=== PATIENT | male | born 1950 | race Caucasian/White ===

== ENCOUNTER 2023-03-17 04:07 | Outpatient (CLI) | payer OTHER, SELFPAY ==
--- OUTSIDE RECORDS SUMMARY | 2023-03-24 08:27 | XMS_ITS | Referral Summary ---
Author Name Unknown Organization [facility] Address [address] [place] [id number] Care Team Providers Care Forest Technician Name Role Phone [facility] Primary Care Provider Allergies Active Allergy Reactions Criticality Noted Date Comments Nuts 04/22/2017 Medications Medication Sig Dispensed Refills Start Date End Date Status LISINOPRIL PO Take 2.5 mg by mouth daily 0 Active tamsulosin (FLOMAX) 0.4 MG capsule Take 0.4 mg by mouth daily 0 Active Active Problems Problem Noted Date Diagnosed Date Renal failure 04/11/2017 Social History Tobacco Use Types Packs/Day Years Used Date Smoking Tobacco: Never Smokeless Tobacco: Never Alcohol Use Standard Drinks/Week Comments No 0 (1 standard drink = 0.6 oz pur e alcohol) Sex and Gender Information Value Date Recorded Sex Assigned at Not on file Gender Identity Not on file Sexual Orientation Not on file Last Filed Vital Signs Vital Sign Reading Time Taken Comments Blood Pressure 153/101 04/22/2017 7:43 AM SIDE HEMMER Pulse 73 04/21/2017 10:40 AM SIDE HEMMER Temperature 36.6 ??C (97.8 ??F) 04/22/2017 2:59 AM CS T Respiratory Rate 18 04/22/2017 2:59 AM SIDE HEMMER Oxygen Saturation 97% 04/22/2017 2:59 AM SIDE HEMMER Inhaled Oxygen Concentration - - Weight 117.9 kg (260 lb) 04/22/2017 2:59 AM SIDE HEMMER Height 182.9 cm (6') 04/22/2017 2:59 AM SIDE HEMMER Body Mass Index 35.26 04/22/2017 2:59 AM SIDE HEMMER Plan of Treatment Not on file Advance Directives For more information, please contact: [phone] Documents on File Type Date Recorded Patient Training Administrator Expl anation Advance Directives and Living Will 04/11/2017 4:52 PM HEALTHCARE DIRECTIVE 09-09-11 Latest Code Status on File Code Status Date Activated Date Inactivated Comments Full Code 04/13/2017 9:59 AM Code Status History Code Status Date Activated Date Inactivated Comments DNR/DNI 04/11/2017 1:47 PM 04/13/2017 9:59 AM Care Teams Forest Technician Relationship Specialty Start Date End Date Clinic, [place], [place] PCP - General 04/11/17
--- OUTSIDE RECORDS SUMMARY | 2023-03-24 08:27 | XMS_ITS | Referral Summary ---
Author Name Unknown Organization [facility] Address [address] [place] [address] Care Team Providers Care Qc Analyst Name Role Phone Elsewhere, Pcp Primary Care Provider Unavailabl e Source Comments Patient records contain information from all sites at [facility]. For routine questions regarding patient records, call [phone] during business hours, M-F 8:00 AM - 5:00 PM Central Time. Record requests for emergency care only can be directed to [phone] at any time.[facility] Allergies No known active allergies Medications Medication Sig Dispensed Refills Start Date End Date Status tamsulosin (FLOMAX) 0.4 mg 24 hr capsule Take 0.4 mg by mouth daily. 0 Active ascorbic acid, vitamin C, (VITAMIN C) 500 mg tablet Take 1 tablet (500 mg total) by mouth daily. 90 tablet 3 01/28/2022 Active benzonatate (TESSALON PERLES) 100 mg capsule Take 1 capsule (100 mg total) by mouth 3 (three) times a day. 20 capsule 0 01/28/2022 Active zinc sulfate (ZINCATE) 220 (50 mg zinc) capsule Take 1 capsule (220 mg total) by mouth daily with breakfast. 30 capsule 0 01/28/2022 Active Active Problems Problem Noted Date Diagnosed Date Hernia Inguinal Left 01/27/2022 Diarrhea 01/25/2022 Last Assessment & Plan: C-d iff pending 01/26 C-diff negative. Pancreatitis Acute 01/25/2022 Last Assessment & Plan: CT of abdomen and Chest. 01/26 pending Influenza 01/24/2022 Last Assessment & Plan: Hard to breath 01/25/2201/26 on high flow oxygen. Wants to go home, slept poor. 01/[address] 01/28 discharge home. Pneumonia 01/24/2022 Last Assessment & Plan: IV antibiotics. Switch to PO meds on 01/27 Hyponatremia 01/24/2022 Last Assessment & Plan: Change diet 01/26 to sodium unrestricted. Obesity Body Mass Index 30-39.9 Adult 01/24/2022 Hypoxia 01/24/2022 Last Assessment & Plan: 01/25 high flow oxygen Hypertension Essential Primary 01/24/2022 Last Assessment & Plan: 01/25 low 01/26 BP normal now 01/27 hold BP pill Social History Tobacco Use Types Packs/Day Years Used Date Smoking Tobacco: Never Tobacco Cessation:Counseling Given: Not Answered Nutrition Answer Date Recorded Nutrition: EVOO Fat Source Unknown 01/24 Nutrition: Servings of Fruits/Vegetables per Day Not on file 01/24/2022 Dental Answer Date Recorded Dental: Regular Dentist Unknown 01/25/20 Sex and Gender Information Value Date Recorded Sex Assigned at Not on file Gender Identity Not on file Sexual Orientation Not on file Last Filed Vital Signs Vital Sign Reading Time Taken Comments Blood Pressure 137/83 01/28/2022 8:12 AM DIRECTOR SOFTWARE QUALITY ASSURANCE Pulse 54 01/28/2022 8:12 AM DIRECTOR SOFTWARE QUALITY ASSURANCE Temperature 36.9 ??C (98.4 ??F) 01/28/2022 8:12 AM CS T Respiratory Rate 29 01/28/2022 8:12 AM DIRECTOR SOFTWARE QUALITY ASSURANCE Oxygen Saturation 94% 01/28/2022 8:12 AM DIRECTOR SOFTWARE QUALITY ASSURANCE Inhaled Oxygen Concentration - - Weight 111 kg (244 lb 11.4 oz) 01/24/2022 5:19 P M DIRECTOR SOFTWARE QUALITY ASSURANCE Height 182.9 cm (6') 01/24/2022 5:19 PM DIRECTOR SOFTWARE QUALITY ASSURANCE Body Mass Index 33.19 01/24/2022 5:19 PM DIRECTOR SOFTWARE QUALITY ASSURANCE Plan of Treatment Not on file Advance Directives For more information, please contact: [phone] Latest Code Status on File Code Status Date Activated Date Inactivated Comments Full Code 01/24/2022 6:47 PM 01/28/2022 2:07 PM Question Answer Comments Full Code: Discussed Code Status History Code Status Date Activated Date Inactivated Comments Full Code 01/24/2022 6:45 PM 01/24/2022 6:47 PM Question Answer Comments Full Code: Discussed Care Teams Qc Analyst Relationship Specialty Start Date End Date Elsewhere, Pcp PCP - General 02/08/18
--- OUTSIDE RECORDS SUMMARY | 2023-03-24 08:27 | XMS_ITS | Encounter Summary ---
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 Affairs Organization Department of [facility] Address [address] [place] [address] Support Name Relationship Address Phone DOREEN WAGNER Next of Kin [address] [place] [phone] DOREEN Emergency Contact [address] [place] [phone] Insurance Providers: All historical and current Section Date Range: From patient's date of to the date document was created. This section includes the names of all active insurance providers for the patient. Insurance Provider Type of Coverage Plan Name Start of Policy Coverage End of Policy Coverage Group Number Member ID Insurance Provider's Telephone Number Policy [place]'s Name Patient's Relationship to Policy [place] [facility] MEDICARE ADVANTAGE MCR ([facility]) June 26, 2016 [id number] CARSONJOAN ROWELL PATIENT [facility] MEDICARE ADVANTAGE MCR ([facility]) June 26, 2016 [id number] JOAN WAGNER KARSTEN PATIENT [facility] ([facility]) MEDICARE ADVANTAGE MCR ([facility]) June 26, 2016 [id number] JOAN WAGNER PATIENT Selected Encounter This section includes the information on record at ID for the Encounter. Date/Time Encounter Type Encounter Description Reason Provider Source July 23, 2022 12:10 PM OFF/OP EST MAY X REQ PHY/QHP ANESTHESIA PRE/POST-OP CONSULT ICD-10-CM R52 Pain, unspecified SAMMY SHAFFER Encounter Template Text not used by ID Assessments - Encounter Diagnoses This section includes the primary and secondary diagnoses documented for the Encounter. Date/Time Primary/Secondary Diagnosis Diagnosis Name Provider Source July 23, 2022 12:14 PM PRIMARY Pain, unspecified SAMMY SHAFFER [facility] Plan of Treatment: Future Appointments (+ 6 months) and Future Tests (+/- 45 days) The Plan of Treatment section includes future care activities for the patient [facility] This section includes future appointments and future orders which are active, pending or scheduled. Future Appointments This section includes appointments that were scheduled to occur 6 months from the date of the Encounter, up to a maximum of 20 appointments. The data comes from all [facility]. Appointment Date/Time Appointment Type Appointme nt Facility Name Jul 28, 2022 10:45 AM AMBULATORY - MEDICINE [facility] Aug 13, 2022 06:13 PM AMBULATORY - MEDICINE [facility] Aug 23, 2022 09:30 AM AMBULATORY - SURGERY [facility] Aug 23, 2022 09:45 AM AMBULATORY - NONE [facility] Aug 23, 2022 10:30 AM AMBULATORY - MEDICINE [facility] Aug 23, 2022 10:31 AM AMBULATORY - MEDICINE [facility] Sep 06, 2022 10:15 AM AMBULATORY - SURGERY [facility] Oct 25, 2022 07:00 AM AMBULATORY - NONE [facility] Oct 25, 2022 07:30 AM AMBULATORY - SURGERY [facility] Oct 25, 2022 09:00 AM AMBULATORY SURGERY [facility] Active, Pending, and Scheduled Orders This section includes a listing of several types of active, pending, and scheduled orders, including clinic medications orders, diagnostic test orders, procedure orders and consult orders; where the start date of the order is 45 days before the date of the Encounter or 45 days after the date of theEncounter. The data comes from all [facility]. Test Date/Time Test Type Test Details Facility Name Jun 12, 2022 12:00 AM Laboratory - Chemistry Order COMPREHENSIVE METABOLIC PANEL+MG PLASMA ONCO SP ONCE [facility] Jun 12, 2022 12:00 AM Laboratory - Chemistry Order CBC & DIFF BLOOD ONCO SP ONCE [facility] Jun 12, 2022 12:00 AM Laboratory - Chemistry Order TSH W/REFLEX TO FREE T4 PLASMA ONCO SP ONCE [facility] July 14, 2022 12:00 AM Laboratory - Blood Bank Order ABO/RH - LAB BLOOD [facility] July 14, 2022 02:05 PM Laboratory - Blood Bank Order TYPE & SCREEN - LAB BLOOD [facility] Aug 07, 2022 11:23 AM Laboratory - Chemistry Order DRUG SCREEN PANEL,URINE URINE ONCE [facility] Aug 23, 2022 10:47 AM Laboratory - Chemistry Order URINALYSIS URINE ER STAT [facility] Lab Results: +/- 30 days of the encounter This section includes the Chemistry and Hematology Lab Results on record with ID for the patient. Radiology Reports and Pathology Reports are provided separately, in subsequent sections. Lab Results This section contains the Chemistry/Hematology Results that were resulted 30 days before or 30 daysafter the date of the Encounter. Date/Time Source Result Type Result - Unit Interpretation Reference Range Comment July 19, 2022 04:40 PM [facility] FINGERSTICK GLUCOSE Specimen Type: BLOOD Comment: Save Result Nurse Notified Ordering Provider: MACKENZIE COTTER Report Released Date/Time: July 19, 2022 05:00 PM Reporting Lab: [facility] [phone] Performing Lab: [facility] [address] FINGERSTICK GLUCOSE 132 70-100 July 19, 2022 07:13 AM [facility] COMPREHENSIVE METABOLIC PANEL+MG Specimen Type: PLASMA No comment entered. Ordering Provider: MACKENZIE COTTER Report Released Date/Time: July 18, 2022 05:40 PM Reporting Lab: [facility] [address] Performing Lab: [facility] [address] CREATININE 0.9 0.7-1.2 UREA NITROGEN 24 8-26 GLUCOSE 129 H 70-100 SODIUM 136 136-145 POTASSIUM 4.1 3.5-5.1 CHLORIDE 104 98-107 CO2 28 22-29 CALCIUM 8.0 L 8.4-10.2 PROTEIN,TOTAL 5.0 L 6.0-8.3 ALBUMIN 2.9 L 3.5-5.2 BILIRUBIN, TOTAL 1.0 0.2-1.2 MAGNESIUM 1.8 1.6-2.6 ANION GAP 4 L 5-15 ALKALINE PHOSPHATASE 49 40-150 ALT/SGPT 11 See_Commen t AST/SGOT 20 See_Commen t .CREAT EGFR(CKD-EPI) 90 See_Commen t July 19, 2022 07:13 AM [facility] IRON GROUP Specimen Type: SERUM No comment entered. Ordering Provider: MACKENZIE COTTER Report Released Date/Time: July 18, 2022 05:40 PM Reporting Lab: [facility] [phone] Performing Lab: [facility] [address] IRON 28 L 65-175 TIBC,CALCULATE D 223 L 250-425 FERRITIN 73.7 21.8-274.7 IRON SATURATION 13 L 20-50 TRANSFERRIN 178 163-382 July 19, 2022 07:13 AM [facility] CBC Specimen Type: BLOOD No comment entered. Ordering Provider: MACKENZIE COTTER Report Released Date/Time: July 18, 2022 05:40 PM Reporting Lab: [facility] [address] Performing Lab: [facility] [address] WBC 7.73 4.0-11.0 RBC 2.42 L 4.6-6.2 HGB 8.2 L 13.5-17.9 HCT 23.8 L 41-54 MCV 98.3 80-100 MCH 33.9 H 27-33 MCHC 34.5 32.0-37.5 PLT 155 150-400 MPV 9.6 7.4-10.4 RDW 13.5 11.5-14.5 July 19, 2022 05:44 AM [facility] FINGERSTICK GLUCOSE Specimen Type: BLOOD Comment: Save Result Nurse Notified Ordering Provider: MACKENZIE COTTER Report Released Date/Time: July 19, 2022 11:54 AM Reporting Lab: [facility] [phone] Performing Lab: [facility] [address] FINGERSTICK GLUCOSE 137 70-100 July 18, 2022 10:51 PM [facility] FINGERSTICK GLUCOSE Specimen Type: BLOOD Comment: Save Result Nurse Notified Ordering Provider: MACKENZIE COTTER Report Released Date/Time: July 18, 2022 11:06 PM Reporting Lab: [facility] [address] Performing Lab: [facility] [address] FINGERSTICK GLUCOSE 163 70-100 July 17, 2022 06:51 AM [facility] BASIC METABOLIC PANEL+MG Specimen Type: PLASMA No comment entered. Ordering Provider: DANG VALLE R Report Released Date/Time: July 16, 2022 09:37 AM Reporting Lab: [facility] [address] Performing Lab: [facility] [address] CREATININE 0.8 0.7-1.2 UREA NITROGEN 23 8-26 GLUCOSE 107 H 70-100 SODIUM 139 136-145 POTASSIUM 3.9 3.5-5.1 CHLORIDE 106 98-107 CO2 28 22-29 CALCIUM 9.1 8.4-10.2 MAGNESIUM 1.9 1.6-2.6 ANION GAP 5 5-15 .CREAT EGFR(CKD-EPI) >90 See_Commen t July 17, 2022 06:51 AM [facility] PROTHROMBIN TIME/INR Specimen Type: PLASMA No comment entered. Ordering Provider: DANG VALLE R Report Released Date/Time: July 16, 2022 09:37 AM Reporting Lab: [facility] [address] Performing Lab: [facility] [address] .INR 1.0 0.8-1.1 .PT 11.5 9.4-12.5 July 17, 2022 06:51 AM [facility] CBC Specimen Type: BLOOD No comment entered. Ordering Provider: DANG VALLE R Report Released Date/Time: July 16, 2022 09:37 AM Reporting Lab: [facility] [address] Performing Lab: [facility] [address] WBC 6.05 4.0-11.0 RBC 3.77 L 4.6-6.2 HGB 12.7 L 13.5-17.9 HCT 36.0 L 41-54 MCV 95.5 80-100 MCH 33.7 H 27-33 MCHC 35.3 32.0-37.5 PLT 179 150-400 MPV 9.4 7.4-10.4 RDW 13.2 11.5-14.5 July 13, 2022 11:22 AM [facility] COVID-19 AND FLU/RSV DIAG PANEL(CEPHEID) Specimen Typ e: NASOPHARYNGEAL Comment: Cepheid GeneXpert (618) Ordering Provider: WHITNEY ANDERSON Report Released Date/Time: July 13, 2022 11:04 AM Reporting Lab: [facility] [address] Performing Lab: [facility] [address] COVID-19 (CEPHEID) Not Detected Not Detected INFLUENZA A (PCR) Not Detected Not Detected INFLUENZA B (PCR) Not Detected Not Detected RSV (PCR) Not Detected Not Detected July 13, 2022 11:00 AM [facility] C-REACTIVE PROTEIN Specimen Type: SERUM Comment: Automated Differential Performed Ordering Provider: WHITNEY ANDERSON Report Released Date/Time: July 13, 2022 11:04 AM Reporting Lab: [facility] [address] Performing Lab: [facility] [address] C-REACTIVE PROTEIN 1.17 <5.00 July 13, 2022 11:00 AM [facility] PROTHROMBIN TIME/INR Specimen Type: PLASMA No comment entered. Ordering Provider: WHITNEY ANDERSON Report Released Date/Time: July 13, 2022 11:04 AM Reporting Lab: [facility] [address] Performing Lab: [facility] [address] .INR 0.9 0.8-1.1 .PT 11.1 9.4-12.5 July 13, 2022 11:00 AM [facility] SED RATE Specimen Type: BLOOD No comment entered. Ordering Provider: WHITNEY ANDERSON Report Released Date/Time: July 13, 2022 11:04 AM Reporting Lab: [facility] [address] Performing Lab: [facility] [address] SED RATE 10 5-15 July 13, 2022 11:00 AM [facility] CBC & DIFF Specimen Type: BLOOD Comment: Automated Differential Performed Ordering Provider: WHITNEY ANDERSON Report Released Date/Time: July 13, 2022 11:04 AM Reporting Lab: [facility] [address] Performing Lab: [facility] [address] WBC 8.82 4.0-11.0 RBC 3.89 L 4.6-6.2 HGB 13.1 L 13.5-17.9 HCT 37.5 L 41-54 MCV 96.4 80-100 MCH 33.7 H 27-33 MCHC 34.9 32.0-37.5 PLT 182 150-400 MPV 9.6 7.4-10.4 NEUT 84.0 LYMPHS 7.5 MONO 7.7 EOSINO 0.2 BASO 0.3 RDW 13.2 11.5-14.5 ABS LYMPH 0.66 L 1.0-4.0 ABS MONO 0.68 0.1-1.0 ABS NEUT 7.40 2.0-7.7 ABS EOS 0.02 0-0.5 ABS BASO 0.03 0-0.2 IG(META,MYELO, PRO) 0.3 ABS IMMATURE GRAN 0.03 0-0.1 July 13, 2022 11:00 AM [facility] COMPREHENSIVE METABOLIC PANEL+MG Specimen Type: PLASMA Comment: Automated Differential Performed Ordering Provider: WHITNEY ANDERSON Report Released Date/Time: July 13, 2022 11:04 AM Reporting Lab: [facility] [address] Performing Lab: [facility] [address] CREATININE 1.0 0.7-1.2 UREA NITROGEN 16 8-26 GLUCOSE 129 H 70-100 SODIUM 139 136-145 POTASSIUM 4.3 3.5-5.1 CHLORIDE 106 98-107 CO2 26 22-29 CALCIUM 9.2 8.4-10.2 PROTEIN,TOTAL 6.8 6.0-8.3 ALBUMIN 3.9 3.5-5.2 BILIRUBIN, TOTAL 1.2 0.2-1.2 MAGNESIUM 2.2 1.6-2.6 ANION GAP 7 5-15 ALKALINE PHOSPHATASE 73 40-150 ALT/SGPT 17 <55 AST/SGOT 18 <34 .CREAT EGFR(CKD-EPI) 79 >60 Social History: Smoking Status (Most current) and Tobacco Use (All prior to encounter date) This section includes the most current, and the historical, smoking and tobacco- related health factors from the ID facility where the Encounter took place. Current Smoking Status This section includes the most current smoking, or tobacco-related health factor, from the ID facility where the Encounter took place. Date/Time Current Smoking Status Comment Facil juan josé May 10, 2022 09:15 AM VA-TOBACCO FORMER USER [facility] Tobacco Use History This section includes a history of the smoking, or tobacco-related health factors, that were collected on or before the date of the Encounter. The data comes from the ID facility where the Encounter took place. Date/Time Smoking Status/Tobacco Use Comment F acility May 10, 2022 09:15 AM ID-TOBACCO QUIT 15 YRS OR MORE [facility] May 11, 2021 09:15 AM VA-TOBACCO FORMER USER [facility] May 11, 2021 09:15 AM ID-TOBACCO QUIT 15 YRS OR MORE [facility] Nov 22, 2018 01:36 PM VA-TOBACCO NEVER USED [facility] Nov 12, 2017 07:35 AM FORMER TOBACCO USER 7Y OR GREATE R [facility] Nov 06, 2016 09:05 AM FORMER TOBACCO USER 7Y OR GREATE R [facility] Sep 27, 2015 09:42 AM FORMER TOBACCO USER 7Y OR GREATE R [facility] Sep 25, 2014 07:55 AM FORMER TOBACCO USER 7Y OR GREATE R [facility] Sep 08, 2013 07:48 AM FORMER TOBACCO USER 7Y OR GREATE R [facility] July 09, 2012 09:20 AM FORMER TOBACCO USE >1Y <7Y [facility] Jun 06, 2011 07:53 AM FORMER TOBACCO USE >1Y <7Y [facility] Sep 09, 2009 03:03 PM FORMER TOBACCO USE >1Y <7Y [facility] Aug 11, 2008 01:06 PM FORMER TOBACCO USE <1Y [facility] Sep 19, 2007 02:52 PM CURRENT TOBACCO USER [facility] Sep 03, 2006 03:32 PM CURRENT TOBACCO USER [facility] Advance Directives: All historical and current Section Date Range: From patient's date of to the date document was created. This section includes ALL of a patient's completed or amended ID Advance and Rescinded Directives. The entries below indicate that a directive exists for the patient, but an actual copy is not included with this document. The data comes from all [facility]. Date Advance Directives Provider Source Mar 18, 2003 ADVANCE DIRECTIVE [facility] Radiology Reports: +/- 30 days of the encounter Radiology Reports For cases when an order for radiology services may have been completed prior to the date of the Encounter, the report list includes the Radiology Reports that were completed up to 30 days before dateof the Encounter. For cases when an order for radiology services may have been completed after the date of the Encounter, the report list also includes the Radiology Reports that were completed up to30 days after date of the Encounter. The data comes from all ID treatment facilities. Date/Time Radiology Report Provider Source July 20, 2022 07:50 AM CHEST 1 VIEW: MARYJO WAGNER [id number] -1950 M Exm Date: JULY 20, 2022@07:50 Req Phys: MACKENZIE COTTER Pat Loc: 07-20-2022@08:26 Img Loc: MAIN X-RAY Service: PRIMARY CARE - MED OFFICE (Case [id number] COMPLETE) CHEST 1 VIEW (RAD Detailed) CPT:82068 Proc Modifiers : PORTABLE EXAM Reason for Study: see below. thanks. Clinical History: [place] IS NOT under investigation for COVID-19 or is COVID-19 negative Please further evaluate for acute airspace disease given o2 requirement. Thanks. Responsible provider name and phone number to notify for critical findings if other than user placing the order and pager listed below: User placing orders pager: [phone] same LAST CREATININE 0.9 (07/19/22) Report Status: Verified Date Reported: JULY 20, 2022 Date Verified: JULY 20, 2022 AlephD E-Sig:/ES/JAMIE MIGUEL MD Report: EXAM: CHEST 1 VIEW HISTORY: see below. thanks. Reason for Study: see below. thanks. [place] IS NOT under investigation for COVID-19 or is COVID-19 negative Please further evaluate for acute airspace disease given o2 requirement. Thanks. Responsible provider name and phone number to notify for critical findings if other than user placing the order and pager listed below: User placing orders pager: [phone] same LAST CREATININE 0. COMPARISON: Chest CT on April 13, 2022 Impression: Large body habitus and lordotic view does decrease the diagnostic quality of imaging. No evidence of focal infiltrate or large pleural effusion. Calcified granuloma in the left lung is stable and clinically insignificant. Cardiac silhouette is grossly within normal limits. No evidence of large pneumothorax. Primary Interpreting Staff: JAMIE MIGUEL MD, RADIOLOGIST (Insurance Administrative Assistant) /JAMIE FRANCES [facility] July 18, 2022 12:59 PM ELBOW LEFT 2 VIEWS: MARYJO WAGNER [id number] -1950 M Exm Date: JULY 18, 2022@12:59 Req Phys: LEIF BALBUENA Loc: OR-PACU/07-18-2022@13:59 Img Loc: MAIN X-RAY Service: ZZSURGICAL SERVICE (Case [id number] COMPLETE) ELBOW LEFT 2 VIEWS (RAD Detailed) CPT:88081 Proc Modifiers : PORTABLE EXAM, OPERATING ROOM EXAM Reason for Study: post-op Clinical History: post-op Report Status: Verified Date Reported: JULY 18, 2022 Date Verified: JULY 18, 2022 Insurance Administrative Assistant E-Sig:/ES/JAKUB LEE MD Report: EXAM: ELBOW LEFT 2 VIEWS 07/18/2022 REASON FOR STUDY: post-op COMPARISON: 07/13/2022 Impression: There has been interval medial and lateral plate and screw fixation of the distal humeral shaft fracture with cement filling the area of previous intramedullary bubbly lucency. Long screw with washer has been placed through the olecranon. Osseous alignment is near-anatomic. Embolization coils in the soft tissues of the medial distal arm. Postsurgical gas in the posterior soft tissues of the arm. Skin jennifer along the posterior arm and elbow. Primary Interpreting Staff: JAKUB LEE MD, RADIOLOGIST (Insurance Administrative Assistant) /[facility] JAKUB LEE [facility] July 18, 2022 07:30 AM FLUORO UP TO 1 HR PHYSICIAN TIME: MARYJO WAGNER DIRK [id number] [facility]-1950 M Exm Date: JULY 18, 2022@07:30 Req Phys: LEIF BALBUENA [facility]13:14 Img Loc: MAIN X-RAY Service: PRIMARY CARE - MED OFFICE (Case [id number] COMPLETE) FLUORO UP TO 1 HR PHYSICIAN TIME (RAD Detailed) CPT:10459 Proc Modifiers : PORTABLE EXAM, OPERATING ROOM EXAM, LEFT Reason for Study: Left distal humerous ORIF Clinical History: OR 7 Pathologic distal humeral shaft fracture Responsible provider name and phone number to notify for critical findings if other than user placing the order and pager listed below: User placing orders pager: Henry BALBUENA [phone] LAST CREATININE 0.8 (07/17/22) Report Status: Electronically Filed Date Reported: JULY 18, 2022 Report: Impression: Please see the full report for this procedure in CPRS patient progress notes. Fluoro guidance was provided during this procedure, but the study was not reviewed or verified by a [facility] radiologist. The radiation exposure dose has been recorded in the patient's chart. If you are unable to view this data, please contact the Imaging Department. VERIFIED BY: / *ELECTRONICALLY FILED* [facility] July 17, 2022 03:28 PM ABDOMINAL AORTOGRAM (P): MARYJO WAGNER [id number] -1950 M Exm Date: JULY 17, 2022@15:28 Req Phys: MALCOM LANGLEY [facility] Loc: 07-17-2022@15:54 Img Loc: INTERVENTIONAL RADIOLOGY Service: PRIMARY CARE - MED OFFICE (Case [id number] COMPLETE) ANGIOGRAPHY EXTREMITY UNILAT S&I (ANI Detailed) CPT:49236 Reason for Study: codes (Case 528 COMPLETE) IR AORTOGRAPHY ABDOMINAL W/O RUNO(ANI Detailed) CPT:00349 (Case 529 COMPLETE) IR FOREIGN BODY REMOVAL INTRAVASC(ANI Detailed) CPT:57034 (Case 532 COMPLETE) IR NEEDLE/INTRACATH PLACEMENT EXT(ANI Detailed) CPT:38681 (Case 533 COMPLETE) IR PLACEMENT OCCLUSIVE DEVICE SAM(ANI Detailed) CPT:G0269 Clinical History: codes Report Status: Verified Date Reported: JULY 17, 2022 Date Verified: JULY 17, 2022 Insurance Administrative Assistant E-Sig:/ES/MALCOM LANGLEY MD Report: RADIOLOGIST: Malcom Langley M.D. PROCEDURES: 1. Ultrasound guided right common femoral artery access. 2. Catheterization of left subclavian and brachial arteries. 3. Left brachial artery angiogram. 4. Left upper extremity hand runoff. 5. Selective catheterization of first order branches of left brachial artery. 6. Angiogram, particle and coil embolization of first order branch of left brachial artery. 7. Coil embolization of medial collateral branch. 8. Snare retrieval of left brachial embolization coil. 9. Catheterization, angiogram and attempted embolization of profunda brachii artery. 10. Attempted catheterization of first order branch of the brachial artery. 11. Completion left upper extremity angiogram and runoff. 12. Closure of right GRAVEL SCREENER with Angio-Seal device. HISTORY: Metastatic renal cell carcinoma, possible fracture of distal left humerus. Preoperative embolization for orthopedic surgery. CONSENT AND LABS: The procedure was carefully discussed with the patient and all questions answered. Appropriate informed consent was obtained. FLUOROSCOPY TIME: 65 minutes. RADIATION DOSE: 1338 mGy. SEDATION: General anesthesia PROCEDURE: After informed consent, the patient was placed supine on the fluoroscopy table. Right groin prepped and draped in a usual sterile fashion. 1% Lidocaine was used for local anesthesia. Under ultrasound guidance, right common femoral artery access was obtained with a micropuncture needle. Under fluoroscopic guidance the micropuncture needle was exchanged for the micropuncture sheath over a guidewire. Sheath removed over guidewire and a 5 cuban vascular sheath advanced over guidewire into the artery. An H1 catheter was advanced along with the guidewire into the thoracic arch and the left subclavian artery was selected. Catheter and the guidewire were advanced into the left brachial artery. The 5 Hong Konger sheath was exchanged for a 6 Hong Konger sheath that was advanced into the left axillary artery. Left brachial angiogram was then performed. The lytic metastatic lesion in the distal left humeral diaphysis demonstrated unremarkable hyperemia and arterial perfusion via multiple branches. Most notably two prominent first order branches from the distal brachial artery perfuses the majority of the tumor mass. Additionally there is perfusion from the profunda brachii artery and the radial recurrent artery. Runoff to the left hand was performed demonstrating incomplete palmar arch perfused via the radial artery. A microcatheter and microguidewire were then advanced through the base catheter and the dominant first order branch from the distal brachial artery was selectively catheterized and angiogram was performed. This first order branch further gives rise to numerous tortuous second order branches that perfuses approximately 60-70 percent of the tumor mass. Position of the catheter was confirmed under fluoroscopy and embolization was performed using 300-500 um embospheres followed by 500-700 um embospheres. During the critical embolization, a medial collateral branch likely communicating with the recurrent ulnar artery was identified. This branch was then selectively catheterized using the microcatheter and embolized using a 3 mm Tornado coil. Additional embolization of the tumor was then performed until stasis was achieved. The main trunk of this first order branch was then embolized using 3-4 mm Tornado and Vivi coils. The microcatheter was slowly pulled back and a 5 mm Vivi coil was pushed, however this resulted in inadvertent dislodgment of the catheter from the branch into the brachial artery resulting in partial coiling of the brachial artery. The coil was then successfully retrieved using a snare catheter. Patient was heparinized to prevent thrombus formation. Follow-up angiogram demonstrates no flow in the embolized first order branch and significantly decreased tumor blush in the distal humeral diaphysis. The second first order branch arising from the distal brachial artery was then identified and catheterization was attempted numerous times, however the branch arises at an acute angle and additionally has and immediately tortuous course which prevented getting adequate access with the guidewire. The profunda brachii artery was then identified and catheterized. Angiogram was performed and tumor blush was identified in the upper part of the lytic lesion from numerous distal branches. A microguidewire and catheter were then advanced towards the distal profunda brachii artery. This however resulted in severe spasm of the artery. This also caused the microcatheter to adhere to the arterial wall preventing from retracting the catheter. Attempts to extract the catheter resulted in fracture of the microcatheter. The catheter and the wire were then coaxially retracted. Catheterization of the profunda brachii artery was again attempted but was unsuccessful. Follow-up angiogram of the brachial artery showed no opacification of the profunda brachii artery likely due to severe spasm. At this point no further attempts to catheterize or embolize the tumor was made. Catheterization or embolization of the recurrent radial artery was again attempted due to high risk for distal embolization. Completion angiogram of the left hand was performed demonstrating patent opacification of the palmar arch and digital arteries. Sheath and catheters were removed and GRAVEL SCREENER arteriotomy was closed using Angioseal. There is patent hemostasis. No bleeding or hematoma noted. Sterile dressing applied. 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 Primary Interpreting Staff: MALCOM LANGLEY MD, INTERVENTIONAL RADIOLOGIST (Insurance Administrative Assistant) /MALCOM HE [facility] July 17, 2022 07:30 AM RENAL ARTERY EMBOLIZATION (P): BERNARDMARYJO GLOVERTARA [id number] -1950 M Exm Date: JULY 17, 2022@07:30 Req Phys: WESTON VASQUEZ Pat Loc: 07-17-2022@15:46 Img Loc: INTERVENTIONAL RADIOLOGY Service: PRIMARY CARE - MED OFFICE (Case 130 COMPLETE) IR TRANSCATH EMBOLIZATION W/ANGIO(ANI Detailed) CPT:34049 Reason for Study: embolization of RCC mets to left humerus (Case 131 COMPLETE) IR ARTERIAL EMBOLIZATION OTHER TH(ANI Detailed) CPT:32908 (Case 132 COMPLETE) IR US GUIDANCE VASCULAR ACCESS (ANI Detailed) CPT:10836 Clinical History: [facility] IS NOT under investigation for COVID-19 or is COVID-19 negative 72M w PMH RCC with mets to L humerus with pathologic fx of Left distal humerus. Plan to go to OR for fixation and excision of mass pending an embolization Responsible provider name and phone number to notify for critical findings if other than user placing the order and pager listed below: User placing orders pager: [phone] LAST CREATININE 1.0 (07/13/22) Report Status: Verified Date Reported: JULY 17, 2022 Date Verified: JULY 17, 2022 Insurance Administrative Assistant E-Sig:/ES/MALCOM LANGLEY MD Report: RADIOLOGIST: Malcom Langley M.D. PROCEDURES: 1. Ultrasound guided right common femoral artery access. 2. Catheterization of left subclavian and brachial arteries. 3. Left brachial artery angiogram. 4. Left upper extremity hand runoff. 5. Selective catheterization of first order branches of left brachial artery. 6. Angiogram, particle and coil embolization of first order branch of left brachial artery. 7. Coil embolization of medial collateral branch. 8. Snare retrieval of left brachial embolization coil. 9. Catheterization, angiogram and attempted embolization of profunda brachii artery. 10. Attempted catheterization of first order branch of the brachial artery. 11. Completion left upper extremity angiogram and runoff. 12. Closure of right GRAVEL SCREENER with Angio-Seal device. HISTORY: Metastatic renal cell carcinoma, possible fracture of distal left humerus. Preoperative embolization for orthopedic surgery. CONSENT AND LABS: The procedure was carefully discussed with the patient and all questions answered. Appropriate informed consent was obtained. FLUOROSCOPY TIME: 65 minutes. RADIATION DOSE: 1338 mGy. SEDATION: General anesthesia PROCEDURE: After informed consent, the patient was placed supine on the fluoroscopy table. Right groin prepped and draped in a usual sterile fashion. 1% Lidocaine was used for local anesthesia. Under ultrasound guidance, right common femoral artery access was obtained with a micropuncture needle. Under fluoroscopic guidance the micropuncture needle was exchanged for the micropuncture sheath over a guidewire. Sheath removed over guidewire and a 5 cuban vascular sheath advanced over guidewire into the artery. An H1 catheter was advanced along with the guidewire into the thoracic arch and the left subclavian artery was selected. Catheter and the guidewire were advanced into the left brachial artery. The 5 Hong Konger sheath was exchanged for a 6 [place] Konger sheath that was advanced into the left axillary artery. Left brachial angiogram was then performed. The lytic metastatic lesion in the distal left humeral diaphysis demonstrated unremarkable hyperemia and arterial perfusion via multiple branches. Most notably two prominent first order branches from the distal brachial artery perfuses the majority of the tumor mass. Additionally there is perfusion from the profunda brachii artery and the radial recurrent artery. Runoff to the left hand was performed demonstrating incomplete palmar arch perfused via the radial artery. A microcatheter and microguidewire were then advanced through the base catheter and the dominant first order branch from the distal brachial artery was selectively catheterized and angiogram was performed. This first order branch further gives rise to numerous tortuous second order branches that perfuses approximately 60-70 percent of the tumor mass. Position of the catheter was confirmed under fluoroscopy and embolization was performed using 300-500 um embospheres followed by 500-700 um embospheres. During the critical embolization, a medial collateral branch likely communicating with the recurrent ulnar artery was identified. This branch was then selectively catheterized using the microcatheter and embolized using a 3 mm Tornado coil. Additional embolization of the tumor was then performed until stasis was achieved. The main trunk of this first order branch was then embolized using 3-4 mm Tornado and Vivi coils. The microcatheter was slowly pulled back and a 5 mm Vivi coil was pushed, however this resulted in inadvertent dislodgment of the catheter from the branch into the brachial artery resulting in partial coiling of the brachial artery. The coil was then successfully retrieved using a snare catheter. Patient was heparinized to prevent thrombus formation. Follow-up angiogram demonstrates no flow in the embolized first order branch and significantly decreased tumor blush in the distal humeral diaphysis. The second first order branch arising from the distal brachial artery was then identified and catheterization was attempted numerous times, however the branch arises at an acute angle and additionally has and immediately tortuous course which prevented getting adequate access with the guidewire. The profunda brachii artery was then identified and catheterized. Angiogram was performed and tumor blush was identified in the upper part of the lytic lesion from numerous distal branches. A microguidewire and catheter were then advanced towards the distal profunda brachii artery. This however resulted in severe spasm of the artery. This also caused the microcatheter to adhere to the arterial wall preventing from retracting the catheter. Attempts to extract the catheter resulted in fracture of the microcatheter. The catheter and the wire were then coaxially retracted. Catheterization of the profunda brachii artery was again attempted but was unsuccessful. Follow-up angiogram of the brachial artery showed no opacification of the profunda brachii artery likely due to severe spasm. At this point no further attempts to catheterize or embolize the tumor was made. Catheterization or embolization of the recurrent radial artery was again attempted due to high risk for distal embolization. Completion angiogram of the left hand was performed demonstrating patent opacification of the palmar arch and digital arteries. Sheath and catheters were removed and GRAVEL SCREENER arteriotomy was closed using Angioseal. There is patent hemostasis. No bleeding or hematoma noted. Sterile dressing applied. 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 Primary Interpreting Staff: MALCOM LANGLEY MD, INTERVENTIONAL RADIOLOGIST (Insurance Administrative Assistant) /MALCOM HE [facility] July 14, 2022 06:44 AM HUMERUS LEFT MINIMUM 2 VIEWS: MARYJO WAGNER [id number] -1950 M Ex Date: JULY 14, 2022@06:44 Req Phys: PEDROHERBERTJAIRO [facility] Loc: 07-14-2022@07:13 Img Loc: MAIN X-RAY Service: PRIMARY CARE - MED OFFICE (Case [id number] COMPLETE) HUMERUS LEFT MINIMUM 2 VIEWS (RAD Detailed) CPT:42396 Reason for Study: post reduction Clinical History: Report Status: Verified Date Reported: JULY 14, 2022 Date Verified: JULY 14, 2022 Insurance Administrative Assistant E-Sig: Report: HUMERUS LEFT MINIMUM 2 VIEWS HISTORY: post reduction COMPARISON: 07/13/2022 TECHNIQUE: 2 view(s) of the humerus, submitted to the [facility] National Teleradiology Program (NTP) for interpretation. FINDINGS: Overlying cast material somewhat obscures fine bone detail. Interval reduction of the distal humeral metadiaphyseal pathological fracture with slight interval improvement in alignment. There is persistent soft tissue swelling. No new fracture is identified. The bones are diffusely osteopenic. 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 Impression: Slight interval improvement in alignment of the pathological fracture of the distal humeral metadiaphysis status post closed reduction and casting. The distal humeral metadiaphyseal lesion is osteolytic and aggressive appearing with primary differential considerations including metastases versus multiple myeloma. A primary bone tumor is possible but considered less likely. READING PHYSICIAN: Xavier Merrill MD -[phone] 07/14/2022 5:11 PDT [facility] National Teleradiology Program [phone] (For Medical Practitioner Use Only) Attention Patients / Veterans: If you have questions or concerns about these test results, please contact your ordering provider or primary care team. Primary Interpreting Staff: RADIOLOGY,OUTSIDE SERVICE, Staff Physician / RADIOLOGY,OUTSIDE SERVICE [facility] July 13, 2022 10:07 AM HUMERUS LEFT MINIMUM 2 VIEWS: MARYJO WAGNER [id number] -1950 M Ex Date: JULY 13, 2022@10:07 Req Phys: WHITNEY ANDERSON Pat Loc: [facility] EMERGENCY DEPT WALK-IN (Re Img Loc: MAIN X-RAY Service: Unknown (Case 2152 COMPLETE) HUMERUS LEFT MINIMUM 2 VIEWS (RAD Detailed) CPT:05589 Proc Modifiers : LEFT Reason for Study: L arm pain Clinical History: IS NOT under investigation for COVID-19 or is COVID-19 negative Atraumatic left upper extremity pain that is located midshaft humerus distally to the mid forearm. Clinical concern for dislocation versus fracture versus bone mets Responsible provider name and phone number to notify for critical findings if other than user placing the order and pager listed below: User placing orders pager: [phone] LAST CREATININE 0.8 (05/10/22) Report Status: Verified Date Reported: JULY 13, 2022 Date Verified: JULY 13, 2022 Insurance Administrative Assistant E-Sig:/ES/ALBINA COWAN MD, FACR, CCD Report: EXAMINATION: HUMERUS LEFT MINIMUM 2 VIEWS 07/13/2022 10:07 AM INDICATION: L arm pain COMPARISON: None. FINDINGS: A large lytic lesion appears to be associated with the diametaphyseal region of the distal left humerus. This is suspicious for a potential metastasis. An associated fracture is seen involving the distal diaphysis of the left humerus. Approximately 5 mm of displacement seen at the fracture site. Minimal angulation. Impression: Pathologic fracture distal humerus. Primary Interpreting Staff: ALBINA COWAN MD, FACR, STAFF RADIOLOGIST (Insurance Administrative Assistant) /KYMF ALBINA COWAN [facility] July 13, 2022 10:07 AM ELBOW LEFT 3 OR MORE VIEWS: MARYJO WAGNER [id number] -1950 M Exm Date: JULY 13, 2022@10:07 Req Phys: MONICAWHITNEYCHRISTOPHER MARIN Pat Loc: [facility] EMERGENCY DEPT WALK-IN (Re Img Loc: MAIN X-RAY Service: Unknown (Case [id number] COMPLETE) ELBOW LEFT 3 OR MORE VIEWS (RAD Detailed) CPT:05806 Proc Modifiers : LEFT Reason for Study: L arm pain Clinical History: [facility] IS NOT under investigation for COVID-19 or is COVID-19 negative Atraumatic left upper extremity pain that is located midshaft humerus distally to the mid forearm. Clinical concern for dislocation versus fracture versus bone mets Responsible provider name and phone number to notify for critical findings if other than user placing the order and pager listed below: User placing orders pager: [phone] LAST CREATININE 0.8 (05/10/22) Report Status: Verified Date Reported: JULY 13, 2022 Date Verified: JULY 13, 2022 Insurance Administrative Assistant E-Sig:/ES/ALBINA COWAN MD, FACR, CCD Report: EXAMINATION: ELBOW LEFT 3 OR MORE VIEWS 07/13/2022 10:07 AM INDICATION: L arm pain COMPARISON: Left humerus radiographs July 13, 2022. FINDINGS: A large lytic lesion is again seen associated with the diametaphyseal region of the distal left humerus. This is suspicious for a metastasis. An associated pathologic fracture again noted with approximately 5 mm of displacement at the fracture site. Impression: Pathologic fracture distal left humerus. . Primary Interpreting Staff: ALBINA COWAN MD, FACR, STAFF RADIOLOGIST (Insurance Administrative Assistant) /BSF CHAPO,ALBINA S [facility] July 13, 2022 10:07 AM FOREARM LEFT 2 VIEWS: MARYJO WAGNER [id number] -1950 M Exm Date: JULY 13, 2022@10:07 Req Phys: WHITNEY ANDERSON Pat Loc: [facility] EMERGENCY DEPT WALK-IN (Re Img Loc: MAIN X-RAY Service: Unknown (Case [id number] COMPLETE) FOREARM LEFT 2 VIEWS (RAD Detailed) CPT:20361 Proc Modifiers : LEFT Reason for Study: L arm pain Clinical History: IS NOT under investigation for COVID-19 or is COVID-19 negative Atraumatic left upper extremity pain that is located midshaft humerus distally to the mid forearm. Clinical concern for dislocation versus fracture versus bone mets Responsible provider name and phone number to notify for critical findings if other than user placing the order and pager listed below: User placing orders pager: [phone] LAST CREATININE 0.8 (05/10/22) Report Status: Verified Date Reported: JULY 13, 2022 Date Verified: JULY 13, 2022 Insurance Administrative Assistant E-Sig:/ES/ALBINA COWAN MD, FACR, CCD Report: EXAMINATION: FOREARM LEFT 2 VIEWS 07/13/2022 10:07 AM INDICATION: L arm pain COMPARISON: Left elbow radiographs July 13, 2022. FINDINGS: A partially visualized lytic lesion again seen associated with the distal left humerus suspicious for metastasis. The radius and ulna appear to be intact. Impression: The radius and ulna appear to be intact. Partially visualized lytic lesion distal left humerus again noted suspicious for metastasis. Primary Interpreting Staff: ALBINA COWAN MD, FACR, STAFF RADIOLOGIST (Insurance Administrative Assistant) /ALBINA NATHAN [facility] Pathology Reports: +/- 30 days of the encounter Pathology Reports For cases when an order for pathology services may have been completed prior to the date of the Encounter, the report list includes the Pathology Reports that were completed up to 30 days before dateof the Encounter. For cases when an order for pathology services may have been completed after the date of the Encounter, the report list also includes the Pathology Reports that were completed up to30 days after date of the Encounter. The data comes from all ID treatment facilities. Date/Time Pathology Report Provider Source July 13, 2022 04:06 PM LR SURGICAL PATHOL OGY REPORT: LOCAL TITLE: LR SURGICAL PATHOLOGY REPORT STANDARD TITLE: PATHOLOGY REPORT DATE OF NOTE: JULY 21, 2022@14:37:27 ENTRY DATE: JULY 21, 2022@14:37:27 AUTHOR: JIAN SANDOVAL EXP COSIGNER: URGENCY: STATUS: COMPLETED $APHDR Reporting Lab: [facility] [CLIA# [id number]] [place] [address] - - - - - - - - - - - - - - - - - - - - - - - - - - - - - - - - - - - - - - - - MEDICAL RECORD SURGICAL PATHOLOGY - - - - - - - - - - - - - - - - - - - - - - - - - - - - - - - - - - - - - - - - PATHOLOGY REPORT Accession No. [id number] [id number] - - - - - - - - - - - - - - - - - - - - - - - - - - - - - - - - - - - - - - - - $TEXT Submitted by: LEIF BALBUENA Date obtained: July 18, 2022 - - - - - - - - - - - - - - - - - - - - - - - - - - - - - - - - - - - - - - - - Specimen (Received July 19, 2022 08:20): 1. LEFT TRICEPS TENDON-F/S 2. LEFT DISTAL HUMERUS-F/S 3. LEFT HUMERUS METS - - - - - - - - - - - - - - - - - - - - - - - - - - - - - - - - - - - - - - - - BRIEF CLINICAL HISTORY: OPERATIVE PROCEDURE(S): Left distal humerus ORIF, excision of tumor, Olecranon osteotomy - - - - - - - - - - - - - - - - - - - - - - - - - - - - - - - - - - - - - - - - PREOPERATIVE DIAGNOSIS: pathologic distal humeral shaft fracture - - - - - - - - - - - - - - - - - - - - - - - - - - - - - - - - - - - - - - - - OPERATIVE FINDINGS: - - - - - - - - - - - - - - - - - - - - - - - - - - - - - - - - - - - - - - - - POSTOPERATIVE DIAGNOSIS: pathologic distal humeral shaft fracture Surgeon/physician: LEIF BALBUENA MD Attending Surgeon: Leif Balbuena MD =-=-=-=-=-=-=-=-=-=-=-=-=- =-=-=-=-=-=-=-=-=-=-=-=-=- =-=-=-=-=-=-=-=-=-=-=-=-=- = - - - - - - - - - - - - - - - - - - - - - - - - - - - - - - - - - - - - - - - - PATHOLOGY REPORT Accession No. [id number] - - - - - - - - - - - - - - - - - - - - - - - - - - - - - - - - - - - - - - - - GROSS DESCRIPTION: The requisition form and specimen(s) identification is confirmed. SPEC. 1 is labeled left triceps tendon. Submitted is a soft clay tissue fragment measuring 2.0 x 1.5 x 0.6 cm. The fragment was entirely submitted for frozen section. CE. SPEC. 2 is labeled left distal humerus. Submitted is a soft clay tissue fragment measuring 1.5 x 0.8 x 0.7 cm. The fragment was entirely submitted for frozen section. CE. SPEC. 3 is labeled left humerus mets. Submitted are multiple pendleton-clay to pink-clay soft tissue fragments measuring 3.5 x 3.5 x 2.0 cm in aggregate. The tissue is entirely submitted in A-D. CE. (D). [facility] DIAGNOSES: SPEC. 1 - left triceps tendon--no tumor seen (by Dr. KERR). SPEC. 2 - left distal humerus--no tumor seen (by Dr. KERR). Patient identity was confirmed and the diagnoses were discussed with Dr. Balbuena by Dr. KERR. MICROSCOPIC DESCRIPTION: SPECS. 1, 2, 3. Microscopic examination performed. RS. DIAGNOSES: SPEC. 1 Left triceps tendon, excision-- - No evidence of malignancy SPEC. 2 Left distal humerus, excision-- - No evidence of malignancy SPEC. 3 Left humerus, excision-- - Fragments of soft tissue, skeletal muscle, and bone with metastatic clear cell renal cell carcinoma /sangita/ JIAN SANDOVAL STAFF PATHOLOGIST, PATHOLOGY & LABORATORY [facility] [place] Signed July 21, 2022@14:37 Performing Laboratory: Surgical Pathology Report Performed By: [facility] [CLIA# [id number]] [place] [address] $FTR - - - - - - - - - - - - - - - - - - - - - - - - - - - - - - - - - - - - - - - - (End of report) JIAN SANDOVAL MD rks Date July 21, 2022 - - - - - - - - - - - - - - - - - - - - - - - - - - - - - - - - - - - - - - - - MAYRJO WAGNER STANDARD FORM 515 ID:[id number] SEX:M :1950 AGE: 72 LOC:[facility] PATHOLOGY PRO FEE ADM:June DX:PATHOLOGIC FX LF HUMERUS PCP: Leif Balbuena MD /sangita/ JIAN SANDOVAL STAFF PATHOLOGIST, PATHOLOGY & LABORATORY [facility] [place] Signed: 07/21/2022 14:37 JIAN SANDOVAL [facility] Encounter Notes: All associated encounter notes This section contains the clinical notes associated to the Encounter. Date/Time Encounter Note(s) Provider Source July 23, 2022 12:10 PM ANESTHESIOLOGY NOT E: LOCAL TITLE: ANESTHESIA PROGRESS NOTE STANDARD TITLE: ANESTHESIOLOGY NOTE DATE OF NOTE: JULY 23, 2022@12:10 ENTRY DATE: JULY 23, 2022@12:10:07 AUTHOR: SAMMY SHAFFER EXP COSIGNER: URGENCY: STATUS: COMPLETED Followed up with patient who was discharged 07/21/2022. Patient had a left infraclavicular nerve catheter in place and was bolused with ropivacaine and removed on 07/21/2022 by the anesthesia pain service. I called the patient today and left voicemail. Patient's returned phone call and stated her nusband's numbness had resolved, that his pain was under control and they were satisfied with his care. /sangita/ SAMMY SHAFFER CRNA CERTIFIED REGISTERED NURSE BUSINESS PROJECT ANALYST Signed: 07/23/2022 12:14 Receipt Acknowledged By: * AWAITING SIGNATURE * CHARLES ABARCA,SAMMY Payton [facility]
--- OUTSIDE RECORDS SUMMARY | 2023-03-24 08:27 | XMS_ITS | Clinical Summary ---
Author Name Unknown Organization [facility] Address [address] [place] [address] Care Team Providers Care Superintendent Commissary Name Role Phone [facility] Primary Care Provider Allergies Active Allergy Reactions [...] Comments Blood Pressure 153/101 04/22/2017 7:43 AM THUMB SEWER Pulse 73 04/21/2017 10:40 AM THUMB SEWER Temperature 36.6 ??C (97.8 ??F) 04/22/2017 2:59 AM CS T Respiratory Rate 18 04/22/2017 2:59 AM THUMB SEWER Oxygen Saturation 97% 04/22/2017 2:59 AM THUMB SEWER Inhaled Oxygen Concentration - - Weight 117.9 kg (260 lb) 04/22/2017 2:59 AM THUMB SEWER Height 182.9 cm (6') 04/22/2017 2:59 AM THUMB SEWER Body Mass Index 35.26 04/22/2017 2:59 AM THUMB SEWER Plan of Treatment Not on file Advance Directives For more information, please contact: [phone] Documents on File Type Date Recorded Patient Mat Man Expl anation Advance Directives and Living Will 04/11/2017 4:52 PM HEALTHCARE DIRECTIVE 09-09-11 Latest Code Status on File Code Status Date Activated Date Inactivated Comments Full Code 04/13/2017 9:59 AM Code Status History Code Status Date Activated Date Inactivated Comments DNR/DNI 04/11/2017 1:47 PM 04/13/2017 9:59 AM Care Teams Superintendent Commissary Relationship Specialty Start Date End Date Clinic, [place], [place] PCP - General 04/11/17
--- OUTSIDE RECORDS SUMMARY | 2023-03-24 08:27 | XMS_ITS ---
Author Name Unknown Organization [facility] Address [address] [place] [address] Care Team Providers Care Aviation Medicine Specialist Name Role Phone Unavailable Unavailable Unavailable Surgery Details Not on file Complications Check Surgery Details section. Procedure Estimated Blood Loss Check Surgery Details section. Procedure Findings Check Surgery Details section. Procedure Specimens Taken Check Surgery Details section.
--- OUTSIDE RECORDS SUMMARY | 2023-03-24 08:27 | XMS_ITS | Continuity of Care Document ---
Author Name [facility] Organization [facility] Care Team Providers Care Brass Instrument Repair Technician Name Role Phone [facility] Unavailable Unavailable Problems Combined list of problems from Department of Defense and Veterans Affairs facilities. It does not include entries that were removed or entered in error. Problem Status Onset Date Problem Type Date of Resolution Comments Source Adjustment Disorder with Mixed Anxiety and Depressed Mood (ICD-9-CM 309.28) Active Condition [facility] Benign hypertension Active Condition [facility] Dysmetabolic Syndrome X (ICD-9-CM 277.7) [address] [facility] Elevated Prostate Specific Antigen (PSA) (ICD-9-CM 790.93) Active Condition [facility] LIVER CHEM, ABNORMAL Active Condition [facility] Malignant tumor of kidney parenchyma Active Condition [facility] Malignant tumor of prostate (SNOMED CT 896851844) Active Condition [facility] Multinodular goiter Active Condition [facility] OBESITY, UNSP Active Condition [facility] Other and unspecified Sleep Apnea (ICD-9-CM 780.57) Active Condition [facility] Polyp of colon (SNOMED CT 44374606) Active Condition July 09, 2012 Entered By: DAMON OLIVEIRA RA Comment: 2011, repeat in 7-10 years, see report [facility] Retention of urine Active Condition [facility] Secondary malignant neoplasm of pancreas Active Condition [facility] Diagnosis: ICD-10-CM C64.2 Malignant neoplasm of left kidney, except renal pelvis Active Diagnosis [facility] Diagnosis: ICD-10-CM K08.409 Partial loss of teeth, unspecified cause, unspecified class Active Diagnosis [facility] Admit Reason: AMS, BRAIN METS Active Diagnosis [facility] Diagnosis: ICD-10-CM C79.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 Active Diagnosis [facility] Diagnosis: ICD-10-CM Z48.89 Encounter for other specified surgical aftercare Active Diagnosis [facility] Diagnosis: ICD-10-CM R33.9 Retention of urine, unspecified Active Diagnosis [facility] Diagnosis: ICD-10-CM M79.602 Pain in left arm [facility] Diagnosis: ICD-10-CM R52 Pain, unspecified [facility] Diagnosis: ICD-10-CM R26.89 Other abnormalities of gait and mobility Active [facility] Diagnosis: ICD-10-CM Z71.9 Counseling, unspecified Active Diagnosis [facility] Diagnosis: ICD-10-CM Z73.6 Limitation of activities due to disability Active Diagnosis [facility] Diagnosis: ICD-10-CM S42.402A Unsp fracture of lower end of left humerus, init for clos fx Active Diagnosis [facility] Diagnosis: ICD-10-CM Z01.818 Encounter for other preprocedural examination Active Diagnosis [facility] Diagnosis: ICD-10-CM 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, l humerus, init Active Diagnosis [facility] Diagnosis: ICD-10-CM Z86.008 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 Active Diagnosis [facility] Diagnosis: ICD-10-CM Z86.010 Personal history of colonic polyps Active Diagnosis [facility] Admit Reason: PATHOLOGIC FX LF HUMERUS Active Diagnosis [facility] Diagnosis: ICD-10-CM K02.62 Dental caries on smooth surface penetrating into dentin Active Diagnosis [facility] Diagnosis: ICD-10-CM C61 Malignant neoplasm of prostate Active Diagnosis [facility] Medications Combined list of outpatient medications from Department of Defense and Veterans Affairs facilities.Medications provided include 1) outpatient medications from the last 15 months, and 2) patient-reported medications. Medication Details Route Status Patient Instructions Prescription Expires Prescription Number Last Dispense Date Ordering Provider Order Date Source ACETAMINOPH EN 325MG TAB TAKE TWO TABLETS BY MOUTH EVERY 6 HOURS NEEDED FOR PAIN ORALLY 08/20/2022 [id number] Henry LEYVA 2022 [facility] ASPIRIN 81MG TAB,EC TAKE TWO TABLETS BY MOUTH EVERY DAY TO PREVENT BLOOD CLOTS TAKE UNTIL TOLD OKAY TO DISCONTI NUE BY ORTHOPED ICS ORALLY 09/19/2022 [id number] 3 Henry LEYVA 2022 [facility] CALCITRIOL 0.25MCG CAP TAKE TWO CAPSULES BY MOUTH TWICE A DAY FOR PREVENTI ON OF OSTEOPOR OSIS ORALLY ACTIVE 11/12/2023 [id number] 3 KINGSLEYCT NA 2022 [place] [facility] CALCITRIOL 0.25MCG CAP TAKE TWO CAPSULES BY MOUTH TWICE A DAY ORALLY DISCONT INUED 11/22/2022 [id number] SARAH KIMTOU A 2022 [place] [facility] DEXAMETHASO NE 4MG TAB TAKE ONE TABLET BY MOUTH TWICE A DAY FOR INFLAMMA TION , AT 6:00AM AND 12:00PM ORALLY DISCONT INUED 11/22/2022 [id number] 3 SARAH KIMTOU A 2022 [place] [facility] DEXAMETHASO NE 4MG TAB TAKE ONE TABLET BY MOUTH TWICE A DAY FOR INFLAMMA TION , AT 6:00AM AND 12:00PM ORALLY 02/09/2023 [id number] 3 [place] GENEVIEVE 2022 [place] [facility] LEVETIRACET AM 500MG TAB TAKE ONE TABLET BY MOUTH TWICE A DAY FOR SEIZURE PREVENTI ON ORALLY ACTIVE 11/12/2023 [id number] 3 [place] GENEVIEVE 2022 [place] [facility] LEVETIRACET AM 500MG TAB TAKE ONE TABLET BY MOUTH TWICE A DAY FOR SEIZURE PREVENTI ON ORALLY DISCONT INUED 11/22/2022 [id number] 3 SARAH KIMTOFlavio A 2022 [place] [facility] LISINOPRIL 20MG TAB TAKE ONE TABLET BY MOUTH EVERY DAY FOR BLOOD PRESSURE ORALLY 02/09/2023 [id number] 3 JAROCHO GONZALEZ E 2021 [place] [facility] LISINOPRIL 40MG TAB TAKE ONE-HALF TABLET BY MOUTH EVERY DAY FOR BLOOD PRESSURE ORALLY DISCONT INUED (EDIT) 02/07/2023 [id number] 3 KSENIA MANN L 2022 [place] [facility] LISINOPRIL 40MG TAB TAKE ONE-HALF TABLET BY MOUTH EVERY DAY FOR BLOOD PRESSURE ORALLY DISCONT INUED 06/02/2022 [id number] [place]AC[place],KSENIA HARD L 2021 [facility] MULTIVITAMI NS CAP/TAB TAKE ONE TABLET BY MOUTH EVERY DAY ORALLY ACTIVE DIONNA ABREU 2006 [facility] NALOXONE HCL 4MG/SPRAY SOLN,SPRAY, NASAL SPRAY 1 DOSE IN ONE NOSTRIL NEEDED FOR UNRESPON SIVENESS THEN CALL 911 NOSTRI L 10/30/2022 [id number] 3 WYNN,HI NA 2022 [facility] OXYCODONE HCL 5MG TAB TAKE ONE TABLET BY MOUTH Q6 NEEDED FOR PAIN ORALLY DISCONT INUED 08/20/2022 [id number] 3 Henry LEYVA 2022 [facility] OXYCODONE HCL 5MG TAB TAKE ONE TABLET BY MOUTH THREE TIMES A DAY NEEDED FOR PAIN ORALLY 08/31/2022 [id number] 3 WYNN,HI NA 2022 [facility] PANTOPRAZOL E NA 40MG TAB,EC TAKE ONE TABLET BY MOUTH EVERY DAY FOR STOMACH ACID ORALLY ACTIVE 11/12/2023 [id number] 3 WYNN,HI NA 2022 [facility] PANTOPRAZOL E NA 40MG TAB,EC TAKE ONE TABLET BY MOUTH EVERY DAY FOR STOMACH ACID ORALLY DISCONT INUED 11/22/2022 [id number] 3 SARAH KIM 2022 [facility] POLYETHYLEN E GLYCOL 3350 PWDR,ORAL TAKE 17 GRAMS BY MOUTH EVERY DAY NEEDED FOR CONSTIPA TION ORALLY 08/20/2022 [id number] 3 Henry LEYVA 2022 [facility] PREGABALIN 25MG CAP,ORAL TAKE ONE CAPSULE BY MOUTH THREE TIMES A DAY FOR PAIN TAPER PAIN IMPROVES ORALLY 08/20/2022 [id number] 3 Henry LEYVA 2022 [facility] SODIUM FLUORIDE 1.1% TOOTHPASTE BRUSH SMALL AMOUNT MOUTH EVERY MORNING AND AT BEDTIME ON TOOTHBRU SH, BRUSH FOR 2 MINUTES. ORALLY ACTIVE 10/26/2023 [id number] 3 MAGO SCHWARZ 2022 [facility] SULFAMETHOX AZOLE 800MG/TRIME THOPRIM 160MG TAB TAKE 1 TABLET BY MOUTH SUNDAY, AND SUNDAY FOR INFECTIO N PREVENTI ON ORALLY ACTIVE 11/12/2023 [id number] 3 AMANDA WYNN NA 2022 [facility] SULFAMETHOX AZOLE 800MG/TRIME THOPRIM 160MG TAB TAKE 1 TABLET BY MOUTH SUNDAY, Y AND SUNDAY FOR INFECTIO N PREVENTI ON ORALLY DISCONT INUED 11/22/2022 [id number] 3 SARAH KIM AKTEENA A 2022 [facility] TAMSULOSIN HCL 0.4MG CAP TAKE ONE CAPSULE BY MOUTH EVERY DAY ORALLY ACTIVE 11/07/2023 [id number] 3 AMANDA WYNN NA 2022 [facility] TAMSULOSIN HCL 0.4MG CAP TAKE ONE CAPSULE BY MOUTH EVERY DAY ORALLY DISCONT INUED 11/03/2023 [id number] 3 [place] NA 2022 [facility] Allergies, Adverse Reactions, Alerts Combined list of allergies from Department of Defense and Veterans Affairs facilities. It does not include entries that were removed or entered in error. Substance Category Reaction Severity Reaction type Status Date Reported Comments Source [place] Propensity to adverse reactions to food (finding) active 3 [facility] Immunizations Combined list of available immunizations from the Department of Defense and Veterans Affairs facilities. Immunization Series Date Given Administered By Site Reaction Lot Number CVX Code Drug Media Services Specialist Status Comments Source TD (ADULT) 2015 138 complet ed sanofi pasteur;u [id number]; [facility] TDAP 2004 115 complet ed [facility] TD(ADULT) UNSPECIFIED FORMULATION 2000 139 complet ed JASMIN JONES [facility] Results Combined list of recent chemistry, hematology and other laboratory results from Department of Defense and Veterans Affairs, ranging from 15 months to all on record, depending upon the facility. Order Name Results Value Reference Range Date Interpretation Specimen Comments Source PSA PROSTATE SPECIFIC AG [MASS/VOLU ME] IN SERUM OR PLASMA 7.53 <4.00 - 4.00 10/25 H Specimen Type: SERUM No comment entered. Ordering Provider: JOSY MURRY Report Released Date/Time: Apr 26, 2022 10:29 AM Reporting Lab: [facility] [address] Performing Lab: [facility] [address] [facility] URINALYS IS COLOR OF URINE YELLOW 08/24 Specimen Type: URINE No comment entered. Ordering Provider: DAMIR KIM Report Released Date/Time: Aug 24, 2022 09:34 AM Reporting Lab: [facility] [address] Performing Lab: [facility] [address] [facility] URINALYS IS SPECIFIC GRAVITY OF URINE 1.030 1.003 - 1.035 08/24 Specimen Type: URINE No comment entered. Ordering Provider: DAMIR KIM Report Released Date/Time: Aug 24, 2022 09:34 AM Reporting Lab: [facility] [address] Performing Lab: [facility] [address] [facility] URINALYS IS BILIRUBIN. TOTAL [PRESENCE] IN URINE BY TEST STRIP NEGATIVE 08/24 Specimen Type: URINE No comment entered. Ordering Provider: DAMIR KIM Report Released Date/Time: Aug 24, 2022 09:34 AM Reporting Lab: [facility] [address] Performing Lab: [facility] [address] [facility] URINALYS IS KETONES [MASS/VOLU ME] IN URINE BY TEST STRIP 1+ 08/24 Specimen Type: URINE No comment entered. Ordering Provider: JULIO,TAWAK ALITOU A Report Released Date/Time: Aug 24, 2022 09:34 AM Reporting Lab: [facility] [address] Performing Lab: [facility] [address] [place] [facility] URINALYS IS GLUCOSE [MASS/VOLU ME] IN URINE BY TEST STRIP NEGATIVE 08/24 Specimen Type: URINE No comment entered. Ordering Provider: DAMIR KIM Report Released Date/Time: Aug 24, 2022 09:34 AM Reporting Lab: [facility] [address] Performing Lab: [facility] [address] [place] [facility] URINALYS IS PROTEIN [MASS/VOLU ME] IN URINE BY TEST STRIP 200 08/24 Specimen Type: URINE No comment entered. Ordering Provider: DAMIR KIM Report Released Date/Time: Aug 24, 2022 09:34 AM Reporting Lab: [facility] [address] Performing Lab: [facility] [address] [place] [facility] URINALYS IS PH OF URINE BY TEST STRIP 6.5 5.0 - 8.0 08/24 Specimen Type: URINE No comment entered. Ordering Provider: DAMIR KIM Report Released Date/Time: Aug 24, 2022 09:34 AM Reporting Lab: [facility] [address] Performing Lab: [facility] [address] [place] [facility] URINALYS IS LEUKOCYTES [#/AREA] IN URINE SEDIMENT BY MICROSCOPY HIGH POWER FIELD >180 0 - 7 08/24 H Specimen Type: URINE No comment entered. Ordering Provider: DAMIR KIM Report Released Date/Time: Aug 24, 2022 09:34 AM Reporting Lab: [facility] [address] Performing Lab: [place] [address] [place] [facility] URINALYS IS BACTERIA [PRESENCE] IN URINE SEDIMENT BY LIGHT MICROSCOPY MODERATE 08/24 Specimen Type: URINE No comment entered. Ordering Provider: JULIO,TAWAK ALITOU A Report Released Date/Time: Aug 24, 2022 09:34 AM Reporting Lab: [facility] [address] Performing Lab: [facility] [address] [place] [facility] URINALYS IS ERYTHROCYT ES [#/AREA] IN URINE SEDIMENT BY MICROSCOPY HIGH POWER FIELD 59 0 - 3 08/24 H Specimen Type: URINE No comment entered. Ordering Provider: DAMIR KIM Report Released Date/Time: Aug 24, 2022 09:34 AM Reporting Lab: [facility] [address] Performing Lab: [facility] [address] [place] [facility] URINALYS IS APPEARANCE OF URINE EX.TURBI D 08/24 Specimen Type: URINE No comment entered. Ordering Provider: DAMIR KIM Report Released Date/Time: Aug 24, 2022 09:34 AM Reporting Lab: [facility] [address] Performing Lab: [facility] [address] [place] [facility] URINALYS IS EPITHELIAL CELLS.SQUA MOUS [#/AREA] IN URINE SEDIMENT BY MICROSCOPY HIGH POWER FIELD NONE SEEN 08/24 Specimen Type: URINE No comment entered. Ordering Provider: DAMIR KIM Report Released Date/Time: Aug 24, 2022 09:34 AM Reporting Lab: [facility] [address] Performing Lab: [facility] [address] [place] [facility] URINALYS IS HEMOGLOBIN [PRESENCE] IN URINE BY TEST STRIP 1+ 08/24 Specimen Type: URINE No comment entered. Ordering Provider: DAMIR KIM Report Released Date/Time: Aug 24, 2022 09:34 AM Reporting Lab: [facility] [address] Performing Lab: [facility] [address] [place] [facility] URINALYS IS NITRITE [PRESENCE] IN URINE BY TEST STRIP POSITIVE 08/24 Specimen Type: URINE No comment entered. Ordering Provider: DAMIR KIM Report Released Date/Time: Aug 24, 2022 09:34 AM Reporting Lab: [facility] [address] Performing Lab: [facility] [address] [place] [facility] URINALYS IS LEUKOCYTE CLUMPS [#/VOLUME] IN URINE BY AUTOMATED COUNT PRESENT 08/24 Specimen Type: URINE No comment entered. Ordering Provider: DAMIR KIM Report Released Date/Time: Aug 24, 2022 09:34 AM Reporting Lab: [facility] [address] Performing Lab: [facility] [address] [place] [facility] URINALYS IS LEUKOCYTE ESTERASE [PRESENCE] IN URINE BY TEST STRIP 500 08/24 Specimen Type: URINE No comment entered. Ordering Provider: DAMIR KIM Report Released Date/Time: Aug 24, 2022 09:34 AM Reporting Lab: [facility] [address] Performing Lab: [facility] [address] [place] [facility] ACT PART THROMBO TIME APTT IN PLATELET POOR PLASMA BY COAGULATIO N ASSAY 30.2 25.1 - 36.5 08/23 Specimen Type: PLASMA No comment entered. Ordering Provider: Serena SANCHEZ Report Released Date/Time: Aug 23, 2022 10:47 AM Reporting Lab: [facility] [address] Performing Lab: [facility] [address] [place] [facility] C-REACTI VE PROTEIN C REACTIVE PROTEIN [MASS/VOLU ME] IN SERUM OR PLASMA BY HIGH SENSITIVIT Y METHOD 3.14 08/23 Specimen Type: SERUM No comment entered. Ordering Provider: Serena SANCHEZ Report Released Date/Time: Aug 23, 2022 10:47 AM Reporting Lab: [facility] [address] Performing Lab: [facility] [address] [place] [facility] CARDIAC TROPONIN I TROPONIN I.CARDIAC [MASS/VOLU ME] IN SERUM OR PLASMA <0.028 08/23 Specimen Type: PLASMA No comment entered. Ordering Provider: Serena SANCHEZ Report Released Date/Time: Aug 23, 2022 10:47 AM Reporting Lab: [facility] [address] Performing Lab: [facility] [address] [place] [facility] LIPID PANEL,NO N-FASTIN G CHOLESTERO L [MASS/VOLU ME] IN SERUM OR PLASMA 129 08/23 Specimen Type: PLASMA No comment entered. Ordering Provider: Serena SANCHEZ Report Released Date/Time: Aug 23, 2022 10:47 AM Reporting Lab: [facility] [address] Performing Lab: [facility] [address] [place] [facility] LIPID PANEL,NO N-FASTIN G CHOLESTERO L IN HDL [MASS/VOLU ME] IN SERUM OR PLASMA 36 08/23 L Specimen Type: PLASMA No comment entered. Ordering Provider: Serena SANCHEZ Report Released Date/Time: Aug 23, 2022 10:47 AM Reporting Lab: [facility] [address] Performing Lab: [facility] [address] [place] [facility] LIPID PANEL,NO N-FASTIN G CHOLESTERO L IN LDL [MASS/VOLU ME] IN SERUM OR PLASMA BY RAUDEL Pederson 68 08/23 Specimen Type: PLASMA No comment entered. Ordering Provider: Serena SANCHEZ Report Released Date/Time: Aug 23, 2022 10:47 AM Reporting Lab: [facility] [address] Performing Lab: [facility] [address] [place] [facility] LIPID PANEL,NO N-FASTIN G CHOLESTERO L IN VLDL [MASS/VOLU ME] IN SERUM OR PLASMA BY CALCMELE Pederson 25 08/23 Specimen Type: PLASMA No comment entered. Ordering Provider: Serena SANCHEZ Report Released Date/Time: Aug 23, 2022 10:47 AM Reporting Lab: [facility] [address] Performing Lab: [facility] [address] [place] [facility] LIPID PANEL,NO N-FASTIN G CHOLESTERO L NON HDL [MASS/VOLU ME] IN SERUM OR PLASMA 93 08/23 Specimen Type: PLASMA No comment entered. Ordering Provider: Serena SANCHEZ Report Released Date/Time: Aug 23, 2022 10:47 AM Reporting Lab: [facility] [address] Performing Lab: [facility] [address] [place] [facility] LIPID PANEL,NO N-FASTIN G TRIGLYCERI DE [MASS/VOLU ME] IN SERUM OR PLASMA 123 08/23 Specimen Type: PLASMA No comment entered. Ordering Provider: Serena SANCHEZ Report Released Date/Time: Aug 23, 2022 10:47 AM Reporting Lab: [facility] [address] Performing Lab: [facility] [address] [place] [facility] PHOSPHOR US PHOSPHATE [MASS/VOLU ME] IN SERUM OR PLASMA 3.9 2.3 - 4.7 08/23 Specimen Type: PLASMA No comment entered. Ordering Provider: Serena SANCHEZ Report Released Date/Time: Aug 23, 2022 10:47 AM Reporting Lab: [facility] [address] Performing Lab: [facility] [address] [place] [facility] SED RATE ERYTHROCYT E SEDIMENTAT ION RATE 31 5 - 15 08/23 H Specimen Type: BLOOD No comment entered. Ordering Provider: Serena SANCHEZ Report Released Date/Time: Aug 23, 2022 10:47 AM Reporting Lab: [facility] [address] Performing Lab: [facility] [address] [place] [facility] TSH W/REFLEX TO FREE T4 THYROTROPI N [UNITS/VOL UME] IN SERUM OR PLASMA 1.54 0.35 - 4.94 08/23 Specimen Type: PLASMA No comment entered. Ordering Provider: Serena SANCHEZ Report Released Date/Time: Aug 23, 2022 10:47 AM Reporting Lab: [facility] [address] Performing Lab: [facility] [address] [place] [facility] Vital Signs Combined list of inpatient and outpatient Vital Signs from Department of Defense and Veterans Affairs, ranging from 12 months to all on record, depending upon the facility. Vital Sign Value Date Comments Source SYSTOLIC BLOOD PRESSURE 126 10/25/2022 07:40:06 [facility] DIASTOLIC BLOOD PRESSURE 71 10/25/2022 07:40:06 [facility] TEMPERATURE 97.8 10/25/2022 07:40:06 [facility] PULSE 73 10/25/2022 07:40:06 [facility] SYSTOLIC BLOOD PRESSURE 128 08/23/2022 10:34:00 [facility] DIASTOLIC BLOOD PRESSURE 72 08/23/2022 10:34:00 [facility] PULSE OXIMETRY 94% 08/23/2022 10:34:00 [facility] TEMPERATURE 98.2 08/23/2022 10:34:00 [facility] PULSE 63 08/23/2022 10:34:00 [facility] SYSTOLIC BLOOD PRESSURE 142 08/13/2022 18:16:00 [facility] DIASTOLIC BLOOD PRESSURE 84 08/13/2022 18:16:00 [facility] PULSE OXIMETRY 94% 08/13/2022 18:16:00 [facility] PAIN 9 08/13/2022 18:16:00 [facility] TEMPERATURE 97.5 08/13/2022 18:16:00 [facility] PULSE 82 08/13/2022 18:16:00 [facility] RESPIRATION 16 08/13/2022 18:16:00 [facility] SYSTOLIC BLOOD PRESSURE 106 07/28/2022 10:23:26 [facility] DIASTOLIC BLOOD PRESSURE 58 07/28/2022 10:23:26 [facility] PULSE OXIMETRY 97% 07/28/2022 10:23:26 [facility] WEIGHT 245 07/28/2022 10:23:26 [facility] BMI 33kg/m2 07/28/2022 10:23:26 [facility] PAIN 5 07/28/2022 10:23:26 [facility] HEIGHT 72 07/28/2022 10:23:26 [facility] TEMPERATURE 97.5 07/28/2022 10:23:26 [facility] PULSE 73 07/28/2022 10:23:26 SAK[facility] MALONELIS [facility] RESPIRATION 16 07/28/2022 10:23:26 [facility] SYSTOLIC BLOOD PRESSURE 115 07/21/2022 02:58:00 [facility] DIASTOLIC BLOOD PRESSURE 70 07/21/2022 02:58:00 [facility] PULSE OXIMETRY 93% 07/21/2022 02:58:00 [place] [facility] PAIN 3 07/21/2022 02:58:00 [facility] TEMPERATURE 98.2 07/21/2022 02[facility]58[facility] 07/21/2022 02:58:00 [facility] RESPIRATION 18 07/21/2022 02:58:00 [facility] Encounters Combined list of: 1) Encounters from Department of Veterans Affairs facilities going back up to thelast 18 months. 2) Encounters from the Department of Defense facilities going back up to 280 months. Location Location Details Encounter Type Encounter Number Reason For Visit Attending Provider ADM Date DC Date Status Disposition Source [facility] Outpatient Encounter [id number] 10/04 [facility] RESINBASED CMPST [id number] Diagnos is: ICD-10- CM K02.62 Dental caries on smooth surface penetra ting into dentin< br/> MULVAUGHN,A LEXANDER F 10/04 [facility] OFFICE O/P EST SF 10-19 MIN [id number] Diagnos is: ICD-10- CM C61 Maligna nt neoplas m of prostat e
RISK,NANETTE MIRAMONTES C 10/12 [facility] Outpatient Encounter [id number] 11/02 [facility] FIXED PROSTHODON TIC PROC [id number] Diagnos is: ICD-10- CM K02.62 Dental caries on smooth surface penetra ting into dentin< br/> MULLIKIN,A LEXANDER F 11/02 [facility] [place] [facility] ANTIGEN TESTING [id number] Diagnos is: ICD-10- CM K02.62 Dental caries on smooth surface penetra ting into dentin< br/> JACQUELINE DOBSON AM 12/12 [place] [facility] [place] [facility] Outpatient Encounter [id number] 02/01 [place] [facility] [place] [facility] Outpatient Encounter [id number] 02/07 [place] [facility] [place] [facility] ANTIGEN TESTING [id number] Diagnos is: ICD-10- CM K02.62 Dental caries on smooth surface penetra ting into dentin< br/> Monika SCHWARZANDER F 02/14 [facility] [place] [facility] Outpatient Encounter [id number] 04/13 [place] [facility] [place] [facility] OFFICE O/P EST LOW 20-29 MIN [id number] Diagnos is: ICD-10- CM 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, except renal pelvis< br/> NEGINJUDYJUDY 04/26 [place] [facility] [place] [facility] Outpatient Encounter [id number] 05/10 [place] [facility] [place] [facility] OFFICE O/P EST MOD 30-39 MIN [id number] Diagnos is: ICD-10- CM 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, except renal pelvis< br/> NORBERT WYNN A 05/10 [place] [facility] [place] [facility] Outpatient Encounter [id number] 05/10 [facility] [place] [facility] OFF/OP CONSLTJ NEW/[place] 55 [id number] Diagnos is: ICD-10- CM 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, except renal pelvis< br/> MUKHNARCISO,KORI MADDOX 05/17 [facility] Outpatient Encounter [id number] 05/17 [facility] HC PRO PHONE CALL 5-10 MIN [id number] Diagnos is: ICD-10- CM 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, except renal pelvis< br/> MCDONELL,W MIKAYLA 05/18 [facility] Outpatient Encounter [id number] 05/22 [facility] Outpatient Encounter [id number] SYSTEM,CIS -ARK 07/13 [facility] EMERGENCY DEPT VISIT [facility] [id number] Diagnos is: ICD-10- CM 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
ALEXIS ANDERSON 07/13 [facility] Outpatient Encounter [id number] 07/13 [facility] Outpatient Encounter [id number] 07/13 [facility] Inpatient Encounter [id number] Admit Reason: PATHOLO GIC FX LF HUMERUS
FOSSLAND,N ICHOLAS R 07/13 [facility] Inpatient Encounter [id number] Admit Reason: PATHOLO GIC FX LF HUMERUS
FOSSLAND,N ICHOLAS R 07/13 [facility] TREAT ELBOW FRACTURE [id number] Admit Reason: PATHOLO GIC FX LF HUMERUS
FOSSLAND,N ICHOLAS R 07/13 Discharge from inpatient treatment to the Service Connected (OPT-[place]) rolls[place] [facility] [place] [facility] En[facility] [id number] 07/[address] [place] [facility] [place] [facility] Encounter [id number] Bg VALLE 07/[address] [place] [facility] [place] [facility] Encounter [id number] 07/[address] [place] [place] [facility] Encounter [id number] 07/[address] [place] [facility] [place] [facility] In[place] Encounter [id number] SYSTEM,CIS -ARK 07/[address] [place] [facility] [place] [facility] Encounter [id number] 07/[address] [place] [facility] [place] [facility] Encounter [id number] 07/[address] [place] [facility] [place] [facility] Encounter [id number] SYSTEM,CIS -ARK 07/[address] [place] [facility] [place] [facility] Encounter [id number] 07/[address] [place] [facility] [place] [facility] Encounter [id number] SYSTEM,CIS -ARK 07/[address] [place] [facility] [place] [facility] Encounter [id number] 07/[address] [place] [facility] [place] [facility] En[facility] [id number] 07/16 [place] [facility] [place] [facility] Inpatient Encounter [id number] 07/16 [place] [facility] [place] [facility] Inpatient Encounter [id number] 07/17 [place] [facility] [place] [facility] Inpatient Encounter [id number] SYSTEM,CIS -ARK 07/17 [facility] OFFICE O/P EST HI 40-54 MIN [id number] Diagnos is: ICD-10- CM Z86.010 Persona l history of colonic polyps< br/> CARLOS DUNBAR F 07/17 [facility] Inpatient Encounter [id number] 07/17 [place] [facility] Inpatient Encounter [id number] SYSTEM,CIS -ARK 07/17 [facility] VASC EMBOLIZE/O CCLUDE ARTERY [id number] Diagnos is: ICD-10- CM 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
Marlee EAST II 07/17 [facility] OFFICE O/P EST HI 40-54 MIN [id number] Diagnos is: ICD-10- CM Z01.818 Encount er for other preproc edural examina tion
OLGA ABARCA 07/17 [facility] Inpatient Encounter [id number] 07/17 [place] [facility] Inpatient Encounter [id number] SYSTEM,CIS -ARK 07/18 [facility] [place] [facility] Inpatient Encounter [id number] 07/18 [facility] [place] [facility] Inpatient Encounter [id number] 07/18 [facility] OFFICE O/P EST MOD 30-39 MIN [id number] Diagnos is: ICD-10- CM Z01.818 Encount er for other preproc edural examina tion
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
FARZAD,JEFFR EY T 07/18 [facility] Inpatient Encounter [id number] SYSTEM,CIS -ARK 07/18 [facility] OFFICE O/P EST HI 40-54 MIN [id number] Diagnos is: ICD-10- CM Z01.818 Encount er for other preproc edural examina tion
ABARCA,OLGA E E 07/18 [facility] Inpatient Encounter [id number] SYSTEM,CIS -ARK 07/18 [facility] Inpatient Encounter [id number] 07/18 [facility] Inpatient Encounter [id number] 07/19 [facility] Inpatient Encounter [id number] SYSTEM,CIS -ARK 07/19 [facility] THERAPEUTI C ACTIVITIES [id number] Diagnos is: ICD-10- CM R26.89 Other abnorma lities of gait and mobilit y
CARMELLA MILLER CHAD 07/19 [facility] POSTOP FOLLOW-UP VISIT [id number] Diagnos is: ICD-10- CM S42.402 A Unsp fractur e of lower end of left humerus , init for clos fx
NEGIN CAAL 07/19 [facility] Inpatient Encounter [id number] 07/19 [facility] OT EVAL LOW COMPLEX 30 MIN [id number] [id number] Diagnos is: ICD-10- CM Z73.6 Limitat ion of activit ies due to disabil ity<br/ > Godfrey VÁSQUEZ 07/19 [facility] Inpatient Encounter [id number] [id number] Diagnos is: ICD-10- CM Z71.9 Immigration Officer ing, unspeci fied
JUSTIN TORRES 07/19 [facility] Inpatient Encounter [id number] 07/19 [facility] Inpatient Encounter [id number] SYSTEM,CIS -ARK 07/20 [facility] THERAPEUTI C EXERCISES [id number] Diagnos is: ICD-10- CM R26.89 Other abnorma lities of gait and mobilit y
WINTHROP,R ACHEL T 07/20 [place] [facility] [place] [facility] Inpatient Encounter [id number] 07/20 [place] [facility] [place] [facility] POSTOP FOLLOW-UP VISIT [id number] Diagnos is: ICD-10- CM M79.602 Pain in left arm<br/ > STEPHCO NSTANCE L 07/20 [place] [facility] [place] [facility] Inpatient Encounter [id number] 07/20 [place] [facility] [place] [facility] Inpatient Encounter [id number] SYSTEM,CIS -ARK 07/21 [facility] GAIT TRAINING THERAPY [id number] [id number] Diagnos is: ICD-10- CM R26.89 Other abnorma lities of gait and mobilit y
WINTHROP,R ACHEL T 07/21 [facility] [place] [facility] Inpatient Encounter [id number] 07/21 [place] [facility] [place] [facility] Inpatient Encounter [id number] 07/21 [place] [facility] [place] [facility] Inpatient Encounter [id number] 07/21 [place] [facility] [place] [facility] POSTOP FOLLOW-UP VISIT [id number] [id number] Diagnos is: ICD-10- CM M79.602 Pain in left arm<br/ > OLGA ABARCA 07/21 [facility] OFF/OP EST MAY X REQ PHY/QHP [id number] [id number] Diagnos is: ICD-10- CM Z48.89 Encount er for other specifi ed surgica l afterca re
Hortencia WILKES 07/22 [facility] OFF/OP EST MAY X REQ PHY/QHP [id number] Diagnos is: ICD-10- CM R52 Pain, unspeci fied
EILEEN SHAFFER T 07/23 [facility] OFFICE O/P EST HI 40-54 MIN [id number] [id number] Diagnos is: ICD-10- CM M79.602 Pain in left arm<br/ > NORBERT WYNN A 07/28 [facility] Outpatient Encounter [id number] 08/01 [facility] Outpatient Encounter [id number] 08/03 [facility] Outpatient Encounter [id number] 08/04 [facility] EMERGENCY DEPT VISIT LOW MDM [id number] [id number] Diagnos is: ICD-10- CM R33.9 Retenti on of urine, unspeci fied
Monika RANDOLPH NN T 08/13 [facility] Outpatient Encounter [id number] 08/15 [facility] Outpatient Encounter [id number] SYSTEM,CIS -ARK 08/22 [facility] Outpatient Encounter [id number] CHACE BOX 08/22 [facility] Outpatient Encounter [id number] SYSTEM,CIS -ARK 08/23 [facility] POSTOP FOLLOW-UP VISIT [id number] Diagnos is: ICD-10- CM Z48.89 Encount er for other specifi ed surgica l afterca re
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
TEAM,MED FOUR 08/23 Discharge from inpatient treatment to the Service Connected (OPT-LA) rolls. 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, except renal pelvis< br/> TARAS BARRAZA 08/24 [place] [facility] [place] [facility] Inpatient Encounter [id number] NABILA WELSH 08/24 [place] [facility] [place] [facility] Inpatient Encounter [id number] 08/24 [place] [facility] PRO PHONE CALL 5-10 MIN [id number] [id number] Diagnos is: ICD-10- CM 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, except renal pelvis< br/> GLOEGARY WhalenA S 08/24 [place] [facility] OFF/OP EST MAY X REQ PHY/QHP [id number] [id number] Diagnos is: ICD-10- CM 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, except renal pelvis< br/> GLOEGEARYA S 08/24 [place] [facility] [place] [facility] Inpatient Encounter [id number] 08/24 [place] [facility] SBSQ HOSP IP/OBS MODERATE 35 [id number] [id number] Diagnos is: ICD-10- CM 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, except renal pelvis< br/> THEA ROBLERO R 08/24 [facility] INTRAORAL PERIAPICAL FIRST [id number] [id number] Diagnos is: ICD-10- CM K08.409 Partial loss of teeth, unspeci fied cause, unspeci fied class<b r/> MULLIKIN,A LEXANDER F 09/06 [facility] Outpatient Encounter [id number] 09/07 [facility] TOPICAL FLUORIDE VARNISH [id number] [id number] Diagnos is: ICD-10- CM K08.409 Partial loss of teeth, unspeci fied cause, unspeci fied class<b r/> MULLIKIN,A LEXANDER F 10/25 [facility] OFFICE O/P EST MOD 30-39 MIN [id number] [id number] Diagnos is: ICD-10- CM 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 Procedure Procedure Type Code Date Perfomer Comments Marcelle e Left distal humerus ORIF, excision of tumor, Olecranon osteotomy TREAT ELBOW FRACTURE 44581 3 LEIF PANDA Other Procedure CPT Code(s): GR-SERVICE BY [facility] RESIDENT, LT-LEFT SIDE [facility] Social History Combined list of available smoking, tobacco, and other social history from Department of Defense and Veterans Affairs facilities. Social History Type Response Date Comment Marcelle e Tobacco smoking status [facility] CT-TOBACCO FORMER USER 05/10/2022 [facility] History of tobacco use CT-TOBACCO QUIT 1 5 YRS OR MORE 05/10/2022 [facility] History of tobacco use VA-TOBACCO FORMER USER 05/11/2021 [facility] History of tobacco use VA-TOBACCO NEVER USED 11/22/2018 [facility] History of tobacco use FORMER TOBACCO US ER 7Y OR GREATER 11/12/2017 [facility] History of tobacco use FORMER TOBACCO US ER 7Y OR GREATER 11/06/2016 [facility] History of tobacco use FORMER TOBACCO US ER 7Y OR GREATER 09/27/2015 [facility] History of tobacco use FORMER TOBACCO US ER 7Y OR GREATER 09/25/2014 [facility] History of tobacco use FORMER TOBACCO US ER 7Y OR GREATER 09/08/2013 [facility] History of tobacco use FORMER TOBACCO US E >1Y <7Y 07/09/2012 [facility] History of tobacco use FORMER TOBACCO US E >1Y <7Y 06/06/2011 [facility] History of tobacco use FORMER TOBACCO US E >1Y <7Y 09/09/2009 [facility] History of tobacco use FORMER TOBACCO USE <1Y 08/11/2008 [facility] History of tobacco use CURRENT TOBACCO USER 09/19/2007 [facility] History of tobacco use CURRENT TOBACCO USER 09/03/2006 [facility] Plan of Care List of future care activities from Department [facility] facilities. Additional future care activities may be listed in the Assessment and Plan section. Date/Time Care Activity Care Activity Detail Facili ty 03/23/2023 Consult Order [facility] Cons Job Press Feeder's Choice [facility] Advance Directives List of completed, amended, or rescinded Advance Directives on record at Department of [facility] Affairs facilities. An actual copy of the Directive is not included. Date Advance Directive Provider Source 03/18/2003 ADVANCE DIRECTIVE FARHAT EMLGAR [facility]
--- OUTSIDE RECORDS SUMMARY | 2023-03-24 08:27 | XMS_ITS | Encounter Summary ---
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 Vetera [facility] Organization Department of Vetera ns [facility] Address [address] [place] [address] Support Name Relationship Address Phone DOREEN WAGNER Next of Kin [address] [place] [phone] DOREEN Emergency Contact [address] [place] [phone] Insurance Providers: All historical and current [...] [place]'s Name Patient's Relationship to Policy [place] [facility] ([facility]) MEDICARE [facility] ([facility]) June 26, 2016 [id number] CARSONJOAN ROWELL PATIENT [employer] [facility] (WN) MEDICARE ADVANTAGE [facility] ([facility]) June 26, 2016 [id number] [phone] JOAN WAGNER KARSTEN PATIENT [employer] [facility] (WNR) MEDICARE ADVANTAGE [facility] ([facility]) June 26, 2016 [id number] JOAN WAGNER KARSTEN PATIENT Selected Encounter This section includes the information on record at [place] for the Encounter. Date/Time Encounter Type Encounter Description Reason Provider Source Jul 28, 2022 10:45 AM OFFICE O/P EST HI 40-54 MIN PRIMARY CARE/MEDICINE ICD-10-CM M79.602 Pain in left arm JUANY CARRILLO Encounter Template Text not used by [place] Assessments - Encounter Diagnoses This section includes the primary and secondary diagnoses documented for the Encounter. Date/Time Primary/Secondary Diagnosis Diagnosis Name Provider Source Jul 28, 2022 10:55 AM PRIMARY Pain in left arm [facility] Jul 28, 2022 10:55 AM SECONDARY Malignant neoplasm of left kidney, except renal pelvis [facility] Jul 28, 2022 10:55 AM SECONDARY Malignant neoplasm of prostate [facility] Jul 28, 2022 10:55 AM SECONDARY Other retention of urine [facility] Plan of Treatment: Future Appointments (+ 6 months) and Future Tests (+/- 45 days) The Plan of Treatment section includes future care activities for the patient [facility] This section includes future appointments and future orders which are active, pending or scheduled. Future Appointments This section includes appointments that were scheduled to occur 6 months from the date of the Encounter, up to a maximum of 20 appointments. The data comes from all [facility]. Appointment Date/Time Appointment Type Appointme nt Facility Name Aug 13, 2022 06:13 PM AMBULATORY - MEDICINE [facility] Aug 23, 2022 09:30 AM AMBULATORY - SURGERY [facility] Aug 23, 2022 09:45 AM AMBULATORY - NONE [facility] Aug 23, 2022 10:30 AM AMBULATORY - MEDICINE [facility] Aug 23, 2022 10:31 AM AMBULATORY - MEDICINE [facility] Sep 06, 2022 10:15 AM AMBULATORY - SURGERY [facility] Oct 25, 2022 07:00 AM AMBULATORY - NONE [facility] Oct 25, 2022 07:30 AM AMBULATORY - SURGERY [facility] Oct 25, 2022 09:00 AM AMBULATORY - SURGERY [facility] Active, Pending, and Scheduled Orders This section includes a listing of several types of active, pending, and scheduled orders, including clinic medications orders, diagnostic test orders, procedure orders and consult orders; where the start date of the order is 45 days before the date of the Encounter or 45 days after the date of theEncounter. The data comes from all [facility]. Test Date/Time Test Type Test Details Facility Name July 14, 2022 12:00 AM Laboratory - Blood Bank Order ABO/RH - LAB BLOOD [facility] July 14, 2022 02:05 PM Laboratory - Blood Bank Order TYPE & SCREEN - LAB BLOOD [facility] Aug 07, 2022 11:23 AM Laboratory - Chemi stry Order DRUG SCREEN PANEL,URINE URINE WC ONCE [facility] Aug 23, 2022 10:47 AM Laboratory - Chemi stry Order URINALYSIS URINE ER STAT [facility] Lab Results: +/- 30 days of the encounter This section includes the Chemistry and Hematology Lab Results on record with [place] for the patient. Radiology Reports and Pathology Reports are provided separately, in subsequent sections. Lab Results This section contains the Chemistry/Hematology Results that were resulted 30 days before or 30 daysafter the date of the Encounter. Date/Time Source Result Type Result - Unit Interpretation Reference Range Comment Aug 24, 2022 12:15 PM [facility] URINALYSIS Specimen Type: URINE No comment entered. Ordering Provider: DAWIT KIM Report Released Date/Time: Aug 24, 2022 09:34 AM Reporting Lab: [facility] [address] Performing Lab: [facility] [address] URINE COLOR YELLOW SPECIFIC GRAVITY 1.030 1.003-1.03 5 URINE BILIRUBIN NEGATIVE See_Commen t URINE KETONES 1+ See_Co mmen t URINE GLUCOSE NEGATIVE See_Co mmen t URINE PROTEIN 200 See_Co mmen t URINE PH 6.5 5.0-8.0 URINE WBC/HPF >180 H 0-7 URINE BACTERIA MODERATE URINE RBC/HPF 59 H 0-3 APPEARANCE EX.TURBID SQUAMOUS EPITHELIAL NONE SEEN URINE BLOOD 1+ See_Comm en t URINE NITRITE POSITIVE See_Co mmen t WBC CLUMPS PRESENT LEUKOCYTE ESTERASE 500 See_Commen t Aug 23, 2022 11:16 AM [facility] PROTHROMBIN TIME/INR Specimen Type: PLASMA No comment entered. Ordering Provider: Serena ESQUIVEL Report Released Date/Time: Aug 23, 2022 10:47 AM Aug 23, 2022 11:16 AM [facility] ACT PART THROMBO TIME Specimen Type: PLASMA No comment entered. Ordering Provider: Serena ESQUIVEL Report Released Date/Time: Aug 23, 2022 10:47 AM Reporting Lab: [facility] [address] Performing Lab: [facility] [address] APTT 30.2 25.1-36.5 Aug 23, 2022 11:16 AM [facility] TSH W/REFLEX TO FREE T4 Specimen Type: PLASMA No comment entered. Ordering Provider: Serena ESQUIVEL Report Released Date/Time: Aug 23, 2022 10:47 AM Reporting Lab: [facility] [address] Performing Lab: [facility] [address] TSH 1.54 0.35-4.94 Aug 23, 2022 11:16 AM [facility] LIPID PANEL,NON-FASTING Specimen Type: PLASMA No comment entered. Ordering Provider: Serena ESQUIVEL Report Released Date/Time: Aug 23, 2022 10:47 AM Reporting Lab: [facility] [address] Performing Lab: [facility] [address] CHOLESTEROL 129 See_Comm en t .HDL 36 L See_Commen t LDL CALCULATION 68 See_Commen t VLDL CALCULATION 25 See_Commen t NON HDL CHOLESTEROL 93 See_Commen t TRIG(NON FASTING) 123 See_Commen t Aug 23, 2022 11:16 AM [facility] CARDIAC TROPONIN I Specimen Type: PLASMA No comment entered. Ordering Provider: Serena ESQUIVEL Report Released Date/Time: Aug 23, 2022 10:47 AM Reporting Lab: [facility] [address] Performing Lab: [facility] [address] CARDIAC TROPONIN I <0.028 See_Commen t Aug 23, 2022 11:16 AM [facility] SED RATE Specimen Type: BLOOD No comment entered. Ordering Provider: Serena ESQUIVEL Report Released Date/Time: Aug 23, 2022 10:47 AM Reporting Lab: [facility] [address] Performing Lab: [facility] [address] SED RATE 31 H 5-15 Aug 23, 2022 11:16 AM [facility] PHOSPHORUS Specimen Type: PLASMA No comment entered. Ordering Provider: Serena ESQUIVEL Report Released Date/Time: Aug 23, 2022 10:47 AM Reporting Lab: [facility] [address] Performing Lab: [facility] [address] PHOSPHORUS 3.9 2.3-4.7 Aug 23, 2022 11:16 AM [facility] C-REACTIVE PROTEIN Specimen Type: SERUM No comment entered. Ordering Provider: Serena ESQUIVEL Report Released Date/Time: Aug 23, 2022 10:47 AM Reporting Lab: [facility] [address] Performing Lab: [place] [id number] C-REACTIVE PROTEIN 3.14 See_Commen t Aug 23, 2022 11:16 AM [facility] HEMOGLOBIN A1C Specimen Type: BLOOD Comment: Values obtained from A1C measurements can vary. For typical A1C assays, a reported value of 7.0 could actually be between 6.7 and 7.3 if measured by a reference method. A reported value of 9.0 could actually be between 8.7 and 9.3. Ref: http://www.ngsp .org/CAPdata.as p Ordering Provider: Serena ESQUIVEL Report Released Date/Time: Aug 23, 2022 10:47 AM Reporting Lab: [facility] [address] Performing Lab: [facility] [address] HEMOGLOBIN A1C 4.2 4.0-6.0 Aug 23, 2022 11:16 AM [facility] CBC & DIFF Specimen Type: BLOOD Comment: Automated Differential Performed Ordering Provider: Serena ESQUIVEL Report Released Date/Time: Aug 23, 2022 10:47 AM Reporting Lab: [facility] [address] Performing Lab: [facility] [address] WBC 5.11 4.0-11.0 RBC 3.87 L 4.6-6.2 HGB 11.9 L 13.5-17.9 HCT 35.7 L 41-54 MCV 92.2 80-100 MCH 30.7 27-33 MCHC 33.3 32.0-37.5 PLT 190 150-400 MPV 9.3 7.4-10.4 NEUT 73.3 LYMPHS 12.7 MONO 10.8 EOSINO 2.2 BASO 0.6 RDW 14.1 11.5-14.5 ABS LYMPH 0.65 L 1.0-4.0 ABS MONO 0.55 0.1-1.0 ABS NEUT 3.75 2.0-7.7 ABS EOS 0.11 0-0.5 ABS BASO 0.03 0-0.2 IG(META,MYELO, PRO) 0.4 ABS IMMATURE GRAN 0.02 0-0.1 Aug 23, 2022 11:16 AM [facility] COMPREHENSIVE METABOLIC PANEL+MG Specimen Type: PLASMA No comment entered. Ordering Provider: Serena ESQUIVEL Report Released Date/Time: Aug 23, 2022 10:47 AM Reporting Lab: [facility] [address] Performing Lab: [facility] [address] CREATININE 0.8 0.7-1.2 UREA NITROGEN 15 8-26 GLUCOSE 101 H 70-100 SODIUM 140 136-145 POTASSIUM 4.3 3.5-5.1 CHLORIDE 107 98-107 CO2 26 22-29 CALCIUM 9.2 8.4-10.2 PROTEIN,TOTAL 6.8 6.0-8.3 ALBUMIN 3.8 3.5-5.2 BILIRUBIN, TOTAL 0.7 0.2-1.2 MAGNESIUM 2.3 1.6-2.6 ANION GAP 7 5-15 ALKALINE PHOSPHATASE 98 40-150 ALT/SGPT 12 See_Commen t AST/SGOT 15 See_Commen t .CREAT EGFR(CKD-EPI) >90 See_Commen t Aug 23, 2022 11:14 AM [facility] POC CREATININE Specimen Type: BLOOD No comment entered. Ordering Provider: ALVONNE PANCHAL Report Released Date/Time: Aug 23, 2022 11:16 AM Reporting Lab: [facility] [address] Performing Lab: [facility] [address] POC CREATININE 0.8 0.6-1.3 July 19, 2022 04:40 PM [facility] FINGERSTICK GLUCOSE Specimen Type: BLOOD Comment: Save Result Nurse Notified Ordering Provider: MACKENZIE COTTER Report Released Date/Time: July 19, 2022 05:00 PM Reporting Lab: [facility] [address] Performing Lab: [facility] [address] FINGERSTICK GLUCOSE 132 70-100 July 19, 2022 07:13 AM [facility] COMPREHENSIVE METABOLIC PANEL+MG Specimen Type: PLASMA No comment entered. Ordering Provider: MACKENZIE COTTER Report Released Date/Time: July 18, 2022 05:40 PM Reporting Lab: [facility] [address] Performing Lab: [facility] [address] CREATININE 0.9 0.7-1.2 UREA NITROGEN 24 8-26 [...] See_Commen t July 19, 2022 07:13 AM [facility] IRON GROUP Specimen Type: SERUM No comment entered. Ordering Provider: MACKENZIE COTTER Report Released Date/Time: July 18, 2022 05:40 PM Reporting Lab: [facility] [address] Performing Lab: [facility] [address] IRON 28 L 65-175 TIBC,CALCULATE D 223 L 250-425 FERRITIN 73.7 21.8-274.7 IRON SATURATION 13 L 20-50 TRANSFERRIN 178 163-382 July 19, 2022 07:13 AM [facility] CBC Specimen Type: BLOOD No comment entered. Ordering Provider: MACKENZIE COTTER Report Released Date/Time: July 18, 2022 05:40 PM Reporting Lab: [facility] [address] Performing Lab: [facility] [address] WBC 7.73 4.0-11.0 RBC 2.42 L 4.6-6.2 HGB 8.2 L 13.5-17.9 HCT 23.8 L 41-54 MCV 98.3 80-100 MCH 33.9 H 27-33 MCHC 34.5 32.0-37.5 PLT 155 150-400 MPV 9.6 7.4-10.4 RDW 13.5 11.5-14.5 July 19, 2022 05:44 AM [facility] FINGERSTICK GLUCOSE Specimen Type: BLOOD Comment: Save Result Nurse Notified Ordering Provider: MACKENZIE COTTER Report Released Date/Time: July 19, 2022 11:54 AM Reporting Lab: [facility] [address] Performing Lab: [facility] [address] FINGERSTICK GLUCOSE 137 70-100 July 18, 2022 10:51 PM [facility] FINGERSTICK GLUCOSE Specimen Type: BLOOD Comment: Save Result Nurse Notified Ordering Provider: MACKENZIE COTTER Report Released Date/Time: July 18, 2022 11:06 PM Reporting Lab: [facility] [address] Performing Lab: [facility] [address] FINGERSTICK GLUCOSE 163 70-100 July 17, 2022 06:51 AM [facility] BASIC METABOLIC PANEL+MG Specimen Type: PLASMA No comment entered. Ordering Provider: DANG VALLE R Report Released Date/Time: July 16, 2022 09:37 AM Reporting Lab: [facility] [address] Performing Lab: [facility] [address] CREATININE 0.8 0.7-1.2 UREA NITROGEN 23 8-26 GLUCOSE 107 H 70-100 SODIUM 139 136-145 POTASSIUM 3.9 3.5-5.1 CHLORIDE 106 98-107 CO2 28 22-29 CALCIUM 9.1 8.4-10.2 MAGNESIUM 1.9 1.6-2.6 ANION GAP 5 5-15 .CREAT EGFR(CKD-EPI) >90 See_Commen t July 17, 2022 06:51 AM [facility] PROTHROMBIN TIME/INR Specimen Type: PLASMA No comment entered. Ordering Provider: DANG VALLE R Report Released Date/Time: July 16, 2022 09:37 AM Reporting Lab: [facility] [address] Performing Lab: [facility] [address] .INR 1.0 0.8-1.1 .PT 11.5 9.4-12.5 July 17, 2022 06:51 AM [facility] CBC Specimen Type: BLOOD No comment entered. Ordering Provider: DANG VALLE Report Released Date/Time: July 16, 2022 09:37 AM Reporting Lab: [facility] [address] Performing Lab: [facility] [address] WBC 6.05 4.0-11.0 RBC 3.77 L 4.6-6.2 HGB 12.7 L 13.5-17.9 HCT 36.0 L 41-54 MCV 95.5 80-100 MCH 33.7 H 27-33 MCHC 35.3 32.0-37.5 PLT 179 150-400 MPV 9.4 7.4-10.4 RDW 13.2 11.5-14.5 July 13, 2022 11:22 AM [facility] COVID-19 AND FLU/RSV DIAG PANEL(CEPHEID) Specimen Typ e: NASOPHARYNGEAL Comment: Cepheid GeneXpert (618) Ordering Provider: WHITNEY ANDERSON Report Released Date/Time: July 13, 2022 11:04 AM Reporting Lab: [facility] [address] Performing Lab: [facility] [address] COVID-19 (CEPHEID) Not Detected See_Commen t INFLUENZA A (PCR) Not Detected See_Commen t INFLUENZA B (PCR) Not Detected See_Commen t RSV (PCR) Not Detected See_Com men t July 13, 2022 11:00 AM [facility] C-REACTIVE PROTEIN Specimen Type: SERUM Comment: Automated Differential Performed Ordering Provider: WHITNEY ANDERSON Report Released Date/Time: July 13, 2022 11:04 AM Reporting Lab: [facility] [address] Performing Lab: [facility] [address] C-REACTIVE PROTEIN 1.17 <5.00 July 13, 2022 11:00 AM [facility] PROTHROMBIN TIME/INR Specimen Type: PLASMA No comment entered. Ordering Provider: WHITNEY ANDERSON Report Released Date/Time: July 13, 2022 11:04 AM Reporting Lab: [facility] [address] Performing Lab: [facility] [address] .INR 0.9 0.8-1.1 .PT 11.1 9.4-12.5 July 13, 2022 11:00 AM [facility] SED RATE Specimen Type: BLOOD No comment entered. Ordering Provider: WHITNEY ANDERSON Report Released Date/Time: July 13, 2022 11:04 AM Reporting Lab: [facility] [address] Performing Lab: [facility] [address] SED RATE 10 5-15 July 13, 2022 11:00 AM [facility] CBC & DIFF Specimen Type: BLOOD Comment: Automated Differential Performed Ordering Provider: WHITNEY ANDERSON Report Released Date/Time: July 13, 2022 11:04 AM Reporting Lab: [facility] [address] Performing Lab: [facility] [address] WBC 8.82 4.0-11.0 RBC 3.89 L 4.6-6.2 [...] 0.03 0-0.1 July 13, 2022 11:00 AM [facility] COMPREHENSIVE METABOLIC PANEL+MG Specimen Type: PLASMA Comment: Automated Differential Performed Ordering Provider: WHITNEY ANDERSON Report Released Date/Time: July 13, 2022 11:04 AM Reporting Lab: [facility] [address] Performing Lab: [facility] [address] CREATININE 1.0 0.7-1.2 UREA NITROGEN 16 8-26 GLUCOSE 129 H 70-100 SODIUM 139 136-145 POTASSIUM 4.3 3.5-5.1 CHLORIDE 106 98-107 CO2 26 22-29 CALCIUM 9.2 8.4-10.2 PROTEIN,TOTAL 6.8 6.0-8.3 ALBUMIN 3.9 3.5-5.2 BILIRUBIN, TOTAL 1.2 0.2-1.2 MAGNESIUM 2.2 1.6-2.6 ANION GAP 7 5-15 ALKALINE PHOSPHATASE 73 40-150 ALT/SGPT 17 <55 AST/SGOT 18 <34 .CREAT EGFR(CKD-EPI) 79 >60 Vital Signs: All taken on the encounter date This section contains inpatient and outpatient Vital Signs collected on the date of the Encounter. Date/Time Temperature Pulse Blood Pressure Respiratory Rate SP02 Pain Height Weight Body Mass Index Source Jul 28, 2022 10:23 AM 97.5 F 73 /min 106/58 mm[Hg] 16 /min 97 % 5 72 in 245 [facility] Social History: Smoking Status (Most current) and Tobacco Use (All prior to encounter date) This section includes the most current, and the historical, smoking and tobacco- related health factors from the [place] facility where the Encounter took place. Current Smoking Status This section includes the most current smoking, or tobacco-related health factor, from the [place] facility where the Encounter took place. Date/Time Current Smoking Status Comment Facil ity May 10, 2022 09:15 AM VA-TOBACCO FORMER USER [facility] Tobacco Use History This section includes a history of the smoking, or tobacco-related health factors, that were collected on or before the date of the Encounter. The data comes from the [place] facility where the Encounter took place. Date/Time Smoking Status/Tobacco Use Comment F acility May 10, 2022 09:15 AM VA-TOBACCO QUIT 15 YRS OR MORE [facility] May 11, 2021 09:15 AM VA-TOBACCO FORMER USER [facility] May 11, 2021 09:15 AM VA-TOBACCO QUIT 15 YRS OR MORE [facility] Nov 22, 2018 01:36 PM VA-TOBACCO NEVER USED [facility] Nov 12, 2017 07:35 AM FORMER TOBACCO USER 7Y OR GREATE R [facility] Nov 06, 2016 09:05 AM FORMER TOBACCO USER 7Y OR GREATE R [facility] Sep 27, 2015 09:42 AM FORMER TOBACCO USER 7Y OR GREATE R [facility] Sep 25, 2014 07:55 AM FORMER TOBACCO USER 7Y OR GREATE R [facility] Sep 08, 2013 07:48 AM FORMER TOBACCO USER 7Y OR GREATE R [facility] July 09, 2012 09:20 AM FORMER TOBACCO USE >1Y <7Y [facility] Jun 06, 2011 07:53 AM FORMER TOBACCO USE >1Y <7Y [facility] Sep 09, 2009 03:03 PM FORMER TOBACCO USE >1Y <7Y [facility] Aug 11, 2008 01:06 PM FORMER TOBACCO USE <1Y [facility] Sep 19, 2007 02:52 PM CURRENT TOBACCO USER [facility] Sep 03, 2006 03:32 PM CURRENT TOBACCO USER [facility] Advance Directives: All historical and current Section Date Range: From patient's date of to the date document was created. This section includes ALL of a patient's completed or amended [place] Advance and Rescinded Directives. The entries below indicate that a directive exists for the patient, but an actual copy is not included with this document. The data comes from all [facility]. Date Advance Directives Provider Source Mar 18, 2003 ADVANCE DIRECTIVE FARHAT MELGAR [facility] Radiology Reports: +/- 30 days of the [...] the Encounter. The data comes from all [place] treatment facilities. Date/Time Radiology Report Provider Source Aug 23, 2022 01:11 PM MRI-BRAIN (P): MARYJO WAGNER [id number] -[id number] M Ex Date: AUG 23, 2022@13:11 Req Phys: Serena ESQUIVEL Pat Loc: [facility] EMERGENCY DEPT WALK-IN (Re Img Loc: MRI IMAGING Service: Unknown (Case [id number] COMPLETE) MRI BRAINBRAINSTEM W & W/O CONTRA(MRI Detailed) CPT:18859 Contrast Media : Gadolinium Reason for Study: APHASIA X3 DAYS Clinical History: MRI BRAIN WITH/WITHOUT CONTRAST [place] IS NOT under investigation for COVID-19 or is COVID-19 negative Did the ordering provider speak with a benefits sales consultant regarding this imaging exam? Yes, Name of benefits sales consultant (resident or staff):Neurology Aphasia x 3 days Responsible provider name and phone number to notify for critical findings if other than user placing the order and pager listed below: User placing orders pager: [phone] LAST CREATININE 0.8 (08/23/22) Allergies: HAZELNUTS (Nov 21, 2002) Report Status: Verified Date Reported: AUG 23, 2022 Date Verified: AUG 23, 2022 Case Making Machine Operator E-Sig:/ES/TERESA SANTAMARIA MD Report: MRI BRAINBRAINSTEM W & W/O CONTRAST 08/23/2022 1:11 PM HISTORY: Aphasia for three these; history of metastatic renal cell carcinoma. TECHNIQUE: MRI of the brain was performed before and after the administration of intravenous contrast. CONTRAST: Gadavist 10 mL. COMPARISON: No prior MR studies are available for comparison. Correlation is made to CTA of the head and neck performed earlier on 08/23/2022. FINDINGS: This study is overall at least moderately degraded by motion artifact. An intensely enhancing mass is centered at the posterior body of the left lateral ventricle, with involvement of the choroid plexus. This mass measures 3.4 cm craniocaudal x 3.3 cm anteroposterior x 3.0 cm transverse. An intraventricular origin of this mass is suspected. The majority of this mass is relatively T1 isointense and T2 isointense to pendleton matter, with a few interspersed focal components of T1 hypointensity and marked T2 hyperintensity. A metastasis is more likely than a primary neoplasm in the clinical context of this patient with metastatic renal cell carcinoma. No intracranial mass or suspicious intracranial enhancement is identified elsewhere. Subtle curvilinear juxtacortical enhancement along the inferior aspect of the right superior frontal gyrus, without corresponding signal abnormality on the remaining sequences, is suspected to reflect minimal benign vascular enhancement such as a tiny incidental developmental venous anomaly. Moderate to severe vasogenic edema is present throughout the majority of the left cerebral white matter, with partial sparing of the left frontal lobe anteriorly. There is swelling of the involved left cerebral parenchyma, with effacement of the overlying sulci. Intracranial mass effect in the left supratentorial compartment results in [id number] midline shift again measuring up to 1.4 cm. There is asymmetric medialization of the left uncus. The posterior body of the left lateral ventricle is effaced by the patient's mass, with resulting entrapment and mild to moderate dilatation of the atrium, occipital horn, and temporal horn of the left lateral ventricle. Resulting transependymal flow of cerebrospinal fluid could contribute to edema in the left cerebral white matter. Similar findings were present on the head CTA performed earlier on the same day. There is no evidence of an acute infarct. The remaining brain parenchyma demonstrates grossly normal signal intensity. No intracranial hematoma is identified. Mild age-appropriate generalized cerebral volume loss is again noted. The major intracranial vascular flow voids are visualized. With the exception of a tiny incidental mucous retention cyst in the inferior right maxillary sinus, the bilateral paranasal sinuses and mastoid air cells are well aerated. A mass in the anterosuperior right orbit involves the superior muscle complex, measuring approximately 1.0 cm craniocaudal x 1.8 cm anteroposterior x 1.3 cm transverse. This mass is T1 isointense and T2 isointense, with homogeneous enhancement. This corresponds to a hypervascular lesion described on the recent head CTA. The presence of T2 isointensity and mild corresponding restricted diffusion are not suggestive of an orbital hemangioma or varix. A metastasis is therefore the most likely possibility. An enhancing lesion is again noted in the posterior superficial lobe of the left parotid gland, measuring roughly 1.3 cm craniocaudal x 1.3 cm anteroposterior x 0.9 cm transverse. This lesion demonstrates T1 isointensity to mild hypointensity, and relative T2 isointensity. A 0.9 cm hyperenhancing focus in the left semispinalis capitis muscle demonstrates relative T1 isointensity and T2 isointensity. Corresponding hyperenhancing lesions were present on the recent CTA study. Although these lesions are not well evaluated on these motion degraded brain MRI sequences, these signal characteristics favor metastases over hemangiomas. Impression: 1. Enhancing mass centered at the posterior body of the left lateral ventricle is likely intraventricular in origin, with involvement of the choroid plexus, as described. A metastasis is the most likely consideration in the clinical context of this patient with metastatic renal cell carcinoma. The possibility of a primary neoplasm (such as a noncalcified intraventricular meningioma, choroid plexus papilloma, or ependymoma) is less likely. 2. No evidence of intracranial metastatic disease elsewhere. 3. No evidence of acute intracranial pathology. 4. Left supratentorial intracranial mass effect, with rightward subfalcine herniation (yljf-[id number]-[id number] midline shift measures up to 1.4 cm) and asymmetric medialization of the left uncus. Entrapment and mild to moderate dilatation involve the atrium, occipital horn, and temporal horn of the left lateral ventricle. Similar findings were present on the head CTA performed earlier on 08/23/2022. 5. Moderate to severe vasogenic edema involves the majority of the left cerebral white matter, with partial sparing in the frontal region. 6. Enhancing mass in the anterosuperior right orbit has signal characteristics that would be unusual for a hemangioma or a varix, and is therefore favored to represent a metastasis. Enhancing lesions in the left posterior parotid gland and left semispinalis capitis muscle more likely represent metastases than hemangiomas given lack of kermit T2 hyperintensity. Corresponding hyperenhancing lesions were described in these locations on the CTA study performed earlier on 08/23/2022. 7. This study is overall at least moderately suboptimal due to motion artifact. Primary Interpreting Staff: TERESA SANTAMARIA MD, RADIOLOGIST (Case Making Machine Operator) /[facility] TERESA SANTAMARIA [facility] Aug 23, 2022 12:03 PM CTA CAROTID/COW (P): MARYJO WAGNER [id number] -1950 M Ex Date: AUG 23, 2022@12:03 Req Phys: Serena ESQUIVEL Pat Loc: [facility] EMERGENCY DEPT WALK-IN (Re [facility] – [place], [place] Loc: CT IMAGING Service: Unknown (Case [id number] COMPLETE) CTA HEAD W/POSTPROCESSING (CT Detailed) CPT:99765 Contrast Media : unspecified contrast media Reason for Study: APHASIAx3 days (Case 1532 COMPLETE) CTA NECK (CT Detailed) CPT:02015 Contrast Media : unspecified contrast media Non-ionic Iodinated Clinical History: HEAD/NECK CTA IS NOT under investigation for COVID-19 or is COVID-19 negative Defer to radiologist for final CT protocol. Please enter pertinent clinical history on the next page. Responsible provider name and phone number to notify for critical findings if other than user placing the order and pager listed below: User placing orders pager: [phone] LAST 3: Collection DT Specimen Test Name Result Units Ref Range 07/19/2022 05:30 PLASMA CREATININE 0.9 mg/dL 0.7 - 1.2 07/17/2022 05:30 PLASMA CREATININE 0.8 mg/dL 0.7 - 1.2 07/13/2022 11:00 PLASMA CREATININE 1.0 mg/dL 0.7 - 1.2 07/19/2022 05:30 PLASMA .CREAT EGFR(CKD-E 90 Ref: >=60 07/17/2022 05:30 PLASMA .CREAT EGFR(CKD-E >90 Ref: >=60 07/13/2022 11:00 PLASMA .CREAT EGFR(CKD-E 79 Ref: >=60 03/17/2020 09:04 PLASMA ESTIMATED GFR(eGF >60 Ref: >=60 09/24/2019 09:16 PLASMA ESTIMATED GFR(eGF >60 Ref: >=60 02/28/2019 06:42 PLASMA ESTIMATED GFR(eGF >60 Ref: >=60 Allergies: ([facility] only) HAZELNUTS (Nov 21, 2002) To see allergies from all [facility] locations click Reports tab>Remote Data>All Available Sites>Clinical Reports>Allergies. Report Status: Verified Date Reported: AUG 23, 2022 Date Verified: AUG 23, 2022 Case Making Machine Operator E-Sig:/ES/TERESA SANTAMARIA MD Report: CTA HEAD W/POSTPROCESSING, CTA NECK 08/23/2022 12:03 PM HISTORY: Aphasia for three days; history of metastatic renal cell carcinoma. TECHNIQUE: CTA of the neck was performed following the administration of intravenous contrast, including three-dimensional image postprocessing. CTA of the head was performed before and after the administration of intravenous contrast, including three-dimensional postprocessing. The reported degrees of stenosis were calculated using the NASCET criteria. CONTRAST: 70 mL Omnipaque 350. DOSE: DLP: 1435.46, mGy.cm/CTDIvol Mean: 48.91, mGy. COMPARISON: No prior dedicated imaging studies of the neck or head are available for comparison. FINDINGS: NECK CTA: ARTERIAL IMAGING FINDINGS: Brachiocephalic artery: Widely patent. Right common carotid artery: Widely patent. Right internal carotid artery: Mild focal stenosis at its origin. Otherwise, widely patent throughout the neck. Mid through distal cervical segment is tortuous. Right external carotid artery: Mild focal stenosis at its origin. Otherwise, widely patent. Left common carotid artery: Mild focal stenosis at its origin, which is partially obscured by motion artifact. Otherwise, widely patent. Left internal carotid artery: Widely patent throughout the neck. Left external carotid artery: Mild focal stenosis at its origin. Otherwise, widely patent. Right subclavian artery: Mild focal stenosis at its origin. Otherwise, widely patent. Left subclavian artery: Mild focal stenosis at its origin. Otherwise, widely patent. Right vertebral artery: Mild to moderate focal stenosis at its origin. Otherwise, widely patent throughout the neck. Left vertebral artery: Mild focal stenosis at its origin. Otherwise, widely patent throughout the neck. Dominant. NONARTERIAL IMAGING FINDINGS: A homogeneous hyperenhancing lesion in the posterior superficial lobe of the left parotid gland measures 0.9 x 1.0 cm. This lesion enhances to a similar degree as adjacent arteries and veins. This lesion appears contiguous with a branch of the left external carotid artery, with an associated draining vein extending to the left retromandibular vein. An additional hyperenhancing focus is present in the posteromedial periphery of the left submandibular gland, measuring 0.7 x 0.7 cm. A third 0.5 cm ovoid hyperenhancing focus is present in the left semispinalis capitis muscle. The differential diagnosis for these hyperenhancing lesions includes vascular malformations such as hemangiomas versus hypervascular metastases. Generalized bilateral enlargement and heterogeneity of the thyroid gland could represent a multinodular goiter, although this has increased compared to the chest CT dated 03/21/2021. Specifically, the right thyroid lobe now measures 3.8 cm anteroposterior x 3.2 cm transverse compared to 3.4 x 2.1 cm previously, and the left thyroid lobe now measures 3.9 x 3.4 cm compared to 3.5 x 3.1 cm previously. The remaining neck soft tissues are grossly unremarkable. A mildly enlarged right paratracheal lymph node has slightly increased in size, now measuring 1.0 cm in short axis, previously 0.[address] dated 04/13/2022 and 0.8 cm on 03/21/2021. This lymph node is nonspecific. Mild centrilobular emphysema and mild dependent atelectatic changes involve the partially imaged bilateral upper lungs. Partially imaged densely calcified precarinal and subaortic lymph nodes are suggestive of old granulomatous disease. No suspicious lytic or sclerotic osseous lesions are identified. HEAD CTA: ARTERIAL IMAGING FINDINGS: The major intracranial arteries are patent, without evidence of hemodynamically significant stenosis or proximal embolic occlusion. There is a right -type posterior cerebral artery, representing a normal anatomic variant. The left A1 segment is dominant. No definite intracranial aneurysm is identified. There is no gross deep or dural venous sinus thrombosis. NONARTERIAL IMAGING FINDINGS: A heterogeneously enhancing mass is centered at the posterior body of the left lateral ventricle, measuring 3.2 cm anteroposterior x 2.6 cm transverse. There is suspected involvement of the choroid plexus. The precise anatomic location of this mass with respect to the left lateral ventricle is difficult to determine, although an intraventricular origin is favored over an intra-axial origin. Invasion of the adjacent periventricular white matter is possible, however, noting the presence of moderate to severe hypodense edema throughout the majority of the left cerebral white matter, with partial sparing of the left frontal lobe. No calcification is identified in this mass. A hypervascular metastasis is more likely than a primary neoplasm in the clinical context of this patient with a history of metastatic renal cell carcinoma. There is resulting entrapment and mild to moderate dilatation of the atrium, occipital horn, and temporal horn of the left lateral ventricle. Resulting transependymal flow of cerebrospinal fluid in these regions could contribute to left cerebral white matter edema. Rghi-vf-gigdk midline shift measures up to 1.4 cm. There is medialization of the left uncus. The remaining brain parenchyma demonstrates normal attenuation. There is no evidence of an acute infarct. There is mild age-appropriate generalized cerebral volume loss. No intracranial hemorrhage is identified. A homogeneous hyperenhancing lesion in the right orbit involves the anterior portion of the right superior muscle complex, measuring 1.0 cm craniocaudal x 1.7 cm anteroposterior x 1.4 cm transverse. There is no associated calcification. No inflammatory stranding is present in the adjacent right orbital fat. This lesion enhances to a similar degree as venous structures, but slightly less than the degree of arterial enhancement. The differential diagnosis includes a hemangioma, hypervascular metastasis, or much less likely a schwannoma. No suspicious lytic or sclerotic osseous lesions are identified. The bilateral mastoid air cells and paranasal sinuses are well aerated. Impression: 1. Heterogeneous hypervascular mass in the region of the posterior body of the left lateral ventricle, as described, with an intraventricular origin favored over an intra-axial origin. 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 Further evaluation with brain MRI without and with contrast should be considered. 2. Moderate to severe vasogenic edema throughout the majority of the left cerebral white matter, with partial sparing of the left frontal lobe. Resulting intracranial mass effect centered in the left supratentorial compartment, with entrapment and mild to moderate dilatation of the inferior and posterior portions of the left lateral ventricle. Rightward subfalcine herniation, with sdtp-bf-hbmjz midline shift measuring up to 1.4 cm. Medialization of the left uncus. Neurosurgery consultation is recommended. 3. No evidence of intracranial pathology elsewhere. 4. Hypervascular mass in the right orbit involves the anterior portion of the superior muscle complex. The differential diagnosis includes an orbital hemangioma, hypervascular metastasis, or much less likely schwannoma. 5. Three hyperenhancing lesions involving the left parotid gland, left submandibular gland, and left semispinalis capitis. The differential diagnosis includes vascular malformation such as hemangiomas versus hypervascular metastases. 6. Generalized heterogeneity and enlargement of the bilateral thyroid gland could represent a multinodular goiter, although this has increased compared to chest CT dated 03/21/2021. 7. Mildly enlarged right paratracheal lymph node, with slight interval increase compared to chest CT dated 04/13/2022, is nonspecific. 8. Major intracranial arteries are patent, without evidence of hemodynamically significant stenosis or proximal embolic occlusion. 9. Mild to moderate focal stenosis at the right vertebral artery origin. No evidence of neurovascular occlusion or additional sites of hemodynamically significant stenosis in the neck. ADDITIONAL NOTE: For the purposes of this report, stenosis categories are as follows: widely patent, less than 50% stenosis; mild, less than 50% stenosis; mild to moderate, 40-60% stenosis; moderate, 50-69% stenosis; moderate to severe, 60-80% stenosis; severe, 70-99% stenosis. Items #1, 2, 3, and 4 of the impression section were reported to Dr. Dougie Esquivel on 08/23/2022 at 1:27 PM. Primary Interpreting Staff: TERESA SANTAMARIA MD, RADIOLOGIST (Case Making Machine Operator) /[facility] TERESA SANTAMARIA [facility] Aug 23, 2022 09:29 AM ELBOW LEFT 3 OR MORE VIEWS: CARSONLELIAMARYJO [id number] -1950 M Ex Date: AUG 23, 2022@09:29 Req Phys: LEIF BALBUENA Loc: [facility] ORTHO OT KENA 2F (Req'g Img Loc: MAIN X-RAY Service: Unknown (Case [id number] COMPLETE) ELBOW LEFT 3 OR MORE VIEWS (RAD Detailed) CPT:37086 Reason for Study: postop Clinical History: [place] IS NOT under investigation for COVID-19 or is COVID-19 negative postop Responsible provider name and phone number to notify for critical findings if other than user placing the order and pager listed below: User placing orders pager: [phone] LAST CREATININE 0.9 (07/19/22) Report Status: Verified Date Reported: AUG 23, 2022 Date Verified: AUG 23, 2022 Case Making Machine Operator E-Sig:/ES/ALBINA LEE MD Report: Exam: Left elbow 3 views, 08/23/2022 HISTORY: Postop. COMPARISON: Left elbow 3 views, 07/18/2022. Impression: Stable postoperative changes from plate and screw fixation of a distal humeral shaft fracture. Bone cement filling a previous area of lucency in the distal left humerus. Long screw through the olecranon. All hardware is intact without evidence for loosening or fracture. Vascular coils located anterior to the distal left humerus. Skin jennifer in place. Persistent but decreased soft tissue swelling about the left elbow. Primary Interpreting Staff: ALBINA LEE MD, RADIOLOGIST (Case Making Machine Operator) /[facility] July 20, 2022 07:50 AM CHEST 1 VIEW: MARYJO WAGNER [id number] -1950 M Exm Date: JULY 20, 2022@07:50 Req Phys: MACKENZIE COTTER Pat Loc: 07-20-2022@08:26 Img Loc: MAIN X-RAY Service: PRIMARY CARE - MED OFFICE (Case 2081 COMPLETE) CHEST 1 VIEW (RAD Detailed) CPT:75685 Proc Modifiers : PORTABLE EXAM Reason for Study: see below. thanks. Clinical History: IS NOT under investigation for COVID-19 or is COVID-19 negative Please further evaluate for acute airspace disease given o2 requirement. Thanks. Responsible provider name and phone number to notify for critical findings if other than user placing the order and pager listed below: User placing orders pager: [phone] same LAST CREATININE 0.9 (07/19/22) Report Status: Verified Date Reported: JULY 20, 2022 Date Verified: JULY 20, 2022 [employer] E-Sig:/ES/JAMIE MIGUEL MD Report: EXAM: CHEST 1 VIEW HISTORY: see below. thanks. Reason for Study: see below. thanks. IS NOT under investigation for COVID-19 or is COVID-19 negative Please further evaluate for acute airspace disease given o2 requirement. Thanks. Responsible provider name and phone number to notify for critical findings if other than user placing the order and pager listed below: User placing orders pager: [phone] same LAST CREATININE 0. COMPARISON: Chest CT [...] Primary Interpreting Staff: JAMIE MIGUEL MD, RADIOLOGIST (Case Making Machine Operator) /[facility] July 18, 2022 12:59 PM ELBOW LEFT 2 VIEWS: MARYJO WAGNER [id number] -1950 M Exm Date: JULY 18, 2022@12:59 Req Phys: LEIF BALBUENA Loc: OR-PACU/07-18-2022@13:59 Img Loc: MAIN X-RAY Service: ZZSURGICAL SERVICE (Case 1121 COMPLETE) ELBOW LEFT 2 VIEWS (RAD Detailed) CPT:80663 Proc Modifiers : PORTABLE EXAM, OPERATING ROOM EXAM Reason for Study: post-op Clinical History: post-op Report Status: Verified Date Reported: JULY 18, 2022 Date Verified: JULY 18, 2022 Case Making Machine Operator E-Sig:/ES/JAKUB LEE MD Report: EXAM: ELBOW LEFT [...] Primary Interpreting Staff: JAKUB LEE MD, RADIOLOGIST (Case Making Machine Operator) /[facility] [place] JAKUB LEE [facility] July 18, 2022 07:30 AM FLUORO UP TO 1 HR PHYSICIAN TIME: MARYJO WAGNER [id number] -1950 M Exm Date: JULY 18, 2022@07:30 Req Phys: LEIF BALBUENA Loc: OR-PACU/07-18-2022@13:14 Img Loc: MAIN X-RAY Service: PRIMARY CARE - MED OFFICE (Case [id number] COMPLETE) FLUORO UP TO 1 HR PHYSICIAN TIME (RAD Detailed) CPT:31772 Proc Modifiers : PORTABLE EXAM, OPERATING ROOM EXAM, LEFT Reason for Study: Left distal humerous ORIF Clinical History: OR 7 Pathologic distal humeral shaft fracture Responsible provider name and phone number to notify for critical findings if other than user placing the order and pager listed below: User placing orders pager: Henry BALBUENA [phone] LAST CREATININE 0.8 (07/17/22) Report Status: Electronically Filed Date Reported: JULY 18, 2022 Report: Impression: Please see the full report for this procedure in [facility] patient progress notes. Fluoro guidance was provided during this procedure, but the study was not reviewed or verified by a [facility] radiologist. The radiation exposure dose has been recorded in the patient's chart. If you are unable to view this data, please contact the Imaging Department. VERIFIED BY: / *ELECTRONICALLY FILED* [facility] July 17, 2022 03:28 PM ABDOMINAL AORTOGRAM (P): MARYJO WAGNER [id number] -1950 M Exm Date: JULY 17, 2022@15:28 Req Phys: MALCOM LANGLEY Loc: /07-17-2022@15:54 Img Loc: INTERVENTIONAL RADIOLOGY Service: PRIMARY CARE - MED OFFICE (Case 527 COMPLETE) ANGIOGRAPHY EXTREMITY UNILAT S&I (ANI Detailed) CPT:65626 Reason for Study: codes (Case 528 COMPLETE) IR AORTOGRAPHY ABDOMINAL W/O RUNO(ANI Detailed) CPT:82871 (Case 529 COMPLETE) IR FOREIGN BODY REMOVAL INTRAVASC(ANI Detailed) CPT:18916 (Case 532 COMPLETE) IR NEEDLE/INTRACATH PLACEMENT EXT(ANI Detailed) CPT:22682 (Case 533 COMPLETE) IR PLACEMENT OCCLUSIVE DEVICE SAM(ANI Detailed) CPT:G0269 Clinical History: codes Report Status: Verified Date Reported: JULY 17, 2022 Date Verified: JULY 17, 2022 Case Making Machine Operator E-Sig:/ES/MALCOM LANGLEY MD Report: RADIOLOGIST: Malcom Langley [...] angiogram and runoff. 12. Closure of right SUBSTANCE ABUSE RN with Angio-Seal device. HISTORY: Metastatic renal cell [...] Sheath removed over guidewire and a 5 south african vascular sheath advanced over guidewire into the artery. An H1 catheter was advanced along with the guidewire into the thoracic arch and the left subclavian artery was selected. Catheter and the guidewire were advanced into the left brachial artery. The 5 Ugandan sheath was exchanged for a 6 Ugandan sheath that was advanced into the left [...] arteries. Sheath and catheters were removed and SUBSTANCE ABUSE RN arteriotomy was closed using Angioseal. There is patent hemostasis. No bleeding or hematoma noted. Sterile dressing applied. 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 Primary Interpreting Staff: MALCOM LANGLEY MD, INTERVENTIONAL RADIOLOGIST (Case Making Machine Operator) /[facility] July 17, 2022 07:30 AM RENAL ARTERY EMBOLIZATION (P): MARYJO WAGNER DIRK [id number] -1950 M Exm Date: JULY 17, 2022@07:30 Req Phys: WESTON VASQUEZ [facility] Loc: 07-17-2022@15:46 Img Loc: INTERVENTIONAL RADIOLOGY Service: PRIMARY CARE - MED OFFICE (Case 130 COMPLETE) IR TRANSCATH EMBOLIZATION W/ANGIO(ANI Detailed) CPT:86920 Reason for Study: embolization of RCC mets to left humerus (Case 131 COMPLETE) IR ARTERIAL EMBOLIZATION OTHER TH(ANI Detailed) CPT:20800 (Case 132 COMPLETE) IR US GUIDANCE VASCULAR ACCESS (ANI Detailed) CPT:99109 Clinical History: IS NOT under investigation for [...] pager listed below: User placing orders pager: [phone] LAST CREATININE 1.0 (07/13/22) Report Status: Verified Date Reported: JULY 17, 2022 Date Verified: JULY 17, 2022 Case Making Machine Operator E-Sig:/ES/MALCOM LANGLEY MD Report: RADIOLOGIST: Malcom Langley [...] angiogram and runoff. 12. Closure of right SUBSTANCE ABUSE RN with Angio-Seal device. HISTORY: Metastatic renal cell [...] Sheath removed over guidewire and a 5 south african vascular sheath advanced over guidewire into the artery. An H1 catheter was advanced along with the guidewire into the thoracic arch and the left subclavian artery was selected. Catheter and the guidewire were advanced into the left brachial artery. The 5 Ugandan sheath was exchanged for a 6 Ugandan sheath that was advanced into the left [...] arteries. Sheath and catheters were removed and SUBSTANCE ABUSE RN arteriotomy was closed using Angioseal. There is patent hemostasis. No bleeding or hematoma noted. Sterile dressing applied. 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 Primary Interpreting Staff: MALCOM LANGLEY MD, INTERVENTIONAL RADIOLOGIST (Case Making Machine Operator) /[facility] July 14, 2022 06:44 AM HUMERUS LEFT MINIMUM 2 VIEWS: MARYJO WAGNER [id number] -1950 M Exm Date: JULY 14, 2022@06:44 Req Phys: JEAN PAULLISSTEHHERBERTJAIRO Pat Loc: 07-14-2022@07:13 Img Loc: MAIN X-RAY Service: PRIMARY CARE - MED OFFICE (Case 2497 COMPLETE) HUMERUS LEFT MINIMUM 2 VIEWS (RAD Detailed) CPT:52536 Reason for Study: post reduction Clinical History: Report Status: Verified Date Reported: JULY 14, 2022 Date Verified: JULY 14, 2022 Case Making Machine Operator E-Sig: Report: HUMERUS LEFT MINIMUM 2 VIEWS HISTORY: post reduction COMPARISON: 07/13/2022 TECHNIQUE: 2 view(s) of the humerus, submitted to the [place] National Teleradiology Program (NTP) for interpretation. FINDINGS: [...] less likely. READING PHYSICIAN: Xavier Merrill MD -[phone] 07/14/2022 5:11 PDT [facility] National Teleradiology Program [phone] (For Medical Practitioner Use Only) Attention Patients / Veterans: If you have questions or concerns about these test results, please contact your ordering provider or primary care team. Primary Interpreting Staff: RADIOLOGY,OUTSIDE SERVICE, Staff Physician / RADIOLOGY,OUTSIDE SERVICE [facility] July 13, 2022 10:07 AM HUMERUS LEFT MINIMUM 2 VIEWS: MARYJO WAGNER [id number] -1950 M Exm Date: JULY 13, 2022@10:07 Req Phys: WHITNEY ANDERSON Loc: [facility] EMERGENCY DEPT WALK-IN (Re Img Loc: MAIN X-RAY Service: Unknown (Case 2151 COMPLETE) HUMERUS LEFT MINIMUM 2 VIEWS (RAD Detailed) CPT:37385 Proc Modifiers : LEFT Reason for Study: [...] pager listed below: User placing orders pager: [phone] LAST CREATININE 0.8 (05/10/22) Report Status: Verified Date Reported: JULY 13, 2022 Date Verified: JULY 13, 2022 Case Making Machine Operator E-Sig:/ES/ALBINA COWAN MD, FACR, CCD Report: EXAMINATION: [...] Staff: ALBINA COWAN MD, FACR, STAFF RADIOLOGIST (Case Making Machine Operator) /[facility] ALBINA COWAN [facility] July 13, 2022 10:07 AM ELBOW LEFT 3 OR MORE VIEWS: MARYJO WAGNER [id number] -1950 M Exm Date: JULY 13, 2022@10:07 Req Phys: WHITNEY ANDERSON Loc: [facility] EMERGENCY DEPT WALK-IN (Re Img Loc: MAIN X-RAY Service: Unknown (Case 2149 COMPLETE) ELBOW LEFT 3 OR MORE VIEWS (RAD Detailed) CPT:69358 Proc Modifiers : LEFT Reason for Study: L arm pain Clinical History: [place] IS NOT under investigation for COVID-19 or is COVID-19 negative Atraumatic left upper extremity pain that is located midshaft humerus distally to the mid forearm. Clinical concern for dislocation versus fracture versus bone mets Responsible provider name and phone number to notify for critical findings if other than user placing the order and pager listed below: User placing orders pager: [phone] LAST CREATININE 0.8 (05/10/22) Report Status: Verified Date Reported: JULY 13, 2022 Date Verified: JULY 13, 2022 Case Making Machine Operator E-Sig:/ES/ALBINA CWOAN MD, FACR, CCD Report: EXAMINATION: ELBOW LEFT [...] Staff: ALBINA COWAN MD, FACR, STAFF RADIOLOGIST (Case Making Machine Operator) /BSF ALBINA COWAN [facility] July 13, 2022 10:07 AM FOREARM LEFT 2 VIEWS: MARYJO WAGNER [id number] -1950 M Exm Date: JULY 13, 2022@10:07 Req Phys: WHITNEY ANDERSON Pat Loc: [facility] EMERGENCY DEPT WALK-IN (Re Im Loc: MAIN X-RAY Service: Unknown (Case [id number] COMPLETE) FOREARM LEFT 2 VIEWS (RAD Detailed) CPT:98338 Proc Modifiers : LEFT Reason for Study: [...] pager listed below: User placing orders pager: [phone] LAST CREATININE 0.8 (05/10/22) Report Status: Verified Date Reported: JULY 13, 2022 Date Verified: JULY 13, 2022 Case Making Machine Operator E-Sig:/ES/ALBINA COWAN MD, FACR, CCD Report: EXAMINATION: [...] Staff: ALBINA COWAN MD, FACR, STAFF RADIOLOGIST (Case Making Machine Operator) /BSF ALBINA COWAN [facility] Pathology Reports: +/- 30 days of the [...] the Encounter. The data comes from all [place] treatment facilities. Date/Time Pathology Report Provider Source July 13, 2022 04:06 PM LR SURGICAL PATHOL OGY REPORT: LOCAL TITLE: LR SURGICAL PATHOLOGY REPORT STANDARD TITLE: PATHOLOGY REPORT DATE OF NOTE: JULY 21, 2022@14:37:27 ENTRY DATE: JULY 21, 2022@14:37:27 AUTHOR: JIAN SANDOVAL EXP COSIGNER: URGENCY: STATUS: COMPLETED $APHDR Reporting Lab: [facility] [CLIA# [id number]] [place] [address] - - - - - - - [...] - - - PATHOLOGY REPORT Accession No. [id number] - - - - - [...] is entirely submitted in A-D. CE. (D). SMcCoy/ms FROZEN SECTION DIAGNOSES: SPEC. 1 - left [...] with metastatic clear cell renal cell carcinoma /es/ JIAN SANDOVAL STAFF PATHOLOGIST, PATHOLOGY & LABORATORY MED [facility] [place] Signed July 21, 2022@14:37 Performing Laboratory: Surgical Pathology Report Performed By: [facility] [CLIA# [id number]] [place] [address] $FTR - - - - - - [...] - - - - - - - MARYJO WAGNER STANDARD FORM 515 ID:[id number] SEX:M :1950 AGE: 72 LOC:MSP PATHOLOGY PRO FEE ADM:June DX:PATHOLOGIC FX LF HUMERUS PCP: Leif Balbuena MD /sangita/ JIAN SANDOVAL STAFF PATHOLOGIST, PATHOLOGY & LABORATORY MED [facility] Signed: 07/21/2022 14:37 JIAN SANDOVAL [facility] Encounter Notes: All associated encounter notes This section contains the clinical notes associated to the Encounter. Date/Time Encounter Note(s) Provider Source Aug 16, 2022 02:58 PM ACCOUNTING OF DISC LOSURES NOTE: LOCAL TITLE: STATE PRESCRIPTION DRUG MONITORING PROGRAM STANDARD TITLE: ACCOUNTING OF DISCLOSURES NOTE DATE OF NOTE: AUG 16, 2022@14:58:03 ENTRY DATE: AUG 16, 2022@14:58:03 AUTHOR: JUANY CARRILLO EXP COSIGNER: URGENCY: STATUS: COMPLETED This PDMP query was submitted by Juany Carrillo. The clinical justification for this PDMP query is to review controlled substances prescribed outside of the [place], and any additional information that may become available, as an important component of standard clinical care, and in accordance with [facility] policy. Patient information was shared with the PDMP [employer] [place]. No prescription(s) for controlled substances outside the [place] were found in the last 90 days. /sangita/ Juany Carrillo MD Physician Signed: 08/16/2022 14:58 JUANY CARRILLO [facility] Jul 28, 2022 10:24 AM INTERNAL MEDICINE OUTPATIENT NOTE: LOCAL TITLE: MEDICINE CLINIC NURSING NOTE STANDARD TITLE: INTERNAL MEDICINE OUTPATIENT NOTE DATE OF NOTE: JUL 28, 2022@10:24 ENTRY DATE: JUL 28, 2022@10:24:31 AUTHOR: DARVIN MEDRANO EXP COSIGNER: URGENCY: STATUS: COMPLETED TYPE OF VISIT: Appointment Check In Type of appointment: In-person appointment REASON FOR VISIT: f/up ALLERGIES: HAZELNUTS (Nov 21, 2002) VITAL SIGNS: Blood Pressure: 106/58 (07/28/2022 10:23) Pulse: 73 (07/28/2022 10:23) Respiration: 16 (07/28/2022 10:23) Temperature: 97.5 F [36.4 C] (07/28/2022 10:23) Weight: 245 lb [111.13 kg] (07/28/2022 10:23) Height: 72 in [182.9 cm] (07/28/2022 10:23) BMI: 33.3 O2 Sat: 97% (07/28/2022 10:23) Pain: 5 (07/28/2022 10:23) PAIN SCREEN: Patient is having significant pain that they would like to talk to their provider about today. Old (Chronic) (began more than 6 months ago) Patient states their average pain this past week is 5 Patient states the average number on how the chronic pain affects their enjoyment of life the past week is 2 Patient states during the past week the average number on how the pain has interfered with their general activity is 2 MEDICATION Over the Counter/Herbal Medications: The patient denies taking any outside medications or herbals. /sangita/ DARVIN MEDRANO LPN Signed: 07/28/2022 10:25 DARVIN MEDRANO [facility] Jul 28, 2022 07:53 AM INTERNAL MEDICINE NOTE: LOCAL TITLE: MEDICINE CLINIC NOTE STANDARD TITLE: INTERNAL MEDICINE NOTE DATE OF NOTE: JUL 28, 2022@07:53 ENTRY DATE: JUL 28, 2022@07:53:49 AUTHOR: JUANY CARRILLO EXP COSIGNER: URGENCY: STATUS: COMPLETED Nurse's notes reviewed from today. MARYJO WAGNER is a 72 year old MALE with the following Chief complaint: post hosp f/u Assessment and Plan: # Lt humerus pathological fracture due to mets from RCC: s/p ORIF. doing well. f/u with ortho. vet offered Rad Onc referral which he declined. OT refrral done today. # HTN- stable. 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 -follows urology clinic closely # Elevated PSA/prostate cancer-pt opted for survellance. f/u urology. # urine retention- has wang in for now, once arm heals he will start straight cath again. # HM: - CRC screening -2011- Polyp - Adenoma, repeat in 2021. but overall prognosis is poor. - tobacco: quit 50 yrs ago. HPI/ROS: - recent Lt arm fracture s/p surgery. doing well and doing hand excercises Active problems - Computerized Problem List is the source for the followin. OBESITY, UNSP 2. LIVER CHEM, ABNORMAL 3. Adjustment Disorder with Mixed Anxiety and Depressed Mood 4. Other and unspecified Sleep Apnea 5. Elevated Prostate Specific Antigen (PSA) 6. Dysmetabolic Syndrome X 7. Polyp of colon (SNOMED CT 54326002) - 2011, repeat in 7-10 years, see report 8. Malignant tumor of prostate (SNOMED CT 466793742) 9. Benign hypertension 10. Retention of urine 11. Malignant tumor of kidney parenchyma 12. Multinodular goiter 13. Secondary malignant neoplasm of pancreas Allergies: HAZELNUTS (Nov 21, 2002) EXAM: Last Vital Signs: BP: 106/58 (07/28/2022 10:23) Heart Rate: 73 (07/28/2022 10:23) Respirations: 16 (07/28/2022 10:23)/min Temperature: 97.5 F [36.4 C] (07/28/2022 10:23) Pain: 5 (07/28/2022 10:23) BMI: 33.3 O2 Sat: 97% (07/28/2022 10:23) General Appearance: NAD Mental Status:alert Neck:supple Chest/T Spine: Cardiac:s1s2 rrr JVP: Lungs:clear b/l Abdomen:soft NT Extremities: Lt arm has cast. color of fingers is good. capillary refill is good. Edema ()None ()1+ ()2+ ()3+ ()4+ Pulses ()MICROSCOPIST ()1+ ()2+ ()3+ ()4+ Gait: Nl Data/Labs: LAB RESULTS LAST 48 HRS - NONE FOUND ( * )Patient was informed of available lab, imaging, and other study results associated with today's visit. Medication Reconciliation: Education Evaluations *Was medication education provided for NEW medications or CHANGES to medications? (including medication name, dose, route, reason for use, and potential side effects). No new medications or medication changes during this encounter. TERATOGENIC MED & CONTRACEPTION REVIEW (Optional)... MEDICATION RECONCILIATION Active and Recently Outpatient Medications (including Supplies): Issue Date Status Last Fill Active Outpatient Medications Refills Expiration 1) ACETAMINOPHEN 325MG TAB Qty: 100 for 13 ACTIVE Issu:07-21-22 days Sig: TAKE TWO TABLETS BY MOUTH Refills: 0 Last:07-21-22 EVERY 6 HOURS NEEDED FOR PAIN Expr:08-20-22 2) ASPIRIN 81MG EC TAB Qty: 120 for 60 ACTIVE Issu:07-21-22 days Sig: TAKE TWO TABLETS BY MOUTH Refills: 0 Last:07-21-22 EVERY DAY TO PREVENT BLOOD CLOTS TAKE Expr:09-19-22 UNTIL TOLD OKAY TO DISCONTINUE BY ORTHOPEDICS 3) CATHETER,SELF-CATH COUDE 14FR COLO#[id number] ACTIVE Issu:09-22-21 Qty: 120 for 30 days Sig: USE Refills: 10 Last:01-17-22 CATHETER TOPICALLY DIRECTED Expr:09-23-22 4) LISINOPRIL 20MG TAB Qty: 90 for 90 days ACTIVE Issu:02-08-22 Sig: TAKE ONE TABLET BY MOUTH EVERY Refills: 3 Last:02-08-22 DAY FOR BLOOD PRESSURE Expr:02-09-23 5) LUBRICATING TOP JELLY BACTERIOSTATIC ACTIVE Issu:09-22-21 Qty: 120 for 30 days Sig: APPLY JELLY Refills: 3 Last:09-25-21 TOPICALLY DIRECTED Expr:09-23-22 6) OXYCODONE 5MG TAB Qty: 35 for 7 days ACTIVE Issu:07-21-22 Sig: TAKE ONE TABLET BY MOUTH Q6 Refills: 0 Last:07-21-22 NEEDED FOR PAIN Expr:08-20-22 7) POLYETHYLENE GLYCOL 3350 ORAL PWDR Qty: ACTIVE Issu:07-21-22 238 for 15 days Sig: TAKE 17 GRAMS BY Refills: 0 Last:07-21-22 MOUTH EVERY DAY NEEDED FOR Expr:08-20-22 CONSTIPATION 8) PREGABALIN 25MG ORAL CAP Qty: 90 for 30 ACTIVE Issu:07-21-22 days Sig: TAKE ONE CAPSULE BY MOUTH Refills: 0 Last:07-21-22 THREE TIMES A DAY FOR PAIN TAPER Expr:08-20-22 PAIN IMPROVES Issue Date Status Last Fill Inactive Outpatient Medications Refills Expiration 1) LISINOPRIL 10MG TAB Qty: 45 for 90 days DISCONTINUED Issu:05-11-21 Sig: TAKE ONE-HALF TABLET BY MOUTH (EDIT) Last:05-12-21 EVERY DAY FOR BLOOD PRESSURE Refills: 3 Expr:05-12-22 2) LISINOPRIL 40MG TAB Qty: 45 for 90 days DISCONTINUED Issu:02-06-22 Sig: TAKE ONE-HALF TABLET BY MOUTH (EDIT) Last:05-17-22 EVERY DAY FOR BLOOD PRESSURE Refills: 3 Expr:02-07-23 3) LISINOPRIL 40MG TAB Qty: 45 for 90 days DISCONTINUED Issu:06-01-21 Sig: TAKE ONE-HALF TABLET BY MOUTH Refills: 0 Last:02-16-22 EVERY DAY FOR BLOOD PRESSURE Expr:06-02-22 4) SODIUM FLUORIDE 1.1% TOOTHPASTE Qty: Issu:05-12-22 100 for 60 days Sig: USE SMALL AMOUNT Refills: 5 Last:07-09-21 MOUTH EVERY MORNING AND AT BEDTIME ON Expr:07-08-22 TOOTHBRUSH, BRUSH FOR 2 MINUTES 5) TAMSULOSIN HCL 0.4MG CAP Qty: 90 for 90 Issu:05-11-21 days Sig: TAKE ONE CAPSULE BY MOUTH Refills: 1 Last:11-12-21 EVERY DAY Expr:05-12-22 Start Date Active Non-VA Medications Refills Expiration 1) Non-VA ASPIRIN TAB SiMG MOUTH ACTIVE EVERY DAY 2) Non-VA CHONDROITIN CAP/TAB Si ACTIVE TABLET TWICE A DAY 3) Non-VA GLUCOSAMINE CAP/TAB Si ACTIVE TABLET TWICE A DAY 4) Non-VA MULTIVITAMIN CAP/TAB Si ACTIVE TABLET MOUTH EVERY DAY 17 Total Medications AAA Screening: A prior imaging procedure has been done that adequately screened for AAA. Date of Imaging: April 13, 2022 Comment: no AAA No abdominal aortic aneurysm. PDMP Due: Patient's only controlled substance prescription is for a 5 day supply or less and without refills. - cosign ortho - plz make f/u appt. thanks! /sangita/ Juany Carrillo MD Physician Signed: 07/28/2022 10:55 Receipt Acknowledged By: * AWAITING SIGNATURE * [facility] BALBUENA [facility]
--- OUTSIDE RECORDS SUMMARY | 2023-03-24 08:27 | XMS_ITS | Clinical Summary ---
Author Name Unknown Organization [facility] Address [address] [place] [address] Care Team Providers Care Superintendent Maintenance [employer] Name Role Phone Elsewhere, Pcp Primary Care Provider Unavailabl e Source Comments Patient records contain information from all sites at [facility]. For routine questions regarding patient records, call [phone] during business hours, M-F 8:00 AM - 5:00 PM Central Time. Record requests for emergency care only can be directed to [phone] at any time.[facility] Allergies No known active allergies Medications Medication [...] Comments Blood Pressure 137/83 01/28/2022 8:12 AM INTERLIBRARY LOAN SPECIALIST Pulse 54 01/28/2022 8:12 AM INTERLIBRARY LOAN SPECIALIST Temperature 36.9 ??C (98.4 ??F) 01/28/2022 8:12 AM CS T Respiratory Rate 29 01/28/2022 8:12 AM INTERLIBRARY LOAN SPECIALIST Oxygen Saturation 94% 01/28/2022 8:12 AM INTERLIBRARY LOAN SPECIALIST Inhaled Oxygen Concentration - - Weight 111 kg (244 lb 11.4 oz) 01/24/2022 5:19 P M INTERLIBRARY LOAN SPECIALIST Height 182.9 cm (6') 01/24/2022 5:19 PM INTERLIBRARY LOAN SPECIALIST Body Mass Index 33.19 01/24/2022 5:19 PM INTERLIBRARY LOAN SPECIALIST Plan of Treatment Health Maintenance Due Date Last Done Comments CT Colonography 1950 Cologuard 1950 Colonoscopy 1950 Colorectal Cancer Screening 1950 FIT 1950 Hepatitis C Screening 1950 Office Visit for Blood Press ure Check / Re-check 1950 COVID-19 Vaccine (#1) 1948 Zoster Vaccines (1 of 2) 1998 Pneumococcal vaccine (65+ ye ars) (1 of 1 - PCV) 2013 Influenza Vaccine (#1) 2022 Depression Screening (Annual PHQ-2) 02/26/2023 Fall Risk Screen (Annual) 02/26/2023 Fasting Glucose for Diabetes Screening 01/27/2025 01/27/2022, 01/26/2022, 01/25/2022, Additional history exists DTaP,Tdap,and Td Vaccines (3 - Td or Tdap) 09/26/2025 09/27/2015, 12/27/2004, 02/27/2000 Advance Directives For more information, please contact: [phone] Latest Code Status on File Code Status Date Activated Date Inactivated Comments Full Code 01/24/2022 6:47 PM 01/28/2022 2:07 PM Question Answer Comments Full Code: Discussed Code Status History Code Status Date Activated Date Inactivated Comments Full Code 01/24/2022 6:45 PM 01/24/2022 6:47 PM Question Answer Comments Full Code: Discussed Care Teams Superintendent Maintenance [employer] Relationship Specialty Start Date End Date Elsewhere, Pcp PCP - General 02/08/18
--- OUTSIDE RECORDS SUMMARY | 2023-03-24 08:28 | XMS_ITS | Encounter Summary ---
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 of Vetera [facility] Address [address] [place] [address] Support Name Relationship Address Phone DOREEN WAGNER Next of Kin [phone] [place] [id number] DOREEN Emergency Contact [address] [place] [phone] Insurance Providers: All historical and current [...] [place]'s Name Patient's Relationship to Policy [place] [employer] MCR (WNR) MEDICARE ADVANTAGE [facility] (WNR) June 26, 2016 [id number] JOAN WAGNER KARSTEN PATIENT [employer] M[employer] (WNR) MEDICARE ADVANTAGE [facility] (WNR) June 26, 2016 [id number] JOAN WAGNER KARSTEN PATIENT [employer] MCR (WNR) MEDICARE ADVANTAGE [facility] (WNR) June 26, 2016 [id number] JOAN WAGNER PATIENT Selected Encounter This section includes the information on record at [facility] for the Encounter. Date/Time Encounter Type Encounter Description Reason Pro vider Source Aug 01, 2022 08:47 AM Outpatient Encounter TELEPHONE TRIAGE IHE Encounter Template Text not used by HI Plan of Treatment: Future Appointments (+ 6 months) and Future Tests (+/- 45 days) The Plan of Treatment section includes future care activities for the patient from all [facility] treatment[facility]. This section includes future appointments and future orders which are active, pending or scheduled. Future Appointments This section includes appointments that were scheduled to occur 6 months from the date of the Encounter, up to a maximum of 20 appointments. The data comes from all [facility]. Appointment Date/Time Appointment Type Appointme nt Facility Name Aug 13, 2022 06:13 PM AMBULATORY - MEDICINE [facility] Aug 23, 2022 09:30 AM AMBULATORY - SURGERY [facility] Aug 23, 2022 09:45 AM AMBULATORY - NONE [facility] Aug 23, 2022 10:30 AM AMBULATORY - MEDICINE [facility] Aug 23, 2022 10:31 AM AMBULATORY - MEDICINE [facility] Sep 06, 2022 10:15 AM AMBULATORY - SURGERY [facility] Oct 25, 2022 07:00 AM AMBULATORY - NONE [facility] Oct 25, 2022 07:30 AM AMBULATORY - SURGERY [facility] Oct 25, 2022 09:00 AM AMBULATORY - SURGERY [facility] Active, Pending, and Scheduled Orders This section includes a listing of several types of active, pending, and scheduled orders, including clinic medications orders, diagnostic test orders, procedure orders and consult orders; where the start date of the order is 45 days before the date of the Encounter or 45 days after the date of theEncounter. The data comes from all [facility]. Test Date/Time Test Type Test Details Facility Name July 14, 2022 12:00 AM Laboratory - Blood Bank Order ABO/RH - LAB BLOOD [facility] July 14, 2022 02:05 PM Laboratory - Blood Bank Order TYPE & SCREEN - LAB BLOOD [facility] Aug 07, 2022 11:23 AM Laboratory - Chemi stry Order DRUG SCREEN PANEL,URINE URINE ONCE [facility] Aug 23, 2022 10:47 AM Laboratory - Chemi stry Order URINALYSIS URINE ER STAT [facility] Lab Results: +/- 30 days of the encounter This section includes the Chemistry and Hematology Lab Results on record with HI for the patient. Radiology Reports and Pathology Reports are provided separately, in subsequent sections. Lab Results This section contains the Chemistry/Hematology Results that were resulted 30 days before or 30 daysafter the date of the Encounter. Date/Time Source Result Type Result - Unit Interpretation Reference Range Comment Aug 24, 2022 12:15 PM [facility] URINALYSIS Specimen Type: URINE No comment entered. Ordering Provider: DAWIT KIM Report Released Date/Time: Aug 24, 2022 09:34 AM Reporting Lab: [facility] [address] Performing Lab: [facility] [address] URINE COLOR YELLOW SPECIFIC GRAVITY 1.030 1.003-1.03 [...] See_Commen t Aug 23, 2022 11:16 AM [facility] PROTHROMBIN TIME/INR Specimen Type: PLASMA No comment entered. Ordering Provider: Serena ESQUIVEL Report Released Date/Time: Aug 23, 2022 10:47 AM Aug 23, 2022 11:16 AM [facility] ACT PART THROMBO TIME Specimen Type: PLASMA No comment entered. Ordering Provider: Serena ESQUIVEL Report Released Date/Time: Aug 23, 2022 10:47 AM Reporting Lab: [facility] [address] Performing Lab: [facility] [address] APTT 30.2 25.1-36.5 Aug 23, 2022 11:16 AM [facility] TSH W/REFLEX TO FREE T4 Specimen Type: PLASMA No comment entered. Ordering Provider: Serena ESQUIVEL Report Released Date/Time: Aug 23, 2022 10:47 AM Reporting Lab: [facility] [address] Performing Lab: [facility] [address] TSH 1.54 0.35-4.94 Aug 23, 2022 11:16 AM [facility] LIPID PANEL,NON-FASTING Specimen Type: PLASMA No comment entered. Ordering Provider: Serena ESQUIVEL Report Released Date/Time: Aug 23, 2022 10:47 AM Reporting Lab: [facility] [address] Performing Lab: [facility] [address] CHOLESTEROL 129 See_Comm en t .HDL 36 L See_Commen t LDL CALCULATION 68 See_Commen t VLDL CALCULATION 25 See_Commen t NON HDL CHOLESTEROL 93 See_Commen t TRIG(NON FASTING) 123 See_Commen t Aug 23, 2022 11:16 AM [facility] CARDIAC TROPONIN I Specimen Type: PLASMA No comment entered. Ordering Provider: Serena ESQUIVEL Report Released Date/Time: Aug 23, 2022 10:47 AM Reporting Lab: [facility] [address] Performing Lab: [facility] [address] CARDIAC TROPONIN I <0.028 See_Commen t Aug 23, 2022 11:16 AM [facility] SED RATE Specimen Type: BLOOD No comment entered. Ordering Provider: Serena ESQUIVEL Report Released Date/Time: Aug 23, 2022 10:47 AM Reporting Lab: [facility] [address] Performing Lab: [facility] [address] SED RATE 31 H 5-15 Aug 23, 2022 11:16 AM [facility] PHOSPHORUS Specimen Type: PLASMA No comment entered. Ordering Provider: Serena ESQUIVEL Report Released Date/Time: Aug 23, 2022 10:47 AM Reporting Lab: [facility] [address] Performing Lab: [facility] [address] PHOSPHORUS 3.9 2.3-4.7 Aug 23, 2022 11:16 AM [facility] HEMOGLOBIN A1C Specimen Type: BLOOD Comment: Values [...] Aug 23, 2022 10:47 AM Reporting Lab: [facility] [address] Performing Lab: [facility] [address] HEMOGLOBIN A1C 4.2 4.0-6.0 Aug 23, 2022 11:16 AM [facility] C-REACTIVE PROTEIN Specimen Type: SERUM No comment entered. Ordering Provider: Serena ESQUIVEL Report Released Date/Time: Aug 23, 2022 10:47 AM Reporting Lab: [facility] [address] Performing Lab: [facility] [address] C-REACTIVE PROTEIN 3.14 See_Commen t Aug 23, 2022 11:16 AM [facility] COMPREHENSIVE METABOLIC PANEL+MG Specimen Type: PLASMA No comment entered. Ordering Provider: Serena ESQUIVEL Report Released Date/Time: Aug 23, 2022 10:47 AM Reporting Lab: [facility] [address] Performing Lab: [facility] [address] CREATININE 0.8 0.7-1.2 UREA NITROGEN 15 8-26 GLUCOSE 101 H 70-100 SODIUM 140 136-145 POTASSIUM 4.3 3.5-5.1 CHLORIDE 107 98-107 CO2 26 22-29 CALCIUM 9.2 8.4-10.2 PROTEIN,TOTAL 6.8 6.0-8.3 ALBUMIN 3.8 3.5-5.2 BILIRUBIN, TOTAL 0.7 0.2-1.2 MAGNESIUM 2.3 1.6-2.6 ANION GAP 7 5-15 ALKALINE PHOSPHATASE 98 40-150 ALT/SGPT 12 See_Commen t AST/SGOT 15 See_Commen t .CREAT EGFR(CKD-EPI) >90 See_Commen t Aug 23, 2022 11:16 AM [facility] CBC & DIFF Specimen Type: BLOOD Comment: Automated Differential Performed Ordering Provider: Serena ESQUIVEL Report Released Date/Time: Aug 23, 2022 10:47 AM Reporting Lab: [facility] [address] Performing Lab: [facility] [address] WBC 5.11 4.0-11.0 RBC 3.87 L 4.6-6.2 [...] IMMATURE GRAN 0.02 0-0.1 Aug 23, 2022 11:14 AM [facility] POC CREATININE Specimen Type: BLOOD No comment entered. Ordering Provider: LAVONNE PANCHAL Report Released Date/Time: Aug 23, 2022 11:16 AM Reporting Lab: [facility] [address] Performing Lab: [facility] [address] POC CREATININE 0.8 0.6-1.3 July 19, 2022 04:40 PM [facility] FINGERSTICK GLUCOSE Specimen Type: BLOOD Comment: Save Result Nurse Notified Ordering Provider: MACKENZIE COTTER Report Released Date/Time: July 19, 2022 05:00 PM Reporting Lab: [facility] [address] Performing Lab: [facility] [address] FINGERSTICK GLUCOSE 132 70-100 July 19, 2022 07:13 AM [facility] COMPREHENSIVE METABOLIC PANEL+MG Specimen Type: PLASMA No comment entered. Ordering Provider: MACKENZIE COTTER Report Released Date/Time: July 18, 2022 05:40 PM Reporting Lab: [facility] [address] Performing Lab: [facility] [address] CREATININE 0.9 0.7-1.2 UREA NITROGEN 24 8-26 [...] See_Commen t July 19, 2022 07:13 AM [facility] IRON GROUP Specimen Type: SERUM No comment entered. Ordering Provider: MACKENZIE COTTER Report Released Date/Time: July 18, 2022 05:40 PM Reporting Lab: [facility] [address] Performing Lab: [facility] [address] IRON 28 L 65-175 TIBC,CALCULATE D 223 L 250-425 FERRITIN 73.7 21.8-274.7 IRON SATURATION 13 L 20-50 TRANSFERRIN 178 163-382 July 19, 2022 07:13 AM [facility] CBC Specimen Type: BLOOD No comment entered. Ordering Provider: MACKENZIE COTTER Report Released Date/Time: July 18, 2022 05:40 PM Reporting Lab: [facility] [address] Performing Lab: [facility] [address] WBC 7.73 4.0-11.0 RBC 2.42 L 4.6-6.2 HGB 8.2 L 13.5-17.9 HCT 23.8 L 41-54 MCV 98.3 80-100 MCH 33.9 H 27-33 MCHC 34.5 32.0-37.5 PLT 155 150-400 MPV 9.6 7.4-10.4 RDW 13.5 11.5-14.5 July 19, 2022 05:44 AM [facility] FINGERSTICK GLUCOSE Specimen Type: BLOOD Comment: Save Result Nurse Notified Ordering Provider: MACKENZIE COTTER Report Released Date/Time: July 19, 2022 11:54 AM Reporting Lab: [facility] [address] Performing Lab: [facility] [address] FINGERSTICK GLUCOSE 137 70-100 July 18, 2022 10:51 PM [facility] FINGERSTICK GLUCOSE Specimen Type: BLOOD Comment: Save Result Nurse Notified Ordering Provider: MACKENZIE COTTER Report Released Date/Time: July 18, 2022 11:06 PM Reporting Lab: [facility] [address] Performing Lab: [facility] [address] FINGERSTICK GLUCOSE 163 70-100 July 17, 2022 06:51 AM [facility] BASIC METABOLIC PANEL+MG Specimen Type: PLASMA No comment entered. Ordering Provider: DANG VALLE R Report Released Date/Time: July 16, 2022 09:37 AM Reporting Lab: [facility] [address] Performing Lab: [facility] [address] CREATININE 0.8 0.7-1.2 UREA NITROGEN 23 8-26 GLUCOSE 107 H 70-100 SODIUM 139 136-145 POTASSIUM 3.9 3.5-5.1 CHLORIDE 106 98-107 CO2 28 22-29 CALCIUM 9.1 8.4-10.2 MAGNESIUM 1.9 1.6-2.6 ANION GAP 5 5-15 .CREAT EGFR(CKD-EPI) >90 See_Commen t July 17, 2022 06:51 AM [facility] PROTHROMBIN TIME/INR Specimen Type: PLASMA No comment entered. Ordering Provider: DANG VALLE R Report Released Date/Time: July 16, 2022 09:37 AM Reporting Lab: [facility] [address] Performing Lab: [facility] [address] .INR 1.0 0.8-1.1 .PT 11.5 9.4-12.5 July 17, 2022 06:51 AM [facility] CBC Specimen Type: BLOOD No comment entered. Ordering Provider: DANG VALLE R Report Released Date/Time: July 16, 2022 09:37 AM Reporting Lab: [facility] [address] Performing Lab: [facility] [address] WBC 6.05 4.0-11.0 RBC 3.77 L 4.6-6.2 HGB 12.7 L 13.5-17.9 HCT 36.0 L 41-54 MCV 95.5 80-100 MCH 33.7 H 27-33 MCHC 35.3 32.0-37.5 PLT 179 150-400 MPV 9.4 7.4-10.4 RDW 13.2 11.5-14.5 July 13, 2022 11:22 AM [facility] COVID-19 AND FLU/RSV DIAG PANEL(CEPHEID) Specimen Typ e: NASOPHARYNGEAL Comment: Cepheid GeneXpert (618) Ordering Provider: WHITNEY ANDERSON Report Released Date/Time: July 13, 2022 11:04 AM Reporting Lab: [facility] [address] Performing Lab: [facility] [address] COVID-19 (CEPHEID) Not Detected See_Commen t INFLUENZA A (PCR) Not Detected See_Commen t INFLUENZA B (PCR) Not Detected See_Commen t RSV (PCR) Not Detected See_Com men t July 13, 2022 11:00 AM [facility] C-REACTIVE PROTEIN Specimen Type: SERUM Comment: Automated Differential Performed Ordering Provider: WHITNEY ANDERSON Report Released Date/Time: July 13, 2022 11:04 AM Reporting Lab: [facility] [address] Performing Lab: [facility] [address] C-REACTIVE PROTEIN 1.17 <5.00 July 13, 2022 11:00 AM [facility] PROTHROMBIN TIME/INR Specimen Type: PLASMA No comment entered. Ordering Provider: WHITNEY ANDERSON Report Released Date/Time: July 13, 2022 11:04 AM Reporting Lab: [facility] [address] Performing Lab: [facility] [address] .INR 0.9 0.8-1.1 .PT 11.1 9.4-12.5 July 13, 2022 11:00 AM [facility] SED RATE Specimen Type: BLOOD No comment entered. Ordering Provider: WHITNEY ANDERSON Report Released Date/Time: July 13, 2022 11:04 AM Reporting Lab: [facility] [address] Performing Lab: [facility] [address] SED RATE 10 5-15 July 13, 2022 11:00 AM [facility] CBC & DIFF Specimen Type: BLOOD Comment: Automated Differential Performed Ordering Provider: WHITNEY ANDERSON Report Released Date/Time: July 13, 2022 11:04 AM Reporting Lab: [facility] [address] Performing Lab: [facility] [address] WBC 8.82 4.0-11.0 RBC 3.89 L 4.6-6.2 [...] 0.03 0-0.1 July 13, 2022 11:00 AM [facility] COMPREHENSIVE METABOLIC PANEL+MG Specimen Type: PLASMA Comment: Automated Differential Performed Ordering Provider: WHITNEY ANDERSON Report Released Date/Time: July 13, 2022 11:04 AM Reporting Lab: [facility] [address] Performing Lab: [facility] [address] CREATININE 1.0 0.7-1.2 UREA NITROGEN 16 8-26 [...] and tobacco- related health factors from the [facility] facility where the Encounter took place. Current Smoking Status This section includes the most current smoking, or tobacco-related health factor, from the [facility] facility where the Encounter took place. Date/Time Current Smoking Status Comment Facil ity May 10, 2022 09:15 AM VA-TOBACCO FORMER USER [facility] Tobacco Use History This section includes a history of the smoking, or tobacco-related health factors, that were collected on or before the date of the Encounter. The data comes from the [facility] facility where the Encounter took place. Date/Time Smoking Status/Tobacco Use Comment F acility May 10, 2022 09:15 AM VA-TOBACCO QUIT 15 YRS OR MORE [facility] May 11, 2021 09:15 AM VA-TOBACCO FORMER USER [facility] May 11, 2021 09:15 AM VA-TOBACCO QUIT 15 YRS OR MORE [facility] Nov 22, 2018 01:36 PM VA-TOBACCO NEVER USED [facility] Nov 12, 2017 07:35 AM FORMER TOBACCO USER 7Y OR GREATE R [facility] Nov 06, 2016 09:05 AM FORMER TOBACCO USER 7Y OR GREATE R [facility] Sep 27, 2015 09:42 AM FORMER TOBACCO USER 7Y OR GREATE R [facility] Sep 25, 2014 07:55 AM FORMER TOBACCO USER 7Y OR GREATE R [facility] Sep 08, 2013 07:48 AM FORMER TOBACCO USER 7Y OR GREATE R [facility] July 09, 2012 09:20 AM FORMER TOBACCO USE >1Y <7Y [facility] Jun 06, 2011 07:53 AM FORMER TOBACCO USE >1Y <7Y [facility] Sep 09, 2009 03:03 PM FORMER TOBACCO USE >1Y <7Y [facility] Aug 11, 2008 01:06 PM FORMER TOBACCO USE <1Y [facility] Sep 19, 2007 02:52 PM CURRENT TOBACCO USER [facility] Sep 03, 2006 03:32 PM CURRENT TOBACCO USER [facility] Advance Directives: All historical and current Section Date Range: From patient's date of to the date document was created. This section includes ALL of a patient's completed or amended [place] Advance and Rescinded Directives. The entries below indicate that a directive exists for the patient, but an actual copy is not included with this document. The data comes from all [facility]. Date Advance Directives Provider Source Mar 18, 2003 ADVANCE DIRECTIVE FARHAT MELGAR [facility] Radiology Reports: +/- 30 days of [...] the Encounter. The data comes from all [place] treatment facilities. Date/Time Radiology Report Provider Source Aug 23, 2022 01:11 PM MRI-BRAIN (P): MARYJO WAGNER [id number] -1950 M Exm Date: AUG 23, 2022@13:11 Req Phys: Serena ESQUIVEL Loc: [facility] EMERGENCY DEPT WALK-IN (Re Img Loc: MRI IMAGING Service: Unknown (Case [id number] COMPLETE) MRI BRAINBRAINSTEM W & W/O CONTRA(MRI Detailed) CPT:67864 Contrast Media : Gadolinium Reason for Study: APHASIA X3 DAYS Clinical History: MRI BRAIN WITH/WITHOUT CONTRAST [place] IS NOT under investigation for COVID-19 or is COVID-19 negative Did the ordering provider speak with a ux consultant regarding this imaging exam? Yes, Name of ux consultant (resident or staff):Neurology Aphasia x 3 days Responsible provider name and phone number to notify for critical findings if other than user placing the order and pager listed below: User placing orders pager: [phone] LAST CREATININE 0.8 (08/23/22) Allergies: HAZELNUTS (Nov 21, 2002) Report Status: Verified Date Reported: AUG 23, 2022 Date Verified: AUG 23, 2022 Plodder Operator E-Sig:/ES/TERESA SANTAMARIA MD Report: MRI BRAINBRAINSTEM [...] in the left supratentorial compartment results in ajvn-dn-eekea midline shift again measuring up to 1.4 [...] intracranial mass effect, with rightward subfalcine herniation (htul-ic-hptvg midline shift measures up to 1.4 cm) [...] Primary Interpreting Staff: TERESA SANTAMARIA MD, RADIOLOGIST (Plodder Operator) /[facility] TERESA SANTAMARIA [facility] Aug 23, 2022 12:03 PM CTA CAROTID/COW (P): MARYJO WAGNER [id number] -1950 M Exm Date: AUG 23, 2022@12:03 Req Phys: Serena ESQUIVEL Loc: [facility] EMERGENCY DEPT WALK-IN ([facility] Loc: CT IMAGING Service: Unknown (Case [id number] COMPLETE) CTA HEAD W/POSTPROCESSING (CT Detailed) CPT:73418 Contrast Media : unspecified contrast media Reason for Study: APHASIAx3 days (Case [id number] COMPLETE) CTA NECK (CT Detailed) CPT:29623 Contrast Media : unspecified contrast media Non-ionic [...] pager listed below: User placing orders pager: [phone] LAST 3: Collection DT Specimen Test Name [...] PLASMA ESTIMATED GFR(eGF >60 Ref: >=60 Allergies: ([place] only) HAZELNUTS (Nov 21, 2002) To see allergies from all [place] locations click Reports tab>Remote Data>All Available Sites>Clinical Reports>Allergies. Report Status: Verified Date Reported: AUG 23, 2022 Date Verified: AUG 23, 2022 Plodder Operator E-Sig:/ES/TERESA SANTAMARIA MD Report: CTA HEAD [...] contribute to left cerebral white matter edema. Gbwk-ta-btftt midline shift measures up to 1.4 cm. [...] left lateral ventricle. Rightward subfalcine herniation, with ccia-gf-jejzr midline shift measuring up to 1.4 cm. [...] Primary Interpreting Staff: TERESA SANTAMARIA MD, RADIOLOGIST (Plodder Operator) /[facility] TERESA SANTAMARIA [facility] Aug 23, 2022 09:29 AM ELBOW LEFT 3 OR MORE VIEWS: MARYJO WAGNER DIRK [id number] -1950 Ex Date: AUG 23, 2022@09:29 Req Phys: LEIF BALBUENA Pat Loc: [facility] 2F (Req'g Img Loc: MAIN X-RAY Service: Unknown (Case [id number] COMPLETE) ELBOW LEFT 3 OR MORE VIEWS (RAD Detailed) CPT:38853 Reason for Study: postop Clinical History: IS NOT under investigation for COVID-19 or is COVID-19 negative postop Responsible provider name and phone number to notify for critical findings if other than user placing the order and pager listed below: User placing orders pager: [phone] LAST CREATININE 0.9 (07/19/22) Report Status: Verified Date Reported: AUG 23, 2022 Date Verified: AUG 23, 2022 Plodder Operator E-Sig:/ES/ALBINA LEE MD Report: Exam: Left [...] Primary Interpreting Staff: ALBINA LEE MD, RADIOLOGIST (Plodder Operator) /ALBINA SALEH [facility] July 20, 2022 07:50 AM CHEST 1 VIEW: MARYJO WAGNER [id number] -1950 M Exm Date: JULY 20, 2022@07:50 Req Phys: VAHEMACKENZIE aDrwin Pat Loc: 07-20-2022@08:26 Img Loc: MAIN X-RAY Service: PRIMARY CARE - MED OFFICE (Case [id number] COMPLETE) CHEST 1 VIEW (RAD Detailed) CPT:68416 Proc Modifiers : PORTABLE EXAM Reason for Study: see below. thanks. Clinical History: IS NOT under investigation for COVID-19 or is COVID-19 negative Please further evaluate for acute airspace disease given o2 requirement. Thanks. Responsible provider name and phone number to notify for critical findings if other than user placing the order and pager listed below: User placing orders pager: [phone] same LAST CREATININE 0.9 (07/19/22) Report Status: Verified Date Reported: JULY 20, 2022 Date Verified: JULY 20, 2022 Plodder Operator E-Sig:/ES/JAMIE MIGUEL MD Report: EXAM: CHEST 1 VIEW HISTORY: see below. thanks. Reason for Study: see below. thanks. [place] IS NOT under investigation for COVID-19 or is COVID-19 negative Please further evaluate for acute airspace disease given o2 requirement. Thanks. Responsible provider name and phone number to notify for critical findings if other than user placing the order and pager listed below: User placing orders pager: [phone] same LAST CREATININE 0. COMPARISON: Chest CT [...] Primary Interpreting Staff: JAMIE MIGUEL MD, RADIOLOGIST (Plodder Operator) /JAMIE FRANCES [facility] July 18, 2022 12:59 PM ELBOW LEFT 2 VIEWS: MARYJO WAGNER [id number] -1950 M Exm Date: JULY 18, 2022@12:59 Req Phys: LEIF BALBUENA [facility]07[facility]18-[facility]@13:59 Img Loc: MAIN X-RAY Service: [facility]ZSURGICAL SERVICE (Case [id number] COMPLETE) ELBOW LEFT 2 VIEWS (RAD Detailed) CPT:79749 Proc Modifiers : PORTABLE EXAM, OPERATING ROOM EXAM Reason for Study: post-op Clinical History: post-op Report Status: Verified Date Reported: JULY 18, 2022 Date Verified: JULY 18, 2022 Plodder Operator E-Sig:/ES/JAKUB LEE MD Report: EXAM: ELBOW [...] Primary Interpreting Staff: JAKUB LEE MD, RADIOLOGIST (Plodder Operator) /[facility] JAKUB LEE [facility] July 18, 2022 07:30 AM FLUORO UP TO 1 HR PHYSICIAN TIME: MARYJO WAGNER [id number] -1950 M Exm Date: JULY 18, 2022@07:30 Req Phys: LEIF BALBUENA [facility]/07-18-20[facility]@13:14 Img Loc: MAIN X-RAY Service: PRIMARY CARE - MED OFFICE (Case [id number] COMPLETE) FLUORO UP TO 1 HR PHYSICIAN TIME (RAD Detailed) CPT:64138 Proc Modifiers : PORTABLE EXAM, OPERATING ROOM EXAM, LEFT Reason for Study: Left distal humerous ORIF Clinical History: OR 7 Pathologic distal humeral shaft fracture Responsible provider name and phone number to notify for critical findings if other than user placing the order and pager listed below: User placing orders pager: Henry BALBUENA [phone] LAST CREATININE 0.8 (07/17/22) Report Status: Electronically Filed Date Reported: JULY 18, 2022 Report: Impression: Please [facility] the [facility]. Fluoro guidance was provided during this procedure, but the study was not reviewed or verified by a [facility] radiologist. The radiation exposure dose has been recorded in the patient's chart. If you are unable to view this data, please contact the Imaging Department. VERIFIED BY: / *ELECTRONICALLY FILED* [facility] July 17, 2022 03:28 PM ABDOMINAL AORTOGRAM (P): MARYJO WAGNER [id number] -1950 M Exm Date: JULY 17, 2022@15:28 Req Phys: MALCOM LANGLEY [facility] Loc: 07-17-2022@15:54 Img Loc: INTERVENTIONAL RADIOLOGY Service: PRIMARY CARE - MED OFFICE (Case [id number] COMPLETE) ANGIOGRAPHY EXTREMITY UNILAT S&I (ANI Detailed) CPT:40511 Reason for Study: codes (Case 528 COMPLETE) IR AORTOGRAPHY ABDOMINAL W/O RUNO(ANI Detailed) CPT:29855 (Case 529 COMPLETE) IR FOREIGN BODY REMOVAL INTRAVASC(ANI Detailed) CPT:21313 (Case 532 COMPLETE) IR NEEDLE/INTRACATH PLACEMENT EXT(ANI Detailed) CPT:82878 (Case 533 COMPLETE) IR PLACEMENT OCCLUSIVE DEVICE SAM(ANI Detailed) CPT:G0269 Clinical History: codes Report Status: Verified Date Reported: JULY 17, 2022 Date Verified: JULY 17, 2022 Plodder Operator E-Sig:/ES/MALCOM LANGLEY MD Report: RADIOLOGIST: Malcom [...] angiogram and runoff. 12. Closure of right DIRECTOR OPERATIONS BROADCAST with Angio-Seal device. HISTORY: Metastatic renal cell [...] Sheath removed over guidewire and a 5 venezuelan vascular sheath advanced over guidewire into the artery. An H1 catheter was advanced along with the guidewire into the thoracic arch and the left subclavian artery was selected. Catheter and the guidewire were advanced into the left brachial artery. The 5 Portuguese sheath was exchanged for a 6 Portuguese sheath that was advanced into the left [...] arteries. Sheath and catheters were removed and DIRECTOR OPERATIONS BROADCAST arteriotomy was closed using Angioseal. There is patent hemostasis. No bleeding or hematoma noted. Sterile dressing applied. 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 Primary Interpreting Staff: MALCOM LANGLEY MD, INTERVENTIONAL RADIOLOGIST (Plodder Operator) /MALCOM HE [facility] July 17, 2022 07:30 AM RENAL ARTERY EMBOLIZATION (P): MARYJO WAGNER [id number] -1950 M Exm Date: JULY 17, 2022@07:30 Req Phys: WESTON VASQUEZ [facility]ly [facility] Loc: 07-17-2022@15:46 Im Loc: INTERVENTIONAL RADIOLOGY Service: PRIMARY CARE - MED OFFICE (Case 130 COMPLETE) IR TRANSCATH EMBOLIZATION W/ANGIO(ANI Detailed) CPT:74927 Reason for Study: embolization of RCC mets to left humerus (Case 131 COMPLETE) IR ARTERIAL EMBOLIZATION OTHER TH(ANI Detailed) CPT:49686 (Case 132 COMPLETE) IR US GUIDANCE VASCULAR ACCESS (ANI Detailed) CPT:45905 Clinical History: [place] IS NOT under investigation for COVID-19 or [...] pager listed below: User placing orders pager: [phone] LAST CREATININE 1.0 (07/13/22) Report Status: Verified Date Reported: JULY 17, 2022 Date Verified: JULY 17, 2022 Plodder Operator E-Sig:/ES/MALCOM LANGLEY MD Report: RADIOLOGIST: Malcom [...] angiogram and runoff. 12. Closure of right DIRECTOR OPERATIONS BROADCAST with Angio-Seal device. HISTORY: Metastatic renal cell [...] Sheath removed over guidewire and a 5 venezuelan vascular sheath advanced over guidewire into the artery. An H1 catheter was advanced along with the guidewire into the thoracic arch and the left subclavian artery was selected. Catheter and the guidewire were advanced into the left brachial artery. The 5 Portuguese sheath was exchanged for a 6 Portuguese sheath that was advanced into the left [...] arteries. Sheath and catheters were removed and DIRECTOR OPERATIONS BROADCAST arteriotomy was closed using Angioseal. There is patent hemostasis. No bleeding or hematoma noted. Sterile dressing applied. 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 Primary Interpreting Staff: MALCOM LANGLEY MD, INTERVENTIONAL RADIOLOGIST (Plodder Operator) /MALCOM HE [facility] July 14, 2022 06:44 AM HUMERUS LEFT MINIMUM 2 VIEWS: CARSONLELIAMARYJO CAVAZOS [id number] -1950 M Exm Date: JULY 14, 2022@06:44 Req Phys: WESTON VASQUEZ Pat Loc: 07-14-2022@07:13 Img Loc: MAIN X-RAY Service: PRIMARY CARE - MED OFFICE (Case [id number] COMPLETE) HUMERUS LEFT MINIMUM 2 VIEWS (RAD Detailed) CPT:06658 Reason for Study: post reduction Clinical History: Report Status: Verified Date Reported: JULY 14, 2022 Date Verified: JULY 14, 2022 Plodder Operator E-Sig: Report: HUMERUS LEFT MINIMUM 2 VIEWS HISTORY: post reduction COMPARISON: 07/13/2022 TECHNIQUE: 2 view(s) of the humerus, submitted to the [place] National Teleradiology Program (NTP) for interpretation. FINDINGS: [...] less likely. READING PHYSICIAN: Xavier Merrill MD -[phone] 07/14/2022 5:[address] [facility] National Teleradiology Program [phone] (For Medical Practitioner Use Only) Attention Patients / Veterans: If you have questions or concerns about these test results, please contact your ordering provider or primary care team. Primary Interpreting Staff: RADIOLOGY,OUTSIDE SERVICE, Staff Physician / RADIOLOGY,OUTSIDE SERVICE [facility] July 13, 2022 10:07 AM ELBOW LEFT 3 OR MORE VIEWS: CARSONLELIAMARYJO CAVAZOS [id number] -1950 M Ex Date: JULY 13, 2022@10:07 Req Phys: WHITNEY ANDERSON Pat Loc: [facility] EMERGENCY DEPT WALK-IN (Re Img Loc: MAIN X-RAY Service: Unknown (Case [id number] COMPLETE) ELBOW LEFT 3 OR MORE VIEWS (RAD Detailed) CPT:72358 Proc Modifiers : LEFT Reason for Study: [...] pager listed below: User placing orders pager: [phone] LAST CREATININE 0.8 (05/10/22) Report Status: Verified Date Reported: JULY 13, 2022 Date Verified: JULY 13, 2022 Plodder Operator E-Sig:/ES/ALBINA COWAN MD, FACR, CCD Report: [...] Staff: ALBINA COWAN MD, FACR, STAFF RADIOLOGIST (Plodder Operator) /BSF ALBINA COWAN [facility] July 13, 2022 10:07 AM HUMERUS LEFT MINIMUM 2 VIEWS: MARYJO WAGNER [id number] -1950 M Exm Date: JULY 13, 2022@10:07 Req Phys: WHITNEY ANDERSON Pat Loc: [facility] EMERGENCY DEPT WALK-IN ( Img Loc: MAIN X-RAY Service: Unknown (Case [id number] COMPLETE) HUMERUS LEFT MINIMUM 2 VIEWS (RAD Detailed) CPT:20266 Proc Modifiers : LEFT Reason for Study: L arm pain Clinical History: [place] IS NOT under investigation for COVID-19 or is COVID-19 negative Atraumatic left upper extremity pain that is located midshaft humerus distally to the mid forearm. Clinical concern for dislocation versus fracture versus bone mets Responsible provider name and phone number to notify for critical findings if other than user placing the order and pager listed below: User placing orders pager: [phone] LAST CREATININE 0.8 (05/10/22) Report Status: Verified Date Reported: JULY 13, 2022 Date Verified: JULY 13, 2022 Plodder Operator E-Sig:/ES/ALBINA COWAN MD, FACR, CCD Report: [...] Staff: ALBINA COWAN MD, FACR, STAFF RADIOLOGIST (Plodder Operator) /ALBINA NATHAN [facility] July 13, 2022 10:07 AM FOREARM LEFT 2 VIEWS: MARYJO WAGNER [id number] -1950 M Exm Date: JULY 13, 2022@10:07 Req Phys: WHITNEY ANDERSON Pat Loc: [facility] EMERGENCY DEPT WALK-IN (Re Img Loc: MAIN X-RAY Service: Unknown (Case [id number] COMPLETE) FOREARM LEFT 2 VIEWS (RAD Detailed) CPT:29200 Proc Modifiers : LEFT Reason for Study: [...] pager listed below: User placing orders pager: [phone] LAST CREATININE 0.8 (05/10/22) Report Status: Verified Date Reported: JULY 13, 2022 Date Verified: JULY 13, 2022 Plodder Operator E-Sig:/ES/ALBINA COWAN MD, FACR, CCD Report: [...] Staff: ALBINA COWAN MD, FACR, STAFF RADIOLOGIST (Plodder Operator) /ALBINA NATHAN [facility] Pathology Reports: +/- 30 days of the [...] the Encounter. The data comes from all [place] treatment facilities. Date/Time Pathology Report Provider Source July 13, 2022 04:06 PM LR SURGICAL PATHOL OGY REPORT: LOCAL TITLE: LR SURGICAL PATHOLOGY REPORT STANDARD TITLE: PATHOLOGY REPORT DATE OF NOTE: JULY 21, 2022@14:37:27 ENTRY DATE: JULY 21, 2022@14:37:27 AUTHOR: JIAN SANDOVAL EXP COSIGNER: URGENCY: STATUS: COMPLETED $APHDR Reporting Lab: [facility] [CLIA# [id number]] [place] [address] - - - - - - - [...] - - - PATHOLOGY REPORT Accession No. -SD [id number] - - - - - - - - - - - - - - - - - - - - - - - - - - - - - - - - - - - - - - - - $TEXT Submitted by: LEIF BALBUNEA Date obtained: July 18, 2022 - - [...] SANDOVAL STAFF PATHOLOGIST, PATHOLOGY & LABORATORY [facility] Signed July 21, 2022@14:37 Performing Laboratory: Surgical Pathology Report Performed By: [facility] [CLIA# [id number]] [place] [address] $FTR - - - - - - - - - - - - - - - - - - - - - - - - - - - - - - - - - - - - - - - - (End of report) JIAN SANDOVAL MD s Date July 21, 2022 - - - - - - - - - - - - - - - - - - - - - - - - - - - - - - - - - - - - - - - - MARYJO WAGNER STANDARD FORM 515 ID:[id number] SEX:M :1950 AGE: 72 LOC:[facility] PATHOLOGY PRO FEE ADM:June DX:PATHOLOGIC FX LF HUMERUS PCP: Leif Balbuena MD /sangita/ JIAN SANDOVAL STAFF PATHOLOGIST, PATHOLOGY & LABORATORY [facility] Signed: 07/21/2022 14:37 JIAN SANDOVAL [facility] Encounter Notes: All associated encounter notes This section contains the clinical notes associated to the Encounter. Date/Time Encounter Note(s) Provider Source Aug 01, 2022 08:47 AM PHARMACY NOTE: LOCAL TITLE: PHARMACY CALL CENTER MEDICATION RENEWAL REQUEST STANDARD TITLE: PHARMACY NOTE DATE OF NOTE: AUG 01, 2022@08:47 ENTRY DATE: AUG 01, 2022@08:47:45 AUTHOR: JOSÉ SALAZAR EXP COSIGNER: URGENCY: STATUS: COMPLETED Medication renewal(s) requested by patient for: Controlled substance(s): Medication renewal(s) requested by: vet Controlled substance(s): OXYCODONE 5MG Medications to be: MAILED OUT A Naloxone prescription with a status of Active, , Hold or Suspended was not found. ========= CONSENT FOR INTERMEDIATE OPIOID THERAPY (opioids only) ========= No consent found ========= PRESCRIPTION DRUG MONITORING PROGRAM (PDMP) (frequency of PDMP checks should be done in compliance with most restrictive guidance considering provider licensure, state and local/[facility] policy) ========= No PDMP data available ========= ========= LAST URINE DRUG SCREEN (opioids only) (Every 3 months or per local requirement or when clinically indicated) ========= No UDS data found ========= MEDICATIONS ========= Active and Recently Outpatient Medications (excluding Supplies): Active Outpatient Medications Status 1) ACETAMINOPHEN 325MG TAB TAKE TWO TABLETS BY MOUTH ACTIVE EVERY 6 HOURS NEEDED FOR PAIN 2) ASPIRIN 81MG EC TAB TAKE TWO TABLETS BY MOUTH EVERY ACTIVE DAY TO PREVENT BLOOD CLOTS TAKE UNTIL TOLD OKAY TO DISCONTINUE BY ORTHOPEDICS 3) LISINOPRIL 20MG TAB TAKE ONE TABLET BY MOUTH EVERY ACTIVE DAY FOR BLOOD PRESSURE 4) LUBRICATING TOP JELLY BACTERIOSTATIC APPLY JELLY ACTIVE TOPICALLY DIRECTED 5) OXYCODONE 5MG TAB TAKE ONE TABLET BY MOUTH Q6 ACTIVE NEEDED FOR PAIN 6) POLYETHYLENE GLYCOL 3350 ORAL PWDR TAKE 17 GRAMS BY ACTIVE MOUTH EVERY DAY NEEDED FOR CONSTIPATION 7) PREGABALIN 25MG ORAL CAP TAKE ONE CAPSULE BY MOUTH ACTIVE THREE TIMES A DAY FOR PAIN TAPER PAIN IMPROVES Inactive Outpatient Medications Status 1) SODIUM FLUORIDE 1.1% TOOTHPASTE USE SMALL AMOUNT MOUTH EVERY MORNING AND AT BEDTIME ON TOOTHBRUSH, BRUSH FOR 2 MINUTES Active Non-VA Medications Status 1) Non-VA ASPIRIN TAB 81MG MOUTH EVERY DAY ACTIVE 2) Non-VA CHONDROITIN CAP/TAB 1 TABLET TWICE A DAY ACTIVE 3) Non-VA GLUCOSAMINE CAP/TAB 1 TABLET TWICE A DAY ACTIVE 4) Non-VA MULTIVITAMIN CAP/TAB 1 TABLET MOUTH EVERY DAY ACTIVE 12 Total Medications ALLERGIES: HAZELNUTS (Nov 21, 2002) /sangita/ JOSÉ SALAZAR CPHT V23 [facility] CONSTRUCTION ANALYST Signed: 08/01/2022 08:48 Receipt Acknowledged By: * AWAITING SIGNATURE * CORRY MCGRAW * AWAITING SIGNATURE * JUANY WYNN MEGAN T [facility]
--- OUTSIDE RECORDS SUMMARY | 2023-03-24 08:28 | XMS_ITS | Encounter Summary ---
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 of Vetera [facility] Address [address] [place] [address] Support Name Relationship Address Phone DOREEN WAGNER Next of Kin [address] [place] [phone] DOREEN Emergency Contact [address] [place] [phone] Insurance Providers: All historical and current [...] Policy [place] [employer] (WNR) MEDICARE ADVANTAGE [facility] (WNR) June 26, 2016 [id number] JOAN WAGNER KARSTEN PATIENT [employer] (WNR) MEDICARE ADVANTAGE [facility] (WNR) June 26, 2016 [id number] [phone] JOAN WAGNER KARSTEN PATIENT [employer] M[employer] (WNR) MEDICARE ADVANTAGE [facility] (WNR) June 26, 2016 [id number] JOAN WAGNER PATIENT Selected Encounter This section includes the information on record at [place] for the Encounter. Date/Time Encounter Type Encounter Description Reason Pro vider Source Apr 13, 2022 12:00 AM Outpatient Encounter EVENT (HISTORICAL) IHE Encounter Template Text not used by [place] Plan of Treatment: Future Appointments (+ 6 [...] 20 appointments. The data comes from all [facility]. Appointment Date/Time Appointment Type Appointme nt Facility Name Apr 26, 2022 10:00 AM AM[place]UL[place] [facility] May 10, 2022 08:15 AM [facility] May 10, 2022 09:15 AM [facility] May 17, 2022 08:00 AM [facility] July 13, 2022 08:57 [facility] Jul 28, 2022 10:45 AM [facility] Aug 13, 2022 06:13 PM [facility] Aug 23, 2022 09:30 AM AM[place] [facility] Aug 23, 2022 09:45 AM AMBULATORY - NONE [facility] Aug 23, 2022 10:30 AM [facility] Aug 23, 2022 10:31 AM [facility] Sep 06, 2022 10:15 AM AMBULATORY - SURGERY [facility] Active, Pending, and Scheduled Orders This section includes a listing of several types of active, pending, and scheduled orders, including clinic medications orders, diagnostic test orders, procedure orders and consult orders; where the start date of the order is 45 days before the date of the Encounter or 45 days after the date of theEncounter. The data comes from all [facility]. Test Date/Time Test Type Test Details Facility Name May 22, 2022 12:00 AM Laboratory - Chemistry Order CBC & DIFF BLOOD ONCO SP ONCE [facility] May 22, 2022 12:00 AM Laboratory - Chemistry Order TSH W/REFLEX TO FREE T4 PLASMA ONCO [facility] May 22, 2022 12:00 AM Laboratory - Chemistry Order COMPREHENSIVE METABOLIC PANEL+MG PLASMA ONCO [facility] Lab Results: +/- 30 days of the encounter This section includes the Chemistry and Hematology Lab Results on record with [facility] for the patient. Radiology Reports and Pathology Reports are provided separately, in subsequent sections. Lab Results This section contains the Chemistry/Hematology Results that were resulted 30 days before or 30 daysafter the date of the Encounter. Date/Time Source Result Type Result - Unit Interpretation Reference Range Comment May 10, 2022 08:[address] [facility] PSA Specimen Type: SERUM No comment entered. Ordering Provider: JUANY WYNN Report Released Date/Time: May 11, 2021 09:37 AM Reporting Lab: [facility] [id number] Performing Lab: [facility] [id number] PSA 8.25 H <4.00 May 10, 2022 08:[address] [facility] BASIC METABOLIC PANEL+MG Specimen Type: PLASMA No comment entered. Ordering Provider: JUANY WYNN Report Released Date/Time: May 11, 2021 09:37 AM Reporting Lab: [facility] [id number] Performing Lab: [facility] [id number] CREATININE 0.8 0.7-1.2 UREA NITROGEN 12 8-26 GLUCOSE 97 70-100 SODIUM 137 136-145 POTASSIUM 4.1 3.5-5.1 CHLORIDE 104 98-107 CO2 27 22-29 CALCIUM 9.1 8.4-10.2 MAGNESIUM 2.1 1.6-2.6 ANION GAP 6 5-15 CREAT EGFR(CKD-EPI ) >90 >60 Apr 13, 2022 01:[address] [facility] POC CREATININE Specimen Type: BLOOD No comment entered. Ordering Provider: JUANY WYNN Report Released Date/Time: Apr 13, 2022 01:48 PM Reporting Lab: [facility] [id number] Performing Lab: [facility] [id number] POC CREATININE 1.0 0.6-1.3 Apr 13, 2022 11:[address] [facility] PSA Specimen Type: SERUM No comment entered. Ordering Provider: MAX BOOGIE Report Released Date/Time: Oct 12, 2021 10:23 AM Reporting Lab: [facility] [id number] Performing Lab: [facility] [id number] PSA 8.75 H <4.00 Social History: Smoking Status (Most current) and Tobacco Use (All prior to encounter date) This section includes the most current, and the historical, smoking and tobacco- related health factors from the [place] facility where the Encounter took place. Current Smoking Status This section includes the most current smoking, or tobacco-related health factor, from the [place] facility where the Encounter took place. Date/Time Current Smoking Status Comment Facil ity May 11, 2021 09:15 AM VA-TOBACCO FORMER USER [facility] Tobacco Use History This section includes a history of the smoking, or tobacco-related health factors, that were collected on or before the date of the Encounter. The data comes from the [place] facility where the Encounter took place. Date/Time Smoking Status/Tobacco Use Comment F acility May 11, 2021 09:15 AM VA-TOBACCO QUIT [address] [facility] Nov 22, 2018 01:36 PM VA-TOBACCO NEVER USED [facility] Nov 12, 2017 07:35 AM FORMER TOBACCO USER 7Y OR GREATE R [facility] Nov 06, 2016 09:05 AM FORMER TOBACCO USER 7Y OR GREATE R [facility] Sep 27, 2015 09:42 AM FORMER TOBACCO USER 7Y OR GREATE R [facility] Sep 25, 2014 07:55 AM FORMER TOBACCO USER 7Y OR GREATE R [facility] Sep 08, 2013 07:48 AM FORMER TOBACCO USER 7Y OR GREATE R [facility] July 09, 2012 09:20 AM FORMER TOBACCO USE >1Y <7Y [facility] Jun 06, 2011 07:53 AM FORMER TOBACCO USE >1Y <7Y [facility] Sep 09, 2009 03:03 PM FORMER TOBACCO USE >1Y <7Y [facility] Aug 11, 2008 01:06 PM FORMER TOBACCO USE <1Y [facility] Sep 19, 2007 02:52 [address] TOBACCO USER [facility] Sep 03, 2006 03:32 [address] TOBACCO USER [facility] Advance Directives: All historical and current Section Date Range: From patient's date of to the date document was created. This section includes ALL of a patient's completed or amended [place] Advance and Rescinded Directives. The entries below indicate that a directive exists for the patient, but an actual copy is not included with this document. The data comes from all [facility]. Date Advance Directives Provider Source Mar 18, 2003 ADVANCE DIRECTIVE FARHAT MELGAR [facility] Radiology Reports: +/- 30 days of the [...] the Encounter. The data comes from all [place] treatment facilities. Date/Time Radiology Report Provider Source Apr 13, 2022 01:[address] (CAP) CHEST/ABD/PELVIS (P): MARYJO WAGNER [id number] -[id number] M Exm Date: APR 13, 2022@13:48 Req Phys: KELLY BOOGIE Pat Loc: [facility]OL CHIEF RES.2V (Req'g L Img Loc: CT IMAGING Service: Unknown (Case [id number] COMPLETE) CT (CAP) CHEST W CONTRAST (CT Detailed) CPT:08245 Contrast Media : Non-ionic Iodinated Reason for Study: metastatic RCC surveillance (Case [id number] COMPLETE) CT (CAP) ABDOMEN/PELVIS W CONTRAS(CT Detailed) CPT:57111 Contrast Media : Non-ionic Iodinated Clinical History: metastatic RCC surveillance [place] IS NOT under investigation for COVID-19 or is COVID-19 negative Defer to radiologist for final CT protocol. Responsible provider name and phone number to notify for critical findings if other than user placing the order and pager listed below: User placing orders pager: [phone] LAST 3: Collection DT Specimen Test Name Result Units Ref Range 05/11/2021 07:57 PLASMA CREATININE 0.7 mg/dL 0.7 - 1.2 03/17/2020 09:04 PLASMA CREATININE 0.7 mg/dL 0.7 - 1.2 09/24/2019 09:16 PLASMA CREATININE 0.8 mg/dL 0.7 - 1.2 05/11/2021 07:57 PLASMA CREAT EGFR(CKD-EP >90 Ref: >=60 03/17/2020 09:04 PLASMA ESTIMATED GFR(eGF >60 Ref: >=60 09/24/2019 09:16 PLASMA ESTIMATED GFR(eGF >60 Ref: >=60 02/28/2019 06:42 PLASMA ESTIMATED GFR(eGF >60 Ref: >=60 Allergies: ([facility]) DANETTEKULWINDERABDULAZIZ (Nov 21, 2002) Report Status: Verified Date Reported: APR 13, 2022 Date Verified: APR 13, 2022 Contamination Consultant E-Sig:/ES/CORBIN MORROW MD Report: EXAM: CT chest, abdomen, and pelvis without/ and with intravenous contrast. 04/13/2022 HISTORY: 71 year old male with metastatic renal cell carcinoma. CT March 21, 2021 showed possible slight decrease in size of left renal mass, 8.5 x 8.5 x 8.2 cm, previously 8.8 x 8.7 x 8.8 cm on 09/09/2020. 1 cm persistently enhancing lesion medial left kidney unchanged since August 2020, but increased since 2019, concerning for a second renal cell carcinoma versus intrarenal metastatic disease. 5 mm partially exophytic solid mass arising from the mid right kidney new since 03/10/2020, better seen than August 2020, concerning for right-sided renal cell carcinoma versus metastatic disease. Pancreatic metastasis remained stable since 2020, slightly increased from 2018 to 2019. Bilateral thyroid nodules, which had slightly increased in size, right nodule appearing cystic. Left thyroid nodule biopsied in July 2017 showed atypical cells of indeterminate significance. New ill-defined patchy and slightly rounded groundglass opacities in the lung parenchyma bilaterally, favored as infectious or inflammatory. Follow-up. TECHNIQUE: Helical CT image data was obtained of the chest, abdomen, and pelvis with intravenous contrast. 101 mL of Omnipaque 350 Multiplanar reformats of the chest were performed with axial MIP reconstructions. Total dose DLP 912 mGy*cm. COMPARISON: Multiple priors, CT chest abdomen and pelvis 10/07/2021, 03/21/2021, 09/09/2020, 09/24/2019, additional chest abdomen pelvis CTs dating back to 11/27/2017. Abdomen pelvis CTs 03/10/2020, 08/27/2017, 05/13/2017 FINDINGS: LOWER NECK:Partially imaged thyroid, with redemonstration of bilateral inferior thyroid nodules. Left nodule previously biopsied, indeterminant cellularity, currently 3.0x 3.9 x 2.0 cm (previously 3.6 x 2.7 x 3.3 cm). Incompletely visualized complex appearing right thyroid lobe mass, 2.7 x 1.7 cm (previously 1.9 x 1.3 cm). LUNGS AND PLEURA: At least mild elevation of right hemidiaphragm, 3.5 cm above the left. Subtle increased groundglass opacities in the posterior costophrenic sulci, right more so than left, favored as atelectatic. No areas of focal opacification or consolidation. Minimal centrilobular emphysema bilaterally. Tracheobronchial tree patent. Coarse calcified granulomas inferior central lingula, left perihilar, and pericarinal regions. No new infiltrates or pulmonary nodules. No pleural effusion, or pneumothorax. Stable mild irregular pleural thickening posterior left lower lobe. A few very tiny pulmonary nodules, unchanged, example 2.5 mm posterior central right lower lobe, image 194 series 3. As the patient has prior neoplasm, these are technically indeterminant. MEDIASTINUM: The heart size is normal. Mild calcifications of the coronary arteries. At least moderate calcification of aortic valve leaflets and annulus, which can have an association with aortic valve stenosis. Mild scattered atherosclerotic calcifications of the aortic arch. Ectatic ascending aorta measuring 4.4 cm (previously 4.3 cm). Large pulmonary artery measuring 3.8 mm. Mediastinal lymph nodes measuring up to 9 mm, borderline enlarged. A few small paraesophageal nodes in the periaortic distribution. HEPATOBILIARY: Liver 16.5 cm in midclavicular line, mildly enlarged. Multiple small calcified hepatic granulomas. Intrahepatic portal veins patent. No new suspect focal liver mass. Gallbladder moderately filled, without wall thickening or features of cholecystitis or biliary obstruction. Possible tiny dependent gallstone the antrum, image 303 series 2, image 82 series 4. No choledocholithiasis. SPLEEN: 14.8 cm, enlarged, without focal splenic mass. Numerous calcified splenic granulomas. Small splenule is present. PANCREAS: Redemonstration of enhancing mass within anterior pancreatic body/neck, 2.3 x 2.4 x 2.6 cm (previously 2,2 x 2.0 x 1.4 cm), with an asymmetrically enhancing 1 cm nodular component at its posterior margin, near the splenic portal vein confluence (image 295 series 2), all presumably enlarging renal cell metastasis. Second smaller enhancing solid mass within pancreatic head, 1.1 x 1.2 x 1.2 cm, image 351 series 2, seen on 10/07/2021, not present on 03/21/2021, also presumed renal cell metastasis. Additional very small potential metastases may be present. ADRENAL GLANDS: Left adrenals are unremarkable. The right adrenal contains a 1.1 x 1.3 x 1.5 cm solid appearing nodule, increasing conspicuity since 10/07/2021. Early new metastasis possible. KIDNEYS/URETERS: Right kidney: - Larger 1.4 x 1.3 x 0.9 cm exophytic enhancing mass medial mid posterior right renal cortex (previously 1.0 x 0.8 x 1.0 cm), axial image series 2 image #365, coronal series 4 image #100), de mahamed renal cell carcinoma versus renal cell metastasis. - Second 2.3 x 2.2 x 1.9 cm well-circumscribed low attenuating (18 Hounsfield unit) partially exophytic mass anterior medial mid right kidney (series 4 image 88 coronal, series 2 image 337 axial), technically indeterminant, potentially mildly complex renal cyst. Ultrasound 07/06/2017 shows the focus avascular, and a simple cyst. No further workup recommended. - 11 mm fluid attenuation exophytic focus posterior superior left kidney, image 322 series 2, consistent with simple cyst. No further workup recommended. Left kidney: - 5.0 x 8.8 x 8.9 cm exophytic peripherally enhancing (heavily vascularized) centrally low attenuation mass extending from inferior lateral left kidney (axial image series 2 image #394, coronal image series 4 image #101), similar appearance to CT 10/07/2021, volume and character grossly unchanged. -Larger 2.3 x 1.8 x 1.7 cm solid enhancing exophytic mass inferior medial left renal cortex (axial image series 2 image #407, coronal image series 4 image #83)., Previously 1.9 x 1.6 x 1.4 cm. - 1 cm exophytic fluid attenuation focus at the anterior inferior right kidney, example image 388 series 2, consistent with simple cyst. No further workup recommended. No renal collecting system stone or evidence of obstruction. BLADDER/PELVIC ORGANS: Prostate markedly enlarged, 9.8 x 6.3 x 6.9 cm, containing corpora amylacea calcifications. Prominent impression of the median lobe prostate into the urinary bladder base. The urinary bladder is moderately filled, with asymmetric moderate wall thickening primarily posteriorly, favored to represent increased trabeculation, and some redundancy due to prostate impression. Small superior left anterior urinary bladder diverticulum, image 504 series 2. Likely additional intramural diverticuli, example superior lateral left bladder wall, image 519 series 2. GI TRACT: Few distal colonic diverticuli. No features of diverticulitis. Normal appendix. PERITONEUM/RETROPERITONEUM: Left inguinal canal fat hernia, which contains multiple contrast-enhanced varicosities from the gonadal vein, with probable varicoceles. LYMPH NODES: No enlarged retroperitoneal or pelvic lymph nodes by short axis criteria. MAJOR VESSELS: No abdominal aortic aneurysm or dissection. The major abdominal vasculature appears patent. Internal iliac arteries measure up to 12 mm left, and 10 mm right. The portal vein is patent. BONE AND SOFT TISSUE: Moderate to advanced primarily mid to lower thoracic and lower lumbar degenerative disc disease, with mild chronic compression deformity of several mid to lower thoracic vertebral bodies with resulting kyphosis. Advanced left and moderate to advanced right shoulder degenerative change. Impression: 1. 8.9 x 8.8 x 5.0 cm exophytic renal cell carcinoma extending from the inferior lateral aspect of the left kidney, slightly larger. Additional solid renal masses include: - larger 2.3 x 1.8 x 1.7 cm exophytic inferior medial anterior left kidney - larger 1.4 x 1.3 x 0.9 cm medial mid posterior right kidney additional possible renal cell renal cell carcinomas or renal cell carcinoma metastases. 2. Enhancing masses within the pancreatic body/neck, and anterior pancreatic head, slightly larger, which could represent primary pancreatic masses, or metastatic renal cell carcinoma. 3. Possible early metastasis to the right adrenal gland. 4. Markedly enlarged prostate, with prominent impression into the urinary bladder base. Recommend correlation with PSA. 5. Hepatosplenomegaly in the setting of granulomatous disease. 6. Significantly enlarged pulmonary artery, consistent with elevated pulmonary arterial pressures. 7. 4.4 cm borderline ascending aortic aneurysm. At least moderate calcification of aortic valve leaflets, which can have an association with aortic valve stenosis. 8. Bilateral thyroid nodules redemonstrated, incompletely imaged, previously biopsied on the left, with indeterminate cytology. 9. Left inguinal canal fat hernia, with prominent gonadal vessels, possible left varicocele. If further assessment is desired, scrotal ultrasound could be considered. 10. Very tiny stable pulmonary nodules, technically indeterminant. Recommend attention on subsequent surveillance. ICORBIN, have reviewed the images and report. Primary Interpreting Staff: CORBIN MORROW MD, RADIOLOGIST (Contamination Consultant) Primary Interpreting Resident: JON BANUELOS, , AUTOMOTIVE INSTRUCTOR /CJL CORBIN MORROW [facility]
--- OUTSIDE RECORDS SUMMARY | 2023-03-24 08:29 | XMS_ITS | Encounter Summary ---
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 of Vetera [facility] Address [address] [place] [address] Support Name Relationship Address Phone DOREEN WAGNER Next of Kin [phone] [place] [phone] DOREEN Emergency Contact [address] [place] [phone] Insurance Providers: All historical and current [...] Policy [place] [employer] (WNR) MEDICARE ADVANTAGE [facility] (WNR) June 26, 2016 [id number] JOAN WAGNER KARSTEN PATIENT [employer] (WNR) MEDICARE ADVANTAGE [facility] (WNR) June 26, 2016 [id number] JOAN WAGNER KARSTEN PATIENT [employer]MA[employer] MCR (WNR) MEDICARE ADVANTAGE [facility] (WNR) June 26, 2016 [id number] [phone] JOAN WAGNER PATIENT Selected Encounter This section includes the information on record at [place] for the Encounter. Date/Time Encounter Type Encounter Description Reason Pro vider Source Aug 04, 2022 01:21 PM Outpatient Encounter TELEPHONE TRIAGE IHE Encounter Template Text not used by PR Plan of Treatment: Future Appointments (+ 6 [...] 20 appointments. The data comes from all [facility]. Appointment Date/Time Appointment Type Appointme nt Facility Name Aug 13, 2022 06:13 PM AMBULATORY - MEDICINE [facility] Aug 23, 2022 09:30 AM AMBULATORY - SURGERY [facility] Aug 23, 2022 09:45 AM AMBULATORY - NONE [facility] Aug 23, 2022 10:30 AM AMBULATORY - MEDICINE [facility] Aug 23, 2022 10:31 AM AMBULATORY - MEDICINE [facility] Sep 06, 2022 10:15 AM AMBULATORY - SURGERY [facility] Oct 25, 2022 07:00 AM AMBULATORY - NONE [facility] Oct 25, 2022 07:30 AM AMBULATORY - SURGERY [facility] Oct 25, 2022 09:00 AM AMBULATORY - SURGERY [facility] Active, Pending, and Scheduled Orders This section includes a listing of several types of active, pending, and scheduled orders, including clinic medications orders, diagnostic test orders, procedure orders and consult orders; where the start date of the order is 45 days before the date of the Encounter or 45 days after the date of theEncounter. The data comes from all [facility]. Test Date/Time Test Type Test Details Facility Name July 14, 2022 12:00 AM Laboratory - Blood Bank Order ABO/RH - LAB BLOOD [facility] July 14, 2022 02:05 PM Laboratory - Blood Bank Order TYPE & SCREEN - LAB BLOOD [facility] Aug 07, 2022 11:23 AM Laboratory - Chemi stry Order DRUG SCREEN PANEL,URINE URINE ONCE [facility] Aug 23, 2022 10:47 AM Laboratory - Chemi stry Order URINALYSIS URINE ER STAT [facility] Lab Results: +/- 30 days of the encounter This section includes the Chemistry and Hematology Lab Results on record with PR for the patient. Radiology Reports and Pathology Reports are provided separately, in subsequent sections. Lab Results This section contains the Chemistry/Hematology Results that were resulted 30 days before or 30 daysafter the date of the Encounter. Date/Time Source Result Type Result - Unit Interpretation Reference Range Comment Aug 24, 2022 12:15 PM [facility] URINALYSIS Specimen Type: URINE No comment entered. Ordering Provider: DAWIT KIM Report Released Date/Time: Aug 24, 2022 09:34 AM Reporting Lab: [facility] [address] Performing Lab: [facility] [address] URINE COLOR YELLOW SPECIFIC GRAVITY 1.030 1.003-1.03 [...] See_Commen t Aug 23, 2022 11:16 AM [facility] PROTHROMBIN TIME/INR Specimen Type: PLASMA No comment entered. Ordering Provider: Serena ESQUIVEL Report Released Date/Time: Aug 23, 2022 10:47 AM Aug 23, 2022 11:16 AM [facility] ACT PART THROMBO TIME Specimen Type: PLASMA No comment entered. Ordering Provider: Serena ESQUIVEL Report Released Date/Time: Aug 23, 2022 10:47 AM Reporting Lab: [facility] [address] Performing Lab: [facility] [address] APTT 30.2 25.1-36.5 Aug 23, 2022 11:16 AM [facility] LIPID PANEL,NON-FASTING Specimen Type: PLASMA No comment entered. Ordering Provider: Serena ESQUIVEL Report Released Date/Time: Aug 23, 2022 10:47 AM Reporting Lab: [facility] [address] Performing Lab: [facility] [address] CHOLESTEROL 129 See_Comm en t .HDL 36 L See_Commen t LDL CALCULATION 68 See_Commen t VLDL CALCULATION 25 See_Commen t NON HDL CHOLESTEROL 93 See_Commen t TRIG(NON FASTING) 123 See_Commen t Aug 23, 2022 11:16 AM [facility] TSH W/REFLEX TO FREE T4 Specimen Type: PLASMA No comment entered. Ordering Provider: Serena ESQUIVEL Report Released Date/Time: Aug 23, 2022 10:47 AM Reporting Lab: [facility] [address] Performing Lab: [facility] [address] TSH 1.54 0.35-4.94 Aug 23, 2022 11:16 AM [facility] CARDIAC TROPONIN I Specimen Type: PLASMA No comment entered. Ordering Provider: Serena ESQUIVEL Report Released Date/Time: Aug 23, 2022 10:47 AM Reporting Lab: [facility] [address] Performing Lab: [facility] [address] CARDIAC TROPONIN I <0.028 See_Commen t Aug 23, 2022 11:16 AM [facility] SED RATE Specimen Type: BLOOD No comment entered. Ordering Provider: Serena ESQUIVEL Report Released Date/Time: Aug 23, 2022 10:47 AM Reporting Lab: [facility] [address] Performing Lab: [facility] [address] SED RATE 31 H 5-15 Aug 23, 2022 11:16 AM [facility] C-REACTIVE PROTEIN Specimen Type: SERUM No comment entered. Ordering Provider: Serena ESQUIVEL Report Released Date/Time: Aug 23, 2022 10:47 AM Reporting Lab: [facility] [address] Performing Lab: [facility] [address] C-REACTIVE PROTEIN 3.14 See_Commjd t Aug 23, 2022 11:16 AM [facility] PHOSPHORUS Specimen Type: PLASMA No comment entered. Ordering Provider: Serena ESQIUVEL Report Released Date/Time: Aug 23, 2022 10:47 AM Reporting Lab: [facility] [address] Performing Lab: [facility] [address] PHOSPHORUS 3.9 2.3-4.7 Aug 23, 2022 11:16 AM [facility] HEMOGLOBIN A1C Specimen Type: BLOOD Comment: [...] Aug 23, 2022 10:47 AM Reporting Lab: [facility] [address] Performing Lab: [facility] [address] HEMOGLOBIN A1C 4.2 4.0-6.0 Aug 23, 2022 11:16 AM [facility] COMPREHENSIVE METABOLIC PANEL+MG Specimen Type: PLASMA No comment entered. Ordering Provider: Serena ESQUIVEL Report Released Date/Time: Aug 23, 2022 10:47 AM Reporting Lab: [facility] [address] Performing Lab: [facility] [address] CREATININE 0.8 0.7-1.2 UREA NITROGEN 15 8-26 [...] See_Commen t Aug 23, 2022 11:16 AM [facility] CBC & DIFF Specimen Type: BLOOD Comment: Automated Differential Performed Ordering Provider: Serena ESQUIVEL Report Released Date/Time: Aug 23, 2022 10:47 AM Reporting Lab: [facility] [address] Performing Lab: [facility] [address] WBC 5.11 4.0-11.0 RBC 3.87 L 4.6-6.2 [...] 0.02 0-0.1 Aug 23, 2022 11:14 AM [facility] POC CREATININE Specimen Type: BLOOD No comment entered. Ordering Provider: LAVONNE PANCHAL Report Released Date/Time: Aug 23, 2022 11:16 AM Reporting Lab: [facility] [address] Performing Lab: [facility] [address] POC CREATININE 0.8 0.6-1.3 July 19, 2022 04:40 PM [facility] FINGERSTICK GLUCOSE Specimen Type: BLOOD Comment: Save Result Nurse Notified Ordering Provider: MACKENZIE COTTER Report Released Date/Time: July 19, 2022 05:00 PM Reporting Lab: [facility] [address] Performing Lab: [facility] [address] FINGERSTICK GLUCOSE 132 70-100 July 19, 2022 07:13 AM [facility] COMPREHENSIVE METABOLIC PANEL+MG Specimen Type: PLASMA No comment entered. Ordering Provider: MACKENZIE COTTER Report Released Date/Time: July 18, 2022 05:40 PM Reporting Lab: [facility] [address] Performing Lab: [facility] [address] CREATININE 0.9 0.7-1.2 UREA NITROGEN 24 8-26 [...] See_Commen t July 19, 2022 07:13 AM [facility] IRON GROUP Specimen Type: SERUM No comment entered. Ordering Provider: MACKENZIE COTTER Report Released Date/Time: July 18, 2022 05:40 PM Reporting Lab: [facility] [address] Performing Lab: [facility] [address] IRON 28 L 65-175 TIBC,CALCULATE D 223 L 250-425 FERRITIN 73.7 21.8-274.7 IRON SATURATION 13 L 20-50 TRANSFERRIN 178 163-382 July 19, 2022 07:13 AM [facility] CBC Specimen Type: BLOOD No comment entered. Ordering Provider: MACKENZIE COTTER Report Released Date/Time: July 18, 2022 05:40 PM Reporting Lab: [facility] [address] Performing Lab: [facility] [address] WBC 7.73 4.0-11.0 RBC 2.42 L 4.6-6.2 HGB 8.2 L 13.5-17.9 HCT 23.8 L 41-54 MCV 98.3 80-100 MCH 33.9 H 27-33 MCHC 34.5 32.0-37.5 PLT 155 150-400 MPV 9.6 7.4-10.4 RDW 13.5 11.5-14.5 July 19, 2022 05:44 AM [facility] FINGERSTICK GLUCOSE Specimen Type: BLOOD Comment: Save Result Nurse Notified Ordering Provider: MACKENZIE COTTER Report Released Date/Time: July 19, 2022 11:54 AM Reporting Lab: [facility] [address] Performing Lab: [facility] [address] FINGERSTICK GLUCOSE 137 70-100 July 18, 2022 10:51 PM [facility] FINGERSTICK GLUCOSE Specimen Type: BLOOD Comment: Save Result Nurse Notified Ordering Provider: MACKENZIE COTTER Report Released Date/Time: July 18, 2022 11:06 PM Reporting Lab: [facility] [address] Performing Lab: [facility] [address] FINGERSTICK GLUCOSE 163 70-100 July 17, 2022 06:51 AM [facility] BASIC METABOLIC PANEL+MG Specimen Type: PLASMA No comment entered. Ordering Provider: DANG VALLE R Report Released Date/Time: July 16, 2022 09:37 AM Reporting Lab: [facility] [address] Performing Lab: [facility] [address] CREATININE 0.8 0.7-1.2 UREA NITROGEN 23 8-26 GLUCOSE 107 H 70-100 SODIUM 139 136-145 POTASSIUM 3.9 3.5-5.1 CHLORIDE 106 98-107 CO2 28 22-29 CALCIUM 9.1 8.4-10.2 MAGNESIUM 1.9 1.6-2.6 ANION GAP 5 5-15 .CREAT EGFR(CKD-EPI) >90 See_Commen t July 17, 2022 06:51 AM [facility] PROTHROMBIN TIME/INR Specimen Type: PLASMA No comment entered. Ordering Provider: DANG VALLE R Report Released Date/Time: July 16, 2022 09:37 AM Reporting Lab: [facility] [address] Performing Lab: [facility] [address] .INR 1.0 0.8-1.1 .PT 11.5 9.4-12.5 July 17, 2022 06:51 AM [facility] CBC Specimen Type: BLOOD No comment entered. Ordering Provider: DANG VALLE R Report Released Date/Time: July 16, 2022 09:37 AM Reporting Lab: [facility] [address] Performing Lab: [facility] [address] WBC 6.05 4.0-11.0 RBC 3.77 L 4.6-6.2 HGB 12.7 L 13.5-17.9 HCT 36.0 L 41-54 MCV 95.5 80-100 MCH 33.7 H 27-33 MCHC 35.3 32.0-37.5 PLT 179 150-400 MPV 9.4 7.4-10.4 RDW 13.2 11.5-14.5 July 13, 2022 11:22 AM [facility] COVID-19 AND FLU/RSV DIAG PANEL(CEPHEID) Specimen Typ e: NASOPHARYNGEAL Comment: Cepheid GeneXpert (618) Ordering Provider: WHITNEY ANDERSON Report Released Date/Time: July 13, 2022 11:04 AM Reporting Lab: [facility] [address] Performing Lab: [facility] [address] COVID-19 (CEPHEID) Not Detected Not Detected INFLUENZA A (PCR) Not Detected Not Detected INFLUENZA B (PCR) Not Detected Not Detected RSV (PCR) Not Detected Not Detected July 13, 2022 11:00 AM [facility] C-REACTIVE PROTEIN Specimen Type: SERUM Comment: Automated Differential Performed Ordering Provider: WHITNEY ANDERSON Report Released Date/Time: July 13, 2022 11:04 AM Reporting Lab: [facility] [address] Performing Lab: [facility] [address] C-REACTIVE PROTEIN 1.17 <5.00 July 13, 2022 11:00 AM [facility] PROTHROMBIN TIME/INR Specimen Type: PLASMA No comment entered. Ordering Provider: WHITNEY ANDERSON Report Released Date/Time: July 13, 2022 11:04 AM Reporting Lab: [facility] [address] Performing Lab: [facility] [address] .INR 0.9 0.8-1.1 .PT 11.1 9.4-12.5 July 13, 2022 11:00 AM [facility] SED RATE Specimen Type: BLOOD No comment entered. Ordering Provider: WHITNEY ANDERSON Report Released Date/Time: July 13, 2022 11:04 AM Reporting Lab: [facility] [address] Performing Lab: [facility] [address] SED RATE 10 5-15 July 13, 2022 11:00 AM [facility] CBC & DIFF Specimen Type: BLOOD Comment: Automated Differential Performed Ordering Provider: WHITNEY ANDERSON Report Released Date/Time: July 13, 2022 11:04 AM Reporting Lab: [facility] [address] Performing Lab: [facility] [address] WBC 8.82 4.0-11.0 RBC 3.89 L 4.6-6.2 [...] 0.03 0-0.1 July 13, 2022 11:00 AM [facility] COMPREHENSIVE METABOLIC PANEL+MG Specimen Type: PLASMA Comment: Automated Differential Performed Ordering Provider: WHITNEY ANDERSON Report Released Date/Time: July 13, 2022 11:04 AM Reporting Lab: [facility] [address] Performing Lab: [facility] [address] CREATININE 1.0 0.7-1.2 UREA NITROGEN 16 8-26 [...] and tobacco- related health factors from the [place] facility where the Encounter took place. Current Smoking Status This section includes the most current smoking, or tobacco-related health factor, from the PR facility where the Encounter took place. Date/Time Current Smoking Status Comment Facil ity May 10, 2022 09:15 AM VA-TOBACCO FORMER USER [facility] Tobacco Use History This section includes a history of the smoking, or tobacco-related health factors, that were collected on or before the date of the Encounter. The data comes from the [place] facility where the Encounter took place. Date/Time Smoking Status/Tobacco Use Comment F acility May 10, 2022 09:15 AM VA-TOBACCO QUIT 15 YRS OR MORE [facility] May 11, 2021 09:15 AM VA-TOBACCO FORMER USER [facility] May 11, 2021 09:15 AM PR-TOBACCO QUIT 15 YRS OR MORE [facility] Nov 22, 2018 01:36 PM VA-TOBACCO NEVER USED [facility] Nov 12, 2017 07:35 AM FORMER TOBACCO USER 7Y OR GREATE R [facility] Nov 06, 2016 09:05 AM FORMER TOBACCO USER 7Y OR GREATE R [facility] Sep 27, 2015 09:42 AM FORMER TOBACCO USER 7Y OR GREATE R [facility] Sep 25, 2014 07:55 AM FORMER TOBACCO USER 7Y OR GREATE R [facility] Sep 08, 2013 07:48 AM FORMER TOBACCO USER 7Y OR GREATE R [facility] July 09, 2012 09:20 AM FORMER TOBACCO USE >1Y <7Y [facility] Jun 06, 2011 07:53 AM FORMER TOBACCO USE >1Y <7Y [facility] Sep 09, 2009 03:03 PM FORMER TOBACCO USE >1Y <7Y [facility] Aug 11, 2008 01:06 PM FORMER TOBACCO USE <1Y [facility] Sep 19, 2007 02:52 PM CURRENT TOBACCO USER [facility] Sep 03, 2006 03:32 PM CURRENT TOBACCO USER [facility] Advance Directives: All historical and current Section Date Range: From patient's date of to the date document was created. This section includes ALL of a patient's completed or amended [place] Advance and Rescinded Directives. The entries below indicate that a directive exists for the patient, but an actual copy is not included with this document. The data comes from all [facility]. Date Advance Directives Provider Source Mar [...] the Encounter. The data comes from all [place] treatment facilities. Date/Time Radiology Report Provider Source Aug 23, 2022 01:11 PM MRI-BRAIN (P): MARYJO WAGNER [id number] -1950 M Exm Date: AUG 23, 2022@13:11 Req Phys: Serena ESQUIVEL Loc: [facility] EMERGENCY DEPT WALK-IN (Re Img Loc: MRI IMAGING Service: Unknown (Case [id number] COMPLETE) MRI BRAINBRAINSTEM W & W/O CONTRA(MRI Detailed) CPT:52769 Contrast Media : Gadolinium Reason for Study: APHASIA X3 DAYS Clinical History: MRI BRAIN WITH/WITHOUT CONTRAST IS NOT under investigation for COVID-19 or is COVID-19 negative Did the ordering provider speak with a erp consultant regarding this imaging exam? Yes, Name of erp consultant (resident or staff):Neurology Aphasia x 3 days Responsible provider name and phone number to notify for critical findings if other than user placing the order and pager listed below: User placing orders pager: [phone] [id number] LAST CREATININE 0.8 (08/23/22) Allergies: HAZELNUTS (Nov 21, 2002) Report Status: Verified Date Reported: AUG 23, 2022 Date Verified: AUG 23, 2022 Manager Surgical E-Sig:/ES/TERESA SANTAMARIA MD Report: MRI BRAINBRAINSTEM W [...] in the left supratentorial compartment results in fnvs-gq-rbsdm midline shift again measuring up to 1.4 [...] intracranial mass effect, with rightward subfalcine herniation (nrvy-vw-rtrgc midline shift measures up to 1.4 cm) [...] Primary Interpreting Staff: TERESA SANTAMARIA MD, RADIOLOGIST (Manager Surgical) /[facility] TERESA SANTAMARIA [facility] Aug 23, 2022 12:03 PM CTA CAROTID/COW (P): MARYJO WAGNER [id number] -1950 M Ex Date: AUG 23, 2022@12:03 Req Phys: Serena ESQUIVEL Pat Loc: [facility] EMERGENCY DEPT WALK[place]IN [place] [facility] [place]: [place] IMAGING Service: Unknown (Case [id number] COMPLETE) CTA HEAD W/POSTPROCESSING (CT Detailed) CPT:65840 Contrast Media : unspecified contrast media Reason for Study: APHASIAx3 days (Case [id number] COMPLETE) CTA NECK (CT Detailed) CPT:24501 Contrast Media : unspecified contrast media Non-ionic [...] pager listed below: User placing orders pager: [phone] LAST 3: Collection DT Specimen Test Name [...] PLASMA ESTIMATED GFR(eGF >60 Ref: >=60 Allergies: ([place] only) HAZELNUTS (Nov 21, 2002) To see allergies from all [place] locations click Reports tab>Remote Data>All Available Sites>Clinical Reports>Allergies. Report Status: Verified Date Reported: AUG 23, 2022 Date Verified: AUG 23, 2022 Manager Surgical E-Sig:/ES/TERESA SANTAMARIA MD Report: CTA HEAD W/POSTPROCESSING, [...] contribute to left cerebral white matter edema. Swmr-gl-pgwjg midline shift measures up to 1.4 cm. [...] left lateral ventricle. Rightward subfalcine herniation, with sauv-mu-axehp midline shift measuring up to 1.4 cm. [...] Primary Interpreting Staff: TERESA SANTAMARIA MD, RADIOLOGIST (Manager Surgical) /[facility] TERESA SANTAMARIA [facility] Aug 23, 2022 09:29 AM ELBOW LEFT 3 OR MORE VIEWS: MARYJO WAGNER [id number] -1950 Ex Date: AUG 23, 2022@09:29 Req Phys: LEIF BALBUENA Pat Loc: [facility] 2F (Req'g Img Loc: MAIN X-RAY Service: Unknown (Case [id number] COMPLETE) ELBOW LEFT 3 OR MORE VIEWS (RAD Detailed) CPT:92368 Reason for Study: postop Clinical History: IS NOT under investigation for COVID-19 or is COVID-19 negative postop Responsible provider name and phone number to notify for critical findings if other than user placing the order and pager listed below: User placing orders pager: [phone] LAST CREATININE 0.9 (07/19/22) Report Status: Verified Date Reported: AUG 23, 2022 Date Verified: AUG 23, 2022 Manager Surgical E-Sig:/ES/ALBINA LEE MD Report: Exam: Left elbow [...] Primary Interpreting Staff: ALBINA LEE MD, RADIOLOGIST (Manager Surgical) /ALBINA SALEH [facility] July 20, 2022 07:50 AM CHEST 1 VIEW: MARYJO WAGNER [id number] -1950 M Exm Date: JULY 20, 2022@07:50 Req Phys: VAHEMACKENZIE D Pat Loc: 07-20-2022@08:26 Img Loc: MAIN X-RAY Service: PRIMARY CARE - MED OFFICE (Case [id number] COMPLETE) CHEST 1 VIEW (RAD Detailed) CPT:29787 Proc Modifiers : PORTABLE EXAM Reason for Study: see below. thanks. Clinical History: [place] IS NOT under investigation for COVID-19 or is COVID-19 negative Please further evaluate for acute airspace disease given o2 requirement. Thanks. Responsible provider name and phone number to notify for critical findings if other than user placing the order and pager listed below: User placing orders pager: [phone] same LAST CREATININE 0.9 (07/19/22) Report Status: Verified Date Reported: JULY 20, 2022 Date Verified: JULY 20, 2022 [employer] E-Sig:/ES/JAMIE MIGUEL MD Report: EXAM: CHEST 1 VIEW HISTORY: see below. thanks. Reason for Study: see below. thanks. [place] IS NOT under investigation for COVID-19 or is COVID-19 negative Please further evaluate for acute airspace disease given o2 requirement. Thanks. Responsible provider name and phone number to notify for critical findings if other than user placing the order and pager listed below: User placing orders pager: [phone] same LAST CREATININE 0. COMPARISON: Chest CT [...] Primary Interpreting Staff: JAMIE MIGUEL MD, RADIOLOGIST (Manager Surgical) /JAMIE FRANCES [facility] July 18, 2022 12:59 PM ELBOW LEFT 2 VIEWS: MARYJO WAGNER [id number] -1950 M Exm Date: JULY 18, 2022@12:59 Req Phys: LEIF BALBUENA Loc: OR-PACU/07-18-2022@13:59 Img Loc: MAIN X-RAY Service: [facility] SERVICE (Case [id number] COMPLETE) ELBOW LEFT 2 VIEWS (RAD Detailed) CPT:88129 Proc Modifiers : PORTABLE EXAM, OPERATING ROOM EXAM Reason for Study: post-op Clinical History: post-op Report Status: Verified Date Reported: JULY 18, 2022 Date Verified: JULY 18, 2022 Manager Surgical E-Sig:/ES/JAKUB LEE MD Report: EXAM: ELBOW LEFT [...] Primary Interpreting Staff: JAKUB LEE MD, RADIOLOGIST (Manager Surgical) [place] [place]AKUB LEE [facility] July 18, 2022 07:30 AM FLUORO UP TO 1 HR PHYSICIAN TIME: MARYJO WAGNER [id number] -1950 M Exm Date: JULY 18, 2022@07:30 Req Phys: LEIF BALBUENA Loc: OR-PACU/07-18-2022@13:14 Img Loc: MAIN X-RAY Service: PRIMARY CARE - MED OFFICE (Case [id number] COMPLETE) FLUORO UP TO 1 HR PHYSICIAN TIME (RAD Detailed) CPT:09222 Proc Modifiers : PORTABLE EXAM, OPERATING ROOM EXAM, LEFT Reason for Study: Left distal humerous ORIF Clinical History: OR 7 Pathologic distal humeral shaft fracture Responsible provider name and phone number to notify for critical findings if other than user placing the order and pager listed below: User placing orders pager: Henry BALBUENA [phone] LAST CREATININE 0.8 (07/17/22) Report Status: Electronically Filed Date Reported: JULY 18, 2022 Report: Impression: Please see the full report for this procedure in CPRS patient progress notes. Fluoro guidance was provided during this procedure, but the study was not reviewed or verified by a [facility] radiologist. The radiation exposure dose has been recorded in the patient's chart. If you are unable to view this data, please contact the Imaging Department. VERIFIED BY: / *ELECTRONICALLY FILED* [facility] July 17, 2022 03:28 PM ABDOMINAL AORTOGRAM (P): MARYJO WAGNER [id number] -1950 M Exm Date: JULY 17, 2022@15:28 Req Phys: MALCOM LANGLEY [facility] Loc: 07-17-2022@15:54 Img Loc: INTERVENTIONAL RADIOLOGY Service: PRIMARY CARE - MED OFFICE (Case [id number] COMPLETE) ANGIOGRAPHY EXTREMITY UNILAT S&I (ANI Detailed) CPT:58034 Reason for Study: codes (Case 528 COMPLETE) IR AORTOGRAPHY ABDOMINAL W/O RUNO(ANI Detailed) CPT:75012 (Case 529 COMPLETE) IR FOREIGN BODY REMOVAL INTRAVASC(ANI Detailed) CPT:85090 (Case 532 COMPLETE) IR NEEDLE/INTRACATH PLACEMENT EXT(ANI Detailed) CPT:23517 (Case 533 COMPLETE) IR PLACEMENT OCCLUSIVE DEVICE SAM(ANI Detailed) CPT:G0269 Clinical History: codes Report Status: Verified Date Reported: JULY 17, 2022 Date Verified: JULY 17, 2022 Manager Surgical E-Sig:/ES/MALCOM LANGLEY MD Report: RADIOLOGIST: Malcom Langley [...] angiogram and runoff. 12. Closure of right FLOORING PROFESSIONAL with Angio-Seal device. HISTORY: Metastatic renal cell [...] Sheath removed over guidewire and a 5 yemeni vascular sheath advanced over guidewire into the artery. An H1 catheter was advanced along with the guidewire into the thoracic arch and the left subclavian artery was selected. Catheter and the guidewire were advanced into the left brachial artery. The 5 Japanese sheath was exchanged for a 6 Japanese sheath that was advanced into the left [...] arteries. Sheath and catheters were removed and FLOORING PROFESSIONAL arteriotomy was closed using Angioseal. There is patent hemostasis. No bleeding or hematoma noted. Sterile dressing applied. 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 Primary Interpreting Staff: MALCOM LANGLEY MD, INTERVENTIONAL RADIOLOGIST (Manager Surgical) /MALCOM HE [facility] July 17, 2022 07:30 AM RENAL ARTERY EMBOLIZATION (P): MARYJO WAGNER [id number] -1950 M Exm Date: JULY 17, 2022@07:30 Req Phys: WESTON VASQUEZ Pat Loc: 07-17-2022@15:46 Img Loc: INTERVENTIONAL RADIOLOGY Service: PRIMARY CARE - MED OFFICE (Case 130 COMPLETE) IR TRANSCATH EMBOLIZATION W/ANGIO(ANI Detailed) CPT:87154 Reason for Study: embolization of RCC mets to left humerus (Case 131 COMPLETE) IR ARTERIAL EMBOLIZATION OTHER TH(ANI Detailed) CPT:97893 (Case 132 COMPLETE) IR US GUIDANCE VASCULAR ACCESS (ANI Detailed) CPT:94703 Clinical History: [place] IS NOT under investigation for COVID-19 or [...] pager listed below: User placing orders pager: [phone] LAST CREATININE 1.0 (07/13/22) Report Status: Verified Date Reported: JULY 17, 2022 Date Verified: JULY 17, 2022 Manager Surgical E-Sig:/ES/MALCOM LANGLEY MD Report: RADIOLOGIST: Maclom Langley M.D. PROCEDURES: 1. Ultrasound guided right [...] angiogram and runoff. 12. Closure of right FLOORING PROFESSIONAL with Angio-Seal device. HISTORY: Metastatic renal cell [...] Sheath removed over guidewire and a 5 yemeni vascular sheath advanced over guidewire into the artery. An H1 catheter was advanced along with the guidewire into the thoracic arch and the left subclavian artery was selected. Catheter and the guidewire were advanced into the left brachial artery. The 5 Japanese sheath was exchanged for a 6 Japanese sheath that was advanced into the left [...] arteries. Sheath and catheters were removed and FLOORING PROFESSIONAL arteriotomy was closed using Angioseal. There is patent hemostasis. No bleeding or hematoma noted. Sterile dressing applied. 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 Primary Interpreting Staff: MALCOM LANGLEY MD, INTERVENTIONAL RADIOLOGIST (Manager Surgical) /MALCOM HE [facility] July 14, 2022 06:44 AM HUMERUS LEFT MINIMUM 2 VIEWS: MARYJO WAGNER [id number] -1950 M Exm Date: JULY 14, 2022@06:44 Req Phys: WESTON VASQUEZ Pat Loc: 07-14-2022@07:13 Img Loc: MAIN X-RAY Service: PRIMARY CARE - MED OFFICE (Case [id number] COMPLETE) HUMERUS LEFT MINIMUM 2 VIEWS (RAD Detailed) CPT:42582 Reason for Study: post reduction Clinical History: Report Status: Verified Date Reported: JULY 14, 2022 Date Verified: JULY 14, 2022 Manager Surgical E-Sig: Report: HUMERUS LEFT MINIMUM 2 VIEWS HISTORY: post reduction COMPARISON: 07/13/2022 TECHNIQUE: 2 view(s) of the humerus, submitted to the [place] National Teleradiology Program (NTP) for interpretation. FINDINGS: [...] less likely. READING PHYSICIAN: Xavier Merrill MD -[phone] 07/14/2022 5:11 PDT [facility] National Teleradiology Program [phone] (For Medical Practitioner Use Only) Attention Patients / Veterans: If you have questions or concerns about these test results, please contact your ordering provider or primary care team. Primary Interpreting Staff: RADIOLOGY,OUTSIDE SERVICE, Staff Physician / RADIOLOGY,OUTSIDE SERVICE [facility] July 13, 2022 10:07 AM HUMERUS LEFT MINIMUM 2 VIEWS: BERNARDMARYJO BELENTARA [id number] -1950 M Ex Date: JULY 13, 2022@10:07 Req Phys: WHITNEY ANDERSON Pat Loc: [facility] EMERGENCY DEPT WALK-IN (Re Img Loc: MAIN X-RAY Service: Unknown (Case [id number] COMPLETE) HUMERUS LEFT MINIMUM 2 VIEWS (RAD Detailed) CPT:12660 Proc Modifiers : LEFT Reason for Study: [...] pager listed below: User placing orders pager: [phone] LAST CREATININE 0.8 (05/10/22) Report Status: Verified Date Reported: JULY 13, 2022 Date Verified: JULY 13, 2022 Manager Surgical E-Sig:/ES/ALBINA COWAN MD, FACR, CCD Report: EXAMINATION: [...] Staff: ALBINA COWAN MD, FACR, STAFF RADIOLOGIST (Manager Surgical) /[facility]F ALBINA COWAN [facility] July 13, 2022 10:07 AM ELBOW LEFT 3 OR MORE VIEWS: MARYJO WAGNER [id number] -1950 M Exm Date: JULY 13, 2022@10:07 Req Phys: WHITNEY ANDERSON Pat Loc: [facility] EMERGENCY DEPT WALK-IN (Re Img Loc: MAIN X-RAY Service: Unknown (Case [id number] COMPLETE) ELBOW LEFT 3 OR MORE VIEWS (RAD Detailed) CPT:78775 Proc Modifiers : LEFT Reason for Study: [...] pager listed below: User placing orders pager: [phone] LAST CREATININE 0.8 (05/10/22) Report Status: Verified Date Reported: JULY 13, 2022 Date Verified: JULY 13, 2022 Manager Surgical E-Sig:/SANGITA/ALBINA COWAN MD, FACR, CCD Report: EXAMINATION: ELBOW [...] Staff: ALBINA COWAN MD, FACR, STAFF RADIOLOGIST (Manager Surgical) /ALBINA NATHAN [facility] July 13, 2022 10:07 AM FOREARM LEFT 2 VIEWS: MARYJO WAGNER [id number] -1950 M Exm Date: JULY 13, 2022@10:07 Req Phys: WHITNEY ANDERSON Pat Loc: [facility] EMERGENCY DEPT WALK-IN (Re Img Loc: MAIN X-RAY Service: Unknown (Case [id number] COMPLETE) FOREARM LEFT 2 VIEWS (RAD Detailed) CPT:07822 Proc Modifiers : LEFT Reason for Study: [...] pager listed below: User placing orders pager: [phone] LAST CREATININE 0.8 (05/10/22) Report Status: Verified Date Reported: JULY 13, 2022 Date Verified: JULY 13, 2022 Manager Surgical E-Sig:/ES/ALBINA COWAN MD, FACR, CCD Report: EXAMINATION: [...] Staff: ALBINA COWAN MD, FACR, STAFF RADIOLOGIST (Manager Surgical) /ALBINA NATHAN [facility] Pathology Reports: +/- 30 days of [...] the Encounter. The data comes from all [place] treatment facilities. Date/Time Pathology Report Provider Source July 13, 2022 04:06 PM LR SURGICAL PATHOL OGY REPORT: LOCAL TITLE: LR SURGICAL PATHOLOGY REPORT STANDARD TITLE: PATHOLOGY REPORT DATE OF NOTE: JULY 21, 2022@14:37:27 ENTRY DATE: JULY 21, 2022@14:37:27 AUTHOR: JIAN SANDOVAL EXP COSIGNER: URGENCY: STATUS: COMPLETED $APHDR Reporting Lab: [facility] [CLIA# [id number]] [place] [address] - - - - - - - [...] Surgeon/physician: LEIF BALBUENA MD Attending Surgeon: Leif aBlbuena MD =-=-=-=-=-=-=-=-=-=-=-=-=- =-=-=-=-=-=-=-=-=-=-=-=-=- =-=-=-=-=-=-=-=-=-=-=-=-=- = - - [...] is entirely submitted in A-D. CE. (D). [facility] FROZEN SECTION DIAGNOSES: SPEC. 1 - left [...] SANDOVAL STAFF PATHOLOGIST, PATHOLOGY & LABORATORY [facility] Signed July 21, 2022@14:37 Performing Laboratory: Surgical Pathology Report Performed By: [facility] [CLIA# [id number]] [place] [address] $FTR - - - - - - [...] - - MARYJO WAGNER STANDARD FORM 515 ID:[id number] SEX:M :1950 AGE: 72 LOC:[facility] PATHOLOGY PRO FEE ADM:June DX:PATHOLOGIC FX LF HUMERUS PCP: Leif Balbuena MD /sangita/ JIAN SANDOVAL STAFF PATHOLOGIST, PATHOLOGY & LABORATORY [facility] [place] Signed: 07/21/2022 14:37 JIAN SANDOVAL [facility] Encounter Notes: All associated encounter notes This section contains the clinical notes associated to the Encounter. Date/Time Encounter Note(s) Provider Source Aug 04, 2022 01:21 PM PHARMACY NOTE: LOCAL TITLE: PHARMACY CALL CENTER MEDICATION RENEWAL REQUEST STANDARD TITLE: PHARMACY NOTE DATE OF NOTE: AUG 04, 2022@13:21 ENTRY DATE: AUG 04, 2022@13:21:12 AUTHOR: REYNA STEPHENSON EXP COSIGNER: URGENCY: STATUS: COMPLETED Medication renewal(s) requested by patient for: Controlled substance(s): Medication renewal(s) requested by: vet Controlled substance(s): OXYCODONE 5MG TAB Medications to be: MAILED OUT A Naloxone prescription with a status of Active, , Hold or Suspended was not found. CONSENT FOR [facility] OPIOID THERAPY (opioids only) Patient has a consent PRESCRIPTION DRUG MONITORING PROGRAM (PDMP) (frequency of PDMP checks should be done in compliance with most restrictive guidance considering provider licensure, state and local/[facility] policy) No PDMP data available LAST URINE DRUG SCREEN (opioids only) (Every 3 months or per local requirement or when clinically indicated) No UDS data found MEDICATIONS Active and Recently Outpatient Medications (excluding Supplies): [...] BACTERIOSTATIC APPLY JELLY ACTIVE TOPICALLY DIRECTED 5) NALOXONE HCL 4MG/SPRAY SOLN NASAL SPRAY SPRAY 1 DOSE ACTIVE IN ONE NOSTRIL NEEDED FOR UNRESPONSIVENESS THEN CALL 911 6) OXYCODONE 5MG TAB TAKE ONE TABLET BY MOUTH THREE ACTIVE TIMES A DAY NEEDED FOR PAIN 7) POLYETHYLENE GLYCOL 3350 ORAL PWDR TAKE 17 GRAMS BY ACTIVE MOUTH EVERY DAY NEEDED FOR CONSTIPATION 8) PREGABALIN 25MG ORAL CAP TAKE ONE CAPSULE [...] CAP/TAB 1 TABLET MOUTH EVERY DAY ACTIVE 13 Total Medications ALLERGIES: HAZELNUTS (Nov 21, 2002) /es/ REYNA STEPHENSON V23 [facility] DIRECTOR STRATEGIC ACCOUNT MANAGEMENT Signed: 08/04/2022 13:24 Receipt Acknowledged By: * AWAITING SIGNATURE * CORRY MCGRAW * AWAITING SIGNATURE * JUANY WYNN OM NATH [facility]
--- OUTSIDE RECORDS SUMMARY | 2023-03-24 08:29 | XMS_ITS | Encounter Summary ---
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 Address [address] [place] [address] Support Name Relationship Address Phone DORENE WAGNER Next of Kin [address] [place] [phone] DOREEN Emergency Contact [address] [place] [phone] Insurance Providers: All historical and current [...] Name Patient's Relationship to Policy [place] [facility] (R) [facility]) June 26, 2016 [id number] JOAN WAGNER KARSTEN PATIENT [employer] [facility] (WNR) [facility]) June 26, 2016 [id number] JOAN WAGNER PATIENT [employer] [facility] (WNR) [facility] (R) June 26, 2016 [id number] [phone] JOAN WAGNER PATIENT Selected Encounter This section includes the information on record at [place] for the Encounter. Date/Time Encounter Type Encounter Description Reason Provider Source Aug 13, 2022 06:13 PM EMERGENCY DEPT VISIT LOW [facility] EMERGENCY DEPT ICD-10-CM R33.9 Retention of urine, unspecified SARBJIT RANDOLPH Encounter Template Text not used by [facility] Assessments - Encounter Diagnoses This section includes the primary and secondary diagnoses documented for the Encounter. Date/Time Primary/Secondary Diagnosis Diagnosis Name Provider Source Aug 13, 2022 06:54 PM PRIMARY Retention of urine, unspecified SARBJIT RANDOLPH [facility] Plan of Treatment: Future Appointments (+ 6 months) and Future Tests (+/- 45 days) The Plan of Treatment section includes future care activities for the patient [facility] [place] [facility] This section includes future appointments and future orders which are active, pending or scheduled. Future Appointments This section includes appointments that were scheduled to occur 6 months from the date of the Encounter, up to a maximum of 20 appointments. The data comes from all [facility]. Appointment Date/Time Appointment Type Appointme nt Facility Name Aug 23, 2022 09:30 AM AMBULATORY - SURGERY [facility] Aug 23, 2022 09:45 AM AMBULATORY - NONE [facility] Aug 23, 2022 10:30 AM AMBULATORY - MEDICINE [facility] Aug 23, 2022 10:31 AM AMBULATORY - MEDICINE [facility] Sep 06, 2022 10:15 AM AMBULATORY - SURGERY [facility] Oct 25, 2022 07:00 AM AMBULATORY - NONE [facility] Oct 25, 2022 07:30 AM AMBULATORY - SURGERY [facility] Oct 25, 2022 09:00 AM AMBULATORY - SURGERY [facility] Active, Pending, and Scheduled Orders This section includes a listing of several types of active, pending, and scheduled orders, including clinic medications orders, diagnostic test orders, procedure orders and consult orders; where the start date of the order is 45 days before the date of the Encounter or 45 days after the date of theEncounter. The data comes from all [facility]. Test Date/Time Test Type Test Details Facility Name July 14, 2022 12:00 AM Laboratory - Blood Bank Order ABO/RH - LAB BLOOD [facility] July 14, 2022 02:05 PM Laboratory - Blood Bank Order TYPE & SCREEN - LAB BLOOD [facility] Aug 07, 2022 11:23 AM Laboratory - Chemi stry Order DRUG SCREEN PANEL,URINE URINE [facility] Aug 23, 2022 10:47 AM Laboratory - Chemi stry Order URINALYSIS URINE ER STAT [facility] Lab Results: +/- 30 days of the encounter This section includes the Chemistry and Hematology Lab Results on record with [place] for the patient. Radiology Reports and Pathology Reports are provided separately, in subsequent sections. Lab Results This section contains the Chemistry/Hematology Results that were resulted 30 days before or 30 daysafter the date of the Encounter. Date/Time Source Result Type Result - Unit Interpretation Reference Range Comment Aug 24, 2022 12:15 PM [facility] URINALYSIS Specimen Type: URINE No comment entered. Ordering Provider: LUCIO KIM Report Released Date/Time: Aug 24, 2022 09:34 AM Reporting Lab: [facility] [address] Performing Lab: [facility] [address] URINE COLOR YELLOW SPECIFIC GRAVITY 1.030 1.003-1.03 5 URINE BILIRUBIN NEGATIVE See_ Commen t URINE KETONES 1+ See_Co mmen t [...] See_Commen t Aug 23, 2022 11:16 AM [facility] PROTHROMBIN TIME/INR Specimen Type: PLASMA No comment entered. Ordering Provider: Serena ESQUIVEL Report Released Date/Time: Aug 23, 2022 10:47 AM Aug 23, 2022 11:16 AM [facility] ACT PART THROMBO TIME Specimen Type: PLASMA No comment entered. Ordering Provider: Serena ESQUIVEL Report Released Date/Time: Aug 23, 2022 10:47 AM Reporting Lab: [facility] [address] Performing Lab: [facility] [address] APTT 30.2 25.1-36.5 Aug 23, 2022 11:16 AM [facility] LIPID PANEL,NON-FASTING Specimen Type: PLASMA No comment entered. Ordering Provider: Serena ESQUIVEL Report Released Date/Time: Aug 23, 2022 10:47 AM Reporting Lab: [facility] [address] Performing Lab: [facility] [address] CHOLESTEROL 129 See_Comm en t .HDL 36 L See_Commen t LDL CALCULATION 68 See_ Commen t VLDL CALCULATION 25 See_Commen t NON HDL CHOLESTEROL 93 See_Commen t TRIG(NON FASTING) 123 See_Commen t Aug 23, 2022 11:16 AM [facility] TSH W/REFLEX TO FREE T4 Specimen Type: PLASMA No comment entered. Ordering Provider: Serena ESQUIVEL Report Released Date/Time: Aug 23, 2022 10:47 AM Reporting Lab: [facility] [address] Performing Lab: [facility] [address] TSH 1.54 0.35-4.94 Aug 23, 2022 11:16 AM [facility] CARDIAC TROPONIN I Specimen Type: PLASMA No comment entered. Ordering Provider: Serena ESQUIVEL Report Released Date/Time: Aug 23, 2022 10:47 AM Reporting Lab: [facility] [address] Performing Lab: [facility] [address] CARDIAC TROPONIN I <0.028 See_Commen t Aug 23, 2022 11:16 AM [facility] SED RATE Specimen Type: BLOOD No comment entered. Ordering Provider: Serena ESQUIVEL Report Released Date/Time: Aug 23, 2022 10:47 AM Reporting Lab: [facility] [address] Performing Lab: [facility] [address] SED RATE 31 H 5-15 Aug 23, 2022 11:16 AM [facility] C-REACTIVE PROTEIN Specimen Type: SERUM No comment entered. Ordering Provider: Serena ESQUIVEL Report Released Date/Time: Aug 23, 2022 10:47 AM Reporting Lab: [facility] [address] Performing Lab: [facility] [address] C-REACTIVE PROTEIN 3.14 See_Commen t Aug 23, 2022 11:16 AM [facility] PHOSPHORUS Specimen Type: PLASMA No comment entered. Ordering Provider: Serena ESQUIVEL Report Released Date/Time: Aug 23, 2022 10:47 AM Reporting Lab: [facility] [address] Performing Lab: [facility] [address] PHOSPHORUS 3.9 2.3-4.7 Aug 23, 2022 11:16 AM [facility] HEMOGLOBIN A1C Specimen Type: BLOOD Comment: Values obtained from A1C measurements can vary. For typical A1C assays, a reported value of 7.0 could actually be between 6.7 and 7.3 if measured by a reference method. A reported value of 9.0 could actually be between 8.7 and 9.3. Ref: http://www.ng sp.org/CAPdat a.asp Ordering Provider: Serena ESQUIVEL Report Released Date/Time: Aug 23, 2022 10:47 AM Reporting Lab: [facility] [address] Performing Lab: [facility] [address] HEMOGLOBIN A1C 4.2 4.0-6.0 Aug 23, 2022 11:16 AM [facility] COMPREHENSIVE METABOLIC PANEL+MG Specimen Type: PLASMA No comment entered. Ordering Provider: Serena ESQUIVEL Report Released Date/Time: Aug 23, 2022 10:47 AM Reporting Lab: [facility] [address] Performing Lab: [facility] [address] CREATININE 0.8 0.7-1.2 UREA NITROGEN 15 8-26 [...] See_Commen t Aug 23, 2022 11:16 AM [facility] CBC & DIFF Specimen Type: BLOOD Comment: Automated Differential Performed Ordering Provider: Serena ESQUIVEL Report Released Date/Time: Aug 23, 2022 10:47 AM Reporting Lab: [facility] [address] Performing Lab: [facility] [address] WBC 5.11 4.0-11.0 RBC 3.87 L 4.6-6.2 [...] EOS 0.11 0-0.5 ABS BASO 0.03 0-0.2 IG(META,MYELO,P RO) 0.4 ABS IMMATURE GRAN 0.02 0-0.1 Aug 23, 2022 11:14 AM [facility] POC CREATININE Specimen Type: BLOOD No comment entered. Ordering Provider: LAVONNE PANCHAL Report Released Date/Time: Aug 23, 2022 11:16 AM Reporting Lab: [facility] [address] Performing Lab: [facility] [address] POC CREATININE 0.8 0.6-1.3 July 19, 2022 04:40 PM [facility] FINGERSTICK GLUCOSE Specimen Type: BLOOD Comment: Save Result Nurse Notified Ordering Provider: RENETTA COTTER Report Released Date/Time: July 19, 2022 05:00 PM Reporting Lab: [facility] [address] Performing Lab: [facility] [address] FINGERSTICK GLUCOSE 132 70-100 July 19, 2022 07:13 AM [facility] COMPREHENSIVE METABOLIC PANEL+MG Specimen Type: PLASMA No comment entered. Ordering Provider: RENETTA COTTER Report Released Date/Time: July 18, 2022 05:40 PM Reporting Lab: [facility] [address] Performing Lab: [facility] [address] CREATININE 0.9 0.7-1.2 UREA NITROGEN 24 8-26 [...] See_Commen t July 19, 2022 07:13 AM [facility] IRON GROUP Specimen Type: SERUM No comment entered. Ordering Provider: RENETTA COTTER Report Released Date/Time: July 18, 2022 05:40 PM Reporting Lab: [facility] [address] Performing Lab: [facility] [address] IRON 28 L 65-175 TIBC,CALCULATED 223 L 250-425 FERRITIN 73.7 21.8-274.7 IRON SATURATION 13 L 20-50 TRANSFERRIN 178 163-382 July 19, 2022 07:13 AM [facility] CBC Specimen Type: BLOOD No comment entered. Ordering Provider: RENETTA COTTER Report Released Date/Time: July 18, 2022 05:40 PM Reporting Lab: [facility] [address] Performing Lab: [facility] [address] WBC 7.73 4.0-11.0 RBC 2.42 L 4.6-6.2 HGB 8.2 L 13.5-17.9 HCT 23.8 L 41-54 MCV 98.3 80-100 MCH 33.9 H 27-33 MCHC 34.5 32.0-37.5 PLT 155 150-400 MPV 9.6 7.4-10.4 RDW 13.5 11.5-14.5 July 19, 2022 05:44 AM [facility] FINGERSTICK GLUCOSE Specimen Type: BLOOD Comment: Save Result Nurse Notified Ordering Provider: RENETTA COTTER Report Released Date/Time: July 19, 2022 11:54 AM Reporting Lab: [facility] [address] Performing Lab: [facility] [address] FINGERSTICK GLUCOSE 137 70-100 July 18, 2022 10:51 PM [facility] FINGERSTICK GLUCOSE Specimen Type: BLOOD Comment: Save Result Nurse Notified Ordering Provider: RENETTA COTTER Report Released Date/Time: July 18, 2022 11:06 PM Reporting Lab: [facility] [address] Performing Lab: [facility] [address] FINGERSTICK GLUCOSE 163 70-100 July 17, 2022 06:51 AM [facility] BASIC METABOLIC PANEL+MG Specimen Type: PLASMA No comment entered. Ordering Provider: TEO VALLE Report Released Date/Time: July 16, 2022 09:37 AM Reporting Lab: [facility] [address] Performing Lab: [facility] [address] CREATININE 0.8 0.7-1.2 UREA NITROGEN 23 8-26 GLUCOSE 107 H 70-100 SODIUM 139 136-145 POTASSIUM 3.9 3.5-5.1 CHLORIDE 106 98-107 CO2 28 22-29 CALCIUM 9.1 8.4-10.2 MAGNESIUM 1.9 1.6-2.6 ANION GAP 5 5-15 .CREAT EGFR(CKD-EPI) >90 See_Commen t July 17, 2022 06:51 AM [facility] PROTHROMBIN TIME/INR Specimen Type: PLASMA No comment entered. Ordering Provider: TEO VALLE Report Released Date/Time: July 16, 2022 09:37 AM Reporting Lab: [facility] [address] Performing Lab: [facility] [address] .INR 1.0 0.8-1.1 .PT 11.5 9.4-12.5 July 17, 2022 06:51 AM [facility] CBC Specimen Type: BLOOD No comment entered. Ordering Provider: TEO VALLE Report Released Date/Time: July 16, 2022 09:37 AM Reporting Lab: [facility] [address] Performing Lab: [facility] [address] WBC 6.05 4.0-11.0 RBC 3.77 L 4.6-6.2 HGB 12.7 L 13.5-17.9 HCT 36.0 L 41-54 MCV 95.5 80-100 MCH 33.7 H 27-33 MCHC 35.3 32.0-37.5 PLT 179 150-400 MPV 9.4 7.4-10.4 RDW 13.2 11.5-14.5 Vital Signs: All taken on the encounter date This section contains inpatient and outpatient Vital Signs collected on the date of the Encounter. Date/Time Temperature Pulse Blood Pressure Respiratory Rate SP02 Pain Height Weight Body Mass Index Source Aug 13, 2022 06:16 PM 97.5 F 82 /min 142/84 mm[Hg] 16 /min 94 % 9 [place] [facility] Social History: Smoking Status (Most current) and Tobacco Use (All prior to encounter date) This section includes the most current, and the historical, smoking and tobacco- related health factors from the [place] facility where the Encounter took place. Current Smoking Status This section includes the most current smoking, or tobacco-related health factor, from the [place] facility where the Encounter took place. Date/Time Current Smoking Status Comment Facil ity May 10, 2022 09:15 AM VA-TOBACCO FORMER USER [facility] Tobacco Use History This section includes a history of the smoking, or tobacco-related health factors, that were collected on or before the date of the Encounter. The data comes from the [place] facility where the Encounter took place. Date/Time Smoking Status/Tobacco Use Comment F acility May 10, 2022 09:15 AM VA-TOBACCO QUIT 15 YRS OR MORE [facility] May 11, 2021 09:15 AM VA-TOBACCO FORMER USER [facility] May 11, 2021 09:15 AM VA-TOBACCO QUIT 15 YRS OR MORE [facility] Nov 22, 2018 01:36 PM VA-TOBACCO NEVER USED [facility] Nov 12, 2017 07:35 AM FORMER TOBACCO USER 7Y OR GREATE R [facility] Nov 06, 2016 09:05 AM FORMER TOBACCO USER 7Y OR GREATE R [facility] Sep 27, 2015 09:42 AM FORMER TOBACCO USER 7Y OR GREATE R [facility] Sep 25, 2014 07:55 AM FORMER TOBACCO USER 7Y OR GREATE R [facility] Sep 08, 2013 07:48 AM FORMER TOBACCO USER 7Y OR GREATE R [facility] July 09, 2012 09:20 AM FORMER TOBACCO USE >1Y <7Y [facility] Jun 06, 2011 07:53 AM FORMER TOBACCO USE >1Y <7Y [facility] Sep 09, 2009 03:03 PM FORMER TOBACCO USE >1Y <7Y [facility] Aug 11, 2008 01:06 PM FORMER TOBACCO USE <1Y [facility] Sep 19, 2007 02:52 PM CURRENT TOBACCO USER [facility] Sep 03, 2006 03:32 PM CURRENT TOBACCO USER [facility] Advance Directives: All historical and current Section Date Range: From patient's date of to the date document was created. This section includes ALL of a patient's completed or amended [place] Advance and Rescinded Directives. The entries below indicate that a directive exists for the patient, but an actual copy is not included with this document. The data comes from all [facility]. Date Advance Directives Provider Source Mar 18, 2003 ADVANCE DIRECTIVE [facility] Radiology Reports: +/- 30 days of [...] the Encounter. The data comes from all [place] treatment facilities. Date/Time Radiology Report Provider Source Aug 23, 2022 01:11 PM MRI-BRAIN (P): MARYJO WAGNER [id number] -1950 M Ex Date: AUG 23, 2022@13:11 Req Phys: Serena ESQUIVEL Pat Loc: [facility] (Re Img Loc: MRI IMAGING Service: Unknown (Case [id number] COMPLETE) MRI BRAINBRAINSTEM W & W/O CONTRA(MRI Detailed) CPT:06990 Contrast Media : Gadolinium Reason for Study: APHASIA X3 DAYS Clinical History: MRI BRAIN WITH/WITHOUT CONTRAST [place] IS NOT under investigation for COVID-19 or is COVID-19 negative Did the ordering provider speak with a legal consultant regarding this imaging exam? Yes, Name of legal consultant (resident or staff):Neurology Aphasia x 3 days Responsible provider name and phone number to notify for critical findings if other than user placing the order and pager listed below: User placing orders pager: [phone] [id number] LAST CREATININE 0.8 (08/23/22) Allergies: HAZELNUTS (Nov 21, 2002) Report Status: Verified Date Reported: AUG 23, 2022 Date Verified: AUG 23, 2022 Offset Proof Press Operator E-Sig:/ES/TERESA SANTAMARIA MD Report: MRI BRAINBRAINSTEM [...] in the left supratentorial compartment results in njai-xh-tqxqr midline shift again measuring up to 1.4 [...] intracranial mass effect, with rightward subfalcine herniation (czmg-dz-arbkl midline shift measures up to 1.4 cm) [...] Primary Interpreting Staff: TERESA SANTAMARIA MD, RADIOLOGIST (Offset Proof Press Operator) /[facility] TERESA SANTAMARIA [facility] Aug 23, 2022 12:03 PM CTA CAROTID/COW (P): MARYJO WAGNER [id number] -1950 M Ex Date: AUG 23, 2022@12:03 Req Phys: Serena ESQUIVEL Pat Loc: [facility] (Re [facility] Loc: CT IMAGING Service: Unknown (Case [id number] COMPLETE) CTA HEAD W/POSTPROCESSING (CT Detailed) CPT:09955 Contrast Media : unspecified contrast media Reason for Study: APHASIAx3 days (Case 1532 COMPLETE) CTA NECK (CT Detailed) CPT:11335 Contrast Media : unspecified contrast media Non-ionic [...] pager listed below: User placing orders pager: [phone] [id number] LAST 3: Collection DT Specimen Test Name [...] PLASMA ESTIMATED GFR(eGF >60 Ref: >=60 Allergies: ([place] only) HAZELNUTS (Nov 21, 2002) To see allergies from all [facility] locations click Reports tab>Remote Data>All Available Sites>Clinical Reports>Allergies. Report Status: Verified Date Reported: AUG 23, 2022 Date Verified: AUG 23, 2022 Offset Proof Press Operator E-Sig:/ES/TERESA SANTAMARIA MD Report: CTA HEAD [...] contribute to left cerebral white matter edema. Lllc-cr-bwhxo midline shift measures up to 1.4 cm. [...] left lateral ventricle. Rightward subfalcine herniation, with yttl-nr-mjapc midline shift measuring up to 1.4 cm. [...] Primary Interpreting Staff: TERESA SANTAMARIA MD, RADIOLOGIST (Offset Proof Press Operator) /[facility] TERESA SANTAMARIA [facility] Aug 23, 2022 09:29 AM ELBOW LEFT 3 OR MORE VIEWS: MARYJO WAGNER DIRK [id number] -1950 M Ex Date: AUG 23, 2022@09:29 Req Phys: LEIF BALBUENA Loc: [facility] 2F (Req'g Img Loc: MAIN X-RAY Service: Unknown (Case [id number] COMPLETE) ELBOW LEFT 3 OR MORE VIEWS (RAD Detailed) CPT:47063 Reason for Study: postop Clinical History: [place] IS NOT under investigation for COVID-19 or is COVID-19 negative postop Responsible provider name and phone number to notify for critical findings if other than user placing the order and pager listed below: User placing orders pager: [phone] LAST CREATININE 0.9 (07/19/22) Report Status: Verified Date Reported: AUG 23, 2022 Date Verified: AUG 23, 2022 Offset Proof Press Operator E-Sig:/ES/ALBINA LEE MD Report: Exam: Left [...] Primary Interpreting Staff: ALBINA LEE MD, RADIOLOGIST (Offset Proof Press Operator) /ALBINA SALEH [facility] July 20, 2022 07:50 AM CHEST 1 VIEW: MARYJO WAGNER [id number] -1950 M Exm Date: JULY 20, 2022@07:50 Req Phys: MACKENZIE COTTER Pat Loc: 07-20-2022@08:26 Img Loc: MAIN X-RAY Service: PRIMARY CARE - MED OFFICE (Case [id number] COMPLETE) CHEST 1 VIEW (RAD Detailed) CPT:99909 Proc Modifiers : PORTABLE EXAM Reason for Study: see below. thanks. Clinical History: IS NOT under investigation for COVID-19 or is COVID-19 negative Please further evaluate for acute airspace disease given o2 requirement. Thanks. Responsible provider name and phone number to notify for critical findings if other than user placing the order and pager listed below: User placing orders pager: [phone] same LAST CREATININE 0.9 (07/19/22) Report Status: Verified Date Reported: JULY 20, 2022 Date Verified: JULY 20, 2022 Offset Proof Press Operator E-Sig:/ES/JAMIE MIGUEL MD Report: EXAM: CHEST [...] pager listed below: User placing orders pager: [phone] same LAST CREATININE 0. COMPARISON: Chest CT [...] Primary Interpreting Staff: JAMIE MIGUEL MD, RADIOLOGIST (Offset Proof Press Operator) /JAMIE FRANCES [facility] July 18, 2022 12:59 PM ELBOW LEFT 2 VIEWS: MARYJO WAGNER [id number] -1950 M Exm Date: JULY 18, 2022@12:59 Req Phys: LEIF BALBUENA Loc: OR-PACU/07-18-2022@13:59 Img Loc: MAIN X-RAY Service: [facility]ZSURGICAL SERVICE (Case [id number] COMPLETE) ELBOW LEFT 2 VIEWS (RAD Detailed) CPT:51809 Proc Modifiers : PORTABLE EXAM, OPERATING ROOM EXAM Reason for Study: post-op Clinical History: post-op Report Status: Verified Date Reported: JULY 18, 2022 Date Verified: JULY 18, 2022 Offset Proof Press Operator E-Sig:/ES/JAKUB LEE MD Report: EXAM: ELBOW [...] Primary Interpreting Staff: JAKUB LEE MD, RADIOLOGIST (Offset Proof Press Operator) /JAKUB LUCERO [facility] July 18, 2022 07:30 AM FLUORO UP TO 1 HR PHYSICIAN TIME: MARYJO WAGNER [id number] -1950 M Exm Date: JULY 18, 2022@07:30 Req Phys: LEIF BALBUENA Loc: OR-PACU/07-18-2022@13:14 Img Loc: MAIN X-RAY Service: PRIMARY CARE - MED OFFICE (Case [id number] COMPLETE) FLUORO UP TO 1 HR PHYSICIAN TIME (RAD Detailed) CPT:95264 Proc Modifiers : PORTABLE EXAM, OPERATING ROOM EXAM, LEFT Reason for Study: Left distal humerous ORIF Clinical History: OR 7 Pathologic distal humeral shaft fracture Responsible provider name and phone number to notify for critical findings if other than user placing the order and pager listed below: User placing orders pager: Henry BALBUENA [phone] LAST CREATININE 0.8 (07/17/22) Report Status: Electronically Filed Date Reported: JULY 18, 2022 Report: Impression: Please see the full report for this procedure in [facility] patient progress notes. Fluoro guidance was provided during this procedure, but the study was not reviewed or verified by a [facility] radiologist. The radiation exposure dose has been recorded in the patient's chart. If you are unable to view this data, please contact the Imaging Department. VERIFIED BY: / *ELECTRONICALLY FILED* [facility] July 17, 2022 03:28 PM ABDOMINAL AORTOGRAM (P): MARYJO WAGNER [id number] -1950 M Exm Date: JULY 17, 2022@15:28 Req Phys: MALCOM LANGLEY Loc: 07-17-2022@15:54 Img Loc: INTERVENTIONAL RADIOLOGY Service: PRIMARY CARE - MED OFFICE (Case [id number] COMPLETE) ANGIOGRAPHY EXTREMITY UNILAT S&I (ANI Detailed) CPT:96696 Reason for Study: codes (Case 528 COMPLETE) IR AORTOGRAPHY ABDOMINAL W/O RUNO(ANI Detailed) CPT:35352 (Case 529 COMPLETE) IR FOREIGN BODY REMOVAL INTRAVASC(ANI Detailed) CPT:12468 (Case 532 COMPLETE) IR NEEDLE/INTRACATH PLACEMENT EXT(ANI Detailed) CPT:02941 (Case 533 COMPLETE) IR PLACEMENT OCCLUSIVE DEVICE SAM(ANI Detailed) CPT:G0269 Clinical History: codes Report Status: Verified Date Reported: JULY 17, 2022 Date Verified: JULY 17, 2022 Offset Proof Press Operator E-Sig:/ES/MALCOM LANGLEY MD Report: RADIOLOGIST: Malcom [...] angiogram and runoff. 12. Closure of right INTERNET SALES DIRECTOR with Angio-Seal device. HISTORY: Metastatic renal cell [...] Sheath removed over guidewire and a 5 indonesian vascular sheath advanced over guidewire into the artery. An H1 catheter was advanced along with the guidewire into the thoracic arch and the left subclavian artery was selected. Catheter and the guidewire were advanced into the left brachial artery. The 5 [place] sheath was exchanged for a 6 [place] sheath that was advanced into the left [...] arteries. Sheath and catheters were removed and INTERNET SALES DIRECTOR arteriotomy was closed using Angioseal. There is patent hemostasis. No bleeding or hematoma noted. Sterile dressing applied. 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 Primary Interpreting Staff: MALCOM LANGLEY MD, INTERVENTIONAL RADIOLOGIST (Offset Proof Press Operator) /MALCOM HE [facility] July 17, 2022 07:30 AM RENAL ARTERY EMBOLIZATION (P): MARYJO WAGNER [id number] -1950 M Exm Date: JULY 17, 2022@07:30 Req Phys: WESTON VASQUEZ [facility] Loc: 07-17-2022@15:46 Img Loc: INTERVENTIONAL RADIOLOGY Service: PRIMARY CARE - MED OFFICE (Case 130 COMPLETE) IR TRANSCATH EMBOLIZATION W/ANGIO(ANI Detailed) CPT:09224 Reason for Study: embolization of RCC mets to left humerus (Case 131 COMPLETE) IR ARTERIAL EMBOLIZATION OTHER TH(ANI Detailed) CPT:27986 (Case 132 COMPLETE) IR US GUIDANCE VASCULAR ACCESS (ANI Detailed) CPT:81482 Clinical History: IS NOT under investigation for [...] pager listed below: User placing orders pager: [phone] LAST CREATININE 1.0 (07/13/22) Report Status: Verified Date Reported: JULY 17, 2022 Date Verified: JULY 17, 2022 Offset Proof Press Operator E-Sig:/ES/MALCOM LANGLEY MD Report: RADIOLOGIST: Malcom [...] angiogram and runoff. 12. Closure of right INTERNET SALES DIRECTOR with Angio-Seal device. HISTORY: Metastatic renal cell [...] Sheath removed over guidewire and a 5 indonesian vascular sheath advanced over guidewire into the artery. An H1 catheter was advanced along with the guidewire into the thoracic arch and the left subclavian artery was selected. Catheter and the guidewire were advanced into the left brachial artery. The 5 [place]er sheath was exchanged for a 6 [place] sheath that was advanced into the left [...] arteries. Sheath and catheters were removed and INTERNET SALES DIRECTOR arteriotomy was closed using Angioseal. There is patent hemostasis. No bleeding or hematoma noted. Sterile dressing applied. 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 FINDINGS: [...] less likely. READING PHYSICIAN: Xavier Merrill MD -[id number] 07/14/2022 5:11 PDT [facility] National Teleradiology Program [phone] (For Medical Practitioner Use Only) Attention Patients / Veterans: If you have questions or concerns about these test results, please contact your ordering provider or primary care team. Primary Interpreting Staff: RADIOLOGY,OUTSIDE SERVICE, Staff Physician / RADIOLOGY,OUTSIDE SERVICE [facility] Pathology Reports: +/- 30 days of [...] the Encounter. The data comes from all [place] treatment facilities. Date/Time Pathology Report Provider Source July 13, 2022 04:06 PM LR SURGICAL PATHOL OGY REPORT: LOCAL TITLE: LR SURGICAL PATHOLOGY REPORT STANDARD TITLE: PATHOLOGY REPORT DATE OF NOTE: JULY 21, 2022@14:37:27 ENTRY DATE: JULY 21, 2022@14:37:27 AUTHOR: JIAN SANDOVAL EXP COSIGNER: URGENCY: STATUS: COMPLETED $APHDR Reporting Lab: [facility] [CLIA# [id number]] [place] [address] - - - - - - - [...] SANDOVAL STAFF PATHOLOGIST, PATHOLOGY & LABORATORY [facility] Signed July 21, 2022@14:37 Performing Laboratory: Surgical Pathology Report Performed By: [facility] [CLIA# [id number]] [place] [address] $FTR - - - - - - - - - - - - - - - - - - - - - - - - - - - - - - - - - - - - - - - - (End of report) JIAN SANDOVAL MD [facility] Date July 21, 2022 - - - - - - - - - - - - - - - - - - - - - - - - - - - - - - - - - - - - - - - - MARYJO WAGNER STANDARD FORM 515 ID:[id number] SEX:M :1950 AGE: 72 LOC:[facility] PATHOLOGY PRO FEE ADM:June DX:PATHOLOGIC FX LF HUMERUS PCP: Leif Balbuena MD /sangita/ JIAN SANDOVAL STAFF PATHOLOGIST, PATHOLOGY & LABORATORY MED [facility] Signed: 07/21/2022 14:37 JIAN SANDOVAL [facility] Encounter Notes: All associated encounter notes This section contains the clinical notes associated to the Encounter. Date/Time Encounter Note(s) Provider Source Aug 13, 2022 06:54 PM NURSING EMERGENCY DEPT NOTE: LOCAL TITLE: EMERGENCY DEPT NURSING NOTE STANDARD TITLE: NURSING EMERGENCY DEPT NOTE DATE OF NOTE: AUG 13, 2022@18:54 ENTRY DATE: AUG 13, 2022@18:54:19 AUTHOR: OSEI BALL COSIGNER: URGENCY: STATUS: COMPLETED Emergency Department Discharge Education Personal Protective Equipment (PPE): Patient was in mask on arrival, Patient was in mask on arrival, patient remained masked for entire visit, RN used PPE during every encounter with the patient, MD/PA/INSTRUCTIONAL DESIGN SPECIALIST used PPE during every encounter with the patient The patient was given education on the following: clogged catheter EDUCATION/TEACH BACK: [facility] discharge instructions have been reviewed with Patient AND had an opportunity to ask questions, has verbalized understanding, have received a copy of the [facility] instructions, Performs skills effectively EDUCATIONAL LEVEL OF UNDERSTANDING: Patient was ready and receptive to education. BARRIERS TO LEARNING: No barriers identified Accompanied by: Self Mode of Transportation: Relative/friend Discharged to: Home // OSEI KHAN, RN, [place] Signed: 08/13/2022 18:55 OSEI BALL [facility] Aug 13, 2022 06:51 PM PHYSICIAN EMERGENCY DEPT NOTE: LOCAL TITLE: EMERGENCY DEPT NOTE STANDARD TITLE: PHYSICIAN EMERGENCY DEPT NOTE DATE OF NOTE: AUG 13, 2022@18:51 ENTRY DATE: AUG 13, 2022@18:51:39 AUTHOR: SARBJIT RANDOLPH COSIGNER: URGENCY: STATUS: COMPLETED Personal Protective Equipment (PPE): Patient was in mask on arrival, patient remained masked for entire visit, MD/PA/INSTRUCTIONAL DESIGN SPECIALIST used PPE during every encounter with the patient Nurse's note reviewed. Chief Complaint: The patient is a 72 y/o MALE complaining of: Abdominal pain, catheter not emptying TDAP/TD Immunizations No data available for: TETANUS TOXOID, ADSORBED TETANUS TOXOID, NOT ADSORBED TETANUS TOXOID, UNSPECIFIED FORMULATION TDAP Covid-19 Immunizations No prior COVID-19 immunization History of present illness: 72-year-old male with history of renal cell carcinoma, recent surgery on his left upper extremity, indwelling bladder catheter for about the last 3 weeks reports that it has not been draining since 9 or 10:00 this morning. He had noted some blood in the urine. He had progressively more discomfort till he presented to the emergency department. Denies any fevers, chills or other problems. Allergies: HAZELNUTS (Nov 21, 2002) Past Medical History: Active problems - Computerized Problem List is the source for the followin. OBESITY, UNSP 2. LIVER CHEM, ABNORMAL 3. Adjustment Disorder with Mixed Anxiety and Depressed Mood 4. Other and unspecified Sleep Apnea 5. Elevated Prostate Specific Antigen (PSA) 6. Dysmetabolic Syndrome X 7. Polyp of colon (SNOMED CT 35190939) - 2012, repeat in 7-10 years, see report 8. Malignant tumor of prostate (SNOMED CT 181225754) 9. Benign hypertension 10. Retention of urine 11. Malignant tumor of kidney parenchyma 12. Multinodular goiter 13. Secondary malignant neoplasm of pancreas Medications: Active Outpatient Medications (excluding Supplies): Outpatient Medications Status 1) ACETAMINOPHEN 325MG TAB [...] A DAY FOR PAIN TAPER PAIN IMPROVES Non-VA Medications Status 1) Non-VA ASPIRIN TAB 81MG MOUTH EVERY DAY ACTIVE 2) Non-VA CHONDROITIN CAP/TAB 1 TABLET TWICE A DAY ACTIVE 3) Non-VA GLUCOSAMINE CAP/TAB 1 TABLET TWICE A DAY ACTIVE 4) Non-VA MULTIVITAMIN CAP/TAB 1 TABLET MOUTH EVERY DAY ACTIVE 12 Total Medications Physical Exam: BP: 142/84 (08/13/2022 18:16) P: 82 (08/13/2022 18:16) R: 16 (08/13/2022 18:16) T: 97.5 F [36.4 C] (08/13/2022 18:16) O2 Sats: 94% (08/13/2022 18:16) General: Somewhat chronically ill-appearing male initially walking any waiting room, but uncomfortable but nontoxic. Skin: Normothermic. He has some ecchymosis of the right groin (associated with vascular puncture site.) Respiratory: Lungs - Easy nonlabored Abdominal: Soft and nontender after catheter placement. Neuro: alert and oriented Extremities: Left upper extremity in a Chauncey wrap splint. ED Course/Medical Decision Making/Assessment: CPRS Notes/Labs Reviewed for Patient Encounter: Emergency department triage, emergency department nursing note, Previous Wang catheter removed, new Wang placed by RN. There was approximately 900 cc out with placement of the new catheter. RN reports the presence of several clots apparently blocking the catheter. Patient feels MUCH better and is profusely appreciative and thankful. Diagnosis and Plan: Clotted indwelling Wang catheter. Suspect some irritation, discussed with the patient indications for return and follow- up. He denies any signs or symptoms of infection at this time though was encouraged to be seen should any fever, discomfort or other problems occur. He is instructed to return for any problems with the catheter flowing. Disposition: See also written discharge instructions for details. Home, follow-up with urology as planned, sooner as needed. /sangita/ SARBJIT RANDOLPH MD ED PHYSICIAN Signed: 08/13/2022 19:02 SARBJIT RANDOLPH [facility] Aug 13, 2022 06:50 PM EMERGENCY DEPT EDUCATION NOTE: LOCAL TITLE: EMERGENCY DEPT DISCHARGE INSTRUCTIONS STANDARD TITLE: EMERGENCY DEPT EDUCATION NOTE DATE OF NOTE: AUG 13, 2022@18:50:35 ENTRY DATE: AUG 13, 2022@18:50:35 AUTHOR: SARBJIT RANDOLPH EXP COSIGNER: URGENCY: STATUS: COMPLETED DISCHARGE INSTRUCTIONS IMPORTANT: We examined and treated you today on an emergency basis only. This was not a substitute for, or an effort to provide, comprehensive medical care. In most cases, you must let your healthcare provider check you again. Tell your healthcare provider about any new or lasting problems. We cannot recognize and treat all injuries or illnesses in one Emergency Department visit. After you leave, you should follow the instructions below. You were treated today by Sarbjit Randolph MD. Special Information This Information Is About Your Follow Up Care Your recovery requires a follow up appointment with your doctor. It is important that you keep your scheduled clinic appointment. You can reach the Urology Clinic at . If you have any problems or concerns before the appointment, call the clinic. Future Appointments 08/23/2022 at 9:00am [facility] ORTHO OT KENA 2F 08/23/2022 at 10:30am [facility] PACT HAKEEM/GIANLUCA GALLARDO 4F 10/25/2022 at 7:00am [facility] LAB BLOOD DRAWING ROOM 10/25/2022 at 9:00am [facility] UROL CHIEF RES.2V This Information Is About Your Illness and Diagnosis Happy Father's Day, Enjoy the rest of today and every day and THANK YOU for your service. We are always here to serve you. Return for ANY PROBLEMS. Best with everything. URINARY CATHETER REPLACEMENT Your urinary catheter has been replaced today. It is important to check the catheter often to make sure it is draining well. How to care for your catheter: -Wash around your catheter twice a day. Use mild soap and water. Rinse all of the soap off! Left-over soap can make you sore. -Keep the catheter taped to your leg -- just as it was in the hospital. Do not let it pull tight or kink. -Empty your urine bag when it gets half full. Empty the urine into the toilet. -Keep your urine bag below the level of your bladder. -Never pull on the catheter. -Do not remove the catheter yourself unless told to do so. Please follow these instructions: -Try to drink more liquids - any kind you like (water, tea, soft drinks, etc.). -Make sure the catheter keeps draining. You should notice more urine collecting in the bag every few hours. -Wash around the catheter 2 times each day as instructed. Contact your health care provider as soon as possible if you have any of the following: -a fever or back pain. -trouble with the catheter draining urine. -urine draining around the catheter. -any sign of infection around the catheter (redness, pain, swelling, drainage, or odor). -any new or severe symptoms. ACUTE URINARY RETENTION Acute urinary retention occurs when you are not able to pass urine when you want or need to do so. A bladder ultrasound may have been done to find the cause of your urinary retention. Acute urinary retention is often treated by inserting a catheter into the bladder to release the urine. What are some causes of acute urinary retention? -outflow obstructions (related to a narrowing or blockage in the urethra - the canal that urine travels from the bladder to the outside of your body): -a narrowing of the urethra most often related to an enlarged prostate in men -increased muscle tone within and around the urethra -problems with the nerves that supply the bladder or urinary sphincter; this is often associated with spinal cord injuries, stroke, and other neurologic disorders -problems with the muscles of the bladder that are responsible for holding and releasing urine -side effects of certain medicines, such as opioids and nasal decongestants -side effect of anesthesia after surgery -trauma or radiation to the urethra, pelvis, or penis. Acute urinary retention also may occur after giving . -defects in the structure or growths on the urethra, vagina, or bladder -urinary tract infection What are the signs and symptoms of acute urinary retention? -feeling the need to urinate, but not able to pass the urine -pain or discomfort in the lower belly area -a distended lower belly Please follow these instructions: -Follow any specific treatment as prescribed by your health care provider. Treatment depends on the cause of your urinary retention. -Take any medicines exactly as prescribed. Contact your health care provider as soon as possible if: -your symptoms recur or do not go away. -you have any new or severe symptoms. IMPORTANT MEDICATION INFORMATION -Your medication list includes any medications that were recently prescribed but not filled by the Pharmacy (PENDING Medicines). -Included are any known ACTIVE Medicines. Please review this list to make sure it is accurate, if this list does not match the current medications you are taking please follow-up with your Primary Care Team to have your Medication List reviewed. Pending Medications [none] Active Medications ACETAMINOPHEN 325MG TAB TAKE TWO TABLETS BY MOUTH EVERY 6 HOURS NEEDED FOR PAIN ASPIRIN 81MG EC TAB TAKE TWO TABLETS BY MOUTH EVERY DAY TO PREVENT BLOOD CLOTS TAKE UNTIL TOLD OKAY TO DISCONTINUE BY ORTHOPEDICS ASPIRIN TAB 81MG MOUTH EVERY DAY (Non-VA Medication) CATHETER,SELF-CATH COUDE 14FR COLO#32293 USE CATHETER TOPICALLY DIRECTED CHONDROITIN CAP/TAB 1 TABLET TWICE A DAY (Non-VA Medication) GLUCOSAMINE CAP/TAB 1 TABLET TWICE A DAY (Non-VA Medication) LISINOPRIL 20MG TAB TAKE ONE TABLET BY MOUTH EVERY DAY FOR BLOOD PRESSURE LUBRICATING TOP JELLY BACTERIOSTATIC APPLY JELLY TOPICALLY DIRECTED MULTIVITAMINS TAB 1 TABLET MOUTH EVERY DAY (Non-VA Medication) NALOXONE HCL 4MG/SPRAY SOLN NASAL SPRAY SPRAY 1 DOSE IN ONE NOSTRIL NEEDED FOR UNRESPONSIVENESS THEN CALL 911 OXYCODONE 5MG TAB TAKE ONE TABLET BY MOUTH THREE TIMES A DAY NEEDED FOR PAIN POLYETHYLENE GLYCOL 3350 ORAL PWDR TAKE 17 GRAMS BY MOUTH EVERY DAY NEEDED FOR CONSTIPATION PREGABALIN 25MG ORAL CAP TAKE ONE CAPSULE BY MOUTH THREE TIMES A DAY FOR PAIN TAPER PAIN IMPROVES Medications Medications in the last 90 days SODIUM FLUORIDE 1.1% TOOTHPASTE USE SMALL AMOUNT MOUTH EVERY MORNING AND AT BEDTIME ON TOOTHBRUSH, BRUSH FOR 2 MINUTES Discontinued Medications Medications discontinued in the last 90 days OXYCODONE 5MG TAB TAKE ONE TABLET BY MOUTH Q6 NEEDED FOR PAIN YOU ARE THE MOST IMPORTANT FACTOR IN YOUR RECOVERY. Follow the above instructions carefully. Take your medicines as prescribed. If you do not understand any of your medicines, please ask questions. If you have any outstanding tests from the emergency department, please contact your provider to review them in the next 3-5 days. If you have new symptoms, feel worse, or are not getting better as discussed, call to discuss your health questions and arrange for follow-up care, or return to the Emergency Room IF YOU ARE EXPERIENCING A MEDICAL EMERGENCY CALL 911 OR GO TO THE NEAREST EMERGENCY ROOM // SARBJIT RANDOLPH MD ED PHYSICIAN Signed: 08/13/2022 18:50 SARBJIT RANDOLPH [facility] Aug 13, 2022 06:29 PM NURSING EMERGENCY DEPT NOTE: LOCAL TITLE: EMERGENCY DEPT NURSING NOTE STANDARD TITLE: NURSING EMERGENCY DEPT NOTE DATE OF NOTE: AUG 13, 2022@18:29 ENTRY DATE: AUG 13, 2022@18:29:41 AUTHOR: OSEI BALL EXP COSIGNER: URGENCY: STATUS: COMPLETED EMERGENCY DEPT NURSING NOTE Has ADDENDA Nursing Focused Assessment: CHIEF COMPLAINT: Wang cath with clots noted this lizzette, no longer draining. Wang placed 07/18 interm while limited mobility post-op for humeral fx. Normally straight caths. Allergies/ADR: HAZELNUTS (Nov 21, 2002) Additional allergies not listed: None Vital Signs * Blood Pressure: 142/84 (08/13/2022 18:16) Heart Rate: 82 (08/13/2022 18:16) Respirations: 16 (08/13/2022 18:16) Temperature: 97.5 F [36.4 C] (08/13/2022 18:16) Pain: 9 (08/13/2022 18:16) Weight: 245 lb [111.13 kg] (07/28/2022 10:23) O2 Sats: 94% (08/13/2022 18:16) Tobacco use: No Alcohol use: No Any drugs besides what is prescribed or over the counter: No ABUSE/NEGLECT: No evidence of abuse/neglect REVIEW OF SYSTEM-FOCUSED ASSESSMENT Neurological: Alert Julia Coma Scale: Date and Time Preformed: Jul@18:30 Best Motor Response: Obeys simple commands - 6 Best Verbal Response: Oriented - 5 Eye Opening: Spontaneous - 4 Total: 15 Respiratory: Quality of breath: Equal and unlabored chest rise and fall Genitourinary: Hematuria Any drainage tubes in place on arrival to ED: Wang catheter: Date of placement: June Size: 16 indonesian Draining: Not at this time color: clots, dark INTERVENTIONS: Oriented to room and bed controls Call light within reach of patient or family/friend Bed in low position and locked Family/friend at bedside /sangita/ OSEI KHAN, RN, [place] Signed: 08/13/2022 18:43 08/13/2022 ADDENDUM STATUS: COMPLETED Attempted to irrigate without success. New 16F wang catheter placed; 900cc watermelon color urine drained. /miguelina KHAN, RN, LAWRENCE Signed: 08/13/2022 18:44 OSEI BALL [facility] Aug 13, 2022 06:17 PM NURSING EMERGENCY DEPT TRIAGE NOTE: LOCAL TITLE: EMERGENCY DEPARTMENT NURSING TRIAGE NOTE STANDARD TITLE: NURSING EMERGENCY DEPT TRIAGE NOTE DATE OF NOTE: AUG 13, 2022@18:17 ENTRY DATE: AUG 13, 2022@18:18:01 AUTHOR: GITA RIVAS COSIGNER: URGENCY: STATUS: COMPLETED Emergency Department/Urgent Care Center Triage Patient age:72 Sex: MALE On arrival patient was: AMBULATORY Patient phone number: [phone] Allergies: HAZELNUTS (Nov 21, 2002) Subjective/Chief Complaint: Has a wang catheter, it stopped draining about 5 hrs ago. Objective: Having a lot of bladder pain and blood in his leg bag. Walking about the ER waiting room. The patient is not a fall risk. Vital Signs * Blood Pressure: 142/84 (08/13/2022 18:16) Heart Rate: 82 (08/13/2022 18:16) Respirations: 16 (08/13/2022 18:16) Temperature: 97.5 F [36.4 C] (08/13/2022 18:16) Pain: 9 (08/13/2022 18:16) Weight: 245 lb [111.13 kg] (07/28/2022 10:23) O2 Sats: 94% (08/13/2022 18:16) Emergency Severity Index (DANE) level Level 3 Current Medications: Active Outpatient Medications (including Supplies): Active Outpatient Medications Status 1) ACETAMINOPHEN 325MG TAB TAKE TWO TABLETS BY MOUTH ACTIVE EVERY 6 HOURS NEEDED FOR PAIN 2) ASPIRIN 81MG EC TAB TAKE TWO TABLETS BY MOUTH EVERY ACTIVE DAY TO PREVENT BLOOD CLOTS TAKE UNTIL TOLD OKAY TO DISCONTINUE BY ORTHOPEDICS 3) CATHETER,SELF-CATH COUDE 14FR COLO#99383 USE CATHETER ACTIVE TOPICALLY DIRECTED 4) LISINOPRIL 20MG TAB TAKE ONE TABLET BY MOUTH EVERY ACTIVE DAY FOR BLOOD PRESSURE 5) LUBRICATING TOP JELLY BACTERIOSTATIC APPLY JELLY ACTIVE TOPICALLY DIRECTED 6) NALOXONE HCL 4MG/SPRAY SOLN NASAL SPRAY SPRAY 1 DOSE ACTIVE IN ONE NOSTRIL NEEDED FOR UNRESPONSIVENESS THEN CALL 911 7) OXYCODONE 5MG TAB TAKE ONE TABLET BY MOUTH THREE ACTIVE TIMES A DAY NEEDED FOR PAIN 8) POLYETHYLENE GLYCOL 3350 ORAL PWDR TAKE 17 GRAMS BY ACTIVE MOUTH EVERY DAY NEEDED FOR CONSTIPATION 9) PREGABALIN 25MG ORAL CAP TAKE ONE CAPSULE BY MOUTH ACTIVE THREE TIMES A DAY FOR PAIN TAPER PAIN IMPROVES Active Non-VA Medications Status 1) Non-VA ASPIRIN TAB 81MG MOUTH EVERY DAY ACTIVE 2) Non-VA CHONDROITIN CAP/TAB 1 TABLET TWICE A DAY ACTIVE 3) Non-VA GLUCOSAMINE CAP/TAB 1 TABLET TWICE A DAY ACTIVE 4) Non-VA MULTIVITAMIN CAP/TAB 1 TABLET MOUTH EVERY DAY ACTIVE 13 Total Medications Current Problems: OBESITY, UNSP (ICD-9-CM 278.00) LIVER CHEM, ABNORMAL (ICD-9-CM 790.5) Adjustment Disorder with Mixed Anxiety aOther and unspecified Sleep Apnea (ICD-9-CM 780.57) Elevated Prostate Specific Antigen (PSA)Dysmetabolic Syndrome X (ICD-9-CM 277.7) Polyp of colon (SCT 40111184) Malignant tumor of prostate (SCT 448705218) Benign hypertension (SCT 93276570) Retention of urine (SCT 121871144) Malignant tumor of kidney parenchyma (SCMultinodular goiter (SCT 873262795) Secondary malignant neoplasm of pancreas Identification of Seniors at Risk (ISAR):* Defer screen <75 Coronavirus Disease 2019 (COVID-19) Screen The patient was asked if in the last 14 days they have had new onset of any COVID-19 symptoms. They report the following: No symptoms Within the past 14 days, the patient reports no exposure to someone with a febrile/respiratory illness or someone with a known or suspected case of COVID-19 (within 6 feet for > 15 minutes). Result: Screen is negative. Result: Screen is negative. Suicide Screen: [place] Suicide Severity Rating Scale (C-SSRS) screener 1. Over the past month, have you wished you were or wished you could go to sleep and not wake up? No 2. Over the past month, have you had any actual thoughts of killing yourself? No 3. Over the past month, have you been thinking about how you might do this? Response not required due to responses to other questions. 4. Over the past month, have you had these thoughts and had some intention of acting on them? Response not required due to responses to other questions. 5. Over the past month, have you started to work out or worked out the details of how to kill yourself? Response not required due to responses to other questions. 6. If yes, at any time in the past month did you intend to carry out this plan? Response not required due to responses to other questions. 7. In your lifetime, have you ever done anything, started to do anything, or prepared to do anything to end your life (for example, collected pills, obtained a gun, gave away valuables, went to the roof but didn't jump)? No 8. If YES, was this within the past 3 months? Response not required due to responses to other questions. /sangita/ GITA RIVAS RN OPERATIONS ENGINEER Signed: 08/13/2022 18:19 GITA RIVAS [facility]
--- OUTSIDE RECORDS SUMMARY | 2023-03-24 08:29 | XMS_ITS | Encounter Summary ---
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 of Vetera [facility] Address [address] [place] [address] Support Name Relationship Address Phone DOREEN WAGNER Next of Kin [address] [place] [phone] DOREEN Emergency Contact [address] [place] [phone] Insurance Providers: All historical and current [...] Policy [place] [employer] (WNR) MEDICARE ADVANTAGE [facility] (WNR) June 26, 2016 [id number] JOAN WAGNER KARSTEN PATIENT [employer] MCR (WNR) MEDICARE ADVANTAGE [facility] (WNR) June 26, 2016 [id number] [phone] JOAN WAGNER KARSTEN PATIENT [employer] MCR (WNR) MEDICARE ADVANTAGE [facility] (WNR) June 26, 2016 [id number] [phone] JOAN WAGNER PATIENT Selected Encounter This section includes the information on record at [facility] for the Encounter. Date/Time Encounter Type Encounter Description Reason Pro vider Source Aug 03, 2022 01:22 PM Outpatient Encounter EVENT (HISTORICAL) IHE Encounter Template Text not used by [facility] Plan of Treatment: Future Appointments (+ 6 [...] 20 appointments. The data comes from all [facility]. Appointment Date/Time Appointment Type Appointme nt Facility Name Aug 13, 2022 06:13 PM AMBULATORY - MEDICINE [facility] Aug 23, 2022 09:30 AM AMBULATORY - SURGERY [facility] Aug 23, 2022 09:45 AM AMBULATORY - NONE [facility] Aug 23, 2022 10:30 AM AMBULATORY - MEDICINE [facility] Aug 23, 2022 10:31 AM AMBULATORY - MEDICINE [facility] Sep 06, 2022 10:15 AM AMBULATORY - SURGERY [facility] Oct 25, 2022 07:00 AM AMBULATORY - NONE [facility] Oct 25, 2022 07:30 AM AMBULATORY - SURGERY [facility] Oct 25, 2022 09:00 AM AMBULATORY - SURGERY [facility] Active, Pending, and Scheduled Orders This section includes a listing of several types of active, pending, and scheduled orders, including clinic medications orders, diagnostic test orders, procedure orders and consult orders; where the start date of the order is 45 days before the date of the Encounter or 45 days after the date of theEncounter. The data comes from all [facility]. Test Date/Time Test Type Test Details Facility Name July 14, 2022 12:00 AM Laboratory - Blood Bank Order ABO/RH - LAB BLOOD [facility] July 14, 2022 02:05 PM Laboratory - Blood Bank Order TYPE & SCREEN - LAB BLOOD [facility] Aug 07, 2022 11:23 AM Laboratory - [employer] Order DRUG SCREEN PANEL,URINE URINE ONCE [facility] Aug 23, 2022 10:47 AM Laboratory - Chemi stry Order URINALYSIS URINE ER STAT [facility] Lab Results: +/- 30 days of the encounter This section includes the Chemistry and Hematology Lab Results on record with [facility] for the patient. Radiology Reports and Pathology Reports are provided separately, in subsequent sections. Lab Results This section contains the Chemistry/Hematology Results that were resulted 30 days before or 30 daysafter the date of the Encounter. Date/Time Source Result Type Result - Unit Interpretation Reference Range Comment Aug 24, 2022 12:15 PM [facility] URINALYSIS Specimen Type: URINE No comment entered. Ordering Provider: DAWIT KIM Report Released Date/Time: Aug 24, 2022 09:34 AM Reporting Lab: [facility] [id number] Performing Lab: [facility] [address] URINE COLOR YELLOW SPECIFIC GRAVITY 1.030 1.003-1.03 [...] See_Commen t Aug 23, 2022 11:16 AM [facility] PROTHROMBIN TIME/INR Specimen Type: PLASMA No comment entered. Ordering Provider: Serena ESQUIVEL Report Released Date/Time: Aug 23, 2022 10:47 AM Aug 23, 2022 11:16 AM [facility] ACT PART THROMBO TIME Specimen Type: PLASMA No comment entered. Ordering Provider: Serena ESQUIVEL Report Released Date/Time: Aug 23, 2022 10:47 AM Reporting Lab: [facility] [address] Performing Lab: [facility] [address] APTT 30.2 25.1-36.5 Aug 23, 2022 11:16 AM [facility] LIPID PANEL,NON-FASTING Specimen Type: PLASMA No comment entered. Ordering Provider: Serena ESQUIVEL Report Released Date/Time: Aug 23, 2022 10:47 AM Reporting Lab: [facility] [address] Performing Lab: [facility] [address] CHOLESTEROL 129 See_Comm en t .HDL 36 L See_Commen t LDL CALCULATION 68 See_Commen t VLDL CALCULATION 25 See_Commen t NON HDL CHOLESTEROL 93 See_Commen t TRIG(NON FASTING) 123 See_Commen t Aug 23, 2022 11:16 AM [facility] TSH W/REFLEX TO FREE T4 Specimen Type: PLASMA No comment entered. Ordering Provider: Serena ESQUIVEL Report Released Date/Time: Aug 23, 2022 10:47 AM Reporting Lab: [facility] [address] Performing Lab: [facility] [address] TSH 1.54 0.35-4.94 Aug 23, 2022 11:16 AM [facility] SED RATE Specimen Type: BLOOD No comment entered. Ordering Provider: Serena ESQUIVEL Report Released Date/Time: Aug 23, 2022 10:47 AM Reporting Lab: [facility] [address] Performing Lab: [facility] [address] SED RATE 31 H 5-15 Aug 23, 2022 11:16 AM [facility] CARDIAC TROPONIN I Specimen Type: PLASMA No comment entered. Ordering Provider: Serena ESQUIVEL Report Released Date/Time: Aug 23, 2022 10:47 AM Reporting Lab: [facility] [address] Performing Lab: [facility] [address] CARDIAC TROPONIN I <0.028 See_Commjd t Aug 23, 2022 11:16 AM [facility] C-REACTIVE PROTEIN Specimen Type: SERUM No comment entered. Ordering Provider: Serena ESQUIVEL Report Released Date/Time: Aug 23, 2022 10:47 AM Reporting Lab: [facility] [address] Performing Lab: [facility] [address] C-REACTIVE PROTEIN 3.14 See_Commjd t Aug 23, 2022 11:16 AM [facility] PHOSPHORUS Specimen Type: PLASMA No comment entered. Ordering Provider: Serena ESQUIVEL Report Released Date/Time: Aug 23, 2022 10:47 AM Reporting Lab: [facility] [address] Performing Lab: [facility] [address] PHOSPHORUS 3.9 2.3-4.7 Aug 23, 2022 11:16 AM [facility] COMPREHENSIVE METABOLIC PANEL+MG Specimen Type: PLASMA No comment entered. Ordering Provider: Serena ESQUIVEL Report Released Date/Time: Aug 23, 2022 10:47 AM Reporting Lab: [facility] [address] Performing Lab: [facility] [address] CREATININE 0.8 0.7-1.2 UREA NITROGEN 15 8-26 [...] See_Commen t Aug 23, 2022 11:16 AM [facility] HEMOGLOBIN A1C Specimen Type: BLOOD Comment: [...] Aug 23, 2022 10:47 AM Reporting Lab: [facility] [address] Performing Lab: [facility] [address] HEMOGLOBIN A1C 4.2 4.0-6.0 Aug 23, 2022 11:16 AM [facility] CBC & DIFF Specimen Type: BLOOD Comment: Automated Differential Performed Ordering Provider: Serena ESQUIVEL Report Released Date/Time: Aug 23, 2022 10:47 AM Reporting Lab: [facility] [address] Performing Lab: [facility] [address] WBC 5.11 4.0-11.0 RBC 3.87 L 4.6-6.2 [...] 0.02 0-0.1 Aug 23, 2022 11:14 AM [facility] POC CREATININE Specimen Type: BLOOD No comment entered. Ordering Provider: LAVONNE PANCHAL Report Released Date/Time: Aug 23, 2022 11:16 AM Reporting Lab: [facility] [address] Performing Lab: [facility] [address] POC CREATININE 0.8 0.6-1.3 July 19, 2022 04:40 PM [facility] FINGERSTICK GLUCOSE Specimen Type: BLOOD Comment: Save Result Nurse Notified Ordering Provider: MACKENZIE COTTER Report Released Date/Time: July 19, 2022 05:00 PM Reporting Lab: [facility] [address] Performing Lab: [facility] [address] FINGERSTICK GLUCOSE 132 70-100 July 19, 2022 07:13 AM [facility] COMPREHENSIVE METABOLIC PANEL+MG Specimen Type: PLASMA No comment entered. Ordering Provider: MACKENZIE COTTER Report Released Date/Time: July 18, 2022 05:40 PM Reporting Lab: [facility] [address] Performing Lab: [facility] [address] CREATININE 0.9 0.7-1.2 UREA NITROGEN 24 8-26 [...] See_Commen t July 19, 2022 07:13 AM [facility] IRON GROUP Specimen Type: SERUM No comment entered. Ordering Provider: MACKENZIE COTTER Report Released Date/Time: July 18, 2022 05:40 PM Reporting Lab: [facility] [address] Performing Lab: [facility] [address] IRON 28 L 65-175 TIBC,CALCULATE D 223 L 250-425 FERRITIN 73.7 21.8-274.7 IRON SATURATION 13 L 20-50 TRANSFERRIN 178 163-382 July 19, 2022 07:13 AM [facility] CBC Specimen Type: BLOOD No comment entered. Ordering Provider: MACKENZIE COTTER Report Released Date/Time: July 18, 2022 05:40 PM Reporting Lab: [facility] [address] Performing Lab: [facility] [address] WBC 7.73 4.0-11.0 RBC 2.42 L 4.6-6.2 HGB 8.2 L 13.5-17.9 HCT 23.8 L 41-54 MCV 98.3 80-100 MCH 33.9 H 27-33 MCHC 34.5 32.0-37.5 PLT 155 150-400 MPV 9.6 7.4-10.4 RDW 13.5 11.5-14.5 July 19, 2022 05:44 AM [facility] FINGERSTICK GLUCOSE Specimen Type: BLOOD Comment: Save Result Nurse Notified Ordering Provider: MACKENZIE COTTER Report Released Date/Time: July 19, 2022 11:54 AM Reporting Lab: [facility] [address] Performing Lab: [facility] [address] FINGERSTICK GLUCOSE 137 70-100 July 18, 2022 10:51 PM [facility] FINGERSTICK GLUCOSE Specimen Type: BLOOD Comment: Save Result Nurse Notified Ordering Provider: MACKENZIE COTTER Report Released Date/Time: July 18, 2022 11:06 PM Reporting Lab: [facility] [address] Performing Lab: [facility] [address] FINGERSTICK GLUCOSE 163 70-100 July 17, 2022 06:51 AM [facility] BASIC METABOLIC PANEL+MG Specimen Type: PLASMA No comment entered. Ordering Provider: DANG VALLE R Report Released Date/Time: July 16, 2022 09:37 AM Reporting Lab: [facility] [address] Performing Lab: [facility] [address] CREATININE 0.8 0.7-1.2 UREA NITROGEN 23 8-26 GLUCOSE 107 H 70-100 SODIUM 139 136-145 POTASSIUM 3.9 3.5-5.1 CHLORIDE 106 98-107 CO2 28 22-29 CALCIUM 9.1 8.4-10.2 MAGNESIUM 1.9 1.6-2.6 ANION GAP 5 5-15 .CREAT EGFR(CKD-EPI) >90 See_Commen t July 17, 2022 06:51 AM [facility] PROTHROMBIN TIME/INR Specimen Type: PLASMA No comment entered. Ordering Provider: DANG VALLE R Report Released Date/Time: July 16, 2022 09:37 AM Reporting Lab: [facility] [address] Performing Lab: [facility] [address] .INR 1.0 0.8-1.1 .PT 11.5 9.4-12.5 July 17, 2022 06:51 AM [facility] CBC Specimen Type: BLOOD No comment entered. Ordering Provider: DANG VALLE R Report Released Date/Time: July 16, 2022 09:37 AM Reporting Lab: [facility] [address] Performing Lab: [facility] [address] WBC 6.05 4.0-11.0 RBC 3.77 L 4.6-6.2 HGB 12.7 L 13.5-17.9 HCT 36.0 L 41-54 MCV 95.5 80-100 MCH 33.7 H 27-33 MCHC 35.3 32.0-37.5 PLT 179 150-400 MPV 9.4 7.4-10.4 RDW 13.2 11.5-14.5 July 13, 2022 11:22 AM [facility] COVID-19 AND FLU/RSV DIAG PANEL(CEPHEID) Specimen Typ e: NASOPHARYNGEAL Comment: [employer] GeneXpert (618) Ordering Provider: WHITNEY ANDERSON Report Released Date/Time: July 13, 2022 11:04 AM Reporting Lab: [facility] [address] Performing Lab: [facility] [address] COVID-19 (CEPHEID) Not Detected Not Detected INFLUENZA A (PCR) Not Detected Not Detected INFLUENZA B (PCR) Not Detected Not Detected RSV (PCR) Not Detected Not Detected July 13, 2022 11:00 AM [facility] C-REACTIVE PROTEIN Specimen Type: SERUM Comment: Automated Differential Performed Ordering Provider: WHITNEY ANDERSON Report Released Date/Time: July 13, 2022 11:04 AM Reporting Lab: [facility] [address] Performing Lab: [facility] [address] C-REACTIVE PROTEIN 1.17 <5.00 July 13, 2022 11:00 AM [facility] SED RATE Specimen Type: BLOOD No comment entered. Ordering Provider: WHITNEY ANDERSON Report Released Date/Time: July 13, 2022 11:04 AM Reporting Lab: [facility] [address] Performing Lab: [facility] [address] SED RATE 10 5-15 July 13, 2022 11:00 AM [facility] PROTHROMBIN TIME/INR Specimen Type: PLASMA No comment entered. Ordering Provider: WHITNEY ANDERSON Report Released Date/Time: July 13, 2022 11:04 AM Reporting Lab: [facility] [address] Performing Lab: [facility] [address] .INR 0.9 0.8-1.1 .PT 11.1 9.4-12.5 July 13, 2022 11:00 AM [facility] CBC & DIFF Specimen Type: BLOOD Comment: Automated Differential Performed Ordering Provider: WHITNEY ANDERSON Report Released Date/Time: July 13, 2022 11:04 AM Reporting Lab: [facility] [address] Performing Lab: [facility] [address] WBC 8.82 4.0-11.0 RBC 3.89 L 4.6-6.2 [...] 0.03 0-0.1 July 13, 2022 11:00 AM [facility] COMPREHENSIVE METABOLIC PANEL+MG Specimen Type: PLASMA Comment: Automated Differential Performed Ordering Provider: WHITNEY ANDERSON Report Released Date/Time: July 13, 2022 11:04 AM Reporting Lab: [facility] [address] Performing Lab: [facility] [address] CREATININE 1.0 0.7-1.2 UREA NITROGEN 16 8-26 [...] and tobacco- related health factors from the [facility] facility where the Encounter took place. Current Smoking Status This section includes the most current smoking, or tobacco-related health factor, from the [facility] facility where the Encounter took place. Date/Time Current Smoking Status Comment Facil ity May 10, 2022 09:15 AM VA-TOBACCO FORMER USER [facility] Tobacco Use History This section includes a history of the smoking, or tobacco-related health factors, that were collected on or before the date of the Encounter. The data comes from the [facility] facility where the Encounter took place. Date/Time Smoking Status/Tobacco Use Comment F acility May 10, 2022 09:15 AM VA-TOBACCO QUIT 15 YRS OR MORE [facility] May 11, 2021 09:15 AM VA-TOBACCO FORMER USER [facility] May 11, 2021 09:15 AM VA-TOBACCO QUIT 15 YRS OR MORE [facility] Nov 22, 2018 01:36 PM VA-TOBACCO NEVER USED [facility] Nov 12, 2017 07:35 AM FORMER TOBACCO USER 7Y OR GREATE R [facility] Nov 06, 2016 09:05 AM FORMER TOBACCO USER 7Y OR GREATE R [facility] Sep 27, 2015 09:42 AM FORMER TOBACCO USER 7Y OR GREATE R [facility] Sep 25, 2014 07:55 AM FORMER TOBACCO USER 7Y OR GREATE R [facility] Sep 08, 2013 07:48 AM FORMER TOBACCO USER 7Y OR GREATE R [facility] July 09, 2012 09:20 AM FORMER TOBACCO USE >1Y <7Y [facility] Jun 06, 2011 07:53 AM FORMER TOBACCO USE >1Y <7Y [facility] Sep 09, 2009 03:03 PM FORMER TOBACCO USE >1Y <7Y [facility] Aug 11, 2008 01:06 PM FORMER TOBACCO USE <1Y [facility] Sep 19, 2007 02:52 PM CURRENT TOBACCO USER [facility] Sep 03, 2006 03:32 PM CURRENT TOBACCO USER [facility] Advance Directives: All historical and current Section Date Range: From patient's date of to the date document was created. This section includes ALL of a patient's completed or amended [facility] Advance and Rescinded Directives. The entries below indicate that a directive exists for the patient, but an actual copy is not included with this document. The data comes from all [facility]. Date Advance Directives Provider Source Mar 18, 2003 ADVANCE DIRECTIVE FARHAT MELGAR [facility] Radiology Reports: +/- 30 days of [...] the Encounter. The data comes from all [facility] treatment facilities. Date/Time Radiology Report Provider Source Aug 23, 2022 01:11 PM MRI-BRAIN (P): MARYJO WAGNER [id number] -1950 M Exm Date: AUG 23, 2022@13:11 Req Phys: Serena ESQUIVEL Loc: [facility] EMERGENCY DEPT WALK-IN (Re Img Loc: MRI IMAGING Service: Unknown (Case [id number] COMPLETE) MRI BRAINBRAINSTEM W & W/O CONTRA(MRI Detailed) CPT:63348 Contrast Media : Gadolinium Reason for Study: APHASIA X3 DAYS Clinical History: MRI BRAIN WITH/WITHOUT CONTRAST IS NOT under investigation for COVID-19 or is COVID-19 negative Did the ordering provider speak with a sap business objects consultant regarding this imaging exam? Yes, Name of sap business objects consultant (resident or staff):Neurology Aphasia x 3 days Responsible provider name and phone number to notify for critical findings if other than user placing the order and pager listed below: User placing orders pager: [phone] [id number] LAST CREATININE 0.8 (08/23/22) Allergies: HAZELNUTS (Nov 21, 2002) Report Status: Verified Date Reported: AUG 23, 2022 Date Verified: AUG 23, 2022 Customer Engineer E-Sig:/ES/TERESA SANTAMARIA MD Report: MRI BRAINBRAINSTEM W [...] in the left supratentorial compartment results in ymvd-xn-ltukk midline shift again measuring up to 1.4 [...] intracranial mass effect, with rightward subfalcine herniation (tgvo-tz-piaij midline shift measures up to 1.4 cm) [...] Primary Interpreting Staff: TERESA SANTAMARIA MD, RADIOLOGIST (Customer Engineer) /[facility] TERESA SANTAMARIA [facility] Aug 23, 2022 12:03 PM CTA CAROTID/COW (P): MARYJO WAGNER [id number] -1950 M Exm Date: AUG 23, 2022@12:03 Req Phys: Serena ESQUIVEL Pat Loc: [facility] EMERGENCY DEPT WALK-IN (Re [facility] Loc: CT IMAGING Service: Unknown (Case [id number] COMPLETE) CTA HEAD W/POSTPROCESSING (CT Detailed) CPT:04262 Contrast Media : unspecified contrast media Reason for Study: APHASIAx3 days (Case [id number] COMPLETE) CTA NECK (CT Detailed) CPT:05720 Contrast Media : unspecified contrast media Non-ionic [...] pager listed below: User placing orders pager: [phone] LAST 3: Collection DT Specimen Test Name [...] PLASMA ESTIMATED GFR(eGF >60 Ref: >=60 Allergies: ([place] only) HAZELNUTS (Nov 21, 2002) To see allergies from all [facility] locations click Reports tab>Remote Data>All Available Sites>Clinical Reports>Allergies. Report Status: Verified Date Reported: AUG 23, 2022 Date Verified: AUG 23, 2022 Customer Engineer E-Sig:/ES/TERESA SANTAMARIA MD Report: CTA HEAD W/POSTPROCESSING, [...] contribute to left cerebral white matter edema. Swxz-mi-aigyn midline shift measures up to 1.4 cm. [...] left lateral ventricle. Rightward subfalcine herniation, with jint-kr-rzwjt midline shift measuring up to 1.4 cm. [...] Primary Interpreting Staff: TERESA SANTAMARIA MD, RADIOLOGIST (Customer Engineer) /[facility] TERESA SANTAMARIA [facility] Aug 23, 2022 09:29 AM ELBOW LEFT 3 OR MORE VIEWS: BERNARDMARYJO CAVAZOS [id number] -1950 Ex Date: AUG 23, 2022@09:29 Req Phys: LEIF BALBUENA Pat Loc: [facility]O OT KENA 2F (Req'g Img Loc: MAIN X-RAY Service: Unknown (Case [id number] COMPLETE) ELBOW LEFT 3 OR MORE VIEWS (RAD Detailed) CPT:90593 Reason for Study: postop Clinical History: [place] IS NOT under investigation for COVID-19 or is COVID-19 negative postop Responsible provider name and phone number to notify for critical findings if other than user placing the order and pager listed below: User placing orders pager: [phone] LAST CREATININE 0.9 (07/19/22) Report Status: Verified Date Reported: AUG 23, 2022 Date Verified: AUG 23, 2022 Customer Engineer E-Sig:/ES/ALBINA LEE MD Report: Exam: Left elbow [...] Primary Interpreting Staff: ALBINA LEE MD, RADIOLOGIST (Customer Engineer) /ALBINA SALEH [facility] July 20, 2022 07:50 AM CHEST 1 VIEW: MARYJO WAGNER [id number] -1950 M Exm Date: JULY 20, 2022@07:50 Req Phys: VAHEMACKENZIE D Pat Loc: 07-20-2022@08:26 Img Loc: MAIN X-RAY Service: PRIMARY CARE - MED OFFICE (Case [id number] COMPLETE) CHEST 1 VIEW (RAD Detailed) CPT:77320 Proc Modifiers : PORTABLE EXAM Reason for Study: see below. thanks. Clinical History: IS NOT under investigation for COVID-19 or is COVID-19 negative Please further evaluate for acute airspace disease given o2 requirement. Thanks. Responsible provider name and phone number to notify for critical findings if other than user placing the order and pager listed below: User placing orders pager: [phone] same LAST CREATININE 0.9 (07/19/22) Report Status: Verified Date Reported: JULY 20, 2022 Date Verified: JULY 20, 2022 [employer] E-Sig:/ES/JAMIE MIGUEL MD Report: EXAM: CHEST 1 [...] pager listed below: User placing orders pager: [phone] same LAST CREATININE 0. COMPARISON: Chest CT [...] Primary Interpreting Staff: JAMIE MIGUEL MD, RADIOLOGIST (Customer Engineer) /JAMIE FRANCES [facility] July 18, 2022 12:59 PM ELBOW LEFT 2 VIEWS: MARYJO WAGNER [id number] -1950 M Exm Date: JULY 18, 2022@12:59 Req Phys: LEIF BALBUENA Loc: OR-PACU/07-18-2022@13:59 Img Loc: MAIN X-RAY Service: ZZSURGICAL SERVICE (Case [id number] COMPLETE) ELBOW LEFT 2 VIEWS (RAD Detailed) CPT:42091 Proc Modifiers : PORTABLE EXAM, OPERATING ROOM EXAM Reason for Study: post-op Clinical History: post-op Report Status: Verified Date Reported: JULY 18, 2022 Date Verified: JULY 18, 2022 Customer Engineer E-Sig:/ES/JAKUB LEE MD Report: EXAM: ELBOW LEFT [...] Primary Interpreting Staff: JAKUB LEE MD, RADIOLOGIST (Customer Engineer) /JAKUB LUCERO [facility] July 18, 2022 07:30 AM FLUORO UP TO 1 HR PHYSICIAN TIME: MARYJO WAGNER [id number] -1950 M Exm Date: JULY 18, 2022@07:30 Req Phys: LEIF BALBUENA Loc: OR-PACU/07-18-2022@13:14 Img Loc: MAIN X-RAY Service: PRIMARY CARE - MED OFFICE (Case [id number] COMPLETE) FLUORO UP TO 1 HR PHYSICIAN TIME (RAD Detailed) CPT:06367 Proc Modifiers : PORTABLE EXAM, OPERATING ROOM EXAM, LEFT Reason for Study: Left distal humerous ORIF Clinical History: OR 7 Pathologic distal humeral shaft fracture Responsible provider name and phone number to notify for critical findings if other than user placing the order and pager listed below: User placing orders pager: Henry BALBUENA [phone] LAST CREATININE 0.8 (07/17/22) Report Status: Electronically Filed Date Reported: JULY 18, 2022 Report: Impression: Please see the full report for this procedure in CPRS patient progress notes. Fluoro guidance was provided during this procedure, but the study was not reviewed or verified by a [facility] radiologist. The radiation exposure dose has been recorded in the patient's chart. If you are unable to view this data, please contact the Imaging Department. VERIFIED BY: / *ELECTRONICALLY FILED* [facility] July 17, 2022 03:28 PM ABDOMINAL AORTOGRAM (P): MARYJO WAGNER [id number] -1950 M Exm Date: JULY 17, 2022@15:28 Req Phys: MALCOM LANGLEY [facility] Loc: 07-17-2022@15:54 Img Loc: INTERVENTIONAL RADIOLOGY Service: PRIMARY CARE - MED OFFICE (Case [id number] COMPLETE) ANGIOGRAPHY EXTREMITY UNILAT S&I (ANI Detailed) CPT:99400 Reason for Study: codes (Case 528 COMPLETE) IR AORTOGRAPHY ABDOMINAL W/O RUNO(ANI Detailed) CPT:38667 (Case 529 COMPLETE) IR FOREIGN BODY REMOVAL INTRAVASC(ANI Detailed) CPT:15675 (Case 532 COMPLETE) IR NEEDLE/INTRACATH PLACEMENT EXT(ANI Detailed) CPT:12217 (Case 533 COMPLETE) IR PLACEMENT OCCLUSIVE DEVICE SAM(ANI Detailed) CPT:G0269 Clinical History: codes Report Status: Verified Date Reported: JULY 17, 2022 Date Verified: JULY 17, 2022 Customer Engineer E-Sig:/ES/MALCOM LANGLEY MD Report: RADIOLOGIST: Malcom Langley [...] angiogram and runoff. 12. Closure of right HOT FRAME TENDER with Angio-Seal device. HISTORY: Metastatic renal cell [...] Sheath removed over guidewire and a 5 ethiopian vascular sheath advanced over guidewire into the artery. An H1 catheter was advanced along with the guidewire into the thoracic arch and the left subclavian artery was selected. Catheter and the guidewire were advanced into the left brachial artery. The 5 Taiwanese sheath was exchanged for a 6 Taiwanese sheath that was advanced into the left [...] arteries. Sheath and catheters were removed and HOT FRAME TENDER arteriotomy was closed using Angioseal. There is patent hemostasis. No bleeding or hematoma noted. Sterile dressing applied. 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 Primary Interpreting Staff: MALCOM LANGLEY MD, INTERVENTIONAL RADIOLOGIST (Customer Engineer) /MALCOM HE [facility] July 17, 2022 07:30 AM RENAL ARTERY EMBOLIZATION (P): MARYJO WAGNER [id number] -1950 M Exm Date: JULY 17, 2022@07:30 Req Phys: WESTON VASQUEZ [facility] Loc: 07-17-2022@15:46 Img Loc: INTERVENTIONAL RADIOLOGY Service: PRIMARY CARE - MED OFFICE (Case 130 COMPLETE) IR TRANSCATH EMBOLIZATION W/ANGIO(ANI Detailed) CPT:80640 Reason for Study: embolization of RCC mets to left humerus (Case 131 COMPLETE) IR ARTERIAL EMBOLIZATION OTHER TH(ANI Detailed) CPT:23200 (Case 132 COMPLETE) IR US GUIDANCE VASCULAR ACCESS (ANI Detailed) CPT:77250 Clinical History: IS NOT under investigation for [...] pager listed below: User placing orders pager: [phone] LAST CREATININE 1.0 (07/13/22) Report Status: Verified Date Reported: JULY 17, 2022 Date Verified: JULY 17, 2022 Customer Engineer E-Sig:/ES/MALCOM LANGLEY MD Report: RADIOLOGIST: Malcom Langley [...] angiogram and runoff. 12. Closure of right HOT FRAME TENDER with Angio-Seal device. HISTORY: Metastatic renal cell [...] Sheath removed over guidewire and a 5 ethiopian vascular sheath advanced over guidewire into the artery. An H1 catheter was advanced along with the guidewire into the thoracic arch and the left subclavian artery was selected. Catheter and the guidewire were advanced into the left brachial artery. The 5 Taiwanese sheath was exchanged for a 6 Taiwanese sheath that was advanced into the left [...] arteries. Sheath and catheters were removed and HOT FRAME TENDER arteriotomy was closed using Angioseal. There is patent hemostasis. No bleeding or hematoma noted. Sterile dressing applied. 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 Primary Interpreting Staff: MALCOM LANGLEY MD, INTERVENTIONAL RADIOLOGIST (Customer Engineer) /MALCOM HE [facility] July 14, 2022 06:44 AM HUMERUS LEFT MINIMUM 2 VIEWS: MARYJO WAGNER DIRK [id number] -1950 M Exm Date: JULY 14, 2022@06:44 Req Phys: WESTON VASQUEZ Loc: 07-14-2022@07:13 Img Loc: MAIN X-RAY Service: PRIMARY CARE - MED OFFICE (Case [id number] COMPLETE) HUMERUS LEFT MINIMUM 2 VIEWS (RAD Detailed) CPT:00177 Reason for Study: post reduction Clinical History: Report Status: Verified Date Reported: JULY 14, 2022 Date Verified: JULY 14, 2022 Customer Engineer E-Sig: Report: HUMERUS LEFT MINIMUM 2 VIEWS HISTORY: post reduction COMPARISON: 07/13/2022 TECHNIQUE: 2 view(s) of the humerus, submitted to the [place] [facility] (NTP) for interpretation. FINDINGS: [...] less likely. READING PHYSICIAN: Xavier Merrill MD -[phone] 07/14/2022 5:11 PDT [facility] National Teleradiology Program [phone] (For Medical Practitioner Use Only) Attention Patients / Veterans: If you have questions or concerns about these test results, please contact your ordering provider or primary care team. Primary Interpreting Staff: RADIOLOGY,OUTSIDE SERVICE, Staff Physician / RADIOLOGY,OUTSIDE SERVICE [facility] July 13, 2022 10:07 AM HUMERUS LEFT MINIMUM 2 VIEWS: CARSONLELIAMARYJO CAVAZOS [id number] -1950 M Exm Date: JULY 13, 2022@10:07 Req Phys: WHITNEY ANDERSON Pat Loc: [facility] EMERGENCY DEPT WALK-IN (Re Img Loc: MAIN X-RAY Service: Unknown (Case [id number] COMPLETE) HUMERUS LEFT MINIMUM 2 VIEWS (RAD Detailed) CPT:03091 Proc Modifiers : LEFT Reason for Study: [...] pager listed below: User placing orders pager: [phone] LAST CREATININE 0.8 (05/10/22) Report Status: Verified Date Reported: JULY 13, 2022 Date Verified: JULY 13, 2022 Customer Engineer E-Sig:/ES/ALBINA COWAN MD, FACR, CCD Report: EXAMINATION: [...] Staff: ALBINA COWAN MD, FACR, STAFF RADIOLOGIST (Customer Engineer) /BSF ALBINA COWAN [facility] July 13, 2022 10:07 AM ELBOW LEFT 3 OR MORE VIEWS: MARYJO WAGNER [id number] -1950 M Exm Date: JULY 13, 2022@10:07 Req Phys: WHITNEY ANDERSON Pat Loc: [facility] EMERGENCY DEPT WALK-IN (Re Img Loc: MAIN X-RAY Service: Unknown (Case [id number] COMPLETE) ELBOW LEFT 3 OR MORE VIEWS (RAD Detailed) CPT:00900 Proc Modifiers : LEFT Reason for Study: [...] pager listed below: User placing orders pager: [phone] LAST CREATININE 0.8 (05/10/22) Report Status: Verified Date Reported: JULY 13, 2022 Date Verified: JULY 13, 2022 Customer Engineer E-Sig:/ES/ALBINA COWAN MD, FACR, CCD Report: EXAMINATION: [...] Staff: ALBINA COWAN MD, FACR, STAFF RADIOLOGIST (Customer Engineer) /ALBINA NATHAN [facility] July 13, 2022 10:07 AM FOREARM LEFT 2 VIEWS: MARYJO WAGNER [id number] -1950 M Exm Date: JULY 13, 2022@10:07 Req Phys: WHITNEY ANDERSON Pat Loc: [facility] EMERGENCY DEPT WALK-IN (Re Img Loc: MAIN X-RAY Service: Unknown (Case [id number] COMPLETE) FOREARM LEFT 2 VIEWS (RAD Detailed) CPT:99460 Proc Modifiers : LEFT Reason for Study: L arm pain Clinical History: [place] IS NOT under investigation for COVID-19 or is COVID-19 negative Atraumatic left upper extremity pain that is located midshaft humerus distally to the mid forearm. Clinical concern for dislocation versus fracture versus bone mets Responsible provider name and phone number to notify for critical findings if other than user placing the order and pager listed below: User placing orders pager: [phone] LAST CREATININE 0.8 (05/10/22) Report Status: Verified Date Reported: JULY 13, 2022 Date Verified: JULY 13, 2022 Customer Engineer E-Sig:/ES/ALBINA COWAN MD, FACR, CCD Report: EXAMINATION: [...] Staff: ALBINA COWAN MD, FACR, STAFF RADIOLOGIST (Customer Engineer) /ALBINA NATHAN [facility] Pathology Reports: +/- 30 days of [...] the Encounter. The data comes from all [place] treatment facilities. Date/Time Pathology Report Provider Source July 13, 2022 04:06 PM LR SURGICAL PATHOL OGY REPORT: LOCAL TITLE: LR SURGICAL PATHOLOGY REPORT STANDARD TITLE: PATHOLOGY REPORT DATE OF NOTE: JULY 21, 2022@14:37:27 ENTRY DATE: JULY 21, 2022@14:37:27 AUTHOR: JIAN SANDOVAL EXP COSIGNER: URGENCY: STATUS: COMPLETED $APHDR Reporting Lab: [facility] [CLIA# [id number]] [place] [address] - - - - - - - [...] - - - PATHOLOGY REPORT Accession No. [id number] - - - - - [...] labeled left humerus mets. Submitted are multiple pendleton-caly to pink-clay soft tissue fragments measuring 3.5 x 3.5 x 2.0 cm in aggregate. The tissue is entirely submitted in A-D. CE. (D). [facility] SE[facility] DIAGNOSES: SPEC. 1 - [...] SANDOVAL STAFF PATHOLOGIST, PATHOLOGY & LABORATORY [facility] Signed July 21, 2022@14:37 Performing Laboratory: Surgical Pathology Report Performed By: [facility] [CLIA# [id number]] [place] [address] $FTR - - - - - - [...] - - MARYJO WAGNER STANDARD FORM 515 ID:[id number] SEX:M :1950 AGE: 72 LOC:[facility] PATHOLOGY PRO FEE ADM:June DX:PATHOLOGIC FX LF HUMERUS PCP: Leif Balbuena MD /sangita/ JIAN SANDOVAL STAFF PATHOLOGIST, PATHOLOGY & LABORATORY [facility] Signed: 07/21/2022 14:37 JIAN SANDOVAL [facility]
--- OUTSIDE RECORDS SUMMARY | 2023-03-24 08:30 | XMS_ITS | Encounter Summary ---
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 of Vetera [facility] Address [address] [place] [id number] Support Name Relationship Address Phone DOREEN WAGNER Next of Kin [address] [place] [id number] DOREEN Emergency Contact [address] [place] [id number] Insurance Providers: All historical and current [...] Policy [place] HUMANA MCR (WNR) MEDICARE ADVANTAGE [facility] (R) June 26, 2016 [id number] CARSONJOAN ROWELL PATIENT HUMANA MCR (WNR) MEDICARE ADVANTAGE [facility] (WNR) June 26, 2016 [id number] [phone] JOAN WAGNER KARSTEN PATIENT HUMANA MCR (WNR) MEDICARE ADVANTAGE [facility] (WNR) June 26, 2016 [id number] [phone] JOAN WAGNER PATIENT Selected Encounter This section includes the information on record at [place] for the Encounter. Date/Time Encounter Type Encounter Description Reason Pro vider Source Aug 15, 2022 12:00 PM Outpatient Encounter DENTAL IHE Encounter Template Text not used by [place] Plan of Treatment: Future Appointments (+ 6 months) and Future Tests (+/- 45 days) The Plan of Treatment section includes future care activities for the patient from all [place] treatmentfacilities. This section includes future appointments and future orders which are active, pending or scheduled. Future Appointments This section includes appointments that were scheduled to occur 6 months from the date of the Encounter, up to a maximum of 20 appointments. The data comes from all [facility]. Appointment Date/Time Appointment Type Appointme nt Facility Name Aug 23, 2022 09:30 AM AMBULATORY - SURGERY [facility] Aug 23, 2022 09:45 AM AMBULATORY - NONE [facility] Aug 23, 2022 10:30 AM AMBULATORY - MEDICINE [facility] Aug 23, 2022 10:31 AM AMBULATORY - MEDICINE [facility] Sep 06, 2022 10:15 AM AMBULATORY - SURGERY [facility] Oct 25, 2022 07:00 AM AMBULATORY - NONE [facility] Oct 25, 2022 07:30 AM AMBULATORY - SURGERY [facility] Oct 25, 2022 09:00 AM AMBULATORY SURGERY [facility] Active, Pending, and Scheduled Orders This section includes a listing of several types of active, pending, and scheduled orders, including clinic medications orders, diagnostic test orders, procedure orders and consult orders; where the start date of the order is 45 days before the date of the Encounter or 45 days after the date of theEncounter. The data comes from all [facility]. Test Date/Time Test Type Test Details Facility Name July 14, 2022 12:00 AM Laboratory - Blood Bank Order ABO/RH - LAB BLOOD [facility] July 14, 2022 02:05 PM Laboratory - Blood Bank Order TYPE & SCREEN - LAB BLOOD [facility] Aug 07, 2022 11:23 AM Laboratory - Chemi stry Order DRUG SCREEN PANEL,URINE URINE [facility] Aug 23, 2022 10:47 AM Laboratory - Chemi stry Order URINALYSIS URINE ER STAT [facility] Lab Results: +/- 30 days of the encounter This section includes the Chemistry and Hematology Lab Results on record with [place] for the patient. Radiology Reports and Pathology Reports are provided separately, in subsequent sections. Lab Results This section contains the Chemistry/Hematology Results that were resulted 30 days before or 30 daysafter the date of the Encounter. Date/Time Source Result Type Result - Unit Interpretation Reference Range Comment Aug 24, 2022 12:15 PM [facility] URINALYSIS Specimen Type: URINE No comment entered. Ordering Provider: LUCIO KIM Report Released Date/Time: Aug 24, 2022 09:34 AM Reporting Lab: [facility] [address] Performing Lab: [facility] [address] URINE COLOR YELLOW SPECIFIC GRAVITY 1.030 1.003-1.03 [...] See_Commen t Aug 23, 2022 11:16 AM [facility] PROTHROMBIN TIME/INR Specimen Type: PLASMA No comment entered. Ordering Provider: Serena ESQUIVEL Report Released Date/Time: Aug 23, 2022 10:47 AM Aug 23, 2022 11:16 AM [facility] ACT PART THROMBO TIME Specimen Type: PLASMA No comment entered. Ordering Provider: Serena ESQUIVEL Report Released Date/Time: Aug 23, 2022 10:47 AM Reporting Lab: [facility] [address] Performing Lab: [facility] [address] APTT 30.2 25.1-36.5 Aug 23, 2022 11:16 AM [facility] LIPID PANEL,NON-FASTING Specimen Type: PLASMA No comment entered. Ordering Provider: Serena ESQUIVEL Report Released Date/Time: Aug 23, 2022 10:47 AM Reporting Lab: [facility] [address] Performing Lab: [facility] [address] CHOLESTEROL 129 See_Comm en t .HDL 36 L See_Commen t LDL CALCULATION 68 See_ Commen t VLDL CALCULATION 25 See_Commen t NON HDL CHOLESTEROL 93 See_Commen t TRIG(NON FASTING) 123 See_Commen t Aug 23, 2022 11:16 AM [facility] TSH W/REFLEX TO FREE T4 Specimen Type: PLASMA No comment entered. Ordering Provider: Serena ESQUIVEL Report Released Date/Time: Aug 23, 2022 10:47 AM Reporting Lab: [facility] [address] Performing Lab: [facility] [address] TSH 1.54 0.35-4.94 Aug 23, 2022 11:16 AM [facility] CARDIAC TROPONIN I Specimen Type: PLASMA No comment entered. Ordering Provider: Serena ESQUIVEL Report Released Date/Time: Aug 23, 2022 10:47 AM Reporting Lab: [facility] [address] Performing Lab: [facility] [address] CARDIAC TROPONIN I <0.028 See_Commen t Aug 23, 2022 11:16 AM [facility] SED RATE Specimen Type: BLOOD No comment entered. Ordering Provider: Serena ESQUIVEL Report Released Date/Time: Aug 23, 2022 10:47 AM Reporting Lab: [facility] [address] Performing Lab: [facility] [address] SED RATE 31 H 5-15 Aug 23, 2022 11:16 AM [facility] C-REACTIVE PROTEIN Specimen Type: SERUM No comment entered. Ordering Provider: Serena ESQUIVEL Report Released Date/Time: Aug 23, 2022 10:47 AM Reporting Lab: [facility] [address] Performing Lab: [facility] [address] C-REACTIVE PROTEIN 3.14 See_Commen t Aug 23, 2022 11:16 AM [facility] PHOSPHORUS Specimen Type: PLASMA No comment entered. Ordering Provider: Serena ESQUIVEL Report Released Date/Time: Aug 23, 2022 10:47 AM Reporting Lab: [facility] [address] Performing Lab: [facility] [address] PHOSPHORUS 3.9 2.3-4.7 Aug 23, 2022 11:16 AM [facility] HEMOGLOBIN A1C Specimen Type: BLOOD Comment: Values [...] Aug 23, 2022 10:47 AM Reporting Lab: [facility] [address] Performing Lab: [facility] [address] HEMOGLOBIN A1C 4.2 4.0-6.0 Aug 23, 2022 11:16 AM [facility] COMPREHENSIVE METABOLIC PANEL+MG Specimen Type: PLASMA No comment entered. Ordering Provider: Serena ESQUIVEL Report Released Date/Time: Aug 23, 2022 10:47 AM Reporting Lab: [facility] [address] Performing Lab: [facility] [address] CREATININE 0.8 0.7-1.2 UREA NITROGEN 15 8-26 [...] See_Commen t Aug 23, 2022 11:16 AM [facility] CBC & DIFF Specimen Type: BLOOD Comment: Automated Differential Performed Ordering Provider: Serena ESQUIVEL Report Released Date/Time: Aug 23, 2022 10:47 AM Reporting Lab: [facility] [address] Performing Lab: [facility] [address] WBC 5.11 4.0-11.0 RBC 3.87 L 4.6-6.2 [...] 0.02 0-0.1 Aug 23, 2022 11:14 AM [facility] POC CREATININE Specimen Type: BLOOD No comment entered. Ordering Provider: LAVONNE PANCHAL Report Released Date/Time: Aug 23, 2022 11:16 AM Reporting Lab: [facility] [address] Performing Lab: [facility] [address] POC CREATININE 0.8 0.6-1.3 July 19, 2022 04:40 PM [facility] FINGERSTICK GLUCOSE Specimen Type: BLOOD Comment: Save Result Nurse Notified Ordering Provider: RENETTA COTTER Report Released Date/Time: July 19, 2022 05:00 PM Reporting Lab: [facility] [address] Performing Lab: [facility] [address] FINGERSTICK GLUCOSE 132 70-100 July 19, 2022 07:13 AM [facility] COMPREHENSIVE METABOLIC PANEL+MG Specimen Type: PLASMA No comment entered. Ordering Provider: RENETTA COTTER Report Released Date/Time: July 18, 2022 05:40 PM Reporting Lab: [facility] [address] Performing Lab: [facility] [address] CREATININE 0.9 0.7-1.2 UREA NITROGEN 24 8-26 [...] See_Commen t July 19, 2022 07:13 AM [facility] IRON GROUP Specimen Type: SERUM No comment entered. Ordering Provider: RENETTA COTTER Report Released Date/Time: July 18, 2022 05:40 PM Reporting Lab: [facility] [address] Performing Lab: [facility] [address] IRON 28 L 65-175 TIBC,CALCULATED 223 L 250-425 FERRITIN 73.7 21.8-274.7 IRON SATURATION 13 L 20-50 TRANSFERRIN 178 163-382 July 19, 2022 07:13 AM [facility] CBC Specimen Type: BLOOD No comment entered. Ordering Provider: RENETTA COTTER Report Released Date/Time: July 18, 2022 05:40 PM Reporting Lab: [facility] [address] Performing Lab: [facility] [address] WBC 7.73 4.0-11.0 RBC 2.42 L 4.6-6.2 HGB 8.2 L 13.5-17.9 HCT 23.8 L 41-54 MCV 98.3 80-100 MCH 33.9 H 27-33 MCHC 34.5 32.0-37.5 PLT 155 150-400 MPV 9.6 7.4-10.4 RDW 13.5 11.5-14.5 July 19, 2022 05:44 AM [facility] FINGERSTICK GLUCOSE Specimen Type: BLOOD Comment: Save Result Nurse Notified Ordering Provider: RENETTA COTTER Report Released Date/Time: July 19, 2022 11:54 AM Reporting Lab: [facility] [address] Performing Lab: [facility] [address] FINGERSTICK GLUCOSE 137 70-100 July 18, 2022 10:51 PM [facility] FINGERSTICK GLUCOSE Specimen Type: BLOOD Comment: Save Result Nurse Notified Ordering Provider: RENETTA COTTER Report Released Date/Time: July 18, 2022 11:06 PM Reporting Lab: [facility] [address] Performing Lab: [facility] [address] FINGERSTICK GLUCOSE 163 70-100 July 17, 2022 06:51 AM [facility] BASIC METABOLIC PANEL+MG Specimen Type: PLASMA No comment entered. Ordering Provider: TEO VALLE Report Released Date/Time: July 16, 2022 09:37 AM Reporting Lab: [facility] [address] Performing Lab: [facility] [address] CREATININE 0.8 0.7-1.2 UREA NITROGEN 23 8-26 GLUCOSE 107 H 70-100 SODIUM 139 136-145 POTASSIUM 3.9 3.5-5.1 CHLORIDE 106 98-107 CO2 28 22-29 CALCIUM 9.1 8.4-10.2 MAGNESIUM 1.9 1.6-2.6 ANION GAP 5 5-15 .CREAT EGFR(CKD-EPI) >90 See_Commen t July 17, 2022 06:51 AM [facility] PROTHROMBIN TIME/INR Specimen Type: PLASMA No comment entered. Ordering Provider: TEO VALLE Report Released Date/Time: July 16, 2022 09:37 AM Reporting Lab: [facility] [address] Performing Lab: [facility] [address] .INR 1.0 0.8-1.1 .PT 11.5 9.4-12.5 July 17, 2022 06:51 AM [facility] CBC Specimen Type: BLOOD No comment entered. Ordering Provider: TEO VALLE Report Released Date/Time: July 16, 2022 09:37 AM Reporting Lab: [facility] [address] Performing Lab: [facility] [address] WBC 6.05 4.0-11.0 RBC 3.77 L 4.6-6.2 HGB 12.7 L 13.5-17.9 HCT 36.0 L 41-54 MCV 95.5 80-100 MCH 33.7 H 27-33 MCHC 35.3 32.0-37.5 PLT 179 150-400 MPV 9.4 7.4-10.4 RDW 13.2 11.5-14.5 Social History: Smoking Status (Most current) and Tobacco Use (All prior to encounter date) This section includes the most current, and the historical, smoking and tobacco- related health factors from the [place] facility where the Encounter took place. Current Smoking Status This section includes the most current smoking, or tobacco-related health factor, from the [place] facility where the Encounter took place. Date/Time Current Smoking Status Comment Facil ity May 10, 2022 09:15 AM VA-TOBACCO FORMER USER [facility] Tobacco Use History This section includes a history of the smoking, or tobacco-related health factors, that were collected on or before the date of the Encounter. The data comes from the [place] facility where the Encounter took place. Date/Time Smoking Status/Tobacco Use Comment F acility May 10, 2022 09:15 AM VA-TOBACCO QUIT 15 YRS OR MORE [facility] May 11, 2021 09:15 AM VA-TOBACCO FORMER USER [facility] May 11, 2021 09:15 AM VA-TOBACCO QUIT 15 YRS OR MORE [facility] Nov 22, 2018 01:36 PM VA-TOBACCO NEVER USED [facility] Nov 12, 2017 07:35 AM FORMER TOBACCO USER 7Y OR GREATE R [facility] Nov 06, 2016 09:05 AM FORMER TOBACCO USER 7Y OR GREATE R [facility] Sep 27, 2015 09:42 AM FORMER TOBACCO USER 7Y OR GREATE R [facility] Sep 25, 2014 07:55 AM FORMER TOBACCO USER 7Y OR GREATE R [facility] Sep 08, 2013 07:48 AM FORMER TOBACCO USER 7Y OR GREATE R [facility] July 09, 2012 09:20 AM FORMER TOBACCO USE >1Y <7Y [facility] Jun 06, 2011 07:53 AM FORMER TOBACCO USE >1Y <7Y [facility] Sep 09, 2009 03:03 PM FORMER TOBACCO USE >1Y <7Y [facility] Aug 11, 2008 01:06 PM FORMER TOBACCO USE <1Y [facility] Sep 19, 2007 02:52 PM CURRENT TOBACCO USER [facility] Sep 03, 2006 03:32 PM CURRENT TOBACCO USER [facility] Advance Directives: All historical and current Section Date Range: From patient's date of to the date document was created. This section includes ALL of a patient's completed or amended [place] Advance and Rescinded Directives. The entries below indicate that a directive exists for the patient, but an actual copy is not included with this document. The data comes from all [facility]. Date Advance Directives Provider Source Mar 18, 2003 ADVANCE DIRECTIVE MELGARFARHAT [facility]O [facility] Radiology Reports: +/- 30 days of [...] the Encounter. The data comes from all [place] treatment facilities. Date/Time Radiology Report Provider Source Aug 23, 2022 01:11 PM MRI-BRAIN (P): MARYOJ WAGNER [id number] -1950 M Ex Date: AUG 23, 2022@13:11 Req Phys: Serena ESQUIVEL Loc: [facility] EMERGENCY DEPT WALK-IN (Re Img Loc: MRI IMAGING Service: Unknown (Case [id number] COMPLETE) MRI BRAINBRAINSTEM W & W/O CONTRA(MRI Detailed) CPT:45053 Contrast Media : Gadolinium Reason for Study: APHASIA X3 DAYS Clinical History: MRI BRAIN WITH/WITHOUT CONTRAST IS NOT under investigation for COVID-19 or is COVID-19 negative Did the ordering provider speak with a career consultant regarding this imaging exam? Yes, Name of career consultant (resident or staff):Neurology Aphasia x 3 days Responsible provider name and phone number to notify for critical findings if other than user placing the order and pager listed below: User placing orders pager: [phone] [id number] LAST CREATININE 0.8 (08/23/22) Allergies: HAZELNUTS (Nov 21, 2002) Report Status: Verified Date Reported: AUG 23, 2022 Date Verified: AUG 23, 2022 Butter Liquefier E-Sig:/ES/TERESA SANTAMARIA MD Report: MRI BRAINBRAINSTEM W [...] in the left supratentorial compartment results in cxnt-jj-rsuyx midline shift again measuring up to 1.4 [...] intracranial mass effect, with rightward subfalcine herniation (ncbt-gw-kueau midline shift measures up to 1.4 cm) [...] Primary Interpreting Staff: TERESA SANTAMARIA MD, RADIOLOGIST (Butter Liquefier) /[facility] TERESA SANTAMARIA [facility] Aug 23, 2022 12:03 PM CTA CAROTID/COW (P ): MARYJO WAGNER [id number] -1950 M Exm Date: AUG 23, 2022@12:03 Req Phys: Serena ESQUIVEL Loc: [facility] EMERGENCY DEPT WALK-IN (Re Im Loc: CT IMAGING Service: Unknown (Case [id number] COMPLETE) CTA HEAD W/POSTPROCESSING (CT Detailed) CPT:51736 Contrast Media : unspecified contrast media Reason for Study: APHASIAx3 days (Case 1532 COMPLETE) CTA NECK (CT Detailed) CPT:42856 Contrast Media : unspecified contrast media Non-ionic [...] pager listed below: User placing orders pager: [phone] [id number] LAST 3: Collection DT Specimen Test Name [...] PLASMA ESTIMATED GFR(eGF >60 Ref: >=60 Allergies: (Harts only) HAZELNUTS (Nov 21, 2002) To see allergies from all [place] locations click Reports tab>Remote Data>All Available Sites>Clinical Reports>Allergies. Report Status: Verified Date Reported: AUG 23, 2022 Date Verified: AUG 23, 2022 Butter Liquefier E-Sig:/ES/TERESA SANTAMARIA MD Report: CTA HEAD W/POSTPROCESSING, [...] contribute to left cerebral white matter edema. Dnth-ba-otuzu midline shift measures up to 1.4 cm. [...] left lateral ventricle. Rightward subfalcine herniation, with gmcj-es-kqiyl midline shift measuring up to 1.4 cm. [...] Primary Interpreting Staff: TERESA SANTAMARIA MD, RADIOLOGIST (Butter Liquefier) /[facility] TERESA SANTAMARIA [facility] Aug 23, 2022 09:29 AM ELBOW LEFT 3 OR MO RE VIEWS: MARYJO WAGNER [id number] -1950 M Exm Date: AUG 23, 2022@09:29 Req Phys: LEIF BALBUENA Loc: [facility] 2F (Req'g Img Loc: MAIN X-RAY Service: Unknown (Case [id number] COMPLETE) ELBOW LEFT 3 OR MORE VIEWS (RAD Detailed) CPT:23521 Reason for Study: postop Clinical History: [place] IS NOT under investigation for COVID-19 or is COVID-19 negative postop Responsible provider name and phone number to notify for critical findings if other than user placing the order and pager listed below: User placing orders pager: [phone] LAST CREATININE 0.9 (07/19/22) Report Status: Verified Date Reported: AUG 23, 2022 Date Verified: AUG 23, 2022 Butter Liquefier E-Sig:/ES/ALBINA LEE MD Report: Exam: Left elbow [...] Primary Interpreting Staff: ALBINA LEE MD, RADIOLOGIST (Butter Liquefier) /ALBINA SALEH [facility] July 20, 2022 07:50 AM CHEST 1 VIEW: MARYJO WAGNER [id number] -1950 M Exm Date: JULY 20, 2022@07:50 Req Phys: MACKENZIE COTTER D Pat Loc: 07-20-2022@08:26 Img Loc: MAIN X-RAY Service: PRIMARY CARE - MED OFFICE (Case [id number] COMPLETE) CHEST 1 VIEW (RAD Detailed) CPT:74749 Proc Modifiers : PORTABLE EXAM Reason for Study: see below. thanks. Clinical History: [place] IS NOT under investigation for COVID-19 or is COVID-19 negative Please further evaluate for acute airspace disease given o2 requirement. Thanks. Responsible provider name and phone number to notify for critical findings if other than user placing the order and pager listed below: User placing orders pager: [phone] same LAST CREATININE 0.9 (07/19/22) Report Status: Verified Date Reported: JULY 20, 2022 Date Verified: JULY 20, 2022 Butter Liquefier E-Sig:/ES/JAMIE MIGUEL MD Report: EXAM: CHEST 1 [...] pager listed below: User placing orders pager: [phone] same LAST CREATININE 0. COMPARISON: Chest CT [...] Primary Interpreting Staff: JAMIE MIGUEL MD, RADIOLOGIST (Butter Liquefier) /JAMIE FRANCES [facility] July 18, 2022 12:59 PM ELBOW LEFT 2 VIEWS : MARYJO WAGNER [id number] -1950 M Exm Date: JULY 18, 2022@12:59 Req Phys: LEIF BALBUENA Pat Loc: OR-PACU/07-18-2022@13:59 Img Loc: MAIN X-RAY Service: [facility]ZSURGICAL SERVICE (Case [id number] COMPLETE) ELBOW LEFT 2 VIEWS (RAD Detailed) CPT:20806 Proc Modifiers : PORTABLE EXAM, OPERATING ROOM EXAM Reason for Study: post-op Clinical History: post-op Report Status: Verified Date Reported: JULY 18, 2022 Date Verified: JULY 18, 2022 Butter Liquefier E-Sig:/ES/JAKUB LEE MD Report: EXAM: ELBOW LEFT [...] Primary Interpreting Staff: JAKUB LEE MD, RADIOLOGIST (Butter Liquefier) /[facility] JAKUB LEE [facility] July 18, 2022 07:30 AM FLUORO UP TO 1 HR PHYSICIAN TIME: MARYJO WAGNER [id number] -1950 M Exm Date: JULY 18, 2022@07:30 Req Phys: LEIF BALBUENA Loc: OR-PACU/07-18-2022@13:14 Img Loc: MAIN X-RAY Service: PRIMARY CARE - MED OFFICE (Case [id number] COMPLETE) FLUORO UP TO 1 HR PHYSICIAN TIME (RAD Detailed) CPT:44845 Proc Modifiers : PORTABLE EXAM, OPERATING ROOM EXAM, LEFT Reason for Study: Left distal humerous ORIF Clinical History: OR 7 Pathologic distal humeral shaft fracture Responsible provider name and phone number to notify for critical findings if other than user placing the order and pager listed below: User placing orders pager: Henry BALBUENA [phone] LAST CREATININE 0.8 (07/17/22) Report Status: Electronically Filed Date Reported: JULY 18, 2022 Report: Impression: Please see the full report for this procedure in CPRS patient progress notes. Fluoro guidance was provided during this procedure, but the study was not reviewed or verified by a [facility] radiologist. The radiation exposure dose has been recorded in the patient's chart. If you are unable to view this data, please contact the Imaging Department. VERIFIED BY: / *ELECTRONICALLY FILED* [facility] July 17, 2022 03:28 PM ABDOMINAL AORTOGRA M (P): BERNARDMARYJO [id number] -1950 M Exm Date: JULY 17, 2022@15:28 Req Phys: MALCOM LANGLEY Loc: 07-17-2022@15:54 Img Loc: INTERVENTIONAL RADIOLOGY Service: PRIMARY CARE - MED OFFICE (Case 527 COMPLETE) ANGIOGRAPHY EXTREMITY UNILAT S&I (ANI Detailed) CPT:76995 Reason for Study: codes (Case 528 COMPLETE) IR AORTOGRAPHY ABDOMINAL W/O RUNO(ANI Detailed) CPT:89525 (Case 529 COMPLETE) IR FOREIGN BODY REMOVAL INTRAVASC(ANI Detailed) CPT:03199 (Case 532 COMPLETE) IR NEEDLE/INTRACATH PLACEMENT EXT(ANI Detailed) CPT:51917 (Case 533 COMPLETE) IR PLACEMENT OCCLUSIVE DEVICE SAM(ANI Detailed) CPT:G0269 Clinical History: codes Report Status: Verified Date Reported: JULY 17, 2022 Date Verified: JULY 17, 2022 Butter Liquefier E-Sig:/ES/MALCOM LANGLEY MD Report: RADIOLOGIST: Malcom Langley [...] angiogram and runoff. 12. Closure of right OUTPATIENT PHYSICAL THERAPIST ASSISTANT with Angio-Seal device. HISTORY: Metastatic renal cell [...] Sheath removed over guidewire and a 5 wolof vascular sheath advanced over guidewire into the [...] arteries. Sheath and catheters were removed and OUTPATIENT PHYSICAL THERAPIST ASSISTANT arteriotomy was closed using Angioseal. There is patent hemostasis. No bleeding or hematoma noted. Sterile dressing applied. 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 Primary Interpreting Staff: MALCOM LANGLEY MD, INTERVENTIONAL RADIOLOGIST (Butter Liquefier) /MALCOM HE [facility] July 17, 2022 07:30 AM RENAL ARTERY EMBOL IZATION (P): MARYJO WAGNER [id number] -1950 M Exm Date: JULY 17, 2022@07:30 Req Phys: WESTON VASQUEZ Pat Loc: 07-17-2022@15:46 Img Loc: INTERVENTIONAL RADIOLOGY Service: PRIMARY CARE - MED OFFICE (Case 130 COMPLETE) IR TRANSCATH EMBOLIZATION W/ANGIO(ANI Detailed) CPT:12846 Reason for Study: embolization of RCC mets to left humerus (Case 131 COMPLETE) IR ARTERIAL EMBOLIZATION OTHER TH(ANI Detailed) CPT:73857 (Case 132 COMPLETE) IR US GUIDANCE VASCULAR ACCESS (ANI Detailed) CPT:91375 Clinical History: IS NOT under investigation for [...] pager listed below: User placing orders pager: [phone] LAST CREATININE 1.0 (07/13/22) Report Status: Verified Date Reported: JULY 17, 2022 Date Verified: JULY 17, 2022 Butter Liquefier E-Sig:/ES/MALCOM LANGLEY MD Report: RADIOLOGIST: Malcom Langley [...] angiogram and runoff. 12. Closure of right OUTPATIENT PHYSICAL THERAPIST ASSISTANT with Angio-Seal device. HISTORY: Metastatic renal cell [...] Sheath removed over guidewire and a 5 wolof vascular sheath advanced over guidewire into the [...] arteries. Sheath and catheters were removed and OUTPATIENT PHYSICAL THERAPIST ASSISTANT arteriotomy was closed using Angioseal. There is patent hemostasis. No bleeding or hematoma noted. Sterile dressing applied. 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 Primary Interpreting Staff: MALCOM LANGLEY MD, INTERVENTIONAL RADIOLOGIST (Butter Liquefier) /MALCOM HE [facility] Pathology Reports: +/- 30 days of the [...] the Encounter. The data comes from all [place] treatment facilities. Date/Time Pathology Report Provider Source July 13, 2022 04:06 PM LR SURGICAL PATHOL OGY REPORT: LOCAL TITLE: LR SURGICAL PATHOLOGY REPORT STANDARD TITLE: PATHOLOGY REPORT DATE OF NOTE: JULY 21, 2022@14:37:27 ENTRY DATE: JULY 21, 2022@14:37:27 AUTHOR: JIAN SANDOVAL EXP COSIGNER: URGENCY: STATUS: COMPLETED $APHDR Reporting Lab: [facility] [CLIA# [id number]] [place] [address] - - - - - - - [...] - - - PATHOLOGY REPORT Accession No. [id number] - - - - - [...] is entirely submitted in A-D. CE. (D). [facility] FROZEN SECTION DIAGNOSES: SPEC. 1 - [...] STAFF PATHOLOGIST, PATHOLOGY & LABORATORY [facility] Signed July 21, 2022@14:37 Performing Laboratory: Surgical Pathology Report Performed By: [facility] [CLIA# [id number]] [place] [address] $FTR - - - - - - [...] - - MARYJO WAGNER STANDARD FORM 515 ID:[id number] SEX:M :1950 AGE: 72 LOC:[facility] PATHOLOGY PRO FEE ADM:June DX:PATHOLOGIC FX LF HUMERUS PCP: Leif Balbuena MD /sangita/ JIAN SANDOVAL STAFF PATHOLOGIST, PATHOLOGY & LABORATORY [facility] Signed: 07/21/2022 14:37 JIAN SANDOVAL [facility] Encounter Notes: All associated encounter notes This section contains the clinical notes associated to the Encounter. Date/Time Encounter Note(s) Provider Source Aug 15, 2022 12:00 PM REPORT OF CONTACT: LOCAL TITLE: PATIENT CONTACT NOTE STANDARD TITLE: REPORT OF CONTACT DATE OF NOTE: AUG 15, 2022@12:00 ENTRY DATE: AUG 15, 2022@12:00:33 AUTHOR: SOHAN JOHNSON EXP COSIGNER: URGENCY: STATUS: COMPLETED PATIENT CONTACT NOTE Has ADDENDA Patient contact Name of [place]: MARYJO WAGNER Name/Relationship of Contact if other than [place]: Date & Time of Contact: Jul@12:00 Type of Contact: Telephone Reason for Contact: [place] called [facility] CC requesting to schedule a dental appointment via Message [facility]. Fan Balancer returned call. states my other implant is done and I need a cap. Provider please advise and/or place scheduling order and thank you. Last Name: BERNARD First Name: MARYJO CONDE Last Four: 1030 Date of : Reason: Appointment Comment: Hello- called to schedule his dental appointment. Thank you Return Call: Yes Best Time: Any /sangita/ SOHAN JOHNSON ADVANCED MSA Signed: 08/15/2022 12:01 Receipt Acknowledged By: 08/16/2022 15:42 /sangita/ MAGO SCHWARZ DDS STAFF DENTIST 08/16/2022 ADDENDUM STATUS: COMPLETED Orders placed for pt to return. I am ordering the parts. Please do not schedule prior to 3 weeks. 60 min apt. /sangita/ MAGO SCHWARZ DDS STAFF DENTIST Signed: 08/16/2022 15:48 Receipt Acknowledged By: * AWAITING SIGNATURE * SOHAN JOHNSON KAREN M [facility]
--- OUTSIDE RECORDS SUMMARY | 2023-03-24 08:30 | XMS_ITS | Encounter Summary ---
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 [employer] Address [address] [place] [address] Support Name Relationship Address Phone DOREEN WAGNER Next of Kin [address] [place] [phone] DOREEN Emergency Contact [address] [place] [phone] Insurance Providers: All historical and current [...] [facility] June 26, 2016 [id number] JOAN WAGNER KARSTEN PATIENT [employer] (WNR) MEDICARE ADVANTAGE [facility] (WNR) June 26, 2016 [id number] JOAN WAGNER KARSTEN PATIENT [employer] (WNR) MEDICARE ADVANTAGE [facility] (WNR) June 26, 2016 [id number] JOAN WAGNER PATIENT Selected Encounter This section includes the information on record at [place] for the Encounter. Date/Time Encounter Type Encounter Description Reason Pro vider Source Aug 23, 2022 10:30 AM Outpatient Encounter PRIMARY CARE/MEDICINE E Encounter Template Text not used by [place] Plan of Treatment: Future Appointments (+ 6 months) and Future Tests (+/- 45 days) The Plan of Treatment section includes future care activities for the patient from all [place] treatmentfacilities. This section includes future appointments and future orders which are active, pending or scheduled. Future Appointments This section includes appointments that were scheduled to occur 6 months from the date of the Encounter, up to a maximum of 20 appointments. The data comes from all [facility]. Appointment Date/Time Appointment Type Appointme nt Facility Name Sep 06, 2022 10:15 AM AMBULATORY - SURGERY [facility] Oct 25, 2022 07:00 AM AMBULATORY - NONE [facility] Oct 25, 2022 07:30 AM AMBULATORY - SURGERY [facility] Oct 25, 2022 09:00 AM AMBULATORY - SURGERY [facility] Active, Pending, and Scheduled Orders This section includes a listing of several types of active, pending, and scheduled orders, including clinic medications orders, diagnostic test orders, procedure orders and consult orders; where the start date of the order is 45 days before the date of the Encounter or 45 days after the date of theEncounter. The data comes from all [facility]. Test Date/Time Test Type Test Details Facility Name July 14, 2022 12:00 AM Laboratory - Blood Bank Order ABO/RH - LAB BLOOD [facility] July 14, 2022 02:05 PM Laboratory - Blood Bank Order TYPE & SCREEN - LAB BLOOD [facility] Aug 07, 2022 11:23 AM Laboratory - Chemi stry Order DRUG SCREEN PANEL,URINE URINE [facility] Aug 23, 2022 10:47 AM Laboratory - Chemi stry Order URINALYSIS URINE ER STAT [facility] Lab Results: +/- 30 days of the encounter This section includes the Chemistry and Hematology Lab Results on record with [place] for the patient. Radiology Reports and Pathology Reports are provided separately, in subsequent sections. Lab Results This section contains the Chemistry/Hematology Results that were resulted 30 days before or 30 daysafter the date of the Encounter. Date/Time Source Result Type Result - Unit Interpretation Reference Range Comment Aug 24, 2022 12:15 PM [facility] URINALYSIS Specimen Type: URINE No comment entered. Ordering Provider: LUCIO KIM Report Released Date/Time: Aug 24, 2022 09:34 AM Reporting Lab: [facility] [id number] Performing Lab: [facility] [phone] URINE COLOR YELLOW SPECIFIC GRAVITY 1.030 1.003-1.03 [...] Aug 23, 2022 11:16 AM [facility] PROTHROMBIN TIME/INR Specimen Type: PLASMA No comment entered. Ordering Provider: Serena ESQUIVEL Report Released Date/Time: Aug 23, 2022 10:47 AM Aug 23, 2022 11:16 AM [facility] ACT PART THROMBO TIME Specimen Type: PLASMA No comment entered. Ordering Provider: Serena ESQUIVEL Report Released Date/Time: Aug 23, 2022 10:47 AM Reporting Lab: [facility] [phone] Performing Lab: [facility] [address] APTT 30.2 25.1-36.5 Aug 23, 2022 11:16 AM [facility] LIPID PANEL,NON-FASTING Specimen Type: PLASMA No comment entered. Ordering Provider: Serena ESQUIVEL Report Released Date/Time: Aug 23, 2022 10:47 AM Reporting Lab: [facility] [address] Performing Lab: [facility] [address] CHOLESTEROL 129 See_Comm en t .HDL 36 L See_Commen t LDL CALCULATION 68 See_ Commen t VLDL CALCULATION 25 See_Commen t NON HDL CHOLESTEROL 93 See_Commen t TRIG(NON FASTING) 123 See_Commen t Aug 23, 2022 11:16 AM [facility] TSH W/REFLEX TO FREE T4 Specimen Type: PLASMA No comment entered. Ordering Provider: Serena ESQUIVEL Report Released Date/Time: Aug 23, 2022 10:47 AM Reporting Lab: [facility] [address] Performing Lab: [facility] [address] TSH 1.54 0.35-4.94 Aug 23, 2022 11:16 AM [facility] SED RATE Specimen Type: BLOOD No comment entered. Ordering Provider: Serena ESQUIVEL Report Released Date/Time: Aug 23, 2022 10:47 AM Reporting Lab: [facility] [address] Performing Lab: [facility] [address] SED RATE 31 H 5-15 Aug 23, 2022 11:16 AM [facility] CARDIAC TROPONIN I Specimen Type: PLASMA No comment entered. Ordering Provider: Serena ESQUIVEL Report Released Date/Time: Aug 23, 2022 10:47 AM Reporting Lab: [facility] [address] Performing Lab: [facility] [address] CARDIAC TROPONIN I <0.028 See_Commen t Aug 23, 2022 11:16 AM [facility] C-REACTIVE PROTEIN Specimen Type: SERUM No comment entered. Ordering Provider: Serena ESQUIVEL Report Released Date/Time: Aug 23, 2022 10:47 AM Reporting Lab: [facility] [address] Performing Lab: [facility] [address] C-REACTIVE PROTEIN 3.14 See_Commen t Aug 23, 2022 11:16 AM [facility] PHOSPHORUS Specimen Type: PLASMA No comment entered. Ordering Provider: Serena ESQUIVEL Report Released Date/Time: Aug 23, 2022 10:47 AM Reporting Lab: [facility] [address] Performing Lab: [facility] [address] PHOSPHORUS 3.9 2.3-4.7 Aug 23, 2022 11:16 AM [facility] COMPREHENSIVE METABOLIC PANEL+MG Specimen Type: PLASMA No comment entered. Ordering Provider: Serena ESQUIVEL Report Released Date/Time: Aug 23, 2022 10:47 AM Reporting Lab: [facility] [address] Performing Lab: [facility] [address] CREATININE 0.8 0.7-1.2 UREA NITROGEN 15 8-26 [...] Aug 23, 2022 11:16 AM [facility] HEMOGLOBIN A1C Specimen Type: BLOOD Comment: Values [...] 23, 2022 10:47 AM Reporting Lab: [facility] [address] Performing Lab: [facility] [address] HEMOGLOBIN A1C 4.2 4.0-6.0 Aug 23, 2022 11:16 AM [facility] CBC & DIFF Specimen Type: BLOOD Comment: Automated Differential Performed Ordering Provider: Serena ESQUIVEL Report Released Date/Time: Aug 23, 2022 10:47 AM Reporting Lab: [facility] [address] Performing Lab: [facility] [address] WBC 5.11 4.0-11.0 RBC 3.87 L 4.6-6.2 [...] Aug 23, 2022 11:14 AM [facility] POC CREATININE Specimen Type: BLOOD No comment entered. Ordering Provider: LAVONNE PANCHAL Report Released Date/Time: Aug 23, 2022 11:16 AM Reporting Lab: [facility] [address] Performing Lab: [facility] [address] POC CREATININE 0.8 0.6-1.3 Vital Signs: All taken on the encounter date This section contains inpatient and outpatient Vital Signs collected on the date of the Encounter. Date/Time Temperature Pulse Blood Pressure Respiratory Rate SP02 Pain Height Weight Body Mass Index Source Aug 23, 2022 10:34 AM 98.2 F 63 /min 128/72 mm[Hg] 94 % [facility] Social History: Smoking Status (Most current) and Tobacco Use (All prior to encounter date) This section includes the most current, and the historical, smoking and tobacco- related health factors from the [place] facility where the Encounter took place. Current Smoking Status This section includes the most current smoking, or tobacco-related health factor, from the [place] facility where the Encounter took place. Date/Time Current Smoking Status Comment Facil ity May 10, 2022 09:15 AM VA-TOBACCO FORMER USER [facility] Tobacco Use History This section includes a history of the smoking, or tobacco-related health factors, that were collected on or before the date of the Encounter. The data comes from the [place] facility where the Encounter took place. Date/Time Smoking Status/Tobacco Use Comment F acility May 10, 2022 09:15 AM VA-TOBACCO QUIT 15 YRS OR MORE [facility] May 11, 2021 09:15 AM VA-TOBACCO FORMER USER [facility] May 11, 2021 09:15 AM VA-TOBACCO QUIT 15 YRS OR MORE [facility] Nov 22, 2018 01:36 PM VA-TOBACCO NEVER USED [facility] Nov 12, 2017 07:35 AM FORMER TOBACCO USER 7Y OR GREATE R [facility] Nov 06, 2016 09:05 AM FORMER TOBACCO USER 7Y OR GREATE R [facility] Sep 27, 2015 09:42 AM FORMER TOBACCO USER 7Y OR GREATE R [facility] Sep 25, 2014 07:55 AM FORMER TOBACCO USER 7Y OR GREATE R [facility] Sep 08, 2013 07:48 AM FORMER TOBACCO USER 7Y OR GREATE R [facility] July 09, 2012 09:20 AM FORMER TOBACCO USE >1Y <7Y [facility] Jun 06, 2011 07:53 AM FORMER TOBACCO USE >1Y <7Y [facility] Sep 09, 2009 03:03 PM FORMER TOBACCO USE >1Y <7Y [facility] Aug 11, 2008 01:06 PM FORMER TOBACCO USE <1Y [facility] Sep 19, 2007 02:52 PM CURRENT TOBACCO USER [facility] Sep 03, 2006 03:32 PM CURRENT TOBACCO USER [facility] Advance Directives: All historical and current Section Date Range: From patient's date of to the date document was created. This section includes ALL of a patient's completed or amended [place] Advance and Rescinded Directives. The entries below indicate that a directive exists for the patient, but an actual copy is not included with this document. The data comes from all [facility]. Date Advance Directives Provider Source Mar 18, 2003 ADVANCE DIRECTIVE FARHAT MELGAR [facility] Radiology Reports: +/- 30 days of the [...] the Encounter. The data comes from all [place] treatment facilities. Date/Time Radiology Report Provider Source Aug 23, 2022 01:11 PM MRI-BRAIN (P): MARYJO WAGNER [id number] -1950 M Ex Date: AUG 23, 2022@13:11 Req Phys: Serena ESQUIVEL Pat Loc: [facility] EMERGENCY DEPT WALK-IN (Re Img Loc: MRI IMAGING Service: Unknown (Case [id number] COMPLETE) MRI BRAINBRAINSTEM W & W/O CONTRA(MRI Detailed) CPT:95287 Contrast Media : Gadolinium Reason for Study: APHASIA X3 DAYS Clinical History: MRI BRAIN WITH/WITHOUT CONTRAST [place] IS NOT under investigation for COVID-19 or is COVID-19 negative Did the ordering provider speak with a wealth management consultant regarding this imaging exam? Yes, Name of wealth management consultant (resident or staff):Neurology Aphasia x 3 days Responsible provider name and phone number to notify for critical findings if other than user placing the order and pager listed below: User placing orders pager: [phone] [id number] LAST CREATININE 0.8 (08/23/22) Allergies: HAZELNUTS (Nov 21, 2002) Report Status: Verified Date Reported: AUG 23, 2022 Date Verified: AUG 23, 2022 Steel Die Printer E-Sig:/ES/TERESA SANTAMARIA MD Report: MRI BRAINBRAINSTEM W [...] in the left supratentorial compartment results in wrvl-xs-yclqe midline shift again measuring up to 1.4 [...] intracranial mass effect, with rightward subfalcine herniation (mpvl-ju-kzdyy midline shift measures up to 1.4 cm) [...] Primary Interpreting Staff: TERESA SANTAMARIA MD, RADIOLOGIST (Steel Die Printer) /[facility] TERESA SANTAMARIA [facility] Aug 23, 2022 12:03 PM CTA CAROTID/COW (P ): BERNARDMARYJO CAVAZOS [id number] -1950 M Ex Date: AUG 23, 2022@12:03 Req Phys: Serena ESQUIVEL Pat Loc: [facility] EMERGENCY DEPT WALK-IN ([facility] Loc: CT IMAGING Service: Unknown (Case [id number] COMPLETE) CTA HEAD W/POSTPROCESSING (CT Detailed) CPT:79948 Contrast Media : unspecified contrast media Reason for Study: APHASIAx3 days (Case [id number] COMPLETE) CTA NECK (CT Detailed) CPT:78188 Contrast Media : unspecified contrast media Non-ionic Iodinated Clinical History: HEAD/NECK CTA [place] IS NOT under investigation for COVID-19 or is COVID-19 negative Defer to radiologist for final CT protocol. Please enter pertinent clinical history on the next page. Responsible provider name and phone number to notify for critical findings if other than user placing the order and pager listed below: User placing orders pager: [phone] [id number] LAST 3: Collection DT Specimen Test Name [...] PLASMA ESTIMATED GFR(eGF >60 Ref: >=60 Allergies: ([place] only) HAZELNUTS (Nov 21, 2002) To see allergies from all VA locations click Reports tab>Remote Data>All Available Sites>Clinical Reports>Allergies. Report Status: Verified Date Reported: AUG 23, 2022 Date Verified: AUG 23, 2022 Steel Die Printer E-Sig:/ES/TERESA SANTAMARIA MD Report: CTA HEAD W/POSTPROCESSING, [...] contribute to left cerebral white matter edema. Qfgl-cg-vetei midline shift measures up to 1.4 cm. [...] left lateral ventricle. Rightward subfalcine herniation, with vprg-nq-edxzc midline shift measuring up to 1.4 cm. [...] Primary Interpreting Staff: TERESA SANTAMARIA MD, RADIOLOGIST (Steel Die Printer) /[facility] TERESA SANTAMARIA [facility] Aug 23, 2022 09:29 AM ELBOW LEFT 3 OR MO RE VIEWS: MARYJO WAGNER [id number] -1950 Ex Date: AUG 23, 2022@09:29 Req Phys: LEIF PANDA Pat Loc: [facility] 2F (Req'g Img Loc: MAIN X-RAY Service: Unknown (Case [id number] COMPLETE) ELBOW LEFT 3 OR MORE VIEWS (RAD Detailed) CPT:98159 Reason for Study: postop Clinical History: [place] IS NOT under investigation for COVID-19 or is COVID-19 negative postop Responsible provider name and phone number to notify for critical findings if other than user placing the order and pager listed below: User placing orders pager: [phone] LAST CREATININE 0.9 (07/19/22) Report Status: Verified Date Reported: AUG 23, 2022 Date Verified: AUG 23, 2022 Steel Die Printer E-Sig:/ES/ALBINA LEE MD Report: Exam: Left elbow [...] Primary Interpreting Staff: ALBINA LEE MD, RADIOLOGIST (Steel Die Printer) /ALBINA SALEH [facility] Encounter Notes: All associated encounter notes This section contains the clinical notes associated to the Encounter. Date/Time Encounter Note(s) Provider Source Aug 22, 2022 02:25 PM ADMINISTRATIVE NOT E: LOCAL TITLE: PRE VISIT SUMMARY NOTE STANDARD TITLE: ADMINISTRATIVE NOTE DICT DATE: AUG 22, 2022@14:25:47 ENTRY DATE: AUG 22, 2022@14:25:47 DICTATED BY: BERNADETTE PASCUAL EXP COSIGNER: URGENCY: STATUS: COMPLETED INCLUDED IN THIS LIST: Alphabetical list of active outpatient prescriptions dispensed from this [place] (local) and dispensed from another VA or DoD facility (remote) as well as inpatient orders (local pending and active), local clinic medications, locally documented non-VA medications, and local prescriptions that have or been discontinued in the past 90 days. NOTE The display of VA prescriptions dispensed from another VA or DoD facility (remote) is limited to active outpatient prescription entries matched to National Drug File at the originating site and may not include some items such as investigational drugs, compounds, etc. MEDICATIONS Acetaminophen 325mg Tab TAKE TWO TABLETS BY MOUTH EVERY 6 HOURS NEEDED FOR PAIN Indication: FOR PAIN Rx #: [id number] Pharmacy: [facility] Ordering Provider: BRISSA LEYVA Status: Quantity: 100 for 13 days Refills Remainin Expires: Aug 20, 2022 Last Filled: July 21, 2022 Aspirin 81mg Ec Tab TAKE TWO TABLETS BY MOUTH EVERY DAY TO PREVENT BLOOD CLOTS TAKE UNTIL TOLD OKAY TO DISCONTINUE BY ORTHOPEDICS Indication: TO PREVENT BLOOD CLOTS Rx #: [id number] Pharmacy: [facility] Ordering Provider: BRISSA LEYVA Status: ACTIVE Quantity: 120 for 60 days Refills Remainin Expires: Sep 19, 2022 Last Filled: July 21, 2022 Hydromorphone Inj,Soln Give: 0.5MG/0.5ML IV ONCE \For Pain Indication: FOR PAIN Status: Quantity: 0 for 0 days Refills Remainin Last Filled: Requested on but not yet released. Hydromorphone Inj,Soln Give: 0.5MG IV ONCE \For Pain Indication: FOR PAIN Status: Quantity: 0 for 0 days Refills Remainin Last Filled: Requested on but not yet released. Hydromorphone Inj,Soln Give: 1MG/1ML SQ ONCE \For Pain Indication: FOR PAIN Status: Quantity: 0 for 0 days Refills Remainin Last Filled: Requested on but not yet released. Lisinopril 20mg Tab TAKE ONE TABLET BY MOUTH EVERY DAY FOR BLOOD PRESSURE Rx #: [id number] Pharmacy: [facility] Ordering Provider: RACHAEL GONZALEZ Status: ACTIVE Quantity: 90 for 90 days Refills Remainin Expires: Feb 09, 2023 Last Filled: Feb 08, 2022 Lubricating Top Jelly Bacteriostatic APPLY JELLY TOPICALLY DIRECTED Rx #: [id number] Pharmacy: [facility] Ordering Provider: POLLY RIGGS Status: ACTIVE Quantity: 120 for 30 days Refills Remainin Expires: Sep 23, 2022 Last Filled: Sep 25, 2021 Naloxone Hcl 4mg/[place] Soln Nasal [place] SPRAY 1 DOSE IN ONE NOSTRIL NEEDED FOR UNRESPONSIVENESS THEN CALL 911 Indication: FOR UNRESPONSIVENESS THEN CALL 911 Rx #: [id number] Pharmacy: [facility] Ordering Provider: JUANY WYNN Status: ACTIVE Quantity: 2 for 90 days Refills Remainin Expires: Oct 30, 2022 Last Filled: Aug 03, 2022 Oxycodone 5mg Tab TAKE ONE TABLET BY MOUTH THREE TIMES A DAY NEEDED FOR PAIN Indication: FOR PAIN Rx #: [id number] Pharmacy: [facility] Ordering Provider: JUANY WYNN Status: ACTIVE Quantity: 56 for 19 days Refills Remainin Expires: Aug 31, 2022 Last Filled: Aug 01, 2022 Oxycodone 5mg Tab TAKE ONE TABLET BY MOUTH Q6 NEEDED FOR PAIN Indication: FOR PAIN Rx #: [id number] Pharmacy: [facility] Ordering Provider: BRISSA LEYVA Status: DISCONTINUED Quantity: 35 for 7 days Refills Remainin Expires: Aug 20, 2022 Discontinued: Aug 01, 2022 Last Filled: July 21, 2022 Polyethylene Glycol 3350 Oral Pwdr TAKE 17 GRAMS BY MOUTH EVERY DAY NEEDED FOR CONSTIPATION Indication: FOR CONSTIPATION Rx #: [id number] Pharmacy: [facility] Ordering Provider: BRISSA LEVYA Status: Quantity: 238 for 15 days Refills Remainin Expires: Aug 20, 2022 Last Filled: July 21, 2022 Pregabalin 25mg Oral Cap TAKE ONE CAPSULE BY MOUTH THREE TIMES A DAY FOR PAIN TAPER PAIN IMPROVES Indication: FOR PAIN Rx #: [id number] Pharmacy: [facility] Ordering Provider: BRISSA LEYVA Status: Quantity: 90 for 30 days Refills Remainin Expires: Aug 20, 2022 Last Filled: July 21, 2022 Sodium Fluoride 1.1% Toothpaste USE SMALL AMOUNT MOUTH EVERY MORNING AND AT BEDTIME ON TOOTHBRUSH, BRUSH FOR 2 MINUTES Rx #: [id number] Pharmacy: [facility] Ordering Provider: MAGO SCHWARZ Status: Quantity: 100 for 60 days Refills Remainin Expires: July 08, 2022 Last Filled: July 09, 2021 Aspirin Tab Sig: TAKE 81MG BY MOUTH EVERY DAY Comment: Non-VA medication that patient takes on their own. Documenting Facility & Provider: [facility]; [place] Chondroitin Cap/Tab Sig: TAKE 1 TABLET TWICE A DAY Comment: Non-VA medication not recommended by VA provider. Documenting Facility & Provider: [facility]; IOANA LORENZO Glucosamine Cap/Tab Sig: TAKE 1 TABLET TWICE A DAY Comment: Non-VA medication not recommended by VA provider. Documenting Facility & Provider: [facility]; [facility] LORENZO Multivitamins Tab Sig: TAKE 1 TABLET BY MOUTH EVERY DAY Comment: Non-VA medication not recommended by VA provider. Documenting Facility & Provider: [facility]; [facility] L[facility]EN[facility] Non-VA Meds Last Documented On: Mar 21, 2010 FOR NURSING USE ONLY: [] BRAND ADVISOR review of medications completed completed: printed list is correct: PUT THIS SHEET IN RED DOG. [] BRAND ADVISOR review of medications completed: corrections made below: PUT THIS SHEET IN RED DOG [] BRAND ADVISOR review of medications not completed: GIVE THIS SHEET TO PATIENT TO REVIEW END OF NURSING USE SECTION SCANNED DOCUMENT SIGNATURE NOT REQUIRED Electronically Filed: 08/22/2022 by: BERNADETTE BROWNE [facility]
--- OUTSIDE RECORDS SUMMARY | 2023-03-24 08:31 | XMS_ITS | Encounter Summary ---
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 Address [address] [place] [address] Support Name Relationship Address Phone DOREEN WAGNER Next of Kin [address] [place] [phone] DOREEN Emergency Contact [address] [place] [phone] Insurance Providers: All historical and current [...] Policy [place] [employer] M[employer] (WNR) MEDICARE ADVANTAGE [facility] (WNR) June 26, 2016 [id number] BERNARDJOAN SHELLEY PATIENT [employer] M[employer] (WNR) MEDICARE ADVANTAGE [facility] (WNR) June 26, 2016 [id number] [phone] JOAN WAGNER KARSTEN PATIENT [employer] M[employer] (WNR) MEDICARE ADVANTAGE [facility] (WNR) June 26, 2016 [id number] JOAN WAGNER KARSTEN PATIENT Selected Encounter This section includes the information on record at [place] for the Encounter. Date/Time Encounter Type Encounter Description Reason Pro vider Source Aug 23, 2022 10:10 AM Outpatient Encounter EMERGENCY DEPT IHE Encounter Template Text not used by [place] Plan of Treatment: Future Appointments (+ 6 [...] 06, 2022 10:15 AM AMBULATORY - SURGERY [facility] Oct 25, 2022 07:00 AM [facility] Oct 25, 2022 07:30 AM AMBULATORY - SURGERY [facility] Oct 25, 2022 09:00 AM AMBULATORY - SURGERY [facility] Active, Pending, and Scheduled Orders [...] Blood Bank Order ABO/RH - LAB BLOOD [facility] July 14, 2022 02:05 PM Laboratory - Blood Bank Order TYPE & SCREEN - LAB BLOOD [facility] Aug 07, 2022 11:23 AM Laboratory - Chemi stry Order DRUG SCREEN PANEL,URINE URINE ONCE [facility] Aug 23, 2022 10:47 AM Laboratory - Chemi stry Order URINALYSIS URINE ER STAT [facility] Lab Results: +/- 30 days of the encounter This section includes the Chemistry and Hematology Lab Results on record with [place] for the patient. Radiology Reports and Pathology Reports are provided separately, in subsequent sections. Lab Results This section contains the Chemistry/Hematology Results that were resulted 30 days before or 30 daysafter the date of the Encounter. Date/Time Source Result Type Result - Unit Interpretation Reference Range Comment Aug 24, 2022 12:[address] [facility] URINALYSIS Specimen Type: URINE No comment entered. Ordering Provider: LUCIO KIM Report Released Date/Time: Aug 24, 2022 09:34 AM Reporting Lab: [facility] [id number] Performing Lab: [facility] [id number] URINE COLOR YELLOW SPECIFIC GRAVITY 1.030 1.003-1.03 [...] See_Commen t Aug 23, 2022 11:[address] [facility] PROTHROMBIN TIME/INR Specimen Type: PLASMA No comment entered. Ordering Provider: Serena ESQUIVEL Report Released Date/Time: Aug 23, 2022 10:47 AM Aug 23, 2022 11:[address] [facility] ACT PART THROMBO TIME Specimen Type: PLASMA No comment entered. Ordering Provider: Serena ESQUIVEL Report Released Date/Time: Aug 23, 2022 10:47 AM Reporting Lab: [facility] [phone] Performing Lab: [facility] [phone] APTT 30.2 25.1-36.5 Aug 23, 2022 11:[address] [facility] LIPID PANEL,NON-FASTING Specimen Type: PLASMA No comment entered. Ordering Provider: Serena ESQUIVEL Report Released Date/Time: Aug 23, 2022 10:47 AM Reporting Lab: [facility] [phone] Performing Lab: [facility] [address] CHOLESTEROL 129 See_Comm en t .HDL 36 L See_Commen t LDL CALCULATION 68 See_ Commen t VLDL CALCULATION 25 See_Commen t NON HDL CHOLESTEROL 93 See_Commen t TRIG(NON FASTING) 123 See_Commen t Aug 23, 2022 11:[address] [facility] TSH W/REFLEX TO FREE T4 Specimen Type: PLASMA No comment entered. Ordering Provider: Serean ESQUIVEL Report Released Date/Time: Aug 23, 2022 10:47 AM Reporting Lab: [facility] [phone] Performing Lab: [facility] [address] TSH 1.54 0.35-4.94 Aug 23, 2022 11:[address] [facility] SED RATE Specimen Type: BLOOD No comment entered. Ordering Provider: Serena ESQUIVEL Report Released Date/Time: Aug 23, 2022 10:47 AM Reporting Lab: [facility] [phone] Performing Lab: [facility] [phone] SED RATE 31 H 5-15 Aug 23, 2022 11:[address] [facility] CARDIAC TROPONIN I Specimen Type: PLASMA No comment entered. Ordering Provider: Serena ESQUIVEL Report Released Date/Time: Aug 23, 2022 10:47 AM Reporting Lab: [facility] [phone] Performing Lab: [facility] [address] CARDIAC TROPONIN I <0.028 See_Commen t Aug 23, 2022 11:[address] [facility] C-REACTIVE PROTEIN Specimen Type: SERUM No comment entered. Ordering Provider: Serena ESQUIVEL Report Released Date/Time: Aug 23, 2022 10:47 AM Reporting Lab: [facility] [phone] Performing Lab: [facility] [phone] C-REACTIVE PROTEIN 3.14 See_Commen t Aug 23, 2022 11:[address] [facility] PHOSPHORUS Specimen Type: PLASMA No comment entered. Ordering Provider: Serena ESQUIVEL Report Released Date/Time: Aug 23, 2022 10:47 AM Reporting Lab: [facility] [phone] Performing Lab: [facility] [address] PHOSPHORUS 3.9 2.3-4.7 Aug 23, 2022 11:[address] [facility] COMPREHENSIVE METABOLIC PANEL+MG Specimen Type: PLASMA No comment entered. Ordering Provider: Serena ESQUIVEL Report Released Date/Time: Aug 23, 2022 10:47 AM Reporting Lab: [facility] [phone] Performing Lab: [facility] [address] CREATININE 0.8 0.7-1.2 UREA NITROGEN 15 8-26 [...] See_Commen t Aug 23, 2022 11:[address] [facility] HEMOGLOBIN A1C Specimen Type: BLOOD Comment: [...] Aug 23, 2022 10:47 AM Reporting Lab: [facility] [phone] Performing Lab: [facility] [phone] HEMOGLOBIN A1C 4.2 4.0-6.0 Aug 23, 2022 11:[address] [facility] CBC & DIFF Specimen Type: BLOOD Comment: Automated Differential Performed Ordering Provider: Serena ESQUIVEL Report Released Date/Time: Aug 23, 2022 10:47 AM Reporting Lab: [facility] [phone] Performing Lab: [facility] [phone] WBC 5.11 4.0-11.0 RBC 3.87 L 4.6-6.2 [...] 0.02 0-0.1 Aug 23, 2022 11:[address] [facility] POC CREATININE Specimen Type: BLOOD No comment entered. Ordering Provider: LAVONNE PANCHAL Report Released Date/Time: Aug 23, 2022 11:16 AM Reporting Lab: [facility] [phone] Performing Lab: [facility] [phone] POC CREATININE 0.8 0.6-1.3 Vital Signs: All taken on the encounter date This section contains inpatient and outpatient Vital Signs collected on the date of the Encounter. Date/Time Temperature Pulse Blood Pressure Respiratory Rate SP02 Pain Height Weight Body Mass Index Source Aug 23, 2022 10:34 AM 98.2 F 63 /min 128/72 mm[Hg] 94 % [place] [facility] Social History: Smoking Status (Most current) and Tobacco Use (All prior to encounter date) This section includes the most current, and the historical, smoking and tobacco- related health factors from the [place] facility where the Encounter took place. Current Smoking Status This section includes the most current smoking, or tobacco-related health factor, from the [place] facility where the Encounter took place. Date/Time Current Smoking Status Comment Facil ity May 10, 2022 09:15 AM VA-TOBACCO FORMER USER [facility] Tobacco Use History This section includes a history of the smoking, or tobacco-related health factors, that were collected on or before the date of the Encounter. The data comes from the [place] facility where the Encounter took place. Date/Time Smoking Status/Tobacco Use Comment F acility May 10, 2022 09:15 AM VA-TOBACCO QUIT [address] [facility] May 11, 2021 09:15 AM VA-TOBACCO FORMER USER [facility] May 11, 2021 09:15 AM VA-TOBACCO QUIT [address] [facility] Nov 22, 2018 01:36 PM VA-TOBACCO NEVER USED [facility] Nov 12, 2017 07:35 AM FORMER TOBACCO USER 7Y OR GREATE R [facility] Nov 06, 2016 09:05 AM FORMER TOBACCO USER 7Y OR GREATE R [facility] Sep 27, 2015 09:42 AM FORMER TOBACCO USER 7Y OR GREATE R [facility] Sep 25, 2014 07:55 AM FORMER TOBACCO USER 7Y OR GREATE R [facility] Sep 08, 2013 07:48 AM FORMER TOBACCO USER 7Y OR GREATE R [facility] July 09, 2012 09:20 AM FORMER TOBACCO USE >1Y <7Y [facility] Jun 06, 2011 07:53 AM FORMER TOBACCO USE >1Y <7Y [facility] Sep 09, 2009 03:03 PM FORMER TOBACCO USE >1Y <7Y [facility] Aug 11, 2008 01:06 PM FORMER TOBACCO USE <1Y [facility] Sep 19, 2007 02:[address]ACCO USER [facility] Sep 03, 2006 03:32 [address]BACCO USER [facility] Advance Directives: All historical and current Section Date Range: From patient's date of to the date document was created. This section includes ALL of a patient's completed or amended [place] Advance and Rescinded Directives. The entries below indicate that a directive exists for the patient, but an actual copy is not included with this document. The data comes from all [facility]. Date Advance Directives Provider Source Mar 18, 2003 ADVANCE DIRECTIVE FARHAT MELGAR [facility] Radiology Reports: +/- 30 days of [...] the Encounter. The data comes from all [place] treatment facilities. Date/Time Radiology Report Provider Source Aug 23, 2022 01:11 PM MRI-BRAIN (P): MARYJO WAGNER [id number] -[id number] M Ex Date: AUG 23, 2022@13:11 Req Phys: Serena ESQUIVEL Pat Loc: [facility] EMERGENCY DEPT WALK-IN (Re Img Loc: MRI IMAGING Service: Unknown (Case [id number] COMPLETE) MRI BRAINBRAINSTEM W & W/O CONTRA(MRI Detailed) CPT:99754 Contrast Media : Gadolinium Reason for Study: APHASIA X3 DAYS Clinical History: MRI BRAIN WITH/WITHOUT CONTRAST IS NOT under investigation for COVID-19 or is COVID-19 negative Did the ordering provider speak with a implementation consultant regarding this imaging exam? Yes, Name of implementation consultant (resident or staff):Neurology Aphasia x 3 days Responsible provider name and phone number to notify for critical findings if other than user placing the order and pager listed below: User placing orders pager: [phone] LAST CREATININE 0.8 (08/23/22) Allergies: HAZELNUTS (Nov 21, 2002) Report Status: Verified Date Reported: AUG 23, 2022 Date Verified: AUG 23, 2022 Facilities Management Executive E-Sig:/ES/TERESA SANTAMARIA MD Report: MRI BRAINBRAINSTEM W [...] in the left supratentorial compartment results in wayj-ar-vcvij midline shift again measuring up to 1.4 [...] intracranial mass effect, with rightward subfalcine herniation (xrys-ei-ayzqk midline shift measures up to 1.4 cm) [...] Primary Interpreting Staff: TERESA SANTAMARIA MD, RADIOLOGIST (Facilities Management Executive) /[facility] TERESA SANTAMARIA [facility] Aug 23, 2022 12:03 PM CTA CAROTID/COW (P ): MARYJO WAGNER [id number] -[id number] M Ex Date: AUG 23, 2022@12:03 Req Phys: Serena ESQUIVEL Pat Loc: [facility] EMERGENCY DEPT WALK-IN (Re Im Loc: CT IMAGING Service: Unknown (Case [id number] COMPLETE) CTA HEAD W/POSTPROCESSING (CT Detailed) CPT:40467 Contrast Media : unspecified contrast media Reason for Study: APHASIAx3 days (Case [id number] COMPLETE) CTA NECK (CT Detailed) CPT:83102 Contrast Media : unspecified contrast media Non-ionic Iodinated Clinical History: HEAD/NECK CTA [place] IS NOT under investigation for COVID-19 or is COVID-19 negative Defer to radiologist for final CT protocol. Please enter pertinent clinical history on the next page. Responsible provider name and phone number to notify for critical findings if other than user placing the order and pager listed below: User placing orders pager: [phone] LAST 3: Collection DT Specimen Test Name [...] PLASMA ESTIMATED GFR(eGF >60 Ref: >=60 Allergies: ([place] only) HAZELNUTS (Nov 21, 2002) To see allergies from all [facility] locations click Reports tab>Remote Data>All Available Sites>Clinical Reports>Allergies. Report Status: Verified Date Reported: AUG 23, 2022 Date Verified: AUG 23, 2022 Facilities Management Executive E-Sig:/ES/TERESA SANTAMARIA MD Report: CTA HEAD W/POSTPROCESSING, [...] contribute to left cerebral white matter edema. Wmno-ah-hpwll midline shift measures up to 1.4 cm. [...] left lateral ventricle. Rightward subfalcine herniation, with wbyx-in-ptkgs midline shift measuring up to 1.4 cm. [...] Primary Interpreting Staff: TERESA SANTAMARIA MD, RADIOLOGIST (Facilities Management Executive) /[facility] TERESA SANTAMARIA [facility] Aug 23, 2022 09:29 AM ELBOW LEFT 3 OR MO RE VIEWS: BERNARDMARYJO [id number] -[id number] M Ex Date: AUG 23, 2022@09:29 Req Phys: LEIF BALBUENA Pat Loc: [facility] 2F (Req'g Img Loc: MAIN X-RAY Service: Unknown (Case [id number] COMPLETE) ELBOW LEFT 3 OR MORE VIEWS (RAD Detailed) CPT:76693 Reason for Study: postop Clinical History: [place] IS NOT under investigation for COVID-19 or is COVID-19 negative postop Responsible provider name and phone number to notify for critical findings if other than user placing the order and pager listed below: User placing orders pager: [phone] LAST CREATININE 0.9 (07/19/22) Report Status: Verified Date Reported: AUG 23, 2022 Date Verified: AUG 23, 2022 Facilities Management Executive E-Sig:/SANGITA/ALBINA LEE MD Report: Exam: Left elbow 3 [...] Primary Interpreting Staff: ALBINA LEE MD, RADIOLOGIST (Facilities Management Executive) /[facility] Encounter Notes: All associated encounter notes This section contains the clinical notes associated to the Encounter. Date/Time Encounter Note(s) Provider Source Aug 23, 2022 10:11 AM PHYSICIAN EMERGENC Y DEPT NOTE: LOCAL TITLE: EMERGENCY DEPT NOTE STANDARD TITLE: PHYSICIAN EMERGENCY DEPT NOTE DATE OF NOTE: AUG 23, 2022@10:11 ENTRY DATE: AUG 23, 2022@10:11:06 AUTHOR: NAZIA JOHANSEN EXP COSIGNER: URGENCY: STATUS: COMPLETED Ortho staff Dr. Balbuena contacted ER attending with report of this patient with speech changes over 3 to 4 days. Patient has history of renal cell carcinoma with metastases. He is status post right elbow open reduction internal fixation. Transferred to ER with an RN is recommended. /sangita/ NAZIA JOHANSEN MD STAFF PHYSICIAN Signed: 08/23/2022 10:11 Receipt Acknowledged By: * AWAITING SIGNATURE * LEIF BALBUENA * AWAITING SIGNATURE * JUANY WYNN [facility]
--- OUTSIDE RECORDS SUMMARY | 2023-03-24 08:31 | XMS_ITS | Encounter Summary ---
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 Organization [facility] Address [address] [place] [address] Support Name Relationship Address Phone DOREEN WAGNER Next of Kin [phone] [place] [phone] DOREEN Emergency Contact [phone] [place] [phone] Insurance Providers: All historical and current [...] Name Patient's Relationship to Policy [place] [employer] [facility] (WNR) MEDICARE ADVANTAGE [facility] ([employer] [facility]) June 26, 2016 [id number] BERNARDJOAN PATIENT [employer] [facility] (WNR) MEDICARE ADVANTAGE [facility] (WNR) June 26, 2016 [id number] JOAN WAGNER KARSTEN PATIENT [employer] [facility] (WNR) MEDICARE ADVANTAGE [facility] (WNR) June 26, 2016 [id number] JONA WAGNER KARSTEN PATIENT Selected Encounter This section includes the information on record at [place] for the Encounter. Date/Time Encounter Type Encounter Description Reason Provider Source Aug 22, 2022 03:09 PM Outpatient Encounter ADMIN PAT ACTIVTIES (MASNONCT) DIAN BOX Encounter Template Text not used by [place] [...] 20 appointments. The data comes from all [facility]. Appointment Date/Time Appointment Type Appointme nt Facility Name Aug 23, 2022 09:30 AM AMBULATORY - SURGERY [facility] Aug 23, 2022 09:45 AM AMBULATORY - NONE [facility] Aug 23, 2022 10:30 AM AMBULATORY - MEDICINE [facility] Aug 23, 2022 10:31 AM AMBULATORY - MEDICINE [facility] Sep 06, 2022 10:15 AM AMBULATORY - SURGERY [facility] Oct 25, 2022 07:00 AM AMBULATORY - NONE [facility] Oct 25, 2022 07:30 AM AMBULATORY - SURGERY [facility] Oct 25, 2022 09:[address] [facility] Active, Pending, and Scheduled Orders This section includes a listing of several types of active, pending, and scheduled orders, including clinic medications orders, diagnostic test orders, procedure orders and consult orders; where the start date of the order is 45 days before the date of the Encounter or 45 days after the date of theEncounter. The data comes from all [facility]. Test Date/Time Test Type Test Details Facility Name July 14, 2022 12:00 AM Laboratory - Blood Bank Order ABO/RH - LAB BLOOD [facility] July 14, 2022 02:05 PM Laboratory - Blood Bank Order TYPE & SCREEN - LAB BLOOD [facility] Aug 07, 2022 11:23 AM Laboratory - Chemi stry Order DRUG SCREEN PANEL,URINE URINE ONCE [facility] Aug 23, 2022 10:47 AM Laboratory - Chemi stry Order URINALYSIS URINE ER STAT [facility] Lab Results: +/- 30 days of [...] Range Comment Aug 24, 2022 12:15 PM [facility] URINALYSIS Specimen Type: URINE No comment entered. Ordering Provider: LUCIO KIM Report Released Date/Time: Aug 24, 2022 09:34 AM Reporting Lab: [facility] [id number] Performing Lab: [facility] [phone] URINE COLOR YELLOW SPECIFIC GRAVITY 1.030 1.003-1.03 [...] See_Commen t Aug 23, 2022 11:16 AM [facility] PROTHROMBIN TIME/INR Specimen Type: PLASMA No comment entered. Ordering Provider: Serena ESQUIVEL Report Released Date/Time: Aug 23, 2022 10:47 AM Aug 23, 2022 11:16 AM [facility] ACT PART THROMBO TIME Specimen Type: PLASMA No comment entered. Ordering Provider: Serena ESQUIVEL Report Released Date/Time: Aug 23, 2022 10:47 AM Reporting Lab: [facility] [phone] Performing Lab: [facility] [phone] APTT 30.2 25.1-36.5 Aug 23, 2022 11:16 AM [facility] LIPID PANEL,NON-FASTING Specimen Type: PLASMA No comment entered. Ordering Provider: Serena ESQUIVEL Report Released Date/Time: Aug 23, 2022 10:47 AM Reporting Lab: [facility] [phone] Performing Lab: [facility] [address] CHOLESTEROL 129 See_Comm en t .HDL 36 L See_Commen t LDL CALCULATION 68 See_ Commen t VLDL CALCULATION 25 See_Commen t NON HDL CHOLESTEROL 93 See_Commen t TRIG(NON FASTING) 123 See_Commen t Aug 23, 2022 11:16 AM [facility] TSH W/REFLEX TO FREE T4 Specimen Type: PLASMA No comment entered. Ordering Provider: Serena ESQUIVEL Report Released Date/Time: Aug 23, 2022 10:47 AM Reporting Lab: [facility] [phone] Performing Lab: [facility] [address] TSH 1.54 0.35-4.94 Aug 23, 2022 11:16 AM [facility] CARDIAC TROPONIN I Specimen Type: PLASMA No comment entered. Ordering Provider: Serena ESQUIVEL Report Released Date/Time: Aug 23, 2022 10:47 AM Reporting Lab: [facility] [address] Performing Lab: [facility] [address] CARDIAC TROPONIN I <0.028 See_Commen t Aug 23, 2022 11:16 AM [facility] SED RATE Specimen Type: BLOOD No comment entered. Ordering Provider: Serena ESQUIVEL Report Released Date/Time: Aug 23, 2022 10:47 AM Reporting Lab: [facility] [phone] Performing Lab: [facility] [phone] SED RATE 31 H 5-15 Aug 23, 2022 11:16 AM [facility] C-REACTIVE PROTEIN Specimen Type: SERUM No comment entered. Ordering Provider: Serena ESQUIVEL Report Released Date/Time: Aug 23, 2022 10:47 AM Reporting Lab: [facility] [address] Performing Lab: [facility] [address] C-REACTIVE PROTEIN 3.14 See_Commjd t Aug 23, 2022 11:16 AM [facility] PHOSPHORUS Specimen Type: PLASMA No comment entered. Ordering Provider: Serena ESQUIVEL Report Released Date/Time: Aug 23, 2022 10:47 AM Reporting Lab: [facility] [phone] Performing Lab: [facility] [address] PHOSPHORUS 3.9 2.3-4.7 Aug 23, 2022 11:16 AM [facility] HEMOGLOBIN A1C Specimen Type: BLOOD Comment: [...] Aug 23, 2022 10:47 AM Reporting Lab: [facility] [phone] Performing Lab: [facility] [address] HEMOGLOBIN A1C 4.2 4.0-6.0 Aug 23, 2022 11:16 AM [facility] COMPREHENSIVE METABOLIC PANEL+MG Specimen Type: PLASMA No comment entered. Ordering Provider: Serena ESQUIVEL Report Released Date/Time: Aug 23, 2022 10:47 AM Reporting Lab: [facility] [address] Performing Lab: [facility] [address] CREATININE 0.8 0.7-1.2 UREA NITROGEN 15 8-26 [...] See_Commen t Aug 23, 2022 11:16 AM [facility] CBC & DIFF Specimen Type: BLOOD Comment: Automated Differential Performed Ordering Provider: Serena ESQUIVEL Report Released Date/Time: Aug 23, 2022 10:47 AM Reporting Lab: [facility] [address] Performing Lab: [facility] [address] WBC 5.11 4.0-11.0 RBC 3.87 L 4.6-6.2 [...] 0.02 0-0.1 Aug 23, 2022 11:14 AM [facility] POC CREATININE Specimen Type: BLOOD No comment entered. Ordering Provider: LAVONNE PANCHAL Report Released Date/Time: Aug 23, 2022 11:16 AM Reporting Lab: [facility] [phone] Performing Lab: [facility] [address] POC CREATININE 0.8 0.6-1.3 Social History: Smoking Status (Most current) and Tobacco Use (All prior to encounter date) This section includes the most current, and the historical, smoking and tobacco- related health factors from the [facility] where the Encounter took place. Current Smoking Status This section includes the most current smoking, or tobacco-related health factor, from the [place] facility where the Encounter took place. Date/Time Current Smoking Status Comment Facil ity May 10, 2022 09:15 AM VA-TOBACCO FORMER USER [facility] Tobacco Use History This section includes a history of the smoking, or tobacco-related health factors, that were collected on or before the date of the Encounter. The data comes from the [place] facility where the Encounter took place. Date/Time Smoking Status/Tobacco Use Comment F acility May 10, 2022 09:15 AM VA-TOBACCO QUIT 15 YRS OR MORE [facility] May 11, 2021 09:15 AM VA-TOBACCO FORMER USER [facility] May 11, 2021 09:15 AM VA-TOBACCO QUIT 15 YRS OR MORE [facility] Nov 22, 2018 01:36 PM VA-TOBACCO NEVER USED [facility] Nov 12, 2017 07:35 AM FORMER TOBACCO USER 7Y OR GREATE R [facility] Nov 06, 2016 09:05 AM FORMER TOBACCO USER 7Y OR GREATE R [facility] Sep 27, 2015 09:42 AM FORMER TOBACCO USER 7Y OR GREATE R [facility] Sep 25, 2014 07:55 AM FORMER TOBACCO USER 7Y OR GREATE R [facility] Sep 08, 2013 07:48 AM FORMER TOBACCO USER 7Y OR GREATE R [facility] July 09, 2012 09:20 AM FORMER TOBACCO USE >1Y <7Y [facility] Jun 06, 2011 07:53 AM FORMER TOBACCO USE >1Y <7Y [facility] Sep 09, 2009 03:03 PM FORMER TOBACCO USE >1Y <7Y [facility] Aug 11, 2008 01:06 PM FORMER TOBACCO USE <1Y [facility] Sep 19, 2007 02:52 PM CURRENT TOBACCO USER [facility] Sep 03, 2006 03:32 PM CURRENT TOBACCO USER [facility] Advance Directives: All historical and current Section Date Range: From patient's date of to the date document was created. This section includes ALL of a patient's completed or amended [place] Advance and Rescinded Directives. The entries below indicate that a directive exists for the patient, but an actual copy is not included with this document. The data comes from all [place] facilities. Date Advance Directives Provider Source Mar 18, 2003 ADVANCE DIRECTIVE FARHAT MELGAR [facility] Radiology Reports: +/- 30 days [...] Aug 23, 2022 01:11 PM MRI-BRAIN (P): CARSONMARYJO ROWELL [id number] -1950 M Exm Date: AUG 23, 2022@13:11 Req Phys: Serena ESQUIVEL Pat Loc: [facility] EMERGENCY DEPT WALK-IN (Re Img Loc: MRI IMAGING Service: Unknown (Case [id number] COMPLETE) MRI BRAINBRAINSTEM W & W/O CONTRA(MRI Detailed) CPT:86951 Contrast Media : Gadolinium Reason for Study: APHASIA X3 DAYS Clinical History: MRI BRAIN WITH/WITHOUT CONTRAST [place] IS NOT under investigation for COVID-19 or is COVID-19 negative Did the ordering provider speak with a sap treasury consultant regarding this imaging exam? Yes, Name of sap treasury consultant (resident or staff):Neurology Aphasia x 3 days Responsible provider name and phone number to notify for critical findings if other than user placing the order and pager listed below: User placing orders pager: [phone] [id number] LAST CREATININE 0.8 (08/23/22) Allergies: HAZELNUTS (Nov 21, 2002) Report Status: Verified Date Reported: AUG 23, 2022 Date Verified: AUG 23, 2022 Relationship Mgr E-Sig:/ES/TERESA SANTAMARIA MD Report: MRI BRAINBRAINSTEM W [...] in the left supratentorial compartment results in oxpo-kg-ufejv midline shift again measuring up to 1.4 [...] intracranial mass effect, with rightward subfalcine herniation (lltm-pj-dhsbk midline shift measures up to 1.4 cm) [...] Primary Interpreting Staff: TERESA SANTAMARIA MD, RADIOLOGIST (Relationship Mgr) /[facility] TERESA SANTAMARIA [facility] Aug 23, 2022 12:03 PM CTA CAROTID/COW (P ): MARYJO WAGNER [id number] -1950 M Ex Date: AUG 23, 2022@12:03 Req Phys: Serena ESQUIVEL Pat Loc: [facility] EMERGENCY DEPT WALK-IN (Re Img Loc: CT IMAGING Service: Unknown (Case [id number] COMPLETE) CTA HEAD W/POSTPROCESSING (CT Detailed) CPT:41774 Contrast Media : unspecified contrast media Reason for Study: APHASIAx3 days (Case [id number] COMPLETE) CTA NECK (CT Detailed) CPT:87956 Contrast Media : unspecified contrast media Non-ionic Iodinated Clinical History: HEAD/NECK CTA [place] IS NOT under investigation for COVID-19 or is COVID-19 negative Defer to radiologist for final CT protocol. Please enter pertinent clinical history on the next page. Responsible provider name and phone number to notify for critical findings if other than user placing the order and pager listed below: User placing orders pager: [phone] [email or web address] LAST 3: Collection DT Specimen Test Name [...] PLASMA ESTIMATED GFR(eGF >60 Ref: >=60 Allergies: ([facility] only) HAZELNUTS (Nov 21, 2002) To see allergies from all [facility] locations click Reports tab>Remote Data>All Available Sites>Clinical Reports>Allergies. Report Status: Verified Date Reported: AUG 23, 2022 Date Verified: AUG 23, 2022 Relationship Mgr E-Sig:/ES/TERESA SANTAMARIA MD Report: CTA HEAD W/POSTPROCESSING, [...] contribute to left cerebral white matter edema. Dgvy-me-khhiy midline shift measures up to 1.4 cm. [...] left lateral ventricle. Rightward subfalcine herniation, with qgff-zs-ovqdo midline shift measuring up to 1.4 cm. [...] Primary Interpreting Staff: TERESA SANTAMARIA MD, RADIOLOGIST (Relationship Mgr) /[facility] TERESA SANTAMARIA [facility] Aug 23, 2022 09:29 AM ELBOW LEFT 3 OR MO RE VIEWS: MARJYO WAGNER [id number] -1950 M Exm Date: AUG 23, 2022@09:29 Req Phys: LEIF PANDA T Pat Loc: [facility]THO OT [facility] 2F (Req'g Img Loc: MAIN X-RAY Service: Unknown (Case [id number] COMPLETE) ELBOW LEFT 3 OR MORE VIEWS (RAD Detailed) CPT:46603 Reason for Study: postop Clinical History: IS NOT under investigation for COVID-19 or is COVID-19 negative postop Responsible provider name and phone number to notify for critical findings if other than user placing the order and pager listed below: User placing orders pager: [phone] LAST CREATININE 0.9 (07/19/22) Report Status: Verified Date Reported: AUG 23, 2022 Date Verified: AUG 23, 2022 Relationship Mgr E-Sig:/SANGITA/ALBINA LEE MD Report: Exam: Left elbow [...] Primary Interpreting Staff: ALBINA LEE MD, RADIOLOGIST (Relationship Mgr) /ALBINA SALEH [facility] Encounter Notes: All associated encounter notes This section contains the clinical notes associated to the Encounter. Date/Time Encounter Note(s) Provider Source Aug 22, 2022 03:10 PM PULMONARY NOTE: LOCAL TITLE: PULMONARY LUNG NODULE NOTE STANDARD TITLE: PULMONARY NOTE DATE OF NOTE: AUG 22, 2022@15:10 ENTRY DATE: AUG 22, 2022@15:10:31 AUTHOR: DIAN BOX EXP COSIGNER: URGENCY: STATUS: COMPLETED Patient will not be tracked. Date of most recent follow-up image: April 13, 2022 Reason patient will not be tracked: Other: Pt is declining any treatment or follow up for RCC. /sangita/ DIAN BOX MA, RN LCS [employer] Signed: 08/22/2022 15:12 DIAN BOX [facility]
--- OUTSIDE RECORDS SUMMARY | 2023-03-24 08:31 | XMS_ITS | Encounter Summary ---
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 Address [address] [place] [address] Support Name Relationship Address Phone DOREEN WAGNER Next of Kin [id number] [place] [phone] DOREEN Emergency Contact [phone] [place] [phone] Insurance Providers: All historical and current [...] Name Patient's Relationship to Policy [place] [employer] [facility] (WNR) MEDICARE ADVANTAGE [facility] ([facility]) June 26, 2016 [id number] JOAN WAGNER KARSTEN PATIENT [employer] MCR (WNR) MEDICARE ADVANTAGE MCR ([facility]) June 26, 2016 [id number] JOAN WAGNER PATIENT [employer] [facility] (WNR) MEDICARE ADVANTAGE [facility] (WNR) June 26, 2016 [id number] [phone] JOAN WAGNER PATIENT Selected Encounter This section includes the information on record at [place] for the Encounter. Date/Time Encounter Type Encounter Description Reason Provider Source Aug 23, 2022 09:30 AM POSTOP FOLLOW-UP VISIT ORTHO/JOINT SURG ICD-10-CM Z48.89 Encounter for other specified surgical aftercare LEIF PANDA Encounter Template Text not used by [place] Assessments - Encounter Diagnoses This section includes the primary and secondary diagnoses documented for the Encounter. Date/Time Primary/Secondary Diagnosis Diagnosis Name Provider Source Aug 23, 2022 10:35 AM PRIMARY Encounter for other specified surgical aftercare LEIF PANDA [facility] Plan of Treatment: Future Appointments (+ 6 months) and Future Tests (+/- 45 days) The Plan of Treatment section includes future care activities for the patient from all [place] [facility]. This section includes future appointments and future orders which are active, pending or scheduled. Future Appointments This section includes appointments that were scheduled to occur 6 months from the date of the Encounter, up to a maximum of 20 appointments. The data comes from all [facility]. Appointment Date/Time Appointment Type Appointme nt Facility Name Sep 06, 2022 10:15 AM AMBULATORY - SURGERY [facility] Oct 25, 2022 07:00 AM AMBULATORY - NONE [facility] Oct 25, 2022 07:30 AM AMBULATORY - SURGERY [facility] Oct 25, 2022 09:00 AM AMBULATORY - SURGERY [facility] Active, Pending, and Scheduled Orders This section includes a listing of several types of active, pending, and scheduled orders, including clinic medications orders, diagnostic test orders, procedure orders and consult orders; where the start date of the order is 45 days before the date of the Encounter or 45 days after the date of theEncounter. The data comes from all [facility]. Test Date/Time Test Type Test Details Facility Name July 14, 2022 12:00 AM Laboratory - Blood Bank Order ABO/RH - LAB BLOOD [facility] July 14, 2022 02:05 PM Laboratory - Blood Bank Order TYPE & SCREEN - LAB BLOOD [facility] Aug 07, 2022 11:23 AM Laboratory - Chemi [employer] Order DRUG SCREEN PANEL,URINE URINE ONCE [facility] Aug 23, 2022 10:47 AM Laboratory - Chemi stry Order URINALYSIS URINE ER STAT [facility] Lab Results: +/- 30 days of [...] Range Comment Aug 24, 2022 12:15 PM [facility] URINALYSIS Specimen Type: URINE No comment entered. Ordering Provider: LUCIO KIM Report Released Date/Time: Aug 24, 2022 09:34 AM Reporting Lab: [facility] [phone] Performing Lab: [facility] [phone] URINE COLOR YELLOW SPECIFIC GRAVITY 1.030 1.003-1.03 [...] See_Commen t Aug 23, 2022 11:16 AM [facility] PROTHROMBIN TIME/INR Specimen Type: PLASMA No comment entered. Ordering Provider: Serena ESQUIVEL Report Released Date/Time: Aug 23, 2022 10:47 AM Aug 23, 2022 11:16 AM [facility] ACT PART THROMBO TIME Specimen Type: PLASMA No comment entered. Ordering Provider: Serena ESQUIVEL Report Released Date/Time: Aug 23, 2022 10:47 AM Reporting Lab: [facility] [phone] Performing Lab: [facility] [phone] APTT 30.2 25.1-36.5 Aug 23, 2022 11:16 AM [facility] LIPID PANEL,NON-FASTING Specimen Type: PLASMA No comment entered. Ordering Provider: Serena ESQUIVEL Report Released Date/Time: Aug 23, 2022 10:47 AM Reporting Lab: [facility] [address] Performing Lab: [facility] [address] CHOLESTEROL 129 See_Comm en t .HDL 36 L See_Commen t LDL CALCULATION 68 See_ Commen t VLDL CALCULATION 25 See_Commen t NON HDL CHOLESTEROL 93 See_Commen t TRIG(NON FASTING) 123 See_Commen t Aug 23, 2022 11:16 AM [facility] CARDIAC TROPONIN I Specimen Type: PLASMA No comment entered. Ordering Provider: Serena ESQUIVEL Report Released Date/Time: Aug 23, 2022 10:47 AM Reporting Lab: [facility] [address] Performing Lab: [facility] [address] CARDIAC TROPONIN I <0.028 See_Commen t Aug 23, 2022 11:16 AM [facility] TSH W/REFLEX TO FREE T4 Specimen Type: PLASMA No comment entered. Ordering Provider: Serena ESQUIVEL Report Released Date/Time: Aug 23, 2022 10:47 AM Reporting Lab: [facility] [address] Performing Lab: [facility] [address] TSH 1.54 0.35-4.94 Aug 23, 2022 11:16 AM [facility] SED RATE Specimen Type: BLOOD No comment entered. Ordering Provider: Serena ESQUIVEL Report Released Date/Time: Aug 23, 2022 10:47 AM Reporting Lab: [facility] [address] Performing Lab: [facility] [address] SED RATE 31 H 5-15 Aug 23, 2022 11:16 AM [facility] C-REACTIVE PROTEIN Specimen Type: SERUM No comment entered. Ordering Provider: Serena ESQUIVEL Report Released Date/Time: Aug 23, 2022 10:47 AM Reporting Lab: [facility] [address] Performing Lab: [facility] [address] C-REACTIVE PROTEIN 3.14 See_Commen t Aug 23, 2022 11:16 AM [facility] PHOSPHORUS Specimen Type: PLASMA No comment entered. Ordering Provider: Serena ESQUIVEL Report Released Date/Time: Aug 23, 2022 10:47 AM Reporting Lab: [facility] [address] Performing Lab: [facility] [address] PHOSPHORUS 3.9 2.3-4.7 Aug 23, 2022 11:16 AM [facility] HEMOGLOBIN A1C Specimen Type: BLOOD Comment: Values [...] Aug 23, 2022 10:47 AM Reporting Lab: [facility] [address] Performing Lab: [facility] [address] HEMOGLOBIN A1C 4.2 4.0-6.0 Aug 23, 2022 11:16 AM [facility] COMPREHENSIVE METABOLIC PANEL+MG Specimen Type: PLASMA No comment entered. Ordering Provider: Serena ESQUIVEL Report Released Date/Time: Aug 23, 2022 10:47 AM Reporting Lab: [facility] [address] Performing Lab: [facility] [address] CREATININE 0.8 0.7-1.2 UREA NITROGEN 15 8-26 [...] See_Commen t Aug 23, 2022 11:16 AM [facility] CBC & DIFF Specimen Type: BLOOD Comment: Automated Differential Performed Ordering Provider: Serena ESQUIVEL Report Released Date/Time: Aug 23, 2022 10:47 AM Reporting Lab: [facility] [address] Performing Lab: [facility] [address] WBC 5.11 4.0-11.0 RBC 3.87 L 4.6-6.2 [...] 0.02 0-0.1 Aug 23, 2022 11:14 AM [facility] POC CREATININE Specimen Type: BLOOD No comment entered. Ordering Provider: LAVONNE PANHCAL Report Released Date/Time: Aug 23, 2022 11:16 AM Reporting Lab: [facility] [phone] Performing Lab: [facility] [address] POC CREATININE 0.8 0.6-1.3 Vital Signs: All taken on the encounter date This section contains inpatient and outpatient Vital Signs collected on the date of the Encounter. Date/Time Temperature Pulse Blood Pressure Respiratory Rate SP02 Pain Height Weight Body Mass Index Source Aug 23, 2022 10:34 AM 98.2 F 63 /min 128/72 mm[Hg] 94 % [facility] Social History: Smoking Status (Most [...] took place. Date/Time Current Smoking Status Comment Adore ity May 10, 2022 09:15 AM VA-TOBACCO FORMER USER [facility] Tobacco Use History This section includes a history of the smoking, or tobacco-related health factors, that were collected on or before the date of the Encounter. The data comes from the [place] facility where the Encounter took place. Date/Time Smoking Status/Tobacco Use Comment F acility May 10, 2022 09:15 AM VA-TOBACCO QUIT 15 YRS OR MORE [facility] May 11, 2021 09:15 AM VA-TOBACCO FORMER USER [facility] May 11, 2021 09:15 AM VA-TOBACCO QUIT 15 YRS OR MORE [facility] Nov 22, 2018 01:36 PM VA-TOBACCO NEVER USED [facility] Nov 12, 2017 07:35 AM FORMER TOBACCO USER 7Y OR GREATE R [facility] Nov 06, 2016 09:05 AM FORMER TOBACCO USER 7Y OR GREATE R [facility] Sep 27, 2015 09:42 AM FORMER TOBACCO USER 7Y OR GREATE R [facility] Sep 25, 2014 07:55 AM FORMER TOBACCO USER 7Y OR GREATE R [facility] Sep 08, 2013 07:48 AM FORMER TOBACCO USER 7Y OR GREATE R [facility] July 09, 2012 09:20 AM FORMER TOBACCO USE >1Y <7Y [facility] Jun 06, 2011 07:53 AM FORMER TOBACCO USE >1Y <7Y [facility] Sep 09, 2009 03:03 PM FORMER TOBACCO USE >1Y <7Y [facility] Aug 11, 2008 01:06 PM FORMER TOBACCO USE <1Y [facility] Sep 19, 2007 02:52 PM CURRENT TOBACCO USER [facility] Sep 03, 2006 03:32 PM CURRENT TOBACCO USER [facility] Advance Directives: All historical and current Section Date Range: From patient's date of to the date document was created. This section includes ALL of a patient's completed or amended [place] Advance and Rescinded Directives. The entries below indicate that a directive exists for the patient, but an actual copy is not included with this document. The data comes from all [facility]. Date Advance Directives Provider Source Mar 18, 2003 ADVANCE DIRECTIVE FARHAT MELGAR [facility] Radiology Reports: +/- 30 [...] 2022 01:11 PM MRI-BRAIN (P): MARYJO WAGNER [id number] -[id number] M Exm Date: AUG 23, 2022@13:11 Req Phys: Serena ESQUIVEL Pat Loc: [facility] EMERGENCY DEPT WALK-IN (Re Img Loc: MRI IMAGING Service: Unknown (Case [id number] COMPLETE) MRI BRAINBRAINSTEM W & W/O CONTRA(MRI Detailed) CPT:11011 Contrast Media : Gadolinium Reason for Study: APHASIA X3 DAYS Clinical History: MRI BRAIN WITH/WITHOUT CONTRAST [place] IS NOT under investigation for COVID-19 or is COVID-19 negative Did the ordering provider speak with a business system consultant regarding this imaging exam? Yes, Name of business system consultant (resident or staff):Neurology Aphasia x 3 days Responsible provider name and phone number to notify for critical findings if other than user placing the order and pager listed below: User placing orders pager: [phone] LAST CREATININE 0.8 (08/23/22) Allergies: HAZELNUTS (Nov 21, 2002) Report Status: Verified Date Reported: AUG 23, 2022 Date Verified: AUG 23, 2022 Reproduction Technician E-Sig:/ES/TERESA SANTAMARIA MD Report: MRI BRAINBRAINSTEM W [...] in the left supratentorial compartment results in bmkt-ue-kbyhy midline shift again measuring up to 1.4 [...] intracranial mass effect, with rightward subfalcine herniation (cnbo-ht-nbcng midline shift measures up to 1.4 cm) [...] Primary Interpreting Staff: TERESA SANTAMARIA MD, RADIOLOGIST (Reproduction Technician) /[facility] TERESA SANTAMARIA [facility] Aug 23, 2022 12:03 PM CTA CAROTID/COW (P ): MARYJO WAGNER [id number] -1950 Ex Date: AUG 23, 2022@12:03 Req Phys: Serena ESQUIVEL Pat Loc: [facility] EMERGENCY DEPT WALK-IN (Re Img Loc: CT IMAGING Service: Unknown (Case [id number] COMPLETE) CTA HEAD W/POSTPROCESSING (CT Detailed) CPT:30838 Contrast Media : unspecified contrast media Reason for Study: APHASIAx3 days (Case 1532 COMPLETE) CTA NECK (CT Detailed) CPT:52656 Contrast Media : unspecified contrast media Non-ionic Iodinated Clinical History: HEAD/NECK CTA [place] IS NOT under investigation for COVID-19 or is COVID-19 negative Defer to radiologist for final CT protocol. Please enter pertinent clinical history on the next page. Responsible provider name and phone number to notify for critical findings if other than user placing the order and pager listed below: User placing orders pager: [phone] LAST 3: Collection DT Specimen Test Name [...] PLASMA ESTIMATED GFR(eGF >60 Ref: >=60 Allergies: ([place] only) HAZELNUTS (Nov 21, 2002) To see allergies from all [facility] locations click Reports tab>Remote Data>All Available Sites>Clinical Reports>Allergies. Report Status: Verified Date Reported: AUG 23, 2022 Date Verified: AUG 23, 2022 Reproduction Technician E-Sig:/ES/TERESA SANTAMARIA MD Report: CTA HEAD W/POSTPROCESSING, [...] contribute to left cerebral white matter edema. Jcfx-fn-rglyz midline shift measures up to 1.4 cm. [...] left lateral ventricle. Rightward subfalcine herniation, with ndgl-th-oqonu midline shift measuring up to 1.4 cm. [...] Primary Interpreting Staff: TERESA SANTAMARIA MD, RADIOLOGIST (Reproduction Technician) /[facility] TERESA SANTAMARIA [facility] Aug 23, 2022 09:29 AM ELBOW LEFT 3 OR MO RE VIEWS: MARYJO WAGNER [id number] -[id number] M Exm Date: AUG 23, 2022@09:29 Req Phys: LEIF PANDA Pat Loc: [facility] ORTHO OT [facility] 2F (Req'g Img Loc: MAIN X-RAY Service: Unknown (Case [id number] COMPLETE) ELBOW LEFT 3 OR MORE VIEWS (RAD Detailed) CPT:62178 Reason for Study: postop Clinical History: [place] IS NOT under investigation for COVID-19 or is COVID-19 negative postop Responsible provider name and phone number to notify for critical findings if other than user placing the order and pager listed below: User placing orders pager: [phone] LAST CREATININE 0.9 (07/19/22) Report Status: Verified Date Reported: AUG 23, 2022 Date Verified: AUG 23, 2022 Reproduction Technician E-Sig:/ES/ALBINA LEE MD Report: Exam: Left elbow [...] anterior to the distal left humerus. Skin lisa in place. Persistent but decreased soft tissue swelling about the left elbow. Primary Interpreting Staff: ALBINA LEE MD, RADIOLOGIST (Reproduction Technician) /ALBINA SALEH [facility] Encounter Notes: All associated encounter notes This section contains the clinical notes associated to the Encounter. Date/Time Encounter Note(s) Provider Source Aug 23, 2022 10:27 AM ORTHOPEDIC SURGERY ATTENDING NOTE: LOCAL TITLE: ORTHOPEDIC CLINIC NOTE STANDARD TITLE: ORTHOPEDIC SURGERY ATTENDING NOTE DATE OF NOTE: AUG 23, 2022@10:27 ENTRY DATE: AUG 23, 2022@10:27:46 AUTHOR: LEIF PANAD EXP COSIGNER: URGENCY: STATUS: COMPLETED Diagnosis: Metastatic renal cell carcinoma Operation done: Preoperative embolization followed by curettage, open reduction internal fixation with bone cement augmentation of left distal humerus pathologic fracture. Date of surgery: July 18, 2022 Reason for visit: 6 weeks postop check. Follow-up visit: Patient is a very pleasant 72-year-old male who states that overall his left elbow has been doing well. There is minimal pain and has been generally doing very well until about 3 or 4 days ago when he started to noted slurring of speech and weakness on his right side with the left lower extremity being more affected. His weakness has been gradually worsening. Patient awake, alert, coherent, brought into clinic room on a wheelchair. He is not in any distress. He has slow speech but speaks with clear words. Left elbow with mild swelling. He can actively flex and extend from 10 to 70 degrees without pain. Incision well-healed. Lisa still in place. No tenderness on palpation. He can actively move his right lower extremity but overall weak with grossly 3 5/strength. Imaging studies: Distal humerus medial and lateral plates in place without complications. Bone cement augment without complications as well. The leg run- on osteotomy cannulated screw fixation without any pullout however there is slight displacement of the osteotomy site compared to his immediate postoperative films. Overall reduction acceptable. Assessment: Metastatic renal cell carcinoma with pathologic fracture of the left humerus overall doing well status post curettage, bone cement augmentation and fixation. Patient has acute onset of slurring of speech with right-sided weakness. Plan: The clinical and radiographic findings of been discussed with the patient. At this point we will hold off on his occupational therapy and have the patient go to the emergency room for further evaluation and treatment of his slurring of speech and right-sided weakness. I was able to speak with the emergency room MD, Dr. Laguna, who gladly accepted the patient. Patient escorted to emergency room with Ortho nurse. Patient advised to follow-up with PCP. Return to clinic in orthopedics in 6 weeks for 3 months postop check with repeat x-rays. /sangita/ LEIF PANDA MD STAFF ORTHOPAEDIC SURGEON Signed: 08/23/2022 10:36 LEIF PANDA [facility]
--- OUTSIDE RECORDS SUMMARY | 2023-03-24 08:31 | XMS_ITS | Encounter Summary ---
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 [employer] Address [address] [place] [address] Support Name Relationship Address Phone DOREEN VARGAS Next of Kin [phone] [place] [phone] DOREEN Emergency Contact [phone] [place] [phone] Insurance Providers: All historical and current [...] Patient's Relationship to Policy [place] [facility] [facility] (WNR) MEDICARE ADVANTAGE [facility] ([facility]) June 26, 2016 [id number] JOAN VARGAS KARSTEN PATIENT [employer] [facility] (WNR) MEDICARE ADVANTAGE [facility] ([facility]) June 26, 2016 [id number] JOAN VARGAS KARSTEN PATIENT [employer] [facility] (WNR) MEDICARE ADVANTAGE [facility] (R) June 26, 2016 [id number] [phone] JOAN VARGAS PATIENT Selected Encounter This section includes the information on record at [place] for the Encounter. Date/Time Encounter Type Encounter Description Reason Provider Source Aug 23, 2022 10:31 AM EMERGENCY DEPT VISIT MOD [facility] EMERGENCY DEPT ICD-10-CM C79.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 LAVONNE PANCHAL Encounter Template Text not used by [facility] Assessments - Encounter Diagnoses This section includes the primary and secondary diagnoses documented for the Encounter. Date/Time Primary/Secondary Diagnosis Diagnosis Name Provider Source Aug 23, 2022 07:17 PM PRIMARY Secondary malignant neoplasm of brain Serena ESQUIVEL [facility] Plan of Treatment: Future Appointments (+ 6 months) and Future Tests (+/- 45 days) The Plan of Treatment section includes future care activities for the patient [facility] [place] [facility] This section includes future appointments and future orders which are active, pending or scheduled. Future Appointments This section includes appointments that were scheduled to occur 6 months from the date of the Encounter, up to a maximum of 20 appointments. The data comes from all [facility]. Appointment Date/Time Appointment Type Appointme nt Facility Name Sep 06, 2022 10:15 AM AMBULATORY - SURGERY [facility] Oct 25, 2022 07:00 AM AMBULATORY - NONE [facility] Oct 25, 2022 07:30 AM AMBULATORY - SURGERY [facility] Oct 25, 2022 09:00 AM AMBULATORY - SURGERY [facility] Active, Pending, and Scheduled Orders This section includes a listing of several types of active, pending, and scheduled orders, including clinic medications orders, diagnostic test orders, procedure orders and consult orders; where the start date of the order is 45 days before the date of the Encounter or 45 days after the date of theEncounter. The data comes from all [facility]. Test Date/Time Test Type Test Details Facility Name July 14, 2022 12:00 AM Laboratory - Blood Bank Order ABO/RH - LAB BLOOD [facility] July 14, 2022 02:05 PM Laboratory - Blood Bank Order TYPE & SCREEN - LAB BLOOD [facility] Aug 07, 2022 11:23 AM Laboratory - Chemi strSuniva Order DRUG SCREEN PANEL,URINE URINE ONCE [facility] Aug 23, 2022 10:47 AM Laboratory - Chemi stry Order URINALYSIS URINE ER STAT [facility] Lab Results: +/- 30 days of the encounter This section includes the Chemistry and Hematology Lab Results on record with [place] for the patient. Radiology Reports and Pathology Reports are provided separately, in subsequent sections. Lab Results This section contains the Chemistry/Hematology Results that were resulted 30 days before or 30 daysafter the date of the Encounter. Date/Time Source Result Type Result - Unit Interpretation Reference Range Comment Aug 24, 2022 12:15 PM [facility] URINALYSIS Specimen Type: URINE No comment entered. Ordering Provider: LUCIO KIM A Report Released Date/Time: Aug 24, 2022 09:34 AM Reporting Lab: [facility] [id number] Performing Lab: [facility] [phone] URINE COLOR YELLOW SPECIFIC GRAVITY 1.030 1.003-1.03 [...] See_Commen t Aug 23, 2022 11:16 AM [facility] PROTHROMBIN TIME/INR Specimen Type: PLASMA No comment entered. Ordering Provider: Serena ESQUIVEL Report Released Date/Time: Aug 23, 2022 10:47 AM Aug 23, 2022 11:16 AM [facility] ACT PART THROMBO TIME Specimen Type: PLASMA No comment entered. Ordering Provider: Serena ESQUIVEL Report Released Date/Time: Aug 23, 2022 10:47 AM Reporting Lab: [facility] [phone] Performing Lab: [facility] [address] APTT 30.2 25.1-36.5 Aug 23, 2022 11:16 AM [facility] LIPID PANEL,NON-FASTING Specimen Type: PLASMA No comment entered. Ordering Provider: Serena ESQUIVEL Report Released Date/Time: Aug 23, 2022 10:47 AM Reporting Lab: [facility] [address] Performing Lab: [facility] [address] CHOLESTEROL 129 See_Comm en t .HDL 36 L See_Commen t LDL CALCULATION 68 See_ Commen t VLDL CALCULATION 25 See_Commen t NON HDL CHOLESTEROL 93 See_Commen t TRIG(NON FASTING) 123 See_Commen t Aug 23, 2022 11:16 AM [facility] TSH W/REFLEX TO FREE T4 Specimen Type: PLASMA No comment entered. Ordering Provider: Serena ESQUIVEL Report Released Date/Time: Aug 23, 2022 10:47 AM Reporting Lab: [facility] [address] Performing Lab: [facility] [address] TSH 1.54 0.35-4.94 Aug 23, 2022 11:16 AM [facility] CARDIAC TROPONIN I Specimen Type: PLASMA No comment entered. Ordering Provider: Serena ESQUIVEL Report Released Date/Time: Aug 23, 2022 10:47 AM Reporting Lab: [facility] [address] Performing Lab: [facility] [address] CARDIAC TROPONIN I <0.028 See_Commen t Aug 23, 2022 11:16 AM [facility] SED RATE Specimen Type: BLOOD No comment entered. Ordering Provider: Serena ESQUIVEL Report Released Date/Time: Aug 23, 2022 10:47 AM Reporting Lab: [facility] [address] Performing Lab: [facility] [address] SED RATE 31 H 5-15 Aug 23, 2022 11:16 AM [facility] C-REACTIVE PROTEIN Specimen Type: SERUM No comment entered. Ordering Provider: Serena ESQUIVEL Report Released Date/Time: Aug 23, 2022 10:47 AM Reporting Lab: [facility] [address] Performing Lab: [facility] [address] C-REACTIVE PROTEIN 3.14 See_Commen t Aug 23, 2022 11:16 AM [facility] PHOSPHORUS Specimen Type: PLASMA No comment entered. Ordering Provider: Serena ESQUIVEL Report Released Date/Time: Aug 23, 2022 10:47 AM Reporting Lab: [facility] [address] Performing Lab: [facility] [address] PHOSPHORUS 3.9 2.3-4.7 Aug 23, 2022 11:16 AM [facility] HEMOGLOBIN A1C Specimen Type: BLOOD [...] Aug 23, 2022 10:47 AM Reporting Lab: [facility] [address] Performing Lab: [facility] [address] HEMOGLOBIN A1C 4.2 4.0-6.0 Aug 23, 2022 11:16 AM [facility] COMPREHENSIVE METABOLIC PANEL+MG Specimen Type: PLASMA No comment entered. Ordering Provider: Serena ESQUIVEL Report Released Date/Time: Aug 23, 2022 10:47 AM Reporting Lab: [facility] [address] Performing Lab: [facility] [address] CREATININE 0.8 0.7-1.2 UREA NITROGEN 15 8-26 [...] See_Commen t Aug 23, 2022 11:16 AM [facility] CBC & DIFF Specimen Type: BLOOD Comment: Automated Differential Performed Ordering Provider: Serena ESQUIVEL Report Released Date/Time: Aug 23, 2022 10:47 AM Reporting Lab: [facility] [address] Performing Lab: [facility] [address] WBC 5.11 4.0-11.0 RBC 3.87 L 4.6-6.2 [...] 0.02 0-0.1 Aug 23, 2022 11:14 AM [facility] POC CREATININE Specimen Type: BLOOD No comment entered. Ordering Provider: LAVONNE PANCHAL Report Released Date/Time: Aug 23, 2022 11:16 AM Reporting Lab: [facility] [address] Performing Lab: [facility] [address] POC CREATININE 0.8 0.6-1.3 Vital Signs: All taken on the encounter date This section contains inpatient and outpatient Vital Signs collected on the date of the Encounter. Date/Time Temperature Pulse Blood Pressure Respiratory Rate SP02 Pain Height Weight Body Mass Index Source Aug 23, 2022 10:34 AM 98.2 F 63 /min 128/72 mm[Hg] 94 % [place] [facility] Social History: Smoking Status (Most current) and Tobacco Use (All prior to encounter date) This section includes the most current, and the historical, smoking and tobacco- related health factors from the [place] facility where the Encounter took place. Current Smoking Status This section includes the most current smoking, or tobacco-related health factor, from the [place] facility where the Encounter took place. Date/Time Current Smoking Status Comment Adore ity May 10, 2022 09:15 AM VA-TOBACCO FORMER USER [facility] Tobacco Use History This section includes a history of the smoking, or tobacco-related health factors, that were collected on or before the date of the Encounter. The data comes from the [place] facility where the Encounter took place. Date/Time Smoking Status/Tobacco Use Comment F acility May 10, 2022 09:15 AM VA-TOBACCO QUIT 15 YRS OR MORE [facility] May 11, 2021 09:15 AM VA-TOBACCO FORMER USER [facility] May 11, 2021 09:15 AM VA-TOBACCO QUIT 15 YRS OR MORE [facility] Nov 22, 2018 01:36 PM VA-TOBACCO NEVER USED [facility] Nov 12, 2017 07:35 AM FORMER TOBACCO USER 7Y OR GREATE R [facility] Nov 06, 2016 09:05 AM FORMER TOBACCO USER 7Y OR GREATE R [facility] Sep 27, 2015 09:42 AM FORMER TOBACCO USER 7Y OR GREATE R [facility] Sep 25, 2014 07:55 AM FORMER TOBACCO USER 7Y OR GREATE R [facility] Sep 08, 2013 07:48 AM FORMER TOBACCO USER 7Y OR GREATE R [facility] July 09, 2012 09:20 AM FORMER TOBACCO USE >1Y <7Y [facility] Jun 06, 2011 07:53 AM FORMER TOBACCO USE >1Y <7Y [facility] Sep 09, 2009 03:03 PM FORMER TOBACCO USE >1Y <7Y [facility] Aug 11, 2008 01:06 PM FORMER TOBACCO USE <1Y [facility] Sep 19, 2007 02:52 PM CURRENT TOBACCO USER [facility] Sep 03, 2006 03:32 PM CURRENT TOBACCO USER [facility] Advance Directives: All historical and current Section Date Range: From patient's date of to the date document was created. This section includes ALL of a patient's completed or amended [place] Advance and Rescinded Directives. The entries below indicate that a directive exists for the patient, but an actual copy is not included with this document. The data comes from all [facility]. Date Advance Directives Provider Source Mar [...] the Encounter. The data comes from all [place] treatment facilities. Date/Time Radiology Report Provider Source Aug 23, 2022 01:11 PM MRI-BRAIN (P): BERNARDMARYJO [id number] -[id number] M Exm Date: AUG 23, 2022@13:11 Req Phys: Serena ESQUIVEL Pat Loc: [facility] EMERGENCY DEPT WALK-IN (Re Img Loc: MRI IMAGING Service: Unknown (Case [id number] COMPLETE) MRI BRAINBRAINSTEM W & W/O CONTRA(MRI Detailed) CPT:13931 Contrast Media : Gadolinium Reason for Study: APHASIA X3 DAYS Clinical History: MRI BRAIN WITH/WITHOUT CONTRAST [place] IS NOT under investigation for COVID-19 or is COVID-19 negative Did the ordering provider speak with a oracle webcenter consultant regarding this imaging exam? Yes, Name of [employer] webcenter consultant (resident or staff):Neurology Aphasia x 3 days Responsible provider name and phone number to notify for critical findings if other than user placing the order and pager listed below: User placing orders pager: [phone] LAST CREATININE 0.8 (08/23/22) Allergies: HAZELNUTS (Nov 21, 2002) Report Status: Verified Date Reported: AUG 23, 2022 Date Verified: AUG 23, 2022 Pipe Insulator Helper E-Sig:/ES/TERESA SANTAMARIA MD Report: MRI BRAINBRAINSTEM W [...] in the left supratentorial compartment results in bedx-dw-takts midline shift again measuring up to 1.4 [...] intracranial mass effect, with rightward subfalcine herniation (ipkd-cc-wkejz midline shift measures up to 1.4 cm) [...] Primary Interpreting Staff: TERESA SANTAMARIA MD, RADIOLOGIST (Pipe Insulator Helper) /[facility] TERESA SANTAMARIA [facility] Aug 23, 2022 12:03 PM CTA CAROTID/COW (P ): MARYJO VARGAS [id number] -1950 [facility] Date: AUG 23, 2022@12:03 Req Phys: Serena ESQUIVEL Pat Loc: [facility] EMERGENCY DEPT WALK-IN (Re [facility] Loc: CT IMAGING Service: Unknown (Case [id number] COMPLETE) CTA HEAD W/POSTPROCESSING (CT Detailed) CPT:18845 Contrast Media : unspecified contrast media Reason for Study: APHASIAx3 days (Case 1532 COMPLETE) CTA NECK (CT Detailed) CPT:60969 Contrast Media : unspecified contrast media Non-ionic [...] pager listed below: User placing orders pager: [phone] [id number] LAST 3: Collection DT Specimen Test Name [...] PLASMA ESTIMATED GFR(eGF >60 Ref: >=60 Allergies: ([place] only) HAZELNUTS (Nov 21, 2002) To see allergies from all [facility] locations click Reports tab>Remote Data>All Available Sites>Clinical Reports>Allergies. Report Status: Verified Date Reported: AUG 23, 2022 Date Verified: AUG 23, 2022 Pipe Insulator Helper E-Sig:/ES/TERESA SANTAMARIA MD Report: CTA HEAD W/POSTPROCESSING, [...] contribute to left cerebral white matter edema. Adxx-ac-qekop midline shift measures up to 1.4 cm. [...] left lateral ventricle. Rightward subfalcine herniation, with nfhg-jn-yxthb midline shift measuring up to 1.4 cm. [...] 08/23/2022 at 1:27 PM. Primary Interpreting Staff: TREESA SANTAMARIA MD, RADIOLOGIST (Pipe Insulator Helper) /[facility] TERESA SANTAMARIA [facility] Aug 23, 2022 09:29 AM ELBOW LEFT 3 OR MO RE VIEWS: MARYJO VARGAS [id number] -1950 M Exm Date: AUG 23, 2022@09:29 Req Phys: FARZAD,LEIF T Pat Loc: [facility] ORTHO OT [facility] 2F (Req'g Img Loc: MAIN X-RAY Service: Unknown (Case [id number] COMPLETE) ELBOW LEFT 3 OR MORE VIEWS (RAD Detailed) CPT:81070 Reason for Study: postop Clinical History: IS NOT under investigation for COVID-19 or is COVID-19 negative postop Responsible provider name and phone number to notify for critical findings if other than user placing the order and pager listed below: User placing orders pager: [phone] LAST CREATININE 0.9 (07/19/22) Report Status: Verified Date Reported: AUG 23, 2022 Date Verified: AUG 23, 2022 Pipe Insulator Helper E-Sig:/ES/ALBINA LEE MD Report: Exam: Left elbow [...] Primary Interpreting Staff: ALBINA LEE MD, RADIOLOGIST (Pipe Insulator Helper) /ALBINA SALEH [facility] Encounter Notes: All associated encounter notes This section contains the clinical notes associated to the Encounter. Date/Time Encounter Note(s) Provider Source Aug 23, 2022 04:27 PM NEUROSURGERY ATTEN DING NOTE: LOCAL TITLE: NEUROSURGERY INPT PROGRESS NOTE STANDARD TITLE: NEUROSURGERY ATTENDING NOTE DATE OF NOTE: AUG 23, 2022@16:27 ENTRY DATE: AUG 23, 2022@16:27:32 AUTHOR: KEMAR ROUSE EXP COSIGNER: URGENCY: STATUS: COMPLETED Mr. Maryjo Vargas is a 72 yr old gentleman who Neurosurgery has been asked to see for new finding of left sided brain tumor. We have met with the patient and spouse. Patient has history of metastatic renal cancer diagnosed 5 years ago. He had opted for homeopathic treatment. Discussed brain tumor and reviewed images. Explored pt options for treatment and they are uncertain at the moment. They do agree to medication such as steriod to decrease swelling and antiseizure medication. Discussed with attending requesting they establish goals of care with pt and spouse. We will return this evening to explore further their wishes. Discussed with Dr. Jersey Woodard, who will do full consult . Exp and rec aphasia MIREILLE, EOMS intact Left mouth droop Left arm weak (recent surgery0 Full strength bilat lower extremities Toes downgoing, negative hoffmans Recommendation: Hold asa NPO for now Agree with Decadron Will order one time dose keppra Dr. Woodard will staff with Dr. Spring /sangita/ KEMAR ROUSE NP Signed: 08/23/2022 16:34 KEMAR ROUSE [facility] Aug 23, 2022 12:18 PM RADIOLOGY NOTE: LOCAL TITLE: RADIOLOGY CONTRAST NOTE STANDARD TITLE: RADIOLOGY NOTE DATE OF NOTE: AUG 23, 2022@12:18 ENTRY DATE: AUG 23, 2022@12:18:52 AUTHOR: ERROL GIBSON EXP COSIGNER: URGENCY: STATUS: COMPLETED Medical History: Previous reaction to IV contrast or Iodine(excluding topical): No Labs: Collection DT Specimen Test Name Result Units Ref Range 08/23/2022 11:16 PLASMA CREATININE 0.8 mg/dL 0.7 - 1.2 08/23/2022 11:16 PLASMA .CREAT EGFR(CKD-E >90 Ref: >=60 Exam Preparation: Consent obtained: Verbal informed consent Yes Contrast Administration: Adminstered IV contrast per CT protocol/MRI protocol IV non-ionic iodinated contrast media with saline flush Omnipaque 350 70 ml /sangita/ ERROL GIBSON RT(R)(CT) MERIT SYSTEM DIRECTOR (DRT) Signed: 08/23/2022 12:19 ERROL GIBSON [facility] Aug 23, 2022 11:44 AM PHYSICIAN EMERGENC Y DEPT NOTE: LOCAL TITLE: EMERGENCY DEPT NOTE STANDARD TITLE: PHYSICIAN EMERGENCY DEPT NOTE DATE OF NOTE: AUG 23, 2022@11:44 ENTRY DATE: AUG 23, 2022@11:44:23 AUTHOR: Serena ESQUIVEL EXP COSIGNER: URGENCY: STATUS: COMPLETED Personal Protective Equipment (PPE): Patient was in mask in exam room. MD/PA/TITLE I DIRECTOR used PPE during every encounter with the patient. Nurse's note reviewed as available. IM - Immunizations Immunization Series Date Facility Reaction Info TD (ADULT) 09/27/2015 [place] <C> TD(ADULT) UNSPECIFIED FORMULATION [place] [facility]* [facility] [place] [facility]* <C> See the Detailed Immunizations Health Summary Component DIM for Comments Chief Complaint: The patient is a 72 yo MALE complaining of: Aphasia History of present illness: The patient is a 72 yo MALE here with above. 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 He has an indwelling Morton catheter for urinary retention with outlet obstruction. History of malignant tumor on of kidney with mets to pancreas and bones; he is hemodynamically stable and in no acute distress. Allergies: HAZELNUTS (Nov 21, 2002) Review of Systems: A complete 10 point review of systems is negative unless otherwise noted in HPI or below. Past Medical History: Active problems - Computerized Problem List is the source for the followin. OBESITY, UNSP 2. LIVER CHEM, ABNORMAL 3. Adjustment Disorder with Mixed Anxiety and Depressed Mood 4. Other and unspecified Sleep Apnea 5. Elevated Prostate Specific Antigen (PSA) 6. Dysmetabolic Syndrome X 7. Polyp of colon (SNOMED CT [id number]) - 2011, repeat in 7-10 years, see report 8. Malignant tumor of prostate (SNOMED CT [id number]) 9. Benign hypertension 10. Retention of urine 11. Malignant tumor of kidney parenchyma 12. Multinodular goiter 13. Secondary malignant neoplasm of pancreas Habits: Medications: Active Outpatient Medications (excluding Supplies): Outpatient Medications Status 1) ASPIRIN 81MG EC TAB TAKE TWO TABLETS BY MOUTH EVERY ACTIVE DAY TO PREVENT BLOOD CLOTS TAKE UNTIL TOLD OKAY TO DISCONTINUE BY ORTHOPEDICS 2) LISINOPRIL 20MG TAB TAKE ONE TABLET BY MOUTH EVERY ACTIVE DAY FOR BLOOD PRESSURE 3) LUBRICATING TOP JELLY BACTERIOSTATIC APPLY JELLY ACTIVE TOPICALLY DIRECTED 4) NALOXONE HCL 4MG/SPRAY SOLN NASAL SPRAY SPRAY 1 DOSE ACTIVE IN ONE NOSTRIL NEEDED FOR UNRESPONSIVENESS THEN CALL 911 5) OXYCODONE 5MG TAB TAKE ONE TABLET BY MOUTH THREE ACTIVE TIMES A DAY NEEDED FOR PAIN Non-VA Medications Status 1) Non-VA ASPIRIN TAB 81MG MOUTH EVERY DAY ACTIVE 2) Non-VA CHONDROITIN CAP/TAB 1 TABLET TWICE A DAY ACTIVE 3) Non-VA GLUCOSAMINE CAP/TAB 1 TABLET TWICE A DAY ACTIVE 4) Non-VA MULTIVITAMIN CAP/TAB 1 TABLET MOUTH EVERY DAY ACTIVE 9 Total Medications Physical Exam Temp: 98.2 F 36.8 C (08/23/2022 10:34) Blood Pressure: 128/72 (08/23/2022 10:34) Heart Rate: 63 (08/23/2022 10:34) Resps: 16 (08/13/2022 18:16) O2: 94% (08/23/2022 10:34) General: NAD, alert and conversant Head: NC/AT Eyes:PERRL/EOMI/no facial asymmetry ENT: Oropharynx clear Neck: supple/no JVD Cardiovascular: RRR s1s2 no m/r/g Respiratory: Lungs - CTAB without crackles or wheezes Abdominal: s/nt/nd +BS Neuro: alert, grossly nonfocal except for aphasia , confusion and RLE weakness Extremities: no BLE edema Skin: warm and dry Ekg Interpretation: Pending Last 48 Hrs Lab Results from: AUG 23, 2022 11:44 Reporting Lab: [facility] [CLIA# [id number]] [place] [address] Report Released Date/Time: Aug 23, 2022@12:37 Provider: Serena ESQUIVEL Specimen: BLOOD. [id number] Specimen Collection Date: Aug 23, 2022@11:16 Test name Result units Ref. range Site Code HEMOGLOBIN A1C 4.2 % 4.0 - 6.0 [618] Eval: Patients with abnormally high levels of HbF or other rare Hb variants Eval: could have inaccurate A1c results due to method specific analytical Eval: interference. Comment: Values obtained from A1C measurements can vary. For typical A1C assays, a reported value of 7.0 could actually be between 6.7 and 7.3 if measured by a reference method. A reported value of 9.0 could actually be between 8.7 and 9.3. Ref: http://www.ngsp.org/CAPdata .asp Reporting Lab: [facility] [CLIA# [id number]] [place] [address] Report Released Date/Time: Aug 23, 2022@11:44 Provider: Serena ESQUIVEL Specimen: SERUM. [id number] Specimen Collection Date: Aug 23, 2022@11:16 Test name Result units Ref. range Site Code C-REACTIVE PROTEIN 3.14 mg/L Ref: <=5.00 [618] Reporting Lab: [facility] [CLIA# [id number]] [place] [address] Report Released Date/Time: Aug 23, 2022@12:17 Provider: Serena ESQUIVEL Specimen: BLOOD. [id number] Specimen Collection Date: Aug 23, 2022@11:16 Test name Result units Ref. range Site Code SED RATE 31 H mm/hr 5 - 15 [618] Reporting Lab: [facility] [CLIA# [id number]] [place] [address] Report Released Date/Time: Aug 23, 2022@11:27 Provider: Serena ESQUIVEL Specimen: BLOOD. [id number] Specimen Collection Date: Aug 23, 2022@11:16 Test name Result units Ref. range Site Code WBC 5.11 K/cmm 4.0 - 11.0 [618] RBC 3.87 L M/cmm 4.6 - 6.2 [618] HGB 11.9 L g/dL 13.5 - 17.9 [618] HCT 35.7 L % 41 - 54 [618] MCV 92.2 fL 80 - 100 [618] MCH 30.7 pg 27 - 33 [618] MCHC 33.3 g/dL 32.0 - 37.5 [618] RDW 14.1 % 11.5 - 14.5 [618] PLT 190 K/cmm 150 - 400 [618] MPV 9.3 fL 7.4 - 10.4 [618] NEUT 73.3 % [618] LYMPHS 12.7 % [618] MONO 10.8 % [618] EOSINO 2.2 % [618] BASO 0.6 % [618] IG(META,MYELO,PRO) 0.4 % [618] ABS NEUT 3.75 K/cmm 2.0 - 7.7 [618] ABS LYMPH 0.65 L K/cmm 1.0 - 4.0 [618] ABS MONO 0.55 K/cmm 0.1 - 1.0 [618] ABS EOS 0.11 K/cmm 0 - 0.5 [618] ABS BASO 0.03 K/cmm 0 - 0.2 [618] ABS IMMATURE GRAN 0.02 K/UL 0 - 0.1 [618] Comment: Automated Differential Performed Reporting Lab: [facility] [CLIA# [id number]] [place] [address] Report Released Date/Time: Aug 23, 2022@11:32 Provider: Serena ESQUIVEL Specimen: PLASMA. NM [id number] Specimen Collection Date: Aug 23, 2022@11:16 Test name Result units Ref. range Site Code .PT 11.4 sec 9.4 - 12.5 [618] .INR 1.0 0.8 - 1.1 [618] Eval: Suggested INR therapeutic range for most conditions is 2-3 except for Eval: patients with various prosthetic devices or unless otherwise noted in Eval: health record. APTT 30.2 sec 25.1 - 36.5 [618] Eval: Studies have suggested that patients with COVID-19 may have Eval: elevated PTT levels. Heparin monitoring with PTT in these Eval: patients may be inaccurate. If your patient has COVID-19 Eval: and needs heparin per protocol for therapeutic anticoagulation, Eval: please discuss using Xa levels for monitoring via protocol. Reporting Lab: [facility] [CLIA# [id number]] [place] [address] Report Released Date/Time: Aug 23, 2022@11:41 Provider: Serena ESQUIVEL Specimen: PLASMA. [id number] Specimen Collection Date: Aug 23, 2022@11:16 Test name Result units Ref. range Site Code CARDIAC TROPONIN I <0.028 ng/mL Ref: <=0.028 [618] Eval: The 99th percentile for Troponin I in a healthy population is 0.028 ng/ml. Reporting Lab: [facility] [CLIA# [id number]] [place] [address] Report Released Date/Time: Aug 23, 2022@12:09 Provider: Serena ESQUIVEL Specimen: PLASMA. [id number] Specimen Collection Date: Aug 23, 2022@11:16 Test name Result units Ref. range Site Code .CREAT EGFR(CKD-EPI) >90 Ref: >=60 [618] Eval: The eGFR generally decreases with age and in the general population, an Eval: eGFR >60mL/min/1.73 m2 in the absence of increased urine albumin excretion Eval: or structural abnormalities does not represent CKD. Eval: Eval: CKD is diagnosed based on abnormalities of kidney structure or function, Eval: present for >3 months, with implications for health and disease. CKD is Eval: classified and staged based on cause, eGFR, and albuminuria (quantified as Eval: urine albumin to creatinine ratio). Eval: Eval: Below are the eGFR cut off values for CKD stages: Eval: ____ Eval: eGFR (mL/min/1.73 1.73 m2) CKD stage Interpretation Eval: >=90 G1 Normal Eval: 60-89 G2 Mild decrease Eval: 45-59 G3A Mild to moderate decrease Eval: 30-44 G3B Moderate to severe decrease Eval: 15-29 G4 Severe decrease Eval: <15 G5 Kidney failure TSH 1.54 uIU/mL 0.35 - 4.94 [618] SODIUM 140 mmol/L 136 - 145 [618] POTASSIUM 4.3 mmol/L 3.5 - 5.1 [618] Eval: Serum potassium results are generally 5% higher than plasma. CHLORIDE 107 mmol/L 98 - 107 [618] CO2 26 mmol/L 22 - 29 [618] Eval: To calculate Anion Gap use (Na)-[(Cl)+CO2] ANION GAP 7 mmol/L 5 - 15 [618] GLUCOSE 101 H mg/dL 70 - 100 [618] Eval: Reference Range is based on fasting specimen. Eval: Patients taking Sulfasalazine may see a negative bias on Glucose Eval: levels. UREA NITROGEN 15 mg/dL 8 - 26 [618] CREATININE 0.8 mg/dL 0.7 - 1.2 [618] PROTEIN,TOTAL 6.8 g/dL 6.0 - 8.3 [618] Eval: Plasma values are generally 0.3 to 0.5 g/dL higher than serum values. ALBUMIN 3.8 g/dL 3.5 - 5.2 [618] CALCIUM 9.2 mg/dL 8.4 - 10.2 [618] MAGNESIUM 2.3 mg/dL 1.6 - 2.6 [618] PHOSPHORUS 3.9 mg/dL 2.3 - 4.7 [618] BILIRUBIN, TOTAL 0.7 mg/dL 0.2 - 1.2 [618] ALKALINE PHOSPHATASE 98 U/L 40 - 150 [618] AST/SGOT 15 U/L Ref: <=34 [618] Eval: Patients taking Sulfasalazine may see a negative bias on AST levels ALT/SGPT 12 U/L Ref: <=55 [618] Eval: Patients taking Sulfasalazine may see a negative bias on ALT levels CHOLESTEROL 129 mg/dL Ref: <=199 [618] Eval: Guidelines established by National Cholesterol Education Program Eval: Desirable <200 mg/dL Eval: Borderline High 200-239 mg/dL Eval: High >=240 mg/dL TRIG(NON FASTING) 123 mg/dL Ref: <=149 [618] Eval: Guidelines established by National Cholesterol Education Program Eval: Normal <150 mg/dL Eval: Borderline High 150-199 mg/dL Eval: High 200-499 mg/dL Eval: Very High >/=500 mg/dL Eval: REFERENCE RANGE BASED ON FASTING SPECIMEN .HDL 36 L mg/dL Ref: >=40 [618] Eval: Guidelines established by National Cholesterol Education Program: Eval: HDL >= 60 mg/dL is considered a negative risk factor for heart disease. LDL CALCULATION 68 mg/dL Ref: <=99 [618] Eval: Based on the National Cholesterol Education Guidelines, Eval: optimal level for LDL is <100 mg/dl. VLDL CALCULATION 25 mg/dL Ref: <=29 [618] Eval: Reference range is dependent on multiple factors. NON HDL CHOLESTEROL 93 mg/dL Ref: <=129 [618] Eval: Desirable level for Non HDL Cholesterol is < 130 mg/dL Eval: Non HDL Cholesterol = total cholesterol minus HDL. Eval: It includes all apo B containing lipoproteins, Eval: including remnants. It is not affected by fasting. Eval: ([facility] [id number],1994) Reporting Lab: [facility] [CLIA# [id number]] [place] [address] Report Released Date/Time: Aug 23, 2022@11:16 Provider: LAVONNE PANCHAL Specimen: BLOOD. IST [id number] Specimen Collection Date: Aug 23, 2022@11:14 Test name Result units Ref. range Site Code POC CREATININE 0.8 mg/dL 0.6 - 1.3 [618] Imaging: Report: MRI BRAINBRAINSTEM W & W/O CONTRAST [...] in the left supratentorial compartment results in dogw-we-ngnth midline shift again measuring up to 1.4 [...] intracranial mass effect, with rightward subfalcine herniation ([id number]-zd-[id number] midline shift measures up to 1.4 cm) [...] least moderately suboptimal due to motion artifact. Report: CTA HEAD W/POSTPROCESSING, CTA NECK 08/23/2022 [...] contribute to left cerebral white matter edema. Sccy-ec-lenkg midline shift measures up to 1.4 cm. [...] left lateral ventricle. Rightward subfalcine herniation, with omgf-um-pblca midline shift measuring up to 1.4 cm. [...] to severe, 60-80% stenosis; severe, 70-99% stenosis. 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 He has an indwelling Morton catheter for urinary retention with outlet obstruction. History of malignant tumor on of kidney with mets to pancreas and bones; he is hemodynamically stable and in no acute distress. Exam is revealing for aphasia, confusion, left lower extremity weakness; labs are unremarkable but CTA of head and neck as well as MRI of brain with and without contrast are concerning for metastatic disease This case was discussed with both the on-call team for neurology and neurosurgery... Please refer to their consult note with recommendation to admit patient to medicine service and patient was signed out to [place] [id number] for admission to acute medicine service. Patient is currently followed by oncology or palliative care should be involved as patient is saying now that he does not want anything to be done from this point on. ED Course/Medical Decision Making/Assessment: CPRS Notes/Labs Reviewed for Patient Encounter: Emergency department triage, emergency department nursing note. Diagnosis and Plan: #Secondary Malignant Neoplasm of the Brain -admit to Medicine Service as per Neurology/Neurosurgery ==> Dexamethasone 4mg IV now Disposition:Medicine service and signed out to [place] [id number] for admission /es/ S DREW ESQUIVEL MD STAFF PHYSICIAN Signed: 08/23/2022 19:21 Receipt Acknowledged By: * AWAITING SIGNATURE * JUANY WYNN S FOLLEY [facility] Aug 23, 2022 10:36 AM NURSING EMERGENCY DEPT TRIAGE NOTE: LOCAL TITLE: EMERGENCY DEPARTMENT NURSING TRIAGE NOTE STANDARD TITLE: NURSING EMERGENCY DEPT TRIAGE NOTE DATE OF NOTE: AUG 23, 2022@10:36 ENTRY DATE: AUG 23, 2022@10:36:23 AUTHOR: DAVONTE OLIVO EXP COSIGNER: URGENCY: STATUS: COMPLETED Emergency Department/Urgent Care Center Triage Patient age:72 Sex: MALE On arrival patient was: WHEELCHAIR Patient phone number: [phone] Allergies: HAZELNUTS (Nov 21, 2002) Subjective/Chief Complaint: pt presents from ortho clinic with for word finding difficulty x 3 days Objective: word salad, yes no answers conversation. VSS. pt reports slight headache, denies blurry vision. per his R leg appears a little weaker x 3 days as well too. The patient is not a fall risk. Vital Signs * Blood Pressure: 128/72 (08/23/2022 10:34) Heart Rate: 63 (08/23/2022 10:34) Respirations: 16 (08/13/2022 18:16) Temperature: 98.2 F [36.8 C] (08/23/2022 10:34) Pain: 9 (08/13/2022 18:16) Weight: 245 lb [111.13 kg] (07/28/2022 10:23) O2 Sats: 94% (08/23/2022 10:34) Emergency Severity Index (DANE) level Level 3 Current Medications: Active Outpatient Medications (including Supplies): Active Outpatient Medications Status 1) ASPIRIN 81MG EC TAB TAKE TWO TABLETS BY MOUTH EVERY ACTIVE DAY TO PREVENT BLOOD CLOTS TAKE UNTIL TOLD OKAY TO DISCONTINUE BY ORTHOPEDICS 2) CATHETER,SELF-CATH COUDE 14FR COLO#[id number] USE CATHETER ACTIVE TOPICALLY DIRECTED 3) LISINOPRIL 20MG TAB TAKE ONE TABLET BY MOUTH EVERY ACTIVE DAY FOR BLOOD PRESSURE 4) LUBRICATING TOP JELLY BACTERIOSTATIC APPLY JELLY ACTIVE TOPICALLY DIRECTED 5) NALOXONE HCL 4MG/SPRAY SOLN NASAL SPRAY SPRAY 1 DOSE ACTIVE IN ONE NOSTRIL NEEDED FOR UNRESPONSIVENESS THEN CALL 911 6) OXYCODONE 5MG TAB TAKE ONE TABLET BY MOUTH THREE ACTIVE TIMES A DAY NEEDED FOR PAIN Active Non-VA Medications Status 1) Non-VA ASPIRIN TAB 81MG MOUTH EVERY DAY ACTIVE 2) Non-VA CHONDROITIN CAP/TAB 1 TABLET TWICE A DAY ACTIVE 3) Non-VA GLUCOSAMINE CAP/TAB 1 TABLET TWICE A DAY ACTIVE 4) Non-VA MULTIVITAMIN CAP/TAB 1 TABLET MOUTH EVERY DAY ACTIVE 10 Total Medications Current Problems: OBESITY, UNSP (ICD-9-CM 278.00) LIVER CHEM, ABNORMAL (ICD-9-CM 790.5) Adjustment Disorder with Mixed Anxiety aOther and unspecified Sleep Apnea (ICD-9-CM 780.57) Elevated Prostate Specific Antigen (PSA)Dysmetabolic Syndrome X (ICD-9-CM 277.7) Polyp of colon (SCT 57601414) Malignant tumor of prostate (SCT 496715949) Benign hypertension (SCT 50243561) Retention of urine (SCT 570769410) Malignant tumor of kidney parenchyma (SCMultinodular goiter ([facility] [id number]) Secondary malignant neoplasm of pancreas Identification of Seniors at Risk (ISAR):* Defer screen 72 yrs Coronavirus Disease 2019 (COVID-19) Screen The patient [...] negative. Result: Screen is negative. Suicide Screen: [place] Suicide Severity Rating Scale (C-SSRS) screener 1. [...] due to responses to other questions. /sangita/ DAVONTE OLIVO REGISTERED NURSE Signed: 08/23/2022 10:38 DAVONTE OLIVO [facility]
--- OUTSIDE RECORDS SUMMARY | 2023-03-24 08:32 | XMS_ITS ---
HOSPITALIZATION [facility] Encounter Summary Created on: March 24, 2023 MARYJO VARGAS : 1950 Sex: Male 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 Address [address] [place] [id number] Support Name Relationship Address Phone DOREEN VARGAS Next of Kin [address] [place] [phone] DOREEN Emergency Contact [address] [place] [phone] Insurance Providers: All historical and current [...] Name Patient's Relationship to Policy [place] [employer] [facility] (WNR) MEDICARE ADVANTAGE [facility] (R) June 26, 2016 [id number] BERNARDJOAN SHELLEY PATIENT [employer] [facility] (WNR) MEDICARE ADVANTAGE [facility] ([facility]) June 26, 2016 [id number] JOAN VARGAS KARSTEN PATIENT [employer] [facility] (WNR) MEDICARE ADVANTAGE [facility] (R) June 26, 2016 [id number] [phone] JOAN VAGRAS PATIENT Selected Encounter This section includes the information on record at [place] for the Encounter. Date/Time Encounter Type Encounter Description Reason Pro vider Source Aug 23, 2022 04:51 PM Inpatient Visit HOSPITALIZATION ICD-10-CM M84.522D Path fx in neopltc dis, l humerus, subs for fx w routn heal TEAM,MED FOUR IHE Encounter Template Text not used by [place] Assessments - Encounter Diagnoses This section includes the primary and secondary diagnoses documented for the Encounter. Date/Time Primary/Secondary Diagnosis Diagnosis Name Provider Source Aug 24, 2022 12:50 PM Diagnosis for Length of Stay Secondary malignant neoplasm of brain [facility] Aug 24, 2022 12:50 PM SECONDARY Aphasia [facility] Aug 24, 2022 12:50 PM SECONDARY Mariscal's palsy [facility] Aug 24, 2022 12:50 PM SECONDARY Do not resuscitate [facility] Aug 24, 2022 12:50 PM SECONDARY Encounter for palliative care [facility] Aug 24, 2022 12:50 PM SECONDARY Essential (primary) hypertension [facility] Aug 24, 2022 12:50 PM SECONDARY Hyperlipidemia, unspecified [facility] Aug 24, 2022 12:50 PM SECONDARY Malignant neoplasm of left kidney, except renal pelvis [facility] Aug 24, 2022 12:50 PM SECONDARY Malignant neoplasm of prostate [facility] Aug 24, 2022 12:50 PM SECONDARY Other retention of urine [facility] Aug 24, 2022 12:50 PM SECONDARY Path fx in neopltc dis, l humerus, subs for fx w routn heal [facility] Aug 24, 2022 12:50 PM SECONDARY Secondary malignant neoplasm of bone [facility] Aug 24, 2022 12:50 PM SECONDARY Secondary malignant neoplasm of other digestive organs [facility] Plan of Treatment: Future Appointments (+ 6 months) and Future Tests (+/- 45 days) The Plan of Treatment section includes future care activities for the patient from all [facility]. This section includes future appointments and future orders which are active, pending or scheduled. Future Appointments This section includes appointments that were scheduled to occur 6 months from the date of the Encounter, up to a maximum of 20 appointments. The data comes from all [facility]. Appointment Date/Time Appointment Type Appointme nt Facility Name Sep 06, 2022 10:15 AM AMBULATORY - SURGERY [facility] Oct 25, 2022 07:00 AM AMBULATORY - NONE [facility] Oct 25, 2022 07:30 AM AMBULATORY - SURGERY [facility] Oct 25, 2022 09:00 AM AMBULATORY - SURGERY [facility] Active, Pending, and Scheduled Orders This section includes a listing of several types of active, pending, and scheduled orders, including clinic medications orders, diagnostic test orders, procedure orders and consult orders; where the start date of the order is 45 days before the date of the Encounter or 45 days after the date of theEncounter. The data comes from all [facility]. Test Date/Time Test Type Test Details Facility Name July 14, 2022 12:00 AM Laboratory - Blood Bank Order ABO/RH - LAB BLOOD [facility] July 14, 2022 02:05 PM Laboratory - Blood Bank Order TYPE & SCREEN - LAB BLOOD [facility] Aug 07, 2022 11:23 AM Laboratory - Chemi stry Order DRUG SCREEN PANEL,URINE URINE ONCE [facility] Aug 23, 2022 10:47 AM Laboratory - Chemi stry Order URINALYSIS URINE ER STAT [facility] Lab Results: +/- 30 days of the encounter This section includes the Chemistry and Hematology Lab Results on record with [place] for the patient. Radiology Reports and Pathology Reports are provided separately, in subsequent sections. Lab Results This section contains the Chemistry/Hematology Results that were resulted 30 days before or 30 daysafter the date of the Encounter. Date/Time Source Result Type Result - Unit Interpretation Reference Range Comment Aug 24, 2022 12:15 PM [facility] URINALYSIS Specimen Type: URINE No comment entered. Ordering Provider: LUCIO KIM Report Released Date/Time: Aug 24, 2022 09:34 AM Reporting Lab: [facility] [id number] Performing Lab: [facility] [id number] URINE COLOR YELLOW SPECIFIC GRAVITY 1.030 1.003-1.03 [...] See_Commen t Aug 23, 2022 11:16 AM [facility] PROTHROMBIN TIME/INR Specimen Type: PLASMA No comment entered. Ordering Provider: Serena ESQUIVEL Report Released Date/Time: Aug 23, 2022 10:47 AM Aug 23, 2022 11:16 AM [facility] ACT PART THROMBO TIME Specimen Type: PLASMA No comment entered. Ordering Provider: Serena ESQUIVEL Report Released Date/Time: Aug 23, 2022 10:47 AM Reporting Lab: [facility] [id number] Performing Lab: [facility] [id number] APTT 30.2 25.1-36.5 Aug 23, 2022 11:16 AM [facility] TSH W/REFLEX TO FREE T4 Specimen Type: PLASMA No comment entered. Ordering Provider: Serena ESQUIVEL Report Released Date/Time: Aug 23, 2022 10:47 AM Reporting Lab: [facility] [id number] Performing Lab: [facility] [address] TSH 1.54 0.35-4.94 Aug 23, 2022 11:16 AM [facility] LIPID PANEL,NON-FASTING Specimen Type: PLASMA No comment entered. Ordering Provider: Serena ESQUIVEL Report Released Date/Time: Aug 23, 2022 10:47 AM Reporting Lab: [facility] [address] Performing Lab: [facility] [phone] CHOLESTEROL 129 See_Comm en t .HDL 36 L See_Commen t LDL CALCULATION 68 See_ Commen t VLDL CALCULATION 25 See_Commen t NON HDL CHOLESTEROL 93 See_Commen t TRIG(NON FASTING) 123 See_Commen t Aug 23, 2022 11:16 AM [facility] CARDIAC TROPONIN I Specimen Type: PLASMA No comment entered. Ordering Provider: Serena ESQUIVEL Report Released Date/Time: Aug 23, 2022 10:47 AM Reporting Lab: [facility] [phone] Performing Lab: [facility] [address] CARDIAC TROPONIN I <0.028 See_Commen t Aug 23, 2022 11:16 AM [facility] SED RATE Specimen Type: BLOOD No comment entered. Ordering Provider: Serena ESQUIVEL Report Released Date/Time: Aug 23, 2022 10:47 AM Reporting Lab: [facility] [id number] Performing Lab: [facility] [phone] SED RATE 31 H 5-15 Aug 23, 2022 11:16 AM [facility] PHOSPHORUS Specimen Type: PLASMA No comment entered. Ordering Provider: Serena ESQUIVEL Report Released Date/Time: Aug 23, 2022 10:47 AM Reporting Lab: [facility] [phone] Performing Lab: [facility] [id number] PHOSPHORUS 3.9 2.3-4.7 Aug 23, 2022 11:16 AM [facility] C-REACTIVE PROTEIN Specimen Type: SERUM No comment entered. Ordering Provider: Serena ESQUIVEL Report Released Date/Time: Aug 23, 2022 10:47 AM Reporting Lab: [facility] [address] Performing Lab: [facility] [phone] C-REACTIVE PROTEIN 3.14 See_Commen t Aug 23, 2022 11:16 AM [facility] COMPREHENSIVE METABOLIC PANEL+MG Specimen Type: PLASMA No comment entered. Ordering Provider: Serena ESQUIVEL Report Released Date/Time: Aug 23, 2022 10:47 AM Reporting Lab: [facility] [phone] Performing Lab: [facility] [address] CREATININE 0.8 0.7-1.2 UREA NITROGEN 15 8-26 [...] See_Commen t Aug 23, 2022 11:16 AM [facility] HEMOGLOBIN A1C Specimen Type: BLOOD [...] Aug 23, 2022 10:47 AM Reporting Lab: [facility] [phone] Performing Lab: [facility] [address] HEMOGLOBIN A1C 4.2 4.0-6.0 Aug 23, 2022 11:16 AM [facility] CBC & DIFF Specimen Type: BLOOD Comment: Automated Differential Performed Ordering Provider: Serena ESQUIVEL Report Released Date/Time: Aug 23, 2022 10:47 AM Reporting Lab: [facility] [phone] Performing Lab: [facility] [phone] WBC 5.11 4.0-11.0 RBC 3.87 L 4.6-6.2 [...] 0.02 0-0.1 Aug 23, 2022 11:14 AM [facility] POC CREATININE Specimen Type: BLOOD No comment entered. Ordering Provider: LAVONNE PANCHAL Report Released Date/Time: Aug 23, 2022 11:16 AM Reporting Lab: [facility] [phone] Performing Lab: [facility] [address] POC CREATININE 0.8 0.6-1.3 Vital Signs: All taken on the encounter date This section contains inpatient and outpatient Vital Signs collected on the date of the Encounter. Date/Time Temperature Pulse Blood Pressure Respiratory Rate SP02 Pain Height Weight Body Mass Index Source Aug 23, 2022 10:34 AM 98.2 F 63 /min 128/72 mm[Hg] 94 % [facility] Social History: Smoking Status (Most current) and Tobacco Use (All prior to encounter date) This section includes the most current, and the historical, smoking and tobacco- related health factors from the [place] facility where the Encounter took place. Current Smoking Status This section includes the most current smoking, or tobacco-related health factor, from the [place] facility where the Encounter took place. Date/Time Current Smoking Status Comment Facil ity May 10, 2022 09:15 AM VA-TOBACCO QUIT 15 YRS OR MORE [facility] Tobacco Use History This section includes a history of the smoking, or tobacco-related health factors, that were collected on or before the date of the Encounter. The data comes from the [place] facility where the Encounter took place. Date/Time Smoking Status/Tobacco Use Comment F acility May 10, 2022 09:15 AM VA-TOBACCO QUIT 15 YRS OR MORE [facility] May 11, 2021 09:15 AM VA-TOBACCO FORMER USER [facility] May 11, 2021 09:15 AM VA-TOBACCO QUIT 15 YRS OR MORE [facility] Nov 22, 2018 01:36 PM VA-TOBACCO NEVER USED [facility] Nov 12, 2017 07:35 AM FORMER TOBACCO USER 7Y OR GREATE R [facility] Nov 06, 2016 09:05 AM FORMER TOBACCO USER 7Y OR GREATE R [facility] Sep 27, 2015 09:42 AM FORMER TOBACCO USER 7Y OR GREATE R [facility] Sep 25, 2014 07:55 AM FORMER TOBACCO USER 7Y OR GREATE R [facility] Sep 08, 2013 07:48 AM FORMER TOBACCO USER 7Y OR GREATE R [facility] July 09, 2012 09:20 AM FORMER TOBACCO USE >1Y <7Y [facility] Jun 06, 2011 07:53 AM FORMER TOBACCO USE >1Y <7Y [facility] Sep 09, 2009 03:03 PM FORMER TOBACCO USE >1Y <7Y [facility] Aug 11, 2008 01:06 PM FORMER TOBACCO USE <1Y [facility] Sep 19, 2007 02:52 PM CURRENT TOBACCO USER [facility] Sep 03, 2006 03:32 PM CURRENT TOBACCO USER [facility] Advance Directives: All historical and current Section Date Range: From patient's date of to the date document was created. This section includes ALL of a patient's completed or amended [place] Advance and Rescinded Directives. The entries below indicate that a directive exists for the patient, but an actual copy is not included with this document. The data comes from all [place] facilities. Date Advance Directives Provider Source Mar 18, 2003 ADVANCE DIRECTIVE FARHAT MELGAR [facility] Radiology Reports: +/- 30 days of [...] the Encounter. The data comes from all [place] treatment facilities. Date/Time Radiology Report Provider Source Aug 23, 2022 01:11 PM MRI-BRAIN (P): MARYJO VARGAS [id number] -1950 M Exm Date: AUG 23, 2022@13:11 Req Phys: Serena ESQUIVEL Loc: [facility] EMERGENCY DEPT WALK-IN (Re [facility] [place] Loc: MRI IMAGING Service: Unknown (Case [id number] COMPLETE) MRI BRAINBRAINSTEM W & W/O CONTRA(MRI Detailed) CPT:05151 Contrast Media : Gadolinium Reason for Study: APHASIA X3 DAYS Clinical History: MRI BRAIN WITH/WITHOUT CONTRAST IS NOT under investigation for COVID-19 or is COVID-19 negative Did the ordering provider speak with a banking consultant regarding this imaging exam? Yes, Name of banking consultant (resident or staff):Neurology Aphasia x 3 days Responsible provider name and phone number to notify for critical findings if other than user placing the order and pager listed below: User placing orders pager: [phone] [id number] LAST CREATININE 0.8 (08/23/22) Allergies: HAZELNUTS (Nov 21, 2002) Report Status: Verified Date Reported: AUG 23, 2022 Date Verified: AUG 23, 2022 Building Guard Deputy Sheriff E-Sig:/ES/TERESA SANTAMARIA MD Report: MRI BRAINBRAINSTEM W [...] in the left supratentorial compartment results in qzlw-pf-pnogn midline shift again measuring up to 1.4 [...] intracranial mass effect, with rightward subfalcine herniation (qeie-wl-njovt midline shift measures up to 1.4 cm) [...] Primary Interpreting Staff: TERESA SANTAMARIA MD, RADIOLOGIST (Building Guard Deputy Sheriff) /[facility] TERESA SANTAMARIA [facility] Aug 23, 2022 12:03 PM CTA CAROTID/COW (P ): MARYJO VARGAS [id number] -1950 M Exm Date: AUG 23, 2022@12:03 Req Phys: Serena ESQUIVEL Pat Loc: [facility] EMERGENCY DEPT WALK-IN (Re Im Loc: CT IMAGING Service: Unknown (Case [id number] COMPLETE) CTA HEAD W/POSTPROCESSING (CT Detailed) CPT:99910 Contrast Media : unspecified contrast media Reason for Study: APHASIAx3 days (Case [id number] COMPLETE) CTA NECK (CT Detailed) CPT:24361 Contrast Media : unspecified contrast media Non-ionic [...] pager listed below: User placing orders pager: [phone] [id number] LAST 3: Collection DT Specimen Test Name [...] PLASMA ESTIMATED GFR(eGF >60 Ref: >=60 Allergies: ([place] only) HAZELNUTS (Nov 21, 2002) To see allergies from all [place] locations click Reports tab>Remote Data>All Available Sites>Clinical Reports>Allergies. Report Status: Verified Date Reported: AUG 23, 2022 Date Verified: AUG 23, 2022 Building Guard Deputy Sheriff E-Sig:/ES/TERESA SANTAMARIA MD Report: CTA HEAD W/POSTPROCESSING, [...] contribute to left cerebral white matter edema. Hmoh-lk-cevmr midline shift measures up to 1.4 cm. [...] left lateral ventricle. Rightward subfalcine herniation, with keme-rl-kbqzz midline shift measuring up to 1.4 cm. [...] Primary Interpreting Staff: TERESA SANTAMARIA MD, RADIOLOGIST (Building Guard Deputy Sheriff) /[facility] TERESA SANTAMARIA [facility] Aug 23, 2022 09:29 AM ELBOW LEFT 3 OR MO RE VIEWS: MARYJO VARGAS [id number] -1950 M Ex Date: AUG 23, 2022@09:29 Req Phys: LEIF PANDA Loc: [facility] 2F (Req'g Img Loc: MAIN X-RAY Service: Unknown (Case [id number] COMPLETE) ELBOW LEFT 3 OR MORE VIEWS (RAD Detailed) CPT:17365 Reason for Study: postop Clinical History: IS NOT under investigation for COVID-19 or is COVID-19 negative postop Responsible provider name and phone number to notify for critical findings if other than user placing the order and pager listed below: User placing orders pager: [phone] LAST CREATININE 0.9 (07/19/22) Report Status: Verified Date Reported: AUG 23, 2022 Date Verified: AUG 23, 2022 Building Guard Deputy Sheriff E-Sig:/ES/ALBINA MARISCAL MD Report: Exam: Left elbow 3 views, [...] the left elbow. Primary Interpreting Staff: ALBINA MARISCAL MD, RADIOLOGIST (Building Guard Deputy Sheriff) /ALBINA SALEH [facility] Encounter Notes: All associated encounter notes This section contains the clinical notes associated to the Encounter. 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 But over the past 3 days difficulty finding words. He had also noted weakness of the right extremities. Patient has not been able to walk over the past 3 days. Family member attributed the word finding difficulties to oxycodone and discontinued it 2 days ago but without improvement of the word finding difficulty and weakness. He had headache yesterday but no swallowing difficulty, blurring of vision or abnormal body movement. He has not noticed numbness. Patient declined cancer directed ( chemo or surgery) treatment for both renal cell carcinoma and prostatic carcinoma and opted for homeopathic medicine and recently admitted with pathology fracture of the left humerus. 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 Declined cancer directed treatment (chemo or surgery) before. Presented with aphasia, right lower extremity weakness and inflammatory facial palsy and found not to have difficult brain metastasis. Palliative treatment with treatment of increased ICP prevention of seizure was started per goals of carefor now. Other cancer directed treatment is still not within 's goals of care. Based on 's preference hospice was consulted and patient was enrolled in hospice. Patient discharged home with home hospice -dexamethasone 4 mg at 6am and 12pm to decrease ICP -Keppra 500 mg p.o. twice daily prevent seizure -PJP prophylaxis with Bactrim 3 times per week -Calcitriol 0.25mg BID for bone -Pantoprazole 40 mg daily for stress ulcer -rest of care per home hospice #Recent hx of pathologic fracture of humerus s/p ORIF -Pain control with Tylenol and oxycodone #Hypertension Continue [employer] Lisinopril #Prostatic CA with urine retention on chronic wang continue wang EXAM AT THE TIME OF DISCHARGE: Temp: 98.2 F [36.8 C] (08/23/2022 10:34) Pulse: 63 (08/23/2022 10:34) BP: 128/72 (08/23/2022 10:34) Resp: 16 (08/13/2022 18:16) O2 sat: 94% (08/23/2022 10:34) General: Word finding difficulties Skin: No rash or bruise Head: AT/NC Eyes: PERRLA, EOMI Oral/Throat: Moist and clear. Neck/Thyroid: no JVD, no bruit Cardiac: RRR, No murmurs, gallops, rubs, S1 and S2 normal. Chest/Lungs: Bilaterally clear. Abdominal: Bowel sounds present, No distention, No tenderness. Extremities: No pedal edema. DP and PT + 2. Neurological: Patient oriented to self but not time and place. Orientation answers could be difficult due to patient's word finding difficulties. Appears to understand questions. Pupils are reactive. PERLL, EOMI. Mild infragenicular right sided facial palsy. Poer 5/5 in RUE and LLE, 4/5 in RLE, some weakness in the left upper extremity but difficult to assess in the setting of recent fracture. Sensory test was unreliable DISCHARGE INFORMATION: Disposition on discharge, diet, physical activity, and follow-up care orders are included in the discharge orders. Dispo: Home on home hospice Diet: Regular Physical activity: As tolerated Follow-up care: Per home hospice MEDICATION CHANGES: See the Pharmacy Medicine Reconciliation note for a complete medication list. START: -Dexamethasone 4 mg at 6 AM and 12 pM to decrease ICP -Keppra 500 mg p.o. twice daily to prevent seizure -Bactrim 1 DS 3 times weekly, for PJP prophylaxis -Calcitriol 0.25 mg for bone -Oxycodone 5 mg as needed for pain -Naloxone for oxycodone toxicity CHANGE: STOP: PERTINENT SOCIAL FACTORS: FOLLOW UP: With home hospice More than 30 minutes was spent on discharge management services and coordination of care for this . /sangita/ ANANT DOUGLAS RESIDENT PHYSICIAN Signed: 08/28/2022 16:59 /sangita/ CARLY DELEON MD Staff Physician Cosigned: 08/30/2022 08:46 ANANT DOUGLAS [facility] Aug 24, 2022 12:18 PM NURSING DISCHARGE NOTE: LOCAL TITLE: [facility] NURSING DISCHARGE SUMMARY STANDARD TITLE: NURSING DISCHARGE NOTE DATE OF NOTE: AUG 24, 2022@12:18 ENTRY DATE: AUG 24, 2022@12:18:28 AUTHOR: JOSE WELSH EXP COSIGNER: URGENCY: STATUS: COMPLETED Nursing Discharge Summary Home Discharge date and time: Jul @1245 Accompanied by: Self, Family Wheelchair Transportation: Other (specify): Verify that the Contact Name and Phone Number are correct: MARYJO VARGAS [phone] Condition: Alert to self Skin Condition: Intact Incision: No Education/Teach Back Patient and/or Caregiver was given sunshine information in discharge instruction and able to teach back verbally or by return demonstration. No, did not demonstrate understanding and needs reinforcement of content. Please comment: instructions given to . pt w encephalopathy and confusion Does patient have vascular access? Yes Peripheral IV Removed Does patient require assistance with outpatient visits due to cognitive limitations, mobility limitations, or has need for nursing assistance throughout the clinic day? Patient DOES NOT have an active BELINDA flag assigned. Yes Patient has support network to assist with outpatient visits: family, friends, Vets Home patients, [place] [facility] patients. *Patient does not qualify for BELINDA* /sangita/ JOSE WELSH RN REGISTERED NURSE Signed: 08/24/2022 12:54 JOSE WELSH [facility] Aug 24, 2022 11:30 AM EDUCATION DISCHARGE NOTE: LOCAL TITLE: EDUCATION NURSING DISCHARGE INSTRUCTIONS STANDARD TITLE: EDUCATION DISCHARGE NOTE DATE OF NOTE: AUG 24, 2022@11:30 ENTRY DATE: AUG 24, 2022@11:30:49 AUTHOR: JOSE WELSH EXP COSIGNER: URGENCY: STATUS: COMPLETED IMPORTANT PHONE NUMBERS: IF YOU HAVE A LIFE THREATENING EMERGENCY CALL 911 If you have questions about anything related to your inpatient care at the [facility] or your future care in the [facility], call the Call Center or After Hour numbers listed below. If you receive care at another [place] facility or with a community provider, you will need to call them for questions about your future care. -Call Center Sunday-Sunday, 7:30-4:30 at [phone] or Toll Free -After Hours- toll-free -Outpatient Pharmacy - -Verification of Appointments for the following month - *'S CRISIS LINE NUMBER IS (TALK)* Discharge from ICU, Acute Care, Acute Rehab, or CLC Patient and/or other caregiver has had an opportunity to participate in the development of the discharge plan. The patient had an opportunity to ask questions. Discharge Diagnosis: Metastatic Renal Cell Carcinoma with new brain metastases Discharge Condition: Poor Discharge Instructions: Hospice consult has been place; they will contact you for next steps. production support developer medications from pharmacy and take as directed. Primary Care Team: TINA PALACIO Primary Care Provider: JUANY WYNN Provider Completing Summary: Chloe Attending Physician: Riky You are being discharged to: Home Phone number you can be contacted at for the next 2 weeks: Your diet is regular Activity: You were identified as at risk for falling during your hospital stay. A copy of the Fall Prevention At Home pamphlet was given to and reviewed with the patient. When you go home you will need: Supplies: Catheter supplies: Wang Cathter exchanged 08/24 Leg bag Medication Patient instructed to berry picker medication in outpatient pharmacy Continuing care needs: If you receive care at [place] you will need to call the Primary Care Call Center number at [phone]. If you receive care at another [place] facility or community provider, you will need to call them to arrange your follow up care. Future appointments: 09/06/2022 10:[address] [facility] DENTAL TWINS 10/04/2022 13:[address] [facility] XRAY GENERAL AM 10/04/2022 14:[address] [facility] ORTHO FARZAD 10/25/2022 07:[address] [facility] LAB BLOOD DRAWING LAM 10/25/2022 09:[address] [facility] UROL CHIEF RES.2V A copy of these instructions has been given to: Patient & jacob IM - Immunizations Immunization Series Date Facility Reaction Info TD (ADULT) 09/27/2015 [facility]EI* <C> TD(ADULT) UNSPECIFIED FORMULATION Amanda cl* TDAP Oleksandr H* <C> See the Detailed Immunizations Health Summary Component[DIM] for Comments /es/ JOSE WELSH RN REGISTERED NURSE Signed: 08/24/2022 12:54 JSOE WELSH [facility] Aug 23, 2022 11:46 PM EMERGENCY DEPT NOTE: LOCAL TITLE: EMERGENCY DEPT BOARDER SHIFT NOTE STANDARD TITLE: EMERGENCY DEPT NOTE DATE OF NOTE: AUG 23, 2022@23:46 ENTRY DATE: AUG 23, 2022@23:46:33 AUTHOR: GHNASHYAM GARCIA EXP COSIGNER: URGENCY: STATUS: COMPLETED Nursing Shift Note Nursing care provided from [phone] Highlights from shift: Patient alert to self, [facility] but believes [facility] and that his family is on their way to pick him up. Patient tries to get OOB to meet his family. Patient cooperative with cares and can follow commands. Right arm and leg weak, some neglect noted on right side. SIERRA 3 mm, round, brisk. Patient has expressive aphasia, words are clear. Patient has chronic wang draining very dark, foul smelling urine. Patient not reliable to call for help as he is unsteady on his feet and is a moderate assist of 1-2 for transfers. Patient was quick and impulsive with movements. Bed alarm activated. He attempted to get OOB unassisted and was placed in a wheelchair x2 and came out to sit with staff at nurses station as he was so confused at to time and situation. Patient back in bed at the end of the tour with bed alarm activated. Took pantoprazole whole with sip of water. No cough or wet speech noted. No new needs identified. Continue to monitor. Admitting Diagnosis: AMS, BRAIN METS Blood Pressure: 128/72 (08/23/2022 10:34) Pulse: 63 (08/23/2022 10:34) Temperature: 98.2 F [36.8 C] (08/23/2022 10:34) Respiratory Rate: 16 (08/13/2022 18:16) Oxygen Saturation: 94% (08/23/2022 10:34) Delivery of Oxygen: Room Air Lung Sounds: Bilaterally clear Cough: None Secretions: Other: none Labs: TROPONIN - NONE FOUND POTASSIUM 4.3 (08/23/22) WBC 5.11 (08/23/22) HGB 11.9 L (08/23/22) Rhythm: Other: none See ICCA for detailed assessment, Education provided on medication/cares this shift as needed SKIN REINSPECTION/REASSESSMENT SKIN INSPECTION: Skin Color: Usual for ethnicity Skin Temperature: Warm Skin Moisture: Dry Skin Turgor: Non-Elastic INTERVENTIONS: No change in previous interventions as listed below No data available Localized abnormality: Scratches: Location(s): various scrapes,scratches, abraisons Skin Interventions performed this shift: Patient turned [id number] or as appropriate while in bed. Patient's heels elevated with pressure relief boots or pillows under calves. Device(s) removed and skin underneath was inspected. /sangita/ GHANSHYAM KHAN, RN REGISTERED NURSE Signed: 08/24/2022 08:00 GHANSHYAM GARCIA [facility] Aug 23, 2022 07:19 PM EMERGENCY DEPT NOTE: LOCAL TITLE: EMERGENCY DEPT BOARDER SHIFT NOTE STANDARD TITLE: EMERGENCY DEPT NOTE DATE OF NOTE: AUG 23, 2022@19:19 ENTRY DATE: AUG 23, 2022@19:19:25 AUTHOR: MARIYA MONTOYA EXP COSIGNER: URGENCY: STATUS: COMPLETED Temperature: 98.2 F [36.8 C] (08/23/2022 10:34) Blood Pressure: 128/72 (08/23/2022 10:34) Pulse: 63 (08/23/2022 10:34) Respiration: 16 (08/13/2022 18:16) Pain: 9 (08/13/2022 18:16) Situation: Recent BLE weakness R>L, RUE weakness and word finding difficulties. Discovered to have large brain mass during current admission Background: known renal cell carcinoma with mets, prostate ca Assessment: Pleasant and cooperative gentleman with word finding difficulties as reported. Government Instructor 4/5 and dorsi/plantarflex 4/5. Observed to have right side neglect until prompted to look or track towards the right. Did not attempt to stand or ambulate during tour, but able to make significant movements to reposition in litter. Able to make needs known when prompted and given time to form statements. Indicates that he has insight into prognosis, states he would like to be home. Thanks staff for his care. Recommendation: Palliative and hospice care to follow. Other: intact wang to leg bag, which was replaced /sangita/ MARIYA MONTOYA RETAIL ACCOUNT MANAGER NURSE Signed: 08/26/2022 08:06 MARIYA MONTOYA [facility] Aug 23, 2022 06:30 PM NEUROSURGERY CONSULT: LOCAL TITLE: NEUROSURGERY CONSULT STANDARD TITLE: NEUROSURGERY CONSULT DATE OF NOTE: AUG 23, 2022@18:30 ENTRY DATE: AUG 23, 2022@18:30:53 AUTHOR: TAMMY GOLDSTEIN EXP COSIGNER: URGENCY: STATUS: COMPLETED Neurosurgery consult note A 72 year old MALE history of RCC presented with about 3 days of aphasia and right side weakness found to have a large left brain mass. He was first diagnosed with RCC in 2018 and at that time he was told with chemo radiation and surgery his life expectance would be 18 months, and they elected survailence. Since then, he was found to have mets in the pancreas, spleen, and left humerus for which he had orthopedic procedure for pathological fx. Awake and alert dysarthria, word fidning difficult, object naming 1 out of 3, unable to repeat, able to pick right choice when given Extraocular muscles intact Symmetric brow lift, R tongue deviation, mild right droop 5/5 in L upper extremities (excpet shoulder and bicep given recent surgery) 5/5 in L lower extremities 4-/5 diffusely in the R upper and lower patellar hyperreflexia Unable to assess drift due to recent left arm surgery MRI brain showed a large left lateral ventricular CE mass with edema and MLS A/P: A 72 year old MALE history of RCC presented with about 3 days of aphasia and right side weakness found to have a left ventricular CE mass with edema likley mets. Had a discussion with and patient. Explained the possible role of surgical intervention ie removal the tumor to decrease the mass effect and hopefully improve the neurolglical symptoms. But ultimately, in the setting of no systemic chemo radiation, patient likely will pass from systemic illness. There is also the risk of worsening edema and mls may lead to obstructive hydrocephlaus causing rapid neurological decline. Neurosurigcal intervenions carry the risk of hemiplegia, paresthesia, worsening speech, and general surgical risk of bleeding, infection, etc. Patient and understand the risks and understand that in the setting of brain mass likely metastasis, and the risks of no surigcal intervention. They elected not to proceeed with any surgical intervenion. They are open to meet with [facility] emergency department care for goals of care discussion and open to receive medicaitons to manage the symptoms, and they understand that medications such as decadron carries its own side effects and may lose its effects in the future. Patient discussed with Dr. Mccarty /sangita/ TAMMY GOLDSTEIN MD Resident Signed: 08/23/2022 18:43 TAMMY GOLDSTEIN [facility] Aug 23, 2022 06:02 PM H & P NOTE: LOCAL TITLE: H&P HISTORY & PHYSICAL - MEDICINE STANDARD TITLE: H & P NOTE DATE OF NOTE: AUG 23, 2022@18:02 ENTRY DATE: AUG 23, 2022@18:03:21 AUTHOR: ANANT DOUGLAS EXP COSIGNER: URGENCY: STATUS: COMPLETED MEDICINE HISTORY & PHYSICAL Chief Complaint: Word finding difficulty and right sided weakness History of Present Illness (HPI) - Maryjo Vargas is a 72 year old male with a history of metastatic renal cell carcinoma, prostate cancer, and mets to bones and pancrease, HLD, HTN and presented from orthopedic clinic due to word finding difficulty and weakness of the RLE an his stated that he has been having memory issues over the past several weeks. But over the past 3 days difficulty finding words. He had also noted weakness of the right extremities. Patient has not been able to walk over the past 3 days. Family member attributed the word finding difficulties to oxycodone and discontinued it 2 days ago but without improvement of the word finding difficulty and weakness. He had headache yesterday but no swallowing difficulty, blurring of vision or abnormal body movement. He has not noticed numbness. Patient declined cancer directed ( chemo or surgery) treatment for both renal cell carcinoma and prostatic carcinoma and opted for homeopathic medicine and recently admitted with pathology fracture of the left humerus. Patient still would not like to have cancer directed treatment but would like to have involvment of palliative care and symptom control Emergency Department (ED) Course: In the ED vital signs were stable, CT/CTA was done and showed multifocal metastasis, brain MRI was also done and showed multifocal brain metastases dexamethasone 4 mg was provided. Past Medical History: Active problems - Computerized Problem List is the source for the followin. OBESITY, UNSP 2. LIVER CHEM, ABNORMAL 3. Adjustment Disorder with Mixed Anxiety and Depressed Mood 4. Other and unspecified Sleep Apnea 5. Elevated Prostate Specific Antigen (PSA) 6. Dysmetabolic Syndrome X 7. Polyp of colon (SNOMED CT 86697982) - 2011, repeat in 7-10 years, see report 8. Malignant tumor of prostate (SNOMED CT 215942009) 9. Benign hypertension 10. Retention of urine 11. Malignant tumor of kidney parenchyma 12. Multinodular goiter 13. Secondary malignant neoplasm of pancreas Past Surgical History: Active and Recently Inpatient Medications (including Supplies): Active Inpatient Medications Status 1) ACETAMINOPHEN (INPT) TAB 650MG PO Q4H PRN FOR PAIN ACTIVE (1st line): MAX DOSE of acetaminophen is 4000mg in 24 hours 2) DEXAMETHASONE INJ,SOLN DEXAMETHASONE 4 MG in 0.9% ACTIVE NACL 50 ML OVER 20 MINUTES GIVE AT 2100 ON 08/23/22 IVPB ONCE 3) DEXAMETHASONE INJ,SOLN DEXAMETHASONE 4 MG in 0.9% ACTIVE NACL 50 ML OVER 20 MINUTES IVPB QAM/NOON 4) ENOXAPARIN INJ 40MG/0.4ML SQ QNOON Prophylactic ACTIVE protocol *give only in abdomen 5) LEVETIRACETAM TAB 500MG PO BID ACTIVE 6) LISINOPRIL TAB 20MG PO QDAY ACTIVE 7) ONDANSETRON INJ,SOLN 4MG/2ML IV Q6H PRN FOR NAUSEA ACTIVE 8) OXYCODONE TAB 5MG PO TID PRN for pain (2nd line) ACTIVE 9) PANTOPRAZOLE TAB,EC 40MG PO ACTIVE 10) POLYETHYLENE GLYCOL 3350 POWDER,ORAL 17 GM PKT PO ACTIVE QDAY PRN FOR CONSTIPATION. MIX IN JUICE OR WATER. 11) SULFAMETHOXAZOLE/TRIMETHOPR IM TAB 800/160 MG PO ACTIVE -@0900 Pending Inpatient Medications Status 1) CALCITRIOL CAP,ORAL 0.5MCG PO BID PENDING 12 Total Medications No Active Remote Medications for this patient Active Outpatient Medications (excluding Supplies): Outpatient Medications [...] MOUTH EVERY DAY ACTIVE 9 Total Medications Family History: Social History: 1. Tobacco -denies use 2. Alcohol -quit 20 years ago 3. Illicit Drug Use -denies use 4. Living Situation -lives with his Allergies: HAZELNUTS (Nov 21, 2002) Review of System: Physical Exam: Physical Exam: Temp: 98.2 F [36.8 C] (08/23/2022 10:34) Pulse:63 (08/23/2022 10:34) BP: 128/72 (08/23/2022 10:34) Resp: 16 (08/13/2022 18:16) Weight: 245 lb [111.13 kg] (07/28/2022 10:23) Pain: 9 (08/13/2022 18:16) O2 Sat: 94% (08/23/2022 10:34) BMI: 33.3 General: Word finding difficulties Skin: No rash or bruise Head: AT/NC Eyes: PERRLA, EOMI Oral/Throat: Moist and clear. Neck/Thyroid: no JVD, no bruit Cardiac: RRR, No murmurs, gallops, rubs, S1 and S2 normal. Chest/Lungs: Bilaterally clear. Abdominal: Bowel sounds present, No distention, No tenderness. Extremities: No pedal edema. DP and PT + 2. Neurological: Patient oriented to self but not time and place. Orientation answers could be difficult due to patient's word finding difficulties. Appears to understand questions. Pupils are reactive. PERLL, EOMI. Mild infragenicular right sided facial palsy. Poer 5/5 in RUE and LLE, 4/5 in RLE, some weakness in the left upper extremity but difficult to assess in the setting of recent fracture. Sensory test was unreliable Labs: - INR: INR 1.0 PLASMA (08/23/22 11:16) - Complete Blood Count White count: WBC 5.11 (08/23/22) Hemoglobin: HGB 11.9 L (08/23/22) Hematocrit: HCT 35.7 L (08/23/22) Platelets: PLT 190 (08/23/22) - Complete Metabolic Panel SODIUM 140 (08/23/22) POTASSIUM 4.3 (08/23/22) CHLORIDE 107 (08/23/22) CO2 26 (08/23/22) UREA NITROGEN 15 (08/23/22) CREATININE 0.8 (08/23/22) GLUCOSE 101 H (08/23/22) CALCIUM 9.2 (08/23/22) MAGNESIUM 2.3 (08/23/22) EGFR (09/29) 03/17/20 @ 0904 111 CREATININE EGFR (CKD-EPI) 08/23/22 @ 1116 >90 AST/SGOT 15 (08/23/22) ALT/SGPT 12 (08/23/22) ALK PHOSPHATASE 98 (08/23/22) ALBUMIN 3.8 (08/23/22) BILIRUBIN, TOTAL 0.7 (08/23/22) Urinalysis: URINE COLOR____ APPEARANCE____ SPECIFIC GRAVITY____ URINE PH____ URINE BILIRUBIN____ URINE KETONES____ URINE GLUCOSE____ URINE PROTEIN____ URINE HEME____ LEUKOCYTE ESTERASE____ URINE NITRITE____ URINE BACTERIA____ URINE WBC/HPF____ URINE RBC/HPF____ Active and Recently Inpatient Medications (including Supplies): Active Inpatient Medications Status 1) ACETAMINOPHEN (INPT) TAB 650MG PO Q4H PRN FOR PAIN ACTIVE (1st line): MAX DOSE of acetaminophen is 4000mg in 24 hours 2) DEXAMETHASONE INJ,SOLN DEXAMETHASONE 4 MG in 0.9% ACTIVE NACL 50 ML OVER 20 MINUTES GIVE AT 2100 ON 08/23/22 IVPB ONCE 3) DEXAMETHASONE INJ,SOLN DEXAMETHASONE 4 MG in 0.9% ACTIVE NACL 50 ML OVER 20 MINUTES IVPB QAM/NOON 4) ENOXAPARIN INJ 40MG/0.4ML SQ QNOON Prophylactic ACTIVE protocol *give only in abdomen 5) LEVETIRACETAM TAB 500MG PO BID ACTIVE 6) LISINOPRIL TAB 20MG PO QDAY ACTIVE 7) ONDANSETRON INJ,SOLN 4MG/2ML IV Q6H PRN FOR NAUSEA ACTIVE 8) OXYCODONE TAB 5MG PO TID PRN for pain (2nd line) ACTIVE 9) PANTOPRAZOLE TAB,EC 40MG PO DQ ACTIVE 10) POLYETHYLENE GLYCOL 3350 POWDER,ORAL 17 GM PKT PO ACTIVE QDAY PRN FOR CONSTIPATION. MIX IN JUICE OR WATER. 11) SULFAMETHOXAZOLE/TRIMETHOPR IM TAB 800/160 MG PO ACTIVE MO-WE-FR@0900 Pending Inpatient Medications Status 1) CALCITRIOL CAP,ORAL 0.5MCG PO BID PENDING 12 Total Medications No Active Remote Medications for this patient Active Outpatient Medications (excluding Supplies): Outpatient Medications [...] MOUTH EVERY DAY ACTIVE 9 Total Medications Imaging Chest X Ray: Impression for CHEST 1 VIEW, 07/20/22, case [id number] Large body habitus and lordotic view does decrease the diagnostic quality of imaging. No evidence of focal infiltrate or large pleural effusion. Calcified granuloma in the left lung is stable and clinically insignificant. Cardiac silhouette is grossly within normal limits. No evidence of large pneumothorax. 1. Enhancing mass centered at the posterior [...] intracranial mass effect, with rightward subfalcine herniation ([id number] midline shift measures up to 1.4 cm) [...] least moderately suboptimal due to motion artifact. 1. Heterogeneous hypervascular mass in the region [...] left lateral ventricle. Rightward subfalcine herniation, with [id number] midline shift measuring up to 1.4 cm. [...] of hemodynamically significant stenosis in the neck. Assessment/Plan: Maryjo Vargas is a 72 year old male with a history of metastatic renal cell carcinoma, prostate cancer, with mets to bones and pancrease with recent left humerus pathologic fractre HLD, HTN and presented from orthopedic clinic due to word finding difficulty and weakness of the RLE and found out to have multiple brain metastases #Renal cell carcinoma #Prostatic carcinoma #Aphasia, RLE weakness and right infranuclear facial palsy 2/2 multifocal brain metastases #Pancreatic metastasis #History of pathologic fracture of humerus ( bone metastsis Patient with advanced renal cell carcinoma and prostatic carcinoma. Declined cancer directed treatment (chemo or surgery) before. Presented with aphasia, right lower extremity weakness and inflammatory facial palsy and found not to have difficult brain metastasis. Palliative treatment with treatment of increased ICP prevention of seizure and is present with her also goals of carefor now. Other cancer directed treatment is still not within 's goals of care. would like to discuss options of enrollment at hospice with palliative care team -Neuro consulted, appreciate recommendations -IV dexamethasone 4 mg at 6am and 12pm (based on neuro recs) -Keppra 500 mg p.o. twice daily -Elevat bed at 30 degrees -PJP prophylaxis with Bactrim 3 times per week -Calcitriol 05mg BID -Pantoprazole 40 mg daily -Palliative care consult, for goals of care, symtom managment and hospice enrollment #Recent hx of pathologic fracture of humerus s/p ORIF -ortho following as outpatient -Pain control with Tylenol and oxycodone #Hypertension Continue [employer] Lisinopril #Prostatic CA with urine retention on chronic wang -continue wang Fluids/Electrolytes/Nutriti on (FEN):Regular diet Deep Vein Thrombosis (DVT) Prophylaxis:Lovenox Code Status:DNI/DNR Disposition:Acute med, dispo pending clinical course and enrollment in hospice I have seen and discussed the patient with my attending, , who agrees with the above assessment and plan. Anant Douglas MD PGY2, IM /es/ ANANT DOUGLAS RESIDENT PHYSICIAN Signed: 08/23/2022 18:58 ANANT DOUGLAS [facility] Aug 23, 2022 05:22 PM ATTENDING ADMISSION EVALUATION NOTE: LOCAL TITLE: MEDICINE ADMISSION STAFF NOTE STANDARD TITLE: ATTENDING ADMISSION EVALUATION NOTE DATE OF NOTE: AUG 23, 2022@17:22 ENTRY DATE: AUG 23, 2022@17:22:53 AUTHOR: CARLY DELEON EXP COSIGNER: URGENCY: STATUS: COMPLETED INPATIENT MEDICINE STAFF ATTENDING NOTE Patient seen and examined by me. Work up and Treatment Plan: The H&P was presented to me by the resident/medical student. I have verified pertinent findings and discussed the assessment, goals, diagnostic evaluation and treatment plan with the resident/medical student. Summary noted below. Plan of care was discussed with the patient and/or family (risks/benefits/alternative s) REASON FOR ADMISSION: aphasia- new brain metastases noted with known metastatic renal cell carcinoma. PERTINENT HISTORY: A 72 year old MALE presenting to orthopedics clinic with his s/o interal fixation of L humerus pathological fracture. (metastatic renal carcinoma). Reported concerns of aphasia and then went to emergency room to be evaluated. Found to have below MRI findings.-in short- showing enhancing mass concerning for metastatic disease as well as edema, and mass effect. NSG called as well as Neuro and all evaluated patient in ER. Spoke with patient and his Lexi Ivy) ( 49 year) They have known about Mr. Vargas's renal cell carcinoma and have never wanted traditional treatment for it. They were told at diagnosis the recommedation for him was significant surgical intervention with chemotherapy and that his prognosis was 15 months. They did not pursue that but rather tried plant based diet and with that he has lived nearly 6 years without incident. They continue to not want to pursue active treatment of the renal cell carcinoma and are not surprised that what has been found today is a metastasis of the renal cell carcinoma. Mr. Vargas wants to go home, and have his symptoms controlled as best as they can be so that he can get things in order. He is hopeful that he has a few months left. Both him and his were very much in agreement of this plan and were interested in pursuing symptomatic treatment at present and meeting with hospice to discuss services as their main goal is to get back home. Exam is most notable for patient's aphasia; he frequently either cannot think of the correct word to state or fills in the incorrect word when asked a question. full neuro exam in resident note patient with wang catheter in place. MRI: Impression: 1. Enhancing mass centered at the [...] intracranial mass effect, with rightward subfalcine herniation ([id number] midline shift measures up to 1.4 cm) [...] least moderately suboptimal due to motion artifact. Plan: at this time will place on steroids for edema and keppra for seizure prevention. will consult palliative/hospice tomorrow per patient and his 's wishes. He never wanted to undergo chemotherapy or surgery for his renal cell carcinoma and they are happy that he was able to live for almost 6 years post diagnosis. He very much wants to get home as soon as he is stable to do so. He is DNR/DNI. /sangita/ CARLY DELEON MD Staff Physician Signed: 08/23/2022 17:40 CARLY DELEON [facility]
--- OUTSIDE RECORDS SUMMARY | 2023-03-24 08:32 | XMS_ITS | Encounter Summary ---
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 [facility] Organization Department of [facility] Address [address] [place] [id number] Support Name Relationship Address Phone DOREEN WAGNER Next of Kin [address] [place] [phone] DOREEN Emergency Contact [phone] [place] [phone] Insurance Providers: All historical and current [...] Name Patient's Relationship to Policy [place] [employer] [facility] (WNR) MEDICARE ADVANTAGE [facility] (WNR) June 26, 2016 [id number] JOAN WAGNER PATIENT [employer] [facility] (WNR) MEDICARE ADVANTAGE [facility] (WNR) June 26, 2016 [id number] [phone] CARSONJOAN ROWELL PATIENT [employer] (WNR) MEDICARE ADVANTAGE [facility] (WNR) June 26, 2016 [id number] JOAN WAGNER KARSTEN PATIENT Selected Encounter This section includes the information on record at [place] for the Encounter. Date/Time Encounter Type Encounter Description Reason Pro vider Source IHE Encounter Template Text not used by [facility] Advance Directives: All historical and current Section Date Range: From patient's date of to the date document was created. This section includes ALL of a patient's completed or amended [facility] Advance and Rescinded Directives. The entries below indicate that a directive exists for the patient, but an actual copy is not included with this document. The data comes from all [place] facilities. Date Advance Directives Provider Source Mar 18, 2003 ADVANCE DIRECTIVE FARHAT MELGAR [facility]
--- OUTSIDE RECORDS SUMMARY | 2023-03-24 08:32 | XMS_ITS | Encounter Summary ---
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 Address [address] [place] [address] Support Name Relationship Address Phone DOREEN WAGNER Next of Kin [address] [place] [phone] DOREEN Emergency Contact [phone] [place] [phone] Insurance Providers: All historical and current [...] Policy [place] [employer] (WNR) MEDICARE ADVANTAGE [facility] (WNR) June 26, 2016 [id number] JOAN WGANER KARSTEN PATIENT [employer] (WNR) MEDICARE ADVANTAGE [facility] (WNR) June 26, 2016 [id number] JOAN WAGNER KARSTEN PATIENT [employer] M[employer] (WNR) MEDICARE ADVANTAGE [facility] (WNR) June 26, 2016 [id number] JOAN WAGNER PATIENT Selected Encounter This section includes the information on record at [place] for the Encounter. Date/Time Encounter Type Encounter Description Reason Provider Source Aug 23, 2022 10:31 AM Outpatient Encounter EMERGENCY DEPT Serena ESQUIVEL Encounter Template Text not used by [place] Plan of Treatment: Future Appointments (+ 6 [...] 20 appointments. The data comes from all [facility]. Appointment Date/Time Appointment Type Appointme nt Facility Name Sep 06, 2022 10:15 AM AMBULATORY - SURGERY [facility] Oct 25, 2022 07:00 AM AMBULATORY - NONE [facility] Oct 25, 2022 07:30 AM AMBULATORY - SURGERY [facility] Oct 25, 2022 09:00 AM AMBULATORY - SURGERY [facility] Active, Pending, and Scheduled Orders This section includes a listing of several types of active, pending, and scheduled orders, including clinic medications orders, diagnostic test orders, procedure orders and consult orders; where the start date of the order is 45 days before the date of the Encounter or 45 days after the date of theEncounter. The data comes from all [facility]. Test Date/Time Test Type Test Details Facility Name July 14, 2022 12:00 AM Laboratory - Blood Bank Order ABO/RH - LAB BLOOD [facility] July 14, 2022 02:05 PM Laboratory - Blood Bank Order TYPE & SCREEN - LAB BLOOD [facility] Aug 07, 2022 11:23 AM Laboratory - Chemi stry Order DRUG SCREEN PANEL,URINE URINE [facility] Aug 23, 2022 10:47 AM Laboratory - Chemi stry Order URINALYSIS URINE ER STAT [facility] Lab Results: +/- 30 days of the encounter This section includes the Chemistry and Hematology Lab Results on record with [place] for the patient. Radiology Reports and Pathology [...] Aug 24, 2022 09:34 AM Reporting Lab: [facility] [id number] Performing Lab: [facility] [id number] URINE COLOR YELLOW SPECIFIC GRAVITY 1.030 1.003-1.03 [...] Aug 23, 2022 10:47 AM Reporting Lab: [facility] [id number] Performing Lab: [facility] [id number] APTT 30.2 25.1-36.5 Aug 23, 2022 11:16 AM [facility] LIPID PANEL,NON-FASTING Specimen Type: PLASMA No comment entered. Ordering Provider: Serena ESQUIVEL Report Released Date/Time: Aug 23, 2022 10:47 AM Reporting Lab: [facility] [id number] Performing Lab: [facility] [address] CHOLESTEROL 129 See_Comm en t .HDL 36 [...] Aug 23, 2022 10:47 AM Reporting Lab: [facility] [id number] Performing Lab: [facility] [address] TSH 1.54 0.35-4.94 Aug 23, 2022 11:16 AM [facility] CARDIAC TROPONIN I Specimen Type: PLASMA No comment entered. Ordering Provider: Serena ESQUIVEL Report Released Date/Time: Aug 23, 2022 10:47 AM Reporting Lab: [facility] [id number] Performing Lab: [place] [address] CARDIAC TROPONIN I <0.028 See_Commjd t Aug 23, 2022 11:16 AM [facility] SED RATE Specimen Type: BLOOD No comment entered. Ordering Provider: Serena ESQUIVEL Report Released Date/Time: Aug 23, 2022 10:47 AM Reporting Lab: [facility] [id number] Performing Lab: [facility] [address] SED RATE 31 H 5-15 Aug 23, 2022 11:16 AM [facility] PHOSPHORUS Specimen Type: PLASMA No comment entered. Ordering Provider: Serena ESQUIVEL Report Released Date/Time: Aug 23, 2022 10:47 AM Reporting Lab: [facility] [id number] Performing Lab: [place] [address] PHOSPHORUS 3.9 2.3-4.7 Aug 23, 2022 11:16 AM [facility] C-REACTIVE PROTEIN Specimen Type: SERUM No comment entered. Ordering Provider: Serena ESQUIVEL Report Released Date/Time: Aug 23, 2022 10:47 AM Reporting Lab: [facility] [address] Performing Lab: [facility] [address] C-REACTIVE PROTEIN 3.14 See_Jana t Aug 23, 2022 11:16 AM [facility] [...] Aug 23, 2022 10:47 AM Reporting Lab: [facility] [phone] Performing Lab: [facility] [address] HEMOGLOBIN A1C 4.2 4.0-6.0 Aug 23, 2022 11:16 AM [facility] COMPREHENSIVE METABOLIC PANEL+MG Specimen Type: PLASMA No comment entered. Ordering Provider: Serena ESQUIVEL Report Released Date/Time: Aug 23, 2022 10:47 AM Reporting Lab: [facility] [phone] Performing Lab: [facility] [address] CREATININE 0.8 0.7-1.2 UREA NITROGEN 15 8-26 [...] Aug 23, 2022 10:47 AM Reporting Lab: [facility] [address] Performing Lab: [facility] [address] WBC 5.11 4.0-11.0 RBC 3.87 L 4.6-6.2 [...] Aug 23, 2022 11:16 AM Reporting Lab: [facility] [address] Performing Lab: [facility] [address] POC CREATININE 0.8 0.6-1.3 Vital Signs: All taken on the encounter date This section contains inpatient and outpatient Vital Signs collected on the date of the Encounter. Date/Time Temperature Pulse Blood Pressure Respiratory Rate SP02 Pain Height Weight Body Mass Index Source Aug 23, 2022 10:34 AM 98.2 F 63 /min 128/72 mm[Hg] 94 % [facility] Social History: Smoking Status (Most current) and Tobacco Use (All prior to encounter date) This section includes the most current, and the historical, smoking and tobacco- related health factors from the [facility] facility where the Encounter took place. Current Smoking Status This section includes the most current smoking, or tobacco-related health factor, from the [facility] facility where the Encounter took place. Date/Time Current Smoking Status Comment Facil ity May 10, 2022 09:15 AM [place]-TOBACCO QUIT 15 YRS OR MORE [facility] Tobacco Use History This section includes a history of the smoking, or tobacco-related health factors, that were collected on or before the date of the Encounter. The data comes from the [facility] facility where the Encounter took place. Date/Time [...] ALL of a patient's completed or amended [place] Advance and Rescinded Directives. The entries below indicate that a directive exists for the patient, but an actual copy is not included with this document. The data comes from all [place] facilities. Date Advance Directives Provider Source Mar 18, 2003 ADVANCE DIRECTIVE FARHAT MELGAR [facility] Radiology Reports: +/- 30 days of the [...] the Encounter. The data comes from all [place] treatment facilities. Date/Time Radiology Report Provider Source Aug 23, 2022 01:11 PM MRI-BRAIN (P): BERNARDMARYJO CAVAZOS [id number] -1950 M Exm Date: AUG 23, 2022@13:11 Req Phys: Serena ESQUIVEL Pat Loc: [facility] EMERGENCY DEPT WALK-IN (Re Img Loc: MRI IMAGING Service: Unknown (Case [id number] COMPLETE) MRI BRAINBRAINSTEM W & W/O CONTRA(MRI Detailed) CPT:70027 Contrast Media : Gadolinium Reason for Study: APHASIA X3 DAYS Clinical History: MRI BRAIN WITH/WITHOUT CONTRAST [place] IS NOT under investigation for COVID-19 or is COVID-19 negative Did the ordering provider speak with a analytics consultant regarding this imaging exam? Yes, Name of analytics consultant (resident or staff):Neurology Aphasia x 3 days Responsible provider name and phone number to notify for critical findings if other than user placing the order and pager listed below: User placing orders pager: [phone] LAST CREATININE 0.8 (08/23/22) Allergies: HAZELNUTS (Nov 21, 2002) Report Status: Verified Date Reported: AUG 23, 2022 Date Verified: AUG 23, 2022 Change Management Expert E-Sig:/ES/TERESA SANTAMARIA MD Report: MRI BRAINBRAINSTEM W [...] in the left supratentorial compartment results in qxze-px-huaje midline shift again measuring up to 1.4 [...] intracranial mass effect, with rightward subfalcine herniation (ahzi-hy-notyo midline shift measures up to 1.4 cm) [...] Primary Interpreting Staff: TERESA SANTAMARIA MD, RADIOLOGIST (Change Management Expert) /[facility] TERESA SANTAMARIA [facility] Aug 23, 2022 12:03 PM CTA CAROTID/COW (P ): MARYJO WAGNER [id number] -[id number] M Ex Date: AUG 23, 2022@12:03 Req Phys: Serena ESQUIVEL Pat Loc: [facility] EMERGENCY [facility] WALK-IN ([facility] Loc: CT IMAGING Service: Unknown (Case [id number] COMPLETE) CTA HEAD W/POSTPROCESSING (CT Detailed) CPT:62348 Contrast Media : unspecified contrast media Reason for Study: APHASIAx3 days (Case [id number] COMPLETE) CTA NECK (CT Detailed) CPT:97538 Contrast Media : unspecified contrast media Non-ionic Iodinated Clinical History: HEAD/NECK CTA [place] IS NOT under investigation for COVID-19 or is COVID-19 negative Defer to radiologist for final CT protocol. Please enter pertinent clinical history on the next page. Responsible provider name and phone number to notify for critical findings if other than user placing the order and pager listed below: User placing orders pager: [phone] LAST 3: Collection DT Specimen Test Name [...] PLASMA ESTIMATED GFR(eGF >60 Ref: >=60 Allergies: ([place] only) HAZELNUTS (Nov 21, 2002) To see allergies from all [facility] locations click Reports tab>Remote Data>All Available Sites>Clinical Reports>Allergies. Report Status: Verified Date Reported: AUG 23, 2022 Date Verified: AUG 23, 2022 Change Management Expert E-Sig:/ES/TERESA SANTAMARIA MD Report: CTA HEAD W/POSTPROCESSING, [...] contribute to left cerebral white matter edema. Abjd-uq-wanxm midline shift measures up to 1.4 cm. [...] left lateral ventricle. Rightward subfalcine herniation, with qreb-hy-dstap midline shift measuring up to 1.4 cm. [...] Primary Interpreting Staff: TERESA SANTAMARIA MD, RADIOLOGIST (Change Management Expert) /[facility] TERESA SANTAMARIA [facility] Aug 23, 2022 09:29 AM ELBOW LEFT 3 OR MO RE VIEWS: MARYJO WAGNER [id number] -[id number] M Exm Date: AUG 23, 2022@09:29 Req Phys: LEIF PANDA T Pat Loc: [facility] 2F (Req'g Img Loc: MAIN X-RAY Service: Unknown (Case [id number] COMPLETE) ELBOW LEFT 3 OR MORE VIEWS (RAD Detailed) CPT:42544 Reason for Study: postop Clinical History: IS NOT under investigation for COVID-19 or is COVID-19 negative postop Responsible provider name and phone number to notify for critical findings if other than user placing the order and pager listed below: User placing orders pager: [phone] LAST CREATININE 0.9 (07/19/22) Report Status: Verified Date Reported: AUG 23, 2022 Date Verified: AUG 23, 2022 Change Management Expert E-Sig:/ES/ALBINA LEE MD Report: Exam: Left elbow [...] Primary Interpreting Staff: ALBINA LEE MD, RADIOLOGIST (Change Management Expert) /ALBINA SALEH [facility]
--- OUTSIDE RECORDS SUMMARY | 2023-03-24 08:33 | XMS_ITS | Encounter Summary ---
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 of Vetera [facility] Address [address] [place] [id number] Support Name Relationship Address Phone DOREEN WAGNER Next of Kin [address] [place] [phone] DOREEN Emergency Contact [address] [place] [phone] Insurance Providers: All historical and current [...] Policy [place] [employer] M[employer] (WNR) MEDICARE ADVANTAGE [facility] (WNR) June 26, 2016 [id number] CARSONLELIAJOAN SHELLEY PATIENT [employer] MCR (WNR) MEDICARE ADVANTAGE [facility] (WNR) June 26, 2016 [id number] [phone] JOAN WAGNER KARSTEN PATIENT [employer] MCR (WNR) MEDICARE ADVANTAGE [facility] (WNR) June 26, 2016 [id number] JOAN WAGNER PATIENT Selected Encounter This section includes the information on record at [place] for the Encounter. Date/Time Encounter Type Encounter Description Reason Pro vider Source Aug 23, 2022 05:17 PM Inpatient Visit CLINICAL PHARMACY E Encounter Template Text not used by [place] Plan of Treatment: Future Appointments (+ 6 months) and Future Tests (+/- 45 days) The Plan of Treatment section includes future care activities for the patient from all [place] treatmentfacilities. This section includes future appointments and future orders which are active, pending or scheduled. Future Appointments This section includes appointments that were scheduled to occur 6 months from the date of the Encounter, up to a maximum of 20 appointments. The data comes from all [facility]. Appointment Date/Time Appointment Type Appointme nt Facility Name Sep 06, 2022 10:15 AM AMBULATORY - SURGERY [facility] Oct 25, 2022 07:00 AM [facility] Oct 25, 2022 07:30 AM AMBULATORY - SURGERY [facility] Oct 25, 2022 09:00 AM AMBULATORY - SURGERY [facility] Active, Pending, and Scheduled Orders This section includes a listing of several types of active, pending, and scheduled orders, including clinic medications orders, diagnostic test orders, procedure orders and consult orders; where the start date of the order is 45 days before the date of the Encounter or 45 days after the date of theEncounter. The data comes from all [facility]. Test Date/Time Test Type Test Details Facility Name July 14, 2022 12:00 AM Laboratory - Blood Bank Order ABO/RH - LAB BLOOD [facility] July 14, 2022 02:05 PM Laboratory - Blood Bank Order TYPE & SCREEN - LAB BLOOD [facility] Aug 07, 2022 11:23 AM Laboratory - Chemi stry Order DRUG SCREEN PANEL,URINE URINE ONCE [facility] Aug 23, 2022 10:47 AM Laboratory - Chemi stry Order URINALYSIS URINE ER STAT [facility] Lab Results: +/- 30 days of the encounter This section includes the Chemistry and Hematology Lab Results on record with [place] for the patient. Radiology Reports and Pathology Reports are provided separately, in subsequent sections. Lab Results This section contains the Chemistry/Hematology Results that were resulted 30 days before or 30 daysafter the date of the Encounter. Date/Time Source Result Type Result - Unit Interpretation Reference Range Comment Aug 24, 2022 12:15 PM [facility] URINALYSIS Specimen Type: URINE No comment entered. Ordering Provider: LUCIO KIM Report Released Date/Time: Aug 24, 2022 09:34 AM Reporting Lab: [facility] [id number] Performing Lab: [facility] [id number] URINE COLOR YELLOW SPECIFIC GRAVITY 1.030 1.003-1.03 [...] See_Commen t Aug 23, 2022 11:16 AM [facility] PROTHROMBIN TIME/INR Specimen Type: PLASMA No comment entered. Ordering Provider: Serena ESQUIVEL Report Released Date/Time: Aug 23, 2022 10:47 AM Aug 23, 2022 11:16 AM [facility] ACT PART THROMBO TIME Specimen Type: PLASMA No comment entered. Ordering Provider: Serena ESQUIVEL Report Released Date/Time: Aug 23, 2022 10:47 AM Reporting Lab: [facility] [id number] Performing Lab: [facility] [id number] APTT 30.2 25.1-36.5 Aug 23, 2022 11:16 AM [facility] LIPID PANEL,NON-FASTING Specimen Type: PLASMA No comment entered. Ordering Provider: Serena ESQUIVEL Report Released Date/Time: Aug 23, 2022 10:47 AM Reporting Lab: [facility] [id number] Performing Lab: [facility] [id number] CHOLESTEROL 129 See_Comm en t .HDL 36 L See_Commen t LDL CALCULATION 68 See_ Commen t VLDL CALCULATION 25 See_Commen t NON HDL CHOLESTEROL 93 See_Commen t TRIG(NON FASTING) 123 See_Commen t Aug 23, 2022 11:16 AM [facility] TSH W/REFLEX TO FREE T4 Specimen Type: PLASMA No comment entered. Ordering Provider: Serena ESQUIVEL Report Released Date/Time: Aug 23, 2022 10:47 AM Reporting Lab: [facility] [id number] Performing Lab: [facility] [phone] TSH 1.54 0.35-4.94 Aug 23, 2022 11:16 AM [facility] SED RATE Specimen Type: BLOOD No comment entered. Ordering Provider: Serena ESQUIVEL Report Released Date/Time: Aug 23, 2022 10:47 AM Reporting Lab: [facility] [id number] Performing Lab: [facility] [id number] SED RATE 31 H 5-15 Aug 23, 2022 11:16 AM [facility] C-REACTIVE PROTEIN Specimen Type: SERUM No comment entered. Ordering Provider: Serena ESQUIVEL Report Released Date/Time: Aug 23, 2022 10:47 AM Reporting Lab: [facility] [address] Performing Lab: [facility] [phone] C-REACTIVE PROTEIN 3.14 See_Commen t Aug 23, 2022 11:16 AM [facility] CARDIAC TROPONIN I Specimen Type: PLASMA No comment entered. Ordering Provider: Serena ESQUIVEL Report Released Date/Time: Aug 23, 2022 10:47 AM Reporting Lab: [facility] [address] Performing Lab: [place] [id number] CARDIAC TROPONIN I <0.028 See_Commen t Aug 23, 2022 11:16 AM [facility] PHOSPHORUS Specimen Type: PLASMA No comment entered. Ordering Provider: Serena ESQUIVEL Report Released Date/Time: Aug 23, 2022 10:47 AM Reporting Lab: [facility] [address] Performing Lab: [facility] [id number] PHOSPHORUS 3.9 2.3-4.7 Aug 23, 2022 11:16 AM [facility] HEMOGLOBIN A1C Specimen Type: BLOOD [...] Aug 23, 2022 10:47 AM Reporting Lab: [facility] [address] Performing Lab: [facility] [address] HEMOGLOBIN A1C 4.2 4.0-6.0 Aug 23, 2022 11:16 AM [facility] COMPREHENSIVE METABOLIC PANEL+MG Specimen Type: PLASMA No comment entered. Ordering Provider: Serena ESQUIVEL Report Released Date/Time: Aug 23, 2022 10:47 AM Reporting Lab: [facility] [address] Performing Lab: [facility] [address] CREATININE 0.8 0.7-1.2 UREA NITROGEN 15 8-26 [...] See_Commen t Aug 23, 2022 11:16 AM [facility] CBC & DIFF Specimen Type: BLOOD Comment: Automated Differential Performed Ordering Provider: Serena ESQUIVEL Report Released Date/Time: Aug 23, 2022 10:47 AM Reporting Lab: [facility] [phone] Performing Lab: [facility] [address] WBC 5.11 4.0-11.0 RBC 3.87 L 4.6-6.2 [...] 0.02 0-0.1 Aug 23, 2022 11:14 AM [facility] POC CREATININE Specimen Type: BLOOD No comment entered. Ordering Provider: LAVONNE PANCHAL Report Released Date/Time: Aug 23, 2022 11:16 AM Reporting Lab: [facility] [address] Performing Lab: [facility] [address] POC CREATININE 0.8 0.6-1.3 Vital Signs: All taken on the encounter date This section contains inpatient and outpatient Vital Signs collected on the date of the Encounter. Date/Time Temperature Pulse Blood Pressure Respiratory Rate SP02 Pain Height Weight Body Mass Index Source Aug 23, 2022 10:34 AM 98.2 F 63 /min 128/72 mm[Hg] 94 % [facility] Social History: Smoking Status (Most current) and Tobacco Use (All prior to encounter date) This section includes the most current, and the historical, smoking and tobacco- related health factors from the [place] facility where the Encounter took place. Current Smoking Status This section includes the most current smoking, or tobacco-related health factor, from the [place] facility where the Encounter took place. Date/Time Current Smoking Status Comment Facil ity May 10, 2022 09:15 AM [place]-TOBACCO QUIT 15 YRS OR MORE [facility] Tobacco Use History This section includes a history of the smoking, or tobacco-related health factors, that were collected on or before the date of the Encounter. The data comes from the [place] facility where the Encounter took place. Date/Time Smoking Status/Tobacco Use Comment F acility May 10, 2022 09:15 AM VA-TOBACCO QUIT 15 YRS OR MORE [facility] May 11, 2021 09:15 AM VA-TOBACCO FORMER USER [facility] May 11, 2021 09:15 AM VA-TOBACCO QUIT 15 YRS OR MORE [facility] Nov 22, 2018 01:36 PM VA-TOBACCO NEVER USED [facility] Nov 12, 2017 07:35 AM FORMER TOBACCO USER 7Y OR GREATE R [facility] Nov 06, 2016 09:05 AM FORMER TOBACCO USER 7Y OR GREATE R [facility] Sep 27, 2015 09:42 AM FORMER TOBACCO USER 7Y OR GREATE R [facility] Sep 25, 2014 07:55 AM FORMER TOBACCO USER 7Y OR GREATE R [facility] Sep 08, 2013 07:48 AM FORMER TOBACCO USER 7Y OR GREATE R [facility] July 09, 2012 09:20 AM FORMER TOBACCO USE >1Y <7Y [facility] Jun 06, 2011 07:53 AM FORMER TOBACCO USE >1Y <7Y [facility] Sep 09, 2009 03:03 PM FORMER TOBACCO USE >1Y <7Y [facility] Aug 11, 2008 01:06 PM FORMER TOBACCO USE <1Y [facility] Sep 19, 2007 02:52 PM CURRENT TOBACCO USER [facility] Sep 03, 2006 03:32 PM CURRENT TOBACCO USER [facility] Advance Directives: All historical and current Section Date Range: From patient's date of to the date document was created. This section includes ALL of a patient's completed or amended [place] Advance and Rescinded Directives. The entries below indicate that a directive exists for the patient, but an actual copy is not included with this document. The data comes from all [place] facilities. Date Advance Directives Provider Source Mar 18, 2003 [facility] Radiology Reports: +/- 30 days [...] the Encounter. The data comes from all [place] treatment facilities. Date/Time Radiology Report Provider Source Aug 23, 2022 01:11 PM MRI-BRAIN (P): MARYJO WAGNER [id number] -[id number] M Ex Date: AUG 23, 2022@13:11 Req Phys: Serena ESQUIVEL Pat Loc: [facility] EMERGENCY DEPT WALK-IN (Re Img Loc: MRI IMAGING Service: Unknown (Case [id number] COMPLETE) MRI BRAINBRAINSTEM W & W/O CONTRA(MRI Detailed) CPT:28023 Contrast Media : Gadolinium Reason for Study: APHASIA X3 DAYS Clinical History: MRI BRAIN WITH/WITHOUT CONTRAST IS NOT under investigation for COVID-19 or is COVID-19 negative Did the ordering provider speak with a principal consultant regarding this imaging exam? Yes, Name of principal consultant (resident or staff):Neurology Aphasia x 3 days Responsible provider name and phone number to notify for critical findings if other than user placing the order and pager listed below: User placing orders pager: [phone] LAST CREATININE 0.8 (08/23/22) Allergies: HAZELNUTS (Nov 21, 2002) Report Status: Verified Date Reported: AUG 23, 2022 Date Verified: AUG 23, 2022 Gun Barrel Finisher E-Sig:/ES/TERESA SANTAMARIA MD Report: MRI BRAINBRAINSTEM W [...] in the left supratentorial compartment results in aygb-ig-etxun midline shift again measuring up to 1.4 [...] intracranial mass effect, with rightward subfalcine herniation (htwc-sw-vypos midline shift measures up to 1.4 cm) [...] Primary Interpreting Staff: TERESA SANTAMARIA MD, RADIOLOGIST (Gun Barrel Finisher) /[facility] TERESA SANTAMARIA [facility] Aug 23, 2022 12:03 PM CTA CAROTID/COW (P ): MARYJO WAGNER [id number] -[id number] M Ex Date: AUG 23, 2022@12:03 Req Phys: Serena ESQUIVEL Pat Loc: [facility] EMERGENCY DEPT WALK-IN ([facility] Loc: CT IMAGING Service: Unknown (Case [id number] COMPLETE) CTA HEAD W/POSTPROCESSING (CT Detailed) CPT:91135 Contrast Media : unspecified contrast media Reason for Study: APHASIAx3 days (Case [id number] COMPLETE) CTA NECK (CT Detailed) CPT:31454 Contrast Media : unspecified contrast media Non-ionic Iodinated Clinical History: HEAD/NECK CTA [place] IS NOT under investigation for COVID-19 or is COVID-19 negative Defer to radiologist for final CT protocol. Please enter pertinent clinical history on the next page. Responsible provider name and phone number to notify for critical findings if other than user placing the order and pager listed below: User placing orders pager: [phone] [id number] LAST 3: Collection DT Specimen Test Name [...] PLASMA ESTIMATED GFR(eGF >60 Ref: >=60 Allergies: ([place] only) HAZELNUTS (Nov 21, 2002) To see allergies from all VA locations click Reports tab>Remote Data>All Available Sites>Clinical Reports>Allergies. Report Status: Verified Date Reported: AUG 23, 2022 Date Verified: AUG 23, 2022 Gun Barrel Finisher E-Sig:/ES/TERESA SANTAMARIA MD Report: CTA HEAD W/POSTPROCESSING, [...] contribute to left cerebral white matter edema. Grof-wn-cqflx midline shift measures up to 1.4 cm. [...] left lateral ventricle. Rightward subfalcine herniation, with ndzb-tu-vqvlg midline shift measuring up to 1.4 cm. [...] Primary Interpreting Staff: TERESA SANTAMARIA MD, RADIOLOGIST (Gun Barrel Finisher) /[facility] TERESA SANTAMARIA [facility] Aug 23, 2022 09:29 AM ELBOW LEFT 3 OR [place] RE VIEWS: MARYJO WAGNER [place] [id number] -[id number] M Ex Date: AUG 23, 2022@09:29 Req Phys: LEIF PANDA Pat Loc: [facility] 2F (Req'g Img Loc: MAIN X-RAY Service: Unknown (Case [id number] COMPLETE) ELBOW LEFT 3 OR MORE VIEWS (RAD Detailed) CPT:37839 Reason for Study: postop Clinical History: [place] IS NOT under investigation for COVID-19 or is COVID-19 negative postop Responsible provider name and phone number to notify for critical findings if other than user placing the order and pager listed below: User placing orders pager: [phone] LAST CREATININE 0.9 (07/19/22) Report Status: Verified Date Reported: AUG 23, 2022 Date Verified: AUG 23, 2022 Gun Barrel Finisher E-Sig:/ES/ALBINA LEE MD Report: Exam: Left elbow [...] Primary Interpreting Staff: ALBINA LEE MD, RADIOLOGIST (Gun Barrel Finisher) /[facility] SALEH [facility] Encounter Notes: All associated encounter notes This section contains the clinical notes associated to the Encounter. Date/Time Encounter Note(s) Provider Source Aug 23, 2022 05:17 PM PHARMACY MEDICATION MGT NOTE: LOCAL TITLE: DRUG RECONCILIATION ON ADMIT STANDARD TITLE: PHARMACY MEDICATION MGT NOTE DATE OF NOTE: AUG 23, 2022@17:17 ENTRY DATE: AUG 23, 2022@17:17:15 AUTHOR: DORIS STOKES COSIGNER: JOSE CASTREJON URGENCY: STATUS: COMPLETED PHARMACY MEDICATION HISTORY NOTE ===== Medication & allergy history was compiled by pharmacy to assist providers ordering inpatient medications. Essential med list includes active local & remote VA rxs, non-VA meds, recently rxs within last 180 days, recently discontinued rxs within last 90 days, clinic med orders, pending med orders, & inpatient med orders. Current active & pending inpatient med orders will be reviewed to complete medication reconciliation. With the exception of allergies, if a category is not listed below, there were no relevant meds for the patient. See [facility] Emergency Department documentation for medications given during emergency department visit. INTERVIEW Patient and/or caregiver has been INTERVIEWED by pharmacy. PT AND , NANCIE, WERE GOOD HISTORIANS FOR THIS INTERVIEW. NO REMOTE, PENDING, CLINIC, OR RECENTLY DISCONTINUED MEDICATIONS. LAST DOSES (ASPIRIN) WERE TAKEN THIS AM 08/23/2022 UNLESS OTHERWISE STATED. Allergies: FACILITY ALLERGY/ADR -------- [facility] HAZELNUTS PT AND NANCIE REPORT THIS IS NOT AN ALLERGY, PT HAS NKDA Tobacco use within the last 30 days: No +++++++++++++++++++++++++++ +++++++++++++++++++++++++++ +++++++++++++++++++++++ MARYJO WAGNER [id number] Source of Info: [facility] Drug Last Refills Qty Filled Remaining ---- --- ------ --------- ASPIRIN 81MG EC TAB 120 07/21/2022 (0) TWO QDAY TO PREVENT BLOOD CLOTS TAKE UNTIL TOLD OKAY TO DISCONTINUE BY ORTHOPEDICS Indication: TO PREVENT BLOOD CLOTS LISINOPRIL 20MG TAB 90 02/08/2022 (3) ONE QDAY FOR BLOOD PRESSURE PT AND NANCIE REPORT USUALLY TAKES BUT RAN OUT ABOUT A WEEK AGO LUBRICATING TOP JELLY BACTERIOSTATIC 120 09/25/2021 (3) APPLY JELLY TOPICALLY DIRECTED PT REPORTS NO LONGER USING NALOXONE HCL 4MG/SPRAY SOLN NASAL SPRA 2 08/03/2022 (0) SPRAY 1 DOSE IN ONE NOSTRIL PRN FOR UNRESPONSIVENESS THEN CALL 911 Indication: FOR UNRESPONSIVENESS THEN CALL 911 OXYCODONE 5MG TAB 56 08/01/2022 (0) ONE TID PRN FOR PAIN Indication: FOR PAIN PT AND NANCIE REPORT NO LONGER TAKING, STOPPED 3 DAYS AGO, DOESN'T NEED The following prescriptions have ACETAMINOPHEN 325MG TAB 100 07/21/2022 (0) TWO Q6H PRN FOR PAIN Indication: FOR PAIN : 08/20/2022 PT AND NANCIE REPORTS TAKING 3-4 TIMES A WEEK POLYETHYLENE GLYCOL 3350 ORAL PWDR 238 07/21/2022 (0) 17 GRAMS QDAY PRN FOR CONSTIPATION Indication: FOR CONSTIPATION : 08/20/2022 NANCIE REPORTS SHE HAS NEVER GIVEN THIS TO PT, FELT IT WAS ANTIFREEZE PREGABALIN 25MG ORAL CAP 90 07/21/2022 (0) ONE TID FOR PAIN TAPER PAIN IMPROVES Indication: FOR PAIN : 08/20/2022 PT AND NANCIE REPORT NO LONGER TAKING, STOPPED ABOUT A WEEK AGO SODIUM FLUORIDE 1.1% TOOTHPASTE 100 07/09/2021 (5) USE SMALL AMOUNT MOUTH QAM AND QHS ON TOOTHBRUSH, BRUSH FOR 2 MINUTES : 07/08/2022 PT AND NANCIE REPORT NO LONGER USING TAMSULOSIN HCL 0.4MG CAP 90 11/12/2021 (1) ONE EVERY DAY : 05/12/2022 PT AND NANCIE REPORT NO LONGER TAKING The following are Non-VA medications GLUCOSAMINE CAP/TAB 1 TWICE A DAY NANCIE REPORTS PT IS NO LONGER TAKING CHONDROITIN CAP/TAB 1 TWICE A DAY NANCIE REPORTS PT IS NO LONGER TAKING MULTIVITAMIN CAP/TAB 1 EVERY DAY PT AND NANCIE REPORT STILL TAKING 1 QDAY TURMERIC (UNKNOWN STRENGTH) 1 CAPSULE QDAY NANCIE REPORTS PT IS TAKING GREEN TEA CAPSULE (UNKNOWN STRENGTH) 1 CAPSULE QDAY NANCIE REPORTS PT IS TAKING ESSIAC TEA TABLET (UNKNOWN STRENGTH) 1 TABLET QDAY NANCIE REPORTS PT IS TAKING NATURAL ANTI-CANCER SUPPLEMENT X[id number] X[id number] [id number] Consider the following inpatient medications when reviewing list above to complete medication reconciliation: Active Inpatient Medications (including Supplies): Active Inpatient Medications Status 1) ACETAMINOPHEN (INPT) TAB 650MG PO Q4H PRN FOR PAIN ACTIVE (1st line): MAX DOSE of acetaminophen is 4000mg in 24 hours 2) LISINOPRIL TAB 20MG PO QDAY ACTIVE 3) ONDANSETRON INJ,SOLN 4MG/2ML IV Q6H PRN FOR NAUSEA ACTIVE 4) OXYCODONE TAB 5MG PO TID PRN for pain (2nd line) ACTIVE 5) POLYETHYLENE GLYCOL 3350 POWDER,ORAL 17 GM PKT PO ACTIVE QDAY PRN FOR CONSTIPATION. MIX IN JUICE OR WATER. Pending Inpatient Medications Status 1) ASPIRIN TAB,EC 162MG PO DQDAY PENDING 2) ENOXAPARIN INJ 40MG/0.4ML SQ QNOON PENDING 7 Total Medications /sangita/ DORIS STOKES Sort Manager Signed: 08/23/2022 19:54 /es/ JOSE CASTREJON, PERLAD,BCPS Pharmacist Cosigned: 08/23/2022 19:55 Receipt Acknowledged By: * AWAITING SIGNATURE * MELANIE DOUGLAS 08/23/2022 19:59 /es/ Ziggy Rossi, PerlaD, BCPS PHARMACIST DORIS STOKES [facility]
--- OUTSIDE RECORDS SUMMARY | 2023-03-24 08:33 | XMS_ITS | Encounter Summary ---
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 Organization [facility] Address [address] [place] [address] Support Name Relationship Address Phone DOREEN VARGSA Next of Kin [address] [place] [phone] DOREEN Emergency Contact [address] [place] [phone] Insurance Providers: All historical and current [...] [place]'s Name Patient's Relationship to Policy [place] [facility] MEDICARE [facility] ([facility]) June 26, 2016 [id number] CARSONJOAN ROWELL [facility]IC[facility] ([facility]) June 26, 2016 [id number] [phone] JOAN VARGAS KARSTEN PATIENT [employer] M[facility] (WNR) MEDICARE ADVANTAGE [facility] ([facility]) June 26, 2016 [id number] JOAN VARGAS PATIENT Selected Encounter This section includes the information on record at [place] for the Encounter. Date/Time Encounter Type Encounter Description Reason Provider Source Aug 23, 2022 04:48 PM OFF/OP CONSLTJ NEW/EST HI 55 NEUROLOGY ICD-10-CM C64.2 Malignant neoplasm of left kidney, except renal pelvis ANNIKA,BENNY R IHE Encounter Template Text not used by [place] Assessments - Encounter Diagnoses This section includes the primary and secondary diagnoses documented for the Encounter. Date/Time Primary/Secondary Diagnosis Diagnosis Name Provider Source Aug 23, 2022 05:12 PM PRIMARY Malignant neoplasm of left kidney, except renal pelvis CONCEPCIÓN STANF[facility] Aug 23, 2022 05:12 PM SECONDARY Malignant neoplasm of cerebral ventricle CONCEPCIÓN STANF[facility] Plan of Treatment: Future Appointments (+ 6 months) and Future Tests (+/- 45 days) The Plan of Treatment section includes future care activities for the patient [facility] [place] [facility]. This section includes future appointments [...] 06, 2022 10:15 AM AMBULATORY - SURGERY [facility] Oct 25, 2022 07:00 AM AMBULATORY - NONE [facility] Oct 25, 2022 07:30 AM AMBULATORY - SURGERY [facility] Oct 25, 2022 09:00 AM AMBULATORY - SURGERY [facility] Active, Pending, and Scheduled Orders This [...] ABO/RH - LAB BLOOD [facility] July 14, 2022 02:05 PM Laboratory - Blood Bank Order TYPE & SCREEN - LAB BLOOD [facility] Aug 07, 2022 11:23 AM Laboratory - Chemi strFotofeedback Order DRUG SCREEN PANEL,URINE URINE ONCE [facility] Aug 23, 2022 10:47 AM Laboratory - Chemi stry Order URINALYSIS URINE ER STAT [facility] Lab Results: +/- 30 days of the encounter This section includes the Chemistry and Hematology Lab Results on record with [place] for the patient. Radiology Reports and Pathology [...] Aug 24, 2022 09:34 AM Reporting Lab: [facility] [address] Performing Lab: [facility] [address] URINE COLOR YELLOW SPECIFIC GRAVITY 1.030 1.003-1.03 [...] Aug 23, 2022 10:47 AM Reporting Lab: [facility] [address] Performing Lab: [facility] [address] APTT 30.2 25.1-36.5 Aug 23, 2022 11:16 AM [facility] LIPID PANEL,NON-FASTING Specimen Type: PLASMA No comment entered. Ordering Provider: Serena ESQUIVEL Report Released Date/Time: Aug 23, 2022 10:47 AM Reporting Lab: [facility] [address] Performing Lab: [facility] [address] CHOLESTEROL 129 See_Comm en t .HDL 36 [...] Aug 23, 2022 10:47 AM Reporting Lab: [facility] [address] Performing Lab: [facility] [address] TSH 1.54 0.35-4.94 Aug 23, 2022 11:16 AM [facility] CARDIAC TROPONIN I Specimen Type: PLASMA No comment entered. Ordering Provider: Serena ESQUIVEL Report Released Date/Time: Aug 23, 2022 10:47 AM Reporting Lab: [facility] [address] Performing Lab: [address] CARDIAC TROPONIN I <0.028 See_Jana t Aug 23, 2022 11:16 AM [facility] SED RATE Specimen Type: BLOOD No comment entered. Ordering Provider: Serena ESQUIVEL Report Released Date/Time: Aug 23, 2022 10:47 AM Reporting Lab: [facility] [address] Performing Lab: [facility] [address] SED RATE 31 H 5-15 Aug 23, 2022 11:16 AM [facility] C-REACTIVE PROTEIN Specimen Type: SERUM No comment entered. Ordering Provider: Serena ESQUIVEL Report Released Date/Time: Aug 23, 2022 10:47 AM Reporting Lab: [facility] [address] Performing Lab: [facility] [address] C-REACTIVE PROTEIN 3.14 See_Jana t Aug 23, 2022 11:16 AM [facility] PHOSPHORUS Specimen Type: PLASMA No comment entered. Ordering Provider: Serena ESQUIVEL Report Released Date/Time: Aug 23, 2022 10:47 AM Reporting Lab: [facility] [address] Performing Lab: [facility] [address] PHOSPHORUS 3.9 2.3-4.7 Aug 23, 2022 11:16 [...] Aug 23, 2022 10:47 AM Reporting Lab: [facility] [address] Performing Lab: [facility] [address] HEMOGLOBIN A1C 4.2 4.0-6.0 Aug 23, 2022 11:16 AM [facility] COMPREHENSIVE METABOLIC PANEL+MG Specimen Type: PLASMA No comment entered. Ordering Provider: Serena ESQUIVEL Report Released Date/Time: Aug 23, 2022 10:47 AM Reporting Lab: [facility] [address] Performing Lab: [facility] [address] CREATININE 0.8 0.7-1.2 UREA NITROGEN 15 8-26 [...] Aug 23, 2022 10:47 AM Reporting Lab: [facility] [address] Performing Lab: [facility] [address] WBC 5.11 4.0-11.0 RBC 3.87 L 4.6-6.2 [...] 0.02 0-0.1 Aug 23, 2022 11:14 AM [facility] POC CREATININE Specimen Type: BLOOD No comment entered. Ordering Provider: LAVONNE PANCHAL Report Released Date/Time: Aug 23, 2022 11:16 AM Reporting Lab: [facility] [address] Performing Lab: [facility] [address] POC CREATININE 0.8 0.6-1.3 Vital Signs: All taken on the encounter date This section contains inpatient and outpatient Vital Signs collected on the date of the Encounter. Date/Time Temperature Pulse Blood Pressure Respiratory Rate SP02 Pain Height Weight Body Mass Index Source Aug 23, 2022 10:34 AM 98.2 F 63 /min 128/72 mm[Hg] 94 % [facility] Social History: Smoking Status (Most current) and Tobacco Use (All prior to encounter date) This section includes the most current, and the historical, smoking and tobacco- related health factors from the [place] facility where the Encounter took place. Current Smoking Status This section includes the most current smoking, or tobacco-related health factor, from the [place] facility where the Encounter took place. Date/Time Current Smoking Status Comment Facil ity May 10, 2022 09:15 AM [place]-TOBACCO QUIT 15 YRS OR MORE [facility] Tobacco Use History This section includes a history of the smoking, or tobacco-related health factors, that were collected on or before the date of the Encounter. The data comes from the [place] facility where the Encounter took place. Date/Time Smoking Status/Tobacco Use Comment F acility May 10, 2022 09:15 AM [place]-TOBACCO [facility]IT [facility]RS [facility] MORE [facility] [...] ALL of a patient's completed or amended [place] Advance and Rescinded Directives. The entries below indicate that a directive exists for the patient, but an actual copy is not included with this document. The data comes from all [facility]. Date Advance Directives Provider Source Mar 18, 2003 ADVANCE DIRECTIVE FARHAT MELGAR [facility] Radiology Reports: +/- 30 days of [...] the Encounter. The data comes from all [place] treatment facilities. Date/Time Radiology Report Provider Source Aug 23, 2022 01:11 PM MRI-BRAIN (P): MARYJO VARGAS [id number] -1950 M Exm Date: AUG 23, 2022@13:11 Req Phys: DANIELSerena RUSSELL Renée Loc: [facility] EMERGENCY DEPT WALK-IN ([facility] Loc: MRI IMAGING Service: Unknown (Case [id number] COMPLETE) MRI BRAINBRAINSTEM W & W/O CONTRA(MRI Detailed) CPT:78505 Contrast Media : Gadolinium Reason for Study: APHASIA X3 DAYS Clinical History: MRI BRAIN WITH/WITHOUT CONTRAST IS NOT under investigation for COVID-19 or is COVID-19 negative Did the ordering provider speak with a research consultant regarding this imaging exam? Yes, Name of research consultant (resident or staff):Neurology Aphasia x 3 days Responsible provider name and phone number to notify for critical findings if other than user placing the order and pager listed below: User placing orders pager: [phone] LAST CREATININE 0.8 (08/23/22) Allergies: HAZELNUTS (Nov 21, 2002) Report Status: Verified Date Reported: AUG 23, 2022 Date Verified: AUG 23, 2022 Shank Turner E-Sig:/ES/TERESA SANTAMARIA MD Report: MRI BRAINBRAINSTEM W [...] in the left supratentorial compartment results in xhks-ph-gcpyk midline shift again measuring up to 1.4 [...] intracranial mass effect, with rightward subfalcine herniation (wwco-ig-urrdu midline shift measures up to 1.4 cm) [...] Primary Interpreting Staff: TERESA SANTAMARIA MD, RADIOLOGIST (Shank Turner) /[facility] [place] SANTAMAR[facility] Aug 23, 2022 12:03 PM CTA CAROTID/COW (P ): MARYJO VARGAS DIRK [id number] -1950 M Ex Date: AUG 23, 2022@12:03 Req Phys: Serena ESQUIVEL Pat Loc: [facility] EMERGENCY DEPT WALK-IN ([facility] Loc: CT IMAGING Service: Unknown (Case [id number] COMPLETE) CTA HEAD W/POSTPROCESSING (CT Detailed) CPT:45603 Contrast Media : unspecified contrast media Reason for Study: APHASIAx3 days (Case [id number] COMPLETE) CTA NECK (CT Detailed) CPT:76085 Contrast Media : unspecified contrast media Non-ionic [...] pager listed below: User placing orders pager: [phone] LAST 3: Collection DT Specimen Test Name [...] PLASMA ESTIMATED GFR(eGF >60 Ref: >=60 Allergies: ([place] only) HAZELNUTS (Nov 21, 2002) To see allergies from all [place] locations click Reports tab>Remote Data>All Available Sites>Clinical Reports>Allergies. Report Status: Verified Date Reported: AUG 23, 2022 Date Verified: AUG 23, 2022 Shank Turner E-Sig:/ES/TERESA SANTAMARIA MD Report: CTA HEAD W/POSTPROCESSING, [...] contribute to left cerebral white matter edema. Ayqi-xs-slrim midline shift measures up to 1.4 cm. [...] left lateral ventricle. Rightward subfalcine herniation, with bnux-xu-zsszu midline shift measuring up to 1.4 cm. [...] Primary Interpreting Staff: TERESA SANTAMARIA MD, RADIOLOGIST (Shank Turner) /[facility] [place] [facility] SANTAM[facility] Aug 23, 2022 09:29 AM ELBOW LEFT 3 OR MO RE VIEWS: MARYJO VARGAS [id number] -1950 M Exm Date: AUG 23, 2022@09:29 Req Phys: LEIF PANDA T Pat Loc: [facility] 2F (Req'g Img Loc: MAIN X-RAY Service: Unknown (Case [id number] COMPLETE) ELBOW LEFT 3 OR MORE VIEWS (RAD Detailed) CPT:84175 Reason for Study: postop Clinical History: IS NOT under investigation for COVID-19 or is COVID-19 negative postop Responsible provider name and phone number to notify for critical findings if other than user placing the order and pager listed below: User placing orders pager: [phone] LAST CREATININE 0.9 (07/19/22) Report Status: Verified Date Reported: AUG 23, 2022 Date Verified: AUG 23, 2022 Shank Turner E-Sig:/ES/ALBINA LEE MD Report: Exam: Left elbow [...] Primary Interpreting Staff: ALBINA LEE MD, RADIOLOGIST (Shank Turner) /[facility] Encounter Notes: All associated encounter notes This section contains the clinical notes associated to the Encounter. Date/Time Encounter Note(s) Provider Source Aug 23, 2022 04:48 PM NEUROLOGY CONSULT: LOCAL TITLE: NEUROLOGY CONSULT STANDARD TITLE: NEUROLOGY CONSULT DATE OF NOTE: AUG 23, 2022@16:48 ENTRY DATE: AUG 23, 2022@16:49:03 AUTHOR: CONCEPCIÓN STANFORD EXP COSIGNER: URGENCY: STATUS: COMPLETED NEUROLOGY CONSULT Has ADDENDA NEUROLOGY CONSULT Reason for Consultation: word finding difficulties Requesting Provider: Dr. 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 Pt and Lexi describe the aphasia as difficulty getting what he wants to say out and naming objects. They state that his comprehension is mostly intact. They also noticed some dragging of his right leg when pt walks, which has been worsening slightly since it began 3 days ago. Pt denies any numbness, tingling, and vision changes. He mentioned having a headache yesterday. PAST MEDICAL/SURGICAL HISTORY: Active problems - Computerized Problem List is the source for the followin. OBESITY, UNSP 2. LIVER CHEM, ABNORMAL 3. Adjustment Disorder with Mixed Anxiety and Depressed Mood 4. Other and unspecified Sleep Apnea 5. Elevated Prostate Specific Antigen (PSA) 6. Dysmetabolic Syndrome X 7. Polyp of colon (SNOMED CT [id number]) - 2011, repeat in 7-10 years, see report 8. Malignant tumor of prostate (SNOMED CT [id number]) 9. Benign hypertension 10. Retention of urine 11. Malignant tumor of kidney parenchyma 12. Multinodular goiter 13. Secondary malignant neoplasm of pancreas SOCIAL HISTORY: Denies tobacco use FAMILY HISTORY: No known family history of neurologic disease NEUROLOGIC EXAM: -Mental Status: Awake and alert. Pt could state his name and identify his , but could not name the month or his current location. Pt had difficulty producing speech and at times his speech became a word salad. Was able to identify/name a pen, but could not name glasses or a watch. He could name fingers on others and himself. Unable to repeat a short phrase or spell world. Left-right disorientation present. -Cranial Nerves: Visual bender full on confrontationatl testing. PERRL. EOMI with smooth pursuit. Facial sensation intact/symmetric. Normal facial movement of the forehead. Mild weakness of the right lower face. Hearing intact to conversation. No dysarthria or hypophonia. Shoulder shrug strong bilaterally. Tongue protrusion midline with full lateral motion. -Motor: No asterixis, tremors or other abnormal movements observed. Normal tone throughout. Strength mostly intact throughout bilateral upper and lower extremities. Some slight weakness in LUE, likely due to recent surgery due to L distal humerus pathologic fracture. Bulk - WNL Strength: R L Neck flexion 5 Neck ext 5 Should Abd 5 4+ Bicep Flex 5 4+ Tricep Ext 5 4+ Wrist Ext 5 4 Hip Flex 5 5 Knee Flex 5 5 Knee Ext 5 5 Dorsiflex 5 5 Plantarflex 5 5 -Sensory: Light touch intact/symmetric throughout upper and lower extremities. -Coordination: n/a -Station/Gait: n/a SUMMARY OF PERTINENT INVESTIGATIONS: MRI Brain w/ and w/o contrast 08/23/22 - per radiology Impression: 1. Enhancing mass centered at the [...] intracranial mass effect, with rightward subfalcine herniation (notk-qe-rmgwr midline shift measures up to 1.4 cm) [...] represent metastases than hemangiomas given lack of kerimt T2 hyperintensity. Corresponding hyperenhancing lesions were described in these locations on the CTA study performed earlier on 08/23/2022. 7. This study is overall at least moderately suboptimal due to motion artifact. IMPRESSION: Maryjo Vargas is a 72 year old male with a history of metastatic renal cell carcinoma, prostate cancer, who presents with mixed aphasia and mild encephalopathy. MRI revealed an enhancing mass centered at the posterior body of the left lateral ventricle that is likely intraventricular in origin, which is causing midline shift of ventricles and vasogenic edema. Edema likely causing patient's aphasia. Agree with radiology impression that this is most likely metastatic rather than a new primary tumor. RECOMMENDATIONS #Intraventricular mass, likely metastatic renal cell carcinoma - agree with neurosurgery consult - dexamethasone 4 mg x1 now - continue dexamethasone 4 mg twice daily at 0600 and 1200 - start PPI for ulcer prophylaxis - start Bactrim 160-800 every Sunday, Sunday, Sunday for PCP prophylaxis - start Vit D/Calcium supplement - sodium goal: normonatremia - HOB elevated at 30 degrees, neck midline - avoid hypotonic fluids Neurology will continue to follow. Patient seen and discussed with neurology attending, Dr. Caldwell, who agrees with my assessment and plan. Concepción Stanford MD Neurology Resident PGY-2 /sangita/ CONCEPCIÓN STANFORD MD RESIDENT Signed: 08/23/2022 17:12 Receipt Acknowledged By: 08/24/2022 15:41 /sangita/ BENNY CALDWELL Physician 08/24/2022 ADDENDUM STATUS: COMPLETED NEUROLOGY ADDENDUM BY STAFF ATTENDING: I have independently examined and discussed the case with the resident and team. Agree with the above note and assessment and plan. /sangita/ BENNY CALDWELL Physician Signed: 08/24/2022 15:35 CONCEPCIÓN STANF[facility]
--- OUTSIDE RECORDS SUMMARY | 2023-03-24 08:33 | XMS_ITS | Encounter Summary ---
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 [facility] Organization Department of [facility] Address [address] [place] [address] Support Name Relationship Address Phone DOREEN WAGNER Next of Kin [address] [place] [phone] DOREEN Emergency Contact [address] [place] [phone] Insurance Providers: All historical and current Section Date Range: From patient's date of to the date document was created. This section includes the names of all active insurance providers for the patient. Insurance Provider Type of Coverage Plan Name Start of Policy Coverage End of Policy Coverage Group Number Member ID Insurance Provider's Telephone Number Policy Casey's Name Patient's Relationship to Policy Casey [employer] [facility] (WNR) MEDICARE ADVANTAGE [facility] ([facility]) June 26, 2016 [id number] CARSONJOAN ROWELL PATIENT [employer] [facility] (WNR) MEDICARE ADVANTAGE [facility] (WNR) June 26, 2016 [id number] JOAN WAGNER KARSTEN PATIENT [employer] (WNR) MEDICARE ADVANTAGE [facility] (WNR) June 26, 2016 [id number] [phone] JOAN WAGNER KARSTEN PATIENT Selected Encounter This section includes the information on record at ID for the Encounter. Date/Time Encounter Type Encounter Description Reason Provider Source Aug 23, 2022 01:00 AM Outpatient Encounter ADMIN [employer] SYSTEM,[employer] Encounter Template Text not used by ID Plan of Treatment: Future Appointments (+ 6 [...] 20 appointments. The data comes from all [facility]. Appointment Date/Time Appointment Type Appointme nt Facility Name Sep 06, 2022 10:15 AM AMBULATORY - SURGERY [facility] Oct 25, 2022 07:00 AM AMBULATORY - NONE [facility] Oct 25, 2022 07:30 AM [...] of theEncounter. The data comes from all [facility]. Test Date/Time Test Type Test Details Facility Name July 14, 2022 12:00 AM Laboratory - Blood Bank Order ABO/RH - LAB BLOOD [facility] July 14, 2022 02:05 PM Laboratory - Blood Bank Order TYPE & SCREEN - LAB BLOOD [facility] Aug 07, 2022 11:23 AM Laboratory - Chemi stry Order DRUG SCREEN PANEL,URINE URINE [facility] Aug 23, 2022 10:47 AM Laboratory - Chemi stry Order URINALYSIS URINE ER STAT [facility] Lab Results: +/- 30 days of [...] Range Comment Aug 24, 2022 12:15 PM [facility] URINALYSIS Specimen Type: URINE No comment entered. Ordering Provider: LUCIO KIM Report Released Date/Time: Aug 24, 2022 09:34 AM Reporting Lab: [facility] [id number] Performing Lab: [facility] [address] URINE COLOR YELLOW SPECIFIC GRAVITY 1.030 1.003-1.03 [...] See_Commen t Aug 23, 2022 11:16 AM [facility] PROTHROMBIN TIME/INR Specimen Type: PLASMA No comment entered. Ordering Provider: Serena ESQUIVEL Report Released Date/Time: Aug 23, 2022 10:47 AM Aug 23, 2022 11:16 AM [facility] ACT PART THROMBO TIME Specimen Type: PLASMA No comment entered. Ordering Provider: Serena ESQUIVEL Report Released Date/Time: Aug 23, 2022 10:47 AM Reporting Lab: [facility] [id number] Performing Lab: [facility] [address] APTT 30.2 25.1-36.5 Aug 23, 2022 11:16 AM [facility] LIPID PANEL,NON-FASTING Specimen Type: PLASMA No comment entered. Ordering Provider: Serena ESQUIVEL Report Released Date/Time: Aug 23, 2022 10:47 AM Reporting Lab: [facility] [id number] Performing Lab: [facility] [address] CHOLESTEROL 129 See_Comm en t .HDL 36 L See_Commen t LDL CALCULATION 68 See_ Commen t VLDL CALCULATION 25 See_Commen t NON HDL CHOLESTEROL 93 See_Commen t TRIG(NON FASTING) 123 See_Commen t Aug 23, 2022 11:16 AM [facility] TSH W/REFLEX TO FREE T4 Specimen Type: PLASMA No comment entered. Ordering Provider: Serena ESQUIVEL Report Released Date/Time: Aug 23, 2022 10:47 AM Reporting Lab: [facility] [id number] Performing Lab: [facility] [address] TSH 1.54 0.35-4.94 Aug 23, 2022 11:16 AM [facility] CARDIAC TROPONIN I Specimen Type: PLASMA No comment entered. Ordering Provider: Serena ESQUIVEL Report Released Date/Time: Aug 23, 2022 10:47 AM Reporting Lab: [facility] [address] Performing Lab: [place] [phone] CARDIAC TROPONIN I <0.028 See_Commen t Aug 23, 2022 11:16 AM [facility] SED RATE Specimen Type: BLOOD No comment entered. Ordering Provider: Serena ESQUIVEL Report Released Date/Time: Aug 23, 2022 10:47 AM Reporting Lab: [facility] [id number] Performing Lab: [facility] [address] SED RATE 31 H 5-15 Aug 23, 2022 11:16 AM [facility] C-REACTIVE PROTEIN Specimen Type: SERUM No comment entered. Ordering Provider: Serena ESQUIVEL Report Released Date/Time: Aug 23, 2022 10:47 AM Reporting Lab: [facility] [phone] Performing Lab: [facility] [address] C-REACTIVE PROTEIN 3.14 See_Commen t Aug 23, 2022 11:16 AM [facility] PHOSPHORUS Specimen Type: PLASMA No comment entered. Ordering Provider: Serena ESQUIVEL Report Released Date/Time: Aug 23, 2022 10:47 AM Reporting Lab: [facility] [id number] Performing Lab: [facility] [address] PHOSPHORUS 3.9 2.3-4.7 Aug 23, 2022 11:16 AM [facility] HEMOGLOBIN A1C Specimen Type: [...] Aug 23, 2022 10:47 AM Reporting Lab: [facility] [address] Performing Lab: [facility] [phone] HEMOGLOBIN A1C 4.2 4.0-6.0 Aug 23, 2022 11:16 AM [facility] COMPREHENSIVE METABOLIC PANEL+MG Specimen Type: PLASMA No comment entered. Ordering Provider: Serena ESQUIVEL Report Released Date/Time: Aug 23, 2022 10:47 AM Reporting Lab: [facility] [address] Performing Lab: [facility] [address] CREATININE 0.8 0.7-1.2 UREA NITROGEN 15 8-26 [...] See_Commen t Aug 23, 2022 11:16 AM [facility] CBC & DIFF Specimen Type: BLOOD Comment: Automated Differential Performed Ordering Provider: Serena ESQUIVEL Report Released Date/Time: Aug 23, 2022 10:47 AM Reporting Lab: [facility] [address] Performing Lab: [facility] [address] WBC 5.11 4.0-11.0 RBC 3.87 L 4.6-6.2 [...] 0.02 0-0.1 Aug 23, 2022 11:14 AM [facility] POC CREATININE Specimen Type: BLOOD No comment entered. Ordering Provider: LAVONNE PANCHAL Report Released Date/Time: Aug 23, 2022 11:16 AM Reporting Lab: [facility] [address] Performing Lab: [facility] [address] POC CREATININE 0.8 0.6-1.3 Vital Signs: All taken on the encounter date This section contains inpatient and outpatient Vital Signs collected on the date of the Encounter. Date/Time Temperature Pulse Blood Pressure Respiratory Rate SP02 Pain Height Weight Body Mass Index Source Aug 23, 2022 10:34 AM 98.2 F 63 /min 128/72 mm[Hg] 94 % [facility] Social History: Smoking Status (Most [...] 10, 2022 09:15 AM VA-TOBACCO FORMER USER [facility] Tobacco Use History This section includes a history of the smoking, or tobacco-related health factors, that were collected on or before the date of the Encounter. The data comes from the ID facility where the Encounter took place. Date/Time Smoking Status/Tobacco Use Comment F acility May 10, 2022 09:15 AM VA-TOBACCO QUIT 15 YRS OR MORE [facility] May 11, 2021 09:15 AM VA-TOBACCO FORMER USER [facility] May 11, 2021 09:15 AM VA-TOBACCO QUIT 15 YRS OR MORE [facility] Nov 22, 2018 01:36 PM VA-TOBACCO NEVER USED [facility] Nov 12, 2017 07:35 AM FORMER TOBACCO USER 7Y OR GREATE R [facility] Nov 06, 2016 09:05 AM FORMER TOBACCO USER 7Y OR GREATE R [facility] Sep 27, 2015 09:42 AM FORMER TOBACCO USER 7Y OR GREATE R [facility] Sep 25, 2014 07:55 AM FORMER TOBACCO USER 7Y OR GREATE R [facility] Sep 08, 2013 07:48 AM FORMER TOBACCO USER 7Y OR GREATE R [facility] July 09, 2012 09:20 AM FORMER TOBACCO USE >1Y <7Y [facility] Jun 06, 2011 07:53 AM FORMER TOBACCO USE >1Y <7Y [facility] Sep 09, 2009 03:03 PM FORMER TOBACCO USE >1Y <7Y [facility] Aug 11, 2008 01:06 PM FORMER TOBACCO USE <1Y [facility] Sep 19, 2007 02:52 PM CURRENT TOBACCO USER [facility] Sep 03, 2006 03:32 PM CURRENT TOBACCO USER [facility] Advance Directives: All historical and current Section Date Range: From patient's date of to the date document was created. This section includes ALL of a patient's completed or amended ID Advance and Rescinded Directives. The entries below indicate that a directive exists for the patient, but an actual copy is not included with this document. The data comes from all ID facilities. Date Advance Directives Provider Source Mar 18, 2003 ADVANCE DIRECTIVE [facility] Radiology Reports: +/- 30 days of [...] 2022 01:11 PM MRI-BRAIN (P): MARYJO WAGNER [id number] -[id number] M Exm Date: AUG 23, 2022@13:11 Req Phys: Serena ESQUIVEL Pat Loc: [facility] EMERGENCY DEPT WALK-IN (Re Img Loc: MRI IMAGING Service: Unknown (Case [id number] COMPLETE) MRI BRAINBRAINSTEM W & W/O CONTRA(MRI Detailed) CPT:07539 Contrast Media : Gadolinium Reason for Study: APHASIA X3 DAYS Clinical History: MRI BRAIN WITH/WITHOUT CONTRAST IS NOT under investigation for COVID-19 or is COVID-19 negative Did the ordering provider speak with a technical consultant regarding this imaging exam? Yes, Name of technical consultant (resident or staff):Neurology Aphasia x 3 days Responsible provider name and phone number to notify for critical findings if other than user placing the order and pager listed below: User placing orders pager: [phone] [id number] LAST CREATININE 0.8 (08/23/22) Allergies: HAZELNUTS (Nov 21, 2002) Report Status: Verified Date Reported: AUG 23, 2022 Date Verified: AUG 23, 2022 Masseur/M[employer]use E-Sig:/ES/TERESA SANTAMARIA MD Report: MRI BRAINBRAINSTEM W [...] in the left supratentorial compartment results in tdrz-jz-wnwzo midline shift again measuring up to 1.4 [...] intracranial mass effect, with rightward subfalcine herniation (yzby-yl-dpifa midline shift measures up to 1.4 cm) [...] Primary Interpreting Staff: TERESA SANTAMARIA MD, RADIOLOGIST ([place]asseur/Masseuse) /[facility] TERESA SANTAMARIA [facility] Aug 23, 2022 12:03 PM CTA CAROTID/COW (P ): MARYJO WAGNER [id number] -[id number] M Ex Date: AUG 23, 2022@12:03 Req Phys: Sreena ESQUIVEL Pat Loc: [facility] EMERGENCY DEPT WALK-IN (Re Im Loc: CT IMAGING Service: Unknown (Case [id number] COMPLETE) CTA HEAD W/POSTPROCESSING (CT Detailed) CPT:11099 Contrast Media : unspecified contrast media Reason for Study: APHASIAx3 days (Case [id number] COMPLETE) CTA NECK (CT Detailed) CPT:86710 Contrast Media : unspecified contrast media Non-ionic Iodinated Clinical History: HEAD/NECK CTA [place] IS NOT under investigation for COVID-19 or is COVID-19 negative Defer to radiologist for final CT protocol. Please enter pertinent clinical history on the next page. Responsible provider name and phone number to notify for critical findings if other than user placing the order and pager listed below: User placing orders pager: [phone] [id number] LAST 3: Collection DT Specimen Test Name [...] PLASMA ESTIMATED GFR(eGF >60 Ref: >=60 Allergies: ([place] only) HAZELNUTS (Nov 21, 2002) To see allergies from all [facility] locations click Reports tab>Remote Data>All Available Sites>Clinical Reports>Allergies. Report Status: Verified Date Reported: AUG 23, 2022 Date Verified: AUG 23, 2022 Masseur/Masseuse E-Sig:/ES/TERESA SANTAMARIA MD Report: CTA HEAD W/POSTPROCESSING, [...] contribute to left cerebral white matter edema. Zbld-sh-jczxu midline shift measures up to 1.4 cm. [...] left lateral ventricle. Rightward subfalcine herniation, with qoph-md-ypsfc midline shift measuring up to 1.4 cm. [...] Primary Interpreting Staff: TERESA SANTAMARIA MD, RADIOLOGIST ([place]asse[place]/Masseuse) /[facility] TERESA SANTAMARIA [facility] Aug 23, 2022 09:29 AM ELBOW LEFT 3 OR MO RE VIEWS: MARYJO WAGNER [id number] -1950 M Exm Date: AUG 23, 2022@09:29 Req Phys: LEIF PANDA Pat Loc: [facility] ORTHO OT KENA 2F (Req'g Img Loc: MAIN X-RAY Service: Unknown (Case [id number] COMPLETE) ELBOW LEFT 3 OR MORE VIEWS (RAD Detailed) CPT:98939 Reason for Study: postop Clinical History: [place] IS NOT under investigation for COVID-19 or is COVID-19 negative postop Responsible provider name and phone number to notify for critical findings if other than user placing the order and pager listed below: User placing orders pager: [phone] LAST CREATININE 0.9 (07/19/22) Report Status: Verified Date Reported: AUG 23, 2022 Date Verified: AUG 23, 2022 Masseur/Masseuse E-Sig:/ES/ALBINA LEE MD Report: Exam: Left elbow [...] Primary Interpreting Staff: ALBINA LEE MD, RADIOLOGIST (Masseur/Masseuse) /ALBINA SALEH [facility] Encounter Notes: All associated encounter notes This section contains the clinical notes associated to the Encounter. Date/Time Encounter Note(s) Provider Source Aug 23, 2022 01:00 AM CRITICAL CARE UNIT NOTE: LOCAL TITLE: [facility] EMERGENCY DEPT FLOWSHEET STANDARD TITLE: CRITICAL CARE UNIT NOTE DATE OF NOTE: AUG 23, 2022@01:00 ENTRY DATE: AUG 24, 2022@01:31:53 AUTHOR: JAZNOTIKGodfrey EXP COSIGNER: URGENCY: STATUS: COMPLETED This is a place casey only. Please see [facility] to view document. /es/ [employer] SYSTEM ICU DOCUMENT IMPORT Signed: 08/24/2022 01:31 SYSTEM,[employer]ARK [facility] Aug 23, 2022 01:00 AM CRITICAL CARE UNIT NOTE: LOCAL TITLE: [facility] RESPIRATORY THERAPY FLOWSHEET STANDARD TITLE: CRITICAL CARE UNIT NOTE DATE OF NOTE: AUG 23, 2022@01:00 ENTRY DATE: AUG 24, 2022@17:53:33 AUTHOR: SHARRI SEBASTIAN EXP COSIGNER: URGENCY: STATUS: COMPLETED This is a place casey only. Please see [employer] to view document. /es/ JOHN-YI SYSTEM ICU DOCUMENT IMPORT Signed: 08/24/2022 17:53 SHARRI SEBASTIAN [facility]
--- OUTSIDE RECORDS SUMMARY | 2023-03-24 08:34 | XMS_ITS | Encounter Summary ---
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 Address [address] [place] [address] Support Name Relationship Address Phone ANNA WAGNER Next of Kin [address] [place] [phone] ANNA Emergency Contact [address] [place] [phone] Insurance Providers: All historical and current [...] [place]'s Name Patient's Relationship to Policy [place] [facility] ([facility]) MEDICARE [facility] ([facility]) June 26, 2016 [id number] JOAN WAGNER PATIENT [employer] M[employer] (WNR) MEDICARE ADVANTAGE [facility] ([facility]) June 26, 2016 [id number] JOAN WAGNER PATIENT [employer] MCR (WNR) MEDICARE ADVANTAGE [facility] ([facility]) June 26, 2016 [id number] [phone] JOAN WAGNER PATIENT Selected Encounter This section includes the information on record at [place] for the Encounter. Date/Time Encounter Type Encounter Description Reason Provider Source Aug 24, 2022 09:18 AM IP/OBS CONSLTJ NEW/EST HI 80 PALLIATIVE CARE ICD-10-CM C64.2 Malignant neoplasm of left kidney, except renal pelvis ELIJAH BARRAZA Encounter Template Text not used by [place] Assessments - Encounter Diagnoses This section includes the primary and secondary diagnoses documented for the Encounter. Date/Time Primary/Secondary Diagnosis Diagnosis Name Provider Source Aug 24, 2022 10:52 AM PRIMARY Malignant neoplasm of left kidney, except renal pelvis ELIJAH BARRAZA [facility] Aug 24, 2022 10:52 AM SECONDARY Aphasia ELIJAH BARRAZA [facility] Aug 24, 2022 10:52 AM SECONDARY Encounter for palliative care ELIJAH BARRAZA [facility] Plan of Treatment: Future Appointments (+ 6 months) and Future Tests (+/- 45 days) The Plan of Treatment section includes future care activities for the patient from all [place] [facility] This section includes future appointments and future orders which are active, pending or scheduled. Future Appointments This section includes appointments that were scheduled to occur 6 months from the date of the Encounter, up to a maximum of 20 appointments. The data comes from all [facility]. Appointment Date/Time Appointment Type Appointme nt Facility Name Sep 06, 2022 10:15 AM AMBULATORY - SURGERY [facility] Oct 25, 2022 07:00 AM AMBULATORY - NONE [facility] Oct 25, 2022 07:30 AM AMBULATORY - SURGERY [facility] Oct 25, 2022 09:00 AM AMBULATORY - SURGERY [facility] Active, Pending, and Scheduled Orders This section includes a listing of several types of active, pending, and scheduled orders, including clinic medications orders, diagnostic test orders, procedure orders and consult orders; where the start date of the order is 45 days before the date of the Encounter or 45 days after the date of theEncounter. The data comes from all [facility]. Test Date/Time Test Type Test Details Facility Name July 14, 2022 12:00 AM Laboratory - Blood Bank Order ABO/RH - LAB BLOOD [facility] July 14, 2022 02:05 PM Laboratory - Blood Bank Order TYPE & SCREEN - LAB BLOOD [facility] Aug 07, 2022 11:23 AM Laboratory - Chemi stry Order DRUG SCREEN PANEL,URINE URINE ONCE [facility] Aug 23, 2022 10:47 AM Laboratory - Chemi stry Order URINALYSIS URINE ER STAT [facility] Lab Results: +/- 30 days of the [...] Range Comment Aug 24, 2022 12:15 PM [facility] URINALYSIS Specimen Type: URINE No comment entered. Ordering Provider: LUCIO KIM Report Released Date/Time: Aug 24, 2022 09:34 AM Reporting Lab: [facility] [id number] Performing Lab: [facility] [address] URINE COLOR YELLOW SPECIFIC GRAVITY 1.030 1.003-1.03 [...] See_Commen t Aug 23, 2022 11:16 AM [facility] PROTHROMBIN TIME/INR Specimen Type: PLASMA No comment entered. Ordering Provider: Serena ESQUIVEL Report Released Date/Time: Aug 23, 2022 10:47 AM Aug 23, 2022 11:16 AM [facility] ACT PART THROMBO TIME Specimen Type: PLASMA No comment entered. Ordering Provider: Serena ESQUIVEL Report Released Date/Time: Aug 23, 2022 10:47 AM Reporting Lab: [facility] [id number] Performing Lab: [facility] [address] APTT 30.2 25.1-36.5 Aug 23, 2022 11:16 AM [facility] LIPID PANEL,NON-FASTING Specimen Type: PLASMA No comment entered. Ordering Provider: Serena ESQUIVEL Report Released Date/Time: Aug 23, 2022 10:47 AM Reporting Lab: [facility] [id number] Performing Lab: [facility] [address] CHOLESTEROL 129 See_Comm en t .HDL 36 L See_Commen t LDL CALCULATION 68 See_ Commen t VLDL CALCULATION 25 See_Commen t NON HDL CHOLESTEROL 93 See_Commen t TRIG(NON FASTING) 123 See_Commjd t Aug 23, 2022 11:16 AM [facility] TSH W/REFLEX TO FREE T4 Specimen Type: PLASMA No comment entered. Ordering Provider: Serena ESQUIVEL Report Released Date/Time: Aug 23, 2022 10:47 AM Reporting Lab: [facility] [id number] Performing Lab: [facility] [address] TSH 1.54 0.35-4.94 Aug 23, 2022 11:16 AM [facility] CARDIAC TROPONIN I Specimen Type: PLASMA No comment entered. Ordering Provider: Serena ESQUIVEL Report Released Date/Time: Aug 23, 2022 10:47 AM Reporting Lab: [facility] [address] Performing Lab: [facility] [address] CARDIAC TROPONIN I <0.028 See_Jana t Aug 23, 2022 11:16 AM [facility] SED RATE Specimen Type: BLOOD No comment entered. Ordering Provider: Serena ESQUIVEL Report Released Date/Time: Aug 23, 2022 10:47 AM Reporting Lab: [facility] [address] Performing Lab: [facility] [address] SED RATE 31 H 5-15 Aug 23, 2022 11:16 AM [facility] C-REACTIVE PROTEIN Specimen Type: SERUM No comment entered. Ordering Provider: Serena ESQUIVEL Report Released Date/Time: Aug 23, 2022 10:47 AM Reporting Lab: [facility] [address] Performing Lab: [facility] [address] C-REACTIVE PROTEIN 3.14 See_Jana t Aug 23, 2022 11:16 AM [facility] PHOSPHORUS Specimen Type: PLASMA No comment entered. Ordering Provider: Serena ESQUIVEL Report Released Date/Time: Aug 23, 2022 10:47 AM Reporting Lab: [facility] [address] Performing Lab: [facility] [address] PHOSPHORUS 3.9 2.3-4.7 Aug 23, 2022 11:16 AM [facility] HEMOGLOBIN A1C Specimen Type: BLOOD [...] Aug 23, 2022 10:47 AM Reporting Lab: [facility] [address] Performing Lab: [facility] [address] HEMOGLOBIN A1C 4.2 4.0-6.0 Aug 23, 2022 11:16 AM [facility] COMPREHENSIVE METABOLIC PANEL+MG Specimen Type: PLASMA No comment entered. Ordering Provider: Serena ESQUIVEL Report Released Date/Time: Aug 23, 2022 10:47 AM Reporting Lab: [facility] [address] Performing Lab: [facility] [address] CREATININE 0.8 0.7-1.2 UREA NITROGEN 15 8-26 [...] See_Commen t Aug 23, 2022 11:16 AM [facility] CBC & DIFF Specimen Type: BLOOD Comment: Automated Differential Performed Ordering Provider: Serena ESQUIVEL Report Released Date/Time: Aug 23, 2022 10:47 AM Reporting Lab: [facility] [address] Performing Lab: [facility] [address] WBC 5.11 4.0-11.0 RBC 3.87 L 4.6-6.2 [...] 0.02 0-0.1 Aug 23, 2022 11:14 AM [facility] POC CREATININE Specimen Type: BLOOD No comment entered. Ordering Provider: LAVONNE PANCHAL Report Released Date/Time: Aug 23, 2022 11:16 AM Reporting Lab: [facility] [address] Performing Lab: [facility] [address] POC CREATININE 0.8 0.6-1.3 Social History: Smoking [...] 10, 2022 09:15 AM VA-TOBACCO FORMER USER [facility] Tobacco Use History This section includes a history of the smoking, or tobacco-related health factors, that were collected on or before the date of the Encounter. The data comes from the [place] facility where the Encounter took place. Date/Time Smoking Status/Tobacco Use Comment F acility May 10, 2022 09:15 AM VA-TOBACCO QUIT 15 YRS OR MORE [facility] May 11, 2021 09:15 AM VA-TOBACCO FORMER USER [facility] May 11, 2021 09:15 AM VA-TOBACCO QUIT 15 YRS OR MORE [facility] Nov 22, 2018 01:36 PM VA-TOBACCO NEVER USED [facility] Nov 12, 2017 07:35 AM FORMER TOBACCO USER 7Y OR GREATE R [facility] Nov 06, 2016 09:05 AM FORMER TOBACCO USER 7Y OR GREATE R [facility] Sep 27, 2015 09:42 AM FORMER TOBACCO USER 7Y OR GREATE R [facility] Sep 25, 2014 07:55 AM FORMER TOBACCO USER 7Y OR GREATE R [facility] Sep 08, 2013 07:48 AM FORMER TOBACCO USER 7Y OR GREATE R [facility] July 09, 2012 09:20 AM FORMER TOBACCO USE >1Y <7Y [facility] Jun 06, 2011 07:53 AM FORMER TOBACCO USE >1Y <7Y [facility] Sep 09, 2009 03:03 PM FORMER TOBACCO USE >1Y <7Y [facility] Aug 11, 2008 01:06 PM FORMER TOBACCO USE <1Y [facility] Sep 19, 2007 02:52 PM CURRENT TOBACCO USER [facility] Sep 03, 2006 03:32 PM CURRENT TOBACCO USER [facility] Advance Directives: All historical and current Section Date Range: From patient's date of to the date document was created. This section includes ALL of a patient's completed or amended [place] Advance and Rescinded Directives. The entries below indicate that a directive exists for the patient, but an actual copy is not included with this document. The data comes [facility]. Date Advance Directives Provider Source Mar 18, [...] 2022 01:11 PM MRI-BRAIN (P): MARYJO WAGNER [id number] -[id number] M Exm Date: AUG 23, 2022@13:11 Req Phys: Serena ESQUIVEL Pat Loc: [facility] EMERGENCY DEPT WALK-IN (Re Img Loc: MRI IMAGING Service: Unknown (Case [id number] COMPLETE) MRI BRAINBRAINSTEM W & W/O CONTRA(MRI Detailed) CPT:09571 Contrast Media : Gadolinium Reason for Study: APHASIA X3 DAYS Clinical History: MRI BRAIN WITH/WITHOUT CONTRAST IS NOT under investigation for COVID-19 or is COVID-19 negative Did the ordering provider speak with a sales consultant regarding this imaging exam? Yes, Name of sales consultant (resident or staff):Neurology Aphasia x 3 days Responsible provider name and phone number to notify for critical findings if other than user placing the order and pager listed below: User placing orders pager: [phone] LAST CREATININE 0.8 (08/23/22) Allergies: HAZELNUTS (Nov 21, 2002) Report Status: Verified Date Reported: AUG 23, 2022 Date Verified: AUG 23, 2022 Project Management E-Sig:/ES/TERESA SANTAMARIA MD Report: MRI BRAINBRAINSTEM W [...] in the left supratentorial compartment results in yxzl-kk-rlwsh midline shift again measuring up to 1.4 [...] intracranial mass effect, with rightward subfalcine herniation (nmmm-xy-nsnih midline shift measures up to 1.4 cm) [...] Primary Interpreting Staff: TERESA SANTAMARIA MD, RADIOLOGIST (Project Management) /[facility] TERESA SANTAMARIA [facility] Aug 23, 2022 12:03 PM CTA CAROTID/COW (P ): MARYJO WAGNER [id number] -[id number] Ex Date: AUG 23, 2022@12:03 Req Phys: Serena ESQUIVEL Pat Loc: [facility] EMERGENCY DEPT WALK-IN ([facility] Loc: CT IMAGING Service: Unknown (Case [id number] COMPLETE) CTA HEAD W/POSTPROCESSING (CT Detailed) CPT:64926 Contrast Media : unspecified contrast media Reason for Study: APHASIAx3 days (Case [id number] COMPLETE) CTA NECK (CT Detailed) CPT:70554 Contrast Media : unspecified contrast media Non-ionic [...] pager listed below: User placing orders pager: [phone] LAST 3: Collection DT Specimen Test Name [...] PLASMA ESTIMATED GFR(eGF >60 Ref: >=60 Allergies: ([place] only) HAZELNUTS (Nov 21, 2002) To see allergies from all [facility] locations click Reports tab>Remote Data>All Available Sites>Clinical Reports>Allergies. Report Status: Verified Date Reported: AUG 23, 2022 Date Verified: AUG 23, 2022 Project Management E-Sig:/ES/TERESA SANTAMARIA MD Report: CTA HEAD W/POSTPROCESSING, [...] contribute to left cerebral white matter edema. Nzsg-wo-irllu midline shift measures up to 1.4 cm. [...] left lateral ventricle. Rightward subfalcine herniation, with ajxp-fy-vybdy midline shift measuring up to 1.4 cm. [...] Primary Interpreting Staff: TERESA SANTAMARIA MD, RADIOLOGIST (Project Management) /[facility] TERESA SANTAMARIA [facility] Aug 23, 2022 09:29 AM ELBOW LEFT 3 OR [place] RE VIEWS: MARYJO WAGNER [id number] -[id number] M Exm Date: AUG 23, 2022@09:29 Req Phys: LEIF PANDA Pat Loc: [facility] ORTHO OT KENA 2F (Req'g Img Loc: MAIN X-RAY Service: Unknown (Case [id number] COMPLETE) ELBOW LEFT 3 OR MORE VIEWS (RAD Detailed) CPT:39672 Reason for Study: postop Clinical History: IS NOT under investigation for COVID-19 or is COVID-19 negative postop Responsible provider name and phone number to notify for critical findings if other than user placing the order and pager listed below: User placing orders pager: [phone] LAST CREATININE 0.9 (07/19/22) Report Status: Verified Date Reported: AUG 23, 2022 Date Verified: AUG 23, 2022 Project Management E-Sig:/ES/ALBINA LEE MD Report: Exam: Left elbow [...] Primary Interpreting Staff: ALBINA LEE MD, RADIOLOGIST (Project Management) /ALBINA SALEH [facility] Encounter Notes: All associated encounter notes This section contains the clinical notes associated to the Encounter. Date/Time Encounter Note(s) Provider Source Aug 24, 2022 09:18 AM PALLIATIVE CARE CO NSULT: LOCAL TITLE: PALLIATIVE CARE CONSULT STANDARD TITLE: PALLIATIVE CARE CONSULT DATE OF NOTE: AUG 24, 2022@09:18 ENTRY DATE: AUG 24, 2022@09:18:34 AUTHOR: ELIJAH BARRAZA EXP COSIGNER: URGENCY: STATUS: COMPLETED Palliative Care Consult Note Reason for Consult:intro Source:Patient, Family , [facility] History of Present Illness: 72m with metastatic RCC, prostate CA, admit 06/2022 with pathologic fracture s/p surgery left humerus admitted 07/23 with speech changes and weakness found to have brain mets. MRI with mass left lateral ventricle with mass effect and herniatino, vasogenic edema. Regarding his cancer, seen by oncology 04/2022 who note metastatic RCC since 2018(kidney, pancreas, adrenal and possible pulmonary mets) who has declined treatment in the past and was followed by urology with regular imaging. They offered combined chemo regimen, patient refused but, initially, agreed to dual immunotherapy and then declined. Neurosurgery involved this admit, patient declined surgery. Started on steroids. Noted to be confused by bedside RN and confused overnight. Needs moderate assist 1-2 for ambulation and now in wheelchair. Patient and agreed to palliative care and discussing hospice. Patient with aphasia and likely confusion which limits discussion. Denies pain, SOB, n/v, or confusion. Medications: Active Inpatient Medications (including Supplies): Active Inpatient Medications Status ========= 1) ACETAMINOPHEN (INPT) TAB 650MG PO Q4H PRN FOR PAIN ACTIVE (1st line): MAX DOSE of acetaminophen is 4000mg in 24 hours 2) CALCITRIOL CAP,ORAL 0.5MCG PO BID ACTIVE 3) DEXAMETHASONE INJ,SOLN DEXAMETHASONE 4 MG in [...] CONSTIPATION. MIX IN JUICE OR WATER. 11) SULFAMETHOXAZOLE/TRIMETHOPRIM TAB 800/160 MG PO ACTIVE MO-WE-FR@0900 Allergies: HAZELNUTS (Nov 21, 2002) Past Medical History: Active problems - Computerized Problem List is the source for the followin. OBESITY, UNSP 2. LIVER CHEM, ABNORMAL 3. Adjustment Disorder with Mixed Anxiety and Depressed Mood 4. Other and unspecified Sleep Apnea 5. Elevated Prostate Specific Antigen (PSA) 6. Dysmetabolic Syndrome X 7. Polyp of colon (SNOMED CT 28493455) - 2012, repeat in 7-10 years, see report 8. Malignant tumor of prostate (SNOMED CT 254407744) 9. Benign hypertension 10. Retention of urine 11. Malignant tumor of kidney parenchyma 12. Multinodular goiter 13. Secondary malignant neoplasm of pancreas Social Domain: Lives with his of 51 years, Anna. They have 4 kids who are involved in their lives. 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 Health Care Proxy: is default surrogate, no AD on file History:[employer] Psychological Domain: none listed Patient Primary Care Provider:JUANY WYNN Palliative Symptom Assessment: Pain: none Dyspnea: none Nausea: none Vomiting: none Constipation: none Diarrhea: none Anorexia: none Agitation: none Confusion: none Fatigue: none Depression: none Anxiety: none Insomnia: none PHYSICAL EXAM Patient Weight:Measurement DT WEIGHT LB(KG)[BMI] 07/28/2022 10:23 245(111.13)[33*] 07/13/2022 16:25 240.0(108.86)[33*] 05/17/2022 07:44 249.9(113.35)[34*] Most Recent Vital Signs: Temperature:98.2 F [36.8 C] (08/23/2022 10:34) Pulse:63 (08/23/2022 10:34) Respiratory Rate: 16 (08/13/2022 18:16) Blood Pressure: 128/72 (08/23/2022 10:34) Pulse Oxymetry: 94% (08/23/2022 10:34) Pain: 9 (08/13/2022 18:16) General: No acute distress, awake and alert, seated in wheelchair Pulmonary: No increased work of breathing, normal RR Neurologic: Moves all four extremities, awake and alert, able to get words out but content does not seem appropriate. For example, when talking about his cancer I was supposed to in 50 of them. Psych: calm, pleasant, does not appear frustrated Labs: [facility] - Lab Cum Selected No selection items chosen for this component. CREATININE 0.8 (08/23/22) CALCIUM 9.2 (08/23/22) ALBUMIN 3.8 (08/23/22) HGB 11.9 L (08/23/22) PLT 190 (08/23/22) INR 1.0 PLASMA (08/23/22 11:16) Palliative Performance Scale: 50% Summary of likely prognosis and relevance to management: Metastatic RCC, now brain mets with weakness, aphasia and AMS. Wt stable. Prognosis likely weeks to months range and would qualify for hospice. 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 Seems to lack insight into his deficiencies. Likely some confusion although this is difficult to evaluate. able to understand his meaning during our conversation. Declined surgery and accepts conservative management with medication. -agree with steroids, hope they can help with thinking and expression Goals of Care: Discussed with patient and his Anna. They are aware of the cancer findings. Patient worried that time is short given the speed at which his condition changed(was at a wedding about two weeks ago and interacting well). Anna thinks his thinking is normal although he isn't saying the correct words. She is able to articulate what he means to say during our discussion. I offer respect for their strong connection. He hopes to be home. Has affairs to get in order. explains that he is turning over a few rental houses to his son. He also needs to show his how to manage some of their finances he did it all. agrees with getting him home. Thinks she will be able to care for him. They have 4 kids who will also help if his condition worsens(such as being bed bound). They hope he can be home through the end of life. Patient is hopeful he has a few months left to live. I offer respect for his wish and also for how well he has cared for himself the past few years dealing with cancer. With jazmyn, we discuss hospice care: philosophy including a focus on symptom management and quality of life rather than returning to the hospital for admission. We discuss the care team and support offered. Given his goal of being home, I recommend a consult with hsopice. They agree. They dont' want to many visits for now. We talk about hospice being flexible and can come out as little as once per week for about 1 hour. This can increase when his needs go up. -I will place a hsopice consult -discussed with primary team that they are hoping for dispo today Time spent in review of medical records, care coordination, assessment, counseling, and documentation: mingo /sangita/ Elijah Barraza M.D. Hospice and Palliative Care Signed: 08/24/2022 10:52 ELIJAH BARRAZA [facility]
--- OUTSIDE RECORDS SUMMARY | 2023-03-24 08:34 | XMS_ITS ---
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 of Vetera [facility] Address [address] [place] [address] Support Name Relationship Address Phone DOREEN WAGNER Next of Kin [phone] [place] [id number] DOREEN Emergency Contact [address] [place] [id number] Insurance Providers: All historical and current [...] Policy [place] [employer] MCR (WNR) MEDICARE ADVANTAGE [facility] (R) June 26, 2016 [id number] JOAN WAGNER KARSTEN PATIENT [employer] MCR (WNR) MEDICARE ADVANTAGE [facility] (WNR) June 26, 2016 [id number] [phone] [id number] JOAN WAGNER KARSTEN PATIENT [employer] MCR (WNR) MEDICARE ADVANTAGE [facility] (WNR) June 26, 2016 [id number] JOAN WAGNER PATIENT Selected Encounter This section includes the information on record at NE for the Encounter. Date/Time Encounter Type Encounter Description Reason Pro vider Source Aug 23, 2022 11:46 PM Inpatient Visit DAILY HOSPITALIZATION DATA GHANSHYAM GARCIA Encounter Template Text not used by NE Plan of Treatment: Future Appointments (+ 6 months) and Future Tests (+/- 45 days) The Plan of Treatment section includes future care activities for the patient from all NE treatmentfacilities. This section includes future appointments and [...] 06, 2022 10:15 AM AMBULATORY - SURGERY [facility] Oct 25, 2022 07:00 AM AMBULATORY - NONE [facility] Oct 25, 2022 07:30 AM AMBULATORY - SURGERY [facility] Oct 25, 2022 09:00 AM AMBULATORY - SURGERY [facility] Active, Pending, and Scheduled Orders This [...] Blood Bank Order ABO/RH - LAB BLOOD [facility] July 14, 2022 02:05 PM Laboratory - Blood Bank Order TYPE & SCREEN - LAB BLOOD [facility] Aug 07, 2022 11:23 AM Laboratory - Chemi stry Order DRUG SCREEN PANEL,URINE URINE [facility] Aug 23, 2022 10:47 AM Laboratory - Chemi stry Order URINALYSIS URINE ER STAT [facility] Lab Results: +/- 30 days of the encounter This section includes the Chemistry and Hematology Lab Results on record with NE for the patient. Radiology Reports and Pathology Reports are provided separately, in subsequent sections. Lab Results This section contains the Chemistry/Hematology Results that were resulted 30 days before or 30 daysafter the date of the Encounter. Date/Time Source Result Type Result - Unit Interpretation Reference Range Comment Aug 24, 2022 12:15 PM [facility] URINALYSIS Specimen Type: URINE No comment entered. Ordering Provider: LUCIO KIM Report Released Date/Time: Aug 24, 2022 09:34 AM Reporting Lab: [facility] [phone] Performing Lab: [facility] [id number] URINE COLOR YELLOW SPECIFIC GRAVITY 1.030 1.003-1.03 [...] See_Commen t Aug 23, 2022 11:16 AM [facility] PROTHROMBIN TIME/INR Specimen Type: PLASMA No comment entered. Ordering Provider: Serena ESQUIVEL Report Released Date/Time: Aug 23, 2022 10:47 AM Aug 23, 2022 11:16 AM [facility] ACT PART THROMBO TIME Specimen Type: PLASMA No comment entered. Ordering Provider: Serena ESQUIVEL Report Released Date/Time: Aug 23, 2022 10:47 AM Reporting Lab: [facility] [address] Performing Lab: [facility] [address] APTT 30.2 25.1-36.5 Aug 23, 2022 11:16 AM [facility] TSH W/REFLEX TO FREE T4 Specimen Type: PLASMA No comment entered. Ordering Provider: Serena ESQUIVEL Report Released Date/Time: Aug 23, 2022 10:47 AM Reporting Lab: [facility] [address] Performing Lab: [facility] [address] TSH 1.54 0.35-4.94 Aug 23, 2022 11:16 AM [facility] SED RATE Specimen Type: BLOOD No comment entered. Ordering Provider: Serena ESQUIVEL Report Released Date/Time: Aug 23, 2022 10:47 AM Reporting Lab: [facility] [address] Performing Lab: [facility] [address] SED RATE 31 H 5-15 Aug 23, 2022 11:16 AM [facility] CARDIAC TROPONIN I Specimen Type: PLASMA No comment entered. Ordering Provider: Serena ESQUIVEL Report Released Date/Time: Aug 23, 2022 10:47 AM Reporting Lab: [facility] [address] Performing Lab: [facility] [address] CARDIAC TROPONIN I <0.028 See_Commen t Aug 23, 2022 11:16 AM [facility] LIPID PANEL,NON-FASTING Specimen Type: PLASMA No comment entered. Ordering Provider: Serena ESQUIVEL Report Released Date/Time: Aug 23, 2022 10:47 AM Reporting Lab: [facility] [address] Performing Lab: [facility] [address] CHOLESTEROL 129 See_Comm en t .HDL 36 L See_Commen t LDL CALCULATION 68 See_ Commen t VLDL CALCULATION 25 See_Commen t NON HDL CHOLESTEROL 93 See_Commen t TRIG(NON FASTING) 123 See_Commen t Aug 23, 2022 11:16 AM [facility] C-REACTIVE PROTEIN Specimen Type: SERUM No comment entered. Ordering Provider: Serena ESQUIVEL Report Released Date/Time: Aug 23, 2022 10:47 AM Reporting Lab: [facility] [address] Performing Lab: [facility] [address] C-REACTIVE PROTEIN 3.14 See_Commen t Aug 23, 2022 11:16 AM [facility] COMPREHENSIVE METABOLIC PANEL+MG Specimen Type: PLASMA No comment entered. Ordering Provider: Serena ESQUIVEL Report Released Date/Time: Aug 23, 2022 10:47 AM Reporting Lab: [facility] [address] Performing Lab: [facility] [address] CREATININE 0.8 0.7-1.2 UREA NITROGEN 15 8-26 [...] See_Commen t Aug 23, 2022 11:16 AM [facility] PHOSPHORUS Specimen Type: PLASMA No comment entered. Ordering Provider: Serena ESQUIVEL Report Released Date/Time: Aug 23, 2022 10:47 AM Reporting Lab: [facility] [address] Performing Lab: [facility] [address] PHOSPHORUS 3.9 2.3-4.7 Aug 23, 2022 11:16 AM [facility] HEMOGLOBIN A1C Specimen Type: BLOOD [...] 23, 2022 10:47 AM Reporting Lab: [facility] [address] Performing Lab: [facility] [address] HEMOGLOBIN A1C 4.2 4.0-6.0 Aug 23, 2022 11:16 AM [facility] CBC & DIFF Specimen Type: BLOOD Comment: Automated Differential Performed Ordering Provider: Serena ESQUIVEL Report Released Date/Time: Aug 23, 2022 10:47 AM Reporting Lab: [facility] [address] Performing Lab: [facility] [address] WBC 5.11 4.0-11.0 RBC 3.87 L 4.6-6.2 [...] 0.02 0-0.1 Aug 23, 2022 11:14 AM [facility] POC CREATININE Specimen Type: BLOOD No comment entered. Ordering Provider: LAVONNE PANCHAL Report Released Date/Time: Aug 23, 2022 11:16 AM Reporting Lab: [facility] [address] Performing Lab: [facility] [address] POC CREATININE 0.8 0.6-1.3 Vital Signs: All taken on the encounter date This section contains inpatient and outpatient Vital Signs collected on the date of the Encounter. Date/Time Temperature Pulse Blood Pressure Respiratory Rate SP02 Pain Height Weight Body Mass Index Source Aug 23, 2022 10:34 AM 98.2 F 63 /min 128/72 mm[Hg] 94 % [facility] Social History: Smoking Status (Most current) and Tobacco Use (All prior to encounter date) This section includes the most current, and the historical, smoking and tobacco- related health factors from the NE facility where the Encounter took place. Current Smoking Status This section includes the most current smoking, or tobacco-related health factor, from the NE facility where the Encounter took place. Date/Time Current Smoking Status Comment Facil ity May 10, 2022 09:15 AM VA-TOBACCO FORMER USER [facility] Tobacco Use History This section includes a history of the smoking, or tobacco-related health factors, that were collected on or before the date of the Encounter. The data comes from the NE facility where the Encounter took place. Date/Time Smoking Status/Tobacco Use Comment F acility May 10, 2022 09:15 AM VA-TOBACCO QUIT 15 YRS OR MORE [facility] May 11, 2021 09:15 AM VA-TOBACCO FORMER USER [facility] May 11, 2021 09:15 AM VA-TOBACCO QUIT 15 YRS OR MORE [facility] Nov 22, 2018 01:36 PM VA-TOBACCO NEVER USED [facility] Nov 12, 2017 07:35 AM FORMER TOBACCO USER 7Y OR GREATE R [facility] Nov 06, 2016 09:05 AM FORMER TOBACCO USER 7Y OR GREATE R [facility] Sep 27, 2015 09:42 AM FORMER TOBACCO USER 7Y OR GREATE R [facility] Sep 25, 2014 07:55 AM FORMER TOBACCO USER 7Y OR GREATE R [facility] Sep 08, 2013 07:48 AM FORMER TOBACCO USER 7Y OR GREATE R [facility] July 09, 2012 09:20 AM FORMER TOBACCO USE >1Y <7Y [facility] Jun 06, 2011 07:53 AM FORMER TOBACCO USE >1Y <7Y [facility] Sep 09, 2009 03:03 PM FORMER TOBACCO USE >1Y <7Y [facility] Aug 11, 2008 01:06 PM FORMER TOBACCO USE <1Y [facility] Sep 19, 2007 02:52 PM CURRENT TOBACCO USER [facility] Sep 03, 2006 03:32 PM CURRENT TOBACCO USER [facility] Advance Directives: All historical and current Section Date Range: From patient's date of to the date document was created. This section includes ALL of a patient's completed or amended NE Advance and Rescinded Directives. The entries below indicate that a directive exists for the patient, but an actual copy is not included with this document. The data comes from all [facility]. Date Advance Directives Provider Source Mar 18, 2003 ADVANCE DIRECTIVE FARHAT MELGAR [facility] Radiology Reports: +/- 30 days of the [...] the Encounter. The data comes from all [place] treatment facilities. Date/Time Radiology Report Provider Source Aug 23, 2022 01:11 PM MRI-BRAIN (P): BERNARDMARYJO CAVAZOS [id number] -1950 M Exm Date: AUG 23, 2022@13:11 Req Phys: Serena ESQUIVEL Pat Loc: [facility] EMERGENCY DEPT WALK-IN (Re Img Loc: MRI IMAGING Service: Unknown (Case [id number] COMPLETE) MRI BRAINBRAINSTEM W & W/O CONTRA(MRI Detailed) CPT:82702 Contrast Media : Gadolinium Reason for Study: APHASIA X3 DAYS Clinical History: MRI BRAIN WITH/WITHOUT CONTRAST IS NOT under investigation for COVID-19 or is COVID-19 negative Did the ordering provider speak with a human resource consultant regarding this imaging exam? Yes, Name of human resource consultant (resident or staff):Neurology Aphasia x 3 days Responsible provider name and phone number to notify for critical findings if other than user placing the order and pager listed below: User placing orders pager: [phone] LAST CREATININE 0.8 (08/23/22) Allergies: HAZELNUTS (Nov 21, 2002) Report Status: Verified Date Reported: AUG 23, 2022 Date Verified: AUG 23, 2022 Bottle Filler E-Sig:/ES/TERESA SANTAMARIA MD Report: MRI BRAINBRAINSTEM W [...] in the left supratentorial compartment results in rgdd-wj-ogzlx midline shift again measuring up to 1.4 [...] intracranial mass effect, with rightward subfalcine herniation (mmnx-rw-xsmth midline shift measures up to 1.4 cm) [...] Primary Interpreting Staff: TERESA SANTAMARIA MD, RADIOLOGIST (Bottle Filler) /[facility] TERESA SANTAMARIA [facility] Aug 23, 2022 12:03 PM CTA CAROTID/COW (P ): MARYJO WAGNER [id number] -1950 M Ex Date: AUG 23, 2022@12:03 Req Phys: Serena ESQUIVEL Pat Loc: [facility] EMERGENCY DEPT WALK-IN (Re Img Loc: CT IMAGING Service: Unknown (Case [id number] COMPLETE) CTA HEAD W/POSTPROCESSING (CT Detailed) CPT:05765 Contrast Media : unspecified contrast media Reason for Study: APHASIAx3 days (Case [id number] COMPLETE) CTA NECK (CT Detailed) CPT:96107 Contrast Media : unspecified contrast media Non-ionic Iodinated Clinical History: HEAD/NECK CTA [place] IS NOT under investigation for COVID-19 or is COVID-19 negative Defer to radiologist for final CT protocol. Please enter pertinent clinical history on the next page. Responsible provider name and phone number to notify for critical findings if other than user placing the order and pager listed below: User placing orders pager: [phone] LAST 3: Collection DT Specimen Test Name [...] PLASMA ESTIMATED GFR(eGF >60 Ref: >=60 Allergies: ([place] only) HAZELNUTS (Nov 21, 2002) To see allergies from all [facility] locations click Reports tab>Remote Data>All Available Sites>Clinical Reports>Allergies. Report Status: Verified Date Reported: AUG 23, 2022 Date Verified: AUG 23, 2022 Bottle Filler E-Sig:/ES/TERESA SANTAMARIA MD Report: CTA HEAD W/POSTPROCESSING, [...] contribute to left cerebral white matter edema. Oobq-du-jtfma midline shift measures up to 1.4 cm. [...] left lateral ventricle. Rightward subfalcine herniation, with rpxp-xf-bymih midline shift measuring up to 1.4 cm. [...] Primary Interpreting Staff: TERESA SANTAMARIA MD, RADIOLOGIST (Bottle Filler) /[facility] TERESA SANTAMARIA [facility] Aug 23, 2022 09:29 AM ELBOW LEFT 3 OR MO RE VIEWS: MARYJO WAGNER [id number] -1950 M Ex Date: AUG 23, 2022@09:29 Req Phys: LEIF PANDA Pat Loc: [facility]THO OT [facility] 2F (Req'g Img Loc: MAIN X-RAY Service: Unknown (Case [id number] COMPLETE) ELBOW LEFT 3 OR MORE VIEWS (RAD Detailed) CPT:29020 Reason for Study: postop Clinical History: IS NOT under investigation for COVID-19 or is COVID-19 negative postop Responsible provider name and phone number to notify for critical findings if other than user placing the order and pager listed below: User placing orders pager: [phone] LAST CREATININE 0.9 (07/19/22) Report Status: Verified Date Reported: AUG 23, 2022 Date Verified: AUG 23, 2022 Bottle Filler E-Sig:/ES/ALBINA LEE MD Report: Exam: Left elbow [...] Primary Interpreting Staff: ALBINA LEE MD, RADIOLOGIST (Bottle Filler) /[facility] SALEH [facility]
--- OUTSIDE RECORDS SUMMARY | 2023-03-24 08:34 | XMS_ITS | Encounter Summary ---
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 Organization [facility] Address [address] [place] [address] Support Name Relationship Address Phone DOREEN WAGNER Next of Kin [phone] [place] [phone] DOREEN Emergency Contact [phone] [place] [phone] Insurance Providers: All historical and current [...] Name Patient's Relationship to Policy Casey HUMANA [facility] (WNR) MEDICARE ADVANTAGE [facility] ([facility]) June 26, 2016 [id number] CARSONJOAN ROWELL PATIENT [employer] [facility] (WNR) MEDICARE ADVANTAGE [facility] (WNR) June 26, 2016 [id number] JOAN WAGNER KARSTEN PATIENT [employer] [facility] (WNR) MEDICARE ADVANTAGE [facility] (WNR) June 26, 2016 [id number] JOAN WAGNER KARSTEN PATIENT Selected Encounter This section includes the information on record at [place] for the Encounter. Date/Time Encounter Type Encounter Description Reason Provider Source Aug 22, 2022 11:28 AM Outpatient Encounter ADMIN [employer] ([employer]) SYSTEM,[employer] Encounter Template Text not used by [...] 20 appointments. The data comes from all [facility]. Appointment Date/Time Appointment Type Appointme nt Facility Name Aug 23, 2022 09:30 AM AMBULATORY - SURGERY [facility] Aug 23, 2022 09:45 AM AMBULATORY - NONE [facility] Aug 23, 2022 10:30 AM AMBULATORY - MEDICINE [facility] Aug 23, 2022 10:31 AM AMBULATORY - MEDICINE [facility] Sep 06, 2022 10:15 AM AMBULATORY - SURGERY [facility] Oct 25, 2022 07:00 AM AMBULATORY - NONE [facility] Oct 25, 2022 07:30 AM AMBULATORY - SURGERY [facility] Oct 25, 2022 09:00 AM AMBULATORY - SURGERY [facility] Active, Pending, and Scheduled Orders This section includes a listing of several types of active, pending, and scheduled orders, including clinic medications orders, diagnostic test orders, procedure orders and consult orders; where the start date of the order is 45 days before the date of the Encounter or 45 days after the date of theEncounter. The data comes from all [facility]. Test Date/Time Test Type Test Details Facility Name July 14, 2022 12:00 AM Laboratory - Blood Bank Order ABO/RH - LAB BLOOD [facility] July 14, 2022 02:05 PM Laboratory - Blood Bank Order TYPE & SCREEN - LAB BLOOD [facility] Aug 07, 2022 11:23 AM Laboratory - Chemi [employer] Order DRUG SCREEN PANEL,URINE URINE ONCE [facility] Aug 23, 2022 10:47 AM Laboratory - Chemi stry Order URINALYSIS URINE ER STAT [facility] Lab Results: +/- 30 days [...] Range Comment Aug 24, 2022 12:15 PM [facility] URINALYSIS Specimen Type: URINE No comment entered. Ordering Provider: LUCIO KIM Report Released Date/Time: Aug 24, 2022 09:34 AM Reporting Lab: [facility] [phone] Performing Lab: [facility] [phone] URINE COLOR YELLOW SPECIFIC GRAVITY 1.030 1.003-1.03 [...] See_Commen t Aug 23, 2022 11:16 AM [facility] PROTHROMBIN TIME/INR Specimen Type: PLASMA No comment entered. Ordering Provider: Serena ESQUIVEL Report Released Date/Time: Aug 23, 2022 10:47 AM Aug 23, 2022 11:16 AM [facility] ACT PART THROMBO TIME Specimen Type: PLASMA No comment entered. Ordering Provider: Serena ESQUIVEL Report Released Date/Time: Aug 23, 2022 10:47 AM Reporting Lab: [facility] [phone] Performing Lab: [facility] [phone] APTT 30.2 25.1-36.5 Aug 23, 2022 11:16 AM [facility] TSH W/REFLEX TO FREE T4 Specimen Type: PLASMA No comment entered. Ordering Provider: Serena EQSUIVEL Report Released Date/Time: Aug 23, 2022 10:47 AM Reporting Lab: [facility] [phone] Performing Lab: [facility] [phone] TSH 1.54 0.35-4.94 Aug 23, 2022 11:16 AM [facility] LIPID PANEL,NON-FASTING Specimen Type: PLASMA No comment entered. Ordering Provider: Serena ESQUIVEL Report Released Date/Time: Aug 23, 2022 10:47 AM Reporting Lab: [facility] [phone] Performing Lab: [facility] [address] CHOLESTEROL 129 See_Comm en t .HDL 36 L See_Commen t LDL CALCULATION 68 See_ Commen t VLDL CALCULATION 25 See_Commen t NON HDL CHOLESTEROL 93 See_Commen t TRIG(NON FASTING) 123 See_Commen t Aug 23, 2022 11:16 AM [facility] CARDIAC TROPONIN I Specimen Type: PLASMA No comment entered. Ordering Provider: Serena ESQUIVEL Report Released Date/Time: Aug 23, 2022 10:47 AM Reporting Lab: [facility] [phone] Performing Lab: [facility] [address] CARDIAC TROPONIN I <0.028 See_Commen t Aug 23, 2022 11:16 AM [facility] SED RATE Specimen Type: BLOOD No comment entered. Ordering Provider: Serena ESQUIVEL Report Released Date/Time: Aug 23, 2022 10:47 AM Reporting Lab: [facility] [phone] Performing Lab: [facility] [phone] SED RATE 31 H 5-15 Aug 23, 2022 11:16 AM [facility] PHOSPHORUS Specimen Type: PLASMA No comment entered. Ordering Provider: Serena ESQUIVEL Report Released Date/Time: Aug 23, 2022 10:47 AM Reporting Lab: [facility] [phone] Performing Lab: [facility] [address] PHOSPHORUS 3.9 2.3-4.7 Aug 23, 2022 11:16 AM [facility] C-REACTIVE PROTEIN Specimen Type: SERUM No comment entered. Ordering Provider: Serena ESQUIVEL Report Released Date/Time: Aug 23, 2022 10:47 AM Reporting Lab: [facility] [phone] Performing Lab: [facility] [address] C-REACTIVE PROTEIN 3.14 See_Commen t Aug 23, 2022 11:16 AM [facility] HEMOGLOBIN A1C Specimen Type: BLOOD Comment: Values [...] Aug 23, 2022 10:47 AM Reporting Lab: [facility] [phone] Performing Lab: [facility] [address] HEMOGLOBIN A1C 4.2 4.0-6.0 Aug 23, 2022 11:16 AM [facility] COMPREHENSIVE METABOLIC PANEL+MG Specimen Type: PLASMA No comment entered. Ordering Provider: Serena ESQUIVEL Report Released Date/Time: Aug 23, 2022 10:47 AM Reporting Lab: [facility] [phone] Performing Lab: [facility] [address] CREATININE 0.8 0.7-1.2 UREA NITROGEN 15 8-26 [...] See_Commen t Aug 23, 2022 11:16 AM [facility] CBC & DIFF Specimen Type: BLOOD Comment: Automated Differential Performed Ordering Provider: Serena ESQUIVEL Report Released Date/Time: Aug 23, 2022 10:47 AM Reporting Lab: [facility] [phone] Performing Lab: [facility] [phone] WBC 5.11 4.0-11.0 RBC 3.87 L 4.6-6.2 [...] 0.02 0-0.1 Aug 23, 2022 11:14 AM [facility] POC CREATININE Specimen Type: BLOOD No comment entered. Ordering Provider: LAVONNE PANCHAL Report Released Date/Time: Aug 23, 2022 11:16 AM Reporting Lab: [facility] [phone] Performing Lab: [facility] [phone] POC CREATININE 0.8 0.6-1.3 Social History: Smoking Status (Most current) and Tobacco Use (All prior to encounter date) This section includes the most current, and the historical, smoking and tobacco- related health factors from the [facility] where the Encounter took place. Current Smoking Status This section includes the most current smoking, or tobacco-related health factor, from the [place] facility where the Encounter took place. Date/Time Current Smoking Status Comment Facil ity May 10, 2022 09:15 AM VA-TOBACCO FORMER USER [facility] Tobacco Use History This section includes a history of the smoking, or tobacco-related health factors, that were collected on or before the date of the Encounter. The data comes from the [place] facility where the Encounter took place. Date/Time Smoking Status/Tobacco Use Comment F acility May 10, 2022 09:15 AM VA-TOBACCO QUIT 15 YRS OR MORE [facility] May 11, 2021 09:15 AM VA-TOBACCO FORMER USER [facility] May 11, 2021 09:15 AM VA-TOBACCO QUIT 15 YRS OR MORE [facility] Nov 22, 2018 01:36 PM VA-TOBACCO NEVER USED [facility] Nov 12, 2017 07:35 AM FORMER TOBACCO USER 7Y OR GREATE R [facility] Nov 06, 2016 09:05 AM FORMER TOBACCO USER 7Y OR GREATE R [facility] Sep 27, 2015 09:42 AM FORMER TOBACCO USER 7Y OR GREATE R [facility] Sep 25, 2014 07:55 AM FORMER TOBACCO USER 7Y OR GREATE R [facility] Sep 08, 2013 07:48 AM FORMER TOBACCO USER 7Y OR GREATE R [facility] July 09, 2012 09:20 AM FORMER TOBACCO USE >1Y <7Y [facility] Jun 06, 2011 07:53 AM FORMER TOBACCO USE >1Y <7Y [facility] Sep 09, 2009 03:03 PM FORMER TOBACCO USE >1Y <7Y [facility] Aug 11, 2008 01:06 PM FORMER TOBACCO USE <1Y [facility] Sep 19, 2007 02:52 PM CURRENT TOBACCO USER [facility] Sep 03, 2006 03:32 PM CURRENT TOBACCO USER [facility] Advance Directives: All historical and current Section Date Range: From patient's date of to the date document was created. This section includes ALL of a patient's completed or amended [place] Advance and Rescinded Directives. The entries below indicate that a directive exists for the patient, but an actual copy is not included with this document. The data comes from all [place] facilities. Date Advance Directives Provider Source Mar 18, 2003 ADVANCE DIRECTIVE FARHAT MELGAR [facility] Radiology Reports: +/- 30 days [...] 2022 01:11 PM MRI-BRAIN (P): MARYJO WAGNER [id number] -[id number] M Exm Date: AUG 23, 2022@13:11 Req Phys: Serena ESQUIVEL Pat Loc: [facility] EMERGENCY DEPT WALK-IN (Re Img Loc: MRI IMAGING Service: Unknown (Case [id number] COMPLETE) MRI BRAINBRAINSTEM W & W/O CONTRA(MRI Detailed) CPT:80612 Contrast Media : Gadolinium Reason for Study: APHASIA X3 DAYS Clinical History: MRI BRAIN WITH/WITHOUT CONTRAST IS NOT under investigation for COVID-19 or is COVID-19 negative Did the ordering provider speak with a windows consultant regarding this imaging exam? Yes, Name of windows consultant (resident or staff):Neurology Aphasia x 3 days Responsible provider name and phone number to notify for critical findings if other than user placing the order and pager listed below: User placing orders pager: [phone] LAST CREATININE 0.8 (08/23/22) Allergies: HAZELNUTS (Nov 21, 2002) Report Status: Verified Date Reported: AUG 23, 2022 Date Verified: AUG 23, 2022 Revenue Integrity Analyst E-Sig:/ES/TERESA SANTAMARIA MD Report: MRI BRAINBRAINSTEM W [...] in the left supratentorial compartment results in hiti-vc-kjnil midline shift again measuring up to 1.4 [...] intracranial mass effect, with rightward subfalcine herniation (sqhk-zs-uwrhs midline shift measures up to 1.4 cm) [...] Primary Interpreting Staff: TERESA SANTAMARIA MD, RADIOLOGIST (Revenue Integrity Analyst) /[facility] TERESA SANTAMARIA [facility] Aug 23, 2022 12:03 PM CTA CAROTID/COW (P ): MARYJO WAGNER [id number] -[id number] M Ex Date: AUG 23, 2022@12:03 Req Phys: Serena ESQUIVEL Pat Loc: [facility] EMERGENCY DEPT WALK-IN (Re Im Loc: CT IMAGING Service: Unknown (Case [id number] COMPLETE) CTA HEAD W/POSTPROCESSING (CT Detailed) CPT:03637 Contrast Media : unspecified contrast media Reason for Study: APHASIAx3 days (Case [id number] COMPLETE) CTA NECK (CT Detailed) CPT:77978 Contrast Media : unspecified contrast media Non-ionic Iodinated Clinical History: HEAD/NECK CTA Ralph IS NOT under investigation for COVID-19 or is COVID-19 negative Defer to radiologist for final CT protocol. Please enter pertinent clinical history on the next page. Responsible provider name and phone number to notify for critical findings if other than user placing the order and pager listed below: User placing orders pager: [phone] LAST 3: Collection DT Specimen Test Name [...] PLASMA ESTIMATED GFR(eGF >60 Ref: >=60 Allergies: ([place] only) HAZELNUTS (Nov 21, 2002) To see allergies from all [facility] locations click Reports tab>Remote Data>All Available Sites>Clinical Reports>Allergies. Report Status: Verified Date Reported: AUG 23, 2022 Date Verified: AUG 23, 2022 Revenue Integrity Analyst E-Sig:/ES/TERESA SANTAMARIA MD Report: CTA HEAD W/POSTPROCESSING, [...] contribute to left cerebral white matter edema. Tqum-cn-kwjnv midline shift measures up to 1.4 cm. [...] left lateral ventricle. Rightward subfalcine herniation, with uawt-nd-hjakj midline shift measuring up to 1.4 cm. [...] Primary Interpreting Staff: TERESA SANTAMARIA MD, RADIOLOGIST (Revenue Integrity Analyst) /[facility] TERESA SANTAMARIA [facility] Aug 23, 2022 09:29 AM ELBOW LEFT 3 OR MO RE VIEWS: MARYJO WAGNER [id number] -[id number] M Exm Date: AUG 23, 2022@09:29 Req Phys: LEIF PANDA T Pat Loc: [facility]THO OT KENA 2F (Req'g Img Loc: MAIN X-RAY Service: Unknown (Case [id number] COMPLETE) ELBOW LEFT 3 OR MORE VIEWS (RAD Detailed) CPT:91466 Reason for Study: postop Clinical History: Ralph IS NOT under investigation for COVID-19 or is COVID-19 negative postop Responsible provider name and phone number to notify for critical findings if other than user placing the order and pager listed below: User placing orders pager: [phone] LAST CREATININE 0.9 (07/19/22) Report Status: Verified Date Reported: AUG 23, 2022 Date Verified: AUG 23, 2022 Revenue Integrity Analyst E-Sig:/ES/ALBINA LEE MD Report: Exam: Left elbow [...] Primary Interpreting Staff: ALBINA LEE MD, RADIOLOGIST (Revenue Integrity Analyst) /[facility] Encounter Notes: All associated encounter notes This section contains the clinical notes associated to the Encounter. Date/Time Encounter Note(s) Provider Source Aug 22, 2022 11:28 AM CRITICAL CARE UNIT NOTE: LOCAL TITLE: [facility] EMERGENCY DEPT FLOWSHEET STANDARD TITLE: CRITICAL CARE UNIT NOTE DATE OF NOTE: AUG 22, 2022@11:28 ENTRY DATE: AUG 24, 2022@08:30:41 AUTHOR: SYSTEM,iDoc24 EXP COSIGNER: URGENCY: STATUS: COMPLETED This is a place casey only. Please see [employer] to view document. /es/ [employer] ICU DOCUMENT IMPORT Signed: 08/24/2022 08:30 SYSTEM,[employer] [facility]
--- OUTSIDE RECORDS SUMMARY | 2023-03-24 08:35 | XMS_ITS | Encounter Summary ---
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 Address [address] [place] [address] Support Name Relationship Address Phone DOREEN WAGNER Next of Kin [address] [place] [phone] DOREEN Emergency Contact [address] [place] [phone] Insurance Providers: All historical and current [...] [facility] (WNR) MEDICARE ADVANTAGE [facility] ([facility]) June 26, 2016 [id number] JOAN WAGNER KARSTEN PATIENT [employer] (WNR) MEDICARE ADVANTAGE [facility] (WNR) June 26, 2016 [id number] JOAN WAGNER KARSTEN PATIENT [employer] (WNR) MEDICARE ADVANTAGE [facility] (WNR) June 26, 2016 [id number] [phone] JOAN WAGNER PATIENT Selected Encounter This section includes the information on record at [place] for the Encounter. Date/Time Encounter Type Encounter Description Reason Provider Source Aug 24, 2022 12:02 PM HC PRO PHONE CALL 5-10 MIN TELEPHONE/GERIATR ICS ICD-10-CM C64.2 Malignant neoplasm of left kidney, except renal pelvis MICHELLE CHU IHE Encounter Template Text not used by [place] Assessments - Encounter Diagnoses This section includes the primary and secondary diagnoses documented for the Encounter. Date/Time Primary/Secondary Diagnosis Diagnosis Name Provider Source Aug 24, 2022 12:02 PM PRIMARY Malignant neoplasm of left kidney, except renal pelvis MICHELLE CHU [facility] Plan of Treatment: Future Appointments (+ 6 months) and Future Tests (+/- 45 days) The Plan of Treatment section includes future care activities for the patient from all [facility] This section includes future appointments and future orders which are active, pending or scheduled. Future Appointments This section includes appointments that were scheduled to occur 6 months from the date of the Encounter, up to a maximum of 20 appointments. The data comes from all [facility]. Appointment Date/Time Appointment Type Appointme nt Facility Name Sep 06, 2022 10:15 AM AMBULATORY - SURGERY [facility] Oct 25, 2022 07:00 AM AMBULATORY - NONE [facility] Oct 25, 2022 07:30 AM AMBULATORY - SURGERY [facility] Oct 25, 2022 09:00 AM AMBULATORY - SURGERY [facility] Active, Pending, and Scheduled Orders This section includes a listing of several types of active, pending, and scheduled orders, including clinic medications orders, diagnostic test orders, procedure orders and consult orders; where the start date of the order is 45 days before the date of the Encounter or 45 days after the date of theEncounter. The data comes from all [facility]. Test Date/Time Test Type Test Details Facility Name July 14, 2022 12:00 AM Laboratory - Blood Bank Order ABO/RH - LAB BLOOD [facility] July 14, 2022 02:05 PM Laboratory - Blood Bank Order TYPE & SCREEN - LAB BLOOD [facility] Aug 07, 2022 11:23 AM Laboratory - Chemi stry Order DRUG SCREEN PANEL,URINE URINE [facility] Aug 23, 2022 10:47 AM Laboratory - Chemi stry Order URINALYSIS URINE ER STAT [facility] Lab Results: +/- 30 days of the encounter This section includes the Chemistry and Hematology Lab Results on record with [place] for the patient. Radiology Reports and Pathology [...] Aug 24, 2022 09:34 AM Reporting Lab: [facility] [address] Performing Lab: [facility] [address] URINE COLOR YELLOW SPECIFIC GRAVITY 1.030 1.003-1.03 [...] Aug 23, 2022 10:47 AM Reporting Lab: [facility] [address] Performing Lab: [facility] [address] APTT 30.2 25.1-36.5 Aug 23, 2022 11:16 AM [facility] LIPID PANEL,NON-FASTING Specimen Type: PLASMA No comment entered. Ordering Provider: Serena ESQUIVEL Report Released Date/Time: Aug 23, 2022 10:47 AM Reporting Lab: [facility] [address] Performing Lab: [facility] [address] CHOLESTEROL 129 See_Comm en t .HDL 36 [...] Aug 23, 2022 10:47 AM Reporting Lab: [facility] [address] Performing Lab: [facility] [address] TSH 1.54 0.35-4.94 Aug 23, 2022 11:16 AM [facility] CARDIAC TROPONIN I Specimen Type: PLASMA No comment entered. Ordering Provider: Serena ESQUIVEL Report Released Date/Time: Aug 23, 2022 10:47 AM Reporting Lab: [facility] [address] Performing Lab: [facility] [address] CARDIAC TROPONIN I <0.028 See_Commen t Aug 23, 2022 11:16 AM [facility] SED RATE Specimen Type: BLOOD No comment entered. Ordering Provider: Serena ESQUIVEL Report Released Date/Time: Aug 23, 2022 10:47 AM Reporting Lab: [facility] [address] Performing Lab: [facility] [address] SED RATE 31 H 5-15 Aug 23, 2022 11:16 AM [facility] C-REACTIVE PROTEIN Specimen Type: SERUM No comment entered. Ordering Provider: Serena ESQUIVEL Report Released Date/Time: Aug 23, 2022 10:47 AM Reporting Lab: [facility] [address] Performing Lab: [facility] [address] C-REACTIVE PROTEIN 3.14 See_Commen t Aug 23, 2022 11:16 AM [facility] PHOSPHORUS Specimen Type: PLASMA No comment entered. Ordering Provider: Serena ESQUIVEL Report Released Date/Time: Aug 23, 2022 10:47 AM Reporting Lab: [facility] [address] Performing Lab: [facility] [address] PHOSPHORUS 3.9 2.3-4.7 Aug 23, 2022 11:16 AM [facility] COMPREHENSIVE METABOLIC PANEL+MG Specimen Type: PLASMA No comment entered. Ordering Provider: Serena ESQUIVEL Report Released Date/Time: Aug 23, 2022 10:47 AM Reporting Lab: [facility] [address] Performing Lab: [facility] [address] CREATININE 0.8 0.7-1.2 UREA NITROGEN 15 8-26 [...] Aug 23, 2022 10:47 AM Reporting Lab: [facility] [address] Performing Lab: [facility] [address] HEMOGLOBIN A1C 4.2 4.0-6.0 Aug 23, 2022 11:16 AM [facility] CBC & DIFF Specimen Type: BLOOD Comment: Automated Differential Performed Ordering Provider: Serena ESQUIVEL Report Released Date/Time: Aug 23, 2022 10:47 AM Reporting Lab: [facility] [address] Performing Lab: [facility] [address] WBC 5.11 4.0-11.0 RBC 3.87 L 4.6-6.2 [...] Aug 23, 2022 11:16 AM Reporting Lab: [facility] [address] Performing Lab: [facility] [address] POC CREATININE 0.8 0.6-1.3 Social History: Smoking Status (Most current) and Tobacco Use (All prior to encounter date) This section includes the most current, and the historical, smoking and tobacco- related health factors from the [facility] where the Encounter took place. Current Smoking Status This section includes the most current smoking, or tobacco-related health factor, from the [place] facility where the Encounter took place. Date/Time Current Smoking Status Comment Facil ity May 10, 2022 09:15 AM VA-TOBACCO FORMER USER [facility] Tobacco Use History This section includes a history of the smoking, or tobacco-related health factors, that were collected on or before the date of the Encounter. The data comes from the [place] facility where the Encounter took place. Date/Time [...] ALL of a patient's completed or amended [place] Advance and Rescinded Directives. The entries below indicate that a directive exists for the patient, but an actual copy is not included with this document. The data comes from all [place] facilities. Date Advance Directives Provider Source Mar 18, 2003 ADVANCE DIRECTIVE [facility]ELG[facility] Radiology Reports: +/- [...] the Encounter. The data comes from all [place] treatment facilities. Date/Time Radiology Report Provider Source Aug 23, 2022 01:11 PM MRI-BRAIN (P): MARYJO WAGNER [id number] -1950 M Exm Date: AUG 23, 2022@13:11 Req Phys: Serena ESQUIVEL Pat Loc: [facility] EMERGENCY DEPT WALK-IN (Re Img Loc: MRI IMAGING Service: Unknown (Case [id number] COMPLETE) MRI BRAINBRAINSTEM W & W/O CONTRA(MRI Detailed) CPT:63248 Contrast Media : Gadolinium Reason for Study: APHASIA X3 DAYS Clinical History: MRI BRAIN WITH/WITHOUT CONTRAST [place] IS NOT under investigation for COVID-19 or is COVID-19 negative Did the ordering provider speak with a organizational research consultant regarding this imaging exam? Yes, Name of organizational research consultant (resident or staff):Neurology Aphasia x 3 days Responsible provider name and phone number to notify for critical findings if other than user placing the order and pager listed below: User placing orders pager: [phone] LAST CREATININE 0.8 (08/23/22) Allergies: HAZELNUTS (Nov 21, 2002) Report Status: Verified Date Reported: AUG 23, 2022 Date Verified: AUG 23, 2022 Engine Lathe Tender E-Sig:/ES/TERESA SANTAMARIA MD Report: MRI BRAINBRAINSTEM W [...] in the left supratentorial compartment results in mddo-jy-pwtpk midline shift again measuring up to 1.4 [...] intracranial mass effect, with rightward subfalcine herniation (djpo-cx-phpcb midline shift measures up to 1.4 cm) [...] Primary Interpreting Staff: TERESA SANTAMARIA MD, RADIOLOGIST (Engine Lathe Tender) /[facility] TERESA SANTAMARIA [facility] Aug 23, 2022 12:03 PM CTA CAROTID/COW (P ): MARYJO WAGNER [id number] -1950 M Ex Date: AUG 23, 2022@12:03 Req Phys: Serena ESQUIVEL Pat Loc: [facility] EMERGENCY DEPT WALK-IN (Re [facility] Loc: CT IMAGING Service: Unknown (Case [id number] COMPLETE) CTA HEAD W/POSTPROCESSING (CT Detailed) CPT:67867 Contrast Media : unspecified contrast media Reason for Study: APHASIAx3 days (Case [id number] COMPLETE) CTA NECK (CT Detailed) CPT:53291 Contrast Media : unspecified contrast media Non-ionic Iodinated Clinical History: HEAD/NECK CTA [place] IS NOT under investigation for COVID-19 or is COVID-19 negative Defer to radiologist for final CT protocol. Please enter pertinent clinical history on the next page. Responsible provider name and phone number to notify for critical findings if other than user placing the order and pager listed below: User placing orders pager: [phone] LAST 3: Collection DT Specimen Test Name [...] PLASMA ESTIMATED GFR(eGF >60 Ref: >=60 Allergies: ([place] only) HAZELNUTS (Nov 21, 2002) To see allergies from all [facility] locations click Reports tab>Remote Data>All Available Sites>Clinical Reports>Allergies. Report Status: Verified Date Reported: AUG 23, 2022 Date Verified: AUG 23, 2022 Engine Lathe Tender E-Sig:/ES/TERESA SANTAMARIA MD Report: CTA HEAD W/POSTPROCESSING, [...] contribute to left cerebral white matter edema. Ucib-ha-lahnz midline shift measures up to 1.4 cm. [...] left lateral ventricle. Rightward subfalcine herniation, with hzir-zi-fgygj midline shift measuring up to 1.4 cm. [...] Primary Interpreting Staff: TERESA SANTAMARIA MD, RADIOLOGIST (Engine Lathe Tender) /[facility] TERESA SANTAMARIA [facility] Aug 23, 2022 09:29 AM ELBOW LEFT 3 OR MO RE VIEWS: MARYJO AWGNER [id number] -1950 M Exm Date: AUG 23, 2022@09:29 Req Phys: LEIF PANDA T Pat Loc: [facility]TH[facility] 2F (Req'g Img Loc: MAIN X-RAY Service: Unknown (Case [id number] COMPLETE) ELBOW LEFT 3 OR MORE VIEWS (RAD Detailed) CPT:81800 Reason for Study: postop Clinical History: IS NOT under investigation for COVID-19 or is COVID-19 negative postop Responsible provider name and phone number to notify for critical findings if other than user placing the order and pager listed below: User placing orders pager: [phone] LAST CREATININE 0.9 (07/19/22) Report Status: Verified Date Reported: AUG 23, 2022 Date Verified: AUG 23, 2022 Engine Lathe Tender E-Sig:/SANGITA/ALBINA LEE MD Report: Exam: Left elbow [...] Primary Interpreting Staff: ALBINA LEE MD, RADIOLOGIST (Engine Lathe Tender) /[facility] SALEH [facility] Encounter Notes: All associated encounter notes This section contains the clinical notes associated to the Encounter. Date/Time Encounter Note(s) Provider Source Aug 24, 2022 12:21 PM [facility]ITY DETENTION CARE NOTE: LOCAL TITLE: [facility]IN [facility] STANDARD TITLE: COMMUNITY DETENTION CARE NOTE DATE OF NOTE: AUG 24, 2022@12:21 ENTRY DATE: AUG 24, 2022@12:21:05 AUTHOR: MICHELLE CHU EXP COSIGNER: URGENCY: STATUS: COMPLETED Spoke to Ms. Wagner to review home hospice services (agencies regulated by Medicare) and [place] hospice benefits. No agency preference. Referral sent to agency with history of accommodating short notice availability, see hospice consult for details. Provided my contact number for any further questions. /sangita/ Michelle Chu RN, BSN Hospice Community Health Coordinator Signed: 08/24/2022 12:24 MICHELLE CHU [facility]
--- OUTSIDE RECORDS SUMMARY | 2023-03-24 08:35 | XMS_ITS | Encounter Summary ---
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 of Vetera [facility] Address [address] [place] [address] Support Name Relationship Address Phone DOREEN WAGNER Next of Kin [address] [place] [phone] DOREEN Emergency Contact [address] [place] [phone] Insurance Providers: All historical and current [...] [facility] (WNR) June 26, 2016 [id number] JOAN WAGNER KARSTEN PATIENT [employer] (WNR) MEDICARE ADVANTAGE [facility] (WNR) June 26, 2016 [id number] JOAN WAGNER KARSTEN PATIENT [employer] (WNR) MEDICARE ADVANTAGE [facility] (WNR) June 26, 2016 [id number] JOAN WAGNER KARSTEN PATIENT Selected Encounter This section includes the information on record at [place] for the Encounter. Date/Time Encounter Type Encounter Description Reason Pro vider Source Aug 24, 2022 12:18 PM Inpatient Visit EVENT (HISTORICAL) IHE Encounter Template Text not used by [place] Plan of Treatment: Future Appointments (+ 6 [...] 20 appointments. The data comes from all [facility]. Appointment Date/Time Appointment Type Appointme nt Facility Name Sep 06, 2022 10:15 AM AMBULATORY - SURGERY [facility] Oct 25, 2022 07:00 AM AMBULATORY - NONE [facility] Oct 25, 2022 07:30 AM AMBULATORY - SURGERY [facility] Oct 25, 2022 09:00 AM AMBULATORY - SURGERY [facility] Active, Pending, and Scheduled Orders This section includes a listing of several types of active, pending, and scheduled orders, including clinic medications orders, diagnostic test orders, procedure orders and consult orders; where the start date of the order is 45 days before the date of the Encounter or 45 days after the date of theEncounter. The data comes from all [facility]. Test Date/Time Test Type Test Details Facility Name July 14, 2022 12:00 AM Laboratory - Blood Bank Order ABO/RH - LAB BLOOD [facility] July 14, 2022 02:05 PM Laboratory - Blood Bank Order TYPE & SCREEN - LAB BLOOD [facility] Aug 07, 2022 11:23 AM Laboratory - Chemi stry Order DRUG SCREEN PANEL,URINE URINE [facility] Aug 23, 2022 10:47 AM Laboratory - Chemi stry Order URINALYSIS URINE ER STAT [facility] Lab Results: +/- 30 days of the encounter This section includes the Chemistry and Hematology Lab Results on record with [place] for the patient. Radiology Reports and Pathology [...] Aug 24, 2022 09:34 AM Reporting Lab: [facility] [address] Performing Lab: [facility] [address] URINE COLOR YELLOW SPECIFIC GRAVITY 1.030 1.003-1.03 [...] Aug 23, 2022 10:47 AM Reporting Lab: [facility] [address] Performing Lab: [facility] [address] APTT 30.2 25.1-36.5 Aug 23, 2022 11:16 AM [facility] LIPID PANEL,NON-FASTING Specimen Type: PLASMA No comment entered. Ordering Provider: Serena ESQUIVEL Report Released Date/Time: Aug 23, 2022 10:47 AM Reporting Lab: [facility] [address] Performing Lab: [facility] [address] CHOLESTEROL 129 See_Comm en t .HDL 36 [...] Aug 23, 2022 10:47 AM Reporting Lab: [facility] [address] Performing Lab: [facility] [address] TSH 1.54 0.35-4.94 Aug 23, 2022 11:16 AM [facility] SED RATE Specimen Type: BLOOD No comment entered. Ordering Provider: Serena ESQUIVEL Report Released Date/Time: Aug 23, 2022 10:47 AM Reporting Lab: [facility] [address] Performing Lab: [facility] [address] SED RATE 31 H 5-15 Aug 23, 2022 11:16 AM [facility] CARDIAC TROPONIN I Specimen Type: PLASMA No comment entered. Ordering Provider: Serena ESQUIVEL Report Released Date/Time: Aug 23, 2022 10:47 AM Reporting Lab: [facility] [address] Performing Lab: [facility] [address] CARDIAC TROPONIN I <0.028 See_Commen t Aug 23, 2022 11:16 AM [facility] C-REACTIVE PROTEIN Specimen Type: SERUM No comment entered. Ordering Provider: Serena ESQUIVEL Report Released Date/Time: Aug 23, 2022 10:47 AM Reporting Lab: [facility] [address] Performing Lab: [facility] [address] C-REACTIVE PROTEIN 3.14 See_Commen t Aug 23, 2022 11:16 AM [facility] PHOSPHORUS Specimen Type: PLASMA No comment entered. Ordering Provider: Serena ESQUIVEL Report Released Date/Time: Aug 23, 2022 10:47 AM Reporting Lab: [facility] [address] Performing Lab: [facility] [address] PHOSPHORUS 3.9 2.3-4.7 Aug 23, 2022 11:16 AM [facility] COMPREHENSIVE METABOLIC PANEL+MG Specimen Type: PLASMA No comment entered. Ordering Provider: Serena ESQUIVEL Report Released Date/Time: Aug 23, 2022 10:47 AM Reporting Lab: [facility] [address] Performing Lab: [facility] [address] CREATININE 0.8 0.7-1.2 UREA NITROGEN 15 8-26 [...] Aug 23, 2022 10:47 AM Reporting Lab: [facility] [address] Performing Lab: [facility] [address] HEMOGLOBIN A1C 4.2 4.0-6.0 Aug 23, 2022 11:16 AM [facility] CBC & DIFF Specimen Type: BLOOD Comment: Automated Differential Performed Ordering Provider: Serena ESQUIVEL Report Released Date/Time: Aug 23, 2022 10:47 AM Reporting Lab: [facility] [address] Performing Lab: [facility] [address] WBC 5.11 4.0-11.0 RBC 3.87 L 4.6-6.2 [...] 2022 11:16 AM Reporting Lab: [facility] [address] Performing Lab: [facility] [address] POC CREATININE 0.8 0.6-1.3 Social History: Smoking Status (Most current) and Tobacco Use (All prior to encounter date) This section includes the most current, and the historical, smoking and tobacco- related health factors from the [place] facility where the Encounter took place. Current Smoking Status This section includes the most current smoking, or tobacco-related health factor, from the [place] facility where the Encounter took place. Date/Time Current Smoking Status Comment Facil ity May 10, 2022 09:15 AM VA-TOBACCO FORMER USER [facility] Tobacco Use History This section includes a history of the smoking, or tobacco-related health factors, that were collected on or before the date of the Encounter. The data comes from the [place] facility where the Encounter took place. Date/Time [...] ALL of a patient's completed or amended [place] Advance and Rescinded Directives. The entries below indicate that a directive exists for the patient, but an actual copy is not included with this document. The data comes from all [facility]. Date Advance Directives Provider Source Mar 18, 2003 ADVANCE DIRECTIVE FARHAT MELGAR [facility] Radiology Reports: +/- 30 days of [...] the Encounter. The data comes from all [place] treatment facilities. Date/Time Radiology Report Provider Source Aug 23, 2022 01:11 PM MRI-BRAIN (P): BERNARDMARYJO DIRK [id number] -1950 M Ex Date: AUG 23, 2022@13:11 Req Phys: Serena ESQUIVEL Pat Loc: [facility] EMERGENCY DEPT WALK-IN ([facility] Loc: MRI IMAGING Service: Unknown (Case [id number] COMPLETE) MRI BRAINBRAINSTEM W & W/O CONTRA(MRI Detailed) CPT:38465 Contrast Media : Gadolinium Reason for Study: APHASIA X3 DAYS Clinical History: MRI BRAIN WITH/WITHOUT CONTRAST [place] IS NOT under investigation for COVID-19 or is COVID-19 negative Did the ordering provider speak with a practice consultant regarding this imaging exam? Yes, Name of practice consultant (resident or staff):Neurology Aphasia x 3 days Responsible provider name and phone number to notify for critical findings if other than user placing the order and pager listed below: User placing orders pager: [phone] [id number] LAST CREATININE 0.8 (08/23/22) Allergies: HAZELNUTS (Nov 21, 2002) Report Status: Verified Date Reported: AUG 23, 2022 Date Verified: AUG 23, 2022 [employer]airer E-Sig:/ES/TERESA SANTAMARIA MD Report: MRI BRAINBRAINSTEM W [...] in the left supratentorial compartment results in qojt-tr-vhawu midline shift again measuring up to 1.4 [...] intracranial mass effect, with rightward subfalcine herniation (dzbb-mi-hvfqw midline shift measures up to 1.4 cm) [...] Primary Interpreting Staff: TERESA SANTAMARIA MD, RADIOLOGIST ([employer] Instrument Repairer) /[facility] TERESA SANTAMARIA [facility] Aug 23, 2022 12:03 PM CTA CAROTID/COW (P ): MARYJO WAGNER [id number] -1950 M Exm Date: AUG 23, 2022@12:03 Req Phys: Serena ESQUIVEL Pat Loc: [facility] EMERGENCY DEPT WALK-IN ([facility] Loc: CT IMAGING Service: Unknown (Case [id number] COMPLETE) CTA HEAD W/POSTPROCESSING (CT Detailed) CPT:00415 Contrast Media : unspecified contrast media Reason for Study: APHASIAx3 days (Case [id number] COMPLETE) CTA NECK (CT Detailed) CPT:11057 Contrast Media : unspecified contrast media Non-ionic [...] pager listed below: User placing orders pager: [phone] [id number] LAST 3: Collection DT Specimen Test Name [...] PLASMA ESTIMATED GFR(eGF >60 Ref: >=60 Allergies: ([place] only) HAZELNUTS (Nov 21, 2002) To see allergies from all [facility] locations click Reports tab>Remote Data>All Available Sites>Clinical Reports>Allergies. Report Status: Verified Date Reported: AUG 23, 2022 Date Verified: AUG 23, 2022 [employer] Repairer E-Sig:/ES/TERESA SANTAMARIA MD Report: CTA HEAD W/POSTPROCESSING, [...] contribute to left cerebral white matter edema. Aznf-yw-sjbbt midline shift measures up to 1.4 cm. [...] left lateral ventricle. Rightward subfalcine herniation, with jchf-op-yjtzh midline shift measuring up to 1.4 cm. [...] Primary Interpreting Staff: TERESA SANTAMARIA MD, RADIOLOGIST ([employer] Instrument Repairer) /[facility] TERESA SANTAMARIA [facility] Aug 23, 2022 09:29 AM ELBOW LEFT 3 OR MO RE VIEWS: BERNARDMARYJO [id number] -1950 M Ex Date: AUG 23, 2022@09:29 Req Phys: LEIF PANDA Loc: [facility]NA 2F (Req'g Img Loc: MAIN X-RAY Service: Unknown (Case [id number] COMPLETE) ELBOW LEFT 3 OR MORE VIEWS (RAD Detailed) CPT:05649 Reason for Study: postop Clinical History: IS NOT under investigation for COVID-19 or is COVID-19 negative postop Responsible provider name and phone number to notify for critical findings if other than user placing the order and pager listed below: User placing orders pager: [phone] LAST CREATININE 0.9 (07/19/22) Report Status: Verified Date Reported: AUG 23, 2022 Date Verified: AUG 23, 2022 [employer] Repairer E-Sig:/ES/ALBINA LEE MD Report: Exam: Left elbow [...] Primary Interpreting Staff: ALBINA LEE MD, RADIOLOGIST (Br[employer] Instrument Repairer) /[facility] SALEH [facility]
--- OUTSIDE RECORDS SUMMARY | 2023-03-24 08:35 | XMS_ITS | Encounter Summary ---
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 of Vetera [facility] Address [address] [place] [id number] Support Name Relationship Address Phone DOREEN WAGNER Next of Kin [id number] [place] [phone] DOREEN Emergency Contact [phone] [place] [phone] Insurance Providers: All historical and current [...] Policy [place] [employer] (WNR) MEDICARE ADVANTAGE [facility] (WNR) June 26, 2016 [id number] JOAN WAGNER KARSTEN PATIENT [employer] (WNR) MEDICARE ADVANTAGE [facility] (WNR) June 26, 2016 [id number] [phone] [id number] JOAN WAGNER KARSTEN PATIENT [employer] M[employer] (WNR) MEDICARE ADVANTAGE [facility] (WNR) June 26, 2016 [id number] JOAN WAGNER PATIENT Selected Encounter This section includes the information on record at [place] for the Encounter. Date/Time Encounter Type Encounter Description Reason Pro vider Source Aug 24, 2022 11:53 AM Inpatient Visit CLINICAL PHARMACY E Encounter Template Text not used by AR Plan of Treatment: Future Appointments (+ 6 months) and Future Tests (+/- 45 days) The Plan of Treatment section includes future care activities for the patient from all [place] treatmentfacilities. This section includes future appointments and future orders which are active, pending or scheduled. Future Appointments This section includes appointments that were scheduled to occur 6 months from the date of the Encounter, up to a maximum of 20 appointments. The data comes from all [facility]. Appointment Date/Time Appointment Type Appointme nt Facility Name Sep 06, 2022 10:15 AM AMBULATORY - SURGERY [facility] Oct 25, 2022 07:00 AM AMBULATORY - NONE [facility] Oct 25, 2022 07:30 AM AMBULATORY - SURGERY [facility] Oct 25, 2022 09:00 AM AMBULATORY - SURGERY [facility] Active, Pending, and Scheduled Orders This section includes a listing of several types of active, pending, and scheduled orders, including clinic medications orders, diagnostic test orders, procedure orders and consult orders; where the start date of the order is 45 days before the date of the Encounter or 45 days after the date of theEncounter. The data comes from all [facility]. Test Date/Time Test Type Test Details Facility Name July 14, 2022 12:00 AM Laboratory - Blood Bank Order ABO/RH - LAB BLOOD [facility] July 14, 2022 02:05 PM Laboratory - Blood Bank Order TYPE & SCREEN - LAB BLOOD [facility] Aug 07, 2022 11:23 AM Laboratory - Chemi stry Order DRUG SCREEN PANEL,URINE URINE ONCE [facility] Aug 23, 2022 10:47 AM Laboratory - Chemi stry Order URINALYSIS URINE ER STAT [facility] Lab Results: +/- 30 days [...] Range Comment Aug 24, 2022 12:15 PM [facility] URINALYSIS Specimen Type: URINE No comment entered. Ordering Provider: LUCIO KIM Report Released Date/Time: Aug 24, 2022 09:34 AM Reporting Lab: [facility] [id number] Performing Lab: [facility] [address] URINE COLOR YELLOW SPECIFIC GRAVITY 1.030 1.003-1.03 [...] See_Commen t Aug 23, 2022 11:16 AM [facility] PROTHROMBIN TIME/INR Specimen Type: PLASMA No comment entered. Ordering Provider: Serena ESQUIVEL Report Released Date/Time: Aug 23, 2022 10:47 AM Aug 23, 2022 11:16 AM [facility] ACT PART THROMBO TIME Specimen Type: PLASMA No comment entered. Ordering Provider: Serena ESQUIVEL Report Released Date/Time: Aug 23, 2022 10:47 AM Reporting Lab: [facility] [id number] Performing Lab: [facility] [address] APTT 30.2 25.1-36.5 Aug 23, 2022 11:16 AM [facility] LIPID PANEL,NON-FASTING Specimen Type: PLASMA No comment entered. Ordering Provider: Serena ESQUIVEL Report Released Date/Time: Aug 23, 2022 10:47 AM Reporting Lab: [facility] [address] Performing Lab: [facility] [address] CHOLESTEROL 129 See_Comm en t .HDL 36 L See_Commen t LDL CALCULATION 68 See_ Commen t VLDL CALCULATION 25 See_Commen t NON HDL CHOLESTEROL 93 See_Commen t TRIG(NON FASTING) 123 See_Commen t Aug 23, 2022 11:16 AM [facility] TSH W/REFLEX TO FREE T4 Specimen Type: PLASMA No comment entered. Ordering Provider: Serena ESQUIVEL Report Released Date/Time: Aug 23, 2022 10:47 AM Reporting Lab: [facility] [address] Performing Lab: [facility] [address] TSH 1.54 0.35-4.94 Aug 23, 2022 11:16 AM [facility] CARDIAC TROPONIN I Specimen Type: PLASMA No comment entered. Ordering Provider: Serena ESQUIVEL Report Released Date/Time: Aug 23, 2022 10:47 AM Reporting Lab: [facility] [address] Performing Lab: [place] [id number] CARDIAC TROPONIN I <0.028 See_Commen t Aug 23, 2022 11:16 AM [facility] SED RATE Specimen Type: BLOOD No comment entered. Ordering Provider: Serena ESQUIVEL Report Released Date/Time: Aug 23, 2022 10:47 AM Reporting Lab: [facility] [address] Performing Lab: [facility] [address] SED RATE 31 H 5-15 Aug 23, 2022 11:16 AM [facility] C-REACTIVE PROTEIN Specimen Type: SERUM No comment entered. Ordering Provider: Serena ESQUIVEL Report Released Date/Time: Aug 23, 2022 10:47 AM Reporting Lab: [facility] [address] Performing Lab: [place] [phone] C-REACTIVE PROTEIN 3.14 See_Commen t Aug 23, 2022 11:16 AM [facility] PHOSPHORUS Specimen Type: PLASMA No comment entered. Ordering Provider: Serena ESQUIVEL Report Released Date/Time: Aug 23, 2022 10:47 AM Reporting Lab: [facility] [address] Performing Lab: [facility] [address] PHOSPHORUS 3.9 2.3-4.7 Aug 23, 2022 11:16 AM [facility] HEMOGLOBIN A1C Specimen Type: BLOOD [...] Aug 23, 2022 10:47 AM Reporting Lab: [facility] [address] Performing Lab: [facility] [address] HEMOGLOBIN A1C 4.2 4.0-6.0 Aug 23, 2022 11:16 AM [facility] COMPREHENSIVE METABOLIC PANEL+MG Specimen Type: PLASMA No comment entered. Ordering Provider: Serena ESQUIVEL Report Released Date/Time: Aug 23, 2022 10:47 AM Reporting Lab: [facility] [address] Performing Lab: [facility] [address] CREATININE 0.8 0.7-1.2 UREA NITROGEN 15 8-26 [...] See_Commen t Aug 23, 2022 11:16 AM [facility] CBC & DIFF Specimen Type: BLOOD Comment: Automated Differential Performed Ordering Provider: Serena ESQUIVEL Report Released Date/Time: Aug 23, 2022 10:47 AM Reporting Lab: [facility] [address] Performing Lab: [facility] [address] WBC 5.11 4.0-11.0 RBC 3.87 L 4.6-6.2 [...] 0.02 0-0.1 Aug 23, 2022 11:14 AM [facility] POC CREATININE Specimen Type: BLOOD No comment entered. Ordering Provider: LAVONNE PANCHAL Report Released Date/Time: Aug 23, 2022 11:16 AM Reporting Lab: [facility] [address] Performing Lab: [facility] [address] POC CREATININE 0.8 0.6-1.3 Social History: Smoking Status (Most current) and Tobacco Use (All prior to encounter date) This section includes the most current, and the historical, smoking and tobacco- related health factors from the [place] facility where the Encounter took place. Current Smoking Status This section includes the most current smoking, or tobacco-related health factor, from the [place] facility where the Encounter took place. Date/Time Current Smoking Status Comment Facil ity May 10, 2022 09:15 AM VA-TOBACCO FORMER USER [facility] Tobacco Use History This section includes a history of the smoking, or tobacco-related health factors, that were collected on or before the date of the Encounter. The data comes from the [place] facility where the Encounter took place. Date/Time Smoking Status/Tobacco Use Comment F acility May 10, 2022 09:15 AM VA-TOBACCO QUIT 15 YRS OR MORE [facility] May 11, 2021 09:15 AM VA-TOBACCO FORMER USER [facility] May 11, 2021 09:15 AM VA-TOBACCO QUIT 15 YRS OR MORE [facility] Nov 22, 2018 01:36 PM VA-TOBACCO NEVER USED [facility] Nov 12, 2017 07:35 AM FORMER TOBACCO USER 7Y OR GREATE R [facility] Nov 06, 2016 09:05 AM FORMER TOBACCO USER 7Y OR GREATE R [facility] Sep 27, 2015 09:42 AM FORMER TOBACCO USER 7Y OR GREATE R [facility] Sep 25, 2014 07:55 AM FORMER TOBACCO USER 7Y OR GREATE R [facility] Sep 08, 2013 07:48 AM FORMER TOBACCO USER 7Y OR GREATE R [facility] July 09, 2012 09:20 AM FORMER TOBACCO USE >1Y <7Y [facility] Jun 06, 2011 07:53 AM FORMER TOBACCO USE >1Y <7Y [facility] Sep 09, 2009 03:03 PM FORMER TOBACCO USE >1Y <7Y [facility] Aug 11, 2008 01:06 PM FORMER TOBACCO USE <1Y [facility] Sep 19, 2007 02:52 PM CURRENT TOBACCO USER [facility] Sep 03, 2006 03:32 PM CURRENT TOBACCO USER [facility] Advance Directives: All historical and current Section Date Range: From patient's date of to the date document was created. This section includes ALL of a patient's completed or amended [place] Advance and Rescinded Directives. The entries below indicate that a directive exists for the patient, but an actual copy is not included with this document. The data comes from all [facility]. Date Advance Directives Provider Source Mar 18, 2003 ADVANCE DIRECTIVE FARHAT MELGAR [facility] Radiology Reports: +/- 30 days of the [...] 2022 01:11 PM MRI-BRAIN (P): MARYJO WAGNER [id number] -[id number] M Ex Date: AUG 23, 2022@13:11 Req Phys: Serena ESQUIVEL Pat Loc: [facility]ALK-IN ([facility] Loc: MRI IMAGING Service: Unknown (Case [id number] COMPLETE) MRI BRAINBRAINSTEM W & W/O CONTRA(MRI Detailed) CPT:58987 Contrast Media : Gadolinium Reason for Study: APHASIA X3 DAYS Clinical History: MRI BRAIN WITH/WITHOUT CONTRAST [place] IS NOT under investigation for COVID-19 or is COVID-19 negative Did the ordering provider speak with a quality consultant regarding this imaging exam? Yes, Name of quality consultant (resident or staff):Neurology Aphasia x 3 days Responsible provider name and phone number to notify for critical findings if other than user placing the order and pager listed below: User placing orders pager: [phone] [id number] LAST CREATININE 0.8 (08/23/22) Allergies: HAZELNUTS (Nov 21, 2002) Report Status: Verified Date Reported: AUG 23, 2022 Date Verified: AUG 23, 2022 Water Resource Engineer E-Sig:/ES/TERESA SANTAMARIA MD Report: MRI BRAINBRAINSTEM [...] in the left supratentorial compartment results in zwvq-cg-gnpcw midline shift again measuring up to 1.4 [...] intracranial mass effect, with rightward subfalcine herniation (asbv-rm-lquua midline shift measures up to 1.4 cm) [...] Primary Interpreting Staff: TERESA SANTAMARIA MD, RADIOLOGIST (Water Resource Engineer) /[facility] TERESA SANTAMARIA [facility] Aug 23, 2022 12:03 PM CTA CAROTID/COW (P ): MARYJO WAGNER [id number] -[id number] M Ex Date: AUG 23, 2022@12:03 Req Phys: Serena ESQUIVEL Pat Loc: [facility] ([facility] Loc: CT IMAGING Service: Unknown (Case [id number] COMPLETE) CTA HEAD W/POSTPROCESSING (CT Detailed) CPT:20796 Contrast Media : unspecified contrast media Reason for Study: APHASIAx3 days (Case [id number] COMPLETE) CTA NECK (CT Detailed) CPT:86695 Contrast Media : unspecified contrast media Non-ionic [...] pager listed below: User placing orders pager: [phone] [id number] LAST 3: Collection DT Specimen Test Name [...] PLASMA ESTIMATED GFR(eGF >60 Ref: >=60 Allergies: ([place] only) HAZELNUTS (Nov 21, 2002) To see allergies from all [facility] locations click Reports tab>Remote Data>All Available Sites>Clinical Reports>Allergies. Report Status: Verified Date Reported: AUG 23, 2022 Date Verified: AUG 23, 2022 Water Resource Engineer E-Sig:/ES/TERESA SANTAMARIA MD Report: CTA HEAD [...] contribute to left cerebral white matter edema. Xadk-jp-mfylz midline shift measures up to 1.4 cm. [...] left lateral ventricle. Rightward subfalcine herniation, with zrop-iq-maodg midline shift measuring up to 1.4 cm. [...] Primary Interpreting Staff: TERESA SANTAMARIA MD, RADIOLOGIST (Water Resource Engineer) /[facility] TERESA SANTAMARIA [facility] Aug 23, 2022 09:29 AM ELBOW LEFT 3 OR MO RE VIEWS: MARYJO WAGNER [id number] -[id number] M Ex Date: AUG 23, 2022@09:29 Req Phys: LEIF PANDA Loc: [facility] 2F (Req'g Img Loc: MAIN X-RAY Service: Unknown (Case [id number] COMPLETE) ELBOW LEFT 3 OR MORE VIEWS (RAD Detailed) CPT:33071 Reason for Study: postop Clinical History: [place] IS NOT under investigation for COVID-19 or is COVID-19 negative postop Responsible provider name and phone number to notify for critical findings if other than user placing the order and pager listed below: User placing orders pager: [phone] LAST CREATININE 0.9 (07/19/22) Report Status: Verified Date Reported: AUG 23, 2022 Date Verified: AUG 23, 2022 Water Resource Engineer E-Sig:/ES/ALBINA LEE MD Report: Exam: Left [...] Primary Interpreting Staff: ALBINA LEE MD, RADIOLOGIST (Water Resource Engineer) /ALBINA SALEH [facility] Encounter Notes: All associated encounter notes This section contains the clinical notes associated to the Encounter. Date/Time Encounter Note(s) Provider Source Aug 24, 2022 11:53 AM PHARMACY EDUCATION NOTE: LOCAL TITLE: EDUCATION PHARMACY MED INSTRUCTION/RECONCILIATION STANDARD TITLE: PHARMACY EDUCATION NOTE DATE OF NOTE: AUG 24, 2022@11:53 ENTRY DATE: AUG 24, 2022@11:53:54 AUTHOR: ZHEN GARCIA COSIGNER: URGENCY: STATUS: COMPLETED MEDICATION DISCHARGE EDUCATION LEARNING NEEDS/OBJECTIVES Participant(s) indicates readiness to learn and has been instructed on indications, side effects, directions for use and given a list of medications. Participant(s) will receive medication information sheets for medications filled. Education included discussion of the following: New medications: levetiracetam, calcitriol, dexamethasone, pantoprazole, sulfamethoxazole/trimethopri m Tobacco Cessation Discharge Plan Not Applicable Active Outpatient Medications (including Supplies): Outpatient Medications Status 1) ASPIRIN 81MG EC TAB TAKE TWO TABLETS BY MOUTH EVERY ACTIVE DAY TO PREVENT BLOOD CLOTS TAKE UNTIL TOLD OKAY TO DISCONTINUE BY ORTHOPEDICS 2) CALCITRIOL 0.25MCG CAP TAKE TWO CAPSULES BY MOUTH ACTIVE TWICE A DAY 3) CATHETER,SELF-CATH COUDE 14FR COLO#[id number] USE CATHETER ACTIVE TOPICALLY DIRECTED 4) DEXAMETHASONE 4MG TAB TAKE ONE TABLET BY MOUTH TWICE ACTIVE A DAY FOR INFLAMMATION , AT 6:00AM AND 12:00PM 5) LEVETIRACETAM 500MG TAB TAKE ONE TABLET BY MOUTH ACTIVE TWICE A DAY FOR SEIZURE PREVENTION 6) LISINOPRIL 20MG TAB TAKE ONE TABLET BY MOUTH EVERY ACTIVE DAY FOR BLOOD PRESSURE 7) LUBRICATING TOP JELLY BACTERIOSTATIC APPLY JELLY ACTIVE TOPICALLY DIRECTED 8) NALOXONE HCL 4MG/SPRAY SOLN NASAL SPRAY SPRAY 1 DOSE ACTIVE IN ONE NOSTRIL NEEDED FOR UNRESPONSIVENESS THEN CALL 911 9) OXYCODONE 5MG TAB TAKE ONE TABLET BY MOUTH THREE ACTIVE TIMES A DAY NEEDED FOR PAIN 10) PANTOPRAZOLE NA 40MG EC TAB TAKE ONE TABLET BY MOUTH ACTIVE EVERY DAY FOR STOMACH ACID 11) SULFAMETHOXAZOLE 800/TRIMETH 160MG TAB TAKE 1 TABLET ACTIVE BY MOUTH SUNDAY, SUNDAY AND SUNDAY FOR INFECTION PREVENTION Non-VA Medications Status 1) Non-VA MULTIVITAMIN CAP/TAB 1 TABLET MOUTH EVERY DAY ACTIVE 12 Total Medications PARTICIPANTS: Patient, Family/significant other TEACHING STRATEGY: Face to Face, Medication information sheets and list of medications READINESS TO LEARN No barriers identified PATIENT/FAMILY RESPONSE (OUTCOME): Verbalizes critical information about the topic FOLLOW-UP RECOMMENDED: As directed by discharging provider /sangita/ Zhen Garcia PharmD, BCPS PHARMACIST Signed: 08/24/2022 11:55 Receipt Acknowledged By: * AWAITING SIGNATURE * MEENA KIM,ZHEN Echavarria [facility]
--- OUTSIDE RECORDS SUMMARY | 2023-03-24 08:35 | XMS_ITS ---
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 of Vetera [facility] Address [address] [place] [address] Support Name Relationship Address Phone DOREEN WAGNER Next of Kin [address] [place] [phone] DOREEN Emergency Contact [address] [place] [phone] Insurance Providers: All historical and current [...] Policy [place] [employer] M[employer] (WNR) MEDICARE ADVANTAGE [facility] (R) June 26, 2016 [id number] JOAN WAGNER KARSTEN PATIENT [employer] M[employer] (WNR) MEDICARE ADVANTAGE [facility] (WNR) June 26, 2016 [id number] [phone] JOAN WAGNER KARSTEN PATIENT [employer] M[employer] (WNR) MEDICARE ADVANTAGE [facility] (WNR) June 26, 2016 [id number] JOAN WAGNER PATIENT Selected Encounter This section includes the information on record at [place] for the Encounter. Date/Time Encounter Type Encounter Description Reason Pro vider Source Aug 24, 2022 11:30 AM Inpatient Visit DAILY HOSPITALIZATION DATA JOSE WELSH Encounter Template Text not used by [place] Plan of Treatment: Future Appointments (+ 6 months) and Future Tests (+/- 45 days) The Plan of Treatment section includes future care activities for the patient from all [place] treatmentfacilities. This section includes future appointments and future orders which are active, pending or scheduled. Future Appointments This section includes appointments that were scheduled to occur 6 months from the date of the Encounter, up to a maximum of 20 appointments. The data comes from all [facility]. Appointment Date/Time Appointment Type Appointme nt Facility Name Sep 06, 2022 10:15 AM AMBULATORY - SURGERY [facility] Oct 25, 2022 07:00 AM AMBULATORY - NONE [facility] Oct 25, 2022 07:30 AM AMBULATORY - SURGERY [facility] Oct 25, 2022 09:00 AM AMBULATORY - SURGERY [facility] Active, Pending, and Scheduled Orders This section includes a listing of several types of active, pending, and scheduled orders, including clinic medications orders, diagnostic test orders, procedure orders and consult orders; where the start date of the order is 45 days before the date of the Encounter or 45 days after the date of theEncounter. The data comes from all [facility]. Test Date/Time Test Type Test Details Facility Name July 14, 2022 12:00 AM Laboratory - Blood Bank Order ABO/RH - LAB BLOOD [facility] July 14, 2022 02:05 PM Laboratory - Blood Bank Order TYPE & SCREEN - LAB BLOOD [facility] Aug 07, 2022 11:23 AM Laboratory - Chemi stry Order DRUG SCREEN PANEL,URINE URINE [facility] Aug 23, 2022 10:47 AM Laboratory - Chemi stry Order URINALYSIS URINE ER STAT [facility] Lab Results: +/- 30 days of the encounter This section includes the Chemistry and Hematology Lab Results on record with [place] for the patient. Radiology Reports and Pathology Reports are provided separately, in subsequent sections. Lab Results This section contains the Chemistry/Hematology Results that were resulted 30 days before or 30 daysafter the date of the Encounter. Date/Time Source Result Type Result - Unit Interpretation Reference Range Comment Aug 24, 2022 12:15 PM [facility] URINALYSIS Specimen Type: URINE No comment entered. Ordering Provider: LUCIO KIM Report Released Date/Time: Aug 24, 2022 09:34 AM Reporting Lab: [facility] [id number] Performing Lab: [facility] [phone] URINE COLOR YELLOW SPECIFIC GRAVITY 1.030 1.003-1.03 [...] See_Commen t Aug 23, 2022 11:16 AM [facility] PROTHROMBIN TIME/INR Specimen Type: PLASMA No comment entered. Ordering Provider: Serena ESQUIVEL Report Released Date/Time: Aug 23, 2022 10:47 AM Aug 23, 2022 11:16 AM [facility] ACT PART THROMBO TIME Specimen Type: PLASMA No comment entered. Ordering Provider: Serena ESQUVIEL Report Released Date/Time: Aug 23, 2022 10:47 AM Reporting Lab: [facility] [phone] Performing Lab: [facility] [id number] APTT 30.2 25.1-36.5 Aug 23, 2022 11:16 AM [facility] LIPID PANEL,NON-FASTING Specimen Type: PLASMA No comment entered. Ordering Provider: Serena ESQUIVEL Report Released Date/Time: Aug 23, 2022 10:47 AM Reporting Lab: [facility] [phone] Performing Lab: [facility] [phone] CHOLESTEROL 129 See_Comm en t .HDL 36 L See_Commen t LDL CALCULATION 68 See_ Commen t VLDL CALCULATION 25 See_Commen t NON HDL CHOLESTEROL 93 See_Commen t TRIG(NON FASTING) 123 See_Commen t Aug 23, 2022 11:16 AM [facility] TSH W/REFLEX TO FREE T4 Specimen Type: PLASMA No comment entered. Ordering Provider: Serena ESQUIVEL Report Released Date/Time: Aug 23, 2022 10:47 AM Reporting Lab: [facility] [phone] Performing Lab: [facility] [phone] TSH 1.54 0.35-4.94 Aug 23, 2022 11:16 AM [facility] SED RATE Specimen Type: BLOOD No comment entered. Ordering Provider: Serena ESQUIVEL Report Released Date/Time: Aug 23, 2022 10:47 AM Reporting Lab: [facility] [phone] Performing Lab: [facility] [phone] SED RATE 31 H 5-15 Aug 23, 2022 11:16 AM [facility] CARDIAC TROPONIN I Specimen Type: PLASMA No comment entered. Ordering Provider: Serena ESQUVIEL Report Released Date/Time: Aug 23, 2022 10:47 AM Reporting Lab: [facility] [phone] Performing Lab: [facility] [address] CARDIAC TROPONIN I <0.028 See_Commen t Aug 23, 2022 11:16 AM [facility] C-REACTIVE PROTEIN Specimen Type: SERUM No comment entered. Ordering Provider: Serena ESQUIVEL Report Released Date/Time: Aug 23, 2022 10:47 AM Reporting Lab: [facility] [phone] Performing Lab: [facility] [phone] C-REACTIVE PROTEIN 3.14 See_Commen t Aug 23, 2022 11:16 AM [facility] PHOSPHORUS Specimen Type: PLASMA No comment entered. Ordering Provider: Serena ESQUIVEL Report Released Date/Time: Aug 23, 2022 10:47 AM Reporting Lab: [facility] [phone] Performing Lab: [facility] [address] PHOSPHORUS 3.9 2.3-4.7 Aug 23, 2022 11:16 AM [facility] COMPREHENSIVE METABOLIC PANEL+MG Specimen Type: PLASMA No comment entered. Ordering Provider: Serena ESQUIVEL Report Released Date/Time: Aug 23, 2022 10:47 AM Reporting Lab: [facility] [phone] Performing Lab: [facility] [phone] CREATININE 0.8 0.7-1.2 UREA NITROGEN 15 8-26 [...] See_Commen t Aug 23, 2022 11:16 AM [facility] HEMOGLOBIN A1C Specimen Type: BLOOD [...] Aug 23, 2022 10:47 AM Reporting Lab: [facility] [phone] Performing Lab: [facility] [address] HEMOGLOBIN A1C 4.2 4.0-6.0 Aug 23, 2022 11:16 AM [facility] CBC & DIFF Specimen Type: BLOOD Comment: Automated Differential Performed Ordering Provider: Serena ESQUIVEL Report Released Date/Time: Aug 23, 2022 10:47 AM Reporting Lab: [facility] [phone] Performing Lab: [facility] [phone] WBC 5.11 4.0-11.0 RBC 3.87 L 4.6-6.2 [...] 0.02 0-0.1 Aug 23, 2022 11:14 AM [facility] POC CREATININE Specimen Type: BLOOD No comment entered. Ordering Provider: LAVONNE PANCHAL Report Released Date/Time: Aug 23, 2022 11:16 AM Reporting Lab: [facility] [phone] Performing Lab: [facility] [phone] POC CREATININE 0.8 0.6-1.3 Social History: Smoking Status (Most current) and Tobacco Use (All prior to encounter date) This section includes the most current, and the historical, smoking and tobacco- related health factors from the [place] facility where the Encounter took place. Current Smoking Status This section includes the most current smoking, or tobacco-related health factor, from the [place] facility where the Encounter took place. Date/Time Current Smoking Status Comment Facil ity May 10, 2022 09:15 AM VA-TOBACCO FORMER USER [facility] Tobacco Use History This section includes a history of the smoking, or tobacco-related health factors, that were collected on or before the date of the Encounter. The data comes from the [place] facility where the Encounter took place. Date/Time Smoking Status/Tobacco Use Comment F acility May 10, 2022 09:15 AM VA-TOBACCO QUIT 15 YRS OR MORE [facility] May 11, 2021 09:15 AM VA-TOBACCO FORMER USER [facility] May 11, 2021 09:15 AM VA-TOBACCO QUIT 15 YRS OR MORE [facility] Nov 22, 2018 01:36 PM VA-TOBACCO NEVER USED [facility] Nov 12, 2017 07:35 AM FORMER TOBACCO USER 7Y OR GREATE R [facility] Nov 06, 2016 09:05 AM FORMER TOBACCO USER 7Y OR GREATE R [facility] Sep 27, 2015 09:42 AM FORMER TOBACCO USER 7Y OR GREATE R [facility] Sep 25, 2014 07:55 AM FORMER TOBACCO USER 7Y OR GREATE R [facility] Sep 08, 2013 07:48 AM FORMER TOBACCO USER 7Y OR GREATE R [facility] July 09, 2012 09:20 AM FORMER TOBACCO USE >1Y <7Y [facility] Jun 06, 2011 07:53 AM FORMER TOBACCO USE >1Y <7Y [facility] Sep 09, 2009 03:03 PM FORMER TOBACCO USE >1Y <7Y [facility] Aug 11, 2008 01:06 PM FORMER TOBACCO USE <1Y [facility] Sep 19, 2007 02:52 PM CURRENT TOBACCO USER [facility] Sep 03, 2006 03:32 PM CURRENT TOBACCO USER [facility] Advance Directives: All historical and current Section Date Range: From patient's date of to the date document was created. This section includes ALL of a patient's completed or amended [place] Advance and Rescinded Directives. The entries below indicate that a directive exists for the patient, but an actual copy is not included with this document. The data comes from all [facility]. Date Advance Directives Provider Source Mar 18, 2003 ADVANCE DIRECTIVE FARHAT MELGAR [facility] Radiology Reports: +/- 30 days of [...] the Encounter. The data comes from all [place] treatment facilities. Date/Time Radiology Report Provider Source Aug 23, 2022 01:11 PM MRI-BRAIN (P): BERNARDMARYJO DIRK [id number] -1950 M Ex Date: AUG 23, 2022@13:11 Req Phys: Serena ESQUIVEL Pat Loc: [facility] EMERGENCY DEPT WALK-IN ([facility] Loc: MRI IMAGING Service: Unknown (Case [id number] COMPLETE) MRI BRAINBRAINSTEM W & W/O CONTRA(MRI Detailed) CPT:13351 Contrast Media : Gadolinium Reason for Study: APHASIA X3 DAYS Clinical History: MRI BRAIN WITH/WITHOUT CONTRAST IS NOT under investigation for COVID-19 or is COVID-19 negative Did the ordering provider speak with a clinical science consultant regarding this imaging exam? Yes, Name of clinical science consultant (resident or staff):Neurology Aphasia x 3 days Responsible provider name and phone number to notify for critical findings if other than user placing the order and pager listed below: User placing orders pager: [phone] [id number] LAST CREATININE 0.8 (08/23/22) Allergies: HAZELNUTS (Nov 21, 2002) Report Status: Verified Date Reported: AUG 23, 2022 Date Verified: AUG 23, 2022 [employer] E-Sig:/ES/TERESA SANTAMARIA MD Report: MRI BRAINBRAINSTEM W [...] in the left supratentorial compartment results in zvdi-lj-xpaxd midline shift again measuring up to 1.4 [...] intracranial mass effect, with rightward subfalcine herniation (qhrj-lm-fkkis midline shift measures up to 1.4 cm) [...] Primary Interpreting Staff: TERESA SANTAMARIA MD, RADIOLOGIST ([employer]) /[facility] TERESA SANTAMARIA [facility] Aug 23, 2022 12:03 PM CTA CAROTID/COW (P ): MARYJO WAGNER [id number] -1950 M Ex Date: AUG 23, 2022@12:03 Req Phys: Serena ESQUIVEL Pat Loc: [facility] EMERGENCY DEPT WALK-IN (Re Im Loc: CT IMAGING Service: Unknown (Case [id number] COMPLETE) CTA HEAD W/POSTPROCESSING (CT Detailed) CPT:72199 Contrast Media : unspecified contrast media Reason for Study: APHASIAx3 days (Case [id number] COMPLETE) CTA NECK (CT Detailed) CPT:00360 Contrast Media : unspecified contrast media Non-ionic Iodinated Clinical History: HEAD/NECK CTA [place] IS NOT under investigation for COVID-19 or is COVID-19 negative Defer to radiologist for final CT protocol. Please enter pertinent clinical history on the next page. Responsible provider name and phone number to notify for critical findings if other than user placing the order and pager listed below: User placing orders pager: [phone] [id number] LAST 3: Collection DT Specimen Test Name [...] PLASMA ESTIMATED GFR(eGF >60 Ref: >=60 Allergies: ([place] only) HAZELNUTS (Nov 21, 2002) To see allergies from all [facility] locations click Reports tab>Remote Data>All Available Sites>Clinical Reports>Allergies. Report Status: Verified Date Reported: AUG 23, 2022 Date Verified: AUG 23, 2022 [employer] E-Sig:/ES/TERESA SANTAMARIA MD Report: CTA HEAD W/POSTPROCESSING, [...] contribute to left cerebral white matter edema. Qtvl-xq-tthrx midline shift measures up to 1.4 cm. [...] left lateral ventricle. Rightward subfalcine herniation, with eufq-nj-icoba midline shift measuring up to 1.4 cm. [...] Primary Interpreting Staff: TERESA SANTAMARIA MD, RADIOLOGIST ([employer]) /[facility] TERESA SANTAMARIA [facility] Aug 23, 2022 09:29 AM ELBOW LEFT 3 OR MO RE VIEWS: MARYJO WAGNER MATARA [id number] -1950 M Ex Date: AUG 23, 2022@09:29 Req Phys: LEIF PANDA Loc: [facility] ORTHO OT KENA 2F (Req'g Img Loc: MAIN X-RAY Service: Unknown (Case [id number] COMPLETE) ELBOW LEFT 3 OR MORE VIEWS (RAD Detailed) CPT:22424 Reason for Study: postop Clinical History: IS NOT under investigation for COVID-19 or is COVID-19 negative postop Responsible provider name and phone number to notify for critical findings if other than user placing the order and pager listed below: User placing orders pager: [phone] LAST CREATININE 0.9 (07/19/22) Report Status: Verified Date Reported: AUG 23, 2022 Date Verified: AUG 23, 2022 [employer] E-Sig:/ES/ALBINA LEE MD Report: Exam: Left elbow [...] Primary Interpreting Staff: ALBINA LEE MD, RADIOLOGIST ([employer]) /ALBINA SALEH [facility]
--- OUTSIDE RECORDS SUMMARY | 2023-03-24 08:35 | XMS_ITS | Encounter Summary ---
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 Address [address] [place] [address] Support Name Relationship Address Phone ANNA VARGAS Next of Kin [address] [place] [phone] ANNA Emergency Contact [address] [place] [address] Insurance Providers: All historical and current [...] [place]'s Name Patient's Relationship to Policy [place] [facility]LY [facility] ([facility]) MEDICARE ADVANTAGE MCR ([facility]) June 26, 2016 [id number] JOAN VARGAS KARSTEN PATIENT HUMANFORMERLY [facility] ([facility]) MEDICARE ADVANTAGE MCR ([facility]) June 26, 2016 [id number] JOAN VARGAS KARSTEN PATIENT [employer] MCR (WNR) MEDICARE ADVANTAGE MCR ([facility]) June 26, 2016 [id number] JOAN VARGAS PATIENT Selected Encounter This section includes the information on record at [place] for the Encounter. Date/Time Encounter Type Encounter Description Reason Provider Source Aug 24, 2022 12:02 PM OFF/OP EST JUNE X REQ PHY/QHP HOSPICE CARE ICD-10-CM C64.2 Malignant neoplasm of left kidney, except renal pelvis MICHELLE MOSS IHE Encounter Template Text not used by [place] Assessments - Encounter Diagnoses This section includes the primary and secondary diagnoses documented for the Encounter. Date/Time Primary/Secondary Diagnosis Diagnosis Name Provider Source Aug 24, 2022 12:11 PM PRIMARY Malignant neoplasm of left kidney, except renal pelvis MICHELLE MOSS [facility] Plan of Treatment: Future Appointments (+ 6 months) and Future Tests (+/- 45 days) The Plan of Treatment section includes future care activities for the patient [facility] [place] [facility] This section includes future appointments and future orders which are active, pending or scheduled. Future Appointments This section includes appointments that were scheduled to occur 6 months from the date of the Encounter, up to a maximum of 20 appointments. The data comes from all [facility]. Appointment Date/Time Appointment Type Appointme nt Facility Name Sep 06, 2022 10:15 AM AMBULATORY - SURGERY [facility] Oct 25, 2022 07:00 AM AMBULATORY - NONE [facility] Oct 25, 2022 07:30 AM AMBULATORY - SURGERY [facility] Oct 25, 2022 09:00 AM AMBULATORY - SURGERY [facility] Active, Pending, and Scheduled Orders This section includes a listing of several types of active, pending, and scheduled orders, including clinic medications orders, diagnostic test orders, procedure orders and consult orders; where the start date of the order is 45 days before the date of the Encounter or 45 days after the date of theEncounter. The data comes from all [facility]. Test Date/Time Test Type Test Details Facility Name July 14, 2022 12:00 AM Laboratory - Blood Bank Order ABO/RH - LAB BLOOD [facility] July 14, 2022 02:05 PM Laboratory - Blood Bank Order TYPE & SCREEN - LAB BLOOD [facility] Aug 07, 2022 11:23 AM Laboratory - Chemi stry Order DRUG SCREEN PANEL,URINE URINE ONCE [facility] Aug 23, 2022 10:47 AM Laboratory - Chemi stry Order URINALYSIS URINE ER STAT [facility] Lab Results: +/- 30 days of the encounter This section includes the Chemistry and Hematology Lab Results on record with [place] for the patient. Radiology Reports and Pathology [...] 09:34 AM Reporting Lab: [facility] [address] Performing Lab: [facility] [address] URINE COLOR YELLOW SPECIFIC GRAVITY 1.030 1.003-1.03 [...] 10:47 AM Reporting Lab: [facility] [address] Performing Lab: [facility] [address] APTT 30.2 25.1-36.5 Aug 23, 2022 11:16 AM [facility] LIPID PANEL,NON-FASTING Specimen Type: PLASMA No comment entered. Ordering Provider: Serena ESQUIVEL Report Released Date/Time: Aug 23, 2022 10:47 AM Reporting Lab: [facility] [address] Performing Lab: [facility] [address] CHOLESTEROL 129 See_Comm en t .HDL 36 [...] 10:47 AM Reporting Lab: [facility] [address] Performing Lab: [facility] [address] TSH 1.54 0.35-4.94 Aug 23, 2022 11:16 AM [facility] CARDIAC TROPONIN I Specimen Type: PLASMA No comment entered. Ordering Provider: Serena ESQUIVEL Report Released Date/Time: Aug 23, 2022 10:47 AM Reporting Lab: [facility] [address] Performing Lab: [place] [address] CARDIAC TROPONIN I <0.028 See_Commen t Aug 23, 2022 11:16 AM [facility] SED RATE Specimen Type: BLOOD No comment entered. Ordering Provider: Serena ESQUIVEL Report Released Date/Time: Aug 23, 2022 10:47 AM Reporting Lab: [facility] [address] Performing Lab: [facility] [address] SED RATE 31 H 5-15 Aug 23, 2022 11:16 AM [facility] C-REACTIVE PROTEIN Specimen Type: SERUM No comment entered. Ordering Provider: Serena ESQUIVEL Report Released Date/Time: Aug 23, 2022 10:47 AM Reporting Lab: [facility] [address] Performing Lab: [facility] [address] C-REACTIVE PROTEIN 3.14 See_Commen t Aug 23, 2022 11:16 AM [facility] PHOSPHORUS Specimen Type: PLASMA No comment entered. Ordering Provider: Serena ESQUIVEL Report Released Date/Time: Aug 23, 2022 10:47 AM Reporting Lab: [facility] [address] Performing Lab: [facility] [address] PHOSPHORUS 3.9 2.3-4.7 Aug 23, 2022 11:16 [...] 10:47 AM Reporting Lab: [facility] [address] Performing Lab: [facility] [address] HEMOGLOBIN A1C 4.2 4.0-6.0 Aug 23, 2022 11:16 AM [facility] COMPREHENSIVE METABOLIC PANEL+MG Specimen Type: PLASMA No comment entered. Ordering Provider: Serena ESQUIVEL Report Released Date/Time: Aug 23, 2022 10:47 AM Reporting Lab: [facility] [address] Performing Lab: [facility] [address] CREATININE 0.8 0.7-1.2 UREA NITROGEN 15 8-26 [...] Comment: Automated Differential Performed Ordering Provider: Serena ESQUIEVL Report Released Date/Time: Aug 23, 2022 10:47 AM Reporting Lab: [facility] [address] Performing Lab: [facility] [address] WBC 5.11 4.0-11.0 RBC 3.87 L 4.6-6.2 [...] 11:16 AM Reporting Lab: [facility] [address] Performing Lab: [facility] [address] POC CREATININE 0.8 0.6-1.3 Social History: Smoking Status (Most current) and Tobacco Use (All prior to encounter date) This section includes the most current, and the historical, smoking and tobacco- related health factors from the [facility] where the Encounter took place. Current Smoking Status This section includes the most current smoking, or tobacco-related health factor, from the [place] facility where the Encounter took place. Date/Time Current Smoking Status Comment Adore ity May 10, 2022 09:15 AM VA-TOBACCO FORMER USER [facility] Tobacco Use History This section includes a history of the smoking, or tobacco-related health factors, that were collected on or before the date of the Encounter. The data comes from the [place] facility where the Encounter took place. Date/Time [...] ALL of a patient's completed or amended [place] Advance and Rescinded Directives. The entries below [...] the Encounter. The data comes from all [place] treatment facilities. Date/Time Radiology Report Provider Source Aug 23, 2022 01:11 PM MRI-BRAIN (P): MARYJO VARGAS [id number] -1950 M Exm Date: AUG 23, 2022@13:11 Req Phys: Serena ESQUIVEL Pat Loc: [facility] EMERGENCY DEPT WALK-IN (Re Img Loc: MRI IMAGING Service: Unknown (Case [id number] COMPLETE) MRI BRAINBRAINSTEM W & W/O CONTRA(MRI Detailed) CPT:21520 Contrast Media : Gadolinium Reason for Study: APHASIA X3 DAYS Clinical History: MRI BRAIN WITH/WITHOUT CONTRAST IS NOT under investigation for COVID-19 or is COVID-19 negative Did the ordering provider speak with a lean process deployment consultant regarding this imaging exam? Yes, Name of lean process deployment consultant (resident or staff):Neurology Aphasia x 3 days Responsible provider name and phone number to notify for critical findings if other than user placing the order and pager listed below: User placing orders pager: [phone] [id number] LAST CREATININE 0.8 (08/23/22) Allergies: HAZELNUTS (Nov 21, 2002) Report Status: Verified Date Reported: AUG 23, 2022 Date Verified: AUG 23, 2022 Room Attendant E-Sig:/ES/TERESA SANTAMARIA MD Report: MRI BRAINBRAINSTEM W [...] in the left supratentorial compartment results in twdk-rr-fuorb midline shift again measuring up to 1.4 [...] intracranial mass effect, with rightward subfalcine herniation (mqhv-bx-vucbx midline shift measures up to 1.4 cm) [...] Primary Interpreting Staff: TERESA SANTAMARIA MD, RADIOLOGIST (Room Attendant) /[facility] TERESA SANTAMARIA [facility] Aug 23, 2022 12:03 PM CTA CAROTID/COW (P ): MARYJO VARGAS [id number] -[id number] M Ex Date: AUG 23, 2022@12:03 Req Phys: Serena ESQUIVEL Loc: [facility] EMERGENCY [facility]PT WALK-IN ([facility] Loc: CT IMAGING Service: Unknown (Case [id number] COMPLETE) CTA HEAD W/POSTPROCESSING (CT Detailed) CPT:90425 Contrast Media : unspecified contrast media Reason for Study: APHASIAx3 days (Case [id number] COMPLETE) CTA NECK (CT Detailed) CPT:03939 Contrast Media : unspecified contrast media Non-ionic [...] pager listed below: User placing orders pager: [phone] [id number] LAST 3: Collection DT Specimen Test Name [...] PLASMA ESTIMATED GFR(eGF >60 Ref: >=60 Allergies: ([place] only) HAZELNUTS (Nov 21, 2002) To see allergies from all [place] locations click Reports tab>Remote Data>All Available Sites>Clinical Reports>Allergies. Report Status: Verified Date Reported: AUG 23, 2022 Date Verified: AUG 23, 2022 Room Attendant E-Sig:/ES/TERESA SANTAMARIA MD Report: CTA HEAD W/POSTPROCESSING, [...] contribute to left cerebral white matter edema. Hlks-mp-gxddw midline shift measures up to 1.4 cm. [...] left lateral ventricle. Rightward subfalcine herniation, with vgnd-bu-hmtxx midline shift measuring up to 1.4 cm. [...] Primary Interpreting Staff: TERESA SANTAMARIA MD, RADIOLOGIST (Room Attendant) /[facility] TERESA SANTAMARIA [facility] Aug 23, 2022 09:29 AM ELBOW LEFT 3 OR MO RE VIEWS: MARYJO VARGAS [id number] -[id number] M Exm Date: AUG 23, 2022@09:29 Req Phys: LEIF PANDA T Pat Loc: [facility] 2F (Req'g Img Loc: MAIN X-RAY Service: Unknown (Case [id number] COMPLETE) ELBOW LEFT 3 OR MORE VIEWS (RAD Detailed) CPT:65324 Reason for Study: postop Clinical History: [place] IS NOT under investigation for COVID-19 or is COVID-19 negative postop Responsible provider name and phone number to notify for critical findings if other than user placing the order and pager listed below: User placing orders pager: [phone] LAST CREATININE 0.9 (07/19/22) Report Status: Verified Date Reported: AUG 23, 2022 Date Verified: AUG 23, 2022 Room Attendant E-Sig:/ES/ALBINA LEE MD Report: Exam: Left elbow [...] Primary Interpreting Staff: ALBINA LEE MD, RADIOLOGIST (Room Attendant) /ALBINA SALEH [facility] Encounter Notes: All associated encounter notes This section contains the clinical notes associated to the Encounter. Date/Time Encounter Note(s) Provider Source Aug 24, 2022 12:02 PM PALLIATIVE CARE CO NSULT: LOCAL TITLE: HOSPICE CARE CONSULT STANDARD TITLE: PALLIATIVE CARE CONSULT DATE OF NOTE: AUG 24, 2022@12:02 ENTRY DATE: AUG 24, 2022@12:02:50 AUTHOR: MICHELLE MOSS COSIGNER: URGENCY: STATUS: COMPLETED HOSPICE CARE CONSULT Has ADDENDA [facility] Nurse Coordinators ([address]) [address] [address] Primary Care Physician to follow into hospice: Christine Carrillo MD Office phone number: [phone] If problems arise with the care of this patient and the Primary provider is unavailable, the Hospice agency can contact the [place] 24 Hour Nurse line at [phone]. Eligibility: PRIMARY ELIGIBILTY CODE - SERVICE CONNECTED 50% to 100% IMPAIRED HEARING 0% SC TINNITUS 10% SC NEOPLASM, MALIGNANT, GENITOURINARY 100% SC SERVICE CONNECTED % - 100 ENROLLMENT PRIORITY: GROUP 1 Home Health Nurse (HHN) Referral Note Date referral phoned to agency: Jul Agency Name: 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 Patient Status Report: PROGNOSIS 6 MONTHS OR LESS Mental Status: Hospice to assess Medication: Active Inpatient Medications (including Supplies): ACETAMINOPHEN (INPT) TAB 650MG PO Q4H PRN FOR PAIN (1st ACTIVE line): MAX DOSE of acetaminophen is 4000mg in 24 hours CALCITRIOL CAP,ORAL 0.5MCG PO BID ACTIVE DEXAMETHASONE INJ,SOLN DEXAMETHASONE 4 MG in 0.9% NACL 50 ACTIVE ML OVER 20 MINUTES IVPB QAM/NOON ENOXAPARIN INJ 40MG/0.4ML SQ QNOON Prophylactic protocol ACTIVE *give only in abdomen LEVETIRACETAM TAB 500MG PO BID ACTIVE LISINOPRIL TAB 20MG PO QDAY ACTIVE ONDANSETRON INJ,SOLN 4MG/2ML IV Q6H PRN FOR NAUSEA ACTIVE OXYCODONE TAB 5MG PO TID PRN for pain (2nd line) ACTIVE PANTOPRAZOLE TAB,EC 40MG PO DQDAY ACTIVE POLYETHYLENE GLYCOL 3350 POWDER,ORAL 17 GM PKT PO QDAY ACTIVE PRN FOR CONSTIPATION. MIX IN JUICE OR WATER. SULFAMETHOXAZOLE/TRIMETHOPR IM TAB 800/160 MG PO ACTIVE MO-WE-FR@0900 Allergies: HAZELNUTS (Nov 21, 2002) [place]/family given choice of agencies and indicate no preference. has elected the following payer. Anticipated Payer: Medicare [employer] (LTC) eligibility notified: Yes Hospice agencies estimated enrollment date: agency to schedule [facility] hospice please coordinate enrollment with Mr. Vargas's spouse Anna [phone]. is at the [facility] ER and will discharge today 08/24/22, returning home. Please provide a wheelchair. Thank you! packet faxed 35 minutes e-consult /sangita/ Michelle Moss RN, BSN Hospice Community Health Coordinator Signed: 08/24/2022 12:12 Receipt Acknowledged By: 08/24/2022 15:15 /sangita/ Christine Carrillo MD Physician 08/25/2022 ADDENDUM STATUS: COMPLETED Left VM for Nadeen at [facility] to verify hospice enrollment. /sangita/ Michelle Moss RN, BSN Hospice Community Health Coordinator Signed: 08/25/2022 14:23 08/25/2022 ADDENDUM STATUS: COMPLETED Spoke to Nadeen at [facility], Mr. Vargas enrolled on 08/25/22 and Medicare is the payer /es/ Michelle Moss RN, BSN Hospice Community Health Coordinator Signed: 08/25/2022 14:26 MIHCELLE MOSS [facility]
--- OUTSIDE RECORDS SUMMARY | 2023-03-24 08:36 | XMS_ITS | Encounter Summary ---
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 ([facility]) MEDICARE ADVANTAGE MCR ([facility]) June 26, 2016 [id number] JOAN WAGNER KARSTEN PATIENT [employer] MCR (WN) MEDICARE ADVANTAGE MCR ([facility]) June 26, 2016 [id number] JOAN WAGNER KARSTEN PATIENT [employer] MCR (WNR) MEDICARE ADVANTAGE MCR ([facility]) June 26, 2016 [id number] JOAN WAGNER KARSTEN PATIENT Selected Encounter This section includes the information on record at [place] for the Encounter. Date/Time Encounter Type Encounter Description Reason Provider Source Aug 24, 2022 01:42 PM [facility] IP/OBS MODERATE 35 NEUROLOGY ICD-10-CM C64.2 Malignant neoplasm of left kidney, except renal pelvis CALDWELL,BENNY R IHE Encounter Template Text not used by [place] Assessments - Encounter Diagnoses This section includes the primary and secondary diagnoses documented for the Encounter. Date/Time Primary/Secondary Diagnosis Diagnosis Name Provider Source Aug 24, 2022 01:53 PM PRIMARY Malignant neoplasm of left kidney, except renal pelvis CONCEPCIÓN STANFORD [facility] Aug 24, 2022 01:53 PM SECONDARY Malignant neoplasm of cerebral ventricle CONCEPCIÓN STANFORD [facility] Plan of Treatment: Future Appointments (+ 6 months) and Future Tests (+/- 45 days) The Plan of Treatment section includes future care activities for the [facility] [place] [facility] This section includes future appointments and future orders which are active, pending or scheduled. Future Appointments This section includes appointments that were scheduled to occur 6 months from the date of the Encounter, up to a maximum of 20 appointments. The data comes from all [facility]. Appointment Date/Time Appointment Type Appointme nt Facility Name Sep 06, 2022 10:15 AM AMBULATORY - SURGERY [facility] Oct 25, 2022 07:00 AM AMBULATORY - NONE [facility] Oct 25, 2022 07:30 AM AMBULATORY - SURGERY [facility] Oct 25, 2022 09:00 AM AMBULATORY - SURGERY [facility] Active, Pending, and Scheduled Orders This section includes a listing of several types of active, pending, and scheduled orders, including clinic medications orders, diagnostic test orders, procedure orders and consult orders; where the start date of the order is 45 days before the date of the Encounter or 45 days after the date of theEncounter. The data comes from all [facility]. Test Date/Time Test Type Test Details Facility Name July 14, 2022 12:00 AM Laboratory - Blood Bank Order ABO/RH - LAB BLOOD [facility] July 14, 2022 02:05 PM Laboratory - Blood Bank Order TYPE & SCREEN - LAB BLOOD [facility] Aug 07, 2022 11:23 AM Laboratory - Chemi strKoinify Order DRUG SCREEN PANEL,URINE URINE ONCE [facility] Aug 23, 2022 10:47 AM Laboratory - Chemi stry Order URINALYSIS URINE ER STAT [facility] Lab Results: +/- 30 days of the encounter This section includes the Chemistry and Hematology Lab Results on record with [place] for the patient. Radiology Reports and Pathology Reports are provided separately, in subsequent sections. Lab Results This section contains the Chemistry/Hematology Results that were resulted 30 days before or 30 daysafter the date of the Encounter. Date/Time Source Result Type Result - Unit Interpretation Reference Range Comment Aug 24, 2022 12:15 PM [facility] URINALYSIS Specimen Type: URINE No comment entered. Ordering Provider: LUCIO KIM Report Released Date/Time: Aug 24, 2022 09:34 AM Reporting Lab: [facility] [id number] Performing Lab: [facility] [id number] URINE COLOR YELLOW SPECIFIC GRAVITY 1.030 1.003-1.03 [...] See_Commen t Aug 23, 2022 11:16 AM [facility] PROTHROMBIN TIME/INR Specimen Type: PLASMA No comment entered. Ordering Provider: Serena ESQUIVEL Report Released Date/Time: Aug 23, 2022 10:47 AM Aug 23, 2022 11:16 AM [facility] ACT PART THROMBO TIME Specimen Type: PLASMA No comment entered. Ordering Provider: Serena ESQUIVEL Report Released Date/Time: Aug 23, 2022 10:47 AM Reporting Lab: [facility] [id number] Performing Lab: [facility] [id number] APTT 30.2 25.1-36.5 Aug 23, 2022 11:16 AM [facility] TSH W/REFLEX TO FREE T4 Specimen Type: PLASMA No comment entered. Ordering Provider: Serena ESQUIVEL Report Released Date/Time: Aug 23, 2022 10:47 AM Reporting Lab: [facility] [id number] Performing Lab: [facility] [address] TSH 1.54 0.35-4.94 Aug 23, 2022 11:16 AM [facility] LIPID PANEL,NON-FASTING Specimen Type: PLASMA No comment entered. Ordering Provider: Serena ESQUIVEL Report Released Date/Time: Aug 23, 2022 10:47 AM Reporting Lab: [facility] [address] Performing Lab: [facility] [address] CHOLESTEROL 129 See_Comm en t .HDL 36 L See_Commen t LDL CALCULATION 68 See_ Commen t VLDL CALCULATION 25 See_Commen t NON HDL CHOLESTEROL 93 See_Commen t TRIG(NON FASTING) 123 See_Commen t Aug 23, 2022 11:16 AM [facility] SED RATE Specimen Type: BLOOD No comment entered. Ordering Provider: Serena ESQUIVEL Report Released Date/Time: Aug 23, 2022 10:47 AM Reporting Lab: [facility] [phone] Performing Lab: [facility] [id number] SED RATE 31 H 5-15 Aug 23, 2022 11:16 AM [facility] CARDIAC TROPONIN I Specimen Type: PLASMA No comment entered. Ordering Provider: Serena ESQUIVEL Report Released Date/Time: Aug 23, 2022 10:47 AM Reporting Lab: [facility] [address] Performing Lab: [facility] [address] CARDIAC TROPONIN I <0.028 See_Commen t Aug 23, 2022 11:16 AM [facility] C-REACTIVE PROTEIN Specimen Type: SERUM No comment entered. Ordering Provider: Serena ESQUIVEL Report Released Date/Time: Aug 23, 2022 10:47 AM Reporting Lab: [facility] [address] Performing Lab: [facility] [address] C-REACTIVE PROTEIN 3.14 See_Commen t Aug 23, 2022 11:16 AM [facility] PHOSPHORUS Specimen Type: PLASMA No comment entered. Ordering Provider: Serena ESQUIVEL Report Released Date/Time: Aug 23, 2022 10:47 AM Reporting Lab: [facility] [address] Performing Lab: [facility] [address] PHOSPHORUS 3.9 2.3-4.7 Aug 23, 2022 11:16 AM [facility] COMPREHENSIVE METABOLIC PANEL+MG Specimen Type: PLASMA No comment entered. Ordering Provider: Serena ESQUIVEL Report Released Date/Time: Aug 23, 2022 10:47 AM Reporting Lab: [facility] [address] Performing Lab: [facility] [address] CREATININE 0.8 0.7-1.2 UREA NITROGEN 15 8-26 [...] See_Commen t Aug 23, 2022 11:16 AM [facility] HEMOGLOBIN A1C Specimen Type: [...] 2022 10:47 AM Reporting Lab: [facility] [address] Performing Lab: [facility] [address] HEMOGLOBIN A1C 4.2 4.0-6.0 Aug 23, 2022 11:16 AM [facility] CBC & DIFF Specimen Type: BLOOD Comment: Automated Differential Performed Ordering Provider: Serena ESQUIVEL Report Released Date/Time: Aug 23, 2022 10:47 AM Reporting Lab: [facility] [address] Performing Lab: [facility] [address] WBC 5.11 4.0-11.0 RBC 3.87 L 4.6-6.2 [...] 0.02 0-0.1 Aug 23, 2022 11:14 AM [facility] POC CREATININE Specimen Type: BLOOD No comment entered. Ordering Provider: LAVONNE PANCHAL Report Released Date/Time: Aug 23, 2022 11:16 AM Reporting Lab: [facility] [address] Performing Lab: [facility] [address] POC CREATININE 0.8 0.6-1.3 Social History: Smoking Status (Most current) and Tobacco Use (All prior to encounter date) This section includes the most current, and the historical, smoking and tobacco- related health factors from the [place] facility where the Encounter took place. Current Smoking Status This section includes the most current smoking, or tobacco-related health factor, from the [place] facility where the Encounter took place. Date/Time Current Smoking Status Comment Facil ity May 10, 2022 09:15 AM VA-TOBACCO FORMER USER [facility] Tobacco Use History This section includes a history of the smoking, or tobacco-related health factors, that were collected on or before the date of the Encounter. The data comes from the [place] facility where the Encounter took place. Date/Time Smoking Status/Tobacco Use Comment F acility May 10, 2022 09:15 AM VA-TOBACCO QUIT 15 YRS OR MORE [facility] May 11, 2021 09:15 AM VA-TOBACCO FORMER USER [facility] May 11, 2021 09:15 AM VA-TOBACCO QUIT 15 YRS OR MORE [facility] Nov 22, 2018 01:36 PM VA-TOBACCO NEVER USED [facility] Nov 12, 2017 07:35 AM FORMER TOBACCO USER 7Y OR GREATE R [facility] Nov 06, 2016 09:05 AM FORMER TOBACCO USER 7Y OR GREATE R [facility] Sep 27, 2015 09:42 AM FORMER TOBACCO USER 7Y OR GREATE R [facility] Sep 25, 2014 07:55 AM FORMER TOBACCO USER 7Y OR GREATE R [facility] Sep 08, 2013 07:48 AM FORMER TOBACCO USER 7Y OR GREATE R [facility] July 09, 2012 09:20 AM FORMER TOBACCO USE >1Y <7Y [facility] Jun 06, 2011 07:53 AM FORMER TOBACCO USE >1Y <7Y [facility] Sep 09, 2009 03:03 PM FORMER TOBACCO USE >1Y <7Y [facility] Aug 11, 2008 01:06 PM FORMER TOBACCO USE <1Y [facility] Sep 19, 2007 02:52 PM CURRENT TOBACCO USER [facility] Sep 03, 2006 03:32 PM CURRENT TOBACCO USER [facility] Advance Directives: All historical and current Section Date Range: From patient's date of to the date document was created. This section includes ALL of a patient's completed or amended [place] Advance and Rescinded Directives. The entries below indicate that a directive exists for the patient, but an actual copy is not included with this document. The data comes from all [facility]. Date Advance Directives Provider Source Mar [...] the Encounter. The data comes from all [place] treatment facilities. Date/Time Radiology Report Provider Source Aug 23, 2022 01:11 PM MRI-BRAIN (P): MARYJO WAGNER [id number] -[id number] M Ex Date: AUG 23, 2022@13:11 Req Phys: Serena ESQUIVEL Loc: [facility] (Re Img Loc: MRI IMAGING Service: Unknown (Case [id number] COMPLETE) MRI BRAINBRAINSTEM W & W/O CONTRA(MRI Detailed) CPT:45353 Contrast Media : Gadolinium Reason for Study: APHASIA X3 DAYS Clinical History: MRI BRAIN WITH/WITHOUT CONTRAST IS NOT under investigation for COVID-19 or is COVID-19 negative Did the ordering provider speak with a entry level sales consultant regarding this imaging exam? Yes, Name of entry level sales consultant (resident or staff):Neurology Aphasia x 3 days Responsible provider name and phone number to notify for critical findings if other than user placing the order and pager listed below: User placing orders pager: [phone] [id number] LAST CREATININE 0.8 (08/23/22) Allergies: HAZELNUTS (Nov 21, 2002) Report Status: Verified Date Reported: AUG 23, 2022 Date Verified: AUG 23, 2022 Maintenance Supervisor E-Sig:/ES/TERESA SANTAMARIA MD Report: MRI BRAINBRAINSTEM W [...] in the left supratentorial compartment results in gbeg-wz-kjvco midline shift again measuring up to 1.4 [...] intracranial mass effect, with rightward subfalcine herniation (olvp-no-qnsbf midline shift measures up to 1.4 cm) [...] Primary Interpreting Staff: TERESA SANTAMARIA MD, RADIOLOGIST (Maintenance Supervisor) /[facility] TERESA SANTAMARIA [facility] Aug 23, 2022 12:03 PM CTA CAROTID/COW (P ): MARYJO WAGNER [id number] -1950 M [facility] Date: AUG 23, 2022@12:03 Req Phys: Serena ESQUIVEL Pat Loc: [facility] ( Img Loc: CT IMAGING Service: Unknown (Case [id number] COMPLETE) CTA HEAD W/POSTPROCESSING (CT Detailed) CPT:23779 Contrast Media : unspecified contrast media Reason for Study: APHASIAx3 days (Case [id number] COMPLETE) CTA NECK (CT Detailed) CPT:49404 Contrast Media : unspecified contrast media Non-ionic [...] pager listed below: User placing orders pager: [phone] [id number] LAST 3: Collection DT Specimen Test Name [...] PLASMA ESTIMATED GFR(eGF >60 Ref: >=60 Allergies: ([place] only) DANETTEELARMANDOS (Nov 21, 2002) To see allergies from all [place] locations click Reports tab>Remote Data>All Available Sites>Clinical Reports>Allergies. Report Status: Verified Date Reported: AUG 23, 2022 Date Verified: AUG 23, 2022 Maintenance Supervisor E-Sig:/ES/TERESA SANTAMARIA MD Report: CTA HEAD W/POSTPROCESSING, [...] contribute to left cerebral white matter edema. Rjoz-bi-yxhgs midline shift measures up to 1.4 cm. [...] left lateral ventricle. Rightward subfalcine herniation, with bhne-yk-lshch midline shift measuring up to 1.4 cm. [...] Primary Interpreting Staff: TERESA SANTAMARIA MD, RADIOLOGIST (Maintenance Supervisor) /[facility] TERESA SANTAMARIA [facility] Aug 23, 2022 09:29 AM ELBOW LEFT 3 OR MO RE VIEWS: MARYJO WAGNER [id number] -[id number] M Exm Date: AUG 23, 2022@09:29 Req Phys: LEIF PANDA Loc: [facility] 2F (Req'g Img Loc: MAIN X-RAY Service: Unknown (Case [id number] COMPLETE) ELBOW LEFT 3 OR MORE VIEWS (RAD Detailed) CPT:53398 Reason for Study: postop Clinical History: [place] IS NOT under investigation for COVID-19 or is COVID-19 negative postop Responsible provider name and phone number to notify for critical findings if other than user placing the order and pager listed below: User placing orders pager: [phone] LAST CREATININE 0.9 (07/19/22) Report Status: Verified Date Reported: AUG 23, 2022 Date Verified: AUG 23, 2022 Maintenance Supervisor E-Sig:/ES/ALBINA LEE MD Report: Exam: Left elbow [...] Primary Interpreting Staff: ALBINA LEE MD, RADIOLOGIST (Maintenance Supervisor) /ALBINA SALEH [facility] Encounter Notes: All associated encounter notes This section contains the clinical notes associated to the Encounter. Date/Time Encounter Note(s) Provider Source Aug 24, 2022 01:42 PM NEUROLOGY ATTENDIN G NOTE: LOCAL TITLE: NEUROLOGY INPT PROGRESS NOTE STANDARD TITLE: NEUROLOGY ATTENDING NOTE DATE OF NOTE: AUG 24, 2022@13:42 ENTRY DATE: AUG 24, 2022@13:42:12 AUTHOR: CONCEPCIÓN STANFORD EXP COSIGNER: URGENCY: STATUS: COMPLETED NEUROLOGY FOLLOW UP VISIT PATIENT SUMMARY: Maryjo Wagner is a 72 year old male with history of metastatic renal cell carcinoma (recent pathologic fracture of left humerus due to metastatic disease) and prostate cancer who presented with aphasia. He was found to have an intraventricular contrast enhancing mass on MRI, most likely metastatic renal cell carcinoma, with edema and midline shift. INTERVAL HISTORY: Neurosurgery evaluated patient and spoke with patient and his , who declined neurosurgical intervention. They had previously declined chemotherapy or immunotherapy (see heme/onc note 05/17/22), and affirmed this decision to the primary medicine team. He denies any overnight events. No changes to his speech production. He denies any new weakness, numbness, tingling, headaches, vision changes, or dysphagia. CURRENT MEDICATIONS: Active Outpatient Medications (including Supplies): Active Outpatient Medications Status 1) ASPIRIN 81MG EC TAB TAKE TWO TABLETS BY MOUTH EVERY ACTIVE DAY TO PREVENT BLOOD CLOTS TAKE UNTIL TOLD OKAY TO DISCONTINUE BY ORTHOPEDICS 2) CALCITRIOL 0.25MCG CAP TAKE TWO CAPSULES BY MOUTH ACTIVE TWICE A DAY 3) CATHETER,SELF-CATH COUDE 14FR COLO#[id number] USE CATHETER ACTIVE TOPICALLY DIRECTED 4) DEXAMETHASONE [...] SUNDAY, SUNDAY AND SUNDAY FOR INFECTION PREVENTION Active Non-VA Medications Status 1) Non-VA MULTIVITAMIN CAP/TAB 1 TABLET MOUTH EVERY DAY ACTIVE 12 Total Medications EXAM General: patient lying in bed, no acute distress HEENT: normocephalic, atraumatic, no epistaxis Cardiovascular: regular rate per vitals Respiratory: breathing comfortably on room air GI: non-distended Extremities: no edema Skin: warm, dry NEUROLOGIC EXAM: -Mental Status: Awake and alert. Assessment of orientation was affected by word finding difficulties- pt was unable to state his name, described current location as medical, and identified that we are in the sixth month. Pt spoke in word salads and often had difficulties finding words. Unable to repeat a short phrase or spell world. He was able to name a cup and paper pad but was unable to name a jacket. Unable to identify the number of quarters are in one dollar. -Cranial Nerves: Pupils reactive to light. Conjugate gaze. EOMI with smooth pursuit. Facial sensation intact/symmetric. [...] 5 Dorsiflex 5 5 Plantarflex 5 5 Sensory: Light touch intact and symmetric throughout SUMMARY OF PERTINENT INVESTIGATIONS: MRI Brain w/ [...] intracranial mass effect, with rightward subfalcine herniation (eajs-hm-lduel midline shift measures up to 1.4 cm) [...] suboptimal due to motion artifact. IMPRESSION: Maryjo Wagner is a 72 year old male with a history of metastatic renal cell carcinoma, prostate cancer, who presents with severe mixed aphasia and mild encephalopathy. MRI revealed an enhancing mass centered at the posterior body of the left lateral ventricle that is likely intraventricular in origin, which is causing midline shift of ventricles and vasogenic edema. Edema likely causing patient's aphasia. Agree with radiology impression that this is most likely metastatic rather than a new primary tumor. Pt has declined cancer directed treatment (surgery or chemotherapy) after speaking with neurosurgery and his primary team. He would like to involve palliative care and discuss hospice. Pt elected to pursue steroids for symptomatic treatment and was started on dexamethasone yesterday. We discussed the mechanism of steroids and counseled regarding side effects. RECOMMENDATIONS: - appreciate neurosurgery recommendations - agree with palliative consult - continue dexamethasone 4 mg twice daily at 0600 and 1200 - continue PPI for ulcer prophylaxis - start Bactrim 160-800 every Sunday, Sunday, Sunday for PCP prophylaxis - continue Vit D/Calcium supplement - sodium goal: normonatremia - HOB elevated at 30 degrees, neck midline - avoid hypotonic fluids No neurology clinic follow up required as goals of care are focused on comfort. Neurology will sign off at this time. Please do not hesitate to contact our service with further questions or concerns. Patient seen and discussed with neurology attending, Dr. Caldwell, who agrees with my assessment and plan. /sangita/ CONCEPCIÓN STANFORD MD RESIDENT Signed: 08/24/2022 13:53 Receipt Acknowledged By: * AWAITING SIGNATURE * BENNY CALDWELL [facility]
--- OUTSIDE RECORDS SUMMARY | 2023-03-24 08:37 | XMS_ITS | Encounter Summary ---
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 [facility] Organization Department of [facility] Address [address] [place] [address] Support Name Relationship Address Phone DOREEN WAGNER Next of Kin [address] [place] [phone] DOREEN Emergency Contact [address] [place] [phone] Insurance Providers: All historical and current [...] Name Patient's Relationship to Policy Casey [employer] [facility] (WNR) MEDICARE ADVANTAGE [facility] ([facility]) June 26, 2016 [id number] CARSONJOAN ROWELL PATIENT [employer] MCR (WNR) MEDICARE ADVANTAGE [facility] ([facility]) June 26, 2016 [id number] JOAN WAGNER KARSTEN PATIENT [employer] MCR (WNR) MEDICARE ADVANTAGE [facility] (WNR) June 26, 2016 [id number] JOAN WAGNER KARSTEN PATIENT Selected Encounter This section includes the information on record at CT for the Encounter. Date/Time Encounter Type Encounter Description Reason Pro vider Source Aug 24, 2022 01:00 AM Inpatient Visit ADMIN [employer] (Augur) SYSTEM,[facility] Encounter Template Text not used by CT Plan of Treatment: Future Appointments (+ 6 [...] 20 appointments. The data comes from all [facility]. Appointment Date/Time Appointment Type Appointme nt Facility Name Sep 06, 2022 10:15 AM AMBULATORY - SURGERY [facility] Oct 25, 2022 07:00 AM AMBULATORY - NONE [facility] Oct 25, 2022 07:30 AM AMBULATORY - SURGERY [facility] Oct 25, 2022 09:00 AM AMBULATORY - SURGERY [facility] Active, Pending, and Scheduled Orders This section includes a listing of several types of active, pending, and scheduled orders, including clinic medications orders, diagnostic test orders, procedure orders and consult orders; where the start date of the order is 45 days before the date of the Encounter or 45 days after the date of theEncounter. The data comes from all [facility]. Test Date/Time Test Type Test Details Facility Name July 14, 2022 12:00 AM Laboratory - Blood Bank Order ABO/RH - LAB BLOOD [facility] July 14, 2022 02:05 PM Laboratory - Blood Bank Order TYPE & SCREEN - LAB BLOOD [facility] Aug 07, 2022 11:23 AM Laboratory - Chemi stry Order DRUG SCREEN PANEL,URINE URINE [facility] Aug 23, 2022 10:47 AM Laboratory - Chemi stry Order URINALYSIS URINE ER STAT [facility] Lab Results: +/- 30 days of the encounter This section includes the Chemistry and Hematology Lab Results on record with CT for the patient. Radiology Reports and Pathology Reports are provided separately, in subsequent sections. Lab Results This section contains the Chemistry/Hematology Results that were resulted 30 days before or 30 daysafter the date of the Encounter. Date/Time Source Result Type Result - Unit Interpretation Reference Range Comment Aug 24, 2022 12:15 PM [facility] URINALYSIS Specimen Type: URINE No comment entered. Ordering Provider: LUCIO KIM Report Released Date/Time: Aug 24, 2022 09:34 AM Reporting Lab: [facility] [id number] Performing Lab: [facility] [id number] URINE COLOR YELLOW SPECIFIC GRAVITY 1.030 1.003-1.03 [...] See_Commen t Aug 23, 2022 11:16 AM [facility] PROTHROMBIN TIME/INR Specimen Type: PLASMA No comment entered. Ordering Provider: Serena ESQUIVEL Report Released Date/Time: Aug 23, 2022 10:47 AM Aug 23, 2022 11:16 AM [facility] ACT PART THROMBO TIME Specimen Type: PLASMA No comment entered. Ordering Provider: Serena ESQUIVEL Report Released Date/Time: Aug 23, 2022 10:47 AM Reporting Lab: [facility] [phone] Performing Lab: [facility] [address] APTT 30.2 25.1-36.5 Aug 23, 2022 11:16 AM [facility] LIPID PANEL,NON-FASTING Specimen Type: PLASMA No comment entered. Ordering Provider: Serena ESQUIVEL Report Released Date/Time: Aug 23, 2022 10:47 AM Reporting Lab: [facility] [id number] Performing Lab: [facility] [address] CHOLESTEROL 129 See_Comm en t .HDL 36 L See_Commen t LDL CALCULATION 68 See_ Commen t VLDL CALCULATION 25 See_Commen t NON HDL CHOLESTEROL 93 See_Commen t TRIG(NON FASTING) 123 See_Commen t Aug 23, 2022 11:16 AM [facility] TSH W/REFLEX TO FREE T4 Specimen Type: PLASMA No comment entered. Ordering Provider: Serena ESQUIVEL Report Released Date/Time: Aug 23, 2022 10:47 AM Reporting Lab: [facility] [phone] Performing Lab: [facility] [address] TSH 1.54 0.35-4.94 Aug 23, 2022 11:16 AM [facility] CARDIAC TROPONIN I Specimen Type: PLASMA No comment entered. Ordering Provider: Serena ESQUIVEL Report Released Date/Time: Aug 23, 2022 10:47 AM Reporting Lab: [facility] [phone] Performing Lab: [facility] [address] CARDIAC TROPONIN I <0.028 See_Commen t Aug 23, 2022 11:16 AM [facility] SED RATE Specimen Type: BLOOD No comment entered. Ordering Provider: Serena ESQUIVEL Report Released Date/Time: Aug 23, 2022 10:47 AM Reporting Lab: [facility] [phone] Performing Lab: [facility] [address] SED RATE 31 H 5-15 Aug 23, 2022 11:16 AM [facility] C-REACTIVE PROTEIN Specimen Type: SERUM No comment entered. Ordering Provider: Serena ESQUIVEL Report Released Date/Time: Aug 23, 2022 10:47 AM Reporting Lab: [facility] [phone] Performing Lab: [facility] [phone] C-REACTIVE PROTEIN 3.14 See_Commen t Aug 23, 2022 11:16 AM [facility] PHOSPHORUS Specimen Type: PLASMA No comment entered. Ordering Provider: Serena ESQUIVEL Report Released Date/Time: Aug 23, 2022 10:47 AM Reporting Lab: [facility] [address] Performing Lab: [facility] [address] PHOSPHORUS 3.9 2.3-4.7 Aug 23, 2022 11:16 AM [facility] HEMOGLOBIN A1C Specimen Type: BLOOD Comment: [...] Aug 23, 2022 10:47 AM Reporting Lab: [facility] [address] Performing Lab: [facility] [address] HEMOGLOBIN A1C 4.2 4.0-6.0 Aug 23, 2022 11:16 AM [facility] COMPREHENSIVE METABOLIC PANEL+MG Specimen Type: PLASMA No comment entered. Ordering Provider: Serena ESQUIVEL Report Released Date/Time: Aug 23, 2022 10:47 AM Reporting Lab: [facility] [address] Performing Lab: [facility] [address] CREATININE 0.8 0.7-1.2 UREA NITROGEN 15 8-26 [...] See_Commen t Aug 23, 2022 11:16 AM [facility] CBC & DIFF Specimen Type: BLOOD Comment: Automated Differential Performed Ordering Provider: Serena ESQUIVEL Report Released Date/Time: Aug 23, 2022 10:47 AM Reporting Lab: [facility] [address] Performing Lab: [facility] [address] WBC 5.11 4.0-11.0 RBC 3.87 L 4.6-6.2 [...] 0.02 0-0.1 Aug 23, 2022 11:14 AM [facility] POC CREATININE Specimen Type: BLOOD No comment entered. Ordering Provider: LAVONNE PANCHAL Report Released Date/Time: Aug 23, 2022 11:16 AM Reporting Lab: [facility] [address] Performing Lab: [facility] [address] POC CREATININE 0.8 0.6-1.3 Social History: Smoking Status (Most current) and Tobacco Use (All prior to encounter date) This section includes the most current, and the historical, smoking and tobacco- related health factors from the CT facility where the Encounter took place. Current Smoking Status This section includes the most current smoking, or tobacco-related health factor, from the CT facility where the Encounter took place. Date/Time Current Smoking Status Comment Facil ity May 10, 2022 09:15 AM VA-TOBACCO FORMER USER [facility] Tobacco Use History This section includes a history of the smoking, or tobacco-related health factors, that were collected on or before the date of the Encounter. The data comes from the CT facility where the Encounter took place. Date/Time Smoking Status/Tobacco Use Comment F acility May 10, 2022 09:15 AM VA-TOBACCO QUIT 15 YRS OR MORE [facility] May 11, 2021 09:15 AM VA-TOBACCO FORMER USER [facility] May 11, 2021 09:15 AM VA-TOBACCO QUIT 15 YRS OR MORE [facility] Nov 22, 2018 01:36 PM VA-TOBACCO NEVER USED [facility] Nov 12, 2017 07:35 AM FORMER TOBACCO USER 7Y OR GREATE R [facility] Nov 06, 2016 09:05 AM FORMER TOBACCO USER 7Y OR GREATE R [facility] Sep 27, 2015 09:42 AM FORMER TOBACCO USER 7Y OR GREATE R [facility] Sep 25, 2014 07:55 AM FORMER TOBACCO USER 7Y OR GREATE R [facility] Sep 08, 2013 07:48 AM FORMER TOBACCO USER 7Y OR GREATE R [facility] July 09, 2012 09:20 AM FORMER TOBACCO USE >1Y <7Y [facility] Jun 06, 2011 07:53 AM FORMER TOBACCO USE >1Y <7Y [facility] Sep 09, 2009 03:03 PM FORMER TOBACCO USE >1Y <7Y [facility] Aug 11, 2008 01:06 PM FORMER TOBACCO USE <1Y [facility] Sep 19, 2007 02:52 PM CURRENT TOBACCO USER [facility] Sep 03, 2006 03:32 PM CURRENT TOBACCO USER [facility] Advance Directives: All historical and current Section Date Range: From patient's date of to the date document was created. This section includes ALL of a patient's completed or amended CT Advance and Rescinded Directives. The entries below indicate that a directive exists for the patient, but an actual copy is not included with this document. The data comes from all [facility]. Date Advance Directives Provider Source Mar 18, [...] the Encounter. The data comes from all CT treatment facilities. Date/Time Radiology Report Provider Source Aug 23, 2022 01:11 PM MRI-BRAIN (P): MARYJO WAGNER [id number] -[id number] M Ex Date: AUG 23, 2022@13:11 Req Phys: Serena ESQUIVEL Pat Loc: [facility] EMERGENCY DEPT WALK-IN (Re Img Loc: MRI IMAGING Service: Unknown (Case [id number] COMPLETE) MRI BRAINBRAINSTEM W & W/O CONTRA(MRI Detailed) CPT:07006 Contrast Media : Gadolinium Reason for Study: APHASIA X3 DAYS Clinical History: MRI BRAIN WITH/WITHOUT CONTRAST IS NOT under investigation for COVID-19 or is COVID-19 negative Did the ordering provider speak with a network security consultant regarding this imaging exam? Yes, Name of network security consultant (resident or staff):Neurology Aphasia x 3 days Responsible provider name and phone number to notify for critical findings if other than user placing the order and pager listed below: User placing orders pager: [phone] LAST CREATININE 0.8 (08/23/22) Allergies: HAZELNUTS (Nov 21, 2002) Report Status: Verified Date Reported: AUG 23, 2022 Date Verified: AUG 23, 2022 Unloader Operator E-Sig:/ES/TERESA SANTAMARIA MD Report: MRI BRAINBRAINSTEM [...] in the left supratentorial compartment results in rfgb-rl-cslcn midline shift again measuring up to 1.4 [...] intracranial mass effect, with rightward subfalcine herniation (nwhz-xq-otiuo midline shift measures up to 1.4 cm) [...] Primary Interpreting Staff: TERESA SANTAMARIA MD, RADIOLOGIST (Unloader Operator) /[facility] TERESA SANTAMARIA [facility] Aug 23, 2022 12:03 PM CTA CAROTID/COW (P ): MARYJO WAGNER [id number] -[id number] M Ex Date: AUG 23, 2022@12:03 Req Phys: Serena ESQUIVEL Pat Loc: [facility] EMERGENCY DEPT WALK[place] [facility] [place]: [place] IMAGING Service: Unknown (Case [id number] COMPLETE) CTA HEAD W/POSTPROCESSING (CT Detailed) CPT:72745 Contrast Media : unspecified contrast media Reason for Study: APHASIAx3 days (Case [id number] COMPLETE) CTA NECK (CT Detailed) CPT:75571 Contrast Media : unspecified contrast media Non-ionic Iodinated Clinical History: HEAD/NECK CTA [place] IS NOT under investigation for COVID-19 or is COVID-19 negative Defer to radiologist for final CT protocol. Please enter pertinent clinical history on the next page. Responsible provider name and phone number to notify for critical findings if other than user placing the order and pager listed below: User placing orders pager: [phone] LAST 3: Collection DT Specimen Test Name [...] PLASMA ESTIMATED GFR(eGF >60 Ref: >=60 Allergies: ([place] only) HAZELNUTS (Nov 21, 2002) To see allergies from all [facility] locations click Reports tab>Remote Data>All Available Sites>Clinical Reports>Allergies. Report Status: Verified Date Reported: AUG 23, 2022 Date Verified: AUG 23, 2022 Unloader Operator E-Sig:/ES/TERESA SANTAMARIA MD Report: CTA HEAD [...] contribute to left cerebral white matter edema. Orzw-em-wmtih midline shift measures up to 1.4 cm. [...] left lateral ventricle. Rightward subfalcine herniation, with fjpt-gy-pyyah midline shift measuring up to 1.4 cm. [...] Primary Interpreting Staff: TERESA SANTAMARIA MD, RADIOLOGIST (Unloader Operator) /[facility] TERESA SANTAMARIA [facility] Aug 23, 2022 09:29 AM ELBOW LEFT 3 OR MO RE VIEWS: MARYJO WAGNER MATARA [id number] -[id number] M Ex Date: AUG 23, 2022@09:29 Req Phys: LEIF PANDA Loc: [facility] ORTHO OT KENA 2F (Req'g Img Loc: MAIN X-RAY Service: Unknown (Case [id number] COMPLETE) ELBOW LEFT 3 OR MORE VIEWS (RAD Detailed) CPT:42272 Reason for Study: postop Clinical History: IS NOT under investigation for COVID-19 or is COVID-19 negative postop Responsible provider name and phone number to notify for critical findings if other than user placing the order and pager listed below: User placing orders pager: [phone] LAST CREATININE 0.9 (07/19/22) Report Status: Verified Date Reported: AUG 23, 2022 Date Verified: AUG 23, 2022 Unloader Operator E-Sig:/ES/ALBINA LEE MD Report: Exam: Left [...] Primary Interpreting Staff: ALBINA LEE MD, RADIOLOGIST (Unloader Operator) /[facility] Encounter Notes: All associated encounter notes This section contains the clinical notes associated to the Encounter. Date/Time Encounter Note(s) Provider Source Aug 24, 2022 01:00 AM CRITICAL CARE UNIT NOTE: LOCAL TITLE: [facility] EMERGENCY DEPT FLOWSHEET STANDARD TITLE: CRITICAL CARE UNIT NOTE DATE OF NOTE: AUG 24, 2022@01:00 ENTRY DATE: AUG 25, 2022@01:32:26 AUTHOR: SYSTEM,[employer] EXP COSIGNER: URGENCY: STATUS: COMPLETED This is a place casey only. Please see [email or web address] to view document. /es/ [employer] SYSTEM ICU DOCUMENT IMPORT Signed: 08/25/2022 01:32 SYSTEMSnapLayout-Helpr [facility] Aug 24, 2022 01:00 AM CRITICAL CARE UNIT NOTE: LOCAL TITLE: [facility] RESPIRATORY THERAPY FLOWSHEET STANDARD TITLE: CRITICAL CARE UNIT NOTE DATE OF NOTE: AUG 24, 2022@01:00 ENTRY DATE: AUG 25, 2022@16:44:13 AUTHOR: SYSTEM,[employer] EXP COSIGNER: URGENCY: STATUS: COMPLETED This is a place casey only. Please see [employer] to view document. /es/ [facility] SYSTEM ICU DOCUMENT IMPORT Signed: 08/25/2022 16:44 SYSTEM,[facility]
--- OUTSIDE RECORDS SUMMARY | 2023-03-24 08:37 | XMS_ITS ---
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 of Vetera [facility] Address [address] [place] [address] Support Name Relationship Address Phone DOREEN WAGNER Next of Kin [address] [place] [phone] DOREEN Emergency Contact [address] [place] [phone] Insurance Providers: All historical and current [...] Name Patient's Relationship to Policy [place] [employer] [facility] (WNR) MEDICARE ADVANTAGE [facility] (R) June 26, 2016 [id number] [phone] JOAN WAGNER KARSTEN PATIENT [employer] MCR (WNR) MEDICARE ADVANTAGE [facility] (WNR) June 26, 2016 [id number] [phone] JOAN WAGNER KARSTEN PATIENT [employer] MCR (WNR) MEDICARE ADVANTAGE [facility] (WNR) June 26, 2016 [id number] JOAN WAGNER PATIENT Selected Encounter This section includes the information on record at [place] for the Encounter. Date/Time Encounter Type Encounter Description Reason Pro vider Source July 17, 2022 04:51 PM Inpatient Visit DAILY HOSPITALIZATION DATA [facility] Encounter Template Text not used by [place] Plan of Treatment: Future Appointments (+ 6 [...] 20 appointments. The data comes from all [facility]. Appointment Date/Time Appointment Type Appointme nt Facility Name Jul 28, 2022 10:45 AM [facility] Aug 13, 2022 06:13 PM AMBULATORY - MEDICINE [facility] Aug 23, 2022 09:30 AM AMBULATORY - SURGERY [facility] Aug 23, 2022 09:45 AM [facility] N[facility] Aug 23, 2022 10:30 AM AMBULATORY - MEDICINE [facility] Aug 23, 2022 10:31 AM AMBULATORY - MEDICINE [facility] Sep 06, 2022 10:15 AM AMBULATORY - SURGERY [facility] Oct 25, 2022 07:00 AM [facility] Oct 25, 2022 07:30 AM AMBULATORY - SURGERY [facility] Oct 25, 2022 09:00 AM AMBULATORY - SURGERY [facility] Active, Pending, and Scheduled Orders This section includes a listing of several types of active, pending, and scheduled orders, including clinic medications orders, diagnostic test orders, procedure orders and consult orders; where the start date of the order is 45 days before the date of the Encounter or 45 days after the date of theEncounter. The data comes from all [facility]. Test Date/Time Test Type Test Details Facility Name Jun 12, 2022 12:00 AM Laboratory - Chemistry Order CBC & DIFF BLOOD ONCO SP ONCE [facility] Jun 12, 2022 12:00 AM Laboratory - Chemistry Order COMPREHENSIVE METABOLIC PANEL+MG PLASMA ONCO SP [facility] Jun 12, 2022 12:00 AM Laboratory - Chemistry Order TSH W/REFLEX TO FREE T4 PLASMA ONCO SP ONCE [facility] July 14, 2022 12:00 AM Laboratory - Blood Bank Order ABO/RH - LAB BLOOD [facility] July 14, 2022 02:05 PM Laboratory - Blood Bank Order TYPE & SCREEN - LAB BLOOD [facility] Aug 07, 2022 11:23 AM Laboratory - Chemistry Order DRUG SCREEN PANEL,URINE URINE [facility] Aug 23, 2022 10:47 AM Laboratory - Chemistry Order URINALYSIS URINE ER STAT [facility] Lab Results: +/- 30 days [...] Range Comment July 19, 2022 04:40 PM [facility] FINGERSTICK GLUCOSE Specimen Type: BLOOD Comment: Save Result Nurse Notified Ordering Provider: MACKENZIE COTTER Report Released Date/Time: July 19, 2022 05:00 PM Reporting Lab: [facility] [address] Performing Lab: [facility] [address] FINGERSTICK GLUCOSE 132 70-100 July 19, 2022 07:13 AM [facility] COMPREHENSIVE METABOLIC PANEL+MG Specimen Type: PLASMA No comment entered. Ordering Provider: MACKENZIE COTTER Report Released Date/Time: July 18, 2022 05:40 PM Reporting Lab: [facility] [address] Performing Lab: [facility] [address] CREATININE 0.9 0.7-1.2 UREA NITROGEN 24 8-26 [...] See_Commen t July 19, 2022 07:13 AM [facility] IRON GROUP Specimen Type: SERUM No comment entered. Ordering Provider: MACKENZIE COTTER Report Released Date/Time: July 18, 2022 05:40 PM Reporting Lab: [facility] [address] Performing Lab: [facility] [address] IRON 28 L 65-175 TIBC,CALCULATE D 223 L 250-425 FERRITIN 73.7 21.8-274.7 IRON SATURATION 13 L 20-50 TRANSFERRIN 178 163-382 July 19, 2022 07:13 AM [facility] CBC Specimen Type: BLOOD No comment entered. Ordering Provider: MACKENZIE COTTER Report Released Date/Time: July 18, 2022 05:40 PM Reporting Lab: [facility] [address] Performing Lab: [facility] [address] WBC 7.73 4.0-11.0 RBC 2.42 L 4.6-6.2 HGB 8.2 L 13.5-17.9 HCT 23.8 L 41-54 MCV 98.3 80-100 MCH 33.9 H 27-33 MCHC 34.5 32.0-37.5 PLT 155 150-400 MPV 9.6 7.4-10.4 RDW 13.5 11.5-14.5 July 19, 2022 05:44 AM [facility] FINGERSTICK GLUCOSE Specimen Type: BLOOD Comment: Save Result Nurse Notified Ordering Provider: MACKENZIE COTTER Report Released Date/Time: July 19, 2022 11:54 AM Reporting Lab: [facility] [phone] Performing Lab: [facility] [address] FINGERSTICK GLUCOSE 137 70-100 July 18, 2022 10:51 PM [facility] FINGERSTICK GLUCOSE Specimen Type: BLOOD Comment: Save Result Nurse Notified Ordering Provider: MACKENZIE COTTER Report Released Date/Time: July 18, 2022 11:06 PM Reporting Lab: [facility] [address] Performing Lab: [facility] [address] FINGERSTICK GLUCOSE 163 70-100 July 17, 2022 06:51 AM [facility] BASIC METABOLIC PANEL+MG Specimen Type: PLASMA No comment entered. Ordering Provider: DANG VALLE Report Released Date/Time: July 16, 2022 09:37 AM Reporting Lab: [facility] [address] Performing Lab: [facility] [address] CREATININE 0.8 0.7-1.2 UREA NITROGEN 23 8-26 GLUCOSE 107 H 70-100 SODIUM 139 136-145 POTASSIUM 3.9 3.5-5.1 CHLORIDE 106 98-107 CO2 28 22-29 CALCIUM 9.1 8.4-10.2 MAGNESIUM 1.9 1.6-2.6 ANION GAP 5 5-15 .CREAT EGFR(CKD-EPI) >90 See_Commen t July 17, 2022 06:51 AM [facility] PROTHROMBIN TIME/INR Specimen Type: PLASMA No comment entered. Ordering Provider: DANG VALLE R Report Released Date/Time: July 16, 2022 09:37 AM Reporting Lab: [facility] [address] Performing Lab: [facility] [address] .INR 1.0 0.8-1.1 .PT 11.5 9.4-12.5 July 17, 2022 06:51 AM [facility] CBC Specimen Type: BLOOD No comment entered. Ordering Provider: DANG VALLE R Report Released Date/Time: July 16, 2022 09:37 AM Reporting Lab: [facility] [address] Performing Lab: [facility] [address] WBC 6.05 4.0-11.0 RBC 3.77 L 4.6-6.2 HGB 12.7 L 13.5-17.9 HCT 36.0 L 41-54 MCV 95.5 80-100 MCH 33.7 H 27-33 MCHC 35.3 32.0-37.5 PLT 179 150-400 MPV 9.4 7.4-10.4 RDW 13.2 11.5-14.5 July 13, 2022 11:22 AM [facility] COVID-19 AND FLU/RSV DIAG PANEL(CEPHEID) Specimen Typ e: NASOPHARYNGEAL Comment: Cepheid GeneXpert (618) Ordering Provider: WHITNEY ANDERSON Report Released Date/Time: July 13, 2022 11:04 AM Reporting Lab: [facility] [address] Performing Lab: [facility] [address] COVID-19 (CEPHEID) Not Detected Not Detected INFLUENZA A (PCR) Not Detected Not Detected INFLUENZA B (PCR) Not Detected Not Detected RSV (PCR) Not Detected Not Detected July 13, 2022 11:00 AM [facility] C-REACTIVE PROTEIN Specimen Type: SERUM Comment: Automated Differential Performed Ordering Provider: WHITNEY ANDERSON Report Released Date/Time: July 13, 2022 11:04 AM Reporting Lab: [facility] [address] Performing Lab: [facility] [address] C-REACTIVE PROTEIN 1.17 <5.00 July 13, 2022 11:00 AM [facility] PROTHROMBIN TIME/INR Specimen Type: PLASMA No comment entered. Ordering Provider: WHITNEY ANDERSON Report Released Date/Time: July 13, 2022 11:04 AM Reporting Lab: [facility] [address] Performing Lab: [facility] [address] .INR 0.9 0.8-1.1 .PT 11.1 9.4-12.5 July 13, 2022 11:00 AM [facility] SED RATE Specimen Type: BLOOD No comment entered. Ordering Provider: WHITNEY ANDERSON Report Released Date/Time: July 13, 2022 11:04 AM Reporting Lab: [facility] [address] Performing Lab: [facility] [address] SED RATE 10 5-15 July 13, 2022 11:00 AM [facility] CBC & DIFF Specimen Type: BLOOD Comment: Automated Differential Performed Ordering Provider: WHITNEY ANDERSON Report Released Date/Time: July 13, 2022 11:04 AM Reporting Lab: [facility] [address] Performing Lab: [facility] [address] WBC 8.82 4.0-11.0 RBC 3.89 L 4.6-6.2 [...] 0.03 0-0.1 July 13, 2022 11:00 AM [facility] COMPREHENSIVE METABOLIC PANEL+MG Specimen Type: PLASMA Comment: Automated Differential Performed Ordering Provider: WHITNEY ANDERSON Report Released Date/Time: July 13, 2022 11:04 AM Reporting Lab: [facility] [address] Performing Lab: [facility] [address] CREATININE 1.0 0.7-1.2 UREA NITROGEN 16 8-26 [...] Pain Height Weight Body Mass Index Source July 17, 2022 11:20 PM 7 [facility] July 17, 2022 11:18 PM 7 [facility] July 17, 2022 11:11 PM 97.9 F 72 /min 122/77 mm[Hg] 18 /min 95 % 0 [facility] July 17, 2022 10:38 PM 7 [facility] July 17, 2022 08:55 PM 7 [facility] Social History: Smoking Status (Most current) [...] 10, 2022 09:15 AM VA-TOBACCO FORMER USER [facility] Tobacco Use History This section includes a history of the smoking, or tobacco-related health factors, that were collected on or before the date of the Encounter. The data comes from the [place] facility where the Encounter took place. Date/Time Smoking Status/Tobacco Use Comment F acility May 10, 2022 09:15 AM VA-TOBACCO QUIT 15 YRS OR MORE [facility] May 11, 2021 09:15 AM VA-TOBACCO FORMER USER [facility] May 11, 2021 09:15 AM VA-TOBACCO QUIT 15 YRS OR MORE [facility] Nov 22, 2018 01:36 PM VA-TOBACCO NEVER USED [facility] Nov 12, 2017 07:35 AM FORMER TOBACCO USER 7Y OR GREATE R [facility] Nov 06, 2016 09:05 AM FORMER TOBACCO USER 7Y OR GREATE R [facility] Sep 27, 2015 09:42 AM FORMER TOBACCO USER 7Y OR GREATE R [facility] Sep 25, 2014 07:55 AM FORMER TOBACCO USER 7Y OR GREATE R [facility] Sep 08, 2013 07:48 AM FORMER TOBACCO USER 7Y OR GREATE R [facility] July 09, 2012 09:20 AM FORMER TOBACCO USE >1Y <7Y [facility] Jun 06, 2011 07:53 AM FORMER TOBACCO USE >1Y <7Y [facility] Sep 09, 2009 03:03 PM FORMER TOBACCO USE >1Y <7Y [facility] Aug 11, 2008 01:06 PM FORMER TOBACCO USE <1Y [facility] Sep 19, 2007 02:52 PM CURRENT TOBACCO USER [facility] Sep 03, 2006 03:32 PM CURRENT TOBACCO USER [facility] Advance Directives: All historical and current [...] 07:50 AM CHEST 1 VIEW: MARYJO WAGNER [id number] -1950 M Exm Date: JULY 20, 2022@07:50 Req Phys: MACKENZIE COTTER [facility] Pat Loc: 07-20-2022@08:26 Img Loc: MAIN X-RAY Service: PRIMARY CARE - MED OFFICE (Case [id number] COMPLETE) CHEST 1 VIEW (RAD Detailed) CPT:47550 Proc Modifiers : PORTABLE EXAM Reason for Study: see below. thanks. Clinical History: IS NOT under investigation for COVID-19 or is COVID-19 negative Please further evaluate for acute airspace disease given o2 requirement. Thanks. Responsible provider name and phone number to notify for critical findings if other than user placing the order and pager listed below: User placing orders pager: [phone] same LAST CREATININE 0.9 (07/19/22) Report Status: Verified Date Reported: JULY 20, 2022 Date Verified: JULY 20, 2022 [employer] E-Sig:/ES/JAMIE MIGUEL MD Report: EXAM: CHEST 1 [...] pager listed below: User placing orders pager: [phone] same LAST CREATININE 0. COMPARISON: Chest CT [...] Primary Interpreting Staff: JAMIE MIGUEL MD, RADIOLOGIST ([employer]) /JAMIE FRANCES [facility] July 18, 2022 12:59 PM ELBOW LEFT 2 VIEWS: MARYJO WAGNER [id number] -1950 M Exm Date: JULY 18, 2022@12:59 Req Phys: LEIF BALBUENA Pat Loc: OR-PACU/07-18-2022@13:59 Img Loc: MAIN X-RAY Service: ZZSURGICAL SERVICE (Case [id number] COMPLETE) ELBOW LEFT 2 VIEWS (RAD Detailed) CPT:18562 Proc Modifiers : PORTABLE EXAM, OPERATING ROOM EXAM Reason for Study: post-op Clinical History: post-op Report Status: Verified Date Reported: JULY 18, 2022 Date Verified: JULY 18, 2022 [employer] E-Sig:/ES/JAKUB LEE MD Report: EXAM: ELBOW LEFT [...] Primary Interpreting Staff: JAKUB LEE MD, RADIOLOGIST (Private Sector Executive) /[facility] JAKUB LEE [facility] July 18, 2022 07:30 AM FLUORO UP TO 1 HR PHYSICIAN TIME: MARYJO WAGNER [id number] -1950 M Exm Date: JULY 18, 2022@07:30 Req Phys: LEIF BALBUENA Loc: OR-PACU/07-18-2022@13:14 Img Loc: MAIN X-RAY Service: PRIMARY CARE - MED OFFICE (Case [id number] COMPLETE) FLUORO UP TO 1 HR PHYSICIAN TIME (RAD Detailed) CPT:62851 Proc Modifiers : PORTABLE EXAM, OPERATING ROOM EXAM, LEFT Reason for Study: Left distal humerous ORIF Clinical History: OR 7 Pathologic distal humeral shaft fracture Responsible provider name and phone number to notify for critical findings if other than user placing the order and pager listed below: User placing orders pager: Henry BALBUENA [phone] LAST CREATININE 0.8 (07/17/22) Report Status: Electronically Filed Date Reported: JULY 18, 2022 Report: Impression: Please see the full report for this procedure in CPRS patient progress notes. Fluoro guidance was provided during this procedure, but the study was not reviewed or verified by a [facility] radiologist. The radiation exposure dose has been recorded in the patient's chart. If you are unable to view this data, please contact the Imaging Department. VERIFIED BY: / *ELECTRONICALLY FILED* [facility] July 17, 2022 03:28 PM ABDOMINAL AORTOGRAM (P): BERNARDMARYJO DIRK [id number] -1950 M Exm Date: JULY 17, 2022@15:28 Req Phys: MALCOM LANGLEY Loc: 07-17-2022@15:54 Img Loc: INTERVENTIONAL RADIOLOGY Service: PRIMARY CARE - MED OFFICE (Case [id number] COMPLETE) ANGIOGRAPHY EXTREMITY UNILAT S&I (ANI Detailed) CPT:24407 Reason for Study: codes (Case 528 COMPLETE) IR AORTOGRAPHY ABDOMINAL W/O RUNO(ANI Detailed) CPT:22685 (Case 529 COMPLETE) IR FOREIGN BODY REMOVAL INTRAVASC(ANI Detailed) CPT:80325 (Case 532 COMPLETE) IR NEEDLE/INTRACATH PLACEMENT EXT(ANI Detailed) CPT:46119 (Case 533 COMPLETE) IR PLACEMENT OCCLUSIVE DEVICE SAM(ANI Detailed) CPT:G0269 Clinical History: codes Report Status: Verified Date Reported: JULY 17, 2022 Date Verified: JULY 17, 2022 [employer] E-Sig:/ES/MALCOM LANGLEY MD Report: RADIOLOGIST: Malcom Langley [...] angiogram and runoff. 12. Closure of right LAWN MOWER OPERATOR with Angio-Seal device. HISTORY: Metastatic renal cell [...] Sheath removed over guidewire and a 5 italian vascular sheath advanced over guidewire into the artery. An H1 catheter was advanced along with the guidewire into the thoracic arch and the left subclavian artery was selected. Catheter and the guidewire were advanced into the left brachial artery. The 5 Grenadian sheath was exchanged for a 6 Grenadian sheath that was advanced into the left [...] arteries. Sheath and catheters were removed and LAWN MOWER OPERATOR arteriotomy was closed using Angioseal. There is patent hemostasis. No bleeding or hematoma noted. Sterile dressing applied. 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 Primary Interpreting Staff: MALCOM LANGLEY MD, INTERVENTIONAL RADIOLOGIST (Private Sector Executive) /MALCOM HE [facility] July 17, 2022 07:30 AM RENAL ARTERY EMBOLIZATION (P): MARYJO WAGNER [id number] -1950 M Exm Date: JULY 17, 2022@07:30 Req Phys: WESTON VASQUEZ Pat Loc: 07-17-2022@15:46 Img Loc: INTERVENTIONAL RADIOLOGY Service: PRIMARY CARE - MED OFFICE (Case [id number] COMPLETE) IR TRANSCATH EMBOLIZATION W/ANGIO(ANI Detailed) CPT:34115 Reason for Study: embolization of RCC mets to left humerus (Case 131 COMPLETE) IR ARTERIAL EMBOLIZATION OTHER TH(ANI Detailed) CPT:94332 (Case 132 COMPLETE) IR US GUIDANCE VASCULAR ACCESS (ANI Detailed) CPT:31921 Clinical History: [place] IS NOT under investigation for COVID-19 or [...] pager listed below: User placing orders pager: [phone] LAST CREATININE 1.0 (07/13/22) Report Status: Verified Date Reported: JULY 17, 2022 Date Verified: JULY 17, 2022 [employer] E-Sig:/ES/MALCOM LANGLEY MD Report: RADIOLOGIST: Malcom Langley [...] angiogram and runoff. 12. Closure of right LAWN MOWER OPERATOR with Angio-Seal device. HISTORY: Metastatic renal cell [...] Sheath removed over guidewire and a 5 italian vascular sheath advanced over guidewire into the artery. An H1 catheter was advanced along with the guidewire into the thoracic arch and the left subclavian artery was selected. Catheter and the guidewire were advanced into the left brachial artery. The 5 Grenadian sheath was exchanged for a 6 Grenadian sheath that was advanced into the left [...] slowly pulled back and a 5 mm Ivvi coil was pushed, however this resulted in [...] arteries. Sheath and catheters were removed and LAWN MOWER OPERATOR arteriotomy was closed using Angioseal. There is patent hemostasis. No bleeding or hematoma noted. Sterile dressing applied. 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 Primary Interpreting Staff: MALCOM LANGLEY MD, INTERVENTIONAL RADIOLOGIST (Private Sector Executive) /MALCOM HE [facility] July 14, 2022 06:44 AM HUMERUS LEFT MINIMUM 2 VIEWS: MARYJO WAGNER [id number] -1950 M Ex Date: JULY 14, 2022@06:44 Req Phys: PEDROHERBERTJAIRO [facility] Loc: 07-14-2022@07:13 Img Loc: MAIN X-RAY Service: PRIMARY CARE - MED OFFICE (Case [id number] COMPLETE) HUMERUS LEFT MINIMUM 2 VIEWS (RAD Detailed) CPT:45427 Reason for Study: post reduction Clinical History: Report Status: Verified Date Reported: JULY 14, 2022 Date Verified: JULY 14, 2022 [employer] Executive E-Sig: Report: HUMERUS LEFT MINIMUM 2 VIEWS [...] less likely. READING PHYSICIAN: Xavier Merrill MD -[phone] 07/14/2022 5:11 PDT [facility] National Teleradiology Program [phone] (For Medical Practitioner Use Only) Attention Patients / Veterans: If you have questions or concerns about these test results, please contact your ordering provider or primary care team. Primary Interpreting Staff: RADIOLOGY,OUTSIDE SERVICE, Staff Physician / RADIOLOGY,OUTSIDE SERVICE [facility] July 13, 2022 10:07 AM HUMERUS LEFT MINIMUM 2 VIEWS: MARYJO WAGNER [id number] -1950 M Ex Date: JULY 13, 2022@10:07 Req Phys: WHITNEY ANDERSON Pat Loc: [facility] EMERGENCY DEPT WALK-IN (Re Img Loc: MAIN X-RAY Service: Unknown (Case [id number] COMPLETE) HUMERUS LEFT MINIMUM 2 VIEWS (RAD Detailed) CPT:31704 Proc Modifiers : LEFT Reason for Study: L arm pain Clinical History: [place] IS NOT under investigation for COVID-19 or is COVID-19 negative Atraumatic left upper extremity pain that is located midshaft humerus distally to the mid forearm. Clinical concern for dislocation versus fracture versus bone mets Responsible provider name and phone number to notify for critical findings if other than user placing the order and pager listed below: User placing orders pager: [phone] LAST CREATININE 0.8 (05/10/22) Report Status: Verified Date Reported: JULY 13, 2022 Date Verified: JULY 13, 2022 [employer] E-Sig:/ES/ALBINA COWAN MD, FACR, CCD Report: EXAMINATION: [...] Staff: ALBINA COWAN MD, FACR, STAFF RADIOLOGIST (Private Sector Executive) /[facility] ALBINA COWAN [facility] July 13, 2022 10:07 AM ELBOW LEFT 3 OR MORE VIEWS: MARYJO WAGNER [id number] -1950 M Exm Date: JULY 13, 2022@10:07 Req Phys: WHITNEY ANDERSON Pat Loc: [facility] EMERGENCY DEPT WALK-IN (Re Img Loc: MAIN X-RAY Service: Unknown (Case [id number] COMPLETE) ELBOW LEFT 3 OR MORE VIEWS (RAD Detailed) CPT:32551 Proc Modifiers : LEFT Reason for Study: L arm pain Clinical History: [place] IS NOT under investigation for COVID-19 or is COVID-19 negative Atraumatic left upper extremity pain that is located midshaft humerus distally to the mid forearm. Clinical concern for dislocation versus fracture versus bone mets Responsible provider name and phone number to notify for critical findings if other than user placing the order and pager listed below: User placing orders pager: [phone] LAST CREATININE 0.8 (05/10/22) Report Status: Verified Date Reported: JULY 13, 2022 Date Verified: JULY 13, 2022 [employer] Executive E-Sig:/ES/ALBINA COWAN MD, FACR, CCD Report: EXAMINATION: [...] Staff: ALBINA COWAN MD, FACR, STAFF RADIOLOGIST (Private Sector Executive) /ALBINA NATHAN [facility] July 13, 2022 10:07 AM FOREARM LEFT 2 VIEWS: MARYJO WAGNER [id number] -1950 M Exm Date: JULY 13, 2022@10:07 Req Phys: MONICAWHITNEY MARIN Pat Loc: [facility] EMERGENCY DEPT WALK-IN (Re Img Loc: MAIN X-RAY Service: Unknown (Case [id number] COMPLETE) FOREARM LEFT 2 VIEWS (RAD Detailed) CPT:74115 Proc Modifiers : LEFT Reason for Study: L arm pain Clinical History: [place] IS NOT under investigation for COVID-19 or is COVID-19 negative Atraumatic left upper extremity pain that is located midshaft humerus distally to the mid forearm. Clinical concern for dislocation versus fracture versus bone mets Responsible provider name and phone number to notify for critical findings if other than user placing the order and pager listed below: User placing orders pager: [phone] LAST CREATININE 0.8 (05/10/22) Report Status: Verified Date Reported: JULY 13, 2022 Date Verified: JULY 13, 2022 [employer] Sector Executive E-Sig:/ES/ALBINA COWAN MD, FACR, [facility] Report: EXAMINATION: FOREARM LEFT 2 VIEWS 07/13/2022 [...] Staff: ALBINA COWAN MD, FACR, STAFF RADIOLOGIST (Private [employer] Executive) /ALBINA NATHAN [facility] Pathology Reports: +/- 30 days of [...] COSIGNER: URGENCY: STATUS: COMPLETED $APHDR Reporting Lab: [facility] [CLIA# [id number]] [place] [address] - - - - - - - [...] is entirely submitted in A-D. CE. (D). [facility] FROZEN SECTION DIAGNOSES: SPEC. 1 - [...] SANDOVAL STAFF PATHOLOGIST, PATHOLOGY & LABORATORY MED [facility] Signed July 21, 2022@14:37 Performing Laboratory: Surgical Pathology Report Performed By: [facility] [CLIA# [id number]] [place] [address] $FTR - - - - - - [...] - - MARYJO WAGNER STANDARD FORM 515 ID:[id number] SEX:M :1950 AGE: 72 LOC:[facility] PATHOLOGY PRO FEE ADM:June DX:PATHOLOGIC FX LF HUMERUS PCP: Leif Balbuena MD /sangita/ JIAN SANDOVAL STAFF PATHOLOGIST, PATHOLOGY & LABORATORY MED C Signed: 07/21/2022 14:37 IJAN SANDOVAL [facility]
--- OUTSIDE RECORDS SUMMARY | 2023-03-24 08:38 | XMS_ITS ---
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 of Vetera [facility] Address [address] [place] [address] Support Name Relationship Address Phone DOREEN WAGNER Next of Kin [address] [place] [id number] DOREEN Emergency Contact [phone] [place] [phone] Insurance Providers: All historical and current [...] Name Patient's Relationship to Policy [place] [employer] [facility] (WNR) MEDICARE ADVANTAGE [facility] (R) June 26, 2016 [id number] [phone] JOAN WAGNER KARSTEN PATIENT [employer] [facility] (WNR) MEDICARE ADVANTAGE [facility] (WNR) June 26, 2016 [id number] JOAN WAGNER KARSTEN PATIENT [employer] [facility] (WNR) MEDICARE ADVANTAGE [facility] (WNR) June 26, 2016 [id number] [phone] JOAN WAGNER PATIENT Selected Encounter This section includes the information on record at [place] for the Encounter. Date/Time Encounter Type Encounter Description Reason Pro vider Source July 18, 2022 01:12 AM Inpatient Visit DAILY HOSPITALIZATION DATA [facility] Encounter Template Text not used by [place] [...] 20 appointments. The data comes from all [facility]. Appointment Date/Time Appointment Type Appointme nt Facility Name Jul 28, 2022 10:45 AM [facility] Aug 13, 2022 06:13 PM AMBULATORY [facility] MEDICINE [facility] Aug 23, 2022 09:30 AM AMBULATORY - SURGERY [facility] Aug 23, 2022 09:45 AM AM[facility]ULATORY - NONE [facility] Aug 23, 2022 10:30 AM AMBULATORY - MEDICINE [facility] Aug 23, 2022 10:31 AM AMBULATORY - MEDICINE [facility] Sep 06, 2022 10:15 AM AMBULATORY - SURGERY [facility] Oct 25, 2022 07:00 AM [facility] Oct 25, 2022 07:30 AM AMBULATORY - [...] of theEncounter. The data comes from all [facility]. Test Date/Time Test Type Test Details Facility Name Jun 12, 2022 12:00 AM Laboratory - Chemistry Order CBC & DIFF BLOOD ONCO SP ONCE [facility] Jun 12, 2022 12:00 AM Laboratory - Chemistry Order COMPREHENSIVE METABOLIC PANEL+MG PLASMA ONCO SP [facility] Jun 12, 2022 12:00 AM Laboratory - Chemistry Order TSH W/REFLEX TO FREE T4 PLASMA ONCO SP ONCE [facility] July 14, 2022 12:00 AM Laboratory - Blood Bank Order ABO/RH - LAB BLOOD [facility] July 14, 2022 02:05 PM Laboratory - Blood Bank Order TYPE & SCREEN - LAB BLOOD [facility] Aug 07, 2022 11:23 AM Laboratory - Chemistry Order DRUG SCREEN PANEL,URINE URINE [facility] Aug 23, 2022 10:47 AM Laboratory - Chemistry Order URINALYSIS URINE ER STAT [facility] Lab Results: +/- 30 days of [...] Range Comment July 19, 2022 04:40 PM [facility] FINGERSTICK GLUCOSE Specimen Type: BLOOD Comment: Save Result Nurse Notified Ordering Provider: MACKENZIE COTTER Report Released Date/Time: July 19, 2022 05:00 PM Reporting Lab: [facility] [address] Performing Lab: [facility] [address] FINGERSTICK GLUCOSE 132 70-100 July 19, 2022 07:13 AM [facility] COMPREHENSIVE METABOLIC PANEL+MG Specimen Type: PLASMA No comment entered. Ordering Provider: MACKENZIE COTTER Report Released Date/Time: July 18, 2022 05:40 PM Reporting Lab: [facility] [address] Performing Lab: [facility] [address] CREATININE 0.9 0.7-1.2 UREA NITROGEN 24 8-26 [...] See_Commen t July 19, 2022 07:13 AM [facility] IRON GROUP Specimen Type: SERUM No comment entered. Ordering Provider: MACKENZIE COTTER Report Released Date/Time: July 18, 2022 05:40 PM Reporting Lab: [facility] [address] Performing Lab: [facility] [address] IRON 28 L 65-175 TIBC,CALCULATE D 223 L 250-425 FERRITIN 73.7 21.8-274.7 IRON SATURATION 13 L 20-50 TRANSFERRIN 178 163-382 July 19, 2022 07:13 AM [facility] CBC Specimen Type: BLOOD No comment entered. Ordering Provider: MACKENZIE COTTER Report Released Date/Time: July 18, 2022 05:40 PM Reporting Lab: [facility] [address] Performing Lab: [facility] [address] WBC 7.73 4.0-11.0 RBC 2.42 L 4.6-6.2 HGB 8.2 L 13.5-17.9 HCT 23.8 L 41-54 MCV 98.3 80-100 MCH 33.9 H 27-33 MCHC 34.5 32.0-37.5 PLT 155 150-400 MPV 9.6 7.4-10.4 RDW 13.5 11.5-14.5 July 19, 2022 05:44 AM [facility] FINGERSTICK GLUCOSE Specimen Type: BLOOD Comment: Save Result Nurse Notified Ordering Provider: MACKENZIE COTTER Report Released Date/Time: July 19, 2022 11:54 AM Reporting Lab: [facility] [address] Performing Lab: [facility] [address] FINGERSTICK GLUCOSE 137 70-100 July 18, 2022 10:51 PM [facility] FINGERSTICK GLUCOSE Specimen Type: BLOOD Comment: Save Result Nurse Notified Ordering Provider: MACKENZIE COTTER Report Released Date/Time: July 18, 2022 11:06 PM Reporting Lab: [facility] [address] Performing Lab: [facility] [address] FINGERSTICK GLUCOSE 163 70-100 July 17, 2022 06:51 AM [facility] BASIC METABOLIC PANEL+MG Specimen Type: PLASMA No comment entered. Ordering Provider: DANG VALLE Report Released Date/Time: July 16, 2022 09:37 AM Reporting Lab: [facility] [address] Performing Lab: [facility] [address] CREATININE 0.8 0.7-1.2 UREA NITROGEN 23 8-26 GLUCOSE 107 H 70-100 SODIUM 139 136-145 POTASSIUM 3.9 3.5-5.1 CHLORIDE 106 98-107 CO2 28 22-29 CALCIUM 9.1 8.4-10.2 MAGNESIUM 1.9 1.6-2.6 ANION GAP 5 5-15 .CREAT EGFR(CKD-EPI) >90 See_Commen t July 17, 2022 06:51 AM [facility] PROTHROMBIN TIME/INR Specimen Type: PLASMA No comment entered. Ordering Provider: DANG VALLE R Report Released Date/Time: July 16, 2022 09:37 AM Reporting Lab: [facility] [address] Performing Lab: [facility] [address] .INR 1.0 0.8-1.1 .PT 11.5 9.4-12.5 July 17, 2022 06:51 AM [facility] CBC Specimen Type: BLOOD No comment entered. Ordering Provider: DANG VALLE R Report Released Date/Time: July 16, 2022 09:37 AM Reporting Lab: [facility] [address] Performing Lab: [facility] [address] WBC 6.05 4.0-11.0 RBC 3.77 L 4.6-6.2 HGB 12.7 L 13.5-17.9 HCT 36.0 L 41-54 MCV 95.5 80-100 MCH 33.7 H 27-33 MCHC 35.3 32.0-37.5 PLT 179 150-400 MPV 9.4 7.4-10.4 RDW 13.2 11.5-14.5 July 13, 2022 11:22 AM [facility] COVID-19 AND FLU/RSV DIAG PANEL(CEPHEID) Specimen Typ e: NASOPHARYNGEAL Comment: Cepheid GeneXpert (618) Ordering Provider: WHITNEY ANDERSON Report Released Date/Time: July 13, 2022 11:04 AM Reporting Lab: [facility] [address] Performing Lab: [facility] [address] COVID-19 (CEPHEID) Not Detected Not Detected INFLUENZA A (PCR) Not Detected Not Detected INFLUENZA B (PCR) Not Detected Not Detected RSV (PCR) Not Detected Not Detected July 13, 2022 11:00 AM [facility] PROTHROMBIN TIME/INR Specimen Type: PLASMA No comment entered. Ordering Provider: WHITNEY ANDERSON Report Released Date/Time: July 13, 2022 11:04 AM Reporting Lab: [facility] [address] Performing Lab: [facility] [address] .INR 0.9 0.8-1.1 .PT 11.1 9.4-12.5 July 13, 2022 11:00 AM [facility] C-REACTIVE PROTEIN Specimen Type: SERUM Comment: Automated Differential Performed Ordering Provider: WHITNEY ANDERSON Report Released Date/Time: July 13, 2022 11:04 AM Reporting Lab: [facility] [address] Performing Lab: [facility] [address] C-REACTIVE PROTEIN 1.17 <5.00 July 13, 2022 11:00 AM [facility] SED RATE Specimen Type: BLOOD No comment entered. Ordering Provider: WHITNEY ANDERSON Report Released Date/Time: July 13, 2022 11:04 AM Reporting Lab: [facility] [address] Performing Lab: [facility] [address] SED RATE 10 5-15 July 13, 2022 11:00 AM [facility] CBC & DIFF Specimen Type: BLOOD Comment: Automated Differential Performed Ordering Provider: WHITNEY ANDERSON Report Released Date/Time: July 13, 2022 11:04 AM Reporting Lab: [facility] [address] Performing Lab: [facility] [address] WBC 8.82 4.0-11.0 RBC 3.89 L 4.6-6.2 [...] 0.03 0-0.1 July 13, 2022 11:00 AM [facility] COMPREHENSIVE METABOLIC PANEL+MG Specimen Type: PLASMA Comment: Automated Differential Performed Ordering Provider: WHITNEY ANDERSON Report Released Date/Time: July 13, 2022 11:04 AM Reporting Lab: [facility] [address] Performing Lab: [facility] [address] CREATININE 1.0 0.7-1.2 UREA NITROGEN 16 8-26 [...] Height Weight Body Mass Index Source July 18, 2022 11:14 PM 9 [facility] July 18, 2022 11:14 PM 9 [facility] July 18, 2022 10:53 PM 98.6 F 68 /min 114/73 mm[Hg] 18 /min 95 % 8 [facility] July 18, 2022 09:30 PM 8 [facility] July 18, 2022 08:59 PM 9 [facility] Social History: Smoking Status (Most current) [...] 10, 2022 09:15 AM VA-TOBACCO FORMER USER [facility] Tobacco Use History This section includes a history of the smoking, or tobacco-related health factors, that were collected on or before the date of the Encounter. The data comes from the [place] facility where the Encounter took place. Date/Time Smoking Status/Tobacco Use Comment F acility May 10, 2022 09:15 AM VA-TOBACCO QUIT 15 YRS OR MORE [facility] May 11, 2021 09:15 AM VA-TOBACCO FORMER USER [facility] May 11, 2021 09:15 AM VA-TOBACCO QUIT 15 YRS OR MORE [facility] Nov 22, 2018 01:36 PM VA-TOBACCO NEVER USED [facility] Nov 12, 2017 07:35 AM FORMER TOBACCO USER 7Y OR GREATE R [facility] Nov 06, 2016 09:05 AM FORMER TOBACCO USER 7Y OR GREATE R [facility] Sep 27, 2015 09:42 AM FORMER TOBACCO USER 7Y OR GREATE R [facility] Sep 25, 2014 07:55 AM FORMER TOBACCO USER 7Y OR GREATE R [facility] Sep 08, 2013 07:48 AM FORMER TOBACCO USER 7Y OR GREATE R [facility] July 09, 2012 09:20 AM FORMER TOBACCO USE >1Y <7Y [facility] Jun 06, 2011 07:53 AM FORMER TOBACCO USE >1Y <7Y [facility] Sep 09, 2009 03:03 PM FORMER TOBACCO USE >1Y <7Y [facility] Aug 11, 2008 01:06 PM FORMER TOBACCO USE <1Y [facility] Sep 19, 2007 02:52 PM CURRENT TOBACCO USER [facility] Sep 03, 2006 03:32 PM CURRENT TOBACCO USER [facility] Advance Directives: All historical and current [...] 07:50 AM CHEST 1 VIEW: MARYJO WAGNER [id number] -1950 M Exm Date: JULY 20, 2022@07:50 Req Phys: MACKENZIE COTTER [facility] Loc: 07-20-2022@08:26 Img Loc: MAIN X-RAY Service: PRIMARY CARE - MED OFFICE (Case [id number] COMPLETE) CHEST 1 VIEW (RAD Detailed) CPT:04956 Proc Modifiers : PORTABLE EXAM Reason for Study: see below. thanks. Clinical History: IS NOT under investigation for COVID-19 or is COVID-19 negative Please further evaluate for acute airspace disease given o2 requirement. Thanks. Responsible provider name and phone number to notify for critical findings if other than user placing the order and pager listed below: User placing orders pager: [phone] same LAST CREATININE 0.9 (07/19/22) Report Status: Verified Date Reported: JULY 20, 2022 Date Verified: JULY 20, 2022 Accounting Manager E-Sig:/ES/JAMIE MIGUEL MD Report: EXAM: CHEST 1 [...] pager listed below: User placing orders pager: [phone] same LAST CREATININE 0. COMPARISON: Chest CT [...] Primary Interpreting Staff: JAMIE MIGUEL MD, RADIOLOGIST (Accounting Manager) /JAMIE FRANCES [facility] July 18, 2022 12:59 PM ELBOW LEFT 2 VIEWS: MARYJO WAGNER [id number] -1950 M Exm Date: JULY 18, 2022@12:59 Req Phys: LEIF BALBUENA Pat Loc: OR-PACU/07-18-2022@13:59 Img Loc: MAIN X-RAY Service: ZZSURGICAL SERVICE (Case [id number] COMPLETE) ELBOW LEFT 2 VIEWS (RAD Detailed) CPT:26025 Proc Modifiers : PORTABLE EXAM, OPERATING ROOM EXAM Reason for Study: post-op Clinical History: post-op Report Status: Verified Date Reported: JULY 18, 2022 Date Verified: JULY 18, 2022 Accounting Manager E-Sig:/ES/JAKUB LEE MD Report: EXAM: ELBOW LEFT [...] Primary Interpreting Staff: JAKUB LEE MD, RADIOLOGIST (Accounting Manager) /[facility] JAKUB LEE [facility] July 18, 2022 07:30 AM FLUORO UP TO 1 HR PHYSICIAN TIME: MARYJO WAGNER [id number] -1950 M Exm Date: JULY 18, 2022@07:30 Req Phys: LEIF BALBUENA Loc: OR-PACU/07-18-2022@13:14 Img Loc: MAIN X-RAY Service: PRIMARY CARE - MED OFFICE (Case [id number] COMPLETE) FLUORO UP TO 1 HR PHYSICIAN TIME (RAD Detailed) CPT:93262 Proc Modifiers : PORTABLE EXAM, OPERATING ROOM EXAM, LEFT Reason for Study: Left distal humerous ORIF Clinical History: OR 7 Pathologic distal humeral shaft fracture Responsible provider name and phone number to notify for critical findings if other than user placing the order and pager listed below: User placing orders pager: Henry BALBUENA [phone] LAST CREATININE 0.8 (07/17/22) Report Status: Electronically Filed Date Reported: JULY 18, 2022 Report: Impression: Please see the full report for this procedure in CPRS patient progress notes. Fluoro guidance was provided during this procedure, but the study was not reviewed or verified by a [facility] radiologist. The radiation exposure dose has been recorded in the patient's chart. If you are unable to view this data, please contact the Imaging Department. VERIFIED BY: / *ELECTRONICALLY FILED* [facility] July 17, 2022 03:28 PM ABDOMINAL AORTOGRAM (P): BERNARDMARYJO DIRK [id number] -1950 M Exm Date: JULY 17, 2022@15:28 Req Phys: MALCOM LANGLEY Loc: 07-17-2022@15:54 Img Loc: INTERVENTIONAL RADIOLOGY Service: PRIMARY CARE - MED OFFICE (Case [id number] COMPLETE) ANGIOGRAPHY EXTREMITY UNILAT S&I (ANI Detailed) CPT:67770 Reason for Study: codes (Case 528 COMPLETE) IR AORTOGRAPHY ABDOMINAL W/O RUNO(ANI Detailed) CPT:80592 (Case 529 COMPLETE) IR FOREIGN BODY REMOVAL INTRAVASC(ANI Detailed) CPT:14419 (Case 532 COMPLETE) IR NEEDLE/INTRACATH PLACEMENT EXT(ANI Detailed) CPT:42124 (Case 533 COMPLETE) IR PLACEMENT OCCLUSIVE DEVICE SAM(ANI Detailed) CPT:G0269 Clinical History: codes Report Status: Verified Date Reported: JULY 17, 2022 Date Verified: JULY 17, 2022 Accounting Manager E-Sig:/ES/MALCOM LANGLEY MD Report: RADIOLOGIST: Malcom Langley [...] angiogram and runoff. 12. 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 HISTORY: Metastatic renal cell [...] Sheath removed over guidewire and a 5 yakut vascular sheath advanced over guidewire into the artery. An H1 catheter was advanced along with the guidewire into the thoracic arch and the left subclavian artery was selected. Catheter and the guidewire were advanced into the left brachial artery. The 5 Guamanian sheath was exchanged for a 6 Guamanian sheath that was advanced into the left [...] arteries. Sheath and catheters were removed and COUNTY REC[employer]DS MANAGEMENT OFFICER arteriotomy was closed using Angioseal. There is patent hemostasis. No bleeding or hematoma noted. Sterile dressing applied. 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 Primary Interpreting Staff: MALCOM LANGLEY MD, INTERVENTIONAL RADIOLOGIST (Accounting Manager) /MALCOM HE [facility] July 17, 2022 07:30 AM RENAL ARTERY EMBOLIZATION (P): MARYJO WAGNER [id number] -1950 M Exm Date: JULY 17, 2022@07:30 Req Phys: WESTON VASQUEZ Pat Loc: 07-17-2022@15:46 Img Loc: INTERVENTIONAL RADIOLOGY Service: PRIMARY CARE - MED OFFICE (Case [id number] COMPLETE) IR TRANSCATH EMBOLIZATION W/ANGIO(ANI Detailed) CPT:49822 Reason for Study: embolization of RCC mets to left humerus (Case 131 COMPLETE) IR ARTERIAL EMBOLIZATION OTHER TH(ANI Detailed) CPT:32548 (Case 132 COMPLETE) IR US GUIDANCE VASCULAR ACCESS (ANI Detailed) CPT:06878 Clinical History: [place] IS NOT under investigation for COVID-19 or [...] pager listed below: User placing orders pager: [phone] LAST CREATININE 1.0 (07/13/22) Report Status: Verified Date Reported: JULY 17, 2022 Date Verified: JULY 17, 2022 Accounting Manager E-Sig:/ES/MALCOM LANGLEY MD Report: RADIOLOGIST: Malcom Langley [...] angiogram and runoff. 12. 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 HISTORY: Metastatic renal cell [...] Sheath removed over guidewire and a 5 yakut vascular sheath advanced over guidewire into the artery. An H1 catheter was advanced along with the guidewire into the thoracic arch and the left subclavian artery was selected. Catheter and the guidewire were advanced into the left brachial artery. The 5 Guamanian sheath was exchanged for a 6 Guamanian sheath that was advanced into the left [...] arteries. Sheath and catheters were removed and COUNTY [employer] MANAGEMENT OFFICER arteriotomy was closed using Angioseal. There is patent hemostasis. No bleeding or hematoma noted. Sterile dressing applied. 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 Primary Interpreting Staff: MALCOM LANGLEY MD, INTERVENTIONAL RADIOLOGIST (Accounting Manager) /MALCOM HE [facility] July 14, 2022 06:44 AM HUMERUS LEFT MINIMUM 2 VIEWS: MARYJO WAGNER [id number] -1950 M Ex Date: JULY 14, 2022@06:44 Req Phys: PEDROHERBERTJAIRO [facility] Loc: 07-14-2022@07:13 Img Loc: MAIN X-RAY Service: PRIMARY CARE - MED OFFICE (Case [id number] COMPLETE) HUMERUS LEFT MINIMUM 2 VIEWS (RAD Detailed) CPT:09375 Reason for Study: post reduction Clinical History: Report Status: Verified Date Reported: JULY 14, 2022 Date Verified: JULY 14, 2022 Accounting Manager E-Sig: Report: HUMERUS LEFT MINIMUM 2 VIEWS HISTORY: post reduction COMPARISON: 07/13/2022 TECHNIQUE: 2 view(s) of the humerus, submitted to the [place] National Teleradiology Program (NTP) for interpretation. FINDINGS: [...] less likely. READING PHYSICIAN: Xavier Merrill MD -[id number] 07/14/2022 5:11 PDT [facility] National Teleradiology Program [phone] (For Medical Practitioner Use Only) Attention Patients / Veterans: If you have questions or concerns about these test results, please contact your ordering provider or primary care team. Primary Interpreting Staff: RADIOLOGY,OUTSIDE SERVICE, Staff Physician / RADIOLOGY,OUTSIDE SERVICE [facility] July 13, 2022 10:07 AM HUMERUS LEFT MINIMUM 2 VIEWS: MARYJO WAGNER [id number] -1950 M Ex Date: JULY 13, 2022@10:07 Req Phys: WHITNEY ANDERSON Pat Loc: [facility] EMERGENCY DEPT WALK-IN (Re Img Loc: MAIN X-RAY Service: Unknown (Case [id number] COMPLETE) HUMERUS LEFT MINIMUM 2 VIEWS (RAD Detailed) CPT:14918 Proc Modifiers : LEFT Reason for Study: L arm pain Clinical History: [place] IS NOT under investigation for COVID-19 or is COVID-19 negative Atraumatic left upper extremity pain that is located midshaft humerus distally to the mid forearm. Clinical concern for dislocation versus fracture versus bone mets Responsible provider name and phone number to notify for critical findings if other than user placing the order and pager listed below: User placing orders pager: [phone] LAST CREATININE 0.8 (05/10/22) Report Status: Verified Date Reported: JULY 13, 2022 Date Verified: JULY 13, 2022 Accounting Manager E-Sig:/ES/ALBINA COWAN MD, FACR, CCD Report: EXAMINATION: [...] Staff: ALBINA COWAN MD, FACR, STAFF RADIOLOGIST (Accounting Manager) /[facility] ALBINA COWAN [facility] July 13, 2022 10:07 AM ELBOW LEFT 3 OR MORE VIEWS: MARYJO WAGNER [id number] -1950 M Exm Date: JULY 13, 2022@10:07 Req Phys: WHITNEY ANDERSON Pat Loc: [facility] EMERGENCY DEPT WALK-IN (Re Img Loc: MAIN X-RAY Service: Unknown (Case [id number] COMPLETE) ELBOW LEFT 3 OR MORE VIEWS (RAD Detailed) CPT:87950 Proc Modifiers : LEFT Reason for Study: L arm pain Clinical History: [place] IS NOT under investigation for COVID-19 or is COVID-19 negative Atraumatic left upper extremity pain that is located midshaft humerus distally to the mid forearm. Clinical concern for dislocation versus fracture versus bone mets Responsible provider name and phone number to notify for critical findings if other than user placing the order and pager listed below: User placing orders pager: [phone] LAST CREATININE 0.8 (05/10/22) Report Status: Verified Date Reported: JULY 13, 2022 Date Verified: JULY 13, 2022 Accounting Manager E-Sig:/ES/ALBINA COWAN MD, FACR, CCD Report: EXAMINATION: [...] Staff: ALBINA COWAN MD, FACR, STAFF RADIOLOGIST (Accounting Manager) /ALBINA NATHAN [facility] July 13, 2022 10:07 AM FOREARM LEFT 2 VIEWS: MARYJO WAGNER [id number] -1950 M Exm Date: JULY 13, 2022@10:07 Req Phys: MONICAWHITNEY MARIN Pat Loc: [facility] EMERGENCY DEPT WALK-IN (Re Img Loc: MAIN X-RAY Service: Unknown (Case [id number] COMPLETE) FOREARM LEFT 2 VIEWS (RAD Detailed) CPT:51326 Proc Modifiers : LEFT Reason for Study: L arm pain Clinical History: [place] IS NOT under investigation for COVID-19 or is COVID-19 negative Atraumatic left upper extremity pain that is located midshaft humerus distally to the mid forearm. Clinical concern for dislocation versus fracture versus bone mets Responsible provider name and phone number to notify for critical findings if other than user placing the order and pager listed below: User placing orders pager: [phone] LAST CREATININE 0.8 (05/10/22) Report Status: Verified Date Reported: JULY 13, 2022 Date Verified: JULY 13, 2022 Accounting Manager E-Sig:/ES/ALBINA COWAN MD, FACR, [facility] [...] Staff: ALBINA COWAN MD, FACR, STAFF RADIOLOGIST (Accounting Manager) /ALBINA NATHAN [facility] Pathology Reports: +/- 30 days of [...] comes from all [place] treatment facilities. Date/Time Pathology Report Provider Source July 13, 2022 04:06 PM LR SURGICAL PATHOL OGY REPORT: LOCAL TITLE: LR SURGICAL PATHOLOGY REPORT STANDARD TITLE: PATHOLOGY REPORT DATE OF NOTE: JULY 21, 2022@14:37:27 ENTRY DATE: JULY 21, 2022@14:37:27 AUTHOR: JIAN SANDOVAL EXP COSIGNER: URGENCY: STATUS: COMPLETED $APHDR Reporting Lab: [facility] [CLIA# [id number]] [place] [address] - - - - - - - [...] is entirely submitted in A-D. CE. (D). [facility] FROZEN SECTION DIAGNOSES: SPEC. 1 - [...] SANDOVAL STAFF PATHOLOGIST, PATHOLOGY & LABORATORY MED [facility] Signed July 21, 2022@14:37 Performing Laboratory: Surgical Pathology Report Performed By: [facility] [CLIA# [id number]] [place] [address] $FTR - - - - - - [...] - - MARYJO WAGNER STANDARD FORM 515 ID:[id number] SEX:M :1950 AGE: 72 LOC:[facility] PATHOLOGY PRO FEE ADM:June DX:PATHOLOGIC FX LF HUMERUS PCP: Leif Balbuena MD /sangita/ JIAN SANDOVAL STAFF PATHOLOGIST, PATHOLOGY & LABORATORY MED C Signed: 07/21/2022 14:37 JIAN SANDOVAL [facility]
--- OUTSIDE RECORDS SUMMARY | 2023-03-24 08:38 | XMS_ITS ---
DAILY HOSPITALIZATION DATA [facility] Encounter Summary Created on: March 24, 2023 MARYJO WAGNER : 1950 Sex: Male 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 Address [address] [place] [address] Support Name Relationship Address Phone DOREEN WAGNER Next of Kin [phone] [place] [phone] DOREEN Emergency Contact [address] [place] [phone] Insurance Providers: All historical and current [...] [facility] (WNR) June 26, 2016 [id number] JOAN WAGNER PATIENT [employer] (WNR) MEDICARE ADVANTAGE [facility] (WNR) June 26, 2016 [id number] [phone] CARSONJOAN ROWELL PATIENT [employer] (WNR) MEDICARE ADVANTAGE [facility] (WNR) June 26, 2016 [id number] JOAN WAGNER KARSTEN PATIENT Selected Encounter This section includes the information on record at [place] for the Encounter. Date/Time Encounter Type Encounter Description Reason Pro vider Source July 18, 2022 07:16 AM Inpatient Visit DAILY HOSPITALIZATION DATA [facility] Encounter Template Text not used by MA Plan of Treatment: Future Appointments (+ 6 [...] The data comes from all [facility] [address]. Appointment Date/Time Appointment Type Appointme nt Facility Name Jul 28, 2022 10:45 AM [facility] Aug 13, 2022 06:13 PM AMBULATORY - MED[facility] Aug 23, 2022 09:30 AM AMBULATORY - SURGERY [facility] Aug 23, 2022 09:45 AM [facility] Aug 23, 2022 10:30 AM AMBULATORY - MEDICINE [facility] Aug 23, 2022 10:31 AM AMBULATORY - MEDICINE [facility] Sep 06, 2022 10:15 AM AMBULATORY - SURGERY [facility] Oct 25, 2022 07:00 AM [facility] Oct 25, 2022 07:30 AM AMBULATORY - SURGERY [facility] Oct 25, 2022 09:00 AM AMBULATORY - SURGERY [facility] Active, Pending, and Scheduled Orders [...] The data comes from all [facility] [address]. Test Date/Time Test Type Test Details Facility Name Jun 12, 2022 12:00 AM Laboratory - Chemistry Order CBC & DIFF BLOOD ONCO SP ONCE [facility] Jun 12, 2022 12:00 AM Laboratory - Chemistry Order COMPREHENSIVE METABOLIC PANEL+MG PLASMA ONCO SP [facility] Jun 12, 2022 12:00 AM Laboratory - Chemistry Order TSH W/REFLEX TO FREE T4 PLASMA ONCO SP ONCE [facility] July 14, 2022 12:00 AM Laboratory - Blood Bank Order ABO/RH - LAB BLOOD [facility] July 14, 2022 02:05 PM Laboratory - Blood Bank Order TYPE & SCREEN - LAB BLOOD [facility] Aug 07, 2022 11:23 AM Laboratory - Chemistry Order DRUG SCREEN PANEL,URINE URINE [facility] Aug 23, 2022 10:47 AM Laboratory - Chemistry Order URINALYSIS URINE ER STAT [facility] Lab Results: +/- 30 days of the encounter This section includes the Chemistry and Hematology Lab Results on record with MA for the patient. Radiology Reports and Pathology Reports are provided separately, in subsequent sections. Lab Results This section contains the Chemistry/Hematology Results that were resulted 30 days before or 30 daysafter the date of the Encounter. Date/Time Source Result Type Result - Unit Interpretation Reference Range Comment July 19, 2022 04:[address] [facility] FINGERSTICK GLUCOSE Specimen Type: BLOOD Comment: Save Result Nurse Notified Ordering Provider: MACKENZIE COTTER Report Released Date/Time: July 19, 2022 05:00 PM Reporting Lab: [facility] [address] Performing Lab: [facility] [address] FINGERSTICK GLUCOSE 132 70-100 July 19, 2022 07:[address] [facility] COMPREHENSIVE METABOLIC PANEL+MG Specimen Type: PLASMA No comment entered. Ordering Provider: MACKENZIE COTTER Report Released Date/Time: July 18, 2022 05:40 PM Reporting Lab: [facility] [place] [address] Performing Lab: [facility] [address] CREATININE 0.9 0.7-1.2 UREA NITROGEN 24 8-26 [...] See_Commen t July 19, 2022 07:[address] [facility] IRON GROUP Specimen Type: SERUM No comment entered. Ordering Provider: MACKENZIE COTTER Report Released Date/Time: July 18, 2022 05:40 PM Reporting Lab: [facility] [place] [address] Performing Lab: [facility] [address] IRON 28 L 65-175 TIBC,CALCULATE D 223 L 250-425 FERRITIN 73.7 21.8-274.7 IRON SATURATION 13 L 20-50 TRANSFERRIN 178 163-382 July 19, 2022 07:[address] [facility] CBC Specimen Type: BLOOD No comment entered. Ordering Provider: MACKENZIE COTTER Report Released Date/Time: July 18, 2022 05:40 PM Reporting Lab: [facility] [place] [address] Performing Lab: [facility] [address] WBC 7.73 4.0-11.0 RBC 2.42 L 4.6-6.2 HGB 8.2 L 13.5-17.9 HCT 23.8 L 41-54 MCV 98.3 80-100 MCH 33.9 H 27-33 MCHC 34.5 32.0-37.5 PLT 155 150-400 MPV 9.6 7.4-10.4 RDW 13.5 11.5-14.5 July 19, 2022 05:[address] [facility] FINGERSTICK GLUCOSE Specimen Type: BLOOD Comment: Save Result Nurse Notified Ordering Provider: MACKENZIE COTTER Report Released Date/Time: July 19, 2022 11:54 AM Reporting Lab: [facility] [place] [address] Performing Lab: [facility] [address] FINGERSTICK GLUCOSE 137 70-100 July 18, 2022 10:[address] [facility] FINGERSTICK GLUCOSE Specimen Type: BLOOD Comment: Save Result Nurse Notified Ordering Provider: MACKENZIE COTTER Report Released Date/Time: July 18, 2022 11:06 PM Reporting Lab: [facility] [place] [address] Performing Lab: [facility] [place] [address] FINGERSTICK GLUCOSE 163 70-100 July 17, 2022 06:[address] [facility] BASIC METABOLIC PANEL+MG Specimen Type: PLASMA No comment entered. Ordering Provider: DANG VALLE Report Released Date/Time: July 16, 2022 09:37 AM Reporting Lab: [facility] [place] [address] Performing Lab: [facility] [place] [address] CREATININE 0.8 0.7-1.2 UREA NITROGEN 23 8-26 GLUCOSE 107 H 70-100 SODIUM 139 136-145 POTASSIUM 3.9 3.5-5.1 CHLORIDE 106 98-107 CO2 28 22-29 CALCIUM 9.1 8.4-10.2 MAGNESIUM 1.9 1.6-2.6 ANION GAP 5 5-15 .CREAT EGFR(CKD-EPI) >90 See_Commen t July 17, 2022 06:[address] [facility] PROTHROMBIN TIME/INR Specimen Type: PLASMA No comment entered. Ordering Provider: DANG VALLE R Report Released Date/Time: July 16, 2022 09:37 AM Reporting Lab: [facility] [place] [address] Performing Lab: [facility] [place] [address] .INR 1.0 0.8-1.1 .PT 11.5 9.4-12.5 July 17, 2022 06:[address] [facility] CBC Specimen Type: BLOOD No comment entered. Ordering Provider: DANG VALLE R Report Released Date/Time: July 16, 2022 09:37 AM Reporting Lab: [facility] [place] [address] Performing Lab: [facility] [place] [address] WBC 6.05 4.0-11.0 RBC 3.77 L 4.6-6.2 HGB 12.7 L 13.5-17.9 HCT 36.0 L 41-54 MCV 95.5 80-100 MCH 33.7 H 27-33 MCHC 35.3 32.0-37.5 PLT 179 150-400 MPV 9.4 7.4-10.4 RDW 13.2 11.5-14.5 July 13, 2022 11:[address] [facility] COVID-19 AND FLU/RSV DIAG PANEL(CEPHEID) Specimen Typ e: NASOPHARYNGEAL Comment: Cepheid GeneXpert (618) Ordering Provider: WHITNEY ANDERSON Report Released Date/Time: July 13, 2022 11:04 AM Reporting Lab: [facility] [place] [address] Performing Lab: [facility] [place] [address] COVID-19 (CEPHEID) Not Detected Not Detected INFLUENZA A (PCR) Not Detected Not Detected INFLUENZA B (PCR) Not Detected Not Detected RSV (PCR) Not Detected Not Detected July 13, 2022 11:[address] [facility] C-REACTIVE PROTEIN Specimen Type: SERUM Comment: Automated Differential Performed Ordering Provider: WHITNEY ANDERSON Report Released Date/Time: July 13, 2022 11:04 AM Reporting Lab: [facility] [place] [address] Performing Lab: [facility] [place] [address] C-REACTIVE PROTEIN 1.17 <5.00 July 13, 2022 11:[address] [facility] PROTHROMBIN TIME/INR Specimen Type: PLASMA No comment entered. Ordering Provider: WHITNEY ANDERSON Report Released Date/Time: July 13, 2022 11:04 AM Reporting Lab: [facility] [place] [address] Performing Lab: [facility] [place] [address] .INR 0.9 0.8-1.1 .PT 11.1 9.4-12.5 July 13, 2022 11:[address] [facility] SED RATE Specimen Type: BLOOD No comment entered. Ordering Provider: WHITNEY ANEDRSON Report Released Date/Time: July 13, 2022 11:04 AM Reporting Lab: [facility] [place] [address] Performing Lab: [facility] [place] [address] SED RATE 10 5-15 July 13, 2022 11:[address] [facility] CBC & DIFF Specimen Type: BLOOD Comment: Automated Differential Performed Ordering Provider: WHITNEY ANDERSON Report Released Date/Time: July 13, 2022 11:04 AM Reporting Lab: [facility] [place] [address] Performing Lab: [facility] [place] [address] WBC 8.82 4.0-11.0 RBC 3.89 L 4.6-6.2 [...] 0.03 0-0.1 July 13, 2022 11:[address] [facility] COMPREHENSIVE METABOLIC PANEL+MG Specimen Type: PLASMA Comment: Automated Differential Performed Ordering Provider: WHITNEY ANDERSON Report Released Date/Time: July 13, 2022 11:04 AM Reporting Lab: [facility] [place] [address] Performing Lab: [facility] [address] CREATININE 1.0 0.7-1.2 UREA NITROGEN 16 8-26 [...] Source July 18, 2022 11:14 PM 9 [facility] July 18, 2022 11:14 PM 9 [facility] July 18, 2022 10:53 PM 98.6 F 68 /min 114/73 mm[Hg] 18 /min 95 % 8 [facility] July 18, 2022 09:30 PM 8 [facility] July 18, 2022 08:59 PM 9 [facility] Social History: Smoking Status (Most current) and Tobacco Use (All prior to encounter date) This section includes the most current, and the historical, smoking and tobacco- related health factors from the [place] facility where the Encounter took place. Current Smoking Status This section includes the most current smoking, or tobacco-related health factor, from the [place] facility where the Encounter took place. Date/Time Current Smoking Status Comment Facil ity May 10, 2022 09:15 AM VA-TOBACCO FORMER USER [facility] Tobacco Use History This section includes a history of the smoking, or tobacco-related health factors, that were collected on or before the date of the Encounter. The data comes from the [place] facility where the Encounter took place. Date/Time Smoking Status/Tobacco Use Comment F acility May 10, 2022 09:15 AM VA-TOBACCO QUIT [address] [facility] May 11, 2021 09:15 AM VA-TOBACCO FORMER USER [facility] May 11, 2021 09:15 AM VA-TOBACCO QUIT [address] [facility] Nov 22, 2018 01:36 PM VA-TOBACCO NEVER USED [facility] Nov 12, 2017 07:35 AM FORMER TOBACCO USER 7Y OR GREATE R [facility] Nov 06, 2016 09:05 AM FORMER TOBACCO USER 7Y OR GREATE R [facility] Sep 27, 2015 09:42 AM FORMER TOBACCO USER 7Y OR GREATE R [facility] Sep 25, 2014 07:55 AM FORMER TOBACCO USER 7Y OR GREATE R [facility] Sep 08, 2013 07:48 AM FORMER TOBACCO USER 7Y OR GREATE R [facility] July 09, 2012 09:20 AM FORMER TOBACCO USE >1Y <7Y [facility] Jun 06, 2011 07:53 AM FORMER TOBACCO USE >1Y <7Y [facility] Sep 09, 2009 03:03 PM FORMER TOBACCO USE >1Y <7Y [facility] Aug 11, 2008 01:06 PM FORMER TOBACCO USE <1Y [facility] Sep 19, 2007 02:52 [address]BACCO USER [facility] Sep 03, 2006 03:32 PM [address] TOBACCO USER [facility] Advance Directives: All historical and current Section Date Range: From patient's date of to the date document was created. This section includes ALL of a patient's completed or amended [place] Advance and Rescinded Directives. The entries below indicate that a directive exists for the patient, but an actual copy is not included with this document. The data comes from all [facility]. Date Advance Directives Provider Source Mar 18, 2003 ADVANCE DIRECTIVE FARHAT MELGAR [facility] Radiology Reports: +/- 30 days of [...] the Encounter. The data comes from all [place] treatment facilities. Date/Time Radiology Report Provider Source July 20, 2022 07:50 AM CHEST 1 VIEW: MARYJO WAGNER [id number] -1950 M Exm Date: JULY 20, 2022@07:50 Req Phys: MACKENZIE COTTER Darwin Pat Loc: 07-20-2022@08:26 Img Loc: MAIN X-RAY Service: PRIMARY CARE - MED OFFICE (Case [id number] COMPLETE) CHEST 1 VIEW (RAD Detailed) CPT:31659 Proc Modifiers : PORTABLE EXAM Reason for Study: see below. thanks. Clinical History: IS NOT under investigation for COVID-19 or is COVID-19 negative Please further evaluate for acute airspace disease given o2 requirement. Thanks. Responsible provider name and phone number to notify for critical findings if other than user placing the order and pager listed below: User placing orders pager: [phone] same LAST CREATININE 0.9 (07/19/22) Report Status: Verified Date Reported: JULY 20, 2022 Date Verified: JULY 20, 2022 Environmental Economist E-Sig:/ES/JAMIE MIGUEL MD Report: EXAM: CHEST 1 [...] pager listed below: User placing orders pager: [phone] same LAST CREATININE 0. COMPARISON: Chest CT [...] Primary Interpreting Staff: JAMIE MIGUEL MD, RADIOLOGIST (Environmental Economist) /JAMIE [facility] July 18, 2022 12:59 PM ELBOW LEFT 2 VIEWS: MARYJO WAGNER [id number] -1950 M Exm Date: JULY 18, 2022@12:59 Req Phys: LEIF BALBUENA Pat Loc: OR-PACU/07-18-2022@13:59 Img Loc: MAIN X-RAY Service: ZZSURGICAL SERVICE (Case [id number] COMPLETE) ELBOW LEFT 2 VIEWS (RAD Detailed) CPT:10899 Proc Modifiers : PORTABLE EXAM, OPERATING ROOM EXAM Reason for Study: post-op Clinical History: post-op Report Status: Verified Date Reported: JULY 18, 2022 Date Verified: JULY 18, 2022 Environmental Economist E-Sig:/ES/JAKUB LEE MD Report: EXAM: ELBOW LEFT [...] Primary Interpreting Staff: JAKUB LEE MD, RADIOLOGIST (Environmental Economist) /[facility] JAKUB LEE [facility] July 18, 2022 07:30 AM FLUORO UP TO 1 HR PHYSICIAN TIME: MARYJO WAGNER [id number] -1950 M Exm Date: JULY 18, 2022@07:30 Req Phys: LEIF BALBUENA Loc: OR-PACU/07-18-2022@13:14 Img Loc: MAIN X-RAY Service: PRIMARY CARE - MED OFFICE (Case [id number] COMPLETE) FLUORO UP TO 1 HR PHYSICIAN TIME (RAD Detailed) CPT:06684 Proc Modifiers : PORTABLE EXAM, OPERATING ROOM EXAM, LEFT Reason for Study: Left distal humerous ORIF Clinical History: OR 7 Pathologic distal humeral shaft fracture Responsible provider name and phone number to notify for critical findings if other than user placing the order and pager listed below: User placing orders pager: Henry BALBUENA [phone] LAST CREATININE 0.8 (07/17/22) Report Status: Electronically Filed Date Reported: JULY 18, 2022 Report: Impression: Please see the full report for this procedure in CPRS patient progress notes. Fluoro guidance was provided during this procedure, but the study was not reviewed or verified by a [facility] radiologist. The radiation exposure dose has been recorded in the patient's chart. If you are unable to view this data, please contact the Imaging Department. VERIFIED BY: / *ELECTRONICALLY FILED* [facility] July 17, 2022 03:28 PM ABDOMINAL AORTOGRAM (P): BERNARDMARYJO DIRK [id number] -1950 M Exm Date: JULY 17, 2022@15:28 Req Phys: MALCOM LANGLEY Loc: 07-17-2022@15:54 Img Loc: INTERVENTIONAL RADIOLOGY Service: PRIMARY CARE - MED OFFICE (Case [id number] COMPLETE) ANGIOGRAPHY EXTREMITY UNILAT S&I (ANI Detailed) CPT:96617 Reason for Study: codes (Case 528 COMPLETE) IR AORTOGRAPHY ABDOMINAL W/O RUNO(ANI Detailed) CPT:58370 (Case 529 COMPLETE) IR FOREIGN BODY REMOVAL INTRAVASC(ANI Detailed) CPT:02089 (Case 532 COMPLETE) IR NEEDLE/INTRACATH PLACEMENT EXT(ANI Detailed) CPT:43670 (Case 533 COMPLETE) IR PLACEMENT OCCLUSIVE DEVICE SAM(ANI Detailed) CPT:G0269 Clinical History: codes Report Status: Verified Date Reported: JULY 17, 2022 Date Verified: JULY 17, 2022 Environmental Economist E-Sig:/ES/MALCOM LANGLEY MD Report: RADIOLOGIST: Malcom Langley [...] angiogram and runoff. 12. Closure of right LINER CHECKER with Angio-Seal device. HISTORY: Metastatic renal cell [...] Sheath removed over guidewire and a 5 macedonian vascular sheath advanced over guidewire into the artery. An H1 catheter was advanced along with the guidewire into the thoracic arch and the left subclavian artery was selected. Catheter and the guidewire were advanced into the left brachial artery. The 5 Nicaraguan sheath was exchanged for a 6 Nicaraguan sheath that was advanced into the left [...] arteries. Sheath and catheters were removed and LINER CHECKER arteriotomy was closed using Angioseal. There is patent hemostasis. No bleeding or hematoma noted. Sterile dressing applied. 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 Primary Interpreting Staff: MALCOM LANGLEY MD, INTERVENTIONAL RADIOLOGIST (Environmental Economist) /MALCOM [facility] July 17, 2022 07:30 AM RENAL ARTERY EMBOLIZATION (P): MARYJO WAGNER [id number] -1950 M Exm Date: JULY 17, 2022@07:30 Req Phys: WESTON VASQUEZ Pat Loc: 07-17-2022@15:46 Img Loc: INTERVENTIONAL RADIOLOGY Service: PRIMARY CARE - MED OFFICE (Case [id number] COMPLETE) IR TRANSCATH EMBOLIZATION W/ANGIO(ANI Detailed) CPT:11844 Reason for Study: embolization of RCC mets to left humerus (Case 131 COMPLETE) IR ARTERIAL EMBOLIZATION OTHER TH(ANI Detailed) CPT:33219 (Case 132 COMPLETE) IR US GUIDANCE VASCULAR ACCESS (ANI Detailed) CPT:12798 Clinical History: [place] IS NOT under investigation for COVID-19 or [...] pager listed below: User placing orders pager: [phone] LAST CREATININE 1.0 (07/13/22) Report Status: Verified Date Reported: JULY 17, 2022 Date Verified: JULY 17, 2022 Environmental Economist E-Sig:/ES/MALCOM LANGLEY MD Report: RADIOLOGIST: Malcom Langley [...] angiogram and runoff. 12. Closure of right LINER CHECKER with Angio-Seal device. HISTORY: Metastatic renal cell [...] Sheath removed over guidewire and a 5 macedonian vascular sheath advanced over guidewire into the artery. An H1 catheter was advanced along with the guidewire into the thoracic arch and the left subclavian artery was selected. Catheter and the guidewire were advanced into the left brachial artery. The 5 Nicaraguan sheath was exchanged for a 6 Nicaraguan sheath that was advanced into the left [...] arteries. Sheath and catheters were removed and LINER CHECKER arteriotomy was closed using Angioseal. There is patent hemostasis. No bleeding or hematoma noted. Sterile dressing applied. 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 Primary Interpreting Staff: MALCOM LANGLEY MD, INTERVENTIONAL RADIOLOGIST (Environmental Economist) /[facility]ALCOM [facility] July 14, 2022 06:44 AM HUMERUS LEFT MINIMUM 2 VIEWS: MARYJO WAGNER [id number] -1950 M Ex Date: JULY 14, 2022@06:44 Req Phys: PEDROHERBERTJAIRO [facility] Loc: 07-14-2022@07:13 Img Loc: MAIN X-RAY Service: PRIMARY CARE - MED OFFICE (Case [id number] COMPLETE) HUMERUS LEFT MINIMUM 2 VIEWS (RAD Detailed) CPT:29187 Reason for Study: post reduction Clinical History: Report Status: Verified Date Reported: JULY 14, 2022 Date Verified: JULY 14, 2022 Environmental Economist E-Sig: Report: HUMERUS LEFT MINIMUM 2 VIEWS HISTORY: post reduction COMPARISON: 07/13/2022 TECHNIQUE: 2 view(s) of the humerus, submitted to the [place] National Teleradiology Program (NTP) for interpretation. FINDINGS: [...] less likely. READING PHYSICIAN: Xavier Merrill MD -[id number] 07/14/2022 5:11 PDT [facility] National Teleradiology Program [phone] (For Medical Practitioner Use Only) Attention Patients / Veterans: If you have questions or concerns about these test results, please contact your ordering provider or primary care team. Primary Interpreting Staff: RADIOLOGY,OUTSIDE SERVICE, Staff Physician / RADIOLOGY,OUTSIDE SERVICE [facility] July 13, 2022 10:07 AM ELBOW LEFT 3 OR MORE VIEWS: MARYJO WAGNER [id number] -1950 M Ex Date: JULY 13, 2022@10:07 Req Phys: WHITNEY ANDERSON Pat Loc: [facility] EMERGENCY DEPT WALK-IN (Re Img Loc: MAIN X-RAY Service: Unknown (Case [id number] COMPLETE) ELBOW LEFT 3 OR MORE VIEWS (RAD Detailed) CPT:22073 Proc Modifiers : LEFT Reason for Study: [...] pager listed below: User placing orders pager: [phone] LAST CREATININE 0.8 (05/10/22) Report Status: Verified Date Reported: JULY 13, 2022 Date Verified: JULY 13, 2022 Environmental Economist E-Sig:/SANGITA/ALBINA COWAN MD, FACR, CCD Report: EXAMINATION: [...] Staff: ALBINA COWAN MD, FACR, STAFF RADIOLOGIST (Environmental Economist) /[facility] ALBINA COWAN [facility] July 13, 2022 10:07 AM HUMERUS LEFT MINIMUM 2 VIEWS: MARYJO WAGNER [id number] -1950 M Exm Date: JULY 13, 2022@10:07 Req Phys: WHITNEY ANDERSON Pat Loc: [facility] EMERGENCY DEPT WALK-IN (Re Img Loc: MAIN X-RAY Service: Unknown (Case [id number] COMPLETE) HUMERUS LEFT MINIMUM 2 VIEWS (RAD Detailed) CPT:84558 Proc Modifiers : LEFT Reason for Study: [...] pager listed below: User placing orders pager: [phone] LAST CREATININE 0.8 (05/10/22) Report Status: Verified Date Reported: JULY 13, 2022 Date Verified: JULY 13, 2022 Environmental Economist E-Sig:/SANGITA/ALBINA COWAN MD, FACR, CCD Report: EXAMINATION: HUMERUS [...] Staff: ALBINA COWAN MD, FACR, STAFF RADIOLOGIST (Environmental Economist) /ALBINA [facility]ATH[facility] July 13, 2022 10:07 AM FOREARM LEFT 2 VIEWS: MARYJO WAGNER [id number] -1950 M Exm Date: JULY 13, 2022@10:07 Req Phys: MONICAWHITNEY MARIN Pat Loc: [facility] EMERGENCY DEPT WALK-IN (Re Img Loc: MAIN X-RAY Service: Unknown (Case [id number] COMPLETE) FOREARM LEFT 2 VIEWS (RAD Detailed) CPT:86319 Proc Modifiers : LEFT Reason for Study: L arm pain Clinical History: [place] IS NOT under investigation for COVID-19 or is COVID-19 negative Atraumatic left upper extremity pain that is located midshaft humerus distally to the mid forearm. Clinical concern for dislocation versus fracture versus bone mets Responsible provider name and phone number to notify for critical findings if other than user placing the order and pager listed below: User placing orders pager: [phone] LAST CREATININE 0.8 (05/10/22) Report Status: Verified Date Reported: JULY 13, 2022 Date Verified: JULY 13, 2022 Environmental Economist E-Sig:/ES/ALBINA COWAN MD, FACR, [facility] Report: EXAMINATION: FOREARM LEFT 2 VIEWS 07/13/2022 [...] Staff: ALBINA COWAN MD, FACR, STAFF RADIOLOGIST (Environmental Economist) /ALBINA [facility]ATHAN [facility] Pathology Reports: +/- 30 days [...] the Encounter. The data comes from all [place] treatment facilities. Date/Time Pathology Report Provider Source July 13, 2022 04:06 PM LR SURGICAL PATHOL OGY REPORT: LOCAL TITLE: LR SURGICAL PATHOLOGY REPORT STANDARD TITLE: PATHOLOGY REPORT DATE OF NOTE: JULY 21, 2022@14:37:27 ENTRY DATE: JULY 21, 2022@14:37:27 AUTHOR: JIAN SANDOVAL EXP COSIGNER: URGENCY: STATUS: COMPLETED $APHDR Reporting Lab: [facility] [CLIA# [id number]] [place] [address] - - - - - - - [...] is entirely submitted in A-D. CE. (D). [facility] FROZEN SECTION DIAGNOSES: SPEC. 1 - [...] SANDOVAL STAFF PATHOLOGIST, PATHOLOGY & LABORATORY MED [facility] Signed July 21, 2022@14:37 Performing Laboratory: Surgical Pathology Report Performed By: [facility] [CLIA# [id number]] [place] [address] $FTR - - - - - - [...] - - MARYJO WAGNER STANDARD FORM 515 ID:[id number] SEX:M :1950 AGE: 72 LOC:[facility] PATHOLOGY PRO FEE ADM:June DX:PATHOLOGIC FX LF HUMERUS PCP: Leif Balbuena MD /sangita/ JIAN SANDOVAL STAFF PATHOLOGIST, PATHOLOGY & LABORATORY MED C Signed: 07/21/2022 14:[address] [facility]
--- OUTSIDE RECORDS SUMMARY | 2023-03-24 08:39 | XMS_ITS | Encounter Summary ---
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 [facility] Organization Department of [facility] Address [address] [place] [address] Support Name Relationship Address Phone DOREEN WAGNER Next of Kin [address] [place] [phone] DOREEN Emergency Contact [address] [place] [phone] Insurance Providers: All historical and current [...] [place]'s Name Patient's Relationship to Policy [place] [facility] MEDICARE ADVANTAGE MCR ([facility]) June 26, 2016 [id number] CARSONJOAN ROWELL [facility]IENT [facility] MEDICARE ADVANTAGE MCR ([facility]) June 26, 2016 [id number] [phone] BERNARDJOAN KARSTEN PATIENT [facility] [facility] ([facility]) MEDICARE ADVANTAGE MCR ([facility]) June 26, 2016 [id number] JOAN WAGNER KARSTEN PATIENT Selected Encounter This section includes the information on record at [place] for the Encounter. Date/Time Encounter Type Encounter Description Reason Provider Source July 18, 2022 07:28 AM OFFICE O/P EST MOD 30-39 MIN ANESTHESIA PRE/POST-OP CONSULT ICD-10-CM Z01.818 Encounter for other preprocedural examination ASTER HUTCHINSON Encounter Template Text not used by [place] Assessments - Encounter Diagnoses This section includes the primary and secondary diagnoses documented for the Encounter. Date/Time Primary/Secondary Diagnosis Diagnosis Name Provider Source July 18, 2022 07:30 AM PRIMARY Encounter for other preprocedural examination ASTER HUTCHINSON [facility] Plan of Treatment: Future Appointments (+ 6 months) and Future Tests (+/- 45 days) The Plan of Treatment section includes future care activities for the patient from [facility] [place] [facility] This section includes future appointments and future orders which are active, pending or scheduled. Future Appointments This section includes appointments that were scheduled to occur 6 months from the date of the Encounter, up to a maximum of 20 appointments. The data comes from all [facility]. Appointment Date/Time Appointment Type Appointme nt Facility Name Jul 28, 2022 10:45 AM AMBULATORY - MEDICINE [facility] Aug 13, 2022 06:13 PM AMBULATORY - MEDICINE [facility] Aug 23, 2022 09:30 AM AMBULATORY - SURGERY [facility] Aug 23, 2022 09:45 AM AMBULATORY - NONE [facility] Aug 23, 2022 10:30 AM AMBULATORY - MEDICINE [facility] Aug 23, 2022 10:31 AM AMBULATORY - MEDICINE [facility] Sep 06, 2022 10:15 AM AMBULATORY - SURGERY [facility] Oct 25, 2022 07:00 AM AMBULATORY - NONE [facility] Oct 25, 2022 07:30 AM AMBULATORY - SURGERY [facility] Oct 25, 2022 09:00 AM AMBULATORY SURGERY [facility] Active, Pending, and [...] theEncounter. The data comes from all [facility]. Test Date/Time Test Type Test Details Facility Name Jun 12, 2022 12:00 AM Laboratory - Chemistry Order CBC & DIFF BLOOD ONCO SP ONCE [facility] Jun 12, 2022 12:00 AM Laboratory - Chemistry Order COMPREHENSIVE METABOLIC PANEL+MG PLASMA ONCO SP ONCE [facility] Jun 12, 2022 12:00 AM Laboratory - Chemistry Order TSH W/REFLEX TO FREE T4 PLASMA ONCO SP ONCE [facility] July 14, 2022 12:00 AM Laboratory - Blood Bank Order ABO/RH - LAB BLOOD [facility] July 14, 2022 02:05 PM Laboratory - Blood Bank Order TYPE & SCREEN - LAB BLOOD [facility] Aug 07, 2022 11:23 AM Laboratory - Chemistry Order DRUG SCREEN PANEL,URINE URINE ONCE [facility] Aug 23, 2022 10:47 AM Laboratory - Chemistry Order URINALYSIS URINE ER STAT [facility] Lab Results: +/- 30 days of the encounter This section includes the Chemistry and Hematology Lab Results on record with [place] for the patient. Radiology Reports and Pathology Reports are provided separately, in subsequent sections. Lab Results This section contains the Chemistry/Hematology Results that were resulted 30 days before or 30 daysafter the date of the Encounter. Date/Time Source Result Type Result - Unit Interpretation Reference Range Comment July 19, 2022 04:40 PM [facility] FINGERSTICK GLUCOSE Specimen Type: BLOOD Comment: Save Result Nurse Notified Ordering Provider: MACKENZIE COTTER Report Released Date/Time: July 19, 2022 05:00 PM Reporting Lab: [facility] [phone] Performing Lab: [facility] [address] FINGERSTICK GLUCOSE 132 70-100 July 19, 2022 07:13 AM [facility] COMPREHENSIVE METABOLIC PANEL+MG Specimen Type: PLASMA No comment entered. Ordering Provider: MACKENZIE COTTER Report Released Date/Time: July 18, 2022 05:40 PM Reporting Lab: [facility] [address] Performing Lab: [facility] [address] CREATININE 0.9 0.7-1.2 UREA NITROGEN 24 8-26 [...] July 19, 2022 07:13 AM [facility] IRON GROUP Specimen Type: SERUM No comment entered. Ordering Provider: MACKENZIE CTOTER Report Released Date/Time: July 18, 2022 05:40 PM Reporting Lab: [facility] [address] Performing Lab: [facility] [address] IRON 28 L 65-175 TIBC,CALCULATE D 223 L 250-425 FERRITIN 73.7 21.8-274.7 IRON SATURATION 13 L 20-50 TRANSFERRIN 178 163-382 July 19, 2022 07:13 AM [facility] CBC Specimen Type: BLOOD No comment entered. Ordering Provider: MACKENZIE COTTER Report Released Date/Time: July 18, 2022 05:40 PM Reporting Lab: [facility] [address] Performing Lab: [facility] [address] WBC 7.73 4.0-11.0 RBC 2.42 L 4.6-6.2 HGB 8.2 L 13.5-17.9 HCT 23.8 L 41-54 MCV 98.3 80-100 MCH 33.9 H 27-33 MCHC 34.5 32.0-37.5 PLT 155 150-400 MPV 9.6 7.4-10.4 RDW 13.5 11.5-14.5 July 19, 2022 05:44 AM [facility] FINGERSTICK GLUCOSE Specimen Type: BLOOD Comment: Save Result Nurse Notified Ordering Provider: MACKENZIE COTTER Report Released Date/Time: July 19, 2022 11:54 AM Reporting Lab: [facility] [address] Performing Lab: [facility] [address] FINGERSTICK GLUCOSE 137 70-100 July 18, 2022 10:51 PM [facility] FINGERSTICK GLUCOSE Specimen Type: BLOOD Comment: Save Result Nurse Notified Ordering Provider: MACKENZIE COTTER Report Released Date/Time: July 18, 2022 11:06 PM Reporting Lab: [facility] [address] Performing Lab: [facility] [address] FINGERSTICK GLUCOSE 163 70-100 July 17, 2022 06:51 AM [facility] BASIC METABOLIC PANEL+MG Specimen Type: PLASMA No comment entered. Ordering Provider: DANG PAULA R Report Released Date/Time: July 16, 2022 09:37 AM Reporting Lab: [facility] [address] Performing Lab: [facility] [address] CREATININE 0.8 0.7-1.2 UREA NITROGEN 23 8-26 GLUCOSE 107 H 70-100 SODIUM 139 136-145 POTASSIUM 3.9 3.5-5.1 CHLORIDE 106 98-107 CO2 28 22-29 CALCIUM 9.1 8.4-10.2 MAGNESIUM 1.9 1.6-2.6 ANION GAP 5 5-15 .CREAT EGFR(CKD-EPI) >90 See_Commen t July 17, 2022 06:51 AM [facility] PROTHROMBIN TIME/INR Specimen Type: PLASMA No comment entered. Ordering Provider: DANG PAULA R Report Released Date/Time: July 16, 2022 09:37 AM Reporting Lab: [facility] [address] Performing Lab: [facility] [address] .INR 1.0 0.8-1.1 .PT 11.5 9.4-12.5 July 17, 2022 06:51 AM [facility] CBC Specimen Type: BLOOD No comment entered. Ordering Provider: DANG PAULA R Report Released Date/Time: July 16, 2022 09:37 AM Reporting Lab: [facility] [address] Performing Lab: [facility] [address] WBC 6.05 4.0-11.0 RBC 3.77 L 4.6-6.2 HGB 12.7 L 13.5-17.9 HCT 36.0 L 41-54 MCV 95.5 80-100 MCH 33.7 H 27-33 MCHC 35.3 32.0-37.5 PLT 179 150-400 MPV 9.4 7.4-10.4 RDW 13.2 11.5-14.5 July 13, 2022 11:22 AM [facility] COVID-19 AND FLU/RSV DIAG PANEL(CEPHEID) Specimen Typ e: NASOPHARYNGEAL Comment: Cepheid GeneXpert (618) Ordering Provider: WHITNEY ANDERSON Report Released Date/Time: July 13, 2022 11:04 AM Reporting Lab: [facility] [address] Performing Lab: [facility] [address] COVID-19 (CEPHEID) Not Detected See_Commen t INFLUENZA A (PCR) Not Detected See_Commen t INFLUENZA B (PCR) Not Detected See_Commen t RSV (PCR) Not Detected See_Com men t July 13, 2022 11:00 AM [facility] C-REACTIVE PROTEIN Specimen Type: SERUM Comment: Automated Differential Performed Ordering Provider: WHITNEY ANDERSON Report Released Date/Time: July 13, 2022 11:04 AM Reporting Lab: [facility] [address] Performing Lab: [facility] [address] C-REACTIVE PROTEIN 1.17 <5.00 July 13, 2022 11:00 AM [facility] PROTHROMBIN TIME/INR Specimen Type: PLASMA No comment entered. Ordering Provider: WHITNEY ANDERSON Report Released Date/Time: July 13, 2022 11:04 AM Reporting Lab: [facility] [address] Performing Lab: [facility] [address] .INR 0.9 0.8-1.1 .PT 11.1 9.4-12.5 July 13, 2022 11:00 AM [facility] SED RATE Specimen Type: BLOOD No comment entered. Ordering Provider: WHITNEY ANDERSON Report Released Date/Time: July 13, 2022 11:04 AM Reporting Lab: [facility] [address] Performing Lab: [facility] [address] SED RATE 10 5-15 July 13, 2022 11:00 AM [facility] CBC & DIFF Specimen Type: BLOOD Comment: Automated Differential Performed Ordering Provider: WHITNEY ANDERSON Report Released Date/Time: July 13, 2022 11:04 AM Reporting Lab: [facility] [address] Performing Lab: [facility] [address] WBC 8.82 4.0-11.0 RBC 3.89 L 4.6-6.2 [...] July 13, 2022 11:00 AM [facility] COMPREHENSIVE METABOLIC PANEL+MG Specimen Type: PLASMA Comment: Automated Differential Performed Ordering Provider: WHITNEY ANDERSON Report Released Date/Time: July 13, 2022 11:04 AM Reporting Lab: [facility] [address] Performing Lab: [facility] [address] CREATININE 1.0 0.7-1.2 UREA NITROGEN 16 8-26 [...] Source July 18, 2022 11:14 PM 9 [facility] July 18, 2022 11:14 PM 9 [facility] July 18, 2022 10:53 PM 98.6 F 68 /min 114/73 mm[Hg] 18 /min 95 % 8 [facility] July 18, 2022 09:30 PM 8 [facility] July 18, 2022 08:59 PM 9 [facility] Social History: Smoking Status (Most current) and Tobacco Use (All prior to encounter date) This section includes the most current, and the historical, smoking and tobacco- related health factors from the [place] facility where the Encounter took place. Current Smoking Status This section includes the most current smoking, or tobacco-related health factor, from the [place] facility where the Encounter took place. Date/Time Current Smoking Status Comment Facil ity May 10, 2022 09:15 AM VA-TOBACCO QUIT 15 YRS OR MORE [facility] Tobacco Use History This section includes a history of the smoking, or tobacco-related health factors, that were collected on or before the date of the Encounter. The data comes from the [place] facility where the Encounter took place. Date/Time Smoking Status/Tobacco Use Comment F acility May 10, 2022 09:15 AM VA-TOBACCO QUIT 15 YRS OR MORE [facility] May 11, 2021 09:15 AM VA-TOBACCO FORMER USER [facility] May 11, 2021 09:15 AM VA-TOBACCO QUIT 15 YRS OR MORE [facility] Nov 22, 2018 01:36 PM VA-TOBACCO NEVER USED [facility] Nov 12, 2017 07:35 AM FORMER TOBACCO USER 7Y OR GREATE R [facility] Nov 06, 2016 09:05 AM FORMER TOBACCO USER 7Y OR GREATE R [facility] Sep 27, 2015 09:42 AM FORMER TOBACCO USER 7Y OR GREATE R [facility] Sep 25, 2014 07:55 AM FORMER TOBACCO USER 7Y OR GREATE R [facility] Sep 08, 2013 07:48 AM FORMER TOBACCO USER 7Y OR GREATE R [facility] July 09, 2012 09:20 AM FORMER TOBACCO USE >1Y <7Y [facility] Jun 06, 2011 07:53 AM FORMER TOBACCO USE >1Y <7Y [facility] Sep 09, 2009 03:03 PM FORMER TOBACCO USE >1Y <7Y [facility] Aug 11, 2008 01:06 PM FORMER TOBACCO USE <1Y [facility] Sep 19, 2007 02:52 PM CURRENT TOBACCO USER [facility] Sep 03, 2006 03:32 PM CURRENT TOBACCO USER [facility] Advance Directives: All historical and current Section Date Range: From patient's date of to the date document was created. This section includes ALL of a patient's completed or amended [place] Advance and Rescinded Directives. The entries below indicate that a directive exists for the patient, but an actual copy is not included with this document. The data comes from all [place] facilities. Date Advance Directives Provider Source Mar 18, 2003 ADVANCE DIRECTIVE [facility] Radiology Reports: +/- 30 days of the [...] the Encounter. The data comes from all [place] treatment facilities. Date/Time Radiology Report Provider Source July 20, 2022 07:50 AM CHEST 1 VIEW: MARYJO WAGNER [id number] -1950 M Exm Date: JULY 20, 2022@07:50 Req Phys: MACKENZIE COTTER Pat Loc: 07-20-2022@08:26 Img Loc: MAIN X-RAY Service: PRIMARY CARE - MED OFFICE (Case [id number] COMPLETE) CHEST 1 VIEW (RAD Detailed) CPT:13614 Proc Modifiers : PORTABLE EXAM Reason for Study: see below. thanks. Clinical History: IS NOT under investigation for COVID-19 or is COVID-19 negative Please further evaluate for acute airspace disease given o2 requirement. Thanks. Responsible provider name and phone number to notify for critical findings if other than user placing the order and pager listed below: User placing orders pager: [phone] same LAST CREATININE 0.9 (07/19/22) Report Status: Verified Date Reported: JULY 20, 2022 Date Verified: JULY 20, 2022 Dance Professor E-Sig:/ES/JAMIE MIGUEL MD Report: EXAM: CHEST 1 [...] pager listed below: User placing orders pager: [phone] same LAST CREATININE 0. COMPARISON: Chest CT [...] Primary Interpreting Staff: JAMIE MIGUEL MD, RADIOLOGIST (Dance Professor) /JAMIE FRANCES [facility] July 18, 2022 12:59 PM ELBOW LEFT 2 VIEWS: MARYJO WAGNER [id number] -1950 M Exm Date: JULY 18, 2022@12:59 Req Phys: LEIF BALBUENA Loc: OR-PACU/07-18-2022@13:59 Img Loc: MAIN X-RAY Service: ZZSURGICAL SERVICE (Case [id number] COMPLETE) ELBOW LEFT 2 VIEWS (RAD Detailed) CPT:66438 Proc Modifiers : PORTABLE EXAM, OPERATING ROOM EXAM Reason for Study: post-op Clinical History: post-op Report Status: Verified Date Reported: JULY 18, 2022 Date Verified: JULY 18, 2022 Dance Professor E-Sig:/ES/JAKUB LEE MD Report: EXAM: ELBOW LEFT [...] Primary Interpreting Staff: JAKUB LEE MD, RADIOLOGIST (Dance Professor) /JAKUB LUCERO [facility] July 18, 2022 07:30 AM FLUORO UP TO 1 HR PHYSICIAN TIME: MARYJO WAGNER [id number] -1950 M Exm Date: JULY 18, 2022@07:30 Req Phys: LEIF BALBUENA Loc: OR-PACU/07-18-2022@13:14 Img Loc: MAIN X-RAY Service: PRIMARY CARE - MED OFFICE (Case [id number] COMPLETE) FLUORO UP TO 1 HR PHYSICIAN TIME (RAD Detailed) CPT:01399 Proc Modifiers : PORTABLE EXAM, OPERATING ROOM EXAM, LEFT Reason for Study: Left distal humerous ORIF Clinical History: OR 7 Pathologic distal humeral shaft fracture Responsible provider name and phone number to notify for critical findings if other than user placing the order and pager listed below: User placing orders pager: Henry BALBUENA [phone] LAST CREATININE 0.8 (07/17/22) Report Status: Electronically Filed Date Reported: JULY 18, 2022 Report: Impression: Please see the full report for this procedure in [facility] patient progress notes. Fluoro guidance was provided during this procedure, but the study was not reviewed or verified by a [facility] radiologist. The radiation exposure dose has been recorded in the patient's chart. If you are unable to view this data, please contact the Imaging Department. VERIFIED BY: / *ELECTRONICALLY FILED* [facility] July 17, 2022 03:28 PM ABDOMINAL AORTOGRAM (P): MARYJO WAGNER [id number] -1950 M Exm Date: JULY 17, 2022@15:28 Req Phys: MALCOM LANGLEY Loc: 07-17-2022@15:54 Img Loc: INTERVENTIONAL RADIOLOGY Service: PRIMARY CARE - MED OFFICE (Case [id number] COMPLETE) ANGIOGRAPHY EXTREMITY UNILAT S&I (ANI Detailed) CPT:46564 Reason for Study: codes (Case 528 COMPLETE) IR AORTOGRAPHY ABDOMINAL W/O RUNO(ANI Detailed) CPT:26659 (Case 529 COMPLETE) IR FOREIGN BODY REMOVAL INTRAVASC(ANI Detailed) CPT:65630 (Case 532 COMPLETE) IR NEEDLE/INTRACATH PLACEMENT EXT(ANI Detailed) CPT:75688 (Case 533 COMPLETE) IR PLACEMENT OCCLUSIVE DEVICE SAM(ANI Detailed) CPT:G0269 Clinical History: codes Report Status: Verified Date Reported: JULY 17, 2022 Date Verified: JULY 17, 2022 Dance Professor E-Sig:/ES/MALCOM LANGLEY MD Report: RADIOLOGIST: Malcom Langley [...] angiogram and runoff. 12. Closure of right WINE STEWARD with Angio-Seal device. HISTORY: Metastatic renal cell [...] Sheath removed over guidewire and a 5 cook islander vascular sheath advanced over guidewire into the artery. An H1 catheter was advanced along with the guidewire into the thoracic arch and the left subclavian artery was selected. Catheter and the guidewire were advanced into the left brachial artery. The 5 Martiniquais sheath was exchanged for a 6 Martiniquais sheath that was advanced into the left [...] arteries. Sheath and catheters were removed and WINE STEWARD arteriotomy was closed using Angioseal. There is patent hemostasis. No bleeding or hematoma noted. Sterile dressing applied. 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 Primary Interpreting Staff: MALCOM LANGLEY MD, INTERVENTIONAL RADIOLOGIST (Dance Professor) /MALCOM HE [facility] July 17, 2022 07:30 AM RENAL ARTERY EMBOLIZATION (P): MARYJO WAGNER [id number] -1950 M Exm Date: JULY 17, 2022@07:30 Req Phys: WESTON VASQUEZ [facility] Loc: 07-17-2022@15:46 Img Loc: INTERVENTIONAL RADIOLOGY Service: PRIMARY CARE - MED OFFICE (Case 130 COMPLETE) IR TRANSCATH EMBOLIZATION W/ANGIO(ANI Detailed) CPT:71350 Reason for Study: embolization of RCC mets to left humerus (Case 131 COMPLETE) IR ARTERIAL EMBOLIZATION OTHER TH(ANI Detailed) CPT:94395 (Case 132 COMPLETE) IR US GUIDANCE VASCULAR ACCESS (ANI Detailed) CPT:95670 Clinical History: IS NOT under investigation for [...] pager listed below: User placing orders pager: [phone] LAST CREATININE 1.0 (07/13/22) Report Status: Verified Date Reported: JULY 17, 2022 Date Verified: JULY 17, 2022 Dance Professor E-Sig:/ES/MALCOM LANGLEY MD Report: RADIOLOGIST: Malcom Langley [...] angiogram and runoff. 12. Closure of right WINE STEWARD with Angio-Seal device. HISTORY: Metastatic renal cell [...] Sheath removed over guidewire and a 5 cook islander vascular sheath advanced over guidewire into the artery. An H1 catheter was advanced along with the guidewire into the thoracic arch and the left subclavian artery was selected. Catheter and the guidewire were advanced into the left brachial artery. The 5 Martiniquais sheath was exchanged for a 6 Martiniquais sheath that was advanced into the left [...] arteries. Sheath and catheters were removed and WINE STEWARD arteriotomy was closed using Angioseal. There is patent hemostasis. No bleeding or hematoma noted. Sterile dressing applied. 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 Primary Interpreting Staff: MALCOM LANGLEY MD, INTERVENTIONAL RADIOLOGIST (Dance Professor) /MALCOM HE [facility] July 14, 2022 06:44 AM HUMERUS LEFT MINIMUM 2 VIEWS: MARYJO WAGNER [id number] -1950 M Exm Date: JULY 14, 2022@06:44 Req Phys: WESTON VASQUEZ Loc: 07-14-2022@07:13 Img Loc: MAIN X-RAY Service: PRIMARY CARE - MED OFFICE (Case [id number] COMPLETE) HUMERUS LEFT MINIMUM 2 VIEWS (RAD Detailed) CPT:09500 Reason for Study: post reduction Clinical History: Report Status: Verified Date Reported: JULY 14, 2022 Date Verified: JULY 14, 2022 Dance Professor E-Sig: Report: HUMERUS LEFT MINIMUM 2 VIEWS HISTORY: post reduction COMPARISON: 07/13/2022 TECHNIQUE: 2 view(s) of the humerus, submitted to the [place] National Teleradiology Program (NTP) for interpretation. FINDINGS: [...] less likely. READING PHYSICIAN: Xavier Merrill MD -[id number] 07/14/2022 5:11 PDT [facility] National Teleradiology Program [phone] (For Medical Practitioner Use Only) Attention Patients / Veterans: If you have questions or concerns about these test results, please contact your ordering provider or primary care team. Primary Interpreting Staff: RADIOLOGY,OUTSIDE SERVICE, Staff Physician / RADIOLOGY,OUTSIDE SERVICE [facility] July 13, 2022 10:07 AM ELBOW LEFT 3 OR MORE VIEWS: MARYJO WAGNER [id number] -1950 M Exm Date: JULY 13, 2022@10:07 Req Phys: WHITNEY ANDERSON Loc: [facility] EMERGENCY DEPT WALK-IN (Re Img Loc: MAIN X-RAY Service: Unknown (Case [id number] COMPLETE) ELBOW LEFT 3 OR MORE VIEWS (RAD Detailed) CPT:27696 Proc Modifiers : LEFT Reason for Study: L arm pain Clinical History: [place] IS NOT under investigation for COVID-19 or is COVID-19 negative Atraumatic left upper extremity pain that is located midshaft humerus distally to the mid forearm. Clinical concern for dislocation versus fracture versus bone mets Responsible provider name and phone number to notify for critical findings if other than user placing the order and pager listed below: User placing orders pager: [phone] LAST CREATININE 0.8 (05/10/22) Report Status: Verified Date Reported: JULY 13, 2022 Date Verified: JULY 13, 2022 Dance Professor E-Sig:/ES/ALBINA COWAN MD, FACR, CCD Report: EXAMINATION: [...] Staff: ALBINA COWAN MD, FACR, STAFF RADIOLOGIST (Dance Professor) /BSF ALBINA COWAN [facility] July 13, 2022 10:07 AM HUMERUS LEFT MINIMUM 2 VIEWS: MARYJO WAGNER [id number] -1950 M Ex Date: JULY 13, 2022@10:07 Req Phys: WHITNEY ANDERSNO Pat Loc: [facility] EMERGENCY DEPT WALK-IN (Re Img Loc: MAIN X-RAY Service: Unknown (Case [id number] COMPLETE) HUMERUS LEFT MINIMUM 2 VIEWS (RAD Detailed) CPT:25117 Proc Modifiers : LEFT Reason for Study: L arm pain Clinical History: [place] IS NOT under investigation for COVID-19 or is COVID-19 negative Atraumatic left upper extremity pain that is located midshaft humerus distally to the mid forearm. Clinical concern for dislocation versus fracture versus bone mets Responsible provider name and phone number to notify for critical findings if other than user placing the order and pager listed below: User placing orders pager: [phone] LAST CREATININE 0.8 (05/10/22) Report Status: Verified Date Reported: JULY 13, 2022 Date Verified: JULY 13, 2022 Dance Professor E-Sig:/ES/ALBINA COWAN MD, FACR, CCD Report: EXAMINATION: [...] Staff: ALBINA COWAN MD, FACR, STAFF RADIOLOGIST (Dance Professor) /BSF ALBINA COWAN [facility] July 13, 2022 10:07 AM FOREARM LEFT 2 VIEWS: MARYJO WAGNER [id number] -1950 M Exm Date: JULY 13, 2022@10:07 Req Phys: WHITNEY ANDERSON Pat Loc: [facility] EMERGENCY DEPT WALK-IN (Re Img Loc: MAIN X-RAY Service: Unknown (Case [id number] COMPLETE) FOREARM LEFT 2 VIEWS (RAD Detailed) CPT:84715 Proc Modifiers : LEFT Reason for Study: [...] pager listed below: User placing orders pager: [phone] LAST CREATININE 0.8 (05/10/22) Report Status: Verified Date Reported: JULY 13, 2022 Date Verified: JULY 13, 2022 Dance Professor E-Sig:/ES/ALBINA COWAN MD, FACR, CCD Report: EXAMINATION: [...] Staff: ALBINA COWAN MD, FACR, STAFF RADIOLOGIST (Dance Professor) /BSF ALBINA COWAN [facility] Pathology Reports: +/- 30 days of [...] the Encounter. The data comes from all [place] treatment facilities. Date/Time Pathology Report Provider Source July 13, 2022 04:06 PM LR SURGICAL PATHOL OGY REPORT: LOCAL TITLE: LR SURGICAL PATHOLOGY REPORT STANDARD TITLE: PATHOLOGY REPORT DATE OF NOTE: JULY 21, 2022@14:37:27 ENTRY DATE: JULY 21, 2022@14:37:27 AUTHOR: JIAN SANDOVAL EXP COSIGNER: URGENCY: STATUS: COMPLETED $APHDR Reporting Lab: [facility] [CLIA# [id number]] [place] [address] - - - - - - - [...] SANDOVAL STAFF PATHOLOGIST, PATHOLOGY & LABORATORY MED [facility] Signed July 21, 2022@14:37 Performing Laboratory: Surgical Pathology Report Performed By: [facility] [CLIA# [id number]] [place] [address] $FTR - - - - - - [...] - - MARYJO WAGNER STANDARD FORM 515 ID:[id number] SEX:M :1950 AGE: 72 LOC:[facility] PATHOLOGY PRO FEE ADM:June DX:PATHOLOGIC FX LF HUMERUS PCP: Leif Balbuena MD /sangita/ JIAN SANDOVAL STAFF PATHOLOGIST, PATHOLOGY & LABORATORY MED [facility] Signed: 07/21/2022 14:37 JIAN SANDOVAL [facility] Encounter Notes: All associated encounter notes This section contains the clinical notes associated to the Encounter. Date/Time Encounter Note(s) Provider Source July 18, 2022 03:08 PM ANESTHESIOLOGY NOT E: LOCAL TITLE: ANESTHESIA POST-ANESTHESIA EVALUATION STANDARD TITLE: ANESTHESIOLOGY NOTE DATE OF NOTE: JULY 18, 2022@15:08 ENTRY DATE: JULY 18, 2022@15:08:35 AUTHOR: ASTER HUTCHINSON EXP COSIGNER: URGENCY: STATUS: COMPLETED POST-ANESTHESIA EVALUATION PACU PATIENT MET DISCHARGE CRITERIA - Kenny score of > or = 8 ANESTHESIA TYPE General VITAL SIGNS Vital signs stable NORMAL PHYSIOLOGIC SYSTEMS ASSESSMENT Neuro/Mental Health: appropriate mentation or preoperative baseline Airway/Respiratory: normal respiratory status Cardiovascular: appropriate blood pressure, heart rate and rhythm Pain: comfortable, well controlled Postop nausea/vomiting: none STATUS AT SIGNOUT stable DISPOSITION [place] /sangita/ ASTER HUTCHINSON MDA ANESTHESIOLOGIST Signed: 07/18/2022 15:09 ASTER HUTCHINSON [facility] July 18, 2022 08:38 AM ANESTHESIOLOGY NOT E: LOCAL TITLE: ANESTHESIA POSTOPERATIVE ASSESSMENT STANDARD TITLE: ANESTHESIOLOGY NOTE DATE OF NOTE: JULY 18, 2022@08:38 ENTRY DATE: JULY 18, 2022@08:38:32 AUTHOR: EDI WALDEN EXP COSIGNER: URGENCY: STATUS: COMPLETED POSTOPERATIVE ANESTHESIA ASSESSMENT 72 year old MALE who is POST OP DAY 1. ~~~~~~~~~~~~~~~~~~~~~~~~~~ ~~~~~~~~~~~~~~~~~~~~~~~~~~ ~~~~~~PATIENT LOCATION~~~ [place] ~~~~~~~~~~~~~~~~~~~~~~~~~~ ~~~~~~~~~~~~~~~~~~~~~~~~~~ ~~~~~~~ANESTHESIA TYPE~~~ *General Anesthesia/Monitored Anesthesia Care ~~~~~~~~~~~~~~~~~~~~~~~~~~ ~~~~~~~~~~~~~~~~~~~~~~~~~~ ~~~STATUS AND RESPONSE~~~ Yes Vital signs stable Yes Awake/alert Yes Oriented to patient baseline N/A Complications reported (describe below if yes) ~~~~~~~~~~~~~~~~~~~~~~~~~~ ~~~~~~~~~~~~~~~~~~~~~~~~~~ ~~~~~~~~~~~~IMPRESSION~~~ Does the patient require follow up? NO /es/ EDI WALDEN CRNA CERTIFIED REGISTERED NURSE CONSTRUCTION REPRESENTATIVE Signed: 07/18/2022 08:39 EDI WALDEN [facility] July 18, 2022 07:30 AM ANESTHESIOLOGY NOT E: LOCAL TITLE: ANESTHESIA PRE-INDUCTION NOTE STANDARD TITLE: ANESTHESIOLOGY NOTE DATE OF NOTE: JULY 18, 2022@07:30 ENTRY DATE: JULY 18, 2022@07:30:49 AUTHOR: ASTER HUTCHINSON COSIGNER: URGENCY: STATUS: COMPLETED ANESTHESIA PREINDUCTION NOTE Patient identified by name and either date of or full social security. Scheduled procedure: Surgery Scheduled Date/Time: July 18, 2022 Procedure: Left distal humerus ORIF, excision of tumor, Olecranon osteotomy Pre-Op Diagnosis: pathologic distal humeral shaft fracture PREOPERATIVE ASSESSMENT ASA status: III Patient's preoperative assessment reviewed------- There are no significant changes, new conditions, or additions from the patient's anesthesia preoperative assessment 12 point review of systems negative unless otherwise noted. No personal or family history of anesthesia complications NPO status Met ASA guidelines (>2 hrs clear liquids, >6 hrs light meal, >8 hrs heavy meal) Gastroesophogeal Reflux Disease: No Functional Capacity in Measure of Exercise Tolerance before surgery (METS): 4-10 Obstructive sleep apnea: Yes CPAP ----SOCIAL HISTORY -------- Tobacco: No Remote ex-cigar smoker Alcohol: No Substance use: No Naltrexone: No Buprenorphine: No Medications taken today: See MAR Physical Exam HT: 72 in [182.9 cm] (05/17/2022 07:44) WT: 240.0 lb [108.86 kg] (07/13/2022 16:25) BMI: 32.6 Vital signs stable HR: 60 (07/18/2022 07:20) BP: 168/79 (07/18/2022 07:20) RR: 18 (07/18/2022 07:20) O2: 96% (07/18/2022 07:20) Temp: 98.3 F [36.8 C] (07/18/2022 07:20) Airway Exam: Mallampati Class: II MP II, 3FB MO, no loose teeth, 6cm TMD, nl atlanto-occipital joint extension Mouth opening: full Neck: full range of motion Thyromental distance: >6cm Cardiac System: Cardiovascular exam normal: regular rhythm and rate, no murmur Respiratory: Clear to auscultation, normal respiratory rate and effort Mental/Neuro exam: Alert, oriented, calm, cooperative Labs HGB 12.7 L (07/17/22) HGB-POC: No data available PLT 179 (07/17/22) POTASSIUM 3.9 (07/17/22) Potassium-POC: No data available SODIUM 139 (07/17/22) No data available for: POC SODIUM CREATININE 0.8 (07/17/22) Creatinine-POC: Collection DT Specimen Test Name Result Units Ref Range 04/13/2022 13:46 BLOOD POC CREATININE 1.0 mg/dL 0.6 - 1.3 GLUCOSE 107 H (07/17/22) Glucose-POC: No data available INR 1.0 (07/17/22) Collection DT Specimen Test Name Result Units Ref Range 07/17/2022 05:30 PLASMA .INR 1.0 0.8 - 1.1 07/13/2022 11:00 PLASMA .INR 0.9 0.8 - 1.1 12/04/2017 08:42 PLASMA .INR 0.95 05/29/2017 06:42 PLASMA .INR 0.97 [place] INR: TP INR - NONE FOUND PT 11.5 (07/17/22) Anesthetic technique General Anesthesia Airway Endotracheal tube: oral Induction: propofol Maintenance: balanced Monitors/Equipment: Standard montitors Preoperative therapies: Acetaminophen Pain management Regional nerve block: +/- brachial plexus block postop Multimodal analgesia: Postop nausea/vomiting prophylaxis Ondansetron, Dexamethasone Patient/group sales representative verbally consents to blood products Informed consent discussion of anesthesia plan The anesthetic plan has been discussed with the patient and/or responsible group sales representative. The patient/group sales representative has been encouraged to ask questions and any concerns have been addressed. The risks, benefits, side effects, and alternative options of the plan were discussed. The patient/group sales representative endorses understanding of the information disclosed. The patient/group sales representative voluntarily elects to move forward with the anesthetic plan. Planned destination Phase I PACU 07/13/2022 18:02 Local Title: LIFE-SUSTAINING TREATMENT Standard Title: LIFE-SUSTAINING TREATMENT PLAN LIFE-SUSTAINING TREATMENT (LST) DECISION-MAKING CAPACITY TO MAKE DECISIONS ABOUT LIFE_SUSTAINING TREATMENTS Patient has capacity to make decisions about LSTs. PATIENT'S (OR SURROGATE'S) UNDERSTANDING OF PATIENT'S HEALTH Patient notes that his life is limited by his metastatic RCC (my fuse is short) 'S VALUES AND GOALS OF CARE - Goals as reported by the patient (or surrogate): Quality of Life for as long as he lives it. LIFE-SUSTAINING TREATMENT PLAN * In the event of cardiopulmonary arrest: DNAR/DNR: Do not attempt CPR. He uses to continue this code status during procedure Other Life-Sustaining Treatments: No other life-sustaining treatments were discussed INFORMED CONSENT Patient gave oral informed consent for life-sustaining treatment plan. PRESENT FOR GOALS OF CARE CONVERSATION Name(s) and contact information: Patient, Dr. Paula NAME OF SUPERVISING PRACTITIONER No Attending/supervising practitioner required. Signed by: /es/ ROLLY PAULA MD PHYSICIAN 07/13/2022 18:08 Digital Pager: [phone] Life Sustaining Treatment Orders Cohort: Reminder Term: VA-LIFE SUSTAINING TREATMENT ORDERABLE ITEMS Orderable Item: LST DNR - DO NOT RESUSCITATE 07/13/2022@18:08 Status: active, Start date: 07/13/2022@18:08, Stop date: missing Duration: 5 D A: 72y/o male with pathologic L distal humeral fx secondary to tumor s/p IR embolization 07/17/22 for L humerus ORIF, excision tumor, possible osteotomy. PMHx also notable for >4 METs exercise tolerance, HTN, ? 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 Available PSHx, anesthetic hx, labs, diagnostic imaging/tests reviewed. Currently DNR/DNI, d/w pt options including temporarily rescind, modify, affirm and need for GA for surgery, pt desires to modify to acceptable to intubate for surgery, do not perform DCCV/defibrillation or CPR. P: GETA +/- brachial plexus block (hx/o technically difficult supraclavicular/infraclavi cular/axillary anatomy due to vascularity proximity), propofol indxn, sevoflurane maintenance, standard ASA monitors, PONV prophylaxis, acetaminophen /es/ ASTER HUTCHINSON MDA ANESTHESIOLOGIST Signed: 07/18/2022 07:33 ASTER HUTCHINSON [facility]
--- OUTSIDE RECORDS SUMMARY | 2023-03-24 08:39 | XMS_ITS | Encounter Summary ---
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 [facility] Organization Department of [facility] Address [address] [place] [address] Support Name Relationship Address Phone DOREEN WAGNER Next of Kin [address] [place] [phone] DOREEN Emergency Contact [address] [place] [phone] Insurance Providers: All historical and current [...] Name Patient's Relationship to Policy [place] [employer] [facility] (WNR) MEDICARE [facility] (R) June 26, 2016 [id number] BERNARDJOAN PATIENT [employer]MANA MCR (WNR) MEDICARE ADVANTAGE [facility] (WNR) June 26, 2016 [id number] JOAN WAGNER KARSTEN PATIENT [employer] MCR (WNR) MEDICARE ADVANTAGE [facility] (WNR) June 26, 2016 [id number] JOAN WAGNER KARSTEN PATIENT Selected Encounter This section includes the information on record at PA for the Encounter. Date/Time Encounter Type Encounter Description Reason Pro vider Source July 17, 2022 01:05 PM Inpatient Visit ADMIN MONO CHAPMAN (BHARGAVNONCT) IHE Encounter Template Text not used by PA Plan of Treatment: Future Appointments (+ 6 [...] appointments. The data comes from all [facility]. Appointment Date/Time Appointment Type Appointme nt Facility Name Jul 28, 2022 10:45 AM [facility] Aug 13, 2022 06:13 PM AMBULATORY - MEDICINE [facility] Aug 23, 2022 09:30 AM AMBULATORY - SURGERY [facility] Aug 23, 2022 09:45 AM AMBULATORY - NONE [facility] Aug 23, 2022 10:30 AM AMBULATORY - MEDICINE [facility] Aug 23, 2022 10:31 AM AMBULATORY - MEDICINE [facility] Sep 06, 2022 10:15 AM AMBULATORY - SURGERY [facility] Oct 25, 2022 07:00 AM AMBULATORY - NONE [facility] Oct 25, 2022 07:30 AM AMBULATORY - SURGERY [facility] Oct 25, 2022 09:00 AM AMBULATORY SURGERY [facility] Active, Pending, and [...] theEncounter. The data comes from all [facility]. Test Date/Time Test Type Test Details Facility Name Jun 12, 2022 12:00 AM Laboratory - Chemistry Order CBC & DIFF BLOOD ONCO SP ONCE [facility] Jun 12, 2022 12:00 AM Laboratory - Chemistry Order COMPREHENSIVE METABOLIC PANEL+MG PLASMA ONCO SP ONCE [facility] Jun 12, 2022 12:00 AM Laboratory - Chemistry Order TSH W/REFLEX TO FREE T4 PLASMA ONCO SP ONCE [facility] July 14, 2022 12:00 AM Laboratory - Blood Bank Order ABO/RH - LAB BLOOD [facility] July 14, 2022 02:05 PM Laboratory - Blood Bank Order TYPE & SCREEN - LAB BLOOD [facility] Aug 07, 2022 11:23 AM Laboratory - Chemistry Order DRUG SCREEN PANEL,URINE URINE ONCE [facility] Aug 23, 2022 10:47 AM Laboratory - Chemistry Order URINALYSIS URINE ER STAT WC [facility] Lab Results: +/- 30 days of the encounter This section includes the Chemistry and Hematology Lab Results on record with PA for the patient. Radiology Reports and Pathology Reports are provided separately, in subsequent sections. Lab Results This section contains the Chemistry/Hematology Results that were resulted 30 days before or 30 daysafter the date of the Encounter. Date/Time Source Result Type Result - Unit Interpretation Reference Range Comment July 19, 2022 04:40 PM [facility] FINGERSTICK GLUCOSE Specimen Type: BLOOD Comment: Save Result Nurse Notified Ordering Provider: MACKENZIE COTTER Report Released Date/Time: July 19, 2022 05:00 PM Reporting Lab: [facility] [address] Performing Lab: [facility] [address] FINGERSTICK GLUCOSE 132 70-100 July 19, 2022 07:13 AM [facility] COMPREHENSIVE METABOLIC PANEL+MG Specimen Type: PLASMA No comment entered. Ordering Provider: MACKENZIE COTTER Report Released Date/Time: July 18, 2022 05:40 PM Reporting Lab: [facility] [address] Performing Lab: [facility] [address] CREATININE 0.9 0.7-1.2 UREA NITROGEN 24 8-26 [...] See_Commen t July 19, 2022 07:13 AM [facility] IRON GROUP Specimen Type: SERUM No comment entered. Ordering Provider: MACKENZIE COTTER Report Released Date/Time: July 18, 2022 05:40 PM Reporting Lab: [facility] [address] Performing Lab: [facility] [address] IRON 28 L 65-175 TIBC,CALCULATE D 223 L 250-425 FERRITIN 73.7 21.8-274.7 IRON SATURATION 13 L 20-50 TRANSFERRIN 178 163-382 July 19, 2022 07:13 AM [facility] CBC Specimen Type: BLOOD No comment entered. Ordering Provider: MACKENZIE COTTER Report Released Date/Time: July 18, 2022 05:40 PM Reporting Lab: [facility] [address] Performing Lab: [facility] [address] WBC 7.73 4.0-11.0 RBC 2.42 L 4.6-6.2 HGB 8.2 L 13.5-17.9 HCT 23.8 L 41-54 MCV 98.3 80-100 MCH 33.9 H 27-33 MCHC 34.5 32.0-37.5 PLT 155 150-400 MPV 9.6 7.4-10.4 RDW 13.5 11.5-14.5 July 19, 2022 05:44 AM [facility] FINGERSTICK GLUCOSE Specimen Type: BLOOD Comment: Save Result Nurse Notified Ordering Provider: MACKENZIE COTTER Report Released Date/Time: July 19, 2022 11:54 AM Reporting Lab: [facility] [address] Performing Lab: [facility] [address] FINGERSTICK GLUCOSE 137 70-100 July 18, 2022 10:51 PM [facility] FINGERSTICK GLUCOSE Specimen Type: BLOOD Comment: Save Result Nurse Notified Ordering Provider: MACKENZIE COTTER Report Released Date/Time: July 18, 2022 11:06 PM Reporting Lab: [facility] [address] Performing Lab: [facility] [address] FINGERSTICK GLUCOSE 163 70-100 July 17, 2022 06:51 AM [facility] BASIC METABOLIC PANEL+MG Specimen Type: PLASMA No comment entered. Ordering Provider: DANG VALLE Report Released Date/Time: July 16, 2022 09:37 AM Reporting Lab: [facility] [address] Performing Lab: [facility] [address] CREATININE 0.8 0.7-1.2 UREA NITROGEN 23 8-26 GLUCOSE 107 H 70-100 SODIUM 139 136-145 POTASSIUM 3.9 3.5-5.1 CHLORIDE 106 98-107 CO2 28 22-29 CALCIUM 9.1 8.4-10.2 MAGNESIUM 1.9 1.6-2.6 ANION GAP 5 5-15 .CREAT EGFR(CKD-EPI) >90 See_Commen t July 17, 2022 06:51 AM [facility] PROTHROMBIN TIME/INR Specimen Type: PLASMA No comment entered. Ordering Provider: DANG VALLE R Report Released Date/Time: July 16, 2022 09:37 AM Reporting Lab: [facility] [address] Performing Lab: [facility] [address] .INR 1.0 0.8-1.1 .PT 11.5 9.4-12.5 July 17, 2022 06:51 AM [facility] CBC Specimen Type: BLOOD No comment entered. Ordering Provider: DANG VALLE R Report Released Date/Time: July 16, 2022 09:37 AM Reporting Lab: [facility] [address] Performing Lab: [facility] [address] WBC 6.05 4.0-11.0 RBC 3.77 L 4.6-6.2 HGB 12.7 L 13.5-17.9 HCT 36.0 L 41-54 MCV 95.5 80-100 MCH 33.7 H 27-33 MCHC 35.3 32.0-37.5 PLT 179 150-400 MPV 9.4 7.4-10.4 RDW 13.2 11.5-14.5 July 13, 2022 11:22 AM [facility] COVID-19 AND FLU/RSV DIAG PANEL(CEPHEID) Specimen Typ e: NASOPHARYNGEAL Comment: Cepheid GeneXpert (618) Ordering Provider: WHITNEY ANDERSON Report Released Date/Time: July 13, 2022 11:04 AM Reporting Lab: [facility] [address] Performing Lab: [facility] [address] COVID-19 (CEPHEID) Not Detected Not Detected INFLUENZA A (PCR) Not Detected Not Detected INFLUENZA B (PCR) Not Detected Not Detected RSV (PCR) Not Detected Not Detected July 13, 2022 11:00 AM [facility] C-REACTIVE PROTEIN Specimen Type: SERUM Comment: Automated Differential Performed Ordering Provider: WHITNEY ANDERSON Report Released Date/Time: July 13, 2022 11:04 AM Reporting Lab: [facility] [address] Performing Lab: [facility] [address] C-REACTIVE PROTEIN 1.17 <5.00 July 13, 2022 11:00 AM [facility] PROTHROMBIN TIME/INR Specimen Type: PLASMA No comment entered. Ordering Provider: WHITNEY ANDERSON Report Released Date/Time: July 13, 2022 11:04 AM Reporting Lab: [facility] [address] Performing Lab: [facility] [address] .INR 0.9 0.8-1.1 .PT 11.1 9.4-12.5 July 13, 2022 11:00 AM [facility] SED RATE Specimen Type: BLOOD No comment entered. Ordering Provider: WHITNEY ANDERSON Report Released Date/Time: July 13, 2022 11:04 AM Reporting Lab: [facility] [address] Performing Lab: [facility] [address] SED RATE 10 5-15 July 13, 2022 11:00 AM [facility] CBC & DIFF Specimen Type: BLOOD Comment: Automated Differential Performed Ordering Provider: WHITNEY ANDERSON Report Released Date/Time: July 13, 2022 11:04 AM Reporting Lab: [facility] [address] Performing Lab: [facility] [address] WBC 8.82 4.0-11.0 RBC 3.89 L 4.6-6.2 [...] 0.03 0-0.1 July 13, 2022 11:00 AM [facility] COMPREHENSIVE METABOLIC PANEL+MG Specimen Type: PLASMA Comment: Automated Differential Performed Ordering Provider: WHITNEY ANDERSON Report Released Date/Time: July 13, 2022 11:04 AM Reporting Lab: [facility] [address] Performing Lab: [facility] [address] CREATININE 1.0 0.7-1.2 UREA NITROGEN 16 8-26 [...] Source July 17, 2022 11:20 PM 7 [facility] July 17, 2022 11:18 PM 7 [facility] July 17, 2022 11:11 PM 97.9 F 72 /min 122/77 mm[Hg] 18 /min 95 % 0 [facility] July 17, 2022 10:38 PM 7 [facility] July 17, 2022 08:55 PM 7 [facility] Social History: Smoking Status (Most current) and Tobacco Use (All prior to encounter date) This section includes the most current, and the historical, smoking and tobacco- related health factors from the PA facility where the Encounter took place. Current Smoking Status This section includes the most current smoking, or tobacco-related health factor, from the PA facility where the Encounter took place. Date/Time Current Smoking Status Comment Facil ity May 10, 2022 09:15 AM VA-TOBACCO FORMER USER [facility] Tobacco Use History This section includes a history of the smoking, or tobacco-related health factors, that were collected on or before the date of the Encounter. The data comes from the PA facility where the Encounter took place. Date/Time Smoking Status/Tobacco Use Comment F acility May 10, 2022 09:15 AM VA-TOBACCO QUIT 15 YRS OR MORE [facility] May 11, 2021 09:15 AM VA-TOBACCO FORMER USER [facility] May 11, 2021 09:15 AM VA-TOBACCO QUIT 15 YRS OR MORE [facility] Nov 22, 2018 01:36 PM VA-TOBACCO NEVER USED [facility] Nov 12, 2017 07:35 AM FORMER TOBACCO USER 7Y OR GREATE R [facility] Nov 06, 2016 09:05 AM FORMER TOBACCO USER 7Y OR GREATE R [facility] Sep 27, 2015 09:42 AM FORMER TOBACCO USER 7Y OR GREATE R [facility] Sep 25, 2014 07:55 AM FORMER TOBACCO USER 7Y OR GREATE R [facility] Sep 08, 2013 07:48 AM FORMER TOBACCO USER 7Y OR GREATE R [facility] July 09, 2012 09:20 AM FORMER TOBACCO USE >1Y <7Y [facility] Jun 06, 2011 07:53 AM FORMER TOBACCO USE >1Y <7Y [facility] Sep 09, 2009 03:03 PM FORMER TOBACCO USE >1Y <7Y [facility] Aug 11, 2008 01:06 PM FORMER TOBACCO USE <1Y [facility] Sep 19, 2007 02:52 PM CURRENT TOBACCO USER [facility] Sep 03, 2006 03:32 PM CURRENT TOBACCO USER [facility] Advance Directives: All historical and current Section Date Range: From patient's date of to the date document was created. This section includes ALL of a patient's completed or amended PA Advance and Rescinded Directives. The entries below [...] the Encounter. The data comes from all PA treatment facilities. Date/Time Radiology Report Provider Source July 20, 2022 07:50 AM CHEST 1 VIEW: MARYJO WAGNER [id number] -1950 M Exm Date: JULY 20, 2022@07:50 Req Phys: MACKENZIE COTTER Pat Loc: 07-20-2022@08:26 Img Loc: MAIN X-RAY Service: PRIMARY CARE - MED OFFICE (Case [id number] COMPLETE) CHEST 1 VIEW (RAD Detailed) CPT:41973 Proc Modifiers : PORTABLE EXAM Reason for Study: see below. thanks. Clinical History: IS NOT under investigation for COVID-19 or is COVID-19 negative Please further evaluate for acute airspace disease given o2 requirement. Thanks. Responsible provider name and phone number to notify for critical findings if other than user placing the order and pager listed below: User placing orders pager: [phone] same LAST CREATININE 0.9 (07/19/22) Report Status: Verified Date Reported: JULY 20, 2022 Date Verified: JULY 20, 2022 Program Coordinator [employer] E-Sig:/ES/JAMIE MIGUEL MD Report: EXAM: CHEST 1 [...] pager listed below: User placing orders pager: [phone] same LAST CREATININE 0. COMPARISON: Chest CT [...] Primary Interpreting Staff: JAMIE MIGUEL MD, RADIOLOGIST (Program Coordinator [employer] Education) /JAMIE FRANCES [facility] July 18, 2022 12:59 PM ELBOW LEFT 2 VIEWS: MARYJO WAGNER [id number] -1950 M Exm Date: JULY 18, 2022@12:59 Req Phys: LEIF BALBUENA Pat Loc: OR-PACU/07-18-2022@13:59 Img Loc: MAIN X-RAY Service: ZZSURGICAL SERVICE (Case [id number] COMPLETE) ELBOW LEFT 2 VIEWS (RAD Detailed) CPT:57824 Proc Modifiers : PORTABLE EXAM, OPERATING ROOM EXAM Reason for Study: post-op Clinical History: post-op Report Status: Verified Date Reported: JULY 18, 2022 Date Verified: JULY 18, 2022 Program Coordinator [employer] E-Sig:/ES/JAKUB LEE MD Report: EXAM: ELBOW LEFT [...] Primary Interpreting Staff: JAKUB LEE MD, RADIOLOGIST (Program Coordinator [employer] Education) /CARE HOME JAKUB LEE [facility] July 18, 2022 07:30 AM FLUORO UP TO 1 HR PHYSICIAN TIME: MARYJO WAGNER [id number] -1950 M Exm Date: JULY 18, 2022@07:30 Req Phys: LEIF BALBUENA Pat Loc: OR-PACU/07-18-2022@13:14 Img Loc: MAIN X-RAY Service: PRIMARY CARE - MED OFFICE (Case [id number] COMPLETE) FLUORO UP TO 1 HR PHYSICIAN TIME (RAD Detailed) CPT:80244 Proc Modifiers : PORTABLE EXAM, OPERATING ROOM EXAM, LEFT Reason for Study: Left distal humerous ORIF Clinical History: OR 7 Pathologic distal humeral shaft fracture Responsible provider name and phone number to notify for critical findings if other than user placing the order and pager listed below: User placing orders pager: Henry BALBUENA [phone] LAST CREATININE 0.8 (07/17/22) Report Status: Electronically Filed Date Reported: JULY 18, 2022 Report: Impression: Please see the full report for this procedure in CPRS patient progress notes. Fluoro guidance was provided during this procedure, but the study was not reviewed or verified by a [facility] radiologist. The radiation exposure dose has been recorded in the patient's chart. If you are unable to view this data, please contact the Imaging Department. VERIFIED BY: / *ELECTRONICALLY FILED* [facility] July 17, 2022 03:28 PM ABDOMINAL AORTOGRAM (P): MARYJO WAGNER [id number] -1950 M Exm Date: JULY 17, 2022@15:28 Req Phys: MALCOM LANGLEY Pat Loc: 07-17-2022@15:54 Img Loc: INTERVENTIONAL RADIOLOGY Service: PRIMARY CARE - MED OFFICE (Case [id number] COMPLETE) ANGIOGRAPHY EXTREMITY UNILAT S&I (ANI Detailed) CPT:45179 Reason for Study: codes (Case 528 COMPLETE) IR AORTOGRAPHY ABDOMINAL W/O RUNO(ANI Detailed) CPT:95597 (Case 529 COMPLETE) IR FOREIGN BODY REMOVAL INTRAVASC(ANI Detailed) CPT:97946 (Case 532 COMPLETE) IR NEEDLE/INTRACATH PLACEMENT EXT(ANI Detailed) CPT:23068 (Case 533 COMPLETE) IR PLACEMENT OCCLUSIVE DEVICE SAM(ANI Detailed) CPT:G0269 Clinical History: codes Report Status: Verified Date Reported: JULY 17, 2022 Date Verified: JULY 17, 2022 Program Coordinator [employer] E-Sig:/ES/MALCOM LANGLEY MD Report: RADIOLOGIST: Malcom Langley [...] angiogram and runoff. 12. Closure of right POURING CRANE OPERATOR with Angio-Seal device. HISTORY: Metastatic renal [...] Sheath removed over guidewire and a 5 nicaraguan vascular sheath advanced over guidewire into the artery. An H1 catheter was advanced along with the guidewire into the thoracic arch and the left subclavian artery was selected. Catheter and the guidewire were advanced into the left brachial artery. The 5 Zimbabwean sheath was exchanged for a 6 Zimbabwean sheath that was advanced into the left [...] arteries. Sheath and catheters were removed and POURING CRANE OPERATOR arteriotomy was closed using Angioseal. There is patent hemostasis. No bleeding or hematoma noted. Sterile dressing applied. 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 Primary Interpreting Staff: MALCOM LANGLEY MD, INTERVENTIONAL RADIOLOGIST (Program Coordinator [employer] Education) /MALCOM HE [facility] July 17, 2022 07:30 AM RENAL ARTERY EMBOLIZATION (P): MARYJO WAGNER [id number] -1950 M Exm Date: JULY 17, 2022@07:30 Req Phys: WESTON VASQUEZ Pat Loc: 07-17-2022@15:46 Img Loc: INTERVENTIONAL RADIOLOGY Service: PRIMARY CARE - MED OFFICE (Case 130 COMPLETE) IR TRANSCATH EMBOLIZATION W/ANGIO(ANI Detailed) CPT:92203 Reason for Study: embolization of RCC mets to left humerus (Case 131 COMPLETE) IR ARTERIAL EMBOLIZATION OTHER TH(ANI Detailed) CPT:01567 (Case 132 COMPLETE) IR US GUIDANCE VASCULAR ACCESS (ANI Detailed) CPT:43825 Clinical History: IS NOT under investigation for [...] pager listed below: User placing orders pager: [phone] LAST CREATININE 1.0 (07/13/22) Report Status: Verified Date Reported: JULY 17, 2022 Date Verified: JULY 17, 2022 Program Coordinator [employer] E-Sig:/ES/MALCOM LANGLEY MD Report: RADIOLOGIST: Malcom Langley [...] angiogram and runoff. 12. Closure of right POURING CRANE OPERATOR with Angio-Seal device. HISTORY: Metastatic renal [...] Sheath removed over guidewire and a 5 nicaraguan vascular sheath advanced over guidewire into the artery. An H1 catheter was advanced along with the guidewire into the thoracic arch and the left subclavian artery was selected. Catheter and the guidewire were advanced into the left brachial artery. The 5 Zimbabwean sheath was exchanged for a 6 Zimbabwean sheath that was advanced into the left [...] arteries. Sheath and catheters were removed and POURING CRANE OPERATOR arteriotomy was closed using Angioseal. There is patent hemostasis. No bleeding or hematoma noted. Sterile dressing applied. 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 Primary Interpreting Staff: MALCOM LANGLEY MD, INTERVENTIONAL RADIOLOGIST (Program Coordinator Executive Education) /MALCOM HE [facility] July 14, 2022 06:44 AM HUMERUS LEFT MINIMUM 2 VIEWS: MARYJO WAGNER [id number] -1950 M Exm Date: JULY 14, 2022@06:44 Req Phys: PEDROHERBERTJAIRO [facility] Loc: 07-14-2022@07:13 Img Loc: MAIN X-RAY Service: PRIMARY CARE - MED OFFICE (Case [id number] COMPLETE) HUMERUS LEFT MINIMUM 2 VIEWS (RAD Detailed) CPT:34773 Reason for Study: post reduction Clinical History: Report Status: Verified Date Reported: JULY 14, 2022 Date Verified: JULY 14, 2022 Program Coordinator [employer] E-Sig: Report: HUMERUS LEFT MINIMUM 2 VIEWS HISTORY: post reduction COMPARISON: 07/13/2022 TECHNIQUE: 2 view(s) of the humerus, submitted to the [place] National Teleradiology Program (NTP) for interpretation. FINDINGS: [...] less likely. READING PHYSICIAN: Xavier Merrill MD -[id number] 07/14/2022 5:11 PDT [facility] National Teleradiology Program [phone] (For Medical Practitioner Use Only) Attention Patients / Veterans: If you have questions or concerns about these test results, please contact your ordering provider or primary care team. Primary Interpreting Staff: RADIOLOGY,OUTSIDE SERVICE, Staff Physician / RADIOLOGY,OUTSIDE SERVICE [facility] July 13, 2022 10:07 AM ELBOW LEFT 3 OR MORE VIEWS: BERNARDMARYJO CAVAZOS [id number] -1950 M Ex Date: JULY 13, 2022@10:07 Req Phys: WHITNEY ANDERSON Pat Loc: [facility] EMERGENCY DEPT WALK-IN (Re Img Loc: MAIN X-RAY Service: Unknown (Case [id number] COMPLETE) ELBOW LEFT 3 OR MORE VIEWS (RAD Detailed) CPT:99579 Proc Modifiers : LEFT Reason for Study: [...] pager listed below: User placing orders pager: [phone] LAST CREATININE 0.8 (05/10/22) Report Status: Verified Date Reported: JULY 13, 2022 Date Verified: JULY 13, 2022 Program Coordinator [employer] Education E-Sig:/ES/ALBINA COWAN MD, FACR, CCD Report: EXAMINATION: [...] Staff: ALBINA COWAN MD, FACR, STAFF RADIOLOGIST (Program Coordinator Executive Education) /BSF ALBINA COWAN [facility] July 13, 2022 10:07 AM HUMERUS LEFT MINIMUM 2 VIEWS: MARYJO WAGNER [id number] -1950 M Exm Date: JULY 13, 2022@10:07 Req Phys: WHITNEY ANDERSON Pat Loc: [facility] EMERGENCY DEPT WALK-IN (Re Img Loc: MAIN X-RAY Service: Unknown (Case [id number] COMPLETE) HUMERUS LEFT MINIMUM 2 VIEWS (RAD Detailed) CPT:02128 Proc Modifiers : LEFT Reason for Study: [...] pager listed below: User placing orders pager: [phone] LAST CREATININE 0.8 (05/10/22) Report Status: Verified Date Reported: JULY 13, 2022 Date Verified: JULY 13, 2022 Program Coordinator [employer] E-Sig:/ES/ALBINA COWAN MD, FACR, CCD Report: EXAMINATION: [...] Staff: ALBINA COWAN MD, FACR, STAFF RADIOLOGIST (Program Coordinator Executive Education) /ALBINA NATHAN [facility] July 13, 2022 10:07 AM FOREARM LEFT 2 VIEWS: MARYJO WAGNER [id number] -1950 M Exm Date: JULY 13, 2022@10:07 Req Phys: WHITNEY ANDERSON Pat Loc: [facility] EMERGENCY DEPT WALK-IN (Re Img Loc: MAIN X-RAY Service: Unknown (Case [id number] COMPLETE) FOREARM LEFT 2 VIEWS (RAD Detailed) CPT:26237 Proc Modifiers : LEFT Reason for Study: [...] pager listed below: User placing orders pager: [phone] LAST CREATININE 0.8 (05/10/22) Report Status: Verified Date Reported: JULY 13, 2022 Date Verified: JULY 13, 2022 Program Coordinator [employer] Education E-Sig:/ES/ALBINA COWAN MD, FACR, [facility] Report: EXAMINATION: FOREARM LEFT 2 VIEWS 07/13/2022 [...] Staff: ALBINA COWAN MD, FACR, STAFF RADIOLOGIST (Program Coordinator Executive Education) /ALBINA NATHAN [facility] Pathology Reports: +/- 30 days of the [...] the Encounter. The data comes from all PA treatment facilities. Date/Time Pathology Report Provider Source July 13, 2022 04:06 PM LR SURGICAL PATHOL OGY REPORT: LOCAL TITLE: LR SURGICAL PATHOLOGY REPORT STANDARD TITLE: PATHOLOGY REPORT DATE OF NOTE: JULY 21, 2022@14:37:27 ENTRY DATE: JULY 21, 2022@14:37:27 AUTHOR: JIAN SANDOVAL EXP COSIGNER: URGENCY: STATUS: COMPLETED $APHDR Reporting Lab: [facility] [CLIA# [id number]] [place] [address] - - - - - - - [...] is entirely submitted in A-D. CE. (D). [facility] FROZEN SECTION DIAGNOSES: SPEC. 1 - left [...] SANDOVAL STAFF PATHOLOGIST, PATHOLOGY & LABORATORY [place] [facility] [place] Signed July 21, 2022@14:37 Performing Laboratory: Surgical Pathology Report Performed By: [facility] [CLIA# [id number]] [place] [address] $FTR - - - - - - [...] - - MARYJO WAGNER STANDARD FORM 515 ID:[id number] SEX:M :1950 AGE: 72 LOC:[facility] PATHOLOGY PRO FEE ADM:June DX:PATHOLOGIC FX LF HUMERUS PCP: Leif Balbuena MD /sangita/ JIAN SANDOVAL STAFF PATHOLOGIST, PATHOLOGY & LABORATORY [place] [facility] [place] Signed: 07/21/2022 14:37 JIAN SANDOVAL [facility] Encounter Notes: All associated encounter notes This section contains the clinical notes associated to the Encounter. Date/Time Encounter Note(s) Provider Source July 17, 2022 01:05 PM PROCEDURE NOTE: LOCAL TITLE: MODERATE SEDATION POST-SEDATION NOTE STANDARD TITLE: PROCEDURE NOTE DATE OF NOTE: JULY 17, 2022@13:05 ENTRY DATE: JULY 18, 2022@12:57:09 AUTHOR: CONCEPCIÓN LOREDO EXP COSIGNER: URGENCY: STATUS: COMPLETED VistA Imaging - Scanned Document See [employer]. /sangita/ [facility]N [facility] Signed: 07/18/2022 12:57 CONCEPCIÓN LOREDO [facility]
--- OUTSIDE RECORDS SUMMARY | 2023-03-24 08:40 | XMS_ITS ---
[facility]OSPITALIZATION [facility] Encounter Summary Created on: March 24, 2023 MARYJO WAGNER : 1950 Sex: Male 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 Address [address] [place] [id number] Support Name Relationship Address Phone DOREEN WAGNER Next of Kin [address] [place] [phone] DOREEN Emergency Contact [address] [place] [phone] Insurance Providers: All historical and current [...] Name Patient's Relationship to Policy [place] [employer] [facility] (WNR) MEDICARE ADVANTAGE [facility] (WNR) June 26, 2016 [id number] JOAN WAGNER PATIENT [employer]NA MCR (WNR) MEDICARE ADVANTAGE [facility] (WNR) June 26, 2016 [id number] BERNARDJOAN PATIENT [employer]MANA MCR (WNR) MEDICARE ADVANTAGE [facility] (WNR) June 26, 2016 [id number] [phone] CARSONJOAN ROWELL PATIENT Selected Encounter This section includes the information on record at [facility] for the Encounter. Date/Time Encounter Type Encounter Description Reason Pro vider Source July 13, 2022 04:06 PM Inpatient Visit [facility]ATION [facility] Encounter Template Text not used by [facility] [...] The data comes from all [facility]. Appointment Date/Time Appointment Type Appointme nt Facility Name Jul 28, 2022 10:45 AM AMBULATORY - MEDICINE [facility] Aug 13, 2022 06:13 PM AMBULATORY - MEDICINE [facility] Aug 23, 2022 09:30 AM AMBULATORY - SURGERY [facility] Aug 23, 2022 09:45 AM [facility] Aug 23, 2022 10:30 AM AMBULATORY - MEDICINE [facility] Aug 23, 2022 10:31 AM AMBULATORY - MEDICINE [facility] Sep 06, 2022 10:15 AM AMBULATORY - SURGERY [facility] Oct 25, 2022 07:00 AM [facility] Oct 25, 2022 07:30 AM AMBULATORY - SURGERY [facility] Oct 25, 2022 09:00 AM AMBULATORY - SURGERY [facility] Active, Pending, and Scheduled Orders [...] The data comes from all [facility]. Test Date/Time Test Type Test Details Facility Name Jun 12, 2022 12:00 AM Laboratory - Chemistry Order CBC & DIFF BLOOD ONCO SP [facility]CE [facility] Jun 12, 2022 12:00 AM Laboratory - Chemistry Order COMPREHENSIVE METABOLIC PANEL+MG PLASMA ONCO SP [facility]CE [facility] Jun 12, 2022 12:00 AM Laboratory - Chemistry Order TSH W/REFLEX TO FREE T4 PLASMA ONCO SP ONCE [facility] July 14, 2022 12:00 AM Laboratory - Blood Bank Order ABO/RH - LAB BLOOD [facility] July 14, 2022 02:05 PM Laboratory - Blood Bank Order TYPE & SCREEN - LAB BLOOD [facility] Aug 07, 2022 11:23 AM Laboratory - Chemistry Order DRUG SCREEN PANEL,URINE URINE [facility] Aug 23, 2022 10:47 AM Laboratory - Chemistry Order URINALYSIS URINE ER STAT [facility] Lab Results: +/- 30 [...] Range Comment July 19, 2022 04:40 PM [facility] FINGERSTICK GLUCOSE Specimen Type: BLOOD Comment: Save Result Nurse Notified Ordering Provider: MACKENZIE COTTER Report Released Date/Time: July 19, 2022 05:00 PM Reporting Lab: [facility] [id number] Performing Lab: [facility] [address] FINGERSTICK GLUCOSE 132 70-100 July 19, 2022 07:13 AM [facility] COMPREHENSIVE METABOLIC PANEL+MG Specimen Type: PLASMA No comment entered. Ordering Provider: MACKENZIE COTTER Report Released Date/Time: July 18, 2022 05:40 PM Reporting Lab: [facility] [address] Performing Lab: [facility] [address] CREATININE 0.9 0.7-1.2 UREA NITROGEN 24 8-26 [...] See_Commen t July 19, 2022 07:13 AM [facility] IRON GROUP Specimen Type: SERUM No comment entered. Ordering Provider: MACKENZIE COTTER Report Released Date/Time: July 18, 2022 05:40 PM Reporting Lab: [facility] [address] Performing Lab: [facility] [address] IRON 28 L 65-175 TIBC,CALCULATE D 223 L 250-425 FERRITIN 73.7 21.8-274.7 IRON SATURATION 13 L 20-50 TRANSFERRIN 178 163-382 July 19, 2022 07:13 AM [facility] CBC Specimen Type: BLOOD No comment entered. Ordering Provider: MACKENZIE COTTER Report Released Date/Time: July 18, 2022 05:40 PM Reporting Lab: [facility] [address] Performing Lab: [facility] [address] WBC 7.73 4.0-11.0 RBC 2.42 L 4.6-6.2 HGB 8.2 L 13.5-17.9 HCT 23.8 L 41-54 MCV 98.3 80-100 MCH 33.9 H 27-33 MCHC 34.5 32.0-37.5 PLT 155 150-400 MPV 9.6 7.4-10.4 RDW 13.5 11.5-14.5 July 19, 2022 05:44 AM [facility] FINGERSTICK GLUCOSE Specimen Type: BLOOD Comment: Save Result Nurse Notified Ordering Provider: MACKENZIE COTTER Report Released Date/Time: July 19, 2022 11:54 AM Reporting Lab: [facility] [address] Performing Lab: [facility] [address] FINGERSTICK GLUCOSE 137 70-100 July 18, 2022 10:51 PM [facility] FINGERSTICK GLUCOSE Specimen Type: BLOOD Comment: Save Result Nurse Notified Ordering Provider: MACKENZIE COTTER Report Released Date/Time: July 18, 2022 11:06 PM Reporting Lab: [facility] [address] Performing Lab: [facility] [address] FINGERSTICK GLUCOSE 163 70-100 July 17, 2022 06:51 AM [facility] BASIC METABOLIC PANEL+MG Specimen Type: PLASMA No comment entered. Ordering Provider: DANG VALLE Report Released Date/Time: July 16, 2022 09:37 AM Reporting Lab: [facility] [address] Performing Lab: [facility] [address] CREATININE 0.8 0.7-1.2 UREA NITROGEN 23 8-26 GLUCOSE 107 H 70-100 SODIUM 139 136-145 POTASSIUM 3.9 3.5-5.1 CHLORIDE 106 98-107 CO2 28 22-29 CALCIUM 9.1 8.4-10.2 MAGNESIUM 1.9 1.6-2.6 ANION GAP 5 5-15 .CREAT EGFR(CKD-EPI) >90 See_Commen t July 17, 2022 06:51 AM [facility] PROTHROMBIN TIME/INR Specimen Type: PLASMA No comment entered. Ordering Provider: DANG VALLE R Report Released Date/Time: July 16, 2022 09:37 AM Reporting Lab: [facility] [address] Performing Lab: [facility] [address] .INR 1.0 0.8-1.1 .PT 11.5 9.4-12.5 July 17, 2022 06:51 AM [facility] CBC Specimen Type: BLOOD No comment entered. Ordering Provider: DANG VALLE R Report Released Date/Time: July 16, 2022 09:37 AM Reporting Lab: [facility] [address] Performing Lab: [facility] [address] WBC 6.05 4.0-11.0 RBC 3.77 L 4.6-6.2 HGB 12.7 L 13.5-17.9 HCT 36.0 L 41-54 MCV 95.5 80-100 MCH 33.7 H 27-33 MCHC 35.3 32.0-37.5 PLT 179 150-400 MPV 9.4 7.4-10.4 RDW 13.2 11.5-14.5 July 13, 2022 11:22 AM [facility] COVID-19 AND FLU/RSV DIAG PANEL(CEPHEID) Specimen Typ e: NASOPHARYNGEAL Comment: Cepheid GeneXpert (618) Ordering Provider: WHITNEY ANDERSON Report Released Date/Time: July 13, 2022 11:04 AM Reporting Lab: [facility] [address] Performing Lab: [facility] [address] COVID-19 (CEPHEID) Not Detected Not Detected INFLUENZA A (PCR) Not Detected Not Detected INFLUENZA B (PCR) Not Detected Not Detected RSV (PCR) Not Detected Not Detected July 13, 2022 11:00 AM [facility] C-REACTIVE PROTEIN Specimen Type: SERUM Comment: Automated Differential Performed Ordering Provider: WHITNEY ANDERSON Report Released Date/Time: July 13, 2022 11:04 AM Reporting Lab: [facility] [address] Performing Lab: [facility] [address] C-REACTIVE PROTEIN 1.17 <5.00 July 13, 2022 11:00 AM [facility] PROTHROMBIN TIME/INR Specimen Type: PLASMA No comment entered. Ordering Provider: WHITNEY ANDERSON Report Released Date/Time: July 13, 2022 11:04 AM Reporting Lab: [facility] [address] Performing Lab: [facility] [address] .INR 0.9 0.8-1.1 .PT 11.1 9.4-12.5 July 13, 2022 11:00 AM [facility] SED RATE Specimen Type: BLOOD No comment entered. Ordering Provider: WHITNEY ANDERSON Report Released Date/Time: July 13, 2022 11:04 AM Reporting Lab: [facility] [address] Performing Lab: [facility] [address] SED RATE 10 5-15 July 13, 2022 11:00 AM [facility] CBC & DIFF Specimen Type: BLOOD Comment: Automated Differential Performed Ordering Provider: WHITNEY ANDERSON Report Released Date/Time: July 13, 2022 11:04 AM Reporting Lab: [facility] [address] Performing Lab: [facility] [address] WBC 8.82 4.0-11.0 RBC 3.89 L 4.6-6.2 [...] 0.03 0-0.1 July 13, 2022 11:00 AM [facility] COMPREHENSIVE METABOLIC PANEL+MG Specimen Type: PLASMA Comment: Automated Differential Performed Ordering Provider: WHITNEY ANDERSON Report Released Date/Time: July 13, 2022 11:04 AM Reporting Lab: [facility] [address] Performing Lab: [facility] [address] CREATININE 1.0 0.7-1.2 UREA NITROGEN 16 8-26 [...] Height Weight Body Mass Index Source July 13, 2022 11:25 PM 8 [facility] July 13, 2022 11:18 PM 97.8 F 60 /min 169/90 mm[Hg] 20 /min 96 % 7 [facility] July 13, 2022 07:29 PM 97.9 F 64 /min 152/78 mm[Hg] 18 /min 93 % 0 [facility] July 13, 2022 06:00 PM 4 [facility] July 13, 2022 05:10 PM 8 [facility] Social History: Smoking Status (Most [...] 10, 2022 09:15 AM [place]-TOBACCO FORMER USER [facility] Tobacco Use History This section includes a history of the smoking, or tobacco-related health factors, that were collected on or before the date of the Encounter. The data comes from the [facility] facility where the Encounter took place. Date/Time Smoking Status/Tobacco Use Comment F acility May 10, 2022 09:15 AM [place]-TOBACCO QUIT 15 YRS OR MORE [facility] May 11, 2021 09:15 AM VA-TOBACCO FORMER USER [facility] May 11, 2021 09:15 AM [place]-TOBACCO QUIT 15 YRS OR MORE [facility] Nov 22, 2018 01:36 PM VA-TOBACCO NEVER USED [facility] Nov 12, 2017 07:35 AM FORMER TOBACCO USER 7Y OR GREATE R [facility] Nov 06, 2016 09:05 AM FORMER TOBACCO USER 7Y OR GREATE R [facility] Sep 27, 2015 09:42 AM FORMER TOBACCO USER 7Y OR GREATE R [facility] Sep 25, 2014 07:55 AM FORMER TOBACCO USER 7Y OR GREATE R [facility] Sep 08, 2013 07:48 AM FORMER TOBACCO USER 7Y OR GREATE R [facility] July 09, 2012 09:20 AM FORMER TOBACCO USE >1Y <7Y [facility] Jun 06, 2011 07:53 AM FORMER TOBACCO USE >1Y <7Y [facility] Sep 09, 2009 03:03 PM FORMER TOBACCO USE >1Y <7Y [facility] Aug 11, 2008 01:06 PM FORMER TOBACCO USE <1Y [facility] Sep 19, 2007 02:52 PM CURRENT TOBACCO USER [facility] Sep 03, 2006 03:32 PM CURRENT TOBACCO USER [facility] Advance Directives: All historical and current [...] Mar 18, 2003 ADVANCE DIRECTIVE FARHAT MELGAR [facility] Radiology Reports: +/- 30 days [...] 07:50 AM CHEST 1 VIEW: MARYJO WAGNER [id number] -1950 M Exm Date: JULY 20, 2022@07:50 Req Phys: MACKENZIE COTTER Pat Loc: 07-20-2022@08:26 Img Loc: MAIN X-RAY Service: PRIMARY CARE - MED OFFICE (Case [id number] COMPLETE) CHEST 1 VIEW (RAD Detailed) CPT:65704 Proc Modifiers : PORTABLE EXAM Reason for Study: see below. thanks. Clinical History: IS NOT under investigation for COVID-19 or is COVID-19 negative Please further evaluate for acute airspace disease given o2 requirement. Thanks. Responsible provider name and phone number to notify for critical findings if other than user placing the order and pager listed below: User placing orders pager: [phone] same LAST CREATININE 0.9 (07/19/22) Report Status: Verified Date Reported: JULY 20, 2022 Date Verified: JULY 20, 2022 Client Finance Analyst E-Sig:/ES/JAMIE MIGUEL MD Report: EXAM: CHEST 1 VIEW HISTORY: see below. thanks. Reason for Study: see below. thanks. [place] IS NOT under investigation for COVID-19 or is COVID-19 negative Please further evaluate for acute airspace disease given o2 requirement. Thanks. Responsible provider name and phone number to notify for critical findings if other than user placing the order and pager listed below: User placing orders pager: [phone] same LAST CREATININE 0. COMPARISON: Chest CT [...] Primary Interpreting Staff: JAMIE MIGUEL MD, RADIOLOGIST (Client Finance Analyst) /JAMIE [facility] July 18, 2022 12:59 PM ELBOW LEFT 2 VIEWS: MARYJO WAGNER [id number] -1950 M Exm Date: JULY 18, 2022@12:59 Req Phys: LEIF BALBUENA Loc: OR-PACU/07-18-2022@13:59 Img Loc: MAIN X-RAY Service: ZZSURGICAL SERVICE (Case [id number] COMPLETE) ELBOW LEFT 2 VIEWS (RAD Detailed) CPT:77551 Proc Modifiers : PORTABLE EXAM, OPERATING ROOM EXAM Reason for Study: post-op Clinical History: post-op Report Status: Verified Date Reported: JULY 18, 2022 Date Verified: JULY 18, 2022 Client Finance Analyst E-Sig:/ES/JAKUB LEE MD Report: EXAM: ELBOW LEFT [...] Primary Interpreting Staff: JAKUB LEE MD, RADIOLOGIST (Client Finance Analyst) /JAKUB LUCERO [facility] July 18, 2022 07:30 AM FLUORO UP TO 1 HR PHYSICIAN TIME: MARYJO WAGNER [id number] -1950 M Exm Date: JULY 18, 2022@07:30 Req Phys: LEIF BALBUENA Loc: OR-PACU/07-18-2022@13:14 Img Loc: MAIN X-RAY Service: PRIMARY CARE - MED OFFICE (Case [id number] COMPLETE) FLUORO UP TO 1 HR PHYSICIAN TIME (RAD Detailed) CPT:53585 Proc Modifiers : PORTABLE EXAM, OPERATING ROOM EXAM, LEFT Reason for Study: Left distal humerous ORIF Clinical History: OR 7 Pathologic distal humeral shaft fracture Responsible provider name and phone number to notify for critical findings if other than user placing the order and pager listed below: User placing orders pager: Henry BALBUENA [phone] LAST CREATININE 0.8 (07/17/22) Report Status: Electronically [...] Imaging Department. VERIFIED BY: / *ELECTRONICALLY FILED* [facility] July 17, 2022 03:28 PM ABDOMINAL AORTOGRAM (P): MARYJO WAGNER [id number] -1950 M Exm Date: JULY 17, 2022@15:28 Req Phys: MALCOM LANGLEY [facility] Loc: 07-17-2022@15:54 Img Loc: INTERVENTIONAL RADIOLOGY Service: PRIMARY CARE - MED OFFICE (Case [id number] COMPLETE) ANGIOGRAPHY EXTREMITY UNILAT S&I (ANI Detailed) CPT:44719 Reason for Study: codes (Case 528 COMPLETE) IR AORTOGRAPHY ABDOMINAL W/O RUNO(ANI Detailed) CPT:18391 (Case 529 COMPLETE) IR FOREIGN BODY REMOVAL INTRAVASC(ANI Detailed) CPT:72803 (Case 532 COMPLETE) IR NEEDLE/INTRACATH PLACEMENT EXT(ANI Detailed) CPT:28981 (Case 533 COMPLETE) IR PLACEMENT OCCLUSIVE DEVICE SAM(ANI Detailed) CPT:G0269 Clinical History: codes Report Status: Verified Date Reported: JULY 17, 2022 Date Verified: JULY 17, 2022 Client Finance Analyst E-Sig:/ES/MALCOM LANGLEY MD Report: RADIOLOGIST: Malcom Langley [...] angiogram and runoff. 12. Closure of right SUPERVISORY CLERK with Angio-Seal device. HISTORY: Metastatic renal cell [...] into the left brachial artery. The 5 Irish sheath was exchanged for a 6 Irish sheath that was advanced into the left [...] arteries. Sheath and catheters were removed and SUPERVISORY CLERK arteriotomy was closed using Angioseal. There is patent hemostasis. No bleeding or hematoma noted. Sterile dressing applied. 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 Primary Interpreting Staff: MALCOM LANGLEY MD, INTERVENTIONAL RADIOLOGIST (Client Finance Analyst) /MALCOM [facility] July 17, 2022 07:30 AM RENAL ARTERY EMBOLIZATION (P): MARYJO WAGNER [id number] -1950 M Exm Date: JULY 17, 2022@07:30 Req Phys: WESTON VASQUEZ Pat Loc: 07-17-2022@15:46 Img Loc: INTERVENTIONAL RADIOLOGY Service: PRIMARY CARE - MED OFFICE (Case [id number] COMPLETE) IR TRANSCATH EMBOLIZATION W/ANGIO(ANI Detailed) CPT:70011 Reason for Study: embolization of RCC mets to left humerus (Case 131 COMPLETE) IR ARTERIAL EMBOLIZATION OTHER TH(ANI Detailed) CPT:51824 (Case 132 COMPLETE) IR US GUIDANCE VASCULAR ACCESS (ANI Detailed) CPT:27588 Clinical History: [place] IS NOT under investigation for COVID-19 or [...] pager listed below: User placing orders pager: [phone] LAST CREATININE 1.0 (07/13/22) Report Status: Verified Date Reported: JULY 17, 2022 Date Verified: JULY 17, 2022 Client Finance Analyst E-Sig:/ES/MALCOM LANGLEY MD Report: RADIOLOGIST: Malcom Langley [...] angiogram and runoff. 12. Closure of right SUPERVISORY CLERK with Angio-Seal device. HISTORY: Metastatic renal cell [...] into the left brachial artery. The 5 Irish sheath was exchanged for a 6 Irish sheath that was advanced into the left [...] arteries. Sheath and catheters were removed and SUPERVISORY CLERK arteriotomy was closed using Angioseal. There is patent hemostasis. No bleeding or hematoma noted. Sterile dressing applied. 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 Primary Interpreting Staff: MALCOM LANGLEY MD, INTERVENTIONAL RADIOLOGIST (Client Finance Analyst) /MALCOM HE [facility] July 14, 2022 06:44 AM HUMERUS LEFT MINIMUM 2 VIEWS: MARYJO WAGNER [id number] -1950 M Exm Date: JULY 14, 2022@06:44 Req Phys: WESTON VASQUEZ [facility] Loc: 07-14-2022@07:13 Img Loc: MAIN X-RAY Service: PRIMARY CARE - MED OFFICE (Case [id number] COMPLETE) HUMERUS LEFT MINIMUM 2 VIEWS (RAD Detailed) CPT:75540 Reason for Study: post reduction Clinical History: Report Status: Verified Date Reported: JULY 14, 2022 Date Verified: JULY 14, 2022 Client Finance Analyst E-Sig: Report: HUMERUS LEFT MINIMUM 2 VIEWS [...] less likely. READING PHYSICIAN: Xavier Merrill MD -[phone] 07/14/2022 5:11 PDT [facility] National Teleradiology Program [phone] (For Medical Practitioner Use Only) Attention Patients / Veterans: If you have questions or concerns about these test results, please contact your ordering provider or primary care team. Primary Interpreting Staff: RADIOLOGY,OUTSIDE SERVICE, Staff Physician / RADIOLOGY,OUTSIDE SERVICE [facility] July 13, 2022 10:07 AM HUMERUS LEFT MINIMUM 2 VIEWS: MARYJO WAGNER [id number] -1950 M Ex Date: JULY 13, 2022@10:07 Req Phys: WHITNEY ANDERSON Pat Loc: [facility] EMERGENCY DEPT WALK-IN (Re Img Loc: MAIN X-RAY Service: Unknown (Case [id number] COMPLETE) HUMERUS LEFT MINIMUM 2 VIEWS (RAD Detailed) CPT:38123 Proc Modifiers : LEFT Reason for Study: L arm pain Clinical History: [place] IS NOT under investigation for COVID-19 or is COVID-19 negative Atraumatic left upper extremity pain that is located midshaft humerus distally to the mid forearm. Clinical concern for dislocation versus fracture versus bone mets Responsible provider name and phone number to notify for critical findings if other than user placing the order and pager listed below: User placing orders pager: [phone] LAST CREATININE 0.8 (05/10/22) Report Status: Verified Date Reported: JULY 13, 2022 Date Verified: JULY 13, 2022 Client Finance Analyst E-Sig:/SANGITA/ALBINA COWAN MD, FACR, CCD Report: EXAMINATION: [...] Staff: ALBINA COWAN MD, FACR, STAFF RADIOLOGIST (Client Finance Analyst) /BSF ALBINA COWAN [facility] July 13, 2022 10:07 AM ELBOW LEFT 3 OR MORE VIEWS: MARYJO WAGNER [id number] -1950 M Exm Date: JULY 13, 2022@10:07 Req Phys: WHITNEY ANDERSON Pat Loc: [facility] EMERGENCY DEPT WALK-IN (Re Img Loc: MAIN X-RAY Service: Unknown (Case [id number] COMPLETE) ELBOW LEFT 3 OR MORE VIEWS (RAD Detailed) CPT:35809 Proc Modifiers : LEFT Reason for Study: [...] pager listed below: User placing orders pager: [phone] LAST CREATININE 0.8 (05/10/22) Report Status: Verified Date Reported: JULY 13, 2022 Date Verified: JULY 13, 2022 Client Finance Analyst E-Sig:/SANGITA/ALBINA COWAN MD, FACR, CCD Report: EXAMINATION: [...] Staff: ALBINA COWAN MD, FACR, STAFF RADIOLOGIST (Client Finance Analyst) /ALBINA [facility] July 13, 2022 10:07 AM FOREARM LEFT 2 VIEWS: MARYJO WAGNER [id number] -1950 M Exm Date: JULY 13, 2022@10:07 Req Phys: WHITNEY ANDERSON Pat Loc: [facility] EMERGENCY DEPT WALK-IN (Re Img Loc: MAIN X-RAY Service: Unknown (Case [id number] COMPLETE) FOREARM LEFT 2 VIEWS (RAD Detailed) CPT:27822 Proc Modifiers : LEFT Reason for Study: L arm pain Clinical History: [place] IS NOT under investigation for COVID-19 or is COVID-19 negative Atraumatic left upper extremity pain that is located midshaft humerus distally to the mid forearm. Clinical concern for dislocation versus fracture versus bone mets Responsible provider name and phone number to notify for critical findings if other than user placing the order and pager listed below: User placing orders pager: [phone] LAST CREATININE 0.8 (05/10/22) Report Status: Verified Date Reported: JULY 13, 2022 Date Verified: JULY 13, 2022 Client Finance Analyst E-Sig:/ES/ALBINA COWAN MD, FACR, CCD Report: EXAMINATION: [...] Staff: ALBINA COWAN MD, FACR, STAFF RADIOLOGIST (Client Finance Analyst) /ALBINA [facility]AN [facility] Pathology Reports: +/- 30 days of [...] COSIGNER: URGENCY: STATUS: COMPLETED $APHDR Reporting Lab: [facility] [CLIA# [id number]] [place] [address] - - - - - - - [...] SANDOVAL STAFF PATHOLOGIST, PATHOLOGY & LABORATORY MED [facility] Signed July 21, 2022@14:37 Performing Laboratory: Surgical Pathology Report Performed By: [facility] [CLIA# [id number]] [place] [address] $FTR - - - - - - [...] - - MARYJO WAGNER STANDARD FORM 515 ID:[id number] SEX:M :1950 AGE: 72 LOC:[facility] PATHOLOGY PRO FEE ADM:June DX:PATHOLOGIC FX LF HUMERUS PCP: Leif Balbuena MD /sangita/ JIAN SANDOVAL STAFF PATHOLOGIST, PATHOLOGY & LABORATORY MED [facility] Signed: 07/21/2022 14:37 JIAN SANDOVAL [facility]
--- OUTSIDE RECORDS SUMMARY | 2023-03-24 08:41 | XMS_ITS | Encounter Summary ---
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 [facility] Organization Department of [facility] Address [address] [place] [address] Support Name Relationship Address Phone DOREEN WAGNER Next of Kin [address] [place] [id number] DOREEN Emergency Contact [address] [place] [phone] Insurance Providers: All historical and current [...] Name Patient's Relationship to Policy Casey HUMANA [facility] (WNR) MEDICARE [facility] ([facility]) June 26, 2016 [id number] CARSONJOAN ROWELL PATIENT [employer]MANA MCR (WNR) MEDICARE ADVANTAGE [facility] ([facility]) June 26, 2016 [id number] [phone] JOAN WAGNER KARSTEN PATIENT [employer]MANA MCR (WNR) MEDICARE ADVANTAGE [facility] (R) June 26, 2016 [id number] JOAN WAGNER KARSTEN PATIENT Selected Encounter This section includes the information on record at [place] for the Encounter. Date/Time Encounter Type Encounter Description Reason Pro vider Source July 17, 2022 01:00 AM Inpatient Visit ADMIN [employer],[facility] IHE Encounter Template Text not used [...] appointments. The data comes from all [facility]. Appointment Date/Time Appointment Type Appointme nt Facility Name Jul 28, 2022 10:45 AM [facility] Aug 13, 2022 06:13 PM [facility] Aug 23, 2022 09:30 AM AMBULATORY - SURGERY [facility] Aug 23, 2022 09:45 AM [facility] Aug 23, 2022 10:30 AM AMBULATORY - MEDICINE [facility] Aug 23, 2022 10:31 AM AMBULATORY - MEDICINE [facility] Sep 06, 2022 10:15 AM AMBULATORY - SURGERY [facility] Oct 25, 2022 07:00 AM [facility] Oct 25, 2022 07:30 AM AMBULATORY - SURGERY [facility] Oct 25, 2022 09:00 AM AMBULATORY - SURGERY [facility] Active, Pending, and Scheduled Orders This section includes a listing of several types of active, pending, and scheduled orders, including clinic medications orders, diagnostic test orders, procedure orders and consult orders; where the start date of the order is 45 days before the date of the Encounter or 45 days after the date of theEncounter. The data comes from all [facility]. Test Date/Time Test Type Test Details Facility Name Jun 12, 2022 12:00 AM Laboratory - Chemistry Order TSH W/REFLEX TO FREE T4 PLASMA ONCO SP ONCE [facility] Jun 12, 2022 12:00 AM Laboratory - Chemistry Order CBC & DIFF BLOOD ONCO SP ONCE [facility] Jun 12, 2022 12:00 AM Laboratory - Chemistry Order COMPREHENSIVE METABOLIC PANEL+MG PLASMA ONCO SP ONCE [facility] July 14, 2022 12:00 AM Laboratory - Blood Bank Order ABO/RH - LAB BLOOD [facility] July 14, 2022 02:05 PM Laboratory - Blood Bank Order TYPE & SCREEN - LAB BLOOD [facility] Aug 07, 2022 11:23 AM Laboratory - Chemistry Order DRUG SCREEN PANEL,URINE URINE ONCE [facility] Aug 23, 2022 10:47 AM Laboratory - Chemistry Order URINALYSIS URINE ER STAT WC [facility] Lab Results: [...] Range Comment July 19, 2022 04:40 PM [facility] FINGERSTICK GLUCOSE Specimen Type: BLOOD Comment: Save Result Nurse Notified Ordering Provider: MACKENZIE COTTER Report Released Date/Time: July 19, 2022 05:00 PM Reporting Lab: [facility] [id number] Performing Lab: [facility] [phone] FINGERSTICK GLUCOSE 132 70-100 July 19, 2022 07:13 AM [facility] COMPREHENSIVE METABOLIC PANEL+MG Specimen Type: PLASMA No comment entered. Ordering Provider: MACKENZIE COTTER Report Released Date/Time: July 18, 2022 05:40 PM Reporting Lab: [facility] [address] Performing Lab: [facility] [address] CREATININE 0.9 0.7-1.2 UREA NITROGEN 24 8-26 [...] See_Commen t July 19, 2022 07:13 AM [facility] IRON GROUP Specimen Type: SERUM No comment entered. Ordering Provider: MACKENZIE COTTER Report Released Date/Time: July 18, 2022 05:40 PM Reporting Lab: [facility] [phone] Performing Lab: [facility] [phone] IRON 28 L 65-175 TIBC,CALCULATE D 223 L 250-425 FERRITIN 73.7 21.8-274.7 IRON SATURATION 13 L 20-50 TRANSFERRIN 178 163-382 July 19, 2022 07:13 AM [facility] CBC Specimen Type: BLOOD No comment entered. Ordering Provider: MACKENZIE COTTER Report Released Date/Time: July 18, 2022 05:40 PM Reporting Lab: [facility] [address] Performing Lab: [facility] [address] WBC 7.73 4.0-11.0 RBC 2.42 L 4.6-6.2 HGB 8.2 L 13.5-17.9 HCT 23.8 L 41-54 MCV 98.3 80-100 MCH 33.9 H 27-33 MCHC 34.5 32.0-37.5 PLT 155 150-400 MPV 9.6 7.4-10.4 RDW 13.5 11.5-14.5 July 19, 2022 05:44 AM [facility] FINGERSTICK GLUCOSE Specimen Type: BLOOD Comment: Save Result Nurse Notified Ordering Provider: MACKENZIE COTTER Report Released Date/Time: July 19, 2022 11:54 AM Reporting Lab: [facility] [address] Performing Lab: [facility] [address] FINGERSTICK GLUCOSE 137 70-100 July 18, 2022 10:51 PM [facility] FINGERSTICK GLUCOSE Specimen Type: BLOOD Comment: Save Result Nurse Notified Ordering Provider: MACKENZIE COTTER Report Released Date/Time: July 18, 2022 11:06 PM Reporting Lab: [facility] [address] Performing Lab: [facility] [address] FINGERSTICK GLUCOSE 163 70-100 July 17, 2022 06:51 AM [facility] BASIC METABOLIC PANEL+MG Specimen Type: PLASMA No comment entered. Ordering Provider: DANG VALLE Report Released Date/Time: July 16, 2022 09:37 AM Reporting Lab: [facility] [address] Performing Lab: [facility] [address] CREATININE 0.8 0.7-1.2 UREA NITROGEN 23 8-26 GLUCOSE 107 H 70-100 SODIUM 139 136-145 POTASSIUM 3.9 3.5-5.1 CHLORIDE 106 98-107 CO2 28 22-29 CALCIUM 9.1 8.4-10.2 MAGNESIUM 1.9 1.6-2.6 ANION GAP 5 5-15 .CREAT EGFR(CKD-EPI) >90 See_Commen t July 17, 2022 06:51 AM [facility] PROTHROMBIN TIME/INR Specimen Type: PLASMA No comment entered. Ordering Provider: DANG VALLE R Report Released Date/Time: July 16, 2022 09:37 AM Reporting Lab: [facility] [address] Performing Lab: [facility] [address] .INR 1.0 0.8-1.1 .PT 11.5 9.4-12.5 July 17, 2022 06:51 AM [facility] CBC Specimen Type: BLOOD No comment entered. Ordering Provider: DANG VALLE R Report Released Date/Time: July 16, 2022 09:37 AM Reporting Lab: [facility] [address] Performing Lab: [facility] [address] WBC 6.05 4.0-11.0 RBC 3.77 L 4.6-6.2 HGB 12.7 L 13.5-17.9 HCT 36.0 L 41-54 MCV 95.5 80-100 MCH 33.7 H 27-33 MCHC 35.3 32.0-37.5 PLT 179 150-400 MPV 9.4 7.4-10.4 RDW 13.2 11.5-14.5 July 13, 2022 11:22 AM [facility] COVID-19 AND FLU/RSV DIAG PANEL(CEPHEID) Specimen Typ e: NASOPHARYNGEAL Comment: Cepheid GeneXpert (618) Ordering Provider: WHITNEY ANDERSON Report Released Date/Time: July 13, 2022 11:04 AM Reporting Lab: [facility] [address] Performing Lab: [facility] [address] COVID-19 (CEPHEID) Not Detected Not Detected INFLUENZA A (PCR) Not Detected Not Detected INFLUENZA B (PCR) Not Detected Not Detected RSV (PCR) Not Detected Not Detected July 13, 2022 11:00 AM [facility] C-REACTIVE PROTEIN Specimen Type: SERUM Comment: Automated Differential Performed Ordering Provider: WHITNEY ANDERSON Report Released Date/Time: July 13, 2022 11:04 AM Reporting Lab: [facility] [address] Performing Lab: [facility] [address] C-REACTIVE PROTEIN 1.17 <5.00 July 13, 2022 11:00 AM [facility] SED RATE Specimen Type: BLOOD No comment entered. Ordering Provider: WHITNEY ANDERSON Report Released Date/Time: July 13, 2022 11:04 AM Reporting Lab: [facility] [address] Performing Lab: [facility] [address] SED RATE 10 5-15 July 13, 2022 11:00 AM [facility] PROTHROMBIN TIME/INR Specimen Type: PLASMA No comment entered. Ordering Provider: WHITNEY ANDERSON Report Released Date/Time: July 13, 2022 11:04 AM Reporting Lab: [facility] [address] Performing Lab: [facility] [address] .INR 0.9 0.8-1.1 .PT 11.1 9.4-12.5 July 13, 2022 11:00 AM [facility] CBC & DIFF Specimen Type: BLOOD Comment: Automated Differential Performed Ordering Provider: WHITNEY ANDERSON Report Released Date/Time: July 13, 2022 11:04 AM Reporting Lab: [facility] [address] Performing Lab: [facility] [address] WBC 8.82 4.0-11.0 RBC 3.89 L 4.6-6.2 [...] 0.03 0-0.1 July 13, 2022 11:00 AM [facility] COMPREHENSIVE METABOLIC PANEL+MG Specimen Type: PLASMA Comment: Automated Differential Performed Ordering Provider: WHITNEY ANDERSON Report Released Date/Time: July 13, 2022 11:04 AM Reporting Lab: [facility] [address] Performing Lab: [facility] [address] CREATININE 1.0 0.7-1.2 UREA NITROGEN 16 8-26 [...] Source July 17, 2022 11:20 PM 7 [facility] July 17, 2022 11:18 PM 7 [facility] July 17, 2022 11:11 PM 97.9 F 72 /min 122/77 mm[Hg] 18 /min 95 % 0 [facility] July 17, 2022 10:38 PM 7 [facility] July 17, 2022 08:55 PM 7 [facility] Social History: Smoking Status (Most current) [...] Facil ity May 10, 2022 09:15 AM [place]-TOBACCO QUIT 15 YRS OR MORE [facility] Tobacco Use History This section includes a history of the smoking, or tobacco-related health factors, that were collected on or before the date of the Encounter. The data comes from the [place] facility where the Encounter took place. Date/Time Smoking Status/Tobacco Use Comment F acility May 10, 2022 09:15 AM [place]-TOBACCO QUIT 15 YRS OR MORE [facility] May 11, 2021 09:15 AM VA-TOBACCO FORMER USER [facility] May 11, 2021 09:15 AM [place]-TO[place]ACCO QUIT 15 YRS OR MORE [facility] Nov 22, 2018 01:36 PM VA-TOBACCO NEVER USED [facility] Nov 12, 2017 07:35 AM FORMER TOBACCO USER 7Y OR GREATE R [facility] Nov 06, 2016 09:05 AM FORMER TOBACCO USER 7Y OR GREATE R [facility] Sep 27, 2015 09:42 AM FORMER TOBACCO USER 7Y OR GREATE R [facility] Sep 25, 2014 07:55 AM FORMER TOBACCO USER 7Y OR GREATE R [facility] Sep 08, 2013 07:48 AM FORMER TOBACCO USER 7Y OR GREATE R [facility] July 09, 2012 09:20 AM FORMER TOBACCO USE >1Y <7Y [facility] Jun 06, 2011 07:53 AM FORMER TOBACCO USE >1Y <7Y [facility] Sep 09, 2009 03:03 PM FORMER TOBACCO USE >1Y <7Y [facility] Aug 11, 2008 01:06 PM FORMER TOBACCO USE <1Y [facility] Sep 19, 2007 02:52 PM CURRENT TOBACCO USER [facility] Sep 03, 2006 03:32 PM CURRENT TOBACCO USER [facility] Advance Directives: All historical and current Section Date Range: From patient's date of to the date document was created. This section includes ALL of a patient's completed or amended [place] Advance and Rescinded Directives. The entries below indicate that a directive exists for the patient, but an actual copy is not included with this document. The data comes from all [facility]. Date Advance Directives Provider Source Mar 18, 2003 ADVANCE DIRECTIVE FARH[facility]EL[facility] Radiology Reports: +/- 30 days of [...] 07:50 AM CHEST 1 VIEW: MARYJO WAGNER [id number] -1950 M Exm Date: JULY 20, 2022@07:50 Req Phys: MACKENZIE COTTER Pat Loc: 07-20-2022@08:26 Img Loc: MAIN X-RAY Service: PRIMARY CARE - MED OFFICE (Case [id number] COMPLETE) CHEST 1 VIEW (RAD Detailed) CPT:32465 Proc Modifiers : PORTABLE EXAM Reason for Study: see below. thanks. Clinical History: [place] IS NOT under investigation for COVID-19 or is COVID-19 negative Please further evaluate for acute airspace disease given o2 requirement. Thanks. Responsible provider name and phone number to notify for critical findings if other than user placing the order and pager listed below: User placing orders pager: [phone] same LAST CREATININE 0.9 (07/19/22) Report Status: Verified Date Reported: JULY 20, 2022 Date Verified: JULY 20, 2022 Auto Glass Worker E-Sig:/ES/JAMIE MIGUEL MD Report: EXAM: CHEST 1 [...] pager listed below: User placing orders pager: [phone] same LAST CREATININE 0. COMPARISON: Chest CT [...] Primary Interpreting Staff: JAMIE MIGUEL MD, RADIOLOGIST (Auto Glass Worker) /JAMIE FRANCES [facility] July 18, 2022 12:59 PM ELBOW LEFT 2 VIEWS: MARJYO WAGNER [id number] -1950 M Exm Date: JULY 18, 2022@12:59 Req Phys: LEIF BALBUENA Loc: OR-PACU/07-18-2022@13:59 Img Loc: MAIN X-RAY Service: ZZSURGICAL SERVICE (Case [id number] COMPLETE) ELBOW LEFT 2 VIEWS (RAD Detailed) CPT:34787 Proc Modifiers : PORTABLE EXAM, OPERATING ROOM EXAM Reason for Study: post-op Clinical History: post-op Report Status: Verified Date Reported: JULY 18, 2022 Date Verified: JULY 18, 2022 Auto Glass Worker E-Sig:/ES/JAKUB LEE MD Report: EXAM: ELBOW LEFT [...] Primary Interpreting Staff: JAKUB LEE MD, RADIOLOGIST (Auto Glass Worker) /[facility] JAKUB LEE [facility] July 18, 2022 07:30 AM FLUORO UP TO 1 HR PHYSICIAN TIME: MARYJO WAGNER [id number] -1950 M Exm Date: JULY 18, 2022@07:30 Req Phys: LEIF BALBUENA Loc: OR-PACU/07-18-2022@13:14 Img Loc: MAIN X-RAY Service: PRIMARY CARE - MED OFFICE (Case [id number] COMPLETE) FLUORO UP TO 1 HR PHYSICIAN TIME (RAD Detailed) CPT:88932 Proc Modifiers : PORTABLE EXAM, OPERATING ROOM EXAM, LEFT Reason for Study: Left distal humerous ORIF Clinical History: OR 7 Pathologic distal humeral shaft fracture Responsible provider name and phone number to notify for critical findings if other than user placing the order and pager listed below: User placing orders pager: Henry BALBUENA [phone] LAST CREATININE 0.8 (07/17/22) Report Status: Electronically Filed Date Reported: JULY 18, 2022 Report: Impression: Please see the full report for this procedure in CPRS patient progress notes. Fluoro guidance was provided during this procedure, but the study was not reviewed or verified by a [facility] radiologist. The radiation exposure dose has been recorded in the patient's chart. If you are unable to view this data, please contact the Imaging Department. VERIFIED BY: / *ELECTRONICALLY FILED* [facility] July 17, 2022 03:28 PM ABDOMINAL AORTOGRAM (P): MARYJO WAGNER [id number] -1950 M Exm Date: JULY 17, 2022@15:28 Req Phys: MALCOM LANGLEY [facility] Loc: 07-17-2022@15:54 Img Loc: INTERVENTIONAL RADIOLOGY Service: PRIMARY CARE - MED OFFICE (Case [id number] COMPLETE) ANGIOGRAPHY EXTREMITY UNILAT S&I (ANI Detailed) CPT:95328 Reason for Study: codes (Case 528 COMPLETE) IR AORTOGRAPHY ABDOMINAL W/O RUNO(ANI Detailed) CPT:69327 (Case 529 COMPLETE) IR FOREIGN BODY REMOVAL INTRAVASC(ANI Detailed) CPT:09427 (Case 532 COMPLETE) IR NEEDLE/INTRACATH PLACEMENT EXT(ANI Detailed) CPT:32404 (Case 533 COMPLETE) IR PLACEMENT OCCLUSIVE DEVICE SAM(ANI Detailed) CPT:G0269 Clinical History: codes Report Status: Verified Date Reported: JULY 17, 2022 Date Verified: JULY 17, 2022 Auto Glass Worker E-Sig:/ES/MALCOM LANGLEY MD Report: RADIOLOGIST: Malcom Langley [...] angiogram and runoff. 12. Closure of right PRICING STRATEGIST with Angio-Seal device. HISTORY: Metastatic renal cell [...] Sheath removed over guidewire and a 5 filipino vascular sheath advanced over guidewire into the artery. An H1 catheter was advanced along with the guidewire into the thoracic arch and the left subclavian artery was selected. Catheter and the guidewire were advanced into the left brachial artery. The 5 Moldovan sheath was exchanged for a 6 Moldovan sheath that was advanced into the left [...] arteries. Sheath and catheters were removed and PRICING STRATEGIST arteriotomy was closed using Angioseal. There is patent hemostasis. No bleeding or hematoma noted. Sterile dressing applied. 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 Primary Interpreting Staff: MALCOM LANGLEY MD, INTERVENTIONAL RADIOLOGIST (Auto Glass Worker) /MALCOM HE [facility] July 17, 2022 07:30 AM RENAL ARTERY EMBOLIZATION (P): MARYJO WAGNER [id number] -1950 M Exm Date: JULY 17, 2022@07:30 Req Phys: WESTON VASQUEZ Pat Loc: 07-17-2022@15:46 Img Loc: INTERVENTIONAL RADIOLOGY Service: PRIMARY CARE - MED OFFICE (Case 130 COMPLETE) IR TRANSCATH EMBOLIZATION W/ANGIO(ANI Detailed) CPT:13013 Reason for Study: embolization of RCC mets to left humerus (Case 131 COMPLETE) IR ARTERIAL EMBOLIZATION OTHER TH(ANI Detailed) CPT:47596 (Case 132 COMPLETE) IR US GUIDANCE VASCULAR ACCESS (ANI Detailed) CPT:84227 Clinical History: [place] IS NOT under investigation for COVID-19 or [...] pager listed below: User placing orders pager: [phone] LAST CREATININE 1.0 (07/13/22) Report Status: Verified Date Reported: JULY 17, 2022 Date Verified: JULY 17, 2022 Auto Glass Worker E-Sig:/ES/MALCOM LANGLEY MD Report: RADIOLOGIST: Malcom Langley [...] angiogram and runoff. 12. Closure of right PRICING STRATEGIST with Angio-Seal device. HISTORY: Metastatic renal cell [...] Sheath removed over guidewire and a 5 filipino vascular sheath advanced over guidewire into the artery. An H1 catheter was advanced along with the guidewire into the thoracic arch and the left subclavian artery was selected. Catheter and the guidewire were advanced into the left brachial artery. The 5 Moldovan sheath was exchanged for a 6 Moldovan sheath that was advanced into the left [...] arteries. Sheath and catheters were removed and PRICING STRATEGIST arteriotomy was closed using Angioseal. There is patent hemostasis. No bleeding or hematoma noted. Sterile dressing applied. 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 Primary Interpreting Staff: MALCOM LANGLEY MD, INTERVENTIONAL RADIOLOGIST (Auto Glass Worker) /MALCOM HE [facility] July 14, 2022 06:44 AM HUMERUS LEFT MINIMUM 2 VIEWS: MARYJO WAGNER [id number] -1950 M Exm Date: JULY 14, 2022@06:44 Req Phys: WESTON VASQUEZ [facility] Loc: 07-14-2022@07:13 Img Loc: MAIN X-RAY Service: PRIMARY CARE - MED OFFICE (Case [id number] COMPLETE) HUMERUS LEFT MINIMUM 2 VIEWS (RAD Detailed) CPT:77049 Reason for Study: post reduction Clinical History: Report Status: Verified Date Reported: JULY 14, 2022 Date Verified: JULY 14, 2022 Auto Glass Worker E-Sig: Report: HUMERUS LEFT MINIMUM 2 VIEWS HISTORY: post reduction COMPARISON: 07/13/2022 TECHNIQUE: 2 view(s) of the humerus, submitted to the [place] National Teleradiology Program (NTP) for interpretation. FINDINGS: [...] less likely. READING PHYSICIAN: Xavier Merrill MD -[phone] 07/14/2022 5:11 PDT [facility] National Teleradiology Program [phone] (For Medical Practitioner Use Only) Attention Patients / Veterans: If you have questions or concerns about these test results, please contact your ordering provider or primary care team. Primary Interpreting Staff: RADIOLOGY,OUTSIDE SERVICE, Staff Physician / RADIOLOGY,OUTSIDE SERVICE [facility] July 13, 2022 10:07 AM ELBOW LEFT 3 OR MORE VIEWS: MARYJO WAGNER [id number] -1950 M Ex Date: JULY 13, 2022@10:07 Req Phys: WHITNEY ANDERSON Pat Loc: [facility] EMERGENCY DEPT WALK-IN (Re Img Loc: MAIN X-RAY Service: Unknown (Case [id number] COMPLETE) ELBOW LEFT 3 OR MORE VIEWS (RAD Detailed) CPT:56998 Proc Modifiers : LEFT Reason for Study: L arm pain Clinical History: [place] IS NOT under investigation for COVID-19 or is COVID-19 negative Atraumatic left upper extremity pain that is located midshaft humerus distally to the mid forearm. Clinical concern for dislocation versus fracture versus bone mets Responsible provider name and phone number to notify for critical findings if other than user placing the order and pager listed below: User placing orders pager: [phone] LAST CREATININE 0.8 (05/10/22) Report Status: Verified Date Reported: JULY 13, 2022 Date Verified: JULY 13, 2022 Auto Glass Worker E-Sig:/SANGITA/ALBINA COWAN MD, FACR, CCD Report: EXAMINATION: [...] Staff: ALBINA COWAN MD, FACR, STAFF RADIOLOGIST (Auto Glass Worker) /[facility] ALBINA COWAN [facility] July 13, 2022 10:07 AM FOREARM LEFT 2 VIEWS: MARYJO WAGNER [id number] -1950 M Exm Date: JULY 13, 2022@10:07 Req Phys: WHITNEY ANDERSON Pat Loc: [facility] EMERGENCY DEPT WALK-IN (Re Img Loc: MAIN X-RAY Service: Unknown (Case [id number] COMPLETE) FOREARM LEFT 2 VIEWS (RAD Detailed) CPT:93857 Proc Modifiers : LEFT Reason for Study: L arm pain Clinical History: [place] IS NOT under investigation for COVID-19 or is COVID-19 negative Atraumatic left upper extremity pain that is located midshaft humerus distally to the mid forearm. Clinical concern for dislocation versus fracture versus bone mets Responsible provider name and phone number to notify for critical findings if other than user placing the order and pager listed below: User placing orders pager: [phone] LAST CREATININE 0.8 (05/10/22) Report Status: Verified Date Reported: JULY 13, 2022 Date Verified: JULY 13, 2022 Auto Glass Worker E-Sig:/SANGITA/ALBINA COWAN MD, FACR, CCD Report: EXAMINATION: FOREARM [...] Staff: ALBINA COWAN MD, FACR, STAFF RADIOLOGIST (Auto Glass Worker) /ALBINA NATHAN [facility] July 13, 2022 10:07 AM HUMERUS LEFT MINIMUM 2 VIEWS: MARYJO WAGNER [id number] -1950 M Exm Date: JULY 13, 2022@10:07 Req Phys: WHITNEY ANDERSON Pat Loc: [facility] EMERGENCY DEPT WALK-IN (Re Img Loc: MAIN X-RAY Service: Unknown (Case [id number] COMPLETE) HUMERUS LEFT MINIMUM 2 VIEWS (RAD Detailed) CPT:35750 Proc Modifiers : LEFT Reason for Study: [...] pager listed below: User placing orders pager: [phone] LAST CREATININE 0.8 (05/10/22) Report Status: Verified Date Reported: JULY 13, 2022 Date Verified: JULY 13, 2022 Auto Glass Worker E-Sig:/ES/ALBINA COWAN MD, FACR, CCD Report: EXAMINATION: [...] Staff: ALBINA COWAN MD, FACR, STAFF RADIOLOGIST (Auto Glass Worker) /ALBINA NATHAN [facility] Pathology Reports: +/- 30 days of the [...] COSIGNER: URGENCY: STATUS: COMPLETED $APHDR Reporting Lab: [facility] [CLIA# [id number]] [place] [address] - - - - - - - [...] PATHOLOGY & LABORATORY [facility] [place] July 21, 2022@14:37 Performing Laboratory: Surgical Pathology Report Performed By: [facility] [CLIA# [id number]] [place] [address] $FTR - - - - - - - - - - - - - - - - - - - - - - - - - - - - - - - - - - - - - - - - (End of report) JIAN SANDOVAL MD [facility] Date July 21, 2022 - - - - - - - - - - - - - - - - - - - - - - - - - - - - - - - - - - - - - - - - MARYJO WAGNER STANDARD FORM 515 ID:[id number] SEX:M :1950 AGE: 72 LOC:[facility] PATHOLOGY PRO FEE ADM:June DX:PATHOLOGIC FX LF HUMERUS PCP: Leif Balbuena MD /sangita/ JIAN SANDOVAL STAFF PATHOLOGIST, PATHOLOGY & LABORATORY [facility] Signed: 07/21/2022 14:37 JIAN SANDOVAL [facility] Encounter Notes: All associated encounter notes This section contains the clinical notes associated to the Encounter. Date/Time Encounter Note(s) Provider Source July 17, 2022 01:00 AM CRITICAL CARE UNIT NOTE: LOCAL TITLE: [facility] RESPIRATORY THERAPY FLOWSHEET STANDARD TITLE: CRITICAL CARE UNIT NOTE DATE OF NOTE: JULY 17, 2022@01:00 ENTRY DATE: JULY 18, 2022@15:13:43 AUTHOR: SYSTEM,SABINOParticleGodfrey EXP COSIGNER: URGENCY: STATUS: COMPLETED This is a place casey only. Please see Extenda-Dent to view document. [email or web address] SYSTEM ICU DOCUMENT IMPORT Signed: 07/18/2022 15:13 SYSTEM,CIS-YI [facility]
--- OUTSIDE RECORDS SUMMARY | 2023-03-24 08:41 | XMS_ITS | Encounter Summary ---
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 Organization [facility] Address [address] [place] [address] Support Name Relationship Address Phone DOREEN WAGNER Next of Kin [address] [place] [phone] DOREEN Emergency Contact [address] [place] [phone] Insurance Providers: All historical and current [...] Name Patient's Relationship to Policy Casey HUMANA [facility] (WNR) MEDICARE [facility] June 26, 2016 [id number] CARSONJOAN ROWELL PATIENT HUMANA MCR (WNR) MEDICARE ADVANTAGE [facility] June 26, 2016 [id number] JOAN WAGNER KARSTEN PATIENT HUMANA MCR (WNR) MEDICARE ADVANTAGE [facility] (R) June 26, 2016 [id number] [phone] JOAN WAGNER KARSTEN PATIENT Selected Encounter This section includes the information on record at NH for the Encounter. Date/Time Encounter Type Encounter Description Reason Pro vider Source July 18, 2022 09:54 AM Inpatient Visit ADMIN 51 Give (NICECT) SYSTEM,CIS-ARK IHE Encounter Template Text not used by NH Plan of Treatment: Future Appointments (+ 6 [...] 20 appointments. The data comes from all [facility]. Appointment Date/Time Appointment Type Appointme nt Facility Name Jul 28, 2022 10:45 AM [facility] Aug 13, 2022 06:13 PM [facility] Aug 23, 2022 09:30 AM AMBULATORY - SURGERY [facility] Aug 23, 2022 09:45 AM AMBULATORY - NONE [facility] Aug 23, 2022 10:30 AM AMBULATORY - MEDICINE [facility] Aug 23, 2022 10:31 AM AMBULATORY - MEDICINE [facility] Sep 06, 2022 10:15 AM AMBULATORY - SURGERY [facility] Oct 25, 2022 07:00 AM [facility] Oct 25, 2022 07:30 [...] of theEncounter. The data comes from all [facility]. Test Date/Time Test Type Test Details Facility Name Jun 12, 2022 12:00 AM Laboratory - Chemistry Order CBC & DIFF BLOOD ONCO SP ONCE [facility] Jun 12, 2022 12:00 AM Laboratory - Chemistry Order COMPREHENSIVE METABOLIC PANEL+MG PLASMA ONCO SP ONCE [facility] Jun 12, 2022 12:00 AM Laboratory - Chemistry Order TSH W/REFLEX TO FREE T4 PLASMA ONCO SP ONCE [facility] July 14, 2022 12:00 AM Laboratory - Blood Bank Order ABO/RH - LAB BLOOD [facility] July 14, 2022 02:05 PM Laboratory - Blood Bank Order TYPE & SCREEN - LAB BLOOD [facility] Aug 07, 2022 11:23 AM Laboratory - Chemistry Order DRUG SCREEN PANEL,URINE URINE ONCE [facility] Aug 23, 2022 10:47 AM Laboratory - Chemistry Order URINALYSIS URINE ER STAT WC [facility] Lab Results: +/- 30 days of the encounter This section includes the Chemistry and Hematology Lab Results on record with NH for the patient. Radiology Reports and Pathology Reports are provided separately, in subsequent sections. Lab Results This section contains the Chemistry/Hematology Results that were resulted 30 days before or 30 daysafter the date of the Encounter. Date/Time Source Result Type Result - Unit Interpretation Reference Range Comment July 19, 2022 04:40 PM [facility] FINGERSTICK GLUCOSE Specimen Type: BLOOD Comment: Save Result Nurse Notified Ordering Provider: MACKENZIE COTTER Report Released Date/Time: July 19, 2022 05:00 PM Reporting Lab: [facility] [id number] Performing Lab: [facility] [address] FINGERSTICK GLUCOSE 132 70-100 July 19, 2022 07:13 AM [facility] COMPREHENSIVE METABOLIC PANEL+MG Specimen Type: PLASMA No comment entered. Ordering Provider: MACKENZIE COTTER Report Released Date/Time: July 18, 2022 05:40 PM Reporting Lab: [facility] [address] Performing Lab: [facility] [address] CREATININE 0.9 0.7-1.2 UREA NITROGEN 24 8-26 [...] See_Commen t July 19, 2022 07:13 AM [facility] IRON GROUP Specimen Type: SERUM No comment entered. Ordering Provider: MACKENZIE COTTER Report Released Date/Time: July 18, 2022 05:40 PM Reporting Lab: [facility] [address] Performing Lab: [facility] [address] IRON 28 L 65-175 TIBC,CALCULATE D 223 L 250-425 FERRITIN 73.7 21.8-274.7 IRON SATURATION 13 L 20-50 TRANSFERRIN 178 163-382 July 19, 2022 07:13 AM [facility] CBC Specimen Type: BLOOD No comment entered. Ordering Provider: MACKENZIE COTTER Report Released Date/Time: July 18, 2022 05:40 PM Reporting Lab: [facility] [address] Performing Lab: [facility] [address] WBC 7.73 4.0-11.0 RBC 2.42 L 4.6-6.2 HGB 8.2 L 13.5-17.9 HCT 23.8 L 41-54 MCV 98.3 80-100 MCH 33.9 H 27-33 MCHC 34.5 32.0-37.5 PLT 155 150-400 MPV 9.6 7.4-10.4 RDW 13.5 11.5-14.5 July 19, 2022 05:44 AM [facility] FINGERSTICK GLUCOSE Specimen Type: BLOOD Comment: Save Result Nurse Notified Ordering Provider: MACKENZIE COTTER Report Released Date/Time: July 19, 2022 11:54 AM Reporting Lab: [facility] [address] Performing Lab: [facility] [address] FINGERSTICK GLUCOSE 137 70-100 July 18, 2022 10:51 PM [facility] FINGERSTICK GLUCOSE Specimen Type: BLOOD Comment: Save Result Nurse Notified Ordering Provider: MACKENZIE COTTER Report Released Date/Time: July 18, 2022 11:06 PM Reporting Lab: [facility] [address] Performing Lab: [facility] [address] FINGERSTICK GLUCOSE 163 70-100 July 17, 2022 06:51 AM [facility] BASIC METABOLIC PANEL+MG Specimen Type: PLASMA No comment entered. Ordering Provider: DANG VALLE Report Released Date/Time: July 16, 2022 09:37 AM Reporting Lab: [facility] [address] Performing Lab: [facility] [address] CREATININE 0.8 0.7-1.2 UREA NITROGEN 23 8-26 GLUCOSE 107 H 70-100 SODIUM 139 136-145 POTASSIUM 3.9 3.5-5.1 CHLORIDE 106 98-107 CO2 28 22-29 CALCIUM 9.1 8.4-10.2 MAGNESIUM 1.9 1.6-2.6 ANION GAP 5 5-15 .CREAT EGFR(CKD-EPI) >90 See_Commen t July 17, 2022 06:51 AM [facility] PROTHROMBIN TIME/INR Specimen Type: PLASMA No comment entered. Ordering Provider: DAGN VALLE R Report Released Date/Time: July 16, 2022 09:37 AM Reporting Lab: [facility] [address] Performing Lab: [facility] [address] .INR 1.0 0.8-1.1 .PT 11.5 9.4-12.5 July 17, 2022 06:51 AM [facility] CBC Specimen Type: BLOOD No comment entered. Ordering Provider: DANG VALLE R Report Released Date/Time: July 16, 2022 09:37 AM Reporting Lab: [facility] [address] Performing Lab: [facility] [address] WBC 6.05 4.0-11.0 RBC 3.77 L 4.6-6.2 HGB 12.7 L 13.5-17.9 HCT 36.0 L 41-54 MCV 95.5 80-100 MCH 33.7 H 27-33 MCHC 35.3 32.0-37.5 PLT 179 150-400 MPV 9.4 7.4-10.4 RDW 13.2 11.5-14.5 July 13, 2022 11:22 AM [facility] COVID-19 AND FLU/RSV DIAG PANEL(CEPHEID) Specimen Typ e: NASOPHARYNGEAL Comment: Cepheid GeneXpert (618) Ordering Provider: WHITNEY ANDERSON Report Released Date/Time: July 13, 2022 11:04 AM Reporting Lab: [facility] [address] Performing Lab: [facility] [address] COVID-19 (CEPHEID) Not Detected Not Detected INFLUENZA A (PCR) Not Detected Not Detected INFLUENZA B (PCR) Not Detected Not Detected RSV (PCR) Not Detected Not Detected July 13, 2022 11:00 AM [facility] C-REACTIVE PROTEIN Specimen Type: SERUM Comment: Automated Differential Performed Ordering Provider: WHITNEY ANDERSON Report Released Date/Time: July 13, 2022 11:04 AM Reporting Lab: [facility] [address] Performing Lab: [facility] [address] C-REACTIVE PROTEIN 1.17 <5.00 July 13, 2022 11:00 AM [facility] PROTHROMBIN TIME/INR Specimen Type: PLASMA No comment entered. Ordering Provider: WHITNEY ANDERSON Report Released Date/Time: July 13, 2022 11:04 AM Reporting Lab: [facility] [address] Performing Lab: [facility] [address] .INR 0.9 0.8-1.1 .PT 11.1 9.4-12.5 July 13, 2022 11:00 AM [facility] SED RATE Specimen Type: BLOOD No comment entered. Ordering Provider: WHITNEY ANDERSON Report Released Date/Time: July 13, 2022 11:04 AM Reporting Lab: [facility] [address] Performing Lab: [facility] [address] SED RATE 10 5-15 July 13, 2022 11:00 AM [facility] CBC & DIFF Specimen Type: BLOOD Comment: Automated Differential Performed Ordering Provider: WHITNEY ANDERSON Report Released Date/Time: July 13, 2022 11:04 AM Reporting Lab: [facility] [address] Performing Lab: [facility] [address] WBC 8.82 4.0-11.0 RBC 3.89 L 4.6-6.2 [...] 0.03 0-0.1 July 13, 2022 11:00 AM [facility] COMPREHENSIVE METABOLIC PANEL+MG Specimen Type: PLASMA Comment: Automated Differential Performed Ordering Provider: WHITNEY ANDERSON Report Released Date/Time: July 13, 2022 11:04 AM Reporting Lab: [facility] [address] Performing Lab: [facility] [address] CREATININE 1.0 0.7-1.2 UREA NITROGEN 16 8-26 [...] Source July 18, 2022 11:14 PM 9 [facility] July 18, 2022 11:14 PM 9 [facility] July 18, 2022 10:53 PM 98.6 F 68 /min 114/73 mm[Hg] 18 /min 95 % 8 [facility] July 18, 2022 09:30 PM 8 [facility] July 18, 2022 08:59 PM 9 [facility] Social History: Smoking Status (Most current) and Tobacco Use (All prior to encounter date) This section includes the most current, and the historical, smoking and tobacco- related health factors from the NH facility where the Encounter took place. Current Smoking Status This section includes the most current smoking, or tobacco-related health factor, from the NH facility where the Encounter took place. Date/Time Current Smoking Status Comment Facil ity May 10, 2022 09:15 AM VA-TOBACCO FORMER USER [facility] Tobacco Use History This section includes a history of the smoking, or tobacco-related health factors, that were collected on or before the date of the Encounter. The data comes from the NH facility where the Encounter took place. Date/Time Smoking Status/Tobacco Use Comment F acility May 10, 2022 09:15 AM VA-TOBACCO QUIT 15 YRS OR MORE [facility] May 11, 2021 09:15 AM VA-TOBACCO FORMER USER [facility] May 11, 2021 09:15 AM NH-TOBACCO QUIT 15 YRS OR MORE [facility] Nov 22, 2018 01:36 PM VA-TOBACCO NEVER USED [facility] Nov 12, 2017 07:35 AM FORMER TOBACCO USER 7Y OR GREATE R [facility] Nov 06, 2016 09:05 AM FORMER TOBACCO USER 7Y OR GREATE R [facility] Sep 27, 2015 09:42 AM FORMER TOBACCO USER 7Y OR GREATE R [facility] Sep 25, 2014 07:55 AM FORMER TOBACCO USER 7Y OR GREATE R [facility] Sep 08, 2013 07:48 AM FORMER TOBACCO USER 7Y OR GREATE R [facility] July 09, 2012 09:20 AM FORMER TOBACCO USE >1Y <7Y [facility] Jun 06, 2011 07:53 AM FORMER TOBACCO USE >1Y <7Y [facility] Sep 09, 2009 03:03 PM FORMER TOBACCO USE >1Y <7Y [facility] Aug 11, 2008 01:06 PM FORMER TOBACCO USE <1Y [facility] Sep 19, 2007 02:52 PM CURRENT TOBACCO USER [facility] Sep 03, 2006 03:32 PM CURRENT TOBACCO USER [facility] Advance Directives: All historical and current Section Date Range: From patient's date of to the date document was created. This section includes ALL of a patient's completed or amended NH Advance and Rescinded Directives. The entries below indicate that a directive exists for the patient, but an actual copy is not included with this document. The data comes from all [facility]. Date Advance Directives Provider Source Mar 18, 2003 ADVANCE DIRECTIVE [facility] Radiology Reports: +/- 30 days of [...] the Encounter. The data comes from all NH treatment facilities. Date/Time Radiology Report Provider Source July 20, 2022 07:50 AM CHEST 1 VIEW: MARYJO WAGNER [id number] -1950 M Exm Date: JULY 20, 2022@07:50 Req Phys: MACKENZIE COTTER Pat Loc: 07-20-2022@08:26 Img Loc: MAIN X-RAY Service: PRIMARY CARE - MED OFFICE (Case [id number] COMPLETE) CHEST 1 VIEW (RAD Detailed) CPT:30741 Proc Modifiers : PORTABLE EXAM Reason for Study: see below. thanks. Clinical History: [place] IS NOT under investigation for COVID-19 or is COVID-19 negative Please further evaluate for acute airspace disease given o2 requirement. Thanks. Responsible provider name and phone number to notify for critical findings if other than user placing the order and pager listed below: User placing orders pager: [phone] same LAST CREATININE 0.9 (07/19/22) Report Status: Verified Date Reported: JULY 20, 2022 Date Verified: JULY 20, 2022 Safety And Security Manager E-Sig:/ES/JAMIE MIGUEL MD Report: EXAM: CHEST [...] pager listed below: User placing orders pager: [phone] same LAST CREATININE 0. COMPARISON: Chest CT [...] Primary Interpreting Staff: JAMIE MIGUEL MD, RADIOLOGIST (Safety And Security Manager) /JAMIE FRANCES [facility] July 18, 2022 12:59 PM ELBOW LEFT 2 VIEWS: MARYJO WAGNER [id number] -1950 M Exm Date: JULY 18, 2022@12:59 Req Phys: LEIF BALBUENA Loc: OR-PACU/07-18-2022@13:59 Img Loc: MAIN X-RAY Service: ZZSURGICAL SERVICE (Case [id number] COMPLETE) ELBOW LEFT 2 VIEWS (RAD Detailed) CPT:24459 Proc Modifiers : PORTABLE EXAM, OPERATING ROOM EXAM Reason for Study: post-op Clinical History: post-op Report Status: Verified Date Reported: JULY 18, 2022 Date Verified: JULY 18, 2022 Safety And Security Manager E-Sig:/ES/JAKUB LEE MD Report: EXAM: ELBOW [...] Primary Interpreting Staff: JAKUB LEE MD, RADIOLOGIST (Safety And Security Manager) /[facility] JAKUB LEE [facility] July 18, 2022 07:30 AM FLUORO UP TO 1 HR PHYSICIAN TIME: MARYJO WAGNER [id number] -1950 M Exm Date: JULY 18, 2022@07:30 Req Phys: LEIF BALBUENA Loc: OR-PACU/07-18-2022@13:14 Img Loc: MAIN X-RAY Service: PRIMARY CARE - MED OFFICE (Case [id number] COMPLETE) FLUORO UP TO 1 HR PHYSICIAN TIME (RAD Detailed) CPT:60830 Proc Modifiers : PORTABLE EXAM, OPERATING ROOM EXAM, LEFT Reason for Study: Left distal humerous ORIF Clinical History: OR 7 Pathologic distal humeral shaft fracture Responsible provider name and phone number to notify for critical findings if other than user placing the order and pager listed below: User placing orders pager: Henry BALBUENA [phone] LAST CREATININE 0.8 (07/17/22) Report Status: Electronically Filed Date Reported: JULY 18, 2022 Report: Impression: Please see the full report for this procedure in CPRS patient progress notes. Fluoro guidance was provided during this procedure, but the study was not reviewed or verified by a [facility] radiologist. The radiation exposure dose has been recorded in the patient's chart. If you are unable to view this data, please contact the Imaging Department. VERIFIED BY: / *ELECTRONICALLY FILED* [facility] July 17, 2022 03:28 PM ABDOMINAL AORTOGRAM (P): MARYJO WAGNER [id number] -1950 M Exm Date: JULY 17, 2022@15:28 Req Phys: MALCOM LANGLEY [facility] Loc: 07-17-2022@15:54 Img Loc: INTERVENTIONAL RADIOLOGY Service: PRIMARY CARE - MED OFFICE (Case [id number] COMPLETE) ANGIOGRAPHY EXTREMITY UNILAT S&I (ANI Detailed) CPT:91533 Reason for Study: codes (Case 528 COMPLETE) IR AORTOGRAPHY ABDOMINAL W/O RUNO(ANI Detailed) CPT:01023 (Case 529 COMPLETE) IR FOREIGN BODY REMOVAL INTRAVASC(ANI Detailed) CPT:63939 (Case 532 COMPLETE) IR NEEDLE/INTRACATH PLACEMENT EXT(ANI Detailed) CPT:00118 (Case 533 COMPLETE) IR PLACEMENT OCCLUSIVE DEVICE SAM(ANI Detailed) CPT:G0269 Clinical History: codes Report Status: Verified Date Reported: JULY 17, 2022 Date Verified: JULY 17, 2022 Safety And Security Manager E-Sig:/ES/MALCOM LANGLEY MD Report: RADIOLOGIST: Malcom [...] angiogram and runoff. 12. Closure of right RETAIL BAKERY MANAGER with Angio-Seal device. HISTORY: Metastatic renal cell [...] Sheath removed over guidewire and a 5 greek vascular sheath advanced over guidewire into the artery. An H1 catheter was advanced along with the guidewire into the thoracic arch and the left subclavian artery was selected. Catheter and the guidewire were advanced into the left brachial artery. The 5 Belgian sheath was exchanged for a 6 Belgian sheath that was advanced into the left [...] arteries. Sheath and catheters were removed and RETAIL BAKERY MANAGER arteriotomy was closed using Angioseal. There is patent hemostasis. No bleeding or hematoma noted. Sterile dressing applied. 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 Primary Interpreting Staff: MALCOM LANGLEY MD, INTERVENTIONAL RADIOLOGIST (Safety And Security Manager) /MALCOM HE [facility] July 17, 2022 07:30 AM RENAL ARTERY EMBOLIZATION (P): MARYJO WAGNER [id number] -1950 M Exm Date: JULY 17, 2022@07:30 Req Phys: WESTON VASQUEZ Pat Loc: 07-17-2022@15:46 Img Loc: INTERVENTIONAL RADIOLOGY Service: PRIMARY CARE - MED OFFICE (Case 130 COMPLETE) IR TRANSCATH EMBOLIZATION W/ANGIO(ANI Detailed) CPT:98871 Reason for Study: embolization of RCC mets to left humerus (Case 131 COMPLETE) IR ARTERIAL EMBOLIZATION OTHER TH(ANI Detailed) CPT:54456 (Case 132 COMPLETE) IR US GUIDANCE VASCULAR ACCESS (ANI Detailed) CPT:30670 Clinical History: [place] IS NOT under investigation for COVID-19 or [...] pager listed below: User placing orders pager: [phone] LAST CREATININE 1.0 (07/13/22) Report Status: Verified Date Reported: JULY 17, 2022 Date Verified: JULY 17, 2022 Safety And Security Manager E-Sig:/ES/MALCOM LANGLEY MD Report: RADIOLOGIST: Malcom [...] angiogram and runoff. 12. Closure of right RETAIL BAKERY MANAGER with Angio-Seal device. HISTORY: Metastatic renal cell [...] Sheath removed over guidewire and a 5 greek vascular sheath advanced over guidewire into the artery. An H1 catheter was advanced along with the guidewire into the thoracic arch and the left subclavian artery was selected. Catheter and the guidewire were advanced into the left brachial artery. The 5 Belgian sheath was exchanged for a 6 Belgian sheath that was advanced into the left [...] arteries. Sheath and catheters were removed and RETAIL BAKERY MANAGER arteriotomy was closed using Angioseal. There is patent hemostasis. No bleeding or hematoma noted. Sterile dressing applied. 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 Primary Interpreting Staff: MALCOM LANGLEY MD, INTERVENTIONAL RADIOLOGIST (Safety And Security Manager) /MALCOM HE [facility] July 14, 2022 06:44 AM HUMERUS LEFT MINIMUM 2 VIEWS: MARYJO WAGNER [id number] -1950 M Exm Date: JULY 14, 2022@06:44 Req Phys: PEDROWESTON [facility] Loc: 07-14-2022@07:13 Img Loc: MAIN X-RAY Service: PRIMARY CARE - MED OFFICE (Case [id number] COMPLETE) HUMERUS LEFT MINIMUM 2 VIEWS (RAD Detailed) CPT:42871 Reason for Study: post reduction Clinical History: Report Status: Verified Date Reported: JULY 14, 2022 Date Verified: JULY 14, 2022 Safety And Security Manager E-Sig: Report: HUMERUS LEFT MINIMUM 2 VIEWS HISTORY: post reduction COMPARISON: 07/13/2022 TECHNIQUE: 2 view(s) of the humerus, submitted to the [place] National Teleradiology Program (NTP) for interpretation. FINDINGS: [...] less likely. READING PHYSICIAN: Xavier Merrill MD -[id number] 07/14/2022 5:11 PDT [facility] National Teleradiology Program [phone] (For Medical Practitioner Use Only) Attention Patients / Veterans: If you have questions or concerns about these test results, please contact your ordering provider or primary care team. Primary Interpreting Staff: RADIOLOGY,OUTSIDE SERVICE, Staff Physician / RADIOLOGY,OUTSIDE SERVICE [facility] July 13, 2022 10:07 AM HUMERUS LEFT MINIMUM 2 VIEWS: MARYJO WAGNER [id number] -1950 M [facility] Date: JULY 13, 2022@10:07 Req Phys: WHITNEY ANDERSON Pat Loc: [facility] EMERGENCY DEPT WALK-IN (Re Img Loc: MAIN X-RAY Service: Unknown (Case [id number] COMPLETE) HUMERUS LEFT MINIMUM 2 VIEWS (RAD Detailed) CPT:30395 Proc Modifiers : LEFT Reason for Study: [...] pager listed below: User placing orders pager: [phone] LAST CREATININE 0.8 (05/10/22) Report Status: Verified Date Reported: JULY 13, 2022 Date Verified: JULY 13, 2022 Safety And Security Manager E-Sig:/SANGITA/ALBINA COWAN MD, FACR, CCD Report: EXAMINATION: [...] Staff: ALBINA COWAN MD, FACR, STAFF RADIOLOGIST (Safety And Security Manager) /BSF ALBINA COWAN [facility] July 13, 2022 10:07 AM ELBOW LEFT 3 OR MORE VIEWS: BERNARDMARYJO CAVAZOS [id number] -1950 M Exm Date: JULY 13, 2022@10:07 Req Phys: WHITNEY ANDERSON Pat Loc: [facility] EMERGENCY DEPT WALK-IN (Re Img Loc: MAIN X-RAY Service: Unknown (Case [id number] COMPLETE) ELBOW LEFT 3 OR MORE VIEWS (RAD Detailed) CPT:88672 Proc Modifiers : LEFT Reason for Study: [...] pager listed below: User placing orders pager: [phone] LAST CREATININE 0.8 (05/10/22) Report Status: Verified Date Reported: JULY 13, 2022 Date Verified: JULY 13, 2022 Safety And Security Manager E-Sig:/SANGITA/ALBINA COWAN MD, FACR, CCD Report: EXAMINATION: [...] Staff: ALBINA COWAN MD, FACR, STAFF RADIOLOGIST (Safety And Security Manager) /ALBINA NATHAN [facility] July 13, 2022 10:07 AM FOREARM LEFT 2 VIEWS: MARYJO WAGNER [id number] -1950 M Exm Date: JULY 13, 2022@10:07 Req Phys: MONICAWHITNEY MARIN Pat Loc: [facility] EMERGENCY DEPT WALK-IN (Re Img Loc: MAIN X-RAY Service: Unknown (Case [id number] COMPLETE) FOREARM LEFT 2 VIEWS (RAD Detailed) CPT:01364 Proc Modifiers : LEFT Reason for Study: L arm pain Clinical History: [place] IS NOT under investigation for COVID-19 or is COVID-19 negative Atraumatic left upper extremity pain that is located midshaft humerus distally to the mid forearm. Clinical concern for dislocation versus fracture versus bone mets Responsible provider name and phone number to notify for critical findings if other than user placing the order and pager listed below: User placing orders pager: [phone] LAST CREATININE 0.8 (05/10/22) Report Status: Verified Date Reported: JULY 13, 2022 Date Verified: JULY 13, 2022 Safety And Security Manager E-Sig:/ES/ALBINA COWAN MD, FACR, [facility] Report: EXAMINATION: FOREARM LEFT 2 VIEWS [...] Staff: ALBINA COWAN MD, FACR, STAFF RADIOLOGIST (Safety And Security Manager) /ALBINA NATHAN [facility] Pathology Reports: +/- 30 days of [...] the Encounter. The data comes from all [place] treatment facilities. Date/Time Pathology Report Provider Source July 13, 2022 04:06 PM LR SURGICAL PATHOL OGY REPORT: LOCAL TITLE: LR SURGICAL PATHOLOGY REPORT STANDARD TITLE: PATHOLOGY REPORT DATE OF NOTE: JULY 21, 2022@14:37:27 ENTRY DATE: JULY 21, 2022@14:37:27 AUTHOR: JIAN SANDOVAL EXP COSIGNER: URGENCY: STATUS: COMPLETED $APHDR Reporting Lab: [facility] [CLIA# [id number]] [place] [address] - - - - - - - [...] PATHOLOGY & LABORATORY [place] [facility] [place] July 21, 2022@14:37 Performing Laboratory: Surgical Pathology Report Performed By: [facility] [CLIA# [id number]] [place] [address] $FTR - - - - - - [...] - - MARYJO WAGNER STANDARD FORM 515 ID:[id number] SEX:M :1950 AGE: 72 LOC:[facility] PATHOLOGY PRO FEE ADM:June DX:PATHOLOGIC FX LF HUMERUS PCP: Leif Balbuena MD /sangita/ JIAN SANDOVAL STAFF PATHOLOGIST, PATHOLOGY & LABORATORY [facility] [place] Signed: 07/21/2022 14:37 JIAN SANDOVAL [facility] Encounter Notes: All associated encounter notes This section contains the clinical notes associated to the Encounter. Date/Time Encounter Note(s) Provider Source July 18, 2022 09:54 AM CRITICAL CARE UNIT NOTE: [facility] STANDARD TITLE: CRITICAL CARE UNIT NOTE DATE OF NOTE: JULY 18, 2022@09:54 ENTRY DATE: JULY 18, 2022@16:40:41 AUTHOR: SYSTEM,CIS-ARK EXP COSIGNER: URGENCY: STATUS: COMPLETED This is a place casey only. Please see [employer] to view document. /es/ CIS-ARK SYSTEM ICU DOCUMENT IMPORT Signed: 07/18/2022 16:40 SYSTEM,CIS-JACQUELINEK [facility]
--- OUTSIDE RECORDS SUMMARY | 2023-03-24 08:41 | XMS_ITS | Encounter Summary ---
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 Vetera [facility] Organization Department of Vetera ns [facility] Address [address] [place] [address] Support Name Relationship Address Phone DOREEN WAGNER Next of Kin [address] [place] [phone] DOREEN Emergency Contact [address] [place] [phone] Insurance Providers: All historical and current [...] [place]'s Name Patient's Relationship to Policy [place] [facility] MEDICARE ADVANTAGE MCR ([facility]) June 26, 2016 [id number] JOAN WAGNER [facility] MEDICARE ADVANTAGE MCR ([facility]) June 26, 2016 [id number] [phone] JOAN WAGNER KARSTEN PATIENT [facility] ([facility]) MEDICARE ADVANTAGE MCR ([facility]) June 26, 2016 [id number] [phone] CARSONJOAN ROWELL PATIENT Selected Encounter This section includes the information on record at AL for the Encounter. Date/Time Encounter Type Encounter Description Reason Provider Source July 18, 2022 04:11 PM OFFICE O/P EST HI 40-54 MIN ANES SPECIAL PROCS IN OR SUITE ICD-10-CM Z01.818 Encounter for other preprocedural examination CHARLES ABARCA Encounter Template Text not used by AL Assessments - Encounter Diagnoses This section includes the primary and secondary diagnoses documented for the Encounter. Date/Time Primary/Secondary Diagnosis Diagnosis Name Provider Source July 18, 2022 04:12 PM PRIMARY Encounter for other preprocedural examination CHARLES ABARCA [facility] Plan of Treatment: Future Appointments (+ 6 months) and Future Tests (+/- 45 days) The Plan of Treatment section includes future care activities for the [facility] This section includes future appointments and future orders which are active, pending or scheduled. Future Appointments This section includes appointments that were scheduled to occur 6 months from the date of the Encounter, up to a maximum of 20 appointments. The [facility] Appointment Date/Time Appointment Type Appointme nt Facility Name Jul 28, 2022 10:45 AM AMBULATORY - MEDICINE [facility] Aug 13, 2022 06:13 PM AMBULATORY - MEDICINE [facility] Aug 23, 2022 09:30 AM AMBULATORY - SURGERY [facility] Aug 23, 2022 09:45 AM AMBULATORY - NONE [facility] Aug 23, 2022 10:30 AM AMBULATORY - MEDICINE [facility] Aug 23, 2022 10:31 AM AMBULATORY - MEDICINE [facility] Sep 06, 2022 10:15 AM AMBULATORY - SURGERY [facility] Oct 25, 2022 07:00 AM AMBULATORY - NONE [facility] Oct 25, 2022 07:30 AM AMBULATORY - SURGERY [facility] Oct 25, 2022 09:00 AM AMBULATORY SURGERY [facility] Active, Pending, and Scheduled Orders This section includes a listing of several types of active, pending, and scheduled orders, including clinic medications orders, diagnostic test orders, procedure orders and consult orders; where the start date of the order is 45 days before the date of the Encounter or 45 days after the date of theEncounter. The [facility] comes from [facility] Test Date/Time Test Type Test Details Facility Name Jun 12, 2022 12:00 AM Laboratory - Chemistry Order CBC & DIFF BLOOD ONCO SP ONCE [facility] Jun 12, 2022 12:00 AM Laboratory - Chemistry Order COMPREHENSIVE METABOLIC PANEL+MG PLASMA ONCO SP ONCE [facility] Jun 12, 2022 12:00 AM Laboratory - Chemistry Order TSH W/REFLEX TO FREE T4 PLASMA ONCO SP ONCE [facility] July 14, 2022 12:00 AM Laboratory - Blood Bank Order ABO/RH - LAB BLOOD [facility] July 14, 2022 02:05 PM Laboratory - Blood Bank Order TYPE & SCREEN - LAB BLOOD [facility] Aug 07, 2022 11:23 AM Laboratory - Chemistry Order DRUG SCREEN PANEL,URINE URINE [facility] Aug 23, 2022 10:47 AM Laboratory - Chemistry Order URINALYSIS URINE ER STAT [facility] Lab Results: +/- 30 days of the encounter This section includes the Chemistry and Hematology Lab Results on record with AL for the patient. Radiology Reports and Pathology Reports are provided separately, in subsequent sections. Lab Results This section contains the Chemistry/Hematology Results that were resulted 30 days before or 30 daysafter the date of the Encounter. Date/Time Source Result Type Result - Unit Interpretation Reference Range Comment July 19, 2022 04:40 PM [facility] FINGERSTICK GLUCOSE Specimen Type: BLOOD Comment: Save Result Nurse Notified Ordering Provider: MACKENZIE COTTER Report Released Date/Time: July 19, 2022 05:00 PM Reporting Lab: [facility] [address] Performing Lab: [facility] [address] FINGERSTICK GLUCOSE 132 70-100 July 19, 2022 07:13 AM [facility] COMPREHENSIVE METABOLIC PANEL+MG Specimen Type: PLASMA No comment entered. Ordering Provider: MACKENZIE COTTER Report Released Date/Time: July 18, 2022 05:40 PM Reporting Lab: [facility] [address] Performing Lab: [facility] [address] CREATININE 0.9 0.7-1.2 UREA NITROGEN 24 8-26 [...] July 18, 2022 05:40 PM Reporting Lab: [facility] [address] Performing Lab: [facility] [address] IRON 28 L 65-175 TIBC,CALCULATE D 223 L 250-425 FERRITIN 73.7 21.8-274.7 IRON SATURATION 13 L 20-50 TRANSFERRIN 178 163-382 July 19, 2022 07:13 AM [facility] CBC Specimen Type: BLOOD No comment entered. Ordering Provider: MACKENZIE COTTER Report Released Date/Time: July 18, 2022 05:40 PM Reporting Lab: [facility] [address] Performing Lab: [facility] [address] WBC 7.73 4.0-11.0 RBC 2.42 L 4.6-6.2 [...] July 19, 2022 11:54 AM Reporting Lab: [facility] [address] Performing Lab: [facility] [address] FINGERSTICK GLUCOSE 137 70-100 July 18, 2022 10:51 PM [facility] FINGERSTICK GLUCOSE Specimen Type: BLOOD Comment: Save Result Nurse Notified Ordering Provider: MACKENZIE COTTER Report Released Date/Time: July 18, 2022 11:06 PM Reporting Lab: [facility] [address] Performing Lab: [facility] [address] FINGERSTICK GLUCOSE 163 70-100 July 17, 2022 06:51 AM [facility] BASIC METABOLIC PANEL+MG Specimen Type: PLASMA No comment entered. Ordering Provider: DANG VALLE R Report Released Date/Time: July 16, 2022 09:37 AM Reporting Lab: [facility] [address] Performing Lab: [facility] [address] CREATININE 0.8 0.7-1.2 UREA NITROGEN 23 8-26 [...] July 16, 2022 09:37 AM Reporting Lab: [facility] [address] Performing Lab: [facility] [address] .INR 1.0 0.8-1.1 .PT 11.5 9.4-12.5 July 17, 2022 06:51 AM [facility] CBC Specimen Type: BLOOD No comment entered. Ordering Provider: DANG VALLE R Report Released Date/Time: July 16, 2022 09:37 AM Reporting Lab: [facility] [address] Performing Lab: [facility] [address] WBC 6.05 4.0-11.0 RBC 3.77 L 4.6-6.2 [...] July 13, 2022 11:04 AM Reporting Lab: [facility] [address] Performing Lab: [facility] [address] COVID-19 (CEPHEID) Not Detected Not Detected INFLUENZA A (PCR) Not Detected Not Detected INFLUENZA B (PCR) Not Detected Not Detected RSV (PCR) Not Detected Not Detected July 13, 2022 11:00 AM [facility] C-REACTIVE PROTEIN Specimen Type: SERUM Comment: Automated Differential Performed Ordering Provider: WHITNEY ANDERSON Report Released Date/Time: July 13, 2022 11:04 AM Reporting Lab: [facility] [address] Performing Lab: [facility] [address] C-REACTIVE PROTEIN 1.17 <5.00 July 13, 2022 11:00 AM [facility] PROTHROMBIN TIME/INR Specimen Type: PLASMA No comment entered. Ordering Provider: WHITNEY ANDERSON Report Released Date/Time: July 13, 2022 11:04 AM Reporting Lab: [facility] [address] Performing Lab: [facility] [address] .INR 0.9 0.8-1.1 .PT 11.1 9.4-12.5 July 13, 2022 11:00 AM [facility] SED RATE Specimen Type: BLOOD No comment entered. Ordering Provider: WHITNEY ANDERSON Report Released Date/Time: July 13, 2022 11:04 AM Reporting Lab: [facility] [address] Performing Lab: [facility] [address] SED RATE 10 5-15 July 13, 2022 11:00 AM [facility] CBC & DIFF Specimen Type: BLOOD Comment: Automated Differential Performed Ordering Provider: WHITNEY ANDERSON Report Released Date/Time: July 13, 2022 11:04 AM Reporting Lab: [facility] [address] Performing Lab: [facility] [address] WBC 8.82 4.0-11.0 RBC 3.89 L 4.6-6.2 [...] July 13, 2022 11:04 AM Reporting Lab: [facility] [address] Performing Lab: [facility] [address] CREATININE 1.0 0.7-1.2 UREA NITROGEN 16 8-26 [...] Source July 18, 2022 11:14 PM 9 [facility] July 18, 2022 11:14 PM 9 [facility] July 18, 2022 10:53 PM 98.6 F 68 /min 114/73 mm[Hg] 18 /min 95 % 8 [facility] July 18, 2022 09:30 PM 8 [facility] July 18, 2022 08:59 PM 9 [facility] Social History: Smoking Status (Most current) and Tobacco Use (All prior to encounter date) This section includes the most current, and the historical, smoking and tobacco- related health factors from the AL facility where the Encounter took place. Current Smoking Status This section includes the most current smoking, or tobacco-related health factor, from the AL facility where the Encounter took place. Date/Time Current Smoking Status Comment Facil ity May 10, 2022 09:15 AM VA-TOBACCO FORMER USER [facility] Tobacco Use History This section includes a history of the smoking, or tobacco-related health factors, that were collected on or before the date of the Encounter. The data comes from the AL facility where the Encounter took place. Date/Time [...] ALL of a patient's completed or amended AL Advance and Rescinded Directives. The entries below indicate that a directive exists for the patient, but an actual copy is not included with this document. The data comes from all AL facilities. Date Advance Directives Provider Source Mar 18, 2003 ADVANCE DIRECTIVE FARHAT MELGAR [facility] Radiology Reports: +/- 30 [...] the Encounter. The data comes from all AL treatment facilities. Date/Time Radiology Report Provider Source July 20, 2022 07:50 AM CHEST 1 VIEW: MARYJO WAGNER [id number] -1950 M Exm Date: JULY 20, 2022@07:50 Req Phys: MACKENZIE COTTER Pat Loc: 07-20-2022@08:26 Img Loc: MAIN X-RAY Service: PRIMARY CARE - MED OFFICE (Case [id number] COMPLETE) CHEST 1 VIEW (RAD Detailed) CPT:97498 Proc Modifiers : PORTABLE EXAM Reason for Study: see below. thanks. Clinical History: IS NOT under investigation for COVID-19 or is COVID-19 negative Please further evaluate for acute airspace disease given o2 requirement. Thanks. Responsible provider name and phone number to notify for critical findings if other than user placing the order and pager listed below: User placing orders pager: [phone] same LAST CREATININE 0.9 (07/19/22) Report Status: Verified Date Reported: JULY 20, 2022 Date Verified: JULY 20, 2022 Senior C Software Developer E-Sig:/ES/JAMIE MIGUEL MD Report: EXAM: CHEST 1 VIEW HISTORY: see below. thanks. Reason for Study: see below. thanks. [place] IS NOT under investigation for COVID-19 or is COVID-19 negative Please further evaluate for acute airspace disease given o2 requirement. Thanks. Responsible provider name and phone number to notify for critical findings if other than user placing the order and pager listed below: User placing orders pager: [phone] same LAST CREATININE 0. COMPARISON: Chest CT [...] Primary Interpreting Staff: JAMIE MIGUEL MD, RADIOLOGIST (Senior C Software Developer) /JAMIE FRANCES [facility] July 18, 2022 12:59 PM ELBOW LEFT 2 VIEWS: MARYJO WAGNER [id number] -1950 M Exm Date: JULY 18, 2022@12:59 Req Phys: LEIF BALBUENA Loc: OR-PACU/07-18-2022@13:59 Img Loc: MAIN X-RAY Service: ZZSURGICAL SERVICE (Case [id number] COMPLETE) ELBOW LEFT 2 VIEWS (RAD Detailed) CPT:88647 Proc Modifiers : PORTABLE EXAM, OPERATING ROOM EXAM Reason for Study: post-op Clinical History: post-op Report Status: Verified Date Reported: JULY 18, 2022 Date Verified: JULY 18, 2022 Senior C Software Developer E-Sig:/ES/JAKUB LEE MD Report: EXAM: ELBOW LEFT [...] Primary Interpreting Staff: JAKUB LEE MD, RADIOLOGIST (Senior C Software Developer) /JAKUB LUCERO [facility] July 18, 2022 07:30 AM FLUORO UP TO 1 HR PHYSICIAN TIME: BERNARDMARYJO GLOVERTARA [id number] -1950 M Exm Date: JULY 18, 2022@07:30 Req Phys: LEIF BALBUENA Loc: OR-PACU/07-18-2022@13:14 Img Loc: MAIN X-RAY Service: PRIMARY CARE - MED OFFICE (Case [id number] COMPLETE) FLUORO UP TO 1 HR PHYSICIAN TIME (RAD Detailed) CPT:63338 Proc Modifiers : PORTABLE EXAM, OPERATING ROOM EXAM, LEFT Reason for Study: Left distal humerous ORIF Clinical History: OR 7 Pathologic distal humeral shaft fracture Responsible provider name and phone number to notify for critical findings if other than user placing the order and pager listed below: User placing orders pager: Henry BALBUENA [phone] LAST CREATININE 0.8 (07/17/22) Report Status: Electronically Filed Date Reported: JULY 18, 2022 Report: Impression: Please see the full report for this procedure in [facility] patient progress notes. Fluoro guidance was provided [...] 03:28 PM ABDOMINAL AORTOGRAM (P): MARYJO WAGNER [id number] -1950 M Exm Date: JULY 17, 2022@15:28 Req Phys: MALCOM LANGLEY Loc: 07-17-2022@15:54 Img Loc: INTERVENTIONAL RADIOLOGY Service: PRIMARY CARE - MED OFFICE (Case 527 COMPLETE) ANGIOGRAPHY EXTREMITY UNILAT S&I (ANI Detailed) CPT:58116 Reason for Study: codes (Case 528 COMPLETE) IR AORTOGRAPHY ABDOMINAL W/O RUNO(ANI Detailed) CPT:61447 (Case 529 COMPLETE) IR FOREIGN BODY REMOVAL INTRAVASC(ANI Detailed) CPT:98064 (Case 532 COMPLETE) IR NEEDLE/INTRACATH PLACEMENT EXT(ANI Detailed) CPT:88856 (Case 533 COMPLETE) IR PLACEMENT OCCLUSIVE DEVICE SAM(ANI Detailed) CPT:G0269 Clinical History: codes Report Status: Verified Date Reported: JULY 17, 2022 Date Verified: JULY 17, 2022 Senior C Software Developer E-Sig:/ES/MALCOM LANGLEY MD Report: RADIOLOGIST: Malcom Langley [...] angiogram and runoff. 12. Closure of right RADIO ELECTRONICS TECHNICIAN with Angio-Seal device. HISTORY: Metastatic renal cell [...] into the left brachial artery. The 5 Maldivian sheath was exchanged for a 6 Maldivian sheath that was advanced into the left [...] arteries. Sheath and catheters were removed and RADIO ELECTRONICS TECHNICIAN arteriotomy was closed using Angioseal. There is patent hemostasis. No bleeding or hematoma noted. Sterile dressing applied. 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 Primary Interpreting Staff: MALCOM LANGLEY MD, INTERVENTIONAL RADIOLOGIST (Senior C Software Developer) /MALCOM HE [facility] July 17, 2022 07:30 AM RENAL ARTERY EMBOLIZATION (P): MARYJO WAGNER [id number] -1950 M Exm Date: JULY 17, 2022@07:30 Req Phys: PEDROWESTON [facility] Loc: 07-17-2022@15:46 Img Loc: INTERVENTIONAL RADIOLOGY Service: PRIMARY CARE - MED OFFICE (Case 130 COMPLETE) IR TRANSCATH EMBOLIZATION W/ANGIO(ANI Detailed) CPT:42500 Reason for Study: embolization of RCC mets to left humerus (Case 131 COMPLETE) IR ARTERIAL EMBOLIZATION OTHER TH(ANI Detailed) CPT:80961 (Case 132 COMPLETE) IR US GUIDANCE VASCULAR ACCESS (ANI Detailed) CPT:78751 Clinical History: [place] IS NOT under investigation for COVID-19 or [...] pager listed below: User placing orders pager: [phone] LAST CREATININE 1.0 (07/13/22) Report Status: Verified Date Reported: JULY 17, 2022 Date Verified: JULY 17, 2022 [employer] E-Sig:/ES/MALCOM LANGLEY MD Report: RADIOLOGIST: Malcom Langley [...] angiogram and runoff. 12. Closure of right RADIO ELECTRONICS TECHNICIAN with Angio-Seal device. HISTORY: Metastatic renal cell [...] into the left brachial artery. The 5 Maldivian sheath was exchanged for a 6 Maldivian sheath that was advanced into the left [...] arteries. Sheath and catheters were removed and RADIO ELECTRONICS TECHNICIAN arteriotomy was closed using Angioseal. There is patent hemostasis. No bleeding or hematoma noted. Sterile dressing applied. 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 Primary Interpreting Staff: MALCOM LANGLEY MD, INTERVENTIONAL RADIOLOGIST (Senior C Software Developer) /MALCOM HE [facility] July 14, 2022 06:44 AM HUMERUS LEFT MINIMUM 2 VIEWS: MARYJO WAGNER [id number] -1950 M Exm Date: JULY 14, 2022@06:44 Req Phys: WESTON VASQUEZ Pat Loc: 07-14-2022@07:13 Img Loc: MAIN X-RAY Service: PRIMARY CARE - MED OFFICE (Case [id number] COMPLETE) HUMERUS LEFT MINIMUM 2 VIEWS (RAD Detailed) CPT:55181 Reason for Study: post reduction Clinical History: Report Status: Verified Date Reported: JULY 14, 2022 Date Verified: JULY 14, 2022 Senior C Software Developer E-Sig: Report: HUMERUS LEFT MINIMUM 2 VIEWS HISTORY: post reduction COMPARISON: 07/13/2022 TECHNIQUE: 2 view(s) of the humerus, submitted to the [place] National Teleradiology Program (NTP) for interpretation. FINDINGS: [...] less likely. READING PHYSICIAN: Xavier Merrill MD -[id number] 07/14/2022 5:11 [facility] National Teleradiology Program [phone] (For Medical Practitioner Use Only) Attention Patients / Veterans: If you have questions or concerns about these test results, please contact your ordering provider or primary care team. Primary Interpreting Staff: RADIOLOGY,OUTSIDE SERVICE, Staff Physician / RADIOLOGY,OUTSIDE SERVICE [facility] July 13, 2022 10:07 AM ELBOW LEFT 3 OR MORE VIEWS: MARYJO WAGNER [id number] -1950 M Exm Date: JULY 13, 2022@10:07 Req Phys: WHITNEY ANDERSON Loc: [facility] EMERGENCY DEPT WALK-IN (Re Img Loc: MAIN X-RAY Service: Unknown (Case [id number] COMPLETE) ELBOW LEFT 3 OR MORE VIEWS (RAD Detailed) CPT:14817 Proc Modifiers : LEFT Reason for Study: L arm pain Clinical History: [place] IS NOT under investigation for COVID-19 or is COVID-19 negative Atraumatic left upper extremity pain that is located midshaft humerus distally to the mid forearm. Clinical concern for dislocation versus fracture versus bone mets Responsible provider name and phone number to notify for critical findings if other than user placing the order and pager listed below: User placing orders pager: [phone] LAST CREATININE 0.8 (05/10/22) Report Status: Verified Date Reported: JULY 13, 2022 Date Verified: JULY 13, 2022 Senior C Software Developer E-Sig:/ES/ALBINA COWAN MD, FACR, CCD Report: EXAMINATION: [...] Staff: ALBINA COWAN MD, FACR, STAFF RADIOLOGIST (Senior C Software Developer) /BSF ALBINA COWAN [facility] July 13, 2022 10:07 AM HUMERUS LEFT MINIMUM 2 VIEWS: MARYJO WAGNER [id number] -1950 M Exm Date: JULY 13, 2022@10:07 Req Phys: WHITNEY ANDERSON Pat Loc: [facility] EMERGENCY DEPT WALK-IN (Re Im Loc: MAIN X-RAY Service: Unknown (Case 2151 COMPLETE) HUMERUS LEFT MINIMUM 2 VIEWS (RAD Detailed) CPT:25841 Proc Modifiers : LEFT Reason for Study: [...] pager listed below: User placing orders pager: [phone] LAST CREATININE 0.8 (05/10/22) Report Status: Verified Date Reported: JULY 13, 2022 Date Verified: JULY 13, 2022 Senior C Software Developer E-Sig:/ES/ALBINA COWAN MD, FACR, CCD Report: EXAMINATION: [...] Staff: ALBINA COWAN MD, FACR, STAFF RADIOLOGIST (Senior C Software Developer) /BSF ALBINA COWAN [facility] July 13, 2022 10:07 AM FOREARM LEFT 2 VIEWS: MARYJO WAGNER [id number] -1950 M Exm Date: JULY 13, 2022@10:07 Req Phys: WHITNEY ANDERSON Pat Loc: [facility] EMERGENCY DEPT WALK-IN (Re Img Loc: MAIN X-RAY Service: Unknown (Case 2151 COMPLETE) FOREARM LEFT 2 VIEWS (RAD Detailed) CPT:20685 Proc Modifiers : LEFT Reason for Study: L arm pain Clinical History: [place] IS NOT under investigation for COVID-19 or is COVID-19 negative Atraumatic left upper extremity pain that is located midshaft humerus distally to the mid forearm. Clinical concern for dislocation versus fracture versus bone mets Responsible provider name and phone number to notify for critical findings if other than user placing the order and pager listed below: User placing orders pager: [phone] LAST CREATININE 0.8 (05/10/22) Report Status: Verified Date Reported: JULY 13, 2022 Date Verified: JULY 13, 2022 Senior C Software Developer E-Sig:/ES/ALBINA COWAN MD, FACR, CCD Report: EXAMINATION: [...] Staff: ALBINA COWAN MD, FACR, STAFF RADIOLOGIST (Senior C Software Developer) /BSF ALBINA COWAN [facility] Pathology Reports: +/- 30 [...] the Encounter. The data comes from all [place] treatment facilities. Date/Time Pathology Report Provider Source July 13, 2022 04:06 PM LR SURGICAL PATHOL OGY REPORT: LOCAL TITLE: LR SURGICAL PATHOLOGY REPORT STANDARD TITLE: PATHOLOGY REPORT DATE OF NOTE: JULY 21, 2022@14:37:27 ENTRY DATE: JULY 21, 2022@14:37:27 AUTHOR: JIAN SANDOVAL EXP COSIGNER: URGENCY: STATUS: COMPLETED $APHDR Reporting Lab: [facility] [CLIA# [id number]] [place] [address] - - - - - - - [...] SANDOVAL STAFF PATHOLOGIST, PATHOLOGY & LABORATORY [facility] [place] July 21, 2022@14:37 Performing Laboratory: Surgical Pathology Report Performed By: [facility] [CLIA# [id number]] [place] [address] $FTR - - - - - - - - - - - - - - - - - - - - - - - - - - - - - - - - - - - - - - - - (End of report) JINA SANDOVAL MD rks Date July 21, 2022 - - - - - - - - - - - - - - - - - - - - - - - - - - - - - - - - - - - - - - - - MARYJO WAGNER STANDARD FORM 515 ID:[id number] SEX:M :1950 AGE: 72 LOC:[facility] PATHOLOGY PRO FEE ADM:June DX:PATHOLOGIC FX LF HUMERUS PCP: Leif Balbuena MD /sangita/ JIAN SANDOVAL STAFF PATHOLOGIST, PATHOLOGY & LABORATORY [facility] [place]igned: 07/21/2022 14:37 JIAN SANDOVAL [facility] Encounter Notes: All associated encounter notes This section contains the clinical notes associated to the Encounter. Date/Time Encounter Note(s) Provider Source July 18, 2022 04:12 PM ANESTHESIOLOGY PRO CEDURE NOTE: LOCAL TITLE: ANESTHESIA PROCEDURE NOTE STANDARD TITLE: ANESTHESIOLOGY PROCEDURE NOTE DATE OF NOTE: JULY 18, 2022@16:12 ENTRY DATE: JULY 18, 2022@16:12:16 AUTHOR: CHARLES ABARCA COSIGNER: URGENCY: STATUS: COMPLETED ANESTHESIA REGIONAL/NEURAXIAL BLOCK PLACEMENT --------PRE-PROCEDURE TIMEOUT--------- Informed consent was obtained and placed in the patients electronic medical record. If another practitioner was substituted to participate or perform the procedure for any of those named in the informed consent, the patient was informed of the change and the patients verbal consent was obtained. ~~~~~~~~~~~~~~~~~~~~~~~~~~~~~~ ~~~~~~~~~~~~~~~~~~~~~~PRE-PROC EDURE ANESTHESIOLOGIST INITIATED TIMEOUT~~~~ Confirmation of patient identity with patient stating: Full name Date of Procedure(s) to be performed Laterality Confirmation by participants of correct patient (arm band), procedure and laterality. Visual confirmation by participants that the surgical site is marked. Visual confirmation by participants that the regional block site is marked. Validity of surgical informed consent checked by participants. Validity of regional block informed consent checked by participants. Verbal agreement by participants of patients correct position. Confirmation of emergency airway equipment and emergency medications including intralipid rescue. Allergies Time out participants: Anesthesiologist: Pawel (Bg)/ He (Serena) Certified Registered Nurse Non Categorical Preschool Teacher: N/A Non-Anesthesia provider for time out: SUKI Hines Time block placed: 1530 Standard monitors applied (BP, ECG, SPO2), and patent IV access verified. ~~~~~~~~~~~~~~~~~~~~~~~~~~~~~~ ~~~~~~~~~~~~~~~~~~~~~~~~~~~SIT E PREPARATION~~~~ Asepsis Chlorhexidine Sterile gloves Hand washing Hat Mask Block tray Sterile drape Technique Catheter 7 cm at skin Needle ecath 83 mm ~~~~~~~~~~~~~~~~~~~~~~~~~~~~~~ ~~~~~~~~~~~~~~~~~~~~~~~~PLACEM ENT TECHNIQUE~~~~ [place] Ultrasound guided Local anesthetic spread visualized around nerves or fascial plane Sterile probe cover used Relevant structures identified Nerve bundles identified US images saved?: No ~~~~~~~~~~~~~~~~~~~~~~~~~~~~~~ ~~~~~~~~~~~~~~~~~~~~~~~~~~~~BL OCK PERFORMED~~~~ Laterality Left Block(s) performed: Infraclavicular brachial plexus (parasagittal approach) ~~~~~~~~~~~~~~~~~~~~~~~~~~~~~~ ~~~~~~~~~~~~~~~~~~~ANESTHETIC AND ADDITIVES~~~~ Ropivacaine .2 % - 30 mls ~~~~~~~~~~~~~~~~~~~~~~~~~~~~~~ ~~~~~~~~~~~~~~~BLOCK EFFICACY AND PLACEMENT~~~~ Negative pain on injection Injection resistance minimal (<15 psi/by feel) Negative aspiration prior to injection Success Uneventful placement, vital signs monitored throughout placement Block successfully placed, full evaluation pending /sangita/ CHARLES ABARCA MD ANESTHESIOLOGIST Signed: 07/18/2022 16:17 CHARLES ABARCA [facility]
--- OUTSIDE RECORDS SUMMARY | 2023-03-24 08:42 | XMS_ITS ---
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 of Vetera [facility] Address [address] [place] [address] Support Name Relationship Address Phone DOREEN WAGNER Next of Kin [address] [place] [phone] DOREEN Emergency Contact [address] [place] [phone] Insurance Providers: All historical and current [...] Name Patient's Relationship to Policy [place] [employer] [facility] (WNR) MEDICARE ADVANTAGE [facility] (R) June 26, 2016 [id number] JOAN WAGNER KARSTEN PATIENT [employer] MCR (WNR) MEDICARE ADVANTAGE [facility] (WNR) June 26, 2016 [id number] [phone] JOAN WAGNER KARSTEN PATIENT [employer] MCR (WNR) MEDICARE ADVANTAGE [facility] (WNR) June 26, 2016 [id number] JOAN WAGNER PATIENT Selected Encounter This section includes the information on record at SD for the Encounter. Date/Time Encounter Type Encounter Description Reason Pro vider Source July 18, 2022 07:08 PM Inpatient Visit DAILY HOSPITALIZATION DATA [facility] Encounter Template Text not used by SD Plan of Treatment: Future Appointments (+ 6 months) and Future Tests (+/- 45 days) The Plan of Treatment section includes future care activities for the patient from all SD treatmentfacilities. This section includes future appointments and [...] 28, 2022 10:45 AM [facility] Aug 13, 2022 06:13 PM AMBULATORY - MEDICINE [facility] Aug 23, 2022 09:30 AM AMBULATORY [facility] SURGERY [facility] Aug 23, 2022 09:45 AM [facility] Aug 23, 2022 10:30 AM AMBULATORY - MEDICINE [facility] Aug 23, 2022 10:31 AM AMBULATORY - MEDICINE [facility] Sep 06, 2022 10:15 AM AMBULATORY - SURGERY [facility] Oct 25, 2022 07:00 AM [facility] Oct 25, 2022 07:30 AM AMBULATORY - SURGERY [facility] Oct 25, 2022 09:00 AM AMBULATORY - SURGERY [facility] Active, Pending, and Scheduled Orders [...] CBC & DIFF BLOOD ONCO SP ONCE [facility] Jun 12, 2022 12:00 AM Laboratory - Chemistry Order COMPREHENSIVE METABOLIC PANEL+MG PLASMA ONCO SP [facility] Jun 12, 2022 12:00 AM Laboratory - Chemistry Order TSH W/REFLEX TO FREE T4 PLASMA ONCO SP ONCE [facility] July 14, 2022 12:00 AM Laboratory - Blood Bank Order ABO/RH - LAB BLOOD [facility] July 14, 2022 02:05 PM Laboratory - Blood Bank Order TYPE & SCREEN - LAB BLOOD [facility] Aug 07, 2022 11:23 AM Laboratory - Chemistry Order DRUG SCREEN PANEL,URINE URINE [facility] Aug 23, 2022 10:47 AM Laboratory - Chemistry Order URINALYSIS URINE ER STAT [facility] Lab Results: +/- 30 days of the encounter This section includes the Chemistry and Hematology Lab Results on record with SD for the patient. Radiology Reports and Pathology Reports are provided separately, in subsequent sections. Lab Results This section contains the Chemistry/Hematology Results that were resulted 30 days before or 30 daysafter the date of the Encounter. Date/Time Source Result Type Result - Unit Interpretation Reference Range Comment July 19, 2022 04:40 PM [facility] FINGERSTICK GLUCOSE Specimen Type: BLOOD Comment: Save Result Nurse Notified Ordering Provider: MACKENZIE COTTER Report Released Date/Time: July 19, 2022 05:00 PM Reporting Lab: [facility] [phone] Performing Lab: [facility] [address] FINGERSTICK GLUCOSE 132 70-100 July 19, 2022 07:13 AM [facility] COMPREHENSIVE METABOLIC PANEL+MG Specimen Type: PLASMA No comment entered. Ordering Provider: MACKENZIE COTTER Report Released Date/Time: July 18, 2022 05:40 PM Reporting Lab: [facility] [address] Performing Lab: [facility] [address] CREATININE 0.9 0.7-1.2 UREA NITROGEN 24 8-26 [...] See_Commen t July 19, 2022 07:13 AM [facility] IRON GROUP Specimen Type: SERUM No comment entered. Ordering Provider: MACKENZIE COTTER Report Released Date/Time: July 18, 2022 05:40 PM Reporting Lab: [facility] [address] Performing Lab: [facility] [address] IRON 28 L 65-175 TIBC,CALCULATE D 223 L 250-425 FERRITIN 73.7 21.8-274.7 IRON SATURATION 13 L 20-50 TRANSFERRIN 178 163-382 July 19, 2022 07:13 AM [facility] CBC Specimen Type: BLOOD No comment entered. Ordering Provider: MACKENZIE COTTER Report Released Date/Time: July 18, 2022 05:40 PM Reporting Lab: [facility] [phone] Performing Lab: [facility] [address] WBC 7.73 4.0-11.0 RBC 2.42 L 4.6-6.2 HGB 8.2 L 13.5-17.9 HCT 23.8 L 41-54 MCV 98.3 80-100 MCH 33.9 H 27-33 MCHC 34.5 32.0-37.5 PLT 155 150-400 MPV 9.6 7.4-10.4 RDW 13.5 11.5-14.5 July 19, 2022 05:44 AM [facility] FINGERSTICK GLUCOSE Specimen Type: BLOOD Comment: Save Result Nurse Notified Ordering Provider: MACKENZIE COTTER Report Released Date/Time: July 19, 2022 11:54 AM Reporting Lab: [facility] [address] Performing Lab: [facility] [address] FINGERSTICK GLUCOSE 137 70-100 July 18, 2022 10:51 PM [facility] FINGERSTICK GLUCOSE Specimen Type: BLOOD Comment: Save Result Nurse Notified Ordering Provider: MACKENZIE COTTER Report Released Date/Time: July 18, 2022 11:06 PM Reporting Lab: [facility] [address] Performing Lab: [facility] [address] FINGERSTICK GLUCOSE 163 70-100 July 17, 2022 06:51 AM [facility] BASIC METABOLIC PANEL+MG Specimen Type: PLASMA No comment entered. Ordering Provider: DNAG VALLE Report Released Date/Time: July 16, 2022 09:37 AM Reporting Lab: [facility] [address] Performing Lab: [facility] [address] CREATININE 0.8 0.7-1.2 UREA NITROGEN 23 8-26 GLUCOSE 107 H 70-100 SODIUM 139 136-145 POTASSIUM 3.9 3.5-5.1 CHLORIDE 106 98-107 CO2 28 22-29 CALCIUM 9.1 8.4-10.2 MAGNESIUM 1.9 1.6-2.6 ANION GAP 5 5-15 .CREAT EGFR(CKD-EPI) >90 See_Commen t July 17, 2022 06:51 AM [facility] PROTHROMBIN TIME/INR Specimen Type: PLASMA No comment entered. Ordering Provider: DANG VALLE R Report Released Date/Time: July 16, 2022 09:37 AM Reporting Lab: [facility] [address] Performing Lab: [facility] [address] .INR 1.0 0.8-1.1 .PT 11.5 9.4-12.5 July 17, 2022 06:51 AM [facility] CBC Specimen Type: BLOOD No comment entered. Ordering Provider: DANG VALLE R Report Released Date/Time: July 16, 2022 09:37 AM Reporting Lab: [facility] [address] Performing Lab: [facility] [address] WBC 6.05 4.0-11.0 RBC 3.77 L 4.6-6.2 HGB 12.7 L 13.5-17.9 HCT 36.0 L 41-54 MCV 95.5 80-100 MCH 33.7 H 27-33 MCHC 35.3 32.0-37.5 PLT 179 150-400 MPV 9.4 7.4-10.4 RDW 13.2 11.5-14.5 July 13, 2022 11:22 AM [facility] COVID-19 AND FLU/RSV DIAG PANEL(CEPHEID) Specimen Typ e: NASOPHARYNGEAL Comment: Cepheid GeneXpert (618) Ordering Provider: WHITNEY ANDERSON Report Released Date/Time: July 13, 2022 11:04 AM Reporting Lab: [facility] [address] Performing Lab: [facility] [address] COVID-19 (CEPHEID) Not Detected Not Detected INFLUENZA A (PCR) Not Detected Not Detected INFLUENZA B (PCR) Not Detected Not Detected RSV (PCR) Not Detected Not Detected July 13, 2022 11:00 AM [facility] C-REACTIVE PROTEIN Specimen Type: SERUM Comment: Automated Differential Performed Ordering Provider: WHITNEY ANDERSON Report Released Date/Time: July 13, 2022 11:04 AM Reporting Lab: [facility] [address] Performing Lab: [facility] [address] C-REACTIVE PROTEIN 1.17 <5.00 July 13, 2022 11:00 AM [facility] PROTHROMBIN TIME/INR Specimen Type: PLASMA No comment entered. Ordering Provider: WHITNEY ANDERSON Report Released Date/Time: July 13, 2022 11:04 AM Reporting Lab: [facility] [address] Performing Lab: [facility] [address] .INR 0.9 0.8-1.1 .PT 11.1 9.4-12.5 July 13, 2022 11:00 AM [facility] SED RATE Specimen Type: BLOOD No comment entered. Ordering Provider: WHITNEY ANDERSON Report Released Date/Time: July 13, 2022 11:04 AM Reporting Lab: [facility] [address] Performing Lab: [facility] [address] SED RATE 10 5-15 July 13, 2022 11:00 AM [facility] CBC & DIFF Specimen Type: BLOOD Comment: Automated Differential Performed Ordering Provider: WHITNEY ANDERSON Report Released Date/Time: July 13, 2022 11:04 AM Reporting Lab: [facility] [address] Performing Lab: [facility] [address] WBC 8.82 4.0-11.0 RBC 3.89 L 4.6-6.2 [...] 0.03 0-0.1 July 13, 2022 11:00 AM [facility] COMPREHENSIVE METABOLIC PANEL+MG Specimen Type: PLASMA Comment: Automated Differential Performed Ordering Provider: WHITNEY ANDERSON Report Released Date/Time: July 13, 2022 11:04 AM Reporting Lab: [facility] [address] Performing Lab: [facility] [address] CREATININE 1.0 0.7-1.2 UREA NITROGEN 16 8-26 [...] Source July 18, 2022 11:[address] [facility] July 18, 2022 11:[address] [facility] July 18, 2022 10:53 PM 98.6 F 68 /min 114/73 mm[Hg] 18 /min 95 % 8 [facility] July 18, 2022 09:[address] [facility] July 18, 2022 08:[address] [facility] Social History: Smoking Status (Most current) and Tobacco Use (All prior to encounter date) This section includes the most current, and the historical, smoking and tobacco- related health factors from the [place] facility where the Encounter took place. Current Smoking Status This section includes the most current smoking, or tobacco-related health factor, from the [place] facility where the Encounter took place. Date/Time Current Smoking Status Comment Facil ity May 10, 2022 09:15 AM SD-TOBACCO QUIT 15 YRS OR MORE [facility] Tobacco Use History This section includes a history of the smoking, or tobacco-related health factors, that were collected on or before the date of the Encounter. The data comes from the [place] facility where the Encounter took place. Date/Time Smoking Status/Tobacco Use Comment F acility May 10, 2022 09:15 AM VA-TOBACCO QUIT 15 YRS OR MORE [facility] May 11, 2021 09:15 AM VA-TOBACCO FORMER USER [facility] May 11, 2021 09:15 AM SD-TOBACCO QUIT 15 YRS OR MORE [facility] Nov 22, 2018 01:36 PM VA-TOBACCO NEVER USED [facility] Nov 12, 2017 07:35 AM FORMER TOBACCO USER 7Y OR GREATE R [facility] Nov 06, 2016 09:05 AM FORMER TOBACCO USER 7Y OR GREATE R [facility] Sep 27, 2015 09:42 AM FORMER TOBACCO USER 7Y OR GREATE R [facility] Sep 25, 2014 07:55 AM FORMER TOBACCO USER 7Y OR GREATE R [facility] Sep 08, 2013 07:48 AM FORMER TOBACCO USER 7Y OR GREATE R [facility] July 09, 2012 09:20 AM FORMER TOBACCO USE >1Y <7Y [facility] Jun 06, 2011 07:53 AM FORMER TOBACCO USE >1Y <7Y [facility] Sep 09, 2009 03:03 PM FORMER TOBACCO USE >1Y <7Y [facility] Aug 11, 2008 01:06 PM FORMER TOBACCO USE <1Y [facility] Sep 19, 2007 02:52 PM CURRENT TOBACCO USER [facility] Sep 03, 2006 03:32 PM CURRENT TOBACCO USER [facility] Advance Directives: All historical and current Section Date Range: From patient's date of to the date document was created. This section includes ALL of a patient's completed or amended [place] Advance and Rescinded Directives. The entries below indicate that a directive exists for the patient, but an actual copy is not included with this document. The data comes from all [facility]. Date Advance Directives Provider Source Mar 18, 2003 ADVANCE DIRECTIVE FARHAT MELGAR [facility] Radiology Reports: +/- 30 days of [...] the Encounter. The data comes from all [place] treatment facilities. Date/Time Radiology Report Provider Source July 20, 2022 07:50 AM CHEST 1 VIEW: MARYJO WAGNER [id number] -1950 M Exm Date: JULY 20, 2022@07:50 Req Phys: VAHEMACKENZIE Darwin Pat Loc: 07-20-2022@08:26 Img Loc: MAIN X-RAY Service: PRIMARY CARE - MED OFFICE (Case [id number] COMPLETE) CHEST 1 VIEW (RAD Detailed) CPT:51660 Proc Modifiers : PORTABLE EXAM Reason for Study: see below. thanks. Clinical History: IS NOT under investigation for COVID-19 or is COVID-19 negative Please further evaluate for acute airspace disease given o2 requirement. Thanks. Responsible provider name and phone number to notify for critical findings if other than user placing the order and pager listed below: User placing orders pager: [phone] same LAST CREATININE 0.9 (07/19/22) Report Status: Verified Date Reported: JULY 20, 2022 Date Verified: JULY 20, 2022 Emissions Testing Technician E-Sig:/ES/JAMIE MIGUEL MD Report: EXAM: CHEST 1 [...] pager listed below: User placing orders pager: [phone] same LAST CREATININE 0. COMPARISON: Chest CT [...] Primary Interpreting Staff: JAMIE MIGUEL MD, RADIOLOGIST (Emissions Testing Technician) /JAMIE FRANCES [facility] July 18, 2022 12:59 PM ELBOW LEFT 2 VIEWS: MARYJO WAGNER [id number] -1950 M Exm Date: JULY 18, 2022@12:59 Req Phys: LEIF BALBUENA Pat Loc: OR-PACU/07-18-2022@13:59 Img Loc: MAIN X-RAY Service: ZZSURGICAL SERVICE (Case [id number] COMPLETE) ELBOW LEFT 2 VIEWS (RAD Detailed) CPT:59714 Proc Modifiers : PORTABLE EXAM, OPERATING ROOM EXAM Reason for Study: post-op Clinical History: post-op Report Status: Verified Date Reported: JULY 18, 2022 Date Verified: JULY 18, 2022 Emissions Testing Technician E-Sig:/ES/JAKUB LEE MD Report: EXAM: ELBOW LEFT [...] Primary Interpreting Staff: JAKUB LEE MD, RADIOLOGIST (Emissions Testing Technician) /[facility] JAKUB LEE [facility] July 18, 2022 07:30 AM FLUORO UP TO 1 HR PHYSICIAN TIME: MARYJO WAGNER [id number] -1950 M Exm Date: JULY 18, 2022@07:30 Req Phys: LEIF BALBUENA Loc: OR-PACU/07-18-2022@13:14 Img Loc: MAIN X-RAY Service: PRIMARY CARE - MED OFFICE (Case [id number] COMPLETE) FLUORO UP TO 1 HR PHYSICIAN TIME (RAD Detailed) CPT:95270 Proc Modifiers : PORTABLE EXAM, OPERATING ROOM EXAM, LEFT Reason for Study: Left distal humerous ORIF Clinical History: OR 7 Pathologic distal humeral shaft fracture Responsible provider name and phone number to notify for critical findings if other than user placing the order and pager listed below: User placing orders pager: Henry BALBUENA [phone] LAST CREATININE 0.8 (07/17/22) Report Status: Electronically Filed Date Reported: JULY 18, 2022 Report: Impression: Please see the full report for this procedure in [facility] patient progress notes. Fluoro guidance was provided during this procedure, but the study was not reviewed or verified by a [facility] radiologist. The radiation exposure dose has been recorded in the patient's chart. If you are unable to view this data, please contact the Imaging Department. VERIFIED BY: / *ELECTRONICALLY FILED* [facility] July 17, 2022 03:28 PM ABDOMINAL AORTOGRAM (P): MARYJO WAGNER [id number] -1950 M Exm Date: JULY 17, 2022@15:28 Req Phys: MALCOM LANGLEY Loc: 07-17-2022@15:54 Img Loc: INTERVENTIONAL RADIOLOGY Service: PRIMARY CARE - MED OFFICE (Case [id number] COMPLETE) ANGIOGRAPHY EXTREMITY UNILAT S&I (ANI Detailed) CPT:95430 Reason for Study: codes (Case 528 COMPLETE) IR AORTOGRAPHY ABDOMINAL W/O RUNO(ANI Detailed) CPT:96312 (Case 529 COMPLETE) IR FOREIGN BODY REMOVAL INTRAVASC(ANI Detailed) CPT:50831 (Case 532 COMPLETE) IR NEEDLE/INTRACATH PLACEMENT EXT(ANI Detailed) CPT:38504 (Case 533 COMPLETE) IR PLACEMENT OCCLUSIVE DEVICE SAM(ANI Detailed) CPT:G0269 Clinical History: codes Report Status: Verified Date Reported: JULY 17, 2022 Date Verified: JULY 17, 2022 Emissions Testing Technician E-Sig:/ES/MALCOM LANGLEY MD Report: RADIOLOGIST: Malcom Langley [...] angiogram and runoff. 12. Closure of right OBSTETRICAL NURSE with Angio-Seal device. HISTORY: Metastatic renal cell [...] Sheath removed over guidewire and a 5 tunisian vascular sheath advanced over guidewire into the artery. An H1 catheter was advanced along with the guidewire into the thoracic arch and the left subclavian artery was selected. Catheter and the guidewire were advanced into the left brachial artery. The 5 Bahraini sheath was exchanged for a 6 Bahraini sheath that was advanced into the left [...] arteries. Sheath and catheters were removed and OBSTETRICAL NURSE arteriotomy was closed using Angioseal. There is patent hemostasis. No bleeding or hematoma noted. Sterile dressing applied. 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 Primary Interpreting Staff: MALCOM LANGLEY MD, INTERVENTIONAL RADIOLOGIST (Emissions Testing Technician) /MALCOM HE [facility] July 17, 2022 07:30 AM RENAL ARTERY EMBOLIZATION (P): MARYJO WAGNER [id number] -1950 M Exm Date: JULY 17, 2022@07:30 Req Phys: WESTON VASQUEZ Pat Loc: 07-17-2022@15:46 Img Loc: INTERVENTIONAL RADIOLOGY Service: PRIMARY CARE - MED OFFICE (Case [id number] COMPLETE) IR TRANSCATH EMBOLIZATION W/ANGIO(ANI Detailed) CPT:30874 Reason for Study: embolization of RCC mets to left humerus (Case 131 COMPLETE) IR ARTERIAL EMBOLIZATION OTHER TH(ANI Detailed) CPT:41147 (Case 132 COMPLETE) IR US GUIDANCE VASCULAR ACCESS (ANI Detailed) CPT:94369 Clinical History: IS NOT under investigation for [...] pager listed below: User placing orders pager: [phone] LAST CREATININE 1.0 (07/13/22) Report Status: Verified Date Reported: JULY 17, 2022 Date Verified: JULY 17, 2022 Emissions Testing Technician E-Sig:/ES/MALCOM LANGLEY MD Report: RADIOLOGIST: Malcom Langley [...] angiogram and runoff. 12. Closure of right OBSTETRICAL NURSE with Angio-Seal device. HISTORY: Metastatic renal cell [...] Sheath removed over guidewire and a 5 tunisian vascular sheath advanced over guidewire into the artery. An H1 catheter was advanced along with the guidewire into the thoracic arch and the left subclavian artery was selected. Catheter and the guidewire were advanced into the left brachial artery. The 5 Bahraini sheath was exchanged for a 6 Bahraini sheath that was advanced into the left [...] arteries. Sheath and catheters were removed and OBSTETRICAL NURSE arteriotomy was closed using Angioseal. There is patent hemostasis. No bleeding or hematoma noted. Sterile dressing applied. 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 Primary Interpreting Staff: MALCOM LANGLEY MD, INTERVENTIONAL RADIOLOGIST (Emissions Testing Technician) /MALCOM HE [facility] July 14, 2022 06:44 AM HUMERUS LEFT MINIMUM 2 VIEWS: BERNARDMARYJO DIRK [id number] -1950 M Ex Date: JULY 14, 2022@06:44 Req Phys: PEDROHERBERTJAIRO Chinchilla Loc: 07-14-2022@07:13 Img Loc: MAIN X-RAY Service: PRIMARY CARE - MED OFFICE (Case [id number] COMPLETE) HUMERUS LEFT MINIMUM 2 VIEWS (RAD Detailed) CPT:40799 Reason for Study: post reduction Clinical History: Report Status: Verified Date Reported: JULY 14, 2022 Date Verified: JULY 14, 2022 Emissions Testing Technician E-Sig: Report: HUMERUS LEFT MINIMUM 2 VIEWS HISTORY: post reduction COMPARISON: 07/13/2022 TECHNIQUE: 2 view(s) of the humerus, submitted to the [place] National Teleradiology Program (NTP) for interpretation. FINDINGS: [...] less likely. READING PHYSICIAN: Xavier Merrill MD -[phone] 07/14/2022 5:11 PDT [facility] National Teleradiology Program [phone] (For Medical Practitioner Use Only) Attention Patients / Veterans: If you have questions or concerns about these test results, please contact your ordering provider or primary care team. Primary Interpreting Staff: RADIOLOGY,OUTSIDE SERVICE, Staff Physician / RADIOLOGY,OUTSIDE SERVICE [facility] July 13, 2022 10:07 AM HUMERUS LEFT MINIMUM 2 VIEWS: MARYJO WAGNER [id number] -1950 M Ex Date: JULY 13, 2022@10:07 Req Phys: WHITNEY ANDERSON Pat Loc: [facility] EMERGENCY DEPT WALK-IN (Re Img Loc: MAIN X-RAY Service: Unknown (Case [id number] COMPLETE) HUMERUS LEFT MINIMUM 2 VIEWS (RAD Detailed) CPT:74895 Proc Modifiers : LEFT Reason for Study: L arm pain Clinical History: [place] IS NOT under investigation for COVID-19 or is COVID-19 negative Atraumatic left upper extremity pain that is located midshaft humerus distally to the mid forearm. Clinical concern for dislocation versus fracture versus bone mets Responsible provider name and phone number to notify for critical findings if other than user placing the order and pager listed below: User placing orders pager: [phone] LAST CREATININE 0.8 (05/10/22) Report Status: Verified Date Reported: JULY 13, 2022 Date Verified: JULY 13, 2022 Emissions Testing Technician E-Sig:/ES/ALBINA COWAN MD, FACR, CCD Report: EXAMINATION: [...] Staff: ALBINA COWAN MD, FACR, STAFF RADIOLOGIST (Emissions Testing Technician) /[facility] ALBINA COWAN [facility] July 13, 2022 10:07 AM FOREARM LEFT 2 VIEWS: MARYJO WAGNER [id number] -1950 M Exm Date: JULY 13, 2022@10:07 Req Phys: WHITNEY ANDERSON Pat Loc: [facility] EMERGENCY DEPT WALK-IN (Re Img Loc: MAIN X-RAY Service: Unknown (Case [id number] COMPLETE) FOREARM LEFT 2 VIEWS (RAD Detailed) CPT:27442 Proc Modifiers : LEFT Reason for Study: [...] pager listed below: User placing orders pager: [phone] LAST CREATININE 0.8 (05/10/22) Report Status: Verified Date Reported: JULY 13, 2022 Date Verified: JULY 13, 2022 Emissions Testing Technician E-Sig:/ES/ALBINA COWAN MD, FACR, CCD Report: EXAMINATION: [...] Staff: ALBINA COWAN MD, FACR, STAFF RADIOLOGIST (Emissions Testing Technician) /ALBINA NATHAN [facility] July 13, 2022 10:07 AM ELBOW LEFT 3 OR MORE VIEWS: MARYJO WAGNER [id number] -1950 M Exm Date: JULY 13, 2022@10:07 Req Phys: WHITNEY ANDERSON Pat Loc: [facility] EMERGENCY DEPT WALK-IN (Re Img Loc: MAIN X-RAY Service: Unknown (Case [id number] COMPLETE) ELBOW LEFT 3 OR MORE VIEWS (RAD Detailed) CPT:42430 Proc Modifiers : LEFT Reason for Study: L arm pain Clinical History: [place] IS NOT under investigation for COVID-19 or is COVID-19 negative Atraumatic left upper extremity pain that is located midshaft humerus distally to the mid forearm. Clinical concern for dislocation versus fracture versus bone mets Responsible provider name and phone number to notify for critical findings if other than user placing the order and pager listed below: User placing orders pager: [phone] LAST CREATININE 0.8 (05/10/22) Report Status: Verified Date Reported: JULY 13, 2022 Date Verified: JULY 13, 2022 Emissions Testing Technician E-Sig:/ES/ALBINA COWAN MD, FACR, CCD Report: EXAMINATION: [...] Staff: ALBINA COWAN MD, FACR, STAFF RADIOLOGIST (Emissions Testing Technician) /ALBINA NATHAN [facility] Pathology Reports: +/- 30 days of [...] the Encounter. The data comes from all [place] treatment facilities. Date/Time Pathology Report Provider Source July 13, 2022 04:06 PM LR SURGICAL PATHOL OGY REPORT: LOCAL TITLE: LR SURGICAL PATHOLOGY REPORT STANDARD TITLE: PATHOLOGY REPORT DATE OF NOTE: JULY 21, 2022@14:37:27 ENTRY DATE: JULY 21, 2022@14:37:27 AUTHOR: JIAN SANDOVAL EXP COSIGNER: URGENCY: STATUS: COMPLETED $APHDR Reporting Lab: [facility] [CLIA# [id number]] [place] [address] - - - - - - - [...] is entirely submitted in A-D. CE. (D). [facility] FROZEN SECTION DIAGNOSES: SPEC. 1 - [...] SANDOVAL STAFF PATHOLOGIST, PATHOLOGY & LABORATORY MED [facility] Signed July 21, 2022@14:37 Performing Laboratory: Surgical Pathology Report Performed By: [facility] [CLIA# [id number]] [place] [address] $FTR - - - - - - [...] - - MARYJO WAGNER STANDARD FORM 515 ID:[id number] SEX:M :1950 AGE: 72 LOC:[facility] PATHOLOGY PRO FEE ADM:June DX:PATHOLOGIC FX LF HUMERUS PCP: Leif Balbuena MD /sangita/ JIAN SANDOVAL STAFF PATHOLOGIST, PATHOLOGY & LABORATORY MED C Signed: 07/21/2022 14:37 JIAN SANDOVAL [facility]
--- OUTSIDE RECORDS SUMMARY | 2023-03-24 08:42 | XMS_ITS ---
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 of Vetera Man [facility] Address [address] [place] [address] Support Name Relationship Address Phone DOREEN WAGNER Next of Kin [address] [place] [phone] DOREEN Emergency Contact [address] [place] [phone] Insurance Providers: All historical and current [...] Name Patient's Relationship to Policy [place] [employer] [facility] (WNR) MEDICARE ADVANTAGE [facility] (R) June 26, 2016 [id number] JOAN WAGNER KARSTEN PATIENT [employer] MCR (WNR) MEDICARE ADVANTAGE [facility] (WNR) June 26, 2016 [id number] [phone] JOAN WAGNER KARSTEN PATIENT [employer] MCR (WNR) MEDICARE ADVANTAGE [facility] (WNR) June 26, 2016 [id number] JOAN WAGNER PATIENT Selected Encounter This section includes the information on record at [place] for the Encounter. Date/Time Encounter Type Encounter Description Reason Pro vider Source July 19, 2022 12:22 AM Inpatient Visit DAILY HOSPITALIZATION DATA [facility] Encounter Template Text not used by [place] Plan of Treatment: Future Appointments (+ 6 [...] from all [facility]. Appointment Date/Time Appointment Type Appointme nt Facility Name Jul 28, 2022 10:45 AM [facility] Aug 13, 2022 06:13 PM AMBULATORY - MEDICINE [facility] Aug 23, 2022 09:30 AM AMBULATORY - SURGERY [facility] Aug 23, 2022 09:45 AM [facility] Aug 23, 2022 10:30 AM AMBULATORY - MEDICINE [facility] Aug 23, 2022 10:31 AM AMBULATORY - MEDICINE [facility] Sep 06, 2022 10:15 AM AMBULATORY - SURGERY [facility] Oct 25, 2022 07:00 AM [facility] Oct 25, 2022 07:30 AM AMBULATORY - SURGERY [facility] Oct 25, 2022 09:00 AM AMBULATORY - SURGERY [facility] Active, Pending, and Scheduled [...] from all [facility]. Test Date/Time Test Type Test Details Facility Name Jun 12, 2022 12:00 AM Laboratory - Chemistry Order CBC & DIFF BLOOD ONCO SP ONCE [facility] Jun 12, 2022 12:00 AM Laboratory - Chemistry Order COMPREHENSIVE METABOLIC PANEL+MG PLASMA ONCO SP [facility] Jun 12, 2022 12:00 AM Laboratory - Chemistry Order TSH W/REFLEX TO FREE T4 PLASMA ONCO SP ONCE [facility] July 14, 2022 12:00 AM Laboratory - Blood Bank Order ABO/RH - LAB BLOOD [facility] July 14, 2022 02:05 PM Laboratory - Blood Bank Order TYPE & SCREEN - LAB BLOOD [facility] Aug 07, 2022 11:23 AM Laboratory - Chemistry Order DRUG SCREEN PANEL,URINE URINE [facility] Aug 23, 2022 10:47 AM Laboratory - Chemistry Order URINALYSIS URINE ER STAT [facility] Lab Results: +/- 30 days of the encounter This section includes the Chemistry and Hematology Lab Results on record with [place] for the patient. Radiology Reports and Pathology Reports are provided separately, in subsequent sections. Lab Results This section contains the Chemistry/Hematology Results that were resulted 30 days before or 30 daysafter the date of the Encounter. Date/Time Source Result Type Result - Unit Interpretation Reference Range Comment July 19, 2022 04:40 PM [facility] FINGERSTICK GLUCOSE Specimen Type: BLOOD Comment: Save Result Nurse Notified Ordering Provider: MACKENZIE COTTER Report Released Date/Time: July 19, 2022 05:00 PM Reporting Lab: [facility] [phone] Performing Lab: [facility] [address] FINGERSTICK GLUCOSE 132 70-100 July 19, 2022 07:13 AM [facility] COMPREHENSIVE METABOLIC PANEL+MG Specimen Type: PLASMA No comment entered. Ordering Provider: MACKENZIE COTTER Report Released Date/Time: July 18, 2022 05:40 PM Reporting Lab: [facility] [address] Performing Lab: [facility] [address] CREATININE 0.9 0.7-1.2 UREA NITROGEN 24 8-26 [...] See_Commen t July 19, 2022 07:13 AM [facility] IRON GROUP Specimen Type: SERUM No comment entered. Ordering Provider: MACKENZIE COTTER Report Released Date/Time: July 18, 2022 05:40 PM Reporting Lab: [facility] [address] Performing Lab: [facility] [address] IRON 28 L 65-175 TIBC,CALCULATE D 223 L 250-425 FERRITIN 73.7 21.8-274.7 IRON SATURATION 13 L 20-50 TRANSFERRIN 178 163-382 July 19, 2022 07:13 AM [facility] CBC Specimen Type: BLOOD No comment entered. Ordering Provider: MACKENZIE COTTER Report Released Date/Time: July 18, 2022 05:40 PM Reporting Lab: [facility] [address] Performing Lab: [facility] [address] WBC 7.73 4.0-11.0 RBC 2.42 L 4.6-6.2 HGB 8.2 L 13.5-17.9 HCT 23.8 L 41-54 MCV 98.3 80-100 MCH 33.9 H 27-33 MCHC 34.5 32.0-37.5 PLT 155 150-400 MPV 9.6 7.4-10.4 RDW 13.5 11.5-14.5 July 19, 2022 05:44 AM [facility] FINGERSTICK GLUCOSE Specimen Type: BLOOD Comment: Save Result Nurse Notified Ordering Provider: MACKENZIE COTTER Report Released Date/Time: July 19, 2022 11:54 AM Reporting Lab: [facility] [address] Performing Lab: [facility] [address] FINGERSTICK GLUCOSE 137 70-100 July 18, 2022 10:51 PM [facility] FINGERSTICK GLUCOSE Specimen Type: BLOOD Comment: Save Result Nurse Notified Ordering Provider: MACKENZIE COTTER Report Released Date/Time: July 18, 2022 11:06 PM Reporting Lab: [facility] [address] Performing Lab: [facility] [address] FINGERSTICK GLUCOSE 163 70-100 July 17, 2022 06:51 AM [facility] BASIC METABOLIC PANEL+MG Specimen Type: PLASMA No comment entered. Ordering Provider: DANG VALLE Report Released Date/Time: July 16, 2022 09:37 AM Reporting Lab: [facility] [address] Performing Lab: [facility] [address] CREATININE 0.8 0.7-1.2 UREA NITROGEN 23 8-26 GLUCOSE 107 H 70-100 SODIUM 139 136-145 POTASSIUM 3.9 3.5-5.1 CHLORIDE 106 98-107 CO2 28 22-29 CALCIUM 9.1 8.4-10.2 MAGNESIUM 1.9 1.6-2.6 ANION GAP 5 5-15 .CREAT EGFR(CKD-EPI) >90 See_Commen t July 17, 2022 06:51 AM [facility] PROTHROMBIN TIME/INR Specimen Type: PLASMA No comment entered. Ordering Provider: DANG VALLE R Report Released Date/Time: July 16, 2022 09:37 AM Reporting Lab: [facility] [address] Performing Lab: [facility] [address] .INR 1.0 0.8-1.1 .PT 11.5 9.4-12.5 July 17, 2022 06:51 AM [facility] CBC Specimen Type: BLOOD No comment entered. Ordering Provider: DANG VALLE R Report Released Date/Time: July 16, 2022 09:37 AM Reporting Lab: [facility] [address] Performing Lab: [facility] [address] WBC 6.05 4.0-11.0 RBC 3.77 L 4.6-6.2 HGB 12.7 L 13.5-17.9 HCT 36.0 L 41-54 MCV 95.5 80-100 MCH 33.7 H 27-33 MCHC 35.3 32.0-37.5 PLT 179 150-400 MPV 9.4 7.4-10.4 RDW 13.2 11.5-14.5 July 13, 2022 11:22 AM [facility] COVID-19 AND FLU/RSV DIAG PANEL(CEPHEID) Specimen Typ e: NASOPHARYNGEAL Comment: Cepheid GeneXpert (618) Ordering Provider: WHITNEY ANDERSON Report Released Date/Time: July 13, 2022 11:04 AM Reporting Lab: [facility] [address] Performing Lab: [facility] [address] COVID-19 (CEPHEID) Not Detected Not Detected INFLUENZA A (PCR) Not Detected Not Detected INFLUENZA B (PCR) Not Detected Not Detected RSV (PCR) Not Detected Not Detected July 13, 2022 11:00 AM [facility] PROTHROMBIN TIME/INR Specimen Type: PLASMA No comment entered. Ordering Provider: WHITNEY ANDERSON Report Released Date/Time: July 13, 2022 11:04 AM Reporting Lab: [facility] [address] Performing Lab: [facility] [address] .INR 0.9 0.8-1.1 .PT 11.1 9.4-12.5 July 13, 2022 11:00 AM [facility] C-REACTIVE PROTEIN Specimen Type: SERUM Comment: Automated Differential Performed Ordering Provider: WHITNEY ANDERSON Report Released Date/Time: July 13, 2022 11:04 AM Reporting Lab: [facility] [address] Performing Lab: [facility] [address] C-REACTIVE PROTEIN 1.17 <5.00 July 13, 2022 11:00 AM [facility] SED RATE Specimen Type: BLOOD No comment entered. Ordering Provider: WHITNEY ANDERSON Report Released Date/Time: July 13, 2022 11:04 AM Reporting Lab: [facility] [address] Performing Lab: [facility] [address] SED RATE 10 5-15 July 13, 2022 11:00 AM [facility] CBC & DIFF Specimen Type: BLOOD Comment: Automated Differential Performed Ordering Provider: WHITNEY ANDERSON Report Released Date/Time: July 13, 2022 11:04 AM Reporting Lab: [facility] [address] Performing Lab: [facility] [address] WBC 8.82 4.0-11.0 RBC 3.89 L 4.6-6.2 [...] 0.03 0-0.1 July 13, 2022 11:00 AM [facility] COMPREHENSIVE METABOLIC PANEL+MG Specimen Type: PLASMA Comment: Automated Differential Performed Ordering Provider: WHITNEY ANDERSON Report Released Date/Time: July 13, 2022 11:04 AM Reporting Lab: [facility] [address] Performing Lab: [facility] [address] CREATININE 1.0 0.7-1.2 UREA NITROGEN 16 8-26 [...] Height Weight Body Mass Index Source July 19, 2022 11:39 PM 98.2 F 70 /min 137/75 mm[Hg] 18 /min 91 % 0 [facility] July 19, 2022 10:50 PM 7 [facility] July 19, 2022 09:57 PM 8 [facility] July 19, 2022 08:30 PM 7 [facility] July 19, 2022 08:29 PM 7 [facility] Social History: Smoking Status (Most current) and Tobacco Use (All prior to encounter date) This section includes the most current, and the historical, smoking and tobacco- related health factors from the [place] facility where the Encounter took place. Current Smoking Status This section includes the most current smoking, or tobacco-related health factor, from the [place] facility where the Encounter took place. Date/Time Current Smoking Status Comment Facil ity May 10, 2022 09:15 AM VA-TOBACCO FORMER USER [facility] Tobacco Use History This section includes a history of the smoking, or tobacco-related health factors, that were collected on or before the date of the Encounter. The data comes from the [place] facility where the Encounter took place. Date/Time [...] ALL of a patient's completed or amended [place] Advance and Rescinded Directives. The entries below [...] the Encounter. The data comes from all [place] treatment facilities. Date/Time Radiology Report Provider Source July 20, 2022 07:50 AM CHEST 1 VIEW: MARYJO WAGNER [id number] -1950 M Exm Date: JULY 20, 2022@07:50 Req Phys: MACKENZIE COTTER [place] Pat Loc: 07-20-2022@08:26 Img Loc: MAIN X-RAY Service: PRIMARY CARE - MED OFFICE (Case [id number] COMPLETE) CHEST 1 VIEW (RAD Detailed) CPT:91737 Proc Modifiers : PORTABLE EXAM Reason for Study: see below. thanks. Clinical History: IS NOT under investigation for COVID-19 or is COVID-19 negative Please further evaluate for acute airspace disease given o2 requirement. Thanks. Responsible provider name and phone number to notify for critical findings if other than user placing the order and pager listed below: User placing orders pager: [phone] same LAST CREATININE 0.9 (07/19/22) Report Status: Verified Date Reported: JULY 20, 2022 Date Verified: JULY 20, 2022 Development Executive E-Sig:/ES/JAMIE MIGUEL MD Report: EXAM: CHEST [...] pager listed below: User placing orders pager: [phone] same LAST CREATININE 0. COMPARISON: Chest CT [...] Primary Interpreting Staff: JAMIE MIGUEL MD, RADIOLOGIST (Development Executive) /JAMIE FRANCES [facility] July 18, 2022 12:59 PM ELBOW LEFT 2 VIEWS: MARYJO WAGNER [id number] -1950 M Exm Date: JULY 18, 2022@12:59 Req Phys: LEIF BALBUENA Pat Loc: OR-PACU/07-18-2022@13:59 Img Loc: MAIN X-RAY Service: ZZSURGICAL SERVICE (Case [id number] COMPLETE) ELBOW LEFT 2 VIEWS (RAD Detailed) CPT:76668 Proc Modifiers : PORTABLE EXAM, OPERATING ROOM EXAM Reason for Study: post-op Clinical History: post-op Report Status: Verified Date Reported: JULY 18, 2022 Date Verified: JULY 18, 2022 Development Executive E-Sig:/ES/JAKUB LEE MD Report: EXAM: ELBOW [...] Primary Interpreting Staff: JAKUB LEE MD, RADIOLOGIST (Development Executive) /[facility] AJKUB LEE [facility] July 18, 2022 07:30 AM FLUORO UP TO 1 HR PHYSICIAN TIME: MARYJO WAGNER [id number] -1950 M Exm Date: JULY 18, 2022@07:30 Req Phys: LEIF BALBUENA Loc: OR-PACU/07-18-2022@13:14 Img Loc: MAIN X-RAY Service: PRIMARY CARE - MED OFFICE (Case [id number] COMPLETE) FLUORO UP TO 1 HR PHYSICIAN TIME (RAD Detailed) CPT:67069 Proc Modifiers : PORTABLE EXAM, OPERATING ROOM EXAM, LEFT Reason for Study: Left distal humerous ORIF Clinical History: OR 7 Pathologic distal humeral shaft fracture Responsible provider name and phone number to notify for critical findings if other than user placing the order and pager listed below: User placing orders pager: Henry BALBUENA [phone] LAST CREATININE 0.8 (07/17/22) Report Status: Electronically [...] Imaging Department. VERIFIED BY: / *ELECTRONICALLY FILED* [facility] July 17, 2022 03:28 PM ABDOMINAL AORTOGRAM (P): BERNARDMARYJO DIRK [id number] -1950 M Exm Date: JULY 17, 2022@15:28 Req Phys: MALCOM LANGLEY Loc: 07-17-2022@15:54 Img Loc: INTERVENTIONAL RADIOLOGY Service: PRIMARY CARE - MED OFFICE (Case 527 COMPLETE) ANGIOGRAPHY EXTREMITY UNILAT S&I (ANI Detailed) CPT:46185 Reason for Study: codes (Case 528 COMPLETE) IR AORTOGRAPHY ABDOMINAL W/O RUNO(ANI Detailed) CPT:77772 (Case 529 COMPLETE) IR FOREIGN BODY REMOVAL INTRAVASC(ANI Detailed) CPT:55186 (Case 532 COMPLETE) IR NEEDLE/INTRACATH PLACEMENT EXT(ANI Detailed) CPT:60625 (Case 533 COMPLETE) IR PLACEMENT OCCLUSIVE DEVICE SAM(ANI Detailed) CPT:G0269 Clinical History: codes Report Status: Verified Date Reported: JULY 17, 2022 Date Verified: JULY 17, 2022 Development Executive E-Sig:/ES/MALCOM LANGLEY MD Report: RADIOLOGIST: Malcom [...] angiogram and runoff. 12. Closure of right ROAD FREIGHT FIRER with Angio-Seal device. HISTORY: Metastatic renal cell [...] Sheath removed over guidewire and a 5 portuguese vascular sheath advanced over guidewire into the artery. An H1 catheter was advanced along with the guidewire into the thoracic arch and the left subclavian artery was selected. Catheter and the guidewire were advanced into the left brachial artery. The 5 [place] sheath was exchanged for a 6 [place] sheath that was advanced into the left [...] arteries. Sheath and catheters were removed and ROAD FREIGHT FIRER arteriotomy was closed using Angioseal. There is patent hemostasis. No bleeding or hematoma noted. Sterile dressing applied. 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 Primary Interpreting Staff: MALCOM LANGLEY MD, INTERVENTIONAL RADIOLOGIST (Development Executive) /MALCOM HE [facility] July 17, 2022 07:30 AM RENAL ARTERY EMBOLIZATION (P): MARYJO WAGNER [id number] -1950 M Exm Date: JULY 17, 2022@07:30 Req Phys: WESTON VASQUEZ Pat Loc: 07-17-2022@15:46 Img Loc: INTERVENTIONAL RADIOLOGY Service: PRIMARY CARE - MED OFFICE (Case 130 COMPLETE) IR TRANSCATH EMBOLIZATION W/ANGIO(ANI Detailed) CPT:43530 Reason for Study: embolization of RCC mets to left humerus (Case 131 COMPLETE) IR ARTERIAL EMBOLIZATION OTHER TH(ANI Detailed) CPT:44066 (Case 132 COMPLETE) IR US GUIDANCE VASCULAR ACCESS (ANI Detailed) CPT:64663 Clinical History: Beyer IS NOT under investigation for COVID-19 or [...] pager listed below: User placing orders pager: [phone] LAST CREATININE 1.0 (07/13/22) Report Status: Verified Date Reported: JULY 17, 2022 Date Verified: JULY 17, 2022 Development Executive E-Sig:/ES/MALCOM LANGLEY MD Report: RADIOLOGIST: Malcom [...] angiogram and runoff. 12. Closure of right ROAD FREIGHT FIRER with Angio-Seal device. HISTORY: Metastatic renal cell [...] Sheath removed over guidewire and a 5 portuguese vascular sheath advanced over guidewire into the artery. An H1 catheter was advanced along with the guidewire into the thoracic arch and the left subclavian artery was selected. Catheter and the guidewire were advanced into the left brachial artery. The 5 [place] sheath was exchanged for a 6 [place] sheath that was advanced into the left [...] arteries. Sheath and catheters were removed and ROAD FREIGHT FIRER arteriotomy was closed using Angioseal. There is patent hemostasis. No bleeding or hematoma noted. Sterile dressing applied. 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 Primary Interpreting Staff: MALCOM LANGLEY MD, INTERVENTIONAL RADIOLOGIST (Development Executive) /MALCOM HE [facility] July 14, 2022 06:44 AM HUMERUS LEFT MINIMUM 2 VIEWS: MARYJO WAGNER [id number] -1950 M Ex Date: JULY 14, 2022@06:44 Req Phys: PEDROHERBERTJAIRO [facility] Loc: 07-14-2022@07:13 Img Loc: MAIN X-RAY Service: PRIMARY CARE - MED OFFICE (Case [id number] COMPLETE) HUMERUS LEFT MINIMUM 2 VIEWS (RAD Detailed) CPT:91600 Reason for Study: post reduction Clinical History: Report Status: Verified Date Reported: JULY 14, 2022 Date Verified: JULY 14, 2022 Development Executive E-Sig: Report: HUMERUS LEFT MINIMUM 2 VIEWS HISTORY: post reduction COMPARISON: 07/13/2022 TECHNIQUE: 2 view(s) of the humerus, submitted to the [place] National Teleradiology Program (NTP) for interpretation. FINDINGS: [...] less likely. READING PHYSICIAN: Xavier Merrill MD -[phone] 07/14/2022 5:11 PDT [facility] National Teleradiology Program [phone] (For Medical Practitioner Use Only) Attention Patients / Veterans: If you have questions or concerns about these test results, please contact your ordering provider or primary care team. Primary Interpreting Staff: RADIOLOGY,OUTSIDE SERVICE, Staff Physician / RADIOLOGY,OUTSIDE SERVICE [facility] July 13, 2022 10:07 AM HUMERUS LEFT MINIMUM 2 VIEWS: MARYJO WAGNER [id number] -1950 M Ex Date: JULY 13, 2022@10:07 Req Phys: WHITNEY ANDERSON Pat Loc: [facility] EMERGENCY DEPT WALK-IN (Re Img Loc: MAIN X-RAY Service: Unknown (Case [id number] COMPLETE) HUMERUS LEFT MINIMUM 2 VIEWS (RAD Detailed) CPT:21813 Proc Modifiers : LEFT Reason for Study: L arm pain Clinical History: Beyer IS NOT under investigation for COVID-19 or is COVID-19 negative Atraumatic left upper extremity pain that is located midshaft humerus distally to the mid forearm. Clinical concern for dislocation versus fracture versus bone mets Responsible provider name and phone number to notify for critical findings if other than user placing the order and pager listed below: User placing orders pager: [phone] LAST CREATININE 0.8 (05/10/22) Report Status: Verified Date Reported: JULY 13, 2022 Date Verified: JULY 13, 2022 Development Executive E-Sig:/ES/ALBINA COWAN MD, FACR, CCD Report: [...] Staff: ALBINA COWAN MD, FACR, STAFF RADIOLOGIST (Development Executive) /[facility] ALBINA COWAN [facility] July 13, 2022 10:07 AM ELBOW LEFT 3 OR MORE VIEWS: MARYJO WAGNER [id number] -1950 M Exm Date: JULY 13, 2022@10:07 Req Phys: WHITNEY ANDERSON Pat Loc: [facility] EMERGENCY DEPT WALK-IN (Re Img Loc: MAIN X-RAY Service: Unknown (Case [id number] COMPLETE) ELBOW LEFT 3 OR MORE VIEWS (RAD Detailed) CPT:79203 Proc Modifiers : LEFT Reason for Study: L arm pain Clinical History: Beyer IS NOT under investigation for COVID-19 or is COVID-19 negative Atraumatic left upper extremity pain that is located midshaft humerus distally to the mid forearm. Clinical concern for dislocation versus fracture versus bone mets Responsible provider name and phone number to notify for critical findings if other than user placing the order and pager listed below: User placing orders pager: [phone] LAST CREATININE 0.8 (05/10/22) Report Status: Verified Date Reported: JULY 13, 2022 Date Verified: JULY 13, 2022 Development Executive E-Sig:/ES/ALBINA COWAN MD, FACR, CCD Report: [...] Staff: ALBINA COWAN MD, FACR, STAFF RADIOLOGIST (Development Executive) /ALBINA NATHAN [facility] July 13, 2022 10:07 AM FOREARM LEFT 2 VIEWS: MARYJO WAGNER [id number] -1950 M Exm Date: JULY 13, 2022@10:07 Req Phys: MONICAWHITNEY MARIN Pat Loc: [facility] EMERGENCY DEPT WALK-IN (Re Img Loc: MAIN X-RAY Service: Unknown (Case [id number] COMPLETE) FOREARM LEFT 2 VIEWS (RAD Detailed) CPT:91241 Proc Modifiers : LEFT Reason for Study: L arm pain Clinical History: Beyer IS NOT under investigation for COVID-19 or is COVID-19 negative Atraumatic left upper extremity pain that is located midshaft humerus distally to the mid forearm. Clinical concern for dislocation versus fracture versus bone mets Responsible provider name and phone number to notify for critical findings if other than user placing the order and pager listed below: User placing orders pager: [phone] LAST CREATININE 0.8 (05/10/22) Report Status: Verified Date Reported: JULY 13, 2022 Date Verified: JULY 13, 2022 Development Executive E-Sig:/ES/ALBINA COWAN MD, FACR, [facility] Report: EXAMINATION: FOREARM LEFT 2 VIEWS [...] Staff: ALBINA COWAN MD, FACR, STAFF RADIOLOGIST (Development Executive) /ALBINA NATHAN [facility] Pathology Reports: +/- 30 days of the [...] the Encounter. The data comes from all [place] treatment facilities. Date/Time Pathology Report Provider Source July 13, 2022 04:06 PM LR SURGICAL PATHOL OGY REPORT: LOCAL TITLE: LR SURGICAL PATHOLOGY REPORT STANDARD TITLE: PATHOLOGY REPORT DATE OF NOTE: JULY 21, 2022@14:37:27 ENTRY DATE: JULY 21, 2022@14:37:27 AUTHOR: JIAN SANDOVAL EXP COSIGNER: URGENCY: STATUS: COMPLETED $APHDR Reporting Lab: [facility] [CLIA# [id number]] [place] [address] - - - - - - - [...] is entirely submitted in A-D. CE. (D). [facility] FROZEN SECTION DIAGNOSES: SPEC. 1 - left [...] SANDOVAL STAFF PATHOLOGIST, PATHOLOGY & LABORATORY MED [facility] Signed July 21, 2022@14:37 Performing Laboratory: Surgical Pathology Report Performed By: [facility] [CLIA# [id number]] [place] [address] $FTR - - - - - - [...] - - MARYJO WAGNER STANDARD FORM 515 ID:[id number] SEX:M :1950 AGE: 72 LOC:[facility] PATHOLOGY PRO FEE ADM:June DX:PATHOLOGIC FX LF HUMERUS PCP: Leif Balbuena MD /sangita/ JIAN SANDOVAL STAFF PATHOLOGIST, PATHOLOGY & LABORATORY MED C Signed: 07/21/2022 14:37 JIAN SANDOVAL [facility]
--- OUTSIDE RECORDS SUMMARY | 2023-03-24 08:43 | XMS_ITS | Encounter Summary ---
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 Address [address] [place] [address] Support Name Relationship Address Phone DOREEN WAGNER Next of Kin [phone] [place] [phone] DOREEN Emergency Contact [address] [place] [phone] Insurance Providers: All historical and current [...] Name Patient's Relationship to Policy [place] [employer]NA [facility] (R) MEDICARE ADVANTAGE [facility] ([facility]) June 26, 2016 [id number] JOAN WAGNER KARSTEN PATIENT [employer]NA MCR (WNR) MEDICARE ADVANTAGE [facility] ([facility]) June 26, 2016 [id number] [phone] JOAN WAGNER PATIENT [employer] MCR (WNR) MEDICARE ADVANTAGE [facility] (R) June 26, 2016 [id number] [phone] JOAN WAGNER PATIENT Selected Encounter This section includes the information on [place] at [place] for the Encounter. 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 Date/Time Primary/Secondary Diagnosis Diagnosis Name Provider Source July 19, 2022 08:21 AM PRIMARY Pathological fracture in neoplastic disease, l humerus, init CLARICE PEÑA A [facility] July 19, 2022 08:21 AM SECONDARY Malignant neoplasm of unsp kidney, except renal pelvis CLARICE PEÑA [facility] July 19, 2022 08:21 AM SECONDARY Neoplasm of unsp behavior of bone, soft tissue, and skin CLARICE PEÑA [facility] Plan of Treatment: Future Appointments (+ 6 months) and Future Tests (+/- 45 days) The Plan of Treatment section includes future care activities for the patient from all [place] [facility] This section includes future appointments and future orders which are active, pending or scheduled. Future Appointments This section includes appointments that were scheduled to occur 6 months from the date of the Encounter, up to a maximum of 20 appointments. The data comes from all [facility]. Appointment Date/Time Appointment Type Appointme nt Facility Name Jul 28, 2022 10:45 AM AMBULATORY - MEDICINE [facility] Aug 13, 2022 06:13 PM AMBULATORY - MEDICINE [facility] Aug 23, 2022 09:30 AM AMBULATORY - SURGERY [facility] Aug 23, 2022 09:45 AM AMBULATORY - NONE [facility] Aug 23, 2022 10:30 AM AMBULATORY - MEDICINE [facility] Aug 23, 2022 10:31 AM AMBULATORY - MEDICINE [facility] Sep 06, 2022 10:15 AM AMBULATORY - SURGERY [facility] Oct 25, 2022 07:00 AM AMBULATORY - NONE [facility] Oct 25, 2022 07:30 AM AMBULATORY - SURGERY [facility] Oct 25, 2022 09:00 AM AMBULATORY - SURGERY [facility] Active, Pending, and Scheduled Orders This section includes a listing of several types of active, pending, and scheduled orders, including clinic medications orders, diagnostic test orders, procedure orders and consult orders; where the start date of the order is 45 days before the date of the Encounter or 45 days after the date of theEncounter. The data comes from all [facility]. Test Date/Time Test Type Test Details [...] Blood Bank Order ABO/RH - LAB BLOOD [facility] July 14, 2022 02:05 PM Laboratory - Blood Bank Order TYPE & SCREEN - LAB BLOOD [facility] Aug 07, 2022 11:23 AM Laboratory - Chemistry Order DRUG SCREEN PANEL,URINE URINE [facility] Aug 23, 2022 10:47 AM Laboratory - Chemistry Order URINALYSIS URINE ER STAT [facility] Lab Results: +/- 30 days [...] July 19, 2022 05:00 PM Reporting Lab: [facility] [address] Performing Lab: [facility] [address] FINGERSTICK GLUCOSE 132 70-100 July 19, 2022 07:13 AM [facility] COMPREHENSIVE METABOLIC PANEL+MG Specimen Type: PLASMA No comment entered. Ordering Provider: MACKENZIE COTTER Report Released Date/Time: July 18, 2022 05:40 PM Reporting Lab: [facility] [address] Performing Lab: [facility] [address] CREATININE 0.9 0.7-1.2 UREA NITROGEN 24 8-26 [...] July 18, 2022 05:40 PM Reporting Lab: [facility] [address] Performing Lab: [facility] [address] IRON 28 L 65-175 TIBC,CALCULATE D 223 L 250-425 FERRITIN 73.7 21.8-274.7 IRON SATURATION 13 L 20-50 TRANSFERRIN 178 163-382 July 19, 2022 07:13 AM [facility] CBC Specimen Type: BLOOD No comment entered. Ordering Provider: MACKENZIE COTTER Report Released Date/Time: July 18, 2022 05:40 PM Reporting Lab: [facility] [address] Performing Lab: [facility] [address] WBC 7.73 4.0-11.0 RBC 2.42 L 4.6-6.2 [...] July 19, 2022 11:54 AM Reporting Lab: [facility] [address] Performing Lab: [facility] [address] FINGERSTICK GLUCOSE 137 70-100 July 18, 2022 10:51 PM [facility] FINGERSTICK GLUCOSE Specimen Type: BLOOD Comment: Save Result Nurse Notified Ordering Provider: MACKENZIE COTTER Report Released Date/Time: July 18, 2022 11:06 PM Reporting Lab: [facility] [address] Performing Lab: [facility] [address] FINGERSTICK GLUCOSE 163 70-100 July 17, 2022 06:51 AM [facility] BASIC METABOLIC PANEL+MG Specimen Type: PLASMA No comment entered. Ordering Provider: DANG VALLE R Report Released Date/Time: July 16, 2022 09:37 AM Reporting Lab: [facility] [address] Performing Lab: [facility] [address] CREATININE 0.8 0.7-1.2 UREA NITROGEN 23 8-26 [...] July 16, 2022 09:37 AM Reporting Lab: [facility] [address] Performing Lab: [facility] [address] .INR 1.0 0.8-1.1 .PT 11.5 9.4-12.5 July 17, 2022 06:51 AM [facility] CBC Specimen Type: BLOOD No comment entered. Ordering Provider: DANG VALLE R Report Released Date/Time: July 16, 2022 09:37 AM Reporting Lab: [facility] [address] Performing Lab: [facility] [address] WBC 6.05 4.0-11.0 RBC 3.77 L 4.6-6.2 HGB 12.7 L 13.5-17.9 HCT 36.0 L 41-54 MCV 95.5 80-100 MCH 33.7 H 27-33 MCHC 35.3 32.0-37.5 PLT 179 150-400 MPV 9.4 7.4-10.4 RDW 13.2 11.5-14.5 July 13, 2022 11:22 AM [facility] COVID-19 AND FLU/RSV DIAG PANEL(CEPHEID) Specimen Typ e: NASOPHARYNGEAL Comment: CepCocodrilo Dogid GeneXpert (618) Ordering Provider: WHITNEY ANDERSON Report Released Date/Time: July 13, 2022 11:04 AM Reporting Lab: [facility] [address] Performing Lab: [facility] [address] COVID-19 (CEPHEID) Not Detected Not Detected INFLUENZA A (PCR) Not Detected Not Detected INFLUENZA B (PCR) Not Detected Not Detected RSV (PCR) Not Detected Not Detected July 13, 2022 11:00 AM [facility] C-REACTIVE PROTEIN Specimen Type: SERUM Comment: Automated Differential Performed Ordering Provider: WHITNEY ANDERSON Report Released Date/Time: July 13, 2022 11:04 AM Reporting Lab: [facility] [address] Performing Lab: [facility] [address] C-REACTIVE PROTEIN 1.17 <5.00 July 13, 2022 11:00 AM [facility] SED RATE Specimen Type: BLOOD No comment entered. Ordering Provider: WHITNEY ANDERSON Report Released Date/Time: July 13, 2022 11:04 AM Reporting Lab: [facility] [address] Performing Lab: [facility] [address] SED RATE 10 5-15 July 13, 2022 11:00 AM [facility] PROTHROMBIN TIME/INR Specimen Type: PLASMA No comment entered. Ordering Provider: WHITNEY ANDERSON Report Released Date/Time: July 13, 2022 11:04 AM Reporting Lab: [facility] [address] Performing Lab: [facility] [address] .INR 0.9 0.8-1.1 .PT 11.1 9.4-12.5 July 13, 2022 11:00 AM [facility] CBC & DIFF Specimen Type: BLOOD Comment: Automated Differential Performed Ordering Provider: WHITNEY ANDERSON Report Released Date/Time: July 13, 2022 11:04 AM Reporting Lab: [facility] [address] Performing Lab: [facility] [address] WBC 8.82 4.0-11.0 RBC 3.89 L 4.6-6.2 [...] July 13, 2022 11:04 AM Reporting Lab: [facility] [address] Performing Lab: [facility] [address] CREATININE 1.0 0.7-1.2 UREA NITROGEN 16 8-26 [...] Source July 18, 2022 11:14 PM 9 [place] July 18, 2022 11:14 PM [facility] July 18, 2022 10:53 PM 98.6 F 68 /min 114/73 mm[Hg] 18 /min 95 % 8 [facility] July 18, 2022 09:30 PM [facility] July 18, 2022 08:59 PM 9 [facility] Social History: Smoking Status (Most [...] from all [facility]. Date Advance Directives Provider Source Mar 18, 2003 ADVANCE DIRECTIVE FARHAT MELGARVERITO [facility] Radiology Reports: +/- 30 days [...] 07:50 AM CHEST 1 VIEW: MARYJO WAGNER [id number] -1950 M Exm Date: JULY 20, 2022@07:50 Req Phys: MACKENZIE COTTER Pat Loc: 07-20-2022@08:26 Img Loc: MAIN X-RAY Service: PRIMARY CARE - MED OFFICE (Case [id number] COMPLETE) CHEST 1 VIEW (RAD Detailed) CPT:64594 Proc Modifiers : PORTABLE EXAM Reason for Study: see below. thanks. Clinical History: IS NOT under investigation for COVID-19 or is COVID-19 negative Please further evaluate for acute airspace disease given o2 requirement. Thanks. Responsible provider name and phone number to notify for critical findings if other than user placing the order and pager listed below: User placing orders pager: [phone] same LAST CREATININE 0.9 (07/19/22) Report Status: Verified Date Reported: JULY 20, 2022 Date Verified: JULY 20, 2022 Healthcare Architect E-Sig:/ES/JAMIE MIGUEL MD Report: EXAM: CHEST 1 [...] pager listed below: User placing orders pager: [phone] same LAST CREATININE 0. COMPARISON: Chest CT [...] Primary Interpreting Staff: JAMIE MIGUEL MD, RADIOLOGIST (Healthcare Architect) /JAMIE FRANCES [facility] July 18, 2022 12:59 PM ELBOW LEFT 2 VIEWS: MARYJO WAGNER [id number] -1950 M Exm Date: JULY 18, 2022@12:59 Req Phys: LEIF BALBUENA Loc: OR-PACU/07-18-2022@13:59 Img Loc: MAIN X-RAY Service: ZZSURGICAL SERVICE (Case [id number] COMPLETE) ELBOW LEFT 2 VIEWS (RAD Detailed) CPT:65605 Proc Modifiers : PORTABLE EXAM, OPERATING ROOM EXAM Reason for Study: post-op Clinical History: post-op Report Status: Verified Date Reported: JULY 18, 2022 Date Verified: JULY 18, 2022 Healthcare Architect E-Sig:/ES/JAKUB LEE MD Report: EXAM: ELBOW LEFT [...] Primary Interpreting Staff: JAKUB LEE MD, RADIOLOGIST (Healthcare Architect) /JAKUB LUCERO [facility] July 18, 2022 07:30 AM FLUORO UP TO 1 HR PHYSICIAN TIME: MARYJO WAGNER [id number] -1950 M Exm Date: JULY 18, 2022@07:30 Req Phys: LEIF BALBUENA Loc: OR-PACU/07-18-2022@13:14 Img Loc: MAIN X-RAY Service: PRIMARY CARE - MED OFFICE (Case [id number] COMPLETE) FLUORO UP TO 1 HR PHYSICIAN TIME (RAD Detailed) CPT:46402 Proc Modifiers : PORTABLE EXAM, OPERATING ROOM EXAM, LEFT Reason for Study: Left distal humerous ORIF Clinical History: OR 7 Pathologic distal humeral shaft fracture Responsible provider name and phone number to notify for critical findings if other than user placing the order and pager listed below: User placing orders pager: Henry BALBUENA [phone] LAST CREATININE 0.8 (07/17/22) Report Status: Electronically Filed Date Reported: JULY 18, 2022 Report: Impression: Please see the full report for this procedure in [facility] patient progress notes. Fluoro guidance was provided during this procedure, but the study was not reviewed or verified by a [facility] radiologist. The radiation exposure dose has been recorded in the patient's chart. If you are unable to view this data, please contact the Imaging Department. VERIFIED BY: / *ELECTRONICALLY FILED* [facility] July 17, 2022 03:28 PM ABDOMINAL AORTOGRAM (P): MARYJO WAGNER [id number] -1950 M Exm Date: JULY 17, 2022@15:28 Req Phys: MALCOM LANGLEY Loc: 07-17-2022@15:54 Img Loc: INTERVENTIONAL RADIOLOGY Service: PRIMARY CARE - MED OFFICE (Case [id number] COMPLETE) ANGIOGRAPHY EXTREMITY UNILAT S&I (ANI Detailed) CPT:83359 Reason for Study: codes (Case 528 COMPLETE) IR AORTOGRAPHY ABDOMINAL W/O RUNO(ANI Detailed) CPT:68766 (Case 529 COMPLETE) IR FOREIGN BODY REMOVAL INTRAVASC(ANI Detailed) CPT:46025 (Case 532 COMPLETE) IR NEEDLE/INTRACATH PLACEMENT EXT(ANI Detailed) CPT:31332 (Case 533 COMPLETE) IR PLACEMENT OCCLUSIVE DEVICE SAM(ANI Detailed) CPT:G0269 Clinical History: codes Report Status: Verified Date Reported: JULY 17, 2022 Date Verified: JULY 17, 2022 Healthcare Architect E-Sig:/ES/MALCOM LANGLEY MD Report: RADIOLOGIST: Malcom Langley [...] angiogram and runoff. 12. Closure of right LAN ADMINISTRATOR with Angio-Seal device. HISTORY: Metastatic renal cell [...] into the left brachial artery. The 5 Syrian sheath was exchanged for a 6 Syrian sheath that was advanced into the left [...] arteries. Sheath and catheters were removed and LAN ADMINISTRATOR arteriotomy was closed using Angioseal. There is patent hemostasis. No bleeding or hematoma noted. Sterile dressing applied. 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 Primary Interpreting Staff: MALCOM LANGLEY MD, INTERVENTIONAL RADIOLOGIST (Healthcare Architect) /MALCOM HE [facility] July 17, 2022 07:30 AM RENAL ARTERY EMBOLIZATION (P): MARYJO WAGNER [id number] -1950 M Exm Date: JULY 17, 2022@07:30 Req Phys: WESTON VASQUEZ [facility] Loc: 07-17-2022@15:46 Img Loc: INTERVENTIONAL RADIOLOGY Service: PRIMARY CARE - MED OFFICE (Case 130 COMPLETE) IR TRANSCATH EMBOLIZATION W/ANGIO(ANI Detailed) CPT:50332 Reason for Study: embolization of RCC mets to left humerus (Case 131 COMPLETE) IR ARTERIAL EMBOLIZATION OTHER TH(ANI Detailed) CPT:29642 (Case 132 COMPLETE) IR US GUIDANCE VASCULAR ACCESS (ANI Detailed) CPT:70977 Clinical History: IS NOT under investigation for [...] pager listed below: User placing orders pager: [phone] LAST CREATININE 1.0 (07/13/22) Report Status: Verified Date Reported: JULY 17, 2022 Date Verified: JULY 17, 2022 Healthcare Architect E-Sig:/ES/MALCOM LANGLEY MD Report: RADIOLOGIST: Malcom Langley [...] angiogram and runoff. 12. Closure of right LAN ADMINISTRATOR with Angio-Seal device. HISTORY: Metastatic renal cell [...] into the left brachial artery. The 5 Syrian sheath was exchanged for a 6 Syrian sheath that was advanced into the left [...] arteries. Sheath and catheters were removed and LAN ADMINISTRATOR arteriotomy was closed using Angioseal. There is patent hemostasis. No bleeding or hematoma noted. Sterile dressing applied. 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 Primary Interpreting Staff: MALCOM LANGLEY MD, INTERVENTIONAL RADIOLOGIST (Healthcare Architect) /MALCOM HE [facility] July 14, 2022 06:44 AM HUMERUS LEFT MINIMUM 2 VIEWS: MARYJO WAGNER [id number] -1950 M Exm Date: JULY 14, 2022@06:44 Req Phys: WESTON VASQUEZ Loc: 07-14-2022@07:13 Img Loc: MAIN X-RAY Service: PRIMARY CARE - MED OFFICE (Case [id number] COMPLETE) HUMERUS LEFT MINIMUM 2 VIEWS (RAD Detailed) CPT:12910 Reason for Study: post reduction Clinical History: Report Status: Verified Date Reported: JULY 14, 2022 Date Verified: JULY 14, 2022 Healthcare Architect E-Sig: Report: HUMERUS LEFT MINIMUM 2 VIEWS HISTORY: post reduction COMPARISON: 07/13/2022 TECHNIQUE: 2 view(s) of the humerus, submitted to the [place] National Teleradiology Program (NTP) for interpretation. FINDINGS: [...] less likely. READING PHYSICIAN: Xavier Merrill MD -[phone] 07/14/2022 5:11 PDT [facility] National Teleradiology Program [phone] (For Medical Practitioner Use Only) Attention Patients / Veterans: If you have questions or concerns about these test results, please contact your ordering provider or primary care team. Primary Interpreting Staff: RADIOLOGY,OUTSIDE SERVICE, Staff Physician / RADIOLOGY,OUTSIDE SERVICE [facility] July 13, 2022 10:07 AM HUMERUS LEFT MINIMUM 2 VIEWS: MARYJO WAGNER [id number] -1950 M Exm Date: JULY 13, 2022@10:07 Req Phys: WHITNEY ANDERSON Pat Loc: [facility] EMERGENCY DEPT WALK-IN (Re Img Loc: MAIN X-RAY Service: Unknown (Case [id number] COMPLETE) HUMERUS LEFT MINIMUM 2 VIEWS (RAD Detailed) CPT:83703 Proc Modifiers : LEFT Reason for Study: L arm pain Clinical History: [place] IS NOT under investigation for COVID-19 or is COVID-19 negative Atraumatic left upper extremity pain that is located midshaft humerus distally to the mid forearm. Clinical concern for dislocation versus fracture versus bone mets Responsible provider name and phone number to notify for critical findings if other than user placing the order and pager listed below: User placing orders pager: [phone] LAST CREATININE 0.8 (05/10/22) Report Status: Verified Date Reported: JULY 13, 2022 Date Verified: JULY 13, 2022 Healthcare Architect E-Sig:/ES/ALBINA COWAN MD, FACR, CCD Report: EXAMINATION: [...] Staff: ALBINA COWAN MD, FACR, STAFF RADIOLOGIST (Healthcare Architect) /BSF ALBINA COWAN [facility] July 13, 2022 10:07 AM ELBOW LEFT 3 OR MORE VIEWS: MARYJO WAGNER [id number] -1950 M Ex Date: JULY 13, 2022@10:07 Req Phys: WHITNEY ANDERSON Pat Loc: [facility] EMERGENCY DEPT WALK-IN (Re Img Loc: MAIN X-RAY Service: Unknown (Case [id number] COMPLETE) ELBOW LEFT 3 OR MORE VIEWS (RAD Detailed) CPT:67622 Proc Modifiers : LEFT Reason for Study: [...] pager listed below: User placing orders pager: [phone] LAST CREATININE 0.8 (05/10/22) Report Status: Verified Date Reported: JULY 13, 2022 Date Verified: JULY 13, 2022 Healthcare Architect E-Sig:/ES/ALBINA COWAN MD, FACR, CCD Report: EXAMINATION: [...] Staff: ALBINA COWAN MD, FACR, STAFF RADIOLOGIST (Healthcare Architect) /BSF ALBINA COWAN [facility] July 13, 2022 10:07 AM FOREARM LEFT 2 VIEWS: MARYJO WAGNER [id number] -1950 M Exm Date: JULY 13, 2022@10:07 Req Phys: WHITNEY ANDERSON Pat Loc: [facility] EMERGENCY DEPT WALK-IN ( Img Loc: MAIN X-RAY Service: Unknown (Case [id number] COMPLETE) FOREARM LEFT 2 VIEWS (RAD Detailed) CPT:83968 Proc Modifiers : LEFT Reason for Study: [...] pager listed below: User placing orders pager: [phone] LAST CREATININE 0.8 (05/10/22) Report Status: Verified Date Reported: JULY 13, 2022 Date Verified: JULY 13, 2022 Healthcare Architect E-Sig:/ES/ALBINA COWAN MD, FACR, CCD Report: EXAMINATION: [...] Staff: ALBINA COWAN MD, FACR, STAFF RADIOLOGIST (Healthcare Architect) /BSF ALBINA COWAN [facility] Pathology [...] comes from all [place] treatment facilities. Date/Time Pathology Report Provider Source July 13, 2022 04:06 PM LR SURGICAL PATHOL OGY REPORT: LOCAL TITLE: LR SURGICAL PATHOLOGY REPORT STANDARD TITLE: PATHOLOGY REPORT DATE OF NOTE: JULY 21, 2022@14:37:27 ENTRY DATE: JULY 21, 2022@14:37:27 AUTHOR: JIAN SANDOVAL EXP COSIGNER: URGENCY: STATUS: COMPLETED $APHDR Reporting Lab: [facility] [CLIA# [id number]] [place] [address] - - - - - - - [...] - - - PATHOLOGY REPORT Accession No. [id number] - - - - - [...] SANDOVAL STAFF PATHOLOGIST, PATHOLOGY & LABORATORY [facility] Signed July 21, 2022@14:37 Performing Laboratory: Surgical Pathology Report Performed By: [facility] [CLIA# [id number]] [place] [address] $FTR - - - - - - - - - - - - - - - - - - - - - - - - - - - - - - - - - - - - - - - - (End of report) JIAN SANDOVAL MD rk Date July 21, 2022 - - - - - - - - - - - - - - - - - - - - - - - - - - - - - - - - - - - - - - - - MARYJO WAGNER STANDARD FORM 515 ID:[id number] SEX:M :1950 AGE: 72 LOC:[facility] PATHOLOGY PRO FEE ADM:June DX:PATHOLOGIC FX LF HUMERUS PCP: Leif Balbuena MD /sangita/ JIAN SANDOVAL STAFF PATHOLOGIST, PATHOLOGY & LABORATORY [facility] Signed: 07/21/2022 14:37 JIAN SANDOVAL [facility]
--- OUTSIDE RECORDS SUMMARY | 2023-03-24 08:43 | XMS_ITS ---
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 of Vetera [facility] Address [address] [place] [address] Support Name Relationship Address Phone DOREEN WAGNER Next of Kin [phone] [place] [phone] DOREEN Emergency Contact [phone] [place] [phone] Insurance Providers: All historical and current [...] Name Patient's Relationship to Policy [place] [employer]NA [facility] (WNR) MEDICARE ADVANTAGE [facility] (R) June 26, 2016 [id number] JOAN WAGNER KARSTEN PATIENT [employer]MANA MCR (WNR) MEDICARE ADVANTAGE [facility] (WNR) June 26, 2016 [id number] JOAN WAGNER KARSTEN PATIENT [employer] MCR (WNR) MEDICARE ADVANTAGE [facility] (WNR) June 26, 2016 [id number] [phone] JOAN WAGNER PATIENT Selected Encounter This section includes the information on record at AL for the Encounter. Date/Time Encounter Type Encounter Description Reason Pro vider Source July 19, 2022 10:23 AM Inpatient Visit DAILY HOSPITALIZATION DATA [facility] Encounter Template Text not used by AL Plan of Treatment: Future Appointments (+ 6 [...] appointments. The data comes from all [facility]. Appointment Date/Time Appointment Type Appointme nt Facility Name Jul 28, 2022 10:45 AM [facility] Aug 13, 2022 06:13 PM AMBULATORY - MEDICINE [facility] Aug 23, 2022 09:30 AM AMBULATORY - SURGERY [facility] Aug 23, 2022 09:45 AM [facility] Aug 23, 2022 10:30 AM AMBULATORY - MEDICINE [facility] Aug 23, 2022 10:31 AM AMBULATORY - MEDICINE [facility] Sep 06, 2022 10:15 AM AMBULATORY - SURGERY [facility] Oct 25, 2022 07:00 AM [facility] Oct 25, 2022 07:30 AM AMBULATORY - SURGERY [facility] Oct 25, 2022 09:00 AM AMBULATORY - SURGERY [facility] Active, Pending, and Scheduled Orders This section includes a listing of several types of active, pending, and scheduled orders, including clinic medications orders, diagnostic test orders, procedure orders and consult orders; where the start date of the order is 45 days before the date of the Encounter or 45 days after the date of theEncounter. The data comes from all [facility]. Test Date/Time Test Type Test Details Facility Name Jun 12, 2022 12:00 AM Laboratory - Chemistry Order CBC & DIFF BLOOD ONCO SP ONCE [facility] Jun 12, 2022 12:00 AM Laboratory - Chemistry Order COMPREHENSIVE METABOLIC PANEL+MG PLASMA ONCO SP [facility] Jun 12, 2022 12:00 AM Laboratory - Chemistry Order TSH W/REFLEX TO FREE T4 PLASMA ONCO SP ONCE [facility] July 14, 2022 12:00 AM Laboratory - Blood Bank Order ABO/RH - LAB BLOOD [facility] July 14, 2022 02:05 PM Laboratory - Blood Bank Order TYPE & SCREEN - LAB BLOOD [facility] Aug 07, 2022 11:23 AM Laboratory - Chemistry Order DRUG SCREEN PANEL,URINE URINE [facility] Aug 23, 2022 10:47 AM Laboratory [...] Comment July 19, 2022 04:[address] [facility] FINGERSTICK GLUCOSE Specimen Type: BLOOD Comment: Save Result Nurse Notified Ordering Provider: MACKENZIE COTTER Report Released Date/Time: July 19, 2022 05:00 PM Reporting Lab: [facility] [address] Performing Lab: [facility] [address] FINGERSTICK GLUCOSE 132 70-100 July 19, 2022 07:[address] [facility] COMPREHENSIVE METABOLIC PANEL+MG Specimen Type: PLASMA No comment entered. Ordering Provider: MACKENZIE COTTER Report Released Date/Time: July 18, 2022 05:40 PM Reporting Lab: [facility] [address] Performing Lab: [facility] [address] CREATININE 0.9 0.7-1.2 UREA NITROGEN 24 8-26 [...] t July 19, 2022 07:[address] [facility] IRON GROUP Specimen Type: SERUM No comment entered. Ordering Provider: MACKENZIE COTTER Report Released Date/Time: July 18, 2022 05:40 PM Reporting Lab: [facility] [address] Performing Lab: [facility] [address] IRON 28 L 65-175 TIBC,CALCULATE D 223 L 250-425 FERRITIN 73.7 21.8-274.7 IRON SATURATION 13 L 20-50 TRANSFERRIN 178 163-382 July 19, 2022 07:[address] [facility] CBC Specimen Type: BLOOD No comment entered. Ordering Provider: MACKENZIE COTTER Report Released Date/Time: July 18, 2022 05:40 PM Reporting Lab: [facility] [address] Performing Lab: [facility] [address] WBC 7.73 4.0-11.0 RBC 2.42 L 4.6-6.2 HGB 8.2 L 13.5-17.9 HCT 23.8 L 41-54 MCV 98.3 80-100 MCH 33.9 H 27-33 MCHC 34.5 32.0-37.5 PLT 155 150-400 MPV 9.6 7.4-10.4 RDW 13.5 11.5-14.5 July 19, 2022 05:[address] [facility] FINGERSTICK GLUCOSE Specimen Type: BLOOD Comment: Save Result Nurse Notified Ordering Provider: MACKENZIE COTTER Report Released Date/Time: July 19, 2022 11:54 AM Reporting Lab: [facility] [address] Performing Lab: [facility] [address] FINGERSTICK GLUCOSE 137 70-100 July 18, 2022 10:[address] [facility] FINGERSTICK GLUCOSE Specimen Type: BLOOD Comment: Save Result Nurse Notified Ordering Provider: MACKENZIE COTTER Report Released Date/Time: July 18, 2022 11:06 PM Reporting Lab: [facility] [address] Performing Lab: [facility] [address] FINGERSTICK GLUCOSE 163 70-100 July 17, 2022 06:[address] [facility] BASIC METABOLIC PANEL+MG Specimen Type: PLASMA No comment entered. Ordering Provider: DANG VALLE Report Released Date/Time: July 16, 2022 09:37 AM Reporting Lab: [facility] [address] Performing Lab: [facility] [address] CREATININE 0.8 0.7-1.2 UREA NITROGEN 23 8-26 GLUCOSE 107 H 70-100 SODIUM 139 136-145 POTASSIUM 3.9 3.5-5.1 CHLORIDE 106 98-107 CO2 28 22-29 CALCIUM 9.1 8.4-10.2 MAGNESIUM 1.9 1.6-2.6 ANION GAP 5 5-15 .CREAT EGFR(CKD-EPI) >90 See_Commen t July 17, 2022 06:[address] [facility] PROTHROMBIN TIME/INR Specimen Type: PLASMA No comment entered. Ordering Provider: DANG VALLE R Report Released Date/Time: July 16, 2022 09:37 AM Reporting Lab: [facility] [address] Performing Lab: [facility] [address] .INR 1.0 0.8-1.1 .PT 11.5 9.4-12.5 July 17, 2022 06:[address] [facility] CBC Specimen Type: BLOOD No comment entered. Ordering Provider: DANG VALLE R Report Released Date/Time: July 16, 2022 09:37 AM Reporting Lab: [facility] [address] Performing Lab: [facility] [address] WBC 6.05 4.0-11.0 RBC 3.77 L 4.6-6.2 HGB 12.7 L 13.5-17.9 HCT 36.0 L 41-54 MCV 95.5 80-100 MCH 33.7 H 27-33 MCHC 35.3 32.0-37.5 PLT 179 150-400 MPV 9.4 7.4-10.4 RDW 13.2 11.5-14.5 July 13, 2022 11:[address] [facility] COVID-19 AND FLU/RSV DIAG PANEL(CEPHEID) Specimen Typ e: NASOPHARYNGEAL Comment: Cepheid GeneXpert (618) Ordering Provider: WHITNEY ANDERSON Report Released Date/Time: July 13, 2022 11:04 AM Reporting Lab: [facility] [address] Performing Lab: [facility] [address] COVID-19 (CEPHEID) Not Detected Not Detected INFLUENZA A (PCR) Not Detected Not Detected INFLUENZA B (PCR) Not Detected Not Detected RSV (PCR) Not Detected Not Detected July 13, 2022 11:[address] [facility] C-REACTIVE PROTEIN Specimen Type: SERUM Comment: Automated Differential Performed Ordering Provider: WHITNEY ANDERSON Report Released Date/Time: July 13, 2022 11:04 AM Reporting Lab: [facility] [address] Performing Lab: [facility] [address] C-REACTIVE PROTEIN 1.17 <5.00 July 13, 2022 11:[address] [facility] PROTHROMBIN TIME/INR Specimen Type: PLASMA No comment entered. Ordering Provider: WHITNEY ANDERSON Report Released Date/Time: July 13, 2022 11:04 AM Reporting Lab: [facility] [address] Performing Lab: [facility] [address] .INR 0.9 0.8-1.1 .PT 11.1 9.4-12.5 July 13, 2022 11:[address] [facility] SED RATE Specimen Type: BLOOD No comment entered. Ordering Provider: WHITNEY ANDERSON Report Released Date/Time: July 13, 2022 11:04 AM Reporting Lab: [facility] [address] Performing Lab: [facility] [address] SED RATE 10 5-15 July 13, 2022 11:[address] [facility] CBC & DIFF Specimen Type: BLOOD Comment: Automated Differential Performed Ordering Provider: WHITNEY ANDERSON Report Released Date/Time: July 13, 2022 11:04 AM Reporting Lab: [facility] [address] Performing Lab: [facility] [address] WBC 8.82 4.0-11.0 RBC 3.89 L 4.6-6.2 [...] 0-0.1 July 13, 2022 11:[address] [facility] COMPREHENSIVE METABOLIC PANEL+MG Specimen Type: PLASMA Comment: Automated Differential Performed Ordering Provider: WHITNEY ANDERSON Report Released Date/Time: July 13, 2022 11:04 AM Reporting Lab: [facility] [address] Performing Lab: [facility] [address] CREATININE 1.0 0.7-1.2 UREA NITROGEN 16 8-26 [...] 137/75 mm[Hg] 18 /min 91 % 0 [facility] July 19, 2022 10:50 PM 7 [facility] July 19, 2022 09:57 PM 8 [facility] July 19, 2022 08:30 PM 7 [facility] July 19, 2022 08:29 PM 7 [facility] Social History: Smoking Status [...] 2022 09:15 AM VA-TOBACCO FORMER USER [facility] Tobacco Use History This section includes a history of the smoking, or tobacco-related health factors, that were collected on or before the date of the Encounter. The data comes from the [place] facility where the Encounter took place. Date/Time Smoking Status/Tobacco Use Comment F acility May 10, 2022 09:15 AM VA-TOBACCO QUIT [address] [facility] May 11, 2021 09:15 AM VA-TOBACCO FORMER USER [facility] May 11, 2021 09:15 AM VA-TOBACCO QUIT [address] [facility] Nov 22, 2018 01:36 PM VA-TOBACCO NEVER USED [facility] Nov 12, 2017 07:35 AM FORMER TOBACCO USER 7Y OR GREATE R [facility] Nov 06, 2016 09:05 AM FORMER TOBACCO USER 7Y OR GREATE R [facility] Sep 27, 2015 09:42 AM FORMER TOBACCO USER 7Y OR GREATE R [facility] Sep 25, 2014 07:55 AM FORMER TOBACCO USER 7Y OR GREATE R [facility] Sep 08, 2013 07:48 AM FORMER TOBACCO USER 7Y OR GREATE R [facility] July 09, 2012 09:20 AM FORMER TOBACCO USE >1Y <7Y [facility] Jun 06, 2011 07:53 AM FORMER TOBACCO USE >1Y <7Y [facility] Sep 09, 2009 03:03 PM FORMER TOBACCO USE >1Y <7Y [facility] Aug 11, 2008 01:06 PM FORMER TOBACCO USE <1Y [facility] Sep 19, 2007 02:52 [address] TOBACCO USER [facility] Sep 03, 2006 03:32 PM CURRENT TOBACCO USER [facility] Advance Directives: All historical and [...] from all [facility]. Date Advance Directives Provider Source Mar 18, 2003 ADVANCE DIRECTIVE FARHAT MELGAR [facility] Radiology Reports: +/- 30 days of [...] 07:50 AM CHEST 1 VIEW: MARYJO WAGNER [id number] -1950 M Exm Date: JULY 20, 2022@07:50 Req Phys: MACKENZIE COTTER Darwin Pat Loc: 07-20-2022@08:26 Img Loc: MAIN X-RAY Service: PRIMARY CARE - MED OFFICE (Case [id number] COMPLETE) CHEST 1 VIEW (RAD Detailed) CPT:93159 Proc Modifiers : PORTABLE EXAM Reason for Study: see below. thanks. Clinical History: IS NOT under investigation for COVID-19 or is COVID-19 negative Please further evaluate for acute airspace disease given o2 requirement. Thanks. Responsible provider name and phone number to notify for critical findings if other than user placing the order and pager listed below: User placing orders pager: [phone] same LAST CREATININE 0.9 (07/19/22) Report Status: Verified Date Reported: JULY 20, 2022 Date Verified: JULY 20, 2022 [employer] E-Sig:/ES/JAMIE MIGUEL MD Report: EXAM: CHEST 1 [...] pager listed below: User placing orders pager: [phone] same LAST CREATININE 0. COMPARISON: Chest CT [...] Primary Interpreting Staff: JAMIE MIGUEL MD, RADIOLOGIST (Sports Broadcaster) /JAMIE [facility]ES [facility] July 18, 2022 12:59 PM ELBOW LEFT 2 VIEWS: MARYJO WAGNRE [id number] -1950 M Exm Date: JULY 18, 2022@12:59 Req Phys: LEIF BALBUENA Pat Loc: OR-PACU/07-18-2022@13:59 Img Loc: MAIN X-RAY Service: ZZSURGICAL SERVICE (Case [id number] COMPLETE) ELBOW LEFT 2 VIEWS (RAD Detailed) CPT:80851 Proc Modifiers : PORTABLE EXAM, OPERATING ROOM EXAM Reason for Study: post-op Clinical History: post-op Report Status: Verified Date Reported: JULY 18, 2022 Date Verified: JULY 18, 2022 Sports [employer] E-Sig:/ES/JAKUB LEE MD Report: EXAM: ELBOW LEFT [...] Primary Interpreting Staff: JAKUB LEE MD, RADIOLOGIST (Sports Broadcaster) /[facility] JAKUB LEE [facility] July 18, 2022 07:30 AM FLUORO UP TO 1 HR PHYSICIAN TIME: MARYJO WAGNER [id number] -1950 M Exm Date: JULY 18, 2022@07:30 Req Phys: LEIF BALBUENA Loc: OR-PACU/07-18-2022@13:14 Img Loc: MAIN X-RAY Service: PRIMARY CARE - MED OFFICE (Case [id number] COMPLETE) FLUORO UP TO 1 HR PHYSICIAN TIME (RAD Detailed) CPT:55323 Proc Modifiers : PORTABLE EXAM, OPERATING ROOM EXAM, LEFT Reason for Study: Left distal humerous ORIF Clinical History: OR 7 Pathologic distal humeral shaft fracture Responsible provider name and phone number to notify for critical findings if other than user placing the order and pager listed below: User placing orders pager: Henry BALBUENA [phone] LAST CREATININE 0.8 (07/17/22) Report Status: Electronically Filed Date Reported: JULY 18, 2022 Report: Impression: Please see the full report for this procedure in CPRS patient progress notes. Fluoro guidance was provided during this procedure, but the study was not reviewed or verified by a [facility] radiologist. The radiation exposure dose has been recorded in the patient's chart. If you are unable to view this data, please contact the Imaging Department. VERIFIED BY: / *ELECTRONICALLY FILED* [facility] July 17, 2022 03:28 PM ABDOMINAL AORTOGRAM (P): BERNARDMARYJO DIRK [id number] -1950 M Exm Date: JULY 17, 2022@15:28 Req Phys: MALCOM LANGLYE Loc: 07-17-2022@15:54 Img Loc: INTERVENTIONAL RADIOLOGY Service: PRIMARY CARE - MED OFFICE (Case [id number] COMPLETE) ANGIOGRAPHY EXTREMITY UNILAT S&I (ANI Detailed) CPT:97513 Reason for Study: codes (Case 528 COMPLETE) IR AORTOGRAPHY ABDOMINAL W/O RUNO(ANI Detailed) CPT:84385 (Case 529 COMPLETE) IR FOREIGN BODY REMOVAL INTRAVASC(ANI Detailed) CPT:61950 (Case 532 COMPLETE) IR NEEDLE/INTRACATH PLACEMENT EXT(ANI Detailed) CPT:07087 (Case 533 COMPLETE) IR PLACEMENT OCCLUSIVE DEVICE SAM(ANI Detailed) CPT:G0269 Clinical History: codes Report Status: Verified Date Reported: JULY 17, 2022 Date Verified: JULY 17, 2022 Sports [employer]caster E-Sig:/ES/MALCOM LANGLEY MD Report: RADIOLOGIST: Malcom Langley [...] angiogram and runoff. 12. Closure of right DETECTIVE BUREAU CHIEF with Angio-Seal device. HISTORY: Metastatic renal cell [...] Sheath removed over guidewire and a 5 maori vascular sheath advanced over guidewire into the artery. An H1 catheter was advanced along with the guidewire into the thoracic arch and the left subclavian artery was selected. Catheter and the guidewire were advanced into the left brachial artery. The 5 Citizen [place] sheath was exchanged for a 6 Citizen [place] sheath that was advanced into the left [...] arteries. Sheath and catheters were removed and DETECTIVE BUREAU CHIEF arteriotomy was closed using Angioseal. There is patent hemostasis. No bleeding or hematoma noted. Sterile dressing applied. 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 Primary Interpreting Staff: MALCOM LANGLEY MD, INTERVENTIONAL RADIOLOGIST (Sports Broadcaster) /MALCOM HE [facility] July 17, 2022 07:30 AM RENAL ARTERY EMBOLIZATION (P): MARYJO WAGNER [id number] -1950 M Exm Date: JULY 17, 2022@07:30 Req Phys: WESTON VASQUEZ Pat Loc: 07-17-2022@15:46 Img Loc: INTERVENTIONAL RADIOLOGY Service: PRIMARY CARE - MED OFFICE (Case [id number] COMPLETE) IR TRANSCATH EMBOLIZATION W/ANGIO(ANI Detailed) CPT:29147 Reason for Study: embolization of RCC mets to left humerus (Case 131 COMPLETE) IR ARTERIAL EMBOLIZATION OTHER TH(ANI Detailed) CPT:12633 (Case 132 COMPLETE) IR US GUIDANCE VASCULAR ACCESS (ANI Detailed) CPT:61423 Clinical History: [place] IS NOT under investigation for COVID-19 or [...] pager listed below: User placing orders pager: [phone] LAST CREATININE 1.0 (07/13/22) Report Status: Verified Date Reported: JULY 17, 2022 Date Verified: JULY 17, 2022 Sports [employer]caster E-Sig:/ES/MALCOM LANGLEY MD Report: RADIOLOGIST: Malcom Langley [...] angiogram and runoff. 12. Closure of right DETECTIVE BURE[employer] CHIEF with Angio-Seal device. HISTORY: Metastatic renal cell [...] Sheath removed over guidewire and a 5 maori vascular sheath advanced over guidewire into the artery. An H1 catheter was advanced along with the guidewire into the thoracic arch and the left subclavian artery was selected. Catheter and the guidewire were advanced into the left brachial artery. The 5 Citizen [place] sheath was exchanged for a 6 Citizen [place] sheath that was advanced into the left [...] arteries. Sheath and catheters were removed and DETECTIVE BURE[employer] CHIEF arteriotomy was closed using Angioseal. There is patent hemostasis. No bleeding or hematoma noted. Sterile dressing applied. 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 Primary Interpreting Staff: MALCOM LANGLEY MD, INTERVENTIONAL RADIOLOGIST (Sports Broadcaster) /MALCOM [facility] July 14, 2022 06:44 AM HUMERUS LEFT MINIMUM 2 VIEWS: MARYJO WAGNER [id number] -1950 M Ex Date: JULY 14, 2022@06:44 Req Phys: PEDROHERBERTJAIRO [facility] Loc: 07-14-2022@07:13 Img Loc: MAIN X-RAY Service: PRIMARY CARE - MED OFFICE (Case [id number] COMPLETE) HUMERUS LEFT MINIMUM 2 VIEWS (RAD Detailed) CPT:11436 Reason for Study: post reduction Clinical History: Report Status: Verified Date Reported: JULY 14, 2022 Date Verified: JULY 14, 2022 Sports Broadcaster E-Sig: Report: HUMERUS LEFT MINIMUM 2 VIEWS [...] less likely. READING PHYSICIAN: Xavier Merrill MD -[id number] 07/14/2022 5:11 PDT [facility] National Teleradiology Program [phone] (For Medical Practitioner Use Only) Attention Patients / Veterans: If you have questions or concerns about these test results, please contact your ordering provider or primary care team. Primary Interpreting Staff: RADIOLOGY,OUTSIDE SERVICE, Staff Physician / RADIOLOGY,OUTSIDE SERVICE [facility] July 13, 2022 10:07 AM HUMERUS LEFT MINIMUM 2 VIEWS: MARYJO WAGNER [id number] -1950 M Ex Date: JULY 13, 2022@10:07 Req Phys: WHITNEY ANDERSON Pat Loc: [facility] EMERGENCY DEPT WALK-IN (Re Img Loc: MAIN X-RAY Service: Unknown (Case [id number] COMPLETE) HUMERUS LEFT MINIMUM 2 VIEWS (RAD Detailed) CPT:30411 Proc Modifiers : LEFT Reason for Study: L arm pain Clinical History: [place] IS NOT under investigation for COVID-19 or is COVID-19 negative Atraumatic left upper extremity pain that is located midshaft humerus distally to the mid forearm. Clinical concern for dislocation versus fracture versus bone mets Responsible provider name and phone number to notify for critical findings if other than user placing the order and pager listed below: User placing orders pager: [phone] LAST CREATININE 0.8 (05/10/22) Report Status: Verified Date Reported: JULY 13, 2022 Date Verified: JULY 13, 2022 Sports Broadcaster E-Sig:/ES/ALBINA COWAN MD, FACR, CCD Report: EXAMINATION: [...] Staff: ALBINA COWAN MD, FACR, STAFF RADIOLOGIST (Sports Broadcaster) /[facility] ALBINA COWAN [facility] July 13, 2022 10:07 AM ELBOW LEFT 3 OR MORE VIEWS: MARYJO WAGNER [id number] -1950 M Exm Date: JULY 13, 2022@10:07 Req Phys: WHITNEY ANDERSON Pat Loc: [facility] EMERGENCY DEPT WALK-IN (Re Img Loc: MAIN X-RAY Service: Unknown (Case [id number] COMPLETE) ELBOW LEFT 3 OR MORE VIEWS (RAD Detailed) CPT:42045 Proc Modifiers : LEFT Reason for Study: L arm pain Clinical History: [place] IS NOT under investigation for COVID-19 or is COVID-19 negative Atraumatic left upper extremity pain that is located midshaft humerus distally to the mid forearm. Clinical concern for dislocation versus fracture versus bone mets Responsible provider name and phone number to notify for critical findings if other than user placing the order and pager listed below: User placing orders pager: [phone] LAST CREATININE 0.8 (05/10/22) Report Status: Verified Date Reported: JULY 13, 2022 Date Verified: JULY 13, 2022 Sports Broadcaster E-Sig:/ES/ALBINA COWAN MD, FACR, CCD Report: EXAMINATION: [...] Staff: ALBINA COWAN MD, FACR, STAFF RADIOLOGIST (Sports Broadcaster) /ALBINA NATHAN [facility] July 13, 2022 10:07 AM FOREARM LEFT 2 VIEWS: MARYJO WAGNER [id number] -1950 M Exm Date: JULY 13, 2022@10:07 Req Phys: MONICAWHITNEY MARIN Pat Loc: [facility] EMERGENCY DEPT WALK-IN (Re Img Loc: MAIN X-RAY Service: Unknown (Case [id number] COMPLETE) FOREARM LEFT 2 VIEWS (RAD Detailed) CPT:75120 Proc Modifiers : LEFT Reason for Study: L arm pain Clinical History: [place] IS NOT under investigation for COVID-19 or is COVID-19 negative Atraumatic left upper extremity pain that is located midshaft humerus distally to the mid forearm. Clinical concern for dislocation versus fracture versus bone mets Responsible provider name and phone number to notify for critical findings if other than user placing the order and pager listed below: User placing orders pager: [phone] LAST CREATININE 0.8 (05/10/22) Report Status: Verified Date Reported: JULY 13, 2022 Date Verified: JULY 13, 2022 Sports Broadcaster E-Sig:/ES/ALBINA COWAN MD, FACR, [facility] Report: EXAMINATION: FOREARM LEFT 2 VIEWS [...] Staff: ALBINA COWAN MD, FACR, STAFF RADIOLOGIST (Sports Broadcaster) /ALBINA NATHAN [facility] Pathology Reports: +/- 30 days [...] URGENCY: STATUS: COMPLETED $APHDR Reporting Lab: [facility] [CLIA# [id number]] [place] [address] - - - - - - - [...] is entirely submitted in A-D. CE. (D). [facility] FROZEN SECTION DIAGNOSES: SPEC. 1 - left [...] Laboratory: Surgical Pathology Report Performed By: [facility] [CLIA# [id number]] [place] [address] $FTR - - - - - - [...] - - MARYJO WAGNER STANDARD FORM 515 ID:[id number] SEX:M :1950 AGE: 72 LOC:[facility] PATHOLOGY PRO FEE ADM:June DX:PATHOLOGIC FX LF HUMERUS PCP: Leif Balbuena MD /sangita/ JIAN SANDOVAL STAFF PATHOLOGIST, PATHOLOGY & LABORATORY MED C Signed: 07/21/2022 14:[address] [facility]
--- OUTSIDE RECORDS SUMMARY | 2023-03-24 08:43 | XMS_ITS | Encounter Summary ---
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 of Vetera [facility] Address [address] [place] [id number] Support Name Relationship Address Phone DOREEN WAGNER Next of Kin [address] [place] [phone] DOREEN Emergency Contact [address] [place] [phone] Insurance Providers: All historical and current [...] Name Patient's Relationship to Policy [place] [employer] [facility] (WNR) MEDICARE ADVANTAGE [facility] June 26, 2016 [id number] CARSONLELIAJOAN SHELLEY PATIENT [employer] MCR (WNR) MEDICARE ADVANTAGE [facility] June 26, 2016 [id number] JOAN WAGNER KARSTEN PATIENT [employer] MCR (WNR) MEDICARE ADVANTAGE [facility] (R) June 26, 2016 [id number] [phone] JOAN WAGNER PATIENT Selected Encounter This section includes the information on record at ID for the Encounter. Date/Time Encounter Type Encounter Description Reason Provider Source July 19, 2022 08:54 AM THERAPEUTIC ACTIVITIES PHYSICAL THERAPY ICD-10-CM R26.89 Other abnormalities of gait and mobility MASON MILLER Encounter Template Text not used by ID Assessments - Encounter Diagnoses This section includes the primary and secondary diagnoses documented for the Encounter. Date/Time Primary/Secondary Diagnosis Diagnosis Name Provider Source July 19, 2022 12:47 PM PRIMARY Other abnormalities of gait and mobility MASON MILLER [facility] Plan of Treatment: Future Appointments (+ 6 months) and Future Tests (+/- 45 days) The Plan of Treatment section includes future care activities for the patient [facility] This section includes future appointments and future orders which are active, pending or scheduled. Future Appointments This section includes appointments that were scheduled to occur 6 months from the date of the Encounter, up to a maximum of 20 appointments. The data comes from all [facility]. Appointment Date/Time Appointment Type Appointme nt Facility Name Jul 28, 2022 10:45 AM AMBULATORY - MEDICINE [facility] Aug 13, 2022 06:13 PM AMBULATORY - MEDICINE [facility] Aug 23, 2022 09:30 AM AMBULATORY - SURGERY [facility] Aug 23, 2022 09:45 [facility] Aug 23, 2022 10:30 AM AMBULATORY - MEDICINE [facility] Aug 23, 2022 10:31 AM [facility] Sep 06, 2022 10:15 AM AMBULATORY - SURGERY [facility] Oct 25, 2022 07:00 AM [facility] Oct 25, 2022 07:30 AM AMBULATORY [...] of theEncounter. The data comes from all [facility]. Test Date/Time Test Type Test Details Facility Name Jun 12, 2022 12:00 AM Laboratory - Chemistry Order CBC & DIFF BLOOD ONCO SP ONCE [facility] Jun 12, 2022 12:00 AM Laboratory - Chemistry Order COMPREHENSIVE METABOLIC PANEL+MG PLASMA ONCO SP ONCE [facility] Jun 12, 2022 12:00 AM Laboratory - Chemistry Order TSH W/REFLEX TO FREE T4 PLASMA ONCO SP ONCE [facility] July 14, 2022 12:00 AM Laboratory - Blood Bank Order ABO/RH - LAB BLOOD WC [facility] July 14, 2022 02:05 PM Laboratory - Blood Bank Order TYPE & SCREEN - LAB BLOOD WC [facility] Aug 07, 2022 11:23 AM Laboratory - Chemistry Order DRUG SCREEN PANEL,URINE URINE WC ONCE [facility] Aug 23, 2022 10:47 AM Laboratory - Chemistry Order URINALYSIS URINE ER STAT [facility] Lab Results: +/- 30 days of [...] Range Comment July 19, 2022 04:40 PM [facility] FINGERSTICK GLUCOSE Specimen Type: BLOOD Comment: Save Result Nurse Notified Ordering Provider: MACKENZIE COTTER Report Released Date/Time: July 19, 2022 05:00 PM Reporting Lab: [facility] [id number] Performing Lab: [facility] [address] FINGERSTICK GLUCOSE 132 70-100 July 19, 2022 07:13 AM [facility] COMPREHENSIVE METABOLIC PANEL+MG Specimen Type: PLASMA No comment entered. Ordering Provider: MACKENZIE COTTER Report Released Date/Time: July 18, 2022 05:40 PM Reporting Lab: [facility] [address] Performing Lab: [facility] [address] CREATININE 0.9 0.7-1.2 UREA NITROGEN 24 8-26 [...] See_Commen t July 19, 2022 07:13 AM [facility] IRON GROUP Specimen Type: SERUM No comment entered. Ordering Provider: MACKENZIE COTTER Report Released Date/Time: July 18, 2022 05:40 PM Reporting Lab: [facility] [address] Performing Lab: [facility] [address] IRON 28 L 65-175 TIBC,CALCULATE D 223 L 250-425 FERRITIN 73.7 21.8-274.7 IRON SATURATION 13 L 20-50 TRANSFERRIN 178 163-382 July 19, 2022 07:13 AM [facility] CBC Specimen Type: BLOOD No comment entered. Ordering Provider: MACKENZIE COTTER Report Released Date/Time: July 18, 2022 05:40 PM Reporting Lab: [facility] [address] Performing Lab: [facility] [address] WBC 7.73 4.0-11.0 RBC 2.42 L 4.6-6.2 HGB 8.2 L 13.5-17.9 HCT 23.8 L 41-54 MCV 98.3 80-100 MCH 33.9 H 27-33 MCHC 34.5 32.0-37.5 PLT 155 150-400 MPV 9.6 7.4-10.4 RDW 13.5 11.5-14.5 July 19, 2022 05:44 AM [facility] FINGERSTICK GLUCOSE Specimen Type: BLOOD Comment: Save Result Nurse Notified Ordering Provider: MACKENZIE COTTER Report Released Date/Time: July 19, 2022 11:54 AM Reporting Lab: [facility] [address] Performing Lab: [facility] [address] FINGERSTICK GLUCOSE 137 70-100 July 18, 2022 10:51 PM [facility] FINGERSTICK GLUCOSE Specimen Type: BLOOD Comment: Save Result Nurse Notified Ordering Provider: MACKENZIE COTTER Report Released Date/Time: July 18, 2022 11:06 PM Reporting Lab: [facility] [address] Performing Lab: [facility] [address] FINGERSTICK GLUCOSE 163 70-100 July 17, 2022 06:51 AM [facility] BASIC METABOLIC PANEL+MG Specimen Type: PLASMA No comment entered. Ordering Provider: FOSSLAND,DANG R Report Released Date/Time: July 16, 2022 09:37 AM Reporting Lab: [facility] [address] Performing Lab: [facility] [address] CREATININE 0.8 0.7-1.2 UREA NITROGEN 23 8-26 GLUCOSE 107 H 70-100 SODIUM 139 136-145 POTASSIUM 3.9 3.5-5.1 CHLORIDE 106 98-107 CO2 28 22-29 CALCIUM 9.1 8.4-10.2 MAGNESIUM 1.9 1.6-2.6 ANION GAP 5 5-15 .CREAT EGFR(CKD-EPI) >90 See_Commen t July 17, 2022 06:51 AM [facility] PROTHROMBIN TIME/INR Specimen Type: PLASMA No comment entered. Ordering Provider: DANG VALLE R Report Released Date/Time: July 16, 2022 09:37 AM Reporting Lab: [facility] [address] Performing Lab: [facility] [address] .INR 1.0 0.8-1.1 .PT 11.5 9.4-12.5 July 17, 2022 06:51 AM [facility] CBC Specimen Type: BLOOD No comment entered. Ordering Provider: DANG VALLE R Report Released Date/Time: July 16, 2022 09:37 AM Reporting Lab: [facility] [address] Performing Lab: [facility] [address] WBC 6.05 4.0-11.0 RBC 3.77 L 4.6-6.2 HGB 12.7 L 13.5-17.9 HCT 36.0 L 41-54 MCV 95.5 80-100 MCH 33.7 H 27-33 MCHC 35.3 32.0-37.5 PLT 179 150-400 MPV 9.4 7.4-10.4 RDW 13.2 11.5-14.5 July 13, 2022 11:22 AM [facility] COVID-19 AND FLU/RSV DIAG PANEL(CEPHEID) Specimen Typ e: NASOPHARYNGEAL Comment: Cepheid GeneXpert (618) Ordering Provider: WHITNEY ANDERSON Report Released Date/Time: July 13, 2022 11:04 AM Reporting Lab: [facility] [address] Performing Lab: [facility] [address] COVID-19 (CEPHEID) Not Detected Not Detected INFLUENZA A (PCR) Not Detected Not Detected INFLUENZA B (PCR) Not Detected Not Detected RSV (PCR) Not Detected Not Detected July 13, 2022 11:00 AM [facility] C-REACTIVE PROTEIN Specimen Type: SERUM Comment: Automated Differential Performed Ordering Provider: WHITNEY ANDERSON Report Released Date/Time: July 13, 2022 11:04 AM Reporting Lab: [facility] [address] Performing Lab: [facility] [address] C-REACTIVE PROTEIN 1.17 <5.00 July 13, 2022 11:00 AM [facility] PROTHROMBIN TIME/INR Specimen Type: PLASMA No comment entered. Ordering Provider: WHITNEY ANDERSON Report Released Date/Time: July 13, 2022 11:04 AM Reporting Lab: [facility] [address] Performing Lab: [facility] [address] .INR 0.9 0.8-1.1 .PT 11.1 9.4-12.5 July 13, 2022 11:00 AM [facility] SED RATE Specimen Type: BLOOD No comment entered. Ordering Provider: WHITNEY ANDERSON Report Released Date/Time: July 13, 2022 11:04 AM Reporting Lab: [facility] [address] Performing Lab: [facility] [address] SED RATE 10 5-15 July 13, 2022 11:00 AM [facility] CBC & DIFF Specimen Type: BLOOD Comment: Automated Differential Performed Ordering Provider: WHITNEY ANDERSON Report Released Date/Time: July 13, 2022 11:04 AM Reporting Lab: [facility] [address] Performing Lab: [facility] [address] WBC 8.82 4.0-11.0 RBC 3.89 L 4.6-6.2 [...] 0.03 0-0.1 July 13, 2022 11:00 AM [facility] COMPREHENSIVE METABOLIC PANEL+MG Specimen Type: PLASMA Comment: Automated Differential Performed Ordering Provider: WHITNEY ANDERSON Report Released Date/Time: July 13, 2022 11:04 AM Reporting Lab: [facility] [address] Performing Lab: [facility] [address] CREATININE 1.0 0.7-1.2 UREA NITROGEN 16 8-26 [...] 137/75 mm[Hg] 18 /min 91 % 0 [facility] July 19, 2022 10:50 PM 7 [facility] July 19, 2022 09:57 PM 8 [facility] July 19, 2022 08:30 PM 7 [facility] July 19, 2022 08:29 PM 7 [facility] Social History: Smoking Status (Most current) and [...] 10, 2022 09:15 AM VA-TOBACCO FORMER USER [facility] Tobacco Use History This section includes a history of the smoking, or tobacco-related health factors, that were collected on or before the date of the Encounter. The data comes from the ID facility where the Encounter took place. Date/Time Smoking Status/Tobacco Use Comment F acility May 10, 2022 09:15 AM VA-TOBACCO QUIT 15 YRS OR MORE [facility] May 11, 2021 09:15 AM VA-TOBACCO FORMER USER [facility] May 11, 2021 09:15 AM VA-TOBACCO QUIT 15 YRS OR MORE [facility] Nov 22, 2018 01:36 PM VA-TOBACCO NEVER USED [facility] Nov 12, 2017 07:35 AM FORMER TOBACCO USER 7Y OR GREATE R [facility] Nov 06, 2016 09:05 AM FORMER TOBACCO USER 7Y OR GREATE R [facility] Sep 27, 2015 09:42 AM FORMER TOBACCO USER 7Y OR GREATE R [facility] Sep 25, 2014 07:55 AM FORMER TOBACCO USER 7Y OR GREATE R [facility] Sep 08, 2013 07:48 AM FORMER TOBACCO USER 7Y OR GREATE R [facility] July 09, 2012 09:20 AM FORMER TOBACCO USE >1Y <7Y [facility] Jun 06, 2011 07:53 AM FORMER TOBACCO USE >1Y <7Y [facility] Sep 09, 2009 03:03 PM FORMER TOBACCO USE >1Y <7Y [facility] Aug 11, 2008 01:06 PM FORMER TOBACCO USE <1Y [facility] Sep 19, 2007 02:52 PM CURRENT TOBACCO USER [facility] Sep 03, 2006 03:32 PM CURRENT TOBACCO USER [facility] Advance Directives: All historical and current [...] Mar 18, 2003 ADVANCE DIRECTIVE FARHAT MELGAR [facility] Radiology Reports: +/- 30 days [...] 07:50 AM CHEST 1 VIEW: MARYJO WAGNER [id number] -1950 M Exm Date: JULY 20, 2022@07:50 Req Phys: MACEKNZIE COTTER Pat Loc: 07-20-2022@08:26 Img Loc: MAIN X-RAY Service: PRIMARY CARE - MED OFFICE (Case [id number] COMPLETE) CHEST 1 VIEW (RAD Detailed) CPT:66090 Proc Modifiers : PORTABLE EXAM Reason for Study: see below. thanks. Clinical History: IS NOT under investigation for COVID-19 or is COVID-19 negative Please further evaluate for acute airspace disease given o2 requirement. Thanks. Responsible provider name and phone number to notify for critical findings if other than user placing the order and pager listed below: User placing orders pager: [phone] same LAST CREATININE 0.9 (07/19/22) Report Status: Verified Date Reported: JULY 20, 2022 Date Verified: JULY 20, 2022 News Librarian E-Sig:/ES/JAMIE MIGUEL MD Report: EXAM: CHEST 1 VIEW HISTORY: see below. thanks. Reason for Study: see below. thanks. [place] IS NOT under investigation for COVID-19 or is COVID-19 negative Please further evaluate for acute airspace disease given o2 requirement. Thanks. Responsible provider name and phone number to notify for critical findings if other than user placing the order and pager listed below: User placing orders pager: [phone] same LAST CREATININE 0. COMPARISON: Chest CT [...] Primary Interpreting Staff: JAMIE MIGUEL MD, RADIOLOGIST (News Librarian) /JAMIE FRANCES [facility] July 18, 2022 12:59 PM ELBOW LEFT 2 VIEWS: MARYJO WAGNER [id number] -1950 M Exm Date: JULY 18, 2022@12:59 Req Phys: LEIF BALBUENA Loc: OR-PACU/07-18-2022@13:59 Img Loc: MAIN X-RAY Service: ZZSURGICAL SERVICE (Case [id number] COMPLETE) ELBOW LEFT 2 VIEWS (RAD Detailed) CPT:29321 Proc Modifiers : PORTABLE EXAM, OPERATING ROOM EXAM Reason for Study: post-op Clinical History: post-op Report Status: Verified Date Reported: JULY 18, 2022 Date Verified: JULY 18, 2022 News Librarian E-Sig:/ES/JAKUB LEE MD Report: EXAM: ELBOW LEFT [...] Primary Interpreting Staff: JAKUB LEE MD, RADIOLOGIST (News Librarian) /JAKUB LUCERO [facility] July 18, 2022 07:30 AM FLUORO UP TO 1 HR PHYSICIAN TIME: MARYJO WAGNER [id number] -1950 M Exm Date: JULY 18, 2022@07:30 Req Phys: LEIF BALBUENA Loc: OR-PACU/07-18-2022@13:14 Img Loc: MAIN X-RAY Service: PRIMARY CARE - MED OFFICE (Case [id number] COMPLETE) FLUORO UP TO 1 HR PHYSICIAN TIME (RAD Detailed) CPT:64393 Proc Modifiers : PORTABLE EXAM, OPERATING ROOM EXAM, LEFT Reason for Study: Left distal humerous ORIF Clinical History: OR 7 Pathologic distal humeral shaft fracture Responsible provider name and phone number to notify for critical findings if other than user placing the order and pager listed below: User placing orders pager: Jericho BALBUENAChino [phone] LAST CREATININE 0.8 (07/17/22) Report Status: Electronically Filed Date Reported: JULY 18, 2022 Report: Impression: Please see the full report for this procedure in CPRS patient progress notes. Fluoro guidance was provided during this procedure, but the study was not reviewed or verified by a [facility] radiologist. The radiation exposure dose has been recorded in the patient's chart. If you are unable to view this data, please contact the Imaging Department. VERIFIED BY: / *ELECTRONICALLY FILED* [facility] July 17, 2022 03:28 PM ABDOMINAL AORTOGRAM (P): MARYJO WAGNER [id number] -1950 M Exm Date: JULY 17, 2022@15:28 Req Phys: ASHMARY ANNEMALCOM [facility] Loc: 07-17-2022@15:54 Im Loc: INTERVENTIONAL RADIOLOGY Service: PRIMARY CARE - MED OFFICE (Case [id number] COMPLETE) ANGIOGRAPHY EXTREMITY UNILAT S&I (ANI Detailed) CPT:76407 Reason for Study: codes (Case 528 COMPLETE) IR AORTOGRAPHY ABDOMINAL W/O RUNO(ANI Detailed) CPT:36084 (Case 529 COMPLETE) IR FOREIGN BODY REMOVAL INTRAVASC(ANI Detailed) CPT:72030 (Case 532 COMPLETE) IR NEEDLE/INTRACATH PLACEMENT EXT(ANI Detailed) CPT:59076 (Case 533 COMPLETE) IR PLACEMENT OCCLUSIVE DEVICE SAM(ANI Detailed) CPT:G0269 Clinical History: codes Report Status: Verified Date Reported: JULY 17, 2022 Date Verified: JULY 17, 2022 News Librarian E-Sig:/ES/MALCOM LANGLEY MD Report: RADIOLOGIST: Malcom Langley [...] angiogram and runoff. 12. Closure of right BRASS CUTTER with Angio-Seal device. HISTORY: Metastatic renal cell [...] Sheath removed over guidewire and a 5 khmer vascular sheath advanced over guidewire into the artery. An H1 catheter was advanced along with the guidewire into the thoracic arch and the left subclavian artery was selected. Catheter and the guidewire were advanced into the left brachial artery. The 5 Yi sheath was exchanged for a 6 Yi sheath that was advanced into the left [...] arteries. Sheath and catheters were removed and BRASS CUTTER arteriotomy was closed using Angioseal. There is patent hemostasis. No bleeding or hematoma noted. Sterile dressing applied. 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 Primary Interpreting Staff: MALCOM LANGLEY MD, INTERVENTIONAL RADIOLOGIST (Hugo) /MALCOM HE [facility] July 17, 2022 07:30 AM RENAL ARTERY EMBOLIZATION (P): MARYJO WAGNER [id number] -1950 M Exm Date: JULY 17, 2022@07:30 Req Phys: WESTON SEPULVEDA Pat Loc: 07-17-2022@15:46 Img Loc: INTERVENTIONAL RADIOLOGY Service: PRIMARY CARE - MED OFFICE (Case 130 COMPLETE) IR TRANSCATH EMBOLIZATION W/ANGIO(ANI Detailed) CPT:18362 Reason for Study: embolization of RCC mets to left humerus (Case 131 COMPLETE) IR ARTERIAL EMBOLIZATION OTHER TH(ANI Detailed) CPT:88352 (Case 132 COMPLETE) IR US GUIDANCE VASCULAR ACCESS (ANI Detailed) CPT:40389 Clinical History: [place] IS NOT under investigation for COVID-19 or [...] pager listed below: User placing orders pager: [phone] LAST CREATININE 1.0 (07/13/22) Report Status: Verified Date Reported: JULY 17, 2022 Date Verified: JULY 17, 2022 News Librarian E-Sig:/ES/MALCOM LANGLEY MD Report: RADIOLOGIST: Malcom Langley [...] angiogram and runoff. 12. Closure of right BRASS CUTTER with Angio-Seal device. HISTORY: Metastatic renal cell [...] Sheath removed over guidewire and a 5 khmer vascular sheath advanced over guidewire into the artery. An H1 catheter was advanced along with the guidewire into the thoracic arch and the left subclavian artery was selected. Catheter and the guidewire were advanced into the left brachial artery. The 5 Yi sheath was exchanged for a 6 Yi sheath that was advanced into the left [...] arteries. Sheath and catheters were removed and BRASS CUTTER arteriotomy was closed using Angioseal. There is patent hemostasis. No bleeding or hematoma noted. Sterile dressing applied. 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 Primary Interpreting Staff: MALCOM LANGLEY MD, INTERVENTIONAL RADIOLOGIST (News Librarian) /MALCOM HE [facility] July 14, 2022 06:44 AM HUMERUS LEFT MINIMUM 2 VIEWS: MARYJO WAGNER [place] [id number] -1950 M Exm Date: JULY 14, 2022@06:44 Req Phys: JEAN PAULLISSETHWESTON Pat Loc: 07-14-2022@07:13 Img Loc: MAIN X-RAY Service: PRIMARY CARE - MED OFFICE (Case [id number] COMPLETE) HUMERUS LEFT MINIMUM 2 VIEWS (RAD Detailed) CPT:10910 Reason for Study: post reduction Clinical History: Report Status: Verified Date Reported: JULY 14, 2022 Date Verified: JULY 14, 2022 News Librarian E-Sig: Report: HUMERUS LEFT MINIMUM 2 VIEWS [...] less likely. READING PHYSICIAN: Xavier Merrill MD -[id number] 07/14/2022 5:11 PDT [facility] National Teleradiology Program [phone] (For Medical Practitioner Use Only) Attention Patients / Veterans: If you have questions or concerns about these test results, please contact your ordering provider or primary care team. Primary Interpreting Staff: RADIOLOGY,OUTSIDE SERVICE, Staff Physician / RADIOLOGY,OUTSIDE SERVICE [facility] July 13, 2022 10:07 AM HUMERUS LEFT MINIMUM 2 VIEWS: MARYJO WAGNER [id number] -1950 M Exm Date: JULY 13, 2022@10:07 Req Phys: WHITNEY ANDERSON Pat Loc: [facility] EMERGENCY DEPT WALK-IN (Re Img Loc: MAIN X-RAY Service: Unknown (Case [id number] COMPLETE) HUMERUS LEFT MINIMUM 2 VIEWS (RAD Detailed) CPT:42202 Proc Modifiers : LEFT Reason for Study: L arm pain Clinical History: [place] IS NOT under investigation for COVID-19 or is COVID-19 negative Atraumatic left upper extremity pain that is located midshaft humerus distally to the mid forearm. Clinical concern for dislocation versus fracture versus bone mets Responsible provider name and phone number to notify for critical findings if other than user placing the order and pager listed below: User placing orders pager: [phone] LAST CREATININE 0.8 (05/10/22) Report Status: Verified Date Reported: JULY 13, 2022 Date Verified: JULY 13, 2022 News Librarian E-Sig:/ES/ALBINA COWAN MD, FACR, CCD Report: EXAMINATION: [...] Staff: ALBINA COWAN MD, FACR, STAFF RADIOLOGIST (News Librarian) /BSF ALBINA COWAN [facility] July 13, 2022 10:07 AM ELBOW LEFT 3 OR MORE VIEWS: MARYJO WAGNER [id number] -1950 M Exm Date: JULY 13, 2022@10:07 Req Phys: WHITNEY ANDERSON Pat Loc: [facility] EMERGENCY DEPT WALK-IN (Re Img Loc: MAIN X-RAY Service: Unknown (Case [id number] COMPLETE) ELBOW LEFT 3 OR MORE VIEWS (RAD Detailed) CPT:88580 Proc Modifiers : LEFT Reason for Study: [...] pager listed below: User placing orders pager: [phone] LAST CREATININE 0.8 (05/10/22) Report Status: Verified Date Reported: JULY 13, 2022 Date Verified: JULY 13, 2022 News Librarian E-Sig:/ES/ALBINA COWAN MD, FACR, CCD Report: EXAMINATION: [...] Staff: ALBINA COWAN MD, FACR, STAFF RADIOLOGIST (News Librarian) /BSF ALBINA COWAN [facility] July 13, 2022 10:07 AM FOREARM LEFT 2 VIEWS: MARYJO WAGNER [id number] -1950 M Exm Date: JULY 13, 2022@10:07 Req Phys: WHITNEY ANDERSON Pat Loc: [facility] EMERGENCY DEPT WALK-IN (Re Img Loc: MAIN X-RAY Service: Unknown (Case [id number] COMPLETE) FOREARM LEFT 2 VIEWS (RAD Detailed) CPT:36517 Proc Modifiers : LEFT Reason for Study: [...] pager listed below: User placing orders pager: [phone] LAST CREATININE 0.8 (05/10/22) Report Status: Verified Date Reported: JULY 13, 2022 Date Verified: JULY 13, 2022 News Librarian E-Sig:/ES/ALBINA COWAN MD, FACR, CCD Report: EXAMINATION: [...] Staff: ALBINA COWAN MD, FACR, STAFF RADIOLOGIST (News Librarian) /BSF ALBINA COWAN [facility] Pathology Reports: +/- 30 days of [...] COSIGNER: URGENCY: STATUS: COMPLETED $APHDR Reporting Lab: [facility] [CLIA# [id number]] [place] [address] - - - - - - - [...] SANDOVAL STAFF PATHOLOGIST, PATHOLOGY & LABORATORY [place] [facility] [place] July 21, 2022@14:37 Performing Laboratory: Surgical Pathology Report Performed By: [facility] [CLIA# [id number]] [place] [address] $FTR - - - - - - [...] - - MARYJO WAGNER STANDARD FORM 515 ID:[id number] SEX:M :1950 AGE: 72 LOC:[facility] PATHOLOGY PRO FEE ADM:June DX:PATHOLOGIC FX LF HUMERUS PCP: Leif Balbuena MD /sangita/ JIAN SANDOVAL STAFF PATHOLOGIST, PATHOLOGY & LABORATORY [place] [facility] [place] Signed: 07/21/2022 14:37 JIAN SANDOVAL [facility] Encounter Notes: All associated encounter notes This section contains the clinical notes associated to the Encounter. Date/Time Encounter Note(s) Provider Source July 19, 2022 08:55 AM PHYSICAL THERAPY C ONSULT: LOCAL TITLE: PHYSICAL THERAPY CONSULT STANDARD TITLE: PHYSICAL THERAPY CONSULT DATE OF NOTE: JULY 19, 2022@08:55 ENTRY DATE: JULY 19, 2022@08:55:06 AUTHOR: MASON MILLER EXP COSIGNER: URGENCY: STATUS: COMPLETED PHYSICAL THERAPY EVALUATION - INPATIENT Date of Service: June Treatment: PT Evaluation x17' & ther act x9' Resident Surgeon(s): Andrew Armstrong MD; Weston Sepulveda MD Staff Surgeon: Leif Balbuena MD Medical Diagnosis: Pathologic fx L distal humerus 2/2 metastatic RCC s/p ORIF c/ tumor excision, cement augmentation, & olecranon osteotomy 07/18 Treatment Diagnosis: Abnormality of gait and mobility Precautions: Falls Risk Restrictions: WB Status: NWB L UE in sling SUBJECTIVE: Patient is a 72 year old MALE referred to PT for post-op mobility impairments in pt c/ untreated RCC who is admitted after L UE pain x 1 month. He was found to have a pathologic distal humerus fx & is now POD #1 s/p surgical fixation. He is met at [facility] on [address]. He is agreeable to PT session, but mentions multiple times that he is fearful of falling. Feels better after moving. * Pt goes by [facility] * Home Environment: Style: Single-level Home c/ his , where all needs met on main level Stairs: 2 SONIDO to enter c/ no HR PLOF: Locomotion: Ambulatory for Community Distances (> 900 ft) Ind s/ AD - up to 2miles per pt report Transfers: Independent ADLs: Independent IADLs: Independent does cooking, cleaning, laundry. Falls: No: Has not fallen within the last 6 months. Pain: has OnQ pnc in place; catheter site benign Location: Intensity: At rest & with activity 07/05. OBJECTIVE: Orientation: A&O x3 c/ date read from white board. He responds appropriately to questions and conversation. Sensation: Light touch sensation is diminished in L UE. Edema/Skin Integrity: Intact to exposed skin. Edema: moderate in L hand & as seen proximal to L UE post-op splint Range of Motion: Both LE are within functional limits. L UE in post-op splint MMT Both Lower Extremities > 3+/5 via observation while seated EOB, but functionally weak & requires heavy R UE assist to complete STS transfer 5x sit<>stand: pt is unable to complete s/ UE assist >15 sec indicates increased risk for falls Ther act: BADL's: LB dressing: Moderate assist to thread legs thru undershorts & hospital pants. Max assist to pull up from knees 2/2 feeling mildly light headed & unsteady. Pt did not feel comfortable letting go to trial pulling them up UB dressing: Min A to remove hospital gown; max assist to cut & remove envelope sling. Max A to don gown & sling on L UE FUNCTIONAL MOBILITY: Transfers: Sit to Stand/Stand to Sit Min - CGA from slightly elevated bed; wide KATY c/ incr'd time & caution to move his COG forward over his KATY & then incr'd time to magazine hand upright trunk posture Bed to Chair/Chair to Bed Moderate Assist for balance Balance: Patient is able to sit EOB indep for min. Patient requires stable 1 UE support & wide KATY to stand. 4 Stage balance test -Romberg: nt -modified tandem: nt -tandem: nt -SLS: nt Additional information: pt declines 2/2 feeling foggy from surgery. Feels unsteady c/ moderate fear of falling or LOB. Ambulation: Patient ambulated >110ft c/ moderate hand hold assistance. Pt declines trial of 1 handed use of walker at this time, but willing to trial cane or walker c/ nsg staff or next therapy session. Description: incr'd KATY c/ path deviation & variable gait speed. Mild improvement with incr'd distance. Gait Speed: nt, but < .4 m/s (<.4 m/s) Indicates increased risk for falls, re-hospitalization and more likely to be dependent c/ ADLs/ IADLs Stairs: Not tested 2/2 functional weakness & instability. Falls Risk: Patient is High risk for falls. Injury Risk: Increased 2/2 Decreased bone health - pathologic fx Anti-coagulation medication Post-operative status TE: Initiated Seated Exercise program of: Ankle pumps & LAQ Activity recommendations: Patient to on barboza TID c/ 1 handed use of walker & gait belt assist. Patient Education: - Educ pt on role of PT in acute setting, including maintaining strength to allow for improved indep with functional mobility. Also included POC, Goals, & DC recs. - Encouraged pt to walk c/ walker & staff assist, 2-3times/day. An activity order in placed in CPRS to reflect this c/ gait belt assist of staff. - Educated on physiological effects of bedrest & importance of mobility. Pt verbalizes good motivation to move/walk. - Educated to not get up without assistance d/t falls risk. - Warm hand off to RN c/ pt resting comfortably following session, call light in reach, and all requested needs met. ASSESSMENT: Pt is a 72 yo MALE admitted c/ L UE pain x1 month. He was found to have a pathologic fx of his L distal humerus & is now POD #1 s/p surgical fixation. At baseline, pt is indep with ADLs/IADLs and walks community distances without any AD. Today, pt is well below his baseline & displays impairments in pain, edema, functional strength, balance, & activity tolerance. Pt has difficulty participating in ADLs, ambulation, & stairs, because of these impairments. Anticipate pt will be able to return home c/ his pending further progress in PT. Pt is appropriate for skilled inpt PT services in order to address impairments and progress toward goals written below. Diagnoses in PMH that should be considered for participation/progress in therapy include: metastatic RCC (untreated), prostate cancer, HTN, SANTHOSH and obesity. Personal factors that may impact PT POC include: PLOF, supportive home environment, & at home. Response to treatment: fully participatory c/ high fear of falling; no adverse events Patient presents to Physical Therapy as: Evolving Clinical Decision Making was: Low Anticipated Function: Intermittent Assist Prognosis: good for return of functional mobility c/ R UE support c/ AD Discharge Recommendations: Home once medically stable Patient stated goals: hopes to be able to go home by the weekend Physical Therapy Goals: To be met by June, - supine<>sit, HOB elevated(bed wedge) c/ bedrail assist, in order to get out of bed for daily activity. - sit<>stand, supervision, in order to stand from toilet or dining chair. - ambulate 100feet using appropriate AD, supervision, in order to walk around home. - navigate 2steps c/ min-CGA , in order to access his home and community buildings. PLAN: Will continue to see for skilled Physical Therapy intervention 1x/day, 4-5 days per week per Length Of Stay or goals have been met. Patient Education of Treatment Plan: Patient indicates readiness to learn, verbalizes understanding, agreement and satisfaction with the treatment plan. Denies further questions. /sangita/ MASON MILLER PHYSICAL THERAPIST Signed: 07/19/2022 12:47 MASON MILLER [facility]
--- OUTSIDE RECORDS SUMMARY | 2023-03-24 08:44 | XMS_ITS ---
ANESTHESIA PRE/POST-OP CONSULT [facility] Encounter Summary Created on: March 24, 2023 MARYJO WAGNER : 1950 Sex: Male 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 [facility] Organization Department of [facility] Address [address] [place] [address] Support Name Relationship Address Phone DOREEN WAGNER Next of Kin [address] [place] [phone] DOREEN Emergency Contact [phone] [place] [phone] Insurance Providers: All historical and current [...] [place]'s Name Patient's Relationship to Policy [place] [facility] ([facility]) MEDICARE ADVANTAGE MCR ([facility]) June 26, 2016 [id number] BERNARDJOAN SHELLEY PATIENT [facility] [facility] ([facility]) MEDICARE ADVANTAGE MCR ([facility]) June 26, 2016 [id number] JOAN WAGNER KARSTEN PATIENT [facility] [facility] (W[facility]) MEDICARE ADVANTAGE MCR ([facility]) June 26, 2016 [id number] JOAN WAGNER KARSTEN PATIENT Selected Encounter This section includes the information on record at [place] for the Encounter. Date/Time Encounter Type Encounter Description Reason Provider Source July 19, 2022 10:10 AM POSTOP FOLLOW-UP VISIT ANESTHESIA PRE/POST-OP CONSULT ICD-10-CM S42.402A Unsp fracture of lower end of left humerus, init for clos aaron TRILLOS,MARIANO SUKHWINDER IHE Encounter Template Text not used by [place] Assessments - Encounter Diagnoses This section includes the primary and secondary diagnoses documented for the Encounter. Date/Time Primary/Secondary Diagnosis Diagnosis Name Provider Source July 19, 2022 10:48 AM PRIMARY Unsp fracture of lower end of left humerus, init for clos fx [facility]O [facility] July 19, 2022 10:48 AM SECONDARY Essential (primary) hypertension [facility] July 19, 2022 10:48 AM SECONDARY Malignant neoplasm of left kidney, except renal pelvis [facility]O [facility] July 19, 2022 10:48 AM SECONDARY Secondary malignant neoplasm of other digestive organs [facility] Plan of Treatment: Future Appointments (+ 6 months) and Future Tests (+/- 45 days) The Plan of Treatment section includes future care activities for the [facility] This section includes future appointments and future orders which are active, pending or scheduled. Future Appointments This section includes appointments that were scheduled to occur 6 months from the date of the Encounter, up to a maximum of 20 appointments. The data comes from all [facility]. Appointment Date/Time Appointment Type Appointme nt Facility Name Jul 28, 2022 10:45 AM AMBULATORY - MEDICINE [facility] Aug 13, 2022 06:13 PM AMBULATORY - MEDICINE [facility] Aug 23, 2022 09:30 AM AMBULATORY - SURGERY [facility] Aug 23, 2022 09:45 AM AMBULATORY - NONE [facility] Aug 23, 2022 10:30 AM AMBULATORY - MEDICINE [facility] Aug 23, 2022 10:31 AM AMBULATORY - MEDICINE [facility] Sep 06, 2022 10:15 AM AMBULATORY - SURGERY [facility] Oct 25, 2022 07:00 AM AMBULATORY - NONE [facility] Oct 25, 2022 07:30 AM AMBULATORY - SURGERY [facility] Oct 25, 2022 09:00 AM AMBULATORY SURGERY [facility] Active, Pending, and Scheduled Orders This section includes a listing of several types of active, pending, and scheduled orders, including clinic medications orders, diagnostic test orders, procedure orders and consult orders; where the start date of the order is 45 days before the date of the Encounter or 45 days after the date of theEncounter. The data comes from all [facility]. Test Date/Time Test Type Test Details Facility Name Jun 12, 2022 12:00 AM Laboratory - Chemistry Order CBC & DIFF BLOOD ONCO SP ONCE [facility] Jun 12, 2022 12:00 AM Laboratory - Chemistry Order COMPREHENSIVE METABOLIC PANEL+MG PLASMA ONCO SP ONCE [facility] Jun 12, 2022 12:00 AM Laboratory - Chemistry Order TSH W/REFLEX TO FREE T4 PLASMA ONCO SP ONCE [facility] July 14, 2022 12:00 AM Laboratory - Blood Bank Order ABO/RH - LAB BLOOD [facility] July 14, 2022 02:05 PM Laboratory - Blood Bank Order TYPE & SCREEN - LAB BLOOD [facility] Aug 07, 2022 11:23 AM Laboratory - Chemistry Order DRUG SCREEN PANEL,URINE URINE [facility] Aug 23, 2022 10:47 AM Laboratory - Chemistry Order URINALYSIS URINE ER STAT [facility] Lab Results: +/- 30 days [...] Comment July 19, 2022 04:40 PM [facility] FINGERSTICK GLUCOSE Specimen Type: BLOOD Comment: Save Result Nurse Notified Ordering Provider: MACKENZIE COTTER Report Released Date/Time: July 19, 2022 05:00 PM Reporting Lab: [facility] [id number] Performing Lab: [facility] [address] FINGERSTICK GLUCOSE 132 70-100 July 19, 2022 07:13 AM [facility] COMPREHENSIVE METABOLIC PANEL+MG Specimen Type: PLASMA No comment entered. Ordering Provider: MACKENZIE COTTER Report Released Date/Time: July 18, 2022 05:40 PM Reporting Lab: [facility] [address] Performing Lab: [facility] [address] CREATININE 0.9 0.7-1.2 UREA NITROGEN 24 8-26 [...] t July 19, 2022 07:13 AM [facility] IRON GROUP Specimen Type: SERUM No comment entered. Ordering Provider: MACKENZIE COTTER Report Released Date/Time: July 18, 2022 05:40 PM Reporting Lab: [facility] [address] Performing Lab: [facility] [address] IRON 28 L 65-175 TIBC,CALCULATE D 223 L 250-425 FERRITIN 73.7 21.8-274.7 IRON SATURATION 13 L 20-50 TRANSFERRIN 178 163-382 July 19, 2022 07:13 AM [facility] CBC Specimen Type: BLOOD No comment entered. Ordering Provider: MACKENZIE COTTER Report Released Date/Time: July 18, 2022 05:40 PM Reporting Lab: [facility] [address] Performing Lab: [facility] [address] WBC 7.73 4.0-11.0 RBC 2.42 L 4.6-6.2 HGB 8.2 L 13.5-17.9 HCT 23.8 L 41-54 MCV 98.3 80-100 MCH 33.9 H 27-33 MCHC 34.5 32.0-37.5 PLT 155 150-400 MPV 9.6 7.4-10.4 RDW 13.5 11.5-14.5 July 19, 2022 05:44 AM [facility] FINGERSTICK GLUCOSE Specimen Type: BLOOD Comment: Save Result Nurse Notified Ordering Provider: MACKENZIE COTTER Report Released Date/Time: July 19, 2022 11:54 AM Reporting Lab: [facility] [address] Performing Lab: [facility] [address] FINGERSTICK GLUCOSE 137 70-100 July 18, 2022 10:51 PM [facility] FINGERSTICK GLUCOSE Specimen Type: BLOOD Comment: Save Result Nurse Notified Ordering Provider: MACKENZIE COTTER Report Released Date/Time: July 18, 2022 11:06 PM Reporting Lab: [facility] [address] Performing Lab: [facility] [address] FINGERSTICK GLUCOSE 163 70-100 July 17, 2022 06:51 AM [facility] BASIC METABOLIC PANEL+MG Specimen Type: PLASMA No comment entered. Ordering Provider: DANG VALLE R Report Released Date/Time: July 16, 2022 09:37 AM Reporting Lab: [facility] [address] Performing Lab: [facility] [address] CREATININE 0.8 0.7-1.2 UREA NITROGEN 23 8-26 GLUCOSE 107 H 70-100 SODIUM 139 136-145 POTASSIUM 3.9 3.5-5.1 CHLORIDE 106 98-107 CO2 28 22-29 CALCIUM 9.1 8.4-10.2 MAGNESIUM 1.9 1.6-2.6 ANION GAP 5 5-15 .CREAT EGFR(CKD-EPI) >90 See_Commen t July 17, 2022 06:51 AM [facility] PROTHROMBIN TIME/INR Specimen Type: PLASMA No comment entered. Ordering Provider: DANG VALLE R Report Released Date/Time: July 16, 2022 09:37 AM Reporting Lab: [facility] [address] Performing Lab: [facility] [address] .INR 1.0 0.8-1.1 .PT 11.5 9.4-12.5 July 17, 2022 06:51 AM [facility] CBC Specimen Type: BLOOD No comment entered. Ordering Provider: DANG VALLE R Report Released Date/Time: July 16, 2022 09:37 AM Reporting Lab: [facility] [address] Performing Lab: [facility] [address] WBC 6.05 4.0-11.0 RBC 3.77 L 4.6-6.2 HGB 12.7 L 13.5-17.9 HCT 36.0 L 41-54 MCV 95.5 80-100 MCH 33.7 H 27-33 MCHC 35.3 32.0-37.5 PLT 179 150-400 MPV 9.4 7.4-10.4 RDW 13.2 11.5-14.5 July 13, 2022 11:22 AM [facility] COVID-19 AND FLU/RSV DIAG PANEL(CEPHEID) Specimen Typ e: NASOPHARYNGEAL Comment: Cepheid GeneXpert (618) Ordering Provider: WHITNEY ANDERSON Report Released Date/Time: July 13, 2022 11:04 AM Reporting Lab: [facility] [address] Performing Lab: [facility] [address] COVID-19 (CEPHEID) Not Detected Not Detected INFLUENZA A (PCR) Not Detected Not Detected INFLUENZA B (PCR) Not Detected Not Detected RSV (PCR) Not Detected Not Detected July 13, 2022 11:00 AM [facility] PROTHROMBIN TIME/INR Specimen Type: PLASMA No comment entered. Ordering Provider: WHITNEY ANDERSON Report Released Date/Time: July 13, 2022 11:04 AM Reporting Lab: [facility] [address] Performing Lab: [facility] [address] .INR 0.9 0.8-1.1 .PT 11.1 9.4-12.5 July 13, 2022 11:00 AM [facility] C-REACTIVE PROTEIN Specimen Type: SERUM Comment: Automated Differential Performed Ordering Provider: WHITNEY ANDERSON Report Released Date/Time: July 13, 2022 11:04 AM Reporting Lab: [facility] [address] Performing Lab: [facility] [address] C-REACTIVE PROTEIN 1.17 <5.00 July 13, 2022 11:00 AM [facility] SED RATE Specimen Type: BLOOD No comment entered. Ordering Provider: WHITNEY ANDERSON Report Released Date/Time: July 13, 2022 11:04 AM Reporting Lab: [facility] [address] Performing Lab: [facility] [address] SED RATE 10 5-15 July 13, 2022 11:00 AM [facility] CBC & DIFF Specimen Type: BLOOD Comment: Automated Differential Performed Ordering Provider: WHITNEY ANDERSON Report Released Date/Time: July 13, 2022 11:04 AM Reporting Lab: [facility] [address] Performing Lab: [facility] [address] WBC 8.82 4.0-11.0 RBC 3.89 L 4.6-6.2 [...] 0-0.1 July 13, 2022 11:00 AM [facility] COMPREHENSIVE METABOLIC PANEL+MG Specimen Type: PLASMA Comment: Automated Differential Performed Ordering Provider: WHITNEY ANDERSON Report Released Date/Time: July 13, 2022 11:04 AM Reporting Lab: [facility] [address] Performing Lab: [facility] [address] CREATININE 1.0 0.7-1.2 UREA NITROGEN 16 8-26 [...] 137/75 mm[Hg] 18 /min 91 % 0 [facility] July 19, 2022 10:50 PM 7 [facility] July 19, 2022 09:57 PM 8 [facility] July 19, 2022 08:30 PM 7 [facility] July 19, 2022 08:29 PM 7 [facility] Social History: Smoking Status (Most current) [...] VA-TOBACCO QUIT 15 YRS OR MORE [facility] Tobacco Use History This section includes a history of the smoking, or tobacco-related health factors, that were collected on or before the date of the Encounter. The data comes from the [place] facility where the Encounter took place. Date/Time Smoking Status/Tobacco Use Comment F acility May 10, 2022 09:15 AM VA-TOBACCO QUIT 15 YRS OR MORE [facility] May 11, 2021 09:15 AM VA-TOBACCO FORMER USER [facility] May 11, 2021 09:15 AM VA-TOBACCO QUIT 15 YRS OR MORE [facility] Nov 22, 2018 01:36 PM VA-TOBACCO NEVER USED [facility] Nov 12, 2017 07:35 AM FORMER TOBACCO USER 7Y OR GREATE R [facility] Nov 06, 2016 09:05 AM FORMER TOBACCO USER 7Y OR GREATE R [facility] Sep 27, 2015 09:42 AM FORMER TOBACCO USER 7Y OR GREATE R [facility] Sep 25, 2014 07:55 AM FORMER TOBACCO USER 7Y OR GREATE R [facility] Sep 08, 2013 07:48 AM FORMER TOBACCO USER 7Y OR GREATE R [facility] July 09, 2012 09:20 AM FORMER TOBACCO USE >1Y <7Y [facility] Jun 06, 2011 07:53 AM FORMER TOBACCO USE >1Y <7Y [facility] Sep 09, 2009 03:03 PM FORMER TOBACCO USE >1Y <7Y [facility] Aug 11, 2008 01:06 PM FORMER TOBACCO USE <1Y [facility] Sep 19, 2007 02:52 PM CURRENT TOBACCO USER [facility] Sep 03, 2006 03:32 PM CURRENT TOBACCO USER [facility] Advance Directives: All historical [...] Mar 18, 2003 ADVANCE DIRECTIVE FARHAT MELGAR [facility] Radiology Reports: +/- 30 days of the [...] 20, 2022 07:50 AM CHEST 1 VIEW: BERNARDMARYJO CAVAZOS [id number] -1950 M Exm Date: JULY 20, 2022@07:50 Req Phys: MACKENZIE COTTER Pat Loc: 07-20-2022@08:26 Img Loc: MAIN X-RAY Service: PRIMARY CARE - MED OFFICE (Case [id number] COMPLETE) CHEST 1 VIEW (RAD Detailed) CPT:28445 Proc Modifiers : PORTABLE EXAM Reason for Study: see below. thanks. Clinical History: IS NOT under investigation for COVID-19 or is COVID-19 negative Please further evaluate for acute airspace disease given o2 requirement. Thanks. Responsible provider name and phone number to notify for critical findings if other than user placing the order and pager listed below: User placing orders pager: [phone] same LAST CREATININE 0.9 (07/19/22) Report Status: Verified Date Reported: JULY 20, 2022 Date Verified: JULY 20, 2022 [employer] E-Sig:/ES/JAMIE MIGUEL MD Report: EXAM: CHEST 1 VIEW HISTORY: see below. thanks. Reason for Study: see below. thanks. [place] IS NOT under investigation for COVID-19 or is COVID-19 negative Please further evaluate for acute airspace disease given o2 requirement. Thanks. Responsible provider name and phone number to notify for critical findings if other than user placing the order and pager listed below: User placing orders pager: [phone] same LAST CREATININE 0. COMPARISON: Chest CT [...] Primary Interpreting Staff: JAMIE MIGUEL MD, RADIOLOGIST (Bill Checker) /JAMIE FRANCES [facility] July 18, 2022 12:59 PM ELBOW LEFT 2 VIEWS: MARYJO WAGNER MATARA [id number] -1950 M Exm Date: JULY 18, 2022@12:59 Req Phys: LEIF BALBUENA Loc: OR-PACU/07-18-2022@13:59 Img Loc: MAIN X-RAY Service: ZZSURGICAL SERVICE (Case [id number] COMPLETE) ELBOW LEFT 2 VIEWS (RAD Detailed) CPT:66903 Proc Modifiers : PORTABLE EXAM, OPERATING ROOM EXAM Reason for Study: post-op Clinical History: post-op Report Status: Verified Date Reported: JULY 18, 2022 Date Verified: JULY 18, 2022 [employer] E-Sig:/ES/JAKUB LEE MD Report: EXAM: ELBOW LEFT [...] Primary Interpreting Staff: JAKUB LEE MD, RADIOLOGIST (Bill Checker) /[facility] JAKUB LEE [facility] July 18, 2022 07:30 AM FLUORO UP TO 1 HR PHYSICIAN TIME: MARYJO WAGNER [id number] -1950 M Exm Date: JULY 18, 2022@07:30 Req Phys: LEIF BALBUENA Loc: OR-PACU/07-18-2022@13:14 Img Loc: MAIN X-RAY Service: PRIMARY CARE - MED OFFICE (Case [id number] COMPLETE) FLUORO UP TO 1 HR PHYSICIAN TIME (RAD Detailed) CPT:22410 Proc Modifiers : PORTABLE EXAM, OPERATING ROOM EXAM, LEFT Reason for Study: Left distal humerous ORIF Clinical History: OR 7 Pathologic distal humeral shaft fracture Responsible provider name and phone number to notify for critical findings if other than user placing the order and pager listed below: User placing orders pager: Henry BALBUENA [phone] LAST CREATININE 0.8 (07/17/22) Report Status: Electronically Filed Date Reported: JULY 18, 2022 Report: Impression: Please see the full report for this procedure in CPRS patient progress notes. Fluoro guidance was provided during this procedure, but the study was not reviewed or verified by a [facility] radiologist. The radiation exposure dose has been recorded in the patient's chart. If you are unable to view this data, please contact the Imaging Department. VERIFIED BY: / *ELECTRONICALLY FILED* [facility] July 17, 2022 03:28 PM ABDOMINAL AORTOGRAM (P): MARYJO WAGNER [id number] -1950 M Exm Date: JULY 17, 2022@15:28 Req Phys: MALCOM LANGLEY Loc: /07-17-2022@15:54 Img Loc: INTERVENTIONAL RADIOLOGY Service: PRIMARY CARE - MED OFFICE (Case [id number] COMPLETE) ANGIOGRAPHY EXTREMITY UNILAT S&I (ANI Detailed) CPT:87516 Reason for Study: codes (Case 528 COMPLETE) IR AORTOGRAPHY ABDOMINAL W/O RUNO(ANI Detailed) CPT:11188 (Case 529 COMPLETE) IR FOREIGN BODY REMOVAL INTRAVASC(ANI Detailed) CPT:61865 (Case 532 COMPLETE) IR NEEDLE/INTRACATH PLACEMENT EXT(ANI Detailed) CPT:86115 (Case 533 COMPLETE) IR PLACEMENT OCCLUSIVE DEVICE SAM(ANI Detailed) CPT:G0269 Clinical History: codes Report Status: Verified Date Reported: JULY 17, 2022 Date Verified: JULY 17, 2022 Bill Checker E-Sig:/ES/MALCOM LANGLEY MD Report: RADIOLOGIST: Malcom Langley [...] angiogram and runoff. 12. Closure of right GLASS EMBOSSER with Angio-Seal device. HISTORY: Metastatic renal cell [...] Sheath removed over guidewire and a 5 japanese vascular sheath advanced over guidewire into the artery. An H1 catheter was advanced along with the guidewire into the thoracic arch and the left subclavian artery was selected. Catheter and the guidewire were advanced into the left brachial artery. The 5 Dominican sheath was exchanged for a 6 Dominican sheath that was advanced into the left [...] arteries. Sheath and catheters were removed and GLASS EMBOSSER arteriotomy was closed using Angioseal. There is patent hemostasis. No bleeding or hematoma noted. Sterile dressing applied. 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 Primary Interpreting Staff: MALCOM LANGLEY MD, INTERVENTIONAL RADIOLOGIST (Bill Checker) /MALCOM HE [facility] July 17, 2022 07:30 AM RENAL ARTERY EMBOLIZATION (P): MARYJO WAGNER [id number] -1950 M Exm Date: JULY 17, 2022@07:30 Req Phys: WESTON VASQUEZ [facility] Loc: 07-17-2022@15:46 Img Loc: INTERVENTIONAL RADIOLOGY Service: PRIMARY CARE - MED OFFICE (Case 130 COMPLETE) IR TRANSCATH EMBOLIZATION W/ANGIO(ANI Detailed) CPT:84508 Reason for Study: embolization of RCC mets to left humerus (Case 131 COMPLETE) IR ARTERIAL EMBOLIZATION OTHER TH(ANI Detailed) CPT:62582 (Case 132 COMPLETE) IR US GUIDANCE VASCULAR ACCESS (ANI Detailed) CPT:65353 Clinical History: [place] IS NOT under investigation for COVID-19 or [...] pager listed below: User placing orders pager: [phone] LAST CREATININE 1.0 (07/13/22) Report Status: Verified Date Reported: JULY 17, 2022 Date Verified: JULY 17, 2022 Bill Checker E-Sig:/ES/MALCOM LANGLEY MD Report: RADIOLOGIST: Malcom Langley [...] angiogram and runoff. 12. Closure of right GLASS EMBOSSER with Angio-Seal device. HISTORY: Metastatic renal cell [...] Sheath removed over guidewire and a 5 japanese vascular sheath advanced over guidewire into the artery. An H1 catheter was advanced along with the guidewire into the thoracic arch and the left subclavian artery was selected. Catheter and the guidewire were advanced into the left brachial artery. The 5 Dominican sheath was exchanged for a 6 Dominican sheath that was advanced into the left [...] arteries. Sheath and catheters were removed and GLASS EMBOSSER arteriotomy was closed using Angioseal. There is patent hemostasis. No bleeding or hematoma noted. Sterile dressing applied. 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 Primary Interpreting Staff: MALCOM LANGLEY MD, INTERVENTIONAL RADIOLOGIST (Bill Checker) /MALCOM HE [facility] July 14, 2022 06:44 AM HUMERUS LEFT MINIMUM 2 VIEWS: MARYJO WAGNER [id number] -1950 M Exm Date: JULY 14, 2022@06:44 Req Phys: WESTON VASQUEZ Pat Loc: 07-14-2022@07:13 Img Loc: MAIN X-RAY Service: PRIMARY CARE - MED OFFICE (Case [id number] COMPLETE) HUMERUS LEFT MINIMUM 2 VIEWS (RAD Detailed) CPT:40761 Reason for Study: post reduction Clinical History: Report Status: Verified Date Reported: JULY 14, 2022 Date Verified: JULY 14, 2022 Bill Checker E-Sig: Report: HUMERUS LEFT MINIMUM 2 VIEWS [...] less likely. READING PHYSICIAN: Xavier Merrill MD -[id number] 07/14/2022 5:11 PDT [facility] National Teleradiology Program [phone] (For Medical Practitioner Use Only) Attention Patients / Veterans: If you have questions or concerns about these test results, please contact your ordering provider or primary care team. Primary Interpreting Staff: RADIOLOGY,OUTSIDE SERVICE, Staff Physician / RADIOLOGY,OUTSIDE SERVICE [facility] July 13, 2022 10:07 AM ELBOW LEFT 3 OR MORE VIEWS: MARYJO WAGNER [id number] -1950 M Exm Date: JULY 13, 2022@10:07 Req Phys: WHITNEY ANDERSON Loc: [facility] EMERGENCY DEPT WALK-IN (Re Img Loc: MAIN X-RAY Service: Unknown (Case [id number] COMPLETE) ELBOW LEFT 3 OR MORE VIEWS (RAD Detailed) CPT:40585 Proc Modifiers : LEFT Reason for Study: [...] pager listed below: User placing orders pager: [phone] LAST CREATININE 0.8 (05/10/22) Report Status: Verified Date Reported: JULY 13, 2022 Date Verified: JULY 13, 2022 Bill Checker E-Sig:/ES/ALBINA COWAN MD, FACR, CCD Report: EXAMINATION: [...] Staff: ALBINA COWAN MD, FACR, STAFF RADIOLOGIST (Bill Checker) /[facility] ALBINA COWAN [facility] July 13, 2022 10:07 AM HUMERUS LEFT MINIMUM 2 VIEWS: MARYJO WAGNER [id number] -1950 M Exm Date: JULY 13, 2022@10:07 Req Phys: WHITNEY ANDERSON Loc: [facility] EMERGENCY DEPT WALK-IN (Re Img Loc: MAIN X-RAY Service: Unknown (Case [id number] COMPLETE) HUMERUS LEFT MINIMUM 2 VIEWS (RAD Detailed) CPT:24999 Proc Modifiers : LEFT Reason for Study: L arm pain Clinical History: [place] IS NOT under investigation for COVID-19 or is COVID-19 negative Atraumatic left upper extremity pain that is located midshaft humerus distally to the mid forearm. Clinical concern for dislocation versus fracture versus bone mets Responsible provider name and phone number to notify for critical findings if other than user placing the order and pager listed below: User placing orders pager: [phone] LAST CREATININE 0.8 (05/10/22) Report Status: Verified Date Reported: JULY 13, 2022 Date Verified: JULY 13, 2022 Bill Checker E-Sig:/ES/ALBINA COWAN MD, FACR, CCD Report: EXAMINATION: [...] Staff: ALBINA COWAN MD, FACR, STAFF RADIOLOGIST (Bill Checker) /[facility] ALBINA COWAN [facility] July 13, 2022 10:07 AM FOREARM LEFT 2 VIEWS: MARYJO WAGNER [id number] -1950 M Exm Date: JULY 13, 2022@10:07 Req Phys: WHITNEY ANDERSON Pat Loc: [facility] EMERGENCY DEPT WALK-IN (Re Img Loc: MAIN X-RAY Service: Unknown (Case [id number] COMPLETE) FOREARM LEFT 2 VIEWS (RAD Detailed) CPT:24873 Proc Modifiers : LEFT Reason for Study: [...] pager listed below: User placing orders pager: [phone] LAST CREATININE 0.8 (05/10/22) Report Status: Verified Date Reported: JULY 13, 2022 Date Verified: JULY 13, 2022 Bill Checker E-Sig:/ES/ALBINA COWAN MD, FACR, CCD Report: EXAMINATION: [...] Staff: ALBINA COWAN MD, FACR, STAFF RADIOLOGIST (Bill Checker) /[facility] ALBINA COWAN [facility] Pathology Reports: +/- 30 [...] URGENCY: STATUS: COMPLETED $APHDR Reporting Lab: [facility] [CLIA# [id number]] [place] [address] - - - - - - - [...] - - - - $TEXT Submitted by: FARZAD,LEIF Date obtained: July 18, 2022 - - [...] Laboratory: Surgical Pathology Report Performed By: [facility] [CLIA# [id number]] [place] [address] $FTR - - - - - - [...] - - MARYJO WAGNER STANDARD FORM 515 ID:[id number] SEX:M :1950 AGE: 72 LOC:[facility] PATHOLOGY PRO FEE ADM:June DX:PATHOLOGIC FX LF HUMERUS PCP: Leif Balbuena MD /sangita/ JIAN SANDOVAL STAFF PATHOLOGIST, PATHOLOGY & LABORATORY [facility] Signed: 07/21/2022 14:37 JIAN SANDOVAL [facility] Encounter Notes: All associated encounter notes This section contains the clinical notes associated to the Encounter. Date/Time Encounter Note(s) Provider Source July 19, 2022 10:10 AM ANESTHESIOLOGY NOT E: LOCAL TITLE: ANESTHESIA PROGRESS NOTE STANDARD TITLE: ANESTHESIOLOGY NOTE DATE OF NOTE: JULY 19, 2022@10:10 ENTRY DATE: JULY 19, 2022@10:33:55 AUTHOR: MARIANO CAAL EXP COSIGNER: URGENCY: STATUS: COMPLETED Acute Regional Anesthesia Pain Service Note JULY 19, 2022 Subjective/Events in the last 24 hours: Denies paresthesia, tinnitus, and dysgeusia. Pain controlled on po meds and ropivacaine infusion through left infraclavicular brachial plexus block. + ad candelario OOB to chair/ambulation. Current pain: 0/10 Average pain over the last 24 hours: 5/10 Worst pain over the last 24 hours: 9/10 Vitals: Temp: 98.6 F [37.0 C] (07/19/2022 07:54) BP: 113/70 (07/19/2022 07:54) Pulse: 67 (07/19/2022 07:54) SpO2: 91% (07/19/2022 07:54) RR: 20 (07/19/2022 07:54) Exam: Awake, alert, no acute distress Left infraclavicular brachial plexus catheter connections intact, unclamped, infusing at 10 ml/hr, dressing c/d/i, no signs of infection. OnQ with 48+ hours remaining Patient on enoxaparin 30 mg q 12 hrs, last dose today at 08:57 Labs: PLT 155 (07/19/22) INR 1.0 (07/17/22) A/P MARYJO WAGNER is POD 1 s/p left pathologic distal humerus fracture ORIF, with tumor excision and cement augmentation. Patient had left infraclavicular brachial plexus block and catheter placed post-op in PACU. Pain well controlled since last night. No signs of local anesthetic toxicity. No signs of bleeding or infection. Will continue with ropivacaine infusion at current settings. Will continue to follow up. Please call anesthesia service if any questions. /sangita/ MARIANO CAAL MDA ANESTHESIOLOGIST Signed: 07/19/2022 10:48 MARIANO CAAL [facility]
--- OUTSIDE RECORDS SUMMARY | 2023-03-24 08:44 | XMS_ITS | Encounter Summary ---
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 Organization [facility] of [facility] Address [address] [place] [address] Support Name Relationship Address Phone DOREEN WAGNER Next of Kin [address] [place] [phone] DOREEN Emergency Contact [address] [place] [phone] Insurance Providers: All historical and current [...] Name Patient's Relationship to Policy Casey HUMANA [facility] (WNR) MEDICARE [facility] ([facility]) June 26, 2016 [id number] CARSONJOAN ROWELL PATIENT HUMANA MCR (WNR) MEDICARE ADVANTAGE [facility] ([facility]) June 26, 2016 [id number] [phone] JOAN WAGNER KARSTEN PATIENT HUMANA MCR (WNR) MEDICARE ADVANTAGE [facility] (R) June 26, 2016 [id number] JOAN WAGNER KARSTEN PATIENT Selected Encounter This section includes the information on record at PA for the Encounter. Date/Time Encounter Type Encounter Description Reason Pro vider Source July 18, 2022 04:38 PM Inpatient Visit ADMIN [employer] (Proven[employer]) SYSTEM,CIS-ARK IHE Encounter Template Text not used [...] 20 appointments. The data comes from all [facility]. Appointment Date/Time Appointment Type Appointme nt Facility Name Jul 28, 2022 10:45 AM AM[facility]UL[facility] Aug 13, 2022 06:13 PM [facility] Aug 23, 2022 09:30 AM AMBULATORY - SURGERY [facility] Aug 23, 2022 09:45 AM AMBULATORY - NONE [facility] Aug 23, 2022 10:30 AM AMBULATORY - MEDICINE [facility] Aug 23, 2022 10:31 AM AMBULATORY - MEDICINE [facility] Sep 06, 2022 10:15 AM AMBULATORY - SURGERY [facility] Oct 25, 2022 07:00 AM [facility] Oct 25, 2022 07:30 AM AMBULATORY - SURGERY [facility] Oct 25, 2022 09:00 AM AMBULATORY - SURGERY [facility] Active, Pending, and Scheduled Orders This section includes a listing of several types of active, pending, and scheduled orders, including clinic medications orders, diagnostic test orders, procedure orders and consult orders; where the start date of the order is 45 days before the date of the Encounter or 45 days after the date of theEncounter. The data comes from all [facility]. Test Date/Time Test Type Test Details Facility Name Jun 12, 2022 12:00 AM Laboratory - Chemistry Order CBC & DIFF BLOOD ONCO SP ONCE [facility] Jun 12, 2022 12:00 AM Laboratory - Chemistry Order COMPREHENSIVE METABOLIC PANEL+MG PLASMA ONCO SP ONCE [facility] Jun 12, 2022 12:00 AM Laboratory - Chemistry Order TSH W/REFLEX TO FREE T4 PLASMA ONCO SP ONCE [facility] July 14, 2022 12:00 AM Laboratory - Blood Bank Order ABO/RH - LAB BLOOD [facility] July 14, 2022 02:05 PM Laboratory - Blood Bank Order TYPE & SCREEN - LAB BLOOD [facility] Aug 07, 2022 11:23 AM Laboratory - Chemistry Order DRUG SCREEN PANEL,URINE URINE ONCE [facility] Aug 23, 2022 10:47 AM Laboratory - Chemistry Order URINALYSIS URINE ER STAT WC [facility] Lab Results: +/- [...] Range Comment July 19, 2022 04:40 PM [facility] FINGERSTICK GLUCOSE Specimen Type: BLOOD Comment: Save Result Nurse Notified Ordering Provider: MACKENZIE COTTER Report Released Date/Time: July 19, 2022 05:00 PM Reporting Lab: [facility] [id number] Performing Lab: [facility] [address] FINGERSTICK GLUCOSE 132 70-100 July 19, 2022 07:13 AM [facility] COMPREHENSIVE METABOLIC PANEL+MG Specimen Type: PLASMA No comment entered. Ordering Provider: MACKENZIE COTTER Report Released Date/Time: July 18, 2022 05:40 PM Reporting Lab: [facility] [address] Performing Lab: [facility] [address] CREATININE 0.9 0.7-1.2 UREA NITROGEN 24 8-26 [...] See_Commen t July 19, 2022 07:13 AM [facility] IRON GROUP Specimen Type: SERUM No comment entered. Ordering Provider: MACKENZIE COTTER Report Released Date/Time: July 18, 2022 05:40 PM Reporting Lab: [facility] [address] Performing Lab: [facility] [address] IRON 28 L 65-175 TIBC,CALCULATE D 223 L 250-425 FERRITIN 73.7 21.8-274.7 IRON SATURATION 13 L 20-50 TRANSFERRIN 178 163-382 July 19, 2022 07:13 AM [facility] CBC Specimen Type: BLOOD No comment entered. Ordering Provider: MACKENZIE COTTER Report Released Date/Time: July 18, 2022 05:40 PM Reporting Lab: [facility] [address] Performing Lab: [facility] [address] WBC 7.73 4.0-11.0 RBC 2.42 L 4.6-6.2 HGB 8.2 L 13.5-17.9 HCT 23.8 L 41-54 MCV 98.3 80-100 MCH 33.9 H 27-33 MCHC 34.5 32.0-37.5 PLT 155 150-400 MPV 9.6 7.4-10.4 RDW 13.5 11.5-14.5 July 19, 2022 05:44 AM [facility] FINGERSTICK GLUCOSE Specimen Type: BLOOD Comment: Save Result Nurse Notified Ordering Provider: MACKENZIE COTTER Report Released Date/Time: July 19, 2022 11:54 AM Reporting Lab: [facility] [address] Performing Lab: [facility] [address] FINGERSTICK GLUCOSE 137 70-100 July 18, 2022 10:51 PM [facility] FINGERSTICK GLUCOSE Specimen Type: BLOOD Comment: Save Result Nurse Notified Ordering Provider: MACKENZIE COTTER Report Released Date/Time: July 18, 2022 11:06 PM Reporting Lab: [facility] [address] Performing Lab: [facility] [address] FINGERSTICK GLUCOSE 163 70-100 July 17, 2022 06:51 AM [facility] BASIC METABOLIC PANEL+MG Specimen Type: PLASMA No comment entered. Ordering Provider: DANG VALLE Report Released Date/Time: July 16, 2022 09:37 AM Reporting Lab: [facility] [address] Performing Lab: [facility] [address] CREATININE 0.8 0.7-1.2 UREA NITROGEN 23 8-26 GLUCOSE 107 H 70-100 SODIUM 139 136-145 POTASSIUM 3.9 3.5-5.1 CHLORIDE 106 98-107 CO2 28 22-29 CALCIUM 9.1 8.4-10.2 MAGNESIUM 1.9 1.6-2.6 ANION GAP 5 5-15 .CREAT EGFR(CKD-EPI) >90 See_Commen t July 17, 2022 06:51 AM [facility] PROTHROMBIN TIME/INR Specimen Type: PLASMA No comment entered. Ordering Provider: DANG VALLE R Report Released Date/Time: July 16, 2022 09:37 AM Reporting Lab: [facility] [address] Performing Lab: [facility] [address] .INR 1.0 0.8-1.1 .PT 11.5 9.4-12.5 July 17, 2022 06:51 AM [facility] CBC Specimen Type: BLOOD No comment entered. Ordering Provider: DANG VALLE R Report Released Date/Time: July 16, 2022 09:37 AM Reporting Lab: [facility] [address] Performing Lab: [facility] [address] WBC 6.05 4.0-11.0 RBC 3.77 L 4.6-6.2 HGB 12.7 L 13.5-17.9 HCT 36.0 L 41-54 MCV 95.5 80-100 MCH 33.7 H 27-33 MCHC 35.3 32.0-37.5 PLT 179 150-400 MPV 9.4 7.4-10.4 RDW 13.2 11.5-14.5 July 13, 2022 11:22 AM [facility] COVID-19 AND FLU/RSV DIAG PANEL(CEPHEID) Specimen Typ e: NASOPHARYNGEAL Comment: Cepheid GeneXpert (618) Ordering Provider: WHITNEY ANDERSON Report Released Date/Time: July 13, 2022 11:04 AM Reporting Lab: [facility] [address] Performing Lab: [facility] [address] COVID-19 (CEPHEID) Not Detected Not Detected INFLUENZA A (PCR) Not Detected Not Detected INFLUENZA B (PCR) Not Detected Not Detected RSV (PCR) Not Detected Not Detected July 13, 2022 11:00 AM [facility] C-REACTIVE PROTEIN Specimen Type: SERUM Comment: Automated Differential Performed Ordering Provider: WHITNEY ANDERSON Report Released Date/Time: July 13, 2022 11:04 AM Reporting Lab: [facility] [address] Performing Lab: [facility] [address] C-REACTIVE PROTEIN 1.17 <5.00 July 13, 2022 11:00 AM [facility] PROTHROMBIN TIME/INR Specimen Type: PLASMA No comment entered. Ordering Provider: WHITNEY ANDERSON Report Released Date/Time: July 13, 2022 11:04 AM Reporting Lab: [facility] [address] Performing Lab: [facility] [address] .INR 0.9 0.8-1.1 .PT 11.1 9.4-12.5 July 13, 2022 11:00 AM [facility] SED RATE Specimen Type: BLOOD No comment entered. Ordering Provider: WHITNEY ANDERSON Report Released Date/Time: July 13, 2022 11:04 AM Reporting Lab: [facility] [address] Performing Lab: [facility] [address] SED RATE 10 5-15 July 13, 2022 11:00 AM [facility] CBC & DIFF Specimen Type: BLOOD Comment: Automated Differential Performed Ordering Provider: WHITNEY ANDERSON Report Released Date/Time: July 13, 2022 11:04 AM Reporting Lab: [facility] [address] Performing Lab: [facility] [address] WBC 8.82 4.0-11.0 RBC 3.89 L 4.6-6.2 [...] 0.03 0-0.1 July 13, 2022 11:00 AM [facility] COMPREHENSIVE METABOLIC PANEL+MG Specimen Type: PLASMA Comment: Automated Differential Performed Ordering Provider: WHITNEY ANDERSON Report Released Date/Time: July 13, 2022 11:04 AM Reporting Lab: [facility] [address] Performing Lab: [facility] [address] CREATININE 1.0 0.7-1.2 UREA NITROGEN 16 8-26 [...] July 18, 2022 11:14 PM 9 [facility] July 18, 2022 11:14 PM 9 [facility] July 18, 2022 10:53 PM 98.6 F 68 /min 114/73 mm[Hg] 18 /min 95 % 8 [facility] July 18, 2022 09:30 PM 8 [facility] July 18, 2022 08:59 PM 9 [facility] Social History: Smoking [...] Facil ity May 10, 2022 09:15 AM PA-TOBACCO QUIT 15 YRS OR MORE [facility] Tobacco Use History [...] MEDICAL CENTER May 11, 2021 09:15 AM PA-TOBACCO QUIT [facility] YRS [facility] MORE [facility] [...] comes from all [facility]. Date Advance Directives Provider Source Mar [...] 07:50 AM CHEST 1 VIEW: MARYJO WAGNER [id number] -1950 M Exm Date: JULY 20, 2022@07:50 Req Phys: MACKENZIE COTTER Pat Loc: 07-20-2022@08:26 Img Loc: MAIN X-RAY Service: PRIMARY CARE - MED OFFICE (Case [id number] COMPLETE) CHEST 1 VIEW (RAD Detailed) CPT:19644 Proc Modifiers : PORTABLE EXAM Reason for Study: see below. thanks. Clinical History: [place] IS NOT under investigation for COVID-19 or is COVID-19 negative Please further evaluate for acute airspace disease given o2 requirement. Thanks. Responsible provider name and phone number to notify for critical findings if other than user placing the order and pager listed below: User placing orders pager: [phone] same LAST CREATININE 0.9 (07/19/22) Report Status: Verified Date Reported: JULY 20, 2022 Date Verified: JULY 20, 2022 Political Aide E-Sig:/ES/JAMIE MIGUEL MD Report: EXAM: CHEST 1 [...] pager listed below: User placing orders pager: [phone] same LAST CREATININE 0. COMPARISON: Chest CT [...] Primary Interpreting Staff: JAMIE MIGUEL MD, RADIOLOGIST (Political Aide) /JAMIE FRANCES [facility] July 18, 2022 12:59 PM ELBOW LEFT 2 VIEWS: MARYJO AWGNER [id number] -1950 M Exm Date: JULY 18, 2022@12:59 Req Phys: LEIF BALBUENA Loc: OR-PACU/07-18-2022@13:59 Img Loc: MAIN X-RAY Service: [facility]SURGICAL SERVICE (Case [id number] COMPLETE) ELBOW LEFT 2 VIEWS (RAD Detailed) CPT:21726 Proc Modifiers : PORTABLE EXAM, OPERATING ROOM EXAM Reason for Study: post-op Clinical History: post-op Report Status: Verified Date Reported: JULY 18, 2022 Date Verified: JULY 18, 2022 Political Aide E-Sig:/ES/JAKUB LEE MD Report: EXAM: ELBOW LEFT [...] Primary Interpreting Staff: JAKUB LEE MD, RADIOLOGIST (Political Aide) /[facility] JAKUB LEE [facility] July 18, 2022 07:30 AM FLUORO UP TO 1 HR PHYSICIAN TIME: MARYJO WAGNER [id number] -1950 M Exm Date: JULY 18, 2022@07:30 Req Phys: LEIF BALBUENA Loc: OR-PACU/07-18-2022@13:14 Img Loc: MAIN X-RAY Service: PRIMARY CARE - MED OFFICE (Case [id number] COMPLETE) FLUORO UP TO 1 HR PHYSICIAN TIME (RAD Detailed) CPT:14113 Proc Modifiers : PORTABLE EXAM, OPERATING ROOM EXAM, LEFT Reason for Study: Left distal humerous ORIF Clinical History: OR 7 Pathologic distal humeral shaft fracture Responsible provider name and phone number to notify for critical findings if other than user placing the order and pager listed below: User placing orders pager: Henry BALBUENA [phone] LAST CREATININE 0.8 (07/17/22) Report Status: Electronically Filed Date Reported: JULY 18, 2022 Report: Impression: Please see the full report for this procedure in CPRS patient progress notes. Fluoro guidance was provided during this procedure, but the study was not reviewed or verified by a [facility] radiologist. The radiation exposure dose has been recorded in the patient's chart. If you are unable to view this data, please contact the Imaging Department. VERIFIED BY: / *ELECTRONICALLY FILED* [facility] July 17, 2022 03:28 PM ABDOMINAL AORTOGRAM (P): MARYJO WAGNER [id number] -1950 M Exm Date: JULY 17, 2022@15:28 Req Phys: MALCOM LANGLEY [facility] Loc: 07-17-2022@15:54 Img Loc: INTERVENTIONAL RADIOLOGY Service: PRIMARY CARE - MED OFFICE (Case [id number] COMPLETE) ANGIOGRAPHY EXTREMITY UNILAT S&I (ANI Detailed) CPT:76540 Reason for Study: codes (Case 528 COMPLETE) IR AORTOGRAPHY ABDOMINAL W/O RUNO(ANI Detailed) CPT:32687 (Case 529 COMPLETE) IR FOREIGN BODY REMOVAL INTRAVASC(ANI Detailed) CPT:72077 (Case 532 COMPLETE) IR NEEDLE/INTRACATH PLACEMENT EXT(ANI Detailed) CPT:66761 (Case 533 COMPLETE) IR PLACEMENT OCCLUSIVE DEVICE SAM(ANI Detailed) CPT:G0269 Clinical History: codes Report Status: Verified Date Reported: JULY 17, 2022 Date Verified: JULY 17, 2022 Political Aide E-Sig:/ES/MALCOM LANGLEY MD Report: RADIOLOGIST: Malcom Langley [...] angiogram and runoff. 12. Closure of right EMPLOYMENT AND CLAIMS AIDE with Angio-Seal device. HISTORY: Metastatic renal cell [...] Sheath removed over guidewire and a 5 azerbaijani vascular sheath advanced over guidewire into the artery. An H1 catheter was advanced along with the guidewire into the thoracic arch and the left subclavian artery was selected. Catheter and the guidewire were advanced into the left brachial artery. The 5 Mauritian sheath was exchanged for a 6 Mauritian sheath that was advanced into the left [...] arteries. Sheath and catheters were removed and EMPLOYMENT AND CLAIMS AIDE arteriotomy was closed using Angioseal. There is patent hemostasis. No bleeding or hematoma noted. Sterile dressing applied. 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 Primary Interpreting Staff: MALCOM LANGLEY MD, INTERVENTIONAL RADIOLOGIST (Political Aide) /MALCOM HE [facility] July 17, 2022 07:30 AM RENAL ARTERY EMBOLIZATION (P): MARYJO WAGNER [id number] -1950 M Exm Date: JULY 17, 2022@07:30 Req Phys: WESTON VASQUEZ Pat Loc: 07-17-2022@15:46 Img Loc: INTERVENTIONAL RADIOLOGY Service: PRIMARY CARE - MED OFFICE (Case 130 COMPLETE) IR TRANSCATH EMBOLIZATION W/ANGIO(ANI Detailed) CPT:32351 Reason for Study: embolization of RCC mets to left humerus (Case 131 COMPLETE) IR ARTERIAL EMBOLIZATION OTHER TH(ANI Detailed) CPT:25712 (Case 132 COMPLETE) IR US GUIDANCE VASCULAR ACCESS (ANI Detailed) CPT:95283 Clinical History: [place] IS NOT under investigation for COVID-19 or [...] pager listed below: User placing orders pager: [phone] LAST CREATININE 1.0 (07/13/22) Report Status: Verified Date Reported: JULY 17, 2022 Date Verified: JULY 17, 2022 Political Aide E-Sig:/ES/MALCOM LANGLEY MD Report: RADIOLOGIST: Malcom Langley [...] angiogram and runoff. 12. Closure of right EMPLOYMENT AND CLAIMS AIDE with Angio-Seal device. HISTORY: Metastatic renal cell [...] Sheath removed over guidewire and a 5 azerbaijani vascular sheath advanced over guidewire into the artery. An H1 catheter was advanced along with the guidewire into the thoracic arch and the left subclavian artery was selected. Catheter and the guidewire were advanced into the left brachial artery. The 5 Mauritian sheath was exchanged for a 6 Mauritian sheath that was advanced into the left [...] arteries. Sheath and catheters were removed and EMPLOYMENT AND CLAIMS AIDE arteriotomy was closed using Angioseal. There is patent hemostasis. No bleeding or hematoma noted. Sterile dressing applied. 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 Primary Interpreting Staff: MALCOM LANGLEY MD, INTERVENTIONAL RADIOLOGIST (Political Aide) /MALCOM HE [facility] July 14, 2022 06:44 AM HUMERUS LEFT MINIMUM 2 VIEWS: MARYJO WAGNER [id number] -1950 M Exm Date: JULY 14, 2022@06:44 Req Phys: WESTON VASQUEZ [facility] Loc: 07-14-2022@07:13 Img Loc: MAIN X-RAY Service: PRIMARY CARE - MED OFFICE (Case [id number] COMPLETE) HUMERUS LEFT MINIMUM 2 VIEWS (RAD Detailed) CPT:65294 Reason for Study: post reduction Clinical History: Report Status: Verified Date Reported: JULY 14, 2022 Date Verified: JULY 14, 2022 Political Aide E-Sig: Report: HUMERUS LEFT MINIMUM 2 VIEWS [...] less likely. READING PHYSICIAN: Xavier Merrill MD -[phone] 07/14/2022 5:11 PDT [facility] National Teleradiology Program [phone] (For Medical Practitioner Use Only) Attention Patients / Veterans: If you have questions or concerns about these test results, please contact your ordering provider or primary care team. Primary Interpreting Staff: RADIOLOGY,OUTSIDE SERVICE, Staff Physician / RADIOLOGY,OUTSIDE SERVICE [facility] July 13, 2022 10:07 AM HUMERUS LEFT MINIMUM 2 VIEWS: MARYJO WAGNER [id number] -1950 M Ex Date: JULY 13, 2022@10:07 Req Phys: WHITNEY ANDERSON Pat Loc: [facility] EMERGENCY DEPT WALK-IN (Re Img Loc: MAIN X-RAY Service: Unknown (Case [id number] COMPLETE) HUMERUS LEFT MINIMUM 2 VIEWS (RAD Detailed) CPT:16612 Proc Modifiers : LEFT Reason for Study: L arm pain Clinical History: [place] IS NOT under investigation for COVID-19 or is COVID-19 negative Atraumatic left upper extremity pain that is located midshaft humerus distally to the mid forearm. Clinical concern for dislocation versus fracture versus bone mets Responsible provider name and phone number to notify for critical findings if other than user placing the order and pager listed below: User placing orders pager: [phone] LAST CREATININE 0.8 (05/10/22) Report Status: Verified Date Reported: JULY 13, 2022 Date Verified: JULY 13, 2022 Political Aide E-Sig:/SANGITA/ALBINA COWAN MD, FACR, CCD Report: EXAMINATION: [...] Staff: ALBINA COWAN MD, FACR, STAFF RADIOLOGIST (Political Aide) /[facility] ALBINA COWAN [facility] July 13, 2022 10:07 AM ELBOW LEFT 3 OR MORE VIEWS: CARSONMARYJO ROWELL [id number] -1950 M Exm Date: JULY 13, 2022@10:07 Req Phys: WHITNEY ANDERSON Pat Loc: [facility] EMERGENCY DEPT WALK-IN (Re Img Loc: MAIN X-RAY Service: Unknown (Case [id number] COMPLETE) ELBOW LEFT 3 OR MORE VIEWS (RAD Detailed) CPT:73900 Proc Modifiers : LEFT Reason for Study: [...] pager listed below: User placing orders pager: [phone] LAST CREATININE 0.8 (05/10/22) Report Status: Verified Date Reported: JULY 13, 2022 Date Verified: JULY 13, 2022 Political Aide E-Sig:/SANGITA/ALBINA COWAN MD, FACR, CCD Report: EXAMINATION: [...] Staff: ALBINA COWAN MD, FACR, STAFF RADIOLOGIST (Political Aide) /ALBINA NATHAN [facility] July 13, 2022 10:07 AM FOREARM LEFT 2 VIEWS: MARYJO WAGNER [id number] -1950 M Exm Date: JULY 13, 2022@10:07 Req Phys: WHITNEY ANDERSON Pat Loc: [facility] EMERGENCY DEPT WALK-IN (Re Img Loc: MAIN X-RAY Service: Unknown (Case [id number] COMPLETE) FOREARM LEFT 2 VIEWS (RAD Detailed) CPT:31871 Proc Modifiers : LEFT Reason for Study: L arm pain Clinical History: [place] IS NOT under investigation for COVID-19 or is COVID-19 negative Atraumatic left upper extremity pain that is located midshaft humerus distally to the mid forearm. Clinical concern for dislocation versus fracture versus bone mets Responsible provider name and phone number to notify for critical findings if other than user placing the order and pager listed below: User placing orders pager: [phone] LAST CREATININE 0.8 (05/10/22) Report Status: Verified Date Reported: JULY 13, 2022 Date Verified: JULY 13, 2022 Political Aide E-Sig:/ES/ALBINA COWAN MD, FACR, CCD Report: EXAMINATION: [...] Staff: ALBINA COWAN MD, FACR, STAFF RADIOLOGIST (Political Aide) /ALBINA NATHAN [facility] Pathology Reports: +/- 30 days [...] COSIGNER: URGENCY: STATUS: COMPLETED $APHDR Reporting Lab: [facility] [CLIA# [id number]] [place] [address] - - - - - - - [...] SANDOVAL STAFF PATHOLOGIST, PATHOLOGY & LABORATORY MED [facility] Signed July 21, 2022@14:37 Performing Laboratory: Surgical Pathology Report Performed By: [facility] [CLIA# [id number]] [place] [address] $FTR - - - - - - - - - - - - - - - - - - - - - - - - - - - - - - - - - - - - - - - - (End of report) JIAN SANDOVAL MD [facility] Date July 21, 2022 - - - - - - - - - - - - - - - - - - - - - - - - - - - - - - - - - - - - - - - - MARYJO WAGNER STANDARD FORM 515 ID:[id number] SEX:M :1950 AGE: 72 LOC:[facility] PATHOLOGY PRO FEE ADM:June DX:PATHOLOGIC FX LF HUMERUS PCP: Leif Balbuena MD /sangita/ JIAN SANDOVAL STAFF PATHOLOGIST, PATHOLOGY & LABORATORY MED [facility] Signed: 07/21/2022 14:37 JIAN SANDOVAL [facility] Encounter Notes: All associated encounter notes This section contains the clinical notes associated to the Encounter. Date/Time Encounter Note(s) Provider Source July 18, 2022 04:38 PM CRITICAL CARE UNIT NOTE: LOCAL TITLE: ICCA INPATIENT FLOWSHEET STANDARD TITLE: CRITICAL CARE UNIT NOTE DATE OF NOTE: JULY 18, 2022@16:38 ENTRY DATE: JULY 19, 2022@14:43:56 AUTHOR: JAZ,SHARRI EXP COSIGNER: URGENCY: STATUS: COMPLETED This is a place casey only. Please see The Daily Voice to view document. /es/ [email or web address] SYSTEM ICU DOCUMENT IMPORT Signed: 07/19/2022 14:43 SYSTEM,[employer] [facility] July 18, 2022 04:38 PM CRITICAL CARE UNIT NOTE: LOCAL TITLE: ICCA RESPIRATORY THERAPY FLOWSHEET STANDARD TITLE: CRITICAL CARE UNIT NOTE DATE OF NOTE: JULY 18, 2022@16:38 ENTRY DATE: JULY 19, 2022@15:14:22 AUTHOR: SYSTEM,[employer] EXP COSIGNER: URGENCY: STATUS: COMPLETED This is a place casey only. Please see The Daily Voice to view document. /es/ [email or web address] SYSTEM ICU DOCUMENT IMPORT Signed: 07/19/2022 15:14 SYSTEM,CIS-ARK [facility]
--- OUTSIDE RECORDS SUMMARY | 2023-03-24 08:44 | XMS_ITS | Encounter Summary ---
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 of Vetera Man [facility] Address [address] [place] [address] Support Name Relationship Address Phone DOREEN WAGNER Next of Kin [address] [place] [phone] DOREEN Emergency Contact [address] [place] [address] Insurance Providers: All historical and current [...] Name Patient's Relationship to Policy [place] [employer] [facility] (WNR) MEDICARE ADVANTAGE [facility] ([facility]) June 26, 2016 [id number] JOAN WAGNER KARSTEN PATIENT [employer] [facility] (WNR) MEDICARE ADVANTAGE [facility] ([facility]) June 26, 2016 [id number] JOAN WAGNER KARSTEN PATIENT [employer] [facility] (WNR) MEDICARE ADVANTAGE [facility] (R) June 26, 2016 [id number] JOAN WAGNER PATIENT Selected Encounter This section includes the information on record at [facility] for the Encounter. Date/Time Encounter Type Encounter Description Reason Provider Source July 19, 2022 11:16 AM OT EVAL LOW COMPLEX 30 MIN OCCUPATIONAL THERAPY ICD-10-CM Z73.6 Limitation of activities due to disability FAHAD,BRIDGET MILNER Encounter Template Text not used by [facility] Assessments - Encounter Diagnoses This section includes the primary and secondary diagnoses documented for the Encounter. Date/Time Primary/Secondary Diagnosis Diagnosis Name Provider Source July 19, 2022 03:19 PM PRIMARY Limitation of activities due to disability BRIDGET VÁSQUEZ [facility] Plan of Treatment: Future Appointments (+ 6 months) and Future Tests (+/- 45 days) The Plan of Treatment section includes future care activities for the patient [facility] This section includes future appointments and future orders which are active, pending or scheduled. Future Appointments This section includes appointments that were scheduled to occur 6 months from the date of the Encounter, up to a maximum of 20 appointments. The data comes from all [facility]. Appointment Date/Time Appointment Type Appointme nt Facility Name Jul 28, 2022 10:45 AM AMBULATORY - MEDICINE [facility] Aug 13, 2022 06:13 PM AMBULATORY - MEDICINE [facility] Aug 23, 2022 09:30 AM AMBULATORY - SURGERY [facility] Aug 23, 2022 09:45 AM AMBULATORY - NONE [facility] Aug 23, 2022 10:30 AM AMBULATORY - MEDICINE [facility] Aug 23, 2022 10:31 AM AMBULATORY - MEDICINE [facility] Sep 06, 2022 10:15 AM AMBULATORY - SURGERY [facility] Oct 25, 2022 07:00 AM AMBULATORY - NONE [facility] Oct 25, 2022 07:30 AM AMBULATORY - SURGERY [facility] Oct 25, 2022 09:[address] [facility] Active, Pending, and Scheduled [...] theEncounter. The data comes from all [facility]. Test Date/Time Test Type Test Details Facility Name Jun 12, 2022 12:00 AM Laboratory - Chemistry Order COMPREHENSIVE METABOLIC PANEL+MG PLASMA ONCO SP ONCE [facility] Jun 12, 2022 12:00 AM Laboratory - Chemistry Order CBC & DIFF BLOOD ONCO SP ONCE [facility] Jun 12, 2022 12:00 AM Laboratory - Chemistry Order TSH W/REFLEX TO FREE T4 PLASMA ONCO SP ONCE [facility] July 14, 2022 12:00 AM Laboratory - Blood Bank Order ABO/RH - LAB BLOOD WC [facility] July 14, 2022 02:05 PM Laboratory - Blood Bank Order TYPE & SCREEN - LAB BLOOD [facility] Aug 07, 2022 11:23 AM Laboratory - Chemistry Order DRUG SCREEN PANEL,URINE URINE WC ONCE [facility] Aug 23, 2022 10:47 AM Laboratory - Chemistry Order URINALYSIS URINE ER STAT [facility] Lab Results: +/- 30 days of [...] Range Comment July 19, 2022 04:40 PM [facility] FINGERSTICK GLUCOSE Specimen Type: BLOOD Comment: Save Result Nurse Notified Ordering Provider: MACKENZIE COTTER Report Released Date/Time: July 19, 2022 05:00 PM Reporting Lab: [facility] [phone] Performing Lab: [facility] [phone] FINGERSTICK GLUCOSE 132 70-100 July 19, 2022 07:13 AM [facility] COMPREHENSIVE METABOLIC PANEL+MG Specimen Type: PLASMA No comment entered. Ordering Provider: MACKENZIE COTTER Report Released Date/Time: July 18, 2022 05:40 PM Reporting Lab: [facility] [phone] Performing Lab: [facility] [address] CREATININE 0.9 0.7-1.2 UREA NITROGEN 24 8-26 [...] See_Commen t July 19, 2022 07:13 AM [facility] IRON GROUP Specimen Type: SERUM No comment entered. Ordering Provider: MACKENZIE COTTER Report Released Date/Time: July 18, 2022 05:40 PM Reporting Lab: [facility] [address] Performing Lab: [facility] [address] IRON 28 L 65-175 TIBC,CALCULATE D 223 L 250-425 FERRITIN 73.7 21.8-274.7 IRON SATURATION 13 L 20-50 TRANSFERRIN 178 163-382 July 19, 2022 07:13 AM [facility] CBC Specimen Type: BLOOD No comment entered. Ordering Provider: MACKENZIE COTTER Report Released Date/Time: July 18, 2022 05:40 PM Reporting Lab: [facility] [address] Performing Lab: [facility] [phone] WBC 7.73 4.0-11.0 RBC 2.42 L 4.6-6.2 HGB 8.2 L 13.5-17.9 HCT 23.8 L 41-54 MCV 98.3 80-100 MCH 33.9 H 27-33 MCHC 34.5 32.0-37.5 PLT 155 150-400 MPV 9.6 7.4-10.4 RDW 13.5 11.5-14.5 July 19, 2022 05:44 AM [facility] FINGERSTICK GLUCOSE Specimen Type: BLOOD Comment: Save Result Nurse Notified Ordering Provider: MACKENZIE COTTER Report Released Date/Time: July 19, 2022 11:54 AM Reporting Lab: [facility] [phone] Performing Lab: [facility] [address] FINGERSTICK GLUCOSE 137 70-100 July 18, 2022 10:51 PM [facility] FINGERSTICK GLUCOSE Specimen Type: BLOOD Comment: Save Result Nurse Notified Ordering Provider: MACKENZIE COTTER Report Released Date/Time: July 18, 2022 11:06 PM Reporting Lab: [facility] [address] Performing Lab: [facility] [address] FINGERSTICK GLUCOSE 163 70-100 July 17, 2022 06:51 AM [facility] BASIC METABOLIC PANEL+MG Specimen Type: PLASMA No comment entered. Ordering Provider: DANG VALLE R Report Released Date/Time: July 16, 2022 09:37 AM Reporting Lab: [facility] [address] Performing Lab: [facility] [address] CREATININE 0.8 0.7-1.2 UREA NITROGEN 23 8-26 GLUCOSE 107 H 70-100 SODIUM 139 136-145 POTASSIUM 3.9 3.5-5.1 CHLORIDE 106 98-107 CO2 28 22-29 CALCIUM 9.1 8.4-10.2 MAGNESIUM 1.9 1.6-2.6 ANION GAP 5 5-15 .CREAT EGFR(CKD-EPI) >90 See_Commen t July 17, 2022 06:51 AM [facility] PROTHROMBIN TIME/INR Specimen Type: PLASMA No comment entered. Ordering Provider: DANG VALLE R Report Released Date/Time: July 16, 2022 09:37 AM Reporting Lab: [facility] [address] Performing Lab: [facility] [address] .INR 1.0 0.8-1.1 .PT 11.5 9.4-12.5 July 17, 2022 06:51 AM [facility] CBC Specimen Type: BLOOD No comment entered. Ordering Provider: DANG VALLE R Report Released Date/Time: July 16, 2022 09:37 AM Reporting Lab: [facility] [address] Performing Lab: [facility] [address] WBC 6.05 4.0-11.0 RBC 3.77 L 4.6-6.2 HGB 12.7 L 13.5-17.9 HCT 36.0 L 41-54 MCV 95.5 80-100 MCH 33.7 H 27-33 MCHC 35.3 32.0-37.5 PLT 179 150-400 MPV 9.4 7.4-10.4 RDW 13.2 11.5-14.5 July 13, 2022 11:22 AM [facility] COVID-19 AND FLU/RSV DIAG PANEL(CEPHEID) Specimen Typ e: NASOPHARYNGEAL Comment: Cepheid GeneXpert (618) Ordering Provider: WHITNEY ANDERSON Report Released Date/Time: July 13, 2022 11:04 AM Reporting Lab: [facility] [phone] Performing Lab: [facility] [phone] COVID-19 (CEPHEID) Not Detected Not Detected INFLUENZA A (PCR) Not Detected Not Detected INFLUENZA B (PCR) Not Detected Not Detected RSV (PCR) Not Detected Not Detected July 13, 2022 11:00 AM [facility] C-REACTIVE PROTEIN Specimen Type: SERUM Comment: Automated Differential Performed Ordering Provider: WHITNEY ANDERSON Report Released Date/Time: July 13, 2022 11:04 AM Reporting Lab: [facility] [address] Performing Lab: [facility] [address] C-REACTIVE PROTEIN 1.17 <5.00 July 13, 2022 11:00 AM [facility] SED RATE Specimen Type: BLOOD No comment entered. Ordering Provider: WHITNEY ANDERSON Report Released Date/Time: July 13, 2022 11:04 AM Reporting Lab: [facility] [address] Performing Lab: [facility] [address] SED RATE 10 5-15 July 13, 2022 11:00 AM [facility] PROTHROMBIN TIME/INR Specimen Type: PLASMA No comment entered. Ordering Provider: WHITNEY ANDERSON Report Released Date/Time: July 13, 2022 11:04 AM Reporting Lab: [facility] [address] Performing Lab: [facility] [address] .INR 0.9 0.8-1.1 .PT 11.1 9.4-12.5 July 13, 2022 11:00 AM [facility] CBC & DIFF Specimen Type: BLOOD Comment: Automated Differential Performed Ordering Provider: WHITNEY ANDERSON Report Released Date/Time: July 13, 2022 11:04 AM Reporting Lab: [facility] [address] Performing Lab: [facility] [address] WBC 8.82 4.0-11.0 RBC 3.89 L 4.6-6.2 [...] 0.03 0-0.1 July 13, 2022 11:00 AM [facility] COMPREHENSIVE METABOLIC PANEL+MG Specimen Type: PLASMA Comment: Automated Differential Performed Ordering Provider: WHITNEY ANDERSON Report Released Date/Time: July 13, 2022 11:04 AM Reporting Lab: [facility] [address] Performing Lab: [facility] [address] CREATININE 1.0 0.7-1.2 UREA NITROGEN 16 8-26 [...] 137/75 mm[Hg] 18 /min 91 % 0 [facility] July 19, 2022 10:50 PM 7 [facility] July 19, 2022 09:57 PM 8 [facility] July 19, 2022 08:30 PM 7 [facility] July 19, 2022 08:29 PM 7 [facility] Social History: Smoking Status (Most current) and [...] 10, 2022 09:15 AM VA-TOBACCO FORMER USER [facility] Tobacco Use History This section includes a history of the smoking, or tobacco-related health factors, that were collected on or before the date of the Encounter. The data comes from the [facility] facility where the Encounter took place. Date/Time Smoking Status/Tobacco Use Comment F acility May 10, 2022 09:15 AM VA-TOBACCO QUIT 15 YRS OR MORE [facility] May 11, 2021 09:15 AM VA-TOBACCO FORMER USER [facility] May 11, 2021 09:15 AM VA-TOBACCO QUIT 15 YRS OR MORE [facility] Nov 22, 2018 01:36 PM VA-TOBACCO NEVER USED [facility] Nov 12, 2017 07:35 AM FORMER TOBACCO USER 7Y OR GREATE R [facility] Nov 06, 2016 09:05 AM FORMER TOBACCO USER 7Y OR GREATE R [facility] Sep 27, 2015 09:42 AM FORMER TOBACCO USER 7Y OR GREATE R [facility] Sep 25, 2014 07:55 AM FORMER TOBACCO USER 7Y OR GREATE R [facility] Sep 08, 2013 07:48 AM FORMER TOBACCO USER 7Y OR GREATE R [facility] July 09, 2012 09:20 AM FORMER TOBACCO USE >1Y <7Y [facility] Jun 06, 2011 07:53 AM FORMER TOBACCO USE >1Y <7Y [facility] Sep 09, 2009 03:03 PM FORMER TOBACCO USE >1Y <7Y [facility] Aug 11, 2008 01:06 PM FORMER TOBACCO USE <1Y [facility] Sep 19, 2007 02:52 PM CURRENT TOBACCO USER [facility] Sep 03, 2006 03:32 PM CURRENT TOBACCO USER [facility] Advance Directives: All historical and current Section Date Range: From patient's date of to the date document was created. This section includes ALL of a patient's completed or amended [facility] Advance and Rescinded Directives. The entries below indicate that a directive exists for the patient, but an actual copy is not included with this document. The data comes from all [facility] facilities. Date Advance Directives Provider Source Mar 18, 2003 ADVANCE DIRECTIVE FARHAT MELGAR [facility] Radiology Reports: +/- 30 [...] 07:50 AM CHEST 1 VIEW: MARYJO WAGNER [id number] -1950 M Exm Date: JULY 20, 2022@07:50 Req Phys: MACKENZIE COTTER Pat Loc: 07-20-2022@08:26 Img Loc: MAIN X-RAY Service: PRIMARY CARE - MED OFFICE (Case [id number] COMPLETE) CHEST 1 VIEW (RAD Detailed) CPT:88620 Proc Modifiers : PORTABLE EXAM Reason for Study: see below. thanks. Clinical History: IS NOT under investigation for COVID-19 or is COVID-19 negative Please further evaluate for acute airspace disease given o2 requirement. Thanks. Responsible provider name and phone number to notify for critical findings if other than user placing the order and pager listed below: User placing orders pager: [phone] same LAST CREATININE 0.9 (07/19/22) Report Status: Verified Date Reported: JULY 20, 2022 Date Verified: JULY 20, 2022 Modeling Teacher E-Sig:/ES/JAMIE MIGUEL MD Report: EXAM: CHEST 1 [...] pager listed below: User placing orders pager: [phone] same LAST CREATININE 0. COMPARISON: Chest CT [...] Primary Interpreting Staff: JAMIE MIGUEL MD, RADIOLOGIST (Modeling Teacher) /JAMIE FRANCES [facility] July 18, 2022 12:59 PM ELBOW LEFT 2 VIEWS: MARYJO WAGNER [id number] -1950 M Exm Date: JULY 18, 2022@12:59 Req Phys: LEIF BALBUENA Loc: OR-PACU/07-18-2022@13:59 Img Loc: MAIN X-RAY Service: ZZSURGICAL SERVICE (Case [id number] COMPLETE) ELBOW LEFT 2 VIEWS (RAD Detailed) CPT:11035 Proc Modifiers : PORTABLE EXAM, OPERATING ROOM EXAM Reason for Study: post-op Clinical History: post-op Report Status: Verified Date Reported: JULY 18, 2022 Date Verified: JULY 18, 2022 Modeling Teacher E-Sig:/ES/JAKUB LEE MD Report: EXAM: ELBOW LEFT [...] Primary Interpreting Staff: JAKUB LEE MD, RADIOLOGIST (Modeling Teacher) /JAKUB LUCERO [facility] July 18, 2022 07:30 AM FLUORO UP TO 1 HR PHYSICIAN TIME: MARYJO WAGNER [id number] -1950 M Exm Date: JULY 18, 2022@07:30 Req Phys: LEIF BALBUENA Loc: OR-PACU/07-18-2022@13:14 Img Loc: MAIN X-RAY Service: PRIMARY CARE - [facility] OFFICE (Case [id number] COMPLETE) FLUORO UP TO 1 HR PHYSICIAN TIME (RAD Detailed) CPT:86486 Proc Modifiers : PORTABLE EXAM, OPERATING ROOM EXAM, LEFT Reason for Study: Left distal humerous ORIF Clinical History: [place] 7 Pathologic distal humeral shaft fracture Responsible provider name and phone number to notify for critical findings if other than user placing the order and pager listed below: User placing orders pager: Jericho BALBUENAChino [phone] LAST CREATININE 0.8 (07/17/22) Report Status: Electronically Filed Date Reported: JULY 18, 2022 Report: Impression: Please see the full report for this procedure in CPRS patient progress notes. Fluoro guidance was provided during this procedure, but the study was not reviewed or verified by a [facility] radiologist. The radiation exposure dose has been recorded in the patient's chart. If you are unable to view this data, please contact the Imaging Department. VERIFIED BY: / *ELECTRONICALLY FILED* [facility] July 17, 2022 03:28 PM ABDOMINAL AORTOGRAM (P): MARYJO WAGNER [id number] -1950 M Exm Date: JULY 17, 2022@15:28 Req Phys: ASHMARY ANNEMALCOM Pat Loc: 07-17-2022@15:54 Im Loc: INTERVENTIONAL RADIOLOGY Service: PRIMARY CARE - MED OFFICE (Case [id number] COMPLETE) ANGIOGRAPHY EXTREMITY UNILAT S&I (ANI Detailed) CPT:62839 Reason for Study: codes (Case 528 COMPLETE) IR AORTOGRAPHY ABDOMINAL W/O RUNO(ANI Detailed) CPT:36050 (Case 529 COMPLETE) IR FOREIGN BODY REMOVAL INTRAVASC(ANI Detailed) CPT:72166 (Case 532 COMPLETE) IR NEEDLE/INTRACATH PLACEMENT EXT(ANI Detailed) CPT:74502 (Case 533 COMPLETE) IR PLACEMENT OCCLUSIVE DEVICE SAM(ANI Detailed) CPT:G0269 Clinical History: codes Report Status: Verified Date Reported: JULY 17, 2022 Date Verified: JULY 17, 2022 Modeling Teacher E-Sig:/ES/MALCOM LANGLEY MD Report: RADIOLOGIST: Malcom Langley [...] angiogram and runoff. 12. Closure of right BILINGUAL SALES REPRESENTATIVE with Angio-Seal device. HISTORY: Metastatic renal cell [...] into the left brachial artery. The 5 Togolese sheath was exchanged for a 6 Togolese sheath that was advanced into the left [...] arteries. Sheath and catheters were removed and BILINGUAL SALES REPRESENTATIVE arteriotomy was closed using Angioseal. There is patent hemostasis. No bleeding or hematoma noted. Sterile dressing applied. 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 Primary Interpreting Staff: MALCOM LANGLEY MD, INTERVENTIONAL RADIOLOGIST (Hugo) /MALCOM HE [facility] July 17, 2022 07:30 AM RENAL ARTERY EMBOLIZATION (P): MARYJO WAGNER [id number] -1950 M Exm Date: JULY 17, 2022@07:30 Req Phys: WESTON VASQUEZ Pat Loc: 07-17-2022@15:46 Img Loc: INTERVENTIONAL RADIOLOGY Service: PRIMARY CARE - MED OFFICE (Case 130 COMPLETE) IR TRANSCATH EMBOLIZATION W/ANGIO(ANI Detailed) CPT:74479 Reason for Study: embolization of RCC mets to left humerus (Case 131 COMPLETE) IR ARTERIAL EMBOLIZATION OTHER TH(ANI Detailed) CPT:68894 (Case 132 COMPLETE) IR US GUIDANCE VASCULAR ACCESS (ANI Detailed) CPT:76455 Clinical History: [place] IS NOT under investigation for COVID-19 or [...] pager listed below: User placing orders pager: [phone] LAST CREATININE 1.0 (07/13/22) Report Status: Verified Date Reported: JULY 17, 2022 Date Verified: JULY 17, 2022 Modeling Teacher E-Sig:/ES/MALCOM LANGLEY MD Report: RADIOLOGIST: Malcom Langley [...] angiogram and runoff. 12. Closure of right BILINGUAL SALES REPRESENTATIVE with Angio-Seal device. HISTORY: Metastatic renal cell [...] into the left brachial artery. The 5 Togolese sheath was exchanged for a 6 Togolese sheath that was advanced into the left [...] arteries. Sheath and catheters were removed and BILINGUAL SALES REPRESENTATIVE arteriotomy was closed using Angioseal. There is patent hemostasis. No bleeding or hematoma noted. Sterile dressing applied. 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 Primary Interpreting Staff: MALCOM LANGLEY MD, INTERVENTIONAL RADIOLOGIST (Modeling Teacher) /MALCOM HE [facility] July 14, 2022 06:44 AM HUMERUS LEFT MINIMUM 2 VIEWS: MARYJO WAGNER DIRK [id number] -1950 M Exm Date: JULY 14, 2022@06:44 Req Phys: WESTON VASQUEZ Pat Loc: 07-14-2022@07:13 Img Loc: MAIN X-RAY Service: PRIMARY CARE - MED OFFICE (Case [id number] COMPLETE) HUMERUS LEFT MINIMUM 2 VIEWS (RAD Detailed) CPT:39610 Reason for Study: post reduction Clinical History: Report Status: Verified Date Reported: JULY 14, 2022 Date Verified: JULY 14, 2022 Modeling Teacher E-Sig: Report: HUMERUS LEFT MINIMUM 2 VIEWS [...] less likely. READING PHYSICIAN: Xavier Merrill MD -[phone] 07/14/2022 5:11 PDT [facility] National Teleradiology Program [phone] (For Medical Practitioner Use Only) Attention Patients / Veterans: If you have questions or concerns about these test results, please contact your ordering provider or primary care team. Primary Interpreting Staff: RADIOLOGY,OUTSIDE SERVICE, Staff Physician / RADIOLOGY,OUTSIDE SERVICE [facility] July 13, 2022 10:07 AM HUMERUS LEFT MINIMUM 2 VIEWS: MARYJO WAGNER [id number] -1950 M Exm Date: JULY 13, 2022@10:07 Req Phys: WHITNEY ANDERSON Pat Loc: [facility] EMERGENCY DEPT WALK-IN (Re Img Loc: MAIN X-RAY Service: Unknown (Case [id number] COMPLETE) HUMERUS LEFT MINIMUM 2 VIEWS (RAD Detailed) CPT:56168 Proc Modifiers : LEFT Reason for Study: L arm pain Clinical History: [place] IS NOT under investigation for COVID-19 or is COVID-19 negative Atraumatic left upper extremity pain that is located midshaft humerus distally to the mid forearm. Clinical concern for dislocation versus fracture versus bone mets Responsible provider name and phone number to notify for critical findings if other than user placing the order and pager listed below: User placing orders pager: [phone] LAST CREATININE 0.8 (05/10/22) Report Status: Verified Date Reported: JULY 13, 2022 Date Verified: JULY 13, 2022 Modeling Teacher E-Sig:/ES/ALBINA COWAN MD, FACR, CCD Report: EXAMINATION: [...] Staff: ALBINA COWAN MD, FACR, STAFF RADIOLOGIST (Modeling Teacher) /BSF ALBINA COWAN [facility] July 13, 2022 10:07 AM ELBOW LEFT 3 OR MORE VIEWS: MARYJO WAGNER [id number] -1950 M Exm Date: JULY 13, 2022@10:07 Req Phys: WHITNEY ANDERSON Pat Loc: [facility] EMERGENCY DEPT WALK-IN (Re Img Loc: MAIN X-RAY Service: Unknown (Case [id number] COMPLETE) ELBOW LEFT 3 OR MORE VIEWS (RAD Detailed) CPT:32806 Proc Modifiers : LEFT Reason for Study: L arm pain Clinical History: [place] IS NOT under investigation for COVID-19 or is COVID-19 negative Atraumatic left upper extremity pain that is located midshaft humerus distally to the mid forearm. Clinical concern for dislocation versus fracture versus bone mets Responsible provider name and phone number to notify for critical findings if other than user placing the order and pager listed below: User placing orders pager: [phone] LAST CREATININE 0.8 (05/10/22) Report Status: Verified Date Reported: JULY 13, 2022 Date Verified: JULY 13, 2022 Modeling Teacher E-Sig:/ES/ALBINA COWAN MD, FACR, CCD Report: EXAMINATION: [...] Staff: ALBINA COWAN MD, FACR, STAFF RADIOLOGIST (Modeling Teacher) /BSF ALBINA COWAN [facility] July 13, 2022 10:07 AM FOREARM LEFT 2 VIEWS: MARYJO WAGNER [id number] -1950 M Exm Date: JULY 13, 2022@10:07 Req Phys: WHITNEY ANDERSON Pat Loc: [facility] EMERGENCY DEPT WALK-IN (Re Img Loc: MAIN X-RAY Service: Unknown (Case [id number] COMPLETE) FOREARM LEFT 2 VIEWS (RAD Detailed) CPT:94560 Proc Modifiers : LEFT Reason for Study: [...] pager listed below: User placing orders pager: [phone] LAST CREATININE 0.8 (05/10/22) Report Status: Verified Date Reported: JULY 13, 2022 Date Verified: JULY 13, 2022 Modeling Teacher E-Sig:/ES/ALBINA COWAN MD, FACR, CCD Report: EXAMINATION: [...] Staff: ALBINA COWAN MD, FACR, STAFF RADIOLOGIST (Modeling Teacher) /BSF ALBINA COWAN [facility] Pathology Reports: +/- 30 days of [...] COSIGNER: URGENCY: STATUS: COMPLETED $APHDR Reporting Lab: [facility] [CLIA# [id number]] [place] [address] - - - - - - - [...] Performing Laboratory: Surgical Pathology Report Performed By: [facility] [CLIA# [id number]] [place] [address] $FTR - - - - - - [...] - - MARYJO WAGNER STANDARD FORM 515 ID:[id number] SEX:M :1950 AGE: 72 LOC:[facility] PATHOLOGY PRO FEE ADM:June DX:PATHOLOGIC FX LF HUMERUS PCP: Leif Balbuena MD /sangita/ JIAN SANDOVAL STAFF PATHOLOGIST, PATHOLOGY & LABORATORY MED [facility] Signed: 07/21/2022 14:37 JIAN SANDOVAL [facility] Encounter Notes: All associated encounter notes This section contains the clinical notes associated to the Encounter. Date/Time Encounter Note(s) Provider Source July 19, 2022 03:06 PM OCCUPATIONAL THERA PY CONSULT: LOCAL TITLE: OCCUPATIONAL THERAPY CONSULT STANDARD TITLE: OCCUPATIONAL THERAPY CONSULT DATE OF NOTE: JULY 19, 2022@15:06 ENTRY DATE: JULY 19, 2022@15:06:16 AUTHOR: HARJINDER VÁSQUEZ COSIGNER: URGENCY: STATUS: COMPLETED OCCUPATIONAL THERAPY CONSULT Has ADDENDA OCCUPATIONAL THERAPY EVALUATION NOTE Referring provider: EVELYN KRUGER Diagnosis for which patient is referred to OT: Pathologic left distal humerus fx Consult request: Assess and treat Precautions: NWB LUE Dates of service: 07/19/22 (Eval) Patient seen for 12 minutes OT Evaluation 12 minutes Low Complexity ASSESSMENT: Vedi is a 72 year old male being seen at the [facility] due to a pathologic left distal humerus fracture s/p open reduction internal fixation with tumor excision, cement augmentation, and olecranon osteotomy on 07/18/22. Per chart, has a PMH of HTN, adjustment disorder, and prostate and kidney cancer which metastasized to the bone. OT consulted for evaluation and treatment. At baseline, reports living with his in a 2 story house with all needs met on the main level. He reports being independent with ADLs and sharing IADLs with his . Following evaluation, is functioning below baseline due to decreased activity tolerance, impaired balance, and inability to use LUE. He was able to perform bed mobility with SBA. Required CGA for functional transfers and mobility. Mildly unsteady on his feet with ambulation while pushing IV pole. Educated on performing PROM to L fingers with use of R hand; demonstrated understanding. At this time, has good potential to benefit from ongoing OT to address stated limitations negatively impacting performance and safety of I/ADLs. Pending progress in therapy, anticipate will be safe to discharge home once medically stable with assistance from family as needed for ADLs and IADLs. PLAN: Patient will be seen 3 times per week for 30 minute sessions until goals are met and/or discharged. SHORT TERM GOALS TO BE MET BY 07/26/22: 1. Vet will complete total body dressing with supervision, using AE as needed. 2. Vet will complete full toileting task, including transfers, hygiene, and clothing management with supervision. 3. Vet will complete >3m of standing grooming/hygiene activities including gathering of supplies with supervision. 4. Vet will participate in identification and trialing of appropriate AE/DME to promote functional independence and safety at home. SENIOR CARE GOALS TO BE MET BY Discharge: [place] will maximize independence and safety with ADL/IADLs in order to return to least restrictive living environment. DISCHARGE: Pending further progress in therapy, anticipate will be safe to discharge home once medically stable with assistance from family as needed for ADLs and IADLs. PATIENT EDUCATION ON TREATMENT PLAN: Patient indicates readiness to learn, verbalizes understanding, agreement and satisfaction with the treatment plan. Denies further questions. _ CURRENT MEDICAL HISTORY: OBESITY, UNSP (ICD-9-CM 278.00) LIVER CHEM, ABNORMAL (ICD-9-CM 790.5) Adjustment Disorder with Mixed Anxiety aOther and unspecified Sleep Apnea (ICD- 9-CM 780.57) Elevated Prostate Specific Antigen (PSA)Dysmetabolic Syndrome X (ICD-9-CM 277.7) Polyp of colon (SCT 56943159) Malignant tumor of prostate (SCT 809942992) Benign hypertension (SCT 62054305) Retention of urine (SCT 819794972) Malignant tumor of kidney parenchyma (SCMultinodular goiter ([facility] [id number]) Secondary malignant neoplasm of pancreas _ SUBJECTIVE: [place] identified concerns/problems: Mild pain in LUE; does not rate. identified goal(s): Return home CONTEXT SOCIAL HISTORY/HOME ENVIRONMENT: Lives: with Primary Support System: Lives in: multi-level house Home accessibility comments: - 2 SONID[address] without railing - All needs met on main level - Walk-in shower with shower chair available; unsure if there are grab bars - Standard height toilet without grab bars PRIOR LEVEL OF INDEPENDENCE: Activities of Daily Living (ADLs): Independent including with straight cathing 2x/day. Functional Mobility: Ambulates community distances without use of AD. Instrumental Activities of Daily Living (IADLs): primarily does the cooking, cleaning, and laundry. assists with medication management as needed. continues to drive. Falls: No falls in the last 6 months. _ OBJECTIVE: FUNCTION IN AREAS OF OCCUPATION: Activities of Daily Living (ADLs) -Hygiene and grooming: Not tested -Feeding: Not tested -Toileting: Transfer onto tall toilet commode with SBA. Provided with supplies to straight-cath per his request. -UE Dressing: Not tested -Lower Extremity Dressing: Not tested -Functional mobility (Transfers): Sit <> stand transfer with CGA while using IV pole for UE support. -Bed mobility: Supine to sit transfer with SBA with HOB >30 degrees and with use of bed rail for UE support. -Falls/Mobility: Ambulated from bed to bathroom with CGA while pushing IV pole. Noted to be mildly unsteady and impulsive on his feet while ambulating. [place] in bathroom, call light in reach at end of session. Emphasized importance of pulling call cord to alert RN for assistance when he was finished using the bathroom. IDENTIFIED ADAPTIVE EQUIPMENT NEEDS: pending COGNITION: - Orientation: Oriented x3. Reports the date originally as August 19 2023. Reoriented to time. - Attention span: Alert and attentive throughout session. - Commands: Able to follow 2 step commands. - Communication: Able to make needs known. - Safety Awareness: May be slightly diminished; will continue to assess. EMOTIONAL/BEHAVIORAL: Appropriate affect, Eye contact, Acknowledges others, Initiates/engages conversation, Calm/pleasant, Cooperative NEUROMUSCULAR FUNCTION RUE ROM and strength WFL based on performance during functional tasks. Unable to move LUE due to post-op restrictions. Cued to wiggle fingers on L hand; unable to complete. Educated to perform PROM to L hand/fingers with use of R hand intermittently (at least 2-3 times per day) while laying in bed; demonstrated understanding. Hand dominance: Right OCCUPATIONAL THERAPY EVALUATION COMPLEXITY Identifying and reporting the complexity level of an evaluation focuses on the first three of these factors--profile and history, assessment and determination of deficits, and clinical decision making. These three factors must be scored and defensible documentation written to support the choice of a level. (Information taken from: https://www.[facility].org) PROFILE AND HISTORY (including chart view) Brief history of medical and/or therapy records relating to the presenting problem (low complexity) ASSESSMENT & PERFORMANCE DEFICITS (select all that apply): Physical & Cognition 1-3 performance deficits (Low complexity) LEVEL OF CLINICAL DECISION MAKING Problem-focused assessment(s), consideration of a limited number of treatment options, presents with no comorbidities and modification of tasks or assistance is not necessary.(Low complexity) LOW COMPLEXITY Brief history of medical/or therapy records relating to the presenting problem. An assessment(s) that identifies 1-3 performance deficits that result in activity limitation and/or participating restrictions. Includes analysis of the occupational profile, analysis of date from problem- focused assessment(s), and consideration of a limited number of treatment options. Patient presents with no comorbidities that affect occupational performance. Modification of tasks or assistance with assessment(s) is not necessary to enable completion of evaluation component. * /miguelina VÁSQUEZ OTR/Kirstie OCCUPATIONAL THERAPIST Signed: 07/19/2022 15:19 07/23/2022 ADDENDUM STATUS: COMPLETED discharged home on 07/21/22 prior to initiation of OT follow-up services. seen for OT evaluation only while inpatient. At this time, is discharged from inpatient OT services. /miguelina VÁSQUEZ OTR/Kirstie OCCUPATIONAL THERAPIST Signed: 07/23/2022 14:39 HARJINDER VÁSQUEZ [facility]
--- OUTSIDE RECORDS SUMMARY | 2023-03-24 08:45 | XMS_ITS ---
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 [facility] Organization Department of [facility] Address [address] [place] [address] Support Name Relationship Address Phone DOREEN WAGNER Next of Kin [address] [place] [phone] DOREEN Emergency Contact [address] [place] [phone] Insurance Providers: All historical and current [...] Casey HUMANA [facility] (WNR) MEDICARE [facility] ([facility]) June 26, 2016 [id number] CARSONJOAN ROWELL PATIENT [employer]MANA MCR (WNR) MEDICARE ADVANTAGE [facility] ([facility]) June 26, 2016 [id number] [phone] JOAN WAGNER KARSTEN PATIENT [employer]NA MCR (WNR) MEDICARE ADVANTAGE [facility] (R) June 26, 2016 [id number] JOAN WAGNER KARSTEN PATIENT Selected Encounter This section includes the information on record at ME for the Encounter. Date/Time Encounter Type Encounter Description Reason Pro vider Source July 18, 2022 01:00 AM Inpatient Visit ADMIN [employer] SYSTEM,[facility] Encounter Template Text not used by ME Plan of Treatment: Future Appointments (+ 6 [...] appointments. The data comes from all [facility]. Appointment Date/Time Appointment Type Appointme nt Facility Name Jul 28, 2022 10:45 AM [facility] Aug 13, 2022 06:13 PM [facility] Aug 23, 2022 09:30 AM AMBULATORY - SURGERY [facility] Aug 23, 2022 09:45 AM [facility] Aug 23, 2022 10:30 AM AMBULATORY - MEDICINE [facility] Aug 23, 2022 10:31 AM AMBULATORY - MEDICINE [facility] Sep 06, 2022 10:15 AM AMBULATORY - SURGERY [facility] Oct 25, 2022 07:00 AM [facility] Oct 25, 2022 07:30 AM AMBULATORY - SURGERY [facility] Oct 25, 2022 09:00 AM AMBULATORY - SURGERY [facility] Active, Pending, and Scheduled [...] theEncounter. The data comes from all [facility]. Test Date/Time Test Type Test Details Facility Name Jun 12, 2022 12:00 AM Laboratory - Chemistry Order CBC & DIFF BLOOD ONCO SP ONCE [facility] Jun 12, 2022 12:00 AM Laboratory - Chemistry Order COMPREHENSIVE METABOLIC PANEL+MG PLASMA ONCO SP ONCE [facility] Jun 12, 2022 12:00 AM Laboratory - Chemistry Order TSH W/REFLEX TO FREE T4 PLASMA ONCO SP ONCE [facility] July 14, 2022 12:00 AM Laboratory - Blood Bank Order ABO/RH - LAB BLOOD [facility] July 14, 2022 02:05 PM Laboratory - Blood Bank Order TYPE & SCREEN - LAB BLOOD [facility] Aug 07, 2022 11:23 AM Laboratory - Chemistry Order DRUG SCREEN PANEL,URINE URINE ONCE [facility] Aug 23, 2022 10:47 AM Laboratory - Chemistry Order URINALYSIS URINE ER STAT WC [facility] Lab Results: +/- 30 days of the encounter This section includes the Chemistry and Hematology Lab Results on record with ME for the patient. Radiology Reports and Pathology Reports are provided separately, in subsequent sections. Lab Results This section contains the Chemistry/Hematology Results that were resulted 30 days before or 30 daysafter the date of the Encounter. Date/Time Source Result Type Result - Unit Interpretation Reference Range Comment July 19, 2022 04:40 PM [facility] FINGERSTICK GLUCOSE Specimen Type: BLOOD Comment: Save Result Nurse Notified Ordering Provider: MACKENZIE COTTER Report Released Date/Time: July 19, 2022 05:00 PM Reporting Lab: [facility] [address] Performing Lab: [facility] [address] FINGERSTICK GLUCOSE 132 70-100 July 19, 2022 07:13 AM [facility] COMPREHENSIVE METABOLIC PANEL+MG Specimen Type: PLASMA No comment entered. Ordering Provider: MACKENZIE COTTER Report Released Date/Time: July 18, 2022 05:40 PM Reporting Lab: [facility] [address] Performing Lab: [facility] [address] CREATININE 0.9 0.7-1.2 UREA NITROGEN 24 8-26 [...] See_Commen t July 19, 2022 07:13 AM [facility] IRON GROUP Specimen Type: SERUM No comment entered. Ordering Provider: MACKENZIE COTTER Report Released Date/Time: July 18, 2022 05:40 PM Reporting Lab: [facility] [address] Performing Lab: [facility] [address] IRON 28 L 65-175 TIBC,CALCULATE D 223 L 250-425 FERRITIN 73.7 21.8-274.7 IRON SATURATION 13 L 20-50 TRANSFERRIN 178 163-382 July 19, 2022 07:13 AM [facility] CBC Specimen Type: BLOOD No comment entered. Ordering Provider: MACKENZIE COTTER Report Released Date/Time: July 18, 2022 05:40 PM Reporting Lab: [facility] [address] Performing Lab: [facility] [address] WBC 7.73 4.0-11.0 RBC 2.42 L 4.6-6.2 HGB 8.2 L 13.5-17.9 HCT 23.8 L 41-54 MCV 98.3 80-100 MCH 33.9 H 27-33 MCHC 34.5 32.0-37.5 PLT 155 150-400 MPV 9.6 7.4-10.4 RDW 13.5 11.5-14.5 July 19, 2022 05:44 AM [facility] FINGERSTICK GLUCOSE Specimen Type: BLOOD Comment: Save Result Nurse Notified Ordering Provider: MACKENZIE COTTER Report Released Date/Time: July 19, 2022 11:54 AM Reporting Lab: [facility] [address] Performing Lab: [facility] [address] FINGERSTICK GLUCOSE 137 70-100 July 18, 2022 10:51 PM [facility] FINGERSTICK GLUCOSE Specimen Type: BLOOD Comment: Save Result Nurse Notified Ordering Provider: MACKENZIE COTTER Report Released Date/Time: July 18, 2022 11:06 PM Reporting Lab: [facility] [address] Performing Lab: [facility] [address] FINGERSTICK GLUCOSE 163 70-100 July 17, 2022 06:51 AM [facility] BASIC METABOLIC PANEL+MG Specimen Type: PLASMA No comment entered. Ordering Provider: DANG VALLE Report Released Date/Time: July 16, 2022 09:37 AM Reporting Lab: [facility] [address] Performing Lab: [facility] [address] CREATININE 0.8 0.7-1.2 UREA NITROGEN 23 8-26 GLUCOSE 107 H 70-100 SODIUM 139 136-145 POTASSIUM 3.9 3.5-5.1 CHLORIDE 106 98-107 CO2 28 22-29 CALCIUM 9.1 8.4-10.2 MAGNESIUM 1.9 1.6-2.6 ANION GAP 5 5-15 .CREAT EGFR(CKD-EPI) >90 See_Commen t July 17, 2022 06:51 AM [facility] PROTHROMBIN TIME/INR Specimen Type: PLASMA No comment entered. Ordering Provider: DANG VALLE R Report Released Date/Time: July 16, 2022 09:37 AM Reporting Lab: [facility] [address] Performing Lab: [facility] [address] .INR 1.0 0.8-1.1 .PT 11.5 9.4-12.5 July 17, 2022 06:51 AM [facility] CBC Specimen Type: BLOOD No comment entered. Ordering Provider: DANG VALLE R Report Released Date/Time: July 16, 2022 09:37 AM Reporting Lab: [facility] [address] Performing Lab: [facility] [address] WBC 6.05 4.0-11.0 RBC 3.77 L 4.6-6.2 HGB 12.7 L 13.5-17.9 HCT 36.0 L 41-54 MCV 95.5 80-100 MCH 33.7 H 27-33 MCHC 35.3 32.0-37.5 PLT 179 150-400 MPV 9.4 7.4-10.4 RDW 13.2 11.5-14.5 July 13, 2022 11:22 AM [facility] COVID-19 AND FLU/RSV DIAG PANEL(CEPHEID) Specimen Typ e: NASOPHARYNGEAL Comment: Cepheid GeneXpert (618) Ordering Provider: WHITNEY ANDERSON Report Released Date/Time: July 13, 2022 11:04 AM Reporting Lab: [facility] [address] Performing Lab: [facility] [address] COVID-19 (CEPHEID) Not Detected Not Detected INFLUENZA A (PCR) Not Detected Not Detected INFLUENZA B (PCR) Not Detected Not Detected RSV (PCR) Not Detected Not Detected July 13, 2022 11:00 AM [facility] C-REACTIVE PROTEIN Specimen Type: SERUM Comment: Automated Differential Performed Ordering Provider: WHITNEY ANDERSON Report Released Date/Time: July 13, 2022 11:04 AM Reporting Lab: [facility] [address] Performing Lab: [facility] [address] C-REACTIVE PROTEIN 1.17 <5.00 July 13, 2022 11:00 AM [facility] SED RATE Specimen Type: BLOOD No comment entered. Ordering Provider: WHITNEY ANDERSON Report Released Date/Time: July 13, 2022 11:04 AM Reporting Lab: [facility] [address] Performing Lab: [facility] [address] SED RATE 10 5-15 July 13, 2022 11:00 AM [facility] PROTHROMBIN TIME/INR Specimen Type: PLASMA No comment entered. Ordering Provider: WHITNEY ANDERSON Report Released Date/Time: July 13, 2022 11:04 AM Reporting Lab: [facility] [address] Performing Lab: [facility] [address] .INR 0.9 0.8-1.1 .PT 11.1 9.4-12.5 July 13, 2022 11:00 AM [facility] CBC & DIFF Specimen Type: BLOOD Comment: Automated Differential Performed Ordering Provider: WHITNEY ANDERSON Report Released Date/Time: July 13, 2022 11:04 AM Reporting Lab: [facility] [address] Performing Lab: [facility] [address] WBC 8.82 4.0-11.0 RBC 3.89 L 4.6-6.2 [...] 0.03 0-0.1 July 13, 2022 11:00 AM [facility] COMPREHENSIVE METABOLIC PANEL+MG Specimen Type: PLASMA Comment: Automated Differential Performed Ordering Provider: WHITNEY ANDERSON Report Released Date/Time: July 13, 2022 11:04 AM Reporting Lab: [facility] [address] Performing Lab: [facility] [address] CREATININE 1.0 0.7-1.2 UREA NITROGEN 16 8-26 [...] and tobacco- related health factors from the [place] facility where the Encounter took place. Current Smoking Status This section includes the most current smoking, or tobacco-related health factor, from the [place] facility where the Encounter took place. Date/Time Current Smoking Status Comment Facil ity May 10, 2022 09:15 AM VA-TOBACCO FORMER USER [facility] Tobacco Use History This section includes a history of the smoking, or tobacco-related health factors, that were collected on or before the date of the Encounter. The data comes from the ME facility where the Encounter took place. Date/Time Smoking Status/Tobacco Use Comment F acility May 10, 2022 09:15 AM VA-TOBACCO QUIT 15 YRS OR MORE [facility] May 11, 2021 09:15 AM VA-TOBACCO FORMER USER [facility] May 11, 2021 09:15 AM ME-TOBACCO QUIT 15 YRS OR MORE [facility] Nov 22, 2018 01:36 PM VA-TOBACCO NEVER USED [facility] Nov 12, 2017 07:35 AM FORMER TOBACCO USER 7Y OR GREATE R [facility] Nov 06, 2016 09:05 AM FORMER TOBACCO USER 7Y OR GREATE R [facility] Sep 27, 2015 09:42 AM FORMER TOBACCO USER 7Y OR GREATE R [facility] Sep 25, 2014 07:55 AM FORMER TOBACCO USER 7Y OR GREATE R [facility] Sep 08, 2013 07:48 AM FORMER TOBACCO USER 7Y OR GREATE R [facility] July 09, 2012 09:20 AM FORMER TOBACCO USE >1Y <7Y [facility] Jun 06, 2011 07:53 AM FORMER TOBACCO USE >1Y <7Y [facility] Sep 09, 2009 03:03 PM FORMER TOBACCO USE >1Y <7Y [facility] Aug 11, 2008 01:06 PM FORMER TOBACCO USE <1Y [facility] Sep 19, 2007 02:52 PM CURRENT TOBACCO USER [facility] Sep 03, 2006 03:32 PM CURRENT TOBACCO USER [facility] Advance Directives: All historical and current Section Date Range: From patient's date of to the date document was created. This section includes ALL of a patient's completed or amended [place] Advance and Rescinded Directives. The entries below [...] the Encounter. The data comes from all [place] treatment facilities. Date/Time Radiology Report Provider Source July 20, 2022 07:50 AM CHEST 1 VIEW: MARYJO WAGNER [id number] -1950 M Exm Date: JULY 20, 2022@07:50 Req Phys: MACKENZIE COTTER Pat Loc: 07-20-2022@08:26 Img Loc: MAIN X-RAY Service: PRIMARY CARE - MED OFFICE (Case [id number] COMPLETE) CHEST 1 VIEW (RAD Detailed) CPT:96299 Proc Modifiers : PORTABLE EXAM Reason for Study: see below. thanks. Clinical History: Bonner IS NOT under investigation for COVID-19 or is COVID-19 negative Please further evaluate for acute airspace disease given o2 requirement. Thanks. Responsible provider name and phone number to notify for critical findings if other than user placing the order and pager listed below: User placing orders pager: [phone] same LAST CREATININE 0.9 (07/19/22) Report Status: Verified Date Reported: JULY 20, 2022 Date Verified: JULY 20, 2022 Business Quality Assurance Analyst E-Sig:/ES/JAMIE MIGUEL MD Report: EXAM: CHEST [...] pager listed below: User placing orders pager: [phone] same LAST CREATININE 0. COMPARISON: Chest CT [...] Primary Interpreting Staff: JAMIE MIGUEL MD, RADIOLOGIST (Business Quality Assurance Analyst) /JAMIE FRANCES [facility] July 18, 2022 12:59 PM ELBOW LEFT 2 VIEWS: MARYJO WAGNER [id number] -1950 M Exm Date: JULY 18, 2022@12:59 Req Phys: LEIF BALBUENA Loc: OR-PACU/07-18-2022@13:59 Img Loc: MAIN X-RAY Service: ZZSURGICAL SERVICE (Case [id number] COMPLETE) ELBOW LEFT 2 VIEWS (RAD Detailed) CPT:14237 Proc Modifiers : PORTABLE EXAM, OPERATING ROOM EXAM Reason for Study: post-op Clinical History: post-op Report Status: Verified Date Reported: JULY 18, 2022 Date Verified: JULY 18, 2022 Business Quality Assurance Analyst E-Sig:/ES/JAKUB LEE MD Report: EXAM: ELBOW [...] Primary Interpreting Staff: JAKUB LEE MD, RADIOLOGIST (Business Quality Assurance Analyst) /[facility] JAKUB LEE [facility] July 18, 2022 07:30 AM FLUORO UP TO 1 HR PHYSICIAN TIME: MARYJO WAGNER [id number] -1950 M Exm Date: JULY 18, 2022@07:30 Req Phys: LEIF BALBUENA Loc: OR-PACU/07-18-2022@13:14 Img Loc: MAIN X-RAY Service: PRIMARY CARE - MED OFFICE (Case [id number] COMPLETE) FLUORO UP TO 1 HR PHYSICIAN TIME (RAD Detailed) CPT:26459 Proc Modifiers : PORTABLE EXAM, OPERATING ROOM EXAM, LEFT Reason for Study: Left distal humerous ORIF Clinical History: OR 7 Pathologic distal humeral shaft fracture Responsible provider name and phone number to notify for critical findings if other than user placing the order and pager listed below: User placing orders pager: Henry BALBUENA [phone] LAST CREATININE 0.8 (07/17/22) Report Status: Electronically Filed Date Reported: JULY 18, 2022 Report: Impression: Please see the full report for this procedure in CPRS patient progress notes. Fluoro guidance was provided during this procedure, but the study was not reviewed or verified by a [facility] radiologist. The radiation exposure dose has been recorded in the patient's chart. If you are unable to view this data, please contact the Imaging Department. VERIFIED BY: / *ELECTRONICALLY FILED* [facility] July 17, 2022 03:28 PM ABDOMINAL AORTOGRAM (P): MARYJO WAGNER [id number] -1950 M Exm Date: JULY 17, 2022@15:28 Req Phys: MALCOM LANGLEY [facility] Loc: 07-17-2022@15:54 Img Loc: INTERVENTIONAL RADIOLOGY Service: PRIMARY CARE - MED OFFICE (Case [id number] COMPLETE) ANGIOGRAPHY EXTREMITY UNILAT S&I (ANI Detailed) CPT:11418 Reason for Study: codes (Case 528 COMPLETE) IR AORTOGRAPHY ABDOMINAL W/O RUNO(ANI Detailed) CPT:61282 (Case 529 COMPLETE) IR FOREIGN BODY REMOVAL INTRAVASC(ANI Detailed) CPT:99506 (Case 532 COMPLETE) IR NEEDLE/INTRACATH PLACEMENT EXT(ANI Detailed) CPT:96770 (Case 533 COMPLETE) IR PLACEMENT OCCLUSIVE DEVICE SAM(ANI Detailed) CPT:G0269 Clinical History: codes Report Status: Verified Date Reported: JULY 17, 2022 Date Verified: JULY 17, 2022 Business Quality Assurance Analyst E-Sig:/ES/MALCOM LANGLEY MD Report: RADIOLOGIST: Malcom [...] angiogram and runoff. 12. Closure of right [employer]ER with Angio-Seal device. HISTORY: Metastatic renal cell [...] Sheath removed over guidewire and a 5 wallisian vascular sheath advanced over guidewire into the artery. An H1 catheter was advanced along with the guidewire into the thoracic arch and the left subclavian artery was selected. Catheter and the guidewire were advanced into the left brachial artery. The 5 Albanian sheath was exchanged for a 6 Albanian sheath that was advanced into the left [...] arteries. Sheath and catheters were removed and [employer] TE[employer]ER arteriotomy was closed using Angioseal. There is patent hemostasis. No bleeding or hematoma noted. Sterile dressing applied. 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 Primary Interpreting Staff: MALCOM LANGLEY MD, INTERVENTIONAL RADIOLOGIST (Business Quality Assurance Analyst) /MALCOM HE [facility] July 17, 2022 07:30 AM RENAL ARTERY EMBOLIZATION (P): MARYJO WAGNER [id number] -1950 M Exm Date: JULY 17, 2022@07:30 Req Phys: WESTON VASQUEZ Pat Loc: 07-17-2022@15:46 Img Loc: INTERVENTIONAL RADIOLOGY Service: PRIMARY CARE - MED OFFICE (Case 130 COMPLETE) IR TRANSCATH EMBOLIZATION W/ANGIO(ANI Detailed) CPT:77924 Reason for Study: embolization of RCC mets to left humerus (Case 131 COMPLETE) IR ARTERIAL EMBOLIZATION OTHER TH(ANI Detailed) CPT:59905 (Case 132 COMPLETE) IR US GUIDANCE VASCULAR ACCESS (ANI Detailed) CPT:58462 Clinical History: Bonner IS NOT under investigation for COVID-19 or [...] pager listed below: User placing orders pager: [phone] LAST CREATININE 1.0 (07/13/22) Report Status: Verified Date Reported: JULY 17, 2022 Date Verified: JULY 17, 2022 Business Quality Assurance Analyst E-Sig:/ES/MALCOM LANGLEY MD Report: RADIOLOGIST: Malcom [...] angiogram and runoff. 12. Closure of right [employer]ER with Angio-Seal device. HISTORY: Metastatic renal cell [...] Sheath removed over guidewire and a 5 wallisian vascular sheath advanced over guidewire into the artery. An H1 catheter was advanced along with the guidewire into the thoracic arch and the left subclavian artery was selected. Catheter and the guidewire were advanced into the left brachial artery. The 5 Albanian sheath was exchanged for a 6 Albanian sheath that was advanced into the left [...] arteries. Sheath and catheters were removed and H[employer]HE[employer] TE[employer]ER arteriotomy was closed using Angioseal. There is patent hemostasis. No bleeding or hematoma noted. Sterile dressing applied. 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 Primary Interpreting Staff: MALCOM LANGLEY MD, INTERVENTIONAL RADIOLOGIST (Business Quality Assurance Analyst) /MALCOM HE [facility] July 14, 2022 06:44 AM HUMERUS LEFT MINIMUM 2 VIEWS: MARYJO WAGNER [id number] -1950 M Exm Date: JULY 14, 2022@06:44 Req Phys: PEDROWESTON [facility] Loc: 07-14-2022@07:13 Img Loc: MAIN X-RAY Service: PRIMARY CARE - MED OFFICE (Case [id number] COMPLETE) HUMERUS LEFT MINIMUM 2 VIEWS (RAD Detailed) CPT:31114 Reason for Study: post reduction Clinical History: Report Status: Verified Date Reported: JULY 14, 2022 Date Verified: JULY 14, 2022 Business Quality Assurance Analyst E-Sig: Report: HUMERUS LEFT MINIMUM 2 VIEWS HISTORY: post reduction COMPARISON: 07/13/2022 TECHNIQUE: 2 view(s) of the humerus, submitted to the [place] National Teleradiology Program (NTP) for interpretation. FINDINGS: [...] less likely. READING PHYSICIAN: Xavier Merrill MD -[phone] 07/14/2022 5:11 PDT [facility] National Teleradiology Program [phone] (For Medical Practitioner Use Only) Attention Patients / Veterans: If you have questions or concerns about these test results, please contact your ordering provider or primary care team. Primary Interpreting Staff: RADIOLOGY,OUTSIDE SERVICE, Staff Physician / RADIOLOGY,OUTSIDE SERVICE [facility] July 13, 2022 10:07 AM FOREARM LEFT 2 VIEWS: MARYJO WAGNER [id number] -1950 M [facility] Date: JULY 13, 2022@10:07 Req Phys: WHITNEY ANDERSON Pat Loc: [facility] EMERGENCY DEPT WALK-IN (Re Img Loc: MAIN X-RAY Service: Unknown (Case [id number] COMPLETE) FOREARM LEFT 2 VIEWS (RAD Detailed) CPT:20372 Proc Modifiers : LEFT Reason for Study: [...] pager listed below: User placing orders pager: [phone] LAST CREATININE 0.8 (05/10/22) Report Status: Verified Date Reported: JULY 13, 2022 Date Verified: JULY 13, 2022 Business Quality Assurance Analyst E-Sig:/SNAGITA/ALBINA COWAN MD, FACR, CCD Report: EXAMINATION: FOREARM [...] Staff: ALBINA COWAN MD, FACR, STAFF RADIOLOGIST (Business Quality Assurance Analyst) /BSF ALBINA COWAN [facility] July 13, 2022 10:07 AM HUMERUS LEFT MINIMUM 2 VIEWS: MARYJO WAGNER [id number] -1950 M Exm Date: JULY 13, 2022@10:07 Req Phys: WHITNEY ANDERSON Pat Loc: [facility] EMERGENCY DEPT WALK-IN (Re Img Loc: MAIN X-RAY Service: Unknown (Case [id number] COMPLETE) HUMERUS LEFT MINIMUM 2 VIEWS (RAD Detailed) CPT:79270 Proc Modifiers : LEFT Reason for Study: [...] pager listed below: User placing orders pager: [phone] LAST CREATININE 0.8 (05/10/22) Report Status: Verified Date Reported: JULY 13, 2022 Date Verified: JULY 13, 2022 Business Quality Assurance Analyst E-Sig:/SANGITA/ALBINA COWAN MD, FACR, CCD Report: [...] Staff: ALBINA COWAN MD, FACR, STAFF RADIOLOGIST (Business Quality Assurance Analyst) /ALBINA NATHAN [facility] July 13, 2022 10:07 AM ELBOW LEFT 3 OR MORE VIEWS: MARYJO WAGNER [id number] -1950 M Ex Date: JULY 13, 2022@10:07 Req Phys: WHITNEY ANDERSON Pat Loc: [facility] EMERGENCY DEPT WALK-IN (Re Img Loc: MAIN X-RAY Service: Unknown (Case [id number] COMPLETE) ELBOW LEFT 3 OR MORE VIEWS (RAD Detailed) CPT:25929 Proc Modifiers : LEFT Reason for Study: [...] pager listed below: User placing orders pager: [phone] LAST CREATININE 0.8 (05/10/22) Report Status: Verified Date Reported: JULY 13, 2022 Date Verified: JULY 13, 2022 Business Quality Assurance Analyst E-Sig:/ES/ALBINA COWAN MD, FACR, CCD Report: [...] Staff: ALBINA COWAN MD, FACR, STAFF RADIOLOGIST (Business Quality Assurance Analyst) /ALBINA NATHAN [facility] Pathology Reports: +/- 30 days of [...] the Encounter. The data comes from all [place] treatment facilities. Date/Time Pathology Report Provider Source July 13, 2022 04:06 PM LR SURGICAL PATHOL OGY REPORT: LOCAL TITLE: LR SURGICAL PATHOLOGY REPORT STANDARD TITLE: PATHOLOGY REPORT DATE OF NOTE: JULY 21, 2022@14:37:27 ENTRY DATE: JULY 21, 2022@14:37:27 AUTHOR: JIAN SANDOVAL EXP COSIGNER: URGENCY: STATUS: COMPLETED $APHDR Reporting Lab: [facility] [CLIA# [id number]] [place] [address] - - - - - - - [...] Performing Laboratory: Surgical Pathology Report Performed By: [facility] [CLIA# [id number]] [place] [address] $FTR - - - - - - [...] - - MARYJO WAGNER STANDARD FORM 515 ID:[id number] SEX:M :1950 AGE: 72 LOC:[facility] PATHOLOGY PRO FEE ADM:June DX:PATHOLOGIC FX LF HUMERUS PCP: Leif Balbuena MD /sangita/ JIAN SANDOVAL STAFF PATHOLOGIST, PATHOLOGY & LABORATORY MED [facility] Signed: 07/21/2022 14:37 JIAN SANDOVAL [facility] Encounter Notes: All associated encounter notes This section contains the clinical notes associated to the Encounter. Date/Time Encounter Note(s) Provider Source July 18, 2022 01:00 AM CRITICAL CARE UNIT NOTE: LOCAL TITLE: [facility] RESPIRATORY THERAPY FLOWSHEET STANDARD TITLE: CRITICAL CARE UNIT NOTE DATE OF NOTE: JULY 18, 2022@01:00 ENTRY DATE: JULY 19, 2022@15:16:43 AUTHOR: JAZ,JOHN-IdealSeatGodfrey EXP COSIGNER: URGENCY: STATUS: COMPLETED This is a place casey only. Please see [email or web address] to view document. /es/ CIS-ART[employer]mi SYSTEM ICU DOCUMENT IMPORT Signed: 07/19/2022 15:16 SYSTEM,CIS-YI [facility]
--- OUTSIDE RECORDS SUMMARY | 2023-03-24 08:45 | XMS_ITS ---
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 of Vetera [facility] Address [address] [place] [address] Support Name Relationship Address Phone DOREEN WAGNER Next of Kin [address] [place] [id number] DOREEN Emergency Contact [address] [place] [phone] Insurance Providers: All historical and current [...] Name Patient's Relationship to Policy [place] [employer] [facility] (WNR) MEDICARE ADVANTAGE [facility] ([facility] June 26, 2016 [id number] JOAN WAGNER KARSTEN PATIENT [employer] MCR (WNR) MEDICARE ADVANTAGE [facility] ([facility] June 26, 2016 [id number] [phone] JOAN WAGNER KARSTEN PATIENT [employer] MCR (WNR) MEDICARE ADVANTAGE [facility] (R) June 26, 2016 [id number] JOAN WAGNER PATIENT Selected Encounter This section includes the information on record at MD for the Encounter. Date/Time Encounter Type Encounter Description Reason Provider Source July 19, 2022 06:09 PM Inpatient Visit DAILY HOSPITALIZATION DATA ICD-10-CM Z71.9 Counseling, unspecified FARHAT TORRES Encounter Template Text not used by MD Assessments - Encounter Diagnoses This section includes the primary and secondary diagnoses documented for the Encounter. Date/Time Primary/Secondary Diagnosis Diagnosis Name Provider Source July 19, 2022 06:09 PM PRIMARY Counseling, unspecified FARHAT TORRES [facility] Plan of Treatment: Future Appointments (+ 6 months) and Future Tests (+/- 45 days) The Plan of Treatment section includes future care activities for the patient [facility] This section includes future appointments and future orders which are active, pending or scheduled. Future Appointments This section includes appointments that were scheduled to occur 6 months from the date of the Encounter, up to a maximum of 20 appointments. The data comes from all [facility]. Appointment Date/Time Appointment Type Appointme nt Facility Name Jul 28, 2022 10:45 AM AMBULATORY - MEDICINE [facility] Aug 13, 2022 06:13 PM AMBULATORY - MEDICINE [facility] Aug 23, 2022 09:30 AM AMBULATORY - SURGERY [facility] Aug 23, 2022 09:45 AM AMBULATORY - NONE [facility] Aug 23, 2022 10:30 AM AMBULATORY - MEDICINE [facility] Aug 23, 2022 10:31 AM AMBULATORY - MEDICINE [facility] Sep 06, 2022 10:15 AM AMBULATORY - SURGERY [facility] Oct 25, 2022 07:00 AM [facility] Oct 25, 2022 07:30 AM AMBULATORY - SURGERY [facility] Oct 25, 2022 09:00 AM AMBULATORY SURGERY [facility] Active, Pending, and Scheduled Orders This section includes a listing of several types of active, pending, and scheduled orders, including clinic medications orders, diagnostic test orders, procedure orders and consult orders; where the start date of the order is 45 days before the date of the Encounter or 45 days after the date of theEncounter. The data comes from all [facility]. Test Date/Time Test Type Test Details Facility Name Jun 12, 2022 12:00 AM Laboratory - Chemistry Order CBC & DIFF BLOOD ONCO SP ONCE [facility] Jun 12, 2022 12:00 AM Laboratory - Chemistry Order COMPREHENSIVE METABOLIC PANEL+MG PLASMA ONCO SP ONCE [facility] Jun 12, 2022 12:00 AM Laboratory - Chemistry Order TSH W/REFLEX TO FREE T4 PLASMA ONCO SP ONCE [facility] July 14, 2022 12:00 AM Laboratory - Blood Bank Order ABO/RH - LAB BLOOD WC [facility] July 14, 2022 02:05 PM Laboratory - Blood Bank Order TYPE & SCREEN - LAB BLOOD [facility] Aug 07, 2022 11:23 AM Laboratory - Chemistry Order DRUG SCREEN PANEL,URINE URINE WC ONCE [facility] Aug 23, 2022 10:47 AM Laboratory - Chemistry Order URINALYSIS URINE ER STAT [facility] Lab Results: +/- 30 days of the encounter This section includes the Chemistry and Hematology Lab Results on record with MD for the patient. Radiology Reports and Pathology Reports are provided separately, in subsequent sections. Lab Results This section contains the Chemistry/Hematology Results that were resulted 30 days before or 30 daysafter the date of the Encounter. Date/Time Source Result Type Result - Unit Interpretation Reference Range Comment July 19, 2022 04:40 PM [facility] FINGERSTICK GLUCOSE Specimen Type: BLOOD Comment: Save Result Nurse Notified Ordering Provider: MACKENZIE COTTER Report Released Date/Time: July 19, 2022 05:00 PM Reporting Lab: [facility] [address] Performing Lab: [facility] [address] FINGERSTICK GLUCOSE 132 70-100 July 19, 2022 07:13 AM [facility] COMPREHENSIVE METABOLIC PANEL+MG Specimen Type: PLASMA No comment entered. Ordering Provider: MACKENZIE COTTER Report Released Date/Time: July 18, 2022 05:40 PM Reporting Lab: [facility] [address] Performing Lab: [facility] [address] CREATININE 0.9 0.7-1.2 UREA NITROGEN 24 8-26 [...] See_Commen t July 19, 2022 07:13 AM [facility] IRON GROUP Specimen Type: SERUM No comment entered. Ordering Provider: MACKENZIE COTTER Report Released Date/Time: July 18, 2022 05:40 PM Reporting Lab: [facility] [address] Performing Lab: [facility] [address] IRON 28 L 65-175 TIBC,CALCULATE D 223 L 250-425 FERRITIN 73.7 21.8-274.7 IRON SATURATION 13 L 20-50 TRANSFERRIN 178 163-382 July 19, 2022 07:13 AM [facility] CBC Specimen Type: BLOOD No comment entered. Ordering Provider: MACKENZIE COTTER Report Released Date/Time: July 18, 2022 05:40 PM Reporting Lab: [facility] [address] Performing Lab: [facility] [address] WBC 7.73 4.0-11.0 RBC 2.42 L 4.6-6.2 HGB 8.2 L 13.5-17.9 HCT 23.8 L 41-54 MCV 98.3 80-100 MCH 33.9 H 27-33 MCHC 34.5 32.0-37.5 PLT 155 150-400 MPV 9.6 7.4-10.4 RDW 13.5 11.5-14.5 July 19, 2022 05:44 AM [facility] FINGERSTICK GLUCOSE Specimen Type: BLOOD Comment: Save Result Nurse Notified Ordering Provider: MACKENZIE COTTER Report Released Date/Time: July 19, 2022 11:54 AM Reporting Lab: [facility] [address] Performing Lab: [facility] [address] FINGERSTICK GLUCOSE 137 70-100 July 18, 2022 10:51 PM [facility] FINGERSTICK GLUCOSE Specimen Type: BLOOD Comment: Save Result Nurse Notified Ordering Provider: MACKENZIE COTTER Report Released Date/Time: July 18, 2022 11:06 PM Reporting Lab: [facility] [address] Performing Lab: [facility] [address] FINGERSTICK GLUCOSE 163 70-100 July 17, 2022 06:51 AM [facility] BASIC METABOLIC PANEL+MG Specimen Type: PLASMA No comment entered. Ordering Provider: DANG VALLE Report Released Date/Time: July 16, 2022 09:37 AM Reporting Lab: [facility] [address] Performing Lab: [facility] [address] CREATININE 0.8 0.7-1.2 UREA NITROGEN 23 8-26 GLUCOSE 107 H 70-100 SODIUM 139 136-145 POTASSIUM 3.9 3.5-5.1 CHLORIDE 106 98-107 CO2 28 22-29 CALCIUM 9.1 8.4-10.2 MAGNESIUM 1.9 1.6-2.6 ANION GAP 5 5-15 .CREAT EGFR(CKD-EPI) >90 See_Commen t July 17, 2022 06:51 AM [facility] PROTHROMBIN TIME/INR Specimen Type: PLASMA No comment entered. Ordering Provider: DANG VALLE Report Released Date/Time: July 16, 2022 09:37 AM Reporting Lab: [facility] [address] Performing Lab: [facility] [address] .INR 1.0 0.8-1.1 .PT 11.5 9.4-12.5 July 17, 2022 06:51 AM [facility] CBC Specimen Type: BLOOD No comment entered. Ordering Provider: DANG VALLE R Report Released Date/Time: July 16, 2022 09:37 AM Reporting Lab: [facility] [address] Performing Lab: [facility] [address] WBC 6.05 4.0-11.0 RBC 3.77 L 4.6-6.2 HGB 12.7 L 13.5-17.9 HCT 36.0 L 41-54 MCV 95.5 80-100 MCH 33.7 H 27-33 MCHC 35.3 32.0-37.5 PLT 179 150-400 MPV 9.4 7.4-10.4 RDW 13.2 11.5-14.5 July 13, 2022 11:22 AM [facility] COVID-19 AND FLU/RSV DIAG PANEL(CEPHEID) Specimen Typ e: NASOPHARYNGEAL Comment: Cepheid GeneXpert (618) Ordering Provider: WHITNEY ANDERSON Report Released Date/Time: July 13, 2022 11:04 AM Reporting Lab: [facility] [address] Performing Lab: [facility] [address] COVID-19 (CEPHEID) Not Detected Not Detected INFLUENZA A (PCR) Not Detected Not Detected INFLUENZA B (PCR) Not Detected Not Detected RSV (PCR) Not Detected Not Detected July 13, 2022 11:00 AM [facility] C-REACTIVE PROTEIN Specimen Type: SERUM Comment: Automated Differential Performed Ordering Provider: WHITNEY ANDERSON Report Released Date/Time: July 13, 2022 11:04 AM Reporting Lab: [facility] [address] Performing Lab: [facility] [address] C-REACTIVE PROTEIN 1.17 <5.00 July 13, 2022 11:00 AM [facility] PROTHROMBIN TIME/INR Specimen Type: PLASMA No comment entered. Ordering Provider: WHITNEY ANDERSON Report Released Date/Time: July 13, 2022 11:04 AM Reporting Lab: [facility] [address] Performing Lab: [facility] [address] .INR 0.9 0.8-1.1 .PT 11.1 9.4-12.5 July 13, 2022 11:00 AM [facility] SED RATE Specimen Type: BLOOD No comment entered. Ordering Provider: WHITNEY ANDERSON Report Released Date/Time: July 13, 2022 11:04 AM Reporting Lab: [facility] [address] Performing Lab: [facility] [address] SED RATE 10 5-15 July 13, 2022 11:00 AM [facility] CBC & DIFF Specimen Type: BLOOD Comment: Automated Differential Performed Ordering Provider: WHITNEY ANDERSON Report Released Date/Time: July 13, 2022 11:04 AM Reporting Lab: [facility] [address] Performing Lab: [facility] [address] WBC 8.82 4.0-11.0 RBC 3.89 L 4.6-6.2 [...] 0.03 0-0.1 July 13, 2022 11:00 AM [facility] COMPREHENSIVE METABOLIC PANEL+MG Specimen Type: PLASMA Comment: Automated Differential Performed Ordering Provider: WHITNEY ANDERSON Report Released Date/Time: July 13, 2022 11:04 AM Reporting Lab: [facility] [address] Performing Lab: [facility] [address] CREATININE 1.0 0.7-1.2 UREA NITROGEN 16 8-26 [...] 137/75 mm[Hg] 18 /min 91 % 0 [facility] July 19, 2022 10:50 PM 7 [place] [facility] July 19, 2022 09:57 PM 8 [place] [facility] July 19, 2022 08:30 PM 7 [place] [facility] July 19, 2022 08:29 PM 7 [place] [facility] Social History: Smoking Status (Most current) and Tobacco Use (All prior to encounter date) This section includes the most current, and the historical, smoking and tobacco- related health factors from the MD facility where the Encounter took place. Current Smoking Status This section includes the most current smoking, or tobacco-related health factor, from the MD facility where the Encounter took place. Date/Time Current Smoking Status Comment Facil ity May 10, 2022 09:15 AM VA-TOBACCO QUIT 15 YRS OR MORE [facility] Tobacco Use History This section includes a history of the smoking, or tobacco-related health factors, that were collected on or before the date of the Encounter. The data comes from the MD facility where the Encounter took place. Date/Time Smoking Status/Tobacco Use Comment F acility May 10, 2022 09:15 AM MD-TOBACCO QUIT 15 YRS OR MORE [facility] May 11, 2021 09:15 AM VA-TOBACCO FORMER USER [facility] May 11, 2021 09:15 AM VA-TOBACCO QUIT 15 YRS OR MORE [facility] Nov 22, 2018 01:36 PM VA-TOBACCO NEVER USED [facility] Nov 12, 2017 07:35 AM FORMER TOBACCO USER 7Y OR GREATE R [facility] Nov 06, 2016 09:05 AM FORMER TOBACCO USER 7Y OR GREATE R [facility] Sep 27, 2015 09:42 AM FORMER TOBACCO USER 7Y OR GREATE R [facility] Sep 25, 2014 07:55 AM FORMER TOBACCO USER 7Y OR GREATE R [facility] Sep 08, 2013 07:48 AM FORMER TOBACCO USER 7Y OR GREATE R [facility] July 09, 2012 09:20 AM FORMER TOBACCO USE >1Y <7Y [facility] Jun 06, 2011 07:53 AM FORMER TOBACCO USE >1Y <7Y [facility] Sep 09, 2009 03:03 PM FORMER TOBACCO USE >1Y <7Y [facility] Aug 11, 2008 01:06 PM FORMER TOBACCO USE <1Y [facility] Sep 19, 2007 02:52 PM CURRENT TOBACCO USER [facility] Sep 03, 2006 03:32 PM CURRENT TOBACCO USER [facility] Advance Directives: All historical and current Section Date Range: From patient's date of to the date document was created. This section includes ALL of a patient's completed or amended MD Advance and Rescinded Directives. The entries below indicate that a directive exists for the patient, but an actual copy is not included with this document. The data comes from all MD facilities. Date Advance Directives Provider Source Mar 18, 2003 ADVANCE DIRECTIVE MELGARFARHAT [facility] Radiology Reports: +/- 30 days [...] the Encounter. The data comes from all MD treatment facilities. Date/Time Radiology Report Provider Source July 20, 2022 07:50 AM CHEST 1 VIEW: MARYJO WAGNER [id number] -1950 M Exm Date: JULY 20, 2022@07:50 Req Phys: MACKENZIE COTTER Pat Loc: 07-20-2022@08:26 Img Loc: MAIN X-RAY Service: PRIMARY CARE - MED OFFICE (Case [id number] COMPLETE) CHEST 1 VIEW (RAD Detailed) CPT:99906 Proc Modifiers : PORTABLE EXAM Reason for Study: see below. thanks. Clinical History: Phelps IS NOT under investigation for COVID-19 or is COVID-19 negative Please further evaluate for acute airspace disease given o2 requirement. Thanks. Responsible provider name and phone number to notify for critical findings if other than user placing the order and pager listed below: User placing orders pager: [phone] same LAST CREATININE 0.9 (07/19/22) Report Status: Verified Date Reported: JULY 20, 2022 Date Verified: JULY 20, 2022 Accounting Policy Consultant E-Sig:/ES/JAMIE MIGUEL MD Report: EXAM: CHEST 1 [...] pager listed below: User placing orders pager: [phone] same LAST CREATININE 0. COMPARISON: Chest CT [...] Interpreting Staff: JAMIE MIGUEL MD, RADIOLOGIST (Accounting Policy Consultant) /JAMIE FRANCES [facility] July 18, 2022 12:59 PM ELBOW LEFT 2 VIEWS: MARYJO WAGNER [id number] -1950 M Exm Date: JULY 18, 2022@12:59 Req Phys: LEIF BALBUENA Loc: OR-PACU/07-18-2022@13:59 Img Loc: MAIN X-RAY Service: ZZSURGICAL SERVICE (Case [id number] COMPLETE) ELBOW LEFT 2 VIEWS (RAD Detailed) CPT:34580 Proc Modifiers : PORTABLE EXAM, OPERATING ROOM EXAM Reason for Study: post-op Clinical History: post-op Report Status: Verified Date Reported: JULY 18, 2022 Date Verified: JULY 18, 2022 Accounting Policy Consultant E-Sig:/ES/JAKUB LEE MD Report: EXAM: ELBOW LEFT [...] Interpreting Staff: JAKUB LEE MD, RADIOLOGIST (Accounting Policy Consultant) /JAKUB LUCERO [facility] July 18, 2022 07:30 AM FLUORO UP TO 1 HR PHYSICIAN TIME: MARYJO WAGNER [id number] -1950 M Exm Date: JULY 18, 2022@07:30 Req Phys: LEIF BALBUENA Loc: OR-PACU/07-18-2022@13:14 Img Loc: MAIN X-RAY Service: PRIMARY CARE - [facility] OFFICE (Case [id number] COMPLETE) FLUORO UP TO 1 HR PHYSICIAN TIME (RAD Detailed) CPT:58803 Proc Modifiers : PORTABLE EXAM, OPERATING ROOM EXAM, LEFT Reason for Study: Left distal humerous ORIF Clinical History: OR 7 Pathologic distal humeral shaft fracture Responsible provider name and phone number to notify for critical findings if other than user placing the order and pager listed below: User placing orders pager: Henry BALBUENA [phone] LAST CREATININE 0.8 (07/17/22) Report Status: Electronically Filed Date Reported: JULY 18, 2022 Report: Impression: Please see the full report for this procedure in [facility] patient progress notes. Fluoro guidance was provided during this procedure, but the study was not reviewed or verified by a [facility] radiologist. The radiation exposure dose has been recorded in the patient's chart. If you are unable to view this data, please contact the Imaging Department. VERIFIED BY: / *ELECTRONICALLY FILED* [facility] July 17, 2022 03:28 PM ABDOMINAL AORTOGRAM (P): MARYJO WAGNER [id number] -1950 M Exm Date: JULY 17, 2022@15:28 Req Phys: MALCOM LANGLEY Loc: 07-17-2022@15:54 Img Loc: INTERVENTIONAL RADIOLOGY Service: PRIMARY CARE - MED OFFICE (Case [id number] COMPLETE) ANGIOGRAPHY EXTREMITY UNILAT S&I (ANI Detailed) CPT:89592 Reason for Study: codes (Case 528 COMPLETE) IR AORTOGRAPHY ABDOMINAL W/O RUNO(ANI Detailed) CPT:19061 (Case 529 COMPLETE) IR FOREIGN BODY REMOVAL INTRAVASC(ANI Detailed) CPT:99710 (Case 532 COMPLETE) IR NEEDLE/INTRACATH PLACEMENT EXT(ANI Detailed) CPT:96348 (Case 533 COMPLETE) IR PLACEMENT OCCLUSIVE DEVICE SAM(ANI Detailed) CPT:G0269 Clinical History: codes Report Status: Verified Date Reported: JULY 17, 2022 Date Verified: JULY 17, 2022 Accounting Policy Consultant E-Sig:/ES/MALCOM LANGLEY MD Report: RADIOLOGIST: Malcom Langley [...] angiogram and runoff. 12. Closure of right BRICK PICKER with Angio-Seal device. HISTORY: Metastatic renal cell [...] Sheath removed over guidewire and a 5 grenadian vascular sheath advanced over guidewire into the artery. An H1 catheter was advanced along with the guidewire into the thoracic arch and the left subclavian artery was selected. Catheter and the guidewire were advanced into the left brachial artery. The 5 Polish sheath was exchanged for a 6 Polish sheath that was advanced into the left [...] arteries. Sheath and catheters were removed and BRICK PICKER arteriotomy was closed using Angioseal. There is patent hemostasis. No bleeding or hematoma noted. Sterile dressing applied. 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 Primary Interpreting Staff: MALCOM LANGLEY MD, INTERVENTIONAL RADIOLOGIST (Hugo) /MALCOM HE [facility] July 17, 2022 07:30 AM RENAL ARTERY EMBOLIZATION (P): MARYJO WAGNER [id number] -1950 M Exm Date: JULY 17, 2022@07:30 Req Phys: WESTON VASQUEZ Pat Loc: 07-17-2022@15:46 Img Loc: INTERVENTIONAL RADIOLOGY Service: PRIMARY CARE - MED OFFICE (Case 130 COMPLETE) IR TRANSCATH EMBOLIZATION W/ANGIO(ANI Detailed) CPT:52019 Reason for Study: embolization of RCC mets to left humerus (Case 131 COMPLETE) IR ARTERIAL EMBOLIZATION OTHER TH(ANI Detailed) CPT:73732 (Case 132 COMPLETE) IR US GUIDANCE VASCULAR ACCESS (ANI Detailed) CPT:52596 Clinical History: IS NOT under investigation for [...] pager listed below: User placing orders pager: [phone] LAST CREATININE 1.0 (07/13/22) Report Status: Verified Date Reported: JULY 17, 2022 Date Verified: JULY 17, 2022 Accounting Policy Consultant E-Sig:/ES/MALCOM LANGLEY MD Report: RADIOLOGIST: Maclom Langley [...] angiogram and runoff. 12. Closure of right BRICK PICKER with Angio-Seal device. HISTORY: Metastatic renal cell [...] Sheath removed over guidewire and a 5 grenadian vascular sheath advanced over guidewire into the artery. An H1 catheter was advanced along with the guidewire into the thoracic arch and the left subclavian artery was selected. Catheter and the guidewire were advanced into the left brachial artery. The 5 Polish sheath was exchanged for a 6 Polish sheath that was advanced into the left [...] arteries. Sheath and catheters were removed and BRICK PICKER arteriotomy was closed using Angioseal. There is patent hemostasis. No bleeding or hematoma noted. Sterile dressing applied. 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 Primary Interpreting Staff: MALCOM LANGLEY MD, INTERVENTIONAL RADIOLOGIST (Accounting Policy Consultant) /MALCOM HE [facility] July 14, 2022 06:44 AM HUMERUS LEFT MINIMUM 2 VIEWS: MARYJO WAGNER [id number] -1950 M Ex Date: JULY 14, 2022@06:44 Req Phys: PEDROHERBERTJAIRO Chinchilla Loc: 07-14-2022@07:13 Img Loc: MAIN X-RAY Service: PRIMARY CARE - MED OFFICE (Case [id number] COMPLETE) HUMERUS LEFT MINIMUM 2 VIEWS (RAD Detailed) CPT:19171 Reason for Study: post reduction Clinical History: Report Status: Verified Date Reported: JULY 14, 2022 Date Verified: JULY 14, 2022 Accounting Policy Consultant E-Sig: Report: HUMERUS LEFT MINIMUM 2 VIEWS HISTORY: post reduction COMPARISON: 07/13/2022 TECHNIQUE: 2 view(s) of the humerus, submitted to the MD National Teleradiology Program (NTP) for interpretation. FINDINGS: [...] less likely. READING PHYSICIAN: Xavier Merrill MD -[id number] 07/14/2022 5:11 PDT [facility] National Teleradiology Program [phone] (For Medical Practitioner Use Only) Attention Patients / Veterans: If you have questions or concerns about these test results, please contact your ordering provider or primary care team. Primary Interpreting Staff: RADIOLOGY,OUTSIDE SERVICE, Staff Physician / RADIOLOGY,OUTSIDE SERVICE [facility] July 13, 2022 10:07 AM HUMERUS LEFT MINIMUM 2 VIEWS: MARYJO WAGNER [id number] -1950 M Exm Date: JULY 13, 2022@10:07 Req Phys: WHITNEY ANDERSON Pat Loc: [facility] EMERGENCY DEPT WALK-IN (Re Img Loc: MAIN X-RAY Service: Unknown (Case [id number] COMPLETE) HUMERUS LEFT MINIMUM 2 VIEWS (RAD Detailed) CPT:64054 Proc Modifiers : LEFT Reason for Study: [...] pager listed below: User placing orders pager: [phone] LAST CREATININE 0.8 (05/10/22) Report Status: Verified Date Reported: JULY 13, 2022 Date Verified: JULY 13, 2022 Accounting Policy Consultant E-Sig:/ES/ALBINA COWAN MD, FACR, CCD Report: EXAMINATION: [...] ALBINA COWAN MD, FACR, STAFF RADIOLOGIST (Accounting Policy Consultant) /BSF ALBINA COWAN [facility] July 13, 2022 10:07 AM ELBOW LEFT 3 OR MORE VIEWS: MARYJO WAGNER [id number] -1950 M Ex Date: JULY 13, 2022@10:07 Req Phys: WHITNEY ANDERSON Pat Loc: [facility] EMERGENCY DEPT WALK-IN (Re Img Loc: MAIN X-RAY Service: Unknown (Case [id number] COMPLETE) ELBOW LEFT 3 OR MORE VIEWS (RAD Detailed) CPT:02751 Proc Modifiers : LEFT Reason for Study: L arm pain Clinical History: [facility]helps IS NOT under investigation for COVID-19 or is COVID-19 negative Atraumatic left upper extremity pain that is located midshaft humerus distally to the mid forearm. Clinical concern for dislocation versus fracture versus bone mets Responsible provider name and phone number to notify for critical findings if other than user placing the order and pager listed below: User placing orders pager: [phone] LAST CREATININE 0.8 (05/10/22) Report Status: Verified Date Reported: JULY 13, 2022 Date Verified: JULY 13, 2022 Accounting Policy Consultant E-Sig:/ES/ALBINA COWAN MD, FACR, CCD Report: EXAMINATION: [...] ALBINA COWAN MD, FACR, STAFF RADIOLOGIST (Accounting Policy Consultant) /ALBINA NATHAN [facility] July 13, 2022 10:07 AM FOREARM LEFT 2 VIEWS: MARYJO WAGNER [id number] -1950 M Ex Date: JULY 13, 2022@10:07 Req Phys: MONICAWHITNEY TOMAS Chinchilla Loc: [facility] EMERGENCY DEPT WALK-IN (Re Img Loc: MAIN X-RAY Service: Unknown (Case [id number] COMPLETE) FOREARM LEFT 2 VIEWS (RAD Detailed) CPT:89495 Proc Modifiers : LEFT Reason for Study: [...] pager listed below: User placing orders pager: [phone] LAST CREATININE 0.8 (05/10/22) Report Status: Verified Date Reported: JULY 13, 2022 Date Verified: JULY 13, 2022 Accounting Policy Consultant E-Sig:/ES/ALBINA COWAN MD, FACR, CCD Report: EXAMINATION: [...] ALBINA COWAN MD, FACR, STAFF RADIOLOGIST (Accounting Policy Consultant) /ALBINA NATHAN [facility] Pathology Reports: +/- 30 days of the [...] the Encounter. The data comes from all [facility] treatment facilities. Date/Time Pathology Report Provider Source July 13, 2022 04:06 PM LR SURGICAL PATHOL OGY REPORT: LOCAL TITLE: LR SURGICAL PATHOLOGY REPORT STANDARD TITLE: PATHOLOGY REPORT DATE OF NOTE: JULY 21, 2022@14:37:27 ENTRY DATE: JULY 21, 2022@14:37:27 AUTHOR: JIAN SANDOVAL EXP COSIGNER: URGENCY: STATUS: COMPLETED $APHDR Reporting Lab: [facility] [CLIA# [id number]] [place] [address] - - - - - - - [...] SANDOVAL STAFF PATHOLOGIST, PATHOLOGY & LABORATORY MED [facility] Signed July 21, 2022@14:37 Performing Laboratory: Surgical Pathology Report Performed By: [facility] [CLIA# [id number]] [place] [address] $FTR - - - - - - [...] - - MARYJO WAGNER STANDARD FORM 515 ID:[id number] SEX:M :[id number] AGE: 72 LOC:[facility] PATHOLOGY PRO FEE ADM:June DX:PATHOLOGIC FX LF HUMERUS PCP: Leif Balbuena MD /sangita/ JIAN SNADOVAL STAFF PATHOLOGIST, PATHOLOGY & LABORATORY MED [facility] Signed: 07/21/2022 14:37 JIAN SANDOVAL [facility]
--- OUTSIDE RECORDS SUMMARY | 2023-03-24 08:46 | XMS_ITS ---
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 of Vetera [facility] Address [address] [place] [address] Support Name Relationship Address Phone DOREEN WAGNER Next of Kin [phone] [place] [phone] DOREEN Emergency Contact [address] [place] [phone] Insurance Providers: All historical and current [...] Name Patient's Relationship to Policy [place] [employer] [facility] (WNR) MEDICARE ADVANTAGE [facility] (R) June 26, 2016 [id number] JOAN WAGNER KARSTEN PATIENT [employer] MCR (WNR) MEDICARE ADVANTAGE [facility] (WNR) June 26, 2016 [id number] JOAN WAGNER KARSTEN PATIENT [employer] MCR (WNR) MEDICARE ADVANTAGE [facility] (WNR) June 26, 2016 [id number] JOAN WAGNER PATIENT Selected Encounter This section includes the information on record at [place] for the Encounter. Date/Time Encounter Type Encounter Description Reason Pro vider Source July 20, 2022 01:27 PM Inpatient Visit DAILY HOSPITALIZATION DATA [facility] Encounter Template Text not used by [place] Plan of Treatment: Future Appointments (+ 6 [...] 20 appointments. The data comes from all [facility]. Appointment Date/Time Appointment Type Appointme nt Facility Name Jul 28, 2022 10:45 AM [facility] Aug 13, 2022 06:13 PM AMBULATORY - MEDICINE [facility] Aug 23, 2022 09:30 AM AMBULATORY - SURGERY [facility] Aug 23[facility] 2022 09:45 AM [facility] Aug 23, 2022 10:30 AM AMBULATORY - MEDICINE [facility] Aug 23, 2022 10:31 AM AMBULATORY - MEDICINE [facility] Sep 06, 2022 10:15 AM AMBULATORY - SURGERY [facility] Oct 25, 2022 07:00 AM [facility] Oct 25, 2022 07:30 AM AMBULATORY - SURGERY [facility] Oct 25, 2022 09:00 AM AMBULATORY - SURGERY [facility] Active, Pending, and Scheduled Orders This section includes a listing of several types of active, pending, and scheduled orders, including clinic medications orders, diagnostic test orders, procedure orders and consult orders; where the start date of the order is 45 days before the date of the Encounter or 45 days after the date of theEncounter. The data comes from all [facility]. Test Date/Time Test Type Test Details Facility Name Jun 12, 2022 12:00 AM Laboratory - Chemistry Order COMPREHENSIVE METABOLIC PANEL+MG PLASMA ONCO SP ONCE [facility] Jun 12, 2022 12:00 AM Laboratory - Chemistry Order CBC & DIFF BLOOD ONCO SP [facility] Jun 12, 2022 12:00 AM Laboratory - Chemistry Order TSH W/REFLEX TO FREE T4 PLASMA ONCO SP ONCE [facility] July 14, 2022 12:00 AM Laboratory - Blood Bank Order ABO/RH - LAB BLOOD [facility] July 14, 2022 02:05 PM Laboratory - Blood Bank Order TYPE & SCREEN - LAB BLOOD [facility] Aug 07, 2022 11:23 AM Laboratory - Chemistry Order DRUG SCREEN PANEL,URINE URINE [facility] Aug 23, 2022 10:47 AM Laboratory - Chemistry Order URINALYSIS URINE ER STAT [facility] [...] Range Comment July 19, 2022 04:40 PM [facility] FINGERSTICK GLUCOSE Specimen Type: BLOOD Comment: Save Result Nurse Notified Ordering Provider: MACKENZIE COTTER Report Released Date/Time: July 19, 2022 05:00 PM Reporting Lab: [facility] [address] Performing Lab: [facility] [address] FINGERSTICK GLUCOSE 132 70-100 July 19, 2022 07:13 AM [facility] COMPREHENSIVE METABOLIC PANEL+MG Specimen Type: PLASMA No comment entered. Ordering Provider: MACKENZIE COTTER Report Released Date/Time: July 18, 2022 05:40 PM Reporting Lab: [facility] [address] Performing Lab: [facility] [address] CREATININE 0.9 0.7-1.2 UREA NITROGEN 24 8-26 [...] See_Commen t July 19, 2022 07:13 AM [facility] IRON GROUP Specimen Type: SERUM No comment entered. Ordering Provider: MACKENZIE COTTER Report Released Date/Time: July 18, 2022 05:40 PM Reporting Lab: [facility] [address] Performing Lab: [facility] [address] IRON 28 L 65-175 TIBC,CALCULATE D 223 L 250-425 FERRITIN 73.7 21.8-274.7 IRON SATURATION 13 L 20-50 TRANSFERRIN 178 163-382 July 19, 2022 07:13 AM [facility] CBC Specimen Type: BLOOD No comment entered. Ordering Provider: MACKENZIE COTTER Report Released Date/Time: July 18, 2022 05:40 PM Reporting Lab: [facility] [address] Performing Lab: [facility] [address] WBC 7.73 4.0-11.0 RBC 2.42 L 4.6-6.2 HGB 8.2 L 13.5-17.9 HCT 23.8 L 41-54 MCV 98.3 80-100 MCH 33.9 H 27-33 MCHC 34.5 32.0-37.5 PLT 155 150-400 MPV 9.6 7.4-10.4 RDW 13.5 11.5-14.5 July 19, 2022 05:44 AM [facility] FINGERSTICK GLUCOSE Specimen Type: BLOOD Comment: Save Result Nurse Notified Ordering Provider: MACKENZIE COTTER Report Released Date/Time: July 19, 2022 11:54 AM Reporting Lab: [facility] [address] Performing Lab: [facility] [address] FINGERSTICK GLUCOSE 137 70-100 July 18, 2022 10:51 PM [facility] FINGERSTICK GLUCOSE Specimen Type: BLOOD Comment: Save Result Nurse Notified Ordering Provider: MACKENZIE COTTER Report Released Date/Time: July 18, 2022 11:06 PM Reporting Lab: [facility] [address] Performing Lab: [facility] [address] FINGERSTICK GLUCOSE 163 70-100 July 17, 2022 06:51 AM [facility] BASIC METABOLIC PANEL+MG Specimen Type: PLASMA No comment entered. Ordering Provider: DANG VALLE Report Released Date/Time: July 16, 2022 09:37 AM Reporting Lab: [facility] [address] Performing Lab: [facility] [address] CREATININE 0.8 0.7-1.2 UREA NITROGEN 23 8-26 GLUCOSE 107 H 70-100 SODIUM 139 136-145 POTASSIUM 3.9 3.5-5.1 CHLORIDE 106 98-107 CO2 28 22-29 CALCIUM 9.1 8.4-10.2 MAGNESIUM 1.9 1.6-2.6 ANION GAP 5 5-15 .CREAT EGFR(CKD-EPI) >90 See_Commen t July 17, 2022 06:51 AM [facility] PROTHROMBIN TIME/INR Specimen Type: PLASMA No comment entered. Ordering Provider: DANG VALLE R Report Released Date/Time: July 16, 2022 09:37 AM Reporting Lab: [facility] [address] Performing Lab: [facility] [address] .INR 1.0 0.8-1.1 .PT 11.5 9.4-12.5 July 17, 2022 06:51 AM [facility] CBC Specimen Type: BLOOD No comment entered. Ordering Provider: DANG VALLE R Report Released Date/Time: July 16, 2022 09:37 AM Reporting Lab: [facility] [address] Performing Lab: [facility] [address] WBC 6.05 4.0-11.0 RBC 3.77 L 4.6-6.2 HGB 12.7 L 13.5-17.9 HCT 36.0 L 41-54 MCV 95.5 80-100 MCH 33.7 H 27-33 MCHC 35.3 32.0-37.5 PLT 179 150-400 MPV 9.4 7.4-10.4 RDW 13.2 11.5-14.5 July 13, 2022 11:22 AM [facility] COVID-19 AND FLU/RSV DIAG PANEL(CEPHEID) Specimen Typ e: NASOPHARYNGEAL Comment: Cepheid GeneXpert (618) Ordering Provider: WHITNEY ANDERSON Report Released Date/Time: July 13, 2022 11:04 AM Reporting Lab: [facility] [address] Performing Lab: [facility] [address] COVID-19 (CEPHEID) Not Detected Not Detected INFLUENZA A (PCR) Not Detected Not Detected INFLUENZA B (PCR) Not Detected Not Detected RSV (PCR) Not Detected Not Detected July 13, 2022 11:00 AM [facility] C-REACTIVE PROTEIN Specimen Type: SERUM Comment: Automated Differential Performed Ordering Provider: WHITNEY ANDERSON Report Released Date/Time: July 13, 2022 11:04 AM Reporting Lab: [facility] [address] Performing Lab: [facility] [address] C-REACTIVE PROTEIN 1.17 <5.00 July 13, 2022 11:00 AM [facility] PROTHROMBIN TIME/INR Specimen Type: PLASMA No comment entered. Ordering Provider: WHITNEY ANDERSON Report Released Date/Time: July 13, 2022 11:04 AM Reporting Lab: [facility] [address] Performing Lab: [facility] [address] .INR 0.9 0.8-1.1 .PT 11.1 9.4-12.5 July 13, 2022 11:00 AM [facility] SED RATE Specimen Type: BLOOD No comment entered. Ordering Provider: WHITNEY ANDERSON Report Released Date/Time: July 13, 2022 11:04 AM Reporting Lab: [facility] [address] Performing Lab: [facility] [address] SED RATE 10 5-15 July 13, 2022 11:00 AM [facility] CBC & DIFF Specimen Type: BLOOD Comment: Automated Differential Performed Ordering Provider: WHITNEY ANDERSON Report Released Date/Time: July 13, 2022 11:04 AM Reporting Lab: [facility] [address] Performing Lab: [facility] [address] WBC 8.82 4.0-11.0 RBC 3.89 L 4.6-6.2 [...] 0.03 0-0.1 July 13, 2022 11:00 AM [facility] COMPREHENSIVE METABOLIC PANEL+MG Specimen Type: PLASMA Comment: Automated Differential Performed Ordering Provider: WHITNEY ANDERSON Report Released Date/Time: July 13, 2022 11:04 AM Reporting Lab: [facility] [address] Performing Lab: [facility] [address] CREATININE 1.0 0.7-1.2 UREA NITROGEN 16 8-26 [...] Height Weight Body Mass Index Source July 20, 2022 11:22 PM 98.1 F 62 /min 125/74 mm[Hg] 18 /min 95 % 0 [facility] July 20, 2022 07:41 PM 97.8 F 70 /min 117/72 mm[Hg] 18 /min 96 % 1 [facility] July 20, 2022 04:02 PM 97.6 F 64 /min 112/69 mm[Hg] 18 /min 93 % 0 [facility] July 20, 2022 01:00 PM 5 [facility] July 20, 2022 12:02 PM 8 [facility] Social History: Smoking Status (Most current) and [...] AM VA-TOBACCO QUIT 15 YRS OR MORE [facility] Tobacco Use History This section includes a history of the smoking, or tobacco-related health factors, that were collected on or before the date of the Encounter. The data comes from the [place] facility where the Encounter took place. Date/Time Smoking Status/Tobacco Use Comment F acility May 10, 2022 09:15 AM VA-TOBACCO QUIT 15 YRS OR MORE [facility] May 11, 2021 09:15 AM VA-TOBACCO FORMER USER [facility] May 11, 2021 09:15 AM VA-TOBACCO QUIT 15 YRS OR MORE [facility] Nov 22, 2018 01:36 PM VA-TOBACCO NEVER USED [facility] Nov 12, 2017 07:35 AM FORMER TOBACCO USER 7Y OR GREATE R [facility] Nov 06, 2016 09:05 AM FORMER TOBACCO USER 7Y OR GREATE R [facility] Sep 27, 2015 09:42 AM FORMER TOBACCO USER 7Y OR GREATE R [facility] Sep 25, 2014 07:55 AM FORMER TOBACCO USER 7Y OR GREATE R [facility] Sep 08, 2013 07:48 AM FORMER TOBACCO USER 7Y OR GREATE R [facility] July 09, 2012 09:20 AM FORMER TOBACCO USE >1Y <7Y [facility] Jun 06, 2011 07:53 AM FORMER TOBACCO USE >1Y <7Y [facility] Sep 09, 2009 03:03 PM FORMER TOBACCO USE >1Y <7Y [facility] Aug 11, 2008 01:06 PM FORMER TOBACCO USE <1Y [facility] Sep 19, 2007 02:52 PM CURRENT TOBACCO USER [facility] Sep 03, 2006 03:32 PM CURRENT TOBACCO USER [facility] Advance Directives: All historical and current Section Date Range: From patient's date of to the date document was created. This section includes ALL of a patient's completed or amended [place] Advance and Rescinded Directives. The entries below indicate that a directive exists for the patient, but an actual copy is not included with this document. The data comes from all [facility] facilities. Date Advance Directives Provider Source Mar 18, 2003 ADVANCE DIRECTIVE FARHAT MELGAR [place] [facility] Radiology Reports: +/- 30 [...] 07:50 AM CHEST 1 VIEW: MARYJO WAGNER [id number] -1950 M Exm Date: JULY 20, 2022@07:50 Req Phys: MACKENZIE COTTER Pat Loc: 07-20-2022@08:26 Img Loc: MAIN X-RAY Service: PRIMARY CARE - MED OFFICE (Case [id number] COMPLETE) CHEST 1 VIEW (RAD Detailed) CPT:43269 Proc Modifiers : PORTABLE EXAM Reason for Study: see below. thanks. Clinical History: IS NOT under investigation for COVID-19 or is COVID-19 negative Please further evaluate for acute airspace disease given o2 requirement. Thanks. Responsible provider name and phone number to notify for critical findings if other than user placing the order and pager listed below: User placing orders pager: [phone] same LAST CREATININE 0.9 (07/19/22) Report Status: Verified Date Reported: JULY 20, 2022 Date Verified: JULY 20, 2022 Rubber Turner E-Sig:/ES/JAMIE MIGUEL MD Report: EXAM: CHEST 1 VIEW HISTORY: see below. thanks. Reason for Study: see below. thanks. Ermine IS NOT under investigation for COVID-19 or is COVID-19 negative Please further evaluate for acute airspace disease given o2 requirement. Thanks. Responsible provider name and phone number to notify for critical findings if other than user placing the order and pager listed below: User placing orders pager: [phone] same LAST CREATININE 0. COMPARISON: Chest CT [...] Primary Interpreting Staff: JAMIE MIGUEL MD, RADIOLOGIST (Rubber Turner) /JAMIE FRANCES [facility] July 18, 2022 12:59 PM ELBOW LEFT 2 VIEWS: MARYJO WAGNER [id number] -1950 M Exm Date: JULY 18, 2022@12:59 Req Phys: LEIF BALBUENA Loc: OR-PACU/07-18-2022@13:59 Img Loc: MAIN X-RAY Service: ZZSURGICAL SERVICE (Case [id number] COMPLETE) ELBOW LEFT 2 VIEWS (RAD Detailed) CPT:04372 Proc Modifiers : PORTABLE EXAM, OPERATING ROOM EXAM Reason for Study: post-op Clinical History: post-op Report Status: Verified Date Reported: JULY 18, 2022 Date Verified: JULY 18, 2022 Rubber Turner E-Sig:/ES/JAKUB LEE MD Report: EXAM: ELBOW LEFT [...] Primary Interpreting Staff: JAKUB LEE MD, RADIOLOGIST (Rubber Turner) /[facility] JAKUB LEE [facility] July 18, 2022 07:30 AM FLUORO UP TO 1 HR PHYSICIAN TIME: MARYJO WAGNER [id number] -1950 M Exm Date: JULY 18, 2022@07:30 Req Phys: LEIF BALBUENA Loc: OR-PACU/07-18-2022@13:14 Img Loc: MAIN X-RAY Service: PRIMARY CARE - MED OFFICE (Case [id number] COMPLETE) FLUORO UP TO 1 HR PHYSICIAN TIME (RAD Detailed) CPT:22455 Proc Modifiers : PORTABLE EXAM, OPERATING ROOM EXAM, LEFT Reason for Study: Left distal humerous ORIF Clinical History: OR 7 Pathologic distal humeral shaft fracture Responsible provider name and phone number to notify for critical findings if other than user placing the order and pager listed below: User placing orders pager: Henry BALBUENA [phone] LAST CREATININE 0.8 (07/17/22) Report Status: Electronically Filed Date Reported: JULY 18, 2022 Report: Impression: Please see the full report for this procedure in [facility] patient progress notes. Fluoro guidance was provided during this procedure, but the study was not reviewed or verified by a [facility] radiologist. The radiation exposure dose has been recorded in the patient's chart. If you are unable to view this data, please contact the Imaging Department. VERIFIED BY: / *ELECTRONICALLY FILED* [facility] July 17, 2022 03:28 PM ABDOMINAL AORTOGRAM (P): MARYJO WAGNER [id number] -1950 M Exm Date: JULY 17, 2022@15:28 Req Phys: MALCOM LANGLEY [facility] Loc: 07-17-2022@15:54 Img Loc: INTERVENTIONAL RADIOLOGY Service: PRIMARY CARE - MED OFFICE (Case [id number] COMPLETE) ANGIOGRAPHY EXTREMITY UNILAT S&I (ANI Detailed) CPT:69297 Reason for Study: codes (Case 528 COMPLETE) IR AORTOGRAPHY ABDOMINAL W/O RUNO(ANI Detailed) CPT:74758 (Case 529 COMPLETE) IR FOREIGN BODY REMOVAL INTRAVASC(ANI Detailed) CPT:63874 (Case 532 COMPLETE) IR NEEDLE/INTRACATH PLACEMENT EXT(ANI Detailed) CPT:83771 (Case 533 COMPLETE) IR PLACEMENT OCCLUSIVE DEVICE SAM(ANI Detailed) CPT:G0269 Clinical History: codes Report Status: Verified Date Reported: JULY 17, 2022 Date Verified: JULY 17, 2022 Rubber Turner E-Sig:/ES/MALCOM LANGLEY MD Report: RADIOLOGIST: Malcom Langley [...] angiogram and runoff. 12. Closure of right PEDIATRIC SOCIAL WORKER with Angio-Seal device. HISTORY: Metastatic renal cell [...] into the left brachial artery. The 5 Malian sheath was exchanged for a 6 Malian sheath that was advanced into the left [...] arteries. Sheath and catheters were removed and PEDIATRIC SOCIAL WORKER arteriotomy was closed using Angioseal. There is patent hemostasis. No bleeding or hematoma noted. Sterile dressing applied. 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 Primary Interpreting Staff: MALCOM LANGLEY MD, INTERVENTIONAL RADIOLOGIST (Hugo) /MALCOM HE [facility] July 17, 2022 07:30 AM RENAL ARTERY EMBOLIZATION (P): MARYJO WAGNER [id number] -1950 M Exm Date: JULY 17, 2022@07:30 Req Phys: WESTON VASQUEZ Pat Loc: 3F/07-17-2022@15:46 Img Loc: INTERVENTIONAL RADIOLOGY Service: PRIMARY CARE - MED OFFICE (Case [id number] COMPLETE) IR TRANSCATH EMBOLIZATION W/ANGIO(ANI Detailed) CPT:31844 Reason for Study: embolization of RCC mets to left humerus (Case 131 COMPLETE) IR ARTERIAL EMBOLIZATION OTHER TH(ANI Detailed) CPT:68175 (Case 132 COMPLETE) IR US GUIDANCE VASCULAR ACCESS (ANI Detailed) CPT:71701 Clinical History: Ermine IS NOT under investigation for COVID-19 or [...] pager listed below: User placing orders pager: [phone] LAST CREATININE 1.0 (07/13/22) Report Status: Verified Date Reported: JULY 17, 2022 Date Verified: JULY 17, 2022 Rubber Turner E-Sig:/ES/MALCOM LANGLEY MD Report: RADIOLOGIST: Malcom Langley [...] angiogram and runoff. 12. Closure of right PEDIATRIC SOCIAL WORKER with Angio-Seal device. HISTORY: Metastatic renal cell [...] into the left brachial artery. The 5 Malian sheath was exchanged for a 6 Malian sheath that was advanced into the left [...] arteries. Sheath and catheters were removed and PEDIATRIC SOCIAL WORKER arteriotomy was closed using Angioseal. There is patent hemostasis. No bleeding or hematoma noted. Sterile dressing applied. 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 Primary Interpreting Staff: MALCOM LANGLEY MD, INTERVENTIONAL RADIOLOGIST (Rubber Turner) /MALCOM HE [facility] July 14, 2022 06:44 AM HUMERUS LEFT MINIMUM 2 VIEWS: MARYJO WAGNER [id number] -1950 M Exm Date: JULY 14, 2022@06:44 Req Phys: WESTON VASQUEZ [facility] Loc: 07-14-2022@07:13 Img Loc: MAIN X-RAY Service: PRIMARY CARE - MED OFFICE (Case [id number] COMPLETE) HUMERUS LEFT MINIMUM 2 VIEWS (RAD Detailed) CPT:25140 Reason for Study: post reduction Clinical History: Report Status: Verified Date Reported: JULY 14, 2022 Date Verified: JULY 14, 2022 Rubber Turner E-Sig: Report: HUMERUS LEFT MINIMUM 2 VIEWS [...] less likely. READING PHYSICIAN: Xavier Merrill MD -[phone] 07/14/2022 5:11 PDT [facility] National [facility] Program [phone] (For Medical Practitioner Use Only) Attention Patients / Veterans: If you have questions or concerns about these test results, please contact your ordering provider or primary care team. Primary Interpreting Staff: RADIOLOGY,OUTSIDE SERVICE, Staff Physician / RADIOLOGY,OUTSIDE SERVICE [facility] July 13, 2022 10:07 AM HUMERUS LEFT MINIMUM 2 VIEWS: MARYJO WAGNER [id number] -1950 M Ex Date: JULY 13, 2022@10:07 Req Phys: WHITNEY ANDERSON Pat Loc: [facility] EMERGENCY DEPT WALK-IN (Re Img Loc: MAIN X-RAY Service: Unknown (Case [id number] COMPLETE) HUMERUS LEFT MINIMUM 2 VIEWS (RAD Detailed) CPT:47305 Proc Modifiers : LEFT Reason for Study: L arm pain Clinical History: Ermine IS NOT under investigation for COVID-19 or is COVID-19 negative Atraumatic left upper extremity pain that is located midshaft humerus distally to the mid forearm. Clinical concern for dislocation versus fracture versus bone mets Responsible provider name and phone number to notify for critical findings if other than user placing the order and pager listed below: User placing orders pager: [phone] LAST CREATININE 0.8 (05/10/22) Report Status: Verified Date Reported: JULY 13, 2022 Date Verified: JULY 13, 2022 Rubber Turner E-Sig:/ES/ALBINA COWAN MD, FACR, CCD Report: EXAMINATION: [...] Staff: ALBINA COWAN MD, FACR, STAFF RADIOLOGIST (Rubber Turner) /[facility] ALBINA COWAN [facility] July 13, 2022 10:07 AM ELBOW LEFT 3 OR MORE VIEWS: MARYJO WAGNER [id number] -1950 M Exm Date: JULY 13, 2022@10:07 Req Phys: WHITNEY ANDERSON Pat Loc: [facility] EMERGENCY DEPT WALK-IN (Re Img Loc: MAIN X-RAY Service: Unknown (Case [id number] COMPLETE) ELBOW LEFT 3 OR MORE VIEWS (RAD Detailed) CPT:19463 Proc Modifiers : LEFT Reason for Study: L arm pain Clinical History: Ermine IS NOT under investigation for COVID-19 or is COVID-19 negative Atraumatic left upper extremity pain that is located midshaft humerus distally to the mid forearm. Clinical concern for dislocation versus fracture versus bone mets Responsible provider name and phone number to notify for critical findings if other than user placing the order and pager listed below: User placing orders pager: [phone] LAST CREATININE 0.8 (05/10/22) Report Status: Verified Date Reported: JULY 13, 2022 Date Verified: JULY 13, 2022 Rubber Turner E-Sig:/ES/ALBINA COWAN MD, FACR, CCD Report: EXAMINATION: [...] Staff: ALBINA COWAN MD, FACR, STAFF RADIOLOGIST (Rubber Turner) /ALBINA NATHAN [facility] July 13, 2022 10:07 AM FOREARM LEFT 2 VIEWS: MARYJO WAGNER [id number] -1950 M Exm Date: JULY 13, 2022@10:07 Req Phys: WHITNEY ANDERSON Pat Loc: [facility] EMERGENCY DEPT WALK-IN (Re Img Loc: MAIN X-RAY Service: Unknown (Case [id number] COMPLETE) FOREARM LEFT 2 VIEWS (RAD Detailed) CPT:09341 Proc Modifiers : LEFT Reason for Study: [...] pager listed below: User placing orders pager: [phone] LAST CREATININE 0.8 (05/10/22) Report Status: Verified Date Reported: JULY 13, 2022 Date Verified: JULY 13, 2022 Rubber Turner E-Sig:/ES/ALBINA COWAN MD, FACR, CCD Report: EXAMINATION: [...] Staff: ALBINA COWAN MD, FACR, STAFF RADIOLOGIST (Rubber Turner) /ALBINA NATHAN [facility] Pathology Reports: +/- 30 days of the [...] COSIGNER: URGENCY: STATUS: COMPLETED $APHDR Reporting Lab: [facility] [CLIA# [id number]] [place] [address] - - - - - - - [...] SANDOVAL STAFF PATHOLOGIST, PATHOLOGY & LABORATORY MED [facility] [place] July 21, 2022@14:37 Performing Laboratory: Surgical Pathology Report Performed By: [facility] [CLIA# [id number]] [place] [address] $FTR - - - - - - [...] - - MARYJO WAGNER STANDARD FORM 515 ID:[id number] SEX:M :1950 AGE: 72 LOC:[facility] PATHOLOGY PRO FEE ADM:June DX:PATHOLOGIC FX LF HUMERUS PCP: Leif Balbuena MD /sangita/ JIAN SANDOVAL STAFF PATHOLOGIST, PATHOLOGY & LABORATORY MED C Signed: 07/21/2022 14:37 JIAN SANDOVAL [facility]
--- OUTSIDE RECORDS SUMMARY | 2023-03-24 08:46 | XMS_ITS ---
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 Address [address] [place] [address] Support Name Relationship Address Phone DOREEN WAGNER Next of Kin [address] [place] [phone] DOREEN Emergency Contact [address] [place] [phone] Insurance Providers: All historical and current [...] Name Patient's Relationship to Policy [place] [employer] [facility] (WNR) MEDICARE ADVANTAGE [facility] (R) June 26, 2016 [id number] JOAN WAGNER KARSTEN PATIENT [employer] MCR (WNR) MEDICARE ADVANTAGE MCR (WNR) June 26, 2016 [id number] JOAN WAGNER KARSTEN PATIENT [employer] [facility] (WNR) MEDICARE ADVANTAGE [facility] (WNR) June 26, 2016 [id number] 15 JOAN WAGNER PATIENT Selected Encounter This section includes the information on record at [place] for the Encounter. Date/Time Encounter Type Encounter Description Reason Pro vider Source July 19, 2022 10:20 PM Inpatient Visit DAILY HOSPITALIZATION DATA [facility] Encounter Template Text not used by [place] Plan of Treatment: Future Appointments (+ 6 [...] comes from all [facility]. Appointment Date/Time Appointment Type Appointme nt Facility Name Jul 28, 2022 10:45 AM [facility] Aug 13, 2022 06:13 PM AMBULATORY - MEDICINE [facility] Aug 23, 2022 09:30 AM AMBULATORY - SURGERY [facility] Aug 23, 2022 09:45 AM [facility] Aug 23, 2022 10:30 AM AMBULATORY - MEDICINE [facility] Aug 23, 2022 10:31 AM AMBULATORY - MEDICINE [facility] Sep 06, 2022 10:15 AM AMBULATORY - SURGERY [facility] Oct 25, 2022 07:00 AM [facility] Oct 25, 2022 07:30 AM AMBULATORY - [...] comes from all [facility]. Test Date/Time Test Type Test Details Facility Name Jun 12, 2022 12:00 AM Laboratory - Chemistry Order CBC & DIFF BLOOD ONCO SP ONCE [facility] Jun 12, 2022 12:00 AM Laboratory - Chemistry Order COMPREHENSIVE METABOLIC PANEL+MG PLASMA ONCO SP [facility] Jun 12, 2022 12:00 AM Laboratory - Chemistry Order TSH W/REFLEX TO FREE T4 PLASMA ONCO SP ONCE [facility] July 14, 2022 12:00 AM Laboratory - Blood Bank Order ABO/RH - LAB BLOOD [facility] July 14, 2022 02:05 PM Laboratory - Blood Bank Order TYPE & SCREEN - LAB BLOOD [facility] Aug 07, 2022 11:23 AM Laboratory - Chemistry Order DRUG SCREEN PANEL,URINE URINE [facility] Aug 23, 2022 10:47 AM Laboratory - Chemistry Order URINALYSIS URINE ER STAT [facility] Lab Results: +/- 30 days of the encounter This section includes the Chemistry and Hematology Lab Results on record with [place] for the patient. Radiology Reports and Pathology Reports are provided separately, in subsequent sections. Lab Results This section contains the Chemistry/Hematology Results that were resulted 30 days before or 30 daysafter the date of the Encounter. Date/Time Source Result Type Result - Unit Interpretation Reference Range Comment July 19, 2022 04:40 PM [facility] FINGERSTICK GLUCOSE Specimen Type: BLOOD Comment: Save Result Nurse Notified Ordering Provider: MACKENZIE COTTER Report Released Date/Time: July 19, 2022 05:00 PM Reporting Lab: [facility] [address] Performing Lab: [facility] [address] FINGERSTICK GLUCOSE 132 70-100 July 19, 2022 07:13 AM [facility] COMPREHENSIVE METABOLIC PANEL+MG Specimen Type: PLASMA No comment entered. Ordering Provider: MACKENZIE COTTER Report Released Date/Time: July 18, 2022 05:40 PM Reporting Lab: [facility] [address] Performing Lab: [facility] [address] CREATININE 0.9 0.7-1.2 UREA NITROGEN 24 8-26 [...] See_Commen t July 19, 2022 07:13 AM [facility] IRON GROUP Specimen Type: SERUM No comment entered. Ordering Provider: MACKENZIE COTTER Report Released Date/Time: July 18, 2022 05:40 PM Reporting Lab: [facility] [address] Performing Lab: [facility] [address] IRON 28 L 65-175 TIBC,CALCULATE D 223 L 250-425 FERRITIN 73.7 21.8-274.7 IRON SATURATION 13 L 20-50 TRANSFERRIN 178 163-382 July 19, 2022 07:13 AM [facility] CBC Specimen Type: BLOOD No comment entered. Ordering Provider: MACKENZIE COTTER Report Released Date/Time: July 18, 2022 05:40 PM Reporting Lab: [facility] [address] Performing Lab: [facility] [address] WBC 7.73 4.0-11.0 RBC 2.42 L 4.6-6.2 HGB 8.2 L 13.5-17.9 HCT 23.8 L 41-54 MCV 98.3 80-100 MCH 33.9 H 27-33 MCHC 34.5 32.0-37.5 PLT 155 150-400 MPV 9.6 7.4-10.4 RDW 13.5 11.5-14.5 July 19, 2022 05:44 AM [facility] FINGERSTICK GLUCOSE Specimen Type: BLOOD Comment: Save Result Nurse Notified Ordering Provider: MACKENZIE COTTER Report Released Date/Time: July 19, 2022 11:54 AM Reporting Lab: [facility] [address] Performing Lab: [facility] [address] FINGERSTICK GLUCOSE 137 70-100 July 18, 2022 10:51 PM [facility] FINGERSTICK GLUCOSE Specimen Type: BLOOD Comment: Save Result Nurse Notified Ordering Provider: MACKENZIE COTTER Report Released Date/Time: July 18, 2022 11:06 PM Reporting Lab: [facility] [address] Performing Lab: [facility] [address] FINGERSTICK GLUCOSE 163 70-100 July 17, 2022 06:51 AM [facility] BASIC METABOLIC PANEL+MG Specimen Type: PLASMA No comment entered. Ordering Provider: DANG VALLE Report Released Date/Time: July 16, 2022 09:37 AM Reporting Lab: [facility] [address] Performing Lab: [facility] [address] CREATININE 0.8 0.7-1.2 UREA NITROGEN 23 8-26 GLUCOSE 107 H 70-100 SODIUM 139 136-145 POTASSIUM 3.9 3.5-5.1 CHLORIDE 106 98-107 CO2 28 22-29 CALCIUM 9.1 8.4-10.2 MAGNESIUM 1.9 1.6-2.6 ANION GAP 5 5-15 .CREAT EGFR(CKD-EPI) >90 See_Commen t July 17, 2022 06:51 AM [facility] PROTHROMBIN TIME/INR Specimen Type: PLASMA No comment entered. Ordering Provider: DANG VALLE R Report Released Date/Time: July 16, 2022 09:37 AM Reporting Lab: [facility] [address] Performing Lab: [facility] [address] .INR 1.0 0.8-1.1 .PT 11.5 9.4-12.5 July 17, 2022 06:51 AM [facility] CBC Specimen Type: BLOOD No comment entered. Ordering Provider: DANG VALLE R Report Released Date/Time: July 16, 2022 09:37 AM Reporting Lab: [facility] [address] Performing Lab: [facility] [address] WBC 6.05 4.0-11.0 RBC 3.77 L 4.6-6.2 HGB 12.7 L 13.5-17.9 HCT 36.0 L 41-54 MCV 95.5 80-100 MCH 33.7 H 27-33 MCHC 35.3 32.0-37.5 PLT 179 150-400 MPV 9.4 7.4-10.4 RDW 13.2 11.5-14.5 July 13, 2022 11:22 AM [facility] COVID-19 AND FLU/RSV DIAG PANEL(CEPHEID) Specimen Typ e: NASOPHARYNGEAL Comment: Cepheid GeneXpert (618) Ordering Provider: WHITNEY ANDERSON Report Released Date/Time: July 13, 2022 11:04 AM Reporting Lab: [facility] [address] Performing Lab: [facility] [address] COVID-19 (CEPHEID) Not Detected Not Detected INFLUENZA A (PCR) Not Detected Not Detected INFLUENZA B (PCR) Not Detected Not Detected RSV (PCR) Not Detected Not Detected July 13, 2022 11:00 AM [facility] C-REACTIVE PROTEIN Specimen Type: SERUM Comment: Automated Differential Performed Ordering Provider: WHITNEY ANDERSON Report Released Date/Time: July 13, 2022 11:04 AM Reporting Lab: [facility] [address] Performing Lab: [facility] [address] C-REACTIVE PROTEIN 1.17 <5.00 July 13, 2022 11:00 AM [facility] PROTHROMBIN TIME/INR Specimen Type: PLASMA No comment entered. Ordering Provider: WHITNEY ANDERSON Report Released Date/Time: July 13, 2022 11:04 AM Reporting Lab: [facility] [address] Performing Lab: [facility] [address] .INR 0.9 0.8-1.1 .PT 11.1 9.4-12.5 July 13, 2022 11:00 AM [facility] SED RATE Specimen Type: BLOOD No comment entered. Ordering Provider: WHITNEY ANDERSON Report Released Date/Time: July 13, 2022 11:04 AM Reporting Lab: [facility] [address] Performing Lab: [facility] [address] SED RATE 10 5-15 July 13, 2022 11:00 AM [facility] CBC & DIFF Specimen Type: BLOOD Comment: Automated Differential Performed Ordering Provider: WHITNEY ANDERSON Report Released Date/Time: July 13, 2022 11:04 AM Reporting Lab: [facility] [address] Performing Lab: [facility] [address] WBC 8.82 4.0-11.0 RBC 3.89 L 4.6-6.2 [...] 0.03 0-0.1 July 13, 2022 11:00 AM [facility] COMPREHENSIVE METABOLIC PANEL+MG Specimen Type: PLASMA Comment: Automated Differential Performed Ordering Provider: WHITNEY ANDERSON Report Released Date/Time: July 13, 2022 11:04 AM Reporting Lab: [facility] [address] Performing Lab: [facility] [address] CREATININE 1.0 0.7-1.2 UREA NITROGEN 16 8-26 [...] 137/75 mm[Hg] 18 /min 91 % 0 [facility] July 19, 2022 10:50 PM 7 [facility] July 19, 2022 09:57 PM 8 [facility] July 19, 2022 08:30 PM 7 [facility] July 19, 2022 08:29 PM 7 [facility] Social History: Smoking Status (Most current) and Tobacco Use (All prior to encounter date) This section includes the most current, and the historical, smoking and tobacco- related health factors from the [place] facility where the Encounter took place. Current Smoking Status This section includes the most current smoking, or tobacco-related health factor, from the [place] facility where the Encounter took place. Date/Time Current Smoking Status Comment Facil ity May 10, 2022 09:15 AM VA-TOBACCO FORMER USER [facility] Tobacco Use History This section includes a history of the smoking, or tobacco-related health factors, that were collected on or before the date of the Encounter. The data comes from the [place] facility where the Encounter took place. Date/Time Smoking Status/Tobacco Use Comment F acility May 10, 2022 09:15 AM VA-TOBACCO QUIT 15 YRS OR MORE [facility] May 11, 2021 09:15 AM VA-TOBACCO FORMER USER [facility] May 11, 2021 09:15 AM VA-TOBACCO QUIT 15 YRS OR MORE [facility] Nov 22, 2018 01:36 PM VA-TOBACCO NEVER USED [facility] Nov 12, 2017 07:35 AM FORMER TOBACCO USER 7Y OR GREATE R [facility] Nov 06, 2016 09:05 AM FORMER TOBACCO USER 7Y OR GREATE R [facility] Sep 27, 2015 09:42 AM FORMER TOBACCO USER 7Y OR GREATE R [facility] Sep 25, 2014 07:55 AM FORMER TOBACCO USER 7Y OR GREATE R [facility] Sep 08, 2013 07:48 AM FORMER TOBACCO USER 7Y OR GREATE R [facility] July 09, 2012 09:20 AM FORMER TOBACCO USE >1Y <7Y [facility] Jun 06, 2011 07:53 AM FORMER TOBACCO USE >1Y <7Y [facility] Sep 09, 2009 03:03 PM FORMER TOBACCO USE >1Y <7Y [facility] Aug 11, 2008 01:06 PM FORMER TOBACCO USE <1Y [facility] Sep 19, 2007 02:52 PM CURRENT TOBACCO USER [facility] Sep 03, 2006 03:32 PM CURRENT TOBACCO USER [facility] Advance Directives: All historical and current Section Date Range: From patient's date of to the date document was created. This section includes ALL of a patient's completed or amended [place] Advance and Rescinded Directives. The entries below indicate that a directive exists for the patient, but an actual copy is not included with this document. The data comes from all [facility]. Date Advance Directives Provider Source Mar 18, 2003 ADVANCE DIRECTIVE FARHAT MELGAR [facility] Radiology Reports: +/- 30 days of the [...] the Encounter. The data comes from all [place] treatment facilities. Date/Time Radiology Report Provider Source July 20, 2022 07:50 AM CHEST 1 VIEW: MARYJO WAGNER [id number] -1950 M Exm Date: JULY 20, 2022@07:50 Req Phys: MACKENZIE COTTER Darwin Pat Loc: 07-20-2022@08:26 Img Loc: MAIN X-RAY Service: PRIMARY CARE - MED OFFICE (Case [id number] COMPLETE) CHEST 1 VIEW (RAD Detailed) CPT:01796 Proc Modifiers : PORTABLE EXAM Reason for Study: see below. thanks. Clinical History: IS NOT under investigation for COVID-19 or is COVID-19 negative Please further evaluate for acute airspace disease given o2 requirement. Thanks. Responsible provider name and phone number to notify for critical findings if other than user placing the order and pager listed below: User placing orders pager: [phone] same LAST CREATININE 0.9 (07/19/22) Report Status: Verified Date Reported: JULY 20, 2022 Date Verified: JULY 20, 2022 Channeler Runner E-Sig:/ES/JAMIE MIGUEL MD Report: EXAM: CHEST 1 [...] pager listed below: User placing orders pager: [phone] same LAST CREATININE 0. COMPARISON: Chest CT [...] Primary Interpreting Staff: JAMIE MIGUEL MD, RADIOLOGIST (Channeler Runner) /JAMIE FRANCES [facility] July 18, 2022 12:59 PM ELBOW LEFT 2 VIEWS: MARYJO WAGNER [id number] -1950 M Exm Date: JULY 18, 2022@12:59 Req Phys: LEIF BALBUENA Pat Loc: OR-PACU/07-18-2022@13:59 Img Loc: MAIN X-RAY Service: ZZSURGICAL SERVICE (Case [id number] COMPLETE) ELBOW LEFT 2 VIEWS (RAD Detailed) CPT:62641 Proc Modifiers : PORTABLE EXAM, OPERATING ROOM EXAM Reason for Study: post-op Clinical History: post-op Report Status: Verified Date Reported: JULY 18, 2022 Date Verified: JULY 18, 2022 Channeler Runner E-Sig:/ES/JAKUB LEE MD Report: EXAM: ELBOW LEFT [...] Primary Interpreting Staff: JAKUB LEE MD, RADIOLOGIST (Channeler Runner) /[facility] JAKUB LEE [facility] July 18, 2022 07:30 AM FLUORO UP TO 1 HR PHYSICIAN TIME: MARYJO WAGNER [id number] -1950 M Exm Date: JULY 18, 2022@07:30 Req Phys: LEIF BALBUENA Loc: OR-PACU/07-18-2022@13:14 Img Loc: MAIN X-RAY Service: PRIMARY CARE - MED OFFICE (Case [id number] COMPLETE) FLUORO UP TO 1 HR PHYSICIAN TIME (RAD Detailed) CPT:83327 Proc Modifiers : PORTABLE EXAM, OPERATING ROOM EXAM, LEFT Reason for Study: Left distal humerous ORIF Clinical History: OR 7 Pathologic distal humeral shaft fracture Responsible provider name and phone number to notify for critical findings if other than user placing the order and pager listed below: User placing orders pager: Henry BALBUENA [phone] LAST CREATININE 0.8 (07/17/22) Report Status: Electronically [...] Imaging Department. VERIFIED BY: / *ELECTRONICALLY FILED* [facility] July 17, 2022 03:28 PM ABDOMINAL AORTOGRAM (P): BERNARDMARYJO DIRK [id number] -1950 M Exm Date: JULY 17, 2022@15:28 Req Phys: MALCOM LANGLEY Loc: 07-17-2022@15:54 Img Loc: INTERVENTIONAL RADIOLOGY Service: PRIMARY CARE - MED OFFICE (Case [id number] COMPLETE) ANGIOGRAPHY EXTREMITY UNILAT S&I (ANI Detailed) CPT:99128 Reason for Study: codes (Case 528 COMPLETE) IR AORTOGRAPHY ABDOMINAL W/O RUNO(ANI Detailed) CPT:87642 (Case 529 COMPLETE) IR FOREIGN BODY REMOVAL INTRAVASC(ANI Detailed) CPT:54158 (Case 532 COMPLETE) IR NEEDLE/INTRACATH PLACEMENT EXT(ANI Detailed) CPT:46655 (Case 533 COMPLETE) IR PLACEMENT OCCLUSIVE DEVICE SAM(ANI Detailed) CPT:G0269 Clinical History: codes Report Status: Verified Date Reported: JULY 17, 2022 Date Verified: JULY 17, 2022 Channeler Runner E-Sig:/ES/MALCOM LANGLEY MD Report: RADIOLOGIST: Malcom Langley [...] angiogram and runoff. 12. Closure of right EXTRUSION PROCESS OPERATOR with Angio-Seal device. HISTORY: Metastatic renal [...] Sheath removed over guidewire and a 5 turkmen vascular sheath advanced over guidewire into the artery. An H1 catheter was advanced along with the guidewire into the thoracic arch and the left subclavian artery was selected. Catheter and the guidewire were advanced into the left brachial artery. The 5 Monegasque sheath was exchanged for a 6 Monegasque sheath that was advanced into the left [...] arteries. Sheath and catheters were removed and EXTRUSION PROCESS OPERATOR arteriotomy was closed using Angioseal. There is patent hemostasis. No bleeding or hematoma noted. Sterile dressing applied. 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 Primary Interpreting Staff: MALCOM LANGLEY MD, INTERVENTIONAL RADIOLOGIST (Channeler Runner) /MALCOM HE [facility] July 17, 2022 07:30 AM RENAL ARTERY EMBOLIZATION (P): MARYJO WAGNER [id number] -1950 M Exm Date: JULY 17, 2022@07:30 Req Phys: WESTON VASQUEZ Pat Loc: 07-17-2022@15:46 Img Loc: INTERVENTIONAL RADIOLOGY Service: PRIMARY CARE - MED OFFICE (Case 130 COMPLETE) IR TRANSCATH EMBOLIZATION W/ANGIO(ANI Detailed) CPT:52631 Reason for Study: embolization of RCC mets to left humerus (Case 131 COMPLETE) IR ARTERIAL EMBOLIZATION OTHER TH(ANI Detailed) CPT:89121 (Case 132 COMPLETE) IR US GUIDANCE VASCULAR ACCESS (ANI Detailed) CPT:90897 Clinical History: Singer IS NOT under investigation for COVID-19 or [...] pager listed below: User placing orders pager: [phone] LAST CREATININE 1.0 (07/13/22) Report Status: Verified Date Reported: JULY 17, 2022 Date Verified: JULY 17, 2022 Channeler Runner E-Sig:/ES/MALCOM LANGLEY MD Report: RADIOLOGIST: Malcom Langley [...] angiogram and runoff. 12. Closure of right EXTRUSION PROCESS OPERATOR with Angio-Seal device. HISTORY: Metastatic renal [...] Sheath removed over guidewire and a 5 turkmen vascular sheath advanced over guidewire into the artery. An H1 catheter was advanced along with the guidewire into the thoracic arch and the left subclavian artery was selected. Catheter and the guidewire were advanced into the left brachial artery. The 5 Monegasque sheath was exchanged for a 6 Monegasque sheath that was advanced into the left [...] arteries. Sheath and catheters were removed and EXTRUSION PROCESS OPERATOR arteriotomy was closed using Angioseal. There is patent hemostasis. No bleeding or hematoma noted. Sterile dressing applied. 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 Primary Interpreting Staff: MALCOM LANGLEY MD, INTERVENTIONAL RADIOLOGIST (Channeler Runner) /MALCOM HE [facility] July 14, 2022 06:44 AM HUMERUS LEFT MINIMUM 2 VIEWS: MARYJO WAGNER [id number] -1950 M Ex Date: JULY 14, 2022@06:44 Req Phys: PEDROHERBERTJAIRO [facility] Loc: 07-14-2022@07:13 Img Loc: MAIN X-RAY Service: PRIMARY CARE - MED OFFICE (Case [id number] COMPLETE) HUMERUS LEFT MINIMUM 2 VIEWS (RAD Detailed) CPT:78837 Reason for Study: post reduction Clinical History: Report Status: Verified Date Reported: JULY 14, 2022 Date Verified: JULY 14, 2022 Channeler Runner E-Sig: Report: HUMERUS LEFT MINIMUM 2 VIEWS HISTORY: post reduction COMPARISON: 07/13/2022 TECHNIQUE: 2 view(s) of the humerus, submitted to the [place] National Teleradiology Program (NTP) for interpretation. FINDINGS: [...] less likely. READING PHYSICIAN: Xavier Merrill MD -[phone] 07/14/2022 5:11 PDT [facility] National Teleradiology Program [phone] (For Medical Practitioner Use Only) Attention Patients / Veterans: If you have questions or concerns about these test results, please contact your ordering provider or primary care team. Primary Interpreting Staff: RADIOLOGY,OUTSIDE SERVICE, Staff Physician / RADIOLOGY,OUTSIDE SERVICE [facility] July 13, 2022 10:07 AM FOREARM LEFT 2 VIEWS: MARYJO WAGNER [id number] -1950 M Ex Date: JULY 13, 2022@10:07 Req Phys: WHITNEY ANDERSON Pat Loc: [facility] EMERGENCY DEPT WALK-IN (Re Img Loc: MAIN X-RAY Service: Unknown (Case [id number] COMPLETE) FOREARM LEFT 2 VIEWS (RAD Detailed) CPT:44450 Proc Modifiers : LEFT Reason for Study: L arm pain Clinical History: [facility] IS NOT under investigation for COVID-19 or is COVID-19 negative Atraumatic left upper extremity pain that is located midshaft humerus distally to the mid forearm. Clinical concern for dislocation versus fracture versus bone mets Responsible provider name and phone number to notify for critical findings if other than user placing the order and pager listed below: User placing orders pager: [phone] LAST CREATININE 0.8 (05/10/22) Report Status: Verified Date Reported: JULY 13, 2022 Date Verified: JULY 13, 2022 Channeler Runner E-Sig:/ES/ALBINA COWAN MD, FACR, CCD Report: EXAMINATION: [...] Staff: ALBINA COWAN MD, FACR, STAFF RADIOLOGIST (Channeler Runner) /[facility] ALBINA COWAN [facility] July 13, 2022 10:07 AM HUMERUS LEFT MINIMUM 2 VIEWS: MARYJO WAGNER [id number] -1950 M Exm Date: JULY 13, 2022@10:07 Req Phys: WHITNEY ANDERSON Pat Loc: [facility] EMERGENCY DEPT WALK-IN (Re Img Loc: MAIN X-RAY Service: Unknown (Case [id number] COMPLETE) HUMERUS LEFT MINIMUM 2 VIEWS (RAD Detailed) CPT:81071 Proc Modifiers : LEFT Reason for Study: [...] pager listed below: User placing orders pager: [phone] LAST CREATININE 0.8 (05/10/22) Report Status: Verified Date Reported: JULY 13, 2022 Date Verified: JULY 13, 2022 Channeler Runner E-Sig:/SANGITA/ALBINA COWAN MD, FACR, CCD Report: EXAMINATION: [...] Staff: ALBINA COWAN MD, FACR, STAFF RADIOLOGIST (Channeler Runner) /ALBINA NATHAN [facility] July 13, 2022 10:07 AM ELBOW LEFT 3 OR MORE VIEWS: MARYJO WAGNER [id number] -1950 M Exm Date: JULY 13, 2022@10:07 Req Phys: WHITNEY ANDERSON Pat Loc: [facility] EMERGENCY DEPT WALK-IN (Re Img Loc: MAIN X-RAY Service: Unknown (Case [id number] COMPLETE) ELBOW LEFT 3 OR MORE VIEWS (RAD Detailed) CPT:58720 Proc Modifiers : LEFT Reason for Study: [...] pager listed below: User placing orders pager: [phone] LAST CREATININE 0.8 (05/10/22) Report Status: Verified Date Reported: JULY 13, 2022 Date Verified: JULY 13, 2022 Channeler Runner E-Sig:/ES/ALBINA COWAN MD, FACR, CCD Report: EXAMINATION: [...] Staff: ALBINA COWAN MD, FACR, STAFF RADIOLOGIST (Channeler Runner) /ALBINA NATHAN [facility] Pathology Reports: +/- 30 days of [...] the Encounter. The data comes from all [place] treatment facilities. Date/Time Pathology Report Provider Source July 13, 2022 04:06 PM LR SURGICAL PATHOL OGY REPORT: LOCAL TITLE: LR SURGICAL PATHOLOGY REPORT STANDARD TITLE: PATHOLOGY REPORT DATE OF NOTE: JULY 21, 2022@14:37:27 ENTRY DATE: JULY 21, 2022@14:37:27 AUTHOR: JIAN SANDOVAL EXP COSIGNER: URGENCY: STATUS: COMPLETED $APHDR Reporting Lab: [facility] [CLIA# [id number]] [place] [address] - - - - - - - [...] is entirely submitted in A-D. CE. (D). [facility] FROZEN SECTION DIAGNOSES: SPEC. 1 [...] SANDOVAL STAFF PATHOLOGIST, PATHOLOGY & LABORATORY MED [facility] Signed July 21, 2022@14:37 Performing Laboratory: Surgical Pathology Report Performed By: [facility] [CLIA# [id number]] [place] [address] $FTR - - - - - - [...] - - MARYJO WAGNER STANDARD FORM 515 ID:[id number] SEX:M :1950 AGE: 72 LOC:[facility] PATHOLOGY PRO FEE ADM:June DX:PATHOLOGIC FX LF HUMERUS PCP: Leif Balbuena MD /sangita/ JIAN SANDOVAL STAFF PATHOLOGIST, PATHOLOGY & LABORATORY MED C Signed: 07/21/2022 14:37 JIAN SANDOVAL [facility]
--- OUTSIDE RECORDS SUMMARY | 2023-03-24 08:46 | XMS_ITS ---
NON-OR ANESTHESIA PROCEDURES [facility] Encounter Summary Created on: March 24, 2023 MARYJO WAGNER : 1950 Sex: Male 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 [facility] Organization Department of [facility] Address [address] [place] [address] Support Name Relationship Address Phone DOREEN WAGNER Next of Kin [address] [place] [phone] DOREEN Emergency Contact [address] [place] [phone] Insurance Providers: All historical and current [...] Name Patient's Relationship to Policy [place] [employer] [facility] (R) MEDICARE ADVANTAGE [facility] ([facility]) June 26, 2016 [id number] JOAN WAGNER KARSTEN PATIENT HUMANA MCR (WNR) MEDICARE ADVANTAGE MCR ([facility]) June 26, 2016 [id number] JOAN WAGNER KARSTEN PATIENT [employer] MCR (WNR) MEDICARE ADVANTAGE [facility] ([facility]) June 26, 2016 [id number] JOAN WAGNER PATIENT Selected Encounter This section includes the information on record at [facility] for the Encounter. Date/Time Encounter Type Encounter Description Reason Provider Source July 20, 2022 02:24 PM POSTOP FOLLOW-UP VISIT NON-OR ANESTHESIA PROCEDURES ICD-10-CM M79.602 Pain in left arm JARAD CHOI IHMarlee Encounter Template Text not used by [facility] Assessments - Encounter Diagnoses This section includes the primary and secondary diagnoses documented for the Encounter. Date/Time Primary/Secondary Diagnosis Diagnosis Name Provider Source July 20, 2022 02:26 PM PRIMARY Pain in left arm ZHEN CHOI [facility] Plan of Treatment: Future Appointments (+ 6 months) and Future Tests (+/- 45 days) The Plan of Treatment section includes future care activities for the patient from all [facility]. This section includes future appointments and future orders which are active, pending or scheduled. Future Appointments This section includes appointments that were scheduled to occur 6 months from the date of the Encounter, up to a maximum of 20 appointments. The data comes from all [facility]. Appointment Date/Time Appointment Type Appointme nt Facility Name Jul 28, 2022 10:45 AM AMBULATORY [facility] Aug 13, 2022 06:13 PM AMBULATORY - MEDICINE [facility] Aug 23, 2022 09:30 AM AMBULATORY - SURGERY [facility] Aug 23, 2022 09:45 AM AMBULATORY - NONE [facility] Aug 23, 2022 10:30 AM AMBULATORY - MEDICINE [facility] Aug 23, 2022 10:31 AM AMBULATORY - MEDICINE [facility] Sep 06, 2022 10:15 AM AMBULATORY - SURGERY [facility] Oct 25, 2022 07:00 AM AMBULATORY - NONE [facility] Oct 25, 2022 07:30 AM AMBULATORY - SURGERY [facility] Oct 25, 2022 09:00 AM AMBULATORY SURGERY [facility] Active, Pending, and Scheduled Orders This section includes a listing of several types of active, pending, and scheduled orders, including clinic medications orders, diagnostic test orders, procedure orders and consult orders; where the start date of the order is 45 days before the date of the Encounter or 45 days after the date of theEncounter. The data comes from all [facility]. Test Date/Time Test Type Test Details Facility Name Jun 12, 2022 12:00 AM Laboratory - Chemistry Order CBC & DIFF BLOOD ONCO SP ONCE [facility] Jun 12, 2022 12:00 AM Laboratory - Chemistry Order COMPREHENSIVE METABOLIC PANEL+MG PLASMA ONCO SP ONCE [facility] Jun 12, 2022 12:00 AM Laboratory - Chemistry Order TSH W/REFLEX TO FREE T4 PLASMA ONCO SP ONCE [facility] July 14, 2022 12:00 AM Laboratory - Blood Bank Order ABO/RH - LAB BLOOD WC [facility] July 14, 2022 02:05 PM Laboratory - Blood Bank Order TYPE & SCREEN - LAB BLOOD [facility] Aug 07, 2022 11:23 AM Laboratory - Chemistry Order DRUG SCREEN PANEL,URINE URINE ONCE [facility] Aug 23, 2022 10:47 AM Laboratory - Chemistry Order URINALYSIS URINE ER STAT [facility] Lab Results: +/- 30 days [...] July 19, 2022 05:00 PM Reporting Lab: [facility] [id number] Performing Lab: [facility] [address] FINGERSTICK GLUCOSE 132 70-100 July 19, 2022 07:[address] [facility] COMPREHENSIVE METABOLIC PANEL+MG Specimen Type: PLASMA No comment entered. Ordering Provider: MACKENZIE COTTER Report Released Date/Time: July 18, 2022 05:40 PM Reporting Lab: [facility] [address] Performing Lab: [facility] [address] CREATININE 0.9 0.7-1.2 UREA NITROGEN 24 8-26 [...] July 18, 2022 05:40 PM Reporting Lab: [facility] [address] Performing Lab: [facility] [address] IRON 28 L 65-175 TIBC,CALCULATE D 223 L 250-425 FERRITIN 73.7 21.8-274.7 IRON SATURATION 13 L 20-50 TRANSFERRIN 178 163-382 July 19, 2022 07:[address] [facility] CBC Specimen Type: BLOOD No comment entered. Ordering Provider: MACKENZIE COTTER Report Released Date/Time: July 18, 2022 05:40 PM Reporting Lab: [facility] [address] Performing Lab: [facility] [address] WBC 7.73 4.0-11.0 RBC 2.42 L 4.6-6.2 [...] July 19, 2022 11:54 AM Reporting Lab: [facility] [address] Performing Lab: [facility] [address] FINGERSTICK GLUCOSE 137 70-100 July 18, 2022 10:[address] [facility] FINGERSTICK GLUCOSE Specimen Type: BLOOD Comment: Save Result Nurse Notified Ordering Provider: MACKENZIE COTTER Report Released Date/Time: July 18, 2022 11:06 PM Reporting Lab: [facility] [address] Performing Lab: [facility] [address] FINGERSTICK GLUCOSE 163 70-100 July 17, 2022 06:[address] [facility] BASIC METABOLIC PANEL+MG Specimen Type: PLASMA No comment entered. Ordering Provider: DANG VALLE R Report Released Date/Time: July 16, 2022 09:37 AM Reporting Lab: [facility] [address] Performing Lab: [facility] [address] CREATININE 0.8 0.7-1.2 UREA NITROGEN 23 8-26 [...] July 16, 2022 09:37 AM Reporting Lab: [facility] [address] Performing Lab: [place] [phone] .INR 1.0 0.8-1.1 .PT 11.5 9.4-12.5 July 17, 2022 06:[address] [facility] CBC Specimen Type: BLOOD No comment entered. Ordering Provider: DANG VALLE R Report Released Date/Time: July 16, 2022 09:37 AM Reporting Lab: [facility] [address] Performing Lab: [facility] [address] WBC 6.05 4.0-11.0 RBC 3.77 L 4.6-6.2 [...] July 13, 2022 11:04 AM Reporting Lab: [facility] [address] Performing Lab: [facility] [address] COVID-19 (CEPHEID) Not Detected Not Detected INFLUENZA A (PCR) Not Detected Not Detected INFLUENZA B (PCR) Not Detected Not Detected RSV (PCR) Not Detected Not Detected July 13, 2022 11:[address] [facility] C-REACTIVE PROTEIN Specimen Type: SERUM Comment: Automated Differential Performed Ordering Provider: WHITNEY ANDERSON Report Released Date/Time: July 13, 2022 11:04 AM Reporting Lab: [facility] [address] Performing Lab: [facility] [address] C-REACTIVE PROTEIN 1.17 <5.00 July 13, 2022 11:[address] [facility] SED RATE Specimen Type: BLOOD No comment entered. Ordering Provider: WHITNEY ANDERSON Report Released Date/Time: July 13, 2022 11:04 AM Reporting Lab: [facility] [address] Performing Lab: [facility] [address] SED RATE 10 5-15 July 13, 2022 11:[address] [facility] PROTHROMBIN TIME/INR Specimen Type: PLASMA No comment entered. Ordering Provider: WHITNEY ANDERSON Report Released Date/Time: July 13, 2022 11:04 AM Reporting Lab: [facility] [address] Performing Lab: [facility] [address] .INR 0.9 0.8-1.1 .PT 11.1 9.4-12.5 July 13, 2022 11:[address] [facility] CBC & DIFF Specimen Type: BLOOD Comment: Automated Differential Performed Ordering Provider: WHITNEY ANDERSON Report Released Date/Time: July 13, 2022 11:04 AM Reporting Lab: [facility] [address] Performing Lab: [facility] [address] WBC 8.82 4.0-11.0 RBC 3.89 L 4.6-6.2 [...] July 13, 2022 11:04 AM Reporting Lab: [facility] [address] Performing Lab: [facility] [address] CREATININE 1.0 0.7-1.2 UREA NITROGEN 16 8-26 [...] 125/74 mm[Hg] 18 /min 95 % 0 [facility] July 20, 2022 07:41 PM 97.8 F 70 /min 117/72 mm[Hg] 18 /min 96 % 1 [facility] July 20, 2022 04:02 PM 97.6 F 64 /min 112/69 mm[Hg] 18 /min 93 % 0 JASMIN JONES [facility] July 20, 2022 01:00 PM 5 JASMIN JONES [facility] July 20, 2022 12:02 PM 8 [facility] Social History: Smoking Status (Most [...] Mar 18, 2003 ADVANCE DIRECTIVE FARHAT MELGAR [facility] Radiology Reports: +/- 30 days of [...] 07:50 AM CHEST 1 VIEW: MARYJO WAGNER [id number] -1950 M Exm Date: JULY 20, 2022@07:50 Req Phys: MACKENZIE COTTER Pat Loc: 07-20-2022@08:26 Img Loc: MAIN X-RAY Service: PRIMARY CARE - MED OFFICE (Case [id number] COMPLETE) CHEST 1 VIEW (RAD Detailed) CPT:49056 Proc Modifiers : PORTABLE EXAM Reason for Study: see below. thanks. Clinical History: IS NOT under investigation for COVID-19 or is COVID-19 negative Please further evaluate for acute airspace disease given o2 requirement. Thanks. Responsible provider name and phone number to notify for critical findings if other than user placing the order and pager listed below: User placing orders pager: [phone] same LAST CREATININE 0.9 (07/19/22) Report Status: Verified Date Reported: JULY 20, 2022 Date Verified: JULY 20, 2022 [employer] E-Sig:/ES/JAMIE MIGUEL MD Report: EXAM: CHEST 1 VIEW HISTORY: see below. thanks. Reason for Study: see below. thanks. [facility] IS NOT under investigation for COVID-19 or is COVID-19 negative Please further evaluate for acute airspace disease given o2 requirement. Thanks. Responsible provider name and phone number to notify for critical findings if other than user placing the order and pager listed below: User placing orders pager: [phone] same LAST CREATININE 0. COMPARISON: Chest CT [...] Primary Interpreting Staff: JAMIE MIGUEL MD, RADIOLOGIST ([employer]) /JAMIE FRANCES [facility] July 18, 2022 12:59 PM ELBOW LEFT 2 VIEWS: MAYRJO WAGNER [id number] -1950 M Exm Date: JULY 18, 2022@12:59 Req Phys: LEIF BALBUENA Loc: OR-PACU/07-18-2022@13:59 Img Loc: MAIN X-RAY Service: ZZSURGICAL SERVICE (Case [id number] COMPLETE) ELBOW LEFT 2 VIEWS (RAD Detailed) CPT:82949 Proc Modifiers : PORTABLE EXAM, OPERATING ROOM EXAM Reason for Study: post-op Clinical History: post-op Report Status: Verified Date Reported: JULY 18, 2022 Date Verified: JULY 18, 2022 [employer] E-Sig:/ES/JAKUB LEE MD Report: EXAM: ELBOW LEFT [...] Primary Interpreting Staff: JAKUB LEE MD, RADIOLOGIST ([employer]) /JAKUB LUCERO [facility] July 18, 2022 07:30 AM FLUORO UP TO 1 HR PHYSICIAN TIME: MARYJO WAGNER [id number] -1950 M Exm Date: JULY 18, 2022@07:30 Req Phys: LEIF BALBUENA Loc: OR-PACU07-18-2022@13:14 Img Loc: MAIN X-RAY Service: PRIMARY CARE - MED OFFICE (Case [id number] COMPLETE) FLUORO UP TO 1 HR PHYSICIAN TIME (RAD Detailed) CPT:87471 Proc Modifiers : PORTABLE EXAM, OPERATING ROOM EXAM, LEFT Reason for Study: Left distal humerous ORIF Clinical History: OR 7 Pathologic distal humeral shaft fracture Responsible provider name and phone number to notify for critical findings if other than user placing the order and pager listed below: User placing orders pager: FARZAD, JChino [phone] LAST CREATININE 0.8 (07/17/22) Report Status: Electronically Filed Date Reported: JULY 18, 2022 Report: Impression: Please see the full report for this procedure in [facility] patient progress notes. Fluoro guidance was provided during this procedure, but the study was not reviewed or verified by a [facility] radiologist. The radiation exposure dose has been recorded in the patient's chart. If you are unable to view this data, please contact the Imaging Department. VERIFIED BY: / *ELECTRONICALLY FILED* [facility] July 17, 2022 03:28 PM ABDOMINAL AORTOGRAM (P): MARYJO WAGNER [id number] -1950 Exm Date: JULY 17, 2022@15:28 Req Phys: MALCOM LANGLEY Loc: 07-17-2022@15:54 Img Loc: INTERVENTIONAL RADIOLOGY Service: PRIMARY CARE - MED OFFICE (Case [id number] COMPLETE) ANGIOGRAPHY EXTREMITY UNILAT S&I (ANI Detailed) CPT:77149 Reason for Study: codes (Case 528 COMPLETE) IR AORTOGRAPHY ABDOMINAL W/O RUNO(ANI Detailed) CPT:49870 (Case 529 COMPLETE) IR FOREIGN BODY REMOVAL INTRAVASC(ANI Detailed) CPT:26051 (Case 532 COMPLETE) IR NEEDLE/INTRACATH PLACEMENT EXT(ANI Detailed) CPT:55383 (Case 533 COMPLETE) IR PLACEMENT OCCLUSIVE DEVICE SAM(ANI Detailed) CPT:G0269 Clinical History: codes Report Status: Verified Date Reported: JULY 17, 2022 Date Verified: JULY 17, 2022 [employer] E-Sig:/ES/MALCOM LANGLEY MD Report: RADIOLOGIST: Malcom Langley [...] angiogram and runoff. 12. Closure of right PORT ENGINEER with Angio-Seal device. HISTORY: Metastatic renal cell [...] into the left brachial artery. The 5 [place] sheath was exchanged for a 6 [place] sheath that was advanced into the left [...] arteries. Sheath and catheters were removed and PORT ENGINEER arteriotomy was closed using Angioseal. There is patent hemostasis. No bleeding or hematoma noted. Sterile dressing applied. 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 Primary Interpreting Staff: MALCOM LANGLEY MD, INTERVENTIONAL RADIOLOGIST ([employer]) /MALCOM HE [facility] July 17, 2022 07:30 AM RENAL ARTERY EMBOLIZATION (P): MARYJO WAGNER [id number] -1950 M Exm Date: JULY 17, 2022@07:30 Req Phys: WESTON VASQUEZ [facility] Loc: 07-17-2022@15:46 Img Loc: INTERVENTIONAL RADIOLOGY Service: PRIMARY CARE - MED OFFICE (Case 130 COMPLETE) IR TRANSCATH EMBOLIZATION W/ANGIO(ANI Detailed) CPT:89047 Reason for Study: embolization of RCC mets to left humerus (Case 131 COMPLETE) IR ARTERIAL EMBOLIZATION OTHER TH(ANI Detailed) CPT:80252 (Case 132 COMPLETE) IR US GUIDANCE VASCULAR ACCESS (ANI Detailed) CPT:70451 Clinical History: [facility] IS NOT under investigation for COVID-19 or [...] pager listed below: User placing orders pager: [phone] LAST CREATININE 1.0 (07/13/22) Report Status: Verified Date Reported: JULY 17, 2022 Date Verified: JULY 17, 2022 [employer] E-Sig:/ES/MALCOM LANGLEY MD Report: RADIOLOGIST: Malcom Langley [...] angiogram and runoff. 12. Closure of right PORT ENGINEER with Angio-Seal device. HISTORY: Metastatic renal cell [...] into the left brachial artery. The 5 [place] sheath was exchanged for a 6 [place] sheath that was advanced into the left [...] arteries. Sheath and catheters were removed and PORT ENGINEER arteriotomy was closed using Angioseal. There is patent hemostasis. No bleeding or hematoma noted. Sterile dressing applied. 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 Primary Interpreting Staff: MALCOM LANGLEY MD, INTERVENTIONAL RADIOLOGIST ([employer]) /MALCOM HE [facility] July 14, 2022 06:44 AM HUMERUS LEFT MINIMUM 2 VIEWS: MARYJO WAGNER [id number] -1950 M Exm Date: JULY 14, 2022@06:44 Req Phys: WESTON VASQUEZ Pat Loc: 07-14-2022@07:13 Img Loc: MAIN X-RAY Service: PRIMARY CARE - MED OFFICE (Case [id number] COMPLETE) HUMERUS LEFT MINIMUM 2 VIEWS (RAD Detailed) CPT:08010 Reason for Study: post reduction Clinical History: Report Status: Verified Date Reported: JULY 14, 2022 Date Verified: JULY 14, 2022 [employer] E-Sig: Report: HUMERUS LEFT MINIMUM 2 VIEWS [...] less likely. READING PHYSICIAN: Xavier Merrill MD -[id number] 07/14/2022 5:11 [facility] National Teleradiology Program [phone] (For Medical Practitioner Use Only) Attention Patients / Veterans: If you have questions or concerns about these test results, please contact your ordering provider or primary care team. Primary Interpreting Staff: RADIOLOGY,OUTSIDE SERVICE, Staff Physician / RADIOLOGY,OUTSIDE SERVICE [facility] July 13, 2022 10:07 AM HUMERUS LEFT MINIMUM 2 VIEWS: MARYJO WAGNER [id number] -1950 M Exm Date: JULY 13, 2022@10:07 Req Phys: WHITNEY ANDERSON Loc: [facility] EMERGENCY DEPT WALK-IN (Re Img Loc: MAIN X-RAY Service: Unknown (Case 215 COMPLETE) HUMERUS LEFT MINIMUM 2 VIEWS (RAD Detailed) CPT:35958 Proc Modifiers : LEFT Reason for Study: L arm pain Clinical History: [facility] IS NOT under investigation for COVID-19 or is COVID-19 negative Atraumatic left upper extremity pain that is located midshaft humerus distally to the mid forearm. Clinical concern for dislocation versus fracture versus bone mets Responsible provider name and phone number to notify for critical findings if other than user placing the order and pager listed below: User placing orders pager: [phone] LAST CREATININE 0.8 (05/10/22) Report Status: Verified Date Reported: JULY 13, 2022 Date Verified: JULY 13, 2022 [employer] E-Sig:/ES/ALBINA COWAN MD, FACR, CCD Report: EXAMINATION: [...] Staff: ALBINA COWAN MD, FACR, STAFF RADIOLOGIST ([employer]) /BSF ALBINA COWAN [facility] July 13, 2022 10:07 AM ELBOW LEFT 3 OR MORE VIEWS: MARYJO WAGNER [id number] -1950 M Ex Date: JULY 13, 2022@10:07 Req Phys: WHITNEY ANDERSON Pat Loc: [facility] EMERGENCY DEPT WALK-IN (Re Img Loc: MAIN X-RAY Service: Unknown (Case [id number] COMPLETE) ELBOW LEFT 3 OR MORE VIEWS (RAD Detailed) CPT:53704 Proc Modifiers : LEFT Reason for Study: [...] pager listed below: User placing orders pager: [phone] LAST CREATININE 0.8 (05/10/22) Report Status: Verified Date Reported: JULY 13, 2022 Date Verified: JULY 13, 2022 [employer] E-Sig:/ES/ALBINA COWAN MD, FACR, CCD Report: EXAMINATION: [...] Staff: ALBINA COWAN MD, FACR, STAFF RADIOLOGIST ([employer]) /BSF ALBINA COWAN [facility] July 13, 2022 10:07 AM FOREARM LEFT 2 VIEWS: MARYJO WAGNER [id number] -1950 M Exm Date: JULY 13, 2022@10:07 Req Phys: WHITNEY ANDERSON Pat Loc: [facility] EMERGENCY DEPT WALK-IN (Re Img Loc: MAIN X-RAY Service: Unknown (Case [id number] COMPLETE) FOREARM LEFT 2 VIEWS (RAD Detailed) CPT:64825 Proc Modifiers : LEFT Reason for Study: [...] pager listed below: User placing orders pager: [phone] LAST CREATININE 0.8 (05/10/22) Report Status: Verified Date Reported: JULY 13, 2022 Date Verified: JULY 13, 2022 [employer] E-Sig:/SANGITA/ALBINA COWAN MD, FACR, CCD Report: EXAMINATION: [...] Staff: ALBINA COWAN MD, FACR, STAFF RADIOLOGIST ([employer]) /BSF ALBINA COWAN [facility] Pathology Reports: +/- [...] Reporting Lab: [facility] [CLIA# [id number]] [place] [address] - - - - - - - [...] SANDOVAL STAFF PATHOLOGIST, PATHOLOGY & LABORATORY MED [facility] Signed July 21, 2022@14:37 Performing Laboratory: Surgical Pathology Report Performed By: [facility] [CLIA# [id number]] [place] [address] $FTR - - - - - - [...] - - MARYJO WAGNER STANDARD FORM 515 ID:[id number] SEX:M :1950 AGE: 72 LOC:[facility]P PATHOLOGY PRO FEE ADM:June DX:PATHOLOGIC FX LF HUMERUS PCP: Leif Balbuena MD /sangita/ JIAN SANDOVAL STAFF PATHOLOGIST, PATHOLOGY & LABORATORY MED C Signed: 07/21/2022 14:[address] [facility] Encounter Notes: All associated encounter notes This section contains the clinical notes associated to the Encounter. Date/Time Encounter Note(s) Provider Source July 20, 2022 02:26 PM ANESTHESIOLOGY NOT E: LOCAL TITLE: ANESTHESIA PROGRESS NOTE STANDARD TITLE: ANESTHESIOLOGY NOTE DATE OF NOTE: JULY 20, 2022@14:26 ENTRY DATE: JULY 20, 2022@14:27:06 AUTHOR: PATRICIA CHOI EXP COSIGNER: URGENCY: STATUS: COMPLETED Acute Regional Pain Service Note JULY 20, 2022 MARYJO WAGNER is POD 2 s/p left pathologic distal humerus fracture ORIF, with tumor excision and cement augmentation Subjective/Events in the last 24 hours: Pt doing well and states pain is well controlled. He states he would like to take peripheral nerve catheter home upon discharge. Denies paresthesias, tinitus, and dysgusia. Additional adjuncts for pain? yes Working with PT. Current pain: 6/10 Average pain in the last 24 hours: 5/10 Worst pain in the last 24 hours: 6/10 Vitals: Temp: 97.4 F [36.3 C] (07/20/2022 11:40) BP: 129/74 (07/20/2022 11:40) Pulse: 67 (07/20/2022 11:40) SpO2: 93% (07/20/2022 11:40) On oxygen? RR: 18 (07/20/2022 11:40) Exam: Awake, alert, no acute distress Regular pulse Strength /5. Normal sensation to touch. Infraclavicular catheter infusing at 10 mL/hr of 0.2% ropivacaine Dressing clean, dry and Intact. No signs of infection. OnQ ball with 24 hours of infusion remaining. Labs: PLT 155 (07/19/22) INR 1.0 (07/17/22) A/P: Pain well controlled. No signs of local anesthetic toxicity. No signs of bleeding or infection. Continue infusion at current rate. Please contact APS with further questions or concerns. /sangita/ PATRICIA CHOI MDA ANESTHESIOLOGIST Signed: 07/20/2022 14:[address] [facility]
--- OUTSIDE RECORDS SUMMARY | 2023-03-24 08:46 | XMS_ITS | Encounter Summary ---
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 of Vetera [facility] Address [address] [place] [id number] Support Name Relationship Address Phone DOREEN WAGNER Next of Kin [phone] [place] [phone] DOREEN Emergency Contact [phone] [place] [phone] Insurance Providers: All historical and current [...] ADVANTAGE [facility] June 26, 2016 [id number] CARSONLELIAJOAN SHELLEY PATIENT HU[employer]NA MCR (WNR) MEDICARE ADVANTAGE [facility] June 26, 2016 [id number] [phone] JOAN WAGNER KARSTEN PATIENT [employer] MCR (WNR) MEDICARE ADVANTAGE [facility] ([facility]) June 26, 2016 [id number] [phone] JOAN WAGNER PATIENT Selected Encounter This section includes the information on record at [place] for the Encounter. Date/Time Encounter Type Encounter Description Reason Provider Source July 20, 2022 09:30 AM THERAPEUTIC EXERCISES PHYSICAL THERAPY ICD-10-CM R26.89 Other abnormalities of gait and mobility LADI KNIGHT Encounter Template Text not used by [place] Assessments - Encounter Diagnoses This section includes the primary and secondary diagnoses documented for the Encounter. Date/Time Primary/Secondary Diagnosis Diagnosis Name Provider Source July 20, 2022 04:22 PM PRIMARY Other abnormalities of gait and mobility EUGENEROBINJohn Payton [facility] Plan of Treatment: Future Appointments (+ 6 months) and Future Tests (+/- 45 days) The Plan of Treatment section includes future care activities for the patient from all [place] [facility] company. This section includes future appointments and future orders which are active, pending or scheduled. Future Appointments This section includes appointments that were scheduled to occur 6 months from the date of the Encounter, up to a maximum of 20 appointments. The data comes from all [facility]. Appointment Date/Time Appointment Type Appointme nt Facility Name Jul 28, 2022 10:45 AM AMBULATORY - MEDICINE [facility] Aug 13, 2022 06:13 PM AMBULATORY - MEDICINE [facility] Aug 23, 2022 09:30 AM AMBULATORY - SURGERY [facility] Aug 23, 2022 09:45 AM AMBULATORY - NONE [facility] Aug 23, 2022 10:30 AM AMBULATORY - MEDICINE [facility] Aug 23, 2022 10:31 AM AMBULATORY - MEDICINE [facility] Sep 06, 2022 10:15 AM AMBULATORY - SURGERY [facility] Oct 25, 2022 07:00 AM [facility] Oct 25, 2022 07:30 AM AMBULATORY - SURGERY [facility] Oct 25, 2022 09:00 AM AMBULATORY SURGERY [facility] Active, [...] of theEncounter. The data comes from all [facility]. Test Date/Time Test Type Test Details Facility Name Jun 12, 2022 12:00 AM Laboratory - Chemistry Order COMPREHENSIVE METABOLIC PANEL+MG PLASMA ONCO SP ONCE [facility] Jun 12, 2022 12:00 AM Laboratory - Chemistry Order CBC & DIFF BLOOD ONCO SP ONCE [facility] Jun 12, 2022 12:00 AM Laboratory - Chemistry Order TSH W/REFLEX TO FREE T4 PLASMA ONCO SP ONCE [facility] July 14, 2022 12:00 AM Laboratory - Blood Bank Order ABO/RH - LAB BLOOD WC [facility] July 14, 2022 02:05 PM Laboratory - Blood Bank Order TYPE & SCREEN - LAB BLOOD WC [facility] Aug 07, 2022 11:23 AM Laboratory - Chemistry Order DRUG SCREEN PANEL,URINE URINE WC ONCE [facility] Aug 23, 2022 10:47 AM Laboratory - Chemistry Order URINALYSIS URINE ER STAT [facility] Lab Results: +/- 30 days of the [...] Range Comment July 19, 2022 04:40 PM [facility] FINGERSTICK GLUCOSE Specimen Type: BLOOD Comment: Save Result Nurse Notified Ordering Provider: MACKENZIE COTTER Report Released Date/Time: July 19, 2022 05:00 PM Reporting Lab: [facility] [phone] Performing Lab: [facility] [address] FINGERSTICK GLUCOSE 132 70-100 July 19, 2022 07:13 AM [facility] COMPREHENSIVE METABOLIC PANEL+MG Specimen Type: PLASMA No comment entered. Ordering Provider: MACKENZIE COTTER Report Released Date/Time: July 18, 2022 05:40 PM Reporting Lab: [facility] [phone] Performing Lab: [facility] [phone] CREATININE 0.9 0.7-1.2 UREA NITROGEN 24 8-26 [...] See_Commen t July 19, 2022 07:13 AM [facility] IRON GROUP Specimen Type: SERUM No comment entered. Ordering Provider: MACKENZIE COTTER Report Released Date/Time: July 18, 2022 05:40 PM Reporting Lab: [facility] [address] Performing Lab: [facility] [address] IRON 28 L 65-175 TIBC,CALCULATE D 223 L 250-425 FERRITIN 73.7 21.8-274.7 IRON SATURATION 13 L 20-50 TRANSFERRIN 178 163-382 July 19, 2022 07:13 AM [facility] CBC Specimen Type: BLOOD No comment entered. Ordering Provider: MACKENZIE COTTER Report Released Date/Time: July 18, 2022 05:40 PM Reporting Lab: [facility] [address] Performing Lab: [facility] [address] WBC 7.73 4.0-11.0 RBC 2.42 L 4.6-6.2 HGB 8.2 L 13.5-17.9 HCT 23.8 L 41-54 MCV 98.3 80-100 MCH 33.9 H 27-33 MCHC 34.5 32.0-37.5 PLT 155 150-400 MPV 9.6 7.4-10.4 RDW 13.5 11.5-14.5 July 19, 2022 05:44 AM [facility] FINGERSTICK GLUCOSE Specimen Type: BLOOD Comment: Save Result Nurse Notified Ordering Provider: MACKENZIE COTTER Report Released Date/Time: July 19, 2022 11:54 AM Reporting Lab: [facility] [phone] Performing Lab: [facility] [address] FINGERSTICK GLUCOSE 137 70-100 July 18, 2022 10:51 PM [facility] FINGERSTICK GLUCOSE Specimen Type: BLOOD Comment: Save Result Nurse Notified Ordering Provider: MACKENZIE COTTER Report Released Date/Time: July 18, 2022 11:06 PM Reporting Lab: [facility] [phone] Performing Lab: [facility] [address] FINGERSTICK GLUCOSE 163 70-100 July 17, 2022 06:51 AM [facility] BASIC METABOLIC PANEL+MG Specimen Type: PLASMA No comment entered. Ordering Provider: FOSSLAND,DANG R Report Released Date/Time: July 16, 2022 09:37 AM Reporting Lab: [facility] [address] Performing Lab: [facility] [address] CREATININE 0.8 0.7-1.2 UREA NITROGEN 23 8-26 GLUCOSE 107 H 70-100 SODIUM 139 136-145 POTASSIUM 3.9 3.5-5.1 CHLORIDE 106 98-107 CO2 28 22-29 CALCIUM 9.1 8.4-10.2 MAGNESIUM 1.9 1.6-2.6 ANION GAP 5 5-15 .CREAT EGFR(CKD-EPI) >90 See_Commen t July 17, 2022 06:51 AM [facility] PROTHROMBIN TIME/INR Specimen Type: PLASMA No comment entered. Ordering Provider: DANG VALLE Report Released Date/Time: July 16, 2022 09:37 AM Reporting Lab: [facility] [phone] Performing Lab: [place] [phone] .INR 1.0 0.8-1.1 .PT 11.5 9.4-12.5 July 17, 2022 06:51 AM [facility] CBC Specimen Type: BLOOD No comment entered. Ordering Provider: DANG VALLE Report Released Date/Time: July 16, 2022 09:37 AM Reporting Lab: [facility] [phone] Performing Lab: [facility] [address] WBC 6.05 4.0-11.0 RBC 3.77 L 4.6-6.2 HGB 12.7 L 13.5-17.9 HCT 36.0 L 41-54 MCV 95.5 80-100 MCH 33.7 H 27-33 MCHC 35.3 32.0-37.5 PLT 179 150-400 MPV 9.4 7.4-10.4 RDW 13.2 11.5-14.5 July 13, 2022 11:22 AM [facility] COVID-19 AND FLU/RSV DIAG PANEL(CEPHEID) Specimen Typ e: NASOPHARYNGEAL Comment: Cepheid GeneXpert (618) Ordering Provider: WHITNEY ANDERSON Report Released Date/Time: July 13, 2022 11:04 AM Reporting Lab: [facility] [phone] Performing Lab: [facility] [address] COVID-19 (CEPHEID) Not Detected Not Detected INFLUENZA A (PCR) Not Detected Not Detected INFLUENZA B (PCR) Not Detected Not Detected RSV (PCR) Not Detected Not Detected July 13, 2022 11:00 AM [facility] C-REACTIVE PROTEIN Specimen Type: SERUM Comment: Automated Differential Performed Ordering Provider: WHITNYE ANDERSON Report Released Date/Time: July 13, 2022 11:04 AM Reporting Lab: [facility] [address] Performing Lab: [facility] [address] C-REACTIVE PROTEIN 1.17 <5.00 July 13, 2022 11:00 AM [facility] PROTHROMBIN TIME/INR Specimen Type: PLASMA No comment entered. Ordering Provider: WHITNEY ANDERSON Report Released Date/Time: July 13, 2022 11:04 AM Reporting Lab: [facility] [address] Performing Lab: [facility] [address] .INR 0.9 0.8-1.1 .PT 11.1 9.4-12.5 July 13, 2022 11:00 AM [facility] SED RATE Specimen Type: BLOOD No comment entered. Ordering Provider: WHITNEY ANDERSON Report Released Date/Time: July 13, 2022 11:04 AM Reporting Lab: [facility] [address] Performing Lab: [facility] [address] SED RATE 10 5-15 July 13, 2022 11:00 AM [facility] CBC & DIFF Specimen Type: BLOOD Comment: Automated Differential Performed Ordering Provider: WHITNEY ANDERSON Report Released Date/Time: July 13, 2022 11:04 AM Reporting Lab: [facility] [address] Performing Lab: [facility] [address] WBC 8.82 4.0-11.0 RBC 3.89 L 4.6-6.2 [...] 0.03 0-0.1 July 13, 2022 11:00 AM [facility] COMPREHENSIVE METABOLIC PANEL+MG Specimen Type: PLASMA Comment: Automated Differential Performed Ordering Provider: WHITNEY ANDERSON Report Released Date/Time: July 13, 2022 11:04 AM Reporting Lab: [facility] [phone] Performing Lab: [facility] [phone] CREATININE 1.0 0.7-1.2 UREA NITROGEN 16 8-26 [...] 125/74 mm[Hg] 18 /min 95 % 0 [facility] July 20, 2022 07:41 PM 97.8 F 70 /min 117/72 mm[Hg] 18 /min 96 % 1 [facility] July 20, 2022 04:02 PM 97.6 F 64 /min 112/69 mm[Hg] 18 /min 93 % 0 JASMIN JONES [facility] July 20, 2022 01:00 PM 5 JASMIN JONES [facility] July 20, 2022 12:02 PM 8 [facility] Social History: Smoking Status (Most current) and [...] 10, 2022 09:15 AM VA-TOBACCO FORMER USER [facility] Tobacco Use History This section includes a history of the smoking, or tobacco-related health factors, that were collected on or before the date of the Encounter. The data comes from the [place] facility where the Encounter took place. Date/Time Smoking Status/Tobacco Use Comment F acility May 10, 2022 09:15 AM VA-TOBACCO QUIT 15 YRS OR MORE [facility] May 11, 2021 09:15 AM VA-TOBACCO FORMER USER [facility] May 11, 2021 09:15 AM VA-TOBACCO QUIT 15 YRS OR MORE [facility] Nov 22, 2018 01:36 PM VA-TOBACCO NEVER USED [facility] Nov 12, 2017 07:35 AM FORMER TOBACCO USER 7Y OR GREATE R [facility] Nov 06, 2016 09:05 AM FORMER TOBACCO USER 7Y OR GREATE R [facility] Sep 27, 2015 09:42 AM FORMER TOBACCO USER 7Y OR GREATE R [facility] Sep 25, 2014 07:55 AM FORMER TOBACCO USER 7Y OR GREATE R [facility] Sep 08, 2013 07:48 AM FORMER TOBACCO USER 7Y OR GREATE R [facility] July 09, 2012 09:20 AM FORMER TOBACCO USE >1Y <7Y [facility] Jun 06, 2011 07:53 AM FORMER TOBACCO USE >1Y <7Y [facility] Sep 09, 2009 03:03 PM FORMER TOBACCO USE >1Y <7Y [facility] Aug 11, 2008 01:06 PM FORMER TOBACCO USE <1Y [facility] Sep 19, 2007 02:52 PM CURRENT TOBACCO USER [facility] Sep 03, 2006 03:32 PM CURRENT TOBACCO USER [facility] Advance Directives: All historical and current Section Date Range: From patient's date of to the date document was created. This section includes ALL of a patient's completed or amended [place] Advance and Rescinded Directives. The entries below indicate that a directive exists for the patient, but an actual copy is not included with this document. The data comes from all [place] facilities. Date Advance Directives Provider Source Mar 18, 2003 ADVANCE DIRECTIVE MELGARFARHAT [facility] Radiology Reports: +/- 30 [...] 07:50 AM CHEST 1 VIEW: MARYJO WAGNER [id number] -1950 M Exm Date: JULY 20, 2022@07:50 Req Phys: MACKENZIE COTTER Pat Loc: 07-20-2022@08:26 Img Loc: MAIN X-RAY Service: PRIMARY CARE - MED OFFICE (Case [id number] COMPLETE) CHEST 1 VIEW (RAD Detailed) CPT:42265 Proc Modifiers : PORTABLE EXAM Reason for Study: see below. thanks. Clinical History: [place] IS NOT under investigation for COVID-19 or is COVID-19 negative Please further evaluate for acute airspace disease given o2 requirement. Thanks. Responsible provider name and phone number to notify for critical findings if other than user placing the order and pager listed below: User placing orders pager: [phone] same LAST CREATININE 0.9 (07/19/22) Report Status: Verified Date Reported: JULY 20, 2022 Date Verified: JULY 20, 2022 Web Content Editor E-Sig:/ES/JAMIE MIGUEL MD Report: EXAM: CHEST 1 [...] pager listed below: User placing orders pager: [phone] same LAST CREATININE 0. COMPARISON: Chest CT [...] Primary Interpreting Staff: JAMIE MIGUEL MD, RADIOLOGIST (Web Content Editor) /JAMIE FRANCES [facility] July 18, 2022 12:59 PM ELBOW LEFT 2 VIEWS: MARYJO WAGNER [id number] -1950 M Exm Date: JULY 18, 2022@12:59 Req Phys: LEIF BALBUENA Loc: OR-PACU/07-18-2022@13:59 Img Loc: MAIN X-RAY Service: ZZSURGICAL SERVICE (Case [id number] COMPLETE) ELBOW LEFT 2 VIEWS (RAD Detailed) CPT:34736 Proc Modifiers : PORTABLE EXAM, OPERATING ROOM EXAM Reason for Study: post-op Clinical History: post-op Report Status: Verified Date Reported: JULY 18, 2022 Date Verified: JULY 18, 2022 Web Content Editor E-Sig:/ES/JAKUB LEE MD Report: EXAM: ELBOW LEFT [...] Primary Interpreting Staff: JAKUB LEE MD, RADIOLOGIST (Web Content Editor) /JAKUB LUCERO [facility] July 18, 2022 07:30 AM FLUORO UP TO 1 HR PHYSICIAN TIME: MARYJO WAGNER [id number] -1950 M Exm Date: JULY 18, 2022@07:30 Req Phys: LEIF BALBUENA Loc: OR-PACU/07-18-2022@13:14 Img Loc: MAIN X-RAY Service: PRIMARY CARE - MED OFFICE (Case [id number] COMPLETE) FLUORO UP TO 1 HR PHYSICIAN TIME (RAD Detailed) CPT:26665 Proc Modifiers : PORTABLE EXAM, OPERATING ROOM EXAM, LEFT Reason for Study: Left distal humerous ORIF Clinical History: OR 7 Pathologic distal humeral shaft fracture Responsible provider name and phone number to notify for critical findings if other than user placing the order and pager listed below: User placing orders pager: Henry BALBUENA [phone] LAST CREATININE 0.8 (07/17/22) Report Status: Electronically Filed Date Reported: JULY 18, 2022 Report: Impression: Please see the full report for this procedure in [facility] patient progress notes. Fluoro guidance was provided during this procedure, but the study was not reviewed or verified by a [facility] radiologist. The radiation exposure dose has been recorded in the patient's chart. If you are unable to view this data, please contact the Imaging Department. VERIFIED BY: / *ELECTRONICALLY FILED* [facility] July 17, 2022 03:28 PM ABDOMINAL AORTOGRAM (P): MARYJO WAGNER [id number] -1950 M Exm Date: JULY 17, 2022@15:28 Req Phys: MALCOM LANGLEY Loc: 07-17-2022@15:54 Img Loc: INTERVENTIONAL RADIOLOGY Service: PRIMARY CARE - MED OFFICE (Case [id number] COMPLETE) ANGIOGRAPHY EXTREMITY UNILAT S&I (ANI Detailed) CPT:38772 Reason for Study: codes (Case 528 COMPLETE) IR AORTOGRAPHY ABDOMINAL W/O RUNO(ANI Detailed) CPT:64978 (Case 529 COMPLETE) IR FOREIGN BODY REMOVAL INTRAVASC(ANI Detailed) CPT:42895 (Case 532 COMPLETE) IR NEEDLE/INTRACATH PLACEMENT EXT(ANI Detailed) CPT:09615 (Case 533 COMPLETE) IR PLACEMENT OCCLUSIVE DEVICE SAM(ANI Detailed) CPT:G0269 Clinical History: codes Report Status: Verified Date Reported: JULY 17, 2022 Date Verified: JULY 17, 2022 Web Content Editor E-Sig:/ES/MALCOM LANGLEY MD Report: RADIOLOGIST: Malcom Langley [...] angiogram and runoff. 12. Closure of right ENGINEERING AIDE with Angio-Seal device. HISTORY: Metastatic renal [...] Sheath removed over guidewire and a 5 brazilian vascular sheath advanced over guidewire into the artery. An H1 catheter was advanced along with the guidewire into the thoracic arch and the left subclavian artery was selected. Catheter and the guidewire were advanced into the left brachial artery. The 5 Bangladeshi sheath was exchanged for a 6 Bangladeshi sheath that was advanced into the left [...] arteries. Sheath and catheters were removed and ENGINEERING AIDE arteriotomy was closed using Angioseal. There is patent hemostasis. No bleeding or hematoma noted. Sterile dressing applied. 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 Primary Interpreting Staff: MALCOM LANGLEY MD, INTERVENTIONAL RADIOLOGIST (Web Content Editor) /MALCOM HE [facility] July 17, 2022 07:30 AM RENAL ARTERY EMBOLIZATION (P): MARYJO WAGNER [id number] -1950 M Exm Date: JULY 17, 2022@07:30 Req Phys: WESTON SEPULV[facility] Loc: 07-17-2022@15:46 Img Loc: INTERVENTIONAL RADIOLOGY Service: PRIMARY CARE - MED OFFICE (Case 130 COMPLETE) IR TRANSCATH EMBOLIZATION W/ANGIO(ANI Detailed) CPT:28507 Reason for Study: embolization of RCC mets to left humerus (Case 131 COMPLETE) IR ARTERIAL EMBOLIZATION OTHER TH(ANI Detailed) CPT:92211 (Case 132 COMPLETE) IR US GUIDANCE VASCULAR ACCESS (ANI Detailed) CPT:65283 Clinical History: [place] IS NOT under investigation for COVID-19 or [...] pager listed below: User placing orders pager: [phone] LAST CREATININE 1.0 (07/13/22) Report Status: Verified Date Reported: JULY 17, 2022 Date Verified: JULY 17, 2022 Web Content Editor E-Sig:/ES/MALCOM LANGLEY MD Report: RADIOLOGIST: Malcom Langley [...] angiogram and runoff. 12. Closure of right ENGINEERING AIDE with Angio-Seal device. HISTORY: Metastatic renal [...] Sheath removed over guidewire and a 5 brazilian vascular sheath advanced over guidewire into the artery. An H1 catheter was advanced along with the guidewire into the thoracic arch and the left subclavian artery was selected. Catheter and the guidewire were advanced into the left brachial artery. The 5 Bangladeshi sheath was exchanged for a 6 Bangladeshi sheath that was advanced into the left [...] arteries. Sheath and catheters were removed and ENGINEERING AIDE arteriotomy was closed using Angioseal. There is patent hemostasis. No bleeding or hematoma noted. Sterile dressing applied. 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 Primary Interpreting Staff: MALCOM LANGLEY MD, INTERVENTIONAL RADIOLOGIST (Web Content Editor) /MALCOM HE [facility] July 14, 2022 06:44 AM HUMERUS LEFT MINIMUM 2 VIEWS: MARYJO WAGNER [id number] -1950 M Exm Date: JULY 14, 2022@06:44 Req Phys: WESTON SEPULVEDA Loc: 07-14-2022@07:13 Img Loc: MAIN X-RAY Service: PRIMARY CARE - MED OFFICE (Case [id number] COMPLETE) HUMERUS LEFT MINIMUM 2 VIEWS (RAD Detailed) CPT:00398 Reason for Study: post reduction Clinical History: Report Status: Verified Date Reported: JULY 14, 2022 Date Verified: JULY 14, 2022 Web Content Editor E-Sig: Report: HUMERUS LEFT MINIMUM 2 VIEWS HISTORY: post reduction COMPARISON: 07/13/2022 TECHNIQUE: 2 view(s) of the humerus, submitted to the [place] National Teleradiology Program (NTP) for interpretation. FINDINGS: [...] less likely. READING PHYSICIAN: Xavier Merrill MD -[phone] 07/14/2022 5:11 PDT [facility] National Teleradiology Program [phone] (For Medical Practitioner Use Only) Attention Patients / Veterans: If you have questions or concerns about these test results, please contact your ordering provider or primary care team. Primary Interpreting Staff: RADIOLOGY,OUTSIDE SERVICE, Staff Physician / RADIOLOGY,OUTSIDE SERVICE [facility] July 13, 2022 10:07 AM FOREARM LEFT 2 VIEWS: MARYJO WAGNER [id number] -1950 M Exm Date: JULY 13, 2022@10:07 Req Phys: WHITNEY ANDERSON Loc: [facility] EMERGENCY DEPT WALK-IN (Re Img Loc: MAIN X-RAY Service: Unknown (Case [id number] COMPLETE) FOREARM LEFT 2 VIEWS (RAD Detailed) CPT:42411 Proc Modifiers : LEFT Reason for Study: L arm pain Clinical History: [place] IS NOT under investigation for COVID-19 or is COVID-19 negative Atraumatic left upper extremity pain that is located midshaft humerus distally to the mid forearm. Clinical concern for dislocation versus fracture versus bone mets Responsible provider name and phone number to notify for critical findings if other than user placing the order and pager listed below: User placing orders pager: [phone] LAST CREATININE 0.8 (05/10/22) Report Status: Verified Date Reported: JULY 13, 2022 Date Verified: JULY 13, 2022 Web Content Editor E-Sig:/ES/ALBINA COWAN MD, FACR, CCD Report: EXAMINATION: [...] Staff: ALBINA COWAN MD, FACR, STAFF RADIOLOGIST (Web Content Editor) /BSF ALBINA COWAN [facility] July 13, 2022 10:07 AM HUMERUS LEFT MINIMUM 2 VIEWS: MARYJO WAGNER [id number] -1950 M Exm Date: JULY 13, 2022@10:07 Req Phys: WHITNEY ANDERSON Pat Loc: [facility] EMERGENCY DEPT WALK-IN (Re Img Loc: MAIN X-RAY Service: Unknown (Case [id number] COMPLETE) HUMERUS LEFT MINIMUM 2 VIEWS (RAD Detailed) CPT:45456 Proc Modifiers : LEFT Reason for Study: L arm pain Clinical History: [place] IS NOT under investigation for COVID-19 or is COVID-19 negative Atraumatic left upper extremity pain that is located midshaft humerus distally to the mid forearm. Clinical concern for dislocation versus fracture versus bone mets Responsible provider name and phone number to notify for critical findings if other than user placing the order and pager listed below: User placing orders pager: [phone] LAST CREATININE 0.8 (05/10/22) Report Status: Verified Date Reported: JULY 13, 2022 Date Verified: JULY 13, 2022 Web Content Editor E-Sig:/ES/ALBINA COWAN MD, FACR, CCD Report: EXAMINATION: [...] Staff: ALBINA COWAN MD, FACR, STAFF RADIOLOGIST (Web Content Editor) /BSF ALBINA COWAN [facility] July 13, 2022 10:07 AM ELBOW LEFT 3 OR MORE VIEWS: MARYJO WAGNER [id number] -1950 M Exm Date: JULY 13, 2022@10:07 Req Phys: WHITNEY ANDERSON Pat Loc: [facility] EMERGENCY DEPT WALK-IN (Re Img Loc: MAIN X-RAY Service: Unknown (Case [id number] COMPLETE) ELBOW LEFT 3 OR MORE VIEWS (RAD Detailed) CPT:75503 Proc Modifiers : LEFT Reason for Study: [...] pager listed below: User placing orders pager: [phone] LAST CREATININE 0.8 (05/10/22) Report Status: Verified Date Reported: JULY 13, 2022 Date Verified: JULY 13, 2022 Web Content Editor E-Sig:/ES/ALBINA COWAN MD, FACR, CCD Report: EXAMINATION: [...] Staff: ALBINA COWAN MD, FACR, STAFF RADIOLOGIST (Web Content Editor) /BSF ALBINA COWAN [facility] Pathology Reports: +/- 30 days of [...] comes from all [place] treatment facilities. Date/Time Pathology Report Provider Source July 13, 2022 04:06 PM LR SURGICAL PATHOL OGY REPORT: LOCAL TITLE: LR SURGICAL PATHOLOGY REPORT STANDARD TITLE: PATHOLOGY REPORT DATE OF NOTE: JULY 21, 2022@14:37:27 ENTRY DATE: JULY 21, 2022@14:37:27 AUTHOR: JIAN SANDOVAL EXP COSIGNER: URGENCY: STATUS: COMPLETED $APHDR Reporting Lab: [facility] [CLIA# [id number]] [place] [address] - - - - - - - [...] SANDOVAL STAFF PATHOLOGIST, PATHOLOGY & LABORATORY MED [facility] Signed July 21, 2022@14:37 Performing Laboratory: Surgical Pathology Report Performed By: [facility] [CLIA# [id number]] [place] [address] $FTR - - - - - - [...] - - MARYJO WAGNER STANDARD FORM 515 ID:[id number] SEX:M :1950 AGE: 72 LOC:[facility] PATHOLOGY PRO FEE ADM:June DX:PATHOLOGIC FX LF HUMERUS PCP: Leif Balbuena MD /sangita/ JIAN SANDOVAL STAFF PATHOLOGIST, PATHOLOGY & LABORATORY MED [facility] Signed: 07/21/2022 14:37 JIAN SANDOVAL [facility] Encounter Notes: All associated encounter notes This section contains the clinical notes associated to the Encounter. Date/Time Encounter Note(s) Provider Source July 20, 2022 10:00 AM PHYSICAL THERAPY N OTE: LOCAL TITLE: PT-PROGRESS NOTE STANDARD TITLE: PHYSICAL THERAPY NOTE DATE OF NOTE: JULY 20, 2022@10:00 ENTRY DATE: JULY 20, 2022@11:21:53 AUTHOR: JOSY KNIGHT COSIGNER: URGENCY: STATUS: COMPLETED Date of Service: June Treatment: Gait 10', Ther ex 10' NATIONAL RECRUITER visit #: 03/03 Resident Surgeon(s): Andrew Armstrong MD; Weston Sepulveda [...] #1 s/p surgical fixation. He is met sitting up at EOB. He is agreeable to PT session. His biggest concern at this time is performing SIC. * Pt goes by [facility] * Home [...] pnc in place; catheter site benign Location: L medial wrist Intensity: At rest & with activity 08/05. - adjusted sling for comfort OBJECTIVE: THER ACT FUNCTIONAL MOBILITY: Transfers: Sit to Stand/Stand to Sit to NBQC CGA from slightly elevated bed; wide KATY c/ verbal cues to move his COG forward over his KATY Balance: Patient is able to sit EOB indep for >20 min. Patient requires stable 1 UE support & wide KATY to stand. Ambulation: Patient ambulated 150ft c/ NBQC and CGA. Description: intermittent shuffled gait, vc's to proper placement of NBQC. RPE 2-3/10. Provided CGA for safety d/t fear of falling and use of new AD. No evidence for LOB. Gait Speed: 0.5 m/s </= 0.4 m/s (Indicates household walker and longer rehab stay) < 0.6 m/s (Predicts future risk of falls and hospitalization) < 1.0 m/s (benefits from fall prevention) Stairs: Plan to assess next session. Falls Risk: Patient is High risk for falls. Injury Risk: Increased 2/2 Decreased bone health - pathologic fx Anti-coagulation medication Post-operative status TE: Instructed patient in seated LE strengthening exercises for improved ease and safety with functional mobility. - reviewed heel/toe raises x 10 reps - hip flexion x 10 reps - repetitive sit to stand s/ UE support x 5 reps (reminders to weight shift anteriorly and not rely on UE support) Activity recommendations: Patient to on barboza TID c/ 1 handed use of walker & gait belt assist. Patient Education: - Encouraged pt to walk c/ walker & staff assist, 2-3times/day. - Reviewed physiological effects of bedrest & importance of mobility. Pt verbalizes good motivation to move/walk. - Reviewed not getting up without assistance d/t falls risk. - Pt resting comfortably at EOB following session, call light in reach, and all requested needs met. ASSESSMENT: Pt is a 72 yo MALE admitted c/ L UE pain x1 month. He was found to have a pathologic fx of his L distal humerus & is now POD #1 s/p surgical fixation. At baseline, pt is indep with ADLs/IADLs and walks community distances without any AD. Today, pt demonstrated transfers and ambulation c/CGA. He was able to increase his ambulation distance and required decreased physical assistance with use of NBQC. He believes he already has this AD at home, but was informed to alert TH if he required any equipment. He displays impairments in pain, edema, functional strength, balance, & activity tolerance. Pt is appropriate for skilled inpt PT services in order to address impairments and progress toward goals written below. Diagnoses in PMH that should be considered for participation/progress in therapy include: metastatic RCC (untreated), prostate cancer, HTN, SANTHOSH and obesity. Personal factors that may impact PT POC include: PLOF, supportive home environment, & at home. Response to treatment: fully participatory c/ improved confidence while utilizing NBQC for UE support; no adverse events Patient presents to Physical [...] get out of bed for daily activity. NT, sitting at EOB at start of session - sit<>stand, supervision, in order to stand from toilet or dining chair. ONGOING - ambulate 100feet using appropriate AD, supervision, in order to walk around home. ONGOING - navigate 2steps c/ min-CGA , in order to access his home and community buildings. NT, ONGOING PLAN: Will continue to see for skilled Physical Therapy intervention 1x/day, 4-5 days per week per Length Of Stay or goals have been met. Patient Education of Treatment Plan: Patient indicates readiness to learn, verbalizes understanding, agreement and satisfaction with the treatment plan. Denies further questions. /sangita/ JOSY KNIGHT PTA CLOUD SOFTWARE ENGINEER Signed: 07/20/2022 16:22 JOSY KNIGHT [facility]
--- OUTSIDE RECORDS SUMMARY | 2023-03-24 08:47 | XMS_ITS | Encounter Summary ---
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 [facility] Organization Department of [facility] Address [address] [place] [address] Support Name Relationship Address Phone DOREEN WAGNER Next of Kin [address] [place] [phone] DOREEN Emergency Contact [address] [place] [phone] Insurance Providers: All historical and current [...] Name Patient's Relationship to Policy Casey HUMANA [facility] (WNR) MEDICARE [facility] ([facility]) June 26, 2016 [id number] [phone] BERNARDJOAN KARSTEN PATIENT HUMANA MCR (WNR) MEDICARE ADVANTAGE [facility] (R) June 26, 2016 [id number] JOAN WAGNER KARSTEN PATIENT HUMANA MCR (WNR) MEDICARE ADVANTAGE [facility] (R) June 26, 2016 [id number] JOAN WAGNER KARSTEN PATIENT Selected Encounter This section includes the information on record at [place] for the Encounter. Date/Time Encounter Type Encounter Description Reason Pro vider Source July 19, 2022 01:00 AM Inpatient Visit ADMIN Crescentrating (iogyn) SYSTEM,CIS-ARK IHE Encounter Template Text not used [...] from all [facility]. Appointment Date/Time Appointment Type Appointme nt Facility Name Jul 28, 2022 10:45 AM [facility] Aug 13, 2022 06:13 PM [facility] Aug 23, 2022 09:30 AM AMBULATORY - SURGERY [facility] Aug 23, 2022 09:45 AM [facility] Aug 23, 2022 10:30 AM AMBULATORY - MEDICINE [facility] Aug 23, 2022 10:31 AM AMBULATORY - MEDICINE [facility] Sep 06, 2022 10:15 AM AMBULATORY - SURGERY [facility] Oct 25, 2022 07:00 AM [facility] Oct 25, 2022 07:30 AM AMBULATORY - SURGERY [facility] Oct 25, 2022 09:00 AM AMBULATORY - SURGERY [facility] Active, Pending, and Scheduled Orders This [...] from all [facility]. Test Date/Time Test Type Test Details Facility Name Jun 12, 2022 12:00 AM Laboratory - Chemistry Order CBC & DIFF BLOOD ONCO SP ONCE [facility] Jun 12, 2022 12:00 AM Laboratory - Chemistry Order COMPREHENSIVE METABOLIC PANEL+MG PLASMA ONCO SP ONCE [facility] Jun 12, 2022 12:00 AM Laboratory - Chemistry Order TSH W/REFLEX TO FREE T4 PLASMA ONCO SP ONCE [facility] July 14, 2022 12:00 AM Laboratory - Blood Bank Order ABO/RH - LAB BLOOD [facility] July 14, 2022 02:05 PM Laboratory - Blood Bank Order TYPE & SCREEN - LAB BLOOD [facility] Aug 07, 2022 11:23 AM Laboratory - Chemistry Order DRUG SCREEN PANEL,URINE URINE ONCE [facility] Aug 23, 2022 10:47 AM Laboratory - Chemistry Order URINALYSIS URINE ER STAT WC [facility] Lab Results: +/- [...] Range Comment July 19, 2022 04:40 PM [facility] FINGERSTICK GLUCOSE Specimen Type: BLOOD Comment: Save Result Nurse Notified Ordering Provider: MACKENZIE COTTER Report Released Date/Time: July 19, 2022 05:00 PM Reporting Lab: [facility] [address] Performing Lab: [facility] [address] FINGERSTICK GLUCOSE 132 70-100 July 19, 2022 07:13 AM [facility] COMPREHENSIVE METABOLIC PANEL+MG Specimen Type: PLASMA No comment entered. Ordering Provider: MACKENZIE COTTER Report Released Date/Time: July 18, 2022 05:40 PM Reporting Lab: [facility] [address] Performing Lab: [facility] [address] CREATININE 0.9 0.7-1.2 UREA NITROGEN 24 8-26 [...] See_Commen t July 19, 2022 07:13 AM [facility] IRON GROUP Specimen Type: SERUM No comment entered. Ordering Provider: MACKENZIE COTTER Report Released Date/Time: July 18, 2022 05:40 PM Reporting Lab: [facility] [address] Performing Lab: [facility] [address] IRON 28 L 65-175 TIBC,CALCULATE D 223 L 250-425 FERRITIN 73.7 21.8-274.7 IRON SATURATION 13 L 20-50 TRANSFERRIN 178 163-382 July 19, 2022 07:13 AM [facility] CBC Specimen Type: BLOOD No comment entered. Ordering Provider: MACKENZIE COTTER Report Released Date/Time: July 18, 2022 05:40 PM Reporting Lab: [facility] [address] Performing Lab: [facility] [address] WBC 7.73 4.0-11.0 RBC 2.42 L 4.6-6.2 HGB 8.2 L 13.5-17.9 HCT 23.8 L 41-54 MCV 98.3 80-100 MCH 33.9 H 27-33 MCHC 34.5 32.0-37.5 PLT 155 150-400 MPV 9.6 7.4-10.4 RDW 13.5 11.5-14.5 July 19, 2022 05:44 AM [facility] FINGERSTICK GLUCOSE Specimen Type: BLOOD Comment: Save Result Nurse Notified Ordering Provider: MACKENZIE COTTER Report Released Date/Time: July 19, 2022 11:54 AM Reporting Lab: [facility] [address] Performing Lab: [facility] [address] FINGERSTICK GLUCOSE 137 70-100 July 18, 2022 10:51 PM [facility] FINGERSTICK GLUCOSE Specimen Type: BLOOD Comment: Save Result Nurse Notified Ordering Provider: MACKENZIE COTTER Report Released Date/Time: July 18, 2022 11:06 PM Reporting Lab: [facility] [address] Performing Lab: [facility] [address] FINGERSTICK GLUCOSE 163 70-100 July 17, 2022 06:51 AM [facility] BASIC METABOLIC PANEL+MG Specimen Type: PLASMA No comment entered. Ordering Provider: DANG VALLE Report Released Date/Time: July 16, 2022 09:37 AM Reporting Lab: [facility] [address] Performing Lab: [facility] [address] CREATININE 0.8 0.7-1.2 UREA NITROGEN 23 8-26 GLUCOSE 107 H 70-100 SODIUM 139 136-145 POTASSIUM 3.9 3.5-5.1 CHLORIDE 106 98-107 CO2 28 22-29 CALCIUM 9.1 8.4-10.2 MAGNESIUM 1.9 1.6-2.6 ANION GAP 5 5-15 .CREAT EGFR(CKD-EPI) >90 See_Commen t July 17, 2022 06:51 AM [facility] PROTHROMBIN TIME/INR Specimen Type: PLASMA No comment entered. Ordering Provider: DANG VALLE R Report Released Date/Time: July 16, 2022 09:37 AM Reporting Lab: [facility] [address] Performing Lab: [facility] [address] .INR 1.0 0.8-1.1 .PT 11.5 9.4-12.5 July 17, 2022 06:51 AM [facility] CBC Specimen Type: BLOOD No comment entered. Ordering Provider: DANG VALLE R Report Released Date/Time: July 16, 2022 09:37 AM Reporting Lab: [facility] [address] Performing Lab: [facility] [address] WBC 6.05 4.0-11.0 RBC 3.77 L 4.6-6.2 HGB 12.7 L 13.5-17.9 HCT 36.0 L 41-54 MCV 95.5 80-100 MCH 33.7 H 27-33 MCHC 35.3 32.0-37.5 PLT 179 150-400 MPV 9.4 7.4-10.4 RDW 13.2 11.5-14.5 July 13, 2022 11:22 AM [facility] COVID-19 AND FLU/RSV DIAG PANEL(CEPHEID) Specimen Typ e: NASOPHARYNGEAL Comment: Cepheid GeneXpert (618) Ordering Provider: WHITNEY ANDERSON Report Released Date/Time: July 13, 2022 11:04 AM Reporting Lab: [facility] [address] Performing Lab: [facility] [address] COVID-19 (CEPHEID) Not Detected Not Detected INFLUENZA A (PCR) Not Detected Not Detected INFLUENZA B (PCR) Not Detected Not Detected RSV (PCR) Not Detected Not Detected July 13, 2022 11:00 AM [facility] C-REACTIVE PROTEIN Specimen Type: SERUM Comment: Automated Differential Performed Ordering Provider: WHITNEY ANDERSON Report Released Date/Time: July 13, 2022 11:04 AM Reporting Lab: [facility] [address] Performing Lab: [facility] [address] C-REACTIVE PROTEIN 1.17 <5.00 July 13, 2022 11:00 AM [facility] PROTHROMBIN TIME/INR Specimen Type: PLASMA No comment entered. Ordering Provider: WHITNEY ANDERSON Report Released Date/Time: July 13, 2022 11:04 AM Reporting Lab: [facility] [address] Performing Lab: [facility] [address] .INR 0.9 0.8-1.1 .PT 11.1 9.4-12.5 July 13, 2022 11:00 AM [facility] SED RATE Specimen Type: BLOOD No comment entered. Ordering Provider: WHITNEY ANDERSON Report Released Date/Time: July 13, 2022 11:04 AM Reporting Lab: [facility] [address] Performing Lab: [facility] [address] SED RATE 10 5-15 July 13, 2022 11:00 AM [facility] CBC & DIFF Specimen Type: BLOOD Comment: Automated Differential Performed Ordering Provider: WHITNEY ADNERSON Report Released Date/Time: July 13, 2022 11:04 AM Reporting Lab: [facility] [address] Performing Lab: [facility] [address] WBC 8.82 4.0-11.0 RBC 3.89 L 4.6-6.2 [...] 0.03 0-0.1 July 13, 2022 11:00 AM [facility] COMPREHENSIVE METABOLIC PANEL+MG Specimen Type: PLASMA Comment: Automated Differential Performed Ordering Provider: WHITNEY ANDERSON Report Released Date/Time: July 13, 2022 11:04 AM Reporting Lab: [facility] [address] Performing Lab: [facility] [address] CREATININE 1.0 0.7-1.2 UREA NITROGEN 16 8-26 [...] 137/75 mm[Hg] 18 /min 91 % 0 [facility] July 19, 2022 10:50 PM 7 [facility] July 19, 2022 09:57 PM 8 [facility] July 19, 2022 08:30 PM 7 [facility] July 19, 2022 08:29 PM 7 [facility] Social History: Smoking Status [...] 10, 2022 09:15 AM VA-TOBACCO FORMER USER [facility] Tobacco Use History This section includes a history of the smoking, or tobacco-related health factors, that were collected on or before the date of the Encounter. The data comes from the [place] facility where the Encounter took place. Date/Time Smoking Status/Tobacco Use Comment F acility May 10, 2022 09:15 AM VA-TOBACCO QUIT 15 YRS OR MORE [facility] May 11, 2021 09:15 AM VA-TOBACCO FORMER USER [facility] May 11, 2021 09:15 AM [place]-TOBACCO QUIT 15 YRS OR MORE [facility] Nov 22, 2018 01:36 PM VA-TOBACCO NEVER USED [facility] Nov 12, 2017 07:35 AM FORMER TOBACCO USER 7Y OR GREATE R [facility] Nov 06, 2016 09:05 AM FORMER TOBACCO USER 7Y OR GREATE R [facility] Sep 27, 2015 09:42 AM FORMER TOBACCO USER 7Y OR GREATE R [facility] Sep 25, 2014 07:55 AM FORMER TOBACCO USER 7Y OR GREATE R [facility] Sep 08, 2013 07:48 AM FORMER TOBACCO USER 7Y OR GREATE R [facility] July 09, 2012 09:20 AM FORMER TOBACCO USE >1Y <7Y [facility] Jun 06, 2011 07:53 AM FORMER TOBACCO USE >1Y <7Y [facility] Sep 09, 2009 03:03 PM FORMER TOBACCO USE >1Y <7Y [facility] Aug 11, 2008 01:06 PM FORMER TOBACCO USE <1Y [facility] Sep 19, 2007 02:52 PM CURRENT TOBACCO USER [facility] Sep 03, 2006 03:32 PM CURRENT TOBACCO USER [facility] Advance Directives: All historical and [...] Mar 18, 2003 ADVANCE DIRECTIVE FARHAT MELGAR [facility] Radiology Reports: +/- 30 days [...] 07:50 AM CHEST 1 VIEW: MARYJO WAGNER [id number] -1950 M Exm Date: JULY 20, 2022@07:50 Req Phys: MACKENZIE COTTER Pat Loc: 07-20-2022@08:26 Img Loc: MAIN X-RAY Service: PRIMARY CARE - MED OFFICE (Case [id number] COMPLETE) CHEST 1 VIEW (RAD Detailed) CPT:29829 Proc Modifiers : PORTABLE EXAM Reason for Study: see below. thanks. Clinical History: [facility] IS NOT under investigation for COVID-19 or is COVID-19 negative Please further evaluate for acute airspace disease given o2 requirement. Thanks. Responsible provider name and phone number to notify for critical findings if other than user placing the order and pager listed below: User placing orders pager: [phone] same LAST CREATININE 0.9 (07/19/22) Report Status: Verified Date Reported: JULY 20, 2022 Date Verified: JULY 20, 2022 Foreclosure Specialist E-Sig:/ES/JAMIE MIGUEL MD Report: EXAM: CHEST 1 [...] pager listed below: User placing orders pager: [phone] same LAST CREATININE 0. COMPARISON: Chest CT [...] Primary Interpreting Staff: JAMIE MIGUEL MD, RADIOLOGIST (Foreclosure Specialist) /JAMIE FRANCES [facility] July 18, 2022 12:59 PM ELBOW LEFT 2 VIEWS: MARYJO WAGNER [id number] -1950 M Exm Date: JULY 18, 2022@12:59 Req Phys: LEIF BALBUENA Loc: OR-PACU/07-18-2022@13:59 Img Loc: MAIN X-RAY Service: ZZSURGICAL SERVICE (Case [id number] COMPLETE) ELBOW LEFT 2 VIEWS (RAD Detailed) CPT:52232 Proc Modifiers : PORTABLE EXAM, OPERATING ROOM EXAM Reason for Study: post-op Clinical History: post-op Report Status: Verified Date Reported: JULY 18, 2022 Date Verified: JULY 18, 2022 Foreclosure Specialist E-Sig:/ES/JAKUB LEE MD Report: EXAM: ELBOW LEFT [...] Primary Interpreting Staff: JAKUB LEE MD, RADIOLOGIST (Foreclosure Specialist) /[facility] JAKUB LEE [facility] July 18, 2022 07:30 AM FLUORO UP TO 1 HR PHYSICIAN TIME: MARYJO WAGNER [id number] -1950 M Exm Date: JULY 18, 2022@07:30 Req Phys: LEIF BALBUENA Loc: OR-PACU/07-18-2022@13:14 Img Loc: MAIN X-RAY Service: PRIMARY CARE - MED OFFICE (Case [id number] COMPLETE) FLUORO UP TO 1 HR PHYSICIAN TIME (RAD Detailed) CPT:32429 Proc Modifiers : PORTABLE EXAM, OPERATING ROOM EXAM, LEFT Reason for Study: Left distal humerous ORIF Clinical History: OR 7 Pathologic distal humeral shaft fracture Responsible provider name and phone number to notify for critical findings if other than user placing the order and pager listed below: User placing orders pager: Henry BALBUENA [phone] LAST CREATININE 0.8 (07/17/22) Report Status: Electronically [...] Imaging Department. VERIFIED BY: / *ELECTRONICALLY FILED* [facility] July 17, 2022 03:28 PM ABDOMINAL AORTOGRAM (P): MARYJO WAGNER [id number] -1950 M Exm Date: JULY 17, 2022@15:28 Req Phys: MALCOM LANGLEY [facility] Loc: 07-17-2022@15:54 Img Loc: INTERVENTIONAL RADIOLOGY Service: PRIMARY CARE - MED OFFICE (Case [id number] COMPLETE) ANGIOGRAPHY EXTREMITY UNILAT S&I (ANI Detailed) CPT:94043 Reason for Study: codes (Case 528 COMPLETE) IR AORTOGRAPHY ABDOMINAL W/O RUNO(ANI Detailed) CPT:77181 (Case 529 COMPLETE) IR FOREIGN BODY REMOVAL INTRAVASC(ANI Detailed) CPT:20165 (Case 532 COMPLETE) IR NEEDLE/INTRACATH PLACEMENT EXT(ANI Detailed) CPT:69387 (Case 533 COMPLETE) IR PLACEMENT OCCLUSIVE DEVICE SAM(ANI Detailed) CPT:G0269 Clinical History: codes Report Status: Verified Date Reported: JULY 17, 2022 Date Verified: JULY 17, 2022 Foreclosure Specialist E-Sig:/ES/MALCOM LANGLEY MD Report: RADIOLOGIST: Malcom Langley [...] angiogram and runoff. 12. Closure of right VETERINARY RECEPTIONIST with Angio-Seal device. HISTORY: Metastatic renal cell [...] Sheath removed over guidewire and a 5 costa rican vascular sheath advanced over guidewire into the artery. An H1 catheter was advanced along with the guidewire into the thoracic arch and the left subclavian artery was selected. Catheter and the guidewire were advanced into the left brachial artery. The 5 Norwegian sheath was exchanged for a 6 Norwegian sheath that was advanced into the left [...] arteries. Sheath and catheters were removed and VETERINARY RECEPTIONIST arteriotomy was closed using Angioseal. There is patent hemostasis. No bleeding or hematoma noted. Sterile dressing applied. 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 Primary Interpreting Staff: MALCOM LANGLEY MD, INTERVENTIONAL RADIOLOGIST (Foreclosure Specialist) /MALCOM HE [facility] July 17, 2022 07:30 AM RENAL ARTERY EMBOLIZATION (P): MARYJO WAGNER [id number] -1950 M Exm Date: JULY 17, 2022@07:30 Req Phys: WESTON VASQUEZ Pat Loc: 07-17-2022@15:46 Img Loc: INTERVENTIONAL RADIOLOGY Service: PRIMARY CARE - MED OFFICE (Case [id number] COMPLETE) IR TRANSCATH EMBOLIZATION W/ANGIO(ANI Detailed) CPT:86774 Reason for Study: embolization of RCC mets to left humerus (Case 131 COMPLETE) IR ARTERIAL EMBOLIZATION OTHER TH(ANI Detailed) CPT:19547 (Case 132 COMPLETE) IR US GUIDANCE VASCULAR ACCESS (ANI Detailed) CPT:95176 Clinical History: [facility] IS NOT under investigation for COVID-19 or [...] pager listed below: User placing orders pager: [phone] LAST CREATININE 1.0 (07/13/22) Report Status: Verified Date Reported: JULY 17, 2022 Date Verified: JULY 17, 2022 Foreclosure Specialist E-Sig:/ES/MALCOM LANGLEY MD Report: RADIOLOGIST: Malcom Langley [...] angiogram and runoff. 12. Closure of right VETERINARY RECEPTIONIST with Angio-Seal device. HISTORY: Metastatic renal cell [...] Sheath removed over guidewire and a 5 costa rican vascular sheath advanced over guidewire into the artery. An H1 catheter was advanced along with the guidewire into the thoracic arch and the left subclavian artery was selected. Catheter and the guidewire were advanced into the left brachial artery. The 5 Norwegian sheath was exchanged for a 6 Norwegian sheath that was advanced into the left [...] arteries. Sheath and catheters were removed and VETERINARY RECEPTIONIST arteriotomy was closed using Angioseal. There is patent hemostasis. No bleeding or hematoma noted. Sterile dressing applied. 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 Primary Interpreting Staff: MALCOM LANGLEY MD, INTERVENTIONAL RADIOLOGIST (Foreclosure Specialist) /MALCOM HE [facility] July 14, 2022 06:44 AM HUMERUS LEFT MINIMUM 2 VIEWS: MARYJO WAGNER [id number] -1950 M Exm Date: JULY 14, 2022@06:44 Req Phys: PEDROWESTON [facility] Loc: 07-14-2022@07:13 Img Loc: MAIN X-RAY Service: PRIMARY CARE - MED OFFICE (Case [id number] COMPLETE) HUMERUS LEFT MINIMUM 2 VIEWS (RAD Detailed) CPT:92376 Reason for Study: post reduction Clinical History: Report Status: Verified Date Reported: JULY 14, 2022 Date Verified: JULY 14, 2022 Foreclosure Specialist E-Sig: Report: HUMERUS LEFT MINIMUM 2 VIEWS [...] less likely. READING PHYSICIAN: Xavier Merrill MD -[phone] 07/14/2022 5:11 PDT [facility] National Teleradiology Program [phone] (For Medical Practitioner Use Only) Attention Patients / Veterans: If you have questions or concerns about these test results, please contact your ordering provider or primary care team. Primary Interpreting Staff: RADIOLOGY,OUTSIDE SERVICE, Staff Physician / RADIOLOGY,OUTSIDE SERVICE [facility] July 13, 2022 10:07 AM HUMERUS LEFT MINIMUM 2 VIEWS: MARYJO WAGNER [id number] -1950 M [facility] Date: JULY 13, 2022@10:07 Req Phys: WHITNEY ANDERSON Pat Loc: [facility] EMERGENCY DEPT WALK-IN (Re Img Loc: MAIN X-RAY Service: Unknown (Case [id number] COMPLETE) HUMERUS LEFT MINIMUM 2 VIEWS (RAD Detailed) CPT:30149 Proc Modifiers : LEFT Reason for Study: [...] pager listed below: User placing orders pager: [phone] LAST CREATININE 0.8 (05/10/22) Report Status: Verified Date Reported: JULY 13, 2022 Date Verified: JULY 13, 2022 Foreclosure Specialist E-Sig:/SANGITA/ALBINA COWAN MD, FACR, CCD Report: EXAMINATION: [...] Staff: ALBINA COWAN MD, FACR, STAFF RADIOLOGIST (Foreclosure Specialist) /[facility] ALBINA COWAN [facility] July 13, 2022 10:07 AM ELBOW LEFT 3 OR MORE VIEWS: BERNARDMARYJO CAVAZOS [id number] -1950 M Exm Date: JULY 13, 2022@10:07 Req Phys: WHITNEY ANDERSON Pat Loc: [facility] EMERGENCY DEPT WALK-IN (Re Img Loc: MAIN X-RAY Service: Unknown (Case [id number] COMPLETE) ELBOW LEFT 3 OR MORE VIEWS (RAD Detailed) CPT:73712 Proc Modifiers : LEFT Reason for Study: [...] pager listed below: User placing orders pager: [phone] LAST CREATININE 0.8 (05/10/22) Report Status: Verified Date Reported: JULY 13, 2022 Date Verified: JULY 13, 2022 Foreclosure Specialist E-Sig:/SANGITA/ALBINA COWAN MD, FACR, CCD Report: EXAMINATION: [...] Staff: ALBINA COWAN MD, FACR, STAFF RADIOLOGIST (Foreclosure Specialist) /ALBINA NATHAN [facility] July 13, 2022 10:07 AM FOREARM LEFT 2 VIEWS: MARYJO WAGNER [id number] -1950 M Exm Date: JULY 13, 2022@10:07 Req Phys: MONICAWHITNEY MARIN Pat Loc: [facility] EMERGENCY DEPT WALK-IN (Re Img Loc: MAIN X-RAY Service: Unknown (Case [id number] COMPLETE) FOREARM LEFT 2 VIEWS (RAD Detailed) CPT:05129 Proc Modifiers : LEFT Reason for Study: L arm pain Clinical History: [facility] IS NOT under investigation for COVID-19 or is COVID-19 negative Atraumatic left upper extremity pain that is located midshaft humerus distally to the mid forearm. Clinical concern for dislocation versus fracture versus bone mets Responsible provider name and phone number to notify for critical findings if other than user placing the order and pager listed below: User placing orders pager: [phone] LAST CREATININE 0.8 (05/10/22) Report Status: Verified Date Reported: JULY 13, 2022 Date Verified: JULY 13, 2022 Foreclosure Specialist E-Sig:/ES/ALBINA COWAN MD, FACR, [facility] Report: EXAMINATION: FOREARM LEFT 2 VIEWS [...] Staff: ALBINA COWAN MD, FACR, STAFF RADIOLOGIST (Foreclosure Specialist) /ALBINA NATHAN [facility] Pathology Reports: +/- 30 days [...] COSIGNER: URGENCY: STATUS: COMPLETED $APHDR Reporting Lab: [facility] [CLIA# [id number]] [place] [address] - - - - - - - [...] Performing Laboratory: Surgical Pathology Report Performed By: [facility] [CLIA# [id number]] [place] [address] $FTR - - - - - - [...] - - MARYJO WAGNER STANDARD FORM 515 ID:[id number] SEX:M :1950 AGE: 72 LOC:[facility] PATHOLOGY PRO FEE ADM:June DX:PATHOLOGIC FX LF HUMERUS PCP: Leif Balbuena MD /sangita/ JIAN SANDOVAL STAFF PATHOLOGIST, PATHOLOGY & LABORATORY MED [facility] Signed: 07/21/2022 14:37 JIAN SANDOVAL [facility] Encounter Notes: All associated encounter notes This section contains the clinical notes associated to the Encounter. Date/Time Encounter Note(s) Provider Source July 19, 2022 01:00 AM CRITICAL CARE UNIT NOTE: LOCAL TITLE: ICCA INPATIENT FLOWSHEET STANDARD TITLE: CRITICAL CARE UNIT NOTE DATE OF NOTE: JULY 19, 2022@01:00 ENTRY DATE: JULY 20, 2022@14:43:23 AUTHOR: JAZ,CIS-Suo YiGodfrey EXP COSIGNER: URGENCY: STATUS: COMPLETED This is a place casey only. Please see [email or web address] to view document. /es/ CIS-ARK SYSTEM ICU DOCUMENT IMPORT Signed: 07/20/2022 14:43 SYSTEM,[email or web address] YiK [facility] July 19, 2022 01:00 AM CRITICAL CARE UNIT NOTE: LOCAL TITLE: ICCA RESPIRATORY THERAPY FLOWSHEET STANDARD TITLE: CRITICAL CARE UNIT NOTE DATE OF NOTE: JULY 19, 2022@01:00 ENTRY DATE: JULY 20, 2022@15:14:13 AUTHOR: JAZ,[employer]avingStar EXP COSIGNER: URGENCY: STATUS: COMPLETED This is a place casey only. Please see [email or web address] to view document. /es/ [email or web address] SYSTEM ICU DOCUMENT IMPORT Signed: 07/20/2022 15:14 SYSTEM,[email or web address] [facility]
--- OUTSIDE RECORDS SUMMARY | 2023-03-24 08:48 | XMS_ITS ---
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 of Vetera [facility] Address [address] [place] [address] Support Name Relationship Address Phone DOREEN WAGNER Next of Kin [address] [place] [phone] DOREEN Emergency Contact [address] [place] [phone] Insurance Providers: All historical and current [...] Name Patient's Relationship to Policy [place] [employer] [facility] (WNR) MEDICARE ADVANTAGE [facility] (R) June 26, 2016 [id number] JOAN WAGNER KARSTEN PATIENT [employer] [facility] (WNR) MEDICARE ADVANTAGE [facility] (WNR) June 26, 2016 [id number] JOAN WAGNER KARSTEN PATIENT [employer] [facility] (WNR) MEDICARE ADVANTAGE [facility] (R) June 26, 2016 [id number] JOAN WAGNER PATIENT Selected Encounter This section includes the information on record at CT for the Encounter. Date/Time Encounter Type Encounter Description Reason Pro vider Source July 21, 2022 12:11 PM Inpatient Visit DAILY HOSPITALIZATION DATA IHE [...] 20 appointments. The data comes from all [facility]. Appointment Date/Time Appointment Type Appointme nt Facility Name Jul 28, 2022 10:45 AM AMBULATORY - MEDICINE [facility] Aug 13, 2022 06:13 PM AMBULATORY - MEDICINE [facility] Aug 23, 2022 09:30 AM AMBULATORY - SURGERY [facility] Aug 23, 2022 09:45 AM [facility] Aug 23, 2022 10:30 AM AMBULATORY - MEDICINE [facility] Aug 23, 2022 10:31 AM AMBULATORY - MEDICINE [facility] Sep 06, 2022 10:15 AM AMBULATORY - SURGERY [facility] Oct 25, 2022 07:00 AM [facility] Oct 25, 2022 07:30 AM AMBULATORY - SURGERY [facility] Oct 25, 2022 09:00 AM AMBULATORY - SURGERY [facility] Active, Pending, and Scheduled Orders This section includes a listing of several types of active, pending, and scheduled orders, including clinic medications orders, diagnostic test orders, procedure orders and consult orders; where the start date of the order is 45 days before the date of the Encounter or 45 days after the date of theEncounter. The data comes from all [facility]. Test Date/Time Test Type Test Details Facility Name Jun 12, 2022 12:00 AM Laboratory - Chemistry Order CBC & DIFF BLOOD ONCO SP ONCE [facility] Jun 12, 2022 12:00 AM Laboratory - Chemistry Order COMPREHENSIVE METABOLIC PANEL+MG PLASMA ONCO SP [facility] Jun 12, 2022 12:00 AM Laboratory - Chemistry Order TSH W/REFLEX TO FREE T4 PLASMA ONCO SP ONCE [facility] July 14, 2022 12:00 AM Laboratory - Blood Bank Order ABO/RH - LAB BLOOD [facility] July 14, 2022 02:05 PM Laboratory - Blood Bank Order TYPE & SCREEN - LAB BLOOD [facility] Aug 07, 2022 11:23 AM Laboratory - Chemistry Order DRUG SCREEN PANEL,URINE URINE [facility] Aug 23, 2022 10:47 AM Laboratory - Chemistry Order URINALYSIS URINE ER STAT [facility] [...] July 19, 2022 04:40 PM [facility] FINGERSTICK GLUCOSE Specimen Type: BLOOD Comment: Save Result Nurse Notified Ordering Provider: MACKENZIE COTTER Report Released Date/Time: July 19, 2022 05:00 PM Reporting Lab: [facility] [address] Performing Lab: [facility] [address] FINGERSTICK GLUCOSE 132 70-100 July 19, 2022 07:13 AM [facility] COMPREHENSIVE METABOLIC PANEL+MG Specimen Type: PLASMA No comment entered. Ordering Provider: MACKENZIE COTTER Report Released Date/Time: July 18, 2022 05:40 PM Reporting Lab: [facility] [address] Performing Lab: [facility] [address] CREATININE 0.9 0.7-1.2 UREA NITROGEN 24 8-26 [...] July 19, 2022 07:13 AM [facility] IRON GROUP Specimen Type: SERUM No comment entered. Ordering Provider: MACKENZIE COTTER Report Released Date/Time: July 18, 2022 05:40 PM Reporting Lab: [facility] [address] Performing Lab: [facility] [address] IRON 28 L 65-175 TIBC,CALCULATE D 223 L 250-425 FERRITIN 73.7 21.8-274.7 IRON SATURATION 13 L 20-50 TRANSFERRIN 178 163-382 July 19, 2022 07:13 AM [facility] CBC Specimen Type: BLOOD No comment entered. Ordering Provider: MACKENZIE COTTER Report Released Date/Time: July 18, 2022 05:40 PM Reporting Lab: [facility] [address] Performing Lab: [facility] [address] WBC 7.73 4.0-11.0 RBC 2.42 L 4.6-6.2 HGB 8.2 L 13.5-17.9 HCT 23.8 L 41-54 MCV 98.3 80-100 MCH 33.9 H 27-33 MCHC 34.5 32.0-37.5 PLT 155 150-400 MPV 9.6 7.4-10.4 RDW 13.5 11.5-14.5 July 19, 2022 05:44 AM [facility] FINGERSTICK GLUCOSE Specimen Type: BLOOD Comment: Save Result Nurse Notified Ordering Provider: MACKENZIE COTTER Report Released Date/Time: July 19, 2022 11:54 AM Reporting Lab: [facility] [address] Performing Lab: [facility] [address] FINGERSTICK GLUCOSE 137 70-100 July 18, 2022 10:51 PM [facility] FINGERSTICK GLUCOSE Specimen Type: BLOOD Comment: Save Result Nurse Notified Ordering Provider: MACKENZIE COTTER Report Released Date/Time: July 18, 2022 11:06 PM Reporting Lab: [facility] [address] Performing Lab: [facility] [address] FINGERSTICK GLUCOSE 163 70-100 July 17, 2022 06:51 AM [facility] BASIC METABOLIC PANEL+MG Specimen Type: PLASMA No comment entered. Ordering Provider: DANG VALLE Report Released Date/Time: July 16, 2022 09:37 AM Reporting Lab: [facility] [address] Performing Lab: [facility] [address] CREATININE 0.8 0.7-1.2 UREA NITROGEN 23 8-26 GLUCOSE 107 H 70-100 SODIUM 139 136-145 POTASSIUM 3.9 3.5-5.1 CHLORIDE 106 98-107 CO2 28 22-29 CALCIUM 9.1 8.4-10.2 MAGNESIUM 1.9 1.6-2.6 ANION GAP 5 5-15 .CREAT EGFR(CKD-EPI) >90 See_Commen t July 17, 2022 06:51 AM [facility] PROTHROMBIN TIME/INR Specimen Type: PLASMA No comment entered. Ordering Provider: DANG VALLE R Report Released Date/Time: July 16, 2022 09:37 AM Reporting Lab: [facility] [address] Performing Lab: [facility] [address] .INR 1.0 0.8-1.1 .PT 11.5 9.4-12.5 July 17, 2022 06:51 AM [facility] CBC Specimen Type: BLOOD No comment entered. Ordering Provider: DANG VALLE R Report Released Date/Time: July 16, 2022 09:37 AM Reporting Lab: [facility] [address] Performing Lab: [facility] [address] WBC 6.05 4.0-11.0 RBC 3.77 L 4.6-6.2 HGB 12.7 L 13.5-17.9 HCT 36.0 L 41-54 MCV 95.5 80-100 MCH 33.7 H 27-33 MCHC 35.3 32.0-37.5 PLT 179 150-400 MPV 9.4 7.4-10.4 RDW 13.2 11.5-14.5 July 13, 2022 11:22 AM [facility] COVID-19 AND FLU/RSV DIAG PANEL(CEPHEID) Specimen Typ e: NASOPHARYNGEAL Comment: Cepheid GeneXpert (618) Ordering Provider: WHITNEY ANDERSNO Report Released Date/Time: July 13, 2022 11:04 AM Reporting Lab: [facility] [address] Performing Lab: [facility] [address] COVID-19 (CEPHEID) Not Detected See_Commen t INFLUENZA A (PCR) Not Detected See_Commen t INFLUENZA B (PCR) Not Detected See_Commen t RSV (PCR) Not Detected See_Com men t July 13, 2022 11:00 AM [facility] C-REACTIVE PROTEIN Specimen Type: SERUM Comment: Automated Differential Performed Ordering Provider: WHITNEY ANDERSON Report Released Date/Time: July 13, 2022 11:04 AM Reporting Lab: [facility] [address] Performing Lab: [facility] [address] C-REACTIVE PROTEIN 1.17 <5.00 July 13, 2022 11:00 AM [facility] PROTHROMBIN TIME/INR Specimen Type: PLASMA No comment entered. Ordering Provider: WHITNEY ANDERSON Report Released Date/Time: July 13, 2022 11:04 AM Reporting Lab: [facility] [address] Performing Lab: [facility] [address] .INR 0.9 0.8-1.1 .PT 11.1 9.4-12.5 July 13, 2022 11:00 AM [facility] SED RATE Specimen Type: BLOOD No comment entered. Ordering Provider: WHITNEY ANDERSON Report Released Date/Time: July 13, 2022 11:04 AM Reporting Lab: [facility] [address] Performing Lab: [facility] [address] SED RATE 10 5-15 July 13, 2022 11:00 AM [facility] CBC & DIFF Specimen Type: BLOOD Comment: Automated Differential Performed Ordering Provider: WHITNEY ANDERSON Report Released Date/Time: July 13, 2022 11:04 AM Reporting Lab: [facility] [address] Performing Lab: [facility] [address] WBC 8.82 4.0-11.0 RBC 3.89 L 4.6-6.2 [...] July 13, 2022 11:00 AM [facility] COMPREHENSIVE METABOLIC PANEL+MG Specimen Type: PLASMA Comment: Automated Differential Performed Ordering Provider: WHITNEY ANDERSON Report Released Date/Time: July 13, 2022 11:04 AM Reporting Lab: [facility] [address] Performing Lab: [facility] [address] CREATININE 1.0 0.7-1.2 UREA NITROGEN 16 8-26 [...] Height Weight Body Mass Index Source July 21, 2022 01:35 PM 66 /min 114/69 mm[Hg] 92 % [facility] July 21, 2022 01:32 PM 68 /min 88 % [facility] July 21, 2022 01:31 PM 68 /min 89 % [facility] July 21, 2022 01:20 PM 68 /min 112/57 mm[Hg] 93 % [facility] July 21, 2022 01:19 PM 69 /min 89 % [facility] Social History: Smoking Status (Most [...] 09:15 AM VA-TOBACCO FORMER USER [facility] Tobacco Use History This section includes a history of the smoking, or tobacco-related health factors, that were collected on or before the date of the Encounter. The data comes from the CT facility where the Encounter took place. Date/Time Smoking Status/Tobacco Use Comment F acility May 10, 2022 09:15 AM VA-TOBACCO QUIT 15 YRS OR MORE [facility] May 11, 2021 09:15 AM VA-TOBACCO FORMER USER [facility] May 11, 2021 09:15 AM VA-TOBACCO QUIT 15 YRS OR MORE [facility] Nov 22, 2018 01:36 PM VA-TOBACCO NEVER USED [facility] Nov 12, 2017 07:35 AM FORMER TOBACCO USER 7Y OR GREATE R [facility] Nov 06, 2016 09:05 AM FORMER TOBACCO USER 7Y OR GREATE R [facility] Sep 27, 2015 09:42 AM FORMER TOBACCO USER 7Y OR GREATE R [facility] Sep 25, 2014 07:55 AM FORMER TOBACCO USER 7Y OR GREATE R [facility] Sep 08, 2013 07:48 AM FORMER TOBACCO USER 7Y OR GREATE R [facility] July 09, 2012 09:20 AM FORMER TOBACCO USE >1Y <7Y [facility] Jun 06, 2011 07:53 AM FORMER TOBACCO USE >1Y <7Y [facility] Sep 09, 2009 03:03 PM FORMER TOBACCO USE >1Y <7Y [facility] Aug 11, 2008 01:06 PM FORMER TOBACCO USE <1Y [facility] Sep 19, 2007 02:52 PM CURRENT TOBACCO USER [facility] Sep 03, 2006 03:32 PM CURRENT TOBACCO USER [facility] Advance Directives: All historical and current Section Date Range: From patient's date of to the date document was created. This section includes ALL of a patient's completed or amended CT Advance and Rescinded Directives. The entries below indicate that a directive exists for the patient, but an actual copy is not included with this document. The data comes from all [facility]. Date Advance Directives Provider Source Mar 18, 2003 ADVANCE DIRECTIVE FARHAT MELGARVERITO [facility] Radiology Reports: +/- 30 days of the [...] 07:50 AM CHEST 1 VIEW: MARYJO WAGNER [id number] -1950 M Exm Date: JULY 20, 2022@07:50 Req Phys: MACKENZIE COTTER Pat Loc: 07-20-2022@08:26 Img Loc: MAIN X-RAY Service: PRIMARY CARE - MED OFFICE (Case [id number] COMPLETE) CHEST 1 VIEW (RAD Detailed) CPT:31752 Proc Modifiers : PORTABLE EXAM Reason for Study: see below. thanks. Clinical History: IS NOT under investigation for COVID-19 or is COVID-19 negative Please further evaluate for acute airspace disease given o2 requirement. Thanks. Responsible provider name and phone number to notify for critical findings if other than user placing the order and pager listed below: User placing orders pager: [phone] same LAST CREATININE 0.9 (07/19/22) Report Status: Verified Date Reported: JULY 20, 2022 Date Verified: JULY 20, 2022 Technical Clerk E-Sig:/ES/JAMIE MIGUEL MD Report: EXAM: CHEST 1 VIEW HISTORY: see below. thanks. Reason for Study: see below. thanks. [place] IS NOT under investigation for COVID-19 or is COVID-19 negative Please further evaluate for acute airspace disease given o2 requirement. Thanks. Responsible provider name and phone number to notify for critical findings if other than user placing the order and pager listed below: User placing orders pager: [phone] same LAST CREATININE 0. COMPARISON: Chest CT [...] Primary Interpreting Staff: JAMIE MIGUEL MD, RADIOLOGIST (Technical Clerk) /JAMIE FRANCES [facility] July 18, 2022 12:59 PM ELBOW LEFT 2 VIEWS: MARYJO WAGNER [id number] -1950 M Exm Date: JULY 18, 2022@12:59 Req Phys: LEIF BALBUENA Loc: OR-PACU/07-18-2022@13:59 Img Loc: MAIN X-RAY Service: ZZSURGICAL SERVICE (Case [id number] COMPLETE) ELBOW LEFT 2 VIEWS (RAD Detailed) CPT:65661 Proc Modifiers : PORTABLE EXAM, OPERATING ROOM EXAM Reason for Study: post-op Clinical History: post-op Report Status: Verified Date Reported: JULY 18, 2022 Date Verified: JULY 18, 2022 Technical Clerk E-Sig:/ES/JAKUB LEE MD Report: EXAM: ELBOW LEFT [...] Primary Interpreting Staff: JAKUB LEE MD, RADIOLOGIST (Technical Clerk) /JAKUB LUCERO [facility] July 18, 2022 07:30 AM FLUORO UP TO 1 HR PHYSICIAN TIME: MARYJO WAGNER [id number] -1950 M Exm Date: JULY 18, 2022@07:30 Req Phys: LEIF BALBUENA Loc: OR-PACU/07-18-2022@13:14 Img Loc: MAIN X-RAY Service: PRIMARY CARE - MED OFFICE (Case [id number] COMPLETE) FLUORO UP TO 1 HR PHYSICIAN TIME (RAD Detailed) CPT:17883 Proc Modifiers : PORTABLE EXAM, OPERATING ROOM EXAM, LEFT Reason for Study: Left distal humerous ORIF Clinical History: OR 7 Pathologic distal humeral shaft fracture Responsible provider name and phone number to notify for critical findings if other than user placing the order and pager listed below: User placing orders pager: Henry BALBUENA [phone] LAST CREATININE 0.8 (07/17/22) Report Status: Electronically Filed Date Reported: JULY 18, 2022 Report: Impression: Please see the full report for this procedure in [facility] patient progress notes. Fluoro guidance was provided during this procedure, but the study was not reviewed or verified by a [facility] radiologist. The radiation exposure dose has been recorded in the patient's chart. If you are unable to view this data, please contact the Imaging Department. VERIFIED BY: / *ELECTRONICALLY FILED* [facility] July 17, 2022 03:28 PM ABDOMINAL AORTOGRAM (P): MARYJO WAGNER [id number] -1950 M Exm Date: JULY 17, 2022@15:28 Req Phys: MALCOM LANGLEY [facility] Loc: 07-17-2022@15:54 Img Loc: INTERVENTIONAL RADIOLOGY Service: PRIMARY CARE - MED OFFICE (Case [id number] COMPLETE) ANGIOGRAPHY EXTREMITY UNILAT S&I (ANI Detailed) CPT:31641 Reason for Study: codes (Case 528 COMPLETE) IR AORTOGRAPHY ABDOMINAL W/O RUNO(ANI Detailed) CPT:21366 (Case 529 COMPLETE) IR FOREIGN BODY REMOVAL INTRAVASC(ANI Detailed) CPT:95290 (Case 532 COMPLETE) IR NEEDLE/INTRACATH PLACEMENT EXT(ANI Detailed) CPT:12190 (Case 533 COMPLETE) IR PLACEMENT OCCLUSIVE DEVICE SAM(ANI Detailed) CPT:G0269 Clinical History: codes Report Status: Verified Date Reported: JULY 17, 2022 Date Verified: JULY 17, 2022 Technical Clerk E-Sig:/ES/MALCOM LANGLEY MD Report: RADIOLOGIST: Malcom Langley [...] angiogram and runoff. 12. Closure of right RELIABILITY ENGINEER with Angio-Seal device. HISTORY: Metastatic renal [...] removed over guidewire and a 5 south sudanese vascular sheath advanced over guidewire into the artery. An H1 catheter was advanced along with the guidewire into the thoracic arch and the left subclavian artery was selected. Catheter and the guidewire were advanced into the left brachial artery. The 5 Scottish sheath was exchanged for a 6 Scottish sheath that was advanced into the left [...] arteries. Sheath and catheters were removed and RELIABILITY ENGINEER arteriotomy was closed using Angioseal. There is patent hemostasis. No bleeding or hematoma noted. Sterile dressing applied. 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 Primary Interpreting Staff: MALCOM LANGLEY MD, INTERVENTIONAL RADIOLOGIST (Technical Clerk) /MALCOM HE [facility] July 17, 2022 07:30 AM RENAL ARTERY EMBOLIZATION (P): MARYJO WAGNER [id number] -1950 M Exm Date: JULY 17, 2022@07:30 Req Phys: WESTON VASQUEZ Pat Loc: 07-17-2022@15:46 Img Loc: INTERVENTIONAL RADIOLOGY Service: PRIMARY CARE - MED OFFICE (Case 130 COMPLETE) IR TRANSCATH EMBOLIZATION W/ANGIO(ANI Detailed) CPT:82612 Reason for Study: embolization of RCC mets to left humerus (Case 131 COMPLETE) IR ARTERIAL EMBOLIZATION OTHER TH(ANI Detailed) CPT:96221 (Case 132 COMPLETE) IR US GUIDANCE VASCULAR ACCESS (ANI Detailed) CPT:63644 Clinical History: IS NOT under investigation for [...] pager listed below: User placing orders pager: [phone] LAST CREATININE 1.0 (07/13/22) Report Status: Verified Date Reported: JULY 17, 2022 Date Verified: JULY 17, 2022 Technical Clerk E-Sig:/ES/MALCOM LANGLEY MD Report: RADIOLOGIST: Malcom Langley [...] angiogram and runoff. 12. Closure of right RELIABILITY ENGINEER with Angio-Seal device. HISTORY: Metastatic renal [...] removed over guidewire and a 5 south sudanese vascular sheath advanced over guidewire into the artery. An H1 catheter was advanced along with the guidewire into the thoracic arch and the left subclavian artery was selected. Catheter and the guidewire were advanced into the left brachial artery. The 5 Scottish sheath was exchanged for a 6 Scottish sheath that was advanced into the left [...] arteries. Sheath and catheters were removed and RELIABILITY ENGINEER arteriotomy was closed using Angioseal. There is patent hemostasis. No bleeding or hematoma noted. Sterile dressing applied. 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 Primary Interpreting Staff: MALCOM LANGLEY MD, INTERVENTIONAL RADIOLOGIST (Technical Clerk) /MALCOM HE [facility] July 14, 2022 06:44 AM HUMERUS LEFT MINIMUM 2 VIEWS: MARYJO WAGNER [id number] -1950 M Exm Date: JULY 14, 2022@06:44 Req Phys: WESTON VASQUEZ [facility] Loc: 07-14-2022@07:13 Img Loc: MAIN X-RAY Service: PRIMARY CARE - MED OFFICE (Case [id number] COMPLETE) HUMERUS LEFT MINIMUM 2 VIEWS (RAD Detailed) CPT:79696 Reason for Study: post reduction Clinical History: Report Status: Verified Date Reported: JULY 14, 2022 Date Verified: JULY 14, 2022 Technical Clerk E-Sig: Report: HUMERUS LEFT MINIMUM 2 VIEWS HISTORY: post reduction COMPARISON: 07/13/2022 TECHNIQUE: 2 view(s) of the humerus, submitted to the [place] National Teleradiology Program (NTP) for interpretation. FINDINGS: [...] less likely. READING PHYSICIAN: Xavier Merrill MD -[id number] 07/14/2022 5:11 PDT [facility] National Teleradiology Program [phone] (For Medical Practitioner Use Only) Attention Patients / Veterans: If you have questions or concerns about these test results, please contact your ordering provider or primary care team. Primary Interpreting Staff: RADIOLOGY,OUTSIDE SERVICE, Staff Physician / RADIOLOGY,OUTSIDE SERVICE [facility] July 13, 2022 10:07 AM HUMERUS LEFT MINIMUM 2 VIEWS: MARYJO WAGNER [id number] -1950 M Ex Date: JULY 13, 2022@10:07 Req Phys: WHITNEY ANDERSON Pat Loc: [facility] EMERGENCY DEPT WALK-IN (Re Img Loc: MAIN X-RAY Service: Unknown (Case [id number] COMPLETE) HUMERUS LEFT MINIMUM 2 VIEWS (RAD Detailed) CPT:95799 Proc Modifiers : LEFT Reason for Study: [...] pager listed below: User placing orders pager: [phone] LAST CREATININE 0.8 (05/10/22) Report Status: Verified Date Reported: JULY 13, 2022 Date Verified: JULY 13, 2022 Technical Clerk E-Sig:/ES/ALBINA COWAN MD, FACR, CCD Report: EXAMINATION: [...] Staff: ALBINA COWAN MD, FACR, STAFF RADIOLOGIST (Technical Clerk) /BSF ALBINA COWAN [facility] July 13, 2022 10:07 AM ELBOW LEFT 3 OR MORE VIEWS: MARYJO WAGNER [id number] -1950 M Exm Date: JULY 13, 2022@10:07 Req Phys: WHITNEY ANDERSON Pat Loc: [facility] EMERGENCY DEPT WALK-IN ( Img Loc: MAIN X-RAY Service: Unknown (Case [id number] COMPLETE) ELBOW LEFT 3 OR MORE VIEWS (RAD Detailed) CPT:96011 Proc Modifiers : LEFT Reason for Study: L arm pain Clinical History: [place] IS NOT under investigation for COVID-19 or is COVID-19 negative Atraumatic left upper extremity pain that is located midshaft humerus distally to the mid forearm. Clinical concern for dislocation versus fracture versus bone mets Responsible provider name and phone number to notify for critical findings if other than user placing the order and pager listed below: User placing orders pager: [phone] LAST CREATININE 0.8 (05/10/22) Report Status: Verified Date Reported: JULY 13, 2022 Date Verified: JULY 13, 2022 Technical Clerk E-Sig:/SANGITA/ALBINA COWAN MD, FACR, CCD Report: EXAMINATION: [...] Staff: ALBINA COWAN MD, FACR, STAFF RADIOLOGIST (Technical Clerk) /ALBINA NATHAN [facility] July 13, 2022 10:07 AM FOREARM LEFT 2 VIEWS: MARYJO WAGNER [id number] -1950 M Exm Date: JULY 13, 2022@10:07 Req Phys: MONICAWHITNEY MARIN Pat Loc: [facility] EMERGENCY DEPT WALK-IN ( Img Loc: MAIN X-RAY Service: Unknown (Case [id number] COMPLETE) FOREARM LEFT 2 VIEWS (RAD Detailed) CPT:74480 Proc Modifiers : LEFT Reason for Study: L arm pain Clinical History: [place] IS NOT under investigation for COVID-19 or is COVID-19 negative Atraumatic left upper extremity pain that is located midshaft humerus distally to the mid forearm. Clinical concern for dislocation versus fracture versus bone mets Responsible provider name and phone number to notify for critical findings if other than user placing the order and pager listed below: User placing orders pager: [phone] LAST CREATININE 0.8 (05/10/22) Report Status: Verified Date Reported: JULY 13, 2022 Date Verified: JULY 13, 2022 Technical Clerk E-Sig:/ES/ALBINA COWAN MD, FACR, [facility] Report: EXAMINATION: FOREARM LEFT 2 VIEWS [...] Staff: ALBINA COWAN MD, FACR, STAFF RADIOLOGIST (Technical Clerk) /ALBINA NATHAN [facility] Pathology Reports: +/- 30 days of [...] comes from all CT treatment facilities. Date/Time Pathology Report Provider Source July 13, 2022 04:06 PM LR SURGICAL PATHOL OGY REPORT: LOCAL TITLE: LR SURGICAL PATHOLOGY REPORT STANDARD TITLE: PATHOLOGY REPORT DATE OF NOTE: JULY 21, 2022@14:37:27 ENTRY DATE: JULY 21, 2022@14:37:27 AUTHOR: JIAN SANDOVAL EXP COSIGNER: URGENCY: STATUS: COMPLETED $APHDR Reporting Lab: [facility] [CLIA# [id number]] [place] [address] - - - - - - - [...] Surgical Pathology Report Performed By: [facility] [CLIA# [id number]] [place] [address] $FTR - - - - - - - - - - - - - - - - - - - - - - - - - - - - - - - - - - - - - - - - (End of report) JIAN SANDOVAL MD [facility] Date July 21, 2022 - - - - - - - - - - - - - - - - - - - - - - - - - - - - - - - - - - - - - - - - MARYJO WAGNER STANDARD FORM 515 ID:[id number] SEX:M :1950 AGE: 72 LOC:[facility] PATHOLOGY PRO FEE ADM:June DX:PATHOLOGIC FX LF HUMERUS PCP: Leif Balbuena MD /sangita/ JIAN SANDOVAL STAFF PATHOLOGIST, PATHOLOGY & LABORATORY MED [facility] Signed: 07/21/2022 14:37 JIAN SANDOVAL [facility]
--- OUTSIDE RECORDS SUMMARY | 2023-03-24 08:48 | XMS_ITS | Encounter Summary ---
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 Address [address] [place] [id number] Support Name Relationship Address Phone DOREEN WAGNER Next of Kin [address] [place] [phone] DOREEN Emergency Contact [address] [place] [phone] Insurance Providers: All historical and current [...] Name Patient's Relationship to Policy [place] [employer] [facility] (WNR) MEDICARE ADVANTAGE [facility] ([facility]) June 26, 2016 [id number] CARSONJOAN ROWELL PATIENT [employer] MCR (WNR) MEDICARE ADVANTAGE [facility] ([facility]) June 26, 2016 [id number] JOAN WAGNER KARSTEN PATIENT [employer] MCR (WNR) MEDICARE ADVANTAGE [facility] ([facility]) June 26, 2016 [id number] [phone] JOAN WAGNER PATIENT Selected Encounter This section includes the information on record at [place] for the Encounter. Date/Time Encounter Type Encounter Description Reason Provider Source July 21, 2022 10:00 AM GAIT TRAINING THERAPY PHYSICAL THERAPY ICD-10-CM R26.89 Other abnormalities of gait and mobility LADI KNIGHT Encounter Template Text not used by [place] Assessments - Encounter Diagnoses This section includes the primary and secondary diagnoses documented for the Encounter. Date/Time Primary/Secondary Diagnosis Diagnosis Name Provider Source July 21, 2022 04:19 PM PRIMARY Other abnormalities of gait and mobility [facility] Plan of Treatment: Future Appointments (+ 6 months) and Future Tests (+/- 45 days) The Plan of Treatment section includes future care activities for the patient [facility] [place] [facility] This section includes future appointments and [...] 2022 10:45 AM AMBULATORY - MEDICINE [facility] Aug 13, 2022 06:13 PM AMBULATORY - MEDICINE [facility] Aug 23, 2022 09:30 AM AMBULATORY - SURGERY [facility] Aug 23, 2022 09:45 AM AMBULATORY - NONE [facility] Aug 23, 2022 10:30 AM AMBULATORY - MEDICINE [facility] Aug 23, 2022 10:31 AM [facility] Sep 06, 2022 10:15 AM AMBULATORY - SURGERY [facility] Oct 25, 2022 07:00 AM [facility] Oct 25, 2022 07:30 AM AMBULATORY - SURGERY [facility] Oct 25, 2022 09:00 AM AMBULATORY - SURGERY [facility] Active, Pending, and [...] CBC & DIFF BLOOD ONCO SP ONCE [facility] Jun 12, 2022 12:00 AM Laboratory - Chemistry Order COMPREHENSIVE METABOLIC PANEL+MG PLASMA ONCO SP ONCE [facility] Jun 12, 2022 12:00 AM Laboratory - Chemistry Order TSH W/REFLEX TO FREE T4 PLASMA ONCO SP ONCE [facility] July 14, 2022 12:00 AM Laboratory - Blood Bank Order ABO/RH - LAB BLOOD WC [facility] July 14, 2022 02:05 PM Laboratory - Blood Bank Order TYPE & SCREEN - LAB BLOOD [facility] Aug 07, 2022 11:23 AM Laboratory - Chemistry Order DRUG SCREEN PANEL,URINE URINE ONCE [facility] Aug 23, 2022 10:47 AM Laboratory - Chemistry Order URINALYSIS URINE ER STAT [facility] [...] Range Comment July 19, 2022 04:40 PM [facility] FINGERSTICK GLUCOSE Specimen Type: BLOOD Comment: Save Result Nurse Notified Ordering Provider: MACKENZIE COTTER Report Released Date/Time: July 19, 2022 05:00 PM Reporting Lab: [facility] [id number] Performing Lab: [facility] [address] FINGERSTICK GLUCOSE 132 70-100 July 19, 2022 07:13 AM [facility] COMPREHENSIVE METABOLIC PANEL+MG Specimen Type: PLASMA No comment entered. Ordering Provider: MACKENZIE COTTER Report Released Date/Time: July 18, 2022 05:40 PM Reporting Lab: [facility] [address] Performing Lab: [facility] [address] CREATININE 0.9 0.7-1.2 UREA NITROGEN 24 8-26 [...] See_Commen t July 19, 2022 07:13 AM [facility] IRON GROUP Specimen Type: SERUM No comment entered. Ordering Provider: MACKENZIE COTTER Report Released Date/Time: July 18, 2022 05:40 PM Reporting Lab: [facility] [address] Performing Lab: [facility] [address] IRON 28 L 65-175 TIBC,CALCULATE D 223 L 250-425 FERRITIN 73.7 21.8-274.7 IRON SATURATION 13 L 20-50 TRANSFERRIN 178 163-382 July 19, 2022 07:13 AM [facility] CBC Specimen Type: BLOOD No comment entered. Ordering Provider: MACKENZIE COTTER Report Released Date/Time: July 18, 2022 05:40 PM Reporting Lab: [facility] [address] Performing Lab: [facility] [address] WBC 7.73 4.0-11.0 RBC 2.42 L 4.6-6.2 HGB 8.2 L 13.5-17.9 HCT 23.8 L 41-54 MCV 98.3 80-100 MCH 33.9 H 27-33 MCHC 34.5 32.0-37.5 PLT 155 150-400 MPV 9.6 7.4-10.4 RDW 13.5 11.5-14.5 July 19, 2022 05:44 AM [facility] FINGERSTICK GLUCOSE Specimen Type: BLOOD Comment: Save Result Nurse Notified Ordering Provider: AMCKENZIE COTTER Report Released Date/Time: July 19, 2022 11:54 AM Reporting Lab: [facility] [address] Performing Lab: [facility] [address] FINGERSTICK GLUCOSE 137 70-100 July 18, 2022 10:51 PM [facility] FINGERSTICK GLUCOSE Specimen Type: BLOOD Comment: Save Result Nurse Notified Ordering Provider: MACKENZIE COTTER Report Released Date/Time: July 18, 2022 11:06 PM Reporting Lab: [facility] [address] Performing Lab: [facility] [address] FINGERSTICK GLUCOSE 163 70-100 July 17, 2022 06:51 AM [facility] BASIC METABOLIC PANEL+MG Specimen Type: PLASMA No comment entered. Ordering Provider: DANG VALLE R Report Released Date/Time: July 16, 2022 09:37 AM Reporting Lab: [facility] [address] Performing Lab: [facility] [address] CREATININE 0.8 0.7-1.2 UREA NITROGEN 23 8-26 GLUCOSE 107 H 70-100 SODIUM 139 136-145 POTASSIUM 3.9 3.5-5.1 CHLORIDE 106 98-107 CO2 28 22-29 CALCIUM 9.1 8.4-10.2 MAGNESIUM 1.9 1.6-2.6 ANION GAP 5 5-15 .CREAT EGFR(CKD-EPI) >90 See_Commen t July 17, 2022 06:51 AM [facility] PROTHROMBIN TIME/INR Specimen Type: PLASMA No comment entered. Ordering Provider: DANG VALLE R Report Released Date/Time: July 16, 2022 09:37 AM Reporting Lab: [facility] [address] Performing Lab: [facility] [address] .INR 1.0 0.8-1.1 .PT 11.5 9.4-12.5 July 17, 2022 06:51 AM [facility] CBC Specimen Type: BLOOD No comment entered. Ordering Provider: DANG VALLE R Report Released Date/Time: July 16, 2022 09:37 AM Reporting Lab: [facility] [address] Performing Lab: [facility] [address] WBC 6.05 4.0-11.0 RBC 3.77 L 4.6-6.2 HGB 12.7 L 13.5-17.9 HCT 36.0 L 41-54 MCV 95.5 80-100 MCH 33.7 H 27-33 MCHC 35.3 32.0-37.5 PLT 179 150-400 MPV 9.4 7.4-10.4 RDW 13.2 11.5-14.5 July 13, 2022 11:22 AM [facility] COVID-19 AND FLU/RSV DIAG PANEL(CEPHEID) Specimen Typ e: NASOPHARYNGEAL Comment: Cepheid GeneXpert (618) Ordering Provider: WHITNEY ANDERSON Report Released Date/Time: July 13, 2022 11:04 AM Reporting Lab: [facility] [address] Performing Lab: [facility] [address] COVID-19 (CEPHEID) Not Detected Not Detected INFLUENZA A (PCR) Not Detected Not Detected INFLUENZA B (PCR) Not Detected Not Detected RSV (PCR) Not Detected Not Detected July 13, 2022 11:00 AM [facility] C-REACTIVE PROTEIN Specimen Type: SERUM Comment: Automated Differential Performed Ordering Provider: WHITNEY ANDERSON Report Released Date/Time: July 13, 2022 11:04 AM Reporting Lab: [facility] [address] Performing Lab: [facility] [address] C-REACTIVE PROTEIN 1.17 <5.00 July 13, 2022 11:00 AM [facility] PROTHROMBIN TIME/INR Specimen Type: PLASMA No comment entered. Ordering Provider: WHITNEY ANDERSON Report Released Date/Time: July 13, 2022 11:04 AM Reporting Lab: [facility] [address] Performing Lab: [facility] [address] .INR 0.9 0.8-1.1 .PT 11.1 9.4-12.5 July 13, 2022 11:00 AM [facility] SED RATE Specimen Type: BLOOD No comment entered. Ordering Provider: WHITNEY ANDERSON Report Released Date/Time: July 13, 2022 11:04 AM Reporting Lab: [facility] [address] Performing Lab: [facility] [address] SED RATE 10 5-15 July 13, 2022 11:00 AM [facility] COMPREHENSIVE METABOLIC PANEL+MG Specimen Type: PLASMA Comment: Automated Differential Performed Ordering Provider: WHITNEY ANDERSON Report Released Date/Time: July 13, 2022 11:04 AM Reporting Lab: [facility] [address] Performing Lab: [facility] [address] CREATININE 1.0 0.7-1.2 UREA NITROGEN 16 8-26 GLUCOSE 129 H 70-100 SODIUM 139 136-145 POTASSIUM 4.3 3.5-5.1 CHLORIDE 106 98-107 CO2 26 22-29 CALCIUM 9.2 8.4-10.2 PROTEIN,TOTAL 6.8 6.0-8.3 ALBUMIN 3.9 3.5-5.2 BILIRUBIN, TOTAL 1.2 0.2-1.2 MAGNESIUM 2.2 1.6-2.6 ANION GAP 7 5-15 ALKALINE PHOSPHATASE 73 40-150 ALT/SGPT 17 <55 AST/SGOT 18 <34 .CREAT EGFR(CKD-EPI) 79 >60 July 13, 2022 11:00 AM [facility] CBC & DIFF Specimen Type: BLOOD Comment: Automated Differential Performed Ordering Provider: WHITNEY ANDERSON Report Released Date/Time: July 13, 2022 11:04 AM Reporting Lab: [facility] [address] Performing Lab: [facility] [address] WBC 8.82 4.0-11.0 RBC 3.89 L 4.6-6.2 [...] PRO) 0.3 ABS IMMATURE GRAN 0.03 0-0.1 Vital Signs: All taken on the encounter date This section contains inpatient and outpatient Vital Signs collected on the date of the Encounter. Date/Time Temperature Pulse Blood Pressure Respiratory Rate SP02 Pain Height Weight Body Mass Index Source July 21, 2022 01:35 PM 66 /min 114/69 mm[Hg] 92 % [facility] July 21, 2022 01:32 PM 68 /min 88 % [facility] July 21, 2022 01:31 PM 68 /min 89 % [facility] July 21, 2022 01:20 PM 68 /min 112/57 mm[Hg] 93 % [facility] July 21, 2022 01:19 PM 69 /min 89 % [facility] Social History: Smoking Status (Most [...] 10, 2022 09:15 AM VA-TOBACCO FORMER USER [facility] Tobacco Use History This section includes a history of the smoking, or tobacco-related health factors, that were collected on or before the date of the Encounter. The data comes from the [place] facility where the Encounter took place. Date/Time Smoking Status/Tobacco Use Comment F acility May 10, 2022 09:15 AM VA-TOBACCO QUIT 15 YRS OR MORE [facility] May 11, 2021 09:15 AM VA-TOBACCO FORMER USER [facility] May 11, 2021 09:15 AM VA-TOBACCO QUIT 15 YRS OR MORE [facility] Nov 22, 2018 01:36 PM VA-TOBACCO NEVER USED [facility] Nov 12, 2017 07:35 AM FORMER TOBACCO USER 7Y OR GREATE R [facility] Nov 06, 2016 09:05 AM FORMER TOBACCO USER 7Y OR GREATE R [facility] Sep 27, 2015 09:42 AM FORMER TOBACCO USER 7Y OR GREATE R [facility] Sep 25, 2014 07:55 AM FORMER TOBACCO USER 7Y OR GREATE R [facility] Sep 08, 2013 07:48 AM FORMER TOBACCO USER 7Y OR GREATE R [facility] July 09, 2012 09:20 AM FORMER TOBACCO USE >1Y <7Y [facility] Jun 06, 2011 07:53 AM FORMER TOBACCO USE >1Y <7Y [facility] Sep 09, 2009 03:03 PM FORMER TOBACCO USE >1Y <7Y [facility] Aug 11, 2008 01:06 PM FORMER TOBACCO USE <1Y [facility] Sep 19, 2007 02:52 PM CURRENT TOBACCO USER [facility] Sep 03, 2006 03:32 PM CURRENT TOBACCO USER [facility] Advance Directives: All historical and current Section Date Range: From patient's date of to the date document was created. This section includes ALL of a patient's completed or amended [place] Advance and Rescinded Directives. The entries below indicate that a directive exists for the patient, but an actual copy is not included with this document. The data comes from all [place] facilities. Date Advance Directives Provider Source Mar 18, 2003 ADVANCE DIRECTIVE MELGARFARHAT VERITO [facility] Radiology Reports: +/- 30 [...] 07:50 AM CHEST 1 VIEW: MARYJO WAGNER [id number] -1950 M Exm Date: JULY 20, 2022@07:50 Req Phys: MACKENZIE COTTER Pat Loc: 07-20-2022@08:26 Img Loc: MAIN X-RAY Service: PRIMARY CARE - MED OFFICE (Case [id number] COMPLETE) CHEST 1 VIEW (RAD Detailed) CPT:76880 Proc Modifiers : PORTABLE EXAM Reason for Study: see below. thanks. Clinical History: Glade IS NOT under investigation for COVID-19 or is COVID-19 negative Please further evaluate for acute airspace disease given o2 requirement. Thanks. Responsible provider name and phone number to notify for critical findings if other than user placing the order and pager listed below: User placing orders pager: [phone] same LAST CREATININE 0.9 (07/19/22) Report Status: Verified Date Reported: JULY 20, 2022 Date Verified: JULY 20, 2022 Machine Technician E-Sig:/ES/JAMIE MIGUEL MD Report: EXAM: CHEST [...] pager listed below: User placing orders pager: [phone] same LAST CREATININE 0. COMPARISON: Chest CT [...] Primary Interpreting Staff: JAMIE MIGUEL MD, RADIOLOGIST (Machine Technician) /JAMIE FRANCES [facility] July 18, 2022 12:59 PM ELBOW LEFT 2 VIEWS: MARYJO WAGNER [id number] -1950 M Exm Date: JULY 18, 2022@12:59 Req Phys: LEIF BALBUENA Loc: OR-PACU/07-18-2022@13:59 Img Loc: MAIN X-RAY Service: ZZSURGICAL SERVICE (Case [id number] COMPLETE) ELBOW LEFT 2 VIEWS (RAD Detailed) CPT:07572 Proc Modifiers : PORTABLE EXAM, OPERATING ROOM EXAM Reason for Study: post-op Clinical History: post-op Report Status: Verified Date Reported: JULY 18, 2022 Date Verified: JULY 18, 2022 [facility] E-Sig:/ES/JAKUB LEE MD Report: EXAM: ELBOW LEFT [...] Primary Interpreting Staff: JAKUB LEE MD, RADIOLOGIST (Machine Technician) /JAKUB LUCERO [facility] July 18, 2022 07:30 AM FLUORO UP TO 1 HR PHYSICIAN TIME: MARYJO WAGNER [id number] -1950 M Exm Date: JULY 18, 2022@07:30 Req Phys: LEIF BALBUENA Loc: OR-PACU/07-18-2022@13:14 Im Loc: MAIN X-RAY Service: PRIMARY CARE - MED OFFICE (Case [id number] COMPLETE) FLUORO UP TO 1 HR PHYSICIAN TIME (RAD Detailed) CPT:51842 Proc Modifiers : PORTABLE EXAM, OPERATING ROOM EXAM, LEFT Reason for Study: Left distal humerous ORIF Clinical History: OR 7 Pathologic distal humeral shaft fracture Responsible provider name and phone number to notify for critical findings if other than user placing the order and pager listed below: User placing orders pager: Henry BALBUENA [phone] LAST CREATININE 0.8 (07/17/22) Report Status: Electronically Filed Date Reported: JULY 18, 2022 Report: Impression: Please see the full report for this procedure in [facility] patient progress notes. Fluoro guidance was provided during this procedure, but the study was not reviewed or verified by a [facility] radiologist. The radiation exposure dose has been recorded in the patient's chart. If you are unable to view this data, please contact the Imaging Department. VERIFIED BY: / *ELECTRONICALLY FILED* [facility] July 17, 2022 03:28 PM ABDOMINAL AORTOGRAM (P): BERNARDMARYJO CAVAZOS [id number] -1950 M Exm Date: JULY 17, 2022@15:28 Req Phys: MALCOM LANGLEY Loc: 07-17-2022@15:54 Img Loc: INTERVENTIONAL RADIOLOGY Service: PRIMARY CARE - MED OFFICE (Case [id number] COMPLETE) ANGIOGRAPHY EXTREMITY UNILAT S&I (ANI Detailed) CPT:11528 Reason for Study: codes (Case 528 COMPLETE) IR AORTOGRAPHY ABDOMINAL W/O RUNO(ANI Detailed) CPT:96563 (Case 529 COMPLETE) IR FOREIGN BODY REMOVAL INTRAVASC(ANI Detailed) CPT:11947 (Case 532 COMPLETE) IR NEEDLE/INTRACATH PLACEMENT EXT(ANI Detailed) CPT:55803 (Case 533 COMPLETE) IR PLACEMENT OCCLUSIVE DEVICE SAM(ANI Detailed) CPT:G0269 Clinical History: codes Report Status: Verified Date Reported: JULY 17, 2022 Date Verified: JULY 17, 2022 Machine Technician E-Sig:/ES/MALCOM LANGLEY MD Report: RADIOLOGIST: Malcom [...] angiogram and runoff. 12. Closure of right REAL ESTATE FINANCIAL ANALYST with Angio-Seal device. HISTORY: Metastatic renal cell [...] Sheath removed over guidewire and a 5 burmese vascular sheath advanced over guidewire into the artery. An H1 catheter was advanced along with the guidewire into the thoracic arch and the left subclavian artery was selected. Catheter and the guidewire were advanced into the left brachial artery. The 5 Jordanian sheath was exchanged for a 6 Jordanian sheath that was advanced into the left [...] arteries. Sheath and catheters were removed and REAL ESTATE FINANCIAL ANALYST arteriotomy was closed using Angioseal. There is patent hemostasis. No bleeding or hematoma noted. Sterile dressing applied. 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 Primary Interpreting Staff: MALCOM LANGLEY MD, INTERVENTIONAL RADIOLOGIST (Machine Technician) /MALCOM HE [facility] July 17, 2022 07:30 AM RENAL ARTERY EMBOLIZATION (P): MARYJO WAGNER [id number] -1950 M Exm Date: JULY 17, 2022@07:30 Req Phys: WESTON SEPULVEDA [facility] Loc: 07-17-2022@15:46 Img Loc: INTERVENTIONAL RADIOLOGY Service: PRIMARY CARE - MED OFFICE (Case [id number] COMPLETE) IR TRANSCATH EMBOLIZATION W/ANGIO(ANI Detailed) CPT:34800 Reason for Study: embolization of RCC mets to left humerus (Case 131 COMPLETE) IR ARTERIAL EMBOLIZATION OTHER TH(ANI Detailed) CPT:06033 (Case 132 COMPLETE) IR US GUIDANCE VASCULAR ACCESS (ANI Detailed) CPT:05000 Clinical History: IS NOT under investigation for [...] pager listed below: User placing orders pager: [phone] LAST CREATININE 1.0 (07/13/22) Report Status: Verified Date Reported: JULY 17, 2022 Date Verified: JULY 17, 2022 Machine Technician E-Sig:/ES/MALCOM LANGLEY MD Report: RADIOLOGIST: Malcom [...] angiogram and runoff. 12. Closure of right REAL ESTATE FINANCIAL ANALYST with Angio-Seal device. HISTORY: Metastatic renal cell [...] Sheath removed over guidewire and a 5 burmese vascular sheath advanced over guidewire into the artery. An H1 catheter was advanced along with the guidewire into the thoracic arch and the left subclavian artery was selected. Catheter and the guidewire were advanced into the left brachial artery. The 5 Jordanian sheath was exchanged for a 6 Jordanian sheath that was advanced into the left [...] arteries. Sheath and catheters were removed and REAL ESTATE FINANCIAL ANALYST arteriotomy was closed using Angioseal. There is patent hemostasis. No bleeding or hematoma noted. Sterile dressing applied. 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 Primary Interpreting Staff: MALCOM LANGLEY MD, INTERVENTIONAL RADIOLOGIST (Machine Technician) /MALCOM HE [facility] July 14, 2022 06:44 AM HUMERUS LEFT MINIMUM 2 VIEWS: MARYJO WAGNER [id number] -1950 M Exm Date: JULY 14, 2022@06:44 Req Phys: WESTON SEPULVEDA Loc: 07-14-2022@07:13 Img Loc: MAIN X-RAY Service: PRIMARY CARE - MED OFFICE (Case [id number] COMPLETE) HUMERUS LEFT MINIMUM 2 VIEWS (RAD Detailed) CPT:37921 Reason for Study: post reduction Clinical History: Report Status: Verified Date Reported: JULY 14, 2022 Date Verified: JULY 14, 2022 Machine Technician E-Sig: Report: HUMERUS LEFT MINIMUM 2 [...] less likely. READING PHYSICIAN: Xavier Merrill MD -[phone] 07/14/2022 5:11 PDT [facility] National Teleradiology Program [phone] (For Medical Practitioner Use Only) Attention Patients / Veterans: If you have questions or concerns about these test results, please contact your ordering provider or primary care team. Primary Interpreting Staff: RADIOLOGY,OUTSIDE SERVICE, Staff Physician / RADIOLOGY,OUTSIDE SERVICE [facility] July 13, 2022 10:07 AM HUMERUS LEFT MINIMUM 2 VIEWS: MARYJO WAGNER [id number] -1950 M Exm Date: JULY 13, 2022@10:07 Req Phys: WHITNEY ANDERSON Loc: [facility] EM[facility]GENCY DEPT WALK-IN (Re Img Loc: MAIN X-RAY Service: Unknown (Case [id number] COMPLETE) HUMERUS LEFT MINIMUM 2 VIEWS (RAD Detailed) CPT:38997 Proc Modifiers : LEFT Reason for Study: L arm pain Clinical History: Glade IS NOT under investigation for COVID-19 or is COVID-19 negative Atraumatic left upper extremity pain that is located midshaft humerus distally to the mid forearm. Clinical concern for dislocation versus fracture versus bone mets Responsible provider name and phone number to notify for critical findings if other than user placing the order and pager listed below: User placing orders pager: [phone] LAST CREATININE 0.8 (05/10/22) Report Status: Verified Date Reported: JULY 13, 2022 Date Verified: JULY 13, 2022 Machine Technician E-Sig:/ES/ALBINA COWAN MD, FACR, CCD Report: [...] Staff: ALBINA COWAN MD, FACR, STAFF RADIOLOGIST (Machine Technician) /BSF ALBINA COWAN [facility] July 13, 2022 10:07 AM ELBOW LEFT 3 OR MORE VIEWS: MARYJO WAGNER [id number] -1950 M Exm Date: JULY 13, 2022@10:07 Req Phys: WHITNEY ANDERSON Pat Loc: [facility]Y [facility]PT WALK-IN ([facility] Loc: MAIN X-RAY Service: Unknown (Case [id number] COMPLETE) ELBOW LEFT 3 OR MORE VIEWS (RAD Detailed) CPT:72345 Proc Modifiers : LEFT Reason for Study: [...] pager listed below: User placing orders pager: [phone] LAST CREATININE 0.8 (05/10/22) Report Status: Verified Date Reported: JULY 13, 2022 Date Verified: JULY 13, 2022 Machine Technician E-Sig:/ES/ALBINA COWAN MD, FACR, CCD Report: [...] Staff: ALBINA COWAN MD, FACR, STAFF RADIOLOGIST (Machine Technician) /BSF ALBINA COWAN [facility] July 13, 2022 10:07 AM FOREARM LEFT 2 VIEWS: MARYJO WAGNER [id number] -1950 M Exm Date: JULY 13, 2022@10:07 Req Phys: WHITNEY ANDERSON Pat Loc: [facility]Y DEPT WALK-IN ( Img Loc: MAIN X-RAY Service: Unknown (Case [id number] COMPLETE) FOREARM LEFT 2 VIEWS (RAD Detailed) CPT:29975 Proc Modifiers : LEFT Reason for Study: L arm pain Clinical History: [place] IS NOT under investigation for COVID-19 or is COVID-19 negative Atraumatic left upper extremity pain that is located midshaft humerus distally to the mid forearm. Clinical concern for dislocation versus fracture versus bone mets Responsible provider name and phone number to notify for critical findings if other than user placing the order and pager listed below: User placing orders pager: [phone] LAST CREATININE 0.8 (05/10/22) Report Status: Verified Date Reported: JULY 13, 2022 Date Verified: JULY 13, 2022 Machine Technician E-Sig:/ES/ALBINA COWAN MD, FACR, CCD Report: [...] Staff: ALBINA COWAN MD, FACR, STAFF RADIOLOGIST (Machine Technician) /BSF ALBINA COWAN [facility] Pathology Reports: +/- 30 days of [...] COSIGNER: URGENCY: STATUS: COMPLETED $APHDR Reporting Lab: [facility] [CLIA# [id number]] [place] [address] - - - - - - - [...] SANDOVAL STAFF PATHOLOGIST, PATHOLOGY & LABORATORY MED [facility] Signed July 21, 2022@14:37 Performing Laboratory: Surgical Pathology Report Performed By: [facility] [CLIA# [id number]] [place] [address] $FTR - - - - - - [...] - - MARYJO WAGNER STANDARD FORM 515 ID:[id number] SEX:M :1950 AGE: 72 LOC:[facility] PATHOLOGY PRO FEE ADM:June DX:PATHOLOGIC FX LF HUMERUS PCP: Leif Balbuena MD /sangita/ JIAN SANDOVAL STAFF PATHOLOGIST, PATHOLOGY & LABORATORY MED [facility] Signed: 07/21/2022 14:37 JIAN SANDOVAL [facility] Encounter Notes: All associated encounter notes This section contains the clinical notes associated to the Encounter. Date/Time Encounter Note(s) Provider Source July 21, 2022 10:30 AM PHYSICAL THERAPY N OTE: LOCAL TITLE: PT-PROGRESS NOTE STANDARD TITLE: PHYSICAL THERAPY NOTE DATE OF NOTE: JULY 21, 2022@10:30 ENTRY DATE: JULY 21, 2022@13:09:41 AUTHOR: JOSY KNIGHT EXP COSIGNER: URGENCY: STATUS: COMPLETED PT-PROGRESS NOTE Has ADDENDA Date of Service: June Treatment: Gait ' MILITARY PAY CLERK visit #: 04/03 Resident Surgeon(s): Andrew Armstrong MD; Weston Sepulveda [...] #1 s/p surgical fixation. He is met resting in bed with at his bedside. Feeling good today and ready to discharge home today. No needs. He is agreeable to PT session. * Pt goes by [facility] * Home [...] in place; catheter site benign Location: L UE Intensity: minimal, not rated ____ OBJECTIVE: THER ACT FUNCTIONAL MOBILITY: Bed mobility: Supine to sit Mod I with HOB >30 degrees and with use of bed rail for UE support. Verbal cues for PLB during task. Transfers: Sit to Stand/Stand to Sit to NBQC Mod I from slightly elevated bed Ambulation: Patient ambulated >300ft c/ NBQC and supervision. Description: decreased step length and decreased heelstrike R>L. No evidence for LOB. Decreased reliance on NBQC. Pt managing felipe tang IND. Gait Speed: 0.38 m/s </= 0.4 m/s (Indicates household walker and longer rehab stay) < 0.6 m/s (Predicts future risk of falls and hospitalization) < 1.0 m/s (benefits from fall prevention) Stairs: Ascend/descend 4 steps c/ R rail and supervision - good foot clearance on steps, non-reciprocal pattern Falls Risk: Patient is High risk for falls. Injury Risk: Increased 2/2 Decreased bone health - pathologic fx Anti-coagulation medication Post-operative status Activity recommendations: Patient to on barboza TID c/ 1 handed use of walker & gait belt assist. - Pt resting comfortably at EOB following session, call light in reach, and all requested needs met. remains at bedside. Hand off to RN. ____ ASSESSMENT: Pt is a 72 yo MALE admitted c/ L UE pain x1 month. He was found to have a pathologic fx of his L distal humerus & is now POD #1 s/p surgical fixation. At baseline, pt is indep with ADLs/IADLs and walks community distances without any AD. Today, pt demonstrated transfers Mod I and ambulation c/supervision. He was able to increase his ambulation distance again this session and demonstrated improved confidence with decreased reliance on NBQC. He was able to ascend/descend the stairs c/ 1 HR and supervision. Pt was not limited by pain this session. He did not require seated rest breaks. Overall, pt has made good progress towards all established goals and is ready for discharge to home. Diagnoses in [facility] that should be considered for participation/progress in therapy include: metastatic RCC (untreated), prostate cancer, HTN, SANTHOSH and obesity. Personal factors that may impact PT POC include: PLOF, supportive home environment, & at home. Response to treatment: fully participatory c/ improved confidence and decreased c/o pain; no adverse events Patient presents to Physical [...] get out of bed for daily activity. MET - sit<>stand, supervision, in order to stand from toilet or dining chair. ONGOING for height of surface - ambulate 100feet using appropriate AD, supervision, in order to walk around home. MET - navigate 2steps c/ min-CGA , in order to access his home and community buildings. MET ____ PLAN: Will continue to see for skilled Physical Therapy intervention 1x/day, 4-5 days per week per Length Of Stay or goals have been met. Patient Education of Treatment Plan: Patient indicates readiness to learn, verbalizes understanding, agreement and satisfaction with the treatment plan. Denies further questions. /sangita/ JOSY KNIGHT PTA SKIVER MACHINE OPERATOR Signed: 07/21/2022 16:19 07/23/2022 ADDENDUM STATUS: COMPLETED Patient was seen from 07/19/2022 to 07/21/2022 for PT services. Patient has discharged to home, goals not met d/t hospital discharge before completing PT POC. PT recommendations include: no additional PT needs once discharged. See most recent progress note for current level of function. /es/ Jose Gray, PT, DPT, NCS Physical Therapist Signed: 07/23/2022 15:18 JOSY KNIGHT [facility]
--- OUTSIDE RECORDS SUMMARY | 2023-03-24 08:48 | XMS_ITS ---
DAILY HOSPITALIZATION DATA [facility] Encounter Summary Created on: March 24, 2023 MARYJO WAGNER : 1950 Sex: Male 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 Address [address] [place] [address] Support Name Relationship Address Phone DOREEN WAGNER Next of Kin [address] [place] [id number] DOREEN Emergency Contact [address] [place] [phone] Insurance Providers: All historical and current [...] Name Patient's Relationship to Policy [place] [employer] [facility] (WNR) MEDICARE ADVANTAGE [facility] (R) June 26, 2016 [id number] JOAN WAGNER KARSTEN PATIENT [employer]MANA MCR (WNR) MEDICARE ADVANTAGE [facility] (WNR) June 26, 2016 [id number] JOAN WAGNER KARSTEN PATIENT [employer] MCR (WNR) MEDICARE ADVANTAGE [facility] (WNR) June 26, 2016 [id number] JOAN WAGNER PATIENT Selected Encounter This section includes the information on record at [place] for the Encounter. Date/Time Encounter Type Encounter Description Reason Pro vider Source July 20, 2022 09:26 PM Inpatient Visit DAILY HOSPITALIZATION DATA [facility] Encounter Template Text not used by [place] Plan of Treatment: Future Appointments (+ 6 months) and Future Tests (+/- 45 days) The Plan of Treatment section includes future care activities for the patient from all [place] treatmentfacilities. This section includes future appointments and future orders which are active, pending or scheduled. Future Appointments This section includes appointments that were scheduled to occur 6 months from the date of the Encounter, up to a maximum of 20 appointments. The data comes from all [facility]. Appointment Date/Time Appointment Type Appointme nt Facility Name Jul 28, 2022 10:45 AM [facility] Aug 13, 2022 06:13 PM AMBULATORY - MEDICINE [facility] Aug 23, 2022 09:30 AM AMBULATORY - SURGERY [facility] Aug 23, 2022 09:45 AM [facility] Aug 23, 2022 10:30 AM AMBULATORY - MEDICINE [facility] Aug 23, 2022 10:31 AM AMBULATORY - MEDICINE [facility] Sep 06, 2022 10:15 AM AMBULATORY - SURGERY [facility] Oct 25, 2022 07:00 [facility] Oct 25, 2022 07:30 AM AMBULATORY [...] of theEncounter. The data comes from all [facility]. Test Date/Time Test Type Test Details Facility Name Jun 12, 2022 12:00 AM Laboratory - Chemistry Order COMPREHENSIVE METABOLIC PANEL+MG PLASMA ONCO SP ONCE [facility] Jun 12, 2022 12:00 AM Laboratory - Chemistry Order CBC & DIFF BLOOD ONCO SP [facility] Jun 12, 2022 12:00 AM Laboratory - Chemistry Order TSH W/REFLEX TO FREE T4 PLASMA ONCO SP ONCE [facility] July 14, 2022 12:00 AM Laboratory - Blood Bank Order ABO/RH - LAB BLOOD [facility] July 14, 2022 02:05 PM Laboratory - Blood Bank Order TYPE & SCREEN - LAB BLOOD [facility] Aug 07, 2022 11:23 AM Laboratory - Chemistry Order DRUG SCREEN PANEL,URINE URINE [facility] Aug 23, 2022 10:47 AM Laboratory - Chemistry Order URINALYSIS URINE ER STAT [facility] Lab Results: +/- 30 days of the encounter This section includes the Chemistry and Hematology Lab Results on record with [place] for the patient. Radiology Reports and Pathology Reports are provided separately, in subsequent sections. Lab Results This section contains the Chemistry/Hematology Results that were resulted 30 days before or 30 daysafter the date of the Encounter. Date/Time Source Result Type Result - Unit Interpretation Reference Range Comment July 19, 2022 04:40 PM [facility] FINGERSTICK GLUCOSE Specimen Type: BLOOD Comment: Save Result Nurse Notified Ordering Provider: MACKENZIE COTTER Report Released Date/Time: July 19, 2022 05:00 PM Reporting Lab: [facility] [phone] Performing Lab: [facility] [address] FINGERSTICK GLUCOSE 132 70-100 July 19, 2022 07:13 AM [facility] COMPREHENSIVE METABOLIC PANEL+MG Specimen Type: PLASMA No comment entered. Ordering Provider: MACKENZIE COTTER Report Released Date/Time: July 18, 2022 05:40 PM Reporting Lab: [facility] [address] Performing Lab: [facility] [address] CREATININE 0.9 0.7-1.2 UREA NITROGEN 24 8-26 [...] See_Commen t July 19, 2022 07:13 AM [facility] IRON GROUP Specimen Type: SERUM No comment entered. Ordering Provider: MACKENZIE COTTER Report Released Date/Time: July 18, 2022 05:40 PM Reporting Lab: [facility] [address] Performing Lab: [facility] [address] IRON 28 L 65-175 TIBC,CALCULATE D 223 L 250-425 FERRITIN 73.7 21.8-274.7 IRON SATURATION 13 L 20-50 TRANSFERRIN 178 163-382 July 19, 2022 07:13 AM [facility] CBC Specimen Type: BLOOD No comment entered. Ordering Provider: MACKENZIE COTTER Report Released Date/Time: July 18, 2022 05:40 PM Reporting Lab: [facility] [address] Performing Lab: [facility] [address] WBC 7.73 4.0-11.0 RBC 2.42 L 4.6-6.2 HGB 8.2 L 13.5-17.9 HCT 23.8 L 41-54 MCV 98.3 80-100 MCH 33.9 H 27-33 MCHC 34.5 32.0-37.5 PLT 155 150-400 MPV 9.6 7.4-10.4 RDW 13.5 11.5-14.5 July 19, 2022 05:44 AM [facility] FINGERSTICK GLUCOSE Specimen Type: BLOOD Comment: Save Result Nurse Notified Ordering Provider: MACKENZIE COTTER Report Released Date/Time: July 19, 2022 11:54 AM Reporting Lab: [facility] [address] Performing Lab: [facility] [address] FINGERSTICK GLUCOSE 137 70-100 July 18, 2022 10:51 PM [facility] FINGERSTICK GLUCOSE Specimen Type: BLOOD Comment: Save Result Nurse Notified Ordering Provider: MACKENZIE COTTER Report Released Date/Time: July 18, 2022 11:06 PM Reporting Lab: [facility] [address] Performing Lab: [facility] [address] FINGERSTICK GLUCOSE 163 70-100 July 17, 2022 06:51 AM [facility] BASIC METABOLIC PANEL+MG Specimen Type: PLASMA No comment entered. Ordering Provider: DANG VALLE Report Released Date/Time: July 16, 2022 09:37 AM Reporting Lab: [facility] [address] Performing Lab: [facility] [address] CREATININE 0.8 0.7-1.2 UREA NITROGEN 23 8-26 GLUCOSE 107 H 70-100 SODIUM 139 136-145 POTASSIUM 3.9 3.5-5.1 CHLORIDE 106 98-107 CO2 28 22-29 CALCIUM 9.1 8.4-10.2 MAGNESIUM 1.9 1.6-2.6 ANION GAP 5 5-15 .CREAT EGFR(CKD-EPI) >90 See_Commen t July 17, 2022 06:51 AM [facility] PROTHROMBIN TIME/INR Specimen Type: PLASMA No comment entered. Ordering Provider: DANG VALLE R Report Released Date/Time: July 16, 2022 09:37 AM Reporting Lab: [facility] [address] Performing Lab: [facility] [address] .INR 1.0 0.8-1.1 .PT 11.5 9.4-12.5 July 17, 2022 06:51 AM [facility] CBC Specimen Type: BLOOD No comment entered. Ordering Provider: DANG VALLE R Report Released Date/Time: July 16, 2022 09:37 AM Reporting Lab: [facility] [address] Performing Lab: [facility] [address] WBC 6.05 4.0-11.0 RBC 3.77 L 4.6-6.2 HGB 12.7 L 13.5-17.9 HCT 36.0 L 41-54 MCV 95.5 80-100 MCH 33.7 H 27-33 MCHC 35.3 32.0-37.5 PLT 179 150-400 MPV 9.4 7.4-10.4 RDW 13.2 11.5-14.5 July 13, 2022 11:22 AM [facility] COVID-19 AND FLU/RSV DIAG PANEL(CEPHEID) Specimen Typ e: NASOPHARYNGEAL Comment: Cepheid GeneXpert (618) Ordering Provider: WHITNEY ANDERSON Report Released Date/Time: July 13, 2022 11:04 AM Reporting Lab: [facility] [address] Performing Lab: [facility] [address] COVID-19 (CEPHEID) Not Detected Not Detected INFLUENZA A (PCR) Not Detected Not Detected INFLUENZA B (PCR) Not Detected Not Detected RSV (PCR) Not Detected Not Detected July 13, 2022 11:00 AM [facility] C-REACTIVE PROTEIN Specimen Type: SERUM Comment: Automated Differential Performed Ordering Provider: WHITNEY ANDERSON Report Released Date/Time: July 13, 2022 11:04 AM Reporting Lab: [facility] [address] Performing Lab: [facility] [address] C-REACTIVE PROTEIN 1.17 <5.00 July 13, 2022 11:00 AM [facility] PROTHROMBIN TIME/INR Specimen Type: PLASMA No comment entered. Ordering Provider: WHITNEY ANDERSON Report Released Date/Time: July 13, 2022 11:04 AM Reporting Lab: [facility] [address] Performing Lab: [facility] [address] .INR 0.9 0.8-1.1 .PT 11.1 9.4-12.5 July 13, 2022 11:00 AM [facility] SED RATE Specimen Type: BLOOD No comment entered. Ordering Provider: WHITNEY ANDERSON Report Released Date/Time: July 13, 2022 11:04 AM Reporting Lab: [facility] [address] Performing Lab: [facility] [address] SED RATE 10 5-15 July 13, 2022 11:00 AM [facility] CBC & DIFF Specimen Type: BLOOD Comment: Automated Differential Performed Ordering Provider: WHITNEY ANDERSON Report Released Date/Time: July 13, 2022 11:04 AM Reporting Lab: [facility] [address] Performing Lab: [facility] [address] WBC 8.82 4.0-11.0 RBC 3.89 L 4.6-6.2 [...] 0.03 0-0.1 July 13, 2022 11:00 AM [facility] COMPREHENSIVE METABOLIC PANEL+MG Specimen Type: PLASMA Comment: Automated Differential Performed Ordering Provider: WHITNEY ANDERSON Report Released Date/Time: July 13, 2022 11:04 AM Reporting Lab: [facility] [address] Performing Lab: [facility] [address] CREATININE 1.0 0.7-1.2 UREA NITROGEN 16 8-26 [...] 125/74 mm[Hg] 18 /min 95 % 0 [facility] July 20, 2022 07:41 PM 97.8 F 70 /min 117/72 mm[Hg] 18 /min 96 % 1 [facility] July 20, 2022 04:02 PM 97.6 F 64 /min 112/69 mm[Hg] 18 /min 93 % 0 [facility] July 20, 2022 01:00 PM 5 [facility] July 20, 2022 12:02 PM 8 [facility] Social History: Smoking Status (Most current) and Tobacco Use (All prior to encounter date) This section includes the most current, and the historical, smoking and tobacco- related health factors from the [place] facility where the Encounter took place. Current Smoking Status This section includes the most current smoking, or tobacco-related health factor, from the [place] facility where the Encounter took place. Date/Time Current Smoking Status Comment Facil ity May 10, 2022 09:15 AM VA-TOBACCO QUIT 15 YRS OR MORE [facility] Tobacco Use History This section includes a history of the smoking, or tobacco-related health factors, that were collected on or before the date of the Encounter. The data comes from the [place] facility where the Encounter took place. Date/Time Smoking Status/Tobacco Use Comment F acility May 10, 2022 09:15 AM VA-TOBACCO QUIT 15 YRS OR MORE [facility] May 11, 2021 09:15 AM VA-TOBACCO FORMER USER [facility] May 11, 2021 09:15 AM VA-TOBACCO QUIT 15 YRS OR MORE [facility] Nov 22, 2018 01:36 PM VA-TOBACCO NEVER USED [facility] Nov 12, 2017 07:35 AM FORMER TOBACCO USER 7Y OR GREATE R [facility] Nov 06, 2016 09:05 AM FORMER TOBACCO USER 7Y OR GREATE R [facility] Sep 27, 2015 09:42 AM FORMER TOBACCO USER 7Y OR GREATE R [facility] Sep 25, 2014 07:55 AM FORMER TOBACCO USER 7Y OR GREATE R [facility] Sep 08, 2013 07:48 AM FORMER TOBACCO USER 7Y OR GREATE R [facility] July 09, 2012 09:20 AM FORMER TOBACCO USE >1Y <7Y [facility] Jun 06, 2011 07:53 AM FORMER TOBACCO USE >1Y <7Y [facility] Sep 09, 2009 03:03 PM FORMER TOBACCO USE >1Y <7Y [facility] Aug 11, 2008 01:06 PM FORMER TOBACCO USE <1Y [facility] Sep 19, 2007 02:52 PM CURRENT TOBACCO USER [facility] Sep 03, 2006 03:32 PM CURRENT TOBACCO USER [facility] Advance Directives: All historical and current Section Date Range: From patient's date of to the date document was created. This section includes ALL of a patient's completed or amended [place] Advance and Rescinded Directives. The entries below indicate that a directive exists for the patient, but an actual copy is not included with this document. The data comes from all [facility] facilities. Date Advance Directives Provider Source Mar 18, 2003 ADVANCE DIRECTIVE FARHAT MELGAR SAKIN[place]ITCH [facility] Radiology Reports: +/- 30 days of [...] the Encounter. The data comes from all [place] treatment facilities. Date/Time Radiology Report Provider Source July 20, 2022 07:50 AM CHEST 1 VIEW: MARYJO WAGNER [id number] -1950 M Exm Date: JULY 20, 2022@07:50 Req Phys: MACKENZIE COTTER Pat Loc: 07-20-2022@08:26 Img Loc: MAIN X-RAY Service: PRIMARY CARE - MED OFFICE (Case [id number] COMPLETE) CHEST 1 VIEW (RAD Detailed) CPT:86390 Proc Modifiers : PORTABLE EXAM Reason for Study: see below. thanks. Clinical History: IS NOT under investigation for COVID-19 or is COVID-19 negative Please further evaluate for acute airspace disease given o2 requirement. Thanks. Responsible provider name and phone number to notify for critical findings if other than user placing the order and pager listed below: User placing orders pager: [phone] same LAST CREATININE 0.9 (07/19/22) Report Status: Verified Date Reported: JULY 20, 2022 Date Verified: JULY 20, 2022 Lead Sql Developer E-Sig:/ES/JAMIE MIGUEL MD Report: EXAM: CHEST 1 VIEW HISTORY: see below. thanks. Reason for Study: see below. thanks. [place] IS NOT under investigation for COVID-19 or is COVID-19 negative Please further evaluate for acute airspace disease given o2 requirement. Thanks. Responsible provider name and phone number to notify for critical findings if other than user placing the order and pager listed below: User placing orders pager: [phone] same LAST CREATININE 0. COMPARISON: Chest CT [...] Primary Interpreting Staff: JAMIE MIGUEL MD, RADIOLOGIST (Lead Sql Developer) /JAMIE FRANCES [facility] July 18, 2022 12:59 PM ELBOW LEFT 2 VIEWS: MARYJO WAGNER [id number] -1950 M Exm Date: JULY 18, 2022@12:59 Req Phys: LEIF BALBUENA Loc: OR-PACU/07-18-2022@13:59 Img Loc: MAIN X-RAY Service: ZZSURGICAL SERVICE (Case [id number] COMPLETE) ELBOW LEFT 2 VIEWS (RAD Detailed) CPT:06589 Proc Modifiers : PORTABLE EXAM, OPERATING ROOM EXAM Reason for Study: post-op Clinical History: post-op Report Status: Verified Date Reported: JULY 18, 2022 Date Verified: JULY 18, 2022 Lead Sql Developer E-Sig:/ES/JAKUB LEE MD Report: EXAM: ELBOW [...] Primary Interpreting Staff: JAKUB LEE MD, RADIOLOGIST (Lead Sql Developer) /[facility] [place]AKUB LEE [facility] July 18, 2022 07:30 AM FLUORO UP TO 1 HR PHYSICIAN TIME: MARYJO WAGNER [id number] -1950 M Exm Date: JULY 18, 2022@07:30 Req Phys: LEIF BALBUENA Loc: OR-PACU/07-18-2022@13:14 Img Loc: MAIN X-RAY Service: PRIMARY CARE - MED OFFICE (Case [id number] COMPLETE) FLUORO UP TO 1 HR PHYSICIAN TIME (RAD Detailed) CPT:46826 Proc Modifiers : PORTABLE EXAM, OPERATING ROOM EXAM, LEFT Reason for Study: Left distal humerous ORIF Clinical History: OR 7 Pathologic distal humeral shaft fracture Responsible provider name and phone number to notify for critical findings if other than user placing the order and pager listed below: User placing orders pager: Henry BALBUENA [phone] LAST CREATININE 0.8 (07/17/22) Report Status: Electronically Filed Date Reported: JULY 18, 2022 Report: Impression: Please see the full report for this procedure in [facility] patient progress notes. Fluoro guidance was provided during this procedure, but the study was not reviewed or verified by a [facility] radiologist. The radiation exposure dose has been recorded in the patient's chart. If you are unable to view this data, please contact the Imaging Department. VERIFIED BY: / *ELECTRONICALLY FILED* [facility] July 17, 2022 03:28 PM ABDOMINAL AORTOGRAM (P): MARYJO WAGNER [id number] -1950 M Exm Date: JULY 17, 2022@15:28 Req Phys: MALCOM LANGLEY [facility] Loc: 07-17-2022@15:54 Img Loc: INTERVENTIONAL RADIOLOGY Service: PRIMARY CARE - MED OFFICE (Case [id number] COMPLETE) ANGIOGRAPHY EXTREMITY UNILAT S&I (ANI Detailed) CPT:76871 Reason for Study: codes (Case 528 COMPLETE) IR AORTOGRAPHY ABDOMINAL W/O RUNO(ANI Detailed) CPT:99479 (Case 529 COMPLETE) IR FOREIGN BODY REMOVAL INTRAVASC(ANI Detailed) CPT:33796 (Case 532 COMPLETE) IR NEEDLE/INTRACATH PLACEMENT EXT(ANI Detailed) CPT:61156 (Case 533 COMPLETE) IR PLACEMENT OCCLUSIVE DEVICE SAM(ANI Detailed) CPT:G0269 Clinical History: codes Report Status: Verified Date Reported: JULY 17, 2022 Date Verified: JULY 17, 2022 Lead Sql Developer E-Sig:/ES/MALCOM LANGLEY MD Report: RADIOLOGIST: Malcom [...] angiogram and runoff. 12. Closure of right LICENSED APPRAISER with Angio-Seal device. HISTORY: Metastatic renal cell [...] Sheath removed over guidewire and a 5 azeri vascular sheath advanced over guidewire into the artery. An H1 catheter was advanced along with the guidewire into the thoracic arch and the left subclavian artery was selected. Catheter and the guidewire were advanced into the left brachial artery. The 5 Kosovan sheath was exchanged for a 6 Kosovan sheath that was advanced into the left [...] arteries. Sheath and catheters were removed and LICENSED APPRAISER arteriotomy was closed using Angioseal. There is patent hemostasis. No bleeding or hematoma noted. Sterile dressing applied. 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 Primary Interpreting Staff: MALCOM LANGLEY MD, INTERVENTIONAL RADIOLOGIST (Hugo) /[facility] July 17, 2022 07:30 AM RENAL ARTERY EMBOLIZATION (P): MARYJO WAGNER [id number] -1950 M Exm Date: JULY 17, 2022@07:30 Req Phys: WESTON VASQUEZ Pat Loc: 3F/07-17-2022@15:46 Img Loc: INTERVENTIONAL RADIOLOGY Service: PRIMARY CARE - MED OFFICE (Case 130 COMPLETE) IR TRANSCATH EMBOLIZATION W/ANGIO(ANI Detailed) CPT:12818 Reason for Study: embolization of RCC mets to left humerus (Case 131 COMPLETE) IR ARTERIAL EMBOLIZATION OTHER TH(ANI Detailed) CPT:95457 (Case 132 COMPLETE) IR US GUIDANCE VASCULAR ACCESS (ANI Detailed) CPT:56894 Clinical History: [place] IS NOT under investigation for COVID-19 or [...] pager listed below: User placing orders pager: [phone] LAST CREATININE 1.0 (07/13/22) Report Status: Verified Date Reported: JULY 17, 2022 Date Verified: JULY 17, 2022 Lead Sql Developer E-Sig:/ES/MALCOM LANGLEY MD Report: RADIOLOGIST: Malcom [...] angiogram and runoff. 12. Closure of right LICENSED APPRAISER with Angio-Seal device. HISTORY: Metastatic renal cell [...] Sheath removed over guidewire and a 5 azeri vascular sheath advanced over guidewire into the artery. An H1 catheter was advanced along with the guidewire into the thoracic arch and the left subclavian artery was selected. Catheter and the guidewire were advanced into the left brachial artery. The 5 Kosovan sheath was exchanged for a 6 Kosovan sheath that was advanced into the left [...] arteries. Sheath and catheters were removed and LICENSED APPRAISER arteriotomy was closed using Angioseal. There is patent hemostasis. No bleeding or hematoma noted. Sterile dressing applied. 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 Primary Interpreting Staff: MALCOM LANGLEY MD, INTERVENTIONAL RADIOLOGIST (Lead Sql Developer) /[facility] July 14, 2022 06:44 AM HUMERUS LEFT MINIMUM 2 VIEWS: MARYJO WAGNER [id number] -1950 M Exm Date: JULY 14, 2022@06:44 Req Phys: WESTON VASQUEZ [facility] Loc: 07-14-2022@07:13 Img Loc: MAIN X-RAY Service: PRIMARY CARE - MED OFFICE (Case [id number] COMPLETE) HUMERUS LEFT MINIMUM 2 VIEWS (RAD Detailed) CPT:45226 Reason for Study: post reduction Clinical History: Report Status: Verified Date Reported: JULY 14, 2022 Date Verified: JULY 14, 2022 Lead Sql Developer E-Sig: Report: HUMERUS LEFT MINIMUM 2 VIEWS HISTORY: post reduction COMPARISON: 07/13/2022 TECHNIQUE: 2 view(s) of the humerus, submitted to the [place] National Teleradiology Program (NTP) for interpretation. FINDINGS: [...] less likely. READING PHYSICIAN: Xavier Merrill MD -[id number] 07/14/2022 5:11 PDT [facility] National Teleradiology Program [phone] (For Medical Practitioner Use Only) Attention Patients / Veterans: If you have questions or concerns about these test results, please contact your ordering provider or primary care team. Primary Interpreting Staff: RADIOLOGY,OUTSIDE SERVICE, Staff Physician / RADIOLOGY,OUTSIDE SERVICE [facility] July 13, 2022 10:07 AM HUMERUS LEFT MINIMUM 2 VIEWS: MARYJO WAGNER [id number] -1950 M Ex Date: JULY 13, 2022@10:07 Req Phys: WHITNEY ANDERSON Pat Loc: [facility] EM[facility]GENCY [facility]PT WALK-IN (Re Img Loc: MAIN X-RAY Service: Unknown (Case [id number] COMPLETE) HUMERUS LEFT MINIMUM 2 VIEWS (RAD Detailed) CPT:32846 Proc Modifiers : LEFT Reason for Study: L arm pain Clinical History: [place] IS NOT under investigation for COVID-19 or is COVID-19 negative Atraumatic left upper extremity pain that is located midshaft humerus distally to the mid forearm. Clinical concern for dislocation versus fracture versus bone mets Responsible provider name and phone number to notify for critical findings if other than user placing the order and pager listed below: User placing orders pager: [phone] LAST CREATININE 0.8 (05/10/22) Report Status: Verified Date Reported: JULY 13, 2022 Date Verified: JULY 13, 2022 Lead Sql Developer E-Sig:/ES/ALBINA COWAN MD, FACR, CCD Report: [...] Staff: ALBINA COWAN MD, FACR, STAFF RADIOLOGIST (Lead Sql Developer) /[facility] ALBINA COWAN [facility] July 13, 2022 10:07 AM ELBOW LEFT 3 OR MORE VIEWS: MARYJO WAGNER [id number] -1950 M Exm Date: JULY 13, 2022@10:07 Req Phys: WHITNEY ANDERSON Pat Loc: [facility] EM[facility]Y [facility] WALK-IN (Re Img Loc: MAIN X-RAY Service: Unknown (Case [id number] COMPLETE) ELBOW LEFT 3 OR MORE VIEWS (RAD Detailed) CPT:78137 Proc Modifiers : LEFT Reason for Study: L arm pain Clinical History: [place] IS NOT under investigation for COVID-19 or is COVID-19 negative Atraumatic left upper extremity pain that is located midshaft humerus distally to the mid forearm. Clinical concern for dislocation versus fracture versus bone mets Responsible provider name and phone number to notify for critical findings if other than user placing the order and pager listed below: User placing orders pager: [phone] LAST CREATININE 0.8 (05/10/22) Report Status: Verified Date Reported: JULY 13, 2022 Date Verified: JULY 13, 2022 Lead Sql Developer E-Sig:/ES/ALBINA COWAN MD, FACR, CCD Report: [...] Staff: ALBINA COWAN MD, FACR, STAFF RADIOLOGIST (Lead Sql Developer) /ALBINA NATHAN [facility] July 13, 2022 10:07 AM FOREARM LEFT 2 VIEWS: MARYJO WAGNER [id number] -1950 M Exm Date: JULY 13, 2022@10:07 Req Phys: WHITNEY ANDERSON Pat Loc: [facility] EM[facility]GENCY [facility]PT WALK-IN (Re Img Loc: MAIN X-RAY Service: Unknown (Case [id number] COMPLETE) FOREARM LEFT 2 VIEWS (RAD Detailed) CPT:01475 Proc Modifiers : LEFT Reason for Study: [...] pager listed below: User placing orders pager: [phone] LAST CREATININE 0.8 (05/10/22) Report Status: Verified Date Reported: JULY 13, 2022 Date Verified: JULY 13, 2022 Lead Sql Developer E-Sig:/ES/ALBINA COWAN MD, FACR, CCD Report: [...] Staff: ALBINA COWAN MD, FACR, STAFF RADIOLOGIST (Lead Sql Developer) /ALBINA NATHAN [facility] Pathology Reports: +/- 30 days of [...] the Encounter. The data comes from all [place] treatment facilities. Date/Time Pathology Report Provider Source July 13, 2022 04:06 PM LR SURGICAL PATHOL OGY REPORT: LOCAL TITLE: LR SURGICAL PATHOLOGY REPORT STANDARD TITLE: PATHOLOGY REPORT DATE OF NOTE: JULY 21, 2022@14:37:27 ENTRY DATE: JULY 21, 2022@14:37:27 AUTHOR: JIAN SANDOVAL EXP COSIGNER: URGENCY: STATUS: COMPLETED $APHDR Reporting Lab: [facility] [CLIA# [id number]] [place] [address] - - - - - - - [...] SANDOVAL STAFF PATHOLOGIST, PATHOLOGY & LABORATORY [facility] [place] Signed July 21, 2022@14:37 Performing Laboratory: Surgical Pathology Report Performed By: [facility] [CLIA# [id number]] [place] [address] $FTR - - - - - - [...] - - MARYJO WAGNER STANDARD FORM 515 ID:[id number] SEX:M :1950 AGE: 72 LOC:[facility] PATHOLOGY PRO FEE ADM:June DX:PATHOLOGIC FX LF HUMERUS PCP: Leif Balbuena MD /sangita/ JIAN SANDOVAL STAFF PATHOLOGIST, PATHOLOGY & LABORATORY MED C Signed: 07/21/2022 14:37 JIAN SANDOVAL [facility]
--- OUTSIDE RECORDS SUMMARY | 2023-03-24 08:49 | XMS_ITS | Encounter Summary ---
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 Organization [facility] Address [address] [place] [address] Support Name Relationship Address Phone DOREEN WAGNER Next of Kin [address] [place] [phone] DOREEN Emergency Contact [address] [place] [phone] Insurance Providers: All historical and current [...] Name Patient's Relationship to Policy Casey HUMANA [facility] (WNR) MEDICARE ADVANTAGE [facility] ([facility]) June 26, 2016 [id number] CARSONJOAN ROWELL PATIENT [employer]MANA MCR (WNR) MEDICARE ADVANTAGE [facility] ([facility]) June 26, 2016 [id number] JOAN WAGNER KARSTEN PATIENT [employer] MCR (WNR) MEDICARE ADVANTAGE [facility] (WNR) June 26, 2016 [id number] [phone] JOAN WAGNER KARSTEN PATIENT Selected Encounter This section includes the information on record at NH for the Encounter. Date/Time Encounter Type Encounter Description Reason Pro vider Source July 20, 2022 01:00 AM Inpatient Visit ADMIN [employer] ([employer]) SYSTEM,CIS-ARK IHE Encounter Template Text not used [...] 20 appointments. The data comes from all [facility]. Appointment Date/Time Appointment Type Appointme nt Facility Name Jul 28, 2022 10:45 AM [facility] Aug 13, 2022 06:13 PM [facility] Aug 23, 2022 09:30 AM AM[facility]ULATORY - SURGERY [facility] Aug 23, 2022 09:45 AM [facility] Aug 23, 2022 10:30 AM AMBULATORY - MEDICINE [facility] Aug 23, 2022 10:31 AM AMBULATORY - MEDICINE [facility] Sep 06, 2022 10:15 AM AMBULATORY - SURGERY [facility] Oct 25, 2022 07:00 [facility] Oct 25, 2022 07:30 AM [...] of theEncounter. The data comes from all [facility]. Test Date/Time Test Type Test Details Facility Name Jun 12, 2022 12:00 AM Laboratory - Chemistry Order CBC & DIFF BLOOD ONCO SP ONCE [facility] Jun 12, 2022 12:00 AM Laboratory - Chemistry Order COMPREHENSIVE METABOLIC PANEL+MG PLASMA ONCO SP ONCE [facility] Jun 12, 2022 12:00 AM Laboratory - Chemistry Order TSH W/REFLEX TO FREE T4 PLASMA ONCO SP ONCE [facility] July 14, 2022 12:00 AM Laboratory - Blood Bank Order ABO/RH - LAB BLOOD [facility] July 14, 2022 02:05 PM Laboratory - Blood Bank Order TYPE & SCREEN - LAB BLOOD [facility] Aug 07, 2022 11:23 AM Laboratory - Chemistry Order DRUG SCREEN PANEL,URINE URINE ONCE [facility] Aug 23, 2022 10:47 AM Laboratory - Chemistry Order URINALYSIS URINE ER STAT WC [facility] Lab Results: +/- 30 days [...] Range Comment July 19, 2022 04:40 PM [facility] FINGERSTICK GLUCOSE Specimen Type: BLOOD Comment: Save Result Nurse Notified Ordering Provider: MACKENZIE COTTER Report Released Date/Time: July 19, 2022 05:00 PM Reporting Lab: [facility] [address] Performing Lab: [facility] [address] FINGERSTICK GLUCOSE 132 70-100 July 19, 2022 07:13 AM [facility] COMPREHENSIVE METABOLIC PANEL+MG Specimen Type: PLASMA No comment entered. Ordering Provider: MACKENZIE COTTER Report Released Date/Time: July 18, 2022 05:40 PM Reporting Lab: [facility] [address] Performing Lab: [facility] [address] CREATININE 0.9 0.7-1.2 UREA NITROGEN 24 8-26 [...] See_Commen t July 19, 2022 07:13 AM [facility] IRON GROUP Specimen Type: SERUM No comment entered. Ordering Provider: MACKENZIE COTTER Report Released Date/Time: July 18, 2022 05:40 PM Reporting Lab: [facility] [address] Performing Lab: [facility] [address] IRON 28 L 65-175 TIBC,CALCULATE D 223 L 250-425 FERRITIN 73.7 21.8-274.7 IRON SATURATION 13 L 20-50 TRANSFERRIN 178 163-382 July 19, 2022 07:13 AM [facility] CBC Specimen Type: BLOOD No comment entered. Ordering Provider: MACKENZIE COTTER Report Released Date/Time: July 18, 2022 05:40 PM Reporting Lab: [facility] [address] Performing Lab: [facility] [address] WBC 7.73 4.0-11.0 RBC 2.42 L 4.6-6.2 HGB 8.2 L 13.5-17.9 HCT 23.8 L 41-54 MCV 98.3 80-100 MCH 33.9 H 27-33 MCHC 34.5 32.0-37.5 PLT 155 150-400 MPV 9.6 7.4-10.4 RDW 13.5 11.5-14.5 July 19, 2022 05:44 AM [facility] FINGERSTICK GLUCOSE Specimen Type: BLOOD Comment: Save Result Nurse Notified Ordering Provider: MACKENZIE COTTER Report Released Date/Time: July 19, 2022 11:54 AM Reporting Lab: [facility] [address] Performing Lab: [facility] [address] FINGERSTICK GLUCOSE 137 70-100 July 18, 2022 10:51 PM [facility] FINGERSTICK GLUCOSE Specimen Type: BLOOD Comment: Save Result Nurse Notified Ordering Provider: MACKENZIE COTTER Report Released Date/Time: July 18, 2022 11:06 PM Reporting Lab: [facility] [address] Performing Lab: [facility] [address] FINGERSTICK GLUCOSE 163 70-100 July 17, 2022 06:51 AM [facility] BASIC METABOLIC PANEL+MG Specimen Type: PLASMA No comment entered. Ordering Provider: DANG VALLE Report Released Date/Time: July 16, 2022 09:37 AM Reporting Lab: [facility] [address] Performing Lab: [facility] [address] CREATININE 0.8 0.7-1.2 UREA NITROGEN 23 8-26 GLUCOSE 107 H 70-100 SODIUM 139 136-145 POTASSIUM 3.9 3.5-5.1 CHLORIDE 106 98-107 CO2 28 22-29 CALCIUM 9.1 8.4-10.2 MAGNESIUM 1.9 1.6-2.6 ANION GAP 5 5-15 .CREAT EGFR(CKD-EPI) >90 See_Commen t July 17, 2022 06:51 AM [facility] PROTHROMBIN TIME/INR Specimen Type: PLASMA No comment entered. Ordering Provider: DANG VALLE R Report Released Date/Time: July 16, 2022 09:37 AM Reporting Lab: [facility] [address] Performing Lab: [facility] [address] .INR 1.0 0.8-1.1 .PT 11.5 9.4-12.5 July 17, 2022 06:51 AM [facility] CBC Specimen Type: BLOOD No comment entered. Ordering Provider: DANG VALLE R Report Released Date/Time: July 16, 2022 09:37 AM Reporting Lab: [facility] [address] Performing Lab: [facility] [address] WBC 6.05 4.0-11.0 RBC 3.77 L 4.6-6.2 HGB 12.7 L 13.5-17.9 HCT 36.0 L 41-54 MCV 95.5 80-100 MCH 33.7 H 27-33 MCHC 35.3 32.0-37.5 PLT 179 150-400 MPV 9.4 7.4-10.4 RDW 13.2 11.5-14.5 July 13, 2022 11:22 AM [facility] COVID-19 AND FLU/RSV DIAG PANEL(CEPHEID) Specimen Typ e: NASOPHARYNGEAL Comment: Cepheid GeneXpert (618) Ordering Provider: WHITNEY ANDERSON Report Released Date/Time: July 13, 2022 11:04 AM Reporting Lab: [facility] [address] Performing Lab: [facility] [address] COVID-19 (CEPHEID) Not Detected Not Detected INFLUENZA A (PCR) Not Detected Not Detected INFLUENZA B (PCR) Not Detected Not Detected RSV (PCR) Not Detected Not Detected July 13, 2022 11:00 AM [facility] C-REACTIVE PROTEIN Specimen Type: SERUM Comment: Automated Differential Performed Ordering Provider: WHITNEY ANDERSON Report Released Date/Time: July 13, 2022 11:04 AM Reporting Lab: [facility] [address] Performing Lab: [facility] [address] C-REACTIVE PROTEIN 1.17 <5.00 July 13, 2022 11:00 AM [facility] SED RATE Specimen Type: BLOOD No comment entered. Ordering Provider: WHITNEY ANDERSON Report Released Date/Time: July 13, 2022 11:04 AM Reporting Lab: [facility] [address] Performing Lab: [facility] [address] SED RATE 10 5-15 July 13, 2022 11:00 AM [facility] PROTHROMBIN TIME/INR Specimen Type: PLASMA No comment entered. Ordering Provider: WHITNEY ANDERSON Report Released Date/Time: July 13, 2022 11:04 AM Reporting Lab: [facility] [address] Performing Lab: [facility] [address] .INR 0.9 0.8-1.1 .PT 11.1 9.4-12.5 July 13, 2022 11:00 AM [facility] CBC & DIFF Specimen Type: BLOOD Comment: Automated Differential Performed Ordering Provider: WHITNEY ANDERSON Report Released Date/Time: July 13, 2022 11:04 AM Reporting Lab: [facility] [address] Performing Lab: [facility] [address] WBC 8.82 4.0-11.0 RBC 3.89 L 4.6-6.2 [...] 0.03 0-0.1 July 13, 2022 11:00 AM [facility] COMPREHENSIVE METABOLIC PANEL+MG Specimen Type: PLASMA Comment: Automated Differential Performed Ordering Provider: WHITNEY ANDERSON Report Released Date/Time: July 13, 2022 11:04 AM Reporting Lab: [facility] [address] Performing Lab: [facility] [address] CREATININE 1.0 0.7-1.2 UREA NITROGEN 16 8-26 [...] 125/74 mm[Hg] 18 /min 95 % 0 [place] [facility] July 20, 2022 07:41 PM 97.8 F 70 /min 117/72 mm[Hg] 18 /min 96 % [address] [facility] July 20, 2022 04:02 PM 97.6 F 64 /min 112/69 mm[Hg] 18 /min 93 % 0 [place] [facility] July 20, 2022 01:00 PM 5 [place] [facility] July 20, 2022 12:02 PM [address] [facility] Social History: Smoking Status (Most [...] 10, 2022 09:15 AM VA-TOBACCO FORMER USER [facility] Tobacco Use History This section includes a history of the smoking, or tobacco-related health factors, that were collected on or before the date of the Encounter. The data comes from the NH facility where the Encounter took place. Date/Time Smoking Status/Tobacco Use Comment F acility May 10, 2022 09:15 AM NH-TOBACCO QUIT 15 YRS OR MORE [facility] May 11, 2021 09:15 AM VA-TOBACCO FORMER USER [facility] May 11, 2021 09:15 AM NH-TOBACCO QUIT 15 YRS OR MORE [facility] Nov 22, 2018 01:36 PM VA-TOBACCO NEVER USED [facility] Nov 12, 2017 07:35 AM FORMER TOBACCO USER 7Y OR GREATE R [facility] Nov 06, 2016 09:05 AM FORMER TOBACCO USER 7Y OR GREATE R [facility] Sep 27, 2015 09:42 AM FORMER TOBACCO USER 7Y OR GREATE R [facility] Sep 25, 2014 07:55 AM FORMER TOBACCO USER 7Y OR GREATE R [facility] Sep 08, 2013 07:48 AM FORMER TOBACCO USER 7Y OR GREATE R [facility] July 09, 2012 09:20 AM FORMER TOBACCO USE >1Y <7Y [facility] Jun 06, 2011 07:53 AM FORMER TOBACCO USE >1Y <7Y [facility] Sep 09, 2009 03:03 PM FORMER TOBACCO USE >1Y <7Y [facility] Aug 11, 2008 01:06 PM FORMER TOBACCO USE <1Y [facility] Sep 19, 2007 02:52 PM CURRENT TOBACCO USER [facility] Sep 03, 2006 03:32 PM CURRENT TOBACCO USER [facility] Advance Directives: All historical and current Section Date Range: From patient's date of to the date document was created. This section includes ALL of a patient's completed or amended NH Advance and Rescinded Directives. The entries below indicate that a directive exists for the patient, but an actual copy is not included with this document. The data comes from all NH facilities. Date Advance Directives Provider Source Mar [...] 07:50 AM CHEST 1 VIEW: MARYJO WAGNER [id number] -1950 M Exm Date: JULY 20, 2022@07:50 Req Phys: MACKENZIE COTTER Pat Loc: 07-20-2022@08:26 Img Loc: MAIN X-RAY Service: PRIMARY CARE - MED OFFICE (Case [id number] COMPLETE) CHEST 1 VIEW (RAD Detailed) CPT:31651 Proc Modifiers : PORTABLE EXAM Reason for Study: see below. thanks. Clinical History: [place] IS NOT under investigation for COVID-19 or is COVID-19 negative Please further evaluate for acute airspace disease given o2 requirement. Thanks. Responsible provider name and phone number to notify for critical findings if other than user placing the order and pager listed below: User placing orders pager: [phone] same LAST CREATININE 0.9 (07/19/22) Report Status: Verified Date Reported: JULY 20, 2022 Date Verified: JULY 20, 2022 Ornamental Metal Worker E-Sig:/ES/JAMIE MIGUEL MD Report: EXAM: CHEST [...] pager listed below: User placing orders pager: [phone] same LAST CREATININE 0. COMPARISON: Chest CT [...] Primary Interpreting Staff: JAMIE MIGUEL MD, RADIOLOGIST (Ornamental Metal Worker) /JAMIE FRANCES [facility] July 18, 2022 12:59 PM ELBOW LEFT 2 VIEWS: MARYJO WAGNER [id number] -1950 M Exm Date: JULY 18, 2022@12:59 Req Phys: LEIF BALBUENA Loc: OR-PACU/07-18-2022@13:59 Img Loc: MAIN X-RAY Service: ZZSURGICAL SERVICE (Case [id number] COMPLETE) ELBOW LEFT 2 VIEWS (RAD Detailed) CPT:06350 Proc Modifiers : PORTABLE EXAM, OPERATING ROOM EXAM Reason for Study: post-op Clinical History: post-op Report Status: Verified Date Reported: JULY 18, 2022 Date Verified: JULY 18, 2022 Ornamental Metal Worker E-Sig:/ES/JAKUB LEE MD Report: EXAM: ELBOW [...] Primary Interpreting Staff: JAKUB LEE MD, RADIOLOGIST (Ornamental Metal Worker) /[facility] JAKUB LEE [facility] July 18, 2022 07:30 AM FLUORO UP TO 1 HR PHYSICIAN TIME: MARYJO WAGNER [id number] -1950 M Exm Date: JULY 18, 2022@07:30 Req Phys: LEIF BALBUENA Loc: OR-PACU/07-18-2022@13:14 Img Loc: MAIN X-RAY Service: PRIMARY CARE - MED OFFICE (Case [id number] COMPLETE) FLUORO UP TO 1 HR PHYSICIAN TIME (RAD Detailed) CPT:48802 Proc Modifiers : PORTABLE EXAM, OPERATING ROOM EXAM, LEFT Reason for Study: Left distal humerous ORIF Clinical History: OR 7 Pathologic distal humeral shaft fracture Responsible provider name and phone number to notify for critical findings if other than user placing the order and pager listed below: User placing orders pager: Henry BALBUENA [phone] LAST CREATININE 0.8 (07/17/22) Report Status: Electronically [...] Imaging Department. VERIFIED BY: / *ELECTRONICALLY FILED* [facility] July 17, 2022 03:28 PM ABDOMINAL AORTOGRAM (P): MARYJO WAGNER [id number] -1950 M Exm Date: JULY 17, 2022@15:28 Req Phys: MALCOM LANGLEY [facility] Loc: 07-17-2022@15:54 Img Loc: INTERVENTIONAL RADIOLOGY Service: PRIMARY CARE - MED OFFICE (Case [id number] COMPLETE) ANGIOGRAPHY EXTREMITY UNILAT S&I (ANI Detailed) CPT:36788 Reason for Study: codes (Case 528 COMPLETE) IR AORTOGRAPHY ABDOMINAL W/O RUNO(ANI Detailed) CPT:10025 (Case 529 COMPLETE) IR FOREIGN BODY REMOVAL INTRAVASC(ANI Detailed) CPT:17492 (Case 532 COMPLETE) IR NEEDLE/INTRACATH PLACEMENT EXT(ANI Detailed) CPT:76087 (Case 533 COMPLETE) IR PLACEMENT OCCLUSIVE DEVICE SAM(ANI Detailed) CPT:G0269 Clinical History: codes Report Status: Verified Date Reported: JULY 17, 2022 Date Verified: JULY 17, 2022 Ornamental Metal Worker E-Sig:/ES/MALCOM LANGLEY MD Report: RADIOLOGIST: Malcom [...] angiogram and runoff. 12. Closure of right SUPERINTENDENT JOB with Angio-Seal device. HISTORY: Metastatic renal cell [...] Sheath removed over guidewire and a 5 sudanese vascular sheath advanced over guidewire into the artery. An H1 catheter was advanced along with the guidewire into the thoracic arch and the left subclavian artery was selected. Catheter and the guidewire were advanced into the left brachial artery. The 5 Lithuanian sheath was exchanged for a 6 Lithuanian sheath that was advanced into the left [...] arteries. Sheath and catheters were removed and SUPERINTENDENT JOB arteriotomy was closed using Angioseal. There is patent hemostasis. No bleeding or hematoma noted. Sterile dressing applied. 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 Primary Interpreting Staff: MALCOM LANGLEY MD, INTERVENTIONAL RADIOLOGIST (Hugo) /MALCOM HE [facility] July 17, 2022 07:30 AM RENAL ARTERY EMBOLIZATION (P): MARYJO WAGNER [id number] -1950 M Exm Date: JULY 17, 2022@07:30 Req Phys: WESTON VASQUEZ Pat Loc: 07-17-2022@15:46 Img Loc: INTERVENTIONAL RADIOLOGY Service: PRIMARY CARE - MED OFFICE (Case [id number] COMPLETE) IR TRANSCATH EMBOLIZATION W/ANGIO(ANI Detailed) CPT:38077 Reason for Study: embolization of RCC mets to left humerus (Case 131 COMPLETE) IR ARTERIAL EMBOLIZATION OTHER TH(ANI Detailed) CPT:74148 (Case 132 COMPLETE) IR US GUIDANCE VASCULAR ACCESS (ANI Detailed) CPT:92709 Clinical History: [place] IS NOT under investigation for COVID-19 [...] pager listed below: User placing orders pager: [phone] LAST CREATININE 1.0 (07/13/22) Report Status: Verified Date Reported: JULY 17, 2022 Date Verified: JULY 17, 2022 Ornamental Metal Worker E-Sig:/ES/MALCOM LANGLEY MD Report: RADIOLOGIST: Malcom [...] angiogram and runoff. 12. Closure of right SUPERINTENDENT JOB with Angio-Seal device. HISTORY: Metastatic renal cell [...] Sheath removed over guidewire and a 5 sudanese vascular sheath advanced over guidewire into the artery. An H1 catheter was advanced along with the guidewire into the thoracic arch and the left subclavian artery was selected. Catheter and the guidewire were advanced into the left brachial artery. The 5 Lithuanian sheath was exchanged for a 6 Lithuanian sheath that was advanced into the left [...] arteries. Sheath and catheters were removed and SUPERINTENDENT JOB arteriotomy was closed using Angioseal. There is patent hemostasis. No bleeding or hematoma noted. Sterile dressing applied. 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 Primary Interpreting Staff: MALCOM LANGLEY MD, INTERVENTIONAL RADIOLOGIST (Ornamental Metal Worker) /MALCOM HE [facility] July 14, 2022 06:44 AM HUMERUS LEFT MINIMUM 2 VIEWS: MARYJO WAGNER [id number] -1950 M Ex Date: JULY 14, 2022@06:44 Req Phys: WESTON VASQUEZ Pat Loc: 07-14-2022@07:13 Img Loc: MAIN X-RAY Service: PRIMARY CARE - MED OFFICE (Case [id number] COMPLETE) HUMERUS LEFT MINIMUM 2 VIEWS (RAD Detailed) CPT:69620 Reason for Study: post reduction Clinical History: Report Status: Verified Date Reported: JULY 14, 2022 Date Verified: JULY 14, 2022 Ornamental Metal Worker E-Sig: Report: HUMERUS LEFT MINIMUM 2 [...] less likely. READING PHYSICIAN: Xavier Merrill MD -[phone] 07/14/2022 5:11 PDT [facility] National Teleradiology Program [phone] (For Medical Practitioner Use Only) Attention Patients / Veterans: If you have questions or concerns about these test results, please contact your ordering provider or primary care team. Primary Interpreting Staff: RADIOLOGY,OUTSIDE SERVICE, Staff Physician / RADIOLOGY,OUTSIDE SERVICE [facility] July 13, 2022 10:07 AM HUMERUS LEFT MINIMUM 2 VIEWS: MARYJO WAGNER [id number] -1950 M Exm Date: JULY 13, 2022@10:07 Req Phys: WHITNEY ANDERSON Pat Loc: [facility] EMERGENCY DEPT WALK-IN (Re Img Loc: MAIN X-RAY Service: Unknown (Case [id number] COMPLETE) HUMERUS LEFT MINIMUM 2 VIEWS (RAD Detailed) CPT:58030 Proc Modifiers : LEFT Reason for Study: [...] pager listed below: User placing orders pager: [phone] LAST CREATININE 0.8 (05/10/22) Report Status: Verified Date Reported: JULY 13, 2022 Date Verified: JULY 13, 2022 Ornamental Metal Worker E-Sig:/ES/ALBINA COWAN MD, FACR, CCD Report: [...] Staff: ALBINA COWAN MD, FACR, STAFF RADIOLOGIST (Ornamental Metal Worker) /[facility] ALBINA COWAN [facility] July 13, 2022 10:07 AM ELBOW LEFT 3 OR MORE VIEWS: MARYJO WAGNER [id number] -1950 M Exm Date: JULY 13, 2022@10:07 Req Phys: WHITNEY ANDERSON Pat Loc: [facility] EMERGENCY DEPT WALK-IN (Re Img Loc: MAIN X-RAY Service: Unknown (Case [id number] COMPLETE) ELBOW LEFT 3 OR MORE VIEWS (RAD Detailed) CPT:14683 Proc Modifiers : LEFT Reason for Study: [...] pager listed below: User placing orders pager: [phone] LAST CREATININE 0.8 (05/10/22) Report Status: Verified Date Reported: JULY 13, 2022 Date Verified: JULY 13, 2022 Ornamental Metal Worker E-Sig:/ES/ALBINA COWAN MD, FACR, CCD Report: [...] Staff: ALBINA COWAN MD, FACR, STAFF RADIOLOGIST (Ornamental Metal Worker) /ALBINA NATHAN [facility] July 13, 2022 10:07 AM FOREARM LEFT 2 VIEWS: MARYJO WAGNER [id number] -1950 M Exm Date: JULY 13, 2022@10:07 Req Phys: WHITNEY ANDERSON Pat Loc: [facility] EMERGENCY DEPT WALK-IN (Re Img Loc: MAIN X-RAY Service: Unknown (Case [id number] COMPLETE) FOREARM LEFT 2 VIEWS (RAD Detailed) CPT:86939 Proc Modifiers : LEFT Reason for Study: L arm pain Clinical History: [place] IS NOT under investigation for COVID-19 or is COVID-19 negative Atraumatic left upper extremity pain that is located midshaft humerus distally to the mid forearm. Clinical concern for dislocation versus fracture versus bone mets Responsible provider name and phone number to notify for critical findings if other than user placing the order and pager listed below: User placing orders pager: [phone] LAST CREATININE 0.8 (05/10/22) Report Status: Verified Date Reported: JULY 13, 2022 Date Verified: JULY 13, 2022 Ornamental Metal Worker E-Sig:/ES/ALBINA COWAN MD, FACR, CCD Report: [...] Staff: ALBINA COWAN MD, FACR, STAFF RADIOLOGIST (Ornamental Metal Worker) /ALBINA NATHAN [facility] Pathology Reports: +/- 30 days [...] COSIGNER: URGENCY: STATUS: COMPLETED $APHDR Reporting Lab: [facility] [CLIA# [id number]] [place] [address] - - - - - - - [...] Performing Laboratory: Surgical Pathology Report Performed By: [facility] [CLIA# [id number]] [place] [address] $FTR - - - - - - [...] - - MARYJO WAGNER STANDARD FORM 515 ID:[id number] SEX:M :1950 AGE: 72 LOC:MSP PATHOLOGY PRO FEE ADM:June DX:PATHOLOGIC FX LF HUMERUS PCP: Leif Balbuena MD /sangita/ JIAN SANDOVAL STAFF PATHOLOGIST, PATHOLOGY & LABORATORY [facility] [place] Signed: 07/21/2022 14:37 JIAN SANDOVAL [facility] Encounter Notes: All associated encounter notes This section contains the clinical notes associated to the Encounter. Date/Time Encounter Note(s) Provider Source July 20, 2022 01:00 AM CRITICAL CARE UNIT NOTE: LOCAL TITLE: [facility] INPATIENT FLOWSHEET STANDARD TITLE: CRITICAL CARE UNIT NOTE DATE OF NOTE: JULY 20, 2022@01:00 ENTRY DATE: JULY 21, 2022@14:45:08 AUTHOR: SYSTEM,CIS-ARK EXP COSIGNER: URGENCY: STATUS: COMPLETED This is a place casey only. Please see [employer] to view document. /es/ [employer] SYSTEM ICU DOCUMENT IMPORT Signed: 07/21/2022 14:45 SYSTEM,Bubok [facility] July 20, 2022 01:00 AM CRITICAL CARE UNIT NOTE: LOCAL TITLE: [facility] RESPIRATORY THERAPY FLOWSHEET STANDARD TITLE: CRITICAL CARE UNIT NOTE DATE OF NOTE: JULY 20, 2022@01:00 ENTRY DATE: JULY 21, 2022@15:12:38 AUTHOR: JAZBubok EXP COSIGNER: URGENCY: STATUS: COMPLETED This is a place casey only. Please see [employer] to view document. /es/ [employer] SYSTEM ICU DOCUMENT IMPORT Signed: 07/21/2022 15:12 SYSTEM,Bubok [facility]
--- OUTSIDE RECORDS SUMMARY | 2023-03-24 08:49 | XMS_ITS | Encounter Summary ---
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 of Vetera [facility] Address [address] [place] [address] Support Name Relationship Address Phone DOREEN WAGNER Next of Kin [phone] [place] [phone] DOREEN Emergency Contact [phone] [place] [phone] Insurance Providers: All historical and current [...] [facility] (WNR) June 26, 2016 [id number] JOAN WAGNER KARSTEN PATIENT [employer] (WNR) MEDICARE ADVANTAGE [facility] (WNR) June 26, 2016 [id number] JOAN WAGNER KARSTEN PATIENT [employer] (WNR) MEDICARE ADVANTAGE [facility] (WNR) June 26, 2016 [id number] JOAN WAGNER KARSTEN PATIENT Selected Encounter This section includes the information on record at [place] for the Encounter. Date/Time Encounter Type Encounter Description Reason Pro vider Source July 21, 2022 01:52 PM Inpatient Visit EVENT (HISTORICAL) IHE Encounter [...] comes from all [facility]. Appointment Date/Time Appointment Type Appointme nt Facility Name Jul 28, 2022 10:45 AM [facility] Aug 13, 2022 06:13 PM [facility] Aug 23, 2022 09:30 AM [facility] Aug 23, 2022 09:45 AM [facility] - NONE [facility] Aug 23, 2022 10:30 AM [facility] Aug 23, 2022 10:31 AM AMBULATORY - MEDICINE [facility] Sep 06, 2022 10:15 AM [facility] Oct 25, 2022 07:00 AM [facility]ONE [facility] Oct 25, 2022 07:30 AM [facility] Oct 25, 2022 09:00 AM AMBULATORY - SURGERY [facility] Active, Pending, and Scheduled Orders This [...] comes from all [facility]. Test Date/Time Test Type Test Details Facility Name Jun 12, 2022 12:00 AM Laboratory - Chemistry Order COMPREHENSIVE METABOLIC PANEL+MG PLASMA ONCO SP ONCE [facility] Jun 12, 2022 12:00 AM Laboratory - Chemistry Order CBC & DIFF BLOOD ONCO SP ONCE [facility] Jun 12, 2022 12:00 AM Laboratory - Chemistry Order TSH W/REFLEX TO FREE T4 PLASMA ONCO SP ONCE [facility] July 14, 2022 12:00 AM Laboratory - Blood Bank Order ABO/RH - LAB BLOOD [facility] July 14, 2022 02:05 PM Laboratory - Blood Bank Order TYPE & SCREEN - LAB BLOOD [facility] Aug 07, 2022 11:23 AM Laboratory - Chemistry Order DRUG SCREEN PANEL,URINE URINE [facility] Aug 23, 2022 10:47 AM Laboratory - Chemistry Order URINALYSIS URINE ER STAT [facility] Lab Results: +/- 30 days of the [...] Range Comment July 19, 2022 04:40 PM [facility] FINGERSTICK GLUCOSE Specimen Type: BLOOD Comment: Save Result Nurse Notified Ordering Provider: MACKENZIE COTTER Report Released Date/Time: July 19, 2022 05:00 PM Reporting Lab: [facility] [phone] Performing Lab: [facility] [address] FINGERSTICK GLUCOSE 132 70-100 July 19, 2022 07:13 AM [facility] COMPREHENSIVE METABOLIC PANEL+MG Specimen Type: PLASMA No comment entered. Ordering Provider: MACKENZIE COTTER Report Released Date/Time: July 18, 2022 05:40 PM Reporting Lab: [facility] [address] Performing Lab: [facility] [address] CREATININE 0.9 0.7-1.2 UREA NITROGEN 24 8-26 [...] See_Commen t July 19, 2022 07:13 AM [facility] IRON GROUP Specimen Type: SERUM No comment entered. Ordering Provider: MACKENZIE COTTER Report Released Date/Time: July 18, 2022 05:40 PM Reporting Lab: [facility] [address] Performing Lab: [facility] [address] IRON 28 L 65-175 TIBC,CALCULATE D 223 L 250-425 FERRITIN 73.7 21.8-274.7 IRON SATURATION 13 L 20-50 TRANSFERRIN 178 163-382 July 19, 2022 07:13 AM [facility] CBC Specimen Type: BLOOD No comment entered. Ordering Provider: MACKENZIE COTTER Report Released Date/Time: July 18, 2022 05:40 PM Reporting Lab: [facility] [address] Performing Lab: [facility] [address] WBC 7.73 4.0-11.0 RBC 2.42 L 4.6-6.2 HGB 8.2 L 13.5-17.9 HCT 23.8 L 41-54 MCV 98.3 80-100 MCH 33.9 H 27-33 MCHC 34.5 32.0-37.5 PLT 155 150-400 MPV 9.6 7.4-10.4 RDW 13.5 11.5-14.5 July 19, 2022 05:44 AM [facility] FINGERSTICK GLUCOSE Specimen Type: BLOOD Comment: Save Result Nurse Notified Ordering Provider: MACKENZIE COTTER Report Released Date/Time: July 19, 2022 11:54 AM Reporting Lab: [facility] [address] Performing Lab: [facility] [address] FINGERSTICK GLUCOSE 137 70-100 July 18, 2022 10:51 PM [facility] FINGERSTICK GLUCOSE Specimen Type: BLOOD Comment: Save Result Nurse Notified Ordering Provider: MACKENZIE COTTER Report Released Date/Time: July 18, 2022 11:06 PM Reporting Lab: [facility] [address] Performing Lab: [facility] [address] FINGERSTICK GLUCOSE 163 70-100 July 17, 2022 06:51 AM [facility] BASIC METABOLIC PANEL+MG Specimen Type: PLASMA No comment entered. Ordering Provider: DANG VALLE Report Released Date/Time: July 16, 2022 09:37 AM Reporting Lab: [facility] [address] Performing Lab: [facility] [address] CREATININE 0.8 0.7-1.2 UREA NITROGEN 23 8-26 GLUCOSE 107 H 70-100 SODIUM 139 136-145 POTASSIUM 3.9 3.5-5.1 CHLORIDE 106 98-107 CO2 28 22-29 CALCIUM 9.1 8.4-10.2 MAGNESIUM 1.9 1.6-2.6 ANION GAP 5 5-15 .CREAT EGFR(CKD-EPI) >90 See_Commen t July 17, 2022 06:51 AM [facility] PROTHROMBIN TIME/INR Specimen Type: PLASMA No comment entered. Ordering Provider: DANG VALLE R Report Released Date/Time: July 16, 2022 09:37 AM Reporting Lab: [facility] [address] Performing Lab: [facility] [address] .INR 1.0 0.8-1.1 .PT 11.5 9.4-12.5 July 17, 2022 06:51 AM [facility] CBC Specimen Type: BLOOD No comment entered. Ordering Provider: DANG VALLE R Report Released Date/Time: July 16, 2022 09:37 AM Reporting Lab: [facility] [address] Performing Lab: [facility] [address] WBC 6.05 4.0-11.0 RBC 3.77 L 4.6-6.2 HGB 12.7 L 13.5-17.9 HCT 36.0 L 41-54 MCV 95.5 80-100 MCH 33.7 H 27-33 MCHC 35.3 32.0-37.5 PLT 179 150-400 MPV 9.4 7.4-10.4 RDW 13.2 11.5-14.5 July 13, 2022 11:22 AM [facility] COVID-19 AND FLU/RSV DIAG PANEL(CEPHEID) Specimen Typ e: NASOPHARYNGEAL Comment: Cepheid GeneXpert (618) Ordering Provider: WHITNEY ANDERSON Report Released Date/Time: July 13, 2022 11:04 AM Reporting Lab: [facility] [address] Performing Lab: [facility] [address] COVID-19 (CEPHEID) Not Detected Not Detected INFLUENZA A (PCR) Not Detected Not Detected INFLUENZA B (PCR) Not Detected Not Detected RSV (PCR) Not Detected Not Detected July 13, 2022 11:00 AM [facility] C-REACTIVE PROTEIN Specimen Type: SERUM Comment: Automated Differential Performed Ordering Provider: WHITNEY ANDERSON Report Released Date/Time: July 13, 2022 11:04 AM Reporting Lab: [facility] [address] Performing Lab: [facility] [address] C-REACTIVE PROTEIN 1.17 <5.00 July 13, 2022 11:00 AM [facility] PROTHROMBIN TIME/INR Specimen Type: PLASMA No comment entered. Ordering Provider: WHITNEY ANDERSON Report Released Date/Time: July 13, 2022 11:04 AM Reporting Lab: [facility] [address] Performing Lab: [facility] [address] .INR 0.9 0.8-1.1 .PT 11.1 9.4-12.5 July 13, 2022 11:00 AM [facility] SED RATE Specimen Type: BLOOD No comment entered. Ordering Provider: WHITNEY ANEDRSON Report Released Date/Time: July 13, 2022 11:04 AM Reporting Lab: [facility] [address] Performing Lab: [facility] [address] SED RATE 10 5-15 July 13, 2022 11:00 AM [facility] CBC & DIFF Specimen Type: BLOOD Comment: Automated Differential Performed Ordering Provider: WHITNEY ANDERSON Report Released Date/Time: July 13, 2022 11:04 AM Reporting Lab: [facility] [address] Performing Lab: [facility] [address] WBC 8.82 4.0-11.0 RBC 3.89 L 4.6-6.2 [...] 0.03 0-0.1 July 13, 2022 11:00 AM [facility] COMPREHENSIVE METABOLIC PANEL+MG Specimen Type: PLASMA Comment: Automated Differential Performed Ordering Provider: WHITNEY ANDERSON Report Released Date/Time: July 13, 2022 11:04 AM Reporting Lab: [facility] [address] Performing Lab: [facility] [address] CREATININE 1.0 0.7-1.2 UREA NITROGEN 16 8-26 [...] PM 66 /min 114/69 mm[Hg] 92 % [facility] July 21, 2022 01:32 PM 68 /min 88 % [facility] July 21, 2022 01:31 PM 68 /min 89 % [facility] July 21, 2022 01:20 PM 68 /min 112/57 mm[Hg] 93 % [facility] July 21, 2022 01:19 PM 69 /min 89 % [facility] Social History: Smoking [...] 10, 2022 09:15 AM VA-TOBACCO FORMER USER [facility] Tobacco Use History This section includes a history of the smoking, or tobacco-related health factors, that were collected on or before the date of the Encounter. The data comes from the [place] facility where the Encounter took place. Date/Time Smoking Status/Tobacco Use Comment F acility May 10, 2022 09:15 AM VA-TOBACCO QUIT 15 YRS OR MORE [facility] May 11, 2021 09:15 AM VA-TOBACCO FORMER USER [facility] May 11, 2021 09:15 AM [place]-TO[place]ACCO QUIT 15 YRS OR MORE [facility] Nov 22, 2018 01:36 PM VA-TOBACCO NEVER USED [facility] Nov 12, 2017 07:35 AM FORMER TOBACCO USER 7Y OR GREATE R [facility] Nov 06, 2016 09:05 AM FORMER TOBACCO USER 7Y OR GREATE R [facility] Sep 27, 2015 09:42 AM FORMER TOBACCO USER 7Y OR GREATE R [facility] Sep 25, 2014 07:55 AM FORMER TOBACCO USER 7Y OR GREATE R [facility] Sep 08, 2013 07:48 AM FORMER TOBACCO USER 7Y OR GREATE R [facility] July 09, 2012 09:20 AM FORMER TOBACCO USE >1Y <7Y [facility] Jun 06, 2011 07:53 AM FORMER TOBACCO USE >1Y <7Y [facility] Sep 09, 2009 03:03 PM FORMER TOBACCO USE >1Y <7Y [facility] Aug 11, 2008 01:06 PM FORMER TOBACCO USE <1Y [facility] Sep 19, 2007 02:52 PM CURRENT TOBACCO USER [facility] Sep 03, 2006 03:32 PM CURRENT TOBACCO USER [facility] Advance Directives: All historical and current [...] 07:50 AM CHEST 1 VIEW: MARYJO WAGNER [id number] -1950 M Exm Date: JULY 20, 2022@07:50 Req Phys: MACKENZIE COTTER Pat Loc: 07-20-2022@08:26 Img Loc: MAIN X-RAY Service: PRIMARY CARE - MED OFFICE (Case [id number] COMPLETE) CHEST 1 VIEW (RAD Detailed) CPT:28111 Proc Modifiers : PORTABLE EXAM Reason for Study: see below. thanks. Clinical History: IS NOT under investigation for COVID-19 or is COVID-19 negative Please further evaluate for acute airspace disease given o2 requirement. Thanks. Responsible provider name and phone number to notify for critical findings if other than user placing the order and pager listed below: User placing orders pager: [phone] same LAST CREATININE 0.9 (07/19/22) Report Status: Verified Date Reported: JULY 20, 2022 Date Verified: JULY 20, 2022 Business Systems Administrator E-Sig:/ES/JAMIE MIGUEL MD Report: EXAM: CHEST 1 VIEW HISTORY: see below. thanks. Reason for Study: see below. thanks. [place] IS NOT under investigation for COVID-19 or is COVID-19 negative Please further evaluate for acute airspace disease given o2 requirement. Thanks. Responsible provider name and phone number to notify for critical findings if other than user placing the order and pager listed below: User placing orders pager: [phone] same LAST CREATININE 0. COMPARISON: Chest CT [...] Interpreting Staff: JAMIE MIGUEL MD, RADIOLOGIST (Business Systems Administrator) /JAMIE FRANCES [facility] July 18, 2022 12:59 PM ELBOW LEFT 2 VIEWS: MARYJO WAGNER [id number] -1950 M Exm Date: JULY 18, 2022@12:59 Req Phys: LEIF BALBUENA Loc: OR-PACU/07-18-2022@13:59 Img Loc: MAIN X-RAY Service: ZZSURGICAL SERVICE (Case [id number] COMPLETE) ELBOW LEFT 2 VIEWS (RAD Detailed) CPT:03263 Proc Modifiers : PORTABLE EXAM, OPERATING ROOM EXAM Reason for Study: post-op Clinical History: post-op Report Status: Verified Date Reported: JULY 18, 2022 Date Verified: JULY 18, 2022 Business Systems Administrator E-Sig:/ES/JAKUB LEE MD Report: EXAM: ELBOW LEFT [...] Interpreting Staff: JAKUB LEE MD, RADIOLOGIST (Business Systems Administrator) /[facility] JAKUB LEE [facility] July 18, 2022 07:30 AM FLUORO UP TO 1 HR PHYSICIAN TIME: MARYJO WAGNER [id number] -1950 M Exm Date: JULY 18, 2022@07:30 Req Phys: LEIF BALBUENA Loc: OR-PACU/07-18-2022@13:14 Img Loc: MAIN X-RAY Service: PRIMARY CARE - MED OFFICE (Case [id number] COMPLETE) FLUORO UP TO 1 HR PHYSICIAN TIME (RAD Detailed) CPT:87331 Proc Modifiers : PORTABLE EXAM, OPERATING ROOM EXAM, LEFT Reason for Study: Left distal humerous ORIF Clinical History: OR 7 Pathologic distal humeral shaft fracture Responsible provider name and phone number to notify for critical findings if other than user placing the order and pager listed below: User placing orders pager: Henry BALBUENA [phone] LAST CREATININE 0.8 (07/17/22) Report Status: Electronically [...] Imaging Department. VERIFIED BY: / *ELECTRONICALLY FILED* [facility] July 17, 2022 03:28 PM ABDOMINAL AORTOGRAM (P): MARYJO WAGNER [id number] -1950 M Exm Date: JULY 17, 2022@15:28 Req Phys: MALCOM LANGLEY [facility] Loc: 07-17-2022@15:54 Img Loc: INTERVENTIONAL RADIOLOGY Service: PRIMARY CARE - MED OFFICE (Case [id number] COMPLETE) ANGIOGRAPHY EXTREMITY UNILAT S&I (ANI Detailed) CPT:45204 Reason for Study: codes (Case 528 COMPLETE) IR AORTOGRAPHY ABDOMINAL W/O RUNO(ANI Detailed) CPT:78031 (Case 529 COMPLETE) IR FOREIGN BODY REMOVAL INTRAVASC(ANI Detailed) CPT:53942 (Case 532 COMPLETE) IR NEEDLE/INTRACATH PLACEMENT EXT(ANI Detailed) CPT:83139 (Case 533 COMPLETE) IR PLACEMENT OCCLUSIVE DEVICE SAM(ANI Detailed) CPT:G0269 Clinical History: codes Report Status: Verified Date Reported: JULY 17, 2022 Date Verified: JULY 17, 2022 Business Systems Administrator E-Sig:/ES/MALCOM LANGLEY MD Report: RADIOLOGIST: Malcom Langley [...] angiogram and runoff. 12. Closure of right INSPECTOR CRYSTAL with Angio-Seal device. HISTORY: Metastatic renal cell [...] Sheath removed over guidewire and a 5 czech vascular sheath advanced over guidewire into the artery. An H1 catheter was advanced along with the guidewire into the thoracic arch and the left subclavian artery was selected. Catheter and the guidewire were advanced into the left brachial artery. The 5 Slovenian sheath was exchanged for a 6 Slovenian sheath that was advanced into the left [...] arteries. Sheath and catheters were removed and INSPECTOR CRYSTAL arteriotomy was closed using Angioseal. There is patent hemostasis. No bleeding or hematoma noted. Sterile dressing applied. 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 Primary Interpreting Staff: MALCOM LANGLEY MD, INTERVENTIONAL RADIOLOGIST (Business Systems Administrator) /MALCOM HE [facility] July 17, 2022 07:30 AM RENAL ARTERY EMBOLIZATION (P): MARYJO WAGNER [id number] -1950 M Exm Date: JULY 17, 2022@07:30 Req Phys: WESTON VASQUEZ Pat Loc: 07-17-2022@15:46 Img Loc: INTERVENTIONAL RADIOLOGY Service: PRIMARY CARE - MED OFFICE (Case 130 COMPLETE) IR TRANSCATH EMBOLIZATION W/ANGIO(ANI Detailed) CPT:86286 Reason for Study: embolization of RCC mets to left humerus (Case 131 COMPLETE) IR ARTERIAL EMBOLIZATION OTHER TH(ANI Detailed) CPT:81995 (Case 132 COMPLETE) IR US GUIDANCE VASCULAR ACCESS (ANI Detailed) CPT:25806 Clinical History: IS NOT under investigation for [...] pager listed below: User placing orders pager: [phone] LAST CREATININE 1.0 (07/13/22) Report Status: Verified Date Reported: JULY 17, 2022 Date Verified: JULY 17, 2022 Business Systems Administrator E-Sig:/ES/MALCOM LANGLEY MD Report: RADIOLOGIST: Malcom Langley [...] angiogram and runoff. 12. Closure of right INSPECTOR CRYSTAL with Angio-Seal device. HISTORY: Metastatic renal cell [...] Sheath removed over guidewire and a 5 czech vascular sheath advanced over guidewire into the artery. An H1 catheter was advanced along with the guidewire into the thoracic arch and the left subclavian artery was selected. Catheter and the guidewire were advanced into the left brachial artery. The 5 Slovenian sheath was exchanged for a 6 Slovenian sheath that was advanced into the left [...] arteries. Sheath and catheters were removed and INSPECTOR CRYSTAL arteriotomy was closed using Angioseal. There is patent hemostasis. No bleeding or hematoma noted. Sterile dressing applied. 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 Primary Interpreting Staff: MALCOM LANGLEY MD, INTERVENTIONAL RADIOLOGIST (Business Systems Administrator) /MALCOM HE [facility] July 14, 2022 06:44 AM HUMERUS LEFT MINIMUM 2 VIEWS: MARYJO WAGNER [id number] -1950 M Exm Date: JULY 14, 2022@06:44 Req Phys: JEAN PAULLISSETHWESTON [facility] Loc: 07-14-2022@07:13 Img Loc: MAIN X-RAY Service: PRIMARY CARE - MED OFFICE (Case [id number] COMPLETE) HUMERUS LEFT MINIMUM 2 VIEWS (RAD Detailed) CPT:97881 Reason for Study: post reduction Clinical History: Report Status: Verified Date Reported: JULY 14, 2022 Date Verified: JULY 14, 2022 Business Systems Administrator E-Sig: Report: HUMERUS LEFT MINIMUM 2 VIEWS [...] less likely. READING PHYSICIAN: Xavier Merrill MD -[id number] 07/14/2022 5:11 PDT [facility] National Teleradiology Program [phone] (For Medical Practitioner Use Only) Attention Patients / Veterans: If you have questions or concerns about these test results, please contact your ordering provider or primary care team. Primary Interpreting Staff: RADIOLOGY,OUTSIDE SERVICE, Staff Physician / RADIOLOGY,OUTSIDE SERVICE [facility] July 13, 2022 10:07 AM ELBOW LEFT 3 OR MORE VIEWS: MARYJO WAGNER [id number] -1950 M [facility] Date: JULY 13, 2022@10:07 Req Phys: WHITNEY ANDERSON Pat Loc: [facility] EMERGENCY DEPT WALK-IN (Re Img Loc: MAIN X-RAY Service: Unknown (Case [id number] COMPLETE) ELBOW LEFT 3 OR MORE VIEWS (RAD Detailed) CPT:57549 Proc Modifiers : LEFT Reason for Study: L arm pain Clinical History: [place] IS NOT under investigation for COVID-19 or is COVID-19 negative Atraumatic left upper extremity pain that is located midshaft humerus distally to the mid forearm. Clinical concern for dislocation versus fracture versus bone mets Responsible provider name and phone number to notify for critical findings if other than user placing the order and pager listed below: User placing orders pager: [phone] LAST CREATININE 0.8 (05/10/22) Report Status: Verified Date Reported: JULY 13, 2022 Date Verified: JULY 13, 2022 Business Systems Administrator E-Sig:/ES/ALBINA COWAN MD, FACR, CCD Report: EXAMINATION: [...] ALBINA COWAN MD, FACR, STAFF RADIOLOGIST (Business Systems Administrator) /[facility] ALBINA COWAN [facility] July 13, 2022 10:07 AM HUMERUS LEFT MINIMUM 2 VIEWS: MARYJO WAGNER [id number] -1950 M Exm Date: JULY 13, 2022@10:07 Req Phys: WHITNEY ANDERSON Pat Loc: [facility] EMERGENCY DEPT WALK-IN (Re Img Loc: MAIN X-RAY Service: Unknown (Case [id number] COMPLETE) HUMERUS LEFT MINIMUM 2 VIEWS (RAD Detailed) CPT:21370 Proc Modifiers : LEFT Reason for Study: [...] pager listed below: User placing orders pager: [phone] LAST CREATININE 0.8 (05/10/22) Report Status: Verified Date Reported: JULY 13, 2022 Date Verified: JULY 13, 2022 [employer] Me E-Sig:/SANGITA/ALBINA COWAN MD, FACR, CCD Report: EXAMINATION: [...] ALBINA COWAN MD, FACR, STAFF RADIOLOGIST (Business Systems Administrator) /ALBINA NATHAN [facility] July 13, 2022 10:07 AM FOREARM LEFT 2 VIEWS: MARYJO WAGNER [id number] -1950 M Exm Date: JULY 13, 2022@10:07 Req Phys: MONICAWHITNEY MARIN Pat Loc: [facility] EMERGENCY DEPT WALK-IN (Re Img Loc: MAIN X-RAY Service: Unknown (Case [id number] COMPLETE) FOREARM LEFT 2 VIEWS (RAD Detailed) CPT:56431 Proc Modifiers : LEFT Reason for Study: L arm pain Clinical History: [place] IS NOT under investigation for COVID-19 or is COVID-19 negative Atraumatic left upper extremity pain that is located midshaft humerus distally to the mid forearm. Clinical concern for dislocation versus fracture versus bone mets Responsible provider name and phone number to notify for critical findings if other than user placing the order and pager listed below: User placing orders pager: [phone] LAST CREATININE 0.8 (05/10/22) Report Status: Verified Date Reported: JULY 13, 2022 Date Verified: JULY 13, 2022 Business Systems Administrator E-Sig:/ES/ALBINA COWAN MD, FACR, [facility] Report: EXAMINATION: FOREARM LEFT 2 VIEWS [...] noted suspicious for metastasis. Primary Interpreting Staff: ALBIAN COWAN MD, FACR, STAFF RADIOLOGIST (Business Systems Administrator) /ALBINA NATHAN [facility] Pathology Reports: +/- 30 days of [...] COSIGNER: URGENCY: STATUS: COMPLETED $APHDR Reporting Lab: [facility] [CLIA# [id number]] [place] [address] - - - - - - - [...] SANDOVAL STAFF PATHOLOGIST, PATHOLOGY & LABORATORY [facility] Signed July 21, 2022@14:37 Performing Laboratory: Surgical Pathology Report Performed By: [facility] [CLIA# [id number]] [place] [address] $FTR - - - - - - [...] - - MARYJO WAGNER STANDARD FORM 515 ID:[id number] SEX:M :1950 AGE: 72 LOC:[facility] PATHOLOGY PRO FEE ADM:June DX:PATHOLOGIC FX LF HUMERUS PCP: Leif Balbuena MD /sangita/ JIAN SANDOVAL STAFF PATHOLOGIST, PATHOLOGY & LABORATORY [facility] Signed: 07/21/2022 14:37 JIAN SANDOVAL [facility]
--- OUTSIDE RECORDS SUMMARY | 2023-03-24 08:49 | XMS_ITS | Encounter Summary ---
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 Organization Department of [facility] Address [address] [place] [id number] Support Name Relationship Address Phone DOREEN WAGNER Next of Kin [address] [place] [phone] DOREEN Emergency Contact [address] [place] [address] Insurance Providers: All historical and current [...] [facility] June 26, 2016 [id number] CARSONLELIAJOAN KARSTEN PATIENT [employer] M[employer] (WNR) MEDICARE ADVANTAGE [facility] (WNR) June 26, 2016 [id number] JOAN WAGNER KARSTEN PATIENT [employer] (WNR) MEDICARE ADVANTAGE [facility] (R) June 26, 2016 [id number] JOAN WAGNER PATIENT Selected Encounter This section includes the information on record at [place] for the Encounter. Date/Time Encounter Type Encounter Description Reason Pro vider Source July 21, 2022 01:56 PM Inpatient Visit CLINICAL PHARMACY E Encounter Template Text not used by MT Plan of Treatment: Future Appointments (+ 6 months) and Future Tests (+/- 45 days) The Plan of Treatment section includes future care activities for the patient from all [place] treatmentfacilities. This section includes future appointments and future orders which are active, pending or scheduled. Future Appointments This section includes appointments that were scheduled to occur 6 months from the date of the Encounter, up to a maximum of 20 appointments. The data comes from all [facility]. Appointment Date/Time Appointment Type Appointme nt Facility Name Jul 28, 2022 10:45 AM AM[facility]UL[facility] Aug 13, 2022 06:13 PM AMBULATORY - MEDICINE [facility] Aug 23, 2022 09:30 AM AMBULATORY - SURGERY [facility] Aug 23, 2022 09:45 AM [facility] - NONE [facility] Aug 23, 2022 10:30 AM AMBULATORY - MEDICINE [facility] Aug 23, 2022 10:31 AM AMBULATORY - MEDICINE [facility] Sep 06, 2022 10:15 AM AMBULATORY - SURGERY [facility] Oct 25, 2022 07:00 AM [facility] Oct 25, 2022 07:30 AM AMBULATORY - SURGERY [facility] Oct 25, 2022 09:00 AM AMBULATORY - SURGERY [facility] Active, Pending, and Scheduled Orders This [...] from all [facility]. Test Date/Time Test Type Test Details Facility Name Jun 12, 2022 12:00 AM Laboratory - Chemistry Order COMPREHENSIVE METABOLIC PANEL+MG PLASMA ONCO SP ONCE [facility] Jun 12, 2022 12:00 AM Laboratory - Chemistry Order CBC & DIFF BLOOD ONCO SP [facility] Jun 12, 2022 12:00 AM Laboratory - Chemistry Order TSH W/REFLEX TO FREE T4 PLASMA ONCO SP [facility] July 14, 2022 12:00 AM Laboratory - Blood Bank Order ABO/RH - LAB BLOOD [facility] July 14, 2022 02:05 PM Laboratory - Blood Bank Order TYPE & SCREEN - LAB BLOOD [facility] Aug 07, 2022 11:23 AM Laboratory - Chemistry Order DRUG SCREEN PANEL,URINE URINE [facility] Aug 23, 2022 10:47 AM Laboratory - Chemistry Order URINALYSIS URINE ER STAT [facility] Lab Results: +/- 30 days of the encounter This section includes the Chemistry and Hematology Lab Results on record with MT for the patient. Radiology Reports and Pathology Reports are provided separately, in subsequent sections. Lab Results This section contains the Chemistry/Hematology Results that were resulted 30 days before or 30 daysafter the date of the Encounter. Date/Time Source Result Type Result - Unit Interpretation Reference Range Comment July 19, 2022 04:40 PM [facility] FINGERSTICK GLUCOSE Specimen Type: BLOOD Comment: Save Result Nurse Notified Ordering Provider: MACKENZIE COTTER Report Released Date/Time: July 19, 2022 05:00 PM Reporting Lab: [facility] [address] Performing Lab: [facility] [address] FINGERSTICK GLUCOSE 132 70-100 July 19, 2022 07:13 AM [facility] COMPREHENSIVE METABOLIC PANEL+MG Specimen Type: PLASMA No comment entered. Ordering Provider: MACKENZIE COTTER Report Released Date/Time: July 18, 2022 05:40 PM Reporting Lab: [facility] [address] Performing Lab: [facility] [address] CREATININE 0.9 0.7-1.2 UREA NITROGEN 24 8-26 [...] See_Commen t July 19, 2022 07:13 AM [facility] IRON GROUP Specimen Type: SERUM No comment entered. Ordering Provider: MACKENZIE COTTER Report Released Date/Time: July 18, 2022 05:40 PM Reporting Lab: [facility] [address] Performing Lab: [facility] [address] IRON 28 L 65-175 TIBC,CALCULATE D 223 L 250-425 FERRITIN 73.7 21.8-274.7 IRON SATURATION 13 L 20-50 TRANSFERRIN 178 163-382 July 19, 2022 07:13 AM [facility] CBC Specimen Type: BLOOD No comment entered. Ordering Provider: MACKENZIE COTTER Report Released Date/Time: July 18, 2022 05:40 PM Reporting Lab: [facility] [address] Performing Lab: [facility] [address] WBC 7.73 4.0-11.0 RBC 2.42 L 4.6-6.2 HGB 8.2 L 13.5-17.9 HCT 23.8 L 41-54 MCV 98.3 80-100 MCH 33.9 H 27-33 MCHC 34.5 32.0-37.5 PLT 155 150-400 MPV 9.6 7.4-10.4 RDW 13.5 11.5-14.5 July 19, 2022 05:44 AM [facility] FINGERSTICK GLUCOSE Specimen Type: BLOOD Comment: Save Result Nurse Notified Ordering Provider: MACKENZIE COTTER Report Released Date/Time: July 19, 2022 11:54 AM Reporting Lab: [facility] [address] Performing Lab: [facility] [address] FINGERSTICK GLUCOSE 137 70-100 July 18, 2022 10:51 PM [facility] FINGERSTICK GLUCOSE Specimen Type: BLOOD Comment: Save Result Nurse Notified Ordering Provider: MACKENZIE COTTER Report Released Date/Time: July 18, 2022 11:06 PM Reporting Lab: [facility] [address] Performing Lab: [facility] [address] FINGERSTICK GLUCOSE 163 70-100 July 17, 2022 06:51 AM [facility] BASIC METABOLIC PANEL+MG Specimen Type: PLASMA No comment entered. Ordering Provider: DANG VALLE Report Released Date/Time: July 16, 2022 09:37 AM Reporting Lab: [facility] [address] Performing Lab: [facility] [address] CREATININE 0.8 0.7-1.2 UREA NITROGEN 23 8-26 GLUCOSE 107 H 70-100 SODIUM 139 136-145 POTASSIUM 3.9 3.5-5.1 CHLORIDE 106 98-107 CO2 28 22-29 CALCIUM 9.1 8.4-10.2 MAGNESIUM 1.9 1.6-2.6 ANION GAP 5 5-15 .CREAT EGFR(CKD-EPI) >90 See_Commen t July 17, 2022 06:51 AM [facility] PROTHROMBIN TIME/INR Specimen Type: PLASMA No comment entered. Ordering Provider: DANG VALLE R Report Released Date/Time: July 16, 2022 09:37 AM Reporting Lab: [facility] [address] Performing Lab: [facility] [address] .INR 1.0 0.8-1.1 .PT 11.5 9.4-12.5 July 17, 2022 06:51 AM [facility] CBC Specimen Type: BLOOD No comment entered. Ordering Provider: DANG VALLE Report Released Date/Time: July 16, 2022 09:37 AM Reporting Lab: [facility] [address] Performing Lab: [facility] [address] WBC 6.05 4.0-11.0 RBC 3.77 L 4.6-6.2 HGB 12.7 L 13.5-17.9 HCT 36.0 L 41-54 MCV 95.5 80-100 MCH 33.7 H 27-33 MCHC 35.3 32.0-37.5 PLT 179 150-400 MPV 9.4 7.4-10.4 RDW 13.2 11.5-14.5 July 13, 2022 11:22 AM [facility] COVID-19 AND FLU/RSV DIAG PANEL(CEPHEID) Specimen Typ e: NASOPHARYNGEAL Comment: Cepheid GeneXpert (618) Ordering Provider: WHITNEY ANDERSON Report Released Date/Time: July 13, 2022 11:04 AM Reporting Lab: [facility] [address] Performing Lab: [facility] [address] COVID-19 (CEPHEID) Not Detected Not Detected INFLUENZA A (PCR) Not Detected Not Detected INFLUENZA B (PCR) Not Detected Not Detected RSV (PCR) Not Detected Not Detected July 13, 2022 11:00 AM [facility] C-REACTIVE PROTEIN Specimen Type: SERUM Comment: Automated Differential Performed Ordering Provider: WHITNEY ANDERSON Report Released Date/Time: July 13, 2022 11:04 AM Reporting Lab: [facility] [address] Performing Lab: [facility] [address] C-REACTIVE PROTEIN 1.17 <5.00 July 13, 2022 11:00 AM [facility] PROTHROMBIN TIME/INR Specimen Type: PLASMA No comment entered. Ordering Provider: WHITNEY ANDERSON Report Released Date/Time: July 13, 2022 11:04 AM Reporting Lab: [facility] [address] Performing Lab: [facility] [address] .INR 0.9 0.8-1.1 .PT 11.1 9.4-12.5 July 13, 2022 11:00 AM [facility] SED RATE Specimen Type: BLOOD No comment entered. Ordering Provider: WHITNEY ANDERSON Report Released Date/Time: July 13, 2022 11:04 AM Reporting Lab: [facility] [address] Performing Lab: [facility] [address] SED RATE 10 5-15 July 13, 2022 11:00 AM [facility] CBC & DIFF Specimen Type: BLOOD Comment: Automated Differential Performed Ordering Provider: WHITNEY ANDERSON Report Released Date/Time: July 13, 2022 11:04 AM Reporting Lab: [facility] [address] Performing Lab: [facility] [address] WBC 8.82 4.0-11.0 RBC 3.89 L 4.6-6.2 [...] 0.03 0-0.1 July 13, 2022 11:00 AM [facility] COMPREHENSIVE METABOLIC PANEL+MG Specimen Type: PLASMA Comment: Automated Differential Performed Ordering Provider: WHITNEY ANDERSON Report Released Date/Time: July 13, 2022 11:04 AM Reporting Lab: [facility] [address] Performing Lab: [facility] [address] CREATININE 1.0 0.7-1.2 UREA NITROGEN 16 8-26 [...] PM 66 /min 114/69 mm[Hg] 92 % [facility] July 21, 2022 01:32 PM 68 /min 88 % [facility] July 21, 2022 01:31 PM 68 /min 89 % [facility] July 21, 2022 01:20 PM 68 /min 112/57 mm[Hg] 93 % [facility] July 21, 2022 01:19 PM 69 /min 89 % [facility] Social History: Smoking Status (Most current) and Tobacco Use (All prior to encounter date) This section includes the most current, and the historical, smoking and tobacco- related health factors from the [place] facility where the Encounter took place. Current Smoking Status This section includes the most current smoking, or tobacco-related health factor, from the [place] facility where the Encounter took place. Date/Time Current Smoking Status Comment Facil ity May 10, 2022 09:15 AM MT-TOBACCO QUIT 15 YRS OR MORE [facility] Tobacco Use History This section includes a history of the smoking, or tobacco-related health factors, that were collected on or before the date of the Encounter. The data comes from the [place] facility where the Encounter took place. Date/Time Smoking Status/Tobacco Use Comment F acility May 10, 2022 09:15 AM VA-TOBACCO QUIT 15 YRS OR MORE [facility] May 11, 2021 09:15 AM VA-TOBACCO FORMER USER [facility] May 11, 2021 09:15 AM MT-TOBACCO QUIT 15 YRS OR MORE [facility] Nov 22, 2018 01:36 PM VA-TOBACCO NEVER USED [facility] Nov 12, 2017 07:35 AM FORMER TOBACCO USER 7Y OR GREATE R [facility] Nov 06, 2016 09:05 AM FORMER TOBACCO USER 7Y OR GREATE R [facility] Sep 27, 2015 09:42 AM FORMER TOBACCO USER 7Y OR GREATE R [facility] Sep 25, 2014 07:55 AM FORMER TOBACCO USER 7Y OR GREATE R [facility] Sep 08, 2013 07:48 AM FORMER TOBACCO USER 7Y OR GREATE R [facility] July 09, 2012 09:20 AM FORMER TOBACCO USE >1Y <7Y [facility] Jun 06, 2011 07:53 AM FORMER TOBACCO USE >1Y <7Y [facility] Sep 09, 2009 03:03 PM FORMER TOBACCO USE >1Y <7Y [facility] Aug 11, 2008 01:06 PM FORMER TOBACCO USE <1Y [facility] Sep 19, 2007 02:52 PM CURRENT TOBACCO USER [facility] Sep 03, 2006 03:32 PM CURRENT TOBACCO USER [facility] Advance Directives: All historical and current Section Date Range: From patient's date of to the date document was created. This section includes ALL of a patient's completed or amended [place] Advance and Rescinded Directives. The entries below indicate that a directive exists for the patient, but an actual copy is not included with this document. The data comes from all [facility]. Date Advance Directives Provider Source Mar 18, 2003 ADVANCE DIRECTIVE FARHAT MELGAR [facility] Radiology Reports: +/- 30 days [...] the Encounter. The data comes from all [place] treatment facilities. Date/Time Radiology Report Provider Source July 20, 2022 07:50 AM CHEST 1 VIEW: MARYJO WAGNER [id number] -1950 M Exm Date: JULY 20, 2022@07:50 Req Phys: MACKENZIE COTTER Pat Loc: 07-20-2022@08:26 Img Loc: MAIN X-RAY Service: PRIMARY CARE - MED OFFICE (Case [id number] COMPLETE) CHEST 1 VIEW (RAD Detailed) CPT:21412 Proc Modifiers : PORTABLE EXAM Reason for Study: see below. thanks. Clinical History: [place] IS NOT under investigation for COVID-19 or is COVID-19 negative Please further evaluate for acute airspace disease given o2 requirement. Thanks. Responsible provider name and phone number to notify for critical findings if other than user placing the order and pager listed below: User placing orders pager: [phone] same LAST CREATININE 0.9 (07/19/22) Report Status: Verified Date Reported: JULY 20, 2022 Date Verified: JULY 20, 2022 Director Oncology E-Sig:/ES/JAMIE MIGUEL MD Report: EXAM: CHEST 1 [...] pager listed below: User placing orders pager: [phone] same LAST CREATININE 0. COMPARISON: Chest CT [...] Primary Interpreting Staff: JAMIE MIGUEL MD, RADIOLOGIST (Director Oncology) /JAMIE FRANCES [facility] July 18, 2022 12:59 PM ELBOW LEFT 2 VIEWS: MARYJO WAGNER [id number] -1950 M Exm Date: JULY 18, 2022@12:59 Req Phys: LEIF BALBUENA Loc: OR-PACU/07-18-2022@13:59 Img Loc: MAIN X-RAY Service: ZZSURGICAL SERVICE (Case [id number] COMPLETE) ELBOW LEFT 2 VIEWS (RAD Detailed) CPT:79870 Proc Modifiers : PORTABLE EXAM, OPERATING ROOM EXAM Reason for Study: post-op Clinical History: post-op Report Status: Verified Date Reported: JULY 18, 2022 Date Verified: JULY 18, 2022 Director Oncology E-Sig:/ES/JAKUB LEE MD Report: EXAM: ELBOW LEFT [...] Primary Interpreting Staff: JAKUB LEE MD, RADIOLOGIST (Director Oncology) /[facility] JAKUB LEE [facility] July 18, 2022 07:30 AM FLUORO UP TO 1 HR PHYSICIAN TIME: MARYJO WAGNER [id number] -1950 M Exm Date: JULY 18, 2022@07:30 Req Phys: LEIF BALBUENA Loc: OR-PACU/07-18-2022@13:14 Img Loc: MAIN X-RAY Service: PRIMARY CARE - MED OFFICE (Case [id number] COMPLETE) FLUORO UP TO 1 HR PHYSICIAN TIME (RAD Detailed) CPT:39509 Proc Modifiers : PORTABLE EXAM, OPERATING ROOM EXAM, LEFT Reason for Study: Left distal humerous ORIF Clinical History: OR 7 Pathologic distal humeral shaft fracture Responsible provider name and phone number to notify for critical findings if other than user placing the order and pager listed below: User placing orders pager: Henry BALBUENA [phone] LAST CREATININE 0.8 (07/17/22) Report Status: Electronically Filed Date Reported: JULY 18, 2022 Report: Impression: Please see the full report for this procedure in CPRS patient progress notes. Fluoro guidance was provided during this procedure, but the study was not reviewed or verified by a [facility] radiologist. The radiation exposure dose has been recorded in the patient's chart. If you are unable to view this data, please contact the Imaging Department. VERIFIED BY: / *ELECTRONICALLY FILED* [facility] July 17, 2022 03:28 PM ABDOMINAL AORTOGRAM (P): MARYJO WAGNER [id number] -1950 M Exm Date: JULY 17, 2022@15:28 Req Phys: MALCOM LANGLEY [facility] Loc: 07-17-2022@15:54 Img Loc: INTERVENTIONAL RADIOLOGY Service: PRIMARY CARE - MED OFFICE (Case [id number] COMPLETE) ANGIOGRAPHY EXTREMITY UNILAT S&I (ANI Detailed) CPT:10997 Reason for Study: codes (Case 528 COMPLETE) IR AORTOGRAPHY ABDOMINAL W/O RUNO(ANI Detailed) CPT:37128 (Case 529 COMPLETE) IR FOREIGN BODY REMOVAL INTRAVASC(ANI Detailed) CPT:21704 (Case 532 COMPLETE) IR NEEDLE/INTRACATH PLACEMENT EXT(ANI Detailed) CPT:41691 (Case 533 COMPLETE) IR PLACEMENT OCCLUSIVE DEVICE SAM(ANI Detailed) CPT:G0269 Clinical History: codes Report Status: Verified Date Reported: JULY 17, 2022 Date Verified: JULY 17, 2022 Director Oncology E-Sig:/ES/MALCOM LANGLEY MD Report: RADIOLOGIST: Malcom Langley [...] angiogram and runoff. 12. Closure of right PRINTING SCREEN ASSEMBLER with Angio-Seal device. HISTORY: Metastatic renal cell [...] Sheath removed over guidewire and a 5 moroccan vascular sheath advanced over guidewire into the artery. An H1 catheter was advanced along with the guidewire into the thoracic arch and the left subclavian artery was selected. Catheter and the guidewire were advanced into the left brachial artery. The 5 Micronesian sheath was exchanged for a 6 Micronesian sheath that was advanced into the left [...] arteries. Sheath and catheters were removed and PRINTING SCREEN ASSEMBLER arteriotomy was closed using Angioseal. There is patent hemostasis. No bleeding or hematoma noted. Sterile dressing applied. 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 Primary Interpreting Staff: MALCOM LANGLEY MD, INTERVENTIONAL RADIOLOGIST (Director Oncology) /MALCOM HE [facility] July 17, 2022 07:30 AM RENAL ARTERY EMBOLIZATION (P): MARYJO WAGNER [id number] -1950 M Exm Date: JULY 17, 2022@07:30 Req Phys: WESTON VASQUEZ Pat Loc: 07-17-2022@15:46 Img Loc: INTERVENTIONAL RADIOLOGY Service: PRIMARY CARE - MED OFFICE (Case 130 COMPLETE) IR TRANSCATH EMBOLIZATION W/ANGIO(ANI Detailed) CPT:31961 Reason for Study: embolization of RCC mets to left humerus (Case 131 COMPLETE) IR ARTERIAL EMBOLIZATION OTHER TH(ANI Detailed) CPT:70523 (Case 132 COMPLETE) IR US GUIDANCE VASCULAR ACCESS (ANI Detailed) CPT:98029 Clinical History: [place] IS NOT under investigation for COVID-19 or [...] pager listed below: User placing orders pager: [phone] LAST CREATININE 1.0 (07/13/22) Report Status: Verified Date Reported: JULY 17, 2022 Date Verified: JULY 17, 2022 Director Oncology E-Sig:/ES/MALCOM LANGLEY MD Report: RADIOLOGIST: Malcom Langley [...] angiogram and runoff. 12. Closure of right PRINTING SCREEN ASSEMBLER with Angio-Seal device. HISTORY: Metastatic renal cell [...] Sheath removed over guidewire and a 5 moroccan vascular sheath advanced over guidewire into the artery. An H1 catheter was advanced along with the guidewire into the thoracic arch and the left subclavian artery was selected. Catheter and the guidewire were advanced into the left brachial artery. The 5 Micronesian sheath was exchanged for a 6 Micronesian sheath that was advanced into the left [...] arteries. Sheath and catheters were removed and PRINTING SCREEN ASSEMBLER arteriotomy was closed using Angioseal. There is patent hemostasis. No bleeding or hematoma noted. Sterile dressing applied. 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 Primary Interpreting Staff: MALCOM LANGLEY MD, INTERVENTIONAL RADIOLOGIST (Director Oncology) /MALCOM HE [facility] July 14, 2022 06:44 AM HUMERUS LEFT MINIMUM 2 VIEWS: MARYJO WAGNER [id number] -1950 M Exm Date: JULY 14, 2022@06:44 Req Phys: PEDROWESTON [facility] Loc: 07-14-2022@07:13 Img Loc: MAIN X-RAY Service: PRIMARY CARE - MED OFFICE (Case [id number] COMPLETE) HUMERUS LEFT MINIMUM 2 VIEWS (RAD Detailed) CPT:39584 Reason for Study: post reduction Clinical History: Report Status: Verified Date Reported: JULY 14, 2022 Date Verified: JULY 14, 2022 Director Oncology E-Sig: Report: HUMERUS LEFT MINIMUM 2 VIEWS HISTORY: post reduction COMPARISON: 07/13/2022 TECHNIQUE: 2 view(s) of the humerus, submitted to the [place] National Teleradiology Program (NTP) for interpretation. FINDINGS: [...] less likely. READING PHYSICIAN: Xavier Merrill MD -[phone] 07/14/2022 5:11 PDT [facility] National Teleradiology Program [phone] (For Medical Practitioner Use Only) Attention Patients / Veterans: If you have questions or concerns about these test results, please contact your ordering provider or primary care team. Primary Interpreting Staff: RADIOLOGY,OUTSIDE SERVICE, Staff Physician / RADIOLOGY,OUTSIDE SERVICE [facility] July 13, 2022 10:07 AM HUMERUS LEFT MINIMUM 2 VIEWS: MARYJO WAGNER [id number] -1950 M Ex Date: JULY 13, 2022@10:07 Req Phys: WHITNEY ANDEROSN Pat Loc: [facility] EMERGENCY DEPT WALK-IN (Re Img Loc: MAIN X-RAY Service: Unknown (Case [id number] COMPLETE) HUMERUS LEFT MINIMUM 2 VIEWS (RAD Detailed) CPT:34394 Proc Modifiers : LEFT Reason for Study: L arm pain Clinical History: [place] IS NOT under investigation for COVID-19 or is COVID-19 negative Atraumatic left upper extremity pain that is located midshaft humerus distally to the mid forearm. Clinical concern for dislocation versus fracture versus bone mets Responsible provider name and phone number to notify for critical findings if other than user placing the order and pager listed below: User placing orders pager: [phone] LAST CREATININE 0.8 (05/10/22) Report Status: Verified Date Reported: JULY 13, 2022 Date Verified: JULY 13, 2022 Director Oncology E-Sig:/SANGITA/ALBINA COWAN MD, FACR, CCD Report: EXAMINATION: [...] Staff: ALBINA COWAN MD, FACR, STAFF RADIOLOGIST (Director Oncology) /[facility] ALBINA COWAN [facility] July 13, 2022 10:07 AM ELBOW LEFT 3 OR MORE VIEWS: CARSONMARYJO ROWELL [id number] -1950 M Exm Date: JULY 13, 2022@10:07 Req Phys: WHITNEY ANDERSON Pat Loc: [facility] EMERGENCY DEPT WALK-IN (Re Img Loc: MAIN X-RAY Service: Unknown (Case [id number] COMPLETE) ELBOW LEFT 3 OR MORE VIEWS (RAD Detailed) CPT:56118 Proc Modifiers : LEFT Reason for Study: [...] pager listed below: User placing orders pager: [phone] LAST CREATININE 0.8 (05/10/22) Report Status: Verified Date Reported: JULY 13, 2022 Date Verified: JULY 13, 2022 Director Oncology E-Sig:/SANGITA/ALBINA COWAN MD, FACR, CCD Report: EXAMINATION: [...] Staff: ALBINA COWAN MD, FACR, STAFF RADIOLOGIST (Director Oncology) /ALBINA NATHAN [facility] July 13, 2022 10:07 AM FOREARM LEFT 2 VIEWS: MARYJO WAGNER [id number] -1950 M Exm Date: JULY 13, 2022@10:07 Req Phys: MONICAWHITNEY TOMAS Pat Loc: [facility] EMERGENCY DEPT WALK-IN (Re Img Loc: MAIN X-RAY Service: Unknown (Case [id number] COMPLETE) FOREARM LEFT 2 VIEWS (RAD Detailed) CPT:44043 Proc Modifiers : LEFT Reason for Study: L arm pain Clinical History: [place] IS NOT under investigation for COVID-19 or is COVID-19 negative Atraumatic left upper extremity pain that is located midshaft humerus distally to the mid forearm. Clinical concern for dislocation versus fracture versus bone mets Responsible provider name and phone number to notify for critical findings if other than user placing the order and pager listed below: User placing orders pager: [phone] LAST CREATININE 0.8 (05/10/22) Report Status: Verified Date Reported: JULY 13, 2022 Date Verified: JULY 13, 2022 Director Oncology E-Sig:/ES/ALBINA COWAN MD, FACR, [facility] Report: EXAMINATION: FOREARM LEFT 2 VIEWS [...] Staff: ALBINA COWAN MD, FACR, STAFF RADIOLOGIST (Director Oncology) /ALBINA NATHAN [facility] Pathology Reports: +/- 30 days [...] the Encounter. The data comes from all [place] treatment facilities. Date/Time Pathology Report Provider Source July 13, 2022 04:06 PM LR SURGICAL PATHOL OGY REPORT: LOCAL TITLE: LR SURGICAL PATHOLOGY REPORT STANDARD TITLE: PATHOLOGY REPORT DATE OF NOTE: JULY 21, 2022@14:37:27 ENTRY DATE: JULY 21, 2022@14:37:27 AUTHOR: JIAN SANDOVAL EXP COSIGNER: URGENCY: STATUS: COMPLETED $APHDR Reporting Lab: [facility] [CLIA# [id number]] [place] [address] - - - - - - - [...] Performing Laboratory: Surgical Pathology Report Performed By: [facility] [CLIA# [id number]] [place] [address] $FTR - - - - - - [...] - - MARYJO WAGNER STANDARD FORM 515 ID:[id number] SEX:M :1950 AGE: 72 LOC:[facility] PATHOLOGY PRO FEE ADM:June DX:PATHOLOGIC FX LF HUMERUS PCP: Leif Balbuena MD /sangita/ JIAN SANDOVAL STAFF PATHOLOGIST, PATHOLOGY & LABORATORY MED [facility] Signed: 07/21/2022 14:37 [facility] Encounter Notes: All associated encounter notes This section contains the clinical notes associated to the Encounter. Date/Time Encounter Note(s) Provider Source July 21, 2022 01:56 PM PHARMACY EDUCATION NOTE: LOCAL TITLE: EDUCATION PHARMACY MED INSTRUCTION/RECONCILIATION STANDARD TITLE: PHARMACY EDUCATION NOTE DATE OF NOTE: JULY 21, 2022@13:56 ENTRY DATE: JULY 21, 2022@13:56:47 AUTHOR: ZO URBINA COSIGNER: URGENCY: STATUS: COMPLETED MEDICATION DISCHARGE EDUCATION LEARNING NEEDS/OBJECTIVES Participant(s) indicates readiness to learn and has been instructed on indications, side effects, directions for use and given a list of medications. Participant(s) will receive medication information sheets for medications filled. Education included discussion of the following: New: - Acetaminophen - Oxycodone o Can cause drowsiness and sedation; which is increased in combination with pregabalin. Limit use as tolerated and do not drink alcohol or drive while taking this medication o Can cause constipation, we are sending a medication to assist with constipation - Polyethylene Glycol Powder o Use as needed can stop taking when stopping oxycodone - Pregabalin o Can cause drowsiness and sedation Changed: - Aspirin (previously non-VA medications) is increased HOLD: Do not take lisinopril until instructed by your primary provider to continue due to lower blood pressures while in the hospital Pharmacy refill process. Tobacco Cessation Discharge Plan Not Applicable Outpatient Medications Status 1) ACETAMINOPHEN 325MG TAB TAKE TWO TABLETS BY MOUTH ACTIVE EVERY 6 HOURS NEEDED FOR PAIN 2) ASPIRIN 81MG EC TAB TAKE TWO TABLETS BY MOUTH EVERY ACTIVE DAY TO PREVENT BLOOD CLOTS TAKE UNTIL TOLD OKAY TO DISCONTINUE BY ORTHOPEDICS 3) CATHETER,SELF-CATH COUDE 14FR COLO#[id number] USE CATHETER ACTIVE TOPICALLY DIRECTED 4) LISINOPRIL 20MG TAB TAKE ONE TABLET BY MOUTH EVERY ACTIVE DAY FOR BLOOD PRESSURE 5) LUBRICATING TOP JELLY BACTERIOSTATIC APPLY JELLY ACTIVE TOPICALLY DIRECTED 6) OXYCODONE 5MG TAB TAKE ONE TABLET BY MOUTH Q6 ACTIVE NEEDED FOR PAIN 7) POLYETHYLENE GLYCOL 3350 [...] EVERY DAY ACTIVE 12 Total Medications PARTICIPANTS: Patient Family/significant other TEACHING STRATEGY: Face to Face Medication information sheets and list of medications READINESS TO LEARN No barriers identified PATIENT/FAMILY RESPONSE (OUTCOME): Verbalizes critical information about the topic FOLLOW-UP RECOMMENDED: As directed by discharging provider /sangita/ ZO URBINA Pharmacist Signed: 07/21/2022 13:58 Receipt Acknowledged By: * AWAITING SIGNATURE * BRISSA LE[facility]
--- OUTSIDE RECORDS SUMMARY | 2023-03-24 08:50 | XMS_ITS ---
NON-OR ANESTHESIA PROCEDURES [facility] Encounter Summary Created on: March 24, 2023 MARYJO WAGNER : 1950 Sex: Male 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 Organization [facility] Address [address] [place] [address] Support Name Relationship Address Phone DOREEN WAGNER Next of Kin [address] [place] [id number] DOREEN Emergency Contact [address] [place] [phone] Insurance Providers: All historical and current [...] Name Patient's Relationship to Policy [place] [employer] [facility] (R) MEDICARE ADVANTAGE MCR ([facility]) June 26, 2016 [id number] JOAN WAGNER KARSTEN PATIENT [employer]NA MCR (WNR) MEDICARE ADVANTAGE MCR ([facility]) June 26, 2016 [id number] [phone] JOAN WAGNER PATIENT [employer]MANA MCR (WNR) MEDICARE ADVANTAGE [facility] ([facility]) June 26, 2016 [id number] JOAN WAGNER PATIENT Selected Encounter This section includes the information on record at [place] for the Encounter. Date/Time Encounter Type Encounter Description Reason Provider Source July 21, 2022 03:09 PM POSTOP FOLLOW-UP VISIT NON-OR ANESTHESIA PROCEDURES ICD-10-CM M79.602 Pain in left arm CHARLES ABARCA Encounter Template Text not used by [place] Assessments - Encounter Diagnoses This section includes the primary and secondary diagnoses documented for the Encounter. Date/Time Primary/Secondary Diagnosis Diagnosis Name Provider Source July 21, 2022 03:21 PM PRIMARY Pain in left arm CHARLES ABARCA [facility] Plan of Treatment: Future Appointments (+ 6 months) and Future Tests (+/- 45 days) The Plan of Treatment section includes future care activities for the patient from all [place] [facility] This section includes future appointments and future orders which are active, pending or scheduled. Future Appointments This section includes appointments that were scheduled to occur 6 months from the date of the Encounter, up to a maximum of 20 appointments. The data comes from all [facility]. Appointment Date/Time Appointment Type Appointme nt Facility Name Jul 28, 2022 10:45 AM AMBULATORY - MEDICINE [facility] Aug 13, 2022 06:13 PM AMBULATORY - MEDICINE [facility] Aug 23, 2022 09:30 AM AMBULATORY - SURGERY [facility] Aug 23, 2022 09:45 AM AMBULATORY - NONE [facility] Aug 23, 2022 10:30 AM AMBULATORY - MEDICINE [facility] Aug 23, 2022 10:31 AM AMBULATORY - MEDICINE [facility] Sep 06, 2022 10:15 AM AMBULATORY - SURGERY [facility] Oct 25, 2022 07:00 AM AMBULATORY - NONE [facility] Oct 25, 2022 07:30 AM AMBULATORY - SURGERY [facility] Oct 25, 2022 09:00 AM AMBULATORY SURGERY [facility] Active, Pending, and [...] of theEncounter. The data comes from all [facility]. Test Date/Time Test Type Test Details Facility Name Jun 12, 2022 12:00 AM Laboratory - Chemistry Order CBC & DIFF BLOOD ONCO SP ONCE [facility] Jun 12, 2022 12:00 AM Laboratory - Chemistry Order COMPREHENSIVE METABOLIC PANEL+MG PLASMA ONCO SP ONCE [facility] Jun 12, 2022 12:00 AM Laboratory - Chemistry Order TSH W/REFLEX TO FREE T4 PLASMA ONCO SP ONCE [facility] July 14, 2022 12:00 AM Laboratory - Blood Bank Order ABO/RH - LAB BLOOD WC [facility] July 14, 2022 02:05 PM Laboratory - Blood Bank Order TYPE & SCREEN - LAB BLOOD [facility] Aug 07, 2022 11:23 AM Laboratory - Chemistry Order DRUG SCREEN PANEL,URINE URINE ONCE [facility] [...] Range Comment July 19, 2022 04:40 PM [facility] FINGERSTICK GLUCOSE Specimen Type: BLOOD Comment: Save Result Nurse Notified Ordering Provider: MACKENZIE COTTER Report Released Date/Time: July 19, 2022 05:00 PM Reporting Lab: [facility] [phone] Performing Lab: [facility] [address] FINGERSTICK GLUCOSE 132 70-100 July 19, 2022 07:13 AM [facility] COMPREHENSIVE METABOLIC PANEL+MG Specimen Type: PLASMA No comment entered. Ordering Provider: MACKENZIE COTTER Report Released Date/Time: July 18, 2022 05:40 PM Reporting Lab: [facility] [address] Performing Lab: [facility] [address] CREATININE 0.9 0.7-1.2 UREA NITROGEN 24 8-26 [...] PM Reporting Lab: [facility] [address] Performing Lab: [facility] [address] IRON 28 L 65-175 TIBC,CALCULATE D 223 L 250-425 FERRITIN 73.7 21.8-274.7 IRON SATURATION 13 L 20-50 TRANSFERRIN 178 163-382 July 19, 2022 07:13 AM [facility] CBC Specimen Type: BLOOD No comment entered. Ordering Provider: MACKENZIE COTTER Report Released Date/Time: July 18, 2022 05:40 PM Reporting Lab: [facility] [address] Performing Lab: [facility] [address] WBC 7.73 4.0-11.0 RBC 2.42 L 4.6-6.2 [...] AM Reporting Lab: [facility] [address] Performing Lab: [facility] [address] FINGERSTICK GLUCOSE 137 70-100 July 18, 2022 10:51 PM [facility] FINGERSTICK GLUCOSE Specimen Type: BLOOD Comment: Save Result Nurse Notified Ordering Provider: MACKENZIE COTTER Report Released Date/Time: July 18, 2022 11:06 PM Reporting Lab: [facility] [address] Performing Lab: [facility] [address] FINGERSTICK GLUCOSE 163 70-100 July 17, 2022 06:51 AM [facility] BASIC METABOLIC PANEL+MG Specimen Type: PLASMA No comment entered. Ordering Provider: DANG VALLE R Report Released Date/Time: July 16, 2022 09:37 AM Reporting Lab: [facility] [address] Performing Lab: [facility] [address] CREATININE 0.8 0.7-1.2 UREA NITROGEN 23 8-26 [...] AM Reporting Lab: [facility] [address] Performing Lab: [place] [id number] .INR 1.0 0.8-1.1 .PT 11.5 9.4-12.5 July 17, 2022 06:51 AM [facility] CBC Specimen Type: BLOOD No comment entered. Ordering Provider: DANG VALLE R Report Released Date/Time: July 16, 2022 09:37 AM Reporting Lab: [facility] [address] Performing Lab: [facility] [address] WBC 6.05 4.0-11.0 RBC 3.77 L 4.6-6.2 [...] AM Reporting Lab: [facility] [address] Performing Lab: [facility] [address] COVID-19 (CEPHEID) Not Detected Not Detected INFLUENZA A (PCR) Not Detected Not Detected INFLUENZA B (PCR) Not Detected Not Detected RSV (PCR) Not Detected Not Detected July 13, 2022 11:00 AM [facility] C-REACTIVE PROTEIN Specimen Type: SERUM Comment: Automated Differential Performed Ordering Provider: WHITNEY ANDERSON Report Released Date/Time: July 13, 2022 11:04 AM Reporting Lab: [facility] [address] Performing Lab: [facility] [address] C-REACTIVE PROTEIN 1.17 <5.00 July 13, 2022 11:00 AM [facility] PROTHROMBIN TIME/INR Specimen Type: PLASMA No comment entered. Ordering Provider: WHITNEY ANDERSON Report Released Date/Time: July 13, 2022 11:04 AM Reporting Lab: [facility] [address] Performing Lab: [facility] [address] .INR 0.9 0.8-1.1 .PT 11.1 9.4-12.5 July 13, 2022 11:00 AM [facility] SED RATE Specimen Type: BLOOD No comment entered. Ordering Provider: WHITNEY ANDERSON Report Released Date/Time: July 13, 2022 11:04 AM Reporting Lab: [facility] [address] Performing Lab: [facility] [address] SED RATE 10 5-15 July 13, 2022 11:00 AM [facility] CBC & DIFF Specimen Type: BLOOD Comment: Automated Differential Performed Ordering Provider: WHITNEY ANDERSON Report Released Date/Time: July 13, 2022 11:04 AM Reporting Lab: [facility] [address] Performing Lab: [facility] [address] WBC 8.82 4.0-11.0 RBC 3.89 L 4.6-6.2 [...] AM Reporting Lab: [facility] [address] Performing Lab: [facility] [address] CREATININE 1.0 0.7-1.2 UREA NITROGEN 16 8-26 [...] /min 114/69 mm[Hg] 92 % [facility] July 21, 2022 01:32 PM 68 /min 88 % [facility] July 21, 2022 01:31 PM 68 /min 89 % [facility] July 21, 2022 01:20 PM 68 /min 112/57 mm[Hg] 93 % [facility] July 21, 2022 01:19 PM 69 /min 89 % [facility] Social History: Smoking Status (Most current) and [...] Provider Source Mar 18, 2003 ADVANCE DIRECTIVE MELGARFARHATMITCH [facility] Radiology Reports: +/- 30 days of the [...] 07:50 AM CHEST 1 VIEW: MARYJO WAGNER [id number] -1950 M Exm Date: JULY 20, 2022@07:50 Req Phys: MACKENZIE COTTER Pat Loc: 07-20-2022@08:26 Img Loc: MAIN X-RAY Service: PRIMARY CARE - MED OFFICE (Case [id number] COMPLETE) CHEST 1 VIEW (RAD Detailed) CPT:12940 Proc Modifiers : PORTABLE EXAM Reason for Study: see below. thanks. Clinical History: IS NOT under investigation for COVID-19 or is COVID-19 negative Please further evaluate for acute airspace disease given o2 requirement. Thanks. Responsible provider name and phone number to notify for critical findings if other than user placing the order and pager listed below: User placing orders pager: [phone] same LAST CREATININE 0.9 (07/19/22) Report Status: Verified Date Reported: JULY 20, 2022 Date Verified: JULY 20, 2022 Cardiac Cath Rn E-Sig:/ES/JAMIE MIGUEL MD Report: EXAM: CHEST 1 [...] pager listed below: User placing orders pager: [phone] same LAST CREATININE 0. COMPARISON: Chest CT [...] Primary Interpreting Staff: JAMIE MIGUEL MD, RADIOLOGIST (Cardiac Cath Rn) /JAMIE FRANCES [facility] July 18, 2022 12:59 PM ELBOW LEFT 2 VIEWS: MARYJO WAGNER [id number] -1950 M Exm Date: JULY 18, 2022@12:59 Req Phys: LEIF BALBUENA Loc: OR-PACU/07-18-2022@13:59 Img Loc: MAIN X-RAY Service: ZZSURGICAL SERVICE (Case [id number] COMPLETE) ELBOW LEFT 2 VIEWS (RAD Detailed) CPT:72800 Proc Modifiers : PORTABLE EXAM, OPERATING ROOM EXAM Reason for Study: post-op Clinical History: post-op Report Status: Verified Date Reported: JULY 18, 2022 Date Verified: JULY 18, 2022 Cardiac Cath Rn E-Sig:/ES/JAKUB LEE MD Report: EXAM: ELBOW LEFT [...] Primary Interpreting Staff: JAKUB LEE MD, RADIOLOGIST (Cardiac Cath Rn) /JAKUB LUCERO [facility] July 18, 2022 07:30 AM FLUORO UP TO 1 HR PHYSICIAN TIME: MARYJO WAGNER [id number] -1950 M Exm Date: JULY 18, 2022@07:30 Req Phys: LEIF BALBUENA Loc: OR-PACU/07-18-2022@13:14 Im Loc: MAIN X-RAY Service: PRIMARY CARE - MED OFFICE (Case [id number] COMPLETE) FLUORO UP TO 1 HR PHYSICIAN TIME (RAD Detailed) CPT:42580 Proc Modifiers : PORTABLE EXAM, OPERATING ROOM EXAM, LEFT Reason for Study: Left distal humerous ORIF Clinical History: OR 7 Pathologic distal humeral shaft fracture Responsible provider name and phone number to notify for critical findings if other than user placing the order and pager listed below: User placing orders pager: Henry BALBUENA [phone] LAST CREATININE 0.8 (07/17/22) Report Status: Electronically Filed Date Reported: JULY 18, 2022 Report: Impression: Please see the full report for this procedure in [facility] patient progress notes. Fluoro guidance [...] 03:28 PM ABDOMINAL AORTOGRAM (P): MARYJO WAGNER DIRK [id number] -1950 M Exm Date: JULY 17, 2022@15:28 Req Phys: MALCOM LANGLEY Loc: 07-17-2022@15:54 Img Loc: INTERVENTIONAL RADIOLOGY Service: PRIMARY CARE - MED OFFICE (Case [id number] COMPLETE) ANGIOGRAPHY EXTREMITY UNILAT S&I (ANI Detailed) CPT:72489 Reason for Study: codes (Case 528 COMPLETE) IR AORTOGRAPHY ABDOMINAL W/O RUNO(ANI Detailed) CPT:61750 (Case 529 COMPLETE) IR FOREIGN BODY REMOVAL INTRAVASC(ANI Detailed) CPT:92428 (Case 532 COMPLETE) IR NEEDLE/INTRACATH PLACEMENT EXT(ANI Detailed) CPT:59662 (Case 533 COMPLETE) IR PLACEMENT OCCLUSIVE DEVICE SAM(ANI Detailed) CPT:G0269 Clinical History: codes Report Status: Verified Date Reported: JULY 17, 2022 Date Verified: JULY 17, 2022 Cardiac Cath Rn E-Sig:/ES/MALCOM LANGLEY MD Report: RADIOLOGIST: Malcom Langley [...] angiogram and runoff. 12. Closure of right ELECTROMEDICAL EQUIPMENT TECHNICIAN with Angio-Seal device. HISTORY: Metastatic renal [...] into the left brachial artery. The 5 Barbadian sheath was exchanged for a 6 Barbadian sheath that was advanced into the left [...] arteries. Sheath and catheters were removed and ELECTROMEDICAL EQUIPMENT TECHNICIAN arteriotomy was closed using Angioseal. There is patent hemostasis. No bleeding or hematoma noted. Sterile dressing applied. 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 12. Closure of right ELECTROMEDICAL EQUIPMENT TECHNICIAN with Angio-Seal device. HISTORY: Metastatic renal [...] into the left brachial artery. The 5 Barbadian sheath was exchanged for a 6 Barbadian sheath that was advanced into the left [...] arteries. Sheath and catheters were removed and ELECTROMEDICAL EQUIPMENT TECHNICIAN arteriotomy was closed using Angioseal. There is patent hemostasis. No bleeding or hematoma noted. Sterile dressing applied. 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 Primary Interpreting Staff: MALCOM LANGLEY MD, INTERVENTIONAL RADIOLOGIST (Cardiac Cath Rn) /MALCOM HE [facility] July 14, 2022 06:44 AM HUMERUS LEFT MINIMUM 2 VIEWS: MARYJO WAGNER [id number] -1950 M Exm Date: JULY 14, 2022@06:44 Req Phys: PEDROHERBERTJAIRO Pat Loc: 07-14-2022@07:13 Img Loc: MAIN X-RAY Service: PRIMARY CARE - MED OFFICE (Case [id number] COMPLETE) HUMERUS LEFT MINIMUM 2 VIEWS (RAD Detailed) CPT:99360 Reason for Study: post reduction Clinical History: Report Status: Verified Date Reported: JULY 14, 2022 Date Verified: JULY 14, 2022 Cardiac Cath Rn E-Sig: Report: HUMERUS LEFT MINIMUM 2 VIEWS [...] less likely. READING PHYSICIAN: Xavier Merrill MD -[id number] 07/14/2022 5:11 [facility] National Teleradiology Program [phone] (For Medical Practitioner Use Only) Attention Patients / Veterans: If you have questions or concerns about these test results, please contact your ordering provider or primary care team. Primary Interpreting Staff: RADIOLOGY,OUTSIDE SERVICE, Staff Physician / RADIOLOGY,OUTSIDE SERVICE [facility] July 13, 2022 10:07 AM HUMERUS LEFT MINIMUM 2 VIEWS: MARYJO WAGNER [id number] -1950 M Exm Date: JULY 13, 2022@10:07 Req Phys: WHITNEY ANDERSON Loc: [facility] EMERGENCY DEPT WALK-IN (Re Img Loc: MAIN X-RAY Service: Unknown (Case [id number] COMPLETE) HUMERUS LEFT MINIMUM 2 VIEWS (RAD Detailed) CPT:65261 Proc Modifiers : LEFT Reason for Study: [...] pager listed below: User placing orders pager: [phone] LAST CREATININE 0.8 (05/10/22) Report Status: Verified Date Reported: JULY 13, 2022 Date Verified: JULY 13, 2022 Cardiac Cath Rn E-Sig:/ES/ALBINA COWAN MD, FACR, CCD Report: EXAMINATION: [...] Staff: ALBINA COWAN MD, FACR, STAFF RADIOLOGIST (Cardiac Cath Rn) /BSF ALBINA COWAN [facility] July 13, 2022 10:07 AM ELBOW LEFT 3 OR MORE VIEWS: MARYJO WAGNER [id number] -1950 M Exm Date: JULY 13, 2022@10:07 Req Phys: WHITNEY ANDERSON Pat Loc: [facility] EMERGENCY DEPT WALK-IN (Re Img Loc: MAIN X-RAY Service: Unknown (Case [id number] COMPLETE) ELBOW LEFT 3 OR MORE VIEWS (RAD Detailed) CPT:43134 Proc Modifiers : LEFT Reason for Study: [...] pager listed below: User placing orders pager: [phone] LAST CREATININE 0.8 (05/10/22) Report Status: Verified Date Reported: JULY 13, 2022 Date Verified: JULY 13, 2022 Cardiac Cath Rn E-Sig:/ES/ALBINA COWAN MD, FACR, CCD Report: EXAMINATION: [...] Staff: ALBINA COWAN MD, FACR, STAFF RADIOLOGIST (Cardiac Cath Rn) /BSF ALBINA COWAN [facility] July 13, 2022 10:07 AM FOREARM LEFT 2 VIEWS: MARYJO WAGNER [id number] -1950 M Exm Date: JULY 13, 2022@10:07 Req Phys: WHITNEY ANDERSON Pat Loc: [facility] EMERGENCY DEPT WALK-IN (Re Img Loc: MAIN X-RAY Service: Unknown (Case [id number] COMPLETE) FOREARM LEFT 2 VIEWS (RAD Detailed) CPT:15911 Proc Modifiers : LEFT Reason for Study: [...] pager listed below: User placing orders pager: [phone] LAST CREATININE 0.8 (05/10/22) Report Status: Verified Date Reported: JULY 13, 2022 Date Verified: JULY 13, 2022 Cardiac Cath Rn E-Sig:/ES/ALBINA COWAN MD, FACR, CCD Report: EXAMINATION: [...] Staff: ALBINA COWAN MD, FACR, STAFF RADIOLOGIST (Cardiac Cath Rn) /BSF ALBINA COWAN [facility] Pathology Reports: +/- 30 [...] $APHDR Reporting Lab: [facility] [CLIA# [id number]] [place] [address] - - - - - - - [...] SANDOVAL STAFF PATHOLOGIST, PATHOLOGY & LABORATORY [facility] Signed July 21, 2022@14:37 Performing Laboratory: Surgical Pathology Report Performed By: [facility] [CLIA# [id number]] [place] [address] $FTR - - - - - - [...] - - MARYJO WAGNER STANDARD FORM 515 ID:[id number] SEX:M :1950 AGE: 72 LOC:[facility] PATHOLOGY PRO FEE ADM:June DX:PATHOLOGIC FX LF HUMERUS PCP: Leif Balbuena MD /sangita/ JIAN SANDOVAL STAFF PATHOLOGIST, PATHOLOGY & LABORATORY [facility] Signed: 07/21/2022 14:37 JIAN SANDOVAL [facility] Encounter Notes: All associated encounter notes This section contains the clinical notes associated to the Encounter. Date/Time Encounter Note(s) Provider Source July 21, 2022 03:21 PM ANESTHESIOLOGY NOT E: LOCAL TITLE: ANESTHESIA PROGRESS NOTE STANDARD TITLE: ANESTHESIOLOGY NOTE DATE OF NOTE: JULY 21, 2022@15:21 ENTRY DATE: JULY 21, 2022@15:21:11 AUTHOR: CHARLES ABARCA COSIGNER: URGENCY: STATUS: COMPLETED Acute Regional Pain Service Note JULY 21, 2022 Inpatient post-operative rounding note following continuous left infraclavicular brachial plexus (ICBP) block placement with single lumen On-Q pump on 07/18/2022 for open reduction internal fixation of his left pathologic distal humerus fracture with tumor excision and cement augmentation on 07/18/[address] Balbuena Subjective: The patient rates his current pain at 0/10 at rest and worst pain the last 24 hours at 4/10. Patient denies tinnitus, dysgeusia and perioral numbness. Patient denies fevers. Pain controlled on infrclavicular brachial plexus catheter. Working with PT. Objective: VSS. Awake, alert, no acute distress. Regular pulse. No edema, erythema, warmth or tenderness at the sites of catheter insertion. Dressing c/d/i, no signs of infection. Able to move all fingers. ICBP catheter connections intact, unclamped, infusing at 10 ml/hr. Vitals: BP:114/69 (07/21/2022 13:35) Temp:98.2 F [36.8 C] (07/21/2022 11:26) Pulse:66 (07/21/2022 13:35) SpO2:92% (07/21/2022 13:35) RR:21 (07/21/2022 11:26) Labs: WBC 7.73 (07/19/22) HCT 23.8 L (07/19/22) HGB 8.2 L (07/19/22) PLT 155 (07/19/22) INR 1.0 (07/17/22) APTT____ PT 11.5 (07/17/22) SODIUM 136 (07/19/22) POTASSIUM 4.1 (07/19/22) CHLORIDE 104 (07/19/22) CO2 28 (07/19/22) CREATININE 0.9 (07/19/22) UREA NITROGEN 24 (07/19/22) GLUCOSE 129 H (07/19/22) CALCIUM 8.0 L (07/19/22) MAGNESIUM 1.8 (07/19/22) ANION GAP 4 L (07/19/22) EGFR (09/29) 03/17/20 @ 0904 111 CREATININE EGFR (CKD-EPI) 07/19/22 @ 0530 90 INPT MEDICATIONS:NONE A/P: MARYJO WAGNER is POD 3 s/p open reduction internal fixation of his left pathologic distal humerus fracture with tumor excision and cement augmentation on 07/18/[address] Balbuena with continuous L ICBP catheter placement on 07/18/2022 with single lumen On-Q pump with adequate pain control. No signs of local anesthetic systemic toxicity, bleeding, infection or other complications. We discussed the patient going home with catheter with daily follow up from home versus bolusing before removing the catheter today before his planned discharge. The patient and his opted for bolusing and removal as his did not feel comfortable with daily evaluation of the catheter. We administered 20 ml of 0.5% ropivacaine with 4 mg of dexamethasone and removed the catheter with the tip intact (1230 hours). The anesthesia service will be following with Lexi (spouse) at the provided number. Thank you for allowing us to be involved in the care of the patient. /sangita/ CHARLES ABARCA MD ANESTHESIOLOGIST Signed: 07/21/2022 19:11 Receipt Acknowledged By: * AWAITING SIGNATURE * ALEIDA WILKES * AWAITING SIGNATURE * CORDELL MOYA JORGE E [facility]
--- OUTSIDE RECORDS SUMMARY | 2023-03-24 08:51 | XMS_ITS | Encounter Summary ---
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 [facility] Organization Department of [facility] Address [address] [place] [address] Support Name Relationship Address Phone DOREEN WAGNER Next of Kin [address] [place] [phone] DOREEN Emergency Contact [address] [place] [phone] Insurance Providers: All historical and current [...] Name Patient's Relationship to Policy Casey HUMANA [facility] (WNR) MEDICARE [facility] ([facility]) June 26, 2016 [id number] CARSONJOAN ROWELL PATIENT HUMANA MCR (WNR) MEDICARE ADVANTAGE [facility] ([facility]) June 26, 2016 [id number] JOAN WAGNER KARSTEN PATIENT HUMANA MCR (WNR) MEDICARE ADVANTAGE [facility] (R) June 26, 2016 [id number] JOAN WAGNER KARSTEN PATIENT Selected Encounter This section includes the information on record at [facility] for the Encounter. Date/Time Encounter Type Encounter Description Reason Pro vider Source July 21, 2022 01:00 AM Inpatient Visit ADMIN Currently ([facility]) SYSTEM,[facility] Encounter Template Text not used [...] 20 appointments. The data comes from all [facility]. Appointment Date/Time Appointment Type Appointme nt Facility Name Jul 28, 2022 10:45 AM [facility] Aug 13, 2022 06:13 PM [facility] Aug 23, 2022 09:30 AM AMBULATORY - SURGERY [facility] Aug 23, 2022 09:45 AM [facility]ONE [facility] Aug 23, 2022 10:30 AM AMBULATORY - MEDICINE [facility] Aug 23, 2022 10:31 AM AMBULATORY - MEDICINE [facility] Sep 06, 2022 10:15 AM AMBULATORY - SURGERY [facility] Oct 25, 2022 07:00 AM [facility] Oct 25, 2022 07:30 AM AMBULATORY - SURGERY [facility] Oct 25, 2022 09:00 AM AMBULATORY - SURGERY [facility] Active, Pending, and Scheduled Orders This section includes a listing of several types of active, pending, and scheduled orders, including clinic medications orders, diagnostic test orders, procedure orders and consult orders; where the start date of the order is 45 days before the date of the Encounter or 45 days after the date of theEncounter. The data comes from all [facility]. Test Date/Time Test Type Test Details Facility Name Jun 12, 2022 12:00 AM Laboratory - Chemistry Order CBC & DIFF BLOOD ONCO SP ONCE [facility] Jun 12, 2022 12:00 AM Laboratory - Chemistry Order COMPREHENSIVE METABOLIC PANEL+MG PLASMA ONCO SP ONCE [facility] Jun 12, 2022 12:00 AM Laboratory - Chemistry Order TSH W/REFLEX TO FREE T4 PLASMA ONCO SP ONCE [facility] July 14, 2022 12:00 AM Laboratory - Blood Bank Order ABO/RH - LAB BLOOD [facility] July 14, 2022 02:05 PM Laboratory - Blood Bank Order TYPE & SCREEN - LAB BLOOD [facility] Aug 07, 2022 11:23 AM Laboratory - Chemistry Order DRUG SCREEN PANEL,URINE URINE ONCE [facility] Aug 23, 2022 10:47 AM Laboratory - Chemistry Order URINALYSIS URINE ER STAT WC [facility] Lab Results: +/- 30 [...] Range Comment July 19, 2022 04:40 PM [facility] FINGERSTICK GLUCOSE Specimen Type: BLOOD Comment: Save Result Nurse Notified Ordering Provider: MACKENZIE COTTER Report Released Date/Time: July 19, 2022 05:00 PM Reporting Lab: [facility] [address] Performing Lab: [facility] [address] FINGERSTICK GLUCOSE 132 70-100 July 19, 2022 07:13 AM [facility] COMPREHENSIVE METABOLIC PANEL+MG Specimen Type: PLASMA No comment entered. Ordering Provider: MACKENZIE COTTER Report Released Date/Time: July 18, 2022 05:40 PM Reporting Lab: [facility] [address] Performing Lab: [facility] [address] CREATININE 0.9 0.7-1.2 UREA NITROGEN 24 8-26 [...] See_Commen t July 19, 2022 07:13 AM [facility] IRON GROUP Specimen Type: SERUM No comment entered. Ordering Provider: MACKENZIE COTTER Report Released Date/Time: July 18, 2022 05:40 PM Reporting Lab: [facility] [address] Performing Lab: [facility] [address] IRON 28 L 65-175 TIBC,CALCULATE D 223 L 250-425 FERRITIN 73.7 21.8-274.7 IRON SATURATION 13 L 20-50 TRANSFERRIN 178 163-382 July 19, 2022 07:13 AM [facility] CBC Specimen Type: BLOOD No comment entered. Ordering Provider: MACKENZIE COTTER Report Released Date/Time: July 18, 2022 05:40 PM Reporting Lab: [facility] [address] Performing Lab: [facility] [address] WBC 7.73 4.0-11.0 RBC 2.42 L 4.6-6.2 HGB 8.2 L 13.5-17.9 HCT 23.8 L 41-54 MCV 98.3 80-100 MCH 33.9 H 27-33 MCHC 34.5 32.0-37.5 PLT 155 150-400 MPV 9.6 7.4-10.4 RDW 13.5 11.5-14.5 July 19, 2022 05:44 AM [facility] FINGERSTICK GLUCOSE Specimen Type: BLOOD Comment: Save Result Nurse Notified Ordering Provider: MACKENZIE COTTER Report Released Date/Time: July 19, 2022 11:54 AM Reporting Lab: [facility] [address] Performing Lab: [facility] [address] FINGERSTICK GLUCOSE 137 70-100 July 18, 2022 10:51 PM [facility] FINGERSTICK GLUCOSE Specimen Type: BLOOD Comment: Save Result Nurse Notified Ordering Provider: MACKENZIE COTTER Report Released Date/Time: July 18, 2022 11:06 PM Reporting Lab: [facility] [address] Performing Lab: [facility] [address] FINGERSTICK GLUCOSE 163 70-100 July 17, 2022 06:51 AM [facility] BASIC METABOLIC PANEL+MG Specimen Type: PLASMA No comment entered. Ordering Provider: DANG VALLE Report Released Date/Time: July 16, 2022 09:37 AM Reporting Lab: [facility] [address] Performing Lab: [facility] [address] CREATININE 0.8 0.7-1.2 UREA NITROGEN 23 8-26 GLUCOSE 107 H 70-100 SODIUM 139 136-145 POTASSIUM 3.9 3.5-5.1 CHLORIDE 106 98-107 CO2 28 22-29 CALCIUM 9.1 8.4-10.2 MAGNESIUM 1.9 1.6-2.6 ANION GAP 5 5-15 .CREAT EGFR(CKD-EPI) >90 See_Commen t July 17, 2022 06:51 AM [facility] PROTHROMBIN TIME/INR Specimen Type: PLASMA No comment entered. Ordering Provider: DANG VALLE R Report Released Date/Time: July 16, 2022 09:37 AM Reporting Lab: [facility] [address] Performing Lab: [facility] [address] .INR 1.0 0.8-1.1 .PT 11.5 9.4-12.5 July 17, 2022 06:51 AM [facility] CBC Specimen Type: BLOOD No comment entered. Ordering Provider: DANG VALLE R Report Released Date/Time: July 16, 2022 09:37 AM Reporting Lab: [facility] [address] Performing Lab: [facility] [address] WBC 6.05 4.0-11.0 RBC 3.77 L 4.6-6.2 HGB 12.7 L 13.5-17.9 HCT 36.0 L 41-54 MCV 95.5 80-100 MCH 33.7 H 27-33 MCHC 35.3 32.0-37.5 PLT 179 150-400 MPV 9.4 7.4-10.4 RDW 13.2 11.5-14.5 July 13, 2022 11:22 AM [facility] COVID-19 AND FLU/RSV DIAG PANEL(CEPHEID) Specimen Typ e: NASOPHARYNGEAL Comment: Cepheid GeneXpert (618) Ordering Provider: WHITNEY ANDERSON Report Released Date/Time: July 13, 2022 11:04 AM Reporting Lab: [facility] [address] Performing Lab: [facility] [address] COVID-19 (CEPHEID) Not Detected Not Detected INFLUENZA A (PCR) Not Detected Not Detected INFLUENZA B (PCR) Not Detected Not Detected RSV (PCR) Not Detected Not Detected July 13, 2022 11:00 AM [facility] C-REACTIVE PROTEIN Specimen Type: SERUM Comment: Automated Differential Performed Ordering Provider: WHITNEY ANDERSON Report Released Date/Time: July 13, 2022 11:04 AM Reporting Lab: [facility] [address] Performing Lab: [facility] [address] C-REACTIVE PROTEIN 1.17 <5.00 July 13, 2022 11:00 AM [facility] PROTHROMBIN TIME/INR Specimen Type: PLASMA No comment entered. Ordering Provider: WHITNEY ANDERSON Report Released Date/Time: July 13, 2022 11:04 AM Reporting Lab: [facility] [address] Performing Lab: [facility] [address] .INR 0.9 0.8-1.1 .PT 11.1 9.4-12.5 July 13, 2022 11:00 AM [facility] SED RATE Specimen Type: BLOOD No comment entered. Ordering Provider: WHITNEY ANDERSON Report Released Date/Time: July 13, 2022 11:04 AM Reporting Lab: [facility] [address] Performing Lab: [facility] [address] SED RATE 10 5-15 July 13, 2022 11:00 AM [facility] COMPREHENSIVE METABOLIC PANEL+MG Specimen Type: PLASMA Comment: Automated Differential Performed Ordering Provider: WHITNEY ANDERSON Report Released Date/Time: July 13, 2022 11:04 AM Reporting Lab: [facility] [address] Performing Lab: [facility] [address] CREATININE 1.0 0.7-1.2 UREA NITROGEN 16 8-26 GLUCOSE 129 H 70-100 SODIUM 139 136-145 POTASSIUM 4.3 3.5-5.1 CHLORIDE 106 98-107 CO2 26 22-29 CALCIUM 9.2 8.4-10.2 PROTEIN,TOTAL 6.8 6.0-8.3 ALBUMIN 3.9 3.5-5.2 BILIRUBIN, TOTAL 1.2 0.2-1.2 MAGNESIUM 2.2 1.6-2.6 ANION GAP 7 5-15 ALKALINE PHOSPHATASE 73 40-150 ALT/SGPT 17 <55 AST/SGOT 18 <34 .CREAT EGFR(CKD-EPI) 79 >60 July 13, 2022 11:00 AM [facility] CBC & DIFF Specimen Type: BLOOD Comment: Automated Differential Performed Ordering Provider: WHITNEY ANDERSON Report Released Date/Time: July 13, 2022 11:04 AM Reporting Lab: [facility] [address] Performing Lab: [facility] [address] WBC 8.82 4.0-11.0 RBC 3.89 L 4.6-6.2 [...] PM 66 /min 114/69 mm[Hg] 92 % [facility] July 21, 2022 01:32 PM 68 /min 88 % [facility] July 21, 2022 01:31 PM 68 /min 89 % [facility] July 21, 2022 01:20 PM 68 /min 112/57 mm[Hg] 93 % [facility] July 21, 2022 01:19 PM 69 /min 89 % [facility] Social History: Smoking Status (Most [...] AM VA-TOBACCO QUIT 15 YRS OR MORE [facility] Tobacco Use History This section includes a history of the smoking, or tobacco-related health factors, that were collected on or before the date of the Encounter. The data comes from the [facility] facility where the Encounter took place. Date/Time Smoking Status/Tobacco Use Comment F acility May 10, 2022 09:15 AM VA-TOBACCO QUIT 15 YRS OR MORE [facility] May 11, 2021 09:15 AM VA-TOBACCO FORMER USER [facility] May 11, 2021 09:15 AM VA-TOBACCO QUIT 15 YRS OR MORE [facility] Nov 22, 2018 01:36 PM VA-TOBACCO NEVER USED [facility] Nov 12, 2017 07:35 AM FORMER TOBACCO USER 7Y OR GREATE R [facility] Nov 06, 2016 09:05 AM FORMER TOBACCO USER 7Y OR GREATE R [facility] Sep 27, 2015 09:42 AM FORMER TOBACCO USER 7Y OR GREATE R [facility] Sep 25, 2014 07:55 AM FORMER TOBACCO USER 7Y OR GREATE R [facility] Sep 08, 2013 07:48 AM FORMER TOBACCO USER 7Y OR GREATE R [facility] July 09, 2012 09:20 AM FORMER TOBACCO USE >1Y <7Y [facility] Jun 06, 2011 07:53 AM FORMER TOBACCO USE >1Y <7Y [facility] Sep 09, 2009 03:03 PM FORMER TOBACCO USE >1Y <7Y [facility] Aug 11, 2008 01:06 PM FORMER TOBACCO USE <1Y [facility] Sep 19, 2007 02:52 PM CURRENT TOBACCO USER [facility] Sep 03, 2006 03:32 PM CURRENT TOBACCO USER [facility] Advance Directives: All historical and current Section Date Range: From patient's date of to the date document was created. This section includes ALL of a patient's completed or amended [place] Advance and Rescinded Directives. The entries below indicate that a directive exists for the patient, but an actual copy is not included with this document. The data comes from all [facility]. Date Advance Directives Provider Source Mar 18, 2003 ADVANCE DIRECTIVE FARHAT MELGAR [facility] Radiology Reports: +/- [...] 07:50 AM CHEST 1 VIEW: MARYJO WAGNER [id number] -1950 M Exm Date: JULY 20, 2022@07:50 Req Phys: MACKENZIE COTTER Pat Loc: 07-20-2022@08:26 Img Loc: MAIN X-RAY Service: PRIMARY CARE - MED OFFICE (Case [id number] COMPLETE) CHEST 1 VIEW (RAD Detailed) CPT:80352 Proc Modifiers : PORTABLE EXAM Reason for Study: see below. thanks. Clinical History: IS NOT under investigation for COVID-19 or is COVID-19 negative Please further evaluate for acute airspace disease given o2 requirement. Thanks. Responsible provider name and phone number to notify for critical findings if other than user placing the order and pager listed below: User placing orders pager: [phone] same LAST CREATININE 0.9 (07/19/22) Report Status: Verified Date Reported: JULY 20, 2022 Date Verified: JULY 20, 2022 Silo Operator E-Sig:/ES/JAMIE MIGUEL MD Report: EXAM: CHEST 1 VIEW HISTORY: see below. thanks. Reason for Study: see below. thanks. [place] IS NOT under investigation for COVID-19 or is COVID-19 negative Please further evaluate for acute airspace disease given o2 requirement. Thanks. Responsible provider name and phone number to notify for critical findings if other than user placing the order and pager listed below: User placing orders pager: [phone] same LAST CREATININE 0. COMPARISON: Chest CT [...] Primary Interpreting Staff: JAMIE MIGUEL MD, RADIOLOGIST (Silo Operator) /JAMIE FRANCES [facility] July 18, 2022 12:59 PM ELBOW LEFT 2 VIEWS: MARYJO WAGNER [id number] -1950 M Exm Date: JULY 18, 2022@12:59 Req Phys: LEIF BALBUENA Loc: OR-PACU/07-18-2022@13:59 Img Loc: MAIN X-RAY Service: ZZSURGICAL SERVICE (Case [id number] COMPLETE) ELBOW LEFT 2 VIEWS (RAD Detailed) CPT:52726 Proc Modifiers : PORTABLE EXAM, OPERATING ROOM EXAM Reason for Study: post-op Clinical History: post-op Report Status: Verified Date Reported: JULY 18, 2022 Date Verified: JULY 18, 2022 Silo Operator E-Sig:/ES/JAKUB LEE MD Report: EXAM: ELBOW [...] Primary Interpreting Staff: JAKUB LEE MD, RADIOLOGIST (Silo Operator) /JAKUB LUCERO [facility] July 18, 2022 07:30 AM FLUORO UP TO 1 HR PHYSICIAN TIME: MARYJO WAGNER [id number] -1950 M Exm Date: JULY 18, 2022@07:30 Req Phys: LEIF BALBUENA Loc: OR-PACU/07-18-2022@13:14 Img Loc: MAIN X-RAY Service: PRIMARY CARE - MED OFFICE (Case [id number] COMPLETE) FLUORO UP TO 1 HR PHYSICIAN TIME (RAD Detailed) CPT:53860 Proc Modifiers : PORTABLE EXAM, OPERATING ROOM EXAM, LEFT Reason for Study: Left distal humerous ORIF Clinical History: OR 7 Pathologic distal humeral shaft fracture Responsible provider name and phone number to notify for critical findings if other than user placing the order and pager listed below: User placing orders pager: Henry BALBUENA [phone] LAST CREATININE 0.8 (07/17/22) Report Status: Electronically Filed Date Reported: JULY 18, 2022 Report: Impression: Please see the full report for this procedure in [facility] patient progress notes. Fluoro guidance was provided during this procedure, but the study was not reviewed or verified by a [facility] radiologist. The radiation exposure dose has been recorded in the patient's chart. If you are unable to view this data, please contact the Imaging Department. VERIFIED BY: / *ELECTRONICALLY FILED* [facility] July 17, 2022 03:28 PM ABDOMINAL AORTOGRAM (P): CARSONLELIAMARYJO CAVAZOS [id number] -1950 M Exm Date: JULY 17, 2022@15:28 Req Phys: MALCOM LANGLEY [facility] Loc: 07-17-2022@15:54 Img Loc: INTERVENTIONAL RADIOLOGY Service: PRIMARY CARE - MED OFFICE (Case [id number] COMPLETE) ANGIOGRAPHY EXTREMITY UNILAT S&I (ANI Detailed) CPT:61091 Reason for Study: codes (Case 528 COMPLETE) IR AORTOGRAPHY ABDOMINAL W/O RUNO(ANI Detailed) CPT:99129 (Case 529 COMPLETE) IR FOREIGN BODY REMOVAL INTRAVASC(ANI Detailed) CPT:82099 (Case 532 COMPLETE) IR NEEDLE/INTRACATH PLACEMENT EXT(ANI Detailed) CPT:11777 (Case 533 COMPLETE) IR PLACEMENT OCCLUSIVE DEVICE SAM(ANI Detailed) CPT:G0269 Clinical History: codes Report Status: Verified Date Reported: JULY 17, 2022 Date Verified: JULY 17, 2022 Silo Operator E-Sig:/ES/MALCOM LANGLEY MD Report: RADIOLOGIST: Malcom [...] angiogram and runoff. 12. Closure of right PLASTIC SURGERY NURSE with Angio-Seal device. HISTORY: Metastatic renal [...] into the left brachial artery. The 5 Libyan sheath was exchanged for a 6 Libyan sheath that was advanced into the left [...] arteries. Sheath and catheters were removed and PLASTIC SURGERY NURSE arteriotomy was closed using Angioseal. There is patent hemostasis. No bleeding or hematoma noted. Sterile dressing applied. 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 12. Closure of right PLASTIC SURGERY NURSE with Angio-Seal device. HISTORY: Metastatic renal [...] into the left brachial artery. The 5 Libyan sheath was exchanged for a 6 Libyan sheath that was advanced into the left [...] arteries. Sheath and catheters were removed and PLASTIC SURGERY NURSE arteriotomy was closed using Angioseal. There is patent hemostasis. No bleeding or hematoma noted. Sterile dressing applied. 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 Primary Interpreting Staff: MALCOM LANGLEY MD, INTERVENTIONAL RADIOLOGIST (Silo Operator) /MALCOM HE [facility] July 14, 2022 06:44 AM HUMERUS LEFT MINIMUM 2 VIEWS: MARYJO WAGNER [id number] -1950 M Exm Date: JULY 14, 2022@06:44 Req Phys: WESTON VASQUEZ [facility] Loc: 07-14-2022@07:13 Img Loc: MAIN X-RAY Service: PRIMARY CARE - MED OFFICE (Case [id number] COMPLETE) HUMERUS LEFT MINIMUM 2 VIEWS (RAD Detailed) CPT:53427 Reason for Study: post reduction Clinical History: Report Status: Verified Date Reported: JULY 14, 2022 Date Verified: JULY 14, 2022 Silo Operator E-Sig: Report: HUMERUS LEFT MINIMUM 2 [...] less likely. READING PHYSICIAN: Xavier Merrill MD -[phone] 07/14/2022 5:11 PDT [facility] National Teleradiology Program [phone] (For Medical Practitioner Use Only) Attention Patients / Veterans: If you have questions or concerns about these test results, please contact your ordering provider or primary care team. Primary Interpreting Staff: RADIOLOGY,OUTSIDE SERVICE, Staff Physician / RADIOLOGY,OUTSIDE SERVICE [facility] July 13, 2022 10:07 AM ELBOW LEFT 3 OR MORE VIEWS: MARYJO WAGNER [id number] -1950 M Ex Date: JULY 13, 2022@10:07 Req Phys: WHITNEY ANDERSON Pat Loc: [facility] EMERGENCY DEPT WALK-IN (Re Img Loc: MAIN X-RAY Service: Unknown (Case [id number] COMPLETE) ELBOW LEFT 3 OR MORE VIEWS (RAD Detailed) CPT:59663 Proc Modifiers : LEFT Reason for Study: [...] pager listed below: User placing orders pager: [phone] LAST CREATININE 0.8 (05/10/22) Report Status: Verified Date Reported: JULY 13, 2022 Date Verified: JULY 13, 2022 Silo Operator E-Sig:/ES/ALBINA COWAN MD, FACR, CCD Report: [...] Staff: ALBINA COWAN MD, FACR, STAFF RADIOLOGIST (Silo Operator) /BSF ALBINA COWAN [facility] July 13, 2022 10:07 AM HUMERUS LEFT MINIMUM 2 VIEWS: MARYJO WAGNER [id number] -1950 M Exm Date: JULY 13, 2022@10:07 Req Phys: WHITNEY ANDERSON Pat Loc: [facility] EMERGENCY DEPT WALK-IN (Re Img Loc: MAIN X-RAY Service: Unknown (Case [id number] COMPLETE) HUMERUS LEFT MINIMUM 2 VIEWS (RAD Detailed) CPT:56882 Proc Modifiers : LEFT Reason for Study: L arm pain Clinical History: [place] IS NOT under investigation for COVID-19 or is COVID-19 negative Atraumatic left upper extremity pain that is located midshaft humerus distally to the mid forearm. Clinical concern for dislocation versus fracture versus bone mets Responsible provider name and phone number to notify for critical findings if other than user placing the order and pager listed below: User placing orders pager: [phone] LAST CREATININE 0.8 (05/10/22) Report Status: Verified Date Reported: JULY 13, 2022 Date Verified: JULY 13, 2022 Silo Operator E-Sig:/ES/ALBINA COWAN MD, FACR, CCD Report: [...] Staff: ALBINA COWAN MD, FACR, STAFF RADIOLOGIST (Silo Operator) /ALBINA NATHAN [facility] July 13, 2022 10:07 AM FOREARM LEFT 2 VIEWS: MARYJO WAGNER [id number] -1950 M Exm Date: JULY 13, 2022@10:07 Req Phys: WHITNEY ANDERSON Pat Loc: [facility] EMERGENCY DEPT WALK-IN ( Img Loc: MAIN X-RAY Service: Unknown (Case [id number] COMPLETE) FOREARM LEFT 2 VIEWS (RAD Detailed) CPT:48859 Proc Modifiers : LEFT Reason for Study: [...] pager listed below: User placing orders pager: [phone] LAST CREATININE 0.8 (05/10/22) Report Status: Verified Date Reported: JULY 13, 2022 Date Verified: JULY 13, 2022 Silo Operator E-Sig:/ES/ALBINA COWAN MD, FACR, CCD Report: [...] Staff: ALBINA COWAN MD, FACR, STAFF RADIOLOGIST (Silo Operator) /ALBINA NATHAN [facility] Pathology Reports: +/- 30 [...] COSIGNER: URGENCY: STATUS: COMPLETED $APHDR Reporting Lab: [facility] [CLIA# [id number]] [place] [address] - - - - - - - [...] SANDOVAL STAFF PATHOLOGIST, PATHOLOGY & LABORATORY MED [facility] Signed July 21, 2022@14:37 Performing Laboratory: Surgical Pathology Report Performed By: [facility] [CLIA# [id number]] [place] [address] $FTR - - - - - - - - - - - - - - - - - - - - - - - - - - - - - - - - - - - - - - - - (End of report) JIAN SANDOVAL MD [facility] Date July 21, 2022 - - - - - - - - - - - - - - - - - - - - - - - - - - - - - - - - - - - - - - - - MARYJO WAGNER STANDARD FORM 515 ID:[id number] SEX:M :1950 AGE: 72 LOC:[facility] PATHOLOGY PRO FEE ADM:June DX:PATHOLOGIC FX LF HUMERUS PCP: Leif Balbuena MD /sangita/ JIAN SANDOVAL STAFF PATHOLOGIST, PATHOLOGY & LABORATORY MED [facility] Signed: 07/21/2022 14:37 JIAN SANDOVAL [facility] Encounter Notes: All associated encounter notes This section contains the clinical notes associated to the Encounter. Date/Time Encounter Note(s) Provider Source July 21, 2022 01:00 AM CRITICAL CARE UNIT NOTE: LOCAL TITLE: ICCA INPATIENT FLOWSHEET STANDARD TITLE: CRITICAL CARE UNIT NOTE DATE OF NOTE: JULY 21, 2022@01:00 ENTRY DATE: JULY 22, 2022@14:39:07 AUTHOR: SYSTEM,CIS-JACQUELINEK EXP COSIGNER: URGENCY: STATUS: COMPLETED This is a place casey only. Please see [facility]IST[facility] Imaging to view document. /es/ Remotemedical SYSTEM ICU DOCUMENT IMPORT Signed: 07/22/2022 14:39 SYSTEM,Remotemedical [facility] July 21, 2022 01:00 AM CRITICAL CARE UNIT NOTE: LOCAL TITLE: [facility] RESPIRATORY THERAPY FLOWSHEET STANDARD TITLE: CRITICAL CARE UNIT NOTE DATE OF NOTE: JULY 21, 2022@01:00 ENTRY DATE: JULY 22, 2022@15:23:35 AUTHOR: JAZRemotemedical EXP COSIGNER: URGENCY: STATUS: COMPLETED This is a place casey only. Please see [email or web address] to view document. /es/ [facility] ICU DOCUMENT IMPORT Signed: 07/22/2022 15:23 SYSTEMRapportive [facility]
--- OUTSIDE RECORDS SUMMARY | 2023-03-24 08:51 | XMS_ITS | Encounter Summary ---
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 Address [address] [place] [address] Support Name Relationship Address Phone DOREEN WAGNER Next of Kin [address] [place] [phone] DOREEN Emergency Contact [address] [place] [phone] Insurance Providers: All historical and current [...] [place]'s Name Patient's Relationship to Policy [place] [facility] ([facility]) MEDICARE ADVANTAGE MCR ([facility]) June 26, 2016 [id number] JOAN WAGNER [facility] MEDICARE ADVANTAGE MCR ([facility]) June 26, 2016 [id number] JOAN WAGNER KARSTEN PATIENT [facility] ([facility]) MEDICARE ADVANTAGE MCR ([facility]) June 26, 2016 [id number] [phone] JOAN WAGNER PATIENT Selected Encounter This section includes the information on record at [place] for the Encounter. Date/Time Encounter Type Encounter Description Reason Provider Source July 22, 2022 04:54 PM OFF/OP EST JUNE X REQ PHY/QHP ANESTHESIA PRE/POST-OP CONSULT ICD-10-CM Z48.89 Encounter for other specified surgical aftercare TOMMY WILKES Encounter Template Text not used by [place] Assessments - Encounter Diagnoses This section includes the primary and secondary diagnoses documented for the Encounter. Date/Time Primary/Secondary Diagnosis Diagnosis Name Provider Source July 22, 2022 04:54 PM PRIMARY Encounter for other specified surgical aftercare TOMMY WILKES [facility] Plan of Treatment: Future Appointments (+ 6 months) and Future Tests (+/- 45 days) The Plan of Treatment section includes future care activities for the [facility] This section includes future appointments and [...] 28, 2022 10:45 AM AMBULATORY - MEDICINE [facility] Aug 13, 2022 06:13 PM AMBULATORY - MEDICINE [facility] Aug 23, 2022 09:30 AM AMBULATORY - SURGERY [facility] Aug 23, 2022 09:45 AM AMBULATORY - NONE [facility] Aug 23, 2022 10:30 AM AMBULATORY - MEDICINE [facility] Aug 23, 2022 10:31 AM AMBULATORY - MEDICINE [facility] Sep 06, 2022 10:15 AM AMBULATORY - SURGERY [facility] Oct 25, 2022 07:00 AM AMBULATORY - NONE [facility] Oct 25, 2022 07:30 AM AMBULATORY - SURGERY [facility] Oct 25, 2022 09:00 AM AMBULATORY SURGERY [facility] Active, Pending, and Scheduled Orders This section [...] CBC & DIFF BLOOD ONCO SP ONCE [facility] Jun 12, 2022 12:00 AM Laboratory - Chemistry Order COMPREHENSIVE METABOLIC PANEL+MG PLASMA ONCO SP ONCE [facility] Jun 12, 2022 12:00 AM Laboratory - Chemistry Order TSH W/REFLEX TO FREE T4 PLASMA ONCO SP ONCE [facility] July 14, 2022 12:00 AM Laboratory - Blood Bank Order ABO/RH - LAB BLOOD [facility] July 14, 2022 02:05 PM Laboratory - Blood Bank Order TYPE & SCREEN - LAB BLOOD [facility] Aug 07, 2022 11:23 AM Laboratory - Chemistry Order DRUG SCREEN PANEL,URINE URINE [facility] Aug 23, 2022 10:47 AM Laboratory - Chemistry Order URINALYSIS URINE ER STAT [facility] Lab Results: +/- 30 days of the encounter This section includes the Chemistry and Hematology Lab Results on record with [place] for the patient. Radiology Reports and Pathology Reports are provided separately, in subsequent sections. Lab Results This section contains the Chemistry/Hematology Results that were resulted 30 days before or 30 daysafter the date of the Encounter. Date/Time Source Result Type Result - Unit Interpretation Reference Range Comment July 19, 2022 04:40 PM [facility] FINGERSTICK GLUCOSE Specimen Type: BLOOD Comment: Save Result Nurse Notified Ordering Provider: MACKENZIE COTTER Report Released Date/Time: July 19, 2022 05:00 PM Reporting Lab: [facility] [address] Performing Lab: [facility] [address] FINGERSTICK GLUCOSE 132 70-100 July 19, 2022 07:13 AM [facility] COMPREHENSIVE METABOLIC PANEL+MG Specimen Type: PLASMA No comment entered. Ordering Provider: MACKENZIE COTTER Report Released Date/Time: July 18, 2022 05:40 PM Reporting Lab: [facility] [address] Performing Lab: [facility] [address] CREATININE 0.9 0.7-1.2 UREA NITROGEN 24 8-26 GLUCOSE 129 H 70-100 SODIUM 136 136-145 POTASSIUM 4.1 3.5-5.1 CHLORIDE 104 98-107 CO2 28 22-29 CALCIUM 8.0 L 8.4-10.2 PROTEIN,TOTAL 5.0 L 6.0-8.3 ALBUMIN 2.9 L 3.5-5.2 BILIRUBIN, TOTAL 1.0 0.2-1.2 MAGNESIUM 1.8 1.6-2.6 ANION GAP 4 L 5-15 ALKALINE PHOSPHATASE 49 40-150 ALT/SGPT 11 See_Commen t AST/SGOT 20 See_Commen t .CREAT EGFR(CKD-EPI) 90 See_Jana di July 19, 2022 07:13 AM [facility] IRON GROUP Specimen Type: SERUM No comment entered. Ordering Provider: MACKENZIE COTTER Report Released Date/Time: July 18, 2022 05:40 PM Reporting Lab: [facility] [address] Performing Lab: [facility] [address] IRON 28 L 65-175 TIBC,CALCULATE D 223 L 250-425 FERRITIN 73.7 21.8-274.7 IRON SATURATION 13 L 20-50 TRANSFERRIN 178 163-382 July 19, 2022 07:13 AM [facility] CBC Specimen Type: BLOOD No comment entered. Ordering Provider: MACKENZIE COTTER Report Released Date/Time: July 18, 2022 05:40 PM Reporting Lab: [facility] [address] Performing Lab: [facility] [address] WBC 7.73 4.0-11.0 RBC 2.42 L 4.6-6.2 HGB 8.2 L 13.5-17.9 HCT 23.8 L 41-54 MCV 98.3 80-100 MCH 33.9 H 27-33 MCHC 34.5 32.0-37.5 PLT 155 150-400 MPV 9.6 7.4-10.4 RDW 13.5 11.5-14.5 July 19, 2022 05:44 AM [facility] FINGERSTICK GLUCOSE Specimen Type: BLOOD Comment: Save Result Nurse Notified Ordering Provider: MACKENZIE COTTER Report Released Date/Time: July 19, 2022 11:54 AM Reporting Lab: [facility] [address] Performing Lab: [facility] [address] FINGERSTICK GLUCOSE 137 70-100 July 18, 2022 10:51 PM [facility] FINGERSTICK GLUCOSE Specimen Type: BLOOD Comment: Save Result Nurse Notified Ordering Provider: MACKENZIE COTTER Report Released Date/Time: July 18, 2022 11:06 PM Reporting Lab: [facility] [address] Performing Lab: [facility] [address] FINGERSTICK GLUCOSE 163 70-100 July 17, 2022 06:51 AM [facility] BASIC METABOLIC PANEL+MG Specimen Type: PLASMA No comment entered. Ordering Provider: DANG VALLE R Report Released Date/Time: July 16, 2022 09:37 AM Reporting Lab: [facility] [address] Performing Lab: [facility] [address] CREATININE 0.8 0.7-1.2 UREA NITROGEN 23 8-26 GLUCOSE 107 H 70-100 SODIUM 139 136-145 POTASSIUM 3.9 3.5-5.1 CHLORIDE 106 98-107 CO2 28 22-29 CALCIUM 9.1 8.4-10.2 MAGNESIUM 1.9 1.6-2.6 ANION GAP 5 5-15 .CREAT EGFR(CKD-EPI) >90 See_Commen t July 17, 2022 06:51 AM [facility] PROTHROMBIN TIME/INR Specimen Type: PLASMA No comment entered. Ordering Provider: DANG VALLE R Report Released Date/Time: July 16, 2022 09:37 AM Reporting Lab: [facility] [address] Performing Lab: [facility] [address] .INR 1.0 0.8-1.1 .PT 11.5 9.4-12.5 July 17, 2022 06:51 AM [facility] CBC Specimen Type: BLOOD No comment entered. Ordering Provider: DANG VALLE R Report Released Date/Time: July 16, 2022 09:37 AM Reporting Lab: [facility] [address] Performing Lab: [facility] [address] WBC 6.05 4.0-11.0 RBC 3.77 L 4.6-6.2 HGB 12.7 L 13.5-17.9 HCT 36.0 L 41-54 MCV 95.5 80-100 MCH 33.7 H 27-33 MCHC 35.3 32.0-37.5 PLT 179 150-400 MPV 9.4 7.4-10.4 RDW 13.2 11.5-14.5 July 13, 2022 11:22 AM [facility] COVID-19 AND FLU/RSV DIAG PANEL(CEPHEID) Specimen Typ e: NASOPHARYNGEAL Comment: Cepheid GeneXpert (618) Ordering Provider: WHITNEY ANDERSON Report Released Date/Time: July 13, 2022 11:04 AM Reporting Lab: [facility] [address] Performing Lab: [facility] [address] COVID-19 (CEPHEID) Not Detected Not Detected INFLUENZA A (PCR) Not Detected Not Detected INFLUENZA B (PCR) Not Detected Not Detected RSV (PCR) Not Detected Not Detected July 13, 2022 11:00 AM [facility] C-REACTIVE PROTEIN Specimen Type: SERUM Comment: Automated Differential Performed Ordering Provider: WHITNEY ANDERSON Report Released Date/Time: July 13, 2022 11:04 AM Reporting Lab: [facility] [address] Performing Lab: [facility] [address] C-REACTIVE PROTEIN 1.17 <5.00 July 13, 2022 11:00 AM [facility] PROTHROMBIN TIME/INR Specimen Type: PLASMA No comment entered. Ordering Provider: WHITNEY ANDERSON Report Released Date/Time: July 13, 2022 11:04 AM Reporting Lab: [facility] [address] Performing Lab: [facility] [address] .INR 0.9 0.8-1.1 .PT 11.1 9.4-12.5 July 13, 2022 11:00 AM [facility] SED RATE Specimen Type: BLOOD No comment entered. Ordering Provider: WHITNEY ANDERSON Report Released Date/Time: July 13, 2022 11:04 AM Reporting Lab: [facility] [address] Performing Lab: [facility] [address] SED RATE 10 5-15 July 13, 2022 11:00 AM [facility] CBC & DIFF Specimen Type: BLOOD Comment: Automated Differential Performed Ordering Provider: WHITNEY ANDERSON Report Released Date/Time: July 13, 2022 11:04 AM Reporting Lab: [facility] [address] Performing Lab: [facility] [address] WBC 8.82 4.0-11.0 RBC 3.89 L 4.6-6.2 [...] 0.03 0-0.1 July 13, 2022 11:00 AM [facility] COMPREHENSIVE METABOLIC PANEL+MG Specimen Type: PLASMA Comment: Automated Differential Performed Ordering Provider: WHITNEY ANDERSON Report Released Date/Time: July 13, 2022 11:04 AM Reporting Lab: [facility] [address] Performing Lab: [facility] [address] CREATININE 1.0 0.7-1.2 UREA NITROGEN 16 8-26 [...] and tobacco- related health factors from the [place] facility where the Encounter took place. Current Smoking Status This section includes the most current smoking, or tobacco-related health factor, from the [place] facility where the Encounter took place. Date/Time Current Smoking Status Comment Facil juan josé May 10, 2022 09:15 AM VA-TOBACCO FORMER USER [facility] Tobacco Use History This section includes a history of the smoking, or tobacco-related health factors, that were collected on or before the date of the Encounter. The data comes from the [place] facility where the Encounter took place. Date/Time [...] ALL of a patient's completed or amended [place] Advance and Rescinded Directives. The entries below indicate that a directive exists for the patient, but an actual copy is not included with this document. The data comes from all [place] facilities. Date Advance Directives Provider Source Mar [...] the Encounter. The data comes from all [place] treatment facilities. Date/Time Radiology Report Provider Source July 20, 2022 07:50 AM CHEST 1 VIEW: MARYJO WAGNER [id number] -1950 M Exm Date: JULY 20, 2022@07:50 Req Phys: MACKENZIE COTTER Pat Loc: 07-20-2022@08:26 Img Loc: MAIN X-RAY Service: PRIMARY CARE - MED OFFICE (Case [id number] COMPLETE) CHEST 1 VIEW (RAD Detailed) CPT:93669 Proc Modifiers : PORTABLE EXAM Reason for Study: see below. thanks. Clinical History: IS NOT under investigation for COVID-19 or is COVID-19 negative Please further evaluate for acute airspace disease given o2 requirement. Thanks. Responsible provider name and phone number to notify for critical findings if other than user placing the order and pager listed below: User placing orders pager: [phone] same LAST CREATININE 0.9 (07/19/22) Report Status: Verified Date Reported: JULY 20, 2022 Date Verified: JULY 20, 2022 [employer] E-Sig:/ES/JAMIE MIGUEL MD Report: EXAM: CHEST 1 [...] pager listed below: User placing orders pager: [phone] same LAST CREATININE 0. COMPARISON: Chest CT [...] Primary Interpreting Staff: JAMIE MIGUEL MD, RADIOLOGIST ([employer]) /JAMIE FRANCES [facility] July 18, 2022 12:59 PM ELBOW LEFT 2 VIEWS: MARYJO WAGNER [id number] -1950 M Exm Date: JULY 18, 2022@12:59 Req Phys: LEIF BALBUENA Loc: OR-PACU/07-18-2022@13:59 Img Loc: MAIN X-RAY Service: ZZSURGICAL SERVICE (Case [id number] COMPLETE) ELBOW LEFT 2 VIEWS (RAD Detailed) CPT:42169 Proc Modifiers : PORTABLE EXAM, OPERATING ROOM EXAM Reason for Study: post-op Clinical History: post-op Report Status: Verified Date Reported: JULY 18, 2022 Date Verified: JULY 18, 2022 [employer] E-Sig:/ES/JAKUB LEE MD Report: EXAM: ELBOW LEFT [...] Primary Interpreting Staff: JAKUB LEE MD, RADIOLOGIST ([employer] Par[employer]) /[facility] JAKUB LEE [facility] July 18, 2022 07:30 AM FLUORO UP TO 1 HR PHYSICIAN TIME: MARYJO WAGNER [id number] -1950 M Exm Date: JULY 18, 2022@07:30 Req Phys: LEIF BALBUENA Loc: OR-PACU/07-18-2022@13:14 Img Loc: MAIN X-RAY Service: PRIMARY CARE - MED OFFICE (Case [id number] COMPLETE) FLUORO UP TO 1 HR PHYSICIAN TIME (RAD Detailed) CPT:69329 Proc Modifiers : PORTABLE EXAM, OPERATING ROOM EXAM, LEFT Reason for Study: Left distal humerous ORIF Clinical History: OR 7 Pathologic distal humeral shaft fracture Responsible provider name and phone number to notify for critical findings if other than user placing the order and pager listed below: User placing orders pager: Henry BALBUENA [phone] LAST CREATININE 0.8 (05/22/23) Report Status: Electronically Filed Date Reported: JULY [...] Imaging Department. VERIFIED BY: / *ELECTRONICALLY FILED* [facility] July 17, 2022 03:28 PM ABDOMINAL AORTOGRAM (P): MARYJO WAGNER [id number] -1950 M Exm Date: JULY 17, 2022@15:28 Req Phys: MALCOM LANGLEY [facility] Loc: 07-17-2022@15:54 Img Loc: INTERVENTIONAL RADIOLOGY Service: PRIMARY CARE - MED OFFICE (Case [id number] COMPLETE) ANGIOGRAPHY EXTREMITY UNILAT S&I (ANI Detailed) CPT:95007 Reason for Study: codes (Case 528 COMPLETE) IR AORTOGRAPHY ABDOMINAL W/O RUNO(ANI Detailed) CPT:20546 (Case 529 COMPLETE) IR FOREIGN BODY REMOVAL INTRAVASC(ANI Detailed) CPT:11368 (Case 532 COMPLETE) IR NEEDLE/INTRACATH PLACEMENT EXT(ANI Detailed) CPT:78410 (Case 533 COMPLETE) IR PLACEMENT OCCLUSIVE DEVICE SAM(ANI Detailed) CPT:G0269 Clinical History: codes Report Status: Verified Date Reported: JULY 17, 2022 Date Verified: JULY 17, 2022 [employer] E-Sig:/ES/MALCOM LANGLEY MD Report: RADIOLOGIST: Malcom Langley [...] angiogram and runoff. 12. Closure of right MARINE RAILWAY OPERATOR with Angio-Seal device. HISTORY: Metastatic renal [...] Sheath removed over guidewire and a 5 solomon islander vascular sheath advanced over guidewire into the artery. An H1 catheter was advanced along with the guidewire into the thoracic arch and the left subclavian artery was selected. Catheter and the guidewire were advanced into the left brachial artery. The 5 Congolese sheath was exchanged for a 6 Congolese sheath that was advanced into the left [...] arteries. Sheath and catheters were removed and MARINE RAILWAY OPERATOR arteriotomy was closed using Angioseal. There is patent hemostasis. No bleeding or hematoma noted. Sterile dressing applied. 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 Primary Interpreting Staff: MALCOM LANGLEY MD, INTERVENTIONAL RADIOLOGIST ([employer]) /MALCOM HE [facility] July 17, 2022 07:30 AM RENAL ARTERY EMBOLIZATION (P): MARYJO WAGNER [id number] -1950 M Exm Date: JULY 17, 2022@07:30 Req Phys: WESTON VASQUEZ [facility] Loc: 07-17-2022@15:46 Img Loc: INTERVENTIONAL RADIOLOGY Service: PRIMARY CARE - MED OFFICE (Case [id number] COMPLETE) IR TRANSCATH EMBOLIZATION W/ANGIO(ANI Detailed) CPT:17301 Reason for Study: embolization of RCC mets to left humerus (Case 131 COMPLETE) IR ARTERIAL EMBOLIZATION OTHER TH(ANI Detailed) CPT:07632 (Case 132 COMPLETE) IR US GUIDANCE VASCULAR ACCESS (ANI Detailed) CPT:19711 Clinical History: [place] IS NOT under investigation for COVID-19 or [...] pager listed below: User placing orders pager: [phone] LAST CREATININE 1.0 (07/13/22) Report Status: Verified Date Reported: JULY 17, 2022 Date Verified: JULY 17, 2022 [employer] E-Sig:/ES/MALCOM LANGLEY MD Report: RADIOLOGIST: Malcom Langley [...] angiogram and runoff. 12. Closure of right MARINE RAILWAY OPERATOR with Angio-Seal device. HISTORY: Metastatic renal [...] Sheath removed over guidewire and a 5 solomon islander vascular sheath advanced over guidewire into the artery. An H1 catheter was advanced along with the guidewire into the thoracic arch and the left subclavian artery was selected. Catheter and the guidewire were advanced into the left brachial artery. The 5 Congolese sheath was exchanged for a 6 Congolese sheath that was advanced into the left [...] arteries. Sheath and catheters were removed and MARINE RAILWAY OPERATOR arteriotomy was closed using Angioseal. There is patent hemostasis. No bleeding or hematoma noted. Sterile dressing applied. 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 Primary Interpreting Staff: MALCOM LANGLEY MD, INTERVENTIONAL RADIOLOGIST ([employer]) /MALCOM HE [facility] July 14, 2022 06:44 AM HUMERUS LEFT MINIMUM 2 VIEWS: MARYJO WAGNER DIRK [id number] -1950 M Exm Date: JULY 14, 2022@06:44 Req Phys: WESTON VASQUEZ Loc: 07-14-2022@07:13 Img Loc: MAIN X-RAY Service: PRIMARY CARE - MED OFFICE (Case [id number] COMPLETE) HUMERUS LEFT MINIMUM 2 VIEWS (RAD Detailed) CPT:69300 Reason for Study: post reduction Clinical History: Report Status: Verified Date Reported: JULY 14, 2022 Date Verified: JULY 14, 2022 [employer] E-Sig: Report: HUMERUS LEFT MINIMUM 2 VIEWS HISTORY: post reduction COMPARISON: 07/13/2022 TECHNIQUE: 2 view(s) of the humerus, submitted to the [place] National Teleradiology Program (NTP) for interpretation. FINDINGS: [...] less likely. READING PHYSICIAN: Xavier Merrill MD -[phone] 07/14/2022 5:11 PDT [facility] National Teleradiology Program [phone] (For Medical Practitioner Use Only) Attention Patients / Veterans: If you have questions or concerns about these test results, please contact your ordering provider or primary care team. Primary Interpreting Staff: RADIOLOGY,OUTSIDE SERVICE, Staff Physician / RADIOLOGY,OUTSIDE SERVICE [facility] July 13, 2022 10:07 AM HUMERUS LEFT MINIMUM 2 VIEWS: CARSONLELIAMARYJO CAVAZOS [id number] -1950 M Exm Date: JULY 13, 2022@10:07 Req Phys: WHITNEY ANDERSON Pat Loc: [facility] EMERGENCY DEPT WALK-IN (Re Img Loc: MAIN X-RAY Service: Unknown (Case 215 COMPLETE) HUMERUS LEFT MINIMUM 2 VIEWS (RAD Detailed) CPT:99125 Proc Modifiers : LEFT Reason for Study: [...] pager listed below: User placing orders pager: [phone] LAST CREATININE 0.8 (05/10/22) Report Status: Verified Date Reported: JULY 13, 2022 Date Verified: JULY 13, 2022 [employer] E-Sig:/ES/ALBINA COWAN MD, FACR, CCD Report: EXAMINATION: [...] Staff: ALBINA COWAN MD, FACR, STAFF RADIOLOGIST ([employer]egal) /BSF ALBINA COWAN [facility] July 13, 2022 10:07 AM ELBOW LEFT 3 OR MORE VIEWS: MARYJO WAGNER [id number] -1950 M Exm Date: JULY 13, 2022@10:07 Req Phys: WHITNEY ANDERSON Pat Loc: [facility] EMERGENCY DEPT WALK-IN (Re Img Loc: MAIN X-RAY Service: Unknown (Case [id number] COMPLETE) ELBOW LEFT 3 OR MORE VIEWS (RAD Detailed) CPT:68898 Proc Modifiers : LEFT Reason for Study: [...] pager listed below: User placing orders pager: [phone] LAST CREATININE 0.8 (05/10/22) Report Status: Verified Date Reported: JULY 13, 2022 Date Verified: JULY 13, 2022 [employer] E-Sig:/SANGITA/ALBINA COWAN MD, FACR, CCD Report: EXAMINATION: [...] Staff: ALBINA COWAN MD, FACR, STAFF RADIOLOGIST ([employer]) /ALBINA NATHAN [facility] July 13, 2022 10:07 AM FOREARM LEFT 2 VIEWS: MARYJO WAGNER [id number] -1950 M Exm Date: JULY 13, 2022@10:07 Req Phys: WHITNEY ANDERSON Pat Loc: [facility] EMERGENCY DEPT WALK-IN (Re Img Loc: MAIN X-RAY Service: Unknown (Case [id number] COMPLETE) FOREARM LEFT 2 VIEWS (RAD Detailed) CPT:19313 Proc Modifiers : LEFT Reason for Study: L arm pain Clinical History: [facility] IS NOT under investigation for COVID-19 or is COVID-19 negative Atraumatic left upper extremity pain that is located midshaft humerus distally to the mid forearm. Clinical concern for dislocation versus fracture versus bone mets Responsible provider name and phone number to notify for critical findings if other than user placing the order and pager listed below: User placing orders pager: [phone] LAST CREATININE 0.8 (05/10/22) Report Status: Verified Date Reported: JULY 13, 2022 Date Verified: JULY 13, 2022 [employer] E-Sig:/ES/ALBINA COWAN MD, FACR, CCD Report: EXAMINATION: [...] Staff: ALBINA COWAN MD, FACR, STAFF RADIOLOGIST ([employer]) /ALBINA NATHAN [facility] Pathology Reports: +/- 30 days [...] the Encounter. The data comes from all [place] treatment facilities. Date/Time Pathology Report Provider Source July 13, 2022 04:06 PM LR SURGICAL PATHOL OGY REPORT: LOCAL TITLE: LR SURGICAL PATHOLOGY REPORT STANDARD TITLE: PATHOLOGY REPORT DATE OF NOTE: JULY 21, 2022@14:37:27 ENTRY DATE: JULY 21, 2022@14:37:27 AUTHOR: JIAN SANDOVAL EXP COSIGNER: URGENCY: STATUS: COMPLETED $APHDR Reporting Lab: [facility] [CLIA# [id number]] [place] [address] - - - - - - - [...] - - - PATHOLOGY REPORT Accession No. [id number] - - - - - [...] is entirely submitted in A-D. CE. (D). [facility] FROZEN SECTION DIAGNOSES: SPEC. 1 [...] SANDOVAL STAFF PATHOLOGIST, PATHOLOGY & LABORATORY MED [facility] Signed July 21, 2022@14:37 Performing Laboratory: Surgical Pathology Report Performed By: [facility] [CLIA# [id number]] [place] [address] $FTR - - - - - - [...] - - MARYJO WAGNER STANDARD FORM 515 ID:[id number] SEX:M :1950 AGE: 72 LOC:[facility] PATHOLOGY PRO FEE ADM:June DX:PATHOLOGIC FX LF HUMERUS PCP: Leif Balbuena MD /sangita/ JIAN SANDOVAL STAFF PATHOLOGIST, PATHOLOGY & LABORATORY [facility] Signed: 07/21/2022 14:37 JIAN SANDOVAL [facility] Encounter Notes: All associated encounter notes This section contains the clinical notes associated to the Encounter. Date/Time Encounter Note(s) Provider Source July 22, 2022 04:54 PM ANESTHESIOLOGY NOT E: LOCAL TITLE: ANESTHESIA PROGRESS NOTE STANDARD TITLE: ANESTHESIOLOGY NOTE DATE OF NOTE: JULY 22, 2022@16:54 ENTRY DATE: JULY 22, 2022@16:54:37 AUTHOR: ALEIDA WILKES COSIGNER: URGENCY: STATUS: COMPLETED Followed up with patient who was discharged 07/21/2022. Patient had a left infraclavicular nerve catheter in place and was bolused with ropivacaine and removed on 07/21/2022 by the anesthesia pain service. I called the patient today and he said the numbness is resolving in his arm at this time and that his pain was under control. This is normal and we do not have any concerns regarding this. Will follow up again on Sunday07/23/2022 /sangita/ ALEIDA WILKES CRNA CERTIFIED REGISTERED NURSE FINANCIAL INVESTMENT MANAGER Signed: 07/22/2022 17:10 Receipt Acknowledged By: * AWAITING SIGNATURE * CHARLES ABARCA GARRETT JOEL [facility]
--- OUTSIDE RECORDS SUMMARY | 2023-03-24 08:51 | XMS_ITS | Encounter Summary ---
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 of Vetera [facility] Address [address] [place] [address] Support Name Relationship Address Phone DOREEN WANGER Next of Kin [id number] [place] [phone] DOREEN Emergency Contact [phone] [place] [phone] Insurance Providers: All historical and current [...] [place]'s Name Patient's Relationship to Policy [place] [facility] MEDICARE [facility] ([facility]) June 26, 2016 [id number] CARSONJOAN ROWELL PATIENT [employer] [facility] (WN) MEDICARE ADVANTAGE [facility] ([facility]) June 26, 2016 [id number] JOAN WAGNER KARSTEN PATIENT [employer] [facility] (WNR) MEDICARE ADVANTAGE [facility] ([facility]) June 26, 2016 [id number] JOAN WAGNER KARSTEN PATIENT Selected Encounter This section includes the information on record at [place] for the Encounter. Date/Time Encounter Type Encounter Description Reason Provider Source Apr 26, 2022 10:00 AM OFFICE O/P EST LOW [facility] ICD-10-CM C64.2 Malignant neoplasm of left kidney, except renal pelvis ANNABEL PAGAN Encounter Template Text not used by [place] Assessments - Encounter Diagnoses This section includes the primary and secondary diagnoses documented for the Encounter. Date/Time Primary/Secondary Diagnosis Diagnosis Name Provider Source Apr 26, 2022 05:20 PM PRIMARY Malignant neoplasm of left kidney, except renal pelvis NEGINANNABEL [facility] Plan of Treatment: Future Appointments (+ 6 months) and Future Tests (+/- 45 days) The Plan of Treatment section includes future care activities for the patient from all [place] treatmentfacilities. This section includes future appointments and future orders which are active, pending or scheduled. Future Appointments This section includes appointments that were scheduled to occur 6 months from the date of the Encounter, up to a maximum of 20 appointments. The data comes from all [facility]. Appointment Date/Time Appointment Type Appointme nt Facility Name May 10, 2022 08:15 AM [facility] May 10, 2022 09[facility]15 [facility] May 17, 2022 08:00 AM [facility] July 13, 2022 08:57 AM [facility] Jul 28, 2022 10:45 AM [facility] Aug 13, 2022 06:13 PM [facility] Aug 23, 2022 09:30 AM AMBULATORY - SURGERY [facility] Aug 23, 2022 09:45 AM [facility] Aug 23[facility] 2022 10:30 AM [facility] Aug 23, 2022 10:31 AM [facility] Sep 06, 2022 10:15 AM AMBULATORY - SURGERY [facility] Oct 25, 2022 07:00 AM [facility] Oct 25, 2022 07:30 AM [...] of theEncounter. The data comes from all [facility]. Test Date/Time Test Type Test Details Facility Name May 22, 2022 12:00 AM Laboratory - Chemistry Order CBC & DIFF BLOOD ONCO SP ONCE [facility] May 22, 2022 12:00 AM Laboratory - Chemistry Order TSH W/REFLEX TO FREE T4 PLASMA ONCO SP [facility] May 22, 2022 12:00 AM Laboratory - Chemistry Order COMPREHENSIVE METABOLIC PANEL+MG PLASMA ONCO SP [facility] Lab Results: +/- 30 days of the encounter This section includes the Chemistry and Hematology Lab Results on record with [place] for the patient. Radiology Reports and Pathology Reports are provided separately, in subsequent sections. Lab Results This section contains the Chemistry/Hematology Results that were resulted 30 days before or 30 daysafter the date of the Encounter. Date/Time Source Result Type Result - Unit Interpretation Reference Range Comment May 10, 2022 08:54 AM [facility] PSA Specimen Type: SERUM No comment entered. Ordering Provider: JUANY WYNN Report Released Date/Time: May 11, 2021 09:37 AM Reporting Lab: [facility] [id number] Performing Lab: [facility] [id number] PSA 8.25 H <4.00 May 10, 2022 08:54 AM [facility] BASIC METABOLIC PANEL+MG Specimen Type: PLASMA No comment entered. Ordering Provider: JUANY WYNN Report Released Date/Time: May 11, 2021 09:37 AM Reporting Lab: [facility] [id number] Performing Lab: [facility] [id number] CREATININE 0.8 0.7-1.2 UREA NITROGEN 12 8-26 GLUCOSE 97 70-100 SODIUM 137 136-145 POTASSIUM 4.1 3.5-5.1 CHLORIDE 104 98-107 CO2 27 22-29 CALCIUM 9.1 8.4-10.2 MAGNESIUM 2.1 1.6-2.6 ANION GAP 6 5-15 CREAT EGFR(CKD-EPI ) >90 >60 Apr 13, 2022 01:46 PM [facility] POC CREATININE Specimen Type: BLOOD No comment entered. Ordering Provider: JUANY WYNN Report Released Date/Time: Apr 13, 2022 01:48 PM Reporting Lab: [facility] [id number] Performing Lab: [facility] [id number] POC CREATININE 1.0 0.6-1.3 Apr 13, 2022 11:22 AM [facility] PSA Specimen Type: SERUM No comment entered. Ordering Provider: MAX BOOGIE Report Released Date/Time: Oct 12, 2021 10:23 AM Reporting Lab: [facility] [id number] Performing Lab: [facility] [id number] PSA 8.75 H <4.00 Social History: Smoking Status (Most current) and Tobacco Use (All prior to encounter date) This section includes the most current, and the historical, smoking and tobacco- related health factors from the [place] facility where the Encounter took place. Current Smoking Status This section includes the most current smoking, or tobacco-related health factor, from the [place] facility where the Encounter took place. Date/Time Current Smoking Status Comment Facil ity May 11, 2021 09:15 AM VA-TOBACCO FORMER USER [facility] Tobacco Use History This section includes a history of the smoking, or tobacco-related health factors, that were collected on or before the date of the Encounter. The data comes from the [place] facility where the Encounter took place. Date/Time Smoking Status/Tobacco Use Comment F acility May 11, 2021 09:15 AM [place]-TOBAC[place] QUIT 15 YRS OR MORE [facility] [...] ALL of a patient's completed or amended [place] Advance and Rescinded Directives. The entries below indicate that a directive exists for the patient, but an actual copy is not included with this document. The data comes from all [place] facilities. Date Advance Directives Provider Source Mar 18, 2003 ADVANCE DIRECTIVE [facility] Radiology Reports: +/- 30 days of the [...] the Encounter. The data comes from all [place] treatment facilities. Date/Time Radiology Report Provider Source Apr 13, 2022 01:[address] (CAP) CHEST/ABD/PELVIS (P): MARYJO WAGNER [id number] [id number] Ex Date: APR 13, 2022@13:48 Req Phys: KELLY BOOGIE Pat Loc: [facility] UROL CHIEF RES.2V (Req'g L Img Loc: CT IMAGING Service: Unknown (Case [id number] COMPLETE) CT (CAP) CHEST W CONTRAST (CT Detailed) CPT:54054 Contrast Media : Non-ionic Iodinated Reason for Study: metastatic RCC surveillance (Case [id number] COMPLETE) CT (CAP) ABDOMEN/PELVIS W CONTRAS(CT Detailed) CPT:28310 Contrast Media : Non-ionic Iodinated Clinical History: metastatic RCC surveillance [place] IS NOT under investigation for COVID-19 or is COVID-19 negative Defer to radiologist for final CT protocol. Responsible provider name and phone number to notify for critical findings if other than user placing the order and pager listed below: User placing orders pager: [phone] LAST 3: Collection DT Specimen Test Name [...] PLASMA ESTIMATED GFR(eGF >60 Ref: >=60 Allergies: ([place] only) CHINMAY (Nov 21, 2002) Report Status: Verified Date Reported: APR 13, 2022 Date Verified: APR 13, 2022 Broadcast Operations Manager E-Sig:/ES/CORBIN MORROW MD Report: EXAM: CT chest, [...] technically indeterminant. Recommend attention on subsequent surveillance. I, CORBIN MORROW, have reviewed the images and report. Primary Interpreting Staff: CORBIN MORROW MD, RADIOLOGIST (Broadcast Operations Manager) Primary Interpreting Resident: JON BANUELOS, , COMPUTER SYSTEMS SECURITY ANALYST /SCOTTL CORBIN MORROW [facility] Encounter Notes: All associated encounter notes This section contains the clinical notes associated to the Encounter. Date/Time Encounter Note(s) Provider Source Apr 26, 2022 10:06 AM UROLOGY ATTENDING NOTE: LOCAL TITLE: UROLOGY CLINIC NOTE STANDARD TITLE: UROLOGY ATTENDING NOTE DATE OF NOTE: APR 26, 2022@10:06 ENTRY DATE: APR 26, 2022@10:06:19 AUTHOR: JOSY MURRY COSIGNER: URGENCY: STATUS: COMPLETED UROLOGY CLINIC NOTE Has ADDENDA CC: Metastatic RCC, prostate cancer watchful waiting HPI: Pt is a 71 male with metastatic kidney cancer (dx 2018 with biopsy) on observation, prostate cancer (dx 2017)on WW, and retention on CIC BID. He denies weight loss or bone pain. He denies hematuria. He is overall feeling very well. He and his tell me how he has surpassed his odds for survival and their hesitancy to pursue treatment for either malignancy. PMH: Active problems - Computerized Problem List is the source for the followin. OBESITY, UNSP 2. LIVER CHEM, ABNORMAL 3. Adjustment Disorder with Mixed Anxiety and Depressed Mood 4. Other and unspecified Sleep Apnea 5. Elevated Prostate Specific Antigen (PSA) 6. Dysmetabolic Syndrome X 7. Polyp of colon (SNOMED CT [id number]) - 2011, repeat in 7-10 years, see report 8. Malignant tumor of prostate (SNOMED CT [id number]) 9. Benign hypertension 10. Retention of urine 11. Malignant tumor of kidney parenchyma 12. Multinodular goiter 13. Secondary malignant neoplasm of pancreas PSA 8.75 H SERUM (04/13/22 11:22) 8.26 H SERUM (10/12/21 07:37) 7.11 H SERUM (05/11/21 07:57) 7.11 H SERUM (03/21/21 08:07) 7.05 H SERUM (09/09/20 13:35) 6.27 H SERUM (03/17/20 09:04) 5.71 H SERUM (09/24/19 09:16) 3.78 SERUM (09/18/18 06:50) 5.42 H PLASMA (11/12/17 06:41) 5.56 H PLASMA (11/12/17 06:41) 14.20 H PLASMA (07/06/17 08:42) CREATININE 0.7 PLASMA (05/11/21 07:57) PE: Temperature: 98.1 F [36.7 C] (02/14/2022 08:34) Pulse: 54 (02/14/2022 08:34) Respirations: 20 (05/11/2021 09:04) Blood Pressure: 130/75 (02/14/2022 08:34) Pain: 1 (05/11/2021 09:04) GEN: pleasant male in NAD, A&Ox3, normal body habitus Lungs: no respiratory distress MS: moving all extremities Psych: normal mood and affect CT A/P 04/13/2022- Impression: 1. 8.9 x 8.8 x 5.0 [...] technically indeterminant. Recommend attention on subsequent surveillance. Assessment: Pt is a 71 male with a history of metastatic renal cell carcinoma and prostate cancer, on watchful waiting, who presents to clinic for follow- up. #Metastatic RCC; biopsy-proven, 2018 We have been following his cancel with serial imaging for several years and his cancer continues to slowly progress. In addition to enlarging bilateral renal masses, he has enhancing masses in his pancreas, right adrenal glands, and also several pulmonary nodules. We have discussed with him previously our recommendation that he see medical oncology to discuss systemic treatment as he is not a surgical candidate, but he has repeatedly declined this. I had a kermit discussion with the patient and his today that I could not, in good elli[place], continue to perform routine surveillance CT scans if he had no interest in medical treatment. I discussed my worry that although he is asymptomatic at this time, eventually the cancer will spread to other organs, possibly bone, and cause him severe pain and ultimately . He shares with me that his friend recently from cancer metastatic to the bone and that the end of his life was filled with suffering. He is worried this will happen to him, as am I. He now agrees with referral to medical oncology, but also expressed that he is unwilling to undergo chemotherapy. Our department will plan to stop surveillance imaging and defer to the medical oncologists pending their discussion of treatment. If he continues to decline systemic treatment, palliative care consultation in the near future may be warranted. #Prostate cancer; Gl 3+4 = 7 dx 2017 He has declined treatment for this or repeat biopsies and has been on watchful waiting. He does request PSA checks every 6 months which have been slowly rising. #BPH with urinary retention Manages with BID CIC (occasionally more frequently if he does not feel he is able to empty throughout the day). No issues with UTIs or gross hematuria. Plan: - Medical oncology referral - RTC in 6 months with PSA History, Exam, & Plan Discussed with Dr. Pagan /sangita/ JOSY MURRY MD UROLOGY RESIDENT Signed: 04/26/2022 10:59 Receipt Acknowledged By: 04/26/2022 17:20 /sangita/ ANNABEL PAGAN MD STAFF SURGEON 05/22/2022 ADDENDUM STATUS: COMPLETED Patient was seen by heme/onc with initial plan for immunotherapy, however patient called recently to cancel his infusions. States he believes doctors are lying about the cure for cancer and [employer] makes money off patients who undergo chemo/immunotherapy. He has been extensively counseled on the natural course of his disease and expected course (widespread metastates and ultimately ). We will not be performing further surveillance imaging as the patient adamantly refuses any treatment for his cancer. He also refuses palliative consultation. At his next clinic appointment I would also recommend stopping PSA screening. /es/ JOSY MURRY MD UROLOGY RESIDENT Signed: 05/22/2022 08:19 JOSY MURRY [facility]
--- OUTSIDE RECORDS SUMMARY | 2023-03-24 08:52 | XMS_ITS | Encounter Summary ---
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 [facility] Organization Department of [facility] Address [address] [place] [address] Support Name Relationship Address Phone DOREEN WAGNER Next of Kin [address] [place] [phone] DOREEN Emergency Contact [address] [place] [phone] Insurance Providers: All historical and current [...] [place]'s Name Patient's Relationship to Policy [place] [facility]) MEDICARE [facility] ([facility]) June 26, 2016 [id number] JOAN WAGNER PATIENT [employer] [facility] (WN) MEDICARE [facility] ([facility]) June 26, 2016 [id number] JOAN WAGNER PATIENT [employer]NA MCR (WNR) MEDICARE ADVANTAGE [facility] ([facility]) June 26, 2016 [id number] [phone] JOAN WAGNER PATIENT Selected Encounter This section includes the information on record at [place] for the Encounter. Date/Time Encounter Type Encounter Description Reason Provider Source May 10, 2022 09:15 AM OFFICE O/P EST MOD 30-39 MIN PRIMARY CARE/MEDICINE ICD-10-CM C64.2 Malignant neoplasm of left kidney, except renal pelvis JUANY WYNN Encounter Template Text not used by [place] Assessments - Encounter Diagnoses This section includes the primary and secondary diagnoses documented for the Encounter. Date/Time Primary/Secondary Diagnosis Diagnosis Name Provider Source May 10, 2022 09:46 AM PRIMARY Malignant neoplasm of left kidney, except renal pelvis [facility] May 10, 2022 09:46 AM SECONDARY Contact with and exposure to other hazardous substances W[facility]NN,[facility] May 10, 2022 09:46 AM SECONDARY Essential (primary) hypertension [facility] May 10, 2022 09:46 AM SECONDARY Malignant neoplasm of prostate WYNN,[facility] May 10, 2022 09:46 AM SECONDARY Nontoxic multinodular goiter WYNN,[facility] May 10, 2022 09:46 AM SECONDARY Other retention of urine WYNN,[facility] May 10, 2022 09:46 AM SECONDARY Personal history of colonic polyps WYNN,[facility] May 10, 2022 09:46 AM SECONDARY Secondary malignant neoplasm of other digestive organs [facility] Plan of Treatment: Future Appointments (+ 6 months) and Future Tests (+/- 45 days) The Plan of Treatment section includes future care activities for the patient from all [facility]. This section includes future appointments and future orders which are active, pending or scheduled. Future Appointments This section includes appointments that were scheduled to occur 6 months from the date of the Encounter, up to a maximum of 20 appointments. The data comes from all [facility]. Appointment Date/Time Appointment Type Appointme nt Facility Name May 17, 2022 08:00 AM [facility] July 13, 2022 08:57 AM [place] [facility] Jul 28, 2022 10:45 AM [place] [facility] Aug 13, 2022 06:13 PM [place]IC[place] [facility] Aug 23, 2022 09:30 AM [place] [facility] Aug 23, 2022 09:45 AM [place] [facility] Aug 23, 2022 10:30 AM [place]IC[place] [facility] Aug 23, 2022 10:31 AM [place]IC[place] [facility] Sep 06, 2022 10:15 AM [place] [facility] Oct 25, 2022 07:00 AM [place] [facility] Oct 25, 2022 07:30 AM [place]BUL[place]ORY [place] [facility] Oct 25, 2022 09:00 AM AMBULATORY - SURGERY [facility] Active, Pending, and Scheduled Orders This section includes a listing of several types of active, pending, and scheduled orders, including clinic medications orders, diagnostic test orders, procedure orders and consult orders; where the start date of the order is 45 days before the date of the Encounter or 45 days after the date of theEncounter. The data comes from all [place] treatment facilities. Test Date/Time Test Type Test Details Facility Name May 22, 2022 12:00 AM Laboratory - Chemistry Order CBC & DIFF BLOOD ONCO SP ONCE [facility] May 22, 2022 12:00 AM Laboratory - Chemistry Order TSH W/REFLEX TO FREE T4 PLASMA ONCO SP [facility] May 22, 2022 12:00 AM Laboratory - Chemistry Order COMPREHENSIVE METABOLIC PANEL+MG PLASMA ONCO SP [facility] Jun 12, 2022 12:00 AM Laboratory - Chemistry Order CBC & DIFF BLOOD ONCO SP ONCE [facility] Jun 12, 2022 12:00 AM Laboratory - Chemistry Order COMPREHENSIVE METABOLIC PANEL+MG PLASMA ONCO SP ONCE [facility] Jun 12, 2022 12:00 AM Laboratory - Chemistry Order TSH W/REFLEX TO FREE T4 PLASMA ONCO SP ONCE [facility] Lab Results: +/- 30 days of [...] Range Comment May 10, 2022 08:54 AM [facility] PSA Specimen Type: SERUM No comment entered. Ordering Provider: JUANY WYNN Report Released Date/Time: May 11, 2021 09:37 AM Reporting Lab: [facility] [id number] Performing Lab: [facility] [id number] PSA 8.25 H <4.00 May 10, 2022 08:54 AM [facility] BASIC METABOLIC PANEL+MG Specimen Type: PLASMA No comment entered. Ordering Provider: JUANY WYNN Report Released Date/Time: May 11, 2021 09:37 AM Reporting Lab: [facility] [id number] Performing Lab: [facility] [id number] CREATININE 0.8 0.7-1.2 UREA NITROGEN 12 8-26 GLUCOSE 97 70-100 SODIUM 137 136-145 POTASSIUM 4.1 3.5-5.1 CHLORIDE 104 98-107 CO2 27 22-29 CALCIUM 9.1 8.4-10.2 MAGNESIUM 2.1 1.6-2.6 ANION GAP 6 5-15 CREAT EGFR(CKD-EPI ) >90 >60 Apr 13, 2022 01:46 PM [facility] POC CREATININE Specimen Type: BLOOD No comment entered. Ordering Provider: JUANY WYNN Report Released Date/Time: Apr 13, 2022 01:48 PM Reporting Lab: [facility] [id number] Performing Lab: [facility] [address] POC CREATININE 1.0 0.6-1.3 Apr 13, 2022 11:22 AM [facility] PSA Specimen Type: SERUM No comment entered. Ordering Provider: MAX BOOGIE Report Released Date/Time: Oct 12, 2021 10:23 AM Reporting Lab: [facility] [id number] Performing Lab: [facility] [id number] PSA 8.75 H <4.00 Vital Signs: All taken on the encounter date This section contains inpatient and outpatient Vital Signs collected on the date of the Encounter. Date/Time Temperature Pulse Blood Pressure Respiratory Rate SP02 Pain Height Weight Body Mass Index Source May 10, 2022 08:52 AM 133/84 mm[Hg] [facility] May 10, 2022 08:42 AM 54 /min 146/85 mm[Hg] 16 /min 95 % 2 246 lb 33 [facility] Social History: Smoking Status [...] Encounter took place. Date/Time Current Smoking Status Zahraa can May 10, 2022 09:15 AM VA-TOBACCO FORMER [...] this document. The data comes from all [place] facilities. Date Advance Directives Provider Source Mar 18, 2003 ADVANCE DIRECTIVE FARHAT MEGLAR [facility] Radiology Reports: +/- 30 days of [...] PM CT (CAP) CHEST/ABD/PELVIS (P): MARYJO WAGNER [id number] [id number] M Exm Date: APR 13, 2022@13:48 Req Phys: KELLY BOOGIE Loc: [facility] UROL CHIEF RES.2V (Req'g L Img Loc: CT IMAGING Service: Unknown (Case [id number] COMPLETE) CT (CAP) CHEST W CONTRAST (CT Detailed) CPT:21451 Contrast Media : Non-ionic Iodinated Reason for Study: metastatic RCC surveillance (Case [id number] COMPLETE) CT (CAP) ABDOMEN/PELVIS W CONTRAS(CT Detailed) CPT:43540 Contrast Media : Non-ionic Iodinated Clinical History: metastatic RCC surveillance IS NOT under investigation for COVID-19 or is COVID-19 negative Defer to radiologist for final CT protocol. Responsible provider name and phone number to notify for critical findings if other than user placing the order and pager listed below: User placing orders pager: [phone] LAST 3: Collection DT Specimen Test Name [...] PLASMA ESTIMATED GFR(eGF >60 Ref: >=60 Allergies: ([place] only) BHAVYANUTS (Nov 21, 2002) Report Status: Verified Date Reported: APR 13, 2022 Date Verified: APR 13, 2022 Commercial Review Appraiser E-Sig:/ES/CORBIN MORROW MD Report: EXAM: CT chest, [...] Primary Interpreting Staff: CORBIN MORROW MD, RADIOLOGIST (Commercial Review Appraiser) Primary Interpreting Resident: JON BANUELOS, , CIRCLE BEVELER /SCOTTL CORBIN MORROW [facility] Encounter Notes: All associated encounter notes This section contains the clinical notes associated to the Encounter. Date/Time Encounter Note(s) Provider Source May 11, 2022 07:40 AM LETTERS: LOCAL TITLE: FOLLOW UP RESULTS LETTER STANDARD TITLE: LETTERS DATE OF NOTE: MAY 11, 2022@07:40 ENTRY DATE: MAY 11, 2022@07:40:51 AUTHOR: JUANY WYNN COSIGNER: URGENCY: STATUS: COMPLETED [facility] [address] [place] [address] Apr MARYJO CONDE BERNARD [address] [place] [phone] Dear : Thank you for your 05/10/22 09:15 Primary Care Appointment. I am writing to provide your test results. LABORATORY REPORTS: Laboratory tests are normal unless designated with H for Higher than normal or L for Lower than normal. - Electrolytes: normal SODIUM 137 (05/10/22) 136 - 145 POTASSIUM 4.1 (05/10/22) 3.5 - 5.1 CALCIUM 9.1 (05/10/22) 8.5 - 10.1 MAGNESIUM 2.1 (05/10/22) 1.8 - 2.4 - Kidney function: normal CREATININE 0.8 (05/10/22) 0.7 - 1.2 FLOW RATE EGFR (09/29) 03/17/20 @ 0904 111 CREATININE EGFR (CKD-EPI) 05/10/22 @ 0854 >90 Ref: >=60 - Test for (protein) nutrition: normal ALBUMIN 3.7 (05/11/21) 3.4 - 5.0 - Liver enzyme tests: normal AST/SGOT 22 (05/11/21) 15 - 37 ALT/SGPT 22 (05/11/21) 12 - 78 ALK PHOSPHATASE 56 (05/11/21) 50 - 136 BILIRUBIN, TOTAL 0.7 (05/11/21) 0.2 - 1.0 - Blood sugar: GLUCOSE 97 (05/10/22) < 106 when Fasting - Prostate test: normal PSA 8.25 H (05/10/22) 0 - 4 FUTURE APPOINTMENTS: MAY 10, 2022@08:15 Clinic: [facility] 4F MAY 10, 2022@09:15 Clinic: [facility] 4F MAY 17, 2022@08:00 Clinic: [facility] ON[facility] NEW PATIENT 3V OCT 25, 2022@07:00 Clinic: [facility] BLOOD DRAWING ROOM OCT 25, 2022@09:00 Clinic: [facility] UROL CHIEF RES.2V A Primary Care appt is planned once yearly to stay enrolled in primary care. You should be contacted by the [place] ONE MONTH PRIOR as a reminder to schedule. The [place] [facility] Call [facility] line is [phone] [press 4 for Attendant]. Please call if you have any questions or concerns. Thank you for choosing [facility] for your Primary Care. Sincerely, Juany Wynn MD Physician JUANY WYNN [facility] May 10, 2022 08:44 AM INTERNAL MEDICINE OUTPATIENT NOTE: LOCAL TITLE: MEDICINE CLINIC NURSING NOTE STANDARD TITLE: INTERNAL MEDICINE OUTPATIENT NOTE DATE OF NOTE: MAY 10, 2022@08:44 ENTRY DATE: MAY 10, 2022@08:44:29 AUTHOR: CORRY MCGRAW EXP COSIGNER: URGENCY: STATUS: COMPLETED TYPE OF VISIT: Appointment Check In Type of appointment: In-person appointment REASON FOR VISIT: annual visit ALLERGIES: HAZELNUTS (Nov 21, 2002) VITAL SIGNS: Blood Pressure: 146/85 (05/10/2022 08:42) 133/84 Pulse: 54 (05/10/2022 08:42) Respiration: 16 (05/10/2022 08:42) Temperature: 98.1 F [36.7 C] (02/14/2022 08:34) Weight: 246 lb [111.58 kg] (05/10/2022 08:42) Height: 72 in [182.9 cm] (05/11/2021 09:04) BMI: 33.4 O2 Sat: 95% (05/10/2022 08:42) Pain: 2 (05/10/2022 08:42) PAIN SCREEN: Patient is having significant pain that they would like to talk to their provider about today. Pain Education Patient indicates readiness to learn and verbalizes understanding of the following: Pain assessment process Has concerns/questions, advised to discuss with provider MEDICATION Active Outpatient Medications (including Supplies): CATHETER,SELF-CATH COUDE 14FR COLO#22125 USE CATHETER ACTIVE TOPICALLY DIRECTED LISINOPRIL 20MG TAB TAKE ONE TABLET BY MOUTH EVERY DAY FOR ACTIVE BLOOD PRESSURE LUBRICATING TOP JELLY BACTERIOSTATIC APPLY JELLY TOPICALLY ACTIVE DIRECTED SODIUM FLUORIDE 1.1% TOOTHPASTE USE SMALL AMOUNT MOUTH ACTIVE EVERY MORNING AND AT BEDTIME ON TOOTHBRUSH, BRUSH FOR 2 MINUTES TAMSULOSIN HCL 0.4MG CAP TAKE ONE CAPSULE BY MOUTH EVERY ACTIVE DAY Non-VA ASPIRIN TAB 81MG MOUTH EVERY DAY ACTIVE Non-VA CHONDROITIN CAP/TAB 1 TABLET TWICE A DAY ACTIVE Non-VA GLUCOSAMINE CAP/TAB 1 TABLET TWICE A DAY ACTIVE Non-VA MULTIVITAMIN CAP/TAB 1 TABLET MOUTH EVERY DAY ACTIVE Over the Counter/Herbal Medications: The patient states that they take some outside medications and/or herbals. Depression Screening: Perform PHQ-2 A PHQ-2 screen was performed. The score was 0 which is a negative screen for depression. Over the past two weeks, how often have you been bothered by the following problems? 1. Little interest or pleasure in doing things Not at all 2. Feeling down, depressed, or hopeless Not at all Suicide Screen: C-SSRS Screening [place] Suicide Severity Rating Scale (C-SSRS) screener [...] required due to responses to other questions. Alcohol Use Screen (AUDIT-C): Alcohol Screen: SCREEN FOR ALCOHOL (AUDIT-C) An alcohol screening test (AUDIT-C) was negative (score=0). 1. How often did you have a drink containing alcohol in the past year? Never 2. How many drinks containing alcohol did you have on a typical day when you were drinking in the past year? Response not required due to responses to other questions. 3. How often did you have six or more drinks on one occasion in the past year? Response not required due to responses to other questions. Tobacco Use Screening: The patient is a former tobacco user. The patient quit fifteen or more years ago. Nursing Annual Screening: Fall History Screen During the past 12 months, have you had any falls? Patient does not report any falls in the past 12 months. MEDICATIONS: Patient is on one of the following medication classes: Antihypertensives, Antidepressants, Antipsychotics, Diuretics, or Controlled substance medication used for pain. FALL RISK ADVICE: Fall Risk Advice provided. Handout entitled Fall Prevention At Home reviewed and given to patient and/or significant other. Script Talk Screen Are you able to read your prescription bottles with your glasses, magnifiers or other aids? Yes or patient not taking any prescriptions. Skin Screen Patient reports any current pressure ulcers, a history of pressure ulcers, or a wound from a medical office rep or Patient is bed-confined or a wheelchair-user or Patient requires assistance to transfer/change position No, Skin Screen is Negative Home Abuse/Violence Screen Is your home free of abuse and violence? Yes MOVE! Program Screen Body Mass Index (BMI)= 33.4 [place]: Collection DT Specimen Test Name Result Units Ref Range 11/06/2016 07:02 BLOOD !! HEMOGLOBIN A1C 5.0 % 4.0 - 6.0 !! Indicates COMMENTS AVAILABLE...Refer to Interim Lab Report. [place] Hgb A1C: No data available [place] Hgb A1C: No data available Point of Care Hgb A1C: POC HGB A1C____ Outpatient Nutrition Screen Body Mass Index (BMI)= 33.4 [place]: Collection DT Specimen Test Name Result Units Ref Range 11/06/2016 07:02 BLOOD !! HEMOGLOBIN A1C 5.0 % 4.0 - 6.0 !! Indicates COMMENTS AVAILABLE...Refer to Interim Lab Report. [place] Hgb A1C: No data available [place] Hgb A1C: No data available Point of Care Hgb A1C: POC HGB A1C____ Is patient's BMI less than 18.5? No Does patient have swallowing, coughing, or chewing problems affecting oral intake? No Has patient experienced unplanned weight loss or gain greater than 10 pounds over the last 2 months? No Is patient's Hgb A1C (Glycosylated Hemoglobin) greater than 9.5? Information not available Is patient receiving Total Parenteral Nutrition (TPN) or Tube Feedings? No Patient Health Education Screen BARRIERS/SPECIAL NEEDS: No barriers identified PREFERRED STYLE OF LEARNING: No preference stated Client Assistive Service (BELINDA) Screen Does the patient require assistance with outpatient visit? No Toxic Exposure Screening: The [place]/caregiver was asked if they believe the experienced any toxic exposure(s), such as Airborne Hazards and Open Burn Pit, [place] War related exposures, Agent Sinai, Radiation, contaminated water at [place] or other such exposures, while serving in the [employer]. /caregiver believes the [place] was exposed to the following while serving in the [employer]: Agent Sinai: /caregiver was made aware of educational resources that includes information on the Registry Program, presumptive conditions and how to file a claim. Printed information was offered and provided if desired. No questions at this time [place]/caregiver was informed of local points of contact. Contact information for local resources: - Airborne Hazards and Burn Pit Exposures - Public Health ([place].gov) - Veterans Benefits for claims submission: Have the call or have them visit the following web address for online scheduling: [email or web address] - [place] Healthcare Enrollment: -VETS (3707) - Find a [place] Class C Driver (VSO): Have the call [phone] or look up their VSO at: [email or web address]-[email or web address] - [facility] Navigators: Dr. Marlo Adams: [phone] [email or web address] Dr. Gerber Butler: [phone] Toxic Exposure Screening Follow-Up reminder is needed. Name of person notified: COVID-19 Immunization Primary Series: Refuses all COVID-19 vaccines Immunization: SARS-COV-2 (COVID-19) VACCINE, UNSPECIFIED Refusal Reason: PATIENT DECISION Cancel Series and stop forecasting: Yes Patient refuses all immunization(s) in the COVID-19 group Date Documented: 05/10/22 08:50 Pneumococcal Conjugate Vaccine (PCV15/PCV20): Refuses PCV vaccine Immunization: PNEUMOCOCCAL CONJUGATE, UNSPECIFIED FORMULATION Refusal Reason: PATIENT DECISION Cancel Series and stop forecasting: Yes Patient refuses all immunization(s) in the PneumoPCV group Date Documented: 05/10/22 08:50 Herpes Zoster (Shingles) Vaccine: The patient declines to receive the recommended dose of zoster (shingles) vaccine. Immunization: ZOSTER RECOMBINANT Refusal Reason: PATIENT DECISION Cancel Series and stop forecasting: Yes Patient refuses all immunization(s) in the ZOSTER group Date Documented: 05/10/22 08:52 Influenza Immunization: The patient declines to receive the recommended dose of seasonal influenza vaccine. Immunization: INFLUENZA, UNSPECIFIED FORMULATION Refusal Reason: PATIENT DECISION Cancel Series and stop forecasting: Yes Patient refuses all immunization(s) in the FLU group Date Documented: 05/10/22 08:52 /sangita/ CORRY MCGRAW LPN, LPN Signed: 05/10/2022 08:52 CORRY MCGRAW [facility] May 10, 2022 07:45 AM INTERNAL MEDICINE NOTE: LOCAL TITLE: MEDICINE CLINIC NOTE STANDARD TITLE: INTERNAL MEDICINE NOTE DATE OF NOTE: MAY 10, 2022@07:45 ENTRY DATE: MAY 10, 2022@07:45:03 AUTHOR: JUANY WYNN EXP COSIGNER: URGENCY: STATUS: COMPLETED Nurse's notes reviewed from today. MARYJO WAGNER is a 71 year old MALE with the Follow up for annual HPI/ROS: doing ok. one week ago had mild discomfort both sides of the neck, laterally and persisted for 2 days then resolved, was mild discomfort. no neck pain on movement. no sore throat, fever, cough, nasal symptoms. has no pain at this time Active problems - Computerized Problem List is the source for the followin. OBESITY, UNSP 2. LIVER CHEM, ABNORMAL 3. Adjustment Disorder with Mixed Anxiety and Depressed Mood 4. Other and unspecified Sleep Apnea 5. Elevated Prostate Specific Antigen (PSA) 6. Dysmetabolic Syndrome X 7. Polyp of colon (SNOMED CT [id number]) - 2011, repeat in 7-10 years, see report 8. Malignant tumor of prostate (SNOMED CT [id number]) 9. Benign hypertension 10. Retention of urine 11. Malignant tumor of kidney parenchyma 12. Multinodular goiter 13. Secondary malignant neoplasm of pancreas Allergies: HAZELNUTS (Nov 21, 2002) Active and Recently Outpatient Medications (including Supplies): Active Outpatient Medications Status 1) CATHETER,SELF-CATH COUDE 14FR COLO#59590 USE CATHETER ACTIVE TOPICALLY DIRECTED 2) LISINOPRIL 20MG TAB TAKE ONE TABLET BY MOUTH EVERY ACTIVE DAY FOR BLOOD PRESSURE 3) LUBRICATING TOP JELLY BACTERIOSTATIC APPLY JELLY ACTIVE TOPICALLY DIRECTED 4) SODIUM FLUORIDE 1.1% TOOTHPASTE USE SMALL AMOUNT ACTIVE MOUTH EVERY MORNING AND AT BEDTIME ON TOOTHBRUSH, BRUSH FOR 2 MINUTES 5) TAMSULOSIN HCL 0.4MG CAP TAKE ONE CAPSULE BY MOUTH ACTIVE EVERY DAY Inactive Outpatient Medications Status 1) LISINOPRIL 10MG TAB TAKE ONE-HALF TABLET BY MOUTH DISCONTINUED EVERY DAY FOR BLOOD PRESSURE (EDIT) 2) LISINOPRIL 40MG TAB TAKE ONE-HALF TABLET BY MOUTH DISCONTINUED EVERY DAY FOR BLOOD PRESSURE (EDIT) 3) LISINOPRIL 40MG TAB TAKE ONE-HALF TABLET BY MOUTH DISCONTINUED EVERY DAY FOR BLOOD PRESSURE Active Non-VA Medications Status 1) Non-VA ASPIRIN TAB 81MG MOUTH EVERY DAY ACTIVE 2) Non-VA CHONDROITIN CAP/TAB 1 TABLET TWICE A DAY ACTIVE 3) Non-VA GLUCOSAMINE CAP/TAB 1 TABLET TWICE A DAY ACTIVE 4) Non-VA MULTIVITAMIN CAP/TAB 1 TABLET MOUTH EVERY DAY ACTIVE 12 Total Medications MEDICATION RECONCILIATION Outpatient At this visit I have reviewed the medication list, and discussed relevant medications with the patient/surrogate. An updated patient medication list was given to the participant(s). ( * ) No Change ( ) Change/New: I have noted this on the patient's copy of the medication list. Last Vital Signs: BP: 133/84 (05/10/2022 08:52) Heart Rate: 54 (05/10/2022 08:42) Respirations: 16 (05/10/2022 08:42)/min Temperature: 98.1 F [36.7 C] (02/14/2022 08:34) Pain: 2 (05/10/2022 08:42) BMI: 33.4 O2 Sat: 95% (05/10/2022 08:42) General Appearance: NAD Mental Status:alert Neck:supple. good ROM no LAD Chest/T Spine: Cardiac:s1s2 rrr JVP: Lungs:clear b/l Abdomen:soft NT Extremities: Edema ()None ()1+ ()2+ ()3+ ()4+ Pulses ()CUSTODIAL SERVICES MANAGER ()1+ ()2+ ()3+ ()4+ Gait: Nl Data/Labs: Pending Assessment and Plan: pmh metastatic kidney cancer (dx 2018 with biopsy) on observation, prostate cancer (dx 2017)on WW, and BPH with retention on CIC BID. 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 - oncology referral already done, though he does not want CTX - likely will need palliative referral # HTN- stable. cont lisinopril # bph- takes flomax. refill. # SANTHOSH- uses CPAP, Stable. # HM: - CRC screening -2011- Polyp - Adenoma, repeat in 2021. but overall prognosis is poor, hence no need for f/u - smoked cigars 40 years ago and quit. - quit drinking 20 yrs ago. no drugs. 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 Follow Up Colonoscopy: Colonoscopy is due based on information available to this reminder. Limited life expectancy <5 years or co-morbidities. I have discussed with the patient or guardian and we have made a shared decision against further screening and surveillance. Comment: metastatic RCC Toxic Exposure Screening Follow-Up: /caregiver has no health or medical concerns related to their concern of environmental exposure. The following connections were provided to the [place]/caregiver: [employer] [employer] Administration (VBA) for Benefits/claims: /sangita/ Juany Wynn MD Physician Signed: 05/10/2022 09:46 JUANY WYNN [facility]
--- OUTSIDE RECORDS SUMMARY | 2023-03-24 08:52 | XMS_ITS | Encounter Summary ---
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 of Vetera Affairs Address [address] [place] [address] Support Name Relationship Address Phone DOREEN WAGNER Next of Kin [address] [place] [phone] DOREEN Emergency Contact [address] [place] [phone] Insurance Providers: All historical and current [...] Policy [place] [employer] MCR (WNR) MEDICARE ADVANTAGE [facility] (R) June 26, 2016 [id number] JOAN WAGNER KARSTEN PATIENT [employer] MCR (WNR) MEDICARE ADVANTAGE [facility] (WNR) June 26, 2016 [id number] 15 JOAN WAGNER KARSTEN PATIENT [employer] MCR (WNR) MEDICARE ADVANTAGE [facility] (WNR) June 26, 2016 [id number] [phone] JOAN WAGNER PATIENT Selected Encounter This section includes the information on record at AL for the Encounter. Date/Time Encounter Type Encounter Description Reason Pro vider Source May 10, 2022 09:15 AM Outpatient Encounter PRIMARY CARE/MEDICINE E Encounter Template Text not used by AL Plan of Treatment: Future Appointments (+ 6 months) and Future Tests (+/- 45 days) The Plan of Treatment section includes future care activities for the patient from all AL treatmentfacilities. This section includes future appointments and future orders which are active, pending or scheduled. Future Appointments This section includes appointments that were scheduled to occur 6 months from the date of the Encounter, up to a maximum of 20 appointments. The data comes from all [facility]. Appointment Date/Time Appointment Type Appointme nt Facility Name May 17, 2022 08:00 AM AM[place]ORY [place] [facility] July 13, 2022 08:57 AM [facility] Jul 28, 2022 10:45 AM [place] [place] [facility] Aug 13, 2022 06:13 PM AM[place]UL[place]ORY [place]IC[place] [facility] Aug 23, 2022 09:30 AM [place] [facility] Aug 23, 2022 09:45 AM [place] [facility] Aug 23, 2022 10:30 AM [facility] Aug 23, 2022 10:31 AM [place]ORY [place] [facility] Sep 06, 2022 10:15 AM [place]UL[place]ORY [place] [facility] Oct 25, 2022 07:00 AM [place] [facility] Oct 25, 2022 07:30 AM AM[place]ORY [place] [facility] Oct 25, 2022 09:00 AM AMBULATORY - SUR[facility] Active, Pending, and Scheduled Orders This section includes a listing of several types of active, pending, and scheduled orders, including clinic medications orders, diagnostic test orders, procedure orders and consult orders; where the start date of the order is 45 days before the date of the Encounter or 45 days after the date of theEncounter. The data comes from all [facility]. Test Date/Time Test Type Test Details Facility Name May 22, 2022 12:00 AM Laboratory - Chemistry Order CBC & DIFF BLOOD ONCO SP ONCE [facility] May 22, 2022 12:00 AM Laboratory - Chemistry Order TSH W/REFLEX TO FREE T4 PLASMA ONCO SP [facility] May 22, 2022 12:00 AM Laboratory - Chemistry Order COMPREHENSIVE METABOLIC PANEL+MG PLASMA ONCO SP [facility] Jun 12, 2022 12:00 AM Laboratory - Chemistry Order CBC & DIFF BLOOD ONCO SP ONCE [facility] Jun 12, 2022 12:00 AM Laboratory - Chemistry Order COMPREHENSIVE METABOLIC PANEL+MG PLASMA ONCO SP ONCE [facility] Jun 12, 2022 12:00 AM Laboratory - Chemistry Order TSH W/REFLEX TO FREE T4 PLASMA ONCO SP ONCE [facility] Lab Results: +/- 30 days of [...] Range Comment May 10, 2022 08:54 AM [facility] PSA Specimen Type: SERUM No comment entered. Ordering Provider: JUANY WYNN Report Released Date/Time: May 11, 2021 09:37 AM Reporting Lab: [facility] [id number] Performing Lab: [facility] [address] PSA 8.25 H <4.00 May 10, 2022 08:54 AM [facility] BASIC METABOLIC PANEL+MG Specimen Type: PLASMA No comment entered. Ordering Provider: JUANY WYNN Report Released Date/Time: May 11, 2021 09:37 AM Reporting Lab: [facility] [id number] Performing Lab: [facility] [address] CREATININE 0.8 0.7-1.2 UREA NITROGEN 12 8-26 GLUCOSE 97 70-100 SODIUM 137 136-145 POTASSIUM 4.1 3.5-5.1 CHLORIDE 104 98-107 CO2 27 22-29 CALCIUM 9.1 8.4-10.2 MAGNESIUM 2.1 1.6-2.6 ANION GAP 6 5-15 CREAT EGFR(CKD-EPI ) >90 >60 Apr 13, 2022 01:46 PM [facility] POC CREATININE Specimen Type: BLOOD No comment entered. Ordering Provider: JUANY WYNN Report Released Date/Time: Apr 13, 2022 01:48 PM Reporting Lab: [facility] [address] Performing Lab: [facility] [address] POC CREATININE 1.0 0.6-1.3 Apr 13, 2022 11:22 AM [facility] PSA Specimen Type: SERUM No comment entered. Ordering Provider: MAX BOOGIE Report Released Date/Time: Oct 12, 2021 10:23 AM Reporting Lab: [facility] [place] [address] Performing Lab: [facility] [address] PSA 8.75 H <4.00 Vital Signs: All taken on the encounter date This section contains inpatient and outpatient Vital Signs collected on the date of the Encounter. Date/Time Temperature Pulse Blood Pressure Respiratory Rate SP02 Pain Height Weight Body Mass Index Source May 10, 2022 08:52 AM 133/84 mm[Hg] [facility] May 10, 2022 08:42 AM 54 /min 146/85 mm[Hg] 16 /min 95 % 2 246 lb 33 [facility] Social History: Smoking Status [...] 09:15 AM VA-TOBACCO FORMER USER [facility] Tobacco Use History This section [...] PM CT (CAP) CHEST/ABD/PELVIS (P): MARYJO WAGNER [id number] -1950 M Ex Date: APR 13, 2022@13:48 Req Phys: KELLY BOOGIE Pat Loc: [facility] UROL CHIEF RES.2V (Req'g L Img Loc: CT IMAGING Service: Unknown (Case [id number] COMPLETE) CT (CAP) CHEST W CONTRAST (CT Detailed) CPT:95373 Contrast Media : Non-ionic Iodinated Reason for Study: metastatic RCC surveillance (Case [id number] COMPLETE) CT (CAP) ABDOMEN/PELVIS W CONTRAS(CT Detailed) CPT:00406 Contrast Media : Non-ionic Iodinated Clinical History: metastatic RCC surveillance [place] IS NOT under investigation for COVID-19 or is COVID-19 negative Defer to radiologist for final CT protocol. Responsible provider name and phone number to notify for critical findings if other than user placing the order and pager listed below: User placing orders pager: [phone] LAST 3: Collection DT Specimen Test Name [...] PLASMA ESTIMATED GFR(eGF >60 Ref: >=60 Allergies: ([place] only) HAZELNUTS (Nov 21, 2002) Report Status: Verified Date Reported: APR 13, 2022 Date Verified: APR 13, 2022 White Lead Grinder E-Sig:/ES/CORBIN MORROW MD Report: EXAM: CT chest, [...] Primary Interpreting Staff: CORBIN MORROW MD, RADIOLOGIST (White Lead Grinder) Primary Interpreting Resident: JON BANUELOS, , PRACTICE OFFICE ASSOCIATE /SCOTTL CORBIN MORROW [facility] Encounter Notes: All associated encounter notes This section contains the clinical notes associated to the Encounter. Date/Time Encounter Note(s) Provider Source May 07, 2022 01:56 PM ADMINISTRATIVE NOT E: LOCAL TITLE: PRE VISIT SUMMARY NOTE STANDARD TITLE: ADMINISTRATIVE NOTE DICT DATE: MAY 07, 2022@13:56:06 ENTRY DATE: MAY 07, 2022@13:56:06 DICTATED BY: ODALIS NEAL COSIGNER: URGENCY: STATUS: COMPLETED INCLUDED IN THIS LIST: Alphabetical list of active outpatient prescriptions dispensed from this AL (local) and dispensed from another AL or [facility] facility (remote) as well as inpatient orders (local pending and active), local clinic medications, locally documented non-VA medications, and local prescriptions that have or been discontinued in the past 90 days. NOTE The display of VA prescriptions dispensed from another AL or DoD facility (remote) is limited to active outpatient prescription entries matched to National Drug File at the originating site and may not include some items such as investigational drugs, compounds, etc. MEDICATIONS Lisinopril 20mg Tab TAKE ONE TABLET BY MOUTH EVERY DAY FOR BLOOD PRESSURE Rx #: [id number] Pharmacy: [facility] Ordering Provider: RACHAEL GONZALEZ Status: ACTIVE Quantity: 90 for 90 days Refills Remainin Expires: Feb 09, 2023 Last Filled: Feb 08, 2022 Lisinopril 40mg Tab TAKE ONE-HALF TABLET BY MOUTH EVERY DAY FOR BLOOD PRESSURE Rx #: [id number] Pharmacy: [facility] Ordering Provider: GIOVANNI MANN Status: DISCONTINUED Quantity: 45 for 90 days Refills Remainin Expires: Jun 02, 2022 Discontinued: Feb 08, 2022 Last Filled: Feb 16, 2022 Lisinopril 40mg Tab TAKE ONE-HALF TABLET BY MOUTH EVERY DAY FOR BLOOD PRESSURE Rx #: [id number] Pharmacy: [facility] Ordering Provider: RACHAEL GONZALEZ Status: DISCONTINUED (EDIT) Quantity: 45 for 90 days Refills Remainin Expires: Feb 07, 2023 Discontinued: Feb 08, 2022 Last Filled: Requested on May 17, 2022 but not yet released. Lubricating Top Jelly Bacteriostatic APPLY JELLY TOPICALLY DIRECTED Rx #: [id number] Pharmacy: [facility] Ordering Provider: POLLY RIGGS Status: ACTIVE Quantity: 120 for 30 days Refills Remainin Expires: Sep 23, 2022 Last Filled: Sep 25, 2021 Sodium Fluoride 1.1% Toothpaste USE SMALL AMOUNT MOUTH EVERY MORNING AND AT BEDTIME ON TOOTHBRUSH, BRUSH FOR 2 MINUTES Rx #: [id number] Pharmacy: [facility] Ordering Provider: MAGO SCHWARZ Status: ACTIVE Quantity: 100 for 60 days Refills Remainin Expires: July 08, 2022 Last Filled: July 09, 2021 Tamsulosin Hcl 0.4mg Cap TAKE ONE CAPSULE BY MOUTH EVERY DAY Rx #: [id number] Pharmacy: [facility] Ordering Provider: JUANY WYNN Status: ACTIVE Quantity: 90 for 90 days Refills Remainin Expires: May 12, 2022 Last Filled: Nov 12, 2021 Aspirin Tab Sig: TAKE 81MG BY MOUTH EVERY DAY Comment: Non-VA medication that patient takes on their own. Documenting Facility & Provider: [facility]; [place] [facility] Chondroitin Cap/Tab Sig: TAKE 1 TABLET TWICE A DAY Comment: Non-VA medication not recommended by VA provider. Documenting Facility & Provider: [facility]; [facility] LORENZO Glucosamine Cap/Tab Sig: TAKE 1 TABLET TWICE A DAY Comment: Non-VA medication not recommended by VA provider. Documenting Facility & Provider: [facility]; [facility] Multivitamins Tab Sig: TAKE 1 TABLET BY MOUTH EVERY DAY Comment: Non-VA medication not recommended by AL provider. Documenting Facility & Provider: [facility]; [facility] Non-VA Meds Last Documented On: Mar 21, 2010 FOR NURSING USE ONLY: [] COLLAR STITCHER review of medications completed completed: printed list is correct: PUT THIS SHEET IN RED DOG. [] COLLAR STITCHER review of medications completed: corrections made below: PUT THIS SHEET IN RED DOG [] COLLAR STITCHER review of medications not completed: GIVE THIS SHEET TO PATIENT TO REVIEW END OF NURSING USE SECTION SCANNED DOCUMENT SIGNATURE NOT REQUIRED Electronically Filed: 05/07/2022 by: ODALIS NEAL,ODALIS [facility]
--- OUTSIDE RECORDS SUMMARY | 2023-03-24 08:52 | XMS_ITS | Encounter Summary ---
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 of Vetera [facility] Address [address] [place] [address] Support Name Relationship Address Phone DOREEN WAGNER Next of Kin [address] [place] [phone] DOREEN Emergency Contact [address] [place] [phone] Insurance Providers: All historical and current [...] [facility] June 26, 2016 [id number] JOAN WAGNER KARSTEN PATIENT [employer] MCR (WNR) MEDICARE ADVANTAGE [facility] (WNR) June 26, 2016 [id number] 15 JOAN WAGNER KARSTEN PATIENT [employer] MCR (WNR) MEDICARE ADVANTAGE [facility] (WNR) June 26, 2016 [id number] 15 JOAN WAGNER PATIENT Selected Encounter This section includes the information on record at [facility] for the Encounter. Date/Time Encounter Type Encounter Description Reason Pro vider Source May 10, 2022 12:00 AM Outpatient Encounter EVENT (HISTORICAL) [...] 20 appointments. The data comes from all [facility]. Appointment Date/Time Appointment Type Appointme nt Facility Name May 17, 2022 08:00 AM [place]ORY [place] [facility] July 13, 2022 08:57 AM [facility] Jul 28, 2022 10:45 AM [place]ORY [place]IC[place] [facility] Aug 13, 2022 06:13 PM AM[place]UL[place]ORY [place]IC[place] [facility] Aug 23, 2022 09:30 AM [place] [facility] Aug 23, 2022 09:45 AM [place] [facility] Aug 23, 2022 10:30 AM [facility] Aug 23, 2022 10:31 AM AM[place]ORY - [place]IC[place] [facility] Sep 06, 2022 10:15 AM AM[place]UL[place]ORY [place] [facility] Oct 25, 2022 07:00 AM [place] [facility] Oct 25, 2022 07:30 AM AM[place]ORY [place] [facility] Oct 25, 2022 09:00 AM AM[facility]ORY [facility] SUR[facility] Active, Pending, and Scheduled Orders This section includes a listing of several types of active, pending, and scheduled orders, including clinic medications orders, diagnostic test orders, procedure orders and consult orders; where the start date of the order is 45 days before the date of the Encounter or 45 days after the date of theEncounter. The data comes from all [facility]. Test Date/Time Test Type Test Details Facility Name May 22, 2022 12:00 AM Laboratory - Chemistry Order CBC & DIFF BLOOD ONCO SP ONCE [facility] May 22, 2022 12:00 AM Laboratory - Chemistry Order TSH W/REFLEX TO FREE T4 PLASMA ONCO SP [facility] May 22, 2022 12:00 AM Laboratory - Chemistry Order COMPREHENSIVE METABOLIC PANEL+MG PLASMA ONCO SP [facility] Jun 12, 2022 12:00 AM Laboratory - Chemistry Order CBC & DIFF BLOOD ONCO SP ONCE [facility] Jun 12, 2022 12:00 AM Laboratory - Chemistry Order COMPREHENSIVE METABOLIC PANEL+MG PLASMA ONCO SP ONCE [facility] Jun 12, 2022 12:00 AM Laboratory - Chemistry Order TSH W/REFLEX TO FREE T4 PLASMA ONCO SP ONCE [facility] Lab Results: +/- 30 days [...] Comment May 10, 2022 08:[address] [facility] PSA Specimen Type: SERUM No comment entered. Ordering Provider: JUANY WYNN Report Released Date/Time: May 11, 2021 09:37 AM Reporting Lab: [facility] [address] Performing Lab: [facility] [address] PSA 8.25 H <4.00 May 10, 2022 08:[address] [facility] BASIC METABOLIC PANEL+MG Specimen Type: PLASMA No comment entered. Ordering Provider: JUANY WYNN Report Released Date/Time: May 11, 2021 09:37 AM Reporting Lab: [facility] [address] Performing Lab: [facility] [address] CREATININE 0.8 0.7-1.2 UREA NITROGEN 12 8-26 GLUCOSE 97 70-100 SODIUM 137 136-145 POTASSIUM 4.1 3.5-5.1 CHLORIDE 104 98-107 CO2 27 22-29 CALCIUM 9.1 8.4-10.2 MAGNESIUM 2.1 1.6-2.6 ANION GAP 6 5-15 CREAT EGFR(CKD-EPI ) >90 >60 Apr 13, 2022 01:[address] [facility] POC CREATININE Specimen Type: BLOOD No comment entered. Ordering Provider: JUANY WYNN Report Released Date/Time: Apr 13, 2022 01:48 PM Reporting Lab: [facility] [address] Performing Lab: [facility] [address] POC CREATININE 1.0 0.6-1.3 Apr 13, 2022 11:[address] [facility] PSA Specimen Type: SERUM No comment entered. Ordering Provider: MAX BOOGIE Report Released Date/Time: Oct 12, 2021 10:23 AM Reporting Lab: [facility] [place] [address] Performing Lab: [facility] [address] PSA 8.75 H <4.00 Vital Signs: All taken on the encounter date This section contains inpatient and outpatient Vital Signs collected on the date of the Encounter. Date/Time Temperature Pulse Blood Pressure Respiratory Rate SP02 Pain Height Weight Body Mass Index Source May 10, 2022 08:52 AM 133/84 mm[Hg] [facility] May 10, 2022 08:42 AM 54 /min 146/85 mm[Hg] 16 /min 95 % 2 246 lb 33 [facility] Social History: Smoking [...] PM CT (CAP) CHEST/ABD/PELVIS (P): MARYJO WAGNER [id number] -1950 M Ex Date: APR 13, 2022@13:48 Req Phys: KELLY BOOGIE Pat Loc: [facility] UROL CHIEF RES.2V (Req'g L Img Loc: CT IMAGING Service: Unknown (Case [id number] COMPLETE) CT (CAP) CHEST W CONTRAST (CT Detailed) CPT:32971 Contrast Media : Non-ionic Iodinated Reason for Study: metastatic RCC surveillance (Case [id number] COMPLETE) CT (CAP) ABDOMEN/PELVIS W CONTRAS(CT Detailed) CPT:77871 Contrast Media : Non-ionic Iodinated Clinical History: metastatic RCC surveillance [place] IS NOT under investigation for COVID-19 or is COVID-19 negative Defer to radiologist for final CT protocol. Responsible provider name and phone number to notify for critical findings if other than user placing the order and pager listed below: User placing orders pager: [phone] LAST 3: Collection DT Specimen Test Name [...] PLASMA ESTIMATED GFR(eGF >60 Ref: >=60 Allergies: ([place] only) HAZELNUTS (Nov 21, 2002) Report Status: Verified Date Reported: APR 13, 2022 Date Verified: APR 13, 2022 Wheel Press Operator E-Sig:/ES/CORBIN MORROW MD Report: EXAM: CT chest, [...] Primary Interpreting Staff: CORBIN MORROW MD, RADIOLOGIST (Wheel Press Operator) Primary Interpreting Resident: JON BANUELOS, , VAN DRIVER /SCOTTL CORBIN MORROW [facility]
--- OUTSIDE RECORDS SUMMARY | 2023-03-24 08:52 | XMS_ITS | Encounter Summary ---
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 of Vetera ns Affairs Address [address] [place] [address] Support Name Relationship Address Phone DOREEN WAGNER Next of Kin [phone] [place] [phone] DOREEN Emergency Contact [phone] [place] [phone] Insurance Providers: All historical and current [...] [place]'s Name Patient's Relationship to Policy [place] [facility] ([facility]) MEDICARE [facility] ([facility]) June 26, 2016 [id number] JOAN WAGNER PATIENT HUMANA MCR (WNR) MEDICARE ADVANTAGE [facility] ([facility]) June 26, 2016 [id number] [phone] [id number] CARSONLELIAJOAN KARSTEN PATIENT HUMANA MCR (WNR) MEDICARE ADVANTAGE [facility] ([facility]) June 26, 2016 [id number] JOAN WAGNER KARSTEN PATIENT Selected Encounter This section includes the information on record at [place] for the Encounter. Date/Time Encounter Type Encounter Description Reason Provider Source May 17, 2022 08:00 AM OFF/OP CONSLTJ NEW/EST HI 55 ONCOLOGY/TUMOR ICD-10-CM C64.2 Malignant neoplasm of left kidney, except renal pelvis YANETH RENTERIA Encounter Template Text not used by [place] Assessments - Encounter Diagnoses This section includes the primary and secondary diagnoses documented for the Encounter. Date/Time Primary/Secondary Diagnosis Diagnosis Name Provider Source May 18, 2022 07:55 AM PRIMARY Malignant neoplasm of left kidney, except renal pelvis YANETH RENTERIA [facility] May 18, 2022 07:55 AM SECONDARY Malignant neoplasm of prostate YANETH RENTERIA [facility] Plan of Treatment: Future Appointments (+ 6 months) and Future Tests (+/- 45 days) The Plan of Treatment section includes future care activities for the patient from all [place] [facility]. This section includes future appointments and future orders which are active, pending or scheduled. Future Appointments This section includes appointments that were scheduled to occur 6 months from the date of the Encounter, up to a maximum of 20 appointments. The data comes from all [facility]. Appointment Date/Time Appointment Type Appointme nt Facility Name July 13, 2022 08:57 AM AMBULATORY - MEDICINE [facility] Jul 28, 2022 10:45 AM AMBULATORY - MEDICINE [facility] Aug 13, 2022 06:13 PM AMBULATORY - MEDICINE [facility] Aug 23, 2022 09:30 AM AMBULATORY - SURGERY [facility] Aug 23, 2022 09:45 AM AMBULATORY - NONE [facility] Aug 23, 2022 10:30 AM AMBULATORY - MEDICINE [facility] Aug 23, 2022 10:31 AM AMBULATORY - MEDICINE [facility] Sep 06, 2022 10:15 AM AMBULATORY - SURGERY [facility] Oct 25, 2022 07:00 AM AMBULATORY - NONE [facility] Oct 25, 2022 07:30 AM AMBULATORY - SURGERY [facility] Oct 25, 2022 09:00 AM AMBULATORY - SURGERY [facility] Active, Pending, and Scheduled Orders This section includes a listing of several types of active, pending, and scheduled orders, including clinic medications orders, diagnostic test orders, procedure orders and consult orders; where the start date of the order is 45 days before the date of the Encounter or 45 days after the date of theEncounter. The data comes from all [facility]. Test Date/Time Test Type Test Details Facility Name May 22, 2022 12:00 AM Laboratory - Chemistry Order COMPREHENSIVE METABOLIC PANEL+MG PLASMA ONCO SP [facility] May 22, 2022 12:00 AM Laboratory - Chemistry Order TSH W/REFLEX TO FREE T4 PLASMA ONCO SP [facility] May 22, 2022 12:00 AM Laboratory - Chemistry Order CBC & DIFF BLOOD ONCO SP ONCE [facility] Jun 12, 2022 12:00 AM Laboratory - Chemistry Order CBC & DIFF BLOOD ONCO SP ONCE [facility] Jun 12, 2022 12:00 AM Laboratory - Chemistry Order COMPREHENSIVE METABOLIC PANEL+MG PLASMA ONCO SP ONCE [facility] Jun 12, 2022 12:00 AM Laboratory - Chemistry Order TSH W/REFLEX TO FREE T4 PLASMA ONCO SP ONCE [facility] Lab Results: +/- 30 [...] Range Comment May 10, 2022 08:54 AM [facility] PSA Specimen Type: SERUM No comment entered. Ordering Provider: JUANY WYNN Report Released Date/Time: May 11, 2021 09:37 AM Reporting Lab: [facility] [id number] Performing Lab: [facility] [id number] PSA 8.25 H <4.00 May 10, 2022 08:54 AM [facility] BASIC METABOLIC PANEL+MG Specimen Type: PLASMA No comment entered. Ordering Provider: JUANY WYNN Report Released Date/Time: May 11, 2021 09:37 AM Reporting Lab: [facility] [id number] Performing Lab: [facility] [id number] CREATININE 0.8 0.7-1.2 UREA NITROGEN 12 8-26 GLUCOSE 97 70-100 SODIUM 137 136-145 POTASSIUM 4.1 3.5-5.1 CHLORIDE 104 98-107 CO2 27 22-29 CALCIUM 9.1 8.4-10.2 MAGNESIUM 2.1 1.6-2.6 ANION GAP 6 5-15 CREAT EGFR(CKD-EPI ) >90 >60 Vital Signs: All taken on the encounter date This section contains inpatient and outpatient Vital Signs collected on the date of the Encounter. Date/Time Temperature Pulse Blood Pressure Respiratory Rate SP02 Pain Height Weight Body Mass Index Source May 17, 2022 07:44 AM 98.6 F 64 /min 133/74 mm[Hg] 16 /min 96 % 0 72 in 249.9 lb 34 SAKINAAP [facility] Social History: Smoking Status (Most [...] 10, 2022 09:15 AM VA-TOBACCO FORMER USER [facility] Tobacco Use History This section includes a history of the smoking, or tobacco-related health factors, that were collected on or before the date of the Encounter. The data comes from the [place] facility where the Encounter took place. Date/Time Smoking Status/Tobacco Use Comment F acility May 10, 2022 09:15 AM VA-TOBACCO QUIT 15 YRS OR MORE [facility] May 11, 2021 09:15 AM VA-TOBACCO FORMER USER [facility] May 11, 2021 09:15 AM VA-TOBACCO QUIT 15 YRS OR MORE [facility] Nov 22, 2018 01:36 PM VA-TOBACCO NEVER USED [facility] Nov 12, 2017 07:35 AM FORMER TOBACCO USER 7Y OR GREATE R [facility] Nov 06, 2016 09:05 AM FORMER TOBACCO USER 7Y OR GREATE R [facility] Sep 27, 2015 09:42 AM FORMER TOBACCO USER 7Y OR GREATE R [facility] Sep 25, 2014 07:55 AM FORMER TOBACCO USER 7Y OR GREATE R [facility] Sep 08, 2013 07:48 AM FORMER TOBACCO USER 7Y OR GREATE R [facility] July 09, 2012 09:20 AM FORMER TOBACCO USE >1Y <7Y [facility] Jun 06, 2011 07:53 AM FORMER TOBACCO USE >1Y <7Y [facility] Sep 09, 2009 03:03 PM FORMER TOBACCO USE >1Y <7Y [facility] Aug 11, 2008 01:06 PM FORMER TOBACCO USE <1Y [facility] Sep 19, 2007 02:52 PM CURRENT TOBACCO USER [facility] Sep 03, 2006 03:32 PM CURRENT TOBACCO USER [facility] Advance Directives: All historical and current [...] Provider Source Mar 18, 2003 ADVANCE DIRECTIVE MELGARFARHATVERITO [facility] Encounter Notes: All associated encounter notes This section contains the clinical notes associated to the Encounter. Date/Time Encounter Note(s) Provider Source May 17, 2022 09:07 AM HEMATOLOGY AND ONCOLOGY CONSULT: LOCAL TITLE: HEM/ONC/COAG CONSULT STANDARD TITLE: HEMATOLOGY AND ONCOLOGY CONSULT DATE OF NOTE: MAY 17, 2022@09:07 ENTRY DATE: MAY 17, 2022@09:07:30 AUTHOR: DE MASON COSIGNER: URGENCY: STATUS: COMPLETED HEM/ONC/COAG CONSULT Has ADDENDA Reason for consult: Metastatic RCC History of present illness: is a 71-year-old male with history of Prostrate cancer since 2017 on surveillance, Metastatic clear cell RCC biopsy diagnosed in 2018 declined treatment and has been on observation with surveillance scans following with urology, prostate cancer (dx 2017)on [facility]. he presents today referred by urology for further management given recent disease progression on scans. Patient is here with . He denies weight loss, bone pain. Nausea or vomitting,.Anorexia or hematuria. He is overall feeling very well. PAST MEDICAL HISTORY: Active problems - Computerized Problem List is the source for the followin. OBESITY, UNSP 2. LIVER CHEM, ABNORMAL 3. Adjustment Disorder with Mixed Anxiety and Depressed Mood 4. Other and unspecified Sleep Apnea 5. Elevated Prostate Specific Antigen (PSA) 6. Dysmetabolic Syndrome X 7. Polyp of colon (SNOMED CT [id number]) - 2011, repeat in 7-10 years, see report 8. Malignant tumor of prostate (SNOMED CT 375773484) 9. Benign hypertension 10. Retention of urine 11. Malignant tumor of kidney parenchyma 12. Multinodular goiter 13. Secondary malignant neoplasm of pancreas ALLERGIES Reviewed: CHINMAY (Nov 21, 2002) Medications reviewed: Active Outpatient Medications (including Supplies): Active Outpatient Medications Status 1) CATHETER,SELF-CATH COUDE 14FR COLO#[id number] USE CATHETER ACTIVE TOPICALLY DIRECTED 2) LISINOPRIL [...] CAP/TAB 1 TABLET MOUTH EVERY DAY ACTIVE 8 Total Medications FAMILY HISTORY: Non contributory SOCIAL HISTORY: Quit smoking 40 years ago Quit alcohol 20 years ago Denies recreational drugs. REVIEW OF SYSTEMS: All other systems are negative except what was mentioned in the history of present illness. PHYSICAL EXAMINATION: VITAL SIGNS: Tempreture:98.6 F [37.0 C] (05/17/2022 07:44), BP: 133/74 (05/17/2022 07:44), HR: 64 (05/17/2022 07:44), RR: 16 (05/17/2022 07:44), Weight: 249.9 lb [113.35 kg] (05/17/2022 07:44) GENERAL APPEARANCE: NAD. HEENT: PERRL, EOMI. Oral cavity and pharynx normal. MMM NECK: supple, non-tender without lymphadenopathy, masses or thyromegaly. HEART: Nl S1, S2. No murmurs. RRR. LUNGS: CTAB without rales, rhonchi, wheezing. ABDOMEN: +BS. Soft, NT, ND. No guarding or rebound. No masses. ESTREMITIES: Warm, no edema, cyanosis or pallor. NEUROLOGICAL: CN II-XII intact. Strength and sensation symmetric and intact throughout. SKIN: Skin normal color, texture and turgor with no lesions or eruptions. Labs Reviewed with patient: Hg trend: HGB - NONE FOUND BMP POTASSIUM 4.1 (05/10/22) CO2 27 (05/10/22) UREA NITROGEN 12 (05/10/22) CREATININE 0.8 (05/10/22) CALCIUM 9.1 (05/10/22) PSA: PSA 8.25 H SERUM (05/10/22 08:54) 8.75 H SERUM (04/13/22 11:22) 8.26 H SERUM (10/12/21 07:37) 7.11 H SERUM (05/11/21 07:57) 7.11 H SERUM (03/21/21 08:07) 7.05 H SERUM (09/09/20 13:35) 6.27 H SERUM (03/17/20 09:04) 5.71 H SERUM (09/24/19 09:16) IMAGING Reviewed with patient: CT CAP 04/13/22: FINDINGS: LOWER NECK:Partially imaged thyroid, with redemonstration [...] technically indeterminant. Recommend attention on subsequent surveillance. Performance Status ECOG = 1 ASSESSMENT: # Metastatic Renal Cell Carcinoma 8.9 x 8.8 x 5.0 cm exophytic renal cell carcinoma Left, with mets to the right kidney, pancrease, right adrenal gland, tiny pulmonary nodules. Patient is adamant about not wanting to receive any form of chemotherapy including targeted therapy. He beleives that chemotherapy does no good and more harm and has killed many people and if mainly sold by [employer] companies for profit. We discussed at length the fact that he has had significant disease progression with increased disease burden and that systemic treatment is recommended in his case. We explained the different treatment options including combination of targeted therapy and immunotherapy based on his probable intermediate risk disease. Discussed the benefits, risks, potential side effects of Axitinib plus Pembrolizumab. Patient voiced understanding but states that he does not want to take Axitinib as it is a form of chemotherapy despite being a targeted therapy. We again went over the mechanism of action and possible side effects and the fact that studies have shown great benefit from a combination of Axitinib plus Pembrolizumab in metastatic RCC. Patient continued to decline Axitiib. We presented the fact that single drug immunotherapy will be sub-optimal for his disease burden but we could try it if he doesn't want any targeted therapy.= and patient said if that's the case, he will not want to take single drug immunotherapy either omaira it will be no good. We presented the option of dual immunotherapy with ipilimumab plus Nivolumab. We explained the higher risk of side effects with dual immunotherapy including pneumonitis, enteritis, thyroiditis, and other irAEs. Patient voiced understanding and consented to dual immunotherapy with ipilimumab plus Nivolumab. - RTC in 2 weeks with labs including CBC, CMP, TSH with plans for C1 of Ipilimumab/Nivolumab - Patient given documentation for Axitinib/Pembrolizumab, to call the clinic if he changes his mind and will like to consider this instead. RECOMMENDATIONS - RTC in 2 weeks with labs including CBC, CMP, TSH with plans for C1 of Ipilimumab/Nivolumab - Patient given documentation for Axitinib/Pembrolizumab, to call the clinic if he changes his mind and will like to consider this instead. - Plan to do re-staginf scan after ~3 cycles to assess treatment effects. 80 min spent with patient, with greater than 50% in patient education, counselling, management and coordination of care. Patient seen and discussed with Dr. Renteria /sangita/ DE MASON MD HEMATOLOGY/ONCOLOGY FELLOW Signed: 05/17/2022 17:45 Receipt Acknowledged By: 05/18/2022 07:55 /sangita/ WES RENTERIA PHYSICIAN 05/18/2022 ADDENDUM STATUS: COMPLETED Patient with metastatic clear cell renal carcinoma with significant disease progression on surveillance. Long discussion regarding the importance of starting treatment yessi. Patient has strong beliefs against chemotherapy including TKI's, expresses distrust in the medical system/pharma/[place]/doctors and believes that doctors are recommedning treatmnet for profit. agrees with his thoughts. Clarified all misunderstandings to the best of my ability and reiterated that he has the final decision re: choice to pursue treatment. After much thought and discussions with and us, he wanted to try dual IO with ipi + nivo. Extensively reviewed all side effects. Discussed that given likely favorable-intermediate risk disease (pending CBC assesment) with extensive tumor burden, favor TKI + IO but he refuses that regimen. Will plan to start ipi + nivo on May 22. /sangita/ WES RENTERIA PHYSICIAN Signed: 05/18/2022 08:04 DE MASON [facility] May 17, 2022 07:44 AM INTERNAL MEDICINE OUTPATIENT NOTE: LOCAL TITLE: MEDICINE CLINIC NURSING NOTE STANDARD TITLE: INTERNAL MEDICINE OUTPATIENT NOTE DATE OF NOTE: MAY 17, 2022@07:44 ENTRY DATE: MAY 17, 2022@07:45 AUTHOR: AARON ORANTES COSIGNER: URGENCY: STATUS: COMPLETED TYPE OF VISIT: Appointment Check In Type of appointment: In-person appointment REASON FOR VISIT: Scheduled ALLERGIES: HAZELNUTS (Nov 21, 2002) VITAL SIGNS: Blood Pressure: 133/74 (05/17/2022 07:44) Pulse: 64 (05/17/2022 07:44) Respiration: 16 (05/17/2022 07:44) Temperature: 98.6 F [37.0 C] (05/17/2022 07:44) Weight: 249.9 lb [113.35 kg] (05/17/2022 07:44) Height: 72 in [182.9 cm] (05/17/2022 07:44) BMI: 34.0 O2 Sat: 96% (05/17/2022 07:44) Pain: 0 (05/17/2022 07:44) PAIN SCREEN: Patient is not having significant pain that they wish to discuss with their provider today. MEDICATION Over the Counter/Herbal Medications: The patient states that they take some outside medications and/or herbals. Hematology/Oncology Clinic Distress Thermometer: Distress Thermometer Screening completed: Patient rates distress level at: Score=3 Does the have any concerns with the following: /sangita/ AARON ORANTES LPN, LPN Signed: 05/17/2022 07:45 Receipt Acknowledged By: * AWAITING SIGNATURE * BRYANT MALAGON LYDIA A [facility]
--- OUTSIDE RECORDS SUMMARY | 2023-03-24 08:53 | XMS_ITS | Encounter Summary ---
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 of Vetera Affairs Address [address] [place] [address] Support Name Relationship Address Phone DOREEN WAGNER Next of Kin [address] [place] [phone] DOREEN Emergency Contact [address] [place] [phone] Insurance Providers: All historical and current [...] [place] HUMANA MCR (WNR) MEDICARE ADVANTAGE [facility] (WNR) June 26, 2016 [id number] CARSONJOAN ROWELL PATIENT HUMANA MCR (WNR) MEDICARE ADVANTAGE [facility] (WNR) June 26, 2016 [id number] BERNARDJOAN KARSTEN PATIENT HUMANA MCR (WNR) MEDICARE ADVANTAGE [facility] (WNR) June 26, 2016 [id number] 15 JOAN WAGNER PATIENT Selected Encounter This section includes the [place] at [place] for the Encounter. Date/Time Encounter Type Encounter Description Reason Pro vider Source May 22, 2022 10:30 AM Outpatient Encounter ONCOLOGY/TUMOR IHE Encounter Template Text not used by [...] 20 appointments. The data comes from all [facility]. Appointment Date/Time Appointment Type Appointme nt Facility Name July 13, 2022 08:57 AM [place] [place] [facility] Jul 28, 2022 10:45 AM [facility] Aug 13, 2022 06:13 PM [place] [facility] Aug 23, 2022 09:30 AM [place] [facility] Aug 23, 2022 09:45 AM [place] [facility] Aug 23, 2022 10:30 AM [place] [facility] Aug 23, 2022 10:31 AM [place] [place] [facility] Sep 06, 2022 10:15 AM AMBULATORY [place] [facility] Oct 25, 2022 07:00 AM [place] [facility] Oct 25, 2022 07:30 AM AM[facility]ULATORY - SURGERY [facility] [place] [facility] Oct 25, 2022 09:00 AM AMBULATORY - SURGERY [facility] Active, Pending, and Scheduled Orders This section includes a listing of several types of active, pending, and scheduled orders, including clinic medications orders, diagnostic test orders, procedure orders and consult orders; where the start date of the order is 45 days before the date of the Encounter or 45 days after the date of theEncounter. The data comes from all [facility]. Test Date/Time Test Type Test Details Facility Name May 22, 2022 12:00 AM Laboratory - Chemistry Order CBC & DIFF BLOOD ONCO SP ONCE [facility] May 22, 2022 12:00 AM Laboratory - Chemistry Order TSH W/REFLEX TO FREE T4 PLASMA ONCO SP [facility] May 22, 2022 12:00 AM Laboratory - Chemistry Order COMPREHENSIVE METABOLIC PANEL+MG PLASMA ONCO SP [facility] Jun 12, 2022 12:00 AM Laboratory - Chemistry Order CBC & DIFF BLOOD ONCO SP ONCE [facility] Jun 12, 2022 12:00 AM Laboratory - Chemistry Order COMPREHENSIVE METABOLIC PANEL+MG PLASMA ONCO SP ONCE [facility] Jun 12, 2022 12:00 AM Laboratory - Chemistry Order TSH W/REFLEX TO FREE T4 PLASMA ONCO SP ONCE [facility] Lab Results: +/- 30 days [...] Range Comment May 10, 2022 08:54 AM [facility] PSA Specimen Type: SERUM No comment entered. Ordering Provider: JUANY WYNN Report Released Date/Time: May 11, 2021 09:37 AM Reporting Lab: [facility] [id number] Performing Lab: [facility] [id number] PSA 8.25 H <4.00 May 10, 2022 08:54 AM [facility] BASIC METABOLIC PANEL+MG Specimen Type: PLASMA No comment entered. Ordering Provider: JUANY WYNN Report Released Date/Time: May 11, 2021 09:37 AM Reporting Lab: [facility] [id number] Performing Lab: [facility] [id number] CREATININE 0.8 0.7-1.2 UREA NITROGEN 12 8-26 GLUCOSE 97 70-100 SODIUM 137 136-145 POTASSIUM 4.1 3.5-5.1 CHLORIDE 104 98-107 CO2 27 22-29 CALCIUM 9.1 8.4-10.2 MAGNESIUM 2.1 1.6-2.6 ANION GAP 6 5-15 CREAT EGFR(CKD-EPI ) >90 >60 Social History: Smoking Status (Most current) [...] 10, 2022 09:15 AM VA-TOBACCO FORMER USER [facility] Tobacco Use History This section includes a history of the smoking, or tobacco-related health factors, that were collected on or before the date of the Encounter. The data comes from the [place] facility where the Encounter took place. Date/Time Smoking Status/Tobacco Use Comment F acility May 10, 2022 09:15 AM VA-TOBACCO QUIT 15 YRS OR MORE [facility] May 11, 2021 09:15 AM VA-TOBACCO FORMER USER [facility] May 11, 2021 09:15 AM VA-TOBACCO QUIT 15 YRS OR MORE [facility] Nov 22, 2018 01:36 PM VA-TOBACCO NEVER USED [facility] Nov 12, 2017 07:35 AM FORMER TOBACCO USER 7Y OR GREATE R [facility] Nov 06, 2016 09:05 AM FORMER TOBACCO USER 7Y OR GREATE R [facility] Sep 27, 2015 09:42 AM FORMER TOBACCO USER 7Y OR GREATE R [facility] Sep 25, 2014 07:55 AM FORMER TOBACCO USER 7Y OR GREATE R [facility] Sep 08, 2013 07:48 AM FORMER TOBACCO USER 7Y OR GREATE R [facility] July 09, 2012 09:20 AM FORMER TOBACCO USE >1Y <7Y [facility] Jun 06, 2011 07:53 AM FORMER TOBACCO USE >1Y <7Y [facility] Sep 09, 2009 03:03 PM FORMER TOBACCO USE >1Y <7Y [facility] Aug 11, 2008 01:06 PM FORMER TOBACCO USE <1Y [facility] Sep 19, 2007 02:52 PM CURRENT TOBACCO USER [facility] Sep 03, 2006 03:32 PM CURRENT TOBACCO USER [facility] Advance Directives: All historical and current Section Date Range: From patient's date of to the date document was created. This section includes ALL of a patient's completed or amended [place] Advance and Rescinded Directives. The entries below indicate that a directive exists for the patient, but an actual copy is not included with this document. The data comes from all [place] facilities. Date Advance Directives Provider Source Mar 18, 2003 ADVANCE DIRECTIVE F[address]HAT MELGAR [facility] Encounter Notes: All associated encounter notes This section contains the clinical notes associated to the Encounter. Date/Time Encounter Note(s) Provider Source May 17, 2022 10:12 AM REPORT OF CONTACT: LOCAL TITLE: APPOINTMENT SCHEDULING NOTE STANDARD TITLE: REPORT OF CONTACT DATE OF NOTE: MAY 17, 2022@10:12 ENTRY DATE: MAY 17, 2022@10:12:51 AUTHOR: LEIF LOVE EXP COSIGNER: URGENCY: STATUS: COMPLETED New Order entered by DE MASON (FELLOW) Order Text: HEM/ONC PROCEDURE TO SCHEDULE : Procedure type: Chemotherapy treatments Ipilimumab + Nivolumab Chemo cycle includes: Day 1 PID (first day of next cycle): Apr Time Sensitive Appt: MUST occur NO later than end of return interval above: No Provider: I called Mr. Wagner and he is okay with all the appointment we made for next sunday. /sangita/ LEIF LOVE [employer] EQUIPMENT ENGINE MECHANIC Signed: 05/17/2022 10:13 LEIF LOVE [facility]
--- OUTSIDE RECORDS SUMMARY | 2023-03-24 08:53 | XMS_ITS | Encounter Summary ---
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 of Vetera [facility] Address [address] [place] [address] Support Name Relationship Address Phone DOREEN WAGNER Next of Kin [address] [place] [phone] DOREEN Emergency Contact [address] [place] [phone] Insurance Providers: All historical and current [...] Policy [place] [employer] [facility] (WNR) MEDICARE ADVANTAGE [facility] (WNR) June 26, 2016 [id number] JOAN WAGNER KARSTEN PATIENT [employer] M[employer] (WNR) MEDICARE ADVANTAGE [facility] (WNR) June 26, 2016 [id number] [phone] JOAN WAGNER KARSTEN PATIENT [employer] M[employer] (WNR) MEDICARE ADVANTAGE [facility] (WNR) June 26, 2016 [id number] JOAN WAGNER PATIENT Selected Encounter This section includes the information on record at [place] for the Encounter. Date/Time Encounter Type Encounter Description Reason Pro vider Source May 17, 2022 09:19 AM Outpatient Encounter EVENT (HISTORICAL) IHE Encounter Template Text not used by [place] Plan of Treatment: Future Appointments (+ 6 [...] 20 appointments. The data comes from all [facility]. Appointment Date/Time Appointment Type Appointme nt Facility Name July 13, 2022 08:57 AM AMBULATORY - [place]ICINE [place] [facility] Jul 28, 2022 10:45 AM [facility] Aug 13, 2022 06:13 PM [place] - [place]IC[place] [facility] Aug 23, 2022 09:30 AM AMBUL[place]ORY - [place] [facility] Aug 23, 2022 09:45 AM AMBULATORY - NONE [place] [facility] Aug 23, 2022 10:30 AM [facility] Aug 23, 2022 10:31 AM [facility] Sep 06, 2022 10:15 AM [place]UL[place] [place] [facility] Oct 25, 2022 07:00 [facility] Oct 25, 2022 07:30 AM [facility] Oct 25, 2022 09:00 AM AMBULATORY [...] of theEncounter. The data comes from all [facility]. Test Date/Time Test Type Test Details Facility Name May 22, 2022 12:00 AM Laboratory - Chemistry Order CBC & DIFF BLOOD ONCO SP ONCE [facility] May 22, 2022 12:00 AM Laboratory - Chemistry Order TSH W/REFLEX TO FREE T4 PLASMA ONCO SP [facility] May 22, 2022 12:00 AM Laboratory - Chemistry Order COMPREHENSIVE METABOLIC PANEL+MG PLASMA ONCO SP [facility] Jun 12, 2022 12:00 AM Laboratory - Chemistry Order COMPREHENSIVE METABOLIC PANEL+MG PLASMA ONCO SP ONCE [facility] Jun 12, 2022 12:00 AM Laboratory - Chemistry Order CBC & DIFF BLOOD ONCO SP ONCE [facility] Jun 12, 2022 12:00 AM Laboratory - Chemistry Order TSH W/REFLEX TO FREE T4 PLASMA ONCO SP [facility] Lab Results: +/- 30 days of the encounter This section includes the Chemistry and Hematology Lab Results on record with [place] for the patient. Radiology Reports and Pathology Reports are provided separately, in subsequent sections. Lab Results This section contains the Chemistry/Hematology Results that were resulted 30 days before or 30 daysafter the date of the Encounter. Date/Time Source Result Type Result - Unit Interpretation Reference Range Comment May 10, 2022 08:54 AM [facility] PSA Specimen Type: SERUM No comment entered. Ordering Provider: JUANY WYNN Report Released Date/Time: May 11, 2021 09:37 AM Reporting Lab: [facility] [id number] Performing Lab: [facility] [id number] PSA 8.25 H <4.00 May 10, 2022 08:54 AM [facility] BASIC METABOLIC PANEL+MG Specimen Type: PLASMA No comment entered. Ordering Provider: JUANY WYNN Report Released Date/Time: May 11, 2021 09:37 AM Reporting Lab: [facility] [id number] Performing Lab: [facility] [id number] CREATININE 0.8 0.7-1.2 UREA NITROGEN 12 8-26 [...] % 0 72 in 249.9 lb 34 [place] [facility] Social History: Smoking Status (Most current) and Tobacco Use (All prior to encounter date) This section includes the most current, and the historical, smoking and tobacco- related health factors from the [place] facility where the Encounter took place. Current Smoking Status This section includes the most current smoking, or tobacco-related health factor, from the [place] facility where the Encounter took place. Date/Time Current Smoking Status Comment Facil ity May 10, 2022 09:15 AM VA-TOBACCO QUIT 15 YRS OR MORE [facility] Tobacco Use History This section includes a history of the smoking, or tobacco-related health factors, that were collected on or before the date of the Encounter. The data comes from the [place] facility where the Encounter took place. Date/Time Smoking Status/Tobacco Use Comment F acility May 10, 2022 09:15 AM VA-TOBACCO QUIT 15 YRS OR MORE [facility] May 11, 2021 09:15 AM VA-TOBACCO FORMER USER [facility] May 11, 2021 09:15 AM VA-TOBACCO QUIT 15 YRS OR MORE [facility] Nov 22, 2018 01:36 PM VA-TOBACCO NEVER USED [facility] Nov 12, 2017 07:35 AM FORMER TOBACCO USER 7Y OR GREATE R [facility] Nov 06, 2016 09:05 AM FORMER TOBACCO USER 7Y OR GREATE R [facility] Sep 27, 2015 09:42 AM FORMER TOBACCO USER 7Y OR GREATE R [facility] Sep 25, 2014 07:55 AM FORMER TOBACCO USER 7Y OR GREATE R [facility] Sep 08, 2013 07:48 AM FORMER TOBACCO USER 7Y OR GREATE R [facility] July 09, 2012 09:20 AM FORMER TOBACCO USE >1Y <7Y [facility] Jun 06, 2011 07:53 AM FORMER TOBACCO USE >1Y <7Y [facility] Sep 09, 2009 03:03 PM FORMER TOBACCO USE >1Y <7Y [facility] Aug 11, 2008 01:06 PM FORMER TOBACCO USE <1Y [facility] Sep 19, 2007 02:52 PM CURRENT TOBACCO USER [facility] Sep 03, 2006 03:32 PM CURRENT TOBACCO USER [facility] Advance Directives: All historical and current Section Date Range: From patient's date of to the date document was created. This section includes ALL of a patient's completed or amended [place] Advance and Rescinded Directives. The entries below indicate that a directive exists for the patient, but an actual copy is not included with this document. The data comes from all [place] facilities. Date Advance Directives Provider Source Mar 18, 2003 ADVANCE DIRECTIVE FARHAT MELGAR [facility]
--- OUTSIDE RECORDS SUMMARY | 2023-03-24 08:54 | XMS_ITS | Encounter Summary ---
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 of Vetera ns Affairs Address [address] [place] [address] Support Name Relationship Address Phone DOREEN WAGNER Next of Kin [address] [place] [phone] DOREEN Emergency Contact [address] [place] [phone] Insurance Providers: All historical and current [...] Name Patient's Relationship to Policy [place] [employer] [facility] (WNR) MEDICARE ADVANTAGE [facility] ([facility]) June 26, 2016 [id number] JOAN WAGNER KARSTEN PATIENT [employer] MCR (WNR) MEDICARE ADVANTAGE [facility] ([facility]) June 26, 2016 [id number] 15 JOAN WAGNER KARSTEN PATIENT [employer] MCR (WNR) MEDICARE ADVANTAGE [facility] (R) June 26, 2016 [id number] [phone] JOAN WAGNER PATIENT Selected Encounter This section includes the information on record at [place] for the Encounter. Date/Time Encounter Type Encounter Description Reason Provider Source May 18, 2022 09:53 AM HC PRO PHONE CALL 5-10 MIN TELEPHONE/MEDICIN E ICD-10-CM C64.2 Malignant neoplasm of left kidney, except renal pelvis MARIA LUISA JOSE Encounter Template Text not used by [place] Assessments - Encounter Diagnoses This section includes the primary and secondary diagnoses documented for the Encounter. Date/Time Primary/Secondary Diagnosis Diagnosis Name Provider Source May 18, 2022 09:53 AM PRIMARY Malignant neoplasm of left kidney, except renal pelvis MARIA LUISA JOSE [facility] Plan of Treatment: Future Appointments (+ 6 months) and Future Tests (+/- 45 days) The Plan of Treatment section includes future care activities for the patient [facility] [place] [facility] This section includes future appointments and future orders which are active, pending or scheduled. Future Appointments This section includes appointments that were scheduled to occur 6 months from the date of the Encounter, up to a maximum of 20 appointments. The data comes from all [facility]. Appointment Date/Time Appointment Type Appointme nt Facility Name July 13, 2022 08:57 AM AMBULATORY - MEDICINE [facility] Jul 28, 2022 10:45 AM AMBULATORY - MEDICINE [facility] Aug 13, 2022 06:13 PM AMBULATORY - MEDICINE [facility] Aug 23, 2022 09:30 AM AMBULATORY - SURGERY [facility] Aug 23, 2022 09:45 AM AMBULATORY - NONE [facility] Aug 23, 2022 10:30 AM AMBULATORY - MEDICINE [facility] Aug 23, 2022 10:31 AM AMBULATORY - MEDICINE [facility] Sep 06, 2022 10:15 AM AMBULATORY - SURGERY [facility] Oct 25, 2022 07:00 AM AMBULATORY - NONE [facility] Oct 25, 2022 07:30 AM AMBULATORY - SURGERY [facility] Oct 25, 2022 09:00 AM AMBULATORY SURGERY [facility] Active, Pending, and Scheduled Orders This section includes a listing of several types of active, pending, and scheduled orders, including clinic medications orders, diagnostic test orders, procedure orders and consult orders; where the start date of the order is 45 days before the date of the Encounter or 45 days after the date of theEncounter. The data comes from all [facility]. Test Date/Time Test Type Test Details Facility Name May 22, 2022 12:00 AM Laboratory - Chemistry Order CBC & DIFF BLOOD ONCO ONCE [facility] May 22, 2022 12:00 AM Laboratory - Chemistry Order TSH W/REFLEX TO FREE T4 PLASMA ONCO [facility] May 22, 2022 12:00 AM Laboratory - Chemistry Order COMPREHENSIVE METABOLIC PANEL+MG PLASMA ONCO [facility] Jun 12, 2022 12:00 AM Laboratory - Chemistry Order CBC & DIFF BLOOD ONCO SP ONCE [facility] Jun 12, 2022 12:00 AM Laboratory - Chemistry Order COMPREHENSIVE METABOLIC PANEL+MG PLASMA ONCO SP ONCE [facility] Jun 12, 2022 12:00 AM Laboratory - Chemistry Order TSH W/REFLEX TO FREE T4 PLASMA ONCO SP ONCE [facility] Lab Results: +/- 30 days [...] Range Comment May 10, 2022 08:54 AM [facility] PSA Specimen Type: SERUM No comment entered. Ordering Provider: JUANY WYNN Report Released Date/Time: May 11, 2021 09:37 AM Reporting Lab: [facility] [id number] Performing Lab: [facility] [id number] PSA 8.25 H <4.00 May 10, 2022 08:54 AM [facility] BASIC METABOLIC PANEL+MG Specimen Type: PLASMA No comment entered. Ordering Provider: JUANY WYNN Report Released Date/Time: May 11, 2021 09:37 AM Reporting Lab: [facility] [id number] Performing Lab: [facility] [id number] CREATININE 0.8 0.7-1.2 UREA NITROGEN 12 8-26 [...] and tobacco- related health factors from the [facility] where the Encounter took place. Current Smoking Status This section includes the most current smoking, or tobacco-related health factor, from the [place] facility where the Encounter took place. Date/Time Current Smoking Status Comment Facil ity May 10, 2022 09:15 AM VA-TOBACCO FORMER USER [facility] Tobacco Use History This section includes a history of the smoking, or tobacco-related health factors, that were collected on or before the date of the Encounter. The data comes from the [place] facility where the Encounter took place. Date/Time Smoking Status/Tobacco Use Comment F acility May 10, 2022 09:15 AM VA-TOBACCO QUIT 15 YRS OR MORE [facility] May 11, 2021 09:15 AM VA-TOBACCO FORMER USER [facility] May 11, 2021 09:15 AM VA-TOBACCO QUIT 15 YRS OR MORE [facility] Nov 22, 2018 01:36 PM VA-TOBACCO NEVER USED [facility] Nov 12, 2017 07:35 AM FORMER TOBACCO USER 7Y OR GREATE R [facility] Nov 06, 2016 09:05 AM FORMER TOBACCO USER 7Y OR GREATE R [facility] Sep 27, 2015 09:42 AM FORMER TOBACCO USER 7Y OR GREATE R [facility] Sep 25, 2014 07:55 AM FORMER TOBACCO USER 7Y OR GREATE R [facility] Sep 08, 2013 07:48 AM FORMER TOBACCO USER 7Y OR GREATE R [facility] July 09, 2012 09:20 AM FORMER TOBACCO USE >1Y <7Y [facility] Jun 06, 2011 07:53 AM FORMER TOBACCO USE >1Y <7Y [facility] Sep 09, 2009 03:03 PM FORMER TOBACCO USE >1Y <7Y [facility] Aug 11, 2008 01:06 PM FORMER TOBACCO USE <1Y [facility] Sep 19, 2007 02:52 PM CURRENT TOBACCO USER [facility] Sep 03, 2006 03:32 PM CURRENT TOBACCO USER [facility] Advance Directives: All historical and current Section Date Range: From patient's date of to the date document was created. This section includes ALL of a patient's completed or amended [place] Advance and Rescinded Directives. The entries below indicate that a directive exists for the patient, but an actual copy is not included with this document. The data comes from all [facility]. Date Advance Directives Provider Source Mar 18, 2003 ADVANCE DIRECTIVE FARHAT MELGAR [facility] Encounter Notes: All associated encounter notes This section contains the clinical notes associated to the Encounter. Date/Time Encounter Note(s) Provider Source May 18, 2022 09:53 AM HEMATOLOGY AND ONC OLOGY NURSING NOTE: LOCAL TITLE: HEME/ONC NURSE NAVIGATOR STANDARD TITLE: HEMATOLOGY AND ONCOLOGY NURSING NOTE DATE OF NOTE: MAY 18, 2022@09:53 ENTRY DATE: MAY 18, 2022@09:53:37 AUTHOR: MARIA LUISA JOSE EXP COSIGNER: URGENCY: STATUS: COMPLETED HEME/ONC NURSE NAVIGATOR Has ADDENDA called direct line. He indicates he was seen yesterday regarding treatment options. He called today to state I read about this immunotherapy and it is just the same as chemotherapy and I am not doing it. I decided I want to live the rest of my life with good days and this is just chemo and it will kill me. Attempted to talk about chemotherapy vs immunotherapy and he states it is just a money maker and I read about cancer. I have had it for five years and I know the real cure for cancer is not out there because they are just wanting to make money off of us. My sister had chemo and now she has 800K worth the bills and is in a wheelchair with neuropathy. Attempted multiple times to redirect and talk with him and in the end stated this is your decision and as long as you made an informed decision to not take treatment we respect that and will cancel your upcoming appointments at your request states thank you, I do not want that treatment. Alert to oncologist and [facility] team regarding 's decision. /sangita/ Maria Luisa Jose RN Heme/Onc Admissions Counselor Signed: 05/18/2022 09:59 Receipt Acknowledged By: 05/18/2022 10:02 /es/ LEIF [employer]OVER MAKER * AWAITING SIGNATURE * AIXA OREILLY 05/18/2022 10:03 /es/ WES MARINO PHYSICIAN 05/18/2022 ADDENDUM STATUS: COMPLETED Followed up on above discussion with the patient. He is adamant about not wanting any kind of cancer treatment. Refuses to see pall med and refuses hospice support. Patient and his understand that without treatment life expectatncy is limited to weeks to months as the best estimate. He continues to refuse stating I want my last days to be good and dont want to go through all of this.... Continues to express frustration about doctors and pharmaceutical companues hiding cure to cancer. Attempted once again to clarify but he has made a decision and doesnt want to discuss more. He has our contact information in case he changes his mind regarding traetemnts, palliative medicine and/or hospice. He demonstarted capacity throughout our discussions and bith him and his are in agreement with the decision. /es/ WES MARINO PHYSICIAN Signed: 05/18/2022 10:14 Receipt Acknowledged By: 05/18/2022 10:18 /es/ LEIF [employer] COVER MAKER * AWAITING SIGNATURE * DE [facility]
--- OUTSIDE RECORDS SUMMARY | 2023-03-24 08:54 | XMS_ITS | Encounter Summary ---
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 of Vetera [facility] Address [address] [place] [address] Support Name Relationship Address Phone DOREEN WAGNER Next of Kin [address] [place] [phone] DOREEN Emergency Contact [address] [place] [phone] Insurance Providers: All historical and current [...] ADVANTAGE [facility] ([facility]) June 26, 2016 [id number] JOAN WAGNER KARSTEN PATIENT [employer] MCR (WNR) MEDICARE ADVANTAGE [facility] ([facility]) June 26, 2016 [id number] [phone] JOAN WAGNER KARSTEN PATIENT [employer] MCR (WNR) MEDICARE ADVANTAGE [facility] (WNR) June 26, 2016 [id number] JOAN WAGNER PATIENT Selected Encounter This section includes the information on [place] at [place] for the Encounter. Date/Time Encounter Type Encounter Description Reason Provider Source July 13, 2022 08:57 AM EMERGENCY DEPT VISIT [facility] EMERGENCY DEPT ICD-10-CM 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, l humerus, WHITNEY Mehta [facility] Encounter Template Text not used by [place] Assessments - Encounter Diagnoses This section includes the primary and secondary diagnoses documented for the Encounter. Date/Time Primary/Secondary Diagnosis Diagnosis Name Provider Source July 13, 2022 03:56 PM PRIMARY Pathological fracture in neoplastic disease, l humerus, WHITNEY Mehta [facility] Plan of Treatment: Future Appointments (+ 6 months) and Future Tests (+/- 45 days) The Plan of Treatment section includes future care activities for the patient from [facility] [place] [facility] This section includes future appointments and future orders which are active, pending or scheduled. Future Appointments This section includes appointments that were scheduled to occur 6 months from the date of the Encounter, up to a maximum of 20 appointments. The data comes from all [facility]. Appointment Date/Time Appointment Type Appointme nt Facility Name Jul 28, 2022 10:45 AM AMBULATORY - MEDICINE [facility] Aug 13, 2022 06:13 PM AMBULATORY - MEDICINE [facility] Aug 23, 2022 09:30 AM AMBULATORY - SURGERY [facility] Aug 23, 2022 09:45 AM AMBULATORY - NONE [facility] Aug 23, 2022 10:30 AM AMBULATORY - MEDICINE [facility] Aug 23, 2022 10:31 AM AMBULATORY - MEDICINE [facility] Sep 06, 2022 10:15 AM AMBULATORY - SURGERY [facility] Oct 25, 2022 07:00 AM AMBULATORY - NONE [facility] Oct 25, 2022 07:30 AM AMBULATORY - SURGERY [facility] Oct 25, 2022 09:00 AM AMBULATORY - SURGERY [facility] Active, Pending, and Scheduled Orders This section includes a listing of several types of active, pending, and scheduled orders, including clinic medications orders, diagnostic test orders, procedure orders and consult orders; where the start date of the order is 45 days before the date of the Encounter or 45 days after the date of theEncounter. The data comes from all [facility]. Test Date/Time Test Type Test [...] Bank Order ABO/RH - LAB BLOOD [facility] July 14, 2022 02:05 PM Laboratory - Blood Bank Order TYPE & SCREEN - LAB BLOOD [facility] Aug 07, 2022 11:23 AM Laboratory - Chemistry Order DRUG SCREEN PANEL,URINE URINE ONCE [facility] Aug 23, 2022 10:47 AM Laboratory - Chemistry Order URINALYSIS URINE ER STAT [facility] Lab Results: +/- 30 [...] 19, 2022 05:00 PM Reporting Lab: [facility] [id number] Performing Lab: [facility] [address] FINGERSTICK GLUCOSE 132 70-100 July 19, 2022 07:13 AM [facility] COMPREHENSIVE METABOLIC PANEL+MG Specimen Type: PLASMA No comment entered. Ordering Provider: MACKENZIE COTTER Report Released Date/Time: July 18, 2022 05:40 PM Reporting Lab: [facility] [address] Performing Lab: [facility] [address] CREATININE 0.9 0.7-1.2 UREA NITROGEN 24 8-26 [...] 18, 2022 05:40 PM Reporting Lab: [facility] [address] Performing Lab: [facility] [address] IRON 28 L 65-175 TIBC,CALCULATE D 223 L 250-425 FERRITIN 73.7 21.8-274.7 IRON SATURATION 13 L 20-50 TRANSFERRIN 178 163-382 July 19, 2022 07:13 AM [facility] CBC Specimen Type: BLOOD No comment entered. Ordering Provider: MACKENZIE COTTER Report Released Date/Time: July 18, 2022 05:40 PM Reporting Lab: [facility] [address] Performing Lab: [facility] [address] WBC 7.73 4.0-11.0 RBC 2.42 L 4.6-6.2 [...] 19, 2022 11:54 AM Reporting Lab: [facility] [address] Performing Lab: [facility] [address] FINGERSTICK GLUCOSE 137 70-100 July 18, 2022 10:51 PM [facility] FINGERSTICK GLUCOSE Specimen Type: BLOOD Comment: Save Result Nurse Notified Ordering Provider: MACKENZIE COTTER Report Released Date/Time: July 18, 2022 11:06 PM Reporting Lab: [facility] [address] Performing Lab: [facility] [address] FINGERSTICK GLUCOSE 163 70-100 July 17, 2022 06:51 AM [facility] BASIC METABOLIC PANEL+MG Specimen Type: PLASMA No comment entered. Ordering Provider: DANG VALLE R Report Released Date/Time: July 16, 2022 09:37 AM Reporting Lab: [facility] [address] Performing Lab: [facility] [address] CREATININE 0.8 0.7-1.2 UREA NITROGEN 23 8-26 [...] 16, 2022 09:37 AM Reporting Lab: [facility] [address] Performing Lab: [facility] [address] .INR 1.0 0.8-1.1 .PT 11.5 9.4-12.5 July 17, 2022 06:51 AM [facility] CBC Specimen Type: BLOOD No comment entered. Ordering Provider: DANG VALLE R Report Released Date/Time: July 16, 2022 09:37 AM Reporting Lab: [facility] [address] Performing Lab: [facility] [address] WBC 6.05 4.0-11.0 RBC 3.77 L 4.6-6.2 [...] 13, 2022 11:04 AM Reporting Lab: [facility] [address] Performing Lab: [facility] [address] COVID-19 (CEPHEID) Not Detected Not Detected INFLUENZA A (PCR) Not Detected Not Detected INFLUENZA B (PCR) Not Detected Not Detected RSV (PCR) Not Detected Not Detected July 13, 2022 11:00 AM [facility] C-REACTIVE PROTEIN Specimen Type: SERUM Comment: Automated Differential Performed Ordering Provider: WHITNEY ANDERSON Report Released Date/Time: July 13, 2022 11:04 AM Reporting Lab: [facility] [address] Performing Lab: [facility] [address] C-REACTIVE PROTEIN 1.17 <5.00 July 13, 2022 11:00 AM [facility] PROTHROMBIN TIME/INR Specimen Type: PLASMA No comment entered. Ordering Provider: WHITNEY ANDERSON Report Released Date/Time: July 13, 2022 11:04 AM Reporting Lab: [facility] [address] Performing Lab: [facility] [address] .INR 0.9 0.8-1.1 .PT 11.1 9.4-12.5 July 13, 2022 11:00 AM [facility] SED RATE Specimen Type: BLOOD No comment entered. Ordering Provider: WHITNEY ANDERSON Report Released Date/Time: July 13, 2022 11:04 AM Reporting Lab: [facility] [address] Performing Lab: [facility] [address] SED RATE 10 5-15 July 13, 2022 11:00 AM [facility] CBC & DIFF Specimen Type: BLOOD Comment: Automated Differential Performed Ordering Provider: WHITNEY ANDERSON Report Released Date/Time: July 13, 2022 11:04 AM Reporting Lab: [facility] [address] Performing Lab: [facility] [address] WBC 8.82 4.0-11.0 RBC 3.89 L 4.6-6.2 [...] Comment: Automated Differential Performed Ordering Provider: WHITNEY ANDERSNO Report Released Date/Time: July 13, 2022 11:04 AM Reporting Lab: [facility] [address] Performing Lab: [facility] [address] CREATININE 1.0 0.7-1.2 UREA NITROGEN 16 8-26 [...] Source July 13, 2022 11:25 PM 8 [facility] July 13, 2022 11:18 PM 97.8 F 60 /min 169/90 mm[Hg] 20 /min 96 % [address] [facility] July 13, 2022 07:29 PM 97.9 F 64 /min 152/78 mm[Hg] 18 /min 93 % 0 [facility] July 13, 2022 06:00 PM 4 [facility] July 13, 2022 05:[address] [facility] Social History: Smoking Status (Most current) [...] this document. The data comes from all [place] facilities. Date Advance Directives Provider Source Mar 18, 2003 ADVANCE DIRECTIVE [facility] Radiology Reports: +/- 30 days of the [...] 07:50 AM CHEST 1 VIEW: MARYJO WAGNER [id number] -1950 M Exm Date: JULY 20, 2022@07:50 Req Phys: MACKENZIE COTTER Pat Loc: 07-20-2022@08:26 Img Loc: MAIN X-RAY Service: PRIMARY CARE - MED OFFICE (Case [id number] COMPLETE) CHEST 1 VIEW (RAD Detailed) CPT:37600 Proc Modifiers : PORTABLE EXAM Reason for Study: see below. thanks. Clinical History: Tilly IS NOT under investigation for COVID-19 or is COVID-19 negative Please further evaluate for acute airspace disease given o2 requirement. Thanks. Responsible provider name and phone number to notify for critical findings if other than user placing the order and pager listed below: User placing orders pager: [phone] same LAST CREATININE 0.9 (07/19/22) Report Status: Verified Date Reported: JULY 20, 2022 Date Verified: JULY 20, 2022 Flat Cutter E-Sig:/ES/JAMIE MIGUEL MD Report: EXAM: CHEST 1 VIEW HISTORY: see below. thanks. Reason for Study: see below. thanks. Tilly IS NOT under investigation for COVID-19 or is COVID-19 negative Please further evaluate for acute airspace disease given o2 requirement. Thanks. Responsible provider name and phone number to notify for critical findings if other than user placing the order and pager listed below: User placing orders pager: [phone] same LAST CREATININE 0. COMPARISON: Chest CT [...] Primary Interpreting Staff: JAMIE MIGUEL MD, RADIOLOGIST (Flat Cutter) /JAMIE FRANCES [facility] July 18, 2022 12:59 PM ELBOW LEFT 2 VIEWS: MARYJO WAGNER [id number] -1950 M Exm Date: JULY 18, 2022@12:59 Req Phys: LEIF BALBUENA Loc: OR-PACU/07-18-2022@13:59 Img Loc: MAIN X-RAY Service: ZZSURGICAL SERVICE (Case [id number] COMPLETE) ELBOW LEFT 2 VIEWS (RAD Detailed) CPT:04860 Proc Modifiers : PORTABLE EXAM, OPERATING ROOM EXAM Reason for Study: post-op Clinical History: post-op Report Status: Verified Date Reported: JULY 18, 2022 Date Verified: JULY 18, 2022 Flat Cutter E-Sig:/ES/JAKUB LEE MD Report: EXAM: ELBOW LEFT [...] Primary Interpreting Staff: JAKUB LEE MD, RADIOLOGIST (Flat Cutter) /JAKUB LUCERO [facility] July 18, 2022 07:30 AM FLUORO UP TO 1 HR PHYSICIAN TIME: MARYJO WAGNER [id number] -1950 M Exm Date: JULY 18, 2022@07:30 Req Phys: LEIF BALBUENA Loc: OR-PACU/07-18-2022@13:14 Img Loc: MAIN X-RAY Service: PRIMARY CARE - MED OFFICE (Case [id number] COMPLETE) FLUORO UP TO 1 HR PHYSICIAN TIME (RAD Detailed) CPT:30838 Proc Modifiers : PORTABLE EXAM, OPERATING ROOM EXAM, LEFT Reason for Study: Left distal humerous ORIF Clinical History: OR 7 Pathologic distal humeral shaft fracture Responsible provider name and phone number to notify for critical findings if other than user placing the order and pager listed below: User placing orders pager: Henry BALBUENA [phone] LAST CREATININE 0.8 (07/17/22) Report Status: Electronically Filed Date Reported: JULY 18, 2022 Report: Impression: Please see the full report for this procedure in [facility] patient progress notes. Fluoro guidance was provided during this procedure, but the study was not reviewed or verified by a [facility] radiologist. The radiation exposure dose has been recorded in the patient's chart. If you are unable to view this data, please contact the Imaging Department. VERIFIED BY: / *ELECTRONICALLY FILED* [facility] July 17, 2022 03:28 PM ABDOMINAL AORTOGRAM (P): MARYJO WAGNER [id number] -1950 M Exm Date: JULY 17, 2022@15:28 Req Phys: MALCOM LANGLEY Loc: 07-17-2022@15:54 Img Loc: INTERVENTIONAL RADIOLOGY Service: PRIMARY CARE - MED OFFICE (Case 527 COMPLETE) ANGIOGRAPHY EXTREMITY UNILAT S&I (ANI Detailed) CPT:33912 Reason for Study: codes (Case 528 COMPLETE) IR AORTOGRAPHY ABDOMINAL W/O RUNO(ANI Detailed) CPT:65155 (Case 529 COMPLETE) IR FOREIGN BODY REMOVAL INTRAVASC(ANI Detailed) CPT:40563 (Case 532 COMPLETE) IR NEEDLE/INTRACATH PLACEMENT EXT(ANI Detailed) CPT:72707 (Case 533 COMPLETE) IR PLACEMENT OCCLUSIVE DEVICE SAM(ANI Detailed) CPT:G0269 Clinical History: codes Report Status: Verified Date Reported: JULY 17, 2022 Date Verified: JULY 17, 2022 Flat Cutter E-Sig:/ES/MALCOM LANGLEY MD Report: RADIOLOGIST: Malcom Langley [...] angiogram and runoff. 12. Closure of right STONE BREAKER with Angio-Seal device. HISTORY: Metastatic renal cell [...] Sheath removed over guidewire and a 5 belarusian vascular sheath advanced over guidewire into the [...] arteries. Sheath and catheters were removed and STONE BREAKER arteriotomy was closed using Angioseal. There is patent hemostasis. No bleeding or hematoma noted. Sterile dressing applied. 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 Primary Interpreting Staff: MALCOM LANGLEY MD, INTERVENTIONAL RADIOLOGIST (Flat Cutter) /MALCOM HE [facility] July 17, 2022 07:30 AM RENAL ARTERY EMBOLIZATION (P): MARYJO WAGNER [id number] -1950 M Exm Date: JULY 17, 2022@07:30 Req Phys: WESTON SEPULVEDA [facility] Loc: 07-17-2022@15:46 Img Loc: INTERVENTIONAL RADIOLOGY Service: PRIMARY CARE - MED OFFICE (Case 130 COMPLETE) IR TRANSCATH EMBOLIZATION W/ANGIO(ANI Detailed) CPT:02170 Reason for Study: embolization of RCC mets to left humerus (Case 131 COMPLETE) IR ARTERIAL EMBOLIZATION OTHER TH(ANI Detailed) CPT:19603 (Case 132 COMPLETE) IR US GUIDANCE VASCULAR ACCESS (ANI Detailed) CPT:46362 Clinical History: IS NOT under investigation for [...] pager listed below: User placing orders pager: [phone] LAST CREATININE 1.0 (07/13/22) Report Status: Verified Date Reported: JULY 17, 2022 Date Verified: JULY 17, 2022 Flat Cutter E-Sig:/ES/MALCOM LANGLEY MD Report: RADIOLOGIST: Malcom Langley [...] angiogram and runoff. 12. Closure of right STONE BREAKER with Angio-Seal device. HISTORY: Metastatic renal cell [...] Sheath removed over guidewire and a 5 belarusian vascular sheath advanced over guidewire into the [...] arteries. Sheath and catheters were removed and STONE BREAKER arteriotomy was closed using Angioseal. There is patent hemostasis. No bleeding or hematoma noted. Sterile dressing applied. 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 Primary Interpreting Staff: MALCOM LANGLEY MD, INTERVENTIONAL RADIOLOGIST (Flat Cutter) /MALCOM HE [facility] July 14, 2022 06:44 AM HUMERUS LEFT MINIMUM 2 VIEWS: MARYJO WAGNER [id number] -1950 M Exm Date: JULY 14, 2022@06:44 Req Phys: WESTON SEPULVEDA Loc: 07-14-2022@07:13 Img Loc: MAIN X-RAY Service: PRIMARY CARE - MED OFFICE (Case 2497 COMPLETE) HUMERUS LEFT MINIMUM 2 VIEWS (RAD Detailed) CPT:06880 Reason for Study: post reduction Clinical History: Report Status: Verified Date Reported: JULY 14, 2022 Date Verified: JULY 14, 2022 Flat Cutter E-Sig: Report: HUMERUS LEFT MINIMUM 2 VIEWS HISTORY: post reduction COMPARISON: 07/13/2022 TECHNIQUE: 2 view(s) of the humerus, submitted to the [place] National Teleradiology Program (NTP) for interpretation. FINDINGS: [...] less likely. READING PHYSICIAN: Xavier Merrill MD -[phone] 07/14/2022 5:11 PDT [facility] National Teleradiology Program [phone] (For Medical Practitioner Use Only) Attention Patients / Veterans: If you have questions or concerns about these test results, please contact your ordering provider or primary care team. Primary Interpreting Staff: RADIOLOGY,OUTSIDE SERVICE, Staff Physician / RADIOLOGY,OUTSIDE SERVICE [facility] July 13, 2022 10:07 AM ELBOW LEFT 3 OR MORE VIEWS: MARYJO WAGNER [id number] -1950 M Exm Date: JULY 13, 2022@10:07 Req Phys: WHITNEY ANDERSON Loc: [facility] EMERGENCY DEPT WALK-IN (Re Img Loc: MAIN X-RAY Service: Unknown (Case [id number] COMPLETE) ELBOW LEFT 3 OR MORE VIEWS (RAD Detailed) CPT:45419 Proc Modifiers : LEFT Reason for Study: [...] pager listed below: User placing orders pager: [phone] LAST CREATININE 0.8 (05/10/22) Report Status: Verified Date Reported: JULY 13, 2022 Date Verified: JULY 13, 2022 Flat Cutter E-Sig:/ES/ALBINA COWAN MD, FACR, CCD Report: EXAMINATION: [...] Staff: ALBINA COWAN MD, FACR, STAFF RADIOLOGIST (Flat Cutter) /BSF ALBINA COWAN [facility] July 13, 2022 10:07 AM HUMERUS LEFT MINIMUM 2 VIEWS: MARYJO WAGNER [id number] -1950 M Ex Date: JULY 13, 2022@10:07 Req Phys: WHITNEY ANDERSON Pat Loc: [facility] EMERGENCY DEPT WALK-IN (Re Img Loc: MAIN X-RAY Service: Unknown (Case [id number] COMPLETE) HUMERUS LEFT MINIMUM 2 VIEWS (RAD Detailed) CPT:91521 Proc Modifiers : LEFT Reason for Study: L arm pain Clinical History: Tilly IS NOT under investigation for COVID-19 or is COVID-19 negative Atraumatic left upper extremity pain that is located midshaft humerus distally to the mid forearm. Clinical concern for dislocation versus fracture versus bone mets Responsible provider name and phone number to notify for critical findings if other than user placing the order and pager listed below: User placing orders pager: [phone] LAST CREATININE 0.8 (05/10/22) Report Status: Verified Date Reported: JULY 13, 2022 Date Verified: JULY 13, 2022 Flat Cutter E-Sig:/ES/ALBINA COWAN MD, FACR, CCD Report: EXAMINATION: [...] Staff: ALBINA COWAN MD, FACR, STAFF RADIOLOGIST (Flat Cutter) /BSF ALIBNA COWAN [facility] July 13, 2022 10:07 AM FOREARM LEFT 2 VIEWS: MARYJO WAGNER [id number] -1950 M Exm Date: JULY 13, 2022@10:07 Req Phys: WHITNEY ANDERSON Pat Loc: [facility] EMERGENCY DEPT WALK-IN (Re Img Loc: MAIN X-RAY Service: Unknown (Case [id number] COMPLETE) FOREARM LEFT 2 VIEWS (RAD Detailed) CPT:84860 Proc Modifiers : LEFT Reason for Study: [...] pager listed below: User placing orders pager: [phone] LAST CREATININE 0.8 (05/10/22) Report Status: Verified Date Reported: JULY 13, 2022 Date Verified: JULY 13, 2022 Flat Cutter E-Sig:/ES/ALBINA COWAN MD, FACR, CCD Report: EXAMINATION: [...] Staff: ALBINA COWAN MD, FACR, STAFF RADIOLOGIST (Flat Cutter) /BSF ALBINA COWAN [facility] [...] comes from all [place] treatment facilities. Date/Time Pathology Report Provider Source July 13, 2022 04:06 PM LR SURGICAL PATHOL OGY REPORT: LOCAL TITLE: LR SURGICAL PATHOLOGY REPORT STANDARD TITLE: PATHOLOGY REPORT DATE OF NOTE: JULY 21, 2022@14:37:27 ENTRY DATE: JULY 21, 2022@14:37:27 AUTHOR: JIAN SANDOVAL EXP COSIGNER: URGENCY: STATUS: COMPLETED $APHDR Reporting Lab: [facility] [CLIA# [id number]] [place] [address] - - - - - - - [...] By: [facility] [CLIA# [id number]] [place] [address] $FTR - - - - - - [...] - - MARYJO WAGNER STANDARD FORM 515 ID:[id number] SEX:M :1950 AGE: 72 LOC:[facility] PATHOLOGY PRO FEE ADM:June DX:PATHOLOGIC FX LF HUMERUS PCP: Leif Balbuena MD /sangita/ JIAN SANDOVAL STAFF PATHOLOGIST, PATHOLOGY & LABORATORY [facility] Signed: 07/21/2022 14:37 JIAN SANDOVAL [facility] Encounter Notes: All associated encounter notes This section contains the clinical notes associated to the Encounter. Date/Time Encounter Note(s) Provider Source July 13, 2022 03:57 PM NURSING EMERGENCY DEPT NOTE: LOCAL TITLE: EMERGENCY DEPT NURSING NOTE STANDARD TITLE: NURSING EMERGENCY DEPT NOTE DATE OF NOTE: JULY 13, 2022@15:57 ENTRY DATE: JULY 13, 2022@15:57:54 AUTHOR: EVERETT HOLLIDAY EXP COSIGNER: URGENCY: STATUS: COMPLETED Admission to Inpatient from the Emergency Department Personal Protective Equipment (PPE): Patient was in mask on arrival, patient remained masked for entire visit, RN used PPE during every encounter with the patient, MD/PA/VELVET WEAVER used PPE during every encounter with the patient Admission to Inpatient from the Emergency Department Date/Time: June@15:58 Chief complaint: L Humerous fracture Code status: Allergies: HAZELNUTS (Nov 21, 2002) IV access: Site: R wrist Size: 20g Date Inserted: June Admitted to: 3f at June@15:59 Transport mode: Stretcher. Accompanied by: Staff. 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 He states that he was in bed last night around 9 PM when he rolled over and felt severe pain in his left distal arm. He took some pain medications and attempted to go back to sleep. Reports that he woke up every few hours, took pain medication and went back to sleep. He woke up this morning and realized the pain was severe in which he presented to the emergency department. He reports numbness and tingling radiating down into the left hand. He denies injury to this arm in the past. Reports a shoulder dislocation on the left side when he was young. Otherwise no other injuries have been sustained to the left upper extremity. He has a history of renal cell carcinoma in which she was diagnosed a little over 5 years ago. There is evidence of metastasis in 2 other organs. This is the first bony metastasis and pathologic fracture that he is aware of. He sees an oncologist and has denied chemotherapy in the past. His goal of care is primarily pain management. He has a DNR order and would like that to remain in place for his hospitalization and surgery. PMH: Active problems - Computerized Problem List is the source for the followin. OBESITY, UNSP 2. LIVER CHEM, ABNORMAL 3. Adjustment Disorder with Mixed Anxiety and Depressed Mood 4. Other and unspecified Sleep Apnea 5. Elevated Prostate Specific Antigen (PSA) 6. Dysmetabolic Syndrome X 7. Polyp of colon (SNOMED CT 00923720) - 2011, repeat in 7-10 years, see report 8. Malignant tumor of prostate (SNOMED CT 177123245) 9. Benign hypertension 10. Retention of urine 11. Malignant tumor of kidney parenchyma 12. Multinodular goiter 13. Secondary malignant neoplasm of pancreas Past Surgical History: SURGERIES - NONE FOUND Family History: Non-contributory Social History: 1. Tobacco - denies 2. Alcohol - denies 3. Illicit Drug Use - denies 4. Living Situation - lives Objective: General: Awake, Alert, Oriented X3, No apparent distress Cardio: RRR Lungs: NLB on room air LUE: - Skin intact, no rashes or erythema -Mild swelling over the left elbow - Non-TTP over all bony prominences, with the exception over the distal humerus and elbow which is in proximity to the known fracture - able to make OK sign, thumbs up, crossover IF and MF - SILT ax, med, rad, and uln nerve distribs. Fires delt, bicep, triceps, wrist extensors and flexors,FDS, FDP, EDC, EPL, FPL, intrinsics - Hand wwp, 2+ radial pulse Labs: COVID-19 CEPHEID: Not Detected INFLUENZA A (PCR): Not Detected INFLUENZA B (PCR): Not Detected RSV (PCR): Not Detected GLUCOSE: 129 H UREA NITROGEN: 16 CREATININE: 1.0 SODIUM: 139 POTASSIUM: 4.3 CHLORIDE: 106 CO2: 26 CALCIUM: 9.2 PROTEIN,TOTAL: 6.8 ALBUMIN: 3.9 BILIRUBIN,TOTAL: 1.2 MAGNESIUM: 2.2 ANION GAP: 7 ALKALINE PHOSPHATASE(37C): 73 SGOT(37C): 18 SGPT(37C): 17 CREATININE EGFR (CKD-EPI): 79 INR 1999: 0.9 PROTHROMBIN TIME (10/30): 11.1 C-REACTIVE PROTEIN (09/28): 1.17 WESTERGREN ESR: 10 WBC: 8.82 RBC: 3.89 L HGB: 13.1 L HCT: 37.5 L MCV: 96.4 MCH: 33.7 H MCHC: 34.9 RDW: 13.2 PLT: 182 MPV: 9.6 SEGS: 84.0 LYMPHS: 7.5 MONOCYTES: 7.7 EOSINO: 0.2 BASO: 0.3 NEUTROPHIL, ABSOLUTE: 7.40 EOSINO, ABSOLUTE: 0.02 BASO, ABSOLUTE: 0.03 MONOCYTE, ALTERNATE ABS: 0.68 LYMPHS, ALTERNATE ABS: 0.66 L I.3 IG,ABSOLUTE: 0.03 Imaging X-rays of left humerus, left elbow, left forearm from 07/13/2022 were reviewed and demonstrate a left oblique minimally displaced distal humeral shaft fracture. There are lytic lesions that are in the distal humerus. The fracture is at the uppermost area of the margins of the lytic lesions. Lytic lesion extend distally into the metaphysis of the humerus. Assessment/Plan: This is a 72-year-old [id number] male with a past medical history of metastatic renal cell carcinoma with bony metastasis to the left distal humerus in which he sustained a pathologic fracture. We discussed conservative and surgical management for this fracture. Mainly conservative options include keeping him in a splint. Surgical options would include an open reduction internal fixation of the mass excision with a bone cement augmentation. We discussed that prior to proceeding with the orthopedic surgery, he would have to have a embolization procedure with interventional radiology as renal cell carcinoma is very vascular in nature. He is understanding of his options. His goal for treatment for this fracture is primarily pain control. We discussed risks and benefits to surgery. At this time he would like to proceed with surgery. The patient was placed in a coaptation and posterior slab splint to the left upper extremity in the emergency department. He tolerated the procedure well. Reports decreased pain with placement of the splint. 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 Balbuena, staff surgeon. Weston Sepulveda DO Orthopedic Surgery PGY1 /es/ WESTON SEPULVEDA DO RESIDENT Signed: 07/13/2022 15:35 WESTON SEPULVEDA [facility] July 13, 2022 09:42 AM NURSING EMERGENCY DEPT NOTE: LOCAL TITLE: EMERGENCY DEPT NURSING NOTE STANDARD TITLE: NURSING EMERGENCY DEPT NOTE DATE OF NOTE: JULY 13, 2022@09:42 ENTRY DATE: JULY 13, 2022@09:42:06 AUTHOR: GITA RIVAS EXP COSIGNER: URGENCY: STATUS: COMPLETED EMERGENCY DEPT NURSING NOTE Has ADDENDA Nursing Focused Assessment: CHIEF COMPLAINT: L arm pain x 3 wks, worse since last night. Has slight swelling around his bicep/elbow area. He was not able to take his shirt of by himself. He denies injury. Holding his arm and c/o severe pain with any movement. Allergies/ADR: HAZELNUTS (Nov 21, 2002) Additional allergies not listed: Vital Signs * Blood Pressure: 124/73 (07/13/2022 09:10) Heart Rate: 51 (07/13/2022 09:10) Respirations: 16 (07/13/2022 09:10) Temperature: 97.5 F [36.4 C] (07/13/2022 09:10) Pain: 10 (07/13/2022 09:10) Weight: 249.9 lb [113.35 kg] (05/17/2022 07:44) O2 Sats: 95% (07/13/2022 09:10) Tobacco use: No Alcohol use: No Any drugs besides what is prescribed or over the counter: No ABUSE/NEGLECT: No evidence of abuse/neglect REVIEW OF SYSTEM-FOCUSED ASSESSMENT Neurological: Alert INTERVENTIONS: Oriented to room and bed controls Call light within reach of patient or family/friend /miguelina RIVAS IT SUPPORT TECHNICIAN RN Signed: 07/13/2022 09:43 07/13/2022 ADDENDUM STATUS: COMPLETED 1 mg of dilaudid IM given in R deltoid for 10/10 pain. /miguelina RIVAS IT SUPPORT TECHNICIAN RN Signed: 07/13/2022 09:44 07/13/2022 ADDENDUM STATUS: COMPLETED DANE changed to a 3. Imaging done, needing lab work, pain control and Ortho consult. Report given to Gary. /miguelina RIVAS RN COMPRESSED GASES TESTER Signed: 07/13/2022 11:11 GITA RIVAS [facility] July 13, 2022 09:33 AM PHYSICIAN EMERGENC Y DEPT NOTE: LOCAL TITLE: EMERGENCY DEPT NOTE STANDARD TITLE: PHYSICIAN EMERGENCY DEPT NOTE DATE OF NOTE: JULY 13, 2022@09:33 ENTRY DATE: JULY 13, 2022@09:33:12 AUTHOR: WHITNEY ANDERSON EXP COSIGNER: URGENCY: STATUS: COMPLETED EMERGENCY DEPT NOTE Has ADDENDA Personal Protective Equipment (PPE): Patient was in mask on arrival, Patient was in mask on arrival, patient remained masked for entire visit, RN used PPE during every encounter with the patient, MD/PA/VELVET WEAVER used PPE during every encounter with the patient Nurse's note reviewed. Chief Complaint: The patient is a 72 y/o MALE complaining of: Left arm pain TDAP/TD Immunizations No data available for: TETANUS TOXOID, ADSORBED TETANUS TOXOID, NOT ADSORBED TETANUS TOXOID, UNSPECIFIED FORMULATION TDAP Covid-19 Immunizations No prior COVID-19 immunization History of present illness: Patient is a pleasant 72-year-old male presents to the emergency department with complaints of left arm pain. Patient notes that his arm has been hurting for approximately last 3 weeks but has been worsening substantially over the last 24-hour period. Patient notes that he awoke last night with 10/10 pain that is primary located in his forearm and extends to his elbow. Patient is taking 800 mg of ibuprofen and notes that it has not touched the pain. Patient denies recent injury, shoulder pain, neck pain, chest pain, shortness of breath, recent illness, fever. Patient does have a past medical history of gout but notes that he has not had a gout flare many years and notes that this is not gout pain. Allergies: HAZELNUTS (Nov 21, 2002) Review of Systems: 10 point ROS reviewed and otherwise negative unless stated in HPI. Past Medical History: Active problems - Computerized Problem List is the source for the followin. OBESITY, UNSP 2. LIVER CHEM, ABNORMAL 3. Adjustment Disorder with Mixed Anxiety and Depressed Mood 4. Other and unspecified Sleep Apnea 5. Elevated Prostate Specific Antigen (PSA) 6. Dysmetabolic Syndrome X 7. Polyp of colon (SNOMED CT 25731055) - 2011, repeat in 7-10 years, see report 8. Malignant tumor of prostate (SNOMED CT 121871849) 9. Benign hypertension 10. Retention of urine 11. Malignant tumor of kidney parenchyma 12. Multinodular goiter 13. Secondary malignant neoplasm of pancreas CV Risk Factors: Obesity, Hypertension Family History: Not applicable Social History: Tobacco use: Non-smoker Medications: Active Outpatient Medications (excluding Supplies): Outpatient Medications Status 1) LISINOPRIL 20MG TAB TAKE ONE TABLET BY MOUTH EVERY ACTIVE DAY FOR BLOOD PRESSURE 2) LUBRICATING TOP JELLY BACTERIOSTATIC APPLY JELLY ACTIVE TOPICALLY DIRECTED Non-[facility] Medications Status 1) Non-VA ASPIRIN TAB 81MG MOUTH EVERY DAY ACTIVE 2) Non-VA CHONDROITIN CAP/TAB 1 TABLET TWICE A DAY ACTIVE 3) Non-VA GLUCOSAMINE CAP/TAB 1 TABLET TWICE A DAY ACTIVE 4) Non-VA MULTIVITAMIN CAP/TAB 1 TABLET MOUTH EVERY DAY ACTIVE 6 Total Medications Physical Exam: BP: 124/73 (07/13/2022 09:10) P: 51 (07/13/2022 09:10) R: 16 (07/13/2022 09:10) T: 97.5 F [36.4 C] (07/13/2022 09:10) O2 Sats: 95% (07/13/2022 09:10) General: well developed, well nourished, NAD, obese Skin: Focus skin exam to upper torso and left upper extremity. No erythema, no skin breaks, no obvious deformity, no appreciable warmth when compared to right upper extremity. Neck: supple, no JVDCervical spine: No midline TTP, no step-offs noted. Neuro: alert and oriented, grossly non-focal, sensation intact Musculoskeletal: Other: Patient left upper extremity: Patient holding his left wrist in dependent position and guarding and unwilling to undergo physical examination due to pain. With distraction, no TTP from the left elbow proximal to the left shoulder. No TTP with palpation of the left shoulder. Exquisite TTP proximal forearm. No skin changes as noted above. LABS: GLUCOSE: 129 H UREA NITROGEN: 16 CREATININE: 1.0 SODIUM: 139 POTASSIUM: 4.3 CHLORIDE: 106 CO2: 26 CALCIUM: 9.2 PROTEIN,TOTAL: 6.8 ALBUMIN: 3.9 BILIRUBIN,TOTAL: 1.2 MAGNESIUM: 2.2 ANION GAP: 7 ALKALINE PHOSPHATASE(37C): 73 SGOT(37C): 18 SGPT(37C): 17 CREATININE EGFR (CKD-EPI): 79 INR 1998: 0.9 PROTHROMBIN TIME (10/30): 11.1 C-REACTIVE PROTEIN (09/28): 1.17 WESTERGREN ESR: 10 WBC: 8.82 RBC: 3.89 L HGB: 13.1 L HCT: 37.5 L MCV: 96.4 MCH: 33.7 H MCHC: 34.9 RDW: 13.2 PLT: 182 MPV: 9.6 SEGS: 84.0 LYMPHS: 7.5 MONOCYTES: 7.7 EOSINO: 0.2 BASO: 0.3 NEUTROPHIL, ABSOLUTE: 7.40 EOSINO, ABSOLUTE: 0.02 BASO, ABSOLUTE: 0.03 MONOCYTE, ALTERNATE ABS: 0.68 LYMPHS, ALTERNATE ABS: 0.66 L I.3 IG,ABSOLUTE: 0.03 Imaging: Impression Pathologic fracture distal left humerus. FINDINGS: A large lytic lesion appears to be associated with the diametaphyseal region of the distal left humerus. This is suspicious for a potential metastasis. An associated fracture is seen involving the distal diaphysis of the left humerus. Approximately 5 mm of displacement seen at the fracture site. Minimal angulation. Consultative Services Service: ortho Name of wardrobe image consultant: Dr. Sepulveda. ED Course/Medical Decision Making/Assessment: CPRS Notes/Labs Reviewed for Patient Encounter: Emergency department triage, emergency department nursing note, Patient presenting with 3-week history of worsening atraumatic left upper extremity pain. Patient does have a history of gout but endorses that this is not gout pain. Patient also has a history of malignancy. Clinical concern for metastatic disease. Dilaudid administered in the ED for pain control. Imaging indicates pathologic fracture of the distal left radius with large lytic lesion. Orthopedic consult placed and patient evaluated by orthopedic chemical engineering intern at bedside. Considering that this is a new diagnosis of metastatic disease, patient will be admitted to medicine for full work-up. Ortho is following. Labs obtained. COVID-19 status obtained. Pt is Low RISK carbapenamase. Time 12:19 pt care turned over to Dr. Baum History, pertinent findings reviewed. Anticipated plan: ortho, IV pain control Potential safety issues: none The above note was dictated using voice recognition software. While proofreading attempts were made to verify accuracy, it is possible that nonsensical phrases and words are still contained within the document. Please direct all questions regarding content to the original author. /sangita/ WHITNEY ANDERSON PA-C PHYSICIAN ANIMAL CONTROL SUPERVISOR Signed: 07/13/2022 12:21 Receipt Acknowledged By: * AWAITING SIGNATURE * WYNNJUANY 07/13/2022 ADDENDUM STATUS: COMPLETED Pt care transferred to team /sangita/ WHITNEY ANDERSON PA-C PHYSICIAN ANIMAL CONTROL SUPERVISOR Signed: 07/13/2022 12:22 WHITNEY ANDERSON [facility] July 13, 2022 09:14 AM NURSING EMERGENCY DEPT TRIAGE NOTE: LOCAL TITLE: EMERGENCY DEPARTMENT NURSING TRIAGE NOTE STANDARD TITLE: NURSING EMERGENCY DEPT TRIAGE NOTE DATE OF NOTE: JULY 13, 2022@09:14 ENTRY DATE: JULY 13, 2022@09:14:17 AUTHOR: STACEY MENDOZA COSIGNER: URGENCY: STATUS: COMPLETED Emergency Department/Urgent Care Center Triage Patient age:72 Sex: MALE On arrival patient was: AMBULATORY Patient phone number: [phone] Allergies: HAZELNUTS (Nov 21, 2002) Subjective/Chief Complaint: l upper arm pain/swelling x 3 weeks worsening over last few days. pt denies any injury. pt states it hurts when he moves it or touches it. Objective: The patient is not a fall risk. Vital Signs * Blood Pressure: 124/73 (07/13/2022 09:10) Heart Rate: 51 (07/13/2022 09:10) Respirations: 16 (07/13/2022 09:10) Temperature: 97.5 F [36.4 C] (07/13/2022 09:10) Pain: 10 (07/13/2022 09:10) Weight: 249.9 lb [113.35 kg] (05/17/2022 07:44) O2 Sats: 95% (07/13/2022 09:10) Emergency Severity Index (DANE) level Level 4 Current Medications: Active Outpatient Medications (including Supplies): Active Outpatient Medications Status 1) CATHETER,SELF-CATH COUDE 14FR COLO#[id number] USE CATHETER ACTIVE TOPICALLY DIRECTED 2) LISINOPRIL 20MG TAB TAKE ONE TABLET BY MOUTH EVERY ACTIVE DAY FOR BLOOD PRESSURE 3) LUBRICATING TOP JELLY BACTERIOSTATIC APPLY JELLY ACTIVE TOPICALLY DIRECTED Active Non-VA Medications Status 1) Non-VA ASPIRIN TAB 81MG MOUTH EVERY DAY ACTIVE 2) Non-VA CHONDROITIN CAP/TAB 1 TABLET TWICE A DAY ACTIVE 3) Non-VA GLUCOSAMINE CAP/TAB 1 TABLET TWICE A DAY ACTIVE 4) Non-VA MULTIVITAMIN CAP/TAB 1 TABLET MOUTH EVERY DAY ACTIVE 7 Total Medications Current Problems: OBESITY, UNSP (ICD-9-CM 278.00) LIVER CHEM, ABNORMAL (ICD-9-CM 790.5) Adjustment Disorder with Mixed Anxiety aOther and unspecified Sleep Apnea (ICD-9-CM 780.57) Elevated Prostate Specific Antigen (PSA)Dysmetabolic Syndrome X (ICD-9-CM 277.7) Polyp of colon (SCT 26246192) Malignant tumor of prostate (SCT 642788357) Benign hypertension (SCT 64366314) Retention of urine (SCT 370865234) Malignant tumor of kidney parenchyma (SCMultinodular goiter (SCT 723879166) Secondary malignant neoplasm of pancreas Identification of Seniors at Risk (ISAR):* Defer screen age Coronavirus Disease 2019 (COVID-19) Screen The patient [...] negative. Result: Screen is negative. Suicide Screen: [place] Suicide Severity Rating Scale (C-SSRS) screener 1. [...] due to responses to other questions. /sangita/ STACEY MENDOZAIT SUPPORT TECHNICIAN NURSE Signed: 07/13/2022 09:16 STACEY MENDOZA [facility]
--- OUTSIDE RECORDS SUMMARY | 2023-03-24 08:55 | XMS_ITS | Encounter Summary ---
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 of Vetera [facility] Address [address] [place] [id number] Support Name Relationship Address Phone DOREEN WAGNER Next of Kin [phone] [place] [phone] DOREEN Emergency Contact [address] [place] [phone] Insurance Providers: All historical and current [...] Policy [place] HUMANA MCR (WNR) MEDICARE ADVANTAGE [facility] (R) June 26, 2016 [id number] JOAN WAGNER KARSTEN PATIENT HUMANA MCR (WNR) MEDICARE ADVANTAGE [facility] (WNR) June 26, 2016 [id number] [phone] JOAN WAGNER KARSTEN PATIENT HUMANA MCR (WNR) MEDICARE ADVANTAGE [facility] (WNR) June 26, 2016 [id number] JOAN WAGNER PATIENT Selected Encounter This section includes the information on record at [place] for the Encounter. Date/Time Encounter Type Encounter Description Reason Pro vider Source July 13, 2022 03:45 PM Outpatient Encounter CLINICAL PHARMACY E Encounter Template Text not used by [place] Plan of Treatment: Future Appointments (+ 6 months) and Future Tests (+/- 45 days) The Plan of Treatment section includes future care activities for the patient from all [place] treatmentfacilities. This section includes future appointments and future orders which are active, pending or scheduled. Future Appointments This section includes appointments that were scheduled to occur 6 months from the date of the Encounter, up to a maximum of 20 appointments. The data comes from all [facility]. Appointment Date/Time Appointment Type Appointme nt Facility Name Jul 28, 2022 10:45 AM [facility] Aug 13, 2022 06:13 PM AMBULATORY - MEDICINE [facility] Aug 23, 2022 09:30 AM AMBULATORY - SURGERY [facility] Aug 23, 2022 09:45 AM [facility] Aug 23, 2022 10:30 AM AMBULATORY - MEDICINE [facility] Aug 23, 2022 10:31 AM AMBULATORY - MEDICINE [facility] Sep 06, 2022 10:15 AM AMBULATORY - SURGERY [facility] Oct 25, 2022 07:00 AM [facility] Oct 25, 2022 07:30 AM AMBULATORY - SURGERY [facility] Oct 25, 2022 09:00 AM AMBULATORY - SURGERY [facility] Active, Pending, and Scheduled Orders This section includes a listing of several types of active, pending, and scheduled orders, including clinic medications orders, diagnostic test orders, procedure orders and consult orders; where the start date of the order is 45 days before the date of the Encounter or 45 days after the date of theEncounter. The data comes from all [facility]. Test Date/Time Test Type Test Details Facility Name Jun 12, 2022 12:00 AM Laboratory - Chemistry Order CBC & DIFF BLOOD ONCO SP ONCE [facility] Jun 12, 2022 12:00 AM Laboratory - Chemistry Order COMPREHENSIVE METABOLIC PANEL+MG PLASMA ONCO SP [facility] Jun 12, 2022 12:00 AM Laboratory - Chemistry Order TSH W/REFLEX TO FREE T4 PLASMA ONCO SP [facility] July 14, 2022 12:00 AM Laboratory - Blood Bank Order ABO/RH - LAB BLOOD [facility] July 14, 2022 02:05 PM Laboratory - Blood Bank Order TYPE & SCREEN - LAB BLOOD [facility] Aug 07, 2022 11:23 AM Laboratory - Chemistry Order DRUG SCREEN PANEL,URINE URINE [facility] Aug 23, 2022 10:47 AM Laboratory - Chemistry Order URINALYSIS URINE ER STAT [facility] Lab Results: +/- 30 days [...] 2022 05:00 PM Reporting Lab: [facility] [id number] Performing Lab: [facility] [address] FINGERSTICK GLUCOSE 132 70-100 July 19, 2022 07:13 AM [facility] COMPREHENSIVE METABOLIC PANEL+MG Specimen Type: PLASMA No comment entered. Ordering Provider: MACKENZIE COTTER Report Released Date/Time: July 18, 2022 05:40 PM Reporting Lab: [facility] [address] Performing Lab: [facility] [address] CREATININE 0.9 0.7-1.2 UREA NITROGEN 24 8-26 [...] 2022 05:40 PM Reporting Lab: [facility] [address] Performing Lab: [facility] [address] IRON 28 L 65-175 TIBC,CALCULATE D 223 L 250-425 FERRITIN 73.7 21.8-274.7 IRON SATURATION 13 L 20-50 TRANSFERRIN 178 163-382 July 19, 2022 07:13 AM [facility] CBC Specimen Type: BLOOD No comment entered. Ordering Provider: MACKENZIE COTTER Report Released Date/Time: July 18, 2022 05:40 PM Reporting Lab: [facility] [address] Performing Lab: [facility] [address] WBC 7.73 4.0-11.0 RBC 2.42 L 4.6-6.2 [...] 2022 11:54 AM Reporting Lab: [facility] [address] Performing Lab: [facility] [address] FINGERSTICK GLUCOSE 137 70-100 July 18, 2022 10:51 PM [facility] FINGERSTICK GLUCOSE Specimen Type: BLOOD Comment: Save Result Nurse Notified Ordering Provider: MACKENZIE COTTER Report Released Date/Time: July 18, 2022 11:06 PM Reporting Lab: [facility] [address] Performing Lab: [facility] [address] FINGERSTICK GLUCOSE 163 70-100 July 17, 2022 06:51 AM [facility] BASIC METABOLIC PANEL+MG Specimen Type: PLASMA No comment entered. Ordering Provider: DANG VALLE Report Released Date/Time: July 16, 2022 09:37 AM Reporting Lab: [facility] [address] Performing Lab: [facility] [address] CREATININE 0.8 0.7-1.2 UREA NITROGEN 23 8-26 [...] 2022 09:37 AM Reporting Lab: [facility] [address] Performing Lab: [facility] [address] .INR 1.0 0.8-1.1 .PT 11.5 9.4-12.5 July 17, 2022 06:51 AM [facility] CBC Specimen Type: BLOOD No comment entered. Ordering Provider: DANG VALLE Report Released Date/Time: July 16, 2022 09:37 AM Reporting Lab: [facility] [address] Performing Lab: [facility] [address] WBC 6.05 4.0-11.0 RBC 3.77 L 4.6-6.2 [...] 2022 11:04 AM Reporting Lab: [facility] [address] Performing Lab: [facility] [address] COVID-19 (CEPHEID) Not Detected Not Detected INFLUENZA A (PCR) Not Detected Not Detected INFLUENZA B (PCR) Not Detected Not Detected RSV (PCR) Not Detected Not Detected July 13, 2022 11:00 AM [facility] C-REACTIVE PROTEIN Specimen Type: SERUM Comment: Automated Differential Performed Ordering Provider: WHITNEY ANDERSON Report Released Date/Time: July 13, 2022 11:04 AM Reporting Lab: [facility] [address] Performing Lab: [facility] [address] C-REACTIVE PROTEIN 1.17 <5.00 July 13, 2022 11:00 AM [facility] SED RATE Specimen Type: BLOOD No comment entered. Ordering Provider: WHITNEY ANDERSON Report Released Date/Time: July 13, 2022 11:04 AM Reporting Lab: [facility] [address] Performing Lab: [facility] [address] SED RATE 10 5-15 July 13, 2022 11:00 AM [facility] PROTHROMBIN TIME/INR Specimen Type: PLASMA No comment entered. Ordering Provider: WHITNEY ANDERSON Report Released Date/Time: July 13, 2022 11:04 AM Reporting Lab: [facility] [address] Performing Lab: [facility] [address] .INR 0.9 0.8-1.1 .PT 11.1 9.4-12.5 July 13, 2022 11:00 AM [facility] CBC & DIFF Specimen Type: BLOOD Comment: Automated Differential Performed Ordering Provider: WHITNEY ANDERSON Report Released Date/Time: July 13, 2022 11:04 AM Reporting Lab: [facility] [address] Performing Lab: [facility] [address] WBC 8.82 4.0-11.0 RBC 3.89 L 4.6-6.2 [...] 2022 11:04 AM Reporting Lab: [facility] [address] Performing Lab: [facility] [address] CREATININE 1.0 0.7-1.2 UREA NITROGEN 16 8-26 [...] Source July 13, 2022 11:25 PM 8 [facility] July 13, 2022 11:18 PM 97.8 F 60 /min 169/90 mm[Hg] 20 /min 96 % 7 [facility] July 13, 2022 07:29 PM 97.9 F 64 /min 152/78 mm[Hg] 18 /min 93 % 0 [facility] July 13, 2022 06:00 PM 4 [facility] July 13, 2022 05:10 PM 8 [facility] Social History: Smoking Status (Most current) [...] Facil ity May 10, 2022 09:15 AM [place]-TOBACCO QUIT 15 YRS OR MORE [facility] Tobacco Use History [...] MEDICAL CENTER May 11, 2021 09:15 AM [place]-TOBACCO QUIT 15 YRS OR MORE [facility] [...] 07:50 AM CHEST 1 VIEW: MARYJO WAGNER [id number] -1950 M Exm Date: JULY 20, 2022@07:50 Req Phys: MACKENZIE COTTER Pat Loc: 07-20-2022@08:26 Img Loc: MAIN X-RAY Service: PRIMARY CARE - MED OFFICE (Case [id number] COMPLETE) CHEST 1 VIEW (RAD Detailed) CPT:15506 Proc Modifiers : PORTABLE EXAM Reason for Study: see below. thanks. Clinical History: [place] IS NOT under investigation for COVID-19 or is COVID-19 negative Please further evaluate for acute airspace disease given o2 requirement. Thanks. Responsible provider name and phone number to notify for critical findings if other than user placing the order and pager listed below: User placing orders pager: [phone] same LAST CREATININE 0.9 (07/19/22) Report Status: Verified Date Reported: JULY 20, 2022 Date Verified: JULY 20, 2022 Keyboard Instrument Tuner E-Sig:/ES/JAMIE MIGUEL MD Report: EXAM: CHEST 1 VIEW HISTORY: see below. thanks. Reason for Study: see below. thanks. [place] IS NOT under investigation for COVID-19 or is COVID-19 negative Please further evaluate for acute airspace disease given o2 requirement. Thanks. Responsible provider name and phone number to notify for critical findings if other than user placing the order and pager listed below: User placing orders pager: [phone] same LAST CREATININE 0. COMPARISON: Chest CT [...] Primary Interpreting Staff: JAMIE MIGUEL MD, RADIOLOGIST (Keyboard Instrument Tuner) /JAMIE FRANCES [facility] July 18, 2022 12:59 PM ELBOW LEFT 2 VIEWS: MARYJO WAGNER [id number] -1950 M Exm Date: JULY 18, 2022@12:59 Req Phys: LEIF BALBUENA Loc: OR-PACU/07-18-2022@13:59 Img Loc: MAIN X-RAY Service: ZZSURGICAL SERVICE (Case [id number] COMPLETE) ELBOW LEFT 2 VIEWS (RAD Detailed) CPT:13758 Proc Modifiers : PORTABLE EXAM, OPERATING ROOM EXAM Reason for Study: post-op Clinical History: post-op Report Status: Verified Date Reported: JULY 18, 2022 Date Verified: JULY 18, 2022 Keyboard Instrument Tuner E-Sig:/ES/JAKUB LEE MD Report: EXAM: ELBOW LEFT [...] Primary Interpreting Staff: JAKUB LEE MD, RADIOLOGIST (Keyboard Instrument Tuner) /[facility] JAKUB LEE [facility] July 18, 2022 07:30 AM FLUORO UP TO 1 HR PHYSICIAN TIME: MARYJO WAGNER [id number] -1950 M Exm Date: JULY 18, 2022@07:30 Req Phys: LEIF BALBUENA Loc: OR-PACU/07-18-2022@13:14 Img Loc: MAIN X-RAY Service: PRIMARY CARE - MED OFFICE (Case [id number] COMPLETE) FLUORO UP TO 1 HR PHYSICIAN TIME (RAD Detailed) CPT:05616 Proc Modifiers : PORTABLE EXAM, OPERATING ROOM EXAM, LEFT Reason for Study: Left distal humerous ORIF Clinical History: OR 7 Pathologic distal humeral shaft fracture Responsible provider name and phone number to notify for critical findings if other than user placing the order and pager listed below: User placing orders pager: Henry BALBUENA [phone] LAST CREATININE 0.8 (07/17/22) Report Status: Electronically Filed Date Reported: JULY 18, 2022 Report: Impression: Please see the full report for this procedure in CPRS patient progress notes. Fluoro guidance was provided during this procedure, but the study was not reviewed or verified by a [facility] radiologist. The radiation exposure dose has been recorded in the patient's chart. If you are unable to view this data, please contact the Imaging Department. VERIFIED BY: / *ELECTRONICALLY FILED* [facility] July 17, 2022 03:28 PM ABDOMINAL AORTOGRAM (P): MARYJO WAGNER [id number] -1950 M Exm Date: JULY 17, 2022@15:28 Req Phys: MALCOM LANGLEY Pat Loc: 07-17-2022@15:54 Img Loc: INTERVENTIONAL RADIOLOGY Service: PRIMARY CARE - MED OFFICE (Case 527 COMPLETE) ANGIOGRAPHY EXTREMITY UNILAT S&I (ANI Detailed) CPT:39807 Reason for Study: codes (Case 528 COMPLETE) IR AORTOGRAPHY ABDOMINAL W/O RUNO(ANI Detailed) CPT:73725 (Case 529 COMPLETE) IR FOREIGN BODY REMOVAL INTRAVASC(ANI Detailed) CPT:05365 (Case 532 COMPLETE) IR NEEDLE/INTRACATH PLACEMENT EXT(ANI Detailed) CPT:49146 (Case 533 COMPLETE) IR PLACEMENT OCCLUSIVE DEVICE SAM(ANI Detailed) CPT:G0269 Clinical History: codes Report Status: Verified Date Reported: JULY 17, 2022 Date Verified: JULY 17, 2022 Keyboard Instrument Tuner E-Sig:/ES/MALCOM LANGLEY MD Report: RADIOLOGIST: Malcom Langley [...] angiogram and runoff. 12. Closure of right INSIDE SALES TRAINER with Angio-Seal device. HISTORY: Metastatic renal cell [...] Sheath removed over guidewire and a 5 sao tomean vascular sheath advanced over guidewire into the artery. An H1 catheter was advanced along with the guidewire into the thoracic arch and the left subclavian artery was selected. Catheter and the guidewire were advanced into the left brachial artery. The 5 Angolan sheath was exchanged for a 6 Angolan sheath that was advanced into the left [...] arteries. Sheath and catheters were removed and INSIDE SALES TRAINER arteriotomy was closed using Angioseal. There is patent hemostasis. No bleeding or hematoma noted. Sterile dressing applied. 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 Primary Interpreting Staff: MALCOM LANGLEY MD, INTERVENTIONAL RADIOLOGIST (Keyboard Instrument Tuner) /MALCOM HE [facility] July 17, 2022 07:30 AM RENAL ARTERY EMBOLIZATION (P): MARYJO WAGNER [id number] -1950 M Exm Date: JULY 17, 2022@07:30 Req Phys: WESTON VASQUEZ Pat Loc: 07-17-2022@15:46 Img Loc: INTERVENTIONAL RADIOLOGY Service: PRIMARY CARE - MED OFFICE (Case 130 COMPLETE) IR TRANSCATH EMBOLIZATION W/ANGIO(ANI Detailed) CPT:66797 Reason for Study: embolization of RCC mets to left humerus (Case 131 COMPLETE) IR ARTERIAL EMBOLIZATION OTHER TH(ANI Detailed) CPT:30952 (Case 132 COMPLETE) IR US GUIDANCE VASCULAR ACCESS (ANI Detailed) CPT:44069 Clinical History: [place] IS NOT under investigation for COVID-19 or [...] pager listed below: User placing orders pager: [phone] LAST CREATININE 1.0 (07/13/22) Report Status: Verified Date Reported: JULY 17, 2022 Date Verified: JULY 17, 2022 Keyboard Instrument Tuner E-Sig:/ES/MALCOM LANGLEY MD Report: RADIOLOGIST: Malcom Langley [...] angiogram and runoff. 12. Closure of right INSIDE SALES TRAINER with Angio-Seal device. HISTORY: Metastatic renal cell [...] Sheath removed over guidewire and a 5 sao tomean vascular sheath advanced over guidewire into the artery. An H1 catheter was advanced along with the guidewire into the thoracic arch and the left subclavian artery was selected. Catheter and the guidewire were advanced into the left brachial artery. The 5 Angolan sheath was exchanged for a 6 Angolan sheath that was advanced into the left [...] arteries. Sheath and catheters were removed and INSIDE SALES TRAINER arteriotomy was closed using Angioseal. There is patent hemostasis. No bleeding or hematoma noted. Sterile dressing applied. 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 Primary Interpreting Staff: MALCOM LANGLEY MD, INTERVENTIONAL RADIOLOGIST (Keyboard Instrument Tuner) /MALCOM HE [facility] July 14, 2022 06:44 AM HUMERUS LEFT MINIMUM 2 VIEWS: MARYJO WAGNER [id number] -1950 M Exm Date: JULY 14, 2022@06:44 Req Phys: WESTON VASQUEZ [facility] Loc: 07-14-2022@07:13 Img Loc: MAIN X-RAY Service: PRIMARY CARE - MED OFFICE (Case [id number] COMPLETE) HUMERUS LEFT MINIMUM 2 VIEWS (RAD Detailed) CPT:73699 Reason for Study: post reduction Clinical History: Report Status: Verified Date Reported: JULY 14, 2022 Date Verified: JULY 14, 2022 Keyboard Instrument Tuner E-Sig: Report: HUMERUS LEFT MINIMUM 2 VIEWS [...] less likely. READING PHYSICIAN: Xavier Merrill MD -[phone] 07/14/2022 5:11 PDT [facility] National Teleradiology Program [phone] (For Medical Practitioner Use Only) Attention Patients / Veterans: If you have questions or concerns about these test results, please contact your ordering provider or primary care team. Primary Interpreting Staff: RADIOLOGY,OUTSIDE SERVICE, Staff Physician / RADIOLOGY,OUTSIDE SERVICE [facility] July 13, 2022 10:07 AM HUMERUS LEFT MINIMUM 2 VIEWS: MARYJO WAGNER [id number] -1950 M Ex Date: JULY 13, 2022@10:07 Req Phys: WHITNEY ANDERSON Pat Loc: [facility] EMERGENCY DEPT WALK-IN (Re Img Loc: MAIN X-RAY Service: Unknown (Case [id number] COMPLETE) HUMERUS LEFT MINIMUM 2 VIEWS (RAD Detailed) CPT:56461 Proc Modifiers : LEFT Reason for Study: [...] pager listed below: User placing orders pager: [phone] LAST CREATININE 0.8 (05/10/22) Report Status: Verified Date Reported: JULY 13, 2022 Date Verified: JULY 13, 2022 Keyboard Instrument Tuner E-Sig:/SANGITA/ALBINA COWAN MD, FACR, CCD Report: EXAMINATION: [...] Staff: ALBINA COWAN MD, FACR, STAFF RADIOLOGIST (Keyboard Instrument Tuner) /[facility] ALBINA COWAN [facility] July 13, 2022 10:07 AM ELBOW LEFT 3 OR MORE VIEWS: CARSONMARYJO ROWELL [id number] -1950 M Exm Date: JULY 13, 2022@10:07 Req Phys: WHITNEY ANDERSON Pat Loc: [facility] EMERGENCY DEPT WALK-IN (Re Img Loc: MAIN X-RAY Service: Unknown (Case [id number] COMPLETE) ELBOW LEFT 3 OR MORE VIEWS (RAD Detailed) CPT:73859 Proc Modifiers : LEFT Reason for Study: L arm pain Clinical History: [place] IS NOT under investigation for COVID-19 or is COVID-19 negative Atraumatic left upper extremity pain that is located midshaft humerus distally to the mid forearm. Clinical concern for dislocation versus fracture versus bone mets Responsible provider name and phone number to notify for critical findings if other than user placing the order and pager listed below: User placing orders pager: [phone] LAST CREATININE 0.8 (05/10/22) Report Status: Verified Date Reported: JULY 13, 2022 Date Verified: JULY 13, 2022 Keyboard Instrument Tuner E-Sig:/SANGITA/ALBINA COWAN MD, FACR, CCD Report: EXAMINATION: [...] Staff: ALBINA COWAN MD, FACR, STAFF RADIOLOGIST (Keyboard Instrument Tuner) /ALBINA NATHAN [facility] July 13, 2022 10:07 AM FOREARM LEFT 2 VIEWS: MARYJO WAGNER [id number] -1950 M Exm Date: JULY 13, 2022@10:07 Req Phys: MONICAWHITNEY MARIN Pat Loc: [facility] EMERGENCY DEPT WALK-IN (Re Img Loc: MAIN X-RAY Service: Unknown (Case [id number] COMPLETE) FOREARM LEFT 2 VIEWS (RAD Detailed) CPT:27051 Proc Modifiers : LEFT Reason for Study: L arm pain Clinical History: [place] IS NOT under investigation for COVID-19 or is COVID-19 negative Atraumatic left upper extremity pain that is located midshaft humerus distally to the mid forearm. Clinical concern for dislocation versus fracture versus bone mets Responsible provider name and phone number to notify for critical findings if other than user placing the order and pager listed below: User placing orders pager: [phone] LAST CREATININE 0.8 (05/10/22) Report Status: Verified Date Reported: JULY 13, 2022 Date Verified: JULY 13, 2022 Keyboard Instrument Tuner E-Sig:/ES/ALBINA COWAN MD, FACR, CCD Report: EXAMINATION: [...] Staff: ALBINA COWAN MD, FACR, STAFF RADIOLOGIST (Keyboard Instrument Tuner) /ALBINA NATHAN [facility] Pathology [...] Reporting Lab: [facility] [CLIA# [id number]] [place] [address] - - - - - - - [...] Performed By: [facility] [CLIA# [id number]] [place] [address] $FTR - - - - - - [...] - - MARYJO WAGNER STANDARD FORM 515 ID:[id number] SEX:M :1950 AGE: 72 LOC:[facility] PATHOLOGY PRO FEE ADM:June DX:PATHOLOGIC FX LF HUMERUS PCP: Leif Balbuena MD /sangita/ JIAN SANDOVAL STAFF PATHOLOGIST, PATHOLOGY & LABORATORY MED [facility] Signed: 07/21/2022 14:37 JIAN SANDOVAL [facility] Encounter Notes: All associated encounter notes This section contains the clinical notes associated to the Encounter. Date/Time Encounter Note(s) Provider Source July 13, 2022 03:45 PM PHARMACY MEDICATIO N MGT NOTE: LOCAL TITLE: DRUG RECONCILIATION ON ADMIT STANDARD TITLE: PHARMACY MEDICATION MGT NOTE DATE OF NOTE: JULY 13, 2022@15:45 ENTRY DATE: JULY 13, 2022@15:45:29 AUTHOR: LEONARDO QIU EXP COSIGNER: URGENCY: STATUS: COMPLETED PHARMACY MEDICATION HISTORY NOTE == Medication & allergy history was compiled by [...] no relevant meds for the patient. See [facility] Emergency Department documentation for medications given during emergency department visit. INTERVIEW Patient and/or caregiver has been INTERVIEWED by pharmacy. Allergies: FACILITY ALLERGY/ADR -------- No Remote Allergy/ADR Data available for this patient [facility] [place] Patient reports last scheduled medication(s) were taken prior to admit this AM 07/13/22 Tobacco use within the last 30 days No 07/13/2022 15:11 MARYJO WAGNER [id number] ED18 Source of Info: [facility] Drug Last Refills Qty Filled Remaining ---- --- ------ --------- LISINOPRIL 20MG TAB 90 02/08/2022 (3) ONE QDAY FOR BLOOD PRESSURE The following prescriptions have - Pt NOT taking SODIUM FLUORIDE 1.1% TOOTHPASTE 100 07/09/2021 (5) USE SMALL AMOUNT MOUTH QAM AND QHS ON TOOTHBRUSH, BRUSH FOR 2 MINUTES : 07/08/2022 TAMSULOSIN HCL 0.4MG CAP 90 11/12/2021 (1) ONE EVERY DAY : 05/12/2022 The following are Non-VA medications GLUCOSAMINE CAP/TAB 1 TWICE A DAY CHONDROITIN CAP/TAB 1 TWICE A DAY CHOLECALCIFEROL TAB 1 EVERY DAY TURMERIC TAB 1 EVERY DAY MULTIVITAMIN CAP/TAB 1 EVERY DAY ASPIRIN TAB 81MG EVERY DAY Pt expresses that his non-VA medications are unimportant as he is at end-of- life, will likely not continue No remote, pending, clinic, recently discontinued meds /sangita/ LEONARDO QIU PHARMACIST Signed: 07/13/2022 15:54 Receipt Acknowledged By: * AWAITING SIGNATURE * ROLLY VALLE 07/13/2022 15:57 /sangita/ ESTUARDO OTOOLE [facility]ist, [facility]
--- OUTSIDE RECORDS SUMMARY | 2023-03-24 08:55 | XMS_ITS | Encounter Summary ---
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 of Vetera [facility] Address [address] [place] [address] Support Name Relationship Address Phone DOREEN WAGNER Next of Kin [id number] [place] [phone] DOREEN Emergency Contact [phone] [place] [phone] Insurance Providers: All historical and current [...] Policy [place] HUMANA MCR (WNR) MEDICARE ADVANTAGE [facility] (WNR) June 26, 2016 [id number] JOAN WAGNER KARSTEN PATIENT HUMANA MCR (WNR) MEDICARE ADVANTAGE [facility] (WNR) June 26, 2016 [id number] JOAN WAGNER KARSTEN PATIENT HUMANA MCR (WNR) MEDICARE ADVANTAGE [facility] (WNR) June 26, 2016 [id number] JOAN WAGNER PATIENT Selected Encounter This section includes the information on record at [place] for the Encounter. Date/Time Encounter Type Encounter Description Reason Pro vider Source July 13, 2022 01:25 PM Outpatient Encounter EVENT (HISTORICAL) IHE Encounter [...] 20 appointments. The data comes from all [facility]. Appointment Date/Time Appointment Type Appointme nt Facility Name Jul 28, 2022 10:45 AM [facility] Aug 13, 2022 06:13 PM [facility] Aug 23[facility] 2022 09:30 AM [facility] Aug 23, 2022 09:45 [facility] Aug 23, 2022 10[facility]30 AM [facility] Aug 23, 2022 10:31 AM [facility] Sep 06, 2022 10:15 AM [facility] Oct 25, 2022 07:00 AM [facility] Oct 25, 2022 07:30 AM [facility] Oct 25, 2022 09:00 AM AMBULATORY - SURGERY [facility] Active, Pending, and Scheduled Orders This section includes a listing of several types of active, pending, and scheduled orders, including clinic medications orders, diagnostic test orders, procedure orders and consult orders; where the start date of the order is 45 days before the date of the Encounter or 45 days after the date of theEncounter. The data comes from all [facility]. Test Date/Time Test Type Test Details Facility Name Jun 12, 2022 12:00 AM Laboratory - Chemistry Order CBC & DIFF BLOOD ONCO SP ONCE [facility] Jun 12, 2022 12:00 AM Laboratory - Chemistry Order COMPREHENSIVE METABOLIC PANEL+MG PLASMA ONCO SP ONCE [facility] Jun 12, [...] - Chemistry Order URINALYSIS URINE ER STAT [facility] [...] July 19, 2022 05:00 PM Reporting Lab: [facility] [address] Performing Lab: [facility] [address] FINGERSTICK GLUCOSE 132 70-100 July 19, 2022 07:13 AM [facility] COMPREHENSIVE METABOLIC PANEL+MG Specimen Type: PLASMA No comment entered. Ordering Provider: MACKENZIE COTTER Report Released Date/Time: July 18, 2022 05:40 PM Reporting Lab: [facility] [address] Performing Lab: [facility] [address] CREATININE 0.9 0.7-1.2 UREA NITROGEN 24 8-26 [...] July 18, 2022 05:40 PM Reporting Lab: [facility] [address] Performing Lab: [facility] [address] IRON 28 L 65-175 TIBC,CALCULATE D 223 L 250-425 FERRITIN 73.7 21.8-274.7 IRON SATURATION 13 L 20-50 TRANSFERRIN 178 163-382 July 19, 2022 07:13 AM [facility] CBC Specimen Type: BLOOD No comment entered. Ordering Provider: MACKENZIE COTTER Report Released Date/Time: July 18, 2022 05:40 PM Reporting Lab: [facility] [address] Performing Lab: [facility] [address] WBC 7.73 4.0-11.0 RBC 2.42 L 4.6-6.2 [...] July 19, 2022 11:54 AM Reporting Lab: [facility] [address] Performing Lab: [facility] [address] FINGERSTICK GLUCOSE 137 70-100 July 18, 2022 10:51 PM [facility] FINGERSTICK GLUCOSE Specimen Type: BLOOD Comment: Save Result Nurse Notified Ordering Provider: MACKENZIE COTTER Report Released Date/Time: July 18, 2022 11:06 PM Reporting Lab: [facility] [address] Performing Lab: [facility] [address] FINGERSTICK GLUCOSE 163 70-100 July 17, 2022 06:51 AM [facility] BASIC METABOLIC PANEL+MG Specimen Type: PLASMA No comment entered. Ordering Provider: DANG VALLE Report Released Date/Time: July 16, 2022 09:37 AM Reporting Lab: [facility] [address] Performing Lab: [facility] [address] CREATININE 0.8 0.7-1.2 UREA NITROGEN 23 8-26 [...] July 16, 2022 09:37 AM Reporting Lab: [facility] [address] Performing Lab: [facility] [address] .INR 1.0 0.8-1.1 .PT 11.5 9.4-12.5 July 17, 2022 06:51 AM [facility] CBC Specimen Type: BLOOD No comment entered. Ordering Provider: DANG VALLE R Report Released Date/Time: July 16, 2022 09:37 AM Reporting Lab: [facility] [address] Performing Lab: [facility] [address] WBC 6.05 4.0-11.0 RBC 3.77 L 4.6-6.2 [...] July 13, 2022 11:04 AM Reporting Lab: [facility] [address] Performing Lab: [facility] [address] COVID-19 (CEPHEID) Not Detected Not Detected INFLUENZA A (PCR) Not Detected Not Detected INFLUENZA B (PCR) Not Detected Not Detected RSV (PCR) Not Detected Not Detected July 13, 2022 11:00 AM [facility] C-REACTIVE PROTEIN Specimen Type: SERUM Comment: Automated Differential Performed Ordering Provider: WHITNEY ANDERSON Report Released Date/Time: July 13, 2022 11:04 AM Reporting Lab: [facility] [address] Performing Lab: [facility] [address] C-REACTIVE PROTEIN 1.17 <5.00 July 13, 2022 11:00 AM [facility] PROTHROMBIN TIME/INR Specimen Type: PLASMA No comment entered. Ordering Provider: WHITNEY ANDERSON Report Released Date/Time: July 13, 2022 11:04 AM Reporting Lab: [facility] [address] Performing Lab: [facility] [address] .INR 0.9 0.8-1.1 .PT 11.1 9.4-12.5 July 13, 2022 11:00 AM [facility] SED RATE Specimen Type: BLOOD No comment entered. Ordering Provider: WHITNEY ANDERSON Report Released Date/Time: July 13, 2022 11:04 AM Reporting Lab: [facility] [address] Performing Lab: [facility] [address] SED RATE 10 5-15 July 13, 2022 11:00 AM [facility] CBC & DIFF Specimen Type: BLOOD Comment: Automated Differential Performed Ordering Provider: WHITNEY ANDERSON Report Released Date/Time: July 13, 2022 11:04 AM Reporting Lab: [facility] [address] Performing Lab: [facility] [address] WBC 8.82 4.0-11.0 RBC 3.89 L 4.6-6.2 [...] July 13, 2022 11:04 AM Reporting Lab: [facility] [address] Performing Lab: [facility] [address] CREATININE 1.0 0.7-1.2 UREA NITROGEN 16 8-26 [...] Source July 13, 2022 11:25 PM 8 [facility] July 13, 2022 11:18 PM 97.8 F 60 /min 169/90 mm[Hg] 20 /min 96 % [address] [facility] July 13, 2022 07:29 PM 97.9 F 64 /min 152/78 mm[Hg] 18 /min 93 % 0 [facility] July 13, 2022 06:00 PM [address] [facility] July 13, 2022 05:10 PM 8 [facility] Social History: Smoking Status (Most [...] QUIT 15 YRS OR MORE [facility] Tobacco Use History This section [...] [facility] May 11, 2021 09:15 AM IN-TOBACCO QUIT 15 YRS OR MORE [facility] [...] this document. The data comes from all [facility]. Date Advance Directives Provider Source Mar [...] 07:50 AM CHEST 1 VIEW: MARYJO WAGNER [id number] -1950 M Exm Date: JULY 20, 2022@07:50 Req Phys: MACKENZIE COTTER Pat Loc: 07-20-2022@08:26 Img Loc: MAIN X-RAY Service: PRIMARY CARE - MED OFFICE (Case [id number] COMPLETE) CHEST 1 VIEW (RAD Detailed) CPT:38167 Proc Modifiers : PORTABLE EXAM Reason for Study: see below. thanks. Clinical History: [facility] IS NOT under investigation for COVID-19 or is COVID-19 negative Please further evaluate for acute airspace disease given o2 requirement. Thanks. Responsible provider name and phone number to notify for critical findings if other than user placing the order and pager listed below: User placing orders pager: [phone] same LAST CREATININE 0.9 (07/19/22) Report Status: Verified Date Reported: JULY 20, 2022 Date Verified: JULY 20, 2022 Advanced Manufacturing Engineer E-Sig:/ES/JAMIE MIGUEL MD Report: EXAM: CHEST 1 VIEW HISTORY: see below. thanks. Reason for Study: see below. thanks. [facility] IS NOT under investigation for COVID-19 or is COVID-19 negative Please further evaluate for acute airspace disease given o2 requirement. Thanks. Responsible provider name and phone number to notify for critical findings if other than user placing the order and pager listed below: User placing orders pager: [phone] same LAST CREATININE 0. COMPARISON: Chest CT [...] Primary Interpreting Staff: JAMIE MIGUEL MD, RADIOLOGIST (Advanced Manufacturing Engineer) /JAMIE FRANCES [facility] July 18, 2022 12:59 PM ELBOW LEFT 2 VIEWS: MARYJO WAGNER [id number] -1950 M Exm Date: JULY 18, 2022@12:59 Req Phys: LEIF BALBUENA Loc: OR-PACU/07-18-2022@13:59 Img Loc: MAIN X-RAY Service: ZZSURGICAL SERVICE (Case [id number] COMPLETE) ELBOW LEFT 2 VIEWS (RAD Detailed) CPT:39515 Proc Modifiers : PORTABLE EXAM, OPERATING ROOM EXAM Reason for Study: post-op Clinical History: post-op Report Status: Verified Date Reported: JULY 18, 2022 Date Verified: JULY 18, 2022 Advanced Manufacturing Engineer E-Sig:/ES/JAKUB LEE MD Report: EXAM: ELBOW [...] Primary Interpreting Staff: JAKUB LEE MD, RADIOLOGIST (Advanced Manufacturing Engineer) /JAKUB LUCERO [facility] July 18, 2022 07:30 AM FLUORO UP TO 1 HR PHYSICIAN TIME: MARYJO WAGNER [id number] -1950 M Exm Date: JULY 18, 2022@07:30 Req Phys: LEIF BALBUENA Loc: OR-PACU/07-18-2022@13:14 Img Loc: MAIN X-RAY Service: PRIMARY CARE - MED OFFICE (Case [id number] COMPLETE) FLUORO UP TO 1 HR PHYSICIAN TIME (RAD Detailed) CPT:79987 Proc Modifiers : PORTABLE EXAM, OPERATING ROOM EXAM, LEFT Reason for Study: Left distal humerous ORIF Clinical History: OR 7 Pathologic distal humeral shaft fracture Responsible provider name and phone number to notify for critical findings if other than user placing the order and pager listed below: User placing orders pager: Henry BALBUENA [phone] LAST CREATININE 0.8 (07/17/22) Report Status: Electronically Filed Date Reported: JULY 18, 2022 Report: Impression: Please see the full report for this procedure in [facility] patient progress notes. Fluoro guidance was provided during this procedure, but the study was not reviewed or verified by a [facility] radiologist. The radiation exposure dose has been recorded in the patient's chart. If you are unable to view this data, please contact the Imaging Department. VERIFIED BY: / *ELECTRONICALLY FILED* [facility] July 17, 2022 03:28 PM ABDOMINAL AORTOGRAM (P): MARYJO WAGNER [id number] -1950 M Exm Date: JULY 17, 2022@15:28 Req Phys: MALCOM LANGLEY [facility] Loc: 07-17-2022@15:54 Img Loc: INTERVENTIONAL RADIOLOGY Service: PRIMARY CARE - MED OFFICE (Case [id number] COMPLETE) ANGIOGRAPHY EXTREMITY UNILAT S&I (ANI Detailed) CPT:05675 Reason for Study: codes (Case 528 COMPLETE) IR AORTOGRAPHY ABDOMINAL W/O RUNO(ANI Detailed) CPT:77969 (Case 529 COMPLETE) IR FOREIGN BODY REMOVAL INTRAVASC(ANI Detailed) CPT:64227 (Case 532 COMPLETE) IR NEEDLE/INTRACATH PLACEMENT EXT(ANI Detailed) CPT:77074 (Case 533 COMPLETE) IR PLACEMENT OCCLUSIVE DEVICE SAM(ANI Detailed) CPT:G0269 Clinical History: codes Report Status: Verified Date Reported: JULY 17, 2022 Date Verified: JULY 17, 2022 Advanced Manufacturing Engineer E-Sig:/ES/MALCOM LANGLEY MD Report: RADIOLOGIST: Malcom [...] angiogram and runoff. 12. Closure of right UI DEVELOPER with Angio-Seal device. HISTORY: Metastatic renal cell [...] Sheath removed over guidewire and a 5 bulgarian vascular sheath advanced over guidewire into the artery. An H1 catheter was advanced along with the guidewire into the thoracic arch and the left subclavian artery was selected. Catheter and the guidewire were advanced into the left brachial artery. The 5 Palestinian sheath was exchanged for a 6 Palestinian sheath that was advanced into the left [...] arteries. Sheath and catheters were removed and UI DEVELOPER arteriotomy was closed using Angioseal. There is patent hemostasis. No bleeding or hematoma noted. Sterile dressing applied. 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 Primary Interpreting Staff: MALCOM LANGLEY MD, INTERVENTIONAL RADIOLOGIST ([place]) /MALCOM HE [facility] July 17, 2022 07:30 AM RENAL ARTERY EMBOLIZATION (P): MARYJO WAGNER [id number] -1950 M Exm Date: JULY 17, 2022@07:30 Req Phys: WESTON VASQUEZ Pat Loc: 07-17-2022@15:46 Img Loc: INTERVENTIONAL RADIOLOGY Service: PRIMARY CARE - MED OFFICE (Case 130 COMPLETE) IR TRANSCATH EMBOLIZATION W/ANGIO(ANI Detailed) CPT:97398 Reason for Study: embolization of RCC mets to left humerus (Case 131 COMPLETE) IR ARTERIAL EMBOLIZATION OTHER TH(ANI Detailed) CPT:37272 (Case 132 COMPLETE) IR US GUIDANCE VASCULAR ACCESS (ANI Detailed) CPT:90268 Clinical History: [facility] IS NOT under investigation for COVID-19 or [...] pager listed below: User placing orders pager: [phone] LAST CREATININE 1.0 (07/13/22) Report Status: Verified Date Reported: JULY 17, 2022 Date Verified: JULY 17, 2022 Advanced Manufacturing Engineer E-Sig:/ES/MALCOM LANGLEY MD Report: RADIOLOGIST: Malcom [...] angiogram and runoff. 12. Closure of right UI DEVELOPER with Angio-Seal device. HISTORY: Metastatic renal cell [...] Sheath removed over guidewire and a 5 bulgarian vascular sheath advanced over guidewire into the artery. An H1 catheter was advanced along with the guidewire into the thoracic arch and the left subclavian artery was selected. Catheter and the guidewire were advanced into the left brachial artery. The 5 Palestinian sheath was exchanged for a 6 Palestinian sheath that was advanced into the left [...] arteries. Sheath and catheters were removed and UI DEVELOPER arteriotomy was closed using Angioseal. There is patent hemostasis. No bleeding or hematoma noted. Sterile dressing applied. 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 Primary Interpreting Staff: MALCOM LANGLEY MD, INTERVENTIONAL RADIOLOGIST (Advanced Manufacturing Engineer) /MALCOM EH [facility] July 14, 2022 06:44 AM HUMERUS LEFT MINIMUM 2 VIEWS: MARYJO WAGNER [id number] -1950 M Exm Date: JULY 14, 2022@06:44 Req Phys: PEDROHERBERTJAIRO [facility] Loc: 07-14-2022@07:13 Img Loc: MAIN X-RAY Service: PRIMARY CARE - MED OFFICE (Case [id number] COMPLETE) HUMERUS LEFT MINIMUM 2 VIEWS (RAD Detailed) CPT:33945 Reason for Study: post reduction Clinical History: Report Status: Verified Date Reported: JULY 14, 2022 Date Verified: JULY 14, 2022 Advanced Manufacturing Engineer E-Sig: Report: HUMERUS LEFT MINIMUM 2 VIEWS HISTORY: post reduction COMPARISON: 07/13/2022 TECHNIQUE: 2 view(s) of the humerus, submitted to the [place] National Teleradiology Program (NTP) for interpretation. FINDINGS: [...] less likely. READING PHYSICIAN: Xavier Merrill MD -[phone] 07/14/2022 5:11 PDT [facility] National Teleradiology Program [phone] (For Medical Practitioner Use Only) Attention Patients / Veterans: If you have questions or concerns about these test results, please contact your ordering provider or primary care team. Primary Interpreting Staff: RADIOLOGY,OUTSIDE SERVICE, Staff Physician / RADIOLOGY,OUTSIDE SERVICE [facility] July 13, 2022 10:07 AM HUMERUS LEFT MINIMUM 2 VIEWS: MARYJO WAGNER [id number] -1950 M Ex Date: JULY 13, 2022@10:07 Req Phys: WHITNEY ANDERSON Pat Loc: [facility] EMERGENCY DEPT WALK-IN (Re Img Loc: MAIN X-RAY Service: Unknown (Case [id number] COMPLETE) HUMERUS LEFT MINIMUM 2 VIEWS (RAD Detailed) CPT:96341 Proc Modifiers : LEFT Reason for Study: L arm pain Clinical History: [facility] IS NOT under investigation for COVID-19 or is COVID-19 negative Atraumatic left upper extremity pain that is located midshaft humerus distally to the mid forearm. Clinical concern for dislocation versus fracture versus bone mets Responsible provider name and phone number to notify for critical findings if other than user placing the order and pager listed below: User placing orders pager: [phone] LAST CREATININE 0.8 (05/10/22) Report Status: Verified Date Reported: JULY 13, 2022 Date Verified: JULY 13, 2022 Advanced Manufacturing Engineer E-Sig:/SANGITA/ALBINA COWAN MD, FACR, CCD Report: EXAMINATION: [...] Staff: ALBINA COWAN MD, FACR, STAFF RADIOLOGIST (Advanced Manufacturing Engineer) /BSF ALBINA COWAN [facility] July 13, 2022 10:07 AM ELBOW LEFT 3 OR MORE VIEWS: CARSONLELIAMARYJO CAVAZOS [id number] -1950 M Exm Date: JULY 13, 2022@10:07 Req Phys: WHITNEY ANDERSON Pat Loc: [facility] EMERGENCY DEPT WALK-IN (Re Img Loc: MAIN X-RAY Service: Unknown (Case [id number] COMPLETE) ELBOW LEFT 3 OR MORE VIEWS (RAD Detailed) CPT:51905 Proc Modifiers : LEFT Reason for Study: [...] pager listed below: User placing orders pager: [phone] LAST CREATININE 0.8 (05/10/22) Report Status: Verified Date Reported: JULY 13, 2022 Date Verified: JULY 13, 2022 Advanced Manufacturing Engineer E-Sig:/ES/ALBINA COWAN MD, FACR, CCD Report: [...] Staff: ALBINA COWAN MD, FACR, STAFF RADIOLOGIST (Advanced Manufacturing Engineer) /ALBINA NATHAN [facility] July 13, 2022 10:07 AM FOREARM LEFT 2 VIEWS: MARYJO WAGNER [id number] -1950 M Exm Date: JULY 13, 2022@10:07 Req Phys: MONICAWHITNEY MARIN Pat Loc: [facility] EMERGENCY DEPT WALK-IN (Re Img Loc: MAIN X-RAY Service: Unknown (Case [id number] COMPLETE) FOREARM LEFT 2 VIEWS (RAD Detailed) CPT:52456 Proc Modifiers : LEFT Reason for Study: [...] pager listed below: User placing orders pager: [phone] LAST CREATININE 0.8 (05/10/22) Report Status: Verified Date Reported: JULY 13, 2022 Date Verified: JULY 13, 2022 Advanced Manufacturing Engineer E-Sig:/ES/ALBINA COWAN MD, FACR, [facility] Report: EXAMINATION: FOREARM LEFT 2 VIEWS [...] Staff: ALBINA COWAN MD, FACR, STAFF RADIOLOGIST (Advanced Manufacturing Engineer) /ALBINA NATHAN [facility] Pathology Reports: +/- [...] comes from all [place] treatment facilities. Date/Time Pathology Report Provider Source July 13, 2022 04:06 PM LR SURGICAL PATHOL OGY REPORT: LOCAL TITLE: LR SURGICAL PATHOLOGY REPORT STANDARD TITLE: PATHOLOGY REPORT DATE OF NOTE: JULY 21, 2022@14:37:27 ENTRY DATE: JULY 21, 2022@14:37:27 AUTHOR: JIAN SANDOVAL EXP COSIGNER: URGENCY: STATUS: COMPLETED $APHDR Reporting Lab: [facility] [CLIA# [id number]] [place] [address] - - - - - - - [...] SANDOVAL STAFF PATHOLOGIST, PATHOLOGY & LABORATORY [facility] Signed July 21, 2022@14:37 Performing Laboratory: Surgical Pathology Report Performed By: [facility] [CLIA# [id number]] [place] [address] $FTR - - - - - - - - - - - - - - - - - - - - - - - - - - - - - - - - - - - - - - - - (End of report) JIAN SANDOVAL MD [facility] Date July 21, 2022 - - - - - - - - - - - - - - - - - - - - - - - - - - - - - - - - - - - - - - - - MARYJO WAGNER STANDARD FORM 515 ID:[id number] SEX:M :1950 AGE: 72 LOC:[facility] PATHOLOGY PRO FEE ADM:June DX:PATHOLOGIC FX LF HUMERUS PCP: Leif Balbuena MD /sangita/ JIAN SANDOVAL STAFF PATHOLOGIST, PATHOLOGY & LABORATORY [facility] Signed: 07/21/2022 14:37 JIAN SANDOVAL [facility]
--- OUTSIDE RECORDS SUMMARY | 2023-03-24 08:56 | XMS_ITS ---
HOSPITALIZATION [facility] Encounter Summary Created on: March 24, 2023 MARYJO WAGNER : 1950 Sex: Male 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 Address [address] [place] [id number] Support Name Relationship Address Phone DOREEN WAGNER Next of Kin [address] [place] [phone] DOREEN Emergency Contact [address] [place] [phone] Insurance Providers: All historical and current [...] Name Patient's Relationship to Policy [place] [employer] [facility] (WNR) MEDICARE ADVANTAGE [facility] ([facility]) June 26, 2016 [id number] BERNARDJOAN SHELLEY PATIENT [employer] MCR (WNR) MEDICARE ADVANTAGE [facility] ([facility]) June 26, 2016 [id number] JOAN WAGNER KARSTEN PATIENT [employer] MCR (WNR) MEDICARE ADVANTAGE [facility] (R) June 26, 2016 [id number] [phone] JOAN WAGNER PATIENT Selected Encounter This section includes the information on record at MD for the Encounter. Date/Time Encounter Type Encounter Description Reason Provider Source July 13, 2022 04:06 PM TREAT ELBOW FRACTURE HOSPITALIZATION ICD-10-CM E66.9 Obesity, unspecified TEO PAULA Encounter Template Text not used by MD Assessments - Encounter Diagnoses This section includes the primary and secondary diagnoses documented for the Encounter. Date/Time Primary/Secondary Diagnosis Diagnosis Name Provider Source July 21, 2022 02:54 PM Diagnosis for Length of Stay Pathological fracture in neoplastic disease, l humerus, init [facility] July 21, 2022 02:54 PM SECONDARY Acute posthemorrhagic anemia [facility] July 21, 2022 02:54 PM SECONDARY Acute postprocedural respiratory failure [facility] July 21, 2022 02:54 PM SECONDARY Body mass index [BMI] 33.0-33.9, adult [facility] July 21, 2022 02:54 PM SECONDARY Do not resuscitate [facility] July 21, 2022 02:54 PM SECONDARY Essential (primary) hypertension [facility] July 21, 2022 02:54 PM SECONDARY Malignant neoplasm of left kidney, except renal pelvis [facility] July 21, 2022 02:54 PM SECONDARY Malignant neoplasm of prostate [facility] July 21, 2022 02:54 PM SECONDARY Obesity, unspecified [facility] July 21, 2022 02:54 PM SECONDARY Obstructive sleep apnea (adult) (pediatric) [facility] July 21, 2022 02:54 PM SECONDARY Other retention of urine [facility] July 21, 2022 02:54 PM SECONDARY Secondary malignant neoplasm of bone [facility] Plan of Treatment: Future Appointments (+ 6 months) and Future Tests (+/- 45 days) The Plan of Treatment section includes future care activities for the patient from all [facility]. This section includes future appointments and future orders which are active, pending or scheduled. Future Appointments This section includes appointments that were scheduled to occur 6 months from the date of the Encounter, up to a maximum of 20 appointments. The data comes from all [facility]. Appointment Date/Time Appointment Type Appointme nt Facility Name Jul 28, 2022 10:45 AM [facility] Aug 13, 2022 06:13 PM [facility] Aug 23, 2022 09:30 AM AMBUL[facility]ORY [facility] SURGERY [facility] Aug 23, 2022 09:45 [facility] Aug 23, 2022 10:30 AM [facility] Aug 23, 2022 10:31 AM [facility] Sep 06, 2022 10:15 AM AMBULATORY - SURGERY [facility] Oct 25, 2022 07:00 AM [facility] Oct 25, 2022 07:30 AM AMBULATORY - SURGERY [facility] Oct 25, 2022 09:00 AM AMBULATORY - SURGERY [facility] Active, Pending, and Scheduled Orders This section includes a listing of several types of active, pending, and scheduled orders, including clinic medications orders, diagnostic test orders, procedure orders and consult orders; where the start date of the order is 45 days before the date of the Encounter or 45 days after the date of theEncounter. The data comes from all MD treatment facilities. Test Date/Time Test Type Test Details Facility Name Jun 12, 2022 12:00 AM Laboratory - Chemistry Order CBC & DIFF BLOOD ONCO SP ONCE [facility] Jun 12, 2022 12:00 AM Laboratory - Chemistry Order COMPREHENSIVE METABOLIC PANEL+MG PLASMA ONCO SP [facility] Jun 12, 2022 12:00 AM Laboratory - Chemistry Order TSH W/REFLEX TO FREE T4 PLASMA ONCO SP [facility] July 14, 2022 12:00 AM Laboratory - [...] - Chemistry Order URINALYSIS URINE ER STAT [facility] Surgical Procedures: All associated to the encounter This section includes all Surgical Procedures and Surgical Procedure Notes associated to the Encounter. Surgical Procedures This section includes all Surgical Procedures associated to the Encounter. Surgical Procedure Date/Time Procedure Procedure Type Procedure Qualifiers Provider Source July 18, 2022 07:59 AM Left distal humerus ORIF, excision of tumor, Olecranon osteotomy TREAT ELBOW FRACTURE Other Procedure CPT Code(s): GR-SERVICE BY MD RESIDENT, LT-LEFT SIDE MICHAEL BALBUENA [facility] Surgical Notes This section includes all Surgical Notes associated to the Procedure. Date/Time July 18, 2022 07:59 AM OPERATIVE REPORT: LOCAL TITLE: OPERATION REPORT STANDARD TITLE: OPERATIVE REPORT DATE OF NOTE: JULY 18, 2022@07:59 ENTRY DATE: JULY 18, 2022@13:51:37 SURGEON: EVELYN KRUGER ATTENDING: MICHAEL BALBUENA URGENCY: STATUS: COMPLETED SUBJECT: Case #: [id number] Preoperative Diagnosis: Pathologic left distal humerus fracture due to metastatic renal cell carcinoma. Postoperative Diagnosis: Pathologic left distal humerus fracture due to metastatic renal cell carcinoma. Procedures Performed: Open reduction internal fixation, left distal humerus fracture with tumor excision, cement augmentation, and olecranon osteotomy. Resident Surgeons: Evelyn Kruger MD PGY-3; Weston Sepulveda MD PGY-1 Staff Surgeon: Michael Balbuena MD Implants: All Synthes - Left 6 hole LCP Medial Distal humerus plate - Left 5 hole LCP lateral distal humerus plate - 1x 2.7mm Metaphyseal screw, self-tapping 45 mm - 2.7mm variable angle locking screw: 1x 36mm; 2x 46mm; 4 x60 mm - 3.5mm cortical screw: 2x 24mm; 2x 26mm; 1x 28mm; 1x 30mm - 6.5mm cannulated screw: 90 mm x1 - PMMA cement Tourniquet Time: 130 mL. Anesthesia: GETA. Significant Findings: Tumor mass with local cortical destruction of distal humerus superior to the articular surface. No tumor mass identified within soft tissue of triceps or olecranon Estimated Blood Loss: 450 ml. Complications: None immediate. SURGICAL INDICATIONS: This is a 72-year-old male with past medical history of metastatic renal cell carcinoma who, unfortunately, sustained a closed left pathologic distal humerus fracture on 07/13/2022 after a fall. The patient received medical evaluation, as well as evaluation by the Orthopedic Surgery Service. Due to the nature of the carcinoma, the patient did undergo preoperative embolization of the lesion on 07/17/2022 with Interventional Radiology to reduce the risk of significant intraoperative blood loss. When the patient was cleared from a medical standpoint for surgical intervention, we proceeded to the operating room. We discussed the risks, benefits and alternatives. The benefits include pain control and improved rehab potential, risks include infection, neurovascular injury, cardiovascular injury, blood loss, transfusion,blood clot, symptomatic hardware, hardware failure, wound issues, weakness, repeat surgery, periprosthetic fracture and even . DESCRIPTION OF PROCEDURE: The patient was identified in the preoperative holding area where the correct operative site was marked. Consent was signed and verified. The patient was wheeled to the operating theater and induced under anesthesia. The patient was positioned on the regular operating room table in the prone position with all bony prominences well-padded. The arm was placed over a stack of towels. Preoperatively, ability to obtain all necessary intraoperative fluoroscopy views was obtained prior to sterile prep. Patient's arm was then prepped and draped in the usual sterile fashion. A multidisciplinary timeout was called for, and all were in agreement on the correct side and surgery for this patient. A sterile tourniquet was applied to the upper arm and this was inflated to 250 mmHg. Next, an approximately 12 cm, incision was marked out from the mid aspect of the humerus, curving medially around the olecranon to the proximal aspect. Incision was then carried out through skin and subcutaneous tissue with a #15 blade scalpel. Further dissection was carried out to the level of the triceps fascia proximally, olecranon in the mid aspect of the incision, and the periosteum of the ulna using electrocautery and blunt dissection. Next, attention was turned to elevation of the triceps off of the posterior humerus. Just the fascial layer overlying the lateral triceps and anconeus muscle was carefully dissected using electrocautery, and further dissection was carried out in the interval between the anconeus and the lateral triceps proximally. Attention was then turned to the medial triceps, and the ulnar nerve was carefully dissected and identified. This was protected for the remainder of the case. Further dissection of the overlying fascia of the medial triceps was then carried out. Initial dissection of the underlying triceps fascia, in continuity with the humerus, was carried out with a Aliec followed by Greg. There was immediate tumor and bleeding encountered, and thus the decision was made to proceed with an olecranon osteotomy in order to aid with visualization of the lesion as well as fracture reduction. The periosteum overlying the proximal ulna was then carefully dissected using electrocautery to expose the underlying bone. Next, a drill bit was used to identify the correct path for the eventual cannulated screw that would be used for reapproximation and fixation of the osteotomy. The position of the drill bit was confirmed on intraoperative fluoroscopy and this was drilled past the osteotomy site entirely within bone. Next, the osteotomy was marked out in a chevron fashion and its position confirmed to be safe on intraoperative fluoroscopy. Using a microsagittal saw, each limb of the osteotomy was carried out through two-thirds of the way through the bone, and the osteotomy completed using a half inch osteotome and mallet. There was found to be excellent cortical fragments for eventual fracture interdigitation. Next, attention was turned to further exposure of the distal humerus. With careful retraction of the osteotomy and attached triceps, dissection on both the lateral and medial sides of the triceps fascia was carried out to further expose the proximal humerus using electrocautery. Care was taken to protect the ulnar nerve at all times. At no point was the radial nerve encountered within the confines of the wound. Dissection of the triceps off of the humerus was carried proximally until the fracture could be readily identified. At this point, attention was then turned to tumor excision. Using the Lempert rongeur, along with the curved curette and Aguirre tip suction, specimens were removed from the soft tissue of the underlying triceps, olecranon and ultimately the humerus. Each of these was sent out for fresh frozen, as well as permanent specimens. Pathology did confirm intraoperatively that they did not see any specific metastatic carcinoma on the specimen seen from the triceps and olecranon, aside from a significant amount of lymphocytes. Extensive amount of time was spent on the posterior humerus where the lesion was noted to have caused a significant amount of posterior cortical disruption resulting in an approximately 1.5 cm, hole posteriorly, just superior to the olecranon fossa. The fracture sites were continuously irrigated with hydrogen peroxide for the purposes of further tumor debridement/treatment. Satisfied with the number of specimens sent for pathology and the amount of tumor excision, attention was then turned to fixation of the two fracture fragments. Fracture was noted to be in primarily two large bony blocks. Provisional reduction was obtained with the help of [id number] tenaculum clamps, as well as manual manipulation of the fracture fragments. With the fracture appropriately held in place, a 6-hole LCP medial distal humerus plate and a 5-hole LCP lateral distal humerus plate were provisionally affixed to the bone and found to be satisfactory length to obtain 6 cortices above the fracture site, as well as a sufficient number of screws in the more distal fragment. Fracture fixation proceeded with fixation of the lateral distal humerus plate to bone. First, the plate was affixed to the bone in usual fashion with two, 1.6 mm, K-wires followed by a 2.7 mm, variable angle locking screw in the distal plate which was drilled, measured and placed in typical fashion. Next, the more proximal aspect of the plate was affixed to the lateral aspect of the proximal fragment using a 3.5 mm, cortical screw, once again placed in typical fashion. Two more, 3.5 mm, cortical screws were placed in the proximal fragment and into the plate in typical fashion. The placement of the plate, as well as the screws were then evaluated on intraoperative fluoroscopy, and all implants were confirmed to be in safe position with excellent orthodoxy of length, alignment and rotation of the fracture fragments. Subsequently, an additional two, 2.7 mm, variable angle locking screws were placed into the distal aspect of the lateral distal humeral plate. Attention was then turned to fixation of the medial distal humeral plate. The plate was once again provisionally fixed to bone using 1.6 mm, K-wires. The alignment of the fracture was once again confirmed and held in place with manual manipulation, and a single, 2.7 mm, variable angle locking screw was placed into the distal aspect of the medial distal humeral plate. Attention was once again turned to the more proximal aspect of the plate, and a single, 3.5 mm, cortical screw was placed in the proximal most hole securing the fracture fixation in place. At this point, intraoperative fluoroscopy was once again used to confirm satisfactory alignment of the fracture, as well as placement of the implants. Once this was confirmed, the decision was made to let the tourniquet down. Hemostasis was subsequently achieved with cautery of any small venous bleeders. There were no arterial bleeders that could be noticed. Attention then returned to final fixation of the lateral aspect of the plate. An additional two, proximal, 3.5 mm, cortical screws were placed at the proximal aspect of the plate in typical fashion followed by an additional two, 2.7 mm, variable angle locking screws in the distal aspect of the plate. Final implant position was confirmed on intraoperative fluoroscopy and found to be satisfactory with maintained alignment of the fracture fragments. Attention was then turned to placement of the PMMA cement into the bone defect in the distal humerus where the tumor had previously been. Peter retractors were placed on the medial and lateral aspects of the humerus to ensure that the cement stayed within the confines of the bone and did not go into the surrounding soft tissues. The PMMA cement was then packed proximally and distally into the bony defect and allowed to harden. Peter retractors were removed, and any small amount of residual cement was removed from any surrounding soft tissue. Placement of cement did noticeably help with hemostasis as well. Once again, intraoperative fluoroscopy was used to confirm safe position of all orthopedic implants, maintained fracture alignment, and safe position of PMMA cement. These were all found to be quite satisfactory. Attention was then turned to fixation of the previously made olecranon osteotomy. A 2.0 mm, K-wire was introduced from distal to proximal to the previously made drill hole to re-identify this hole. In the area just overlying this hole, a small rent was made in the triceps fascia to allow for eventual placement of the cannulated screw with washer. Positioning of the wire was confirmed on fluoroscopy. The K-wire was then removed, and a Steinmann pin was placed antegrade from the proximal fragment to the distal fragment to secure fixation. A bxhck-lv-jbigt clamp was further used to obtain reduction which was found to be anatomic. Position of the Steinmann pin was confirmed on fluoroscopy. A cannulated drill was then used to open the cortex of the proximal fragment. Next, a 90 mm, screw was measured, and a single, 6.5 mm, cannulated screw with washer was introduced into the olecranon and ulna. Clinically, the reduction was excellent, and safe position of the screw and washer was confirmed on intraoperative fluoroscopy. After final placement of all implants, final intraoperative fluoroscopy shots were confirmed on all orthogonal views with safe position of all orthopedic implants and maintained fracture reduction. The wound was then copiously irrigated, and 1 g of vancomycin powder was introduced into the area of the prior tumor and plates. The triceps fascia was closed in layered fashion with #0 Vicryl suture, both medially and laterally. The small rent in the triceps fascia overlying the olecranon was also further closed with #0 Vicryl suture. Next, the deeper fascial layers were further approximated with a #0 Vicryl suture in running fashion. This was followed by 2-0 Vicryl suture in interrupted fashion with jennifer for skin. Typical sterile dressings were then applied to the incision and the patient was placed into a very well- padded posterior slab splint. The patient was then safely transferred to the hospital bed and extubated in the standard fashion without issue. Postoperative radiographs obtained in the operating room once again demonstrate satisfactory alignment and positioning of the fracture and all orthopedic implants. All counts were correct. Dr. Balbuena was scrubbed for the entirety of the procedure. There were no complications noted at the conclusion of the case. POSTOPERATIVE PLAN: Primary Team: Medicine Consults: Physical Therapy, Occupational Therapy, Heme-onc Pain Control: Multimodal approach, PO with intermittent IV Weight Bearing: NWB LUE Activity: Progress as tolerated, therapy POD1 Dressing: Keep splint c/d/i until POD14 Antibiotics: 24 hours of antibiotics postoperatively Diet: ADAT DVT Prophylaxis: SCDs, enoxaparin 30 mg BID while inpatient, and aspirin 162 mg daily when discharged Disposition: Pending pain control, medical stability, mobilization with PT, likely to discharge Follow Up: 2 weeks with orthopedic nurse, 6 weeks in orthopedic clinic with new XR Staff: Dr. Balbuena was present and scrubbed for entirety of the case. /sangita/ MICHAEL BALBUENA MD STAFF ORTHOPAEDIC SURGEON Signed: 07/21/2022 07:40 for EVELYN KRUGER MD RESIDENT /sangita/ MICHAEL BALBUENA MD STAFF ORTHOPAEDIC SURGEON Cosigned: 07/21/2022 07:40 MICHAEL BALBUENA July 18, 2022 07:59 AM SURGERY NURSING OPERATIVE NOTE: LOCAL TITLE: NURSE INTRAOPERATIVE REPORT STANDARD TITLE: SURGERY NURSING OPERATIVE NOTE DATE OF NOTE: JULY 18, 2022@07:59 ENTRY DATE: JULY 18, 2022@13:51:37 AUTHOR: CONCEPCIÓN LOPEZ EXP COSIGNER: URGENCY: STATUS: COMPLETED SUBJECT: Case #: [id number] Operating Room: OR7 Surgical Priority: URGENT Patient in Hold: NOT ENTERED Patient in OR: JULY 18, 2022 07:59 Operation Begin: JULY 18, 2022 09:03 Operation End: JULY 18, 2022 13:40 Patient Out OR: JULY 18, 2022 13:51 Major Operations Performed: Primary: Left distal humerus ORIF, excision of tumor, Olecranon osteotomy Robotic Assistance (Y/N): NO Wound Classification: CLEAN Operation Disposition: BARBOZA Discharged Via: MAURI Primary Surgeon: MICHAEL BALBUENA Social Work Lecturer: EVELYN KRUGER Attending Surgeon: MICHAEL BALBUENA Second Assist: WESTON SEPULVEDA Implementation Engineer: JAMIE GRULLON Transit Mix Operator Anesth: N/A OR Support Personnel: Scrubbed Circulating ZO BUTLER () CONCEPCIÓN LOPEZ () CONCEPCIÓN LOPEZ () STEPHANIE HOLDEN () Other Persons in OR: JOJO TARANGO (SYNTHES) Preop Mood: ANXIOUS Preop Consc: ALERT-ORIENTED Preop Skin Integ: INTACT Preop [place]: N/A --- Time Out Checklist --- Confirm Correct Patient Identity: YES Confirm Procedure To Be Performed: YES Confirm Site of the Procedure, Including Laterality: YES Confirm Valid Consent: YES, i-MED Confirm Patient Position: YES Confirm Procedure Site has been Marked Appropriately and that the Site of the Fred is Visible After Prep and Draping: YES Pertinent Medical Images Have Been Confirmed: YES Correct Medical Implant(s) is Available: YES Availability of Special Equipment: YES Appropriate Antibiotic Prophylaxis: YES Appropriate Deep Vein Thrombosis Prophylaxis: YES Blood Availability: NOT INDICATED Checklist Comment: NO COMMENTS ENTERED Time-Out Document Completed By: STEPHANIE HOLDEN Time-Out Completed: JULY 18, 2022@09:02 Skin Prep By: EVELYN KRUGER Skin Prep Agent: HIBICLENS Skin Prep By (2): STEPHANIE HOLDEN 2nd Skin Prep Agent: CHLORAPREP Preop Surgical Site Hair Removal by: N/A Surgical Site Hair Removal Method: NO HAIR REMOVED Hair Removal Comments: NO COMMENTS ENTERED Surgery Position(s): Prone Placed: N/A Restraints and Position Aids: SAFETY STRAP Applied By: STEPHANIE HOLDEN Electrocautery Unit: [id number] ESU Coagulation Range: 40 ESU Cutting Range: 40 Electroground Position(s): RIGHT BUTTOCK Material Sent to Laboratory for Analysis: Specimens: 1. Left triceps tendon, frozen, Dr. Balbuena, 07/18/22, [facility] 2. Left distal humerus, frozen, Dr. Balbuena, 07/18/22, [facility] 3. Left humerus mets, permanent, Dr. Balbuena, 07/18/22, [facility] Cultures: N/A Anesthesia Technique(s): GENERAL Tourniquet: Time Applied: JULY 18, 2022 09:03 Time Released: NOT ENTERED Site Applied: LEFT UPPER ARM Pressure Applied (in TORR): 250 MMHG Applied By: EVELYN KRUGER Prosthesis Installed: Item: CEMENT, METHYL METHACRYLATE Implant Sterility Checked (Y/N): YES Sterility Expiration Date: OCT 27, 2023 RN Die Grinder: STEPHANIE HOLDEN Vendor: [employer] Model: 6194-1-001 Lot Number: [id number] Serial Number: na Sterile Resp: NON GARMENT SEWING MACHINE OPERATOR Size: N/A Quantity: 2 Provider Read Back Performed: YES Item: PLATE, LARGE BONE Implant Sterility Checked (Y/N): YES Sterility Expiration Date: JULY 18, 2022 RN Die Grinder: CONCEPCIÓN LOPEZ Vendor: synthes Model: 117.506 Lot Number: na Serial Number: na Sterile Resp: SPD Size: 6 hole left Quantity: 1 Provider Read Back Performed: YES Item: PLATE, LARGE BONE Implant Sterility Checked (Y/N): YES Sterility Expiration Date: JULY 18, 2022 RN Die Grinder: CONCEPCIÓN LOPEZ S Vendor: synthes Model: 117.905 Lot Number: na Serial Number: na Sterile Resp: SPD Size: 5 hole left Quantity: 1 Provider Read Back Performed: YES Item: SCREW, SELF TAPPING Implant Sterility Checked (Y/N): YES Sterility Expiration Date: JULY 18, 2022 RN Die Grinder: NAN,STEPHANIE SHANNON S Vendor: Synthes Model: .036 Lot Number: na Serial Number: na Sterile Resp: SPD Size: 36mm Quantity: 1 Provider Read Back Performed: YES Item: SCREW, SELF TAPPING Implant Sterility Checked (Y/N): YES Sterility Expiration Date: JULY 18, 2022 RN Die Grinder: NAN,STEPHANIE SHANNON S Vendor: Synthes Model: .046 Lot Number: na Serial Number: na Sterile Resp: SPD Size: 46 Quantity: 2 Provider Read Back Performed: YES Item: SCREW, SELF TAPPING Implant Sterility Checked (Y/N): YES Sterility Expiration Date: JULY 18, 2022 RN Die Grinder: NAN,STEPHANIE SHANNON S Vendor: Synthes Model: .060 Lot Number: na Serial Number: na Sterile Resp: SPD Size: 60mm Quantity: 4 Provider Read Back Performed: YES Item: SCREW, SELF TAPPING Implant Sterility Checked (Y/N): YES Sterility Expiration Date: JULY 18, 2022 RN Die Grinder: NAN,STEPHANIE SHANNON S Vendor: Synthes Model: 204.824 Lot Number: na Serial Number: na Sterile Resp: SPD Size: 24mm Quantity: 2 Provider Read Back Performed: YES Item: SCREW, SELF TAPPING Implant Sterility Checked (Y/N): YES Sterility Expiration Date: JULY 18, 2022 RN Die Grinder: NAN,STEPHANIE SHANNON S Vendor: Synthes Model: 204.826 Lot Number: na Serial Number: na Sterile Resp: SPD Size: 26 Quantity: 2 Provider Read Back Performed: YES Item: SCREW, SELF TAPPING Implant Sterility Checked (Y/N): YES Sterility Expiration Date: JULY 18, 2022 RN Die Grinder: STEPHANIE HOLDEN Vendor: Synthes Model: 204.830 Lot Number: na Serial Number: na Sterile Resp: SPD Size: 30mm Quantity: 1 Provider Read Back Performed: YES Item: SCREW, CANNULATED Implant Sterility Checked (Y/N): YES Sterility Expiration Date: JULY 18, 2022 RN Die Grinder: STEPHANIE HOLDEN Vendor: Mekhi Model: mekhi 6.5 x90 Lot Number: na Serial Number: na Sterile Resp: SPD Size: 6.5x90 Quantity: 1 Provider Read Back Performed: YES Medications: HYDROGEN PEROXIDE 3% TOP SOLN Time Administered: JULY 18, 2022 10:09 Route: IRRIGATION Dosage: 500 Ordered By: MICHAEL BALBUENA Admin By: MICHAEL BALBUENA Comments: dispensed to sterile field VANCOMYCIN 1GM INJ Time Administered: JULY 18, 2022 13:00 Route: TOPICAL Dosage: 1gm Ordered By: MICHAEL BALBUENA Admin By: MICHAEL BALBUENA Comments: sprinkled to surgical site BUPIVACAINE 0.25%/EPI 1:[id number] 30ML INJ Time Administered: JULY 18, 2022 13:00 Route: INFILTRATE Dosage: 15ml Ordered By: MICHAEL BALBUENA Admin By: MICHAEL BALBUENA Comments: injected at the end of procedure Irrigation Solution(s): NORMAL SALINE Time Used: JULY 18, 2022 09:00 Amount: 1000 Provider: MICHAEL BALBUENA Possible Item Retention: YES Sponge Final Count Correct: YES Sharps Final Count Correct: YES Instrument Final Count Correct: NOT APPLICABLE Wound Sweep: YES Wound Sweep Comment: PERFORMED BY OR TEAM BEFORE WOUND CLOSURE. Intra-Operative X-Ray: YES Intra-Operative X-Ray Comment: INTRA OP C-ARM USED, POST OP FLAT PLATES PERFORMED TO RULE OUT RETAINED OBJECTS. Counter: STEPHANIE HOLDEN Counts Verified By: ZO BUTLER Dressing: xeroform, 4x4, abd, cast padding, splint cast, mekhi bandage Blood Loss: 450 ml Urine Output: Postoperative Mood: RELAXED Postoperative Consciousness: DROWSY Postoperative Skin Integrity: FRESH INCISION Sequential Compression Device: YES Immediate Use Steam Sterilization Episodes: Contamination: 0 SPS Processing/OR Management Issues: 0 Emergency Case: 0 No Better Option: 0 Loaner or Short Notice Instrument: 0 Decontamination of Instruments Contaminated During the Case: 0 Nursing Care Comments: THIGH HIGH SCD'S PLACED BEFORE INDUCTION. SEE CPRS INTRAOPERATIVE NURSING NOTES. /sangita/ Stephanie Holden MSN,RN,CNOR Signed: 07/18/2022 13:55 for CONCEPCIÓN LOPEZ RN REGISTERED NURSE, OPERATING ROOM STEPHANIE HOLDEN Lab Results: +/- 30 days of the [...] Comment: Save Result Nurse Notified Ordering Provider: BRUCE BALTAZAR Report Released Date/Time: July 19, 2022 05:00 PM Reporting Lab: [facility] [place] [address] Performing Lab: [facility] [place] [address] FINGERSTICK GLUCOSE 132 70-100 July 19, 2022 07:13 AM [facility] COMPREHENSIVE METABOLIC PANEL+MG Specimen Type: PLASMA No comment entered. Ordering Provider: BRUCE BALTAZAR Report Released Date/Time: July 18, 2022 05:40 PM Reporting Lab: [facility] [place] [address] Performing Lab: [facility] [place] [address] CREATININE 0.9 0.7-1.2 UREA NITROGEN 24 8-26 [...] Type: SERUM No comment entered. Ordering Provider: BRUCE BALTAZAR Report Released Date/Time: July 18, 2022 05:40 PM Reporting Lab: [facility] [place] [address] Performing Lab: [facility] [place] [address] IRON 28 L 65-175 TIBC,CALCULATE D 223 L 250-425 FERRITIN 73.7 21.8-274.7 IRON SATURATION 13 L 20-50 TRANSFERRIN 178 163-382 July 19, 2022 07:13 AM [facility] CBC Specimen Type: BLOOD No comment entered. Ordering Provider: BRUCE BALTAZAR Report Released Date/Time: July 18, 2022 05:40 PM Reporting Lab: [facility] [place] [address] Performing Lab: [facility] [place] [address] WBC 7.73 4.0-11.0 RBC 2.42 L 4.6-6.2 HGB 8.2 L 13.5-17.9 HCT 23.8 L 41-54 MCV 98.3 80-100 MCH 33.9 H 27-33 MCHC 34.5 32.0-37.5 PLT 155 150-400 MPV 9.6 7.4-10.4 RDW 13.5 11.5-14.5 July 19, 2022 05:44 AM [facility] FINGERSTICK GLUCOSE Specimen Type: BLOOD Comment: Save Result Nurse Notified Ordering Provider: BRUCE BALTAZAR Report Released Date/Time: July 19, 2022 11:54 AM Reporting Lab: [facility] [place] [address] Performing Lab: [facility] [place] [address] FINGERSTICK GLUCOSE 137 70-100 July 18, 2022 10:51 PM [facility] FINGERSTICK GLUCOSE Specimen Type: BLOOD Comment: Save Result Nurse Notified Ordering Provider: BRCUE BALTAZAR Report Released Date/Time: July 18, 2022 11:06 PM Reporting Lab: [facility] [place] [address] Performing Lab: [facility] [place] [address] FINGERSTICK GLUCOSE 163 70-100 July 17, 2022 06:51 AM [facility] BASIC METABOLIC PANEL+MG Specimen Type: PLASMA No comment entered. Ordering Provider: DANG PAULA R Report Released Date/Time: July 16, 2022 09:37 AM Reporting Lab: [facility] [place] [address] Performing Lab: [facility] [place] [address] CREATININE 0.8 0.7-1.2 UREA NITROGEN 23 8-26 [...] AM Reporting Lab: [facility] [place] [address] Performing Lab: [facility] [place] [address] .INR 1.0 0.8-1.1 .PT 11.5 9.4-12.5 July 17, 2022 06:51 AM [facility] CBC Specimen Type: BLOOD No comment entered. Ordering Provider: DANG PAULA R Report Released Date/Time: July 16, 2022 09:37 AM Reporting Lab: [facility] [place] [address] Performing Lab: [facility] [place] [address] WBC 6.05 4.0-11.0 RBC 3.77 L 4.6-6.2 HGB 12.7 L 13.5-17.9 HCT 36.0 L 41-54 MCV 95.5 80-100 MCH 33.7 H 27-33 MCHC 35.3 32.0-37.5 PLT 179 150-400 MPV 9.4 7.4-10.4 RDW 13.2 11.5-14.5 July 13, 2022 11:22 AM [facility] COVID-19 AND FLU/RSV DIAG PANEL(CEPHEID) Specimen Typ e: NASOPHARYNGEAL Comment: CepHangItid GeneXpert (618) Ordering Provider: WHITNEY ANDERSON Report Released Date/Time: July 13, 2022 11:04 AM Reporting Lab: [facility] [place] [address] Performing Lab: [facility] [place] [address] COVID-19 (CEPHEID) Not Detected Not Detected INFLUENZA A (PCR) Not Detected Not Detected INFLUENZA B (PCR) Not Detected Not Detected RSV (PCR) Not Detected Not Detected July 13, 2022 11:00 AM [facility] C-REACTIVE PROTEIN Specimen Type: SERUM Comment: Automated Differential Performed Ordering Provider: WHITNEY ANDERSON Report Released Date/Time: July 13, 2022 11:04 AM Reporting Lab: [facility] [place] [address] Performing Lab: [facility] [place] [address] C-REACTIVE PROTEIN 1.17 <5.00 July 13, 2022 11:00 AM [facility] SED RATE Specimen Type: BLOOD No comment entered. Ordering Provider: WHITNEY ANDERSON Report Released Date/Time: July 13, 2022 11:04 AM Reporting Lab: [facility] [place] [address] Performing Lab: [facility] [place] [address] SED RATE 10 5-15 July 13, 2022 11:00 AM [facility] PROTHROMBIN TIME/INR Specimen Type: PLASMA No comment entered. Ordering Provider: WHITNEY ANDERSON Report Released Date/Time: July 13, 2022 11:04 AM Reporting Lab: [facility] [place] [address] Performing Lab: [facility] [place] [address] .INR 0.9 0.8-1.1 .PT 11.1 9.4-12.5 July 13, 2022 11:00 AM [facility] CBC & DIFF Specimen Type: BLOOD Comment: Automated Differential Performed Ordering Provider: WHITNEY ANDERSON Report Released Date/Time: July 13, 2022 11:04 AM Reporting Lab: [facility] [place] [address] Performing Lab: [facility] [place] [address] WBC 8.82 4.0-11.0 RBC 3.89 L 4.6-6.2 [...] AM Reporting Lab: [facility] [place] [address] Performing Lab: [facility] [place] [address] CREATININE 1.0 0.7-1.2 UREA NITROGEN 16 8-26 [...] Source July 13, 2022 11:25 PM 8 JASMIN JONES [facility] July 13, 2022 11:18 PM 97.8 F 60 /min 169/90 mm[Hg] 20 /min 96 % 7 [facility] July 13, 2022 07:29 PM 97.9 F 64 /min 152/78 mm[Hg] 18 /min 93 % 0 [facility] July 13, 2022 06:00 PM 4 [facility] July 13, 2022 05:10 PM 8 [facility] Social History: Smoking Status (Most [...] Mar 18, 2003 ADVANCE DIRECTIVE FARHAT MELGAR [facility] Radiology Reports: +/- 30 days of [...] 07:50 AM CHEST 1 VIEW: MARYJO WAGNER [id number] -1950 M Exm Date: JULY 20, 2022@07:50 Req Phys: BRUCE BALTAZAR Pat Loc: 07-20-2022@08:26 Img Loc: MAIN X-RAY Service: PRIMARY CARE - MED OFFICE (Case [id number] COMPLETE) CHEST 1 VIEW (RAD Detailed) CPT:81716 Proc Modifiers : PORTABLE EXAM Reason for Study: see below. thanks. Clinical History: IS NOT under investigation for COVID-19 or is COVID-19 negative Please further evaluate for acute airspace disease given o2 requirement. Thanks. Responsible provider name and phone number to notify for critical findings if other than user placing the order and pager listed below: User placing orders pager: [phone] same LAST CREATININE 0.9 (07/19/22) Report Status: Verified Date Reported: JULY 20, 2022 Date Verified: JULY 20, 2022 Die Grinder E-Sig:/ES/JAMIE MIGUEL MD Report: EXAM: CHEST 1 [...] pager listed below: User placing orders pager: [phone] same LAST CREATININE 0. COMPARISON: Chest CT [...] Primary Interpreting Staff: JAMIE MIGUEL MD, RADIOLOGIST (Die Grinder) /JAMIE FRANCES [facility] July 18, 2022 12:59 PM ELBOW LEFT 2 VIEWS: MARYJO WAGNER [id number] -1950 M Exm Date: JULY 18, 2022@12:59 Req Phys: MICHAEL BALBUENA Loc: OR-PACU/07-18-2022@13:59 Img Loc: MAIN X-RAY Service: ZZSURGICAL SERVICE (Case [id number] COMPLETE) ELBOW LEFT 2 VIEWS (RAD Detailed) CPT:08276 Proc Modifiers : PORTABLE EXAM, OPERATING ROOM EXAM Reason for Study: post-op Clinical History: post-op Report Status: Verified Date Reported: JULY 18, 2022 Date Verified: JULY 18, 2022 Die Grinder E-Sig:/ES/JAKUB LEE MD Report: EXAM: ELBOW LEFT [...] Primary Interpreting Staff: JAKUB LEE MD, RADIOLOGIST (Die Grinder) /JAKUB LUCERO [facility] July 18, 2022 07:30 AM FLUORO UP TO 1 HR PHYSICIAN TIME: MARYJO WAGNER [id number] -1950 M Exm Date: JULY 18, 2022@07:30 Req Phys: MICHAEL BALBUENA Loc: OR-PACU/07-18-2022@13:14 Img Loc: MAIN X-RAY Service: PRIMARY CARE - MED OFFICE (Case [id number] COMPLETE) FLUORO UP TO 1 HR PHYSICIAN TIME (RAD Detailed) CPT:92921 Proc Modifiers : PORTABLE EXAM, OPERATING ROOM EXAM, LEFT Reason for Study: Left distal humerous ORIF Clinical History: OR 7 Pathologic distal humeral shaft fracture Responsible provider name and phone number to notify for critical findings if other than user placing the order and pager listed below: User placing orders pager: Henry BALBUENA [phone] LAST CREATININE 0.8 (07/17/22) Report Status: Electronically Filed Date Reported: JULY 18, 2022 Report: Impression: Please see the full report for this procedure in [facility] patient progress notes. Fluoro guidance was provided during this procedure, but the study was not reviewed or verified by a [facility] radiologist. The radiation exposure dose has been recorded in the patient's chart. If you are unable to view this data, please contact the Imaging Department. VERIFIED BY: / *ELECTRONICALLY FILED* [facility] July 17, 2022 03:28 PM ABDOMINAL AORTOGRAM (P): MARYJO WAGNER [id number] -1950 M Exm Date: JULY 17, 2022@15:28 Req Phys: MALCOM LANGLEY Loc: 07-17-2022@15:54 Img Loc: INTERVENTIONAL RADIOLOGY Service: PRIMARY CARE - MED OFFICE (Case [id number] COMPLETE) ANGIOGRAPHY EXTREMITY UNILAT S&I (ANI Detailed) CPT:95139 Reason for Study: codes (Case 528 COMPLETE) IR AORTOGRAPHY ABDOMINAL W/O RUNO(ANI Detailed) CPT:12305 (Case 529 COMPLETE) IR FOREIGN BODY REMOVAL INTRAVASC(ANI Detailed) CPT:83104 (Case 532 COMPLETE) IR NEEDLE/INTRACATH PLACEMENT EXT(ANI Detailed) CPT:09393 (Case 533 COMPLETE) IR PLACEMENT OCCLUSIVE DEVICE SAM(ANI Detailed) CPT:G0269 Clinical History: codes Report Status: Verified Date Reported: JULY 17, 2022 Date Verified: JULY 17, 2022 Die Grinder E-Sig:/ES/MALCOM LANGLEY MD Report: RADIOLOGIST: Malcom Langley [...] angiogram and runoff. 12. Closure of right CERTIFIED PROSTHETIST/ORTHOTIST with Angio-Seal device. HISTORY: Metastatic renal cell [...] into the left brachial artery. The 5 Anguillan sheath was exchanged for a 6 Anguillan sheath that was advanced into the left [...] arteries. Sheath and catheters were removed and CERTIFIED PROSTHETIST/ORTHOTIST arteriotomy was closed using Angioseal. There is patent hemostasis. No bleeding or hematoma noted. Sterile dressing applied. 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 Primary Interpreting Staff: MALCOM LANGLEY MD, INTERVENTIONAL RADIOLOGIST (Hugo) /MALCOM HE [facility] July 17, 2022 07:30 AM RENAL ARTERY EMBOLIZATION (P): MARYJO WAGNER [id number] -1950 M Exm Date: JULY 17, 2022@07:30 Req Phys: WESTON SEPULVEDA [facility] Loc: 07-17-2022@15:46 Img Loc: INTERVENTIONAL RADIOLOGY Service: PRIMARY CARE - MED OFFICE (Case 130 COMPLETE) IR TRANSCATH EMBOLIZATION W/ANGIO(ANI Detailed) CPT:33511 Reason for Study: embolization of RCC mets to left humerus (Case 131 COMPLETE) IR ARTERIAL EMBOLIZATION OTHER TH(ANI Detailed) CPT:46950 (Case 132 COMPLETE) IR US GUIDANCE VASCULAR ACCESS (ANI Detailed) CPT:57478 Clinical History: [place] IS NOT under investigation for COVID-19 or [...] pager listed below: User placing orders pager: [phone] LAST CREATININE 1.0 (07/13/22) Report Status: Verified Date Reported: JULY 17, 2022 Date Verified: JULY 17, 2022 Die Grinder E-Sig:/ES/MALCOM LANGLEY MD Report: RADIOLOGIST: Malcom Langley [...] angiogram and runoff. 12. Closure of right CERTIFIED PROSTHETIST/ORTHOTIST with Angio-Seal device. HISTORY: Metastatic renal cell [...] into the left brachial artery. The 5 Anguillan sheath was exchanged for a 6 Anguillan sheath that was advanced into the left [...] arteries. Sheath and catheters were removed and CERTIFIED PROSTHETIST/ORTHOTIST arteriotomy was closed using Angioseal. There is patent hemostasis. No bleeding or hematoma noted. Sterile dressing applied. 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 Primary Interpreting Staff: MALCOM LANGLEY MD, INTERVENTIONAL RADIOLOGIST (Die Grinder) /MALCOM HE [facility] July 14, 2022 06:44 AM HUMERUS LEFT MINIMUM 2 VIEWS: MARYJO WAGNER [id number] -1950 M Exm Date: JULY 14, 2022@06:44 Req Phys: WESTON SEPULVEDA Pat Loc: 07-14-2022@07:13 Img Loc: MAIN X-RAY Service: PRIMARY CARE - MED OFFICE (Case [id number] COMPLETE) HUMERUS LEFT MINIMUM 2 VIEWS (RAD Detailed) CPT:67187 Reason for Study: post reduction Clinical History: Report Status: Verified Date Reported: JULY 14, 2022 Date Verified: JULY 14, 2022 Die Grinder E-Sig: Report: HUMERUS LEFT MINIMUM 2 VIEWS [...] less likely. READING PHYSICIAN: Xavier Merrill MD -[phone] 07/14/2022 5:11 PDT [facility] National Teleradiology Program [phone] (For Medical Practitioner Use Only) Attention Patients / Veterans: If you have questions or concerns about these test results, please contact your ordering provider or primary care team. Primary Interpreting Staff: RADIOLOGY,OUTSIDE SERVICE, Staff Physician / RADIOLOGY,OUTSIDE SERVICE [facility] July 13, 2022 10:07 AM HUMERUS LEFT MINIMUM 2 VIEWS: MARYJO WAGNER [id number] -1950 M Exm Date: JULY 13, 2022@10:07 Req Phys: WHITNEY ANDERSON Loc: [facility] EMERGENCY DEPT WALK-IN (Re Img Loc: MAIN X-RAY Service: Unknown (Case [id number] COMPLETE) HUMERUS LEFT MINIMUM 2 VIEWS (RAD Detailed) CPT:77687 Proc Modifiers : LEFT Reason for Study: L arm pain Clinical History: [place] IS NOT under investigation for COVID-19 or is COVID-19 negative Atraumatic left upper extremity pain that is located midshaft humerus distally to the mid forearm. Clinical concern for dislocation versus fracture versus bone mets Responsible provider name and phone number to notify for critical findings if other than user placing the order and pager listed below: User placing orders pager: [phone] LAST CREATININE 0.8 (05/10/22) Report Status: Verified Date Reported: JULY 13, 2022 Date Verified: JULY 13, 2022 Die Grinder E-Sig:/ES/ALBINA COWAN MD, FACR, CCD Report: EXAMINATION: [...] Staff: ALBINA COWAN MD, FACR, STAFF RADIOLOGIST (Die Grinder) /BSF ALBINA COWAN [facility] July 13, 2022 10:07 AM ELBOW LEFT 3 OR MORE VIEWS: MARYJO WAGNER DIRK [id number] -1950 M Ex Date: JULY 13, 2022@10:07 Req Phys: WHINTEY ANDERSON Pat Loc: [facility] EMERGENCY DEPT WALK-IN (Re Img Loc: MAIN X-RAY Service: Unknown (Case [id number] COMPLETE) ELBOW LEFT 3 OR MORE VIEWS (RAD Detailed) CPT:94409 Proc Modifiers : LEFT Reason for Study: L arm pain Clinical History: [place] IS NOT under investigation for COVID-19 or is COVID-19 negative Atraumatic left upper extremity pain that is located midshaft humerus distally to the mid forearm. Clinical concern for dislocation versus fracture versus bone mets Responsible provider name and phone number to notify for critical findings if other than user placing the order and pager listed below: User placing orders pager: [phone] LAST CREATININE 0.8 (05/10/22) Report Status: Verified Date Reported: JULY 13, 2022 Date Verified: JULY 13, 2022 Die Grinder E-Sig:/ES/ALBINA COWAN MD, FACR, CCD Report: EXAMINATION: [...] Staff: ALBINA COWAN MD, FACR, STAFF RADIOLOGIST (Die Grinder) /BSF ALBINA COWAN [facility] July 13, 2022 10:07 AM FOREARM LEFT 2 VIEWS: MARYJO WAGNER [id number] -1950 M Exm Date: JULY 13, 2022@10:07 Req Phys: WHITNEY ANDERSON Pat Loc: [facility] EMERGENCY DEPT WALK-IN (Re Img Loc: MAIN X-RAY Service: Unknown (Case [id number] COMPLETE) FOREARM LEFT 2 VIEWS (RAD Detailed) CPT:09054 Proc Modifiers : LEFT Reason for Study: L arm pain Clinical History: [place] IS NOT under investigation for COVID-19 or is COVID-19 negative Atraumatic left upper extremity pain that is located midshaft humerus distally to the mid forearm. Clinical concern for dislocation versus fracture versus bone mets Responsible provider name and phone number to notify for critical findings if other than user placing the order and pager listed below: User placing orders pager: [phone] LAST CREATININE 0.8 (05/10/22) Report Status: Verified Date Reported: JULY 13, 2022 Date Verified: JULY 13, 2022 Die Grinder E-Sig:/ES/ALBINA COWAN MD, FACR, CCD Report: EXAMINATION: [...] Staff: ALBINA COWAN MD, FACR, STAFF RADIOLOGIST (Die Grinder) /BSF ALBINA COWAN [facility] Pathology Reports: [...] Lab: [facility] [CLIA# [id number]] [place] [address] - - - - - - - [...] - - - - $TEXT Submitted by: MICHAEL BALBUENA Date obtained: July 18, 2022 - [...] DIAGNOSIS: pathologic distal humeral shaft fracture Surgeon/physician: MICHAEL BALBUENA MD Attending Surgeon: Michael Balbuena MD =-=-=-=-=-=-=-=-=-=-=-=-=- =-=-=-=-=-=-=-=-=-=-=-=-=- =-=-=-=-=-=-=-=-=-=-=-=-=- = - [...] By: [facility] [CLIA# [id number]] [place] [address] $FTR - - - - - - [...] - - MARYJO WAGNER STANDARD FORM 515 ID:[id number] SEX:M :1950 AGE: 72 LOC:[facility] PATHOLOGY PRO FEE ADM:June DX:PATHOLOGIC FX LF HUMERUS PCP: Michael Balbuena MD /sangita/ JIAN SANDOVAL STAFF PATHOLOGIST, PATHOLOGY & LABORATORY MED C Signed: 07/21/2022 14:37 JIAN SANDOVAL [facility] Encounter Notes: All associated encounter notes This section contains the clinical notes associated to the Encounter. Date/Time Encounter Note(s) Provider Source July 21, 2022 02:54 PM DISCHARGE SUMMARY: LOCAL TITLE: Discharge Summary STANDARD TITLE: DISCHARGE SUMMARY DICT DATE: JULY 21, 2022@12:15 ENTRY DATE: JULY 21, 2022@12:15:17 DICTATED BY: AMIRA LEYVA ATTENDING: AMIRA LEYVA URGENCY: routine STATUS: COMPLETED MEDICINE DISCHARGE SUMMARY Admission Date: 07/13/22 Discharge Date: 07/21/22 DISCHARGE DIAGNOSES 1. Pathologic L humerus fracture s/p ORIF L humerus 2. Metastatic prostate cancer 3. RCC 4. HTN PROCEDURES/TESTS PERFORMED 1. ORIF L humerus CONSULTATIONS OBTAINED 1. Orthopedics, Heme/Onc HISTORY AND HOSPITAL COURSE This 72 y/o who underwent surgery for pathologic L humerus fracture. He had respiratory failure post op. He worked with PT/OT. He has declined treatment for metastatic RCC and prostate ca and chose to discharge home with . Referral was made for outpt rad onc in case pt wishes to pursue that. Patient's other medical problems have been addressed here as well, and treated as appropriate. HOSPITAL COURSE BY PROBLEM 72 years old MALE with metastatic RCC (untreated), prostate cancer, HTN, SANTHOSH and obesity presenting with L humerus fracture. #. Pathologic L humerus fracture: likely represents RCC metastases. Orthopedic surgery evaluated patient and taken to OR 07/18/2022 for following: Procedure: Open reduction internal fixation left distal humerus fracture with tumor excision, cement augmentation, and olecranon osteotomy Implants: All Synthes - Left 6 hole LCP Medial Distal humerus plate - Left 5 hole LCP lateral distal humerus plate - 1x 2.7mm Metaphyseal screw, self-tapping 45 mm - 2.7mm variable angle locking screw: 1x 36mm; 2x 46mm; 4 x60 mm - 3.5mm cortical screw: 2x 24mm; 2x 26mm; 1x 28mm; 1x 30mm - 6.5mm cannulated screw: 90 mm x1 - PMMA cement Tourniquet Time: 130 cc Anesthesia: GETA EBL: 450 ml Still having issues w/ uncontrolled post op pain - Had IR emolization Monday 07/17 - hydromorphone IV 0.5mg q2 hrs PRN pain but discouraging use of IV pain medication - added polyethylene glycol for bowel regimen - D/C IVF pending HD profile and PO intake - Post op PT/OT following #. Prostate cancer: - patient straight caths, regularly and ORDERED MORTON CATHETER FOR PATIENT UNTIL HE IS BETTER ABLE TO USE ARM TO STRAIGHT CATH FOLLOWING SURGERY (COULD BE 6 WEEKS FROM SURGERY) - Plan to discharge home w/ morton - he had been using tamsulosin intermittently (when he wanted to try void freely) but not recently. #. Renal cell cancer - Has extensive metastatic disease (see CT scan from 03/2022 in our system) and refusing palliative immunotherapy. Not on any treatments for RCC; however, it's not clear if patient has embraced palliative/hospice philosophy either. Last seen by hem/onc 05/18. -NTD -Discussed possibility of radiation therapy 07/19 and patient was not interested in pursuing at that time #. Acute post operatitve hypoxemic respiratory failure - Resolved w/ incentive spirometry and most likely due to post op atelectasis. Pt continues to require 2L NC on POD 1. Perhaps some degree of interstitial fluid in lungs due to IVF + atelectasis. -D/C IVf -Incentive spirometry #. Acute post operative blood loss anemia - Baseline Hgb ~11 and Hgb dropped to 8.2 g/dl following surgery. Iron studies c/w iron deficiency anemia. -Defer blood transfusion unless symptomatic -One time 1,000 mg IV iron dextran 07/20 #. Essential HTN - Holding EXPANDER lisinopril pending more stable blood pressures #. Goals of Care/Self Cares at home: patient is very independent with good outlook (despite metastatic RCC). He has been able to maintain self-cares at home with and symptoms under control (once fracture managed). But between now and his , could potentially need more support. Offered Palliative consult to discuss; patient was reluctant. Wants to return home w/ . EXAM AT THE TIME OF DISCHARGE CONSTITUTIONAL: In no acute physical distress. L arm in sling. Temperature: 98.2 F [36.8 C] (07/21/2022 11:26) Pulse: 65 (07/21/2022 11:26) Respirations: 21 (07/21/2022 11:26) Blood Pressure: 124/62 (07/21/2022 11:26) Pain: 4 (07/21/2022 11:26) EYES: No conjunctival injection. ENT: Nose with no drainage. RESPIRATORY: Lungs clear to auscultation. CARDIOVASCULAR: Heart is with regular rate and rhythm. GASTROINTESTINAL: Abdomen soft, nontender. Bowel sounds are present. SKIN: No jaundice. NEURO: Alert and oriented times 3, normal speech. LABORATORY ON THE DAY OF DISCHARGE LAB RESULTS TODAY - NONE FOUND DISCHARGE INFORMATION/INSTRUCTIONS and POST-DISCHARGE CARE PLAN 1. Disposition: Home. 2. Diet: REGULAR. 3. Activity: As tolerated. 4. Code Status during this hospital stay: DNR/DNI 5. Follow-up: A) With Primary Doctor in 7-10 days B) With rad onc if pt chooses C) With orthopedics per instruction . INSTRUCTIONS TO THE : Seek medical attention immediately if you would experience any signs of worsening: weakness, lightheadedness, dizziness, shortness of breath, chest pain, fever, chills, abdominal pain, nausea, vomiting, diarrhea, black stools or blood in stool, burning on urination or blood in urine. . MEDICATIONS -------- For the full list of discharge medications, please see the contemporaneous [facility] MED INSTRUCTION/RECONCILIATION note. Time spent on discharge process: 40 minutes, due to extended counseling and co?rdination of care. /sangita/ AMIRA LEYVA PHYSICIAN Signed: 07/26/2022 12:48 Receipt Acknowledged By: * AWAITING SIGNATURE JUANY RAMOS COURTNEY E [facility] July 21, 2022 02:37 PM PATHOLOGY REPORT: LOCAL TITLE: SURGICAL PATHOLOGY REPORT STANDARD TITLE: PATHOLOGY REPORT DATE OF NOTE: JULY 21, 2022@14:37:27 ENTRY DATE: JULY 21, 2022@14:37:27 AUTHOR: JIAN SANDOVAL COSIGNER: URGENCY: STATUS: COMPLETED $APHDR Reporting Lab: [facility] [CLIA# [id number]] [address] [place] [address] - - - - - - - [...] - - - PATHOLOGY REPORT Accession No. [id number] - - - - - - - - - - - - - - - - - - - - - - - - - - - - - - - - - - - - - - - - $TEXT Submitted by: MICHAEL BALBUENA Date obtained: July 18, 2022 - [...] DIAGNOSIS: pathologic distal humeral shaft fracture Surgeon/physician: MICHAEL BALBUENA MD Attending Surgeon: Michael Balbuena MD =-=-=-=-=-=-=-=-=-=-=-=-=-=- =-=-=-=-=-=-=-=-=-=-=-=-=-=- =-=-=-=-=-=-=-=-=-=-=-= - - - - - - - [...] is entirely submitted in A-D. CE. (D). [facility] FROZEN SECTION DIAGNOSES: SPEC. 1 - [...] By: [facility] [CLIA# [id number]] [place] [address] $FTR - - - - - - [...] - - MARYJO WAGNER STANDARD FORM 515 ID:[id number] SEX:M :1950 AGE: 72 LOC:[facility] PATHOLOGY PRO FEE ADM:June DX:PATHOLOGIC FX LF HUMERUS PCP: Michael Balbuena MD /sangita/ JIAN SANDOVAL STAFF PATHOLOGIST, PATHOLOGY & LABORATORY [facility] Signed: 07/21/2022 14:37 JIAN SANDOVAL [facility] July 21, 2022 01:52 PM NURSING DISCHARGE NOTE: LOCAL TITLE: [facility] NURSING DISCHARGE SUMMARY STANDARD TITLE: NURSING DISCHARGE NOTE DATE OF NOTE: JULY 21, 2022@13:52 ENTRY DATE: JULY 21, 2022@13:52:31 AUTHOR: JAIME STEINBERG COSIGNER: URGENCY: STATUS: COMPLETED Nursing Discharge Summary Home Discharge date and time: June@1500 Accompanied by: Family Kayli Transportation: Own car Verify that the Contact Name and Phone Number are correct: MARYJO WAGNER [phone] Condition: Alert, Oriented Skin Condition: Intact Incision: No Education/Teach Back Patient and/or Caregiver was given sunshine information in discharge instruction and able to teach back verbally or by return demonstration. Yes, demonstrated understanding Does patient have vascular access? No Does patient require assistance with outpatient visits due to cognitive limitations, mobility limitations, or has need for nursing assistance throughout the clinic day? Patient DOES NOT have an active BELINDA flag assigned. Racquel /sangita/ JAIME STEINBERG, RN REGISTERED NURSE Signed: 07/21/2022 15:00 JAIME STEINBERG [facility] July 21, 2022 01:20 PM NURSING INPATIENT NOTE: LOCAL TITLE: [facility] NURSING PROGRESS NOTE STANDARD TITLE: NURSING INPATIENT NOTE DATE OF NOTE: JULY 21, 2022@13:20 ENTRY DATE: JULY 21, 2022@13:20:27 AUTHOR: JAIME STEINBERG EXP COSIGNER: URGENCY: STATUS: COMPLETED Nursing Shift Note Nursing care provided from [id number] Pt alert and oriented X4, calm and cooperative with care. Up independently, and able to ambulate to hallway. Less pain to left elbow, denies SOB/distress, VSS and afebrile. Morton in place and intact, draining well. D/c home at 1500. [facility] for detailed assessment SKIN REINSPECTION/REASSESSMENT SKIN INSPECTION: Skin Color: Usual for ethnicity Skin Temperature: Warm Skin Moisture: Normal Skin Turgor: Elastic (normal/immediate) Afshin Skin Assessment: The patient's Afshin Scale Score is 19. The patient is considered not at risk for development of pressure ulcers/injuries. Sensory perception -- ability to respond meaningfully to pressure-related discomfort Slightly limited. Moisture -- degree to which skin is exposed to moisture Rarely moist. Activity -- ability to change and control body position Walks occasionally. Mobility -- ability to change and control body position Slightly limited. Nutrition -- usual food intake patterns Adequate. Friction and shear No apparent problem. INTERVENTIONS: No change in previous interventions as listed below Pressure Ulcer-Education 07/19/2022 Educate Importance Of Changing Position Pressure Ulcer-Friction/Shear 07/19/2022 Head of Bed Below 30 Degrees When Not Eating Pressure Ulcer-Moisture 07/19/2022 Maintain Clean Dry Skin No More Than 1 Linen Layer Pressure Ulcer-Nutrition 07/19/2022 Tray Set Up And Assistance Pressure Ulcer-Pressure Reducing 07/19/2022 Frequent Position Changes Pressure Ulcer-Remobilize 07/19/2022 Encourage Activity As Tolerated Vaaes Pressure Injury Interventions 07/17/2022 Vaaes Pressure Injury Int Not Needed RISK FACTORS THAT INCREASE RISK FOR DEVELOPING PRESSURE INJURIES The patient/resident does not have any additional risk factors. SKIN INTEGRITY: Intact *8 Has protective mepilex over the right side of his neck to prevent the left arm sling strap from irritating his skin. Skin Interventions performed this shift: Patient turned [id number] or as appropriate while in bed. /sangita/ JAIME STEINBERG RN REGISTERED NURSE Signed: 07/21/2022 14:59 JAIME STEINBERG [facility] July 21, 2022 12:11 PM NURSING INPATIENT NOTE: LOCAL TITLE: [facility] NURSING PROGRESS NOTE STANDARD TITLE: NURSING INPATIENT NOTE DATE OF NOTE: JULY 21, 2022@12:11 ENTRY DATE: JULY 21, 2022@12:11:10 AUTHOR: JAIME STEINBERG EXP COSIGNER: URGENCY: STATUS: COMPLETED IMPORTANT PHONE NUMBERS: IF YOU HAVE A LIFE THREATENING EMERGENCY CALL 911 If you have questions about anything related to your inpatient care at the [facility] or your future care in the [facility], call the Call Center or After Hour numbers listed below. If you receive care at another MD facility or with a community provider, you will need to call them for questions about your future care. -Call Center Sunday-Sunday, 7:30-4:30 at [phone] or Toll Free -After Hours- toll-free -Outpatient Pharmacy - -Verification of Appointments for the following month - *'S CRISIS LINE NUMBER IS (TALK)* Discharge from ICU, Acute Care, Acute Rehab, or CLC C-SSRS Screening [place] Suicide Severity Rating Scale (C-SSRS) screener 1. [...] required due to responses to other questions. Written education reviewed and given on: Other diagnosis/instructions: Left humerus pathologic fracture s/p ORIF Patient and/or other caregiver has had an opportunity to participate in the development of the discharge plan. The patient had an opportunity to ask questions. While in the hospital you were treated for: Left humerus pathologic fracture s/p ORIF Primary Care Team: Primary Care Team: TINA PALACIO Primary Care Provider: JUANY WYNN No Associate Provider Assigned. Attending Physician: AMIRA LEYVA You are being discharged to: Home Phone number you can be contacted at for the next 2 weeks: Your diet is Regular Activity: Lifting: LUE When you go home you will need: Treatments: None Pain Management Discussed Supplies: None Catheter supplies: Morton bag Leg bag Catheter strap Continuing care needs: If you receive care at [place] you will need to call the Primary Care Call Center number at [phone]. If you receive care at another MD facility or community provider, you will need to call them to arrange your follow up care. For surgical patients - If you don't receive a follow up clinic appointment within a week, please call the Call Center at [phone]. Follow up not ordered at this time. Call the Call Center if problems occur at [phone]. Future appointments: 10/25/2022 07:00 [facility] LAB BLOOD DRAWING LAM INPATIENT APPOINTMENT 10/25/2022 09:00 [facility] UROL CHIEF RES.2V INPATIENT APPOINTMENT A copy of these instructions has been given to: Patient Family/other caregiver: IM - Immunizations Immunization Series Date Facility Reaction Info TD (ADULT) 09/27/2015 ZEI* <C> TD(ADULT) UNSPECIFIED FORMULATION Amanda cl* TDAP Oleksandr H* <C> See the Detailed Immunizations Health Summary Component[DIM] for Comments Copy of PROVIDERS DISCHARGE ORDERS Discharge Order Discharge Date: June Discharged to: Home Discharge Type: Hospital Discharge Provider Completing Summary: Amira Leyva Attending Physician: Amira Leyva Discharge Diagnosis: Left humerus pathologic fracture s/p ORIF Discharge Condition: Good Discharge Instructions: Follow up with primary care in 7-10 days, with orthopedics RN in 2 weeks and with orthopedics clinic in 6 weeks with XR (as arranged by orthopedics). An outpatient radiation oncology referral was made in case you would like to follow up. Discharge Order Weight Bearing Restriction: Yes, LUE NWB Bathing Restriction: No, Activity Restriction: Yes, LUE per orthopedics Diet: Regular NSAID/Aspirin Restriction (MED/Date to Resume): no Wound Condition: Clean/Dry/Healing Oxygen Needed for Transport? No Special Transportation Needs: None /sangita/ JAIME STEINBERG RN REGISTERED NURSE Signed: 07/21/2022 14:59 JAIME STEINBERG [facility] July 21, 2022 07:13 AM ORTHOPEDIC SURGERY ATTENDING NOTE: LOCAL TITLE: ORTHOPEDIC INPT PROGRESS NOTE STANDARD TITLE: ORTHOPEDIC SURGERY ATTENDING NOTE DATE OF NOTE: JULY 21, 2022@07:13 ENTRY DATE: JULY 21, 2022@07:13:24 AUTHOR: EVELYN KRUGER EXP COSIGNER: URGENCY: STATUS: COMPLETED Progress Note INTERVAL EVENTS: SUBJECTIVE: NAEON, AF, VSs. Pain well controlled. Feeling better compared to yesterday. Has no concerns regarding his hand. Wants to dc. OBJECTIVE: Vitals: T 98.2 F [36.8 C] (07/21/2022 02:58) HR 64 (07/21/2022 02:58) RR 18 (07/21/2022 02:58) BP 115/70 (07/21/2022 02:58) O2 93% (07/21/2022 02:58) Pain 3 (07/21/2022 02:58) - Complete Blood Count White count: WBC 7.73 (07/19/22) Hemoglobin: HGB 8.2 L (07/19/22) Hematocrit: HCT 23.8 L (07/19/22) Platelets: PLT 155 (07/19/22) - Complete Metabolic Panel SODIUM 136 (07/19/22) POTASSIUM 4.1 (07/19/22) CHLORIDE 104 (07/19/22) CO2 28 (07/19/22) UREA NITROGEN 24 (07/19/22) CREATININE 0.9 (07/19/22) GLUCOSE 129 H (07/19/22) CALCIUM 8.0 L (07/19/22) MAGNESIUM 1.8 (07/19/22) EGFR (09/29) 03/17/20 @ 0904 111 CREATININE EGFR (CKD-EPI) 07/19/22 @ 0530 90 ALBUMIN 2.9 L (07/19/22) No data available Physical Exam: General: Awake, alert, oriented, no apparent distress, answering questions appropriately Cardiovascular: RRR assessed by peripheral pulse. Extremities warm and well perfused. Respiratory: Breathing comfortably on room air Left upper extremity: -Well-padded posterior slab long-arm splint in place -Noted edema globally to the hand improving relative to yesterday. -Able to wiggle the digits of his hand better than yesterday. Fires AIN/PIN/IO with ease. Improved from yesterday. -Sensation intact to light touch in the axillary nerve distribution. Sensation intact albeit diminished in the ulnar, median, and radial nerve distributions, improved from yesterday -Digits are warm well perfused, capillary refill less than 2 seconds ASSESSMENT AND PLAN: MARYJO WAGNER is a 72 year old MALE with past medical history of metastatic renal cell carcinoma who sustained a pathologic left distal humeral shaft fracture. The patient was initially evaluated by the orthopedic team and placed into a coaptation splint. The patient underwent IR embolization of his lesion on 07/17/2022, and he is now status post open reduction internal fixation of his left pathologic distal humerus fracture with tumor excision and cement augmentation on 07/18/[address] Balbuena. -Ulnar nerve symptoms resolved. -Maintain splint clean, dry, intact -Safe for dc from ortho perspective. F/u 2 wks for splint down and staple removal -Would recommend a radiation oncology consult for the purposes of evaluation and potential treatment. We recognize that the patient has previously denied other possible interventions. The patient may benefit from palliative radiation of the humerus not sooner than 2 weeks postop. However, this would be up to the patient. Primary Team: Medicine Consults: Physical Therapy, Occupational Therapy, Heme-onc - Rad onc consult. Possible irradiation of humerus not sooner than 2 weeks post- op. Pain Control: Multimodal approach, PO with intermittent IV Weight Bearing: NWDerek HAYDEN Activity: Progress as tolerated, therapy POD1 Dressing: Keep splint c/d/i until POD14 Antibiotics: 24 hours of antibiotics postoperatively Diet: ADAT DVT Prophylaxis: SCDs, enoxaparin 30 mg BID while inpatient, and aspirin 162 mg daily when discharged Disposition: Pending pain control, medical stability, mobilization with PT, likely to discharge Follow Up: 2 week with orthopedic nurse, 6 weeks in orthopedic clinic with new XR Staff: Dr. Balbuena was present and scrubbed for the critical portions of the case. /sangita/ EVELYN KRUGER MD RESIDENT Signed: 07/21/2022 07:15 EVELYN KRUGER [facility] July 21, 2022 01:45 AM NURSING INPATIENT NOTE: LOCAL TITLE: [facility] NURSING PROGRESS NOTE STANDARD TITLE: NURSING INPATIENT NOTE DATE OF NOTE: JULY 21, 2022@01:45 ENTRY DATE: JULY 21, 2022@01:45:25 AUTHOR: MAGNUS GOMEZ EXP COSIGNER: URGENCY: STATUS: COMPLETED Nursing care provided from [id number] POD 3 Left distal humerus ORIF, excision of tumor, Olecranon osteotomy Pt slept all night with no complaints. No prns this tours. On-Q intact to left arm. Pt refused assitance from staff with sling, Its to small. I have xl arm and this is a small sling. CMS intact to left hand and fingers. Blood Pressure: 125/74 (07/20/2022 23:22) Heart Rate: 62 (07/20/2022 23:22) Respirations: 18 (07/20/2022 23:22) Temperature: 98.1 F [36.7 C] (07/20/2022 23:22) Pain: 0 (07/20/2022 23:22) Pulse Oximetry: 95% (07/20/2022 23:22) FINGERSTICK GLUCOSE 132 (07/19/22) Recent Labs: PT 11.5 (07/17/22) INR 1.0 PLASMA (07/17/22 05:30) POTASSIUM 4.1 (07/19/22) SODIUM 136 (07/19/22) MAGNESIUM 1.8 (07/19/22) WBC 7.73 (07/19/22) HGB 8.2 L (07/19/22) HCT 23.8 L (07/19/22) CREATININE 0.9 (07/19/22) NEURO: Alert & Oriented x 4, calm & cooperative with cares, able to make needs known, uses call light appropriately CARDIO: Denies C/P, no edema noted, FINISHED GOODS PLANNER < 3 seconds TELE: na RESP: Denies SOB, non-labored breathing, O2 sats 95% on RA GI: Denies N/V, BS active x 4, non-tender abdomen, continent of bowel LBM: DIET: Regular : Morton intact, patent, voided clear yellow urine PAIN: Denies ACTIVITY: Up adlib independently, ambulates occasionally PIV: na SKIN: Left Arm - cast intact No events during this tour. [facility] for further detailed [facility]. /sangita/ MAGNUS GOMEZ RN REGISTERED NURSE Signed: 07/21/2022 06:55 MAGNUS GOMEZ [facility] July 20, 2022 09:23 PM NURSING INPATIENT NOTE: LOCAL TITLE: [facility] NURSING PROGRESS NOTE STANDARD TITLE: NURSING INPATIENT NOTE DATE OF NOTE: JULY 20, 2022@21:23 ENTRY DATE: JULY 20, 2022@21:26:40 AUTHOR: MARIA D BERMEO EXP COSIGNER: URGENCY: STATUS: COMPLETED Nursing Shift Note Nursing care provided from [id number] Highlights from shift: A&O x4. Peasant and cooperative with cares. Up with sba/ independent with ambulation. Some pain controlled with scheduled pain meds. Taking meds whole without issues. Morton intact, draing clear yellow urine. educated pt about morton needing to be below waist to drain, pt understood. Cast in place, sensation intact. IV came out when assessed this evening, was hang on with tape, clinical writer removed and assessed site. No other complaints, will continue to monitor. See ICCA for detailed assessment, Education provided on medication/cares this shift as needed Skin Interventions performed this shift: Patient kept clean and dry with barrier cream applied as ordered. Device(s) removed and skin underneath was inspected. Head of Bed kept below 30 degrees unless otherwise ordered. Other: repositions independently /sangita/ MARIA D BERMEO RN REGISTERED NURSE Signed: 07/20/2022 23:04 MARIA D BERMEO [facility] July 20, 2022 05:51 PM INTERNAL MEDICINE INPATIENT NOTE: LOCAL TITLE: MEDICINE INPT PROGRESS NOTE STANDARD TITLE: INTERNAL MEDICINE INPATIENT NOTE DATE OF NOTE: JULY 20, 2022@17:51 ENTRY DATE: JULY 20, 2022@17:51:09 AUTHOR: BRUCE BALTAZAR EXP COSIGNER: URGENCY: STATUS: COMPLETED MEDICINE INPT PROGRESS NOTE Has ADDENDA Date of service: 07/20/2022 CC: post op pain S: No acute events. Still having uncontrolled pain to R shoulder. Passing gas. Not nauseated. O: vital signs reviewed in ICIP Gen: NAD HEENT: EOMI Neck: supple Lungs: CTAB, no W/R/R CV: RRR, no M/G/R Abd: NTND, active bowel sounds x4 MSK: left arm in sling Ext: no c/c/e Neuro: following commands Skin: dressing overlying left shoulder c/d/i Labs/Imaging Reviewed 72 years old MALE with metastatic RCC (untreated), prostate cancer, HTN, SANTHOSH and obesity presenting with L humerus fracture. #. Pathologic L humerus fracture: likely represents RCC metastases. Orthopedic surgery evaluated patient and taken to OR 07/18/2022 for following: Procedure: Open reduction internal fixation left distal humerus fracture with tumor excision, cement augmentation, and olecranon osteotomy Implants: All Synthes - Left 6 hole LCP Medial Distal humerus plate - Left 5 hole LCP lateral distal humerus plate - 1x 2.7mm Metaphyseal screw, self-tapping 45 mm - 2.7mm variable angle locking screw: 1x 36mm; 2x 46mm; 4 x60 mm - 3.5mm cortical screw: 2x 24mm; 2x 26mm; 1x 28mm; 1x 30mm - 6.5mm cannulated screw: 90 mm x1 - PMMA cement Tourniquet Time: 130 cc Anesthesia: GETA EBL: 450 ml Still having issues w/ uncontrolled post op pain - Had IR emolization Monday 07/17 - hydromorphone IV 0.5mg q2 hrs PRN pain but discouraging use of IV pain medication - added polyethylene glycol for bowel regimen - D/C IVF pending HD profile and PO intake - Post op PT/OT following #. Prostate cancer: - patient straight caths, regularly and ORDERED MORTON CATHETER FOR PATIENT UNTIL HE IS BETTER ABLE TO USE ARM TO STRAIGHT CATH FOLLOWING SURGERY (COULD BE 6 WEEKS FROM SURGERY) - Plan to discharge home w/ morton - he had been using tamsulosin intermittently (when he wanted to try void freely) but not recently. #. Renal cell cancer - Has extensive metastatic disease (see CT scan from 03/2022 in our system) and refusing palliative immunotherapy. Not on any treatments for RCC; however, it's not clear if patient has embraced palliative/hospice philosophy either. Last seen by hem/onc 05/18. -NTD -Discussed possibility of radiation therapy 07/19 and patient was not interested in pursuing at that time #. Acute post operatitve hypoxemic respiratory failure - Resolved w/ incentive spirometry and most likely due to post op atelectasis. Pt continues to require 2L NC on POD 1. Perhaps some degree of interstitial fluid in lungs due to IVF + atelectasis. -D/C IVf -Incentive spirometry #. Acute post operative blood loss anemia - Baseline Hgb ~11 and Hgb dropped to 8.2 g/dl following surgery. Iron studies c/w iron deficiency anemia. -Defer blood transfusion unless symptomatic -One time 1,000 mg IV iron dextran 07/20 #. Essential HTN - Holding EXPANDER lisinopril pending more stable blood pressures #. Goals of Care/Self Cares at home: patient is very independent with good outlook (despite metastatic RCC). He has been able to maintain self-cares at home with and symptoms under control (once fracture managed). But between now and his , could potentially need more support. Offered Palliative consult to discuss; patient was reluctant. Wants to return home w/ . #. PPx - SQ enoxaparin #. Diet - Regular diet #. Code status - DNAR/DNI #. Disposition - Possibly home by Sunday or pending more adequate pain control (not needing IV symptom medications). Bruce Baltazar MD Hospitalist/H2 Staff P [phone] /sangita/ BRUCE BALTAZAR MD PHYSICIAN Signed: 07/20/2022 17:56 07/20/2022 ADDENDUM STATUS: COMPLETED scheduled lyrica 25 mg po tid and robaxin 500 mg po qid as adjuncts so that patient not as dependent on IV hydromorphone for post op pain. /sangita/ BRUCE BALTAZAR MD PHYSICIAN Signed: 07/20/2022 18:24 BRUCE BALTAZAR [facility] July 20, 2022 01:27 PM NURSING INPATIENT NOTE: LOCAL TITLE: [facility] NURSING PROGRESS NOTE STANDARD TITLE: NURSING INPATIENT NOTE DATE OF NOTE: JULY 20, 2022@13:27 ENTRY DATE: JULY 20, 2022@13:27:10 AUTHOR: IOANA FRANZ COSIGNER: URGENCY: STATUS: COMPLETED Nursing Shift Note Nursing care provided from dayshift 07:30-16:00 Highlights from shift: The patient is up indep has a left arm cast/sling from an arm fracture, unable to straight cath ordered morton cath to be placed (short-term until the patient has use of his left arm and can straight cath. The patient is a possible d/c for tomorrow. Received Iron dextran with test dose, was able to tolerate without any problems. 16fr morton cath placed after the noon meal. See ICCA for detailed assessment SKIN REINSPECTION/REASSESSMENT SKIN INSPECTION: Skin Color: Usual for ethnicity Skin Temperature: Warm Skin Moisture: Normal Skin Turgor: Elastic (normal/immediate) Afshin Skin Assessment: The patient's Afshin Scale Score is 19. The patient is considered not at risk for development of pressure ulcers/injuries. Sensory perception -- ability to respond meaningfully to pressure-related discomfort Slightly limited. Moisture -- degree to which skin is exposed to moisture Rarely moist. Activity -- ability to change and control body position Walks occasionally. Mobility -- ability to change and control body position Slightly limited. Nutrition -- usual food intake patterns Adequate. Friction and shear No apparent problem. INTERVENTIONS: No change in previous interventions as listed below Pressure Ulcer-Education 07/19/2022 Educate Importance Of Changing Position Pressure Ulcer-Friction/Shear 07/19/2022 Head of Bed Below 30 Degrees When Not Eating Pressure Ulcer-Moisture 07/19/2022 Maintain Clean Dry Skin No More Than 1 Linen Layer Pressure Ulcer-Nutrition 07/19/2022 Tray Set Up And Assistance Pressure Ulcer-Pressure Reducing 07/19/2022 Frequent Position Changes Pressure Ulcer-Remobilize 07/19/2022 Encourage Activity As Tolerated Vaaes Pressure Injury Interventions 07/17/2022 Vaaes Pressure Injury Int Not Needed RISK FACTORS THAT INCREASE RISK FOR DEVELOPING PRESSURE INJURIES The patient/resident does not have any additional risk factors. SKIN INTEGRITY: Intact *8 Has protective mepilex over the right side of his neck to prevent the left arm sling strap from irritating his skin. Skin Interventions performed this shift: Patient turned [id number] or as appropriate while in bed. /es/ IOANA FRANZRN REGISTERED NURSE Signed: 07/20/2022 14:15 IOANA FRANZ [facility] July 20, 2022 09:40 AM PASTORAL CARE NOTE: LOCAL TITLE: CORPORATE LICENSED BROKER-VISITATION NOTE STANDARD TITLE: PASTORAL CARE NOTE DATE OF NOTE: JULY 20, 2022@09:40 ENTRY DATE: JULY 23, 2022@09:40:09 AUTHOR: VALENCIA CRAIG EXP COSIGNER: URGENCY: STATUS: COMPLETED SUBJECT: Holy Communion Pastoral visit. The patient asked to receive Shabbir in the most Holy Eucharist. The Sacrament was celebrated with the patient. Progress note entered for Brother Concepción Morales, [facility] - Shinto Extra Ordinary [employer]ipe Lines Supervisor of [facility] - Volunteer. /es/ FATHER VALENCIA CALVIN) KIARA CHIEF, CORPORATE LICENSED BROKER SERVICE Signed: 07/23/2022 09:40 VALENCIA CRAIG [facility] July 20, 2022 07:25 AM ORTHOPEDIC SURGERY ATTENDING NOTE: LOCAL TITLE: ORTHOPEDIC INPT PROGRESS NOTE STANDARD TITLE: ORTHOPEDIC SURGERY ATTENDING NOTE DATE OF NOTE: JULY 20, 2022@07:25 ENTRY DATE: JULY 20, 2022@07:25:25 AUTHOR: EVELYN KRUGER EXP COSIGNER: URGENCY: STATUS: COMPLETED Progress Note INTERVAL EVENTS: SUBJECTIVE: NAEON, AF, VSS. Pain well controlled. Doing well. Improved from yesterday. OBJECTIVE: Vitals: T 97.7 F [36.5 C] (07/20/2022 07:13) HR 72 (07/20/2022 07:13) RR 18 (07/20/2022 07:13) BP 118/66 (07/20/2022 07:13) O2 94% (07/20/2022 07:13) Pain 5 (07/20/2022 07:13) - Complete Blood Count White count: WBC 7.73 (07/19/22) Hemoglobin: HGB 8.2 L (07/19/22) Hematocrit: HCT 23.8 L (07/19/22) Platelets: PLT 155 (07/19/22) - Complete Metabolic Panel SODIUM 136 (07/19/22) POTASSIUM 4.1 (07/19/22) CHLORIDE 104 (07/19/22) CO2 28 (07/19/22) UREA NITROGEN 24 (07/19/22) CREATININE 0.9 (07/19/22) GLUCOSE 129 H (07/19/22) CALCIUM 8.0 L (07/19/22) MAGNESIUM 1.8 (07/19/22) EGFR (09/29) 03/17/20 @ 0904 111 CREATININE EGFR (CKD-EPI) 07/19/22 @ 0530 90 ALBUMIN 2.9 L (07/19/22) No data available Physical Exam: General: Awake, alert, oriented, no apparent distress, answering questions appropriately Cardiovascular: RRR assessed by peripheral pulse. Extremities warm and well perfused. Respiratory: Breathing comfortably on room air Extremities: Left upper extremity: -Well-padded posterior slab long-arm splint in place -Noted edema globally to the hand -Able to wiggle the digits of his hand. Fires AIN/PIN/IO. -Sensation intact to light touch in the axillary nerve distribution. Sensation intact albeit diminished in the ulnar, median, and radial nerve distributions, improved from yesterday -Digits are warm well perfused, capillary refill less than 2 seconds ASSESSMENT AND PLAN: MARYJO WAGNER is a 72 year old MALE with past medical history of metastatic renal cell carcinoma who sustained a pathologic left distal humeral shaft fracture. The patient was initially evaluated by the orthopedic team and placed into a coaptation splint. The patient underwent IR embolization of his lesion on 07/17/2022, and he is now status post open reduction internal fixation of his left pathologic distal humerus fracture with tumor excision and cement augmentation on 07/18/[address] Balbuena. -Ulnar nerve symptoms resolving. Able to fire IO and sensation improving. Anticipate no further issues and continued recovery. -Maintain splint clean, dry, intact -PT/OT -Would recommend a radiation oncology consult for the purposes of evaluation and potential treatment. We recognize that the patient has previously denied other possible interventions. The patient may benefit from palliative radiation of the humerus not sooner than 2 weeks postop. However, this would be up to the patient. Primary Team: Medicine Consults: Physical Therapy, Occupational Therapy, Heme-onc - Rad onc consult. Possible irradiation of humerus not sooner than 2 weeks post- op. Pain Control: Multimodal approach, PO with intermittent IV Weight Bearing: NWB JACKELYN Activity: Progress as tolerated, therapy POD1 Dressing: Keep splint c/d/i until POD14 Antibiotics: 24 hours of antibiotics postoperatively Diet: ADAT DVT Prophylaxis: SCDs, enoxaparin 30 mg BID while inpatient, and aspirin 162 mg daily when discharged Disposition: Pending pain control, medical stability, mobilization with PT, likely to discharge Follow Up: 2 week with orthopedic nurse, 6 weeks in orthopedic clinic with new XR Staff: Dr. Balbuena was present and scrubbed for the critical portions of the case. /sangita/ EVELYN KRUGER MD RESIDENT Signed: 07/20/2022 07:27 EVELYN KRUGER [facility] July 19, 2022 10:20 PM NURSING INPATIENT NOTE: LOCAL TITLE: [facility] NURSING PROGRESS NOTE STANDARD TITLE: NURSING INPATIENT NOTE DATE OF NOTE: JULY 19, 2022@22:20 ENTRY DATE: JULY 19, 2022@22:20:23 AUTHOR: LANG MARQUIS EXP COSIGNER: URGENCY: STATUS: COMPLETED Nursing Shift Note Nursing care provided from 19:30-08:00 Highlights from shift: in pleasant mood per usual. Gave requested oxycodone 10mg, and hydromorphone 0.4mg/0.4ml for left arm pain which was effective. assisted with sic twice during this time with output of 375ml and 525ml. Input 900ml. stating that his arm pain has improved from previous day. Afebrile. Denies SOB. Slept most of the night. See ICCA for detailed assessment Skin Interventions performed this shift: Patient turned [id number] or as appropriate while in bed. Patient's heels elevated with pressure relief boots or pillows under calves. Patient kept clean and dry with barrier cream applied as ordered. Device(s) removed and skin underneath was inspected. Head of Bed kept below 30 degrees unless otherwise ordered. Other: independent with repositioning. /ERIN Walker,RN,CRRN JRB Signed: 07/20/2022 07:03 LANG MARQUIS [facility] July 19, 2022 06:09 PM PASTORAL CARE NOTE: LOCAL TITLE: CORPORATE LICENSED BROKER-ANOINTING NOTE STANDARD TITLE: PASTORAL CARE NOTE DATE OF NOTE: JULY 19, 2022@18:09 ENTRY DATE: JULY 19, 2022@18:09:34 AUTHOR: FARHAT TORRES EXP COSIGNER: URGENCY: STATUS: COMPLETED While making Unit Visitations, stopped to visit eve, who has self-identified being a Shinto Methodist. [place] was sitting on the edge of his bed. [place] easily entered into conversation. Providing compassionate listening identified some of his laments in life at this time and spoke in a very positive ways the plans to return home. also expressed desire to receive the LORD Shabbir in the Most Holy Sacrament of the Eucharist and the Anointing of the Sick. This clinical writer honored 's request and celebrated the Sacraments concluding with the offering the Apostolic Pardon. Medical Accounting Clerk will following as able and requested. /es/ REV FARHAT TORRES CORPORATE LICENSED BROKER Signed: 07/19/2022 18:21 FARHAT TORRES [facility] July 19, 2022 01:00 PM INTERNAL MEDICINE INPATIENT NOTE: LOCAL TITLE: MEDICINE INPT PROGRESS NOTE STANDARD TITLE: INTERNAL MEDICINE INPATIENT NOTE DATE OF NOTE: JULY 19, 2022@13:00 ENTRY DATE: JULY 19, 2022@17:39:51 AUTHOR: BRUCE BALTAZAR EXP COSIGNER: URGENCY: STATUS: COMPLETED Date of service: 07/19/2022 S: No acute events. Better pain control. Passing gas. Not nauseated. O: vital signs reviewed in ICIP Gen: NAD HEENT: EOMI Neck: supple Lungs: CTAB, no W/R/R CV: RRR, no M/G/R Abd: NTND, active bowel sounds x4 MSK: left arm in sling Ext: no c/c/e Neuro: following commands Skin: dressing overlying left shoulder c/d/i Labs/Imaging Reviewed Hgb down to 8.2 g/dl 72 years old MALE with metastatic RCC (untreated), prostate cancer, HTN, SANTHOSH and obesity presenting with L humerus fracture. #. Pathologic L humerus fracture: likely represents RCC metastases. Orthopedic surgery evaluated patient and taken to OR 07/18/2022 for following: Procedure: Open reduction internal fixation left distal humerus fracture with tumor excision, cement augmentation, and olecranon osteotomy Implants: All Synthes - Left 6 hole LCP Medial Distal humerus plate - Left 5 hole LCP lateral distal humerus plate - 1x 2.7mm Metaphyseal screw, self-tapping 45 mm - 2.7mm variable angle locking screw: 1x 36mm; 2x 46mm; 4 x60 mm - 3.5mm cortical screw: 2x 24mm; 2x 26mm; 1x 28mm; 1x 30mm - 6.5mm cannulated screw: 90 mm x1 - PMMA cement Tourniquet Time: 130 cc Anesthesia: GETA EBL: 450 ml - Had IR emolization Monday 07/17 - hydromorphone IV 0.5mg q2 hrs PRN pain - added polyethylene glycol for bowel regimen - D/C IVF pending HD profile and PO intake - Post op PT/OT ordered - CBC, nutrition labs, iron panel in am 07/19 #. Prostate cancer: - patient straight caths, regularly (twice a day at home) - he had been using tamsulosin intermittently (when he wanted to try void freely) but not recently. #. Renal cell cancer - Has extensive metastatic disease (see CT scan from 03/2022 in our system) and refusing palliative immunotherapy. Not on any treatments for RCC; however, it's not clear if patient has embraced palliative/hospice philosophy either. Last seen by hem/onc 05/18. -NTD -Discussed possibility of radiation therapy 07/19 and patient was not interested in pursuing at that time #. Acute post operatitve hypoxemic respiratory failure - Pt continues to require 2L NC on POD 1. Perhaps some degree of interstitial fluid in lungs due to IVF + atelectasis. -D/C IVf -CXR in am -Incentive spirometry #. Acute post operative blood loss anemia - Baseline Hgb ~11 and Hgb dropped to 8.2 g/dl following surgery. Iron studies c/w iron deficiency anemia. -Defer blood transfusion unless symptomatic -Consider IV iron dextran -Repeat Hgb or if pt becoming more symptomatic #. Essential HTN - Holding EXPANDER lisinopril pending more stable blood pressures #. Goals of Care/Self Cares at home: patient is very independent with good outlook (despite metastatic RCC). He has been able to maintain self-cares at home with and symptoms under control (once fracture managed). But between now and his , could potentially need more support. Offered Palliative consult to discuss; patient was reluctant. Patient with important procedures Mon, Tues; but there will be presumably be some inpatient time post-operation; asked patient to consider. #. PPx - SQ enoxaparin #. Diet - Regular diet #. Code status - DNAR/DNI #. Disposition - Possible TCU v home w/ home care in coming days pending ability tolerate PO, adequate pain control, and PT/OT assessments. Bruce Baltazar MD Hospitalist/ Staff P [phone] /es/ BRUCE BALTAZAR MD PHYSICIAN Signed: 07/19/2022 17:47 BRUCE BALTAZAR [facility] July 19, 2022 10:22 AM NURSING INPATIENT NOTE: LOCAL TITLE: [facility] NURSING PROGRESS NOTE STANDARD TITLE: NURSING INPATIENT NOTE DATE OF NOTE: JULY 19, 2022@10:22 ENTRY DATE: JULY 19, 2022@10:23 AUTHOR: ALBINA MORRISON EXP COSIGNER: URGENCY: STATUS: COMPLETED Nursing Shift Note Nursing care provided from 07:30-20:00 Highlights from shift: Patient alert and oriented x4. Takes medication whole. Blood glucose < 200. In early afternoon patient able to move thumb. Around dinner time patient able to start moving all of his fingers. After patient started being able to move his fingers he reported that he was starting to feel pain in L arm (received PRN oxycodone 10mg 1x and methocarbamol 1000mg 1x this shift). Patient straight cathed 2x this shift (12:00 for 400mL and 18:05 for 325mL). 4x4 mepilex applied to back of neck due to rubbing from sling strap. See ICCA for detailed assessment, Education provided on medication/cares this shift as needed SKIN REINSPECTION/REASSESSMENT SKIN INSPECTION: Skin Color: Usual for ethnicity Skin Temperature: Warm Skin Moisture: Normal Skin Turgor: Elastic (normal/immediate) Afshin Skin Assessment: The patient's Afshin Scale Score is 18. The patient is at mild risk for development of pressure ulcer/injury. Sensory perception -- ability to respond meaningfully to pressure-related discomfort Slightly limited. Moisture -- degree to which skin is exposed to moisture Rarely moist. Activity -- ability to change and control body position Walks occasionally. Mobility -- ability to change and control body position Slightly limited. Nutrition -- usual food intake patterns Adequate. Friction and shear Potential problem. INTERVENTIONS: New or changed pressure ulcer/injury interventions or medical condition. Education: Teach patient/caregiver importance of changing position frequently for pressure ulcer/injury prevention. Pressure-Redistribution measures: Encourage small, frequent position changes Maximize mobilization: Encourage activity as tolerated Manage moisture: Maintain clean and dry skin No more than one linen layer below the patient/resident Manage nutrition: Provide tray set-up and other assistance as needed Reduce friction and shear: Keep head of bed at or below 30 degrees when not eating RISK FACTORS THAT INCREASE RISK FOR DEVELOPING PRESSURE INJURIES: The patient/resident has the following: Device(s): oxygen tubing, L arm sling Localized abnormality: Bruising: Location(s): L arm Erythema (blanchable) Location: back of neck Skin Interventions performed this shift: Device(s) removed and skin underneath was inspected. Head of Bed kept below 30 degrees unless otherwise ordered. /sangita/ ALBINA MORRISON RN Signed: 07/19/2022 20:06 ALBINA MORRISON [facility] July 19, 2022 09:17 AM WOUND CARE CONSULT: LOCAL TITLE: WOC NURSE CONSULT STANDARD TITLE: WOUND CARE CONSULT DATE OF NOTE: JULY 19, 2022@09:17 ENTRY DATE: JULY 19, 2022@09:17:32 AUTHOR: JAELYN WOODS COSIGNER: URGENCY: STATUS: COMPLETED WOUND OSTOMY CONTINENCE (WOC) NURSING ASSESSMENT: REASON FOR CONSULT: [place] with pathologic fracture left distal humerus, underwent ORIF of humerus 07/18/2022. Has arm sling in place. with some blanchable erythema with very mild skin peeling under right neck strap. Please evaluate. ([place] was sweating also and strap was tighter). ADMISSION DATE: 07/13/22 DIAGNOSIS AND WOUND HISTORY: Per H&P: 72 years old MALE with metastatic RCC (untreated), prostate cancer, HTN, SANTHOSH and obesity presenting with L humerus fracture. PROBLEM LIST: 1. OBESITY, UNSP 2. LIVER CHEM, ABNORMAL 3. Adjustment Disorder with Mixed Anxiety and Depressed Mood 4. Other and unspecified Sleep Apnea 5. Elevated Prostate Specific Antigen (PSA) 6. Dysmetabolic Syndrome X 7. Polyp of colon (SNOMED CT [id number]) 8. Malignant tumor of prostate (SNOMED CT [id number]) 9. Benign hypertension 10. Retention of urine 11. Malignant tumor of kidney parenchyma 12. Multinodular goiter 13. Secondary malignant neoplasm of pancreas ASSESSMENT: is independently ambulating to the his bed from the bathroom upon arrival, A&O, agreeable to assessment. FOCAL SKIN ASSESSMENT: Skin to neck is pink from irritation due to strap on arm sling, some minimal epidermal loss. director of retail marketing reports that sling was just changed out to one that has foam over the strap on the neck. LABS: WBC 7.73 (07/19/22) Afshin Score 17 Mild Risk NUTRITION: ALBUMIN 2.9 L (07/19/22) BOWEL/BLADDER STATUS: Continent DEVICES: IV, arm sling MATTRESS/BED: Standard hospital mattress -- Custom Care is appropriate SITTING SURFACES: Curve Cushion - without Chux!! WOUND TREATMENT/INTERVENTIONS/PLAN OF CARE: - Protection of skin from sling - Pressure injury prevention PRESSURE INJURY PREVENTION: 1) Daily skin inspection 2) Repositioning in Bed Q2 Hours a) As appropriate to prevent pressure to bony prominences. 3) Elevate heels off a) Using pillows or boots 4) Head of Bed<30 degrees (EXCEPT VAD protector or tube feeds) 5) Sitting Precautions a) Encourage pressure relief to bony prominences and use of cushions as appropriate. b)Curve Cushion for WC 6) Mobility a) Encourage safe ambulation with appropriate assistive devices 7) Moisture management a) Keep skin clean and dry using skin barrier for protection and ultrasorb chux for absorption. Use containment devices as needed. 8) Device safety: (oxygen tubing, other respiratory devices, c-collars, TLSO braces, splints, MEKHI wraps, etc. a) Inspect skin under ALL devices every shift 9) Patient education a) Provide patient/family education related to pressure ulcer prevention. COCCYX/SACRUM/BUTTOCKS PREVENTION ORDERS: - Position change q2h hours - SACRAL MEPILEX for protection, apply and conform into crease. - Change DAILY and PRN if soiled or unsalvageable, date dressings. - CURVE CUSHION for chair when OOB, limit chair sitting to 2 hours - NO CHUX!!! - Lorena-cares - BID and PRN - CRITIC-AID or AQUAPHOR to buttocks if incontinent of stool, SENSIPASTE/REMEDY for liquid stool. - BID and PRN - Avoid briefs in bed, trial alt methods to contain urine or stool (condom cath, penis pouch, scheduled toileting) Document any refusals HEEL PROTECTION: - HEEL MEPILEX for protection. - Change Mepilex DAILY and PRN if soiled or unsalvageable, date dressings. - Float heels with a HEEL BEVEL FACE STONER AND POLISHER while in bed - ROOKE BOOTS (or some other type of protective footwear) to BLE's when OOB -- also, while in bed if refuses heel territory sales manager. Document any refusals NECK: If foam on portion of the strap covering the neck continues to shift OK to apply a Mepilex Border for protection. ACTIVITY ORDERS/RECOMMENDATIONS: No limitations from a wound care perspective. GOALS: Maintain intact skin NEXT STEPS: Ongoing pressure injury prevention and protection from trauma. EDUCATION: Pressure Injury Relief DISCHARGE PLANNING: Date and location TBD WOUND CARE: NA HOME CARE SERVICES: NA SUPPLIES: NA FOLLOW UP: No further follow up from [facility] Nursing indicated at this time, if Pressure Injury Prevention Interventions and wound care orders are in place. Please reconsult for additional problems or concerns. /sangita/ Jaelyn Woods RN-BC, BSN, CWOCN Wound and Ostomy Care Nurse Signed: 07/19/2022 09:33 JAELYN WOODS [facility] July 19, 2022 06:32 AM ORTHOPEDIC SURGERY ATTENDING NOTE: LOCAL TITLE: ORTHOPEDIC INPT PROGRESS NOTE STANDARD TITLE: ORTHOPEDIC SURGERY ATTENDING NOTE DATE OF NOTE: JULY 19, 2022@06:32 ENTRY DATE: JULY 19, 2022@06:32:48 AUTHOR: EVELYN KRUGER EXP COSIGNER: URGENCY: STATUS: COMPLETED Progress Note INTERVAL EVENTS: SUBJECTIVE: No acute events overnight, pain well controlled, tolerating a diet, voiding. Endorses paresthesias to his left hand. No other concerns this morning. OBJECTIVE: Vitals: T 98.4 F [36.9 C] (07/19/2022 03:09) HR 66 (07/19/2022 03:09) RR 18 (07/19/2022 03:09) BP 118/70 (07/19/2022 03:09) O2 96% (07/19/2022 03:09) Pain 0 (07/19/2022 03:09) - Complete Blood Count White count: WBC 6.05 (07/17/22) Hemoglobin: HGB 12.7 L (07/17/22) Hematocrit: HCT 36.0 L (07/17/22) Platelets: PLT 179 (07/17/22) - Complete Metabolic Panel SODIUM 139 (07/17/22) POTASSIUM 3.9 (07/17/22) CHLORIDE 106 (07/17/22) CO2 28 (07/17/22) UREA NITROGEN 23 (07/17/22) CREATININE 0.8 (07/17/22) GLUCOSE 107 H (07/17/22) CALCIUM 9.1 (07/17/22) MAGNESIUM 1.9 (07/17/22) EGFR (09/29) 03/17/20 @ 0904 111 CREATININE EGFR (CKD-EPI) 07/17/22 @ 0530 >90 ALBUMIN 3.9 (07/13/22) No data available Physical Exam: General: Awake, alert, oriented, no apparent distress, answering questions appropriately Cardiovascular: RRR assessed by peripheral pulse. Extremities warm and well perfused. Respiratory: Breathing comfortably on room air Extremities: Left upper extremity: -Well-padded posterior slab long-arm splint in place -Noted edema globally to the hand -Unable to wiggle the digits of his hand. There is perhaps a slight flicker of his index finger -Sensation intact to light touch in the axillary nerve distribution. Sensation intact albeit diminished in the ulnar, median, and radial nerve distributions -Digits are warm well perfused, capillary refill less than 2 seconds ASSESSMENT AND PLAN: MARYJO WAGNER is a 72 year old MALE with past medical history of metastatic renal cell carcinoma who sustained a pathologic left distal humeral shaft fracture. The patient was initially evaluated by the orthopedic team and placed into a coaptation splint. The patient underwent IR embolization of his lesion on 07/17/2022, and he is now status post open reduction internal fixation of his left pathologic distal humerus fracture with tumor excision and cement augmentation on 07/18/[address] Balbuena. -Patient with possible ulnar nerve palsy postoperatively. This is within the realm of expectation for this patient's surgery given the need to work around the nerve in the surgical setting. Fortunately, the patient does have sensation albeit diminished to each of his median, ulnar, and radial nerves. We will continue to monitor for improvements and motion and his exam in the coming days. No intervention required at this point. -Hemoglobin postop day 1 -Maintain splint clean, dry, intact -PT/OT -Would recommend a radiation oncology consult for the purposes of evaluation and potential treatment. We recognize that the patient has previously denied other possible interventions. The patient may benefit from palliative radiation of the humerus not sooner than 2 weeks postop. However, this would be up to the patient. Primary Team: Medicine Consults: Physical Therapy, Occupational Therapy, Heme-onc - Rad onc consult. Possible irradiation of humerus not sooner than 2 weeks post- op. Pain Control: Multimodal approach, PO with intermittent IV Weight Bearing: NWB LUMarlee Activity: Progress as tolerated, therapy POD1 Dressing: Keep splint c/d/i until POD14 Antibiotics: 24 hours of antibiotics postoperatively Diet: ADAT DVT Prophylaxis: SCDs, enoxaparin 30 mg BID while inpatient, and aspirin 162 mg daily when discharged Disposition: Pending pain control, medical stability, mobilization with PT, likely to discharge Follow Up: 2 week with orthopedic nurse, 6 weeks in orthopedic clinic with new XR Staff: Dr. Balbuena was present and scrubbed for the critical portions of the case. /sangita/ EVELYN KRUGER MD RESIDENT Signed: 07/19/2022 06:37 EVELYN KRUGER [facility] July 19, 2022 12:22 AM NURSING INPATIENT NOTE: LOCAL TITLE: [facility] NURSING PROGRESS NOTE STANDARD TITLE: NURSING INPATIENT NOTE DATE OF NOTE: JULY 19, 2022@00:22 ENTRY DATE: JULY 19, 2022@00:22:44 AUTHOR: CHARLOTTE EARLY EXP COSIGNER: URGENCY: STATUS: COMPLETED Nursing Shift Note Nursing care provided from 07/18/2022 at 2000 until 07/19/2022 at 0800 Highlights from shift: Alert on evenings, Slept only intermittently. Instructed on use of Incentive spirometer. Patient did not want to wear CPAP tonight stating that his face felt more swollen so mask was uncomfortable. O2 at 2 liters per nasal cannula during nighttime. Dressing intact to left anterior shoulder area where Ropivacaine infusing into infraclavicular brachial plexus block. Left hand swollen, but warm with good capillary refill, but numb left hand and minimal movement of index /middle finger of that hand. Hand elevated on pillow. Intermittent ice bag to left arm. Given dilaudid 0.4 mg IV 07/18/2022 at 2100 and again 07/19/2022 at 0220. Given oxycodone 10 mg po 07/18/2022 at 2315 and methocarbamol 07/18/2022 at 2315 also. As shift went on, 's pain in left arm decreased as he states it's just more numb because of that medicine (nerve block). Pivoted to bedside commode and wheeled into bathroom on evenings as thought he might have to have BM, but unable. STraight cathed in evening for 300 ml yellow urine. STraight cathed again ( normally self manages intermittent self straight cath, but unable due to left arm sling/recent surgery) at 0700 for 400 ml rogelio urine. Pneumoboots placed on per d.o. Bilateral preventative heel mepelix and coccyx/sacral mepelix placed on also. was c/o sling being too tight to right neck. Loosened as strap was digging into right side of neck. Some blanchable erythema to that area with some minimal flaking of skin right side of neck. Pillowcase placed under strap for more protection. LR infusing at 75 ml/hour via right forearm IV. See ICCA for detailed assessment, Education provided on medication/cares this shift as needed Skin Interventions performed this shift: Patient turned [id number] or as appropriate while in bed. Patient's heels elevated with pressure relief boots or pillows under calves. Patient kept clean and dry with barrier cream applied as ordered. Head of Bed kept below 30 degrees unless otherwise ordered. Other: blanchable erythema right neck under arm sling strap with some mild peeling of skin. WOC consult placed. Preventative heel mepelix and coccyx/sacral mepelix applied and heels intermittently floated on heel territory sales manager. /sangita/ CHARLOTTE EARLY RN REGISTERED NURSE Signed: 07/19/2022 08:16 CHARLOTTE EARLY CHANTELL [facility] July 18, 2022 07:08 PM NURSING INPATIENT NOTE: LOCAL TITLE: [facility] NURSING PROGRESS NOTE STANDARD TITLE: NURSING INPATIENT NOTE DATE OF NOTE: JULY 18, 2022@19:08 ENTRY DATE: JULY 18, 2022@19:08:23 AUTHOR: MARIA D BERMEO COSIGNER: URGENCY: STATUS: COMPLETED Nursing Shift Note Nursing care provided from [id number] Highlights from shift: A&O x4. pleasant and cooperative with cares. Returned from PACU, transferred with assist of 1 to bed. Some complaints of pain when moving but when sitting still pt has no pain. Left arm splint/sling. Pt oxygen level decreasing to 87-88%, placed on 2L nc. Pt became diaphoretic and dizzy, pt blood pressure 84/51 as pt was sitting on side of bed. Pt lied down and recheck was 111/69. Left hand is swollen. Pt complaining of splint being too tight, then stated it was loosening on its own. Placed pt on rapid response radar. No other complaints, will continue to monitor. See ICCA for detailed assessment, Education provided on medication/cares this shift as needed SKIN REINSPECTION/REASSESSMENT SKIN INSPECTION: Skin Color: Usual for ethnicity Skin Temperature: Skin Moisture: Normal Skin Turgor: Elastic (normal/immediate) Afshin Skin Assessment: The patient's Afshin Scale Score is 18. The patient is at mild risk for development of pressure ulcer/injury. Sensory perception -- ability to respond meaningfully to pressure-related discomfort Slightly limited. Moisture -- degree to which skin is exposed to moisture Rarely moist. Activity -- ability to change and control body position Walks occasionally. Mobility -- ability to change and control body position Slightly limited. Nutrition -- usual food intake patterns Adequate. Friction and shear Potential problem. INTERVENTIONS: No change in previous interventions as listed below 07/17/2022 Vaaes Pressure Injury Int Not Needed RISK FACTORS THAT INCREASE RISK FOR DEVELOPING PRESSURE INJURIES: The patient/resident has the following: History of previous or current pressure ulcer/injury Known vascular surgery or vascular disease Device(s): (nasogastric tubes, oxygen tubing, urinary catheters, cell phone etc.) Comment: oxygen, SKIN ALTERATIONS: Pressure Ulcer/Injury Documentation from the past year: No data available SKIN ALTERATIONS: Wound Documentation from the past year: No data available for: Skin Integrity - Wound Skin Integrity - Wound Second Skin Integrity - Wound Third Skin Integrity - Wound Fourth Skin Integrity - Wound Fifth Skin Integrity - Wound Additional Localized abnormality: Bruising: Location(s): left arm, Skin Interventions performed this shift: Device(s) removed and skin underneath was inspected. Head of Bed kept below 30 degrees unless otherwise ordered. /sangita/ MARIA D BERMEO RN REGISTERED NURSE Signed: 07/18/2022 19:21 MARIA D BERMEO [facility] July 18, 2022 05:34 PM INTERNAL MEDICINE INPATIENT NOTE: LOCAL TITLE: MEDICINE INPT PROGRESS NOTE STANDARD TITLE: INTERNAL MEDICINE INPATIENT NOTE DATE OF NOTE: JULY 18, 2022@17:34 ENTRY DATE: JULY 18, 2022@17:34:05 AUTHOR: BRUCE BALTAZAR EXP COSIGNER: URGENCY: STATUS: COMPLETED Date of service: 07/18/2022 S: No acute events. Saw pt this evening after surgery. [place] like he had to defacate. Decent pain control. Left arm still feels numb. C/O left arm discomfort due to shoulder sling - It's too tight. O: Physical Exam: vital signs reviewed in ICIP Gen: NAD HEENT: EOMI Neck: supple Lungs: CTAB, no W/R/R CV: RRR, no M/G/R Abd: NTND, active bowel sounds x4 MSK: left arm in sling Ext: no c/c/e Neuro: following commands Skin: dressing overlying left shoulder c/d/i Labs/Imaging Reviewed 72 years old MALE with metastatic RCC (untreated), prostate cancer, HTN, SANTHOSH and obesity presenting with L humerus fracture. #. Pathologic L humerus fracture: likely represents RCC metastases. Orthopedic surgery evaluated patient and taken to OR 07/18/2022 for following: Procedure: Open reduction internal fixation left distal humerus fracture with tumor excision, cement augmentation, and olecranon osteotomy Implants: All Synthes - Left 6 hole LCP Medial Distal humerus plate - Left 5 hole LCP lateral distal humerus plate - 1x 2.7mm Metaphyseal screw, self-tapping 45 mm - 2.7mm variable angle locking screw: 1x 36mm; 2x 46mm; 4 x60 mm - 3.5mm cortical screw: 2x 24mm; 2x 26mm; 1x 28mm; 1x 30mm - 6.5mm cannulated screw: 90 mm x1 - PMMA cement Tourniquet Time: 130 cc Anesthesia: GETA EBL: 450 ml - Had IR emolization Monday 07/17 - hydromorphone IV 0.5mg q2 hrs PRN pain - added polyethylene glycol for bowel regimen - D/C IVF pending HD profile and PO intake - Post op PT/OT ordered - CBC, nutrition labs, iron panel in am 07/19 #. Prostate cancer: - patient straight caths, regularly (twice a day at home) - he had been using tamsulosin intermittently (when he wanted to try void freely) but not recently. #. Renal cell cancer - Has extensive metastatic disease (see CT scan from 03/2022 in our system) and refusing palliative immunotherapy. Not on any treatments for RCC; however, it's not clear if patient has embraced palliative/hospice philosophy either. Last seen by hem/onc 05/18. -NTD -Readdress treatment options of patient interested in doing so #. Goals of Care/Self Cares at home: patient is very independent with good outlook (despite metastatic RCC). He has been able to maintain self-cares at home with and symptoms under control (once fracture managed). But between now and his , could potentially need more support. Offered Palliative consult to discuss; patient was reluctant. Patient with important procedures Sun, ; but there will be presumably be some inpatient time post-operation; asked patient to consider. #. PPx - per surgery team #. Diet - Regular diet #. Code status - DNAR/DNI outside of immediate post op period, post op complications #. Disposition - Possible TCU v home w/ home care in coming days pending ability tolerate PO, adequate pain control, and PT/OT assessments. Bruce Baltazar MD Hospitalist/ Staff P [phone] /es/ BRUCE BALTAZAR MD PHYSICIAN Signed: 07/18/2022 17:51 BRUCE BALTAZAR [facility] July 18, 2022 04:47 PM NURSING PROCEDURE NOTE: LOCAL TITLE: [facility] PROCEDURE NURSING NOTE STANDARD TITLE: NURSING PROCEDURE NOTE DATE OF NOTE: JULY 18, 2022@16:47 ENTRY DATE: JULY 18, 2022@16:47:58 AUTHOR: MARIA D BERMEO COSIGNER: URGENCY: STATUS: COMPLETED Post Procedure Note Procedure: Left distal humerus ORIF, excision of tumor, Olecranon osteotomy Returned to floor at: June@16:30 Vitals: Temperature: 98.3 F [36.8 C] (07/18/2022 07:20) Pulse: 66 (07/18/2022 16:33) Respirations: 18 (07/18/2022 16:33) Blood Pressure: 127/78 (07/18/2022 16:33) Pain: 6 (07/18/2022 16:33) Oxygen saturation: Yes92% Incision/Site/Dressing(s): c/d/i. Splint in place. All skin inspected for pressure injury, describe findings: left hand swollen Mental Status: alert and oriented PO Intake Status: resume previous orders Activity Level: NWB left arm Other Nursing Observations and Interventions: A&O x4. Able to ambulate to bed from litter. Able to make needs knoiwn. /sangita/ MARIA D BERMEO RN REGISTERED NURSE Signed: 07/18/2022 16:51 MARIA D BERMEO [facility] July 18, 2022 03:18 PM SURGERY NURSING NOTE: LOCAL TITLE: [facility] NURSING NOTE STANDARD TITLE: SURGERY NURSING NOTE DATE OF NOTE: JULY 18, 2022@15:18 ENTRY DATE: JULY 18, 2022@15:18:35 AUTHOR: DARIO DIAZ COSIGNER: URGENCY: STATUS: COMPLETED [facility] Nursing Note Regional Block CHIDI Abarca ,[employer] PLANT OPERATOR Pre-procedure assessment completed Patient prepped for procedure, placed on nurse monitoring with EKG rhythm strip printed, O2 saturation with blood pressure checks q5 min throughout block, and patent IV. O2 Nasal Cannula Flow Liters: 4 Procedure timeout per hospital policy number [id number]: [id number] Modified Kenny Score (Expanded option) Oxygentation 1 point - Needs supplemental oxygen to maintain saturation >90% Consciousness: 1 point - Arouses on calling Circulation: 2 points - BP within 20 mm Hg of preoperative level Breathin points - Able to breathe deeply and cough freely Activity Level: 2 points - Moves all extremities voluntarily/on command Total Kenny Score: 8 Vital signs Pre-procedure: Blood Pressure: 104/60 Heart Rate/Rhythm: 65 NSR Respirations: 13 Pulse Oximetry: 94 Vital Signs Time: 1520 Blood Pressure: 108/66 Heart Rate/Rhythm: 61 NSR Respirations: 12 Pulse Oximetry: 94 Vital Signs Time: 1525 Blood Pressure: 108/67 Heart Rate/Rhythm: 60 NSR Respirations: 16 Pulse Oximetry: 93 Vital Signs Time: 1530 Blood Pressure: 113/67 Heart Rate/Rhythm: 61 NSR Respirations: 16 Pulse Oximetry: 100 Vital Signs Time: 1535 Blood Pressure: 111/65 Heart Rate/Rhythm: 61 NSR Respirations: 16 Pulse Oximetry: 100 Procedure end time: 1530 Modified Kenny Score (Expanded option) Oxygentation 1 point - Needs supplemental oxygen to maintain saturation >90% Consciousness: 1 point - Arouses on calling Circulation: 2 points - BP within 20 mm Hg of preoperative level Breathin points - Able to breathe deeply and cough freely Activity Level: 2 points - Moves all extremities voluntarily/on command Total Kenny Score: 8 Vital Signs Time: 1540 Blood Pressure: 110/68 Heart Rate: 61 NSR Respirations: 12 Cardiac Rhythm: NSR Pulse Oximetry: 99 Vital Signs Time: 1550 Blood Pressure: 108/67 Heart Rate: 62 Respirations: 18 Cardiac Rhythm: 62 Pulse Oximetry: 97 Vital Signs Time: 1600 Blood Pressure: 106/59 Heart Rate: 62 Respirations: 16 Cardiac Rhythm: Pulse Oximetry: 96 Vital Signs Time: 1605 Blood Pressure: 109/66 Heart Rate/Rhythm: 61 NSR Respirations: 16 Pulse Oximetry: 100 Laterality: Left Type of block: Other: Brachial Plexus Expected duration of block: 24 hours. Peripheral Nerve Block discharge instruction sheet sent with patient. Patient tolerated procedure well with no evidence of lidocaine toxicity. /sangita/ DARIO DIAZ RN STAFF NURSE Signed: 07/19/2022 09:11 DARIO DIAZ [facility] July 18, 2022 02:36 PM NURSING TRANSFER SUMMARIZATION NOTE: LOCAL TITLE: [facility] PACU TRANSFER NOTE STANDARD TITLE: NURSING TRANSFER SUMMARIZATION NOTE DATE OF NOTE: JULY 18, 2022@14:36 ENTRY DATE: JULY 18, 2022@14:36:59 AUTHOR: DARIO DIAZ EXP COSIGNER: URGENCY: STATUS: COMPLETED PACU Transfer Note Status Post: Open reduction internal fixation left distal humerus fracture with tumor excision, cement augmentation, and olecranon osteotomy. Code Status: Not Full Code Specify: Pt's code status rescinded during procedure and for 2 hours in PACU; at 1550, pt will go back to DNR/I. Patient's Infection Control Status: Pertinent History: Renal cell Ca w/ mets, SANTHOSH. Anesthesia Type: General + Nerve Block + Nerve Catheter placed in PACU at 1520; 26ml of 0.2% ropivicaine used for block. Estimated Blood Loss: 450 Crystalloid (OR/PACU): 1600 Colloid (OR/PACU): 250 Medications Given in OR: Zofran 4 mg Decadron 8 mg Fentanyl 150 mcg Other: Hydromorphone 2mg; cefazolin 2gm, propofol. Medications Given in PACU: Fentanyl Total Given: 50 mcg Last Dose: 50 mcg at 1425 Last dose of Acetaminophen (Tylenol) 1000 mg at 1330. Next dose of Acetaminophen may given 6 hours from charted time. Discharging Anesthesiologist: EVANGELINA RODARTE Current Vital Signs: Temperature: 36.3 C BP: 107/51, HR: 61 Respiratory Rate: 16 0xygen 4 liters Nasal Cannula Oxygen Saturation: 94% Heart Rhythm: Pain: 7/10 upon arrival; treated w/ ice, fentanyl; anesthesia Neuro: Oriented x4, slow to wake but appropriate and pleasant. CV: Hemodynamically stable in SB 50-s60s; 100s/50s. Left hand is edematous, cool but patient has sensation. Respiratory: Nonlabored breathing on 3-4L NC; 92-94%. GI: No N/V with ice chips. : Bladder Scan: Amount:9cc at 1440 Urine Output (OR/PACU): cc Urine Source: Dressings: Left arm cast, wrap, and sling intact. Transfer to: Condition: Stable /sangita/ DARIO DIAZ RN STAFF NURSE Signed: 07/19/2022 09:10 DARIO DIAZ [facility] July 18, 2022 01:57 PM ANESTHESIOLOGY OPERATIVE NOTE: LOCAL TITLE: [facility] ANESTHESIA RECORD STANDARD TITLE: ANESTHESIOLOGY OPERATIVE NOTE DATE OF NOTE: JULY 18, 2022@13:57 ENTRY DATE: JULY 18, 2022@15:03:28 AUTHOR: ASTER HUTCHINSON EXP COSIGNER: URGENCY: STATUS: COMPLETED See [facility] for Full Anesthesia Record /miguelina HUTCHINSON MDA ANESTHESIOLOGIST Signed: 07/18/2022 15:03 ASTER HUTCHINSON [facility] July 18, 2022 10:18 AM NURSING OPERATIVE NOTE: LOCAL TITLE: INTRAOPERATIVE NURSING NOTE STANDARD TITLE: NURSING OPERATIVE NOTE DATE OF NOTE: JULY 18, 2022@10:18 ENTRY DATE: JULY 18, 2022@10:18:16 AUTHOR: STEPHANIE HOLDEN COSIGNER: URGENCY: STATUS: COMPLETED Intraoperative Nursing Note Part (A) Pre-op Check: Code Status: Not Full Code: Specify: mechanical ventilation only per anesthesia Location Pre-operative interview completed [facility]- See [facility] Nursing Note in CPRS Part (B) Preoperative Assessment: Patient stated full name: * Yes Patient stated full social security number and/or date: * Yes 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 pacemaker, ICD, DCS, etc.) No Metal, implants, artificial joints or shrapnel in body? No Does patient have any valuables or belongings in OR? No Skin intact: Yes Tattoos identified: No: none present Patient's physical limitations were indentified pertinent to procedural positioning or patient care demands: Yes: left arm fracture Tubes/drains/vacuum dressings/appliances were present preoperatively: No Patient accompanied today by: No: arriving later: Doreen - Part (C) Intraoperative Assessment: Intraoperative positioning Type of position: Prone: Head in prone view positioner per anesthesia. Right arm padded with foam, secured with tape in armboard, placed in cephalad positione per anesthesia. Left arm draped free. Gel rolls covered with sheet supporting torso placed under anterior chest. Pillows under lower legs, toes off mattress, mepilex applied on bilaterral knees. Safety strap across torso, upper thighs and lower legs. A fire risk assessment was performed utilizing the Association of periOperative Registered Nurses (AORN) Fire Risk Assessment Tool. [facility] Operating Room Perioperative Plan of Care for fire safety was implemented. Yes: An alcohol-based skin antiseptic or other flammable solution was used intraoperatively. The actions taken were: Nonflammable packaging with unit dosed applicators utilized. Towels used to absorb excess solution to prevent pooling of skin prep solutions on or around patient. Excessive solution removed by sterile towel including any pooling that may have occurred. Solution-soaked material removed from the sterile field prior to draping and use of electrosurgery, cautery, or a laser. Solutions allowed to dry completely per java software architect guidelines and fumes to dissipate prior to draping and use of surgical equipment. The procedure is above the xiphoid process or in the oropharynx. The actions taken were: Laryngeal mask airway or endotracheal tube used because patient required supplemental oxygen greater than 30%. Surgical smoke evacuated when using electrosurgery or a laser near the endotracheal tube. An electrosurgical unit (ESU) or high temperature cautery was used: Cord inspected prior to use; free of stress, kinks, knots, or bends. (Do NOT use if there are breaks, nicks, or crackes in the insulated coating. Do NOT coil or kink cord during use.) ESU activated only by the person controlling the active electrode. Power setting used was the lowest possible to achieve desired results. Safety holster used for the active electrode when not in use. Surgical drape/linen kept away from the activated ESU. Ignition source was not used to enter trachea. Ignition source was not used to enter bowel distended with gas. Flammable agents allowed to dry completely per java software architect guidelines and fumes to dissipate prior to use of ESU. Active electrode kept clean and used per java software architect's recommendations. Patient is undergoing a cardiothoracic procedure: No: An indwelling urinary catheter was placed intraoperatively: Yes: a 16 turkmen/5cc indwelling urinary catheter to drainage was inserted by Henry Holden RN Urine return was: Clear Part (D) Postoperative Assessment: Post-Op Skin Assessment Inspected patients skin post procedure Yes Any (abnormalities) ie:reddened areas, abrasions, bruises: No abnormalities observed [facility] Perioperative plan of care was implemented with intraoperative goals and objectives met: Yes A debriefing procedure was perfomred by Dr. Balbuena Verifying the following: Procedure, Wound Classification, Specimens, EBL A local anesthetic was used intraoperatively: Yes, See medications in [facility] charting. /sangita/ Stephanie Holden MSN,RN,CNOR Signed: 07/18/2022 13:57 NANSTEPHANIE HALL [facility] July 18, 2022 07:59 AM OPERATIVE REPORT: LOCAL TITLE: OPERATION REPORT STANDARD TITLE: OPERATIVE REPORT DATE OF NOTE: JULY 18, 2022@07:59 ENTRY DATE: JULY 18, 2022@13:51:37 SURGEON: EVELYN KRUGER ATTENDING: MICHAEL BALBUENA URGENCY: STATUS: COMPLETED SUBJECT: Case #: [id number] Preoperative Diagnosis: Pathologic left distal humerus fracture due to metastatic renal cell carcinoma. Postoperative Diagnosis: Pathologic left distal humerus fracture due to metastatic renal cell carcinoma. Procedures Performed: Open reduction internal fixation, left distal humerus fracture with tumor excision, cement augmentation, and olecranon osteotomy. Resident Surgeons: Evelyn Kruger MD PGY-3; Weston Sepulveda MD PGY-1 Staff Surgeon: Michael Balbuena MD Implants: All Synthes - Left 6 hole LCP Medial Distal humerus plate - Left 5 hole LCP lateral distal humerus plate - 1x 2.7mm Metaphyseal screw, self-tapping 45 mm - 2.7mm variable angle locking screw: 1x 36mm; 2x 46mm; 4 x60 mm - 3.5mm cortical screw: 2x 24mm; 2x 26mm; 1x 28mm; 1x 30mm - 6.5mm cannulated screw: 90 mm x1 - PMMA cement Tourniquet Time: 130 mL. Anesthesia: GETA. Significant Findings: Tumor mass with local cortical destruction of distal humerus superior to the articular surface. No tumor mass identified within soft tissue of triceps or olecranon Estimated Blood Loss: 450 ml. Complications: None immediate. SURGICAL INDICATIONS: This is a 72-year-old male with past medical history of metastatic renal cell carcinoma who, unfortunately, sustained a closed left pathologic distal humerus fracture on 07/13/2022 after a fall. The patient received medical evaluation, as well as evaluation by the Orthopedic Surgery Service. Due to the nature of the carcinoma, the patient did undergo preoperative embolization of the lesion on 07/17/2022 with Interventional Radiology to reduce the risk of significant intraoperative blood loss. When the patient was cleared from a medical standpoint for surgical intervention, we proceeded to the operating room. We discussed the risks, benefits and alternatives. The benefits include pain control and improved rehab potential, risks include infection, neurovascular injury, cardiovascular injury, blood loss, transfusion,blood clot, symptomatic hardware, hardware failure, wound issues, weakness, repeat surgery, periprosthetic fracture and even . DESCRIPTION OF PROCEDURE: The patient was identified in the preoperative holding area where the correct operative site was marked. Consent was signed and verified. The patient was wheeled to the operating theater and induced under anesthesia. The patient was positioned on the regular operating room table in the prone position with all bony prominences well-padded. The arm was placed over a stack of towels. Preoperatively, ability to obtain all necessary intraoperative fluoroscopy views was obtained prior to sterile prep. Patient's arm was then prepped and draped in the usual sterile fashion. A multidisciplinary timeout was called for, and all were in agreement on the correct side and surgery for this patient. A sterile tourniquet was applied to the upper arm and this was inflated to 250 mmHg. Next, an approximately 12 cm, incision was marked out from the mid aspect of the humerus, curving medially around the olecranon to the proximal aspect. Incision was then carried out through skin and subcutaneous tissue with a #15 blade scalpel. Further dissection was carried out to the level of the triceps fascia proximally, olecranon in the mid aspect of the incision, and the periosteum of the ulna using electrocautery and blunt dissection. Next, attention was turned to elevation of the triceps off of the posterior humerus. Just the fascial layer overlying the lateral triceps and anconeus muscle was carefully dissected using electrocautery, and further dissection was carried out in the interval between the anconeus and the lateral triceps proximally. Attention was then turned to the medial triceps, and the ulnar nerve was carefully dissected and identified. This was protected for the remainder of the case. Further dissection of the overlying fascia of the medial triceps was then carried out. Initial dissection of the underlying triceps fascia, in continuity with the humerus, was carried out with a Alice followed by Greg. There was immediate tumor and bleeding encountered, and thus the decision was made to proceed with an olecranon osteotomy in order to aid with visualization of the lesion as well as fracture reduction. The periosteum overlying the proximal ulna was then carefully dissected using electrocautery to expose the underlying bone. Next, a drill bit was used to identify the correct path for the eventual cannulated screw that would be used for reapproximation and fixation of the osteotomy. The position of the drill bit was confirmed on intraoperative fluoroscopy and this was drilled past the osteotomy site entirely within bone. Next, the osteotomy was marked out in a chevron fashion and its position confirmed to be safe on intraoperative fluoroscopy. Using a microsagittal saw, each limb of the osteotomy was carried out through two-thirds of the way through the bone, and the osteotomy completed using a half inch osteotome and mallet. There was found to be excellent cortical fragments for eventual fracture interdigitation. Next, attention was turned to further exposure of the distal humerus. With careful retraction of the osteotomy and attached triceps, dissection on both the lateral and medial sides of the triceps fascia was carried out to further expose the proximal humerus using electrocautery. Care was taken to protect the ulnar nerve at all times. At no point was the radial nerve encountered within the confines of the wound. Dissection of the triceps off of the humerus was carried proximally until the fracture could be readily identified. At this point, attention was then turned to tumor excision. Using the Lempert rongeur, along with the curved curette and Aguirre tip suction, specimens were removed from the soft tissue of the underlying triceps, olecranon and ultimately the humerus. Each of these was sent out for fresh frozen, as well as permanent specimens. Pathology did confirm intraoperatively that they did not see any specific metastatic carcinoma on the specimen seen from the triceps and olecranon, aside from a significant amount of lymphocytes. Extensive amount of time was spent on the posterior humerus where the lesion was noted to have caused a significant amount of posterior cortical disruption resulting in an approximately 1.5 cm, hole posteriorly, just superior to the olecranon fossa. The fracture sites were continuously irrigated with hydrogen peroxide for the purposes of further tumor debridement/treatment. Satisfied with the number of specimens sent for pathology and the amount of tumor excision, attention was then turned to fixation of the two fracture fragments. Fracture was noted to be in primarily two large bony blocks. Provisional reduction was obtained with the help of brnmg-ir-gdybl tenaculum clamps, as well as manual manipulation of the fracture fragments. With the fracture appropriately held in place, a 6-hole LCP medial distal humerus plate and a 5-hole LCP lateral distal humerus plate were provisionally affixed to the bone and found to be satisfactory length to obtain 6 cortices above the fracture site, as well as a sufficient number of screws in the more distal fragment. Fracture fixation proceeded with fixation of the lateral distal humerus plate to bone. First, the plate was affixed to the bone in usual fashion with two, 1.6 mm, K-wires followed by a 2.7 mm, variable angle locking screw in the distal plate which was drilled, measured and placed in typical fashion. Next, the more proximal aspect of the plate was affixed to the lateral aspect of the proximal fragment using a 3.5 mm, cortical screw, once again placed in typical fashion. Two more, 3.5 mm, cortical screws were placed in the proximal fragment and into the plate in typical fashion. The placement of the plate, as well as the screws were then evaluated on intraoperative fluoroscopy, and all implants were confirmed to be in safe position with excellent orthodoxy of length, alignment and rotation of the fracture fragments. Subsequently, an additional two, 2.7 mm, variable angle locking screws were placed into the distal aspect of the lateral distal humeral plate. Attention was then turned to fixation of the medial distal humeral plate. The plate was once again provisionally fixed to bone using 1.6 mm, K-wires. The alignment of the fracture was once again confirmed and held in place with manual manipulation, and a single, 2.7 mm, variable angle locking screw was placed into the distal aspect of the medial distal humeral plate. Attention was once again turned to the more proximal aspect of the plate, and a single, 3.5 mm, cortical screw was placed in the proximal most hole securing the fracture fixation in place. At this point, intraoperative fluoroscopy was once again used to confirm satisfactory alignment of the fracture, as well as placement of the implants. Once this was confirmed, the decision was made to let the tourniquet down. Hemostasis was subsequently achieved with cautery of any small venous bleeders. There were no arterial bleeders that could be noticed. Attention then returned to final fixation of the lateral aspect of the plate. An additional two, proximal, 3.5 mm, cortical screws were placed at the proximal aspect of the plate in typical fashion followed by an additional two, 2.7 mm, variable angle locking screws in the distal aspect of the plate. Final implant position was confirmed on intraoperative fluoroscopy and found to be satisfactory with maintained alignment of the fracture fragments. Attention was then turned to placement of the PMMA cement into the bone defect in the distal humerus where the tumor had previously been. Peter retractors were placed on the medial and lateral aspects of the humerus to ensure that the cement stayed within the confines of the bone and did not go into the surrounding soft tissues. The PMMA cement was then packed proximally and distally into the bony defect and allowed to harden. Peter retractors were removed, and any small amount of residual cement was removed from any surrounding soft tissue. Placement of cement did noticeably help with hemostasis as well. Once again, intraoperative fluoroscopy was used to confirm safe position of all orthopedic implants, maintained fracture alignment, and safe position of PMMA cement. These were all found to be quite satisfactory. Attention was then turned to fixation of the previously made olecranon osteotomy. A 2.0 mm, K-wire was introduced from distal to proximal to the previously made drill hole to re-identify this hole. In the area just overlying this hole, a small rent was made in the triceps fascia to allow for eventual placement of the cannulated screw with washer. Positioning of the wire was confirmed on fluoroscopy. The K-wire was then removed, and a Steinmann pin was placed antegrade from the proximal fragment to the distal fragment to secure fixation. A daaxt-yl-caxbs clamp was further used to obtain reduction which was found to be anatomic. Position of the Steinmann pin was confirmed on fluoroscopy. A cannulated drill was then used to open the cortex of the proximal fragment. Next, a 90 mm, screw was measured, and a single, 6.5 mm, cannulated screw with washer was introduced into the olecranon and ulna. Clinically, the reduction was excellent, and safe position of the screw and washer was confirmed on intraoperative fluoroscopy. After final placement of all implants, final intraoperative fluoroscopy shots were confirmed on all orthogonal views with safe position of all orthopedic implants and maintained fracture reduction. The wound was then copiously irrigated, and 1 g of vancomycin powder was introduced into the area of the prior tumor and plates. The triceps fascia was closed in layered fashion with #0 Vicryl suture, both medially and laterally. The small rent in the triceps fascia overlying the olecranon was also further closed with #0 Vicryl suture. Next, the deeper fascial layers were further approximated with a #0 Vicryl suture in running fashion. This was followed by 2-0 Vicryl suture in interrupted fashion with jennifer for skin. Typical sterile dressings were then applied to the incision and the patient was placed into a very well- padded posterior slab splint. The patient was then safely transferred to the hospital bed and extubated in the standard fashion without issue. Postoperative radiographs obtained in the operating room once again demonstrate satisfactory alignment and positioning of the fracture and all orthopedic implants. All counts were correct. Dr. Balbuena was scrubbed for the entirety of the procedure. There were no complications noted at the conclusion of the case. POSTOPERATIVE PLAN: Primary Team: Medicine Consults: Physical Therapy, Occupational Therapy, Heme-onc Pain Control: Multimodal approach, PO with intermittent IV Weight Bearing: NWB LUE Activity: Progress as tolerated, therapy POD1 Dressing: Keep splint c/d/i until POD14 Antibiotics: 24 hours of antibiotics postoperatively Diet: ADAT DVT Prophylaxis: SCDs, enoxaparin 30 mg BID while inpatient, and aspirin 162 mg daily when discharged Disposition: Pending pain control, medical stability, mobilization with PT, likely to discharge Follow Up: 2 weeks with orthopedic nurse, 6 weeks in orthopedic clinic with new XR Staff: Dr. Balbuena was present and scrubbed for entirety of the case. /sangita/ MICHAEL BALBUENA MD STAFF ORTHOPAEDIC SURGEON Signed: 07/21/2022 07:40 for EVELYN KRUGER MD RESIDENT /sangita/ MICHAEL BALBUENA MD STAFF ORTHOPAEDIC SURGEON Cosigned: 07/21/2022 07:40 MICHAEL BALBUENA [facility] July 18, 2022 07:59 AM SURGERY NURSING OPERATIVE NOTE: LOCAL TITLE: NURSE INTRAOPERATIVE REPORT STANDARD TITLE: SURGERY NURSING OPERATIVE NOTE DATE OF NOTE: JULY 18, 2022@07:59 ENTRY DATE: JULY 18, 2022@13:51:37 AUTHOR: CONCEPCIÓN LOPEZ COSIGNER: URGENCY: STATUS: COMPLETED SUBJECT: Case #: [id number] Operating Room: OR7 Surgical Priority: URGENT Patient in Hold: NOT ENTERED Patient in OR: JULY 18, 2022 07:59 Operation Begin: JULY 18, 2022 09:03 Operation End: JULY 18, 2022 13:40 Patient Out OR: JULY 18, 2022 13:51 Major Operations Performed: Primary: Left distal humerus ORIF, excision of tumor, Olecranon osteotomy Robotic Assistance (Y/N): NO Wound Classification: CLEAN Operation Disposition: BARBOZA Discharged Via: STRETCHER Primary Surgeon: MICHAEL BALBUENA Social Work Lecturer: EVELYN KRUGER Attending Surgeon: MICHAEL BALBUENA Second Assist: WESTON SEPULVEDA Implementation Engineer: JAMIE GRULLON Transit Mix Operator Anesth: N/A OR Support Personnel: Susanneubronaldo Circulating ZO BUTLER Bg () CONCEPCIÓN LOPEZ () CONCEPCIÓN LOPEZ () STEPHANIE HOLDEN () Other Persons in OR: JOJO TARANGO (SYNTHES) Preop Mood: ANXIOUS Preop Consc: ALERT-ORIENTED Preop Skin Integ: INTACT Preop [place]: N/A --- Time Out Checklist --- Confirm Correct Patient Identity: YES Confirm Procedure To Be Performed: YES Confirm Site of the Procedure, Including Laterality: YES Confirm Valid Consent: YES, i-MED Confirm Patient Position: YES Confirm Procedure Site has been Marked Appropriately and that the Site of the Fred is Visible After Prep and Draping: YES Pertinent Medical Images Have Been Confirmed: YES Correct Medical Implant(s) is Available: YES Availability of Special Equipment: YES Appropriate Antibiotic Prophylaxis: YES Appropriate Deep Vein Thrombosis Prophylaxis: YES Blood Availability: NOT INDICATED Checklist Comment: NO COMMENTS ENTERED Time-Out Document Completed By: STEPHANIE HOLDEN Time-Out Completed: JULY 18, 2022@09:02 Skin Prep By: EVELYN KRUGER Skin Prep Agent: HIBICLENS Skin Prep By (2): STEPHANIE HOLDEN 2nd Skin Prep Agent: CHLORAPREP Preop Surgical Site Hair Removal by: N/A Surgical Site Hair Removal Method: NO HAIR REMOVED Hair Removal Comments: NO COMMENTS ENTERED Surgery Position(s): Prone Placed: N/A Restraints and Position Aids: SAFETY STRAP Applied By: STEPHANIE HOLDEN Electrocautery Unit: [id number] ESU Coagulation Range: 40 ESU Cutting Range: 40 Electroground Position(s): RIGHT BUTTOCK Material Sent to Laboratory for Analysis: Specimens: 1. Left triceps tendon, frozen, Dr. Balbuena, 07/18/22, [facility] 2. Left distal humerus, frozen, Dr. Balbuena, 07/18/22, [facility] 3. Left humerus mets, permanent, Dr. Balbuena, 07/18/22, [facility] Cultures: N/A Anesthesia Technique(s): GENERAL Tourniquet: Time Applied: JULY 18, 2022 09:03 Time Released: NOT ENTERED Site Applied: LEFT UPPER ARM Pressure Applied (in TORR): 250 MMHG Applied By: EVELYN KRUGER Prosthesis Installed: Item: CEMENT, METHYL METHACRYLATE Implant Sterility Checked (Y/N): YES Sterility Expiration Date: OCT 27, 2023 RN Die Grinder: STEPHANIE HOLDEN SHANNON S Vendor: [employer] Model: [id number] Lot Number: [id number] Serial Number: na Sterile Resp: NON GARMENT SEWING MACHINE OPERATOR Size: N/A Quantity: 2 Provider Read Back Performed: YES Item: PLATE, LARGE BONE Implant Sterility Checked (Y/N): YES Sterility Expiration Date: JULY 18, 2022 RN Die Grinder: CONCEPCIÓN LOPEZ S Vendor: synthes Model: [id number] Lot Number: na Serial Number: na Sterile Resp: SPD Size: 6 hole left Quantity: 1 Provider Read Back Performed: YES Item: PLATE, LARGE BONE Implant Sterility Checked (Y/N): YES Sterility Expiration Date: JULY 18, 2022 RN Die Grinder: [employer]CE[employer]ÓN MANCUSO S Vendor: synthes Model: .[id number] Lot Number: na Serial Number: na Sterile Resp: SPD Size: 5 hole left Quantity: 1 Provider Read Back Performed: YES Item: SCREW, SELF TAPPING Implant Sterility Checked (Y/N): YES Sterility Expiration Date: JULY 18, 2022 RN Die Grinder: NAN,STEPHANIE SHANNON S Vendor: Synthes Model: .036 Lot Number: na Serial Number: na Sterile Resp: SPD Size: 36mm Quantity: 1 Provider Read Back Performed: YES Item: SCREW, SELF TAPPING Implant Sterility Checked (Y/N): YES Sterility Expiration Date: JULY 18, 2022 RN Die Grinder: NAN,STEPHANIE SHANNON S Vendor: Synthes Model: .046 Lot Number: na Serial Number: na Sterile Resp: SPD Size: 46 Quantity: 2 Provider Read Back Performed: YES Item: SCREW, SELF TAPPING Implant Sterility Checked (Y/N): YES Sterility Expiration Date: JULY 18, 2022 RN Die Grinder: NANSTEPHANIE HALL SHANNON S Vendor: Synthes Model: [id number] Lot Number: na Serial Number: na Sterile Resp: SPD Size: 60mm Quantity: 4 Provider Read Back Performed: YES Item: SCREW, SELF TAPPING Implant Sterility Checked (Y/N): YES Sterility Expiration Date: JULY 18, 2022 RN Die Grinder: NANSTEPHANIE SHANNON S Vendor: Synthes Model: 204.824 Lot Number: na Serial Number: na Sterile Resp: SPD Size: 24mm Quantity: 2 Provider Read Back Performed: YES Item: SCREW, SELF TAPPING Implant Sterility Checked (Y/N): YES Sterility Expiration Date: JULY 18, 2022 RN Die Grinder: NANSTEPHANIE SHANNON S Vendor: Synthes Model: [id number] Lot Number: na Serial Number: na Sterile Resp: SPD Size: 26 Quantity: 2 Provider Read Back Performed: YES Item: SCREW, SELF TAPPING Implant Sterility Checked (Y/N): YES Sterility Expiration Date: JULY 18, 2022 RN Die Grinder: STEPHANIE HOLDEN SHANNON S Vendor: Synthes Model: 204.830 Lot Number: na Serial Number: na Sterile Resp: SPD Size: 30mm Quantity: 1 Provider Read Back Performed: YES Item: SCREW, CANNULATED Implant Sterility Checked (Y/N): YES Sterility Expiration Date: JULY 18, 2022 RN Die Grinder: STEPHANIE HOLDEN Vendor: Mekhi Model: mekhi 6.5 x90 Lot Number: na Serial Number: na Sterile Resp: SPD Size: 6.5x90 Quantity: 1 Provider Read Back Performed: YES Medications: HYDROGEN PEROXIDE 3% TOP SOLN Time Administered: JULY 18, 2022 10:09 Route: IRRIGATION Dosage: 500 Ordered By: MICHAEL BALBUENA Admin By: MICHAEL BALBUENA Comments: dispensed to sterile field VANCOMYCIN 1GM INJ Time Administered: JULY 18, 2022 13:00 Route: TOPICAL Dosage: 1gm Ordered By: MICHAEL BALBUENA Admin By: MICHAEL BALBUENA Comments: sprinkled to surgical site BUPIVACAINE 0.25%/EPI 1: 30ML INJ Time Administered: JULY 18, 2022 13:00 Route: INFILTRATE Dosage: 15ml Ordered By: MICHAEL BALBUENA Admin By: MICHAEL BALBUENA Comments: injected at the end of procedure Irrigation Solution(s): NORMAL SALINE Time Used: JULY 18, 2022 09:00 Amount: 1000 Provider: MICHAEL BALBUENA Possible Item Retention: YES Sponge Final Count Correct: YES Sharps Final Count Correct: YES Instrument Final Count Correct: NOT APPLICABLE Wound Sweep: YES Wound Sweep Comment: PERFORMED BY OR TEAM BEFORE WOUND CLOSURE. Intra-Operative X-Ray: YES Intra-Operative X-Ray Comment: INTRA OP C-ARM USED, POST OP FLAT PLATES PERFORMED TO RULE OUT RETAINED OBJECTS. Counter: STEPHANIE HOLDEN Counts Verified By: ZO BUTLER Dressing: xeroform, 4x4, abd, cast padding, splint cast, mekhi bandage Blood Loss: 450 ml Urine Output: Postoperative Mood: RELAXED Postoperative Consciousness: DROWSY Postoperative Skin Integrity: FRESH INCISION Sequential Compression Device: YES Immediate Use Steam Sterilization Episodes: Contamination: 0 SPS Processing/OR Management Issues: 0 Emergency Case: 0 No Better Option: 0 Loaner or Short Notice Instrument: 0 Decontamination of Instruments Contaminated During the Case: 0 Nursing Care Comments: THIGH HIGH SCD'S PLACED BEFORE INDUCTION. SEE CPRS INTRAOPERATIVE NURSING NOTES. /sangita/ EDI Winchester,RN,CNOR Signed: 07/18/2022 13:55 for CONCEPCIÓN LOPEZ RN REGISTERED NURSE, OPERATING ROOM STEPHANIE HOLDEN [facility] July 18, 2022 07:39 AM SURGERY NOTE: LOCAL TITLE: SURGERY OR NOTE STANDARD TITLE: SURGERY NOTE DATE OF NOTE: JULY 18, 2022@07:39 ENTRY DATE: JULY 18, 2022@07:39:24 AUTHOR: EVELYN KRUGER EXP COSIGNER: URGENCY: STATUS: COMPLETED Orthopedic Surgery Operative Note Pre-operative Diagnosis: Pathologic left distal humerus fracture due to metastatic renal cell carcinoma Post-Operative Diagnosis: Same Procedure: Open reduction internal fixation left distal humerus fracture with tumor excision, cement augmentation, and olecranon osteotomy Implants: All Synthes - Left 6 hole LCP Medial Distal humerus plate - Left 5 hole LCP lateral distal humerus plate - 1x 2.7mm Metaphyseal screw, self-tapping 45 mm - 2.7mm variable angle locking screw: 1x 36mm; 2x 46mm; 4 x60 mm - 3.5mm cortical screw: 2x 24mm; 2x 26mm; 1x 28mm; 1x 30mm - 6.5mm cannulated screw: 90 mm x1 - PMMA cement Tourniquet Time: 130 cc Anesthesia: GETA Resident Surgeon(s): Evelyn Kruger MD PGY-3; Weston Sepulveda MD PGY-1 Transit Mix Operator Surgeon(s): Staff Surgeon: Michael Balbuena MD Significant Findings: Tumor mass with local cortical destruction of distal humerus superior to the articular surface. No tumor mass identified within soft tissue of triceps or olecranon Estimated Blood Loss: 450 ml. Complications: None immediate SURGICAL INDICATIONS: This is a 72-year-old male past medical history of metastatic renal cell carcinoma who unfortunately sustained a closed left pathologic distal humerus fracture on 07/13/2022 after a fall. The patient received medical evaluation as well as evaluation by the orthopedic surgery service. Due to the nature of the carcinoma, the patient did undergo preoperative embolization of the lesion on 07/17/2022 with interventional radiology to reduce the risk of significant intraoperative blood loss. When the patient was cleared from a medical standpoint for surgical intervention we proceededto the operating room. We discussed the risks/benefits and alternatives. The benefits include pain control and improved rehab potential, risks include infection, neurovascular injury, cardiovascular injury, blood loss, transfusion,blood clot, symptomatic hardware, hardware failure, wound issues, weakness, repeat surgery, periprosthetic fracture and even . DESCRIPTION OF PROCEDURE: The patient was identified in the preoperative holding area where the correct operative site was marked. Consent was signed and verified. The patient was wheeled to the operating theater and induced under anesthesia. The patient was positioned on the regular operating room table in the prone position with all bony prominences well-padded. The arm was placed over a stack of towels. Preoperatively, ability to obtain all necessary intraoperative fluoroscopy views was obtained prior to sterile prep. Patient's arm was then prepped and draped in the usual sterile fashion. A multidisciplinary timeout was called for, and all were in agreement on the correct side and surgery for this patient. A sterile tourniquet was applied to the upper arm, and this was inflated to 250 mmHg. Next, an approximately 12 cm incision was marked out from the mid aspect of the humerus, curving medially around the olecranon, to the proximal aspect. Incision was then carried out through skin and subcutaneous tissue with a 15 blade scalpel. Further dissection was carried out to the level of the triceps fascia proximally, olecranon in the mid aspect of the incision, and the periosteum of the ulna using electrocautery and blunt dissection. Next, attention was turned to elevation of the triceps off of the posterior humerus. Just the fascial layer overlying the lateral triceps and anconeus muscle was carefully dissected using electrocautery, and further dissection was carried out in the interval between the anconeus and the lateral triceps proximally. Attention was then turned to the medial triceps, and the ulnar nerve was carefully dissected and identified. This was protected for the remainder of the case. Further dissection of the overlying fascia of the medial triceps was then carried out. Initial dissection of the underlying triceps fascia incontinuity with the humerus was carried out with a Asadnidt followed by Greg. There was immediate tumor and bleeding encountered, and thus the decision was made to proceed with an olecranon osteotomy in order to aid with visualization of the lesion as well as fracture reduction. The periosteum overlying the proximal ulna was then carefully dissected using electrocautery to expose the underlying bone. Next, a drill bit was used to identify the correct path for the eventual cannulated screw that would be used for reapproximation and fixation of the osteotomy. The position of the drill bit was confirmed on intraoperative fluoroscopy, and this was drilled past the osteotomy site entirely within bone. Next, the osteotomy was marked out in a chevron fashion and its position confirmed to be safe on intraoperative fluoroscopy. Using a microsagittal saw, each limb of the osteotomy was carried out through two th[address] way through the bone, and the osteotomy completed using a half inch osteotome and mallet. There was found to be excellent cortical fragments for eventual fracture interdigitation. Next attention was turned to further exposure of the distal humerus. With careful retraction of the osteotomy and attached triceps, dissection on both the lateral and medial sides of the triceps fascia was carried out to further expose the proximal humerus using electrocautery. Care was taken to protect the ulnar nerve at all times. At no point, was the radial nerve encountered within the confines of the wound. Dissection of the triceps off of the humerus was carried proximally until the fracture could be readily identified. At this point, attention was then turned to tumor excision. Using the lempert rongeur along with the curved curette, and Aguirre tip suction. Specimens were removed from the soft tissue of the underlying triceps, olecranon, and ultimately the humerus. Each of these was sent out for fresh frozen as well as permanent specimens. Pathology did confirm intraoperatively that they did not see any specific metastatic carcinoma on the specimen seen from the triceps and olecranon aside from a significant amount of lymphocytes. Extensive amount of time was spent on the posterior humerus where the lesion was noted to have caused a significant amount of posterior cortical disruption resulting in approximately 1.5 cm hole posteriorly just superior to the olecranon fossa. The fracture sites were continuously irrigated with hydrogen peroxide for the purposes of further tumor debridement/treatment. Satisfied with the number of specimens sent for pathology and the amount of tumor excision, attention was then turned to fixation of the 2 fracture fragments. Fracture was noted to be in primarily two large bony blocks. Provisional reduction was obtained with the help of ywvmb-yh-ejyxj tenaculum clamps as well as manual manipulation of the fracture fragments. With the fracture appropriately held in place, a 6-hole LCP medial distal humerus plate and a 5 hole LCP lateral distal humerus plate were provisionally affixed to the bone and found to be satisfactory length to obtain 6 cortices above the fracture site as well as a sufficient number of screws in the more distal fragment. Fracture fixation proceeded with fixation of the lateral distal humerus plate to bone. First, the plate was affixed to the bone in usual fashion with two 1.6 mm K wires followed by a 2.7 mm variable angle locking screw in the distal plate which was drilled, measured, and placed in typical fashion. Next, the more proximal aspect of the plate was affixed to the lateral aspect of the proximal fragment using a 3.5 mm cortical screw once again placed in typical fashion. 2 more 3.5 mm cortical screws were placed in the proximal fragment and into the plate in typical fashion. The placement of the plate as well as the screws were then evaluated on intraoperative fluoroscopy, and all implants were confirmed to be in safe position with excellent orthodoxy of length, alignment, and rotation of the fracture fragments. Subsequently, an additional two 2.7 mm variable angle locking screws were placed into the distal aspect of the lateral distal humeral plate. Attention was then turned to fixation of the medial distal humeral plate. The plate was once again provisionally fixed to bone using 1.6 mm K wires. The alignment of the fracture was once again confirmed and held in place with manual manipulation, and a single 2.7 mm variable angle locking screw was placed into the distal aspect of the medial distal humeral plate. Attention was once again turned to the more proximal aspect of the plate, and a single 3.5 mm cortical screw was placed in the proximalmost hole securing the fracture fixation in place. At this point, intraoperative fluoroscopy was once again used to confirm satisfactory alignment of the fracture as well as placement of the implants. Once this was confirmed, the decision was made to let the tourniquet down. Hemostasis was subsequently achieved with cautery of any small venous bleeders. There were no arterial bleeders that could be noticed. Attention then returned to final fixation of the lateral aspect of the plate. An additional 2 proximal 3.5 mm cortical screws were placed at the proximal aspect of the plate in typical fashion followed by an additional two 2.7 mm variable angle locking screws in the distal aspect of the plate. Final implant position was confirmed on intraoperative fluoroscopy and found to be satisfactory with maintained alignment of the fracture fragments. Attention was then turned to placement of the PMMA cement into the bone defect in the distal humerus where the tumor had previously been. Peter retractors were placed on the medial and lateral aspects of the humerus to ensure that the cement stayed within the confines of the bone and did not go into the surrounding soft tissues. The PMMA cement was then packed proximally and distally into the bony defect and allowed to harden. Peter retractors were removed, and any small amount of residual cement was removed from any surrounding soft tissue. Placement of cement did noticeably help with hemostasis as well. Once again, intraoperative fluoroscopy was used to confirm safe position of all orthopedic implants, maintained fracture alignment, and safe position of PMMA cement. These were all found to be quite satisfactory. Attention was then turned to fixation of the previously made olecranon osteotomy. A 2.0 mm K wire was introduced from distal to proximal to the previously made drill hole to reidentify this hole. In the area just over lying this hole, a small rent was made in the triceps fascia to allow for eventual placement of the cannulated screw with washer. Positioning of the wire was confirmed on fluoroscopy. The K wire was then removed, and a Steinmann pin was placed antegrade from the proximal fragment to the distal fragment to secure fixation. A [id number] clamp was further used to obtain reduction which was found to be anatomic. Position of the Steinmann pin was confirmed on fluoroscopy. A cannulated drill was then used to open the cortex of the proximal fragment. Next, a 90 mm screw was measured, and a single 6.5 mm cannulated screw with washer was introduced into the olecranon and ulna. Clinically, the reduction was excellent, and safe position of the screw and washer was confirmed on intraoperative fluoroscopy. After final placement of all implants, final intraoperative fluoroscopy shots were confirmed on all orthogonal views with safe position of all orthopedic implants and maintained fracture reduction. The wound was then copiously irrigated, and 1 g of vancomycin powder was introduced into the area of the prior tumor and plates. The triceps fascia were closed in layered fashion with 0 Vicryl suture both medially and laterally. The small rent in the triceps fascia overlying the olecranon was also further closed with 0 Vicryl suture. Next, the deeper fascial layers were further approximated with a 0 Vicryl suture in running fashion. This was followed by 2-0 Vicryl suture in interrupted fashion with jennifer for skin. Typical sterile dressings were then applied to the incision, and the patient was placed into a very well- padded posterior slab splint. The patient was then safely transferred to the hospital bed and extubated in the standard fashion without issue. Postoperative radiographs obtained in the operating room once again demonstrate satisfactory alignment and positioning of the fracture and all orthopedic implants. All counts were correct. Dr. Balbuena was scrubbed and/or immediately available for all sunshine and critical portions of the procedure. There were no complications noted at the conclusion of the case. PLAN: Postoperative Plan: Primary Team: Medicine Consults: Physical Therapy, Occupational Therapy, Heme-onc Pain Control: Multimodal approach, PO with intermittent IV Weight Bearing: NWB LUE Activity: Progress as tolerated, therapy POD1 Dressing: Keep splint c/d/i until POD14 Antibiotics: 24 hours of antibiotics postoperatively Diet: ADAT DVT Prophylaxis: SCDs, enoxaparin 30 mg BID while inpatient, and aspirin 162 mg daily when discharged Disposition: Pending pain control, medical stability, mobilization with PT, likely to discharge Follow Up: 2 week with orthopedic nurse, 6 weeks in orthopedic clinic with new XR Staff: Dr. Balbuena was present and scrubbed for the critical portions of the case. /sangita/ EVELYN KRUGER MD RESIDENT Signed: 07/19/2022 07:00 EVELYN KRUGER [facility] July 18, 2022 07:34 AM SURGERY OPERATIVE NOTE: LOCAL TITLE: POST-OPERATIVE NOTE STANDARD TITLE: SURGERY OPERATIVE NOTE DATE OF NOTE: JULY 18, 2022@07:34 ENTRY DATE: JULY 18, 2022@07:34:18 AUTHOR: EVELYN KRUGER EXP COSIGNER: URGENCY: STATUS: COMPLETED Date of Procedure: June Pre-operative Diagnosis: Pathologic left distal humerus fracture due to metastatic renal cell carcinoma Post-Operative Diagnosis: Same Procedure: Open reduction internal fixation left distal humerus fracture with tumor excision, cement augmentation, and olecranon osteotomy Implants: All Synthes - Left 6 hole LCP Medial Distal humerus plate - Left 5 hole LCP lateral distal humerus plate - 1x 2.7mm Metaphyseal screw, self-tapping 45 mm - 2.7mm variable angle locking screw: 1x 36mm; 2x 46mm; 4 x60 mm - 3.5mm cortical screw: 2x 24mm; 2x 26mm; 1x 28mm; 1x 30mm - 6.5mm cannulated screw: 90 mm x1 - PMMA cement Tourniquet Time: 130 cc Anesthesia: GETA Resident Surgeon(s): Evelyn Kruger MD PGY-3; Weston Sepulveda MD PGY-1 Transit Mix Operator Surgeon(s): Staff Surgeon: Michael Balbuena MD Significant Findings: Tumor mass with local cortical destruction of distal humerus superior to the articular surface. No tumor mass identified within soft tissue of triceps or olecranon Estimated Blood Loss: 450 ml. Complications: None immediate Postoperative Plan: Primary Team: Medicine Consults: Physical Therapy, Occupational Therapy, Heme-onc - Rad onc consult. Possible irradiation of humerus not sooner than 2 weeks post- op. Pain Control: Multimodal approach, PO with intermittent IV Weight Bearing: NWB LUE Activity: Progress as tolerated, therapy POD1 Dressing: Keep splint c/d/i until POD14 Antibiotics: 24 hours of antibiotics postoperatively Diet: ADAT DVT Prophylaxis: SCDs, enoxaparin 30 mg BID while inpatient, and aspirin 162 mg daily when discharged Disposition: Pending pain control, medical stability, mobilization with PT, likely to discharge Follow Up: 2 week with orthopedic nurse, 6 weeks in orthopedic clinic with new XR Staff: Dr. Balbuena was present and scrubbed for the critical portions of the case. /sangita/ EVELYN KRUGER MD RESIDENT Signed: 07/18/2022 14:09 EVELYN KRUGER [facility] July 18, 2022 07:31 AM ATTENDING ADMISSION EVALUATION NOTE: LOCAL TITLE: SURGERY STAFF ADMISSION NOTE STANDARD TITLE: ATTENDING ADMISSION EVALUATION NOTE DATE OF NOTE: JULY 18, 2022@07:31 ENTRY DATE: JULY 18, 2022@07:31:34 AUTHOR: MICHAEL BALBUENAIGNER: URGENCY: STATUS: COMPLETED SUBJECT: ortho Attending Note for Inpatient Surgery Admission. The patient has been seen and examined and the history, physical exam, radiographic and laboratory studies have been reviewed by me. Options for treatment have been discussed and there is agreement with the present plan for Tumor excision, open reduction internal fixation with possible olecranon osteotomy, and bone cement augmentation left distal humerus The risks, benefits and alternatives of this plan have also been reviewed with the patient and have been accepted as outlined. /sangita/ MICHAEL BALBUENA MD STAFF ORTHOPAEDIC SURGEON Signed: 07/18/2022 07:31 MICHAEL BALBUENA [facility] July 18, 2022 07:29 AM SURGERY ATTENDING PRE OPERATIVE E & M NOTE: LOCAL TITLE: PRE-OP SURGERY STAFF NOTE STANDARD TITLE: SURGERY ATTENDING PRE OPERATIVE E & M NOTE DATE OF NOTE: JULY 18, 2022@07:29 ENTRY DATE: JULY 18, 2022@07:29:18 AUTHOR: MICHAEL BALBUENA EXP PAULAIGNER: URGENCY: STATUS: COMPLETED SUBJECT: ortho Pre-Operative Staff Note Diagnosis/findings: Metastatic renal cell carcinoma with pathologic fracture left distal humerus Planned Procedure: Tumor excision, open reduction internal fixation with possible olecranon osteotomy, and bone cement augmentation left distal humerus Case discussed with resident, patient seen and examined. Pertinent history, imaging and pathology reports reviewed. Patient informed of alternatives, risks and benefits. Agree with diagnosis, findings, preoperative assessment and planned procedure or treatment plan. 07/13/2022 18:02 Local Title: LIFE-SUSTAINING TREATMENT Standard [...] PRACTITIONER No Attending/supervising practitioner required. Signed by: /sangita/ ROLLY PAULA MD PHYSICIAN 07/13/2022 18:08 Digital Pager: [phone] Life Sustaining Treatment Orders Cohort: Reminder Term: [facility]LIFE SUSTAINING TREATMENT ORDERABLE ITEMS Orderable Item: LST DNR - DO NOT RESUSCITATE 07/13/2022@18:08 Status: active, Start date: 07/13/2022@18:08, Stop date: missing Duration: 5 D /sangita/ MICHAEL BALBUENA MD STAFF ORTHOPAEDIC SURGEON Signed: 07/18/2022 07:31 MICHAEL BALBUENA [facility] July 18, 2022 07:16 AM SURGERY NURSING NOTE: LOCAL TITLE: SURGERY CENTER NURSING NOTE STANDARD TITLE: SURGERY NURSING NOTE DATE OF NOTE: JULY 18, 2022@07:16 ENTRY DATE: JULY 18, 2022@07:16:40 AUTHOR: SUMMER HART EXP COSIGNER: URGENCY: STATUS: COMPLETED [facility] Nursing Note Pre-Op Date/time in: June@06:35 Patient Identification: verbal, ID band on, Allergies verified The patient reports no COVID-19 diagnosis. The patient reports not waiting for the results of a COVID-19 lab test. The patient reports no fever. The patient reports no new or worsening cough or shortness of breath. The patient reports no cold or flu-like symptoms. The patient reports no new onset of diarrhea, nausea or vomiting. The patient reports no new onset of headache, loss of taste or loss of smell. The patient reports no exposure to someone with COVID-19 within the past 2 weeks. Result: Screen is negative. COVID-19 Immunization Status There is no record of COVID-19 vaccination. Does patient consent to having their name included in the hospital directory? (So that hospital staff may acknowledge that the patient is in the hospital and give relatives/friends general information regarding their status) Participant(s) statement of procedure: fix my left arm Responsible person with patient today: NA: Patient being admitted: Allergies: HAZELNUTS (Nov [birth year], 2002) Vital Signs Pain: 7 (07/18/2022 06:54) Pain location: Left arm Temperature: 98.3 Blood Pressure:168/79 Pulse: 71 Respirations: 20 O2 Saturation: 94% Room Air Cardiac Rhythm: NSR Patient instructed on use of pain scale: Yes Verbalizes understanding: Yes Does patient have chronic pain: Yes Code Status: Not Full Code: Specify: Full code for surgery and 2 hours post op Surgical consent signed within 60 days: Yes Correct Surgical Site Marked or ID band labeled with surgical procedure: Yes Staff Note Within 24 Hours: Yes History and Physical Within 30 Days: Yes History and Physical updated within 24hrs of surgery: Yes Participant(s) instructed on perioperative plan of care: Yes Verbalizes understanding: Yes Relevant preoperative emotional, spiritual, safety and psychological needs met: Yes Finger Stick Blood Glucose: PT/INR: Neuro assessment: alert, oriented Detail specific neuro deficits in comment box: Pre-procedure skin prep done by patient?: Yes SKIN INTEGRITY: Intact PRE-EXISTING IV: No pre-existing Jonas-Cath, Chavez or Picc. Obtained information below from: Patient NPO since midnight: Yes Pre-Procedure medications: Did patient take preordered oral antibiotic prior to arrival: Not applicable DVT Prophylaxis Pneumatic compression Nursing action on preordered medication prior to surgery: Pre-Op IV Antibiotic Sent with patient to OR Does the patient have an active order for a beta rina, (e.g., metoprolol, atenolol, etc): No Is patient taking any anticoagulation, any antiplatelet agent, any thrombin inhibitor or thrombolytic agent? (This includes ASA, Heparin drip, or SQ injection): No Does the patient have on any medication patches: No Does the patient have any implantable device (e.g. pacemaker, infusion pump, nerve stimulator, etc...) No Location of patients personal items: All personal items left on barboza Medication reconciliation completed by nurse: Yes IV insertion: 20G RFA inserted on nursing barboza Site: Gauge: Blood products available: None ordered Surgery specific assessment: Left arm in cast and sling. CMS intact in LUE 0545 Report obtained from Stefany Edmonds RN. /sangita/ SUMMER HART RN REGISTERED NURSE Signed: 07/18/2022 07:45 SUMMER HART [facility] July 18, 2022 07:15 AM CONSENT: LOCAL TITLE: CONSENT CLINICAL IMED STANDARD TITLE: CONSENT DATE OF NOTE: JULY 18, 2022@07:15:19 ENTRY DATE: JULY 18, 2022@07:15:33 AUTHOR: CARMELITA MOSS EXP COSIGNER: URGENCY: STATUS: COMPLETED Vist[facility] Imaging - Scanned Document Signature Informed Consent for Peripheral Nerve Block 1. Anatomical Location: Left brachial plexus block +/- left intercostobrachial nerve block +/- left radial/musculocutaneous/ulna r/median nerve blocks; single injection versus continuous catheters 2. Informed consent was obtained at 7:11 AM on 07/18/22. The full consent document can be accessed through [employer]. 3. Patient name: MARYJO WAGNER 4. The patient HAS decision-making capacity. 5. Surrogate (if applicable): 6. Reason for the treatment (diagnosis, condition, or indication): Pain due to an injury or surgery. 7. Treatment/procedure: A peripheral nerve block is a procedure in which a part of the body is made numb by injecting local anesthetics (numbing medication) near one or more nerves. The local anesthetic blocks transmission of nerve impulses, which can cause both temporary loss of sensation and movement of muscles controlled by the blocked nerve. The anesthesia provider performs a peripheral nerve block in the following manner. If the doctor deems necessary, an intravenous (IV) line may be started and standard monitors may be applied. Before the injection, the skin is cleaned with an antiseptic solution to prevent infection. A local anesthetic is injected through a tiny needle to numb the skin and deeper tissues. A nerve block needle is inserted and placed near the peripheral nerve. With certain blocks, correct placement is confirmed by either seeking a paresthesia or the use of a nerve stimulator. A paresthesia is a temporary sensation, similar to the sensation that occurs when the funny bone is struck. This sensation indicates that the needle is positioned near the peripheral nerve. A nerve stimulator applies a tiny electrical impulse to the nerve block needle that makes a muscle twitch when the needle is appropriately placed. After the needle is correctly positioned, local anesthetic medications are injected. Loss of sensation and movement in the particular nerve distribution occurs gradually over a 10 to 30 minute time period. A catheter (thin tube) may be left in place and used to administer local anesthetics for as long as a few days. The patient/surrogate has decided that the patient's current DNR order will remain in place during this treatment/procedure. 8. Anesthesia will be administered. A member of the anesthesia care team will visit you before your treatment to discuss the type(s) of anesthesia you may need and to give you more information about anesthesia. It may become necessary to alter your anesthesia care plan after this discussion. Devices may be applied to your body and placed in your veins and arteries to monitor you during your anesthesia. All forms of anesthesia involve some risk. Minor (not life-threatening) risks include: nausea, vomiting, and pain where an injection is given. Although rare, severe complications include: injury to blood vessels, drug reactions, bleeding, blood clots, loss of sensation or limb function, infection, paralysis, stroke, brain damage, heart attack, and . Here is a basic description of the major types of anesthesia including their risks in addition to those described above: General anesthesia involves drugs that are injected into the bloodstream or breathed into the lungs. A tube or other device may be inserted into your airway to help you breathe. The expected benefit is that you will be totally unconscious and you will not feel pain during the procedure. Additional risks include: injury to the teeth, throat, eyes, or lung. In less than one case in a thousand, patients may be aware of activities during their surgery. Spinal or epidural analgesia/anesthesia involves a drug being injected through a needle or catheter placed into the spinal canal. The expected benefit is a temporary decreased feeling in the area of surgical incision, allowing surgery to proceed without pain. Additional risks include: headache, backache, convulsions, persistent weakness and or numbness, abnormal heart rhythms, and incomplete pain relief during the operation that may require general anesthesia. Major/minor nerve block involves a drug being injected near nerves providing loss or reduction of sensation and movement to the area. The expected benefit is a temporary loss of feeling and/or movement of a specific limb or area of your body. Additional risks include: convulsions, persistent weakness and or numbness, and incomplete pain relief during the operation that may require general anesthesia. Monitored anesthesia care involves monitoring of the heart and lungs to make sure that they are functioning adequately during your procedure. A local anesthetic will be injected to prevent pain, and the anesthesia care provider may use drugs to help you relax, and lessen any pain. You may remain conscious throughout your procedure, or you may be given medications that will make you unconscious. The expected benefit is that you will be comfortable during your operation with a minimum amount of anesthesia. This may result in a shorter stay in the hospital. Additional risks include: incomplete pain relief during the operation that may require additional anesthesia. Convulsions from the injected drug are a rare but serious complication. 9. Consent to Blood Products (if applicable): It is not expected that blood products will be used in this treatment/procedure. 10. Practitioner obtaining consent: Imtiaz Serrano CRNA 11. Supervising practitioner: Charles Abarca MD 12. Practitioner(s) performing or supervising treatment/procedure (if not listed above): Tyler Avalos MD; Diana Cutler MD 13. Witness Name(s): 14. Comments: SCANNED DOCUMENT SIGNATURE NOT REQUIRED Electronically Filed: 07/18/2022 by: CARMELITA MOSSALICENORTHERN NAVAJO MEDICAL CENTERLYLE [facility] July 18, 2022 06:59 AM SURGERY H & P NOTE: LOCAL TITLE: H&P SURGICAL UPDATE STANDARD TITLE: SURGERY H & P NOTE DATE OF NOTE: JULY 18, 2022@06:59 ENTRY DATE: JULY 18, 2022@06:59:30 AUTHOR: EVELYN KRUGER EXP COSIGNER: URGENCY: STATUS: COMPLETED H&P Surgical Update Upper Extremity: The patient was assessed prior to anesthesia induction on the day of surgery and no change in patient condition was noted. The patient denies fevers, chills, chest pain, shortness of breath, recent illness, and recent hospitalization. Physical Exam: Left upper extremity: No warmth, erythema, or swelling. SILT in axillary, musculocutaneous, radial, median, and ulnar nerve distributions. Fires deltoid, biceps, extensor pollicis longus, flexor pollicis longus, and interossei. Makes OK sign. Radial and ulnar pulses 2+. Capillary refill <2 seconds. The patient's correct surgery site was verified and marked. Plan: Proceed to OR TODAY. /sangita/ EVELYN KRUGER MD RESIDENT Signed: 07/18/2022 07:00 EVELYN KRUGER [facility] July 18, 2022 01:12 AM NURSING INPATIENT NOTE: LOCAL TITLE: [facility] NURSING PROGRESS NOTE STANDARD TITLE: NURSING INPATIENT NOTE DATE OF NOTE: JULY 18, 2022@01:12 ENTRY DATE: JULY 18, 2022@01:12:51 AUTHOR: STEFANY TOMLINSON EXP COSIGNER: URGENCY: STATUS: COMPLETED Nursing Shift Note Nursing care provided from 8pm-8am Highlights from shift: VITALS stable, room air PAIN left arm pain, prn methocarbomol 9pm, prn IV dilaudid 1030pm & 6am, effective per pt CARDIO denies chest pain, no edmea, dopplerable pulses to feet, palpable right wrist, unable to assess left wrist, CMS less than 3 sec, good sensation LUNGS denies SOB, no cough, CPAP w/3L bleed in for sleep NEURO A&OX4 MOBILITY needs assist to sit up at side of bed yet able to walk to bathroom independently from a sitting position BOWEL BM 10pm 07/17 on toilet VOID straight cathed self twice this shift for good amounts per patient IV SL right forearm SKIN right groin site w/tegaderm & drop of blood underneath See ICCA for detailed assessment, Education provided on medication/cares this shift as needed Skin Interventions performed this shift: Patient turned [id number] or as appropriate while in bed. Patient's heels elevated with pressure relief boots or pillows under calves. Patient kept clean and dry with barrier cream applied as ordered. Device(s) removed and skin underneath was inspected. Head of Bed kept below 30 degrees unless otherwise ordered. /sangita/ STEFANY TOMLINSON, RN REGISTERED NURSE Signed: 07/18/2022 08:00 STEFANY TOMLINSON [facility] July 17, 2022 10:49 PM INTERNAL MEDICINE INPATIENT NOTE: LOCAL TITLE: MEDICINE INPT PROGRESS NOTE STANDARD TITLE: INTERNAL MEDICINE INPATIENT NOTE DATE OF NOTE: JULY 17, 2022@22:49 ENTRY DATE: JULY 17, 2022@22:49:26 AUTHOR: ROLLY PAULA EXP COSIGNER: URGENCY: STATUS: COMPLETED S: patient notes pain in arm is a little bit better after long IR procedure today. He denies complaints. O: TMax: 98.3; HR: 53-69; BP: 108-174/68-92; RR: 18-19; So2: 94-97% RA GEN: elderly male, breathing comfortably on RA, no apparent distress LUNGS: CTAB CV: RRR, no murmurs A/P: 72 years old MALE with metastatic RCC (untreated), prostate cancer, HTN, SANTHOSH and obesity presenting with L humerus fracture. Had IR procedure, to OR for tumor resection, fx repair tomorrow with orthopedics. 1. Pathologic L humerus fracture: likely represents RCC metastases. Orthopedic surgery evaluated patient and plan to take to OR for repair. - IR emolization Wednesday 05/17; to OR with Orthopedic Surgery Thursday 05/18 - hydromorphone IV 0.5mg q2 hrs PRN pain - added polyethylene glycol for bowel regimen. 2. Risk evaluation: patient with no known hx of DM II, CHF, CAD or CKD; revised cardiac risk index doesn't account for malignancy and therefore patient would be considered low risk for intermediate risk surgery. ACS NSQIP Surgical Risk Calculator does take into consideration both malignancy and systemic disease. Including those factors for osteotomy, humerus (closest I could find), patient was noted to have 5.9% risk of serious complications (slightly above average) and 3.3% risk fo (above average). There is no way to minimize or mitigate patient's risk due to his metastatic disease; it is reasonable to pursue surgery given his palliative goals. - patient wishes to have DNR code status in place during procedures - lisinopril hold for 07/17 and 07/18 - paitent with SANTHOSH; using CPAP this evening, would recommend CPAP in PACU/recovery 3. Prostate cancer: - patient straight caths, regularly (twice a day at home) - he had been using tamsulosin intermittently (when he wanted to try void freely) but not recently. 4. Goals of Care/Self Cares at home: patient is very independent with good outlook (despite metastatic RCC). He has been able to maintain self-cares at home with and symptoms under control (once fracture managed). But between now and his , could potentially need more support. Offered Palliative consult to discuss; patient was reluctant. Patient with important procedures Sun, ; but there will be presumably be some inpatient time post-operation; asked patient to consider. DNR NPO after MN for procedure N Nisa [phone] /es/ ROLLY PAULA MD PHYSICIAN Signed: 07/17/2022 22:53 ROLLY PAULA [facility] July 17, 2022 04:51 PM NURSING TRANSFER SUMMARIZATION NOTE: LOCAL TITLE: [facility] NURSING TRANSFER SUMMARY STANDARD TITLE: NURSING TRANSFER SUMMARIZATION NOTE DATE OF NOTE: JULY 17, 2022@16:51 ENTRY DATE: JULY 17, 2022@16:51:26 AUTHOR: SARMAD SALGADO EXP COSIGNER: URGENCY: STATUS: COMPLETED NURSING TRANSFER SUMMARY Receiving RN Diagnosis: Pathologic FX LF Humerus Current Vital Signs: Blood Pressure: 142/82 (07/17/2022 16:41) Pulse: 70 (07/17/2022 16:41) Respiration: 16 (07/17/2022 16:41) Temperature: 97.7 F [36.5 C] (07/17/2022 16:41) Weight: 240.0 lb [108.86 kg] (07/13/2022 16:25) Pain: 7 (07/17/2022 16:41) Pain Assessment/Reassessment Words: Sharp, Shooting Intensity: (0=no pain, 10=worst pain) At present: 7 Worst Pain: 10 Best Pain Gets: Acceptable Level: 3 Location: Arm Left Duration: Less than 1 week Aggravating Factors: Exercise, Lifting, Sitting, Standing, Walking, Working Alleviating Factors: Rest, Pain Meds What affect does pain have on daily living? Physical Activity Assessment: Pain improved Current Treatment Regimen: Medications (include how taking) Hydromorphone IV AFSHIN SKIN RISK ASSESSMENT Sensory Perception:4 = No Impairment Moisture: 4 = Rarely Moist Activity: 4 = Walks Frequently Mobility: 3 = Slightly Limited Nutrition: 3 = Adequate Friction: 2 = Potential Problem 19-23 No Risk Score: 20 CURRENT SKIN ASSESSMENT Skin Color: Usual for ethnicity Skin Temperature: Warm Skin Moisture: Normal Skin Turgor: Elastic (normal/immediate) SKIN PROBLEMS No wounds, pressure ulcers or other skin problems. INTERVENTIONS: The pressure injury interventions were not needed - patient/resident is not at risk. SUICIDE RISK: Was the patient identified as being at imminent or hightened risk for suicide during this [facility] based on suicide risk assessment: No Continue to assess patient for suicide risk as deemed clinically appropriate and document in nursing shift note. ====== JUARES FALL SCALE & TIPS PROGRAM ====== Juares Fall Scale: The Juares Fall scale was performed and score was 35. This is indicative of moderate risk for falls. History of falling: immediate or within 3 months? No Secondary diagnosis: Yes Ambulatory aid: None/bedrest/nurse assist Intravenous therapy/Heparin lock: Yes Gait/Transferring: Normal/bed rest/immobile Mental Status: Oriented to own ability/knows own limitations IV Access: Peripheral Are their personal belongings transferred with the patient? No Belongings received upon transfer: Belongings were kept in room Patient oriented to unit and call light system: Yes ITP goals updated on transfer: Yes Focused assessment: Patient is a/o x 4, calm, cooperative with cares, and ablet to make his needs known. Ambulated back to bed. at bedside. Left arm is in sling. Right groin site is CDI with a tagaderm. Patient states that he has regained feeling in his fingers. Waiting for nerve block to be effective. PBJ sandwich, OJ, and vanilla ice cream requested by patient. Appetite is good. VSS and call light is within reach. /sangita/ SUKI MILLIGAN RN Signed: 07/17/2022 18:22 SARMAD SALGADO [facility] July 17, 2022 04:31 PM ANESTHESIOLOGY NOTE: LOCAL TITLE: ANESTHESIA POST-ANESTHESIA EVALUATION STANDARD TITLE: ANESTHESIOLOGY NOTE DATE OF NOTE: JULY 17, 2022@16:31 ENTRY DATE: JULY 17, 2022@16:31:29 AUTHOR: JIAN MALDONADO EXP COSIGNER: URGENCY: STATUS: COMPLETED POST-ANESTHESIA EVALUATION LOCATION: Phase I PACU ANESTHESIA TYPE: General VITAL SIGNS: Stable Temperature: 36.2 C BP: 140/69, HR: 66 Respiratory Rate: 22 2L NC Oxygen Saturation: 93% PHYSIOLOGIC SYSTEMS ASSESSMENT Neuro Status: Appropriate mentation/At preoperative baseline Airway/Respiratory: Normal respiratory status Cardiovascular: Appropriate blood pressure, heart rate and rhythm Pain: Comfort improved with nerve block. Postop nausea/vomiting: None PATIENT MEETS DISCHARGE CRITERIA with an Kenny score of > or = 8 TODAY'S LAB RESULTS: WBC: 6.05 RBC: 3.77 L HGB: 12.7 L HCT: 36.0 L MCV: 95.5 MCH: 33.7 H MCHC: 35.3 RDW: 13.2 PLT: 179 MPV: 9.4 GLUCOSE: 107 H UREA NITROGEN: 23 CREATININE: 0.8 SODIUM: 139 POTASSIUM: 3.9 CHLORIDE: 106 CO2: 28 CALCIUM: 9.1 MAGNESIUM: 1.9 ANION GAP: 5 CREATININE EGFR (CKD-EPI): >90 INR 1998: 1.0 PROTHROMBIN TIME (10/30): 11.5 STATUS AT SIGNOUT: Stable DISPOSITION: barboza /es/ JIAN MALDONADO MDA ANESTHESIOLOGIST Signed: 07/17/2022 16:32 JIAN MALDONADO [facility] July 17, 2022 04:09 PM NURSING TRANSFER SUMMARIZATION NOTE: LOCAL TITLE: [facility] PACU TRANSFER NOTE STANDARD TITLE: NURSING TRANSFER SUMMARIZATION NOTE DATE OF NOTE: JULY 17, 2022@16:09 ENTRY DATE: JULY 17, 2022@15:33:18 AUTHOR: ALLA JACOB EXP COSIGNER: URGENCY: STATUS: COMPLETED [facility] PACU TRANSFER NOTE Has ADDENDA PACU Transfer Note Status Post: LUE Tumor embolization Code Status: Not Full Code Specify: pt DNR Patient's Infection Control Status: Pertinent History: HTN, Prostate CA, Pancreatic CA, SANTHOSH, HTN Anesthesia Type: General, Regional Block If block used estimated time to wear off: 18 Hrs. Estimated Blood Loss: Crystalloid (OR/PACU): 700/200 Colloid (OR/PACU): Medications Given in OR: Zofran 4 mg Decadron 4 mg Fentanyl 200 mcg Discharging Anesthesiologist: BETTINA VILLAR Current Vital Signs: Temperature: 36.2 C BP: 140/69, HR: 66 Respiratory Rate: 22 2L NC Oxygen Saturation: 93% Heart Rhythm: SR Pain: Pt reporting dull ache upon arrival to PACU. Pt reports pain only with movement after nerve block. Neuro: A&O x4. Calm and cooperative. CV: VSS. BP 140's-150's/60-70's. HR Mid 60's. CMS intact. DERICK radial pulse d/t dressing. Left femoral groin site covered with tegaderm soft to palpation. Pulses present with doppler. Respiratory: LS diminised. Pt weaned to room air, but placed back on 2L NC d/t oxygen saturations 88% on RA while sleeping. Pt CDB independently. GI: No n/v. Tolerating ice chips and water. : Amount:cc at Urine Output (OR/PACU): cc Urine Source: Pt straight cathed in IR for 750 cc. Dressings: Left arm splinted, DERICK d/t dressings. Left arm in sling. Drains: N/A Integrative Therapies: Nerve block completed in PACU. Bed rest until 1540. Skin: Warm and dry. Pertinent labs: N/A Transfer to: Other 3F Condition: Stable Other pertinent information: Right radial 20 gauge PIV patent and SL /sangita/ ALLA JACOB REGISTERED NURSE Signed: 07/17/2022 16:09 07/17/2022 ADDENDUM STATUS: COMPLETED Groin site was right femoral, not left as previously charted. /miguelina JACOB REGISTERED NURSE Signed: 07/17/2022 16:17 ALLA JACOB [facility] July 17, 2022 03:46 PM SURGERY NURSING NOTE: LOCAL TITLE: [facility]ENTER NURSING NOTE STANDARD TITLE: SURGERY NURSING NOTE DATE OF NOTE: JULY 17, 2022@15:46 ENTRY DATE: JULY 17, 2022@15:46:42 AUTHOR: ALLA JACOB EXP COSIGNER: URGENCY: STATUS: COMPLETED [facility] Nursing Note Regional Block CHIDI Abarca ,MILAGRO Avalos MDA resident Pre-procedure assessment completed Patient prepped for procedure, placed on nurse monitoring with EKG rhythm strip printed, O2 saturation with blood pressure checks q5 min throughout block, and patent IV. O2 Facemask Flow Liters: 6 Procedure timeout per hospital policy number [id number]: June@15:07 Procedure end time: 1532 Laterality: Left Type of block: Axillary Expected duration of block: 18 hours. Patient tolerated procedure well with no evidence of lidocaine toxicity. See ICCA flow sheet for VS. /miguelina JACOB REGISTERED NURSE Signed: 07/17/2022 16:27 ALLA JACOB [facility] July 17, 2022 01:43 PM ANESTHESIOLOGY OPERATIVE NOTE: LOCAL TITLE: [facility] ANESTHESIA RECORD STANDARD TITLE: ANESTHESIOLOGY OPERATIVE NOTE DATE OF NOTE: JULY 17, 2022@13:43 ENTRY DATE: JULY 17, 2022@14:01:23 AUTHOR: JIAN MALDONADO EXP COSIGNER: URGENCY: STATUS: COMPLETED See [facility] for Full Anesthesia Record /sangita/ JIAN MALDONADO MDA ANESTHESIOLOGIST Signed: 07/17/2022 14:01 JIAN MALDONADO [facility] July 17, 2022 01:27 PM INTERVENTIONAL RADIOLOGY PROCEDURE NOTE: LOCAL TITLE: INTERVENTIONAL RADIOLOGY PHYSICIAN PROCEDURE NOTE STANDARD TITLE: INTERVENTIONAL RADIOLOGY PROCEDURE NOTE DATE OF NOTE: JULY 17, 2022@13:27 ENTRY DATE: JULY 17, 2022@13:27:29 AUTHOR: MALCOM LANGLEY EXP COSIGNER: URGENCY: STATUS: COMPLETED Procedure Note Procedure: Right CERTIFIED PROSTHETIST/ORTHOTIST access. left distal humeral metastasis embolization. Patient was identified by using full name and social security number. Procedure(s) to be performed was(were) discussed with patient and verified to be correct. Patient and/or family provided with appropriate education and patient and/or family acknowledged understanding. Procedure Date: June Attending physician performing the procedure: Malcom Langley Additional staff present: Pre-Procedure diagnosis:Pathologic left humerus fracture, metastatic RCC Post-Procedure diagnosis: Same as pre-op diagnosis Specimens Obtained: No specimen obtained Estimated blood loss: <25ml No immediate complications /sangita/ MALCOM LANGLEY MD INTERVENTIONAL RADIOLOGIST Signed: 07/17/2022 13:28 MALCOM LANGLEY [facility] July 17, 2022 01:10 PM PASTORAL CARE NOTE: LOCAL TITLE: CORPORATE LICENSED BROKER-SPIRITUAL CARE ISSUES STANDARD TITLE: PASTORAL CARE NOTE DATE OF NOTE: JULY 17, 2022@13:10 ENTRY DATE: JULY 21, 2022@13:10:26 AUTHOR: VALENCIA CRAIG EXP COSIGNER: URGENCY: STATUS: COMPLETED Pastoral visit. The patient was not in, I left a note. Progress note entered for Mr. 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 /es/ FATHER VALENCIA CRAIG (DAMIEN) CHIEF, CORPORATE LICENSED BROKER SERVICE Signed: 07/21/2022 13:10 VALENCIA CRAIG [facility] July 17, 2022 09:05 AM CONSENT: LOCAL TITLE: CONSENT CLINICAL IMED STANDARD TITLE: CONSENT DATE OF NOTE: JULY 17, 2022@09:05:15 ENTRY DATE: JULY 17, 2022@09:05:22 AUTHOR: CARMELITA MOSS COSIGNER: URGENCY: STATUS: COMPLETED CONSENT CLINICAL IMED Has ADDENDA [facility]ist[facility] Imaging - Scanned Document Signature Informed Consent for Peripheral Nerve Block 1. Anatomical Location: Left Supraclavicular Brachial Plexus versus Left Axillary Brachial Plexus single shot block +/- continuous catheter 2. Informed consent was obtained at 9:03 AM on 07/17/22. The full consent document can be accessed through [facility]. 3. Patient name: MARYJO WAGNER 4. The patient HAS decision-making capacity. 5. Surrogate (if applicable): 6. Reason for the treatment (diagnosis, condition, or indication): Pain due to an injury or surgery. 7. Treatment/procedure: A peripheral nerve block is a procedure in which a part of the body is made numb by injecting local anesthetics (numbing medication) near one or more nerves. The local anesthetic blocks transmission of nerve impulses, which can cause both temporary loss of sensation and movement of muscles controlled by the blocked nerve. The anesthesia provider performs a peripheral nerve block in the following manner. If the doctor deems necessary, an intravenous (IV) line may be started and standard monitors may be applied. Before the injection, the skin is cleaned with an antiseptic solution to prevent infection. A local anesthetic is injected through a tiny needle to numb the skin and deeper tissues. A nerve block needle is inserted and placed near the peripheral nerve. With certain blocks, correct placement is confirmed by either seeking a paresthesia or the use of a nerve stimulator. A paresthesia is a temporary sensation, similar to the sensation that occurs when the funny bone is struck. This sensation indicates that the needle is positioned near the peripheral nerve. A nerve stimulator applies a tiny electrical impulse to the nerve block needle that makes a muscle twitch when the needle is appropriately placed. After the needle is correctly positioned, local anesthetic medications are injected. Loss of sensation and movement in the particular nerve distribution occurs gradually over a 10 to 30 minute time period. A catheter (thin tube) may be left in place and used to administer local anesthetics for as long as a few days. 8. Anesthesia will be administered. A member of the anesthesia care team will visit you before your treatment to discuss the type(s) of anesthesia you may need and to give you more information about anesthesia. It may become necessary to alter your anesthesia care plan after this discussion. Devices may be applied to your body and placed in your veins and arteries to monitor you during your anesthesia. All forms of anesthesia involve some risk. Minor (not life-threatening) risks include: nausea, vomiting, and pain where an injection is given. Although rare, severe complications include: injury to blood vessels, drug reactions, bleeding, blood clots, loss of sensation or limb function, infection, paralysis, stroke, brain damage, heart attack, and . Here is a basic description of the major types of anesthesia including their risks in addition to those described above: General anesthesia involves drugs that are injected into the bloodstream or breathed into the lungs. A tube or other device may be inserted into your airway to help you breathe. The expected benefit is that you will be totally unconscious and you will not feel pain during the procedure. Additional risks include: injury to the teeth, throat, eyes, or lung. In less than one case in a thousand, patients may be aware of activities during their surgery. Spinal or epidural analgesia/anesthesia involves a drug being injected through a needle or catheter placed into the spinal canal. The expected benefit is a temporary decreased feeling in the area of surgical incision, allowing surgery to proceed without pain. Additional risks include: headache, backache, convulsions, persistent weakness and or numbness, abnormal heart rhythms, and incomplete pain relief during the operation that may require general anesthesia. Major/minor nerve block involves a drug being injected near nerves providing loss or reduction of sensation and movement to the area. The expected benefit is a temporary loss of feeling and/or movement of a specific limb or area of your body. Additional risks include: convulsions, persistent weakness and or numbness, and incomplete pain relief during the operation that may require general anesthesia. Monitored anesthesia care involves monitoring of the heart and lungs to make sure that they are functioning adequately during your procedure. A local anesthetic will be injected to prevent pain, and the anesthesia care provider may use drugs to help you relax, and lessen any pain. You may remain conscious throughout your procedure, or you may be given medications that will make you unconscious. The expected benefit is that you will be comfortable during your operation with a minimum amount of anesthesia. This may result in a shorter stay in the hospital. Additional risks include: incomplete pain relief during the operation that may require additional anesthesia. Convulsions from the injected drug are a rare but serious complication. 9. Consent to Blood Products (if applicable): It is not expected that blood products will be used in this treatment/procedure. 10. Practitioner obtaining consent: Priscilla Jenkins CRNA 11. Supervising practitioner: Charles Abarca MD 12. Practitioner(s) performing or supervising treatment/procedure (if not listed above): 13. Witness Name(s): 14. Comments: SCANNED DOCUMENT SIGNATURE NOT REQUIRED Electronically Filed: 07/17/2022 by: CARMELITA MOSS 07/17/2022 ADDENDUM STATUS: COMPLETED It was noted by ROOM SERVICE ASSOCIATE that patient had a DNR order and wished to remain DNR for his procedures today. I had a lengthy discussion with the patient in PACU further verifying his wishes to remain DNR and discussing the risks and and benefits of the block procedure in the context of his DNR order. ALso discussed the patient resuscitation status with his anesthesiologist, Dr Maldonado who verified the patient's wishes regarding his resuscitatio. Patient endorsed wanting to remain DNR for this procedure (nerve block) as well. Patient wishes to proceed with nerve block. ROOM SERVICE ASSOCIATE Alla Jacob was present for discussion as well as chief resident Dr Tyler Avalos and student doctor Renetta Mata. /sangita/ CHARLES ABARCA MD ANESTHESIOLOGIST Signed: 07/17/2022 15:07 CARMELITA MOSS [facility] July 17, 2022 08:44 AM CONSENT: LOCAL TITLE: CONSENT CLINICAL ED STANDARD TITLE: CONSENT DATE OF NOTE: JULY 17, 2022@08:44:07 ENTRY DATE: JULY 17, 2022@08:44:12 AUTHOR: CARMELITA MOSS EXP COSIGNER: URGENCY: STATUS: COMPLETED [facility] - Scanned Document Signature Informed Consent for Artery - Embolization (Arterial Embolization) Artery - Angiogram with Possible Interventions (Peripheral) (Peripheral Angiogram with Possible Interventions) 1. Anatomical Location: Left humerus. 2. Informed consent was obtained at 8:06 AM on 07/17/22. The full consent document can be accessed through [facility]. 3. Patient name: MARYJO WAGNER 4. The patient HAS decision-making capacity. 5. Surrogate (if applicable): 6. Reason for the treatment (diagnosis, condition, or indication): ARTERIAL EMBOLIZATION To block blood supply to a tumor, damaged or weakened blood vessel, or other vascular abnormality. PERIPHERAL ANGIOGRAM WITH POSSIBLE INTERVENTIONS To diagnose and possibly treat conditions that affects the arteries in your extremities. 7. Treatment/procedure: ARTERIAL EMBOLIZATION This procedure involves blocking an artery causing problems. This may include arteries that may be bleeding uncontrollably, supplying blood and nutrients to a tumor, or causing other problems within the body. This is called embolization. Material will be injected into the affected artery. This material may be made of small metal wires (coils), plastic beads, and/or pieces of sponge-like material. The particles/materials will block the artery. The particles are placed using a catheter in your artery. A catheter is a thin, flexible tube. It is usually placed into an artery in your groin or upper arm. Your provider will place an intravenous (IV) line. This is a small plastic tube usually placed into a vein in your arm. This may be used to give you fluids or medicines during the procedure. Your vital signs will be closely monitored during this procedure. Your doctor will inject a local anesthetic to numb the skin. Your doctor will then insert a needle directly through your skin, or through a small incision in your skin. This is usually done in your leg (groin area), but may also be in your arm or neck. The catheter will then be placed into your blood vessel. Your doctor will use real-time X-rays (fluoroscopy) to direct the catheter to the appropriate position. X-ray contrast (dye) will be injected into your blood stream through the catheter. The contrast dye helps to highlight the affected arteries. The embolization material will be injected through the catheter to the targeted artery. Your doctor will remove the catheter after the procedure is complete. Your doctor may close the cut or form a clot using manual compression, stitches, clip, or plug material. A pressure dressing may be applied to prevent bleeding. PERIPHERAL ANGIOGRAM WITH POSSIBLE INTERVENTIONS This procedure involves using a catheter to diagnose problems in the arteries in your extremities. A catheter is a long, thin, flexible tube. It is inserted through your skin into a blood vessel in your leg (groin area), arm, or neck. It may then be guided to the treatment area with special x-rays called fluoroscopy. Your doctor can use the catheter to inject x-ray contrast (dye). The flow of the contrast may tell your doctor if there are blockages or other problems. You may be given medicine to help you relax. Your provider will put an IV (small plastic tube) into a vein. This is usually in your arm. This may be used to give you fluids or medicines during the procedure. Your vital signs will be closely monitored during this procedure. Your doctor will inject a local anesthetic to numb the area. Your doctor will then insert a needle through your skin. If necessary, your doctor may make a small incision through your skin to access the blood vessel. Your doctor will exchange the needle over a guidewire for an introducer. Your doctor will then insert the catheter through the introducer. Your doctor will use real-time X-ray (fluoroscopy) to see and direct the catheter to the appropriate position. Your doctor may also use ultrasound. This uses high frequency sound waves to take pictures of your arteries during the test. Your doctor will inject contrast, and x-ray images will be taken. Depending on the findings of the diagnostic tests, your doctor may perform any of the following interventions: * Thrombolysis. This involves breaking up a blood clot or dissolving it. Your provider may use special tools, chemicals, or a combination of methods. * Angioplasty. This involves using an inflatable balloon on the tip of the catheter. It is used to reopen a narrowing in one or more of the arteries. * Stenting. A stent is a thin metal tube. It is placed into the vessel to help keep the vessel open. It remains in the wall of the artery. * Atherectomy. This involves using a specialized catheter. It is used to cut away and remove plaque from the inside of a blood vessel. * Thrombectomy. This involves using a specialized catheter with suction. It is used to remove blood clot from the inside of a blood vessel. After removal of the catheter, your doctor may close the site or form a clot by manual compression or by using stitches, clip, or plug material. This may be absorbed over time or it may remain permanently. A pressure dressing may be applied to prevent bleeding. ARTERIAL EMBOLIZATION PERIPHERAL ANGIOGRAM WITH POSSIBLE INTERVENTIONS The patient/surrogate has decided that the patient's current DNR order will remain in place during this treatment/procedure. 8. Anesthesia will be administered. A member of the anesthesia care team will visit you before your treatment to discuss the type(s) of anesthesia you may need and to give you more information about anesthesia. It may become necessary to alter your anesthesia care plan after this discussion. Devices may be applied to your body and placed in your veins and arteries to monitor you during your anesthesia. All forms of anesthesia involve some risk. Minor (not life-threatening) risks include: nausea, vomiting, and pain where an injection is given. Although rare, severe complications include: injury to blood vessels, drug reactions, bleeding, blood clots, loss of sensation or limb function, infection, paralysis, stroke, brain damage, heart attack, and . Here is a basic description of the major types of anesthesia including their risks in addition to those described above: General anesthesia involves drugs that are injected into the bloodstream or breathed into the lungs. A tube or other device may be inserted into your airway to help you breathe. The expected benefit is that you will be totally unconscious and you will not feel pain during the procedure. Additional risks include: injury to the teeth, throat, eyes, or lung. In less than one case in a thousand, patients may be aware of activities during their surgery. Spinal or epidural analgesia/anesthesia involves a drug being injected through a needle or catheter placed into the spinal canal. The expected benefit is a temporary decreased feeling in the area of surgical incision, allowing surgery to proceed without pain. Additional risks include: headache, backache, convulsions, persistent weakness and or numbness, abnormal heart rhythms, and incomplete pain relief during the operation that may require general anesthesia. Major/minor nerve block involves a drug being injected near nerves providing loss or reduction of sensation and movement to the area. The expected benefit is a temporary loss of feeling and/or movement of a specific limb or area of your body. Additional risks include: convulsions, persistent weakness and or numbness, and incomplete pain relief during the operation that may require general anesthesia. Monitored anesthesia care involves monitoring of the heart and lungs to make sure that they are functioning adequately during your procedure. A local anesthetic will be injected to prevent pain, and the anesthesia care provider may use drugs to help you relax, and lessen any pain. You may remain conscious throughout your procedure, or you may be given medications that will make you unconscious. The expected benefit is that you will be comfortable during your operation with a minimum amount of anesthesia. This may result in a shorter stay in the hospital. Additional risks include: incomplete pain relief during the operation that may require additional anesthesia. Convulsions from the injected drug are a rare but serious complication. 9. Consent to Blood Products (if applicable): I CONSENT to the use of blood products during this treatment/procedure if they are needed. I understand that the benefit of blood products is that they may improve my overall condition or save my life. I understand that my consent for use of blood products is valid while I recover from the treatment/procedure. My provider will determine when this recovery period ends. If this consent form expires, my treatment plan changes, or if blood products are needed for a reason that is unrelated to this treatment/procedure, I will be asked again for my consent for use of blood products. I understand that common risks of using blood products include (but are not limited to) infection or irritation where the needle is placed, fever, chills, and skin rashes. Other rare but more serious complications may occur such as allergic reactions, heart failure due to fluid overload, acute pulmonary edema (fluid leaking into the lungs), shock, or . I also understand that transfusions of blood or blood products involve a small risk of transmission of diseases such as Hepatitis B (1 in 137,000), Hepatitis C (1 in 1,000,000), and HIV/AIDS (1 in 1,900,000). There is also a small risk of bacterial infection when blood platelets are transfused. Alternatives to blood or blood products may be available if my health, time, and procedure permit. These alternatives may include auto-donation (using my own previously donated blood) and intra-operative salvage (my own blood collected during surgery). In addition, medications may be used to reduce the need for blood products. 10. Practitioner obtaining consent: Malcom Langley 11. Supervising practitioner: 12. Practitioner(s) performing or supervising treatment/procedure (if not listed above): 13. Witness Name(s): 14. Comments: SCANNED DOCUMENT SIGNATURE NOT REQUIRED Electronically Filed: 07/17/2022 by: CARMELITA HAWKINS [facility] July 17, 2022 07:02 AM ORTHOPEDIC SURGERY ATTENDING NOTE: LOCAL TITLE: ORTHOPEDIC INPT PROGRESS NOTE STANDARD TITLE: ORTHOPEDIC SURGERY ATTENDING NOTE DATE OF NOTE: JULY 17, 2022@07:02 ENTRY DATE: JULY 17, 2022@07:02:49 AUTHOR: WESTON SEPULVEDA EXP COSIGNER: URGENCY: STATUS: COMPLETED Orthopedic Inpatient Progress Note June S: No acute events overnight. Pain controlled. He reports his pain is improved since initial injury, although still present. O: Temperature 97.4 F [36.3 C] (07/17/2022 03:32) HR 55 (07/17/2022 03:32) Respirations 18 (07/17/2022 03:32) BP 174/92 (07/17/2022 03:32) POX% 97% (07/17/2022 03:32) Pain Scale 8 (07/17/2022 06:52) Exam: General: uncomfortable, NAD Respiratory: Non-labored breathing Cardiovascular: skin warm and well perfused Left Upper Extremity: -Splint clean, dry, intact - Able to OK sign, thumbs up, and crossover IF and MF, extend wrist -SILT median, musculocutaneous, radial, ulnar, axillary nerve distributions -warm and well perfused A: 72 year old RHD MALE with PMH metastatic RCC with pathologic left distal humeral shaft fracture. Placed in a coaptation and posterior slab splint in the ED. Plan for IR procedure today and orthopedic operative management on Sunday. P: Primary Team: Medicine - IR and ortho to coordinate timing of embolization and orthopedic surgery; must be within 24 hours of one another - DNR order to remain in place for surgery/procedures - multimodal pain medications ordered this morning - Medicine clearance pending - Consent obtained - NWB LUE for now - NPO for possible IR/OR today - All preop labs complete - DVT ppx: hold preop Staff:Esha Sepulveda DO Orthopedic Surgery PGY1 /es/ WESTON SEPULVEDA DO RESIDENT Signed: 07/17/2022 07:07 WESTON SEPULVEDA [facility] July 16, 2022 09:26 PM NURSING INPATIENT NOTE: LOCAL TITLE: [facility] NURSING PROGRESS NOTE STANDARD TITLE: NURSING INPATIENT NOTE DATE OF NOTE: JULY 16, 2022@21:26 ENTRY DATE: JULY 16, 2022@21:26:13 AUTHOR: LANG MARQUIS EXP COSIGNER: URGENCY: STATUS: COMPLETED Nursing Shift Note Nursing care provided from 19:30-08:00 Highlights from shift: sleeping at start of shift. Gave requested hydromorphone 0.5mg/.5ml and Methocarbamol 1000mg during this time for left arm pain which was somewhat effective. stating he is looking forward to the scheduled surgery. Slept throughout the night. See ICCA for detailed assessment Skin Interventions performed this shift: Patient's heels elevated with pressure relief boots or pillows under calves. Patient kept clean and dry with barrier cream applied as ordered. Head of Bed kept below 30 degrees unless otherwise ordered. Other: [place] independent with repositioning. /sangita/ KYM KernsN,RN,CRRN JRB Signed: 07/17/2022 07:16 LANG MARQUIS [facility] July 16, 2022 03:34 PM INTERNAL MEDICINE INPATIENT NOTE: LOCAL TITLE: MEDICINE INPT PROGRESS NOTE STANDARD TITLE: INTERNAL MEDICINE INPATIENT NOTE DATE OF NOTE: JULY 16, 2022@15:34 ENTRY DATE: JULY 16, 2022@15:34:17 AUTHOR: ROLLY PAULA EXP COSIGNER: URGENCY: STATUS: COMPLETED MEDICINE INPT PROGRESS NOTE Has ADDENDA S: Patient notes pain in arm. He is a little bit nervous for the procedures, but hopes to be able to use arm in aftermath and have less pain O: Tmax: 98.4; HR: 57-70; BP: 121-163/73-80; RR: 18-20; So2: 94-97% RA GEN: elderly male, seated on side of bed, L arm in sling A/P: 72 years old MALE with metastatic RCC (untreated), prostate cancer, HTN, SANTHOSH and obesity presenting with L humerus fracture. 1. Pathologic L humerus fracture: likely represents RCC metastases. Orthopedic surgery evaluated patient and plan to take to OR for repair. - IR emolization Wednesday 05/17; to OR with Orthopedic Surgery Thursday 05/18 - hydromorphone IV 0.5mg q2 hrs PRN pain - added polyethylene glycol for bowel regimen. 2. Risk evaluation: patient with no known hx of DM II, CHF, CAD or CKD; revised cardiac risk index doesn't account for malignancy and therefore patient would be considered low risk for intermediate risk surgery. ACS NSQIP Surgical Risk Calculator does take into consideration both malignancy and systemic disease. Including those factors for osteotomy, humerus (closest I could find), patient was noted to have 5.9% risk of serious complications (slightly above average) and 3.3% risk fo (above average). There is no way to minimize or mitigate patient's risk due to his metastatic disease; it is reasonable to pursue surgery given his palliative goals. - patient wishes to have DNR code status in place during procedures - lisinopril hold for 07/17 and 07/18 - paitent with SANTHOSH; using CPAP this evening, would recommend CPAP in PACU/recovery 3. Prostate cancer: - patient straight caths, regularly (twice a day at home) - he had been using tamsulosin intermittently (when he wanted to try void freely) but not recently. DNR NPO after MN for procedure N Nisa [phone] /sangita/ ROLLY PAULA MD PHYSICIAN Signed: 07/16/2022 15:38 07/16/2022 ADDENDUM STATUS: COMPLETED 4. Goals of Care/Self Cares at home: patient is very independent with good outlook (despite metastatic RCC). He has been able to maintain self-cares at home with and symptoms under control (once fracture managed). But between now and his , could potentially need more support. Offered Palliative consult to discuss; patient was reluctant. Patient with important procedures Sun, ; but there will be presumably be some inpatient time post-operation; asked patient to consider. /sangita/ ROLLY PAULA MD PHYSICIAN Signed: 07/16/2022 17:15 ROLLY PAULA [facility] July 16, 2022 01:25 PM NURSING INPATIENT NOTE: LOCAL TITLE: [facility] NURSING PROGRESS NOTE STANDARD TITLE: NURSING INPATIENT NOTE DATE OF NOTE: JULY 16, 2022@13:25 ENTRY DATE: JULY 16, 2022@13:25:20 AUTHOR: RAY WATERS V EXP COSIGNER: URGENCY: STATUS: COMPLETED Nursing Shift Note Nursing care provided from [phone] Highlights from shift: is alert and oriented x4,independent in room. able to make needs known Self caths. Good appetite is excited for procedures tomorrow and sunday,will be NPO at midnight. Methocarbonal and dilaudid given for pain and muscle spasms. See ICCA for detailed assessment, Education provided on medication/cares this shift as needed SKIN REINSPECTION/REASSESSMENT SKIN INSPECTION: Skin Color: Usual for ethnicity Skin Temperature: Warm Skin Moisture: Normal Skin Turgor: Elastic (normal/immediate) Afshin Skin Assessment: The patient's Afshin Scale Score is 22. The patient is considered not at risk for development of pressure ulcers/injuries. Sensory perception -- ability to respond meaningfully to pressure-related discomfort No impairment. Moisture -- degree to which skin is exposed to moisture Rarely moist. Activity -- ability to change and control body position Walks frequently. Mobility -- ability to change and control body position No limitation. Nutrition -- usual food intake patterns Adequate. Friction and shear No apparent problem. INTERVENTIONS: The pressure injury interventions were not needed - patient/resident is not at risk. SKIN INTEGRITY: Intact Skin Interventions performed this shift: Head of Bed kept below 30 degrees unless otherwise ordered. Other: Encouraged patient to change positions frequently /sangita/ RAY WATERS RN Signed: 07/16/2022 19:06 RAY WATERS V [facility] July 16, 2022 07:49 AM PASTORAL CARE NOTE: LOCAL TITLE: [employer]ER-VISITATION NOTE STANDARD TITLE: PASTORAL CARE NOTE DATE OF NOTE: JULY 16, 2022@07:49 ENTRY DATE: JULY 17, 2022@07:49:09 AUTHOR: VALENCIA CRAIG EXP COSIGNER: URGENCY: STATUS: COMPLETED SUBJECT: [facility] Pastoral visit. The patient asked to receive Shabbir in the most Holy Eucharist. The Sacrament was celebrated with the patient. Progress note entered for Brother Amadeo Messina, [facility] - [employer] Supervisor of [facility] - Volunteer. /es/ FATHER VALENCIA GLORIAIENGildarod CRAIG CHIEF, [employer] SERVICE Signed: 07/17/2022 07:49 VALENCIA CRAIG [facility] July 16, 2022 02:23 AM NURSING INPATIENT NOTE: LOCAL TITLE: [facility] NURSING PROGRESS NOTE STANDARD TITLE: NURSING INPATIENT NOTE DATE OF NOTE: JULY 16, 2022@02:23 ENTRY DATE: JULY 16, 2022@02:23:55 AUTHOR: LANG MARQUIS EXP COSIGNER: URGENCY: STATUS: COMPLETED Nursing Shift Note Nursing care provided from 19:30-08:00 Highlights from shift: in pleasant mood per usual. Independent in room. Able to independently straight cath. Given requested Hydromorphone 0.5mg/.5ml and Methocarbamol during this time for pain which was somewhat effective. Up in chair in the AM. See ICCA for detailed assessment Skin Interventions performed this shift: Head of Bed kept below 30 degrees unless otherwise ordered. Other: independent with repositioning. /sangita/ KYM KernsN,RN,CRRN JRB Signed: 07/16/2022 07:29 LANG MARQUIS [facility] July 15, 2022 03:55 PM NURSING INPATIENT NOTE: LOCAL TITLE: [facility] NURSING PROGRESS NOTE STANDARD TITLE: NURSING INPATIENT NOTE DATE OF NOTE: JULY 15, 2022@15:55 ENTRY DATE: JULY 15, 2022@15:55:52 AUTHOR: RAY WATERS V EXP COSIGNER: URGENCY: STATUS: COMPLETED Nursing Shift Note Nursing care provided from Highlights from shift: Patient is alert and oriented x4. Pain control continues to be an issues. Goes between methocarbonol and IV dilaudid. Patient states that he doesnt want to take too much and ruin his kidneys. Educated patient on side effects and noted we are watching him closley. Independent in room, sling to left elbow, self caths, good appetite. See ICCA for detailed assessment, Education provided on medication/cares this shift as needed SKIN REINSPECTION/REASSESSMENT SKIN INSPECTION: Skin Color: Usual for ethnicity Skin Temperature: Warm Skin Moisture: Normal Skin Turgor: Elastic (normal/immediate) Afshin Skin Assessment: The patient's Afshin Scale Score is 22. The patient is considered not at risk for development of pressure ulcers/injuries. Sensory perception -- ability to respond meaningfully to pressure-related discomfort No impairment. Moisture -- degree to which skin is exposed to moisture Rarely moist. Activity -- ability to change and control body position Walks occasionally. Mobility -- ability to change and control body position No limitation. Nutrition -- usual food intake patterns Excellent. Friction and shear No apparent problem. INTERVENTIONS: The pressure injury interventions were not needed - patient/resident is not at risk. RISK FACTORS THAT INCREASE RISK FOR DEVELOPING PRESSURE INJURIES The patient/resident does not have any additional risk factors. SKIN INTEGRITY: Intact Skin Interventions performed this shift: Head of Bed kept below 30 degrees unless otherwise ordered. Other: Encouraged change in positioning /es/ RAY WATERS RN Signed: 07/15/2022 19:13 RAY WATERS V [facility] July 15, 2022 10:16 AM INTERNAL MEDICINE INPATIENT NOTE: LOCAL TITLE: MEDICINE INPT PROGRESS NOTE STANDARD TITLE: INTERNAL MEDICINE INPATIENT NOTE DATE OF NOTE: JULY 15, 2022@10:16 ENTRY DATE: JULY 15, 2022@10:16:30 AUTHOR: ROLLY PAULA COSIGNER: URGENCY: STATUS: COMPLETED S: Patient notes significant pain in arm, but he is trying to be sparing with pain medication. We discussed side effects of confusion and constipation. Has not had a BM in a bit, but thinks one is imminent. He is able to strait cath himself with only full use of R arm; which is good, as that is important for self-cares at home. O: Tmax: 98.2; HR: 55-61; BP: 129-149/63-77; RR: 18-21; SO2: 92-96% RA GEN: elderly male, breathing comfortably on RA, no apparent discomfort or distress A/P: 72 years old MALE with metastatic RCC (untreated), prostate cancer, HTN, SANTHOSH and obesity presenting with L humerus fracture. 1. Pathologic L humerus fracture: likely represents RCC metastases. Orthopedic surgery evaluated patient and plan to take to OR for repair. - IR emolization Wednesday 05/17; to OR with Orthopedic Surgery Thursday 05/18 - hydromorphone IV 0.5mg q2 hrs PRN pain - added polyethylene glycol for bowel regimen. 2. Risk evaluation: patient with no known hx of DM II, CHF, CAD or CKD; revised cardiac risk index doesn't account for malignancy and therefore patient would be considered low risk for intermediate risk surgery. ACS NSQIP Surgical Risk Calculator does take into consideration both malignancy and systemic disease. Including those factors for osteotomy, humerus (closest I could find), patient was noted to have 5.9% risk of serious complications (slightly above average) and 3.3% risk fo (above average). There is no way to minimize or mitigate patient's risk due to his metastatic disease; it is reasonable to pursue surgery given his palliative goals. - patient wishes to have DNR code status in place during procedures - will resume lisinopril for 07/15 and 07/16; hold for 07/17 and 07/18 - paitent with SANTHOSH; using CPAP this evening, would recommend CPAP in PACU/recovery 3. Prostate cancer: - patient straight caths, regularly (twice a day at home) - he had been using tamsulosin intermittently (when he wanted to try void freely) but not recently. DNR N Nisa [phone] /sangita/ ROLLY PAULA MD PHYSICIAN Signed: 07/15/2022 10:21 ROLLY PAULA [facility] July 15, 2022 12:22 AM NURSING INPATIENT NOTE: LOCAL TITLE: [facility] NURSING PROGRESS NOTE STANDARD TITLE: NURSING INPATIENT NOTE DATE OF NOTE: JULY 15, 2022@00:22 ENTRY DATE: JULY 15, 2022@00:22:11 AUTHOR: LANG MARQUIS COSIGNER: URGENCY: STATUS: COMPLETED Nursing Shift Note Nursing care provided from 19:30-08:00 Highlights from shift: given requested Hydromorphone 0.5mg/0.5ml along with Methocarbamol 1000mg for muscle spasms. [place] requested to not be awakened until time of next vitals at approx. 03:30. [place] now independent with SIC, repositioning and ambulating in room. States having a sling makes this possible. in pleasant mood. Slept off/on during the night. See ICCA for detailed assessment Skin Interventions performed this shift: Patient turned [id number] or as appropriate while in bed. Patient's heels elevated with pressure relief boots or pillows under calves. Patient kept clean and dry with barrier cream applied as ordered. Device(s) removed and skin underneath was inspected. Head of Bed kept below 30 degrees unless otherwise ordered. Other: [place] independent with repositioning. /sangita/ ERIN Kerns,RN,CRRN JRB Signed: 07/15/2022 07:09 LANG MARQUIS [facility] July 14, 2022 07:06 PM INTERNAL MEDICINE INPATIENT NOTE: LOCAL TITLE: MEDICINE INPT PROGRESS NOTE STANDARD TITLE: INTERNAL MEDICINE INPATIENT NOTE DATE OF NOTE: JULY 14, 2022@19:06 ENTRY DATE: JULY 14, 2022@19:06:22 AUTHOR: ROLLY PAULA COSIGNER: URGENCY: STATUS: COMPLETED S: Patient notes signficant pain in L arm; it is improved now that he is using a sling. O: Tmax: 98.3; HR: 54-64; B{: 120-169/71-90; RR: 18-20; SO2: 93-96% RA GEN: elderly male, breathing comfortably on RA, no apparent distress A/P: 72 years old MALE with metastatic RCC (untreated), prostate cancer, HTN, SANTHOSH and obesity presenting with L humerus fracture. 1. Pathologic L humerus fracture: likely represents RCC metastases. Orthopedic surgery evaluated patient and plan to take to OR for repair. - IR emolization Wednesday 05/17; to OR with Orthopedic Surgery Thursday 05/18 - hydromorphone IV 0.5mg q2 hrs PRN pain 2. Risk evaluation: patient with no known hx of DM II, CHF, CAD or CKD; revised cardiac risk index doesn't account for malignancy and therefore patient would be considered low risk for intermediate risk surgery. ACS NSQIP Surgical Risk Calculator does take into consideration both malignancy and systemic disease. Including those factors for osteotomy, humerus (closest I could find), patient was noted to have 5.9% risk of serious complications (slightly above average) and 3.3% risk fo (above average). There is no way to minimize or mitigate patient's risk due to his metastatic disease; it is reasonable to pursue surgery given his palliative goals. - patient wishes to have DNR code status in place during procedures - will resume lisinopril for 07/15 and 07/16; hold for 07/17 and 07/18 - paitent with SANTHOSH; using CPAP this evening, would recommend CPAP in PACU/recovery 3. Prostate cancer: - patient straight caths, regularly (twice a day at home) - he had been using tamsulosin intermittently (when he wanted to try void freely) but not recently. DNR N Nisa [phone] /es/ ROLLY PAULA MD PHYSICIAN Signed: 07/14/2022 19:15 ROLLY PAULA [facility] July 14, 2022 05:11 PM NURSING NOTE: LOCAL TITLE: [facility] NSG IV INSERTION AND MAINTENANCE STANDARD TITLE: NURSING NOTE DATE OF NOTE: JULY 14, 2022@17:11 ENTRY DATE: JULY 14, 2022@17:11:46 AUTHOR: AMBER AVERY EXP COSIGNER: URGENCY: STATUS: COMPLETED Version 2.2 Charting in accordance with MD APPROVED [place] STANDARD ([facility]) ACUTE INPATIENT/REHABILITATION NURSING ADMISSION SCREENING, ASSESSMENT, AND STANDARDS OF CARE ======== IV Line Insertion and Maintenance ======== ======== Peripheral IV ======== Line #1: Discontinue: Location: Right, Forearm Date/Time: June@15:20 Reason for discontinuation: Occlusion Line #2: Insertion: Date/Time: June@15:25 Inserted by (name): clinical writer Location: Right, Forearm Gauge: 20 Assessment: Dressing Condition: Clean, dry, intact Site Condition: No redness, swelling, pain Line Status: Capped Flushed Positive blood return /es/ AMBER AVERY DRYWALL STRIPPER LICENSED PRACTICAL NURSE Signed: 07/14/2022 17:13 AMBER AVERY [facility] July 14, 2022 09:46 AM NURSING INPATIENT NOTE: LOCAL TITLE: [facility] NURSING PROGRESS NOTE STANDARD TITLE: NURSING INPATIENT NOTE DATE OF NOTE: JULY 14, 2022@09:46 ENTRY DATE: JULY 14, 2022@09:46:21 AUTHOR: AMBAW,JAIME A EXP COSIGNER: URGENCY: STATUS: COMPLETED Nursing Shift Note Nursing care provided from [id number] Patient alert and oriented X4, pleasant and cooperative with care. Requires assist of one with transfer and able to ambulate to bathroom. Pain on left elbow and PRN IV hydromorphone 0.5mg and Methocarbamol was given with helpful. No SOB/distress reported, VSS and afebrile. Continent of bowel, no BM reported this shift, able to self-straight Cath X3 this shift. Pt uses Sling on left elbow and splint in place and intact. Will continue to monitor. See ICCA for detailed assessment, Education provided on medication/cares this shift as needed SKIN REINSPECTION/REASSESSMENT SKIN INSPECTION: Skin Color: Usual for ethnicity Skin Temperature: Warm Skin Moisture: Normal Skin Turgor: Elastic (normal/immediate) Afshin Skin Assessment: The patient's Afshin Scale Score is 20. The patient is considered not at risk for development of pressure ulcers/injuries. Sensory perception -- ability to respond meaningfully to pressure-related discomfort No impairment. Moisture -- degree to which skin is exposed to moisture Rarely moist. Activity -- ability to change and control body position Walks occasionally. Mobility -- ability to change and control body position Slightly limited. Nutrition -- usual food intake patterns Adequate. Friction and shear No apparent problem. INTERVENTIONS: The pressure injury interventions were not needed - patient/resident is not at risk. RISK FACTORS THAT INCREASE RISK FOR DEVELOPING PRESSURE INJURIES The patient/resident does not have any additional risk factors. SKIN INTEGRITY: Intact Skin Interventions performed this shift: Patient's heels elevated with pressure relief boots or pillows under calves. Patient kept clean and dry with barrier cream applied as ordered. Head of Bed kept below 30 degrees unless otherwise ordered. /sangita/ JAIME STEINBERG RN REGISTERED NURSE Signed: 07/14/2022 19:34 JAIME STEINBERG [facility] July 14, 2022 07:18 AM ORTHOPEDIC SURGERY ATTENDING NOTE: LOCAL TITLE: ORTHOPEDIC INPT PROGRESS NOTE STANDARD TITLE: ORTHOPEDIC SURGERY ATTENDING NOTE DATE OF NOTE: JULY 14, 2022@07:18 ENTRY DATE: JULY 14, 2022@07:18:25 AUTHOR: WESTON SEPULVEDA EXP COSIGNER: URGENCY: STATUS: COMPLETED Orthopedic Inpatient Progress Note June S: No acute events overnight. Pain not well controlled this morning- expresses severe pain. Patient going to XR this morning. States previous parasthesias in L hand have improved. O: Temperature 98.3 F [36.8 C] (07/14/2022 07:08) HR 60 (07/14/2022 07:08) Respirations 18 (07/14/2022 07:08) BP 120/71 (07/14/2022 07:08) POX% 94% (07/14/2022 07:08) Pain Scale 7 (07/14/2022 07:08) Exam: General: uncomfortable, NAD Respiratory: Non-labored breathing Cardiovascular: skin warm and well perfused Left Upper Extremity: -Splint clean, dry, intact - Able to OK sign, tthumbs up (weak), and crossover IF and MF, extend wrist -SILT median, musculocutaneous, radial, ulnar, axillary nerve distributions -warm and well perfused Labs: - Complete Blood Count White count: WBC 8.82 (07/13/22) Hemoglobin: HGB 13.1 L (07/13/22) Hematocrit: HCT 37.5 L (07/13/22) Platelets: PLT 182 (07/13/22) - Complete Metabolic Panel SODIUM 139 (07/13/22) POTASSIUM 4.3 (07/13/22) CHLORIDE 106 (07/13/22) CO2 26 (07/13/22) UREA NITROGEN 16 (07/13/22) CREATININE 1.0 (07/13/22) GLUCOSE 129 H (07/13/22) CALCIUM 9.2 (07/13/22) MAGNESIUM 2.2 (07/13/22) EGFR (09/29) 03/17/20 @ 0904 111 CREATININE EGFR (CKD-EPI) 07/13/22 @ 1100 79 ALBUMIN 3.9 (07/13/22) A: 72 year old RHD MALE with PMH metastatic RCC with pathologic left distal humeral shaft fracture. Placed in a coaptation and posterior slab splint in the ED. Plan for operative management. P: Primary Team: Medicine - IR and ortho to coordinate timing of embolization and orthopedic surgery; must be within 24 hours of one another - DNR order to remain in place for surgery/procedures - multimodal pain medications ordered this morning - Medicine clearance pending - Consent obtained - NWDerek LUE for now - NPO for possible IR/OR today - All preop labs complete - DVT ppx: hold preop Staff:Esha Sepulveda DO Orthopedic Surgery PGY1 /es/ WESTON SEPULVEDA DO RESIDENT Signed: 07/14/2022 07:25 PEDROHERBERTJAIRO [facility] July 13, 2022 10:03 PM NURSING INPATIENT NOTE: LOCAL TITLE: [facility] NURSING PROGRESS NOTE STANDARD TITLE: NURSING INPATIENT NOTE DATE OF NOTE: JULY 13, 2022@22:03 ENTRY DATE: JULY 13, 2022@22:03:55 AUTHOR: LANG MARQUIS EXP COSIGNER: URGENCY: STATUS: COMPLETED Nursing Shift Note Nursing care provided from 19:30-08:00 Highlights from shift: in pleasant mood. Stating he is comfortable with no pain if he does not move his left arm. Given requested Oxycodone 10mg for left arm pain. SIC with assistance. Output 300ml and 350ml during this time. C-pap on during the night. Sent down for x-ray in the AM. MOD called for more pain management. Hydromorphone 05mg/.5ml given. See ICCA for detailed assessment Skin Interventions performed this shift: Patient turned [id number] or as appropriate while in bed. Patient's heels elevated with pressure relief boots or pillows under calves. Patient kept clean and dry with barrier cream applied as ordered. Device(s) removed and skin underneath was inspected. Head of Bed kept below 30 degrees unless otherwise ordered. Other: Repositioned as tolerated. /sangita/ ERIN Kerns,RN,CRRN JRB Signed: 07/14/2022 07:19 LANG MARQUIS [facility] July 13, 2022 07:24 PM NURSING INPATIENT NOTE: LOCAL TITLE: [facility] NURSING PROGRESS NOTE STANDARD TITLE: NURSING INPATIENT NOTE DATE OF NOTE: JULY 13, 2022@19:24 ENTRY DATE: JULY 13, 2022@19:25:02 AUTHOR: ANNIE LINCOLN EXP COSIGNER: URGENCY: STATUS: COMPLETED Nursing Shift Note Nursing care provided from [phone] Highlights from shift: Alert and oriented X4. C/O of 7/10 L arm pain upon arrival from ED. Given PRN oxycodone 10mg with effective pain relief. On RA. Denies SOB. Independent baseline but hasn't ambulated since 8am this morning. Educated patient to call for assistance when getting out of bed. L arm sling in place. History of urinary retention due to enlarged prostate, does self cathing at home. Need assistance with straight Cath due to limited mobility in L arm. Straight Cath X2 this shift. Applied Mepilex on coccyx. Able to turn in bed with minimal assistance. NPO at midnight for procedure tomorrow. Pleasant and cooperative with cares. Wears CPAP at night. Denies any concern this shift. See ICCA for detailed assessment, Education provided on medication/cares this shift as needed SKIN REINSPECTION/REASSESSMENT SKIN INSPECTION: Skin Color: Usual for ethnicity Skin Temperature: Warm Skin Moisture: Normal Skin Turgor: Elastic (normal/immediate) Afshin Skin Assessment: The patient's Afshin Scale Score is 20. The patient is considered not at risk for development of pressure ulcers/injuries. Sensory perception -- ability to respond meaningfully to pressure-related discomfort No impairment. Moisture -- degree to which skin is exposed to moisture Rarely moist. Activity -- ability to change and control body position Walks occasionally. Mobility -- ability to change and control body position Slightly limited. Nutrition -- usual food intake patterns Adequate. Friction and shear No apparent problem. INTERVENTIONS: The pressure injury interventions were not needed - patient/resident is not at risk. RISK FACTORS THAT INCREASE RISK FOR DEVELOPING PRESSURE INJURIES The patient/resident does not have any additional risk factors. SKIN INTEGRITY: Intact Skin Interventions performed this shift: Patient's heels elevated with pressure relief boots or pillows under calves. Patient kept clean and dry with barrier cream applied as ordered. Head of Bed kept below 30 degrees unless otherwise ordered. /sangita/ ANNIE LINCOLN RN Signed: 07/13/2022 19:34 ANNIE LINCOLN [facility] July 13, 2022 06:25 PM RESPIRATORY THERAPY NOTE: LOCAL TITLE: RESPIRATORY THERAPY F/U NOTE STANDARD TITLE: RESPIRATORY THERAPY NOTE DATE OF NOTE: JULY 13, 2022@18:25 ENTRY DATE: JULY 13, 2022@22:04:38 AUTHOR: CRYSTAL FONG RA COSIGNER: URGENCY: STATUS: COMPLETED Reason for visit: loaner PAP set up Diagnosis: SANTHOSH Current Orders: Chronic NIPPV CPAP Settings: 11-20 cmH2O Mask: Large nasal Therapist Comments: fitted with interface and educated on machine operation. States understanding. /sangita/ CRYSTAL FONG REGISTERED RESPIRATORY THERAPIST Signed: 07/13/2022 22:07 CRYSTAL FONG [facility] July 13, 2022 06:22 PM H & P NOTE: LOCAL TITLE: H&P HISTORY & PHYSICAL STANDARD TITLE: H & P NOTE DATE OF NOTE: JULY 13, 2022@18:22 ENTRY DATE: JULY 13, 2022@18:22:49 AUTHOR: ROLLY PAULA COSIGNER: URGENCY: STATUS: COMPLETED MEDICINE HISTORY & PHYSICAL Chief Complaint: Arm pain History of Present Illness (HPI) - 72 years old MALE with metastatic RCC (untreated), prostate cancer, HTN, SANTHOSH and obesity presenting with L humerus fracture. Patient had been notes discomfort in L arm for a month (and had been going to see a chiropracter). Yesterday, he noted sudden sharp increase in pain that persisted. Otherwise, he is usual state of health. Denies recent illness. Denies SOB, CP or cough. Denies abd pain, N/V/D. He straight caths due to prostate cancer. Denies MARIE. He denies any hx of prior surgeries or episodes with general anesthesia. He denies hx of bleeding or clotting disorders. Past Medical History: Active problems - Computerized Problem List is the source for the followin. OBESITY, UNSP 2. LIVER CHEM, ABNORMAL 3. Adjustment Disorder with Mixed Anxiety and Depressed Mood 4. Other and unspecified Sleep Apnea 5. Elevated Prostate Specific Antigen (PSA) 6. Dysmetabolic Syndrome X 7. Polyp of colon (SNOMED CT 46380604) - 2011, repeat in 7-10 years, see report 8. Malignant tumor of prostate (SNOMED CT 583939205) 9. Benign hypertension 10. Retention of urine 11. Malignant tumor of kidney parenchyma 12. Multinodular goiter 13. Secondary malignant neoplasm of pancreas Family History: non-contributory to acute presentation Social History: Lives with 1. Tobacco - denies tobacco use 2. Alcohol - quit 20 yrs ago Allergies: HAZELNUTS (Nov 21, 2002) Review of System: General: denies F/C Cardiovascular: denies Cp Lungs: denies SOB GI: denies N/V/D, abd pain : straight caths Neuro: denies MARIE MSK: see Hpi Physical Exam: Temp: 97.6 F [36.4 C] (07/13/2022 16:25) Pulse:56 (07/13/2022 16:25) BP: 163/88 (07/13/2022 16:25) Resp: 16 (07/13/2022 09:10) Weight: 240.0 lb [108.86 kg] (07/13/2022 16:25) Pain: 8 (07/13/2022 17:10) O2 Sat: 96% (07/13/2022 16:25) BMI: 32.6 General: elderly male, seated in bed, L arm in sling, using R arm to eat dinner Cardio: RRR Lungs: CTAB Extrem: L arm with compressive bandage and sling Neuro: answers questions appropriately, moving all extremities Labs: - INR: INR 0.9 PLASMA (07/13/22 11:00) - Complete Blood Count White count: WBC 8.82 (07/13/22) Hemoglobin: HGB 13.1 L (07/13/22) Hematocrit: HCT 37.5 L (07/13/22) Platelets: PLT 182 (07/13/22) - Complete Metabolic Panel SODIUM 139 (07/13/22) POTASSIUM 4.3 (07/13/22) CHLORIDE 106 (07/13/22) CO2 26 (07/13/22) UREA NITROGEN 16 (07/13/22) CREATININE 1.0 (07/13/22) GLUCOSE 129 H (07/13/22) CALCIUM 9.2 (07/13/22) MAGNESIUM 2.2 (07/13/22) EGFR (09/29) 03/17/20 @ 0904 111 CREATININE EGFR (CKD-EPI) 07/13/22 @ 1100 79 AST/SGOT 18 (07/13/22) ALT/SGPT 17 (07/13/22) ALK PHOSPHATASE 73 (07/13/22) ALBUMIN 3.9 (07/13/22) BILIRUBIN, TOTAL 1.2 (07/13/22) Active Outpatient Medications (including Supplies): Outpatient Medications Status 1) CATHETER,SELF-CATH COUDE 14FR COLO#[id number] USE CATHETER ACTIVE TOPICALLY DIRECTED 2) LISINOPRIL [...] MOUTH EVERY DAY ACTIVE 7 Total Medications Assessment/Plan: 72 years old MALE with metastatic RCC (untreated), prostate cancer, HTN, SANTHOSH and obesity presenting with L humerus fracture. 1. Pathologic L humerus fracture: likely represents RCC metastases. Orthopedic surgery evaluated patient and plan to take to OR for repair. - Orthopedic surgery consulted IR for pre-procedure embolization of met; given vascular nature of RCC tumors - to OR with Orthopedic surgery - pain control: oxycodone 10mg PO (had IV hydromorphone in ER; if pain greater overnight, can escalate/resume IV pain control) 2. Risk evaluation: patient with no known hx of DM II, CHF, CAD or CKD; revised cardiac risk index doesn't account for malignancy and therefore patient would be considered low risk for intermediate risk surgery. ACS NSQIP Surgical Risk Calculator does take into consideration both malignancy and systemic disease. Including those factors for osteotomy, humerus (closest I could find), patient was noted to ahve 5.9% risk of serious complications (slightly above above) and 3.3% risk fo (above averge). There is no way to minimize or mitigate patient's risk due to his metastatic disease; it is reasonable to pursue surgery with given his palliative goals. - patient wishes to have DNR code status in place during procedures - holding ACEi (lisinopril) morning of procedure - paitent with SANTHOSH; using CPAP this evening, would recommend CPAP in PACU/recovery 3. Prostate cancer: - patient straight caths, regularly (twice a day at home) - he had been using tamsulosin intermittently (when he wanted to try void freely) but not recently. DNR N Nisa [phone] /es/ ROLLY PAULA MD PHYSICIAN Signed: 07/13/2022 18:58 ROLLY PAULA [facility] July 13, 2022 06:02 PM LIFE-SUSTAINING TREATMENT PLAN: LOCAL TITLE: LIFE-SUSTAINING TREATMENT STANDARD TITLE: LIFE-SUSTAINING TREATMENT PLAN DATE OF NOTE: JULY 13, 2022@18:02 ENTRY DATE: JULY 13, 2022@18:02:26 AUTHOR: ROLLY PAULA EXP COSIGNER: URGENCY: STATUS: COMPLETED LIFE-SUSTAINING TREATMENT Has ADDENDA LIFE-SUSTAINING TREATMENT (LST) DECISION-MAKING CAPACITY TO MAKE [...] OF SUPERVISING PRACTITIONER No Attending/supervising practitioner required. /sangita/ ROLLY PAULA MD PHYSICIAN Signed: 07/13/2022 18:08 07/18/2022 ADDENDUM STATUS: COMPLETED DNR WITH EXCEPTION: ONLY attempt CPR,, mechanical ventilation,, noninvasive ventilation, may use blood products during the following procedure: open reduction internal fixation left humerus and in the [facility] Center recovery area for 2 hours starting on June@07:36. After this time has elapsed this order will no longer apply and the patient's request to be DNR and have other limitations to care as described in the most recent Life Sustaining Treatment note will once again be active. /sangita/ MICHAEL BALBUENA MD STAFF ORTHOPAEDIC SURGEON Signed: 07/18/2022 07:37 ROLLY PAULA [facility] July 13, 2022 04:51 PM TREATMENT PLAN INTERDISCIPLINARY NOTE: LOCAL TITLE: ITP INTERDISCIPLINARY TREATMENT PLAN STANDARD TITLE: TREATMENT PLAN INTERDISCIPLINARY NOTE DATE OF NOTE: JULY 13, 2022@16:51 ENTRY DATE: JULY 13, 2022@16:52:02 AUTHOR: ANNIE LINCOLN EXP COSIGNER: URGENCY: STATUS: COMPLETED Interdisciplinary Treatment Plan (ITP) Date of current Admission: June Medical problems to be addressed, including reason for admission as well as all active medical problems: 1. OBESITY, UNSP 2. LIVER CHEM, ABNORMAL 3. Adjustment Disorder with Mixed Anxiety and Depressed Mood 4. Other and unspecified Sleep Apnea 5. Elevated Prostate Specific Antigen (PSA) 6. Dysmetabolic Syndrome X 7. Polyp of colon (SNOMED CT [id number]) - 2011, repeat in 7-10 years, see report 8. Malignant tumor of prostate (SNOMED CT [id number]) 9. Benign hypertension 10. Retention of urine 11. Malignant tumor of kidney parenchyma 12. Multinodular goiter 13. Secondary malignant neoplasm of pancreas At risk indicators at time of admission: Pain noted other than 0 on 0-10 pain scale, High risk for falls noted using the Juares tool Support services in community: Current living situation: Lives with Spouse Patient Goals:Discharge home Treatment plan/Interventions: Encourage activity as tolerated., Educated Patient on use of Pain Scale, Pressure Ulcer Prevention Protocol implemented., Place fall field education director the Kardex., Relocate patient as close to nursing station as possible. Measurable Outcomes: Patient will verablize understanding of the 0-10 pain scale., Patient will deny pain or report that pain is managed at an acceptable level., Patient will not fall during hospitalization., Skin will remain intact/or no further breakdown., Patient will maintain maximum level of function. Discharge Plan: TBD Anticipated resources needed for discharge:TBD Anticipated educational needs: TBD Tests/treatments/procedures: risks and benefits, disease process, medication management, and discharge instructions. Participants:Patient and Spouse Transportation needs: Spouse Plan of care shared with patient/family and verbalized with understanding. /sangita/ ANNIE LINCOLN RN Signed: 07/13/2022 16:56 ANNIE LINCOLN [facility] July 13, 2022 04:41 PM NURSING ADMISSION EVALUATION NOTE: LOCAL TITLE: [facility] ACUTE INPATIENT NSG ADMISSION SCREEN STANDARD TITLE: NURSING ADMISSION EVALUATION NOTE DATE OF NOTE: JULY 13, 2022@16:41 ENTRY DATE: JULY 13, 2022@16:43:56 AUTHOR: ANNIE LINCOLN EXP COSIGNER: URGENCY: STATUS: COMPLETED ===== ALLERGY/ADVERSE DRUG REACTION (ADR) REVIEW (MRT5) ===== FACILITY ALLERGY/ADR -------- No Remote Allergy/ADR Data available for this patient [facility] HAZELNUTS Allergy/Adverse Drug Reaction Review to be conducted by: Nurse: Results of Allergy/ADR Review: Allergy/Adverse Drug Reaction list confirmed. ==== GENERAL INFORMATION ==== Admission information given by: Patient Is there a legal guardian/conservator? No Preferred language for discussing healthcare: Yakut Preferred mode of communication: Verbal Items at Bedside: None Visual Aids: Standard Glasses, Clothes, Shoes, Cell phone. [place] send with spouse. ===== INFECTIOUS DISEASE RISK SCREEN ===== Travel Screen: Have you traveled within the [place] within the last 21 days? No Have you traveled outside the [place] within the last 21 days? No Within the last 14 days, have you had: No known exposure Other Exposure to Infectious Disease: No known exposure Patient reported the following symptoms: No Symptoms Present History of Multiple Drug Resistant Organism (MDRO): No ===== NUTRITION SCREENING ===== Malnutrition Screening Weight (Previous 6 months): Measurement DT WEIGHT LB(KG)[BMI] 07/13/2022 16:25 240.0(108.86)[33*] 05/17/2022 07:44 249.9(113.35)[34*] 05/10/2022 08:42 246(111.58)[33*] Lost weight recently without trying: No (0 points) Have you been eating poorly because of decreased appetite? No (0 points) Total Score: 0 Other Nutrition Screening Questions: The patient does not report any concerns with their teeth that would make it difficult to eat. The patient does not report overeating to the point of feeling sick or making themselves vomit. The patient denies gaining 10 lbs.(4.5 kgs) or more in the past 3 months without trying. The patient reports having a food allergy, intolerance, special dietary need, or ethnic, cultural or evangelical preference that affects their dietary need. Specify: hazelnut allergies Food Insecurity Screening Within the past 12 months, you worried whether your food would run out before you got money to buy more. Never true Within the past 12 months, the food you bought just did not last you and you did not have the money to get more. Never true Food Insecurity Disposition: ==== RISK SCREENINGS ==== Alcohol Screen: Screen to be completed by: Nurse: SCREEN FOR ALCOHOL (AUDIT-C) An alcohol screening [...] required due to responses to other questions. *Does the patient consume alcohol? No Tobacco Use: Former - tobacco user Do you currently or have you ever used alternative nicotine products? No Substance Use Assessment: *Do you use any recreational drugs or narcotics (prescription or non-prescription)? No ===== RISK OF WANDERING ===== The patient does not have a history of wandering. The patient does not have a history of elopement. The patient is not expressing a desire to leave. === SUICIDE SCREEN === Result of C-SSRS screener done was NEGATIVE. C-SSRS Screen is Negative ==== EXPOSURE TO VIOLENCE AND ABUSE PRE-SCREEN ==== Are you worried for your safety, that you will be hurt or harmed? No Has anyone tried to force you to sign papers or use your money against your will? No ==== POST TRAUMATIC STRESS DISORDER CARE CONSIDERATIONS ==== To minimize a startle response, what is your preference on how best to awaken you? No preference === SPIRITUALITY === Are there evangelical practices or spiritual concerns you want the flight hostess, your provider, and other health care team members to know? No ==== ANTICIPATED DISCHARGE NEEDS ==== Where do you live? Housing owned/rented by [place]: Comment: Lives with spouse Method of transportation upon discharge: Private Vehicle: Comment: Spouse Are there any anticipated barriers to discharge? No === EDUCATIONAL NEEDS/LEARNING STYLE === Barriers to learning: None evident Patient learning style preferences: None ==== VISITOR INFORMATION ==== Will you have a primary support person while in the hospital? No Patient's Visitor Restriction preferences: No Privacy Review: ====== JUARES FALL SCALE & TIPS PROGRAM ====== Juares Fall Scale: The Juares Fall scale was performed and score was 45. This is indicative of high risk for falls. History of falling: immediate or within 3 months? No Secondary diagnosis: Yes Ambulatory aid: None/bedrest/nurse assist Intravenous therapy/Heparin lock: Yes Gait/Transferring: Weakness Mental Status: Oriented to own ability/knows own limitations Fall Tailoring Interventions for Patient Safety (TIPS) Fall TIPS initiated with patient: Yes Interventions: Toileting schedule frequency established Toileting method: Other: Assisted with straight cath Assistance out of bed: Call for assistance before getting out of bed ====== PAIN ASSESSMENT ====== Patient's acceptable pain goal: 5 Interrupts some activities Are you currently experiencing pain? Yes - DVPRS scale used to assess Location: [facility] Pain Rating Scale (DVPRS): Pain Score: 7 /es/ ANNIE LINCOLN RN Signed: 07/13/2022 16:51 ANNIE LINCOLN [facility]
--- OUTSIDE RECORDS SUMMARY | 2023-03-24 08:56 | XMS_ITS ---
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 of Vetera [facility] Address [address] [place] [address] Support Name Relationship Address Phone DOREEN WAGNER Next of Kin [address] [place] [phone] DOREEN Emergency Contact [address] [place] [phone] Insurance Providers: All historical and current [...] [facility] (R) June 26, 2016 [id number] JOAN WAGNER KARSTEN PATIENT [employer] MCR (WNR) MEDICARE ADVANTAGE MCR (WNR) June 26, 2016 [id number] JOAN WAGNER KARSTEN PATIENT [employer] MCR (WNR) MEDICARE ADVANTAGE [facility] (WNR) June 26, 2016 [id number] [phone] JOAN WAGNER PATIENT Selected Encounter This section includes the information on record at [place] for the Encounter. Date/Time Encounter Type Encounter Description Reason Pro vider Source July 13, 2022 04:43 PM Inpatient Visit DAILY HOSPITALIZATION DATA [facility] Encounter Template Text not used by [place] Plan of Treatment: Future Appointments (+ 6 [...] 20 appointments. The data comes from all [facility]. Appointment Date/Time Appointment Type Appointme nt Facility Name Jul 28, 2022 10:45 AM [facility] Aug 13, 2022 06:13 PM AMBULATORY - MEDICINE [facility] Aug 23, 2022 09:30 AM AMBULATORY - SURGERY [facility] Aug 23, 2022 09:45 AM [facility] Aug 23, 2022 10:30 AM AMBULATORY - MEDICINE [facility] Aug 23, 2022 10:31 AM AMBULATORY - MEDICINE [facility] Sep 06, 2022 10:15 AM AMBULATORY - SURGERY [facility] Oct 25, 2022 07:00 AM [facility] Oct 25, 2022 07:30 AM AMBULATORY - SURGERY [facility] Oct 25, 2022 09:00 AM AMBULATORY - SURGERY [facility] Active, Pending, and Scheduled Orders This section includes a listing of several types of active, pending, and scheduled orders, including clinic medications orders, diagnostic test orders, procedure orders and consult orders; where the start date of the order is 45 days before the date of the Encounter or 45 days after the date of theEncounter. The data comes from all [facility]. Test Date/Time Test Type Test [...] - Chemistry Order DRUG SCREEN PANEL,URINE URINE [facility] Aug 23, 2022 10:47 AM Laboratory - Chemistry Order URINALYSIS URINE ER STAT [facility] Lab Results: +/- 30 days of the encounter This section includes the Chemistry and Hematology Lab Results on record with [place] for the patient. Radiology Reports and Pathology [...] July 19, 2022 05:00 PM Reporting Lab: [facility] [address] Performing Lab: [facility] [address] FINGERSTICK GLUCOSE 132 70-100 July 19, 2022 07:13 AM [facility] COMPREHENSIVE METABOLIC PANEL+MG Specimen Type: PLASMA No comment entered. Ordering Provider: MACKENZIE COTTER Report Released Date/Time: July 18, 2022 05:40 PM Reporting Lab: [facility] [address] Performing Lab: [facility] [address] CREATININE 0.9 0.7-1.2 UREA NITROGEN 24 8-26 [...] July 18, 2022 05:40 PM Reporting Lab: [facility] [address] Performing Lab: [facility] [address] IRON 28 L 65-175 TIBC,CALCULATE D 223 L 250-425 FERRITIN 73.7 21.8-274.7 IRON SATURATION 13 L 20-50 TRANSFERRIN 178 163-382 July 19, 2022 07:13 AM [facility] CBC Specimen Type: BLOOD No comment entered. Ordering Provider: MACKENZIE COTTER Report Released Date/Time: July 18, 2022 05:40 PM Reporting Lab: [facility] [address] Performing Lab: [facility] [address] WBC 7.73 4.0-11.0 RBC 2.42 L 4.6-6.2 [...] July 19, 2022 11:54 AM Reporting Lab: [facility] [address] Performing Lab: [facility] [address] FINGERSTICK GLUCOSE 137 70-100 July 18, 2022 10:51 PM [facility] FINGERSTICK GLUCOSE Specimen Type: BLOOD Comment: Save Result Nurse Notified Ordering Provider: MACKENZIE COTTER Report Released Date/Time: July 18, 2022 11:06 PM Reporting Lab: [facility] [address] Performing Lab: [facility] [address] FINGERSTICK GLUCOSE 163 70-100 July 17, 2022 06:51 AM [facility] BASIC METABOLIC PANEL+MG Specimen Type: PLASMA No comment entered. Ordering Provider: DANG VALLE Report Released Date/Time: July 16, 2022 09:37 AM Reporting Lab: [facility] [address] Performing Lab: [facility] [address] CREATININE 0.8 0.7-1.2 UREA NITROGEN 23 8-26 [...] July 16, 2022 09:37 AM Reporting Lab: [facility] [address] Performing Lab: [facility] [address] .INR 1.0 0.8-1.1 .PT 11.5 9.4-12.5 July 17, 2022 06:51 AM [facility] CBC Specimen Type: BLOOD No comment entered. Ordering Provider: DANG VALLE R Report Released Date/Time: July 16, 2022 09:37 AM Reporting Lab: [facility] [address] Performing Lab: [facility] [address] WBC 6.05 4.0-11.0 RBC 3.77 L 4.6-6.2 [...] July 13, 2022 11:04 AM Reporting Lab: [facility] [address] Performing Lab: [facility] [address] COVID-19 (CEPHEID) Not Detected Not Detected INFLUENZA A (PCR) Not Detected Not Detected INFLUENZA B (PCR) Not Detected Not Detected RSV (PCR) Not Detected Not Detected July 13, 2022 11:00 AM [facility] C-REACTIVE PROTEIN Specimen Type: SERUM Comment: Automated Differential Performed Ordering Provider: WHITNEY ANDERSON Report Released Date/Time: July 13, 2022 11:04 AM Reporting Lab: [facility] [address] Performing Lab: [facility] [address] C-REACTIVE PROTEIN 1.17 <5.00 July 13, 2022 11:00 AM [facility] PROTHROMBIN TIME/INR Specimen Type: PLASMA No comment entered. Ordering Provider: WHITNEY ANDERSON Report Released Date/Time: July 13, 2022 11:04 AM Reporting Lab: [facility] [address] Performing Lab: [facility] [address] .INR 0.9 0.8-1.1 .PT 11.1 9.4-12.5 July 13, 2022 11:00 AM [facility] SED RATE Specimen Type: BLOOD No comment entered. Ordering Provider: WHITNEY ANDERSON Report Released Date/Time: July 13, 2022 11:04 AM Reporting Lab: [facility] [address] Performing Lab: [facility] [address] SED RATE 10 5-15 July 13, 2022 11:00 AM [facility] CBC & DIFF Specimen Type: BLOOD Comment: Automated Differential Performed Ordering Provider: WHITNEY ANDERSON Report Released Date/Time: July 13, 2022 11:04 AM Reporting Lab: [facility] [address] Performing Lab: [facility] [address] WBC 8.82 4.0-11.0 RBC 3.89 L 4.6-6.2 [...] July 13, 2022 11:04 AM Reporting Lab: [facility] [address] Performing Lab: [facility] [address] CREATININE 1.0 0.7-1.2 UREA NITROGEN 16 8-26 [...] Source July 13, 2022 11:25 PM 8 [facility] July 13, 2022 11:18 PM 97.8 F 60 /min 169/90 mm[Hg] 20 /min 96 % 7 [facility] July 13, 2022 07:29 PM 97.9 F 64 /min 152/78 mm[Hg] 18 /min 93 % 0 [facility] July 13, 2022 06:00 PM 4 [facility] July 13, 2022 05:10 PM 8 [facility] Social History: Smoking Status (Most current) and Tobacco Use (All prior to encounter date) This section includes the most current, and the historical, smoking and tobacco- related health factors from the [place] facility where the Encounter took place. Current Smoking Status This section includes the most current smoking, or tobacco-related health factor, from the [place] facility where the Encounter took place. Date/Time Current Smoking Status Comment Facil ity May 10, 2022 09:15 AM VA-TOBACCO FORMER USER [facility] Tobacco Use History This section includes a history of the smoking, or tobacco-related health factors, that were collected on or before the date of the Encounter. The data comes from the [place] facility where the Encounter took place. Date/Time Smoking Status/Tobacco Use Comment F acility May 10, 2022 09:15 AM VA-TOBACCO QUIT 15 YRS OR MORE [facility] May 11, 2021 09:15 AM VA-TOBACCO FORMER USER [facility] May 11, 2021 09:15 AM [place]-TO[place]ACCO QUIT 15 YRS OR MORE [facility] [...] ALL of a patient's completed or amended [place] Advance and Rescinded Directives. The entries below indicate that a directive exists for the patient, but an actual copy is not included with this document. The data comes from all [facility]. Date Advance Directives Provider Source Mar 18, 2003 ADVANCE DIRECTIVE FARHAT MELGAR [facility] Radiology Reports: +/- 30 days [...] the Encounter. The data comes from all [place] treatment facilities. Date/Time Radiology Report Provider Source July 20, 2022 07:50 AM CHEST 1 VIEW: MARYJO WAGNER [id number] -1950 M Exm Date: JULY 20, 2022@07:50 Req Phys: MACKENZIE COTTER Pat Loc: 07-20-2022@08:26 Img Loc: MAIN X-RAY Service: PRIMARY CARE - MED OFFICE (Case [id number] COMPLETE) CHEST 1 VIEW (RAD Detailed) CPT:93853 Proc Modifiers : PORTABLE EXAM Reason for Study: see below. thanks. Clinical History: IS NOT under investigation for COVID-19 or is COVID-19 negative Please further evaluate for acute airspace disease given o2 requirement. Thanks. Responsible provider name and phone number to notify for critical findings if other than user placing the order and pager listed below: User placing orders pager: [phone] same LAST CREATININE 0.9 (07/19/22) Report Status: Verified Date Reported: JULY 20, 2022 Date Verified: JULY 20, 2022 Management Development Specialist E-Sig:/ES/JAMIE MIGUEL MD Report: EXAM: CHEST 1 VIEW HISTORY: see below. thanks. Reason for Study: see below. thanks. [place] IS NOT under investigation for COVID-19 or is COVID-19 negative Please further evaluate for acute airspace disease given o2 requirement. Thanks. Responsible provider name and phone number to notify for critical findings if other than user placing the order and pager listed below: User placing orders pager: [phone] same LAST CREATININE 0. COMPARISON: Chest CT [...] Primary Interpreting Staff: JAMIE MIGUEL MD, RADIOLOGIST (Management Development Specialist) /JAMIE [facility] July 18, 2022 12:59 PM ELBOW LEFT 2 VIEWS: MARYJO WAGNER [id number] -1950 M Exm Date: JULY 18, 2022@12:59 Req Phys: LEIF BALBUENA Loc: OR-PACU/07-18-2022@13:59 Img Loc: MAIN X-RAY Service: ZZSURGICAL SERVICE (Case [id number] COMPLETE) ELBOW LEFT 2 VIEWS (RAD Detailed) CPT:68708 Proc Modifiers : PORTABLE EXAM, OPERATING ROOM EXAM Reason for Study: post-op Clinical History: post-op Report Status: Verified Date Reported: JULY 18, 2022 Date Verified: JULY 18, 2022 Management Development Specialist E-Sig:/ES/JAKUB LEE MD Report: EXAM: ELBOW [...] Primary Interpreting Staff: JAKUB LEE MD, RADIOLOGIST (Management Development Specialist) /[facility] JAKUB LEE [facility] July 18, 2022 07:30 AM FLUORO UP TO 1 HR PHYSICIAN TIME: MARYJO WAGNER [id number] -1950 M Exm Date: JULY 18, 2022@07:30 Req Phys: LEIF BALBUENA Loc: OR-PACU/07-18-2022@13:14 Img Loc: MAIN X-RAY Service: PRIMARY CARE - MED OFFICE (Case [id number] COMPLETE) FLUORO UP TO 1 HR PHYSICIAN TIME (RAD Detailed) CPT:99844 Proc Modifiers : PORTABLE EXAM, OPERATING ROOM EXAM, LEFT Reason for Study: Left distal humerous ORIF Clinical History: OR 7 Pathologic distal humeral shaft fracture Responsible provider name and phone number to notify for critical findings if other than user placing the order and pager listed below: User placing orders pager: Henry BALBUENA [phone] LAST CREATININE 0.8 (07/17/22) Report Status: Electronically [...] 03:28 PM ABDOMINAL AORTOGRAM (P): MARYJO WAGNER [id number] -1950 M Exm Date: JULY 17, 2022@15:28 Req Phys: MALCOM LANGLEY Pat Loc: 07-17-2022@15:54 Img Loc: INTERVENTIONAL RADIOLOGY Service: PRIMARY CARE - MED OFFICE (Case [id number] COMPLETE) ANGIOGRAPHY EXTREMITY UNILAT S&I (ANI Detailed) CPT:26031 Reason for Study: codes (Case 528 COMPLETE) IR AORTOGRAPHY ABDOMINAL W/O RUNO(ANI Detailed) CPT:30655 (Case 529 COMPLETE) IR FOREIGN BODY REMOVAL INTRAVASC(ANI Detailed) CPT:03559 (Case 532 COMPLETE) IR NEEDLE/INTRACATH PLACEMENT EXT(ANI Detailed) CPT:37593 (Case 533 COMPLETE) IR PLACEMENT OCCLUSIVE DEVICE SAM(ANI Detailed) CPT:G0269 Clinical History: codes Report Status: Verified Date Reported: JULY 17, 2022 Date Verified: JULY 17, 2022 Management Development Specialist E-Sig:/ES/MALCOM LANGLEY MD Report: RADIOLOGIST: Malcom [...] angiogram and runoff. 12. Closure of right PROTECTIVE SIGNAL REPAIRER HELPER with Angio-Seal device. HISTORY: Metastatic renal cell [...] Sheath removed over guidewire and a 5 lebanese vascular sheath advanced over guidewire into the artery. An H1 catheter was advanced along with the guidewire into the thoracic arch and the left subclavian artery was selected. Catheter and the guidewire were advanced into the left brachial artery. The 5 Afghan sheath was exchanged for a 6 Afghan sheath that was advanced into the left [...] arteries. Sheath and catheters were removed and PROTECTIVE SIGNAL REPAIRER HELPER arteriotomy was closed using Angioseal. There is patent hemostasis. No bleeding or hematoma noted. Sterile dressing applied. 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 Primary Interpreting Staff: MALCOM LANGLEY MD, INTERVENTIONAL RADIOLOGIST (Management Development Specialist) /MALCOM HE [facility] July 17, 2022 07:30 AM RENAL ARTERY EMBOLIZATION (P): MARYJO WAGNER [id number] -1950 M Exm Date: JULY 17, 2022@07:30 Req Phys: WESTON VASQUEZ Pat Loc: 07-17-2022@15:46 Img Loc: INTERVENTIONAL RADIOLOGY Service: PRIMARY CARE - MED OFFICE (Case 130 COMPLETE) IR TRANSCATH EMBOLIZATION W/ANGIO(ANI Detailed) CPT:56254 Reason for Study: embolization of RCC mets to left humerus (Case 131 COMPLETE) IR ARTERIAL EMBOLIZATION OTHER TH(ANI Detailed) CPT:16087 (Case 132 COMPLETE) IR US GUIDANCE VASCULAR ACCESS (ANI Detailed) CPT:47554 Clinical History: IS NOT under investigation for [...] pager listed below: User placing orders pager: [phone] LAST CREATININE 1.0 (07/13/22) Report Status: Verified Date Reported: JULY 17, 2022 Date Verified: JULY 17, 2022 Management Development Specialist E-Sig:/ES/MALCOM LANGLEY MD Report: RADIOLOGIST: Malcom [...] angiogram and runoff. 12. Closure of right PROTECTIVE SIGNAL REPAIRER HELPER with Angio-Seal device. HISTORY: Metastatic renal cell [...] Sheath removed over guidewire and a 5 lebanese vascular sheath advanced over guidewire into the artery. An H1 catheter was advanced along with the guidewire into the thoracic arch and the left subclavian artery was selected. Catheter and the guidewire were advanced into the left brachial artery. The 5 Afghan sheath was exchanged for a 6 Afghan sheath that was advanced into the left [...] arteries. Sheath and catheters were removed and PROTECTIVE SIGNAL REPAIRER HELPER arteriotomy was closed using Angioseal. There is patent hemostasis. No bleeding or hematoma noted. Sterile dressing applied. 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 Primary Interpreting Staff: MALCOM LANGLEY MD, INTERVENTIONAL RADIOLOGIST (Management Development Specialist) /M[facility]COM HE [facility] July 14, 2022 06:44 AM HUMERUS LEFT MINIMUM 2 VIEWS: MARYJO WAGNER [id number] -1950 M Exm Date: JULY 14, 2022@06:44 Req Phys: WESTON VASQUEZ [facility] Loc: 07-14-2022@07:13 Img Loc: MAIN X-RAY Service: PRIMARY CARE - MED OFFICE (Case [id number] COMPLETE) HUMERUS LEFT MINIMUM 2 VIEWS (RAD Detailed) CPT:92940 Reason for Study: post reduction Clinical History: Report Status: Verified Date Reported: JULY 14, 2022 Date Verified: JULY 14, 2022 Management Development Specialist E-Sig: Report: HUMERUS LEFT MINIMUM 2 VIEWS HISTORY: post reduction COMPARISON: 07/13/2022 TECHNIQUE: 2 view(s) of the humerus, submitted to the [place] National Teleradiology Program (NTP) for interpretation. FINDINGS: [...] less likely. READING PHYSICIAN: Xavier Merrill MD -[id number] 07/14/2022 5:11 PDT [facility] National Teleradiology Program [phone] (For Medical Practitioner Use Only) Attention Patients / Veterans: If you have questions or concerns about these test results, please contact your ordering provider or primary care team. Primary Interpreting Staff: RADIOLOGY,OUTSIDE SERVICE, Staff Physician / RADIOLOGY,OUTSIDE SERVICE [facility] July 13, 2022 10:07 AM HUMERUS LEFT MINIMUM 2 VIEWS: MARYJO WAGNER [id number] -1950 M Ex Date: JULY 13, 2022@10:07 Req Phys: WHITNEY ANDERSON Pat Loc: [facility] EMERGENCY DEPT WALK-IN (Re Img Loc: MAIN X-RAY Service: Unknown (Case [id number] COMPLETE) HUMERUS LEFT MINIMUM 2 VIEWS (RAD Detailed) CPT:81640 Proc Modifiers : LEFT Reason for Study: [...] pager listed below: User placing orders pager: [phone] LAST CREATININE 0.8 (05/10/22) Report Status: Verified Date Reported: JULY 13, 2022 Date Verified: JULY 13, 2022 Management Development Specialist E-Sig:/SANGITA/ALBINA COWAN MD, FACR, CCD Report: [...] Staff: ALBINA COWAN MD, FACR, STAFF RADIOLOGIST (Management Development Specialist) /[facility] ALBINA COWAN [facility] July 13, 2022 10:07 AM ELBOW LEFT 3 OR MORE VIEWS: BERNARDMARYJO [id number] -1950 M Exm Date: JULY 13, 2022@10:07 Req Phys: WHITNEY ANDERSON Pat Loc: [facility] EMERGENCY DEPT WALK-IN (Re Img Loc: MAIN X-RAY Service: Unknown (Case [id number] COMPLETE) ELBOW LEFT 3 OR MORE VIEWS (RAD Detailed) CPT:79599 Proc Modifiers : LEFT Reason for Study: L arm pain Clinical History: [place] IS NOT under investigation for COVID-19 or is COVID-19 negative Atraumatic left upper extremity pain that is located midshaft humerus distally to the mid forearm. Clinical concern for dislocation versus fracture versus bone mets Responsible provider name and phone number to notify for critical findings if other than user placing the order and pager listed below: User placing orders pager: [phone] LAST CREATININE 0.8 (05/10/22) Report Status: Verified Date Reported: JULY 13, 2022 Date Verified: JULY 13, 2022 Management Development Specialist E-Sig:/SANGITA/ALBINA COWAN MD, FACR, CCD Report: [...] Staff: ALBINA COWAN MD, FACR, STAFF RADIOLOGIST (Management Development Specialist) /ALBINA NATHAN [facility] July 13, 2022 10:07 AM FOREARM LEFT 2 VIEWS: MARYJO WAGNER [id number] -1950 M Exm Date: JULY 13, 2022@10:07 Req Phys: MONICAWHITNEY MARIN Pat Loc: [facility] EMERGENCY DEPT WALK-IN (Re Img Loc: MAIN X-RAY Service: Unknown (Case [id number] COMPLETE) FOREARM LEFT 2 VIEWS (RAD Detailed) CPT:07563 Proc Modifiers : LEFT Reason for Study: L arm pain Clinical History: [place] IS NOT under investigation for COVID-19 or is COVID-19 negative Atraumatic left upper extremity pain that is located midshaft humerus distally to the mid forearm. Clinical concern for dislocation versus fracture versus bone mets Responsible provider name and phone number to notify for critical findings if other than user placing the order and pager listed below: User placing orders pager: [phone] LAST CREATININE 0.8 (05/10/22) Report Status: Verified Date Reported: JULY 13, 2022 Date Verified: JULY 13, 2022 Management Development Specialist E-Sig:/ES/ALBINA COWAN MD, FACR, CCD Report: EXAMINATION: [...] Staff: ALBINA COWAN MD, FACR, STAFF RADIOLOGIST (Management Development Specialist) /ALBINA NATHAN [facility] Pathology Reports: +/- [...] the Encounter. The data comes from all [place] treatment facilities. Date/Time Pathology Report Provider Source July 13, 2022 04:06 PM LR SURGICAL PATHOL OGY REPORT: LOCAL TITLE: LR SURGICAL PATHOLOGY REPORT STANDARD TITLE: PATHOLOGY REPORT DATE OF NOTE: JULY 21, 2022@14:37:27 ENTRY DATE: JULY 21, 2022@14:37:27 AUTHOR: JIAN SANDOVAL EXP COSIGNER: URGENCY: STATUS: COMPLETED $APHDR Reporting Lab: [facility] [CLIA# [id number]] [place] [address] - - - - - - - [...] PATHOLOGY & LABORATORY MED [facility] Signed July 21, 2022@14:37 Performing Laboratory: Surgical Pathology Report Performed By: [facility] [CLIA# [id number]] [place] [address] $FTR - - - - - - - - - - - - - - - - - - - - - - - - - - - - - - - - - - - - - - - - (End of report) JIAN SANDOVAL MD [facility] Date July 21, 2022 - - - - - - - - - - - - - - - - - - - - - - - - - - - - - - - - - - - - - - - - MARYJO WAGNER STANDARD FORM 515 ID:[id number] SEX:M :1950 AGE: 72 LOC:[facility] PATHOLOGY PRO FEE ADM:June DX:PATHOLOGIC FX LF HUMERUS PCP: Leif Balbuena MD /sangita/ JIAN SANDOVAL STAFF PATHOLOGIST, PATHOLOGY & LABORATORY MED [facility] Signed: 07/21/2022 14:37 JIAN SANDOVAL [facility]
--- OUTSIDE RECORDS SUMMARY | 2023-03-24 08:56 | XMS_ITS ---
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 of Vetera [facility] Address [address] [place] [address] Support Name Relationship Address Phone DOREEN WAGNER Next of Kin [id number] [place] [id number] DOREEN Emergency Contact [address] [place] [phone] Insurance Providers: All historical and current [...] Name Patient's Relationship to Policy [place] [employer] [facility] (WNR) MEDICARE ADVANTAGE [facility] (R) June 26, 2016 [id number] JOAN WAGNER KARSTEN PATIENT [employer] MCR (WNR) MEDICARE ADVANTAGE MCR (WNR) June 26, 2016 [id number] [phone] JOAN WAGNER KARSTEN PATIENT [employer] [facility] (WNR) MEDICARE ADVANTAGE [facility] (WNR) June 26, 2016 [id number] [phone] JOAN WAGNER PATIENT Selected Encounter This section includes the information on record at [place] for the Encounter. Date/Time Encounter Type Encounter Description Reason Pro vider Source July 13, 2022 06:02 PM Inpatient Visit DAILY HOSPITALIZATION DATA [facility] Encounter Template Text not used by [place] Plan of Treatment: Future Appointments (+ 6 months) and Future Tests (+/- 45 days) The Plan of Treatment section includes future care activities for the patient from all [place] treatmentfacilities. This section includes future appointments and future orders which are active, pending or scheduled. Future Appointments This section includes appointments that were scheduled to occur 6 months from the date of the Encounter, up to a maximum of 20 appointments. The data comes from all [facility]. Appointment Date/Time Appointment Type Appointme nt Facility Name Jul 28, 2022 10:45 AM [facility] Aug 13, 2022 06:13 PM AMBULATORY - MEDICINE [facility] Aug 23, 2022 09:30 AM AMBULATORY - SURGERY [facility] Aug 23, 2022 09:45 AM [facility] Aug 23, 2022 10:30 AM AMBULATORY - MEDICINE [facility] Aug 23, 2022 10:31 AM AMBULATORY - MEDICINE [facility] Sep 06, 2022 10:15 AM AMBULATORY - SURGERY [facility] Oct 25, 2022 07:00 AM [facility] NONE [facility] Oct 25, 2022 07:30 AM AMBULATORY - [...] of theEncounter. The data comes from all [facility]. Test Date/Time Test Type Test Details Facility Name Jun 12, 2022 12:00 AM Laboratory - Chemistry Order CBC & DIFF BLOOD ONCO SP ONCE [facility] Jun 12, 2022 12:00 AM Laboratory - Chemistry Order COMPREHENSIVE METABOLIC PANEL+MG PLASMA ONCO SP ONCE [facility] Jun 12, 2022 12:00 AM Laboratory - Chemistry Order TSH W/REFLEX TO FREE T4 PLASMA ONCO SP ONCE [facility] July 14, 2022 12:00 AM Laboratory - Blood Bank Order ABO/RH - LAB BLOOD [facility] July 14, 2022 02:05 PM Laboratory - Blood Bank Order TYPE & SCREEN - LAB BLOOD [facility] Aug 07, 2022 11:23 AM Laboratory - Chemistry Order DRUG SCREEN PANEL,URINE URINE ONCE [facility] Aug 23, 2022 10:47 AM Laboratory - Chemistry Order URINALYSIS URINE ER STAT [facility] Lab Results: +/- 30 days of the [...] July 19, 2022 05:00 PM Reporting Lab: [facility] [address] Performing Lab: [facility] [address] FINGERSTICK GLUCOSE 132 70-100 July 19, 2022 07:13 AM [facility] COMPREHENSIVE METABOLIC PANEL+MG Specimen Type: PLASMA No comment entered. Ordering Provider: MACKENZIE COTTER Report Released Date/Time: July 18, 2022 05:40 PM Reporting Lab: [facility] [address] Performing Lab: [facility] [address] CREATININE 0.9 0.7-1.2 UREA NITROGEN 24 8-26 [...] July 18, 2022 05:40 PM Reporting Lab: [facility] [address] Performing Lab: [facility] [address] IRON 28 L 65-175 TIBC,CALCULATE D 223 L 250-425 FERRITIN 73.7 21.8-274.7 IRON SATURATION 13 L 20-50 TRANSFERRIN 178 163-382 July 19, 2022 07:13 AM [facility] CBC Specimen Type: BLOOD No comment entered. Ordering Provider: MACKENZIE COTTER Report Released Date/Time: July 18, 2022 05:40 PM Reporting Lab: [facility] [address] Performing Lab: [facility] [address] WBC 7.73 4.0-11.0 RBC 2.42 L 4.6-6.2 [...] July 19, 2022 11:54 AM Reporting Lab: [facility] [address] Performing Lab: [facility] [address] FINGERSTICK GLUCOSE 137 70-100 July 18, 2022 10:51 PM [facility] FINGERSTICK GLUCOSE Specimen Type: BLOOD Comment: Save Result Nurse Notified Ordering Provider: MACKENZIE COTTER Report Released Date/Time: July 18, 2022 11:06 PM Reporting Lab: [facility] [address] Performing Lab: [facility] [address] FINGERSTICK GLUCOSE 163 70-100 July 17, 2022 06:51 AM [facility] BASIC METABOLIC PANEL+MG Specimen Type: PLASMA No comment entered. Ordering Provider: DANG VALLE Report Released Date/Time: July 16, 2022 09:37 AM Reporting Lab: [facility] [address] Performing Lab: [facility] [address] CREATININE 0.8 0.7-1.2 UREA NITROGEN 23 8-26 [...] July 16, 2022 09:37 AM Reporting Lab: [facility] [address] Performing Lab: [facility] [address] .INR 1.0 0.8-1.1 .PT 11.5 9.4-12.5 July 17, 2022 06:51 AM [facility] CBC Specimen Type: BLOOD No comment entered. Ordering Provider: DANG VALLE Report Released Date/Time: July 16, 2022 09:37 AM Reporting Lab: [facility] [address] Performing Lab: [facility] [address] WBC 6.05 4.0-11.0 RBC 3.77 L 4.6-6.2 [...] July 13, 2022 11:04 AM Reporting Lab: [facility] [address] Performing Lab: [facility] [address] COVID-19 (CEPHEID) Not Detected Not Detected INFLUENZA A (PCR) Not Detected Not Detected INFLUENZA B (PCR) Not Detected Not Detected RSV (PCR) Not Detected Not Detected July 13, 2022 11:00 AM [facility] C-REACTIVE PROTEIN Specimen Type: SERUM Comment: Automated Differential Performed Ordering Provider: WHITNEY ANDERSON Report Released Date/Time: July 13, 2022 11:04 AM Reporting Lab: [facility] [address] Performing Lab: [facility] [address] C-REACTIVE PROTEIN 1.17 <5.00 July 13, 2022 11:00 AM [facility] PROTHROMBIN TIME/INR Specimen Type: PLASMA No comment entered. Ordering Provider: WHITNEY ANDERSON Report Released Date/Time: July 13, 2022 11:04 AM Reporting Lab: [facility] [address] Performing Lab: [facility] [address] .INR 0.9 0.8-1.1 .PT 11.1 9.4-12.5 July 13, 2022 11:00 AM [facility] SED RATE Specimen Type: BLOOD No comment entered. Ordering Provider: WHITNEY ANDERSON Report Released Date/Time: July 13, 2022 11:04 AM Reporting Lab: [facility] [address] Performing Lab: [facility] [address] SED RATE 10 5-15 July 13, 2022 11:00 AM [facility] CBC & DIFF Specimen Type: BLOOD Comment: Automated Differential Performed Ordering Provider: WHITNEY ANDERSON Report Released Date/Time: July 13, 2022 11:04 AM Reporting Lab: [facility] [address] Performing Lab: [facility] [address] WBC 8.82 4.0-11.0 RBC 3.89 L 4.6-6.2 [...] July 13, 2022 11:04 AM Reporting Lab: [facility] [address] Performing Lab: [facility] [address] CREATININE 1.0 0.7-1.2 UREA NITROGEN 16 8-26 [...] Source July 13, 2022 11:25 PM 8 [place] [facility] July 13, 2022 11:18 PM 97.8 F 60 /min 169/90 mm[Hg] 20 /min 96 % 7 [place] [facility] July 13, 2022 07:29 PM 97.9 F 64 /min 152/78 mm[Hg] 18 /min 93 % 0 [facility] July 13, 2022 06:00 PM 4 [place] [facility] July 13, 2022 05:10 PM 8 [facility] Social History: Smoking Status (Most [...] [facility] May 11, 2021 09:15 AM [place]-TOBACCO QUIT 15 YRS OR MORE [facility] [...] comes from all [facility]. Date Advance Directives Provider Source Mar 18, 2003 [facility]VANCE FARHAT HERNANDEZ [facility] Radiology Reports: +/- 30 days of [...] 07:50 AM CHEST 1 VIEW: MARYJO WAGNER [id number] -1950 M Exm Date: JULY 20, 2022@07:50 Req Phys: MACKENZIE COTTER Pat Loc: 07-20-2022@08:26 Img Loc: MAIN X-RAY Service: PRIMARY CARE - MED OFFICE (Case [id number] COMPLETE) CHEST 1 VIEW (RAD Detailed) CPT:89600 Proc Modifiers : PORTABLE EXAM Reason for Study: see below. thanks. Clinical History: IS NOT under investigation for COVID-19 or is COVID-19 negative Please further evaluate for acute airspace disease given o2 requirement. Thanks. Responsible provider name and phone number to notify for critical findings if other than user placing the order and pager listed below: User placing orders pager: [phone] same LAST CREATININE 0.9 (07/19/22) Report Status: Verified Date Reported: JULY 20, 2022 Date Verified: JULY 20, 2022 Senior Customer Service Representative E-Sig:/ES/JAMIE MIGUEL MD Report: EXAM: CHEST 1 VIEW HISTORY: see below. thanks. Reason for Study: see below. thanks. [place] IS NOT under investigation for COVID-19 or is COVID-19 negative Please further evaluate for acute airspace disease given o2 requirement. Thanks. Responsible provider name and phone number to notify for critical findings if other than user placing the order and pager listed below: User placing orders pager: [phone] same LAST CREATININE 0. COMPARISON: Chest CT [...] Interpreting Staff: JAMIE MIGUEL MD, RADIOLOGIST (Senior Customer Service Representative) /JAMIE FRANCES [facility] July 18, 2022 12:59 PM ELBOW LEFT 2 VIEWS: MARYJO WAGNER [id number] -1950 M Exm Date: JULY 18, 2022@12:59 Req Phys: LEIF BALBUENA Loc: OR-PACU/07-18-2022@13:59 Img Loc: MAIN X-RAY Service: ZZSURGICAL SERVICE (Case [id number] COMPLETE) ELBOW LEFT 2 VIEWS (RAD Detailed) CPT:25665 Proc Modifiers : PORTABLE EXAM, OPERATING ROOM EXAM Reason for Study: post-op Clinical History: post-op Report Status: Verified Date Reported: JULY 18, 2022 Date Verified: JULY 18, 2022 Senior Customer Service Representative E-Sig:/ES/JAKUB LEE MD Report: EXAM: ELBOW LEFT [...] Interpreting Staff: JAKUB LEE MD, RADIOLOGIST (Senior Customer Service Representative) /JAKUB LUCERO [facility] July 18, 2022 07:30 AM FLUORO UP TO 1 HR PHYSICIAN TIME: MARYJO WAGNER [id number] -1950 M Exm Date: JULY 18, 2022@07:30 Req Phys: LEIF BALBUENA Loc: OR-PACU/07-18-2022@13:14 Img Loc: MAIN X-RAY Service: PRIMARY CARE - MED OFFICE (Case [id number] COMPLETE) FLUORO UP TO 1 HR PHYSICIAN TIME (RAD Detailed) CPT:84013 Proc Modifiers : PORTABLE EXAM, OPERATING ROOM EXAM, LEFT Reason for Study: Left distal humerous ORIF Clinical History: OR 7 Pathologic distal humeral shaft fracture Responsible provider name and phone number to notify for critical findings if other than user placing the order and pager listed below: User placing orders pager: Henry BALBUENA [phone] LAST CREATININE 0.8 (07/17/22) Report Status: Electronically Filed Date Reported: JULY 18, 2022 Report: Impression: Please [facility] the [facility]. Fluoro guidance was provided [...] 03:28 PM ABDOMINAL AORTOGRAM (P): MARYJO WAGNER [id number] -1950 M Exm Date: JULY 17, 2022@15:28 Req Phys: MALCMO LANG[facility] Loc: 07-17-2022@15:54 Img Loc: INTERVENTIONAL RADIOLOGY Service: PRIMARY CARE - MED OFFICE (Case [id number] COMPLETE) ANGIOGRAPHY EXTREMITY UNILAT S&I (ANI Detailed) CPT:69191 Reason for Study: codes (Case 528 COMPLETE) IR AORTOGRAPHY ABDOMINAL W/O RUNO(ANI Detailed) CPT:70801 (Case 529 COMPLETE) IR FOREIGN BODY REMOVAL INTRAVASC(ANI Detailed) CPT:29168 (Case 532 COMPLETE) IR NEEDLE/INTRACATH PLACEMENT EXT(ANI Detailed) CPT:50597 (Case 533 COMPLETE) IR PLACEMENT OCCLUSIVE DEVICE SAM(ANI Detailed) CPT:G0269 Clinical History: codes Report Status: Verified Date Reported: JULY 17, 2022 Date Verified: JULY 17, 2022 Senior Customer Service Representative E-Sig:/ES/MALCOM LANGLEY MD Report: RADIOLOGIST: Malcom Langley [...] angiogram and runoff. 12. Closure of right BUS DRIVER/MONITOR with Angio-Seal device. HISTORY: Metastatic renal cell [...] into the left brachial artery. The 5 [place] sheath was exchanged for a 6 [place] sheath that was advanced into the left [...] arteries. Sheath and catheters were removed and BUS DRIVER/MONITOR arteriotomy was closed using Angioseal. There is patent hemostasis. No bleeding or hematoma noted. Sterile dressing applied. 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 Primary Interpreting Staff: MALCOM LANGLEY MD, INTERVENTIONAL RADIOLOGIST (Senior Customer Service Representative) /MALCOM HE [facility] July 17, 2022 07:30 AM RENAL ARTERY EMBOLIZATION (P): MARYJO WAGNER [id number] -1950 M Exm Date: JULY 17, 2022@07:30 Req Phys: WESTON VASQUEZ Pat Loc: 07-17-2022@15:46 Img Loc: INTERVENTIONAL RADIOLOGY Service: PRIMARY CARE - MED OFFICE (Case [id number] COMPLETE) IR TRANSCATH EMBOLIZATION W/ANGIO(ANI Detailed) CPT:92995 Reason for Study: embolization of RCC mets to left humerus (Case 131 COMPLETE) IR ARTERIAL EMBOLIZATION OTHER TH(ANI Detailed) CPT:09075 (Case 132 COMPLETE) IR US GUIDANCE VASCULAR ACCESS (ANI Detailed) CPT:69417 Clinical History: [place] IS NOT under investigation for COVID-19 or [...] pager listed below: User placing orders pager: [phone] LAST CREATININE 1.0 (07/13/22) Report Status: Verified Date Reported: JULY 17, 2022 Date Verified: JULY 17, 2022 Senior Customer Service Representative E-Sig:/ES/MALCOM LANGLEY MD Report: RADIOLOGIST: Malcom Langley [...] angiogram and runoff. 12. Closure of right BUS DRIVER/MONITOR with Angio-Seal device. HISTORY: Metastatic renal cell [...] into the left brachial artery. The 5 [place] sheath was exchanged for a 6 [place] sheath that was advanced into the left [...] arteries. Sheath and catheters were removed and BUS DRIVER/MONITOR arteriotomy was closed using Angioseal. There is patent hemostasis. No bleeding or hematoma noted. Sterile dressing applied. 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 Primary Interpreting Staff: MALCOM LANGLEY MD, INTERVENTIONAL RADIOLOGIST (Senior Customer Service Representative) /MALCOM HE [facility] July 14, 2022 06:44 AM HUMERUS LEFT MINIMUM 2 VIEWS: MARYJO WAGNER [id number] -1950 M Exm Date: JULY 14, 2022@06:44 Req Phys: WESTON VASQUE[facility] Loc: 07-14-2022@07:13 Img Loc: MAIN X-RAY Service: PRIMARY CARE - MED OFFICE (Case [id number] COMPLETE) HUMERUS LEFT MINIMUM 2 VIEWS (RAD Detailed) CPT:62779 Reason for Study: post reduction Clinical History: Report Status: Verified Date Reported: JULY 14, 2022 Date Verified: JULY 14, 2022 Senior Customer Service Representative E-Sig: Report: HUMERUS LEFT MINIMUM 2 VIEWS HISTORY: post reduction COMPARISON: 07/13/2022 TECHNIQUE: 2 view(s) of the humerus, submitted to the [place] National Teleradiology Program (NTP) for interpretation. FINDINGS: [...] less likely. READING PHYSICIAN: Xavier Merrill MD -[id number] 07/14/2022 5:11 PDT [facility] National Teleradiology Program [phone] (For Medical Practitioner Use Only) Attention Patients / Veterans: If you have questions or concerns about these test results, please contact your ordering provider or primary care team. Primary Interpreting Staff: RADIOLOGY,OUTSIDE SERVICE, Staff Physician / RADIOLOGY,OUTSIDE SERVICE [facility] July 13, 2022 10:07 AM HUMERUS LEFT MINIMUM 2 VIEWS: MARYJO WAGNER [id number] -1950 M Ex Date: JULY 13, 2022@10:07 Req Phys: WHITNEY ANDERSON Pat Loc: [facility] EMERGENCY DEPT WALK-IN (Re Img Loc: MAIN X-RAY Service: Unknown (Case [id number] COMPLETE) HUMERUS LEFT MINIMUM 2 VIEWS (RAD Detailed) CPT:97678 Proc Modifiers : LEFT Reason for Study: [...] pager listed below: User placing orders pager: [phone] LAST CREATININE 0.8 (05/10/22) Report Status: Verified Date Reported: JULY 13, 2022 Date Verified: JULY 13, 2022 Senior Customer Service Representative E-Sig:/ES/ALBINA COWAN MD, FACR, CCD Report: EXAMINATION: [...] ALBINA COWAN MD, FACR, STAFF RADIOLOGIST (Senior Customer Service Representative) /BSF ALBINA COWAN [facility] July 13, 2022 10:07 AM ELBOW LEFT 3 OR MORE VIEWS: MARYJO WAGNER [id number] -1950 M Exm Date: JULY 13, 2022@10:07 Req Phys: WHITNEY ANDERSON Pat Loc: [facility] EMERGENCY DEPT WALK-IN ( Img Loc: MAIN X-RAY Service: Unknown (Case [id number] COMPLETE) ELBOW LEFT 3 OR MORE VIEWS (RAD Detailed) CPT:89841 Proc Modifiers : LEFT Reason for Study: L arm pain Clinical History: [place] IS NOT under investigation for COVID-19 or is COVID-19 negative Atraumatic left upper extremity pain that is located midshaft humerus distally to the mid forearm. Clinical concern for dislocation versus fracture versus bone mets Responsible provider name and phone number to notify for critical findings if other than user placing the order and pager listed below: User placing orders pager: [phone] LAST CREATININE 0.8 (05/10/22) Report Status: Verified Date Reported: JULY 13, 2022 Date Verified: JULY 13, 2022 Senior Customer Service Representative E-Sig:/SANGITA/ALBINA COWAN MD, FACR, CCD Report: EXAMINATION: [...] ALBINA COWAN MD, FACR, STAFF RADIOLOGIST (Senior Customer Service Representative) /ALBINA NATHAN [facility] July 13, 2022 10:07 AM FOREARM LEFT 2 VIEWS: MARYJO WAGNER [id number] -1950 M Exm Date: JULY 13, 2022@10:07 Req Phys: MONICAWHITNEY MARIN Pat Loc: [facility] EMERGENCY DEPT WALK-IN ( Img Loc: MAIN X-RAY Service: Unknown (Case [id number] COMPLETE) FOREARM LEFT 2 VIEWS (RAD Detailed) CPT:03969 Proc Modifiers : LEFT Reason for Study: [...] pager listed below: User placing orders pager: [phone] LAST CREATININE 0.8 (05/10/22) Report Status: Verified Date Reported: JULY 13, 2022 Date Verified: JULY 13, 2022 Senior Customer Service Representative E-Sig:/ES/ALBINA COWAN MD, FACR, [facility] Report: EXAMINATION: FOREARM LEFT 2 [...] ALBINA COWAN MD, FACR, STAFF RADIOLOGIST (Senior Customer Service Representative) /ALBINA NATHAN [facility] Pathology Reports: +/- [...] comes from all [place] treatment facilities. Date/Time Pathology Report Provider Source July 13, 2022 04:06 PM LR SURGICAL PATHOL OGY REPORT: LOCAL TITLE: LR SURGICAL PATHOLOGY REPORT STANDARD TITLE: PATHOLOGY REPORT DATE OF NOTE: JULY 21, 2022@14:37:27 ENTRY DATE: JULY 21, 2022@14:37:27 AUTHOR: JIAN SANDOVAL EXP COSIGNER: URGENCY: STATUS: COMPLETED $APHDR Reporting Lab: [facility] [CLIA# [id number]] [place] [address] - - - - - - - [...] SANDOVAL STAFF PATHOLOGIST, PATHOLOGY & LABORATORY [facility] Signed July 21, 2022@14:37 Performing Laboratory: Surgical Pathology Report Performed By: [facility] [CLIA# [id number]] [place] [address] $FTR - - - - - - - - - - - - - - - - - - - - - - - - - - - - - - - - - - - - - - - - (End of report) JIAN SANDOVAL MD rust Date July 21, 2022 - - - - - - - - - - - - - - - - - - - - - - - - - - - - - - - - - - - - - - - - MARYJO WAGNER STANDARD FORM 515 ID:[id number] SEX:M :1950 AGE: 72 LOC:[facility] PATHOLOGY PRO FEE ADM:June DX:PATHOLOGIC FX LF HUMERUS PCP: Leif Balbuena MD /sangita/ JIAN SANDOVAL STAFF PATHOLOGIST, PATHOLOGY & LABORATORY [facility] Signed: 07/21/2022 14:37 JIAN SANDOVAL [facility]
--- OUTSIDE RECORDS SUMMARY | 2023-03-24 08:57 | XMS_ITS ---
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 (WNR) MEDICARE ADVANTAGE [facility] (R) June 26, 2016 [id number] JOAN WAGNER KARSTEN PATIENT [employer] MCR (WNR) MEDICARE ADVANTAGE [facility] (WNR) June 26, 2016 [id number] [phone] JOAN WAGNER KARSTEN PATIENT [employer] MCR (WNR) MEDICARE ADVANTAGE [facility] (WNR) June 26, 2016 [id number] JOAN WAGNER PATIENT Selected Encounter This section includes the information on record at [place] for the Encounter. Date/Time Encounter Type Encounter Description Reason Pro vider Source July 13, 2022 10:03 PM Inpatient Visit DAILY HOSPITALIZATION DATA IHE Encounter Template Text not used by [place] Plan of Treatment: Future Appointments (+ 6 [...] AM AMBULATORY - MEDICINE [facility] Aug 13, 2022 06:13 PM AMBULATORY - MEDICINE [facility] Aug 23, 2022 09:30 AM AMBULATORY - SURGERY [facility] Aug 23, 2022 09:45 [facility] Aug 23, 2022 10:30 AM AMBULATORY - MEDICINE [facility] Aug 23, 2022 10:31 AM AMBULATORY - MEDICINE [facility] Sep 06, 2022 10:15 AM AMBULATORY - SURGERY [facility] Oct 25, 2022 07:00 AM [facility] Oct 25, 2022 07:30 [...] CBC & DIFF BLOOD ONCO SP ONCE [facility] Jun 12, 2022 12:00 AM Laboratory - Chemistry Order COMPREHENSIVE METABOLIC PANEL+MG PLASMA ONCO SP [facility] Jun 12, 2022 12:00 AM Laboratory - Chemistry Order TSH W/REFLEX TO FREE T4 PLASMA ONCO SP ONCE [facility] July 14, 2022 12:00 AM Laboratory - Blood Bank Order ABO/RH - LAB BLOOD [facility] July 14, 2022 02:05 PM Laboratory - Blood Bank Order TYPE & SCREEN - LAB BLOOD [facility] Aug 07, 2022 11:23 AM Laboratory - Chemistry Order DRUG SCREEN PANEL,URINE URINE [facility] Aug 23, 2022 10:47 AM Laboratory - Chemistry Order URINALYSIS URINE ER STAT [facility] Lab Results: +/- 30 days of the encounter This section includes the Chemistry and Hematology Lab Results on record with MI for the patient. Radiology Reports and Pathology Reports are provided separately, in subsequent sections. Lab Results This section contains the Chemistry/Hematology Results that were resulted 30 days before or 30 daysafter the date of the Encounter. Date/Time Source Result Type Result - Unit Interpretation Reference Range Comment July 19, 2022 04:40 PM [facility] FINGERSTICK GLUCOSE Specimen Type: BLOOD Comment: Save Result Nurse Notified Ordering Provider: MACKENZIE COTTER Report Released Date/Time: July 19, 2022 05:00 PM Reporting Lab: [facility] [address] Performing Lab: [facility] [address] FINGERSTICK GLUCOSE 132 70-100 July 19, 2022 07:13 AM [facility] COMPREHENSIVE METABOLIC PANEL+MG Specimen Type: PLASMA No comment entered. Ordering Provider: MACKENZIE COTTER Report Released Date/Time: July 18, 2022 05:40 PM Reporting Lab: [facility] [address] Performing Lab: [facility] [address] CREATININE 0.9 0.7-1.2 UREA NITROGEN 24 8-26 [...] See_Commen t July 19, 2022 07:13 AM [facility] IRON GROUP Specimen Type: SERUM No comment entered. Ordering Provider: MACKENZIE COTTER Report Released Date/Time: July 18, 2022 05:40 PM Reporting Lab: [facility] [address] Performing Lab: [facility] [address] IRON 28 L 65-175 TIBC,CALCULATE D 223 L 250-425 FERRITIN 73.7 21.8-274.7 IRON SATURATION 13 L 20-50 TRANSFERRIN 178 163-382 July 19, 2022 07:13 AM [facility] CBC Specimen Type: BLOOD No comment entered. Ordering Provider: MACKENZIE COTTER Report Released Date/Time: July 18, 2022 05:40 PM Reporting Lab: [facility] [address] Performing Lab: [facility] [address] WBC 7.73 4.0-11.0 RBC 2.42 L 4.6-6.2 HGB 8.2 L 13.5-17.9 HCT 23.8 L 41-54 MCV 98.3 80-100 MCH 33.9 H 27-33 MCHC 34.5 32.0-37.5 PLT 155 150-400 MPV 9.6 7.4-10.4 RDW 13.5 11.5-14.5 July 19, 2022 05:44 AM [facility] FINGERSTICK GLUCOSE Specimen Type: BLOOD Comment: Save Result Nurse Notified Ordering Provider: MACKENZIE COTTER Report Released Date/Time: July 19, 2022 11:54 AM Reporting Lab: [facility] [address] Performing Lab: [facility] [address] FINGERSTICK GLUCOSE 137 70-100 July 18, 2022 10:51 PM [facility] FINGERSTICK GLUCOSE Specimen Type: BLOOD Comment: Save Result Nurse Notified Ordering Provider: MACKENZIE COTTER Report Released Date/Time: July 18, 2022 11:06 PM Reporting Lab: [facility] [address] Performing Lab: [facility] [address] FINGERSTICK GLUCOSE 163 70-100 July 17, 2022 06:51 AM [facility] BASIC METABOLIC PANEL+MG Specimen Type: PLASMA No comment entered. Ordering Provider: DANG VALLE Report Released Date/Time: July 16, 2022 09:37 AM Reporting Lab: [facility] [address] Performing Lab: [facility] [address] CREATININE 0.8 0.7-1.2 UREA NITROGEN 23 8-26 GLUCOSE 107 H 70-100 SODIUM 139 136-145 POTASSIUM 3.9 3.5-5.1 CHLORIDE 106 98-107 CO2 28 22-29 CALCIUM 9.1 8.4-10.2 MAGNESIUM 1.9 1.6-2.6 ANION GAP 5 5-15 .CREAT EGFR(CKD-EPI) >90 See_Commen t July 17, 2022 06:51 AM [facility] PROTHROMBIN TIME/INR Specimen Type: PLASMA No comment entered. Ordering Provider: DANG VALLE R Report Released Date/Time: July 16, 2022 09:37 AM Reporting Lab: [facility] [address] Performing Lab: [facility] [address] .INR 1.0 0.8-1.1 .PT 11.5 9.4-12.5 July 17, 2022 06:51 AM [facility] CBC Specimen Type: BLOOD No comment entered. Ordering Provider: DANG VALLE R Report Released Date/Time: July 16, 2022 09:37 AM Reporting Lab: [facility] [address] Performing Lab: [facility] [address] WBC 6.05 4.0-11.0 RBC 3.77 L 4.6-6.2 HGB 12.7 L 13.5-17.9 HCT 36.0 L 41-54 MCV 95.5 80-100 MCH 33.7 H 27-33 MCHC 35.3 32.0-37.5 PLT 179 150-400 MPV 9.4 7.4-10.4 RDW 13.2 11.5-14.5 July 13, 2022 11:22 AM [facility] COVID-19 AND FLU/RSV DIAG PANEL(CEPHEID) Specimen Typ e: NASOPHARYNGEAL Comment: Cepheid GeneXpert (618) Ordering Provider: WHITNEY ANDERSON Report Released Date/Time: July 13, 2022 11:04 AM Reporting Lab: [facility] [address] Performing Lab: [facility] [address] COVID-19 (CEPHEID) Not Detected Not Detected INFLUENZA A (PCR) Not Detected Not Detected INFLUENZA B (PCR) Not Detected Not Detected RSV (PCR) Not Detected Not Detected July 13, 2022 11:00 AM [facility] C-REACTIVE PROTEIN Specimen Type: SERUM Comment: Automated Differential Performed Ordering Provider: WHITNEY ANDERSON Report Released Date/Time: July 13, 2022 11:04 AM Reporting Lab: [facility] [address] Performing Lab: [facility] [address] C-REACTIVE PROTEIN 1.17 <5.00 July 13, 2022 11:00 AM [facility] PROTHROMBIN TIME/INR Specimen Type: PLASMA No comment entered. Ordering Provider: WHITNEY ANDERSON Report Released Date/Time: July 13, 2022 11:04 AM Reporting Lab: [facility] [address] Performing Lab: [facility] [address] .INR 0.9 0.8-1.1 .PT 11.1 9.4-12.5 July 13, 2022 11:00 AM [facility] SED RATE Specimen Type: BLOOD No comment entered. Ordering Provider: WHITNEY ANDERSON Report Released Date/Time: July 13, 2022 11:04 AM Reporting Lab: [facility] [address] Performing Lab: [facility] [address] SED RATE 10 5-15 July 13, 2022 11:00 AM [facility] CBC & DIFF Specimen Type: BLOOD Comment: Automated Differential Performed Ordering Provider: WHITNEY ANDERSON Report Released Date/Time: July 13, 2022 11:04 AM Reporting Lab: [facility] [address] Performing Lab: [facility] [address] WBC 8.82 4.0-11.0 RBC 3.89 L 4.6-6.2 [...] 0.03 0-0.1 July 13, 2022 11:00 AM [facility] COMPREHENSIVE METABOLIC PANEL+MG Specimen Type: PLASMA Comment: Automated Differential Performed Ordering Provider: WHITNEY ANDERSON Report Released Date/Time: July 13, 2022 11:04 AM Reporting Lab: [facility] [address] Performing Lab: [facility] [address] CREATININE 1.0 0.7-1.2 UREA NITROGEN 16 8-26 [...] Source July 13, 2022 11:[address] [facility] July 13, 2022 11:18 PM 97.8 F 60 /min 169/90 mm[Hg] 20 /min 96 % 7 [facility] July 13, 2022 07:29 PM 97.9 F 64 /min 152/78 mm[Hg] 18 /min 93 % 0 [facility] July 13, 2022 06:[address] [facility] July 13, 2022 05:[address] [facility] Social History: Smoking Status (Most current) and Tobacco Use (All prior to encounter date) This section includes the most current, and the historical, smoking and tobacco- related health factors from the [place] facility where the Encounter took place. Current Smoking Status This section includes the most current smoking, or tobacco-related health factor, from the [place] facility where the Encounter took place. Date/Time Current Smoking Status Comment Facil ity May 10, 2022 09:15 AM VA-TOBACCO FORMER USER [facility] Tobacco Use History This section includes a history of the smoking, or tobacco-related health factors, that were collected on or before the date of the Encounter. The data comes from the [place] facility where the Encounter took place. Date/Time Smoking Status/Tobacco Use Comment F acility May 10, 2022 09:15 AM VA-TOBACCO QUIT 15 YRS OR MORE [facility] May 11, 2021 09:15 AM VA-TOBACCO FORMER USER [facility] May 11, 2021 09:15 AM [place]-TOBACCO QUIT 15 YRS OR MORE [facility] [...] ALL of a patient's completed or amended [place] Advance and Rescinded Directives. The entries below indicate that a directive exists for the patient, but an actual copy is not included with this document. The data comes from all [facility]. Date Advance Directives Provider Source Mar 18, 2003 ADVANCE DIRECTIVE FARHAT MELGAR [facility] Radiology Reports: +/- 30 days [...] the Encounter. The data comes from all [place] treatment facilities. Date/Time Radiology Report Provider Source July 20, 2022 07:50 AM CHEST 1 VIEW: MARYJO WAGNER [id number] -1950 M Exm Date: JULY 20, 2022@07:50 Req Phys: MACKENZIE COTTER Pat Loc: 07-20-2022@08:26 Img Loc: MAIN X-RAY Service: PRIMARY CARE - MED OFFICE (Case [id number] COMPLETE) CHEST 1 VIEW (RAD Detailed) CPT:57383 Proc Modifiers : PORTABLE EXAM Reason for Study: see below. thanks. Clinical History: IS NOT under investigation for COVID-19 or is COVID-19 negative Please further evaluate for acute airspace disease given o2 requirement. Thanks. Responsible provider name and phone number to notify for critical findings if other than user placing the order and pager listed below: User placing orders pager: [phone] same LAST CREATININE 0.9 (07/19/22) Report Status: Verified Date Reported: JULY 20, 2022 Date Verified: JULY 20, 2022 Curator Of Manuscripts E-Sig:/ES/JAMIE MIGUEL MD Report: EXAM: CHEST 1 VIEW HISTORY: see below. thanks. Reason for Study: see below. thanks. [facility] IS NOT under investigation for COVID-19 or is COVID-19 negative Please further evaluate for acute airspace disease given o2 requirement. Thanks. Responsible provider name and phone number to notify for critical findings if other than user placing the order and pager listed below: User placing orders pager: [phone] same LAST CREATININE 0. COMPARISON: Chest CT [...] Primary Interpreting Staff: JAMIE MIGUEL MD, RADIOLOGIST (Curator Of Manuscripts) /JAMIE FRANCES [facility] July 18, 2022 12:59 PM ELBOW LEFT 2 VIEWS: MARYJO WAGNER [id number] -1950 M Exm Date: JULY 18, 2022@12:59 Req Phys: LEIF BALBUENA Loc: OR-PACU/07-18-2022@13:59 Img Loc: MAIN X-RAY Service: ZZSURGICAL SERVICE (Case [id number] COMPLETE) ELBOW LEFT 2 VIEWS (RAD Detailed) CPT:44409 Proc Modifiers : PORTABLE EXAM, OPERATING ROOM EXAM Reason for Study: post-op Clinical History: post-op Report Status: Verified Date Reported: JULY 18, 2022 Date Verified: JULY 18, 2022 Curator Of Manuscripts E-Sig:/ES/JAKUB LEE MD Report: EXAM: ELBOW LEFT [...] Primary Interpreting Staff: JAKUB LEE MD, RADIOLOGIST (Curator Of Manuscripts) /[facility] JAKUB LEE [facility] July 18, 2022 07:30 AM FLUORO UP TO 1 HR PHYSICIAN TIME: MARYJO WAGNER [id number] -1950 M Exm Date: JULY 18, 2022@07:30 Req Phys: LEIF BALBUENA Loc: OR-PACU/07-18-2022@13:14 Img Loc: MAIN X-RAY Service: PRIMARY CARE - MED OFFICE (Case [id number] COMPLETE) FLUORO UP TO 1 HR PHYSICIAN TIME (RAD Detailed) CPT:38315 Proc Modifiers : PORTABLE EXAM, OPERATING ROOM EXAM, LEFT Reason for Study: Left distal humerous ORIF Clinical History: OR 7 Pathologic distal humeral shaft fracture Responsible provider name and phone number to notify for critical findings if other than user placing the order and pager listed below: User placing orders pager: Henry BALBUENA [phone] LAST CREATININE 0.8 (07/17/22) Report Status: Electronically Filed Date Reported: JULY 18, 2022 Report: Impression: Please see the full report for this procedure in CPRS patient progress notes. Fluoro guidance was provided during this procedure, but the study was not reviewed or verified by a [facility] radiologist. The radiation exposure dose has been recorded in the patient's chart. If you are unable to view this data, please contact the Imaging Department. VERIFIED BY: / *ELECTRONICALLY FILED* [facility] July 17, 2022 03:28 PM ABDOMINAL AORTOGRAM (P): MARYJO WAGNER [id number] -1950 M Exm Date: JULY 17, 2022@15:28 Req Phys: MALCOM LANGLEY Pat Loc: 07-17-2022@15:54 Img Loc: INTERVENTIONAL RADIOLOGY Service: PRIMARY CARE - MED OFFICE (Case [id number] COMPLETE) ANGIOGRAPHY EXTREMITY UNILAT S&I (ANI Detailed) CPT:48981 Reason for Study: codes (Case 528 COMPLETE) IR AORTOGRAPHY ABDOMINAL W/O RUNO(ANI Detailed) CPT:84518 (Case 529 COMPLETE) IR FOREIGN BODY REMOVAL INTRAVASC(ANI Detailed) CPT:70659 (Case 532 COMPLETE) IR NEEDLE/INTRACATH PLACEMENT EXT(ANI Detailed) CPT:41260 (Case 533 COMPLETE) IR PLACEMENT OCCLUSIVE DEVICE SAM(ANI Detailed) CPT:G0269 Clinical History: codes Report Status: Verified Date Reported: JULY 17, 2022 Date Verified: JULY 17, 2022 Curator Of Manuscripts E-Sig:/ES/MALCOM LANGLEY MD Report: RADIOLOGIST: Malcom Langley [...] angiogram and runoff. 12. 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 HISTORY: Metastatic renal cell [...] Sheath removed over guidewire and a 5 haitian vascular sheath advanced over guidewire into the artery. An H1 catheter was advanced along with the guidewire into the thoracic arch and the left subclavian artery was selected. Catheter and the guidewire were advanced into the left brachial artery. The 5 Rwandan sheath was exchanged for a 6 Rwandan sheath that was advanced into the left [...] arteries. Sheath and catheters were removed and WESTERN PHILOSOPHY PROFESSOR arteriotomy was closed using Angioseal. There is patent hemostasis. No bleeding or hematoma noted. Sterile dressing applied. 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 Primary Interpreting Staff: MALCOM LANGLEY MD, INTERVENTIONAL RADIOLOGIST (Curator Of Manuscripts) /MALCOM EH [facility] July 17, 2022 07:30 AM RENAL ARTERY EMBOLIZATION (P): MARYJO WAGNER [id number] -1950 M Exm Date: JULY 17, 2022@07:30 Req Phys: WESTON VASQUEZ Pat Loc: 07-17-2022@15:46 Img Loc: INTERVENTIONAL RADIOLOGY Service: PRIMARY CARE - MED OFFICE (Case 130 COMPLETE) IR TRANSCATH EMBOLIZATION W/ANGIO(ANI Detailed) CPT:51351 Reason for Study: embolization of RCC mets to left humerus (Case 131 COMPLETE) IR ARTERIAL EMBOLIZATION OTHER TH(ANI Detailed) CPT:59021 (Case 132 COMPLETE) IR US GUIDANCE VASCULAR ACCESS (ANI Detailed) CPT:40995 Clinical History: IS NOT under investigation for [...] pager listed below: User placing orders pager: [phone] LAST CREATININE 1.0 (07/13/22) Report Status: Verified Date Reported: JULY 17, 2022 Date Verified: JULY 17, 2022 Curator Of Manuscripts E-Sig:/ES/MALCOM LANGLEY MD Report: RADIOLOGIST: Malcom Langley [...] angiogram and runoff. 12. 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 HISTORY: Metastatic renal cell [...] Sheath removed over guidewire and a 5 haitian vascular sheath advanced over guidewire into the artery. An H1 catheter was advanced along with the guidewire into the thoracic arch and the left subclavian artery was selected. Catheter and the guidewire were advanced into the left brachial artery. The 5 Rwandan sheath was exchanged for a 6 Rwandan sheath that was advanced into the left [...] arteries. Sheath and catheters were removed and WESTERN PHILOSOPHY PROFESSOR arteriotomy was closed using Angioseal. There is patent hemostasis. No bleeding or hematoma noted. Sterile dressing applied. 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 Primary Interpreting Staff: MALCOM LANGLEY MD, INTERVENTIONAL RADIOLOGIST (Curator Of Manuscripts) /MALCOM HE [facility] July 14, 2022 06:44 AM HUMERUS LEFT MINIMUM 2 VIEWS: MARYJO WAGNER [id number] -1950 M Exm Date: JULY 14, 2022@06:44 Req Phys: WESTON VASQUEZ [facility] Loc: 07-14-2022@07:13 Img Loc: MAIN X-RAY Service: PRIMARY CARE - MED OFFICE (Case [id number] COMPLETE) HUMERUS LEFT MINIMUM 2 VIEWS (RAD Detailed) CPT:45948 Reason for Study: post reduction Clinical History: Report Status: Verified Date Reported: JULY 14, 2022 Date Verified: JULY 14, 2022 Curator Of Manuscripts E-Sig: Report: HUMERUS LEFT MINIMUM 2 VIEWS HISTORY: post reduction COMPARISON: 07/13/2022 TECHNIQUE: 2 view(s) of the humerus, submitted to the [place] National Teleradiology Program (NTP) for interpretation. FINDINGS: [...] less likely. READING PHYSICIAN: Xavier Merrill MD -[id number] 07/14/2022 5:11 PDT [facility] National Teleradiology Program [phone] (For Medical Practitioner Use Only) Attention Patients / Veterans: If you have questions or concerns about these test results, please contact your ordering provider or primary care team. Primary Interpreting Staff: RADIOLOGY,OUTSIDE SERVICE, Staff Physician / RADIOLOGY,OUTSIDE SERVICE [facility] July 13, 2022 10:07 AM HUMERUS LEFT MINIMUM 2 VIEWS: MARYJO WAGNER [id number] -1950 M Ex Date: JULY 13, 2022@10:07 Req Phys: WHITNEY ANDERSON Pat Loc: [facility] EMERGENCY DEPT WALK-IN (Re Img Loc: MAIN X-RAY Service: Unknown (Case [id number] COMPLETE) HUMERUS LEFT MINIMUM 2 VIEWS (RAD Detailed) CPT:41304 Proc Modifiers : LEFT Reason for Study: [...] pager listed below: User placing orders pager: [phone] LAST CREATININE 0.8 (05/10/22) Report Status: Verified Date Reported: JULY 13, 2022 Date Verified: JULY 13, 2022 Curator Of Manuscripts E-Sig:/SANGITA/ALBINA COWAN MD, FACR, CCD Report: EXAMINATION: [...] Staff: ALBINA COWAN MD, FACR, STAFF RADIOLOGIST (Curator Of Manuscripts) /BSF ALBINA COWAN [facility] July 13, 2022 10:07 AM ELBOW LEFT 3 OR MORE VIEWS: BERNARDMARYJO [id number] -1950 M Exm Date: JULY 13, 2022@10:07 Req Phys: WHITNEY ANDERSON Pat Loc: [facility] EMERGENCY DEPT WALK-IN (Re Img Loc: MAIN X-RAY Service: Unknown (Case [id number] COMPLETE) ELBOW LEFT 3 OR MORE VIEWS (RAD Detailed) CPT:35016 Proc Modifiers : LEFT Reason for Study: L arm pain Clinical History: [facility] IS NOT under investigation for COVID-19 or is COVID-19 negative Atraumatic left upper extremity pain that is located midshaft humerus distally to the mid forearm. Clinical concern for dislocation versus fracture versus bone mets Responsible provider name and phone number to notify for critical findings if other than user placing the order and pager listed below: User placing orders pager: [phone] LAST CREATININE 0.8 (05/10/22) Report Status: Verified Date Reported: JULY 13, 2022 Date Verified: JULY 13, 2022 Curator Of Manuscripts E-Sig:/SANGITA/ALBINA COWAN MD, FACR, CCD Report: EXAMINATION: [...] Staff: ALBINA COWAN MD, FACR, STAFF RADIOLOGIST (Curator Of Manuscripts) /ALBINA NATHAN [facility] July 13, 2022 10:07 AM FOREARM LEFT 2 VIEWS: MARYJO WAGNER [id number] -1950 M Exm Date: JULY 13, 2022@10:07 Req Phys: MONICAWHITNEY MARIN Pat Loc: [facility] EMERGENCY DEPT WALK-IN (Re Img Loc: MAIN X-RAY Service: Unknown (Case [id number] COMPLETE) FOREARM LEFT 2 VIEWS (RAD Detailed) CPT:14959 Proc Modifiers : LEFT Reason for Study: L arm pain Clinical History: [facility] IS NOT under investigation for COVID-19 or is COVID-19 negative Atraumatic left upper extremity pain that is located midshaft humerus distally to the mid forearm. Clinical concern for dislocation versus fracture versus bone mets Responsible provider name and phone number to notify for critical findings if other than user placing the order and pager listed below: User placing orders pager: [phone] LAST CREATININE 0.8 (05/10/22) Report Status: Verified Date Reported: JULY 13, 2022 Date Verified: JULY 13, 2022 Curator Of Manuscripts E-Sig:/ES/ALBINA COWAN MD, FACR, CCD Report: EXAMINATION: [...] Staff: ALBINA COWAN MD, FACR, STAFF RADIOLOGIST (Curator Of Manuscripts) /ALBINA NATHAN [facility] Pathology Reports: +/- 30 days [...] the Encounter. The data comes from all [place] treatment facilities. Date/Time Pathology Report Provider Source July 13, 2022 04:06 PM LR SURGICAL PATHOL OGY REPORT: LOCAL TITLE: LR SURGICAL PATHOLOGY REPORT STANDARD TITLE: PATHOLOGY REPORT DATE OF NOTE: JULY 21, 2022@14:37:27 ENTRY DATE: JULY 21, 2022@14:37:27 AUTHOR: JIAN SANDOVAL EXP COSIGNER: URGENCY: STATUS: COMPLETED $APHDR Reporting Lab: [facility] [CLIA# [id number]] [place] [address] - - - - - - - [...] SANDOVAL STAFF PATHOLOGIST, PATHOLOGY & LABORATORY [facility] Signed July 21, 2022@14:37 Performing Laboratory: Surgical Pathology Report Performed By: [facility] [CLIA# [id number]] [place] [address] $FTR - - - - - - - - - - - - - - - - - - - - - - - - - - - - - - - - - - - - - - - - (End of report) JIAN SANDOVAL MD [facility] Date July 21, 2022 - - - - - - - - - - - - - - - - - - - - - - - - - - - - - - - - - - - - - - - - MARYJO WAGNER STANDARD FORM 515 ID:[id number] SEX:M :1950 AGE: 72 LOC:[facility] PATHOLOGY PRO FEE ADM:June DX:PATHOLOGIC FX LF HUMERUS PCP: Leif Balbuena MD /sangita/ JIAN SANDOVAL STAFF PATHOLOGIST, PATHOLOGY & LABORATORY [facility] Signed: 07/21/2022 14:37 JIAN SANDOVAL [facility]
--- OUTSIDE RECORDS SUMMARY | 2023-03-24 08:57 | XMS_ITS ---
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 of Vetera [facility] Address [address] [place] [address] Support Name Relationship Address Phone DOREEN WAGNER Next of Kin [address] [place] [phone] DOREEN Emergency Contact [address] [place] [phone] Insurance Providers: All historical and current [...] Name Patient's Relationship to Policy [place] [employer] [facility] (WNR) MEDICARE ADVANTAGE [facility] (R) June 26, 2016 [id number] JOAN WAGNER KARSTEN PATIENT HUMANA MCR (WNR) MEDICARE ADVANTAGE MCR (WNR) June 26, 2016 [id number] JOAN WAGNER KARSTEN PATIENT [employer]NA MCR (WNR) MEDICARE ADVANTAGE [facility] (WNR) June 26, 2016 [id number] [phone] JOAN WAGNER PATIENT Selected Encounter This section includes the information on record at ME for the Encounter. Date/Time Encounter Type Encounter Description Reason Pro vider Source July 13, 2022 07:25 PM Inpatient Visit DAILY HOSPITALIZATION DATA [facility] [...] 20 appointments. The data comes from all [facility]. Appointment Date/Time Appointment Type Appointme nt Facility Name Jul 28, 2022 10:45 AM [facility] Aug 13, 2022 06:13 PM AMBULATORY - MEDICINE [facility] Aug 23, 2022 09:30 AM AMBULATORY - SURGERY [facility] Aug 23, 2022 09:45 AM [facility] Aug 23, 2022 10:30 AM AMBULATORY - MEDICINE [facility] Aug 23, 2022 10:31 AM AMBULATORY - MEDICINE [facility] Sep 06, 2022 10:15 AM AMBULATORY - SURGERY [facility] Oct 25, 2022 07:00 [facility] Oct 25, 2022 07:30 AM AMBULATORY - [...] of theEncounter. The data comes from all [facility]. Test Date/Time Test Type Test Details Facility Name Jun 12, 2022 12:00 AM Laboratory - Chemistry Order CBC & DIFF BLOOD ONCO SP ONCE [facility] Jun 12, 2022 12:00 AM Laboratory - Chemistry Order COMPREHENSIVE METABOLIC PANEL+MG PLASMA ONCO SP [facility] Jun 12, 2022 12:00 AM Laboratory - Chemistry Order TSH W/REFLEX TO FREE T4 PLASMA ONCO SP ONCE [facility] July 14, 2022 12:00 AM Laboratory - Blood Bank Order ABO/RH - LAB BLOOD [facility] July 14, 2022 02:05 PM Laboratory - Blood Bank Order TYPE & SCREEN - LAB BLOOD [facility] Aug 07, 2022 11:23 AM Laboratory - Chemistry Order DRUG SCREEN PANEL,URINE URINE [facility] Aug 23, 2022 10:47 AM Laboratory - Chemistry Order URINALYSIS URINE ER STAT [facility] Lab Results: +/- 30 days of the [...] Range Comment July 19, 2022 04:40 PM [facility] FINGERSTICK GLUCOSE Specimen Type: BLOOD Comment: Save Result Nurse Notified Ordering Provider: MACKENZIE COTTER Report Released Date/Time: July 19, 2022 05:00 PM Reporting Lab: [facility] [phone] Performing Lab: [facility] [address] FINGERSTICK GLUCOSE 132 70-100 July 19, 2022 07:13 AM [facility] COMPREHENSIVE METABOLIC PANEL+MG Specimen Type: PLASMA No comment entered. Ordering Provider: MACKENZIE COTTER Report Released Date/Time: July 18, 2022 05:40 PM Reporting Lab: [facility] [address] Performing Lab: [facility] [address] CREATININE 0.9 0.7-1.2 UREA NITROGEN 24 8-26 [...] July 19, 2022 07:13 AM [facility] IRON GROUP Specimen Type: SERUM No comment entered. Ordering Provider: MACKENZIE COTTER Report Released Date/Time: July 18, 2022 05:40 PM Reporting Lab: [facility] [address] Performing Lab: [facility] [address] IRON 28 L 65-175 TIBC,CALCULATE D 223 L 250-425 FERRITIN 73.7 21.8-274.7 IRON SATURATION 13 L 20-50 TRANSFERRIN 178 163-382 July 19, 2022 07:13 AM [facility] CBC Specimen Type: BLOOD No comment entered. Ordering Provider: MACKENZIE COTTER Report Released Date/Time: July 18, 2022 05:40 PM Reporting Lab: [facility] [address] Performing Lab: [facility] [address] WBC 7.73 4.0-11.0 RBC 2.42 L 4.6-6.2 HGB 8.2 L 13.5-17.9 HCT 23.8 L 41-54 MCV 98.3 80-100 MCH 33.9 H 27-33 MCHC 34.5 32.0-37.5 PLT 155 150-400 MPV 9.6 7.4-10.4 RDW 13.5 11.5-14.5 July 19, 2022 05:44 AM [facility] FINGERSTICK GLUCOSE Specimen Type: BLOOD Comment: Save Result Nurse Notified Ordering Provider: MACKENZIE COTTER Report Released Date/Time: July 19, 2022 11:54 AM Reporting Lab: [facility] [address] Performing Lab: [facility] [address] FINGERSTICK GLUCOSE 137 70-100 July 18, 2022 10:51 PM [facility] FINGERSTICK GLUCOSE Specimen Type: BLOOD Comment: Save Result Nurse Notified Ordering Provider: MACKENZIE COTTER Report Released Date/Time: July 18, 2022 11:06 PM Reporting Lab: [facility] [address] Performing Lab: [facility] [address] FINGERSTICK GLUCOSE 163 70-100 July 17, 2022 06:51 AM [facility] BASIC METABOLIC PANEL+MG Specimen Type: PLASMA No comment entered. Ordering Provider: DANG VALLE Report Released Date/Time: July 16, 2022 09:37 AM Reporting Lab: [facility] [address] Performing Lab: [facility] [address] CREATININE 0.8 0.7-1.2 UREA NITROGEN 23 8-26 GLUCOSE 107 H 70-100 SODIUM 139 136-145 POTASSIUM 3.9 3.5-5.1 CHLORIDE 106 98-107 CO2 28 22-29 CALCIUM 9.1 8.4-10.2 MAGNESIUM 1.9 1.6-2.6 ANION GAP 5 5-15 .CREAT EGFR(CKD-EPI) >90 See_Commen t July 17, 2022 06:51 AM [facility] PROTHROMBIN TIME/INR Specimen Type: PLASMA No comment entered. Ordering Provider: DANG VALLE R Report Released Date/Time: July 16, 2022 09:37 AM Reporting Lab: [facility] [address] Performing Lab: [facility] [address] .INR 1.0 0.8-1.1 .PT 11.5 9.4-12.5 July 17, 2022 06:51 AM [facility] CBC Specimen Type: BLOOD No comment entered. Ordering Provider: DANG VALLE R Report Released Date/Time: July 16, 2022 09:37 AM Reporting Lab: [facility] [address] Performing Lab: [facility] [address] WBC 6.05 4.0-11.0 RBC 3.77 L 4.6-6.2 HGB 12.7 L 13.5-17.9 HCT 36.0 L 41-54 MCV 95.5 80-100 MCH 33.7 H 27-33 MCHC 35.3 32.0-37.5 PLT 179 150-400 MPV 9.4 7.4-10.4 RDW 13.2 11.5-14.5 July 13, 2022 11:22 AM [facility] COVID-19 AND FLU/RSV DIAG PANEL(CEPHEID) Specimen Typ e: NASOPHARYNGEAL Comment: Cepheid GeneXpert (618) Ordering Provider: WHITNEY ANDERSON Report Released Date/Time: July 13, 2022 11:04 AM Reporting Lab: [facility] [address] Performing Lab: [facility] [address] COVID-19 (CEPHEID) Not Detected Not Detected INFLUENZA A (PCR) Not Detected Not Detected INFLUENZA B (PCR) Not Detected Not Detected RSV (PCR) Not Detected Not Detected July 13, 2022 11:00 AM [facility] C-REACTIVE PROTEIN Specimen Type: SERUM Comment: Automated Differential Performed Ordering Provider: WHITNEY ANDERSON Report Released Date/Time: July 13, 2022 11:04 AM Reporting Lab: [facility] [address] Performing Lab: [facility] [address] C-REACTIVE PROTEIN 1.17 <5.00 July 13, 2022 11:00 AM [facility] PROTHROMBIN TIME/INR Specimen Type: PLASMA No comment entered. Ordering Provider: WHITNEY ANDERSON Report Released Date/Time: July 13, 2022 11:04 AM Reporting Lab: [facility] [address] Performing Lab: [facility] [address] .INR 0.9 0.8-1.1 .PT 11.1 9.4-12.5 July 13, 2022 11:00 AM [facility] SED RATE Specimen Type: BLOOD No comment entered. Ordering Provider: WHITNEY ANDERSON Report Released Date/Time: July 13, 2022 11:04 AM Reporting Lab: [facility] [address] Performing Lab: [facility] [address] SED RATE 10 5-15 July 13, 2022 11:00 AM [facility] CBC & DIFF Specimen Type: BLOOD Comment: Automated Differential Performed Ordering Provider: WHITNEY ANDERSON Report Released Date/Time: July 13, 2022 11:04 AM Reporting Lab: [facility] [address] Performing Lab: [facility] [address] WBC 8.82 4.0-11.0 RBC 3.89 L 4.6-6.2 [...] July 13, 2022 11:00 AM [facility] COMPREHENSIVE METABOLIC PANEL+MG Specimen Type: PLASMA Comment: Automated Differential Performed Ordering Provider: WHITNEY ANDERSON Report Released Date/Time: July 13, 2022 11:04 AM Reporting Lab: [facility] [address] Performing Lab: [facility] [address] CREATININE 1.0 0.7-1.2 UREA NITROGEN 16 8-26 [...] Source July 13, 2022 11:25 PM 8 [facility] July 13, 2022 11:18 PM 97.8 F 60 /min 169/90 mm[Hg] 20 /min 96 % 7 [facility] July 13, 2022 07:29 PM 97.9 F 64 /min 152/78 mm[Hg] 18 /min 93 % 0 [facility] July 13, 2022 06:00 PM 4 [facility] July 13, 2022 05:10 PM 8 [facility] Social History: Smoking Status (Most current) [...] [facility] May 11, 2021 09:15 AM ME-TOBACCO QUIT 15 YRS OR MORE [facility] [...] 07:50 AM CHEST 1 VIEW: MARYJO WAGNER [id number] -1950 M Exm Date: JULY 20, 2022@07:50 Req Phys: MACKENZIE COTTER Pat Loc: 07-20-2022@08:26 Img Loc: MAIN X-RAY Service: PRIMARY CARE - MED OFFICE (Case [id number] COMPLETE) CHEST 1 VIEW (RAD Detailed) CPT:99183 Proc Modifiers : PORTABLE EXAM Reason for Study: see below. thanks. Clinical History: IS NOT under investigation for COVID-19 or is COVID-19 negative Please further evaluate for acute airspace disease given o2 requirement. Thanks. Responsible provider name and phone number to notify for critical findings if other than user placing the order and pager listed below: User placing orders pager: [phone] same LAST CREATININE 0.9 (07/19/22) Report Status: Verified Date Reported: JULY 20, 2022 Date Verified: JULY 20, 2022 Telecommunications Analyst E-Sig:/ES/JAMIE MIGUEL MD Report: EXAM: CHEST 1 VIEW HISTORY: see below. thanks. Reason for Study: see below. thanks. [place] IS NOT under investigation for COVID-19 or is COVID-19 negative Please further evaluate for acute airspace disease given o2 requirement. Thanks. Responsible provider name and phone number to notify for critical findings if other than user placing the order and pager listed below: User placing orders pager: [phone] same LAST CREATININE 0. COMPARISON: Chest CT [...] Primary Interpreting Staff: JAMIE MIGUEL MD, RADIOLOGIST (Telecommunications Analyst) /JAMIE FRANCES [facility] July 18, 2022 12:59 PM ELBOW LEFT 2 VIEWS: MARYJO WAGNER [id number] -1950 M Exm Date: JULY 18, 2022@12:59 Req Phys: LEIF BALBUENA Loc: OR-PACU/07-18-2022@13:59 Img Loc: MAIN X-RAY Service: ZZSURGICAL SERVICE (Case [id number] COMPLETE) ELBOW LEFT 2 VIEWS (RAD Detailed) CPT:63101 Proc Modifiers : PORTABLE EXAM, OPERATING ROOM EXAM Reason for Study: post-op Clinical History: post-op Report Status: Verified Date Reported: JULY 18, 2022 Date Verified: JULY 18, 2022 Telecommunications Analyst E-Sig:/ES/JAKUB LEE MD Report: EXAM: ELBOW [...] Primary Interpreting Staff: JAKUB LEE MD, RADIOLOGIST (Telecommunications Analyst) /[facility] JAKUB LEE [facility] July 18, 2022 07:30 AM FLUORO UP TO 1 HR PHYSICIAN TIME: MARYJO WAGNER [id number] -1950 M Exm Date: JULY 18, 2022@07:30 Req Phys: LEIF BALBUENA Loc: OR-PACU/07-18-2022@13:14 Img Loc: MAIN X-RAY Service: PRIMARY CARE - MED OFFICE (Case [id number] COMPLETE) FLUORO UP TO 1 HR PHYSICIAN TIME (RAD Detailed) CPT:89847 Proc Modifiers : PORTABLE EXAM, OPERATING ROOM EXAM, LEFT Reason for Study: Left distal humerous ORIF Clinical History: OR 7 Pathologic distal humeral shaft fracture Responsible provider name and phone number to notify for critical findings if other than user placing the order and pager listed below: User placing orders pager: Henry BALBUENA [phone] LAST CREATININE 0.8 (07/17/22) Report Status: Electronically Filed Date Reported: JULY 18, 2022 Report: Impression: Please see the full report for this procedure in CPRS patient progress notes. Fluoro guidance was provided during this procedure, but the study was not reviewed or verified by a [facility] radiologist. The radiation exposure dose has been recorded in the patient's chart. If you are unable to view this data, please contact the Imaging Department. VERIFIED BY: / *ELECTRONICALLY FILED* [facility] July 17, 2022 03:28 PM ABDOMINAL AORTOGRAM (P): MARYJO WAGNER [id number] -1950 M Exm Date: JULY 17, 2022@15:28 Req Phys: MALCOM LANGLEY Pat Loc: 07-17-2022@15:54 Img Loc: INTERVENTIONAL RADIOLOGY Service: PRIMARY CARE - MED OFFICE (Case [id number] COMPLETE) ANGIOGRAPHY EXTREMITY UNILAT S&I (ANI Detailed) CPT:35230 Reason for Study: codes (Case 528 COMPLETE) IR AORTOGRAPHY ABDOMINAL W/O RUNO(ANI Detailed) CPT:74017 (Case 529 COMPLETE) IR FOREIGN BODY REMOVAL INTRAVASC(ANI Detailed) CPT:62230 (Case 532 COMPLETE) IR NEEDLE/INTRACATH PLACEMENT EXT(ANI Detailed) CPT:70318 (Case 533 COMPLETE) IR PLACEMENT OCCLUSIVE DEVICE SAM(ANI Detailed) CPT:G0269 Clinical History: codes Report Status: Verified Date Reported: JULY 17, 2022 Date Verified: JULY 17, 2022 Telecommunications Analyst E-Sig:/ES/MALCOM LANGLEY MD Report: RADIOLOGIST: Malcom [...] angiogram and runoff. 12. Closure of right GENERAL MANAGER with Angio-Seal device. HISTORY: Metastatic renal [...] into the left brachial artery. The 5 Uruguayan sheath was exchanged for a 6 [place]ruguayan sheath that was advanced into the left [...] arteries. Sheath and catheters were removed and GENERAL MANAGER arteriotomy was closed using Angioseal. There is patent hemostasis. No bleeding or hematoma noted. Sterile dressing applied. 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 12. Closure of right GENERAL MANAGER with Angio-Seal device. HISTORY: Metastatic renal [...] into the left brachial artery. The 5 [place]ayan sheath was exchanged for a 6 [place] sheath that was advanced into the left [...] arteries. Sheath and catheters were removed and GENERAL MANAGER arteriotomy was closed using Angioseal. There is patent hemostasis. No bleeding or hematoma noted. Sterile dressing applied. 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 Primary Interpreting Staff: MALCOM LANGLEY MD, INTERVENTIONAL RADIOLOGIST (Telecommunications Analyst) /MALCOM HE [facility] July 14, 2022 06:44 AM HUMERUS LEFT MINIMUM 2 VIEWS: MARYJO WAGNER [id number] -1950 M Exm Date: JULY 14, 2022@06:44 Req Phys: WESTON VASQUEZ [facility] Loc: 07-14-2022@07:13 Img Loc: MAIN X-RAY Service: PRIMARY CARE - MED OFFICE (Case [id number] COMPLETE) HUMERUS LEFT MINIMUM 2 VIEWS (RAD Detailed) CPT:97426 Reason for Study: post reduction Clinical History: Report Status: Verified Date Reported: JULY 14, 2022 Date Verified: JULY 14, 2022 Telecommunications Analyst E-Sig: Report: HUMERUS LEFT MINIMUM 2 [...] less likely. READING PHYSICIAN: Xavier Merrill MD -[id number] 07/14/2022 5:11 PDT [facility] National Teleradiology Program [phone] (For Medical Practitioner Use Only) Attention Patients / Veterans: If you have questions or concerns about these test results, please contact your ordering provider or primary care team. Primary Interpreting Staff: RADIOLOGY,OUTSIDE SERVICE, Staff Physician / RADIOLOGY,OUTSIDE SERVICE [facility] July 13, 2022 10:07 AM HUMERUS LEFT MINIMUM 2 VIEWS: MARYJO WAGNER [id number] -1950 M Ex Date: JULY 13, 2022@10:07 Req Phys: WHITNEY ANDERSON Pat Loc: [facility]PT WALK-IN (Re Img Loc: MAIN X-RAY Service: Unknown (Case [id number] COMPLETE) HUMERUS LEFT MINIMUM 2 VIEWS (RAD Detailed) CPT:94705 Proc Modifiers : LEFT Reason for Study: [...] pager listed below: User placing orders pager: [phone] LAST CREATININE 0.8 (05/10/22) Report Status: Verified Date Reported: JULY 13, 2022 Date Verified: JULY 13, 2022 Telecommunications Analyst E-Sig:/SANGITA/ALBINA COWAN MD, FACR, CCD Report: [...] Staff: ALBINA COWAN MD, FACR, STAFF RADIOLOGIST (Telecommunications Analyst) /[facility] ALBINA COWAN [facility] July 13, 2022 10:07 AM ELBOW LEFT 3 OR MORE VIEWS: BERNARDMARYJO [id number] -1950 M Exm Date: JULY 13, 2022@10:07 Req Phys: WHITNEY ANDERSON Pat Loc: [facility] EM[facility]PT WALK-IN (Re Img Loc: MAIN X-RAY Service: Unknown (Case [id number] COMPLETE) ELBOW LEFT 3 OR MORE VIEWS (RAD Detailed) CPT:88739 Proc Modifiers : LEFT Reason for Study: L arm pain Clinical History: [place] IS NOT under investigation for COVID-19 or is COVID-19 negative Atraumatic left upper extremity pain that is located midshaft humerus distally to the mid forearm. Clinical concern for dislocation versus fracture versus bone mets Responsible provider name and phone number to notify for critical findings if other than user placing the order and pager listed below: User placing orders pager: [phone] LAST CREATININE 0.8 (05/10/22) Report Status: Verified Date Reported: JULY 13, 2022 Date Verified: JULY 13, 2022 Telecommunications Analyst E-Sig:/SANGITA/ALBINA COWAN MD, FACR, CCD Report: [...] Staff: ALBINA COWAN MD, FACR, STAFF RADIOLOGIST (Telecommunications Analyst) /ALBINA NATHAN [facility] July 13, 2022 10:07 AM FOREARM LEFT 2 VIEWS: MARYJO WAGNER [id number] -1950 M Exm Date: JULY 13, 2022@10:07 Req Phys: MONICAWHITNEY MARIN Pat Loc: [facility] EM[facility]PT WALK-IN (Re Img Loc: MAIN X-RAY Service: Unknown (Case [id number] COMPLETE) FOREARM LEFT 2 VIEWS (RAD Detailed) CPT:03556 Proc Modifiers : LEFT Reason for Study: L arm pain Clinical History: [place] IS NOT under investigation for COVID-19 or is COVID-19 negative Atraumatic left upper extremity pain that is located midshaft humerus distally to the mid forearm. Clinical concern for dislocation versus fracture versus bone mets Responsible provider name and phone number to notify for critical findings if other than user placing the order and pager listed below: User placing orders pager: [phone] LAST CREATININE 0.8 (05/10/22) Report Status: Verified Date Reported: JULY 13, 2022 Date Verified: JULY 13, 2022 Telecommunications Analyst E-Sig:/ES/ALBINA COWAN MD, FACR, CCD Report: [...] Staff: ALBINA COWAN MD, FACR, STAFF RADIOLOGIST (Telecommunications Analyst) /ALBINA NATHAN [facility] Pathology Reports: +/- 30 days of [...] STATUS: COMPLETED $APHDR Reporting Lab: [facility] [CLIA# [id number]] [place] [address] - - - - - - - [...] SANDOVAL STAFF PATHOLOGIST, PATHOLOGY & LABORATORY [facility] [place] [place] Signed July 21, 2022@14:37 Performing Laboratory: Surgical Pathology Report Performed By: [facility] [CLIA# [id number]] [place] [address] $FTR - - - - - - [...] - - MARYJO WAGNER STANDARD FORM 515 ID:[id number] SEX:M :1950 AGE: 72 LOC:[facility] PATHOLOGY PRO FEE ADM:June DX:PATHOLOGIC FX LF HUMERUS PCP: Leif Balbuena MD /sangita/ JIAN SANDOVAL STAFF PATHOLOGIST, PATHOLOGY & LABORATORY [facility] [place] [place] Signed: 07/21/2022 14:37 JIAN SANDOVAL [facility]
--- OUTSIDE RECORDS SUMMARY | 2023-03-24 08:58 | XMS_ITS ---
DAILY HOSPITALIZATION DATA 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 of Vetera [facility] Address [address] [place] [address] Support Name Relationship Address Phone DOREEN WAGNER Next of Kin [address] [place] [phone] DOREEN Emergency Contact [address] [place] [address] Insurance Providers: All historical and current [...] Name Patient's Relationship to Policy [place] [facility] [facility] (WNR) MEDICARE ADVANTAGE [facility] (R) June 26, 2016 [id number] JOAN WAGNER KARSTEN PATIENT [employer] MCR (WNR) MEDICARE ADVANTAGE MCR (WNR) June 26, 2016 [id number] JOAN WAGNER KARSTEN PATIENT [employer] MCR (WNR) MEDICARE ADVANTAGE [facility] (WNR) June 26, 2016 [id number] JOAN WAGNER PATIENT Selected Encounter This section includes the information on record at CT for the Encounter. Date/Time Encounter Type Encounter Description Reason Pro vider Source July 14, 2022 05:11 PM Inpatient Visit DAILY HOSPITALIZATION DATA [facility] Encounter Template Text not used by CT Plan of Treatment: Future Appointments (+ 6 months) and Future Tests (+/- 45 days) The Plan of Treatment section includes future care activities for the patient from all CT treatmentfacilities. This section includes future appointments and [...] 28, 2022 10:45 AM [facility] Aug 13, 2022 06:13 PM AMBULATORY - MEDICINE [facility] Aug 23, 2022 09:30 AM AMBULATORY - SURGERY [facility] Aug 23, 2022 09:45 [facility] Aug 23, 2022 10:30 AM AMBULATORY - MEDICINE [facility] Aug 23, 2022 10:31 AM AMBULATORY - MEDICINE [facility] Sep 06, 2022 10:15 AM AMBULATORY - SURGERY [facility] Oct 25, 2022 07:00 [facility] Oct 25, 2022 07:30 AM AMBULATORY - SURGERY [facility] Oct 25, 2022 09:00 AM AMBULATORY - SURGERY [facility] Active, Pending, and Scheduled Orders [...] CBC & DIFF BLOOD ONCO SP ONCE [facility] Jun 12, 2022 12:00 AM Laboratory - Chemistry Order COMPREHENSIVE METABOLIC PANEL+MG PLASMA ONCO SP [facility] Jun 12, 2022 12:00 AM Laboratory - Chemistry Order TSH W/REFLEX TO FREE T4 PLASMA ONCO SP ONCE [facility] July 14, 2022 12:00 AM Laboratory - Blood Bank Order ABO/RH - LAB BLOOD [facility] July 14, 2022 02:05 PM Laboratory - Blood Bank Order TYPE & SCREEN - LAB BLOOD [facility] Aug 07, 2022 11:23 AM Laboratory - Chemistry Order DRUG SCREEN PANEL,URINE URINE [facility] Aug 23, 2022 10:47 AM [...] Range Comment July 19, 2022 04:40 PM [facility] FINGERSTICK GLUCOSE Specimen Type: BLOOD Comment: Save Result Nurse Notified Ordering Provider: MACKENZIE COTTER Report Released Date/Time: July 19, 2022 05:00 PM Reporting Lab: [facility] [address] Performing Lab: [facility] [address] FINGERSTICK GLUCOSE 132 70-100 July 19, 2022 07:13 AM [facility] COMPREHENSIVE METABOLIC PANEL+MG Specimen Type: PLASMA No comment entered. Ordering Provider: MACKENZIE COTTER Report Released Date/Time: July 18, 2022 05:40 PM Reporting Lab: [facility] [address] Performing Lab: [facility] [address] CREATININE 0.9 0.7-1.2 UREA NITROGEN 24 8-26 [...] See_Commen t July 19, 2022 07:13 AM [facility] IRON GROUP Specimen Type: SERUM No comment entered. Ordering Provider: MACKENZIE COTTER Report Released Date/Time: July 18, 2022 05:40 PM Reporting Lab: [facility] [address] Performing Lab: [facility] [address] IRON 28 L 65-175 TIBC,CALCULATE D 223 L 250-425 FERRITIN 73.7 21.8-274.7 IRON SATURATION 13 L 20-50 TRANSFERRIN 178 163-382 July 19, 2022 07:13 AM [facility] CBC Specimen Type: BLOOD No comment entered. Ordering Provider: MACKENZIE COTTER Report Released Date/Time: July 18, 2022 05:40 PM Reporting Lab: [facility] [address] Performing Lab: [facility] [address] WBC 7.73 4.0-11.0 RBC 2.42 L 4.6-6.2 HGB 8.2 L 13.5-17.9 HCT 23.8 L 41-54 MCV 98.3 80-100 MCH 33.9 H 27-33 MCHC 34.5 32.0-37.5 PLT 155 150-400 MPV 9.6 7.4-10.4 RDW 13.5 11.5-14.5 July 19, 2022 05:44 AM [facility] FINGERSTICK GLUCOSE Specimen Type: BLOOD Comment: Save Result Nurse Notified Ordering Provider: MACKENZIE COTTER Report Released Date/Time: July 19, 2022 11:54 AM Reporting Lab: [facility] [phone] Performing Lab: [facility] [address] FINGERSTICK GLUCOSE 137 70-100 July 18, 2022 10:51 PM [facility] FINGERSTICK GLUCOSE Specimen Type: BLOOD Comment: Save Result Nurse Notified Ordering Provider: MACKENZIE COTTER Report Released Date/Time: July 18, 2022 11:06 PM Reporting Lab: [facility] [address] Performing Lab: [facility] [address] FINGERSTICK GLUCOSE 163 70-100 July 17, 2022 06:51 AM [facility] BASIC METABOLIC PANEL+MG Specimen Type: PLASMA No comment entered. Ordering Provider: DANG VALLE Report Released Date/Time: July 16, 2022 09:37 AM Reporting Lab: [facility] [address] Performing Lab: [facility] [address] CREATININE 0.8 0.7-1.2 UREA NITROGEN 23 8-26 GLUCOSE 107 H 70-100 SODIUM 139 136-145 POTASSIUM 3.9 3.5-5.1 CHLORIDE 106 98-107 CO2 28 22-29 CALCIUM 9.1 8.4-10.2 MAGNESIUM 1.9 1.6-2.6 ANION GAP 5 5-15 .CREAT EGFR(CKD-EPI) >90 See_Commen t July 17, 2022 06:51 AM [facility] PROTHROMBIN TIME/INR Specimen Type: PLASMA No comment entered. Ordering Provider: DANG VALLE R Report Released Date/Time: July 16, 2022 09:37 AM Reporting Lab: [facility] [address] Performing Lab: [facility] [address] .INR 1.0 0.8-1.1 .PT 11.5 9.4-12.5 July 17, 2022 06:51 AM [facility] CBC Specimen Type: BLOOD No comment entered. Ordering Provider: DANG VALLE R Report Released Date/Time: July 16, 2022 09:37 AM Reporting Lab: [facility] [address] Performing Lab: [facility] [address] WBC 6.05 4.0-11.0 RBC 3.77 L 4.6-6.2 HGB 12.7 L 13.5-17.9 HCT 36.0 L 41-54 MCV 95.5 80-100 MCH 33.7 H 27-33 MCHC 35.3 32.0-37.5 PLT 179 150-400 MPV 9.4 7.4-10.4 RDW 13.2 11.5-14.5 July 13, 2022 11:22 AM [facility] COVID-19 AND FLU/RSV DIAG PANEL(CEPHEID) Specimen Typ e: NASOPHARYNGEAL Comment: Cepheid GeneXpert (618) Ordering Provider: WHITNEY ANDERSON Report Released Date/Time: July 13, 2022 11:04 AM Reporting Lab: [facility] [address] Performing Lab: [facility] [address] COVID-19 (CEPHEID) Not Detected Not Detected INFLUENZA A (PCR) Not Detected Not Detected INFLUENZA B (PCR) Not Detected Not Detected RSV (PCR) Not Detected Not Detected July 13, 2022 11:00 AM [facility] C-REACTIVE PROTEIN Specimen Type: SERUM Comment: Automated Differential Performed Ordering Provider: WHITNEY ANDERSON Report Released Date/Time: July 13, 2022 11:04 AM Reporting Lab: [facility] [address] Performing Lab: [facility] [address] C-REACTIVE PROTEIN 1.17 <5.00 July 13, 2022 11:00 AM [facility] PROTHROMBIN TIME/INR Specimen Type: PLASMA No comment entered. Ordering Provider: WHITNEY ANDERSON Report Released Date/Time: July 13, 2022 11:04 AM Reporting Lab: [facility] [address] Performing Lab: [facility] [address] .INR 0.9 0.8-1.1 .PT 11.1 9.4-12.5 July 13, 2022 11:00 AM [facility] SED RATE Specimen Type: BLOOD No comment entered. Ordering Provider: WHITNEY ANDERSON Report Released Date/Time: July 13, 2022 11:04 AM Reporting Lab: [facility] [address] Performing Lab: [facility] [address] SED RATE 10 5-15 July 13, 2022 11:00 AM [facility] CBC & DIFF Specimen Type: BLOOD Comment: Automated Differential Performed Ordering Provider: WHITNEY ANDERSON Report Released Date/Time: July 13, 2022 11:04 AM Reporting Lab: [facility] [address] Performing Lab: [facility] [address] WBC 8.82 4.0-11.0 RBC 3.89 L 4.6-6.2 [...] 0.03 0-0.1 July 13, 2022 11:00 AM [facility] COMPREHENSIVE METABOLIC PANEL+MG Specimen Type: PLASMA Comment: Automated Differential Performed Ordering Provider: WHITNEY ANDERSON Report Released Date/Time: July 13, 2022 11:04 AM Reporting Lab: [facility] [address] Performing Lab: [facility] [address] CREATININE 1.0 0.7-1.2 UREA NITROGEN 16 8-26 [...] Height Weight Body Mass Index Source July 14, 2022 11:40 PM 8 [facility] July 14, 2022 11:33 PM 98.2 F 57 /min 134/63 mm[Hg] 21 /min 94 % 8 [facility] July 14, 2022 10:30 PM 8 [facility] July 14, 2022 10:20 PM 8 [facility] July 14, 2022 09:33 PM 8 [facility] Social History: Smoking Status (Most current) [...] 10, 2022 09:15 AM VA-TOBACCO FORMER USER [facility] Tobacco Use History This section includes a history of the smoking, or tobacco-related health factors, that were collected on or before the date of the Encounter. The data comes from the CT facility where the Encounter took place. Date/Time Smoking Status/Tobacco Use Comment F acility May 10, 2022 09:15 AM VA-TOBACCO QUIT 15 YRS OR MORE [facility] May 11, 2021 09:15 AM VA-TOBACCO FORMER USER [facility] May 11, 2021 09:15 AM VA-TOBACCO QUIT 15 YRS OR MORE [facility] Nov 22, 2018 01:36 PM VA-TOBACCO NEVER USED [facility] Nov 12, 2017 07:35 AM FORMER TOBACCO USER 7Y OR GREATE R [facility] Nov 06, 2016 09:05 AM FORMER TOBACCO USER 7Y OR GREATE R [facility] Sep 27, 2015 09:42 AM FORMER TOBACCO USER 7Y OR GREATE R [facility] Sep 25, 2014 07:55 AM FORMER TOBACCO USER 7Y OR GREATE R [facility] Sep 08, 2013 07:48 AM FORMER TOBACCO USER 7Y OR GREATE R [facility] July 09, 2012 09:20 AM FORMER TOBACCO USE >1Y <7Y [facility] Jun 06, 2011 07:53 AM FORMER TOBACCO USE >1Y <7Y [facility] Sep 09, 2009 03:03 PM FORMER TOBACCO USE >1Y <7Y [facility] Aug 11, 2008 01:06 PM FORMER TOBACCO USE <1Y [facility] Sep 19, 2007 02:52 PM CURRENT TOBACCO USER [facility] Sep 03, 2006 03:32 PM CURRENT TOBACCO USER [facility] Advance Directives: All historical and [...] Mar 18, 2003 ADVANCE DIRECTIVE FARHAT MELGAR [facility] Radiology Reports: +/- 30 days of [...] 07:50 AM CHEST 1 VIEW: MARYJO WAGNER [id number] -1950 M Exm Date: JULY 20, 2022@07:50 Req Phys: MACKENZIE COTTER [facility] Pat Loc: 07-20-2022@08:26 Img Loc: MAIN X-RAY Service: PRIMARY CARE - MED OFFICE (Case [id number] COMPLETE) CHEST 1 VIEW (RAD Detailed) CPT:98895 Proc Modifiers : PORTABLE EXAM Reason for Study: see below. thanks. Clinical History: IS NOT under investigation for COVID-19 or is COVID-19 negative Please further evaluate for acute airspace disease given o2 requirement. Thanks. Responsible provider name and phone number to notify for critical findings if other than user placing the order and pager listed below: User placing orders pager: [phone] same LAST CREATININE 0.9 (07/19/22) Report Status: Verified Date Reported: JULY 20, 2022 Date Verified: JULY 20, 2022 Packer Fuser E-Sig:/ES/JAMIE MIGUEL MD Report: EXAM: CHEST 1 [...] pager listed below: User placing orders pager: [phone] same LAST CREATININE 0. COMPARISON: Chest CT [...] Primary Interpreting Staff: JAMIE MIGUEL MD, RADIOLOGIST (Packer Fuser) /JAMIE FRANCES [facility] July 18, 2022 12:59 PM ELBOW LEFT 2 VIEWS: MARYJO WAGNER [id number] -1950 M Exm Date: JULY 18, 2022@12:59 Req Phys: LEIF BALBUENA Pat Loc: OR-PACU/07-18-2022@13:59 Img Loc: MAIN X-RAY Service: ZZSURGICAL SERVICE (Case [id number] COMPLETE) ELBOW LEFT 2 VIEWS (RAD Detailed) CPT:01464 Proc Modifiers : PORTABLE EXAM, OPERATING ROOM EXAM Reason for Study: post-op Clinical History: post-op Report Status: Verified Date Reported: JULY 18, 2022 Date Verified: JULY 18, 2022 Packer Fuser E-Sig:/ES/JAKUB LEE MD Report: EXAM: ELBOW LEFT [...] Primary Interpreting Staff: JAKUB LEE MD, RADIOLOGIST (Packer Fuser) /[facility] [place]AKUB LEE [facility] July 18, 2022 07:30 AM FLUORO UP TO 1 HR PHYSICIAN TIME: MARYJO WAGNER [id number] -1950 M Exm Date: JULY 18, 2022@07:30 Req Phys: LEIF BALBUENA Loc: OR-PACU/07-18-2022@13:14 Img Loc: MAIN X-RAY Service: PRIMARY CARE - MED OFFICE (Case [id number] COMPLETE) FLUORO UP TO 1 HR PHYSICIAN TIME (RAD Detailed) CPT:02739 Proc Modifiers : PORTABLE EXAM, OPERATING ROOM EXAM, LEFT Reason for Study: Left distal humerous ORIF Clinical History: OR 7 Pathologic distal humeral shaft fracture Responsible provider name and phone number to notify for critical findings if other than user placing the order and pager listed below: User placing orders pager: Henry BALBUENA [phone] LAST CREATININE 0.8 (07/17/22) Report Status: Electronically Filed Date Reported: JULY 18, 2022 Report: Impression: Please see the full report for this procedure in CPRS patient progress notes. Fluoro guidance was provided during this procedure, but the study was not reviewed or verified by a [facility] radiologist. The radiation exposure dose has been recorded in the patient's chart. If you are unable to view this data, please contact the Imaging Department. VERIFIED BY: / *ELECTRONICALLY FILED* [facility] July 17, 2022 03:28 PM ABDOMINAL AORTOGRAM (P): BERNARDMARYJO DIRK [id number] -1950 M Exm Date: JULY 17, 2022@15:28 Req Phys: MALCOM LANGLEY Loc: 07-17-2022@15:54 Img Loc: INTERVENTIONAL RADIOLOGY Service: PRIMARY CARE - MED OFFICE (Case [id number] COMPLETE) ANGIOGRAPHY EXTREMITY UNILAT S&I (ANI Detailed) CPT:13881 Reason for Study: codes (Case 528 COMPLETE) IR AORTOGRAPHY ABDOMINAL W/O RUNO(ANI Detailed) CPT:98999 (Case 529 COMPLETE) IR FOREIGN BODY REMOVAL INTRAVASC(ANI Detailed) CPT:97661 (Case 532 COMPLETE) IR NEEDLE/INTRACATH PLACEMENT EXT(ANI Detailed) CPT:19451 (Case 533 COMPLETE) IR PLACEMENT OCCLUSIVE DEVICE SAM(ANI Detailed) CPT:G0269 Clinical History: codes Report Status: Verified Date Reported: JULY 17, 2022 Date Verified: JULY 17, 2022 Packer Fuser E-Sig:/ES/MALCOM LANGLEY MD Report: RADIOLOGIST: Malcom Langley [...] angiogram and runoff. 12. Closure of right GRAB HOOKER with Angio-Seal device. HISTORY: Metastatic renal cell [...] Sheath removed over guidewire and a 5 ukrainian vascular sheath advanced over guidewire into the artery. An H1 catheter was advanced along with the guidewire into the thoracic arch and the left subclavian artery was selected. Catheter and the guidewire were advanced into the left brachial artery. The 5 Paraguayan sheath was exchanged for a 6 Paraguayan sheath that was advanced into the left [...] arteries. Sheath and catheters were removed and GRAB HOOKER arteriotomy was closed using Angioseal. There is patent hemostasis. No bleeding or hematoma noted. Sterile dressing applied. 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 Primary Interpreting Staff: MALCOM LANGLEY MD, INTERVENTIONAL RADIOLOGIST (Packer Fuser) /MALCOM HE [facility] July 17, 2022 07:30 AM RENAL ARTERY EMBOLIZATION (P): MARYJO WAGNER [id number] -1950 M Exm Date: JULY 17, 2022@07:30 Req Phys: WESTON VASQUEZ Pat Loc: 07-17-2022@15:46 Img Loc: INTERVENTIONAL RADIOLOGY Service: PRIMARY CARE - MED OFFICE (Case [id number] COMPLETE) IR TRANSCATH EMBOLIZATION W/ANGIO(ANI Detailed) CPT:93973 Reason for Study: embolization of RCC mets to left humerus (Case 131 COMPLETE) IR ARTERIAL EMBOLIZATION OTHER TH(ANI Detailed) CPT:57327 (Case 132 COMPLETE) IR US GUIDANCE VASCULAR ACCESS (ANI Detailed) CPT:93065 Clinical History: [place] IS NOT under investigation for COVID-19 or [...] pager listed below: User placing orders pager: [phone] LAST CREATININE 1.0 (07/13/22) Report Status: Verified Date Reported: JULY 17, 2022 Date Verified: JULY 17, 2022 Packer Fuser E-Sig:/ES/MALCOM LANGLEY MD Report: RADIOLOGIST: Malcom Langley [...] angiogram and runoff. 12. Closure of right GRAB HOOKER with Angio-Seal device. HISTORY: Metastatic renal cell [...] Sheath removed over guidewire and a 5 ukrainian vascular sheath advanced over guidewire into the artery. An H1 catheter was advanced along with the guidewire into the thoracic arch and the left subclavian artery was selected. Catheter and the guidewire were advanced into the left brachial artery. The 5 Paraguayan sheath was exchanged for a 6 Paraguayan sheath that was advanced into the left [...] arteries. Sheath and catheters were removed and GRAB HOOKER arteriotomy was closed using Angioseal. There is patent hemostasis. No bleeding or hematoma noted. Sterile dressing applied. 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 Primary Interpreting Staff: MALCOM LANGLEY MD, INTERVENTIONAL RADIOLOGIST (Packer Fuser) /MALCOM HE [facility] July 14, 2022 06:44 AM HUMERUS LEFT MINIMUM 2 VIEWS: MARYJO WAGNER [id number] -1950 M Ex Date: JULY 14, 2022@06:44 Req Phys: PEDROHERBERTJAIRO [facility] Loc: 07-14-2022@07:13 Img Loc: MAIN X-RAY Service: PRIMARY CARE - MED OFFICE (Case [id number] COMPLETE) HUMERUS LEFT MINIMUM 2 VIEWS (RAD Detailed) CPT:31962 Reason for Study: post reduction Clinical History: Report Status: Verified Date Reported: JULY 14, 2022 Date Verified: JULY 14, 2022 Packer Fuser E-Sig: Report: HUMERUS LEFT MINIMUM 2 VIEWS [...] less likely. READING PHYSICIAN: Xavier Merrill MD -[id number] 07/14/2022 5:11 PDT [facility] National Teleradiology Program [phone] (For Medical Practitioner Use Only) Attention Patients / Veterans: If you have questions or concerns about these test results, please contact your ordering provider or primary care team. Primary Interpreting Staff: RADIOLOGY,OUTSIDE SERVICE, Staff Physician / RADIOLOGY,OUTSIDE SERVICE [facility] July 13, 2022 10:07 AM HUMERUS LEFT MINIMUM 2 VIEWS: MARYJO WAGNER [id number] -1950 M Ex Date: JULY 13, 2022@10:07 Req Phys: WHITNEY ANDERSON Pat Loc: [facility] EMERGENCY DEPT WALK-IN (Re Img Loc: MAIN X-RAY Service: Unknown (Case [id number] COMPLETE) HUMERUS LEFT MINIMUM 2 VIEWS (RAD Detailed) CPT:90585 Proc Modifiers : LEFT Reason for Study: L arm pain Clinical History: [place] IS NOT under investigation for COVID-19 or is COVID-19 negative Atraumatic left upper extremity pain that is located midshaft humerus distally to the mid forearm. Clinical concern for dislocation versus fracture versus bone mets Responsible provider name and phone number to notify for critical findings if other than user placing the order and pager listed below: User placing orders pager: [phone] LAST CREATININE 0.8 (05/10/22) Report Status: Verified Date Reported: JULY 13, 2022 Date Verified: JULY 13, 2022 Packer Fuser E-Sig:/SANGITA/ALBINA COWAN MD, FACR, CCD Report: EXAMINATION: [...] Staff: ALBINA COWAN MD, FACR, STAFF RADIOLOGIST (Packer Fuser) /[facility] ALBINA COWAN [facility] July 13, 2022 10:07 AM FOREARM LEFT 2 VIEWS: MARYJO WAGNER [id number] -1950 M Exm Date: JULY 13, 2022@10:07 Req Phys: WHITNEY ANDERSON Pat Loc: [facility] EMERGENCY DEPT WALK-IN (Re Img Loc: MAIN X-RAY Service: Unknown (Case [id number] COMPLETE) FOREARM LEFT 2 VIEWS (RAD Detailed) CPT:43016 Proc Modifiers : LEFT Reason for Study: [...] pager listed below: User placing orders pager: [phone] LAST CREATININE 0.8 (05/10/22) Report Status: Verified Date Reported: JULY 13, 2022 Date Verified: JULY 13, 2022 Packer Fuser E-Sig:/SANGITA/ALBINA COWAN MD, FACR, CCD Report: EXAMINATION: [...] Staff: ALBINA COWAN MD, FACR, STAFF RADIOLOGIST (Packer Fuser) /ALBINA NATHAN [facility] July 13, 2022 10:07 AM ELBOW LEFT 3 OR MORE VIEWS: MARYJO WAGNER [id number] -1950 M Exm Date: JULY 13, 2022@10:07 Req Phys: WHITNEY ANDERSON Pat Loc: [facility] EMERGENCY DEPT WALK-IN (Re Img Loc: MAIN X-RAY Service: Unknown (Case [id number] COMPLETE) ELBOW LEFT 3 OR MORE VIEWS (RAD Detailed) CPT:09811 Proc Modifiers : LEFT Reason for Study: [...] pager listed below: User placing orders pager: [phone] LAST CREATININE 0.8 (05/10/22) Report Status: Verified Date Reported: JULY 13, 2022 Date Verified: JULY 13, 2022 Packer Fuser E-Sig:/ES/ALBINA COWAN MD, FACR, CCD Report: EXAMINATION: [...] Staff: ALBINA COWAN MD, FACR, STAFF RADIOLOGIST (Packer Fuser) /ALBINA NATHAN [facility] Pathology Reports: +/- 30 days [...] COSIGNER: URGENCY: STATUS: COMPLETED $APHDR Reporting Lab: [facility] [CLIA# [id number]] [place] [address] - - - - - - - [...] is entirely submitted in A-D. CE. (D). [facility] FROZEN SECTION DIAGNOSES: SPEC. 1 - [...] PATHOLOGY & LABORATORY [place] [facility] [place] July 21, 2022@14:37 Performing Laboratory: Surgical Pathology Report Performed By: [facility] [CLIA# [id number]] [place] [address] $FTR - - - - - - - - - - - - - - - - - - - - - - - - - - - - - - - - - - - - - - - - (End of report) JAIN SANDOVAL MD rks Date July 21, 2022 - - - - - - - - - - - - - - - - - - - - - - - - - - - - - - - - - - - - - - - - MARYJO WAGNER STANDARD FORM 515 ID:[id number] SEX:M :1950 AGE: 72 LOC:[facility] PATHOLOGY PRO FEE ADM:June DX:PATHOLOGIC FX LF HUMERUS PCP: Leif Balbuena MD /sangita/ JIAN SANDOVAL STAFF PATHOLOGIST, PATHOLOGY & LABORATORY MED C Signed: 07/21/2022 14:37 JIAN SANDOVAL [facility]
--- OUTSIDE RECORDS SUMMARY | 2023-03-24 08:58 | XMS_ITS | Encounter Summary ---
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 [facility] Organization [facility] of [facility] Address [address] [place] [address] Support Name Relationship Address Phone DOREEN WAGNER Next of Kin [address] [place] [phone] DOREEN Emergency Contact [address] [place] [phone] Insurance Providers: All historical and current [...] Name Patient's Relationship to Policy Casey HUMANA [facility] (WNR) MEDICARE ADVANTAGE [facility] (R) June 26, 2016 [id number] CARSONJOAN ROWELL PATIENT HUMANA MCR (WNR) MEDICARE ADVANTAGE [facility] (WNR) June 26, 2016 [id number] JOAN WAGNER KARSTEN PATIENT HUMANA MCR (WNR) MEDICARE ADVANTAGE [facility] (WNR) June 26, 2016 [id number] [phone] JOAN WAGNER KARSTEN PATIENT Selected Encounter This section includes the information on record at [place] for the Encounter. Date/Time Encounter Type Encounter Description Reason Provider Source July 13, 2022 01:00 AM Outpatient Encounter ADMIN Drill Map (KigoCT) SYSTEM,LearnZillion-ARK IHE Encounter Template Text not used by [...] from all [facility]. Appointment Date/Time Appointment Type Appointme nt Facility Name Jul 28, 2022 10:45 AM [facility] Aug 13, 2022 06:13 PM AMBULATORY - MEDICINE [facility] Aug 23, 2022 09:30 AM AMBULATORY - SURGERY [facility] Aug 23, 2022 09:45 AM [facility] Aug 23, 2022 10:30 AM AMBULATORY - MEDICINE [facility] Aug 23, 2022 10:31 AM AMBULATORY - MEDICINE [facility] Sep 06, 2022 10:15 AM AMBULATORY - SURGERY [facility] Oct 25, 2022 07:00 AM [facility] Oct 25, 2022 07:30 AM AMBULATORY - SURGERY [facility] Oct 25, 2022 09:00 AM AMBULATORY - SURGERY [facility] Active, Pending, and Scheduled Orders This [...] from all [facility]. Test Date/Time Test Type Test Details Facility Name Jun 12, 2022 12:00 AM Laboratory - Chemistry Order CBC & DIFF BLOOD ONCO SP ONCE [facility] Jun 12, 2022 12:00 AM Laboratory - Chemistry Order COMPREHENSIVE METABOLIC PANEL+MG PLASMA ONCO SP ONCE [facility] Jun 12, 2022 12:00 AM Laboratory - Chemistry Order TSH W/REFLEX TO FREE T4 PLASMA ONCO SP ONCE [facility] July 14, 2022 12:00 AM Laboratory - Blood Bank Order ABO/RH - LAB BLOOD [facility] July 14, 2022 02:05 PM Laboratory - Blood Bank Order TYPE & SCREEN - LAB BLOOD [facility] Aug 07, 2022 11:23 AM Laboratory - Chemistry Order DRUG SCREEN PANEL,URINE URINE [facility] Aug 23, 2022 10:47 AM Laboratory - Chemistry Order URINALYSIS URINE ER STAT WC [facility] Lab Results: +/- 30 days of [...] Range Comment July 19, 2022 04:40 PM [facility] FINGERSTICK GLUCOSE Specimen Type: BLOOD Comment: Save Result Nurse Notified Ordering Provider: MACKENZIE COTTER Report Released Date/Time: July 19, 2022 05:00 PM Reporting Lab: [facility] [address] Performing Lab: [facility] [address] FINGERSTICK GLUCOSE 132 70-100 July 19, 2022 07:13 AM [facility] COMPREHENSIVE METABOLIC PANEL+MG Specimen Type: PLASMA No comment entered. Ordering Provider: MACKENZIE COTTER Report Released Date/Time: July 18, 2022 05:40 PM Reporting Lab: [facility] [address] Performing Lab: [facility] [address] CREATININE 0.9 0.7-1.2 UREA NITROGEN 24 8-26 [...] See_Commen t July 19, 2022 07:13 AM [facility] IRON GROUP Specimen Type: SERUM No comment entered. Ordering Provider: MACKENZIE COTTER Report Released Date/Time: July 18, 2022 05:40 PM Reporting Lab: [facility] [address] Performing Lab: [facility] [address] IRON 28 L 65-175 TIBC,CALCULATE D 223 L 250-425 FERRITIN 73.7 21.8-274.7 IRON SATURATION 13 L 20-50 TRANSFERRIN 178 163-382 July 19, 2022 07:13 AM [facility] CBC Specimen Type: BLOOD No comment entered. Ordering Provider: MACKENZIE COTTER Report Released Date/Time: July 18, 2022 05:40 PM Reporting Lab: [facility] [address] Performing Lab: [facility] [address] WBC 7.73 4.0-11.0 RBC 2.42 L 4.6-6.2 HGB 8.2 L 13.5-17.9 HCT 23.8 L 41-54 MCV 98.3 80-100 MCH 33.9 H 27-33 MCHC 34.5 32.0-37.5 PLT 155 150-400 MPV 9.6 7.4-10.4 RDW 13.5 11.5-14.5 July 19, 2022 05:44 AM [facility] FINGERSTICK GLUCOSE Specimen Type: BLOOD Comment: Save Result Nurse Notified Ordering Provider: MACKENZIE COTTER Report Released Date/Time: July 19, 2022 11:54 AM Reporting Lab: [facility] [address] Performing Lab: [facility] [address] FINGERSTICK GLUCOSE 137 70-100 July 18, 2022 10:51 PM [facility] FINGERSTICK GLUCOSE Specimen Type: BLOOD Comment: Save Result Nurse Notified Ordering Provider: MACKENZIE COTTER Report Released Date/Time: July 18, 2022 11:06 PM Reporting Lab: [facility] [address] Performing Lab: [facility] [address] FINGERSTICK GLUCOSE 163 70-100 July 17, 2022 06:51 AM [facility] BASIC METABOLIC PANEL+MG Specimen Type: PLASMA No comment entered. Ordering Provider: DANG VALLE Report Released Date/Time: July 16, 2022 09:37 AM Reporting Lab: [facility] [address] Performing Lab: [facility] [address] CREATININE 0.8 0.7-1.2 UREA NITROGEN 23 8-26 GLUCOSE 107 H 70-100 SODIUM 139 136-145 POTASSIUM 3.9 3.5-5.1 CHLORIDE 106 98-107 CO2 28 22-29 CALCIUM 9.1 8.4-10.2 MAGNESIUM 1.9 1.6-2.6 ANION GAP 5 5-15 .CREAT EGFR(CKD-EPI) >90 See_Commen t July 17, 2022 06:51 AM [facility] PROTHROMBIN TIME/INR Specimen Type: PLASMA No comment entered. Ordering Provider: DANG VALLE R Report Released Date/Time: July 16, 2022 09:37 AM Reporting Lab: [facility] [address] Performing Lab: [facility] [address] .INR 1.0 0.8-1.1 .PT 11.5 9.4-12.5 July 17, 2022 06:51 AM [facility] CBC Specimen Type: BLOOD No comment entered. Ordering Provider: DANG VALLE R Report Released Date/Time: July 16, 2022 09:37 AM Reporting Lab: [facility] [address] Performing Lab: [facility] [address] WBC 6.05 4.0-11.0 RBC 3.77 L 4.6-6.2 HGB 12.7 L 13.5-17.9 HCT 36.0 L 41-54 MCV 95.5 80-100 MCH 33.7 H 27-33 MCHC 35.3 32.0-37.5 PLT 179 150-400 MPV 9.4 7.4-10.4 RDW 13.2 11.5-14.5 July 13, 2022 11:22 AM [facility] COVID-19 AND FLU/RSV DIAG PANEL(CEPHEID) Specimen Typ e: NASOPHARYNGEAL Comment: Cepheid GeneXpert (618) Ordering Provider: WHITNEY ANDERSON Report Released Date/Time: July 13, 2022 11:04 AM Reporting Lab: [facility] [address] Performing Lab: [facility] [address] COVID-19 (CEPHEID) Not Detected Not Detected INFLUENZA A (PCR) Not Detected Not Detected INFLUENZA B (PCR) Not Detected Not Detected RSV (PCR) Not Detected Not Detected July 13, 2022 11:00 AM [facility] C-REACTIVE PROTEIN Specimen Type: SERUM Comment: Automated Differential Performed Ordering Provider: WHITNEY ANDERSON Report Released Date/Time: July 13, 2022 11:04 AM Reporting Lab: [facility] [address] Performing Lab: [facility] [address] C-REACTIVE PROTEIN 1.17 <5.00 July 13, 2022 11:00 AM [facility] PROTHROMBIN TIME/INR Specimen Type: PLASMA No comment entered. Ordering Provider: WHITNEY ANDERSON Report Released Date/Time: July 13, 2022 11:04 AM Reporting Lab: [facility] [address] Performing Lab: [facility] [address] .INR 0.9 0.8-1.1 .PT 11.1 9.4-12.5 July 13, 2022 11:00 AM [facility] SED RATE Specimen Type: BLOOD No comment entered. Ordering Provider: WHITNEY ANDERSON Report Released Date/Time: July 13, 2022 11:04 AM Reporting Lab: [facility] [address] Performing Lab: [facility] [address] SED RATE 10 5-15 July 13, 2022 11:00 AM [facility] CBC & DIFF Specimen Type: BLOOD Comment: Automated Differential Performed Ordering Provider: WHITNEY ANDERSON Report Released Date/Time: July 13, 2022 11:04 AM Reporting Lab: [facility] [address] Performing Lab: [facility] [address] WBC 8.82 4.0-11.0 RBC 3.89 L 4.6-6.2 [...] 0.03 0-0.1 July 13, 2022 11:00 AM [facility] COMPREHENSIVE METABOLIC PANEL+MG Specimen Type: PLASMA Comment: Automated Differential Performed Ordering Provider: WHITNEY ANDERSON Report Released Date/Time: July 13, 2022 11:04 AM Reporting Lab: [facility] [address] Performing Lab: [facility] [address] CREATININE 1.0 0.7-1.2 UREA NITROGEN 16 8-26 [...] Source July 13, 2022 11:25 PM [facility] July 13, 2022 11:18 PM 97.8 F 60 /min 169/90 mm[Hg] 20 /min 96 % 7 [facility] July 13, 2022 07:29 PM 97.9 F 64 /min 152/78 mm[Hg] 18 /min 93 % 0 [facility] July 13, 2022 06:00 PM 4 [facility] July 13, 2022 05:10 PM 8 [facility] Social History: Smoking [...] 10, 2022 09:15 AM VA-TOBACCO FORMER USER [facility] Tobacco Use History This section includes a history of the smoking, or tobacco-related health factors, that were collected on or before the date of the Encounter. The data comes from the [place] facility where the Encounter took place. Date/Time Smoking Status/Tobacco Use Comment F acility May 10, 2022 09:15 AM VA-TOBACCO QUIT 15 YRS OR MORE [facility] May 11, 2021 09:15 AM VA-TOBACCO FORMER USER [facility] May 11, 2021 09:15 AM VA-TOBACCO QUIT 15 YRS OR MORE [facility] Nov 22, 2018 01:36 PM VA-TOBACCO NEVER USED [facility] Nov 12, 2017 07:35 AM FORMER TOBACCO USER 7Y OR GREATE R [facility] Nov 06, 2016 09:05 AM FORMER TOBACCO USER 7Y OR GREATE R [facility] Sep 27, 2015 09:42 AM FORMER TOBACCO USER 7Y OR GREATE R [facility] Sep 25, 2014 07:55 AM FORMER TOBACCO USER 7Y OR GREATE R [facility] Sep 08, 2013 07:48 AM FORMER TOBACCO USER 7Y OR GREATE R [facility] July 09, 2012 09:20 AM FORMER TOBACCO USE >1Y <7Y [facility] Jun 06, 2011 07:53 AM FORMER TOBACCO USE >1Y <7Y [facility] Sep 09, 2009 03:03 PM FORMER TOBACCO USE >1Y <7Y [facility] Aug 11, 2008 01:06 PM FORMER TOBACCO USE <1Y [facility] Sep 19, 2007 02:52 PM CURRENT TOBACCO USER [facility] Sep 03, 2006 03:32 PM CURRENT TOBACCO USER [facility] Advance Directives: All historical and current [...] Mar 18, 2003 ADVANCE DIRECTIVE FARHAT MELGAR [facility] Radiology Reports: [...] 07:50 AM CHEST 1 VIEW: MARYJO WAGNER [id number] -1950 M Exm Date: JULY 20, 2022@07:50 Req Phys: MACKENZIE COTTER Pat Loc: 07-20-2022@08:26 Img Loc: MAIN X-RAY Service: PRIMARY CARE - MED OFFICE (Case [id number] COMPLETE) CHEST 1 VIEW (RAD Detailed) CPT:79360 Proc Modifiers : PORTABLE EXAM Reason for Study: see below. thanks. Clinical History: [place] IS NOT under investigation for COVID-19 or is COVID-19 negative Please further evaluate for acute airspace disease given o2 requirement. Thanks. Responsible provider name and phone number to notify for critical findings if other than user placing the order and pager listed below: User placing orders pager: [phone] same LAST CREATININE 0.9 (07/19/22) Report Status: Verified Date Reported: JULY 20, 2022 Date Verified: JULY 20, 2022 Smalltalk Developer E-Sig:/ES/JAMIE MIGUEL MD Report: EXAM: CHEST [...] pager listed below: User placing orders pager: [phone] same LAST CREATININE 0. COMPARISON: Chest CT [...] Primary Interpreting Staff: JAMIE MIGUEL MD, RADIOLOGIST (Smalltalk Developer) /JAMIE FRANCES [facility] July 18, 2022 12:59 PM ELBOW LEFT 2 VIEWS: MARYJO WAGNER [id number] -1950 M Exm Date: JULY 18, 2022@12:59 Req Phys: LEIF BALBUENA Loc: OR-PACU/07-18-2022@13:59 Img Loc: MAIN X-RAY Service: ZZSURGICAL SERVICE (Case [id number] COMPLETE) ELBOW LEFT 2 VIEWS (RAD Detailed) CPT:88126 Proc Modifiers : PORTABLE EXAM, OPERATING ROOM EXAM Reason for Study: post-op Clinical History: post-op Report Status: Verified Date Reported: JULY 18, 2022 Date Verified: JULY 18, 2022 Smalltalk Developer E-Sig:/ES/JAKUB LEE MD Report: EXAM: ELBOW [...] Primary Interpreting Staff: JAKUB LEE MD, RADIOLOGIST (Smalltalk Developer) /JAKUB LUCERO [facility] July 18, 2022 07:30 AM FLUORO UP TO 1 HR PHYSICIAN TIME: MARYJO WAGNER [id number] -1950 M Exm Date: JULY 18, 2022@07:30 Req Phys: LEIF BALBUENA Loc: OR-PACU/07-18-2022@13:14 Img Loc: MAIN X-RAY Service: PRIMARY CARE - MED OFFICE (Case [id number] COMPLETE) FLUORO UP TO 1 HR PHYSICIAN TIME (RAD Detailed) CPT:67989 Proc Modifiers : PORTABLE EXAM, OPERATING ROOM EXAM, LEFT Reason for Study: Left distal humerous ORIF Clinical History: OR 7 Pathologic distal humeral shaft fracture Responsible provider name and phone number to notify for critical findings if other than user placing the order and pager listed below: User placing orders pager: Henry BALBUENA [phone] LAST CREATININE 0.8 (07/17/22) Report Status: Electronically Filed Date Reported: JULY 18, 2022 Report: Impression: Please see the full report for this procedure in [facility] patient progress notes. Fluoro guidance was provided during this procedure, but the study was not reviewed or verified by a [facility] radiologist. The radiation exposure dose has been recorded in the patient's chart. If you are unable to view this data, please contact the Imaging Department. VERIFIED BY: / *ELECTRONICALLY FILED* [facility] July 17, 2022 03:28 PM ABDOMINAL AORTOGRAM (P): BERNARDMARYJO CAVAZOS [id number] -1950 M Exm Date: JULY 17, 2022@15:28 Req Phys: MALCOM LANGLEY [facility] Loc: 07-17-2022@15:54 Img Loc: INTERVENTIONAL RADIOLOGY Service: PRIMARY CARE - MED OFFICE (Case [id number] COMPLETE) ANGIOGRAPHY EXTREMITY UNILAT S&I (ANI Detailed) CPT:04141 Reason for Study: codes (Case 528 COMPLETE) IR AORTOGRAPHY ABDOMINAL W/O RUNO(ANI Detailed) CPT:98847 (Case 529 COMPLETE) IR FOREIGN BODY REMOVAL INTRAVASC(ANI Detailed) CPT:65739 (Case 532 COMPLETE) IR NEEDLE/INTRACATH PLACEMENT EXT(ANI Detailed) CPT:17575 (Case 533 COMPLETE) IR PLACEMENT OCCLUSIVE DEVICE SAM(ANI Detailed) CPT:G0269 Clinical History: codes Report Status: Verified Date Reported: JULY 17, 2022 Date Verified: JULY 17, 2022 Smalltalk Developer E-Sig:/ES/MALCOM LANGLEY MD Report: RADIOLOGIST: Malcom [...] angiogram and runoff. 12. Closure of right NETWORKING ADMINISTRATOR with Angio-Seal device. HISTORY: Metastatic renal [...] Sheath removed over guidewire and a 5 greenlandic vascular sheath advanced over guidewire into the artery. An H1 catheter was advanced along with the guidewire into the thoracic arch and the left subclavian artery was selected. Catheter and the guidewire were advanced into the left brachial artery. The 5 Guyanese sheath was exchanged for a 6 Guyanese sheath that was advanced into the left [...] arteries. Sheath and catheters were removed and NETWORKING ADMINISTRATOR arteriotomy was closed using Angioseal. There is patent hemostasis. No bleeding or hematoma noted. Sterile dressing applied. 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 Primary Interpreting Staff: MALCOM LANGLEY MD, INTERVENTIONAL RADIOLOGIST (Smalltalk Developer) /MALCOM HE [facility] July 17, 2022 07:30 AM RENAL ARTERY EMBOLIZATION (P): MARYJO WAGNER [id number] -1950 M Exm Date: JULY 17, 2022@07:30 Req Phys: WESTON VASQUEZ Pat Loc: 07-17-2022@15:46 Img Loc: INTERVENTIONAL RADIOLOGY Service: PRIMARY CARE - MED OFFICE (Case 130 COMPLETE) IR TRANSCATH EMBOLIZATION W/ANGIO(ANI Detailed) CPT:73337 Reason for Study: embolization of RCC mets to left humerus (Case 131 COMPLETE) IR ARTERIAL EMBOLIZATION OTHER TH(ANI Detailed) CPT:78845 (Case 132 COMPLETE) IR US GUIDANCE VASCULAR ACCESS (ANI Detailed) CPT:47236 Clinical History: IS NOT under investigation for [...] pager listed below: User placing orders pager: [phone] LAST CREATININE 1.0 (07/13/22) Report Status: Verified Date Reported: JULY 17, 2022 Date Verified: JULY 17, 2022 Smalltalk Developer E-Sig:/ES/MALCOM LANGLEY MD Report: RADIOLOGIST: Malcom [...] angiogram and runoff. 12. Closure of right NETWORKING ADMINISTRATOR with Angio-Seal device. HISTORY: Metastatic renal [...] Sheath removed over guidewire and a 5 greenlandic vascular sheath advanced over guidewire into the artery. An H1 catheter was advanced along with the guidewire into the thoracic arch and the left subclavian artery was selected. Catheter and the guidewire were advanced into the left brachial artery. The 5 Guyanese sheath was exchanged for a 6 Guyanese sheath that was advanced into the left [...] arteries. Sheath and catheters were removed and NETWORKING ADMINISTRATOR arteriotomy was closed using Angioseal. There is patent hemostasis. No bleeding or hematoma noted. Sterile dressing applied. 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 Primary Interpreting Staff: MALCOM LANGLEY MD, INTERVENTIONAL RADIOLOGIST (Smalltalk Developer) /MALCOM HE [facility] July 14, 2022 06:44 AM HUMERUS LEFT MINIMUM 2 VIEWS: MARYJO WAGNER [id number] -1950 M Exm Date: JULY 14, 2022@06:44 Req Phys: WESTON VASQUEZ [facility] Loc: 07-14-2022@07:13 Img Loc: MAIN X-RAY Service: PRIMARY CARE - MED OFFICE (Case [id number] COMPLETE) HUMERUS LEFT MINIMUM 2 VIEWS (RAD Detailed) CPT:15742 Reason for Study: post reduction Clinical History: Report Status: Verified Date Reported: JULY 14, 2022 Date Verified: JULY 14, 2022 Smalltalk Developer E-Sig: Report: HUMERUS LEFT MINIMUM 2 [...] less likely. READING PHYSICIAN: Xavier Merrill MD -[id number] 07/14/2022 5:11 PDT [facility] National Teleradiology Program [phone] (For Medical Practitioner Use Only) Attention Patients / Veterans: If you have questions or concerns about these test results, please contact your ordering provider or primary care team. Primary Interpreting Staff: RADIOLOGY,OUTSIDE SERVICE, Staff Physician / RADIOLOGY,OUTSIDE SERVICE [facility] July 13, 2022 10:07 AM HUMERUS LEFT MINIMUM 2 VIEWS: MARYJO WAGNER [id number] -1950 M Ex Date: JULY 13, 2022@10:07 Req Phys: WHITNEY ANDERSON Pat Loc: [facility] EMERGENCY DEPT WALK-IN (Re Img Loc: MAIN X-RAY Service: Unknown (Case [id number] COMPLETE) HUMERUS LEFT MINIMUM 2 VIEWS (RAD Detailed) CPT:27296 Proc Modifiers : LEFT Reason for Study: [...] pager listed below: User placing orders pager: [phone] LAST CREATININE 0.8 (05/10/22) Report Status: Verified Date Reported: JULY 13, 2022 Date Verified: JULY 13, 2022 Smalltalk Developer E-Sig:/ES/ALBINA COWAN MD, FACR, CCD Report: [...] Staff: ALBINA COWAN MD, FACR, STAFF RADIOLOGIST (Smalltalk Developer) /BSF ALBINA COWAN [facility] July 13, 2022 10:07 AM FOREARM LEFT 2 VIEWS: MARYJO WAGNER [id number] -1950 M Exm Date: JULY 13, 2022@10:07 Req Phys: WHITNEY ANDERSON Pat Loc: [facility] EMERGENCY DEPT WALK-IN ( Img Loc: MAIN X-RAY Service: Unknown (Case [id number] COMPLETE) FOREARM LEFT 2 VIEWS (RAD Detailed) CPT:56108 Proc Modifiers : LEFT Reason for Study: [...] pager listed below: User placing orders pager: [phone] LAST CREATININE 0.8 (05/10/22) Report Status: Verified Date Reported: JULY 13, 2022 Date Verified: JULY 13, 2022 Smalltalk Developer E-Sig:/ES/ALBINA COWAN MD, FACR, CCD Report: [...] Staff: ALBINA COWAN MD, FACR, STAFF RADIOLOGIST (Smalltalk Developer) /ALBINA NATHAN [facility] July 13, 2022 10:07 AM ELBOW LEFT 3 OR MORE VIEWS: MARYJO WAGNER [id number] -1950 M Exm Date: JULY 13, 2022@10:07 Req Phys: MONICAWHITNEY MARIN Pat Loc: [facility] EMERGENCY DEPT WALK-IN ( Img Loc: MAIN X-RAY Service: Unknown (Case [id number] COMPLETE) ELBOW LEFT 3 OR MORE VIEWS (RAD Detailed) CPT:69672 Proc Modifiers : LEFT Reason for Study: [...] pager listed below: User placing orders pager: [phone] LAST CREATININE 0.8 (05/10/22) Report Status: Verified Date Reported: JULY 13, 2022 Date Verified: JULY 13, 2022 Smalltalk Developer E-Sig:/ES/ALBINA COWAN MD, FACR, CCD Report: [...] Staff: ALBINA COWAN MD, FACR, STAFF RADIOLOGIST (Smalltalk Developer) /ALBINA NATHAN [facility] Pathology Reports: +/- 30 days of [...] COSIGNER: URGENCY: STATUS: COMPLETED $APHDR Reporting Lab: [facility] [CLIA# [id number]] [place] [address] - - - - - - - [...] SANDOVAL STAFF PATHOLOGIST, PATHOLOGY & LABORATORY [facility] Signed July 21, 2022@14:37 Performing Laboratory: Surgical Pathology Report Performed By: [facility] [CLIA# [id number]] [place] [address] $FTR - - - - - - - - - - - - - - - - - - - - - - - - - - - - - - - - - - - - - - - - (End of report) JIAN SANDOVAL MD [facility] Date July 21, 2022 - - - - - - - - - - - - - - - - - - - - - - - - - - - - - - - - - - - - - - - - MARYJO WAGNER STANDARD FORM 515 ID:[id number] SEX:M :1950 AGE: 72 LOC:[facility] PATHOLOGY PRO FEE ADM:June DX:PATHOLOGIC FX LF HUMERUS PCP: Leif Balbuena MD /sangita/ JIAN SANDOVAL STAFF PATHOLOGIST, PATHOLOGY & LABORATORY MED [facility] Signed: 07/21/2022 14:37 JIAN SANDOVAL [facility] Encounter Notes: All associated encounter notes This section contains the clinical notes associated to the Encounter. Date/Time Encounter Note(s) Provider Source July 13, 2022 01:00 AM CRITICAL CARE UNIT NOTE: LOCAL TITLE: [facility] INPATIENT FLOWSHEET STANDARD TITLE: CRITICAL CARE UNIT NOTE DATE OF NOTE: JULY 13, 2022@01:00 ENTRY DATE: JULY 14, 2022@14:38:16 AUTHOR: JAZ,SHARRI EXP COSIGNER: URGENCY: STATUS: COMPLETED This is a place casey only. Please see [facility] Imaging to view document. /es/ [employer] SYSTEM ICU DOCUMENT IMPORT Signed: 07/14/2022 14:38 SYSTEM,[employer]My[employer] [facility] July 13, 2022 01:00 AM CRITICAL CARE UNIT NOTE: LOCAL TITLE: [facility] RESPIRATORY THERAPY FLOWSHEET STANDARD TITLE: CRITICAL CARE UNIT NOTE DATE OF NOTE: JULY 13, 2022@01:00 ENTRY DATE: JULY 14, 2022@15:11:24 AUTHOR: JAZOrderMyGear EXP COSIGNER: URGENCY: STATUS: COMPLETED This is a place casey only. Please see [facility] Imaging to view document. /es/ [employer]-Yes[employer] SYSTEM ICU DOCUMENT IMPORT Signed: 07/14/2022 15:11 SYSTEM,[employer] [facility]
--- OUTSIDE RECORDS SUMMARY | 2023-03-24 08:58 | XMS_ITS ---
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 of Vetera [facility] Address [address] [place] [address] Support Name Relationship Address Phone DOREEN WAGNER Next of Kin [phone] [place] [phone] DOREEN Emergency Contact [phone] [place] [phone] Insurance Providers: All historical and current [...] Policy [place] HUMANA MCR (WNR) MEDICARE ADVANTAGE [facility] (R) June 26, 2016 [id number] JOAN WAGNER KARSTEN PATIENT HU[employer] MCR (WNR) MEDICARE ADVANTAGE [facility] (WNR) June 26, 2016 [id number] [phone] JOAN WAGNER KARSTEN PATIENT HUMA[employer] MCR (WNR) MEDICARE ADVANTAGE [facility] (WNR) June 26, 2016 [id number] [phone] JOAN WAGNER PATIENT Selected Encounter This section includes the information on record at DC for the Encounter. Date/Time Encounter Type Encounter Description Reason Pro vider Source July 15, 2022 12:22 AM Inpatient Visit DAILY HOSPITALIZATION DATA [facility] Encounter Template Text not used by DC Plan of Treatment: Future Appointments (+ 6 [...] 20 appointments. [facility] Appointment Date/Time Appointment Type Appointme nt Facility Name Jul 28, 2022 10:45 AM [facility] Aug 13, 2022 06:13 PM AMBULATORY - MEDICINE [facility] Aug 23, 2022 09:30 AM AMBULATORY - SURGERY [facility] Aug 23, 2022 09:45 AM [facility] Aug 23, 2022 10:30 AM AMBULATORY - MEDICINE [facility] Aug 23, 2022 10:31 AM AMBULATORY - MEDICINE [facility] Sep 06, 2022 10:15 AM AMBULATORY - SURGERY [facility] Oct 25, 2022 07:00 AM [facility] Oct 25, 2022 07:30 AM AMBULATORY - SURGERY [facility] Oct 25, 2022 09:00 AM AMBULATORY - SURGERY [facility] Active, Pending, and Scheduled Orders This section includes a listing of several types of active, pending, and scheduled orders, including clinic medications orders, diagnostic test orders, procedure orders and consult orders; where the start date of the order is 45 days before the date of the Encounter or 45 days after the date of theEncounter. The data comes from all [facility] hospital. Test Date/Time Test Type Test Details Facility Name Jun 12, 2022 12:00 AM Laboratory - Chemistry Order CBC & DIFF BLOOD ONCO SP ONCE [facility] Jun 12, 2022 12:00 AM Laboratory - Chemistry Order COMPREHENSIVE METABOLIC PANEL+MG PLASMA ONCO SP [facility] Jun 12, 2022 12:00 AM Laboratory - Chemistry Order TSH W/REFLEX TO FREE T4 PLASMA ONCO SP ONCE [facility] July 14, 2022 12:00 AM Laboratory - Blood Bank Order ABO/RH - LAB BLOOD [facility] July 14, 2022 02:05 PM Laboratory - Blood Bank Order TYPE & SCREEN - LAB BLOOD [facility] Aug 07, 2022 11:23 AM Laboratory - Chemistry Order DRUG SCREEN PANEL,URINE URINE [facility] Aug 23, 2022 10:47 AM Laboratory - Chemistry Order URINALYSIS URINE ER STAT [facility] Lab Results: +/- 30 days of the encounter This section includes the Chemistry and Hematology Lab Results on record with DC for the patient. Radiology Reports and Pathology Reports are provided separately, in subsequent sections. Lab Results This section contains the Chemistry/Hematology Results that were resulted 30 days before or 30 daysafter the date of the Encounter. Date/Time Source Result Type Result - Unit Interpretation Reference Range Comment July 19, 2022 04:40 PM [facility] FINGERSTICK GLUCOSE Specimen Type: BLOOD Comment: Save Result Nurse Notified Ordering Provider: MACKENZIE COTTER Report Released Date/Time: July 19, 2022 05:00 PM Reporting Lab: [facility] [id number] Performing Lab: [facility] [address] FINGERSTICK GLUCOSE 132 70-100 July 19, 2022 07:13 AM [facility] COMPREHENSIVE METABOLIC PANEL+MG Specimen Type: PLASMA No comment entered. Ordering Provider: MACKENZIE COTTER Report Released Date/Time: July 18, 2022 05:40 PM Reporting Lab: [facility] [address] Performing Lab: [facility] [address] CREATININE 0.9 0.7-1.2 UREA NITROGEN 24 8-26 [...] See_Commen t July 19, 2022 07:13 AM [facility] IRON GROUP Specimen Type: SERUM No comment entered. Ordering Provider: MACKENZIE COTTER Report Released Date/Time: July 18, 2022 05:40 PM Reporting Lab: [facility] [address] Performing Lab: [facility] [address] IRON 28 L 65-175 TIBC,CALCULATE D 223 L 250-425 FERRITIN 73.7 21.8-274.7 IRON SATURATION 13 L 20-50 TRANSFERRIN 178 163-382 July 19, 2022 07:13 AM [facility] CBC Specimen Type: BLOOD No comment entered. Ordering Provider: MACKENZIE COTTER Report Released Date/Time: July 18, 2022 05:40 PM Reporting Lab: [facility] [address] Performing Lab: [facility] [address] WBC 7.73 4.0-11.0 RBC 2.42 L 4.6-6.2 HGB 8.2 L 13.5-17.9 HCT 23.8 L 41-54 MCV 98.3 80-100 MCH 33.9 H 27-33 MCHC 34.5 32.0-37.5 PLT 155 150-400 MPV 9.6 7.4-10.4 RDW 13.5 11.5-14.5 July 19, 2022 05:44 AM [facility] FINGERSTICK GLUCOSE Specimen Type: BLOOD Comment: Save Result Nurse Notified Ordering Provider: MACKENZIE COTTER Report Released Date/Time: July 19, 2022 11:54 AM Reporting Lab: [facility] [address] Performing Lab: [facility] [address] FINGERSTICK GLUCOSE 137 70-100 July 18, 2022 10:51 PM [facility] FINGERSTICK GLUCOSE Specimen Type: BLOOD Comment: Save Result Nurse Notified Ordering Provider: MACKENZIE COTTER Report Released Date/Time: July 18, 2022 11:06 PM Reporting Lab: [facility] [address] Performing Lab: [facility] [address] FINGERSTICK GLUCOSE 163 70-100 July 17, 2022 06:51 AM [facility] BASIC METABOLIC PANEL+MG Specimen Type: PLASMA No comment entered. Ordering Provider: DANG VALLE Report Released Date/Time: July 16, 2022 09:37 AM Reporting Lab: [facility] [address] Performing Lab: [facility] [address] CREATININE 0.8 0.7-1.2 UREA NITROGEN 23 8-26 GLUCOSE 107 H 70-100 SODIUM 139 136-145 POTASSIUM 3.9 3.5-5.1 CHLORIDE 106 98-107 CO2 28 22-29 CALCIUM 9.1 8.4-10.2 MAGNESIUM 1.9 1.6-2.6 ANION GAP 5 5-15 .CREAT EGFR(CKD-EPI) >90 See_Commen t July 17, 2022 06:51 AM [facility] PROTHROMBIN TIME/INR Specimen Type: PLASMA No comment entered. Ordering Provider: DANG VALLE R Report Released Date/Time: July 16, 2022 09:37 AM Reporting Lab: [facility] [address] Performing Lab: [facility] [address] .INR 1.0 0.8-1.1 .PT 11.5 9.4-12.5 July 17, 2022 06:51 AM [facility] CBC Specimen Type: BLOOD No comment entered. Ordering Provider: DNAG VALLE R Report Released Date/Time: July 16, 2022 09:37 AM Reporting Lab: [facility] [address] Performing Lab: [facility] [address] WBC 6.05 4.0-11.0 RBC 3.77 L 4.6-6.2 HGB 12.7 L 13.5-17.9 HCT 36.0 L 41-54 MCV 95.5 80-100 MCH 33.7 H 27-33 MCHC 35.3 32.0-37.5 PLT 179 150-400 MPV 9.4 7.4-10.4 RDW 13.2 11.5-14.5 July 13, 2022 11:22 AM [facility] COVID-19 AND FLU/RSV DIAG PANEL(CEPHEID) Specimen Typ e: NASOPHARYNGEAL Comment: Cepheid GeneXpert (618) Ordering Provider: WHITNEY ANDERSON Report Released Date/Time: July 13, 2022 11:04 AM Reporting Lab: [facility] [address] Performing Lab: [facility] [address] COVID-19 (CEPHEID) Not Detected Not Detected INFLUENZA A (PCR) Not Detected Not Detected INFLUENZA B (PCR) Not Detected Not Detected RSV (PCR) Not Detected Not Detected July 13, 2022 11:00 AM [facility] C-REACTIVE PROTEIN Specimen Type: SERUM Comment: Automated Differential Performed Ordering Provider: WHITNEY ANDERSON Report Released Date/Time: July 13, 2022 11:04 AM Reporting Lab: [facility] [address] Performing Lab: [facility] [address] C-REACTIVE PROTEIN 1.17 <5.00 July 13, 2022 11:00 AM [facility] PROTHROMBIN TIME/INR Specimen Type: PLASMA No comment entered. Ordering Provider: WHITNEY ANDERSON Report Released Date/Time: July 13, 2022 11:04 AM Reporting Lab: [facility] [address] Performing Lab: [facility] [address] .INR 0.9 0.8-1.1 .PT 11.1 9.4-12.5 July 13, 2022 11:00 AM [facility] SED RATE Specimen Type: BLOOD No comment entered. Ordering Provider: WHITNEY ANDERSON Report Released Date/Time: July 13, 2022 11:04 AM Reporting Lab: [facility] [address] Performing Lab: [facility] [address] SED RATE 10 5-15 July 13, 2022 11:00 AM [facility] CBC & DIFF Specimen Type: BLOOD Comment: Automated Differential Performed Ordering Provider: WHITNEY ANDERSON Report Released Date/Time: July 13, 2022 11:04 AM Reporting Lab: [facility] [address] Performing Lab: [facility] [address] WBC 8.82 4.0-11.0 RBC 3.89 L 4.6-6.2 [...] 0.03 0-0.1 July 13, 2022 11:00 AM [facility] COMPREHENSIVE METABOLIC PANEL+MG Specimen Type: PLASMA Comment: Automated Differential Performed Ordering Provider: WHITNEY ANDERSON Report Released Date/Time: July 13, 2022 11:04 AM Reporting Lab: [facility] [address] Performing Lab: [facility] [address] CREATININE 1.0 0.7-1.2 UREA NITROGEN 16 8-26 [...] Height Weight Body Mass Index Source July 15, 2022 11:03 PM 97.9 F 61 /min 136/73 mm[Hg] 19 /min 95 % 0 [facility] July 15, 2022 09:35 PM 7 [facility] July 15, 2022 08:35 PM 7 [facility] July 15, 2022 07:48 PM 7 [facility] July 15, 2022 07:47 PM 8 [facility] Social History: Smoking Status (Most current) and Tobacco Use (All prior to encounter date) This section includes the most current, and the historical, smoking and tobacco- related health factors from the [place] facility where the Encounter took place. Current Smoking Status This section includes the most current smoking, or tobacco-related health factor, from the [place] facility where the Encounter took place. Date/Time Current Smoking Status Comment Facil ity May 10, 2022 09:15 AM VA-TOBACCO FORMER USER [facility] Tobacco Use History This section includes a history of the smoking, or tobacco-related health factors, that were collected on or before the date of the Encounter. The data comes from the [place] facility where the Encounter took place. Date/Time Smoking Status/Tobacco Use Comment F acility May 10, 2022 09:15 AM VA-TOBACCO QUIT 15 YRS OR MORE [facility] May 11, 2021 09:15 AM VA-TOBACCO FORMER USER [facility] May 11, 2021 09:15 AM VA-TOBACCO QUIT 15 YRS OR MORE [facility] Nov 22, 2018 01:36 PM VA-TOBACCO NEVER USED [facility] Nov 12, 2017 07:35 AM FORMER TOBACCO USER 7Y OR GREATE R [facility] Nov 06, 2016 09:05 AM FORMER TOBACCO USER 7Y OR GREATE R [facility] Sep 27, 2015 09:42 AM FORMER TOBACCO USER 7Y OR GREATE R [facility] Sep 25, 2014 07:55 AM FORMER TOBACCO USER 7Y OR GREATE R [facility] Sep 08, 2013 07:48 AM FORMER TOBACCO USER 7Y OR GREATE R [facility] July 09, 2012 09:20 AM FORMER TOBACCO USE >1Y <7Y [facility] Jun 06, 2011 07:53 AM FORMER TOBACCO USE >1Y <7Y [facility] Sep 09, 2009 03:03 PM FORMER TOBACCO USE >1Y <7Y [facility] Aug 11, 2008 01:06 PM FORMER TOBACCO USE <1Y [facility] Sep 19, 2007 02:52 PM CURRENT TOBACCO USER [facility] Sep 03, 2006 03:32 PM CURRENT TOBACCO USER [facility] Advance Directives: All historical and current Section Date Range: From patient's date of to the date document was created. This section includes ALL of a patient's completed or amended DC Advance and Rescinded Directives. The entries below indicate that a directive exists for the patient, but an actual copy is not included with this document. The data comes from all [facility]. Date Advance Directives Provider Source [...] the Encounter. The data comes from all [place] treatment facilities. Date/Time Radiology Report Provider Source July 20, 2022 07:50 AM CHEST 1 VIEW: MARYJO WAGNER [id number] -1950 M Exm Date: JULY 20, 2022@07:50 Req Phys: MACKENZIE COTTER [facility] Pat Loc: 07-20-2022@08:26 Img Loc: MAIN X-RAY Service: PRIMARY CARE - MED OFFICE (Case [id number] COMPLETE) CHEST 1 VIEW (RAD Detailed) CPT:70373 Proc Modifiers : PORTABLE EXAM Reason for Study: see below. thanks. Clinical History: IS NOT under investigation for COVID-19 or is COVID-19 negative Please further evaluate for acute airspace disease given o2 requirement. Thanks. Responsible provider name and phone number to notify for critical findings if other than user placing the order and pager listed below: User placing orders pager: [phone] same LAST CREATININE 0.9 (07/19/22) Report Status: Verified Date Reported: JULY 20, 2022 Date Verified: JULY 20, 2022 Stave Block Splitter E-Sig:/ES/JAMIE MIGUEL MD Report: EXAM: CHEST 1 [...] pager listed below: User placing orders pager: [phone] same LAST CREATININE 0. COMPARISON: Chest CT [...] Primary Interpreting Staff: JAMIE MIGUEL MD, RADIOLOGIST (Stave Block Splitter) /JAMIE FRANCES [facility] July 18, 2022 12:59 PM ELBOW LEFT 2 VIEWS: MARYJO WAGNER [id number] -1950 M Exm Date: JULY 18, 2022@12:59 Req Phys: LEIF BALBUENA Pat Loc: OR-PACU/07-18-2022@13:59 Img Loc: MAIN X-RAY Service: ZZSURGICAL SERVICE (Case [id number] COMPLETE) ELBOW LEFT 2 VIEWS (RAD Detailed) CPT:79474 Proc Modifiers : PORTABLE EXAM, OPERATING ROOM EXAM Reason for Study: post-op Clinical History: post-op Report Status: Verified Date Reported: JULY 18, 2022 Date Verified: JULY 18, 2022 Stave Block Splitter E-Sig:/ES/JAKUB LEE MD Report: EXAM: ELBOW LEFT [...] Primary Interpreting Staff: JAKUB LEE MD, RADIOLOGIST (Stave Block Splitter) /[facility] JAKUB LEE [facility] July 18, 2022 07:30 AM FLUORO UP TO 1 HR PHYSICIAN TIME: MARYJO WAGNER [id number] -1950 M Exm Date: JULY 18, 2022@07:30 Req Phys: LEIF BALBUENA Loc: OR-PACU/07-18-2022@13:14 Img Loc: MAIN X-RAY Service: PRIMARY CARE - MED OFFICE (Case [id number] COMPLETE) FLUORO UP TO 1 HR PHYSICIAN TIME (RAD Detailed) CPT:94462 Proc Modifiers : PORTABLE EXAM, OPERATING ROOM EXAM, LEFT Reason for Study: Left distal humerous ORIF Clinical History: OR 7 Pathologic distal humeral shaft fracture Responsible provider name and phone number to notify for critical findings if other than user placing the order and pager listed below: User placing orders pager: Henry BALBUENA [phone] LAST CREATININE 0.8 (07/17/22) Report Status: Electronically [...] Imaging Department. VERIFIED BY: / *ELECTRONICALLY FILED* [facility] July 17, 2022 03:28 PM ABDOMINAL AORTOGRAM (P): BERNARDMARYJO DIRK [id number] -1950 M Exm Date: JULY 17, 2022@15:28 Req Phys: MALCOM LANGLEY Loc: 07-17-2022@15:54 Img Loc: INTERVENTIONAL RADIOLOGY Service: PRIMARY CARE - MED OFFICE (Case [id number] COMPLETE) ANGIOGRAPHY EXTREMITY UNILAT S&I (ANI Detailed) CPT:08707 Reason for Study: codes (Case 528 COMPLETE) IR AORTOGRAPHY ABDOMINAL W/O RUNO(ANI Detailed) CPT:93006 (Case 529 COMPLETE) IR FOREIGN BODY REMOVAL INTRAVASC(ANI Detailed) CPT:00972 (Case 532 COMPLETE) IR NEEDLE/INTRACATH PLACEMENT EXT(ANI Detailed) CPT:65870 (Case 533 COMPLETE) IR PLACEMENT OCCLUSIVE DEVICE SAM(ANI Detailed) CPT:G0269 Clinical History: codes Report Status: Verified Date Reported: JULY 17, 2022 Date Verified: JULY 17, 2022 Stave Block Splitter E-Sig:/ES/MALCOM LANGLEY MD Report: RADIOLOGIST: Malcom Langley [...] angiogram and runoff. 12. Closure of right SOFTWARE ENGINEERING MANAGER with Angio-Seal device. HISTORY: Metastatic renal [...] Sheath removed over guidewire and a 5 sinhala vascular sheath advanced over guidewire into the [...] arteries. Sheath and catheters were removed and SOFTWARE ENGINEERING MANAGER arteriotomy was closed using Angioseal. There is patent hemostasis. No bleeding or hematoma noted. Sterile dressing applied. 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 Primary Interpreting Staff: MALCOM LANGLEY MD, INTERVENTIONAL RADIOLOGIST (Stave Block Splitter) /MALCOM HE [facility] July 17, 2022 07:30 AM RENAL ARTERY EMBOLIZATION (P): MARYJO WAGNER [id number] -1950 M Exm Date: JULY 17, 2022@07:30 Req Phys: WESTON VASQUEZ Pat Loc: 07-17-2022@15:46 Img Loc: INTERVENTIONAL RADIOLOGY Service: PRIMARY CARE - MED OFFICE (Case [id number] COMPLETE) IR TRANSCATH EMBOLIZATION W/ANGIO(ANI Detailed) CPT:12759 Reason for Study: embolization of RCC mets to left humerus (Case 131 COMPLETE) IR ARTERIAL EMBOLIZATION OTHER TH(ANI Detailed) CPT:87778 (Case 132 COMPLETE) IR US GUIDANCE VASCULAR ACCESS (ANI Detailed) CPT:74671 Clinical History: [place] IS NOT under investigation for COVID-19 or [...] pager listed below: User placing orders pager: [phone] LAST CREATININE 1.0 (07/13/22) Report Status: Verified Date Reported: JULY 17, 2022 Date Verified: JULY 17, 2022 Stave Block Splitter E-Sig:/ES/MALCOM LANGLEY MD Report: RADIOLOGIST: Malcom Langley [...] angiogram and runoff. 12. Closure of right SOFTWARE ENGINEERING MANAGER with Angio-Seal device. HISTORY: Metastatic renal [...] Sheath removed over guidewire and a 5 sinhala vascular sheath advanced over guidewire into the [...] arteries. Sheath and catheters were removed and SOFTWARE ENGINEERING MANAGER arteriotomy was closed using Angioseal. There is patent hemostasis. No bleeding or hematoma noted. Sterile dressing applied. 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 Primary Interpreting Staff: MALCOM LANGLEY MD, INTERVENTIONAL RADIOLOGIST (Stave Block Splitter) /MALCOM HE [facility] July 14, 2022 06:44 AM HUMERUS LEFT MINIMUM 2 VIEWS: MARYJO WAGNER [id number] -1950 M Ex Date: JULY 14, 2022@06:44 Req Phys: PEDROHERBERTJAIRO [facility] Loc: 07-14-2022@07:13 Img Loc: MAIN X-RAY Service: PRIMARY CARE - MED OFFICE (Case [id number] COMPLETE) HUMERUS LEFT MINIMUM 2 VIEWS (RAD Detailed) CPT:45887 Reason for Study: post reduction Clinical History: Report Status: Verified Date Reported: JULY 14, 2022 Date Verified: JULY 14, 2022 Stave Block Splitter E-Sig: Report: HUMERUS LEFT MINIMUM 2 VIEWS HISTORY: post reduction COMPARISON: 07/13/2022 TECHNIQUE: 2 view(s) of the humerus, submitted to the [place] National Teleradiology Program (NTP) for interpretation. FINDINGS: [...] less likely. READING PHYSICIAN: Xavier Merrill MD -[id number] 07/14/2022 5:11 PDT [facility] National Teleradiology Program [phone] (For Medical Practitioner Use Only) Attention Patients / Veterans: If you have questions or concerns about these test results, please contact your ordering provider or primary care team. Primary Interpreting Staff: RADIOLOGY,OUTSIDE SERVICE, Staff Physician / RADIOLOGY,OUTSIDE SERVICE [facility] July 13, 2022 10:07 AM HUMERUS LEFT MINIMUM 2 VIEWS: MARYJO WAGNER [id number] -1950 M Ex Date: JULY 13, 2022@10:07 Req Phys: WHITNEY ANDERSON Pat Loc: [facility] EMERGENCY DEPT WALK-IN (Re Img Loc: MAIN X-RAY Service: Unknown (Case [id number] COMPLETE) HUMERUS LEFT MINIMUM 2 VIEWS (RAD Detailed) CPT:21913 Proc Modifiers : LEFT Reason for Study: L arm pain Clinical History: [place] IS NOT under investigation for COVID-19 or is COVID-19 negative Atraumatic left upper extremity pain that is located midshaft humerus distally to the mid forearm. Clinical concern for dislocation versus fracture versus bone mets Responsible provider name and phone number to notify for critical findings if other than user placing the order and pager listed below: User placing orders pager: [phone] LAST CREATININE 0.8 (05/10/22) Report Status: Verified Date Reported: JULY 13, 2022 Date Verified: JULY 13, 2022 Stave Block Splitter E-Sig:/ES/ALBINA COWAN MD, FACR, CCD Report: EXAMINATION: [...] Staff: ALBINA COWAN MD, FACR, STAFF RADIOLOGIST (Stave Block Splitter) /[facility] ALBINA COWAN [facility] July 13, 2022 10:07 AM ELBOW LEFT 3 OR MORE VIEWS: MARYJO WAGNER [id number] -1950 M Exm Date: JULY 13, 2022@10:07 Req Phys: WHITNEY ANDERSON Pat Loc: [facility] EMERGENCY DEPT WALK-IN (Re Img Loc: MAIN X-RAY Service: Unknown (Case [id number] COMPLETE) ELBOW LEFT 3 OR MORE VIEWS (RAD Detailed) CPT:51747 Proc Modifiers : LEFT Reason for Study: L arm pain Clinical History: [place] IS NOT under investigation for COVID-19 or is COVID-19 negative Atraumatic left upper extremity pain that is located midshaft humerus distally to the mid forearm. Clinical concern for dislocation versus fracture versus bone mets Responsible provider name and phone number to notify for critical findings if other than user placing the order and pager listed below: User placing orders pager: [phone] LAST CREATININE 0.8 (05/10/22) Report Status: Verified Date Reported: JULY 13, 2022 Date Verified: JULY 13, 2022 Stave Block Splitter E-Sig:/ES/ALBINA COWAN MD, FACR, CCD Report: EXAMINATION: [...] Staff: ALBINA COWAN MD, FACR, STAFF RADIOLOGIST (Stave Block Splitter) /ALBINA NATHAN [facility] July 13, 2022 10:07 AM FOREARM LEFT 2 VIEWS: MARYJO WAGNER [id number] -1950 M Exm Date: JULY 13, 2022@10:07 Req Phys: MONICAWHITNEY MARIN Pat Loc: [facility] EMERGENCY DEPT WALK-IN (Re Img Loc: MAIN X-RAY Service: Unknown (Case [id number] COMPLETE) FOREARM LEFT 2 VIEWS (RAD Detailed) CPT:69234 Proc Modifiers : LEFT Reason for Study: L arm pain Clinical History: [place] IS NOT under investigation for COVID-19 or is COVID-19 negative Atraumatic left upper extremity pain that is located midshaft humerus distally to the mid forearm. Clinical concern for dislocation versus fracture versus bone mets Responsible provider name and phone number to notify for critical findings if other than user placing the order and pager listed below: User placing orders pager: [phone] LAST CREATININE 0.8 (05/10/22) Report Status: Verified Date Reported: JULY 13, 2022 Date Verified: JULY 13, 2022 Stave Block Splitter E-Sig:/ES/ALBINA COWAN MD, FACR, [employer] Report: EXAMINATION: FOREARM LEFT 2 VIEWS 07/13/2022 [...] Staff: ALBINA COWAN MD, FACR, STAFF RADIOLOGIST (Stave Block Splitter) /ALBINA NATHAN [facility] Pathology Reports: +/- 30 days [...] the Encounter. The data comes from all [place] treatment facilities. Date/Time Pathology Report Provider Source July 13, 2022 04:06 PM LR SURGICAL PATHOL OGY REPORT: LOCAL TITLE: LR SURGICAL PATHOLOGY REPORT STANDARD TITLE: PATHOLOGY REPORT DATE OF NOTE: JULY 21, 2022@14:37:27 ENTRY DATE: JULY 21, 2022@14:37:27 AUTHOR: JIAN SANDOVAL EXP COSIGNER: URGENCY: STATUS: COMPLETED $APHDR Reporting Lab: [facility] [CLIA# [id number]] [place] [address] - - - - - - - [...] STAFF PATHOLOGIST, PATHOLOGY & LABORATORY [facility] [place] July 21, 2022@14:37 Performing Laboratory: Surgical Pathology Report Performed By: [facility] [CLIA# [id number]] [place] [address] $FTR - - - - - - [...] - - MARYJO WAGNER STANDARD FORM 515 ID:[id number] SEX:M :1950 AGE: 72 LOC:[facility] PATHOLOGY PRO FEE ADM:June DX:PATHOLOGIC FX LF HUMERUS PCP: Leif Balbuena MD /sangita/ JIAN SANDOVAL STAFF PATHOLOGIST, PATHOLOGY & LABORATORY MED C Signed: 07/21/2022 14:37 JIAN SANDOVAL [facility]
--- OUTSIDE RECORDS SUMMARY | 2023-03-24 08:59 | XMS_ITS ---
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 of Vetera [facility] Address [address] [place] [address] Support Name Relationship Address Phone DOREEN WAGNER Next of Kin [phone] [place] [phone] DOREEN Emergency Contact [address] [place] [phone] Insurance Providers: All historical and current [...] Name Patient's Relationship to Policy [place] [employer] [facility] (WNR) MEDICARE ADVANTAGE [facility] (R) June 26, 2016 [id number] JOAN WAGNER KARSTEN PATIENT [employer] MCR (WNR) MEDICARE ADVANTAGE MCR (WNR) June 26, 2016 [id number] [phone] JOAN WANGER KARSTEN PATIENT [employer] MCR (WNR) MEDICARE ADVANTAGE [facility] (WNR) June 26, 2016 [id number] [phone] JOAN WAGNER PATIENT Selected Encounter This section includes the information on record at CT for the Encounter. Date/Time Encounter Type Encounter Description Reason Pro vider Source July 15, 2022 03:55 PM Inpatient Visit DAILY HOSPITALIZATION DATA I[facility] [...] 20 appointments. The data comes from all [facility]. Appointment Date/Time Appointment Type Appointme nt Facility Name Jul 28, 2022 10:45 AM [facility] Aug 13, 2022 06:13 PM AMBULATORY - MEDICINE [facility] Aug 23, 2022 09:30 AM AMBULATORY - SURGERY [facility] Aug 23, 2022 09:45 AM [facility] Aug 23, 2022 10:30 AM AMBULATORY - MEDICINE [facility] Aug 23, 2022 10:31 AM AMBULATORY - MEDICINE [facility] Sep 06, 2022 10:15 AM AMBULATORY - SURGERY [facility] Oct 25, 2022 07:00 AM [facility] Oct 25, 2022 07:30 AM AMBULATORY - SURGERY [facility] Oct 25, 2022 09:00 AM AMBULATORY - SURGERY [facility] Active, Pending, and Scheduled Orders This section includes a listing of several types of active, pending, and scheduled orders, including clinic medications orders, diagnostic test orders, procedure orders and consult orders; where the start date of the order is 45 days before the date of the Encounter or 45 days after the date of theEncounter. The data comes from all [facility]. Test Date/Time Test Type Test Details Facility Name Jun 12, 2022 12:00 AM Laboratory - Chemistry Order CBC & DIFF BLOOD ONCO SP ONCE [facility] Jun 12, 2022 12:00 AM Laboratory - Chemistry Order COMPREHENSIVE METABOLIC PANEL+MG PLASMA ONCO SP [facility] Jun 12, 2022 12:00 AM Laboratory - Chemistry Order TSH W/REFLEX TO FREE T4 PLASMA ONCO SP ONCE [facility] July 14, 2022 12:00 AM Laboratory - Blood Bank Order ABO/RH - LAB BLOOD [facility] July 14, 2022 02:05 PM Laboratory - Blood Bank Order TYPE & SCREEN - LAB BLOOD [facility] Aug 07, 2022 11:23 AM Laboratory - Chemistry Order DRUG SCREEN PANEL,URINE URINE [facility] Aug 23, 2022 10:47 AM Laboratory - Chemistry Order URINALYSIS URINE ER STAT [facility] Lab Results: +/- 30 days [...] July 19, 2022 05:00 PM Reporting Lab: [facility] [address] Performing Lab: [facility] [address] FINGERSTICK GLUCOSE 132 70-100 July 19, 2022 07:13 AM [facility] COMPREHENSIVE METABOLIC PANEL+MG Specimen Type: PLASMA No comment entered. Ordering Provider: MACKENZIE COTTER Report Released Date/Time: July 18, 2022 05:40 PM Reporting Lab: [facility] [address] Performing Lab: [facility] [address] CREATININE 0.9 0.7-1.2 UREA NITROGEN 24 8-26 [...] July 18, 2022 05:40 PM Reporting Lab: [facility] [address] Performing Lab: [facility] [address] IRON 28 L 65-175 TIBC,CALCULATE D 223 L 250-425 FERRITIN 73.7 21.8-274.7 IRON SATURATION 13 L 20-50 TRANSFERRIN 178 163-382 July 19, 2022 07:13 AM [facility] CBC Specimen Type: BLOOD No comment entered. Ordering Provider: MACKENZIE COTTER Report Released Date/Time: July 18, 2022 05:40 PM Reporting Lab: [facility] [address] Performing Lab: [facility] [address] WBC 7.73 4.0-11.0 RBC 2.42 L 4.6-6.2 [...] July 19, 2022 11:54 AM Reporting Lab: [facility] [address] Performing Lab: [facility] [address] FINGERSTICK GLUCOSE 137 70-100 July 18, 2022 10:51 PM [facility] FINGERSTICK GLUCOSE Specimen Type: BLOOD Comment: Save Result Nurse Notified Ordering Provider: MACKENZIE COTTER Report Released Date/Time: July 18, 2022 11:06 PM Reporting Lab: [facility] [address] Performing Lab: [facility] [address] FINGERSTICK GLUCOSE 163 70-100 July 17, 2022 06:51 AM [facility] BASIC METABOLIC PANEL+MG Specimen Type: PLASMA No comment entered. Ordering Provider: DANG VALLE Report Released Date/Time: July 16, 2022 09:37 AM Reporting Lab: [facility] [address] Performing Lab: [facility] [address] CREATININE 0.8 0.7-1.2 UREA NITROGEN 23 8-26 [...] July 16, 2022 09:37 AM Reporting Lab: [facility] [address] Performing Lab: [facility] [address] .INR 1.0 0.8-1.1 .PT 11.5 9.4-12.5 July 17, 2022 06:51 AM [facility] CBC Specimen Type: BLOOD No comment entered. Ordering Provider: DANG VALLE R Report Released Date/Time: July 16, 2022 09:37 AM Reporting Lab: [facility] [address] Performing Lab: [facility] [address] WBC 6.05 4.0-11.0 RBC 3.77 L 4.6-6.2 [...] July 13, 2022 11:04 AM Reporting Lab: [facility] [address] Performing Lab: [facility] [address] COVID-19 (CEPHEID) Not Detected Not Detected INFLUENZA A (PCR) Not Detected Not Detected INFLUENZA B (PCR) Not Detected Not Detected RSV (PCR) Not Detected Not Detected July 13, 2022 11:00 AM [facility] C-REACTIVE PROTEIN Specimen Type: SERUM Comment: Automated Differential Performed Ordering Provider: WHITNEY ANDERSON Report Released Date/Time: July 13, 2022 11:04 AM Reporting Lab: [facility] [address] Performing Lab: [facility] [address] C-REACTIVE PROTEIN 1.17 <5.00 July 13, 2022 11:00 AM [facility] PROTHROMBIN TIME/INR Specimen Type: PLASMA No comment entered. Ordering Provider: WHITNEY ANDERSON Report Released Date/Time: July 13, 2022 11:04 AM Reporting Lab: [facility] [address] Performing Lab: [facility] [address] .INR 0.9 0.8-1.1 .PT 11.1 9.4-12.5 July 13, 2022 11:00 AM [facility] SED RATE Specimen Type: BLOOD No comment entered. Ordering Provider: WHITNEY ANDERSON Report Released Date/Time: July 13, 2022 11:04 AM Reporting Lab: [facility] [address] Performing Lab: [facility] [address] SED RATE 10 5-15 July 13, 2022 11:00 AM [facility] CBC & DIFF Specimen Type: BLOOD Comment: Automated Differential Performed Ordering Provider: WHITNEY ANDERSON Report Released Date/Time: July 13, 2022 11:04 AM Reporting Lab: [facility] [address] Performing Lab: [facility] [address] WBC 8.82 4.0-11.0 RBC 3.89 L 4.6-6.2 [...] July 13, 2022 11:04 AM Reporting Lab: [facility] [address] Performing Lab: [facility] [address] CREATININE 1.0 0.7-1.2 UREA NITROGEN 16 8-26 [...] 136/73 mm[Hg] 19 /min 95 % 0 [facility] July 15, 2022 09:35 PM 7 [facility] July 15, 2022 08:35 PM 7 [facility] July 15, 2022 07:48 PM 7 [facility] July 15, 2022 07:47 PM 8 [facility] Social History: Smoking Status (Most [...] Mar 18, 2003 ADVANCE DIRECTIVE FARHAT MELGAR [facility] Radiology Reports: [...] 07:50 AM CHEST 1 VIEW: MARYJO WAGNER [id number] -1950 M Exm Date: JULY 20, 2022@07:50 Req Phys: MACKENZIE COTTER [facility] Loc: 07-20-2022@08:26 Img Loc: MAIN X-RAY Service: PRIMARY CARE - MED OFFICE (Case [id number] COMPLETE) CHEST 1 VIEW (RAD Detailed) CPT:75156 Proc Modifiers : PORTABLE EXAM Reason for Study: see below. thanks. Clinical History: IS NOT under investigation for COVID-19 or is COVID-19 negative Please further evaluate for acute airspace disease given o2 requirement. Thanks. Responsible provider name and phone number to notify for critical findings if other than user placing the order and pager listed below: User placing orders pager: [phone] same LAST CREATININE 0.9 (07/19/22) Report Status: Verified Date Reported: JULY 20, 2022 Date Verified: JULY 20, 2022 Refractory Mixer E-Sig:/ES/JAMIE MIGUEL MD Report: EXAM: CHEST [...] pager listed below: User placing orders pager: [phone] same LAST CREATININE 0. COMPARISON: Chest CT [...] Primary Interpreting Staff: JAMIE MIGUEL MD, RADIOLOGIST (Refractory Mixer) /JAMIE FRANCES [facility] July 18, 2022 12:59 PM ELBOW LEFT 2 VIEWS: MARYJO WAGNER [id number] -1950 M Exm Date: JULY 18, 2022@12:59 Req Phys: LEIF BALBUENA Pat Loc: OR-PACU/07-18-2022@13:59 Img Loc: MAIN X-RAY Service: ZZSURGICAL SERVICE (Case [id number] COMPLETE) ELBOW LEFT 2 VIEWS (RAD Detailed) CPT:94241 Proc Modifiers : PORTABLE EXAM, OPERATING ROOM EXAM Reason for Study: post-op Clinical History: post-op Report Status: Verified Date Reported: JULY 18, 2022 Date Verified: JULY 18, 2022 Refractory Mixer E-Sig:/ES/JAKUB LEE MD Report: EXAM: ELBOW [...] Primary Interpreting Staff: JAKUB LEE MD, RADIOLOGIST (Refractory Mixer) /[facility] JAKUB LEE [facility] July 18, 2022 07:30 AM FLUORO UP TO 1 HR PHYSICIAN TIME: MARYJO WAGNER [id number] -1950 M Exm Date: JULY 18, 2022@07:30 Req Phys: LEIF BALBUENA Loc: OR-PACU/07-18-2022@13:14 Img Loc: MAIN X-RAY Service: PRIMARY CARE - MED OFFICE (Case [id number] COMPLETE) FLUORO UP TO 1 HR PHYSICIAN TIME (RAD Detailed) CPT:86999 Proc Modifiers : PORTABLE EXAM, OPERATING ROOM EXAM, LEFT Reason for Study: Left distal humerous ORIF Clinical History: OR 7 Pathologic distal humeral shaft fracture Responsible provider name and phone number to notify for critical findings if other than user placing the order and pager listed below: User placing orders pager: Henry BALBUENA [phone] LAST CREATININE 0.8 (07/17/22) Report Status: Electronically Filed Date Reported: JULY 18, 2022 Report: Impression: Please see the full report for this procedure in CPRS patient progress notes. Fluoro guidance was provided during this procedure, but the study was not reviewed or verified by a [facility] radiologist. The radiation exposure dose has been recorded in the patient's chart. If you are unable to view this data, please contact the Imaging Department. VERIFIED BY: / *ELECTRONICALLY FILED* [facility] July 17, 2022 03:28 PM ABDOMINAL AORTOGRAM (P): BERNARDMARYJO DIRK [id number] -1950 M Exm Date: JULY 17, 2022@15:28 Req Phys: MALCOM LANGLEY Loc: 07-17-2022@15:54 Img Loc: INTERVENTIONAL RADIOLOGY Service: PRIMARY CARE - MED OFFICE (Case [id number] COMPLETE) ANGIOGRAPHY EXTREMITY UNILAT S&I (ANI Detailed) CPT:36280 Reason for Study: codes (Case 528 COMPLETE) IR AORTOGRAPHY ABDOMINAL W/O RUNO(ANI Detailed) CPT:15623 (Case 529 COMPLETE) IR FOREIGN BODY REMOVAL INTRAVASC(ANI Detailed) CPT:29998 (Case 532 COMPLETE) IR NEEDLE/INTRACATH PLACEMENT EXT(ANI Detailed) CPT:57912 (Case 533 COMPLETE) IR PLACEMENT OCCLUSIVE DEVICE SAM(ANI Detailed) CPT:G0269 Clinical History: codes Report Status: Verified Date Reported: JULY 17, 2022 Date Verified: JULY 17, 2022 Refractory Mixer E-Sig:/ES/MALCOM LANGLEY MD Report: RADIOLOGIST: Malcom [...] angiogram and runoff. 12. Closure of right SET DECORATOR with Angio-Seal device. HISTORY: Metastatic renal cell [...] Sheath removed over guidewire and a 5 hebrew vascular sheath advanced over guidewire into the artery. An H1 catheter was advanced along with the guidewire into the thoracic arch and the left subclavian artery was selected. Catheter and the guidewire were advanced into the left brachial artery. The 5 Chadian sheath was exchanged for a 6 Chadian sheath that was advanced into the left [...] arteries. Sheath and catheters were removed and SET DECORATOR arteriotomy was closed using Angioseal. There is patent hemostasis. No bleeding or hematoma noted. Sterile dressing applied. 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 Primary Interpreting Staff: MALCOM LANGLEY MD, INTERVENTIONAL RADIOLOGIST (Refractory Mixer) /MALCOM HE [facility] July 17, 2022 07:30 AM RENAL ARTERY EMBOLIZATION (P): MARYJO WAGNER [id number] -1950 M Exm Date: JULY 17, 2022@07:30 Req Phys: WESTON VASQUEZ Pat Loc: 07-17-2022@15:46 Img Loc: INTERVENTIONAL RADIOLOGY Service: PRIMARY CARE - MED OFFICE (Case 130 COMPLETE) IR TRANSCATH EMBOLIZATION W/ANGIO(ANI Detailed) CPT:19030 Reason for Study: embolization of RCC mets to left humerus (Case 131 COMPLETE) IR ARTERIAL EMBOLIZATION OTHER TH(ANI Detailed) CPT:11509 (Case 132 COMPLETE) IR US GUIDANCE VASCULAR ACCESS (ANI Detailed) CPT:90599 Clinical History: [place] IS NOT under investigation for COVID-19 or [...] pager listed below: User placing orders pager: [phone] LAST CREATININE 1.0 (07/13/22) Report Status: Verified Date Reported: JULY 17, 2022 Date Verified: JULY 17, 2022 Refractory Mixer E-Sig:/ES/MALCOM LANGLEY MD Report: RADIOLOGIST: Malcom [...] angiogram and runoff. 12. Closure of right SET DECORATOR with Angio-Seal device. HISTORY: Metastatic renal cell [...] Sheath removed over guidewire and a 5 hebrew vascular sheath advanced over guidewire into the artery. An H1 catheter was advanced along with the guidewire into the thoracic arch and the left subclavian artery was selected. Catheter and the guidewire were advanced into the left brachial artery. The 5 Chadian sheath was exchanged for a 6 Chadian sheath that was advanced into the left [...] arteries. Sheath and catheters were removed and SET DECORATOR arteriotomy was closed using Angioseal. There is patent hemostasis. No bleeding or hematoma noted. Sterile dressing applied. 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 Primary Interpreting Staff: MALCOM LANGLEY MD, INTERVENTIONAL RADIOLOGIST (Refractory Mixer) /MALCOM HE [facility] July 14, 2022 06:44 AM HUMERUS LEFT MINIMUM 2 VIEWS: MARYJO WAGNER [id number] -1950 M Ex Date: JULY 14, 2022@06:44 Req Phys: PEDROHERBERTJAIRO [facility] Loc: 07-14-2022@07:13 Img Loc: MAIN X-RAY Service: PRIMARY CARE - MED OFFICE (Case [id number] COMPLETE) HUMERUS LEFT MINIMUM 2 VIEWS (RAD Detailed) CPT:58182 Reason for Study: post reduction Clinical History: Report Status: Verified Date Reported: JULY 14, 2022 Date Verified: JULY 14, 2022 Refractory Mixer E-Sig: Report: HUMERUS LEFT MINIMUM 2 [...] less likely. READING PHYSICIAN: Xavier Merrill MD -[id number] 07/14/2022 5:11 PDT [facility] National Teleradiology Program [phone] (For Medical Practitioner Use Only) Attention Patients / Veterans: If you have questions or concerns about these test results, please contact your ordering provider or primary care team. Primary Interpreting Staff: RADIOLOGY,OUTSIDE SERVICE, Staff Physician / RADIOLOGY,OUTSIDE SERVICE [facility] July 13, 2022 10:07 AM HUMERUS LEFT MINIMUM 2 VIEWS: MARYJO WAGNER [id number] -1950 M Ex Date: JULY 13, 2022@10:07 Req Phys: WHITNEY ANDERSON Pat Loc: [facility] EMERGENCY DEPT WALK-IN (Re Img Loc: MAIN X-RAY Service: Unknown (Case [id number] COMPLETE) HUMERUS LEFT MINIMUM 2 VIEWS (RAD Detailed) CPT:06060 Proc Modifiers : LEFT Reason for Study: L arm pain Clinical History: Mal[place] IS NOT under investigation for COVID-19 or is COVID-19 negative Atraumatic left upper extremity pain that is located midshaft humerus distally to the mid forearm. Clinical concern for dislocation versus fracture versus bone mets Responsible provider name and phone number to notify for critical findings if other than user placing the order and pager listed below: User placing orders pager: [phone] LAST CREATININE 0.8 (05/10/22) Report Status: Verified Date Reported: JULY 13, 2022 Date Verified: JULY 13, 2022 Refractory Mixer E-Sig:/ES/ALBINA COWAN MD, FACR, CCD Report: [...] Staff: ALBINA COWAN MD, FACR, STAFF RADIOLOGIST (Refractory Mixer) /[facility] ALBINA COWAN [facility] July 13, 2022 10:07 AM ELBOW LEFT 3 OR MORE VIEWS: MARYJO WAGNER [id number] -1950 M Exm Date: JULY 13, 2022@10:07 Req Phys: WHITNEY ANDERSON Pat Loc: [facility] EMERGENCY DEPT WALK-IN (Re Img Loc: MAIN X-RAY Service: Unknown (Case [id number] COMPLETE) ELBOW LEFT 3 OR MORE VIEWS (RAD Detailed) CPT:02216 Proc Modifiers : LEFT Reason for Study: L arm pain Clinical History: [place] IS NOT under investigation for COVID-19 or is COVID-19 negative Atraumatic left upper extremity pain that is located midshaft humerus distally to the mid forearm. Clinical concern for dislocation versus fracture versus bone mets Responsible provider name and phone number to notify for critical findings if other than user placing the order and pager listed below: User placing orders pager: [phone] LAST CREATININE 0.8 (05/10/22) Report Status: Verified Date Reported: JULY 13, 2022 Date Verified: JULY 13, 2022 Refractory Mixer E-Sig:/ES/ALBINA COWAN MD, FACR, CCD Report: [...] Staff: ALBINA COWAN MD, FACR, STAFF RADIOLOGIST (Refractory Mixer) /ALBINA NATHAN [facility] July 13, 2022 10:07 AM FOREARM LEFT 2 VIEWS: MARYJO WAGNER [id number] -1950 M Exm Date: JULY 13, 2022@10:07 Req Phys: MONICAWHITNEY MARIN Pat Loc: [facility] EMERGENCY DEPT WALK-IN (Re Img Loc: MAIN X-RAY Service: Unknown (Case [id number] COMPLETE) FOREARM LEFT 2 VIEWS (RAD Detailed) CPT:37770 Proc Modifiers : LEFT Reason for Study: L arm pain Clinical History: Mal[place] IS NOT under investigation for COVID-19 or is COVID-19 negative Atraumatic left upper extremity pain that is located midshaft humerus distally to the mid forearm. Clinical concern for dislocation versus fracture versus bone mets Responsible provider name and phone number to notify for critical findings if other than user placing the order and pager listed below: User placing orders pager: [phone] LAST CREATININE 0.8 (05/10/22) Report Status: Verified Date Reported: JULY 13, 2022 Date Verified: JULY 13, 2022 Refractory Mixer E-Sig:/ES/ALBINA COWAN MD, FACR, [facility] Report: EXAMINATION: FOREARM LEFT 2 VIEWS [...] Staff: ALBINA COWAN MD, FACR, STAFF RADIOLOGIST (Refractory Mixer) /ALBINA NATHAN [facility] Pathology [...] Reporting Lab: [facility] [CLIA# [id number]] [place] [address] - - - - - - - [...] is entirely submitted in A-D. CE. (D). [facility] FROZEN SECTION DIAGNOSES: SPEC. 1 - [...] Performed By: [facility] [CLIA# [id number]] [place] [address] $FTR - - - - - - [...] - - MARYJO WAGNER STANDARD FORM 515 ID:[id number] SEX:M :1950 AGE: 72 LOC:[facility] PATHOLOGY PRO FEE ADM:June DX:PATHOLOGIC FX LF HUMERUS PCP: Leif Balbuena MD /sagnita/ JIAN SANDOVAL STAFF PATHOLOGIST, PATHOLOGY & LABORATORY MED C Signed: 07/21/2022 14:37 JIAN SANDOVAL [facility]
--- OUTSIDE RECORDS SUMMARY | 2023-03-24 08:59 | XMS_ITS | Encounter Summary ---
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 [facility] Organization Department of [facility] Address [address] [place] [address] Support Name Relationship Address Phone DOREEN WAGNER Next of Kin [address] [place] [phone] DOREEN Emergency Contact [address] [place] [phone] Insurance Providers: All historical and current [...] Name Patient's Relationship to Policy Casey HUMANA [facility] (WNR) MEDICARE [facility] ([facility]) June 26, 2016 [id number] JOAN WAGNER KARSTEN PATIENT HUMANA MCR (WNR) MEDICARE ADVANTAGE [facility] ([facility]) June 26, 2016 [id number] JOAN WAGNER KARSTEN PATIENT [employer]MANA MCR (WNR) MEDICARE ADVANTAGE [facility] (R) June 26, 2016 [id number] [phone] JOAN WAGNER KARSTEN PATIENT Selected Encounter This section includes the information on record at [place] for the Encounter. Date/Time Encounter Type Encounter Description Reason Pro vider Source July 14, 2022 01:00 AM Inpatient Visit ADMIN [employer] ([employer]) SYSTEM,CIS-ARK IHE Encounter Template Text not used by NE [...] 20 appointments. The data comes from all [facility]. Appointment Date/Time Appointment Type Appointme nt Facility Name Jul 28, 2022 10:45 AM [facility] Aug 13, 2022 06:13 PM [facility] Aug 23, 2022 09:30 AM AMBULATORY - SURGERY [facility] Aug 23, 2022 09:45 AM [facility] Aug 23, 2022 10:30 AM AMBULATORY - MEDICINE [facility] Aug 23, 2022 10:31 AM AMBULATORY - MEDICINE [facility] Sep 06, 2022 10:15 AM AMBULATORY - SURGERY [facility] Oct 25, 2022 07:00 AM [facility] Oct 25, 2022 07:30 AM [...] of theEncounter. The data comes from all [facility]. Test Date/Time Test Type Test Details Facility Name Jun 12, 2022 12:00 AM Laboratory - Chemistry Order CBC & DIFF BLOOD ONCO SP ONCE [facility] Jun 12, 2022 12:00 AM Laboratory - Chemistry Order COMPREHENSIVE METABOLIC PANEL+MG PLASMA ONCO SP ONCE [facility] Jun 12, 2022 12:00 AM Laboratory - Chemistry Order TSH W/REFLEX TO FREE T4 PLASMA ONCO SP ONCE [facility] July 14, 2022 12:00 AM Laboratory - Blood Bank Order ABO/RH - LAB BLOOD [facility] July 14, 2022 02:05 PM Laboratory - Blood Bank Order TYPE & SCREEN - LAB BLOOD [facility] Aug 07, 2022 11:23 AM Laboratory - Chemistry Order DRUG SCREEN PANEL,URINE URINE ONCE [facility] Aug 23, 2022 10:47 AM Laboratory - Chemistry Order URINALYSIS URINE ER STAT WC [facility] Lab Results: +/- 30 days [...] Range Comment July 19, 2022 04:40 PM [facility] FINGERSTICK GLUCOSE Specimen Type: BLOOD Comment: Save Result Nurse Notified Ordering Provider: MACKENZIE COTTER Report Released Date/Time: July 19, 2022 05:00 PM Reporting Lab: [facility] [address] Performing Lab: [facility] [address] FINGERSTICK GLUCOSE 132 70-100 July 19, 2022 07:13 AM [facility] COMPREHENSIVE METABOLIC PANEL+MG Specimen Type: PLASMA No comment entered. Ordering Provider: MACKENZIE COTTER Report Released Date/Time: July 18, 2022 05:40 PM Reporting Lab: [facility] [address] Performing Lab: [facility] [address] CREATININE 0.9 0.7-1.2 UREA NITROGEN 24 8-26 [...] See_Commen t July 19, 2022 07:13 AM [facility] IRON GROUP Specimen Type: SERUM No comment entered. Ordering Provider: MACKENZIE COTTER Report Released Date/Time: July 18, 2022 05:40 PM Reporting Lab: [facility] [address] Performing Lab: [facility] [address] IRON 28 L 65-175 TIBC,CALCULATE D 223 L 250-425 FERRITIN 73.7 21.8-274.7 IRON SATURATION 13 L 20-50 TRANSFERRIN 178 163-382 July 19, 2022 07:13 AM [facility] CBC Specimen Type: BLOOD No comment entered. Ordering Provider: MACKENZIE COTTER Report Released Date/Time: July 18, 2022 05:40 PM Reporting Lab: [facility] [address] Performing Lab: [facility] [address] WBC 7.73 4.0-11.0 RBC 2.42 L 4.6-6.2 HGB 8.2 L 13.5-17.9 HCT 23.8 L 41-54 MCV 98.3 80-100 MCH 33.9 H 27-33 MCHC 34.5 32.0-37.5 PLT 155 150-400 MPV 9.6 7.4-10.4 RDW 13.5 11.5-14.5 July 19, 2022 05:44 AM [facility] FINGERSTICK GLUCOSE Specimen Type: BLOOD Comment: Save Result Nurse Notified Ordering Provider: MACKENZIE COTTER Report Released Date/Time: July 19, 2022 11:54 AM Reporting Lab: [facility] [address] Performing Lab: [facility] [address] FINGERSTICK GLUCOSE 137 70-100 July 18, 2022 10:51 PM [facility] FINGERSTICK GLUCOSE Specimen Type: BLOOD Comment: Save Result Nurse Notified Ordering Provider: MACKENZIE COTTER Report Released Date/Time: July 18, 2022 11:06 PM Reporting Lab: [facility] [address] Performing Lab: [facility] [address] FINGERSTICK GLUCOSE 163 70-100 July 17, 2022 06:51 AM [facility] BASIC METABOLIC PANEL+MG Specimen Type: PLASMA No comment entered. Ordering Provider: DANG VALLE Report Released Date/Time: July 16, 2022 09:37 AM Reporting Lab: [facility] [address] Performing Lab: [facility] [address] CREATININE 0.8 0.7-1.2 UREA NITROGEN 23 8-26 GLUCOSE 107 H 70-100 SODIUM 139 136-145 POTASSIUM 3.9 3.5-5.1 CHLORIDE 106 98-107 CO2 28 22-29 CALCIUM 9.1 8.4-10.2 MAGNESIUM 1.9 1.6-2.6 ANION GAP 5 5-15 .CREAT EGFR(CKD-EPI) >90 See_Commen t July 17, 2022 06:51 AM [facility] PROTHROMBIN TIME/INR Specimen Type: PLASMA No comment entered. Ordering Provider: DANG VALLE R Report Released Date/Time: July 16, 2022 09:37 AM Reporting Lab: [facility] [address] Performing Lab: [facility] [address] .INR 1.0 0.8-1.1 .PT 11.5 9.4-12.5 July 17, 2022 06:51 AM [facility] CBC Specimen Type: BLOOD No comment entered. Ordering Provider: DANG VALLE R Report Released Date/Time: July 16, 2022 09:37 AM Reporting Lab: [facility] [address] Performing Lab: [facility] [address] WBC 6.05 4.0-11.0 RBC 3.77 L 4.6-6.2 HGB 12.7 L 13.5-17.9 HCT 36.0 L 41-54 MCV 95.5 80-100 MCH 33.7 H 27-33 MCHC 35.3 32.0-37.5 PLT 179 150-400 MPV 9.4 7.4-10.4 RDW 13.2 11.5-14.5 July 13, 2022 11:22 AM [facility] COVID-19 AND FLU/RSV DIAG PANEL(CEPHEID) Specimen Typ e: NASOPHARYNGEAL Comment: Cepheid GeneXpert (618) Ordering Provider: WHITNEY ANDERSON Report Released Date/Time: July 13, 2022 11:04 AM Reporting Lab: [facility] [address] Performing Lab: [facility] [address] COVID-19 (CEPHEID) Not Detected Not Detected INFLUENZA A (PCR) Not Detected Not Detected INFLUENZA B (PCR) Not Detected Not Detected RSV (PCR) Not Detected Not Detected July 13, 2022 11:00 AM [facility] C-REACTIVE PROTEIN Specimen Type: SERUM Comment: Automated Differential Performed Ordering Provider: WHITNEY ADNERSON Report Released Date/Time: July 13, 2022 11:04 AM Reporting Lab: [facility] [address] Performing Lab: [facility] [address] C-REACTIVE PROTEIN 1.17 <5.00 July 13, 2022 11:00 AM [facility] PROTHROMBIN TIME/INR Specimen Type: PLASMA No comment entered. Ordering Provider: WHITNEY ANDERSON Report Released Date/Time: July 13, 2022 11:04 AM Reporting Lab: [facility] [address] Performing Lab: [facility] [address] .INR 0.9 0.8-1.1 .PT 11.1 9.4-12.5 July 13, 2022 11:00 AM [facility] SED RATE Specimen Type: BLOOD No comment entered. Ordering Provider: WHITNEY ANDERSON Report Released Date/Time: July 13, 2022 11:04 AM Reporting Lab: [facility] [address] Performing Lab: [facility] [address] SED RATE 10 5-15 July 13, 2022 11:00 AM [facility] CBC & DIFF Specimen Type: BLOOD Comment: Automated Differential Performed Ordering Provider: WHITNEY ANDERSON Report Released Date/Time: July 13, 2022 11:04 AM Reporting Lab: [facility] [address] Performing Lab: [facility] [address] WBC 8.82 4.0-11.0 RBC 3.89 L 4.6-6.2 [...] 0.03 0-0.1 July 13, 2022 11:00 AM [facility] COMPREHENSIVE METABOLIC PANEL+MG Specimen Type: PLASMA Comment: Automated Differential Performed Ordering Provider: WHITNEY ANDERSON Report Released Date/Time: July 13, 2022 11:04 AM Reporting Lab: [facility] [address] Performing Lab: [facility] [address] CREATININE 1.0 0.7-1.2 UREA NITROGEN 16 8-26 [...] Source July 14, 2022 11:40 PM 8 [facility] July 14, 2022 11:33 PM 98.2 F 57 /min 134/63 mm[Hg] 21 /min 94 % 8 [facility] July 14, 2022 10:30 PM 8 [facility] July 14, 2022 10:20 PM 8 [facility] July 14, 2022 09:33 PM 8 [facility] Social History: Smoking Status [...] Facil ity May 10, 2022 09:15 AM NE-TOBACCO QUIT 15 YRS OR MORE [facility] Tobacco Use History This section includes a history of the smoking, or tobacco-related health factors, that were collected on or before the date of the Encounter. The data comes from the [place] facility where the Encounter took place. Date/Time Smoking Status/Tobacco Use Comment F acility May 10, 2022 09:15 AM VA-TOBACCO QUIT 15 YRS OR MORE [facility] May 11, 2021 09:15 AM VA-TOBACCO FORMER USER [facility] May 11, 2021 09:15 AM NE-TOBACCO QUIT 15 YRS OR MORE [facility] Nov 22, 2018 01:36 PM VA-TOBACCO NEVER USED [facility] Nov 12, 2017 07:35 AM FORMER TOBACCO USER 7Y OR GREATE R [facility] Nov 06, 2016 09:05 AM FORMER TOBACCO USER 7Y OR GREATE R [facility] Sep 27, 2015 09:42 AM FORMER TOBACCO USER 7Y OR GREATE R [facility] Sep 25, 2014 07:55 AM FORMER TOBACCO USER 7Y OR GREATE R [facility] Sep 08, 2013 07:48 AM FORMER TOBACCO USER 7Y OR GREATE R [facility] July 09, 2012 09:20 AM FORMER TOBACCO USE >1Y <7Y [facility] Jun 06, 2011 07:53 AM FORMER TOBACCO USE >1Y <7Y [facility] Sep 09, 2009 03:03 PM FORMER TOBACCO USE >1Y <7Y [facility] Aug 11, 2008 01:06 PM FORMER TOBACCO USE <1Y [facility] Sep 19, 2007 02:52 PM CURRENT TOBACCO USER [facility] Sep 03, 2006 03:32 PM CURRENT TOBACCO USER [facility] Advance Directives: All historical and current [...] 07:50 AM CHEST 1 VIEW: MARYJO WAGNER [id number] -1950 M Exm Date: JULY 20, 2022@07:50 Req Phys: MACKENZIE COTTER Pat Loc: 07-20-2022@08:26 Img Loc: MAIN X-RAY Service: PRIMARY CARE - MED OFFICE (Case [id number] COMPLETE) CHEST 1 VIEW (RAD Detailed) CPT:91590 Proc Modifiers : PORTABLE EXAM Reason for Study: see below. thanks. Clinical History: [facility] IS NOT under investigation for COVID-19 or is COVID-19 negative Please further evaluate for acute airspace disease given o2 requirement. Thanks. Responsible provider name and phone number to notify for critical findings if other than user placing the order and pager listed below: User placing orders pager: [phone] same LAST CREATININE 0.9 (07/19/22) Report Status: Verified Date Reported: JULY 20, 2022 Date Verified: JULY 20, 2022 Pediatrician E-Sig:/ES/JAMIE MIGUEL MD Report: EXAM: CHEST 1 [...] pager listed below: User placing orders pager: [phone] same LAST CREATININE 0. COMPARISON: Chest CT [...] Primary Interpreting Staff: JAMIE MIGUEL MD, RADIOLOGIST (Pediatrician) /JAMIE FRANCES [facility] July 18, 2022 12:59 PM ELBOW LEFT 2 VIEWS: MARYJO WAGNER [id number] -1950 M Exm Date: JULY 18, 2022@12:59 Req Phys: LEIF BALBUENA Loc: OR-PACU/07-18-2022@13:59 Img Loc: MAIN X-RAY Service: ZZSURGICAL SERVICE (Case [id number] COMPLETE) ELBOW LEFT 2 VIEWS (RAD Detailed) CPT:50437 Proc Modifiers : PORTABLE EXAM, OPERATING ROOM EXAM Reason for Study: post-op Clinical History: post-op Report Status: Verified Date Reported: JULY 18, 2022 Date Verified: JULY 18, 2022 Pediatrician E-Sig:/ES/JAKUB LEE MD Report: EXAM: ELBOW LEFT [...] Primary Interpreting Staff: JAKUB LEE MD, RADIOLOGIST (Pediatrician) /[facility] JAKUB LEE [facility] July 18, 2022 07:30 AM FLUORO UP TO 1 HR PHYSICIAN TIME: MARYJO WAGNER [id number] -1950 M Exm Date: JULY 18, 2022@07:30 Req Phys: LEIF BALBUENA Loc: OR-PACU/07-18-2022@13:14 Img Loc: MAIN X-RAY Service: PRIMARY CARE - MED OFFICE (Case [id number] COMPLETE) FLUORO UP TO 1 HR PHYSICIAN TIME (RAD Detailed) CPT:62559 Proc Modifiers : PORTABLE EXAM, OPERATING ROOM EXAM, LEFT Reason for Study: Left distal humerous ORIF Clinical History: OR 7 Pathologic distal humeral shaft fracture Responsible provider name and phone number to notify for critical findings if other than user placing the order and pager listed below: User placing orders pager: Henry BALBUENA [phone] LAST CREATININE 0.8 (07/17/22) Report Status: Electronically [...] Imaging Department. VERIFIED BY: / *ELECTRONICALLY FILED* [facility] July 17, 2022 03:28 PM ABDOMINAL AORTOGRAM (P): MARYJO WAGNER [id number] -1950 M Exm Date: JULY 17, 2022@15:28 Req Phys: MALCOM LANGLEY [facility] Loc: 07-17-2022@15:54 Img Loc: INTERVENTIONAL RADIOLOGY Service: PRIMARY CARE - MED OFFICE (Case [id number] COMPLETE) ANGIOGRAPHY EXTREMITY UNILAT S&I (ANI Detailed) CPT:13104 Reason for Study: codes (Case 528 COMPLETE) IR AORTOGRAPHY ABDOMINAL W/O RUNO(ANI Detailed) CPT:66336 (Case 529 COMPLETE) IR FOREIGN BODY REMOVAL INTRAVASC(ANI Detailed) CPT:80396 (Case 532 COMPLETE) IR NEEDLE/INTRACATH PLACEMENT EXT(ANI Detailed) CPT:15084 (Case 533 COMPLETE) IR PLACEMENT OCCLUSIVE DEVICE SAM(ANI Detailed) CPT:G0269 Clinical History: codes Report Status: Verified Date Reported: JULY 17, 2022 Date Verified: JULY 17, 2022 Pediatrician E-Sig:/ES/MALCOM LANGLEY MD Report: RADIOLOGIST: Malcom Langley [...] angiogram and runoff. 12. Closure of right SALES SUPPORT TECHNICIAN with Angio-Seal device. HISTORY: Metastatic renal [...] Sheath removed over guidewire and a 5 canadian vascular sheath advanced over guidewire into the artery. An H1 catheter was advanced along with the guidewire into the thoracic arch and the left subclavian artery was selected. Catheter and the guidewire were advanced into the left brachial artery. The 5 Bermudian sheath was exchanged for a 6 Bermudian sheath that was advanced into the left [...] arteries. Sheath and catheters were removed and SALES SUPPORT TECHNICIAN arteriotomy was closed using Angioseal. There is patent hemostasis. No bleeding or hematoma noted. Sterile dressing applied. 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 Primary Interpreting Staff: MALCOM LANGLEY MD, INTERVENTIONAL RADIOLOGIST (Pediatrician) /MALCOM HE [facility] July 17, 2022 07:30 AM RENAL ARTERY EMBOLIZATION (P): MARYJO WAGNER [id number] -1950 M Exm Date: JULY 17, 2022@07:30 Req Phys: WESTON VASQUEZ Pat Loc: 07-17-2022@15:46 Img Loc: INTERVENTIONAL RADIOLOGY Service: PRIMARY CARE - MED OFFICE (Case [id number] COMPLETE) IR TRANSCATH EMBOLIZATION W/ANGIO(ANI Detailed) CPT:82584 Reason for Study: embolization of RCC mets to left humerus (Case 131 COMPLETE) IR ARTERIAL EMBOLIZATION OTHER TH(ANI Detailed) CPT:32282 (Case 132 COMPLETE) IR US GUIDANCE VASCULAR ACCESS (ANI Detailed) CPT:33303 Clinical History: [facility]att IS NOT under investigation for COVID-19 or [...] pager listed below: User placing orders pager: [phone] LAST CREATININE 1.0 (07/13/22) Report Status: Verified Date Reported: JULY 17, 2022 Date Verified: JULY 17, 2022 Pediatrician E-Sig:/ES/MALCOM LANGLEY MD Report: RADIOLOGIST: Malcom Langley [...] angiogram and runoff. 12. Closure of right SALES SUPPORT TECHNICIAN with Angio-Seal device. HISTORY: Metastatic renal [...] Sheath removed over guidewire and a 5 canadian vascular sheath advanced over guidewire into the artery. An H1 catheter was advanced along with the guidewire into the thoracic arch and the left subclavian artery was selected. Catheter and the guidewire were advanced into the left brachial artery. The 5 Bermudian sheath was exchanged for a 6 Bermudian sheath that was advanced into the left [...] arteries. Sheath and catheters were removed and SALES SUPPORT TECHNICIAN arteriotomy was closed using Angioseal. There is patent hemostasis. No bleeding or hematoma noted. Sterile dressing applied. 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 Primary Interpreting Staff: MALCOM LANGLEY MD, INTERVENTIONAL RADIOLOGIST (Pediatrician) /MALCOM HE [facility] July 14, 2022 06:44 AM HUMERUS LEFT MINIMUM 2 VIEWS: MARYJO WAGNER [id number] -1950 M Exm Date: JULY 14, 2022@06:44 Req Phys: WESTON VASQUEZ [facility] Loc: 07-14-2022@07:13 Img Loc: MAIN X-RAY Service: PRIMARY CARE - MED OFFICE (Case [id number] COMPLETE) HUMERUS LEFT MINIMUM 2 VIEWS (RAD Detailed) CPT:70490 Reason for Study: post reduction Clinical History: Report Status: Verified Date Reported: JULY 14, 2022 Date Verified: JULY 14, 2022 Pediatrician E-Sig: Report: HUMERUS LEFT MINIMUM 2 VIEWS HISTORY: post reduction COMPARISON: 07/13/2022 TECHNIQUE: 2 view(s) of the humerus, submitted to the [place] National Teleradiology Program (NTP) for interpretation. FINDINGS: [...] less likely. READING PHYSICIAN: Xavier Merrill MD -[phone] 07/14/2022 5:11 PDT [facility] National Teleradiology Program [phone] (For Medical Practitioner Use Only) Attention Patients / Veterans: If you have questions or concerns about these test results, please contact your ordering provider or primary care team. Primary Interpreting Staff: RADIOLOGY,OUTSIDE SERVICE, Staff Physician / RADIOLOGY,OUTSIDE SERVICE [facility] July 13, 2022 10:07 AM HUMERUS LEFT MINIMUM 2 VIEWS: MARYJO WAGNER [id number] -1950 M Ex Date: JULY 13, 2022@10:07 Req Phys: WHITNEY ANDERSON Pat Loc: [facility] EMERGENCY DEPT WALK-IN (Re Img Loc: MAIN X-RAY Service: Unknown (Case [id number] COMPLETE) HUMERUS LEFT MINIMUM 2 VIEWS (RAD Detailed) CPT:85541 Proc Modifiers : LEFT Reason for Study: L arm pain Clinical History: [facility] IS NOT under investigation for COVID-19 or is COVID-19 negative Atraumatic left upper extremity pain that is located midshaft humerus distally to the mid forearm. Clinical concern for dislocation versus fracture versus bone mets Responsible provider name and phone number to notify for critical findings if other than user placing the order and pager listed below: User placing orders pager: [phone] LAST CREATININE 0.8 (05/10/22) Report Status: Verified Date Reported: JULY 13, 2022 Date Verified: JULY 13, 2022 Pediatrician E-Sig:/SANGITA/ALBINA COWAN MD, FACR, CCD Report: EXAMINATION: [...] Staff: ALBINA COWAN MD, FACR, STAFF RADIOLOGIST (Pediatrician) /[facility] ALBINA COWAN [facility] July 13, 2022 10:07 AM ELBOW LEFT 3 OR MORE VIEWS: CARSONMARYJO ROWELL [id number] -1950 M Exm Date: JULY 13, 2022@10:07 Req Phys: WHITNEY ANDERSON Pat Loc: [facility] EMERGENCY DEPT WALK-IN (Re Img Loc: MAIN X-RAY Service: Unknown (Case [id number] COMPLETE) ELBOW LEFT 3 OR MORE VIEWS (RAD Detailed) CPT:95174 Proc Modifiers : LEFT Reason for Study: [...] pager listed below: User placing orders pager: [phone] LAST CREATININE 0.8 (05/10/22) Report Status: Verified Date Reported: JULY 13, 2022 Date Verified: JULY 13, 2022 Pediatrician E-Sig:/SANGITA/ALBINA COWAN MD, FACR, CCD Report: EXAMINATION: [...] Staff: ALBINA COWAN MD, FACR, STAFF RADIOLOGIST (Pediatrician) /ALBINA NATHAN [facility] July 13, 2022 10:07 AM FOREARM LEFT 2 VIEWS: MARYJO WAGNER [id number] -1950 M Exm Date: JULY 13, 2022@10:07 Req Phys: WHITNEY ANDERSON Pat Loc: [facility] EMERGENCY DEPT WALK-IN (Re Img Loc: MAIN X-RAY Service: Unknown (Case [id number] COMPLETE) FOREARM LEFT 2 VIEWS (RAD Detailed) CPT:10628 Proc Modifiers : LEFT Reason for Study: L arm pain Clinical History: [facility] IS NOT under investigation for COVID-19 or is COVID-19 negative Atraumatic left upper extremity pain that is located midshaft humerus distally to the mid forearm. Clinical concern for dislocation versus fracture versus bone mets Responsible provider name and phone number to notify for critical findings if other than user placing the order and pager listed below: User placing orders pager: [phone] LAST CREATININE 0.8 (05/10/22) Report Status: Verified Date Reported: JULY 13, 2022 Date Verified: JULY 13, 2022 Pediatrician E-Sig:/ES/ALBINA COWAN MD, FACR, CCD Report: EXAMINATION: [...] Staff: ALBINA COWAN MD, FACR, STAFF RADIOLOGIST (Pediatrician) /ALBINA NATHAN [facility] Pathology Reports: +/- 30 days of [...] comes from all [place] treatment facilities. Date/Time Pathology Report Provider Source July 13, 2022 04:06 PM LR SURGICAL PATHOL OGY REPORT: LOCAL TITLE: LR SURGICAL PATHOLOGY REPORT STANDARD TITLE: PATHOLOGY REPORT DATE OF NOTE: JULY 21, 2022@14:37:27 ENTRY DATE: JULY 21, 2022@14:37:27 AUTHOR: JIAN SANDOVAL EXP COSIGNER: URGENCY: STATUS: COMPLETED $APHDR Reporting Lab: [facility] [CLIA# [id number]] [place] [address] - - - - - - - [...] PATHOLOGY & LABORATORY [facility] Signed July 21, 2022@14:37 Performing Laboratory: Surgical Pathology Report Performed By: [facility] [CLIA# [id number]] [place] [address] $FTR - - - - - - - - - - - - - - - - - - - - - - - - - - - - - - - - - - - - - - - - (End of report) JIAN SANDOVAL MD [facility] Date July 21, 2022 - - - - - - - - - - - - - - - - - - - - - - - - - - - - - - - - - - - - - - - - MARYJO WAGNER STANDARD FORM 515 ID:[id number] SEX:M :1950 AGE: 72 LOC:[facility] PATHOLOGY PRO FEE ADM:June DX:PATHOLOGIC FX LF HUMERUS PCP: Leif Balbuena MD /sangita/ JIAN SANDOVAL STAFF PATHOLOGIST, PATHOLOGY & LABORATORY [facility] Signed: 07/21/2022 14:37 JIAN SANDOVAL [facility] Encounter Notes: All associated encounter notes This section contains the clinical notes associated to the Encounter. Date/Time Encounter Note(s) Provider Source July 14, 2022 01:00 AM CRITICAL CARE UNIT NOTE: LOCAL TITLE: [facility] INPATIENT FLOWSHEET STANDARD TITLE: CRITICAL CARE UNIT NOTE DATE OF NOTE: JULY 14, 2022@01:00 ENTRY DATE: JULY 15, 2022@14:42:38 AUTHOR: JAZ,SHARRI EXP COSIGNER: URGENCY: STATUS: COMPLETED This is a place casey only. Please see [facility] to view document. /es/ [employer] SYSTEM ICU DOCUMENT IMPORT Signed: 07/15/2022 14:42 SYSTEM,[employer] [facility] July 14, 2022 01:00 AM CRITICAL CARE UNIT NOTE: LOCAL TITLE: [facility] RESPIRATORY THERAPY FLOWSHEET STANDARD TITLE: CRITICAL CARE UNIT NOTE DATE OF NOTE: JULY 14, 2022@01:00 ENTRY DATE: JULY 15, 2022@15:15:12 AUTHOR: JAZ,getbetter! EXP COSIGNER: URGENCY: STATUS: COMPLETED This is a place casey only. Please see [facility] to view document. /es/ [employer] SYSTEM ICU DOCUMENT IMPORT Signed: 07/15/2022 15:15 SYSTEM,[employer] [facility]
--- OUTSIDE RECORDS SUMMARY | 2023-03-24 09:00 | XMS_ITS ---
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 of Vetera [facility] Address [address] [place] [address] Support Name Relationship Address Phone DOREEN WAGNER Next of Kin [address] [place] [phone] DOREEN Emergency Contact [address] [place] [phone] Insurance Providers: All historical and current [...] Name Patient's Relationship to Policy [place] [employer] [facility] (WNR) MEDICARE ADVANTAGE [facility] (R) June 26, 2016 [id number] JOAN WAGNER KARSTEN PATIENT [employer] MCR (WNR) MEDICARE ADVANTAGE [facility] (WNR) June 26, 2016 [id number] JOAN WAGNER KARSTEN PATIENT [employer] MCR (WNR) MEDICARE ADVANTAGE [facility] (WNR) June 26, 2016 [id number] JOAN WAGNER PATIENT Selected Encounter This section includes the information on record at [place] for the Encounter. Date/Time Encounter Type Encounter Description Reason Pro vider Source July 16, 2022 01:25 PM Inpatient Visit DAILY HOSPITALIZATION DATA [facility] Encounter Template Text not used by [place] [...] 20 appointments. The data comes from all [facility]. Appointment Date/Time Appointment Type Appointme nt Facility Name Jul 28, 2022 10:45 AM [facility] Aug 13, 2022 06:13 PM AMBULATORY - MEDICINE [facility] Aug 23, 2022 09:30 AM AMBULATORY - SURGERY [facility] Aug 23, 2022 09:45 AM [facility] Aug 23, 2022 10:30 AM AMBULATORY - MEDICINE [facility] Aug 23, 2022 10:31 AM AMBULATORY - MEDICINE [facility] Sep 06, 2022 10:15 AM AMBULATORY - SURGERY [facility] Oct 25, 2022 07:00 AM [facility] Oct 25, 2022 07:30 AM AMBULATORY - SURGERY [facility] Oct 25, 2022 09:00 AM AMBULATORY - SURGERY [facility] Active, Pending, and Scheduled Orders This section includes a listing of several types of active, pending, and scheduled orders, including clinic medications orders, diagnostic test orders, procedure orders and consult orders; where the start date of the order is 45 days before the date of the Encounter or 45 days after the date of theEncounter. The data comes from all [facility]. Test Date/Time Test Type Test Details Facility Name Jun 12, 2022 12:00 AM Laboratory - Chemistry Order CBC & DIFF BLOOD ONCO SP ONCE [facility] Jun 12, 2022 12:00 AM Laboratory - Chemistry Order COMPREHENSIVE METABOLIC PANEL+MG PLASMA ONCO SP [facility] Jun 12, 2022 12:00 AM Laboratory - Chemistry Order TSH W/REFLEX TO FREE T4 PLASMA ONCO SP ONCE [facility] July 14, 2022 12:00 AM Laboratory - Blood Bank Order ABO/RH - LAB BLOOD [facility] July 14, 2022 02:05 PM Laboratory - Blood Bank Order TYPE & SCREEN - LAB BLOOD [facility] Aug 07, 2022 11:23 AM Laboratory - Chemistry Order DRUG SCREEN PANEL,URINE URINE [facility] Aug 23, 2022 10:47 AM [...] Range Comment July 19, 2022 04:40 PM [facility] FINGERSTICK GLUCOSE Specimen Type: BLOOD Comment: Save Result Nurse Notified Ordering Provider: MACKENZIE COTTER Report Released Date/Time: July 19, 2022 05:00 PM Reporting Lab: [facility] [address] Performing Lab: [facility] [address] FINGERSTICK GLUCOSE 132 70-100 July 19, 2022 07:13 AM [facility] COMPREHENSIVE METABOLIC PANEL+MG Specimen Type: PLASMA No comment entered. Ordering Provider: MACKENZIE COTTER Report Released Date/Time: July 18, 2022 05:40 PM Reporting Lab: [facility] [address] Performing Lab: [facility] [address] CREATININE 0.9 0.7-1.2 UREA NITROGEN 24 8-26 [...] See_Commen t July 19, 2022 07:13 AM [facility] IRON GROUP Specimen Type: SERUM No comment entered. Ordering Provider: MACKENZIE COTTER Report Released Date/Time: July 18, 2022 05:40 PM Reporting Lab: [facility] [address] Performing Lab: [facility] [address] IRON 28 L 65-175 TIBC,CALCULATE D 223 L 250-425 FERRITIN 73.7 21.8-274.7 IRON SATURATION 13 L 20-50 TRANSFERRIN 178 163-382 July 19, 2022 07:13 AM [facility] CBC Specimen Type: BLOOD No comment entered. Ordering Provider: MACKENZIE COTTER Report Released Date/Time: July 18, 2022 05:40 PM Reporting Lab: [facility] [address] Performing Lab: [facility] [address] WBC 7.73 4.0-11.0 RBC 2.42 L 4.6-6.2 HGB 8.2 L 13.5-17.9 HCT 23.8 L 41-54 MCV 98.3 80-100 MCH 33.9 H 27-33 MCHC 34.5 32.0-37.5 PLT 155 150-400 MPV 9.6 7.4-10.4 RDW 13.5 11.5-14.5 July 19, 2022 05:44 AM [facility] FINGERSTICK GLUCOSE Specimen Type: BLOOD Comment: Save Result Nurse Notified Ordering Provider: MACKENZIE COTTER Report Released Date/Time: July 19, 2022 11:54 AM Reporting Lab: [facility] [address] Performing Lab: [facility] [address] FINGERSTICK GLUCOSE 137 70-100 July 18, 2022 10:51 PM [facility] FINGERSTICK GLUCOSE Specimen Type: BLOOD Comment: Save Result Nurse Notified Ordering Provider: MACKENZIE COTTER Report Released Date/Time: July 18, 2022 11:06 PM Reporting Lab: [facility] [address] Performing Lab: [facility] [address] FINGERSTICK GLUCOSE 163 70-100 July 17, 2022 06:51 AM [facility] BASIC METABOLIC PANEL+MG Specimen Type: PLASMA No comment entered. Ordering Provider: DANG VALLE Report Released Date/Time: July 16, 2022 09:37 AM Reporting Lab: [facility] [address] Performing Lab: [facility] [address] CREATININE 0.8 0.7-1.2 UREA NITROGEN 23 8-26 GLUCOSE 107 H 70-100 SODIUM 139 136-145 POTASSIUM 3.9 3.5-5.1 CHLORIDE 106 98-107 CO2 28 22-29 CALCIUM 9.1 8.4-10.2 MAGNESIUM 1.9 1.6-2.6 ANION GAP 5 5-15 .CREAT EGFR(CKD-EPI) >90 See_Commen t July 17, 2022 06:51 AM [facility] PROTHROMBIN TIME/INR Specimen Type: PLASMA No comment entered. Ordering Provider: DANG VALLE R Report Released Date/Time: July 16, 2022 09:37 AM Reporting Lab: [facility] [address] Performing Lab: [facility] [address] .INR 1.0 0.8-1.1 .PT 11.5 9.4-12.5 July 17, 2022 06:51 AM [facility] CBC Specimen Type: BLOOD No comment entered. Ordering Provider: DANG VALLE R Report Released Date/Time: July 16, 2022 09:37 AM Reporting Lab: [facility] [address] Performing Lab: [facility] [address] WBC 6.05 4.0-11.0 RBC 3.77 L 4.6-6.2 HGB 12.7 L 13.5-17.9 HCT 36.0 L 41-54 MCV 95.5 80-100 MCH 33.7 H 27-33 MCHC 35.3 32.0-37.5 PLT 179 150-400 MPV 9.4 7.4-10.4 RDW 13.2 11.5-14.5 July 13, 2022 11:22 AM [facility] COVID-19 AND FLU/RSV DIAG PANEL(CEPHEID) Specimen Typ e: NASOPHARYNGEAL Comment: Cepheid GeneXpert (618) Ordering Provider: WHITNEY ANDERSON Report Released Date/Time: July 13, 2022 11:04 AM Reporting Lab: [facility] [address] Performing Lab: [facility] [address] COVID-19 (CEPHEID) Not Detected Not Detected INFLUENZA A (PCR) Not Detected Not Detected INFLUENZA B (PCR) Not Detected Not Detected RSV (PCR) Not Detected Not Detected July 13, 2022 11:00 AM [facility] C-REACTIVE PROTEIN Specimen Type: SERUM Comment: Automated Differential Performed Ordering Provider: WHITNEY ANDERSON Report Released Date/Time: July 13, 2022 11:04 AM Reporting Lab: [facility] [address] Performing Lab: [facility] [address] C-REACTIVE PROTEIN 1.17 <5.00 July 13, 2022 11:00 AM [facility] PROTHROMBIN TIME/INR Specimen Type: PLASMA No comment entered. Ordering Provider: WHITNEY ANDERSON Report Released Date/Time: July 13, 2022 11:04 AM Reporting Lab: [facility] [address] Performing Lab: [facility] [address] .INR 0.9 0.8-1.1 .PT 11.1 9.4-12.5 July 13, 2022 11:00 AM [facility] SED RATE Specimen Type: BLOOD No comment entered. Ordering Provider: WHITNEY ANDERSON Report Released Date/Time: July 13, 2022 11:04 AM Reporting Lab: [facility] [address] Performing Lab: [facility] [address] SED RATE 10 5-15 July 13, 2022 11:00 AM [facility] CBC & DIFF Specimen Type: BLOOD Comment: Automated Differential Performed Ordering Provider: WHITNEY ANDERSON Report Released Date/Time: July 13, 2022 11:04 AM Reporting Lab: [facility] [address] Performing Lab: [facility] [address] WBC 8.82 4.0-11.0 RBC 3.89 L 4.6-6.2 [...] 0.03 0-0.1 July 13, 2022 11:00 AM [facility] COMPREHENSIVE METABOLIC PANEL+MG Specimen Type: PLASMA Comment: Automated Differential Performed Ordering Provider: WHITNEY ANDERSON Report Released Date/Time: July 13, 2022 11:04 AM Reporting Lab: [facility] [address] Performing Lab: [facility] [address] CREATININE 1.0 0.7-1.2 UREA NITROGEN 16 8-26 [...] Height Weight Body Mass Index Source July 16, 2022 11:50 PM 6 [facility] July 16, 2022 10:58 PM 9 [facility] July 16, 2022 10:54 PM 9 [facility] July 16, 2022 10:49 PM 98.3 F 59 /min 130/75 mm[Hg] 19 /min 96 % 0 [facility] July 16, 2022 07:50 PM 6 [facility] Social History: Smoking Status (Most [...] 10, 2022 09:15 AM VA-TOBACCO FORMER USER [facility] Tobacco Use History This [...] 07:50 AM CHEST 1 VIEW: MARYJO WAGNER [id number] -1950 M Exm Date: JULY 20, 2022@07:50 Req Phys: MACKENZIE COTTER Darwin Pat Loc: 07-20-2022@08:26 Img Loc: MAIN X-RAY Service: PRIMARY CARE - MED OFFICE (Case [id number] COMPLETE) CHEST 1 VIEW (RAD Detailed) CPT:67978 Proc Modifiers : PORTABLE EXAM Reason for Study: see below. thanks. Clinical History: IS NOT under investigation for COVID-19 or is COVID-19 negative Please further evaluate for acute airspace disease given o2 requirement. Thanks. Responsible provider name and phone number to notify for critical findings if other than user placing the order and pager listed below: User placing orders pager: [phone] same LAST CREATININE 0.9 (07/19/22) Report Status: Verified Date Reported: JULY 20, 2022 Date Verified: JULY 20, 2022 Digital Associate Media Director E-Sig:/ES/JAMIE MIGUEL MD Report: EXAM: CHEST 1 [...] pager listed below: User placing orders pager: [phone] same LAST CREATININE 0. COMPARISON: Chest CT [...] Primary Interpreting Staff: JAMIE MIGUEL MD, RADIOLOGIST (Digital Associate Media Director) /JAMIE FRANCES [facility] July 18, 2022 12:59 PM ELBOW LEFT 2 VIEWS: MARYJO WAGNER [id number] -1950 M Exm Date: JULY 18, 2022@12:59 Req Phys: LEIF BALBUENA Pat Loc: OR-PACU/07-18-2022@13:59 Img Loc: MAIN X-RAY Service: ZZSURGICAL SERVICE (Case [id number] COMPLETE) ELBOW LEFT 2 VIEWS (RAD Detailed) CPT:77553 Proc Modifiers : PORTABLE EXAM, OPERATING ROOM EXAM Reason for Study: post-op Clinical History: post-op Report Status: Verified Date Reported: JULY 18, 2022 Date Verified: JULY 18, 2022 Digital Associate Media Director E-Sig:/ES/JAKUB LEE MD Report: EXAM: ELBOW LEFT [...] Primary Interpreting Staff: JAKUB LEE MD, RADIOLOGIST (Digital Associate Media Director) /[facility] JAKUB LEE [facility] July 18, 2022 07:30 AM FLUORO UP TO 1 HR PHYSICIAN TIME: MARYJO WAGNER [id number] -1950 M Exm Date: JULY 18, 2022@07:30 Req Phys: LEIF BALBUENA Loc: OR-PACU/07-18-2022@13:14 Img Loc: MAIN X-RAY Service: PRIMARY CARE - MED OFFICE (Case [id number] COMPLETE) FLUORO UP TO 1 HR PHYSICIAN TIME (RAD Detailed) CPT:92983 Proc Modifiers : PORTABLE EXAM, OPERATING ROOM EXAM, LEFT Reason for Study: Left distal humerous ORIF Clinical History: OR 7 Pathologic distal humeral shaft fracture Responsible provider name and phone number to notify for critical findings if other than user placing the order and pager listed below: User placing orders pager: Henry BALBUENA [phone] LAST CREATININE 0.8 (07/17/22) Report Status: Electronically Filed Date Reported: JULY 18, 2022 Report: Impression: Please see the full report for this procedure in CPRS patient progress notes. Fluoro guidance was provided during this procedure, but the study was not reviewed or verified by a [facility] radiologist. The radiation exposure dose has been recorded in the patient's chart. If you are unable to view this data, please contact the Imaging Department. VERIFIED BY: / *ELECTRONICALLY FILED* [facility] July 17, 2022 03:28 PM ABDOMINAL AORTOGRAM (P): BERNARDMARYJO DIRK [id number] -1950 M Exm Date: JULY 17, 2022@15:28 Req Phys: MALCOM LANGLEY Loc: 07-17-2022@15:54 Img Loc: INTERVENTIONAL RADIOLOGY Service: PRIMARY CARE - MED OFFICE (Case [id number] COMPLETE) ANGIOGRAPHY EXTREMITY UNILAT S&I (ANI Detailed) CPT:45728 Reason for Study: codes (Case 528 COMPLETE) IR AORTOGRAPHY ABDOMINAL W/O RUNO(ANI Detailed) CPT:10851 (Case 529 COMPLETE) IR FOREIGN BODY REMOVAL INTRAVASC(ANI Detailed) CPT:36868 (Case 532 COMPLETE) IR NEEDLE/INTRACATH PLACEMENT EXT(ANI Detailed) CPT:87264 (Case 533 COMPLETE) IR PLACEMENT OCCLUSIVE DEVICE SAM(ANI Detailed) CPT:G0269 Clinical History: codes Report Status: Verified Date Reported: JULY 17, 2022 Date Verified: JULY 17, 2022 Digital Associate Media Director E-Sig:/ES/MALCOM LANGLEY MD Report: RADIOLOGIST: Malcom Langley [...] and runoff. 12. Closure of right CERTIFIED MEDICAL RECORDS CODER with Angio-Seal device. HISTORY: Metastatic renal cell [...] Sheath removed over guidewire and a 5 spanish vascular sheath advanced over guidewire into the artery. An H1 catheter was advanced along with the guidewire into the thoracic arch and the left subclavian artery was selected. Catheter and the guidewire were advanced into the left brachial artery. The 5 Burundian sheath was exchanged for a 6 Burundian sheath that was advanced into the left [...] Sheath and catheters were removed and CERTIFIED MEDICAL RECORDS CODER arteriotomy was closed using Angioseal. There is patent hemostasis. No bleeding or hematoma noted. Sterile dressing applied. 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 Primary Interpreting Staff: MALCOM LANGLEY MD, INTERVENTIONAL RADIOLOGIST (Digital Associate Media Director) /[facility]COM HE [facility] July 17, 2022 07:30 AM RENAL ARTERY EMBOLIZATION (P): MARYJO WAGNER [id number] -1950 M Exm Date: JULY 17, 2022@07:30 Req Phys: WESTON VASQUEZ Pat Loc: 07-17-2022@15:46 Img Loc: INTERVENTIONAL RADIOLOGY Service: PRIMARY CARE - MED OFFICE (Case 130 COMPLETE) IR TRANSCATH EMBOLIZATION W/ANGIO(ANI Detailed) CPT:63414 Reason for Study: embolization of RCC mets to left humerus (Case 131 COMPLETE) IR ARTERIAL EMBOLIZATION OTHER TH(ANI Detailed) CPT:55204 (Case 132 COMPLETE) IR US GUIDANCE VASCULAR ACCESS (ANI Detailed) CPT:31682 Clinical History: [place] IS NOT under investigation for COVID-19 or [...] pager listed below: User placing orders pager: [phone] LAST CREATININE 1.0 (07/13/22) Report Status: Verified Date Reported: JULY 17, 2022 Date Verified: JULY 17, 2022 Digital Associate Media Director E-Sig:/ES/MALCOM LANGLEY MD Report: RADIOLOGIST: Malcom Langley [...] and runoff. 12. Closure of right CERTIFIED MEDICAL RECORDS CODER with Angio-Seal device. HISTORY: Metastatic renal cell [...] Sheath removed over guidewire and a 5 spanish vascular sheath advanced over guidewire into the artery. An H1 catheter was advanced along with the guidewire into the thoracic arch and the left subclavian artery was selected. Catheter and the guidewire were advanced into the left brachial artery. The 5 Burundian sheath was exchanged for a 6 Burundian sheath that was advanced into the left [...] Sheath and catheters were removed and CERTIFIED MEDICAL RECORDS CODER arteriotomy was closed using Angioseal. There is patent hemostasis. No bleeding or hematoma noted. Sterile dressing applied. 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 Primary Interpreting Staff: MALCOM LANGLEY MD, INTERVENTIONAL RADIOLOGIST (Digital Associate Media Director) /[facility] July 14, 2022 06:44 AM HUMERUS LEFT MINIMUM 2 VIEWS: MARYJO WAGNER [id number] -1950 M Ex Date: JULY 14, 2022@06:44 Req Phys: PEDROHERBERTJAIRO [facility] Loc: 07-14-2022@07:13 Img Loc: MAIN X-RAY Service: PRIMARY CARE - MED OFFICE (Case [id number] COMPLETE) HUMERUS LEFT MINIMUM 2 VIEWS (RAD Detailed) CPT:59990 Reason for Study: post reduction Clinical History: Report Status: Verified Date Reported: JULY 14, 2022 Date Verified: JULY 14, 2022 Digital Associate Media Director E-Sig: Report: HUMERUS LEFT MINIMUM 2 VIEWS [...] less likely. READING PHYSICIAN: Xavier Merrill MD -[id number] 07/14/2022 5:11 PDT [facility] National Teleradiology Program [phone] (For Medical Practitioner Use Only) Attention Patients / Veterans: If you have questions or concerns about these test results, please contact your ordering provider or primary care team. Primary Interpreting Staff: RADIOLOGY,OUTSIDE SERVICE, Staff Physician / RADIOLOGY,OUTSIDE SERVICE [facility] July 13, 2022 10:07 AM ELBOW LEFT 3 OR MORE VIEWS: MARYJO WAGNER [id number] -1950 M Ex Date: JULY 13, 2022@10:07 Req Phys: WHITNEY ANDERSON Pat Loc: [facility] EMERGENCY DEPT WALK-IN (Re Img Loc: MAIN X-RAY Service: Unknown (Case [id number] COMPLETE) ELBOW LEFT 3 OR MORE VIEWS (RAD Detailed) CPT:77817 Proc Modifiers : LEFT Reason for Study: [...] pager listed below: User placing orders pager: [phone] LAST CREATININE 0.8 (05/10/22) Report Status: Verified Date Reported: JULY 13, 2022 Date Verified: JULY 13, 2022 Digital Associate Media Director E-Sig:/SANGITA/ALBINA COWAN MD, FACR, CCD Report: EXAMINATION: [...] Staff: ALBINA COWAN MD, FACR, STAFF RADIOLOGIST (Digital Associate Media Director) /[facility] ALBINA COWAN [facility] July 13, 2022 10:07 AM FOREARM LEFT 2 VIEWS: MAYRJO WAGNER [id number] -1950 M Exm Date: JULY 13, 2022@10:07 Req Phys: WHITNEY ANDERSON Pat Loc: [facility] EMERGENCY DEPT WALK-IN (Re Img Loc: MAIN X-RAY Service: Unknown (Case [id number] COMPLETE) FOREARM LEFT 2 VIEWS (RAD Detailed) CPT:66715 Proc Modifiers : LEFT Reason for Study: [...] pager listed below: User placing orders pager: [phone] LAST CREATININE 0.8 (05/10/22) Report Status: Verified Date Reported: JULY 13, 2022 Date Verified: JULY 13, 2022 [employer] E-Sig:/SANGITA/ALBINA COWAN MD, FACR, CCD Report: EXAMINATION: [...] Staff: ALBINA COWAN MD, FACR, STAFF RADIOLOGIST (Digital Associate Media Director) /ALBINA NATHAN [facility] July 13, 2022 10:07 AM HUMERUS LEFT MINIMUM 2 VIEWS: MARYJO WAGNER [id number] -1950 M Exm Date: JULY 13, 2022@10:07 Req Phys: MONICAWHITNEY TOMAS Pat Loc: [facility] EMERGENCY DEPT WALK-IN (Re Img Loc: MAIN X-RAY Service: Unknown (Case [id number] COMPLETE) HUMERUS LEFT MINIMUM 2 VIEWS (RAD Detailed) CPT:17607 Proc Modifiers : LEFT Reason for Study: L arm pain Clinical History: [place] IS NOT under investigation for COVID-19 or is COVID-19 negative Atraumatic left upper extremity pain that is located midshaft humerus distally to the mid forearm. Clinical concern for dislocation versus fracture versus bone mets Responsible provider name and phone number to notify for critical findings if other than user placing the order and pager listed below: User placing orders pager: [phone] LAST CREATININE 0.8 (05/10/22) Report Status: Verified Date Reported: JULY 13, 2022 Date Verified: JULY 13, 2022 Digital Associate Media Director E-Sig:/ES/ALBINA COWAN MD, FACR, [facility] Report: EXAMINATION: HUMERUS LEFT MINIMUM 2 VIEWS [...] Staff: ALBINA COWAN MD, FACR, STAFF RADIOLOGIST (Digital Associate Media Director) /ALBINA NATHAN [facility] Pathology Reports: +/- 30 days [...] COSIGNER: URGENCY: STATUS: COMPLETED $APHDR Reporting Lab: [facility] [CLIA# [id number]] [place] [address] - - - - - - - [...] entirely submitted in A-D. CE. (D). [facility] FROZEN SECTION DIAGNOSES: SPEC. 1 [...] STAFF PATHOLOGIST, PATHOLOGY & LABORATORY MED [facility] Signed July 21, 2022@14:37 Performing Laboratory: Surgical Pathology Report Performed By: [facility] [CLIA# [id number]] [place] [address] $FTR - - - - - - [...] - - MARYJO WAGNER STANDARD FORM 515 ID:[id number] SEX:M :1950 AGE: 72 LOC:[facility] PATHOLOGY PRO FEE ADM:June DX:PATHOLOGIC FX LF HUMERUS PCP: Leif Balbuena MD /sangita/ JIAN SANDOVAL STAFF PATHOLOGIST, PATHOLOGY & LABORATORY MED C Signed: 07/21/2022 14:37 JIAN SANDOVAL [facility]
--- OUTSIDE RECORDS SUMMARY | 2023-03-24 09:00 | XMS_ITS | Encounter Summary ---
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 [facility] Organization Department of [facility] Address [address] [place] [address] Support Name Relationship Address Phone DOREEN WAGNER Next of Kin [phone] [place] [phone] DOREEN Emergency Contact [phone] [place] [phone] Insurance Providers: All historical and current [...] Relationship to Policy Casey HUMANA [facility] (WNR) MEDICARE ADVANTAGE [facility] ([facility]) June 26, 2016 [id number] CARSONJOAN ROWELL PATIENT HUMANA MCR (WNR) MEDICARE ADVANTAGE [facility] ([facility]) June 26, 2016 [id number] JOAN WAGNER KARSTEN PATIENT [employer]MANA MCR (WNR) MEDICARE ADVANTAGE [facility] (R) June 26, 2016 [id number] JOAN WAGNER KARSTEN PATIENT Selected Encounter This section includes the information on record at NH for the Encounter. Date/Time Encounter Type Encounter Description Reason Pro vider Source July 15, 2022 01:00 AM Inpatient Visit ADMIN [facility] (OX [facility]CTORY) SYSTEM,[facility] Encounter Template Text not used [...] AM [facility] Aug 13, 2022 06:13 PM [facility] Aug 23, 2022 09:30 AM AMBULATORY - SURGERY [facility] Aug 23, 2022 09:45 AM [facility] Aug 23, 2022 10:30 AM AMBULATORY - MEDICINE [facility] Aug 23, 2022 10:31 AM AMBULATORY - MEDICINE [facility] Sep 06, 2022 10:15 AM AMBULATORY - SURGERY [facility] Oct 25, 2022 07:00 AM [facility] Oct 25, 2022 07:30 AM AMBULATORY [...] CBC & DIFF BLOOD ONCO SP ONCE [facility] Jun 12, 2022 12:00 AM Laboratory - Chemistry Order TSH W/REFLEX TO FREE T4 PLASMA ONCO SP ONCE [facility] Jun 12, 2022 12:00 AM Laboratory - Chemistry Order COMPREHENSIVE METABOLIC PANEL+MG PLASMA ONCO SP ONCE [facility] July 14, 2022 12:00 AM Laboratory - Blood Bank Order ABO/RH - LAB BLOOD [facility] July 14, 2022 02:05 PM Laboratory - Blood Bank Order TYPE & SCREEN - LAB BLOOD [facility] Aug 07, 2022 11:23 AM Laboratory - Chemistry Order DRUG SCREEN PANEL,URINE URINE ONCE [facility] Aug 23, 2022 10:47 AM Laboratory - Chemistry Order URINALYSIS URINE ER STAT WC [facility] Lab Results: +/- 30 [...] Range Comment July 19, 2022 04:40 PM [facility] FINGERSTICK GLUCOSE Specimen Type: BLOOD Comment: Save Result Nurse Notified Ordering Provider: MACKENZIE COTTER Report Released Date/Time: July 19, 2022 05:00 PM Reporting Lab: [facility] [id number] Performing Lab: [facility] [address] FINGERSTICK GLUCOSE 132 70-100 July 19, 2022 07:13 AM [facility] COMPREHENSIVE METABOLIC PANEL+MG Specimen Type: PLASMA No comment entered. Ordering Provider: MACKENZIE COTTER Report Released Date/Time: July 18, 2022 05:40 PM Reporting Lab: [facility] [address] Performing Lab: [facility] [address] CREATININE 0.9 0.7-1.2 UREA NITROGEN 24 8-26 [...] See_Commen t July 19, 2022 07:13 AM [facility] IRON GROUP Specimen Type: SERUM No comment entered. Ordering Provider: MACKENZIE COTTER Report Released Date/Time: July 18, 2022 05:40 PM Reporting Lab: [facility] [address] Performing Lab: [facility] [address] IRON 28 L 65-175 TIBC,CALCULATE D 223 L 250-425 FERRITIN 73.7 21.8-274.7 IRON SATURATION 13 L 20-50 TRANSFERRIN 178 163-382 July 19, 2022 07:13 AM [facility] CBC Specimen Type: BLOOD No comment entered. Ordering Provider: MACKENZIE COTTER Report Released Date/Time: July 18, 2022 05:40 PM Reporting Lab: [facility] [address] Performing Lab: [facility] [address] WBC 7.73 4.0-11.0 RBC 2.42 L 4.6-6.2 HGB 8.2 L 13.5-17.9 HCT 23.8 L 41-54 MCV 98.3 80-100 MCH 33.9 H 27-33 MCHC 34.5 32.0-37.5 PLT 155 150-400 MPV 9.6 7.4-10.4 RDW 13.5 11.5-14.5 July 19, 2022 05:44 AM [facility] FINGERSTICK GLUCOSE Specimen Type: BLOOD Comment: Save Result Nurse Notified Ordering Provider: MACKENZIE COTTER Report Released Date/Time: July 19, 2022 11:54 AM Reporting Lab: [facility] [address] Performing Lab: [facility] [address] FINGERSTICK GLUCOSE 137 70-100 July 18, 2022 10:51 PM [facility] FINGERSTICK GLUCOSE Specimen Type: BLOOD Comment: Save Result Nurse Notified Ordering Provider: MACKENZIE COTTER Report Released Date/Time: July 18, 2022 11:06 PM Reporting Lab: [facility] [address] Performing Lab: [facility] [address] FINGERSTICK GLUCOSE 163 70-100 July 17, 2022 06:51 AM [facility] BASIC METABOLIC PANEL+MG Specimen Type: PLASMA No comment entered. Ordering Provider: DANG VALLE Report Released Date/Time: July 16, 2022 09:37 AM Reporting Lab: [facility] [address] Performing Lab: [facility] [address] CREATININE 0.8 0.7-1.2 UREA NITROGEN 23 8-26 GLUCOSE 107 H 70-100 SODIUM 139 136-145 POTASSIUM 3.9 3.5-5.1 CHLORIDE 106 98-107 CO2 28 22-29 CALCIUM 9.1 8.4-10.2 MAGNESIUM 1.9 1.6-2.6 ANION GAP 5 5-15 .CREAT EGFR(CKD-EPI) >90 See_Commen t July 17, 2022 06:51 AM [facility] PROTHROMBIN TIME/INR Specimen Type: PLASMA No comment entered. Ordering Provider: DANG VALLE R Report Released Date/Time: July 16, 2022 09:37 AM Reporting Lab: [facility] [address] Performing Lab: [facility] [address] .INR 1.0 0.8-1.1 .PT 11.5 9.4-12.5 July 17, 2022 06:51 AM [facility] CBC Specimen Type: BLOOD No comment entered. Ordering Provider: DANG VALLE R Report Released Date/Time: July 16, 2022 09:37 AM Reporting Lab: [facility] [address] Performing Lab: [facility] [address] WBC 6.05 4.0-11.0 RBC 3.77 L 4.6-6.2 HGB 12.7 L 13.5-17.9 HCT 36.0 L 41-54 MCV 95.5 80-100 MCH 33.7 H 27-33 MCHC 35.3 32.0-37.5 PLT 179 150-400 MPV 9.4 7.4-10.4 RDW 13.2 11.5-14.5 July 13, 2022 11:22 AM [facility] COVID-19 AND FLU/RSV DIAG PANEL(CEPHEID) Specimen Typ e: NASOPHARYNGEAL Comment: Cepheid GeneXpert (618) Ordering Provider: WHITNEY ANDERSON Report Released Date/Time: July 13, 2022 11:04 AM Reporting Lab: [facility] [address] Performing Lab: [facility] [address] COVID-19 (CEPHEID) Not Detected See_Commen t INFLUENZA A (PCR) Not Detected See_Commen t INFLUENZA B (PCR) Not Detected See_Commen t RSV (PCR) Not Detected See_Com men t July 13, 2022 11:00 AM [facility] PROTHROMBIN TIME/INR Specimen Type: PLASMA No comment entered. Ordering Provider: WHITNEY ANDERSON Report Released Date/Time: July 13, 2022 11:04 AM Reporting Lab: [facility] [address] Performing Lab: [facility] [address] .INR 0.9 0.8-1.1 .PT 11.1 9.4-12.5 July 13, 2022 11:00 AM [facility] C-REACTIVE PROTEIN Specimen Type: SERUM Comment: Automated Differential Performed Ordering Provider: WHITNEY ANDERSON Report Released Date/Time: July 13, 2022 11:04 AM Reporting Lab: [facility] [address] Performing Lab: [facility] [address] C-REACTIVE PROTEIN 1.17 <5.00 July 13, 2022 11:00 AM [facility] SED RATE Specimen Type: BLOOD No comment entered. Ordering Provider: WHITNEY ANDERSON Report Released Date/Time: July 13, 2022 11:04 AM Reporting Lab: [facility] [address] Performing Lab: [facility] [address] SED RATE 10 5-15 July 13, 2022 11:00 AM [facility] CBC & DIFF Specimen Type: BLOOD Comment: Automated Differential Performed Ordering Provider: WHITNEY ANDERSON Report Released Date/Time: July 13, 2022 11:04 AM Reporting Lab: [facility] [address] Performing Lab: [facility] [address] WBC 8.82 4.0-11.0 RBC 3.89 L 4.6-6.2 [...] 0.03 0-0.1 July 13, 2022 11:00 AM [facility] COMPREHENSIVE METABOLIC PANEL+MG Specimen Type: PLASMA Comment: Automated Differential Performed Ordering Provider: WHITNEY ANDERSON Report Released Date/Time: July 13, 2022 11:04 AM Reporting Lab: [facility] [address] Performing Lab: [facility] [address] CREATININE 1.0 0.7-1.2 UREA NITROGEN 16 8-26 [...] 136/73 mm[Hg] 19 /min 95 % 0 [facility] July 15, 2022 09:35 PM 7 [facility] July 15, 2022 08:35 PM 7 [facility] July 15, 2022 07:48 PM 7 [facility] July 15, 2022 07:47 PM 8 [facility] Social History: Smoking Status (Most current) [...] 10, 2022 09:15 AM VA-TOBACCO FORMER USER [facility] Tobacco Use History This section includes a history of the smoking, or tobacco-related health factors, that were collected on or before the date of the Encounter. The data comes from the [place] facility where the Encounter took place. Date/Time Smoking Status/Tobacco Use Comment F acility May 10, 2022 09:15 AM VA-TOBACCO QUIT 15 YRS OR MORE [facility] May 11, 2021 09:15 AM VA-TOBACCO FORMER USER [facility] May 11, 2021 09:15 AM VA-TOBACCO QUIT 15 YRS OR MORE [facility] Nov 22, 2018 01:36 PM VA-TOBACCO NEVER USED [facility] Nov 12, 2017 07:35 AM FORMER TOBACCO USER 7Y OR GREATE R [facility] Nov 06, 2016 09:05 AM FORMER TOBACCO USER 7Y OR GREATE R [facility] Sep 27, 2015 09:42 AM FORMER TOBACCO USER 7Y OR GREATE R [facility] Sep 25, 2014 07:55 AM FORMER TOBACCO USER 7Y OR GREATE R [facility] Sep 08, 2013 07:48 AM FORMER TOBACCO USER 7Y OR GREATE R [facility] July 09, 2012 09:20 AM FORMER TOBACCO USE >1Y <7Y [facility] Jun 06, 2011 07:53 AM FORMER TOBACCO USE >1Y <7Y [facility] Sep 09, 2009 03:03 PM FORMER TOBACCO USE >1Y <7Y [facility] Aug 11, 2008 01:06 PM FORMER TOBACCO USE <1Y [facility] Sep 19, 2007 02:52 PM CURRENT TOBACCO USER [facility] Sep 03, 2006 03:32 PM CURRENT TOBACCO USER [facility] Advance Directives: All historical [...] Mar 18, 2003 ADVANCE DIRECTIVE FARHAT MELGAR [facility] Radiology Reports: +/- 30 [...] 07:50 AM CHEST 1 VIEW: MARYJO WAGNER [id number] -1950 M Exm Date: JULY 20, 2022@07:50 Req Phys: MACKENZIE COTTER Pat Loc: 07-20-2022@08:26 Img Loc: MAIN X-RAY Service: PRIMARY CARE - MED OFFICE (Case [id number] COMPLETE) CHEST 1 VIEW (RAD Detailed) CPT:76242 Proc Modifiers : PORTABLE EXAM Reason for Study: see below. thanks. Clinical History: [place] IS NOT under investigation for COVID-19 or is COVID-19 negative Please further evaluate for acute airspace disease given o2 requirement. Thanks. Responsible provider name and phone number to notify for critical findings if other than user placing the order and pager listed below: User placing orders pager: [phone] same LAST CREATININE 0.9 (07/19/22) Report Status: Verified Date Reported: JULY 20, 2022 Date Verified: JULY 20, 2022 Discovery Guide E-Sig:/ES/JAMIE MIGUEL MD Report: EXAM: CHEST 1 VIEW HISTORY: see below. thanks. Reason for Study: see below. thanks. [place] IS NOT under investigation for COVID-19 or is COVID-19 negative Please further evaluate for acute airspace disease given o2 requirement. Thanks. Responsible provider name and phone number to notify for critical findings if other than user placing the order and pager listed below: User placing orders pager: [phone] same LAST CREATININE 0. COMPARISON: Chest CT [...] Primary Interpreting Staff: JAMIE MIGUEL MD, RADIOLOGIST (Discovery Guide) /JAMIE FRANCES [facility] July 18, 2022 12:59 PM ELBOW LEFT 2 VIEWS: MARYJO WAGNER [id number] -1950 M Exm Date: JULY 18, 2022@12:59 Req Phys: LEIF BALBUENA Loc: OR-PACU/07-18-2022@13:59 Img Loc: MAIN X-RAY Service: ZZSURGICAL SERVICE (Case [id number] COMPLETE) ELBOW LEFT 2 VIEWS (RAD Detailed) CPT:59537 Proc Modifiers : PORTABLE EXAM, OPERATING ROOM EXAM Reason for Study: post-op Clinical History: post-op Report Status: Verified Date Reported: JULY 18, 2022 Date Verified: JULY 18, 2022 Discovery Guide E-Sig:/ES/JAKUB LEE MD Report: EXAM: ELBOW LEFT [...] Primary Interpreting Staff: JAKUB LEE MD, RADIOLOGIST (Discovery Guide) /JAKUB LUCERO [facility] July 18, 2022 07:30 AM FLUORO UP TO 1 HR PHYSICIAN TIME: MARYJO WAGNER [id number] -1950 M Exm Date: JULY 18, 2022@07:30 Req Phys: LEIF BALBUENA Loc: OR-PACU/07-18-2022@13:14 Img Loc: MAIN X-RAY Service: PRIMARY CARE - MED OFFICE (Case [id number] COMPLETE) FLUORO UP TO 1 HR PHYSICIAN TIME (RAD Detailed) CPT:65225 Proc Modifiers : PORTABLE EXAM, OPERATING ROOM EXAM, LEFT Reason for Study: Left distal humerous ORIF Clinical History: OR 7 Pathologic distal humeral shaft fracture Responsible provider name and phone number to notify for critical findings if other than user placing the order and pager listed below: User placing orders pager: Henry BALBUENA [phone] LAST CREATININE 0.8 (07/17/22) Report Status: Electronically Filed Date Reported: JULY 18, 2022 Report: Impression: Please see the full report for this procedure in [facility] patient progress notes. Fluoro guidance was provided during this procedure, but the study was not reviewed or verified by a [facility] radiologist. The radiation exposure dose has been recorded in the patient's chart. If you are unable to view this data, please contact the Imaging Department. VERIFIED BY: / *ELECTRONICALLY FILED* [facility] July 17, 2022 03:28 PM ABDOMINAL AORTOGRAM (P): MARYJO WAGNER [id number] -1950 M Exm Date: JULY 17, 2022@15:28 Req Phys: MALCOM LANGLEY [facility] Loc: 07-17-2022@15:54 Img Loc: INTERVENTIONAL RADIOLOGY Service: PRIMARY CARE - MED OFFICE (Case [id number] COMPLETE) ANGIOGRAPHY EXTREMITY UNILAT S&I (ANI Detailed) CPT:44878 Reason for Study: codes (Case 528 COMPLETE) IR AORTOGRAPHY ABDOMINAL W/O RUNO(ANI Detailed) CPT:68857 (Case 529 COMPLETE) IR FOREIGN BODY REMOVAL INTRAVASC(ANI Detailed) CPT:00992 (Case 532 COMPLETE) IR NEEDLE/INTRACATH PLACEMENT EXT(ANI Detailed) CPT:34923 (Case 533 COMPLETE) IR PLACEMENT OCCLUSIVE DEVICE SAM(ANI Detailed) CPT:G0269 Clinical History: codes Report Status: Verified Date Reported: JULY 17, 2022 Date Verified: JULY 17, 2022 Discovery Guide E-Sig:/ES/MALCOM LANGLEY MD Report: RADIOLOGIST: Malcom Langley [...] angiogram and runoff. 12. Closure of right POWER SUPERINTENDENT with Angio-Seal device. HISTORY: Metastatic renal cell [...] Sheath removed over guidewire and a 5 pakistani vascular sheath advanced over guidewire into the [...] arteries. Sheath and catheters were removed and POWER SUPERINTENDENT arteriotomy was closed using Angioseal. There is patent hemostasis. No bleeding or hematoma noted. Sterile dressing applied. 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 Primary Interpreting Staff: MALCOM LANGLEY MD, INTERVENTIONAL RADIOLOGIST (Discovery Guide) /MALCOM HE [facility] July 17, 2022 07:30 AM RENAL ARTERY EMBOLIZATION (P): MARYJO WAGNER [id number] -1950 M Exm Date: JULY 17, 2022@07:30 Req Phys: WESTON VASQUEZ [facility] Loc: 07-17-2022@15:46 Img Loc: INTERVENTIONAL RADIOLOGY Service: PRIMARY CARE - MED OFFICE (Case 130 COMPLETE) IR TRANSCATH EMBOLIZATION W/ANGIO(ANI Detailed) CPT:58602 Reason for Study: embolization of RCC mets to left humerus (Case 131 COMPLETE) IR ARTERIAL EMBOLIZATION OTHER TH(ANI Detailed) CPT:66553 (Case 132 COMPLETE) IR US GUIDANCE VASCULAR ACCESS (ANI Detailed) CPT:67506 Clinical History: [place] IS NOT under investigation for COVID-19 or [...] pager listed below: User placing orders pager: [phone] LAST CREATININE 1.0 (07/13/22) Report Status: Verified Date Reported: JULY 17, 2022 Date Verified: JULY 17, 2022 Discovery Guide E-Sig:/ES/MALCOM LANGLEY MD Report: RADIOLOGIST: Malcom Langley [...] angiogram and runoff. 12. Closure of right POWER SUPERINTENDENT with Angio-Seal device. HISTORY: Metastatic renal cell [...] Sheath removed over guidewire and a 5 pakistani vascular sheath advanced over guidewire into the [...] arteries. Sheath and catheters were removed and POWER SUPERINTENDENT arteriotomy was closed using Angioseal. There is patent hemostasis. No bleeding or hematoma noted. Sterile dressing applied. 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 Primary Interpreting Staff: MALCOM LANGLEY MD, INTERVENTIONAL RADIOLOGIST (Discovery Guide) /MALCOM HE [facility] July 14, 2022 06:44 AM HUMERUS LEFT MINIMUM 2 VIEWS: MARYJO WAGNER [id number] -1950 M Exm Date: JULY 14, 2022@06:44 Req Phys: WESTON VASQUEZ [facility] Loc: 07-14-2022@07:13 Img Loc: MAIN X-RAY Service: PRIMARY CARE - MED OFFICE (Case [id number] COMPLETE) HUMERUS LEFT MINIMUM 2 VIEWS (RAD Detailed) CPT:40758 Reason for Study: post reduction Clinical History: Report Status: Verified Date Reported: JULY 14, 2022 Date Verified: JULY 14, 2022 Discovery Guide E-Sig: Report: HUMERUS LEFT MINIMUM 2 VIEWS [...] less likely. READING PHYSICIAN: Xavier Merrill MD -[phone] 07/14/2022 5:11 PDT [facility] National Teleradiology Program [phone] (For Medical Practitioner Use Only) Attention Patients / Veterans: If you have questions or concerns about these test results, please contact your ordering provider or primary care team. Primary Interpreting Staff: RADIOLOGY,OUTSIDE SERVICE, Staff Physician / RADIOLOGY,OUTSIDE SERVICE [facility] July 13, 2022 10:07 AM HUMERUS LEFT MINIMUM 2 VIEWS: MARYJO WAGNER [id number] -1950 M Ex Date: JULY 13, 2022@10:07 Req Phys: WHITNEY ANDERSON Pat Loc: [facility] EMERGENCY DEPT WALK-IN (Re Img Loc: MAIN X-RAY Service: Unknown (Case [id number] COMPLETE) HUMERUS LEFT MINIMUM 2 VIEWS (RAD Detailed) CPT:92687 Proc Modifiers : LEFT Reason for Study: [...] pager listed below: User placing orders pager: [phone] LAST CREATININE 0.8 (05/10/22) Report Status: Verified Date Reported: JULY 13, 2022 Date Verified: JULY 13, 2022 Discovery Guide E-Sig:/ES/ALBINA COWAN MD, FACR, CCD Report: EXAMINATION: [...] Staff: ALBINA COWAN MD, FACR, STAFF RADIOLOGIST (Discovery Guide) /BSF ALBINA COWAN [facility] July 13, 2022 10:07 AM FOREARM LEFT 2 VIEWS: MARYJO WAGNER [id number] -1950 M Exm Date: JULY 13, 2022@10:07 Req Phys: WHITNEY ANDERSON Pat Loc: [facility] EMERGENCY DEPT WALK-IN ( Im Loc: MAIN X-RAY Service: Unknown (Case [id number] COMPLETE) FOREARM LEFT 2 VIEWS (RAD Detailed) CPT:50000 Proc Modifiers : LEFT Reason for Study: L arm pain Clinical History: [place] IS NOT under investigation for COVID-19 or is COVID-19 negative Atraumatic left upper extremity pain that is located midshaft humerus distally to the mid forearm. Clinical concern for dislocation versus fracture versus bone mets Responsible provider name and phone number to notify for critical findings if other than user placing the order and pager listed below: User placing orders pager: [phone] LAST CREATININE 0.8 (05/10/22) Report Status: Verified Date Reported: JULY 13, 2022 Date Verified: JULY 13, 2022 Fitly E-Sig:/ES/ALBINA COWAN MD, FACR, CCD Report: EXAMINATION: [...] Staff: ALBINA COWAN MD, FACR, STAFF RADIOLOGIST (Discovery Guide) /ALBINA NATHAN [facility] July 13, 2022 10:07 AM ELBOW LEFT 3 OR MORE VIEWS: MARYJO WAGNER [id number] -1950 M Exm Date: JULY 13, 2022@10:07 Req Phys: WHITNEY ANDERSON Pat Loc: [facility] EMERGENCY DEPT WALK-IN (Re Img Loc: MAIN X-RAY Service: Unknown (Case [id number] COMPLETE) ELBOW LEFT 3 OR MORE VIEWS (RAD Detailed) CPT:70589 Proc Modifiers : LEFT Reason for Study: L arm pain Clinical History: [place] IS NOT under investigation for COVID-19 or is COVID-19 negative Atraumatic left upper extremity pain that is located midshaft humerus distally to the mid forearm. Clinical concern for dislocation versus fracture versus bone mets Responsible provider name and phone number to notify for critical findings if other than user placing the order and pager listed below: User placing orders pager: [phone] LAST CREATININE 0.8 (05/10/22) Report Status: Verified Date Reported: JULY 13, 2022 Date Verified: JULY 13, 2022 Discovery Guide E-Sig:/ES/ALBINA COWAN MD, FACR, CCD Report: EXAMINATION: [...] Staff: ALBINA COWAN MD, FACR, STAFF RADIOLOGIST (Discovery Guide) /ALBINA NATHAN [facility] Pathology Reports: +/- 30 [...] COSIGNER: URGENCY: STATUS: COMPLETED $APHDR Reporting Lab: [facility] [CLIA# [id number]] [place] [address] - - - - - - - [...] SANDOVAL STAFF PATHOLOGIST, PATHOLOGY & LABORATORY [facility] [place] Signed July 21, 2022@14:37 Performing Laboratory: Surgical Pathology Report Performed By: [facility] [CLIA# [id number]] [place] [address] $FTR - - - - - - - - - - - - - - - - - - - - - - - - - - - - - - - - - - - - - - - - (End of report) JIAN SANDOVAL MD [facility] Date July 21, 2022 - - - - - - - - - - - - - - - - - - - - - - - - - - - - - - - - - - - - - - - - MARYJO WAGNER STANDARD FORM 515 ID:[id number] SEX:M :1950 AGE: 72 LOC:[facility] PATHOLOGY PRO FEE ADM:June DX:PATHOLOGIC FX LF HUMERUS PCP: Leif Balbuena MD /sangita/ JIAN SANDOVAL STAFF PATHOLOGIST, PATHOLOGY & LABORATORY [facility] [place] Signed: 07/21/2022 14:37 JIAN SANDOVAL [facility] Encounter Notes: All associated encounter notes This section contains the clinical notes associated to the Encounter. Date/Time Encounter Note(s) Provider Source July 15, 2022 01:00 AM CRITICAL CARE UNIT NOTE: LOCAL TITLE: [facility] INPATIENT FLOWSHEET STANDARD TITLE: CRITICAL CARE UNIT NOTE DATE OF NOTE: JULY 15, 2022@01:00 ENTRY DATE: JULY 16, 2022@14:33:36 AUTHOR: SYSTEM,SABINOSkytreeGodfrey EXP COSIGNER: URGENCY: STATUS: COMPLETED This is a place casey only. Please see MobileGlobe to view document. /es/ CIS-ARK SYSTEM ICU DOCUMENT IMPORT Signed: 07/16/2022 14:33 SYSTEM,[employer]-ARK [facility] July 15, 2022 01:00 AM CRITICAL CARE UNIT NOTE: LOCAL TITLE: [facility] RESPIRATORY THERAPY FLOWSHEET STANDARD TITLE: CRITICAL CARE UNIT NOTE DATE OF NOTE: JULY 15, 2022@01:00 ENTRY DATE: JULY 16, 2022@15:05:05 AUTHOR: JAZProa Medical-[facility] EXP COSIGNER: URGENCY: STATUS: COMPLETED This is a place casey only. Please see MobileGlobe to view document. /es/ CIS-ARK SYSTEM ICU DOCUMENT IMPORT Signed: 07/16/2022 15:05 SYSTEM,CIS-ARK [facility]
--- OUTSIDE RECORDS SUMMARY | 2023-03-24 09:00 | XMS_ITS ---
DAILY HOSPITALIZATION DATA 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 of Vetera [facility] Address [address] [place] [address] Support Name Relationship Address Phone DOREEN WAGNER Next of Kin [address] [place] [phone] DOREEN Emergency Contact [address] [place] [phone] Insurance Providers: All historical and current [...] Name Patient's Relationship to Policy [place] [employer] [facility] (WNR) MEDICARE ADVANTAGE [facility] (R) June 26, 2016 [id number] JOAN WAGNER KARSTEN PATIENT [employer] MCR (WNR) MEDICARE ADVANTAGE [facility] (WNR) June 26, 2016 [id number] JOAN WAGNER KARSTEN PATIENT [employer] MCR (WNR) MEDICARE ADVANTAGE [facility] (WNR) June 26, 2016 [id number] JOAN WAGNER PATIENT Selected Encounter This section includes the [place] for [place] Encounter. Date/Time Encounter Type Encounter Description Reason Pro vider Source July 16, 2022 02:23 AM Inpatient Visit DAILY HOSPITALIZATION DATA [facility] [...] appointments. The data comes from all [facility]. Appointment Date/Time Appointment Type Appointme nt Facility Name Jul 28, 2022 10:45 AM [facility] Aug 13, 2022 06:13 PM AMBULATORY - MEDICINE [facility] Aug 23, 2022 09:30 AM AMBULATORY - SURGERY [facility] Aug 23, 2022 09:45 AM [facility] Aug 23, 2022 10:30 AM AMBULATORY - MEDICINE [facility] Aug 23, 2022 10:31 AM AMBULATORY - MEDICINE [facility] Sep 06, 2022 10:15 AM AMBULATORY - SURGERY [facility] Oct 25, 2022 07:00 AM [facility] Oct 25, 2022 07:30 AM AMBULATORY - SURGERY [facility] Oct 25, 2022 09:00 AM AMBULATORY - SURGERY [facility] Active, Pending, and Scheduled Orders This section includes a listing of several types of active, pending, and scheduled orders, including clinic medications orders, diagnostic test orders, procedure orders and consult orders; where the start date of the order is 45 days before the date of the Encounter or 45 days after the date of theEncounter. The data comes from all [facility]. Test Date/Time Test Type Test Details Facility Name Jun 12, 2022 12:00 AM Laboratory - Chemistry Order CBC & DIFF BLOOD ONCO SP ONCE [facility] Jun 12, 2022 12:00 AM Laboratory - Chemistry Order COMPREHENSIVE METABOLIC PANEL+MG PLASMA ONCO SP [facility] Jun 12, 2022 12:00 AM Laboratory [...] - Chemistry Order DRUG SCREEN PANEL,URINE URINE [facility] Aug 23, 2022 10:47 AM Laboratory - Chemistry Order URINALYSIS URINE ER STAT [facility] [...] 19, 2022 05:00 PM Reporting Lab: [facility] [id number] Performing Lab: [facility] [address] FINGERSTICK GLUCOSE 132 70-100 July 19, 2022 07:13 AM [facility] COMPREHENSIVE METABOLIC PANEL+MG Specimen Type: PLASMA No comment entered. Ordering Provider: MACKENZIE COTTER Report Released Date/Time: July 18, 2022 05:40 PM Reporting Lab: [facility] [address] Performing Lab: [facility] [address] CREATININE 0.9 0.7-1.2 UREA NITROGEN 24 8-26 [...] 18, 2022 05:40 PM Reporting Lab: [facility] [address] Performing Lab: [facility] [address] IRON 28 L 65-175 TIBC,CALCULATE D 223 L 250-425 FERRITIN 73.7 21.8-274.7 IRON SATURATION 13 L 20-50 TRANSFERRIN 178 163-382 July 19, 2022 07:13 AM [facility] CBC Specimen Type: BLOOD No comment entered. Ordering Provider: MACKENZIE COTTER Report Released Date/Time: July 18, 2022 05:40 PM Reporting Lab: [facility] [address] Performing Lab: [facility] [address] WBC 7.73 4.0-11.0 RBC 2.42 L 4.6-6.2 [...] 19, 2022 11:54 AM Reporting Lab: [facility] [address] Performing Lab: [facility] [address] FINGERSTICK GLUCOSE 137 70-100 July 18, 2022 10:51 PM [facility] FINGERSTICK GLUCOSE Specimen Type: BLOOD Comment: Save Result Nurse Notified Ordering Provider: MACKENZIE COTTER Report Released Date/Time: July 18, 2022 11:06 PM Reporting Lab: [facility] [address] Performing Lab: [facility] [address] FINGERSTICK GLUCOSE 163 70-100 July 17, 2022 06:51 AM [facility] BASIC METABOLIC PANEL+MG Specimen Type: PLASMA No comment entered. Ordering Provider: DANG VALLE Report Released Date/Time: July 16, 2022 09:37 AM Reporting Lab: [facility] [address] Performing Lab: [facility] [address] CREATININE 0.8 0.7-1.2 UREA NITROGEN 23 8-26 [...] 16, 2022 09:37 AM Reporting Lab: [facility] [address] Performing Lab: [facility] [address] .INR 1.0 0.8-1.1 .PT 11.5 9.4-12.5 July 17, 2022 06:51 AM [facility] CBC Specimen Type: BLOOD No comment entered. Ordering Provider: DANG VALLE R Report Released Date/Time: July 16, 2022 09:37 AM Reporting Lab: [facility] [address] Performing Lab: [facility] [address] WBC 6.05 4.0-11.0 RBC 3.77 L 4.6-6.2 [...] 13, 2022 11:04 AM Reporting Lab: [facility] [address] Performing Lab: [facility] [address] COVID-19 (CEPHEID) Not Detected See_Commen t INFLUENZA A (PCR) Not Detected See_Commen t INFLUENZA B (PCR) Not Detected See_Commen t RSV (PCR) Not Detected See_Com men t July 13, 2022 11:00 AM [facility] C-REACTIVE PROTEIN Specimen Type: SERUM Comment: Automated Differential Performed Ordering Provider: WHITNEY ANDERSON Report Released Date/Time: July 13, 2022 11:04 AM Reporting Lab: [facility] [address] Performing Lab: [facility] [address] C-REACTIVE PROTEIN 1.17 <5.00 July 13, 2022 11:00 AM [facility] PROTHROMBIN TIME/INR Specimen Type: PLASMA No comment entered. Ordering Provider: WHITNEY ANDERSON Report Released Date/Time: July 13, 2022 11:04 AM Reporting Lab: [facility] [address] Performing Lab: [facility] [address] .INR 0.9 0.8-1.1 .PT 11.1 9.4-12.5 July 13, 2022 11:00 AM [facility] SED RATE Specimen Type: BLOOD No comment entered. Ordering Provider: WHITNEY ANDERSON Report Released Date/Time: July 13, 2022 11:04 AM Reporting Lab: [facility] [address] Performing Lab: [facility] [address] SED RATE 10 5-15 July 13, 2022 11:00 AM [facility] CBC & DIFF Specimen Type: BLOOD Comment: Automated Differential Performed Ordering Provider: WHITNEY ANDERSON Report Released Date/Time: July 13, 2022 11:04 AM Reporting Lab: [facility] [address] Performing Lab: [facility] [address] WBC 8.82 4.0-11.0 RBC 3.89 L 4.6-6.2 [...] 13, 2022 11:04 AM Reporting Lab: [facility] [address] Performing Lab: [facility] [address] CREATININE 1.0 0.7-1.2 UREA NITROGEN 16 8-26 [...] Source July 16, 2022 11:50 PM 6 [facility] July 16, 2022 10:58 PM 9 [facility] July 16, 2022 10:54 PM 9 [facility] July 16, 2022 10:49 PM 98.3 F 59 /min 130/75 mm[Hg] 19 /min 96 % 0 [facility] July 16, 2022 07:50 PM 6 [facility] Social History: Smoking Status [...] Mar 18, 2003 ADVANCE DIRECTIVE FARHAT MELGAR [facility] Radiology Reports: +/- 30 days [...] 07:50 AM CHEST 1 VIEW: MARYJO WAGNER [id number] -1950 M Exm Date: JULY 20, 2022@07:50 Req Phys: MACKENZIE COTTER Pat Loc: 07-20-2022@08:26 Img Loc: MAIN X-RAY Service: PRIMARY CARE - MED OFFICE (Case [id number] COMPLETE) CHEST 1 VIEW (RAD Detailed) CPT:05464 Proc Modifiers : PORTABLE EXAM Reason for Study: see below. thanks. Clinical History: [place] IS NOT under investigation for COVID-19 or is COVID-19 negative Please further evaluate for acute airspace disease given o2 requirement. Thanks. Responsible provider name and phone number to notify for critical findings if other than user placing the order and pager listed below: User placing orders pager: [phone] same LAST CREATININE 0.9 (07/19/22) Report Status: Verified Date Reported: JULY 20, 2022 Date Verified: JULY 20, 2022 Corporation Officer E-Sig:/ES/JAMIE MIGUEL MD Report: EXAM: CHEST 1 [...] pager listed below: User placing orders pager: [phone] same LAST CREATININE 0. COMPARISON: Chest CT [...] Primary Interpreting Staff: JAMIE MIGUEL MD, RADIOLOGIST (Corporation Officer) /JAMIE FRANCES [facility] July 18, 2022 12:59 PM ELBOW LEFT 2 VIEWS: MARYJO WAGNER [id number] -1950 M Exm Date: JULY 18, 2022@12:59 Req Phys: LEIF BALBUENA Pat Loc: OR-PACU/07-18-2022@13:59 Img Loc: MAIN X-RAY Service: ZZSURGICAL SERVICE (Case [id number] COMPLETE) ELBOW LEFT 2 VIEWS (RAD Detailed) CPT:20655 Proc Modifiers : PORTABLE EXAM, OPERATING ROOM EXAM Reason for Study: post-op Clinical History: post-op Report Status: Verified Date Reported: JULY 18, 2022 Date Verified: JULY 18, 2022 Corporation Officer E-Sig:/ES/JAKUB LEE MD Report: EXAM: ELBOW LEFT [...] Primary Interpreting Staff: JAKUB LEE MD, RADIOLOGIST (Corporation Officer) /[facility] JAKUB LEE [facility] July 18, 2022 07:30 AM FLUORO UP TO 1 HR PHYSICIAN TIME: MARYJO WAGNER [id number] -1950 M Exm Date: JULY 18, 2022@07:30 Req Phys: LEIF BALBUENA Pat Loc: OR-PACU/07-18-2022@13:14 Img Loc: MAIN X-RAY Service: PRIMARY CARE - MED OFFICE (Case [id number] COMPLETE) FLUORO UP TO 1 HR PHYSICIAN TIME (RAD Detailed) CPT:92367 Proc Modifiers : PORTABLE EXAM, OPERATING ROOM EXAM, LEFT Reason for Study: Left distal humerous ORIF Clinical History: OR 7 Pathologic distal humeral shaft fracture Responsible provider name and phone number to notify for critical findings if other than user placing the order and pager listed below: User placing orders pager: Henry BALBUENA [phone] LAST CREATININE 0.8 (07/17/22) Report Status: Electronically Filed Date Reported: JULY 18, 2022 Report: Impression: Please see the full report for this procedure in CPRS patient progress notes. Fluoro guidance was provided during this procedure, but the study was not reviewed or verified by a [facility] radiologist. The radiation exposure dose has been recorded in the patient's chart. If you are unable to view this data, please contact the Imaging Department. VERIFIED BY: / *ELECTRONICALLY FILED* [facility] July 17, 2022 03:28 PM ABDOMINAL AORTOGRAM (P): MARYJO WAGNER [id number] -1950 M Exm Date: JULY 17, 2022@15:28 Req Phys: MALCOM LANGLEY Pat Loc: 07-17-2022@15:54 Img Loc: INTERVENTIONAL RADIOLOGY Service: PRIMARY CARE - MED OFFICE (Case [id number] COMPLETE) ANGIOGRAPHY EXTREMITY UNILAT S&I (ANI Detailed) CPT:97105 Reason for Study: codes (Case 528 COMPLETE) IR AORTOGRAPHY ABDOMINAL W/O RUNO(ANI Detailed) CPT:14299 (Case 529 COMPLETE) IR FOREIGN BODY REMOVAL INTRAVASC(ANI Detailed) CPT:72500 (Case 532 COMPLETE) IR NEEDLE/INTRACATH PLACEMENT EXT(ANI Detailed) CPT:33711 (Case 533 COMPLETE) IR PLACEMENT OCCLUSIVE DEVICE SAM(ANI Detailed) CPT:G0269 Clinical History: codes Report Status: Verified Date Reported: JULY 17, 2022 Date Verified: JULY 17, 2022 Corporation Officer E-Sig:/ES/MALCOM LANGLEY MD Report: RADIOLOGIST: Malcom Langley [...] angiogram and runoff. 12. Closure of right NEUROLOGICAL SURGERY TEACHER with Angio-Seal device. HISTORY: Metastatic renal [...] Sheath removed over guidewire and a 5 vietnamese vascular sheath advanced over guidewire into the artery. An H1 catheter was advanced along with the guidewire into the thoracic arch and the left subclavian artery was selected. Catheter and the guidewire were advanced into the left brachial artery. The 5 Tunisian sheath was exchanged for a 6 Tunisian sheath that was advanced into the left [...] arteries. Sheath and catheters were removed and NEUROLOGICAL SURGERY TEACHER arteriotomy was closed using Angioseal. There is patent hemostasis. No bleeding or hematoma noted. Sterile dressing applied. 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 Primary Interpreting Staff: MALCOM LANGLEY MD, INTERVENTIONAL RADIOLOGIST (Corporation Officer) /MALCOM HE [facility] July 17, 2022 07:30 AM RENAL ARTERY EMBOLIZATION (P): MARYJO WAGNER [id number] -1950 M Exm Date: JULY 17, 2022@07:30 Req Phys: WESTON VASQUEZ Pat Loc: 07-17-2022@15:46 Img Loc: INTERVENTIONAL RADIOLOGY Service: PRIMARY CARE - MED OFFICE (Case 130 COMPLETE) IR TRANSCATH EMBOLIZATION W/ANGIO(ANI Detailed) CPT:12859 Reason for Study: embolization of RCC mets to left humerus (Case 131 COMPLETE) IR ARTERIAL EMBOLIZATION OTHER TH(ANI Detailed) CPT:31718 (Case 132 COMPLETE) IR US GUIDANCE VASCULAR ACCESS (ANI Detailed) CPT:05655 Clinical History: [place] IS NOT under investigation for COVID-19 or [...] pager listed below: User placing orders pager: [phone] LAST CREATININE 1.0 (07/13/22) Report Status: Verified Date Reported: JULY 17, 2022 Date Verified: JULY 17, 2022 Corporation Officer E-Sig:/ES/MALCOM LANGLEY MD Report: RADIOLOGIST: Malcom Langley [...] angiogram and runoff. 12. Closure of right NEUROLOGICAL SURGERY TEACHER with Angio-Seal device. HISTORY: Metastatic renal [...] Sheath removed over guidewire and a 5 vietnamese vascular sheath advanced over guidewire into the artery. An H1 catheter was advanced along with the guidewire into the thoracic arch and the left subclavian artery was selected. Catheter and the guidewire were advanced into the left brachial artery. The 5 Tunisian sheath was exchanged for a 6 Tunisian sheath that was advanced into the left [...] arteries. Sheath and catheters were removed and NEUROLOGICAL SURGERY TEACHER arteriotomy was closed using Angioseal. There is patent hemostasis. No bleeding or hematoma noted. Sterile dressing applied. 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 Primary Interpreting Staff: MALCOM LANGLEY MD, INTERVENTIONAL RADIOLOGIST (Corporation Officer) /MALCOM HE [facility] July 14, 2022 06:44 AM HUMERUS LEFT MINIMUM 2 VIEWS: MARYJO WAGNER [id number] -1950 M Exm Date: JULY 14, 2022@06:44 Req Phys: PEDROHERBERTJAIRO [facility] Loc: 07-14-2022@07:13 Img Loc: MAIN X-RAY Service: PRIMARY CARE - MED OFFICE (Case [id number] COMPLETE) HUMERUS LEFT MINIMUM 2 VIEWS (RAD Detailed) CPT:24678 Reason for Study: post reduction Clinical History: Report Status: Verified Date Reported: JULY 14, 2022 Date Verified: JULY 14, 2022 Corporation Officer E-Sig: Report: HUMERUS LEFT MINIMUM 2 VIEWS [...] less likely. READING PHYSICIAN: Xavier Merrill MD -[phone] 07/14/2022 5:11 PDT [facility] National Teleradiology Program [phone] (For Medical Practitioner Use Only) Attention Patients / Veterans: If you have questions or concerns about these test results, please contact your ordering provider or primary care team. Primary Interpreting Staff: RADIOLOGY,OUTSIDE SERVICE, Staff Physician / RADIOLOGY,OUTSIDE SERVICE [facility] July 13, 2022 10:07 AM ELBOW LEFT 3 OR MORE VIEWS: BERNARDMARYJO CAVAZOS [id number] -1950 M Ex Date: JULY 13, 2022@10:07 Req Phys: WHITNEY ANDERSON Pat Loc: [facility] EMERGENCY DEPT WALK-IN (Re Img Loc: MAIN X-RAY Service: Unknown (Case [id number] COMPLETE) ELBOW LEFT 3 OR MORE VIEWS (RAD Detailed) CPT:45870 Proc Modifiers : LEFT Reason for Study: [...] pager listed below: User placing orders pager: [phone] LAST CREATININE 0.8 (05/10/22) Report Status: Verified Date Reported: JULY 13, 2022 Date Verified: JULY 13, 2022 Corporation Officer E-Sig:/ES/ALBINA COWAN MD, FACR, CCD Report: EXAMINATION: [...] Staff: ALBINA COWAN MD, FACR, STAFF RADIOLOGIST (Corporation Officer) /[facility] ALBINA COWAN [facility] July 13, 2022 10:07 AM HUMERUS LEFT MINIMUM 2 VIEWS: MARYJO WAGNER [id number] -1950 M Exm Date: JULY 13, 2022@10:07 Req Phys: WHITNEY ANDERSON Pat Loc: [facility] EMERGENCY DEPT WALK-IN (Re Img Loc: MAIN X-RAY Service: Unknown (Case [id number] COMPLETE) HUMERUS LEFT MINIMUM 2 VIEWS (RAD Detailed) CPT:68168 Proc Modifiers : LEFT Reason for Study: [...] pager listed below: User placing orders pager: [phone] LAST CREATININE 0.8 (05/10/22) Report Status: Verified Date Reported: JULY 13, 2022 Date Verified: JULY 13, 2022 Corporation Officer E-Sig:/ES/ALBINA COWAN MD, FACR, CCD Report: EXAMINATION: [...] Staff: ALBINA COWAN MD, FACR, STAFF RADIOLOGIST (Corporation Officer) /ALBINA NATHAN [facility] July 13, 2022 10:07 AM FOREARM LEFT 2 VIEWS: MARYJO WAGNER [id number] -1950 M Exm Date: JULY 13, 2022@10:07 Req Phys: WHITNEY ANDERSON Pat Loc: [facility] EMERGENCY DEPT WALK-IN (Re Img Loc: MAIN X-RAY Service: Unknown (Case [id number] COMPLETE) FOREARM LEFT 2 VIEWS (RAD Detailed) CPT:13295 Proc Modifiers : LEFT Reason for Study: [...] pager listed below: User placing orders pager: [phone] LAST CREATININE 0.8 (05/10/22) Report Status: Verified Date Reported: JULY 13, 2022 Date Verified: JULY 13, 2022 Corporation Officer E-Sig:/ES/ALBINA COWAN MD, FACR, [facility] Report: EXAMINATION: FOREARM LEFT 2 VIEWS [...] Staff: ALBINA COWAN MD, FACR, STAFF RADIOLOGIST (Corporation Officer) /ALBINA NATHAN [facility] Pathology Reports: [...] $APHDR Reporting Lab: [facility] [CLIA# [id number]] [place] [address] - - - - - - - [...] is entirely submitted in A-D. CE. (D). [facility] FROZEN SECTION DIAGNOSES: SPEC. 1 [...] Report Performed By: [facility] [CLIA# [id number]] [place] [address] $FTR - - - - - - - - - - - - - - - - - - - - - - - - - - - - - - - - - - - - - - - - (End of report) JIAN SANDOVAL MD [facility] Date July 21, 2022 - - - - - - - - - - - - - - - - - - - - - - - - - - - - - - - - - - - - - - - - MARYJO WAGNER STANDARD FORM 515 ID:[id number] SEX:M :1950 AGE: 72 LOC:[facility] PATHOLOGY PRO FEE ADM:June DX:PATHOLOGIC FX LF HUMERUS PCP: Leif Balbuena MD /sangita/ JIAN SANDOVAL STAFF PATHOLOGIST, PATHOLOGY & LABORATORY MED [facility] [place] Signed: 07/21/2022 14:37 JIAN SANDOVAL [facility]
--- OUTSIDE RECORDS SUMMARY | 2023-03-24 09:01 | XMS_ITS | Encounter Summary ---
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 [facility] Organization Department of [facility] Address [address] [place] [address] Support Name Relationship Address Phone DOREEN WAGNER Next of Kin [address] [place] [phone] DOREEN Emergency Contact [address] [place] [phone] Insurance Providers: All historical and current [...] Relationship to Policy [place] [facility] ADVANT[facility] MCR ([facility]) June 26, 2016 [id number] JOAN WAGNER [facility] ADVANTAGE MCR ([facility]) June 26, 2016 [id number] JOAN WAGNER PATIENT [facility]NA [facility] ([facility] MEDICARE ADVANTAGE MCR ([facility]) June 26, 2016 [id number] JOAN WAGNER PATIENT Selected Encounter This section includes the information on record at [place] for the Encounter. Date/Time Encounter Type Encounter Description Reason Provider Source July 17, 2022 07:18 AM OFFICE O/P EST HI 40-54 MIN ANESTHESIA PRE/POST-OP CONSULT ICD-10-CM Z86.010 Personal history of colonic polyps JIAN DUNBAR Encounter Template Text not used by [place] Assessments - Encounter Diagnoses This section includes the primary and secondary diagnoses documented for the Encounter. Date/Time Primary/Secondary Diagnosis Diagnosis Name Provider Source July 17, 2022 07:18 AM PRIMARY Personal history of colonic polyps JIAN DUNBAR [facility] July 17, 2022 07:18 AM SECONDARY Encounter for other preprocedural examination JIAN DUNBAR [facility] July 17, 2022 07:18 AM SECONDARY Essential (primary) hypertension JIAN DUNBAR [facility] July 17, 2022 07:18 AM SECONDARY Malignant neoplasm of left kidney, except renal pelvis JIAN DUNBAR [facility] July 17, 2022 07:18 AM SECONDARY Malignant neoplasm of prostate JIAN DUNBAR [facility] July 17, 2022 07:18 AM SECONDARY Nontoxic multinodular goiter JIAN DUNBAR [facility] July 17, 2022 07:18 AM SECONDARY Other retention of urine JIAN DUNBAR [facility] July 17, 2022 07:18 AM SECONDARY Secondary malignant neoplasm of other digestive organs JIAN DUNBAR [facility] Plan of Treatment: Future Appointments (+ 6 months) and Future Tests (+/- 45 days) The Plan of Treatment section includes future care activities for the patient from all [facility]. This section includes future appointments and future orders which are active, pending or scheduled. Future Appointments This section includes appointments that were scheduled to occur 6 months from the date of the Encounter, up to a maximum of 20 appointments. The data comes from all [facility] facilities. Appointment Date/Time Appointment Type Appointme nt Facility Name Jul 28, 2022 10:45 [facility] Aug 13, 2022 06:13 PM [place] [facility] Aug 23, 2022 09:30 AM AMBUL[place]ORY - [place] [facility] Aug 23, 2022 09:45 AM AM[place]ORY - [place] [facility] Aug 23, 2022 10:30 AM [place]IC[place] [facility] Aug 23, 2022 10:31 AM [place]ORY [place]IC[place] [facility] Sep 06, 2022 10:15 AM AMBULATORY - SURGERY [place] [facility] Oct 25, 2022 07:00 AM AM[place]UL[place]ORY - [place]ONE [place] [facility] Oct 25, 2022 07:30 AM AMBULATORY - SURGERY [place] [facility] Oct 25, 2022 09:00 AM [...] of theEncounter. The data comes from all [place] treatment facilities. Test Date/Time Test Type Test Details Facility Name Jun 12, 2022 12:00 AM Laboratory - Chemistry Order COMPREHENSIVE METABOLIC PANEL+MG PLASMA ONCO SP ONCE [facility] Jun 12, 2022 12:00 AM Laboratory - Chemistry Order CBC & DIFF BLOOD ONCO SP ONCE [facility] Jun 12, 2022 12:00 AM Laboratory - Chemistry Order TSH W/REFLEX TO FREE T4 PLASMA ONCO SP [facility] July 14, 2022 12:00 AM Laboratory - Blood Bank Order ABO/RH - LAB BLOOD [facility] July 14, 2022 02:05 PM Laboratory - Blood Bank Order TYPE & SCREEN - LAB BLOOD [facility] Aug 07, 2022 11:23 AM Laboratory - Chemistry Order DRUG SCREEN PANEL,URINE URINE [facility] Aug 23, 2022 10:47 AM Laboratory - Chemistry Order URINALYSIS URINE ER STAT [facility] Lab Results: +/- 30 days of the encounter This section includes the Chemistry and Hematology Lab Results on record with [place] for the patient. Radiology Reports and Pathology Reports are provided separately, in subsequent sections. Lab Results This section contains the Chemistry/Hematology Results that were resulted 30 days before or 30 daysafter the date of the Encounter. Date/Time Source Result Type Result - Unit Interpretation Reference Range Comment July 19, 2022 04:40 PM [facility] FINGERSTICK GLUCOSE Specimen Type: BLOOD Comment: Save Result Nurse Notified Ordering Provider: MACKENZIE COTTER Report Released Date/Time: July 19, 2022 05:00 PM Reporting Lab: [facility] [address] Performing Lab: [facility] [address] FINGERSTICK GLUCOSE 132 70-100 July 19, 2022 07:13 AM [facility] COMPREHENSIVE METABOLIC PANEL+MG Specimen Type: PLASMA No comment entered. Ordering Provider: MACKENZIE COTTER Report Released Date/Time: July 18, 2022 05:40 PM Reporting Lab: [facility] [address] Performing Lab: [facility] [address] CREATININE 0.9 0.7-1.2 UREA NITROGEN 24 8-26 [...] See_Commen t July 19, 2022 07:13 AM [facility] IRON GROUP Specimen Type: SERUM No comment entered. Ordering Provider: MACKENZIE COTTER Report Released Date/Time: July 18, 2022 05:40 PM Reporting Lab: [facility] [address] Performing Lab: [facility] [address] IRON 28 L 65-175 TIBC,CALCULATE D 223 L 250-425 FERRITIN 73.7 21.8-274.7 IRON SATURATION 13 L 20-50 TRANSFERRIN 178 163-382 July 19, 2022 07:13 AM [facility] CBC Specimen Type: BLOOD No comment entered. Ordering Provider: MACKENZIE COTTER Report Released Date/Time: July 18, 2022 05:40 PM Reporting Lab: [facility] [address] Performing Lab: [facility] [address] WBC 7.73 4.0-11.0 RBC 2.42 L 4.6-6.2 HGB 8.2 L 13.5-17.9 HCT 23.8 L 41-54 MCV 98.3 80-100 MCH 33.9 H 27-33 MCHC 34.5 32.0-37.5 PLT 155 150-400 MPV 9.6 7.4-10.4 RDW 13.5 11.5-14.5 July 19, 2022 05:44 AM [facility] FINGERSTICK GLUCOSE Specimen Type: BLOOD Comment: Save Result Nurse Notified Ordering Provider: MACKENZIE COTTER Report Released Date/Time: July 19, 2022 11:54 AM Reporting Lab: [facility] [address] Performing Lab: [facility] [address] FINGERSTICK GLUCOSE 137 70-100 July 18, 2022 10:51 PM [facility] FINGERSTICK GLUCOSE Specimen Type: BLOOD Comment: Save Result Nurse Notified Ordering Provider: MACKENZIE COTTER Report Released Date/Time: July 18, 2022 11:06 PM Reporting Lab: [facility] [address] Performing Lab: [facility] [address] FINGERSTICK GLUCOSE 163 70-100 July 17, 2022 06:51 AM [facility] BASIC METABOLIC PANEL+MG Specimen Type: PLASMA No comment entered. Ordering Provider: DANG PAULA R Report Released Date/Time: July 16, 2022 09:37 AM Reporting Lab: [facility] [address] Performing Lab: [facility] [address] CREATININE 0.8 0.7-1.2 UREA NITROGEN 23 8-26 GLUCOSE 107 H 70-100 SODIUM 139 136-145 POTASSIUM 3.9 3.5-5.1 CHLORIDE 106 98-107 CO2 28 22-29 CALCIUM 9.1 8.4-10.2 MAGNESIUM 1.9 1.6-2.6 ANION GAP 5 5-15 .CREAT EGFR(CKD-EPI) >90 See_Commen t July 17, 2022 06:51 AM [facility] PROTHROMBIN TIME/INR Specimen Type: PLASMA No comment entered. Ordering Provider: DANG PAULA R Report Released Date/Time: July 16, 2022 09:37 AM Reporting Lab: [facility] [address] Performing Lab: [facility] [address] .INR 1.0 0.8-1.1 .PT 11.5 9.4-12.5 July 17, 2022 06:51 AM [facility] CBC Specimen Type: BLOOD No comment entered. Ordering Provider: DANG PAULA R Report Released Date/Time: July 16, 2022 09:37 AM Reporting Lab: [facility] [address] Performing Lab: [facility] [address] WBC 6.05 4.0-11.0 RBC 3.77 L 4.6-6.2 HGB 12.7 L 13.5-17.9 HCT 36.0 L 41-54 MCV 95.5 80-100 MCH 33.7 H 27-33 MCHC 35.3 32.0-37.5 PLT 179 150-400 MPV 9.4 7.4-10.4 RDW 13.2 11.5-14.5 July 13, 2022 11:22 AM [facility] COVID-19 AND FLU/RSV DIAG PANEL([facility]) Specimen Typ e: NASOPHARYNGEAL Comment: Blackstrap GeneXpert (618) Ordering Provider: WHITNEY ANDERSON Report Released Date/Time: July 13, 2022 11:04 AM Reporting Lab: [facility] [address] Performing Lab: [facility] [address] COVID-19 (CEPHEID) Not Detected Not Detected INFLUENZA A (PCR) Not Detected Not Detected INFLUENZA B (PCR) Not Detected Not Detected RSV (PCR) Not Detected Not Detected July 13, 2022 11:00 AM [facility] C-REACTIVE PROTEIN Specimen Type: SERUM Comment: Automated Differential Performed Ordering Provider: WHITNEY ANDERSON Report Released Date/Time: July 13, 2022 11:04 AM Reporting Lab: [facility] [address] Performing Lab: [facility] [address] C-REACTIVE PROTEIN 1.17 <5.00 July 13, 2022 11:00 AM [facility] PROTHROMBIN TIME/INR Specimen Type: PLASMA No comment entered. Ordering Provider: WHITNEY ANDERSON Report Released Date/Time: July 13, 2022 11:04 AM Reporting Lab: [facility] [address] Performing Lab: [facility] [address] .INR 0.9 0.8-1.1 .PT 11.1 9.4-12.5 July 13, 2022 11:00 AM [facility] SED RATE Specimen Type: BLOOD No comment entered. Ordering Provider: WHITNEY ANDERSON Report Released Date/Time: July 13, 2022 11:04 AM Reporting Lab: [facility] [address] Performing Lab: [facility] [address] SED RATE 10 5-15 July 13, 2022 11:00 AM [facility] CBC & DIFF Specimen Type: BLOOD Comment: Automated Differential Performed Ordering Provider: WHITNEY ANDERSON Report Released Date/Time: July 13, 2022 11:04 AM Reporting Lab: [facility] [address] Performing Lab: [facility] [address] WBC 8.82 4.0-11.0 RBC 3.89 L 4.6-6.2 [...] 0.03 0-0.1 July 13, 2022 11:00 AM [facility] COMPREHENSIVE METABOLIC PANEL+MG Specimen Type: PLASMA Comment: Automated Differential Performed Ordering Provider: WHITNEY ANDERSON Report Released Date/Time: July 13, 2022 11:04 AM Reporting Lab: [facility] [address] Performing Lab: [facility] [address] CREATININE 1.0 0.7-1.2 UREA NITROGEN 16 8-26 [...] Source July 17, 2022 11:20 PM [facility] July 17, 2022 11:18 PM [facility] July 17, 2022 11:11 PM 97.9 F 72 /min 122/77 mm[Hg] 18 /min 95 % 0 [facility] July 17, 2022 10:38 PM [facility] July 17, 2022 08:55 PM 7 [facility] Social History: Smoking Status (Most current) and Tobacco Use (All prior to encounter date) This section includes the most current, and the historical, smoking and tobacco- related health factors from the [place] facility where the Encounter took place. Current Smoking Status This section includes the most current smoking, or tobacco-related health factor, from the [place] facility where the Encounter took place. Date/Time Current Smoking Status Comment Facil ity May 10, 2022 09:15 AM VA-TOBACCO FORMER USER [facility] Tobacco Use History This section includes a history of the smoking, or tobacco-related health factors, that were collected on or before the date of the Encounter. The data comes from the [place] facility where the Encounter took place. Date/Time [...] 07:55 AM FORMER TOBACCO USER 7Y OR KRUNAL Alvarez [facility] Sep 08, 2013 07:48 AM FORMER TOBACCO USER 7Y OR KRUNAL Alvarez [facility] July 09, 2012 09:20 [...] ALL of a patient's completed or amended [place] Advance and Rescinded Directives. The entries below indicate that a directive exists for the patient, but an actual copy is not included with this document. The data comes from all [place] facilities. Date Advance Directives Provider Source Mar 18, 2003 ADVANCE DIRECTIVE FARHAT MELGAR [facility] Radiology Reports: +/- 30 days [...] the Encounter. The data comes from all [place] treatment facilities. Date/Time Radiology Report Provider Source July 20, 2022 07:50 AM CHEST 1 VIEW: MARYJO WAGNER [id number] -1950 M Exm Date: JULY 20, 2022@07:50 Req Phys: MACKENZIE COTTER Pat Loc: 07-20-2022@08:26 Img Loc: MAIN X-RAY Service: PRIMARY CARE - MED OFFICE (Case [id number] COMPLETE) CHEST 1 VIEW (RAD Detailed) CPT:42445 Proc Modifiers : PORTABLE EXAM Reason for Study: see below. thanks. Clinical History: [place] IS NOT under investigation for COVID-19 or is COVID-19 negative Please further evaluate for acute airspace disease given o2 requirement. Thanks. Responsible provider name and phone number to notify for critical findings if other than user placing the order and pager listed below: User placing orders pager: [phone] same LAST CREATININE 0.9 (07/19/22) Report Status: Verified Date Reported: JULY 20, 2022 Date Verified: JULY 20, 2022 [employer] E-Sig:/ES/JAMIE MIGUEL MD Report: EXAM: CHEST 1 VIEW HISTORY: see below. thanks. Reason for Study: see below. thanks. [place] IS NOT under investigation for COVID-19 or is COVID-19 negative Please further evaluate for acute airspace disease given o2 requirement. Thanks. Responsible provider name and phone number to notify for critical findings if other than user placing the order and pager listed below: User placing orders pager: [phone] same LAST CREATININE 0. COMPARISON: Chest CT [...] Primary Interpreting Staff: JAMIE MIGUEL MD, RADIOLOGIST (Body Mechanic Apprentice) /JAMIE FRANCES [facility] July 18, 2022 12:59 PM ELBOW LEFT 2 VIEWS: MARYJO WAGNER [id number] -1950 M Exm Date: JULY 18, 2022@12:59 Req Phys: LEIF BALBUENA Loc: OR-PACU/07-18-2022@13:59 Img Loc: MAIN X-RAY Service: ZZSURGICAL SERVICE (Case [id number] COMPLETE) ELBOW LEFT 2 VIEWS (RAD Detailed) CPT:33019 Proc Modifiers : PORTABLE EXAM, OPERATING ROOM EXAM Reason for Study: post-op Clinical History: post-op Report Status: Verified Date Reported: JULY 18, 2022 Date Verified: JULY 18, 2022 [employer] E-Sig:/ES/JAKUB LEE MD Report: EXAM: ELBOW LEFT [...] Primary Interpreting Staff: JAKUB LEE MD, RADIOLOGIST (Body Mechanic Apprentice) /[facility] JAKUB LEE [facility] July 18, 2022 07:30 AM FLUORO UP TO 1 HR PHYSICIAN TIME: MARYJO WAGNER [id number] -1950 M Exm Date: JULY 18, 2022@07:30 Req Phys: LEIF BALBUENA Loc: OR-PACU/07-18-2022@13:14 Img Loc: MAIN X-RAY Service: PRIMARY CARE - MED OFFICE (Case [id number] COMPLETE) FLUORO UP TO 1 HR PHYSICIAN TIME (RAD Detailed) CPT:14348 Proc Modifiers : PORTABLE EXAM, OPERATING ROOM EXAM, LEFT Reason for Study: Left distal humerous ORIF Clinical History: OR 7 Pathologic distal humeral shaft fracture Responsible provider name and phone number to notify for critical findings if other than user placing the order and pager listed below: User placing orders pager: Henry BALBUENA [phone] LAST CREATININE 0.8 (07/17/22) Report Status: Electronically Filed Date Reported: JULY 18, 2022 Report: Impression: Please see the full report for this procedure in [facility] patient progress notes. Fluoro guidance was provided during this procedure, but the study was not reviewed or verified by a [facility] radiologist. The radiation exposure dose has been recorded in the patient's chart. If you are unable to view this data, please contact the Imaging Department. VERIFIED BY: / *ELECTRONICALLY FILED* [facility] July 17, 2022 03:28 PM ABDOMINAL AORTOGRAM (P): MARYJO WAGNER [id number] -1950 M Exm Date: JULY 17, 2022@15:28 Req Phys: MALCOM LANGLEY [facility] Loc: 07-17-2022@15:54 Img Loc: INTERVENTIONAL RADIOLOGY Service: PRIMARY CARE - MED OFFICE (Case [id number] COMPLETE) ANGIOGRAPHY EXTREMITY UNILAT S&I (ANI Detailed) CPT:98112 Reason for Study: codes (Case 528 COMPLETE) IR AORTOGRAPHY ABDOMINAL W/O RUNO(ANI Detailed) CPT:76404 (Case 529 COMPLETE) IR FOREIGN BODY REMOVAL INTRAVASC(ANI Detailed) CPT:95642 (Case 532 COMPLETE) IR NEEDLE/INTRACATH PLACEMENT EXT(ANI Detailed) CPT:14266 (Case 533 COMPLETE) IR PLACEMENT OCCLUSIVE DEVICE SAM(ANI Detailed) CPT:G0269 Clinical History: codes Report Status: Verified Date Reported: JULY 17, 2022 Date Verified: JULY 17, 2022 [employer] E-Sig:/ES/MALCOM LANGLEY MD Report: RADIOLOGIST: Malcom Langley [...] and runoff. 12. Closure of right DIRECTOR ONCOLOGY with Angio-Seal device. HISTORY: Metastatic renal cell [...] Sheath and catheters were removed and DIRECTOR ONCOLOGY arteriotomy was closed using Angioseal. There is patent hemostasis. No bleeding or hematoma noted. Sterile dressing applied. 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 Primary Interpreting Staff: MALCOM LANGLEY MD, INTERVENTIONAL RADIOLOGIST (Body Mechanic Apprentice) /MLACOM HE [facility] July 17, 2022 07:30 AM RENAL ARTERY EMBOLIZATION (P): CARSONMARYJO ROWELL [id number] -1950 M Exm Date: JULY 17, 2022@07:30 Req Phys: WESTON VASQUEZ [facility] Loc: 07-17-2022@15:46 Img Loc: INTERVENTIONAL RADIOLOGY Service: PRIMARY CARE - MED OFFICE (Case 130 COMPLETE) IR TRANSCATH EMBOLIZATION W/ANGIO(ANI Detailed) CPT:49515 Reason for Study: embolization of RCC mets to left humerus (Case 131 COMPLETE) IR ARTERIAL EMBOLIZATION OTHER TH(ANI Detailed) CPT:71874 (Case 132 COMPLETE) IR US GUIDANCE VASCULAR ACCESS (ANI Detailed) CPT:73595 Clinical History: [place] IS NOT under investigation for COVID-19 or [...] pager listed below: User placing orders pager: [phone] LAST CREATININE 1.0 (07/13/22) Report Status: Verified Date Reported: JULY 17, 2022 Date Verified: JULY 17, 2022 Body Mechanic Apprentice E-Sig:/ES/MALCOM LANGLEY MD Report: RADIOLOGIST: Malcom Langley [...] and runoff. 12. Closure of right DIRECTOR ONCOLOGY with Angio-Seal device. HISTORY: Metastatic renal cell [...] Sheath and catheters were removed and DIRECTOR ONCOLOGY arteriotomy was closed using Angioseal. There is patent hemostasis. No bleeding or hematoma noted. Sterile dressing applied. 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 Primary Interpreting Staff: MALCOM LANGLEY MD, INTERVENTIONAL RADIOLOGIST (Body Mechanic Apprentice) /MALCOM HE [facility] July 14, 2022 06:44 AM HUMERUS LEFT MINIMUM 2 VIEWS: MARYJO WAGNER [id number] -1950 M Exm Date: JULY 14, 2022@06:44 Req Phys: WESTON VASQUEZ [facility] Loc: 07-14-2022@07:13 Img Loc: MAIN X-RAY Service: PRIMARY CARE - MED OFFICE (Case [id number] COMPLETE) HUMERUS LEFT MINIMUM 2 VIEWS (RAD Detailed) CPT:23208 Reason for Study: post reduction Clinical History: Report Status: Verified Date Reported: JULY 14, 2022 Date Verified: JULY 14, 2022 Body Mechanic Apprentice E-Sig: Report: HUMERUS LEFT MINIMUM 2 VIEWS HISTORY: post reduction COMPARISON: 07/13/2022 TECHNIQUE: 2 view(s) of the humerus, submitted to the [place] National Teleradiology Program (NTP) for interpretation. FINDINGS: [...] less likely. READING PHYSICIAN: Xavier Merrill MD -[id number] 07/14/2022 5:11 PDT [facility] National Teleradiology Program [phone] (For Medical Practitioner Use Only) Attention Patients / Veterans: If you have questions or concerns about these test results, please contact your ordering provider or primary care team. Primary Interpreting Staff: RADIOLOGY,OUTSIDE SERVICE, Staff Physician / RADIOLOGY,OUTSIDE SERVICE [facility] July 13, 2022 10:07 AM ELBOW LEFT 3 OR MORE VIEWS: MARYJO WAGNER [id number] -1950 M Exm Date: JULY 13, 2022@10:07 Req Phys: WHITNEY ANDERSON Pat Loc: [facility] EMERGENCY DEPT WALK-IN (Re Img Loc: MAIN X-RAY Service: Unknown (Case [id number] COMPLETE) ELBOW LEFT 3 OR MORE VIEWS (RAD Detailed) CPT:49822 Proc Modifiers : LEFT Reason for Study: [...] pager listed below: User placing orders pager: [phone] LAST CREATININE 0.8 (05/10/22) Report Status: Verified Date Reported: JULY 13, 2022 Date Verified: JULY 13, 2022 Body Mechanic Apprentice E-Sig:/ES/ALBINA COWAN MD, FACR, CCD Report: EXAMINATION: [...] Staff: ALBINA COWAN MD, FACR, STAFF RADIOLOGIST (Body Mechanic Apprentice) /BSF ALBINA COWAN [facility] July 13, 2022 10:07 AM HUMERUS LEFT MINIMUM 2 VIEWS: MARYJO WAGNER [id number] -1950 M Exm Date: JULY 13, 2022@10:07 Req Phys: WHITNEY ANDERSON Pat Loc: [facility] EMERGENCY DEPT WALK-IN (Re Img Loc: MAIN X-RAY Service: Unknown (Case [id number] COMPLETE) HUMERUS LEFT MINIMUM 2 VIEWS (RAD Detailed) CPT:15303 Proc Modifiers : LEFT Reason for Study: [...] pager listed below: User placing orders pager: [phone] LAST CREATININE 0.8 (05/10/22) Report Status: Verified Date Reported: JULY 13, 2022 Date Verified: JULY 13, 2022 Body Mechanic Apprentice E-Sig:/ES/ALBINA COWAN MD, FACR, CCD Report: EXAMINATION: [...] Staff: ALBINA COWAN MD, FACR, STAFF RADIOLOGIST (Body Mechanic Apprentice) /BSF ALBINA COWAN [facility] July 13, 2022 10:07 AM FOREARM LEFT 2 VIEWS: BERNARDMARYJO CAVAZOS [id number] -1950 M Ex Date: JULY 13, 2022@10:07 Req Phys: WHITNEY ANDERSON Loc: [facility] EMERGENCY DEPT WALK-IN (Re Img Loc: MAIN X-RAY Service: Unknown (Case [id number] COMPLETE) FOREARM LEFT 2 VIEWS (RAD Detailed) CPT:41647 Proc Modifiers : LEFT Reason for Study: [...] pager listed below: User placing orders pager: [phone] LAST CREATININE 0.8 (05/10/22) Report Status: Verified Date Reported: JULY 13, 2022 Date Verified: JULY 13, 2022 Body Mechanic Apprentice E-Sig:/ES/ALBINA COWAN MD, FACR, CCD Report: EXAMINATION: [...] Staff: ALBINA COWAN MD, FACR, STAFF RADIOLOGIST (Body Mechanic Apprentice) /BSF ALBINA COWAN [facility] Pathology Reports: +/- 30 days [...] the Encounter. The data comes from all [place] treatment facilities. Date/Time Pathology Report Provider Source July 13, 2022 04:06 PM LR SURGICAL PATHOL OGY REPORT: LOCAL TITLE: LR SURGICAL PATHOLOGY REPORT STANDARD TITLE: PATHOLOGY REPORT DATE OF NOTE: JULY 21, 2022@14:37:27 ENTRY DATE: JULY 21, 2022@14:37:27 AUTHOR: JIAN SANDOVAL EXP COSIGNER: URGENCY: STATUS: COMPLETED $APHDR Reporting Lab: [facility] [CLIA# [id number]] [place] [address] - - - - - - - [...] Performing Laboratory: Surgical Pathology Report Performed By: [facility] [CLIA# [id number]] [place] [address] $FTR - - - - - - - - - - - - - - - - - - - - - - - - - - - - - - - - - - - - - - - - (End of report) JIAN jack Date July 21, 2022 - - - - - - - - - - - - - - - - - - - - - - - - - - - - - - - - - - - - - - - - BERNARDMARYJO ELTON STANDARD FORM 515 ID:[id number] SEX:M :1950 AGE: 72 LOC:MSP PATHOLOGY PRO FEE ADM:June DX:PATHOLOGIC FX LF HUMERUS PCP: Leif Balbuena MD /sangita/ JIAN SANDOVAL STAFF PATHOLOGIST, PATHOLOGY & LABORATORY MED [facility] Signed: 07/21/2022 14:37 JIAN SANDOVAL [facility] Encounter Notes: All associated encounter notes This section contains the clinical notes associated to the Encounter. Date/Time Encounter Note(s) Provider Source July 17, 2022 07:18 AM ANESTHESIOLOGY CON SULT: LOCAL TITLE: ANESTHESIA PREOPERATIVE ASSESSMENT CONSULT STANDARD TITLE: ANESTHESIOLOGY CONSULT DATE OF NOTE: JULY 17, 2022@07:18 ENTRY DATE: JULY 17, 2022@07:18:29 AUTHOR: JIAN DUNBAR EXP COSIGNER: URGENCY: STATUS: COMPLETED ANESTHESIA PRE-EVALUATION MARYJO WAGNER identified by name and . 72 year old MALE. Surgery Scheduled Date/Time: July 18, 2022 Procedure: Left distal humerus ORIF, excision of tumor, Olecranon osteotomy Pre-Op Diagnosis: pathologic distal humeral shaft fracture MEDICAL HISTORY: 1. OBESITY, UNSP 2. LIVER CHEM, ABNORMAL 3. Adjustment Disorder with Mixed Anxiety and Depressed Mood 4. Sleep Apnea 5. Elevated Prostate Specific Antigen (PSA) 6. Dysmetabolic Syndrome X 7. Polyp of colon (SNOMED CT 72982551) - 2011, repeat in 7-10 years, see report 8. Malignant tumor of prostate (SNOMED CT 203579208) 9. Benign hypertension 10. Retention of urine 11. Malignant tumor of kidney parenchyma 12. Multinodular goiter 13. Secondary malignant neoplasm of pancreas SURGICAL HISTORY (WITH ANESTHESIA DETAILS AVAILABLE): JULY 18, 2022 Proc: Left distal humerus ORIF, excision of tumor, Olecranon osteotomy JULY 17, 2022 Proc: LUE Tumor Embolization ALLERGIES: HAZELNUTS (Nov 21, 2002) MEDICATIONS: Active Outpatient Medications Status 1) LISINOPRIL 20MG TAB TAKE ONE TABLET BY MOUTH EVERY ACTIVE DAY FOR BLOOD PRESSURE 2) LUBRICATING TOP JELLY BACTERIOSTATIC APPLY JELLY ACTIVE TOPICALLY DIRECTED Inactive Outpatient Medications Status 1) SODIUM FLUORIDE [...] CAP/TAB 1 TABLET MOUTH EVERY DAY ACTIVE Active Inpatient Medications Status 1) HYDROMORPHONE INJ,SOLN 0.5MG/0.5ML IV Q2H PRN ACTIVE 2) METHOCARBAMOL TAB 500MG-1000MG PO Q6H PRN For pain ACTIVE related to muscle spasm and/or tightness. For pain 2-5 give 500mg; for pain 6-10 give 1000mg. Give lowest effective dose. 3) NALOXONE INJ,SOLN 0.4MG/1ML IV PRN For opioid ACTIVE overdose or RR<8; may repeat every 2 to 3 minutes up to 3 total doses. 4) POLYETHYLENE GLYCOL 3350 POWDER,ORAL 17 GM PKT PO ACTIVE QDAY PRN please offer if no BM in 2 days Chronic Opioid Use: No Naltrexone Use: No Buprenorphine Use: No SOCIAL HISTORY: Tobacco Use: No Alcohol Use: No Substance Use: No REVIEW OF SYSTEMS: METS: 4 to 6 Cardiac: denies Respiratory: denies Neurologic: denies GERD: not active PTSD: No Prior History of Anesthesia Complications: No PHYSICAL EXAM: Weight: 240.0 lb [108.86 kg] (07/13/2022 16:25) Height: 72 in [182.9 cm] (05/17/2022 07:44) BMI: 32.6 Blood Pressure: 108/67 (07/17/2022 07:03) Pulse: 53 (07/17/2022 07:03) Pulse Oximetry: 96% (07/17/2022 07:03) Respiration: 18 (07/17/2022 07:03) Temperature: 97.7 F [36.5 C] (07/17/2022 07:03) Mallampati: II Mouth Opening: > 3cm Thyromental: > 4cm Neck: full range of motion Dentition: normal Cardiac: regular Murmur No Pulmonary: Bilaterally clear Neurologic: Alert LABS SODIUM 139 (07/13/22) POTASSIUM 4.3 (07/13/22) CHLORIDE 106 (07/13/22) CO2 26 (07/13/22) GLUCOSE 129 H (07/13/22) UREA NITROGEN 16 (07/13/22) CREATININE 1.0 (07/13/22) EGFR (09/29) 03/17/20 @ 0904 111 CREATININE EGFR (CKD-EPI) 07/13/22 @ 1100 79 SGOT 18 (07/13/22) SGPT 17 (07/13/22) TODAY'S LAB RESULTS WBC: 6.05 RBC: 3.77 L HGB: 12.7 L HCT: 36.0 L MCV: 95.5 MCH: 33.7 H MCHC: 35.3 RDW: 13.2 PLT: 179 MPV: 9.4 INR 1999: 1.0 PROTHROMBIN TIME (10/30): 11.5 Chest Xray Impression for CHEST 2 VIEWS PA AND LAT, 04/26/17, case [id number] Heart size and pulmonary vascularity are within normal limits. Ectatic and tortuous thoracic aorta. Carinal and hilar calcified lymph nodes. Calcified nodule left lower lung. No circumscribed infiltrative process or significant pleural effusion evident. CT Chest Report for CT CHEST W/ CONTRAST, 06/13/17, case [id number] CT chest with IV contrast 06/13/2017 History: Renal mass, evaluate for metastases. Additional history from the electronic medical record: Biopsy-proven left renal cell carcinoma. Comparison: CT abdomen and pelvis 05/13/2017 Technique: CT of the chest following the administration of 80 mL Ultravist 300 intravenous contrast. Axial and coronal reconstructions were obtained and reviewed. Dose: Total DLP 47.4 mGy*cm Findings: Partially visualized heterogeneous left thyroid mass/nodule measuring 3.0 cm (series 4 image 13). No axillary adenopathy. Borderline enlarged right hilar node measuring 1.2 cm (series 4 image 122), borderline enlarged left hilar node measuring 1.1 cm (series 4 image 128). 1 cm subcarinal node (series 4 image 131). No central pulmonary embolism is seen. Normal branching pattern of the thoracic aortic arch. Dense calcification of multiple mediastinal and hilar nodes. Coronary artery and thoracic aortic calcifications are present. The heart is not enlarged. No pleural or pericardial effusion is seen. There is an accessory fissure in the left upper lobe. Calcified granuloma in the left upper lobe (series 6 image 163). Dependent groundglass opacities most likely representing atelectasis. 1 mm nodule right upper lobe (series 6 image 109). The central airways are clear. Mild pulmonary emphysema including paraseptal emphysematous changes of the right lower lobe (series 6 image 156). Limited evaluation of the upper abdomen secondary to [id number] in contrast bolus timing. Calcified granulomas in the liver and spleen. Left renal mass not included in the [id number] of this examination. Partially visualized enhancing lesion in the body the pancreas (series 4 image 291) Bones: Degenerative changes of the shoulders. Kyphotic curvature of the thoracic spine. ASA STATUS: 3 Patient's preoperative assessment reviewed. There are no significant changes, new conditions, or additions from the patient's anesthesia preoperative assessment. NPO STATUS: Meets ASA guidelines (>2 hrs clear liquids, >6 hrs light meal, >8 hrs heavy meal) ANESTHESIA PLAN: GA with ETT. ISNC for postop pain in pacu. ENHANCED RECOVERY AFTER SURGERY PATHWAY: No BLOOD PRODUCT CONSENT: Yes INSULIN PROTOCOL: N/A The anesthetic plan including the risks, benefits, side effects and alternative options of the plan were discussed with the patient/responsible junior sales representative. The patient/junior sales representative has been encouraged to ask questions and any concerns have been addressed. The patient/junior sales representative endorses understanding of the information disclosed. The patient/junior sales representative voluntarily elects to move forward with the anesthetic plan. Phase I PACU DNR discussed with patient and proceduralist and OR team. Patient to REMAIN DNR FOR ALL PROCEDURES 07/13/2022 18:02 LIFE-SUSTAINING TREATMENT (LST) DECISION-MAKING CAPACITY TO MAKE [...] to continue this code status during procedure INFORMED CONSENT Patient gave oral informed consent for life-sustaining treatment plan. PRESENT FOR GOALS OF CARE CONVERSATION Name(s) and contact information: Patient, Dr. Paula NAME OF SUPERVISING PRACTITIONER No Attending/supervising practitioner required. Signed by: /sangita/ ROLLY PAULA MD PHYSICIAN 07/13/2022 18:08 Digital Pager: [phone] Cohort: Reminder Term: [facility]-LIFE SUSTAINING TREATMENT ORDERABLE ITEMS Orderable Item: LST DNR - DO NOT RESUSCITATE 07/13/2022@18:08 Status: active, Start date: 07/13/2022@18:08, Stop date: missing Duration: 4 D /sangita/ JIAN DUNBAR MDA ANESTHESIOLOGIST Signed: 07/17/2022 09:06 JIAN DUNBAR [facility]
--- OUTSIDE RECORDS SUMMARY | 2023-03-24 09:01 | XMS_ITS ---
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 of Vetera [facility] Address [address] [place] [address] Support Name Relationship Address Phone DOREEN WAGNER Next of Kin [address] [place] [phone] DOREEN Emergency Contact [address] [place] [phone] Insurance Providers: All historical and current [...] ADVANTAGE [facility] (R) June 26, 2016 [id number] JOAN WAGNER KARSTNE PATIENT [employer] (WNR) MEDICARE ADVANTAGE [facility] (WNR) June 26, 2016 [id number] JOAN WAGNER KARSTEN PATIENT [employer] (WNR) MEDICARE ADVANTAGE [facility] (R) June 26, 2016 [id number] [phone] JOAN WAGNER PATIENT Selected Encounter This section includes the information on record at [place] for the Encounter. Date/Time Encounter Type Encounter Description Reason Pro vider Source July 16, 2022 09:26 PM Inpatient Visit DAILY HOSPITALIZATION DATA [facility] Encounter Template Text not used by CO Plan of Treatment: Future Appointments (+ 6 months) and Future Tests (+/- 45 days) The Plan of Treatment section includes future care activities for the patient from all [place] treatmentfacilities. This section includes future appointments and future orders which are active, pending or scheduled. Future Appointments This section includes appointments that were scheduled to occur 6 months from the date of the Encounter, up to a maximum of 20 appointments. The data comes from all [facility]. Appointment Date/Time Appointment Type Appointme nt Facility Name Jul 28, 2022 10:45 AM AMBULATORY [facility] Aug 13, 2022 06:13 PM AMBULATORY - MEDICINE [facility] Aug 23, 2022 09:30 AM AMBULATORY - SURGERY [facility] Aug 23, 2022 09:45 AM AMBULATORY - NONE [facility] Aug 23, 2022 10:30 AM AMBULATORY - MEDICINE [facility] Aug 23, 2022 10:31 AM AMBULATORY - MEDICINE [facility] Sep 06, 2022 10:15 AM AMBULATORY - SURGERY [facility] Oct 25, 2022 07:00 AM [facility] Oct 25, 2022 07:30 AM AMBULATORY - SURGERY [facility] Oct 25, 2022 09:00 AM AMBULATORY - SURGERY [facility] Active, Pending, and Scheduled Orders This section includes a listing of several types of active, pending, and scheduled orders, including clinic medications orders, diagnostic test orders, procedure orders and consult orders; where the start date of the order is 45 days before the date of the Encounter or 45 days after the date of theEncounter. The data comes from all [facility]. Test Date/Time Test Type Test [...] Order COMPREHENSIVE METABOLIC PANEL+MG PLASMA ONCO SP [facility] July 14, 2022 12:00 AM Laboratory - Blood Bank Order ABO/RH - LAB BLOOD [facility] July 14, 2022 02:05 PM Laboratory - Blood Bank Order TYPE & SCREEN - LAB BLOOD [facility] Aug 07, 2022 11:23 AM Laboratory - Chemistry Order DRUG SCREEN PANEL,URINE URINE [facility] Aug 23, 2022 10:47 AM Laboratory - Chemistry Order URINALYSIS URINE ER STAT [facility] Lab Results: +/- 30 days of the encounter This section includes the Chemistry and Hematology Lab Results on record with CO for the patient. Radiology Reports and Pathology Reports are provided separately, in subsequent sections. Lab Results This section contains the Chemistry/Hematology Results that were resulted 30 days before or 30 daysafter the date of the Encounter. Date/Time Source Result Type Result - Unit Interpretation Reference Range Comment July 19, 2022 04:40 PM [facility] FINGERSTICK GLUCOSE Specimen Type: BLOOD Comment: Save Result Nurse Notified Ordering Provider: MACKENZIE COTTER Report Released Date/Time: July 19, 2022 05:00 PM Reporting Lab: [facility] [phone] Performing Lab: [facility] [address] FINGERSTICK GLUCOSE 132 70-100 July 19, 2022 07:13 AM [facility] COMPREHENSIVE METABOLIC PANEL+MG Specimen Type: PLASMA No comment entered. Ordering Provider: MACKENZIE COTTER Report Released Date/Time: July 18, 2022 05:40 PM Reporting Lab: [facility] [address] Performing Lab: [facility] [address] CREATININE 0.9 0.7-1.2 UREA NITROGEN 24 8-26 [...] See_Commen t July 19, 2022 07:13 AM [facility] IRON GROUP Specimen Type: SERUM No comment entered. Ordering Provider: MACKENZIE COTTER Report Released Date/Time: July 18, 2022 05:40 PM Reporting Lab: [facility] [address] Performing Lab: [facility] [address] IRON 28 L 65-175 TIBC,CALCULATE D 223 L 250-425 FERRITIN 73.7 21.8-274.7 IRON SATURATION 13 L 20-50 TRANSFERRIN 178 163-382 July 19, 2022 07:13 AM [facility] CBC Specimen Type: BLOOD No comment entered. Ordering Provider: MACKENZIE COTTER Report Released Date/Time: July 18, 2022 05:40 PM Reporting Lab: [facility] [address] Performing Lab: [facility] [address] WBC 7.73 4.0-11.0 RBC 2.42 L 4.6-6.2 HGB 8.2 L 13.5-17.9 HCT 23.8 L 41-54 MCV 98.3 80-100 MCH 33.9 H 27-33 MCHC 34.5 32.0-37.5 PLT 155 150-400 MPV 9.6 7.4-10.4 RDW 13.5 11.5-14.5 July 19, 2022 05:44 AM [facility] FINGERSTICK GLUCOSE Specimen Type: BLOOD Comment: Save Result Nurse Notified Ordering Provider: MACKENZIE COTTER Report Released Date/Time: July 19, 2022 11:54 AM Reporting Lab: [facility] [address] Performing Lab: [facility] [address] FINGERSTICK GLUCOSE 137 70-100 July 18, 2022 10:51 PM [facility] FINGERSTICK GLUCOSE Specimen Type: BLOOD Comment: Save Result Nurse Notified Ordering Provider: MACKENZIE COTTER Report Released Date/Time: July 18, 2022 11:06 PM Reporting Lab: [facility] [address] Performing Lab: [facility] [address] FINGERSTICK GLUCOSE 163 70-100 July 17, 2022 06:51 AM [facility] BASIC METABOLIC PANEL+MG Specimen Type: PLASMA No comment entered. Ordering Provider: DANG VALLE Report Released Date/Time: July 16, 2022 09:37 AM Reporting Lab: [facility] [address] Performing Lab: [facility] [address] CREATININE 0.8 0.7-1.2 UREA NITROGEN 23 8-26 GLUCOSE 107 H 70-100 SODIUM 139 136-145 POTASSIUM 3.9 3.5-5.1 CHLORIDE 106 98-107 CO2 28 22-29 CALCIUM 9.1 8.4-10.2 MAGNESIUM 1.9 1.6-2.6 ANION GAP 5 5-15 .CREAT EGFR(CKD-EPI) >90 See_Commen t July 17, 2022 06:51 AM [facility] PROTHROMBIN TIME/INR Specimen Type: PLASMA No comment entered. Ordering Provider: DANG VALLE R Report Released Date/Time: July 16, 2022 09:37 AM Reporting Lab: [facility] [address] Performing Lab: [facility] [address] .INR 1.0 0.8-1.1 .PT 11.5 9.4-12.5 July 17, 2022 06:51 AM [facility] CBC Specimen Type: BLOOD No comment entered. Ordering Provider: DANG VALLE R Report Released Date/Time: July 16, 2022 09:37 AM Reporting Lab: [facility] [address] Performing Lab: [facility] [address] WBC 6.05 4.0-11.0 RBC 3.77 L 4.6-6.2 HGB 12.7 L 13.5-17.9 HCT 36.0 L 41-54 MCV 95.5 80-100 MCH 33.7 H 27-33 MCHC 35.3 32.0-37.5 PLT 179 150-400 MPV 9.4 7.4-10.4 RDW 13.2 11.5-14.5 July 13, 2022 11:22 AM [facility] COVID-19 AND FLU/RSV DIAG PANEL(CEPHEID) Specimen Typ e: NASOPHARYNGEAL Comment: Cepheid GeneXpert (618) Ordering Provider: WHITNEY ANDERSON Report Released Date/Time: July 13, 2022 11:04 AM Reporting Lab: [facility] [address] Performing Lab: [facility] [address] COVID-19 (CEPHEID) Not Detected Not Detected INFLUENZA A (PCR) Not Detected Not Detected INFLUENZA B (PCR) Not Detected Not Detected RSV (PCR) Not Detected Not Detected July 13, 2022 11:00 AM [facility] C-REACTIVE PROTEIN Specimen Type: SERUM Comment: Automated Differential Performed Ordering Provider: WHITNEY ANDERSON Report Released Date/Time: July 13, 2022 11:04 AM Reporting Lab: [facility] [address] Performing Lab: [facility] [address] C-REACTIVE PROTEIN 1.17 <5.00 July 13, 2022 11:00 AM [facility] PROTHROMBIN TIME/INR Specimen Type: PLASMA No comment entered. Ordering Provider: WHITNEY ANDERSON Report Released Date/Time: July 13, 2022 11:04 AM Reporting Lab: [facility] [address] Performing Lab: [facility] [address] .INR 0.9 0.8-1.1 .PT 11.1 9.4-12.5 July 13, 2022 11:00 AM [facility] SED RATE Specimen Type: BLOOD No comment entered. Ordering Provider: WHITNEY ANDERSON Report Released Date/Time: July 13, 2022 11:04 AM Reporting Lab: [facility] [address] Performing Lab: [facility] [address] SED RATE 10 5-15 July 13, 2022 11:00 AM [facility] CBC & DIFF Specimen Type: BLOOD Comment: Automated Differential Performed Ordering Provider: WHITNEY ANDERSON Report Released Date/Time: July 13, 2022 11:04 AM Reporting Lab: [facility] [address] Performing Lab: [facility] [address] WBC 8.82 4.0-11.0 RBC 3.89 L 4.6-6.2 [...] 0.03 0-0.1 July 13, 2022 11:00 AM [facility] COMPREHENSIVE METABOLIC PANEL+MG Specimen Type: PLASMA Comment: Automated Differential Performed Ordering Provider: WHITNEY ANDERSON Report Released Date/Time: July 13, 2022 11:04 AM Reporting Lab: [facility] [address] Performing Lab: [facility] [address] CREATININE 1.0 0.7-1.2 UREA NITROGEN 16 8-26 [...] Source July 16, 2022 11:50 PM 6 [facility] July 16, 2022 10:58 PM 9 [facility] July 16, 2022 10:54 PM 9 [facility] July 16, 2022 10:49 PM 98.3 F 59 /min 130/75 mm[Hg] 19 /min 96 % 0 [facility] July 16, 2022 07:50 PM 6 [facility] Social History: Smoking Status (Most current) and Tobacco Use (All prior to encounter date) This section includes the most current, and the historical, smoking and tobacco- related health factors from the [place] facility where the Encounter took place. Current Smoking Status This section includes the most current smoking, or tobacco-related health factor, from the [place] facility where the Encounter took place. Date/Time Current Smoking Status Comment Facil ity May 10, 2022 09:15 AM VA-TOBACCO FORMER USER [facility] Tobacco Use History This section includes a history of the smoking, or tobacco-related health factors, that were collected on or before the date of the Encounter. The data comes from the [place] facility where the Encounter took place. Date/Time [...] ALL of a patient's completed or amended [place] Advance and Rescinded Directives. The entries below indicate that a directive exists for the patient, but an actual copy is not included with this document. The data comes from all [facility]. Date Advance Directives Provider Source Mar 18, 2003 ADVANCE DIRECTIVE FARHAT MELGAR [facility] Radiology Reports: +/- [...] the Encounter. The data comes from all [place] treatment facilities. Date/Time Radiology Report Provider Source July 20, 2022 07:50 AM CHEST 1 VIEW: MARYJO WAGNER [id number] -1950 M Exm Date: JULY 20, 2022@07:50 Req Phys: MACKENZIE COTTER [facility] Loc: 07-20-2022@08:26 Img Loc: MAIN X-RAY Service: PRIMARY CARE - MED OFFICE (Case [id number] COMPLETE) CHEST 1 VIEW (RAD Detailed) CPT:99683 Proc Modifiers : PORTABLE EXAM Reason for Study: see below. thanks. Clinical History: IS NOT under investigation for COVID-19 or is COVID-19 negative Please further evaluate for acute airspace disease given o2 requirement. Thanks. Responsible provider name and phone number to notify for critical findings if other than user placing the order and pager listed below: User placing orders pager: [phone] same LAST CREATININE 0.9 (07/19/22) Report Status: Verified Date Reported: JULY 20, 2022 Date Verified: JULY 20, 2022 Rn Medicare E-Sig:/ES/JAMIE MIGUEL MD Report: EXAM: CHEST 1 [...] pager listed below: User placing orders pager: [phone] same LAST CREATININE 0. COMPARISON: Chest CT [...] Primary Interpreting Staff: JAMIE MIGUEL MD, RADIOLOGIST (Rn Medicare) /JAMIE FRANCES [facility] July 18, 2022 12:59 PM ELBOW LEFT 2 VIEWS: MARYJO WAGNER [id number] -1950 M Exm Date: JULY 18, 2022@12:59 Req Phys: LEIF BALBUENA Pat Loc: OR-PACU/07-18-2022@13:59 Img Loc: MAIN X-RAY Service: ZZSURGICAL SERVICE (Case [id number] COMPLETE) ELBOW LEFT 2 VIEWS (RAD Detailed) CPT:48050 Proc Modifiers : PORTABLE EXAM, OPERATING ROOM EXAM Reason for Study: post-op Clinical History: post-op Report Status: Verified Date Reported: JULY 18, 2022 Date Verified: JULY 18, 2022 Rn Medicare E-Sig:/ES/JAKUB LEE MD Report: EXAM: ELBOW LEFT [...] Primary Interpreting Staff: JAKUB LEE MD, RADIOLOGIST (Rn Medicare) /[facility] [place] JAKUB LEE [facility] July 18, 2022 07:30 AM FLUORO UP TO 1 HR PHYSICIAN TIME: MARYJO WAGNER [id number] -1950 M Exm Date: JULY 18, 2022@07:30 Req Phys: LEIF BALBUENA Loc: OR-PACU/07-18-2022@13:14 Img Loc: MAIN X-RAY Service: PRIMARY CARE - MED OFFICE (Case [id number] COMPLETE) FLUORO UP TO 1 HR PHYSICIAN TIME (RAD Detailed) CPT:07801 Proc Modifiers : PORTABLE EXAM, OPERATING ROOM EXAM, LEFT Reason for Study: Left distal humerous ORIF Clinical History: OR 7 Pathologic distal humeral shaft fracture Responsible provider name and phone number to notify for critical findings if other than user placing the order and pager listed below: User placing orders pager: Henry BALBUENA [phone] LAST CREATININE 0.8 (07/17/22) Report Status: Electronically [...] Imaging Department. VERIFIED BY: / *ELECTRONICALLY FILED* [facility] July 17, 2022 03:28 PM ABDOMINAL AORTOGRAM (P): BERNARDMARYJO DIRK [id number] -1950 M Exm Date: JULY 17, 2022@15:28 Req Phys: MALCOM LANGLEY Loc: 07-17-2022@15:54 Img Loc: INTERVENTIONAL RADIOLOGY Service: PRIMARY CARE - MED OFFICE (Case 527 COMPLETE) ANGIOGRAPHY EXTREMITY UNILAT S&I (ANI Detailed) CPT:09759 Reason for Study: codes (Case 528 COMPLETE) IR AORTOGRAPHY ABDOMINAL W/O RUNO(ANI Detailed) CPT:22984 (Case 529 COMPLETE) IR FOREIGN BODY REMOVAL INTRAVASC(ANI Detailed) CPT:16608 (Case 532 COMPLETE) IR NEEDLE/INTRACATH PLACEMENT EXT(ANI Detailed) CPT:13945 (Case 533 COMPLETE) IR PLACEMENT OCCLUSIVE DEVICE SAM(ANI Detailed) CPT:G0269 Clinical History: codes Report Status: Verified Date Reported: JULY 17, 2022 Date Verified: JULY 17, 2022 Rn Medicare E-Sig:/ES/MALCOM LANGLEY MD Report: RADIOLOGIST: Malcom Langley [...] angiogram and runoff. 12. Closure of right SEO SPECIALIST with Angio-Seal device. HISTORY: Metastatic renal cell [...] Sheath removed over guidewire and a 5 bengali vascular sheath advanced over guidewire into the artery. An H1 catheter was advanced along with the guidewire into the thoracic arch and the left subclavian artery was selected. Catheter and the guidewire were advanced into the left brachial artery. The 5 Kittitian sheath was exchanged for a 6 Kittitian sheath that was advanced into the left [...] arteries. Sheath and catheters were removed and SEO SPECIALIST arteriotomy was closed using Angioseal. There is patent hemostasis. No bleeding or hematoma noted. Sterile dressing applied. 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 Primary Interpreting Staff: MALCOM LANGLEY MD, INTERVENTIONAL RADIOLOGIST (Rn Medicare) /MALCOM HE [facility] July 17, 2022 07:30 AM RENAL ARTERY EMBOLIZATION (P): MARYJO WAGNER [id number] -1950 M Exm Date: JULY 17, 2022@07:30 Req Phys: WESTON VASQUEZ Pat Loc: 07-17-2022@15:46 Img Loc: INTERVENTIONAL RADIOLOGY Service: PRIMARY CARE - MED OFFICE (Case 130 COMPLETE) IR TRANSCATH EMBOLIZATION W/ANGIO(ANI Detailed) CPT:20199 Reason for Study: embolization of RCC mets to left humerus (Case 131 COMPLETE) IR ARTERIAL EMBOLIZATION OTHER TH(ANI Detailed) CPT:63348 (Case 132 COMPLETE) IR US GUIDANCE VASCULAR ACCESS (ANI Detailed) CPT:79516 Clinical History: [place] IS NOT under investigation for COVID-19 or [...] pager listed below: User placing orders pager: [phone] LAST CREATININE 1.0 (07/13/22) Report Status: Verified Date Reported: JULY 17, 2022 Date Verified: JULY 17, 2022 Rn Medicare E-Sig:/ES/MLACOM LANGLEY MD Report: RADIOLOGIST: Malcom Langley M.D. [...] angiogram and runoff. 12. Closure of right SEO SPECIALIST with Angio-Seal device. HISTORY: Metastatic renal cell [...] Sheath removed over guidewire and a 5 bengali vascular sheath advanced over guidewire into the artery. An H1 catheter was advanced along with the guidewire into the thoracic arch and the left subclavian artery was selected. Catheter and the guidewire were advanced into the left brachial artery. The 5 Kittitian sheath was exchanged for a 6 Kittitian sheath that was advanced into the left [...] arteries. Sheath and catheters were removed and SEO SPECIALIST arteriotomy was closed using Angioseal. There is patent hemostasis. No bleeding or hematoma noted. Sterile dressing applied. 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 Primary Interpreting Staff: MALCOM LANGLEY MD, INTERVENTIONAL RADIOLOGIST (Rn Medicare) /MALCOM HE [facility] July 14, 2022 06:44 AM HUMERUS LEFT MINIMUM 2 VIEWS: MARYJO WAGNER [id number] -1950 M Ex Date: JULY 14, 2022@06:44 Req Phys: PEDROHERBERTJAIRO [facility] Loc: 07-14-2022@07:13 Img Loc: MAIN X-RAY Service: PRIMARY CARE - MED OFFICE (Case [id number] COMPLETE) HUMERUS LEFT MINIMUM 2 VIEWS (RAD Detailed) CPT:36656 Reason for Study: post reduction Clinical History: Report Status: Verified Date Reported: JULY 14, 2022 Date Verified: JULY 14, 2022 Rn Medicare E-Sig: Report: HUMERUS LEFT MINIMUM 2 VIEWS HISTORY: post reduction COMPARISON: 07/13/2022 TECHNIQUE: 2 view(s) of the humerus, submitted to the [place] National Teleradiology Program (NTP) for interpretation. FINDINGS: [...] less likely. READING PHYSICIAN: Xavier Merrill MD -[phone] 07/14/2022 5:11 PDT [facility] National Teleradiology Program [phone] (For Medical Practitioner Use Only) Attention Patients / Veterans: If you have questions or concerns about these test results, please contact your ordering provider or primary care team. Primary Interpreting Staff: RADIOLOGY,OUTSIDE SERVICE, Staff Physician / RADIOLOGY,OUTSIDE SERVICE [facility] July 13, 2022 10:07 AM HUMERUS LEFT MINIMUM 2 VIEWS: MARYJO WAGNER [id number] -1950 M Ex Date: JULY 13, 2022@10:07 Req Phys: WHITNEY ANDERSON Pat Loc: [facility] EMERGENCY DEPT WALK-IN (Re Img Loc: MAIN X-RAY Service: Unknown (Case [id number] COMPLETE) HUMERUS LEFT MINIMUM 2 VIEWS (RAD Detailed) CPT:25527 Proc Modifiers : LEFT Reason for Study: L arm pain Clinical History: [place] IS NOT under investigation for COVID-19 or is COVID-19 negative Atraumatic left upper extremity pain that is located midshaft humerus distally to the mid forearm. Clinical concern for dislocation versus fracture versus bone mets Responsible provider name and phone number to notify for critical findings if other than user placing the order and pager listed below: User placing orders pager: [phone] LAST CREATININE 0.8 (05/10/22) Report Status: Verified Date Reported: JULY 13, 2022 Date Verified: JULY 13, 2022 Rn Medicare E-Sig:/ES/ALBINA COWAN MD, FACR, CCD Report: EXAMINATION: [...] Staff: ALBINA COWAN MD, FACR, STAFF RADIOLOGIST (Rn Medicare) /[facility] ALBINA COWAN [facility] July 13, 2022 10:07 AM ELBOW LEFT 3 OR MORE VIEWS: MARYJO WAGNER [id number] -1950 M Exm Date: JULY 13, 2022@10:07 Req Phys: WHITNEY ANDERSON Pat Loc: [facility] EMERGENCY DEPT WALK-IN (Re Img Loc: MAIN X-RAY Service: Unknown (Case [id number] COMPLETE) ELBOW LEFT 3 OR MORE VIEWS (RAD Detailed) CPT:45328 Proc Modifiers : LEFT Reason for Study: L arm pain Clinical History: [place] IS NOT under investigation for COVID-19 or is COVID-19 negative Atraumatic left upper extremity pain that is located midshaft humerus distally to the mid forearm. Clinical concern for dislocation versus fracture versus bone mets Responsible provider name and phone number to notify for critical findings if other than user placing the order and pager listed below: User placing orders pager: [phone] LAST CREATININE 0.8 (05/10/22) Report Status: Verified Date Reported: JULY 13, 2022 Date Verified: JULY 13, 2022 Rn Medicare E-Sig:/ES/ALBINA COWAN MD, FACR, CCD Report: EXAMINATION: [...] Staff: ALBINA COWAN MD, FACR, STAFF RADIOLOGIST (Rn Medicare) /ALBINA NATHAN [facility] July 13, 2022 10:07 AM FOREARM LEFT 2 VIEWS: MARYJO WAGNER [id number] -1950 M Exm Date: JULY 13, 2022@10:07 Req Phys: MONICAWHITNEY MARIN Pat Loc: [facility] EMERGENCY DEPT WALK-IN (Re Img Loc: MAIN X-RAY Service: Unknown (Case 2151 COMPLETE) FOREARM LEFT 2 VIEWS (RAD Detailed) CPT:07830 Proc Modifiers : LEFT Reason for Study: L arm pain Clinical History: [place] IS NOT under investigation for COVID-19 or is COVID-19 negative Atraumatic left upper extremity pain that is located midshaft humerus distally to the mid forearm. Clinical concern for dislocation versus fracture versus bone mets Responsible provider name and phone number to notify for critical findings if other than user placing the order and pager listed below: User placing orders pager: [phone] LAST CREATININE 0.8 (05/10/22) Report Status: Verified Date Reported: JULY 13, 2022 Date Verified: JULY 13, 2022 Rn Medicare E-Sig:/ES/ALBINA COWAN MD, FACR, [facility] Report: EXAMINATION: FOREARM LEFT 2 VIEWS [...] Staff: ALBINA COWAN MD, FACR, STAFF RADIOLOGIST (Rn Medicare) /ALBINA NATHAN [facility] Pathology Reports: +/- 30 days [...] the Encounter. The data comes from all [place] treatment facilities. Date/Time Pathology Report Provider Source July 13, 2022 04:06 PM LR SURGICAL PATHOL OGY REPORT: LOCAL TITLE: LR SURGICAL PATHOLOGY REPORT STANDARD TITLE: PATHOLOGY REPORT DATE OF NOTE: JULY 21, 2022@14:37:27 ENTRY DATE: JULY 21, 2022@14:37:27 AUTHOR: JIAN SANDOVAL EXP COSIGNER: URGENCY: STATUS: COMPLETED $APHDR Reporting Lab: [facility] [CLIA# [id number]] [place] [address] - - - - - - - [...] were discussed with Dr. Balbuena by Dr. KRER. MICROSCOPIC DESCRIPTION: SPECS. 1, 2, 3. Microscopic [...] Performing Laboratory: Surgical Pathology Report Performed By: [facility] [CLIA# [id number]] [place] [address] $FTR - - - - - - [...] - - MARYJO WAGNER STANDARD FORM 515 ID:[id number] SEX:M :1950 AGE: 72 LOC:[facility] PATHOLOGY PRO FEE ADM:June DX:PATHOLOGIC FX LF HUMERUS PCP: Leif Balbuena MD /sangita/ JIAN SANDOVAL STAFF PATHOLOGIST, PATHOLOGY & LABORATORY MED C Signed: 07/21/2022 14:37 JIAN SANDOVAL [facility]
--- OUTSIDE RECORDS SUMMARY | 2023-03-24 09:02 | XMS_ITS ---
HOSPITALIZATION [facility] Encounter Summary Created on: March 24, 2023 MARYJO WAGNER : 1950 Sex: Male 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 Address [address] [place] [id number] Support Name Relationship Address Phone DOREEN WAGNER Next of Kin [address] [place] [phone] DOREEN Emergency Contact [address] [place] [phone] Insurance Providers: All historical and current [...] Name Patient's Relationship to Policy [place] [employer] [facility] (WNR) MEDICARE ADVANTAGE [facility] (R) June 26, 2016 [id number] JOAN WAGNER PATIENT [employer] MCR (WNR) MEDICARE ADVANTAGE [facility] (WNR) June 26, 2016 [id number] BERNARDJOAN KARSTEN PATIENT [employer] MCR (WNR) MEDICARE ADVANTAGE [facility] (WNR) June 26, 2016 [id number] JOAN WAGNER KARSTEN PATIENT Selected Encounter This section includes the information on record at DC for the Encounter. Date/Time Encounter Type Encounter Description Reason Pro vider Source July 13, 2022 04:06 PM Inpatient Visit HOSPITALIZATION [facility] Encounter Template Text not used by DC [...] 20 appointments. The data comes from all [facility]. Appointment Date/Time Appointment Type Appointme nt Facility Name Jul 28, 2022 10:45 AM [facility] Aug 13, 2022 06:13 PM AMBULATORY - MEDICINE [facility] Aug 23, 2022 09:30 AM AMBULATORY - SURGERY [facility] Aug 23, 2022 09:45 AM AMBULATORY - NONE [facility] Aug 23, 2022 10:30 AM AMBULATORY - MEDICINE [facility] Aug 23, 2022 10:31 AM AMBULATORY - MEDICINE [facility] Sep 06, 2022 10:15 AM AMBULATORY - SURGERY [facility] Oct 25, 2022 07:00 AM [facility] Oct 25, 2022 07:30 AM AMBULATORY [...] of theEncounter. The data comes from all [facility]. Test Date/Time Test Type Test Details Facility Name Jun 12, 2022 12:00 AM Laboratory - Chemistry Order CBC & DIFF BLOOD ONCO SP ONCE [facility] Jun 12, 2022 12:00 AM Laboratory - Chemistry Order COMPREHENSIVE METABOLIC PANEL+MG PLASMA ONCO SP ONCE [facility] Jun 12, 2022 12:00 AM Laboratory - Chemistry Order TSH W/REFLEX TO FREE T4 PLASMA ONCO SP ONCE [facility] July 14, 2022 12:00 AM [...] - Chemistry Order URINALYSIS URINE ER STAT [place] [...] Range Comment July 19, 2022 04:40 PM [facility] FINGERSTICK GLUCOSE Specimen Type: BLOOD Comment: Save Result Nurse Notified Ordering Provider: MACKENZIE COTTER Report Released Date/Time: July 19, 2022 05:00 PM Reporting Lab: [facility] [address] Performing Lab: [facility] [address] FINGERSTICK GLUCOSE 132 70-100 July 19, 2022 07:13 AM [facility] COMPREHENSIVE METABOLIC PANEL+MG Specimen Type: PLASMA No comment entered. Ordering Provider: MACKENZIE COTTER Report Released Date/Time: July 18, 2022 05:40 PM Reporting Lab: [facility] [address] Performing Lab: [facility] [address] CREATININE 0.9 0.7-1.2 UREA NITROGEN 24 8-26 [...] 2022 05:40 PM Reporting Lab: [facility] [address] Performing Lab: [facility] [address] IRON 28 L 65-175 TIBC,CALCULATE D 223 L 250-425 FERRITIN 73.7 21.8-274.7 IRON SATURATION 13 L 20-50 TRANSFERRIN 178 163-382 July 19, 2022 07:13 AM [facility] CBC Specimen Type: BLOOD No comment entered. Ordering Provider: MACKENZIE COTTER Report Released Date/Time: July 18, 2022 05:40 PM Reporting Lab: [facility] [address] Performing Lab: [facility] [address] WBC 7.73 4.0-11.0 RBC 2.42 L 4.6-6.2 [...] 2022 11:54 AM Reporting Lab: [facility] [address] Performing Lab: [facility] [address] FINGERSTICK GLUCOSE 137 70-100 July 18, 2022 10:51 PM [facility] FINGERSTICK GLUCOSE Specimen Type: BLOOD Comment: Save Result Nurse Notified Ordering Provider: MACKENZIE COTTER Report Released Date/Time: July 18, 2022 11:06 PM Reporting Lab: [facility] [address] Performing Lab: [facility] [address] FINGERSTICK GLUCOSE 163 70-100 July 17, 2022 06:51 AM [facility] BASIC METABOLIC PANEL+MG Specimen Type: PLASMA No comment entered. Ordering Provider: DANG VALLE Report Released Date/Time: July 16, 2022 09:37 AM Reporting Lab: [facility] [address] Performing Lab: [facility] [address] CREATININE 0.8 0.7-1.2 UREA NITROGEN 23 8-26 [...] 2022 09:37 AM Reporting Lab: [facility] [address] Performing Lab: [facility] [address] .INR 1.0 0.8-1.1 .PT 11.5 9.4-12.5 July 17, 2022 06:51 AM [facility] CBC Specimen Type: BLOOD No comment entered. Ordering Provider: DANG VALLE R Report Released Date/Time: July 16, 2022 09:37 AM Reporting Lab: [facility] [address] Performing Lab: [facility] [address] WBC 6.05 4.0-11.0 RBC 3.77 L 4.6-6.2 HGB 12.7 L 13.5-17.9 HCT 36.0 L 41-54 MCV 95.5 80-100 MCH 33.7 H 27-33 MCHC 35.3 32.0-37.5 PLT 179 150-400 MPV 9.4 7.4-10.4 RDW 13.2 11.5-14.5 July 13, 2022 11:22 AM [facility] COVID-19 AND FLU/RSV DIAG PANEL(CEPHEID) Specimen Typ e: NASOPHARYNGEAL Comment: Cepheid GeneXpert (618) Ordering Provider: WHITNEY ANDERSON Report Released Date/Time: July 13, 2022 11:04 AM Reporting Lab: [facility] [address] Performing Lab: [facility] [address] COVID-19 (CEPHEID) Not Detected Not Detected INFLUENZA A (PCR) Not Detected Not Detected INFLUENZA B (PCR) Not Detected Not Detected RSV (PCR) Not Detected Not Detected July 13, 2022 11:00 AM [facility] C-REACTIVE PROTEIN Specimen Type: SERUM Comment: Automated Differential Performed Ordering Provider: WHITNEY ANDERSON Report Released Date/Time: July 13, 2022 11:04 AM Reporting Lab: [facility] [address] Performing Lab: [facility] [address] C-REACTIVE PROTEIN 1.17 <5.00 July 13, 2022 11:00 AM [facility] SED RATE Specimen Type: BLOOD No comment entered. Ordering Provider: WHITNEY ANDERSON Report Released Date/Time: July 13, 2022 11:04 AM Reporting Lab: [facility] [address] Performing Lab: [facility] [address] SED RATE 10 5-15 July 13, 2022 11:00 AM [facility] PROTHROMBIN TIME/INR Specimen Type: PLASMA No comment entered. Ordering Provider: WHITNEY ANDERSON Report Released Date/Time: July 13, 2022 11:04 AM Reporting Lab: [facility] [address] Performing Lab: [facility] [address] .INR 0.9 0.8-1.1 .PT 11.1 9.4-12.5 July 13, 2022 11:00 AM [facility] CBC & DIFF Specimen Type: BLOOD Comment: Automated Differential Performed Ordering Provider: WHITNEY ANDERSON Report Released Date/Time: July 13, 2022 11:04 AM Reporting Lab: [facility] [address] Performing Lab: [facility] [address] WBC 8.82 4.0-11.0 RBC 3.89 L 4.6-6.2 [...] 0.03 0-0.1 July 13, 2022 11:00 AM [facility] COMPREHENSIVE METABOLIC PANEL+MG Specimen Type: PLASMA Comment: Automated Differential Performed Ordering Provider: WHITNEY ANDERSON Report Released Date/Time: July 13, 2022 11:04 AM Reporting Lab: [facility] [address] Performing Lab: [facility] [address] CREATININE 1.0 0.7-1.2 UREA NITROGEN 16 8-26 [...] Source July 13, 2022 11:25 PM 8 [facility] July 13, 2022 11:18 PM 97.8 F 60 /min 169/90 mm[Hg] 20 /min 96 % 7 [facility] July 13, 2022 07:29 PM 97.9 F 64 /min 152/78 mm[Hg] 18 /min 93 % 0 [facility] July 13, 2022 06:00 PM 4 [facility] July 13, 2022 05:10 PM 8 [facility] Social History: Smoking Status (Most current) and [...] F acility May 10, 2022 09:15 AM DC-TOBACCO QUIT 15 YRS OR MORE [facility] May 11, 2021 09:15 AM VA-TOBACCO FORMER USER [facility] May 11, 2021 09:15 AM DC-TOBACCO QUIT 15 YRS OR MORE [facility] [...] this document. The data comes from all [facility]. Date Advance Directives Provider Source Mar 18, 2003 ADVANCE DIRECTIVE FARHAT MELGAR [facility] Radiology Reports: +/- 30 days [...] 07:50 AM CHEST 1 VIEW: MARYJO WAGNER [id number] -1950 M Exm Date: JULY 20, 2022@07:50 Req Phys: MACKENZIE COTTER Pat Loc: 07-20-2022@08:26 Img Loc: MAIN X-RAY Service: PRIMARY CARE - MED OFFICE (Case [id number] COMPLETE) CHEST 1 VIEW (RAD Detailed) CPT:42093 Proc Modifiers : PORTABLE EXAM Reason for Study: see below. thanks. Clinical History: IS NOT under investigation for COVID-19 or is COVID-19 negative Please further evaluate for acute airspace disease given o2 requirement. Thanks. Responsible provider name and phone number to notify for critical findings if other than user placing the order and pager listed below: User placing orders pager: [phone] same LAST CREATININE 0.9 (07/19/22) Report Status: Verified Date Reported: JULY 20, 2022 Date Verified: JULY 20, 2022 Security Project Manager E-Sig:/ES/JAMIE MIGUEL MD Report: EXAM: CHEST 1 VIEW HISTORY: see below. thanks. Reason for Study: see below. thanks. [place] IS NOT under investigation for COVID-19 or is COVID-19 negative Please further evaluate for acute airspace disease given o2 requirement. Thanks. Responsible provider name and phone number to notify for critical findings if other than user placing the order and pager listed below: User placing orders pager: [phone] same LAST CREATININE 0. COMPARISON: Chest CT [...] Primary Interpreting Staff: JAMIE MIGUEL MD, RADIOLOGIST (Security Project Manager) /JAMIE FRANCES [facility] July 18, 2022 12:59 PM ELBOW LEFT 2 VIEWS: MARYJO WAGNER [id number] -1950 M Exm Date: JULY 18, 2022@12:59 Req Phys: LEIF BALBUENA Loc: OR-PACU/07-18-2022@13:59 Img Loc: MAIN X-RAY Service: [facility]ZSURGICAL SERVICE (Case [id number] COMPLETE) ELBOW LEFT 2 VIEWS (RAD Detailed) CPT:59498 Proc Modifiers : PORTABLE EXAM, OPERATING ROOM EXAM Reason for Study: post-op Clinical History: post-op Report Status: Verified Date Reported: JULY 18, 2022 Date Verified: JULY 18, 2022 Security Project Manager E-Sig:/ES/JAKUB LEE MD Report: EXAM: ELBOW [...] Primary Interpreting Staff: JAKUB LEE MD, RADIOLOGIST (Security Project Manager) /JAKUB LUCERO [facility] July 18, 2022 07:30 AM FLUORO UP TO 1 HR PHYSICIAN TIME: MARYJO WAGNER [id number] -1950 M Exm Date: JULY 18, 2022@07:30 Req Phys: LEIF BALBUENA Loc: OR-PACU/07-18-2022@13:14 Img Loc: MAIN X-RAY Service: PRIMARY CARE - MED OFFICE (Case [id number] COMPLETE) FLUORO UP TO 1 HR PHYSICIAN TIME (RAD Detailed) CPT:85141 Proc Modifiers : PORTABLE EXAM, OPERATING ROOM EXAM, LEFT Reason for Study: Left distal humerous ORIF Clinical History: OR 7 Pathologic distal humeral shaft fracture Responsible provider name and phone number to notify for critical findings if other than user placing the order and pager listed below: User placing orders pager: Henry BALBUENA [phone] LAST CREATININE 0.8 (07/17/22) Report Status: Electronically [...] 03:28 PM ABDOMINAL AORTOGRAM (P): MARYJO WAGNER [id number] -1950 M Exm Date: JULY 17, 2022@15:28 Req Phys: MALCOM LANGLEY [facility] Loc: 07-17-2022@15:54 Img Loc: INTERVENTIONAL RADIOLOGY Service: PRIMARY CARE - MED OFFICE (Case [id number] COMPLETE) ANGIOGRAPHY EXTREMITY UNILAT S&I (ANI Detailed) CPT:40753 Reason for Study: codes (Case 528 COMPLETE) IR AORTOGRAPHY ABDOMINAL W/O RUNO(ANI Detailed) CPT:65251 (Case 529 COMPLETE) IR FOREIGN BODY REMOVAL INTRAVASC(ANI Detailed) CPT:01148 (Case 532 COMPLETE) IR NEEDLE/INTRACATH PLACEMENT EXT(ANI Detailed) CPT:75290 (Case 533 COMPLETE) IR PLACEMENT OCCLUSIVE DEVICE SAM(ANI Detailed) CPT:G0269 Clinical History: codes Report Status: Verified Date Reported: JULY 17, 2022 Date Verified: JULY 17, 2022 Security Project Manager E-Sig:/ES/MALCOM LANGLEY MD Report: RADIOLOGIST: Malcom [...] angiogram and runoff. 12. Closure of right SOLAR INSTALLATION MANAGER with Angio-Seal device. HISTORY: Metastatic renal [...] Sheath removed over guidewire and a 5 citizen of the [place] vascular sheath advanced over guidewire into the artery. An H1 catheter was advanced along with the guidewire into the thoracic arch and the left subclavian artery was selected. Catheter and the guidewire were advanced into the left brachial artery. The 5 Naur[place] sheath was exchanged for a 6 [place]auruan sheath that was advanced into the left [...] arteries. Sheath and catheters were removed and SOLAR INSTALLATION MANAGER arteriotomy was closed using Angioseal. There is patent hemostasis. No bleeding or hematoma noted. Sterile dressing applied. 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 Primary Interpreting Staff: MALCOM LANGLEY MD, INTERVENTIONAL RADIOLOGIST (Security Project Manager) /MALCOM HE [facility] July 17, 2022 07:30 AM RENAL ARTERY EMBOLIZATION (P): MARYJO WAGNER [id number] -1950 M Exm Date: JULY 17, 2022@07:30 Req Phys: WESTON VASQUEZ Pat Loc: 07-17-2022@15:46 Img Loc: INTERVENTIONAL RADIOLOGY Service: PRIMARY CARE - MED OFFICE (Case 130 COMPLETE) IR TRANSCATH EMBOLIZATION W/ANGIO(ANI Detailed) CPT:09023 Reason for Study: embolization of RCC mets to left humerus (Case 131 COMPLETE) IR ARTERIAL EMBOLIZATION OTHER TH(ANI Detailed) CPT:52901 (Case 132 COMPLETE) IR US GUIDANCE VASCULAR ACCESS (ANI Detailed) CPT:01602 Clinical History: [place] IS NOT under investigation for COVID-19 or [...] pager listed below: User placing orders pager: [phone] LAST CREATININE 1.0 (07/13/22) Report Status: Verified Date Reported: JULY 17, 2022 Date Verified: JULY 17, 2022 Security Project Manager E-Sig:/ES/MALCOM LANGLEY MD Report: RADIOLOGIST: Malcom [...] angiogram and runoff. 12. Closure of right SOLAR INSTALLATION MANAGER with Angio-Seal device. HISTORY: Metastatic renal [...] Sheath removed over guidewire and a 5 citizen of the [place] vascular sheath advanced over guidewire into the artery. An H1 catheter was advanced along with the guidewire into the thoracic arch and the left subclavian artery was selected. Catheter and the guidewire were advanced into the left brachial artery. The 5 Nauruan sheath was exchanged for a 6 [place]auruan sheath that was advanced into the left [...] arteries. Sheath and catheters were removed and SOLAR INSTALLATION MANAGER arteriotomy was closed using Angioseal. There is patent hemostasis. No bleeding or hematoma noted. Sterile dressing applied. 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 Primary Interpreting Staff: MALCOM LANGLEY MD, INTERVENTIONAL RADIOLOGIST (Security Project Manager) /MALCOM HE [facility] July 14, 2022 06:44 AM HUMERUS LEFT MINIMUM 2 VIEWS: MARYJO WAGNER [id number] -1950 M Exm Date: JULY 14, 2022@06:44 Req Phys: WESTON VASQUEZ [facility] Loc: 07-14-2022@07:13 Img Loc: MAIN X-RAY Service: PRIMARY CARE - MED OFFICE (Case [id number] COMPLETE) HUMERUS LEFT MINIMUM 2 VIEWS (RAD Detailed) CPT:25624 Reason for Study: post reduction Clinical History: Report Status: Verified Date Reported: JULY 14, 2022 Date Verified: JULY 14, 2022 Security Project Manager E-Sig: Report: HUMERUS LEFT MINIMUM 2 [...] less likely. READING PHYSICIAN: Xavier Merrill MD -[id number] 07/14/2022 5:11 PDT [facility] National Teleradiology Program [phone] (For Medical Practitioner Use Only) Attention Patients / Veterans: If you have questions or concerns about these test results, please contact your ordering provider or primary care team. Primary Interpreting Staff: RADIOLOGY,OUTSIDE SERVICE, Staff Physician / RADIOLOGY,OUTSIDE SERVICE [facility] July 13, 2022 10:07 AM HUMERUS LEFT MINIMUM 2 VIEWS: MARYJO WAGNER [id number] -1950 M Ex Date: JULY 13, 2022@10:07 Req Phys: WHITNEY ANDERSON Pat Loc: [facility] EMERGENCY DEPT WALK-IN (Re Img Loc: MAIN X-RAY Service: Unknown (Case [id number] COMPLETE) HUMERUS LEFT MINIMUM 2 VIEWS (RAD Detailed) CPT:96749 Proc Modifiers : LEFT Reason for Study: L arm pain Clinical History: [place] IS NOT under investigation for COVID-19 or is COVID-19 negative Atraumatic left upper extremity pain that is located midshaft humerus distally to the mid forearm. Clinical concern for dislocation versus fracture versus bone mets Responsible provider name and phone number to notify for critical findings if other than user placing the order and pager listed below: User placing orders pager: [phone] LAST CREATININE 0.8 (05/10/22) Report Status: Verified Date Reported: JULY 13, 2022 Date Verified: JULY 13, 2022 Security Project Manager E-Sig:/SANGITA/ALBINA COWAN MD, FACR, CCD Report: [...] Staff: ALBINA COWAN MD, FACR, STAFF RADIOLOGIST (Security Project Manager) /BSF ALBINA COWAN [facility] July 13, 2022 10:07 AM ELBOW LEFT 3 OR MORE VIEWS: MARYJO WAGNER [id number] -1950 M Exm Date: JULY 13, 2022@10:07 Req Phys: WHITNEY ANDERSON Pat Loc: [facility] EMERGENCY DEPT WALK-IN (Re Img Loc: MAIN X-RAY Service: Unknown (Case [id number] COMPLETE) ELBOW LEFT 3 OR MORE VIEWS (RAD Detailed) CPT:01154 Proc Modifiers : LEFT Reason for Study: [...] pager listed below: User placing orders pager: [phone] LAST CREATININE 0.8 (05/10/22) Report Status: Verified Date Reported: JULY 13, 2022 Date Verified: JULY 13, 2022 Security Project Manager E-Sig:/SANGITA/ALBINA COWAN MD, FACR, CCD Report: [...] Staff: ALBINA COWAN MD, FACR, STAFF RADIOLOGIST (Security Project Manager) /ALBINA NATHAN [facility] July 13, 2022 10:07 AM FOREARM LEFT 2 VIEWS: MARYJO WAGNER [id number] -1950 M Exm Date: JULY 13, 2022@10:07 Req Phys: WHITNEY ANDERSON Pat Loc: [facility] EMERGENCY DEPT WALK-IN (Re Img Loc: MAIN X-RAY Service: Unknown (Case [id number] COMPLETE) FOREARM LEFT 2 VIEWS (RAD Detailed) CPT:95453 Proc Modifiers : LEFT Reason for Study: L arm pain Clinical History: [place] IS NOT under investigation for COVID-19 or is COVID-19 negative Atraumatic left upper extremity pain that is located midshaft humerus distally to the mid forearm. Clinical concern for dislocation versus fracture versus bone mets Responsible provider name and phone number to notify for critical findings if other than user placing the order and pager listed below: User placing orders pager: [phone] LAST CREATININE 0.8 (05/10/22) Report Status: Verified Date Reported: JULY 13, 2022 Date Verified: JULY 13, 2022 Security Project Manager E-Sig:/ES/ALBINA COWAN MD, FACR, CCD Report: [...] Staff: ALBINA COWAN MD, FACR, STAFF RADIOLOGIST (Security Project Manager) /ALBINA NATHAN [facility] Pathology Reports: +/- [...] Reporting Lab: [facility] [CLIA# [id number]] [place] [address] - - - - - - - [...] STAFF PATHOLOGIST, PATHOLOGY & LABORATORY MED [facility] Signed July 21, 2022@14:37 Performing Laboratory: Surgical Pathology Report Performed By: [facility] [CLIA# [id number]] [place] [address] $FTR - - - - - - [...] - - MARYJO WAGNER STANDARD FORM 515 ID:[id number] SEX:M :1950 AGE: 72 LOC:[facility] PATHOLOGY PRO FEE ADM:June DX:PATHOLOGIC FX LF HUMERUS PCP: Leif Balbuena MD /sangita/ JIAN SANDOVAL STAFF PATHOLOGIST, PATHOLOGY & LABORATORY MED [facility] Signed: 07/21/2022 14:37 JIAN SANDOVAL [facility]
--- OUTSIDE RECORDS SUMMARY | 2023-03-24 09:02 | XMS_ITS | Encounter Summary ---
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 [facility] Organization Department of [facility] Address [address] [place] [address] Support Name Relationship Address Phone DOREEN WAGNER Next of Kin [phone] [place] [phone] DOREEN Emergency Contact [address] [place] [address] Insurance Providers: All historical and current [...] Name Patient's Relationship to Policy Casey [employer]NA [facility] (WNR) MEDICARE [facility] ([facility]) June 26, 2016 [id number] CARSONJOAN ROWELL PATIENT [employer]MANA MCR (WNR) MEDICARE ADVANTAGE [facility] ([facility]) June 26, 2016 [id number] [phone] JOAN WAGNER KARSTEN PATIENT [employer]MANA MCR (WNR) MEDICARE ADVANTAGE [facility] (R) June 26, 2016 [id number] JOAN WAGNER KARSTEN PATIENT Selected Encounter This section includes the information on record at [place] for the Encounter. Date/Time Encounter Type Encounter Description Reason Pro vider Source July 16, 2022 01:00 AM Inpatient Visit ADMIN Mir[employer] ([employer]) SYSTEM,CIS-ARK IHE Encounter Template Text not used [...] 28, 2022 10:45 AM [facility] Aug 13, 2022 06:13 PM [facility] Aug 23, 2022 09:30 AM AMBULATORY - SURGERY [facility] Aug 23, 2022 09:45 AM [facility] Aug 23, 2022 10:30 AM AMBULATORY - MEDICINE [facility] Aug 23, 2022 10:31 AM AMBULATORY - MEDICINE [facility] Sep 06, 2022 10:15 AM AMBULATORY - SURGERY [facility] Oct 25, 2022 07:00 AM [facility] Oct 25, 2022 07:30 AM [...] CBC & DIFF BLOOD ONCO SP ONCE [facility] Jun 12, 2022 12:00 AM Laboratory - Chemistry Order COMPREHENSIVE METABOLIC PANEL+MG PLASMA ONCO SP ONCE [facility] Jun 12, 2022 12:00 AM Laboratory - Chemistry Order TSH W/REFLEX TO FREE T4 PLASMA ONCO SP ONCE [facility] July 14, 2022 12:00 AM Laboratory - Blood Bank Order ABO/RH - LAB BLOOD [facility] July 14, 2022 02:05 PM Laboratory - Blood Bank Order TYPE & SCREEN - LAB BLOOD [facility] Aug 07, 2022 11:23 AM Laboratory - Chemistry Order DRUG SCREEN PANEL,URINE URINE ONCE [facility] Aug 23, 2022 10:47 AM Laboratory - Chemistry Order URINALYSIS URINE ER STAT WC [facility] Lab Results: +/- 30 days of [...] Range Comment July 19, 2022 04:40 PM [facility] FINGERSTICK GLUCOSE Specimen Type: BLOOD Comment: Save Result Nurse Notified Ordering Provider: MACKENZIE COTTER Report Released Date/Time: July 19, 2022 05:00 PM Reporting Lab: [facility] [address] Performing Lab: [facility] [address] FINGERSTICK GLUCOSE 132 70-100 July 19, 2022 07:13 AM [facility] COMPREHENSIVE METABOLIC PANEL+MG Specimen Type: PLASMA No comment entered. Ordering Provider: MACKENZIE COTTER Report Released Date/Time: July 18, 2022 05:40 PM Reporting Lab: [facility] [address] Performing Lab: [facility] [address] CREATININE 0.9 0.7-1.2 UREA NITROGEN 24 8-26 [...] See_Commen t July 19, 2022 07:13 AM [facility] IRON GROUP Specimen Type: SERUM No comment entered. Ordering Provider: MACKENZIE COTTER Report Released Date/Time: July 18, 2022 05:40 PM Reporting Lab: [facility] [address] Performing Lab: [facility] [address] IRON 28 L 65-175 TIBC,CALCULATE D 223 L 250-425 FERRITIN 73.7 21.8-274.7 IRON SATURATION 13 L 20-50 TRANSFERRIN 178 163-382 July 19, 2022 07:13 AM [facility] CBC Specimen Type: BLOOD No comment entered. Ordering Provider: MACKENZIE COTTER Report Released Date/Time: July 18, 2022 05:40 PM Reporting Lab: [facility] [address] Performing Lab: [facility] [address] WBC 7.73 4.0-11.0 RBC 2.42 L 4.6-6.2 HGB 8.2 L 13.5-17.9 HCT 23.8 L 41-54 MCV 98.3 80-100 MCH 33.9 H 27-33 MCHC 34.5 32.0-37.5 PLT 155 150-400 MPV 9.6 7.4-10.4 RDW 13.5 11.5-14.5 July 19, 2022 05:44 AM [facility] FINGERSTICK GLUCOSE Specimen Type: BLOOD Comment: Save Result Nurse Notified Ordering Provider: MACKENZIE COTTER Report Released Date/Time: July 19, 2022 11:54 AM Reporting Lab: [facility] [address] Performing Lab: [facility] [address] FINGERSTICK GLUCOSE 137 70-100 July 18, 2022 10:51 PM [facility] FINGERSTICK GLUCOSE Specimen Type: BLOOD Comment: Save Result Nurse Notified Ordering Provider: MACKENZIE COTTER Report Released Date/Time: July 18, 2022 11:06 PM Reporting Lab: [facility] [address] Performing Lab: [facility] [address] FINGERSTICK GLUCOSE 163 70-100 July 17, 2022 06:51 AM [facility] BASIC METABOLIC PANEL+MG Specimen Type: PLASMA No comment entered. Ordering Provider: DANG VALLE Report Released Date/Time: July 16, 2022 09:37 AM Reporting Lab: [facility] [address] Performing Lab: [facility] [address] CREATININE 0.8 0.7-1.2 UREA NITROGEN 23 8-26 GLUCOSE 107 H 70-100 SODIUM 139 136-145 POTASSIUM 3.9 3.5-5.1 CHLORIDE 106 98-107 CO2 28 22-29 CALCIUM 9.1 8.4-10.2 MAGNESIUM 1.9 1.6-2.6 ANION GAP 5 5-15 .CREAT EGFR(CKD-EPI) >90 See_Commen t July 17, 2022 06:51 AM [facility] PROTHROMBIN TIME/INR Specimen Type: PLASMA No comment entered. Ordering Provider: DANG VALLE R Report Released Date/Time: July 16, 2022 09:37 AM Reporting Lab: [facility] [address] Performing Lab: [facility] [address] .INR 1.0 0.8-1.1 .PT 11.5 9.4-12.5 July 17, 2022 06:51 AM [facility] CBC Specimen Type: BLOOD No comment entered. Ordering Provider: DANG VALLE R Report Released Date/Time: July 16, 2022 09:37 AM Reporting Lab: [facility] [address] Performing Lab: [facility] [address] WBC 6.05 4.0-11.0 RBC 3.77 L 4.6-6.2 HGB 12.7 L 13.5-17.9 HCT 36.0 L 41-54 MCV 95.5 80-100 MCH 33.7 H 27-33 MCHC 35.3 32.0-37.5 PLT 179 150-400 MPV 9.4 7.4-10.4 RDW 13.2 11.5-14.5 July 13, 2022 11:22 AM [facility] COVID-19 AND FLU/RSV DIAG PANEL(CEPHEID) Specimen Typ e: NASOPHARYNGEAL Comment: Cepheid GeneXpert (618) Ordering Provider: WHITNEY ANDERSON Report Released Date/Time: July 13, 2022 11:04 AM Reporting Lab: [facility] [address] Performing Lab: [facility] [address] COVID-19 (CEPHEID) Not Detected Not Detected INFLUENZA A (PCR) Not Detected Not Detected INFLUENZA B (PCR) Not Detected Not Detected RSV (PCR) Not Detected Not Detected July 13, 2022 11:00 AM [facility] PROTHROMBIN TIME/INR Specimen Type: PLASMA No comment entered. Ordering Provider: WHITNEY ANDERSON Report Released Date/Time: July 13, 2022 11:04 AM Reporting Lab: [facility] [address] Performing Lab: [facility] [address] .INR 0.9 0.8-1.1 .PT 11.1 9.4-12.5 July 13, 2022 11:00 AM [facility] C-REACTIVE PROTEIN Specimen Type: SERUM Comment: Automated Differential Performed Ordering Provider: WHITNEY ANDERSON Report Released Date/Time: July 13, 2022 11:04 AM Reporting Lab: [facility] [address] Performing Lab: [facility] [address] C-REACTIVE PROTEIN 1.17 <5.00 July 13, 2022 11:00 AM [facility] SED RATE Specimen Type: BLOOD No comment entered. Ordering Provider: WHITNEY ANDERSON Report Released Date/Time: July 13, 2022 11:04 AM Reporting Lab: [facility] [address] Performing Lab: [facility] [address] SED RATE 10 5-15 July 13, 2022 11:00 AM [facility] CBC & DIFF Specimen Type: BLOOD Comment: Automated Differential Performed Ordering Provider: WHITNEY ANDERSON Report Released Date/Time: July 13, 2022 11:04 AM Reporting Lab: [facility] [address] Performing Lab: [facility] [address] WBC 8.82 4.0-11.0 RBC 3.89 L 4.6-6.2 [...] 0.03 0-0.1 July 13, 2022 11:00 AM [facility] COMPREHENSIVE METABOLIC PANEL+MG Specimen Type: PLASMA Comment: Automated Differential Performed Ordering Provider: WHITNEY ANDERSON Report Released Date/Time: July 13, 2022 11:04 AM Reporting Lab: [facility] [address] Performing Lab: [facility] [address] CREATININE 1.0 0.7-1.2 UREA NITROGEN 16 8-26 [...] Source July 16, 2022 11:50 PM 6 [facility] July 16, 2022 10:58 PM 9 [facility] July 16, 2022 10:54 PM 9 [facility] July 16, 2022 10:49 PM 98.3 F 59 /min 130/75 mm[Hg] 19 /min 96 % 0 [facility] July 16, 2022 07:50 PM 6 [facility] Social History: Smoking Status (Most current) and [...] 10, 2022 09:15 AM VA-TOBACCO FORMER USER [facility] Tobacco Use History This section includes a history of the smoking, or tobacco-related health factors, that were collected on or before the date of the Encounter. The data comes from the [place] facility where the Encounter took place. Date/Time Smoking Status/Tobacco Use Comment F acility May 10, 2022 09:15 AM VA-TOBACCO QUIT 15 YRS OR MORE [facility] May 11, 2021 09:15 AM VA-TOBACCO FORMER USER [facility] May 11, 2021 09:15 AM [place]-TOBACCO QUIT 15 YRS OR MORE [facility] Nov 22, 2018 01:36 PM VA-TOBACCO NEVER USED [facility] Nov 12, 2017 07:35 AM FORMER TOBACCO USER 7Y OR GREATE R [facility] Nov 06, 2016 09:05 AM FORMER TOBACCO USER 7Y OR GREATE R [facility] Sep 27, 2015 09:42 AM FORMER TOBACCO USER 7Y OR GREATE R [facility] Sep 25, 2014 07:55 AM FORMER TOBACCO USER 7Y OR GREATE R [facility] Sep 08, 2013 07:48 AM FORMER TOBACCO USER 7Y OR GREATE R [facility] July 09, 2012 09:20 AM FORMER TOBACCO USE >1Y <7Y [facility] Jun 06, 2011 07:53 AM FORMER TOBACCO USE >1Y <7Y [facility] Sep 09, 2009 03:03 PM FORMER TOBACCO USE >1Y <7Y [facility] Aug 11, 2008 01:06 PM FORMER TOBACCO USE <1Y [facility] Sep 19, 2007 02:52 PM CURRENT TOBACCO USER [facility] Sep 03, 2006 03:32 PM CURRENT TOBACCO USER [facility] Advance Directives: All historical and current [...] 18, 2003 ADVANCE DIRECTIVE FARHAT MELGAR [facility] Radiology Reports: +/- 30 days [...] 07:50 AM CHEST 1 VIEW: MARYJO WAGNER [id number] -1950 M Exm Date: JULY 20, 2022@07:50 Req Phys: MACKENZIE COTTER Pat Loc: 07-20-2022@08:26 Img Loc: MAIN X-RAY Service: PRIMARY CARE - MED OFFICE (Case [id number] COMPLETE) CHEST 1 VIEW (RAD Detailed) CPT:16175 Proc Modifiers : PORTABLE EXAM Reason for Study: see below. thanks. Clinical History: [place] IS NOT under investigation for COVID-19 or is COVID-19 negative Please further evaluate for acute airspace disease given o2 requirement. Thanks. Responsible provider name and phone number to notify for critical findings if other than user placing the order and pager listed below: User placing orders pager: [phone] same LAST CREATININE 0.9 (07/19/22) Report Status: Verified Date Reported: JULY 20, 2022 Date Verified: JULY 20, 2022 Research Rn Spec E-Sig:/ES/JAMIE MIGUEL MD Report: EXAM: CHEST 1 [...] pager listed below: User placing orders pager: [phone] same LAST CREATININE 0. COMPARISON: Chest CT [...] Primary Interpreting Staff: JAMIE MIGUEL MD, RADIOLOGIST (Research Rn Spec) /JAMIE FRANCES [facility] July 18, 2022 12:59 PM ELBOW LEFT 2 VIEWS: MARYJO WAGNER [id number] -1950 M Exm Date: JULY 18, 2022@12:59 Req Phys: LEIF BALBUENA Loc: OR-PACU/07-18-2022@13:59 Img Loc: MAIN X-RAY Service: ZZSURGICAL SERVICE (Case [id number] COMPLETE) ELBOW LEFT 2 VIEWS (RAD Detailed) CPT:49892 Proc Modifiers : PORTABLE EXAM, OPERATING ROOM EXAM Reason for Study: post-op Clinical History: post-op Report Status: Verified Date Reported: JULY 18, 2022 Date Verified: JULY 18, 2022 Research Rn Spec E-Sig:/ES/JAKUB LEE MD Report: EXAM: ELBOW LEFT [...] Primary Interpreting Staff: JAKUB LEE MD, RADIOLOGIST (Research Rn Spec) /[facility] JAKUB LEE [facility] July 18, 2022 07:30 AM FLUORO UP TO 1 HR PHYSICIAN TIME: MARYJO WAGNER [id number] -1950 M Exm Date: JULY 18, 2022@07:30 Req Phys: LEIF BALBUENA Loc: OR-PACU/07-18-2022@13:14 Img Loc: MAIN X-RAY Service: PRIMARY CARE - MED OFFICE (Case [id number] COMPLETE) FLUORO UP TO 1 HR PHYSICIAN TIME (RAD Detailed) CPT:15266 Proc Modifiers : PORTABLE EXAM, OPERATING ROOM EXAM, LEFT Reason for Study: Left distal humerous ORIF Clinical History: OR 7 Pathologic distal humeral shaft fracture Responsible provider name and phone number to notify for critical findings if other than user placing the order and pager listed below: User placing orders pager: Henry BALBUENA [phone] LAST CREATININE 0.8 (07/17/22) Report Status: Electronically Filed Date Reported: JULY 18, 2022 Report: Impression: Please see the full report for this procedure in CPRS patient progress notes. Fluoro guidance was provided during this procedure, but the study was not reviewed or verified by a [facility] radiologist. The radiation exposure dose has been recorded in the patient's chart. If you are unable to view this data, please contact the Imaging Department. VERIFIED BY: / *ELECTRONICALLY FILED* [facility] July 17, 2022 03:28 PM ABDOMINAL AORTOGRAM (P): MARYJO WAGNER [id number] -1950 M Exm Date: JULY 17, 2022@15:28 Req Phys: MALCOM LANGLEY [facility] Loc: 07-17-2022@15:54 Img Loc: INTERVENTIONAL RADIOLOGY Service: PRIMARY CARE - MED OFFICE (Case [id number] COMPLETE) ANGIOGRAPHY EXTREMITY UNILAT S&I (ANI Detailed) CPT:21300 Reason for Study: codes (Case 528 COMPLETE) IR AORTOGRAPHY ABDOMINAL W/O RUNO(ANI Detailed) CPT:18890 (Case 529 COMPLETE) IR FOREIGN BODY REMOVAL INTRAVASC(ANI Detailed) CPT:15824 (Case 532 COMPLETE) IR NEEDLE/INTRACATH PLACEMENT EXT(ANI Detailed) CPT:17652 (Case 533 COMPLETE) IR PLACEMENT OCCLUSIVE DEVICE SAM(ANI Detailed) CPT:G0269 Clinical History: codes Report Status: Verified Date Reported: JULY 17, 2022 Date Verified: JULY 17, 2022 Research Rn Spec E-Sig:/ES/MALCOM LANGLEY MD Report: RADIOLOGIST: Malcom Langley [...] angiogram and runoff. 12. Closure of right SLOT TAG INSERTER with Angio-Seal device. HISTORY: Metastatic renal cell [...] Sheath removed over guidewire and a 5 georgian vascular sheath advanced over guidewire into the artery. An H1 catheter was advanced along with the guidewire into the thoracic arch and the left subclavian artery was selected. Catheter and the guidewire were advanced into the left brachial artery. The 5 Sudanese sheath was exchanged for a 6 Sudanese sheath that was advanced into the left [...] arteries. Sheath and catheters were removed and SLOT TAG INSERTER arteriotomy was closed using Angioseal. There is patent hemostasis. No bleeding or hematoma noted. Sterile dressing applied. 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 Primary Interpreting Staff: MALCOM LANGLEY MD, INTERVENTIONAL RADIOLOGIST (Research Rn Spec) /MALCOM HE [facility] July 17, 2022 07:30 AM RENAL ARTERY EMBOLIZATION (P): MARYJO WAGNER [id number] -1950 M Exm Date: JULY 17, 2022@07:30 Req Phys: WESTON VASQUEZ Pat Loc: 07-17-2022@15:46 Img Loc: INTERVENTIONAL RADIOLOGY Service: PRIMARY CARE - MED OFFICE (Case 130 COMPLETE) IR TRANSCATH EMBOLIZATION W/ANGIO(ANI Detailed) CPT:04689 Reason for Study: embolization of RCC mets to left humerus (Case 131 COMPLETE) IR ARTERIAL EMBOLIZATION OTHER TH(ANI Detailed) CPT:07528 (Case 132 COMPLETE) IR US GUIDANCE VASCULAR ACCESS (ANI Detailed) CPT:74850 Clinical History: [place] IS NOT under investigation for COVID-19 or [...] pager listed below: User placing orders pager: [phone] LAST CREATININE 1.0 (07/13/22) Report Status: Verified Date Reported: JULY 17, 2022 Date Verified: JULY 17, 2022 Research Rn Spec E-Sig:/ES/MALCOM LANGLEY MD Report: RADIOLOGIST: Malcom Langley [...] angiogram and runoff. 12. Closure of right SLOT TAG INSERTER with Angio-Seal device. HISTORY: Metastatic renal cell [...] Sheath removed over guidewire and a 5 georgian vascular sheath advanced over guidewire into the artery. An H1 catheter was advanced along with the guidewire into the thoracic arch and the left subclavian artery was selected. Catheter and the guidewire were advanced into the left brachial artery. The 5 Sudanese sheath was exchanged for a 6 Sudanese sheath that was advanced into the left [...] arteries. Sheath and catheters were removed and SLOT TAG INSERTER arteriotomy was closed using Angioseal. There is patent hemostasis. No bleeding or hematoma noted. Sterile dressing applied. 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 Primary Interpreting Staff: MALCOM LANGLEY MD, INTERVENTIONAL RADIOLOGIST (Research Rn Spec) /MALCOM HE [facility] July 14, 2022 06:44 AM HUMERUS LEFT MINIMUM 2 VIEWS: MARYJO WAGNER [id number] -1950 M Exm Date: JULY 14, 2022@06:44 Req Phys: [facility] Loc: 07-14-2022@07:13 Img Loc: MAIN X-RAY Service: PRIMARY CARE - MED OFFICE (Case [id number] COMPLETE) HUMERUS LEFT MINIMUM 2 VIEWS (RAD Detailed) CPT:83136 Reason for Study: post reduction Clinical History: Report Status: Verified Date Reported: JULY 14, 2022 Date Verified: JULY 14, 2022 Research Rn Spec E-Sig: Report: HUMERUS LEFT MINIMUM 2 VIEWS [...] less likely. READING PHYSICIAN: Xavier Merrill MD -[id number] 07/14/2022 5:11 PDT [facility] National Teleradiology Program [phone] (For Medical Practitioner Use Only) Attention Patients / Veterans: If you have questions or concerns about these test results, please contact your ordering provider or primary care team. Primary Interpreting Staff: RADIOLOGY,OUTSIDE SERVICE, Staff Physician / RADIOLOGY,OUTSIDE SERVICE [facility] July 13, 2022 10:07 AM HUMERUS LEFT MINIMUM 2 VIEWS: MARYJO WAGNER [id number] -1950 M [facility] Date: JULY 13, 2022@10:07 Req Phys: WHITNEY ANDERSON Pat Loc: [facility] EMERGENCY DEPT WALK-IN (Re Img Loc: MAIN X-RAY Service: Unknown (Case [id number] COMPLETE) HUMERUS LEFT MINIMUM 2 VIEWS (RAD Detailed) CPT:13424 Proc Modifiers : LEFT Reason for Study: [...] pager listed below: User placing orders pager: [phone] LAST CREATININE 0.8 (05/10/22) Report Status: Verified Date Reported: JULY 13, 2022 Date Verified: JULY 13, 2022 Research Rn Spec E-Sig:/ES/ALBINA COWAN MD, FACR, CCD Report: EXAMINATION: [...] Staff: ALBINA COWAN MD, FACR, STAFF RADIOLOGIST (Research Rn Spec) /BSF ALBINA COWAN [facility] July 13, 2022 10:07 AM FOREARM LEFT 2 VIEWS: MARYJO WAGNER [id number] -1950 M Exm Date: JULY 13, 2022@10:07 Req Phys: WHITNEY ANDERSON Pat Loc: [facility] EMERGENCY DEPT WALK-IN (Re Img Loc: MAIN X-RAY Service: Unknown (Case [id number] COMPLETE) FOREARM LEFT 2 VIEWS (RAD Detailed) CPT:96690 Proc Modifiers : LEFT Reason for Study: L arm pain Clinical History: [place] IS NOT under investigation for COVID-19 or is COVID-19 negative Atraumatic left upper extremity pain that is located midshaft humerus distally to the mid forearm. Clinical concern for dislocation versus fracture versus bone mets Responsible provider name and phone number to notify for critical findings if other than user placing the order and pager listed below: User placing orders pager: [phone] LAST CREATININE 0.8 (05/10/22) Report Status: Verified Date Reported: JULY 13, 2022 Date Verified: JULY 13, 2022 Research Rn Spec E-Sig:/ES/ALBINA COWAN MD, FACR, CCD Report: EXAMINATION: [...] Staff: ALBINA COWAN MD, FACR, STAFF RADIOLOGIST (Research Rn Spec) /ALBINA NATHAN [facility] July 13, 2022 10:07 AM ELBOW LEFT 3 OR MORE VIEWS: MARYJO WAGNER [id number] -1950 M Ex Date: JULY 13, 2022@10:07 Req Phys: WHITNEY ANDERSON Pat Loc: [facility] EMERGENCY DEPT WALK-IN (Re Img Loc: MAIN X-RAY Service: Unknown (Case [id number] COMPLETE) ELBOW LEFT 3 OR MORE VIEWS (RAD Detailed) CPT:52068 Proc Modifiers : LEFT Reason for Study: [...] pager listed below: User placing orders pager: [phone] LAST CREATININE 0.8 (05/10/22) Report Status: Verified Date Reported: JULY 13, 2022 Date Verified: JULY 13, 2022 Research Rn Spec E-Sig:/ES/ALBINA COWAN MD, FACR, CCD Report: EXAMINATION: [...] Staff: ALBINA COWAN MD, FACR, STAFF RADIOLOGIST (Research Rn Spec) /ALBINA NATHAN [facility] Pathology Reports: +/- 30 days of [...] COSIGNER: URGENCY: STATUS: COMPLETED $APHDR Reporting Lab: [facility] [CLIA# [id number]] [place] [address] - - - - - - - [...] SANDOVAL STAFF PATHOLOGIST, PATHOLOGY & LABORATORY [facility] [place] Signed July 21, 2022@14:37 Performing Laboratory: Surgical Pathology Report Performed By: [facility] [CLIA# [id number]] [place] [address] $FTR - - - - - - [...] - - MARYJO WAGNER STANDARD FORM 515 ID:[id number] SEX:M :1950 AGE: 72 LOC:[facility] PATHOLOGY PRO FEE ADM:June DX:PATHOLOGIC FX LF HUMERUS PCP: Leif Balbuena MD /sangita/ JIAN SANDOVAL STAFF PATHOLOGIST, PATHOLOGY & LABORATORY [facility] [place] Signed: 07/21/2022 14:37 JIAN SANDOVAL [facility] Encounter Notes: All associated encounter notes This section contains the clinical notes associated to the Encounter. Date/Time Encounter Note(s) Provider Source July 16, 2022 01:00 AM CRITICAL CARE UNIT NOTE: LOCAL TITLE: ICCA INPATIENT FLOWSHEET STANDARD TITLE: CRITICAL CARE UNIT NOTE DATE OF NOTE: JULY 16, 2022@01:00 ENTRY DATE: JULY 17, 2022@14:35:45 AUTHOR: JAZ,JOHN-PlanetTranGodfrey EXP COSIGNER: URGENCY: STATUS: COMPLETED This is a place casey only. Please see [employer] to view document. /es/ [employer] SYSTEM ICU DOCUMENT IMPORT Signed: 07/17/2022 14:35 SYSTEM,[employer]-e-SENS [facility] July 16, 2022 01:00 AM CRITICAL CARE UNIT NOTE: LOCAL TITLE: ICCA RESPIRATORY THERAPY FLOWSHEET STANDARD TITLE: CRITICAL CARE UNIT NOTE DATE OF NOTE: JULY 16, 2022@01:00 ENTRY DATE: JULY 17, 2022@15:04:31 AUTHOR: [employer] Technologies EXP COSIGNER: URGENCY: STATUS: COMPLETED This is a place casey only. Please see [employer] to view document. /es/ [employer] SYSTEM ICU DOCUMENT IMPORT Signed: 07/17/2022 15:04 SYSTEM,[employer]-e-SENS [facility]
--- OUTSIDE RECORDS SUMMARY | 2023-03-24 09:02 | XMS_ITS | Encounter Summary ---
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 Address [address] [place] [address] Support Name Relationship Address Phone DOREEN WAGNER Next of Kin [id number] [place] [phone] DOREEN Emergency Contact [phone] [place] [phone] Insurance Providers: All historical and current [...] Policy [place] [employer] MCR (WNR) MEDICARE ADVANTAGE [facility] (WNR) June 26, 2016 [id number] JOAN WAGNER KARSTEN PATIENT HU[employer]NA MCR (WNR) MEDICARE ADVANTAGE MCR (WNR) June 26, 2016 [id number] JOAN WAGNER KARSTEN PATIENT HU[employer] MCR (WNR) MEDICARE ADVANTAGE [facility] (WNR) June 26, 2016 [id number] [phone] JOAN WAGNER PATIENT Selected Encounter This section includes the information on record at [place] for the Encounter. Date/Time Encounter Type Encounter Description Reason Pro vider Source July 17, 2022 12:00 AM Inpatient Visit EVENT (HISTORICAL) IHE Encounter Template Text not used by [place] [...] appointments. The data comes from all [facility]. Appointment Date/Time Appointment Type Appointme nt Facility Name Jul 28, 2022 10:45 AM [facility] Aug 13, 2022 06:13 PM [facility] Aug 23, 2022 09:30 AM AMBULATORY - SURGERY [facility] Aug 23, 2022 09:45 AM AMBULATORY - NONE [facility] Aug 23, 2022 10:30 AM [facility] Aug 23, 2022 10:31 AM AMBULATORY - MEDICINE [facility] Sep 06, 2022 10:15 AM AMBULATORY - SURGERY [facility] Oct 25, 2022 07:00 AM AMBULATORY - NONE [facility] Oct 25, 2022 07:30 AM AMBULATORY - SURGERY [facility] Oct 25, 2022 09:00 AM [...] theEncounter. The data comes from all [facility]. Test Date/Time Test Type Test [...] Blood Bank Order ABO/RH - LAB BLOOD [facility] July 14, 2022 02:05 PM Laboratory - Blood Bank Order TYPE & SCREEN - LAB BLOOD [facility] Aug 07, 2022 11:23 AM Laboratory - Chemistry Order DRUG SCREEN PANEL,URINE URINE [facility] Aug 23, 2022 10:47 AM Laboratory - Chemistry Order URINALYSIS URINE ER STAT [facility] Lab Results: +/- 30 days of [...] July 19, 2022 05:00 PM Reporting Lab: [facility] [id number] Performing Lab: [facility] [address] FINGERSTICK GLUCOSE 132 70-100 July 19, 2022 07:[address] [facility] COMPREHENSIVE METABOLIC PANEL+MG Specimen Type: PLASMA No comment entered. Ordering Provider: MACKENZIE COTTER Report Released Date/Time: July 18, 2022 05:40 PM Reporting Lab: [facility] [address] Performing Lab: [facility] [address] CREATININE 0.9 0.7-1.2 UREA NITROGEN 24 8-26 [...] July 18, 2022 05:40 PM Reporting Lab: [facility] [address] Performing Lab: [facility] [address] IRON 28 L 65-175 TIBC,CALCULATE D 223 L 250-425 FERRITIN 73.7 21.8-274.7 IRON SATURATION 13 L 20-50 TRANSFERRIN 178 163-382 July 19, 2022 07:[address] [facility] CBC Specimen Type: BLOOD No comment entered. Ordering Provider: MACKENZIE COTTER Report Released Date/Time: July 18, 2022 05:40 PM Reporting Lab: [facility] [address] Performing Lab: [facility] [address] WBC 7.73 4.0-11.0 RBC 2.42 L 4.6-6.2 [...] July 19, 2022 11:54 AM Reporting Lab: [facility] [address] Performing Lab: [facility] [address] FINGERSTICK GLUCOSE 137 70-100 July 18, 2022 10:[address] [facility] FINGERSTICK GLUCOSE Specimen Type: BLOOD Comment: Save Result Nurse Notified Ordering Provider: MACKENZIE COTTER Report Released Date/Time: July 18, 2022 11:06 PM Reporting Lab: [facility] [address] Performing Lab: [facility] [address] FINGERSTICK GLUCOSE 163 70-100 July 17, 2022 06:[address] [facility] BASIC METABOLIC PANEL+MG Specimen Type: PLASMA No comment entered. Ordering Provider: DANG VALLE Report Released Date/Time: July 16, 2022 09:37 AM Reporting Lab: [facility] [address] Performing Lab: [facility] [address] CREATININE 0.8 0.7-1.2 UREA NITROGEN 23 8-26 [...] July 16, 2022 09:37 AM Reporting Lab: [facility] [address] Performing Lab: [facility] [address] .INR 1.0 0.8-1.1 .PT 11.5 9.4-12.5 July 17, 2022 06:[address] [facility] CBC Specimen Type: BLOOD No comment entered. Ordering Provider: DANG VALLE R Report Released Date/Time: July 16, 2022 09:37 AM Reporting Lab: [facility] [address] Performing Lab: [facility] [address] WBC 6.05 4.0-11.0 RBC 3.77 L 4.6-6.2 [...] July 13, 2022 11:04 AM Reporting Lab: [facility] [address] Performing Lab: [facility] [address] COVID-19 (CEPHEID) Not Detected Not Detected INFLUENZA A (PCR) Not Detected Not Detected INFLUENZA B (PCR) Not Detected Not Detected RSV (PCR) Not Detected Not Detected July 13, 2022 11:[address] [facility] C-REACTIVE PROTEIN Specimen Type: SERUM Comment: Automated Differential Performed Ordering Provider: WHITNEY ANDERSON Report Released Date/Time: July 13, 2022 11:04 AM Reporting Lab: [facility] [address] Performing Lab: [facility] [address] C-REACTIVE PROTEIN 1.17 <5.00 July 13, 2022 11:[address] [facility] PROTHROMBIN TIME/INR Specimen Type: PLASMA No comment entered. Ordering Provider: WHITNEY ANDERSON Report Released Date/Time: July 13, 2022 11:04 AM Reporting Lab: [facility] [address] Performing Lab: [facility] [address] .INR 0.9 0.8-1.1 .PT 11.1 9.4-12.5 July 13, 2022 11:[address] [facility] SED RATE Specimen Type: BLOOD No comment entered. Ordering Provider: WHITNEY ANDERSON Report Released Date/Time: July 13, 2022 11:04 AM Reporting Lab: [facility] [address] Performing Lab: [facility] [address] SED RATE 10 5-15 July 13, 2022 11:[address] [facility] CBC & DIFF Specimen Type: BLOOD Comment: Automated Differential Performed Ordering Provider: WHITNEY ANDERSON Report Released Date/Time: July 13, 2022 11:04 AM Reporting Lab: [facility] [address] Performing Lab: [facility] [address] WBC 8.82 4.0-11.0 RBC 3.89 L 4.6-6.2 [...] July 13, 2022 11:04 AM Reporting Lab: [facility] [address] Performing Lab: [facility] [address] CREATININE 1.0 0.7-1.2 UREA NITROGEN 16 8-26 [...] Source July 17, 2022 11:20 PM 7 [facility] July 17, 2022 11:18 PM 7 [facility] July 17, 2022 11:11 PM 97.9 F 72 /min 122/77 mm[Hg] 18 /min 95 % 0 [facility] July 17, 2022 10:38 PM 7 [facility] July 17, 2022 08:55 PM 7 [facility] Social History: Smoking Status (Most current) [...] [facility] May 11, 2021 09:15 AM [place]-TOBACCO QUIT [address] [facility] [...] 07:50 AM CHEST 1 VIEW: MARYJO WAGNER [id number] -1950 M Exm Date: JULY 20, 2022@07:50 Req Phys: VAHEMACKENZIE Darwin Pat Loc: 07-20-2022@08:26 Img Loc: MAIN X-RAY Service: PRIMARY CARE - MED OFFICE (Case [id number] COMPLETE) CHEST 1 VIEW (RAD Detailed) CPT:58575 Proc Modifiers : PORTABLE EXAM Reason for Study: see below. thanks. Clinical History: IS NOT under investigation for COVID-19 or is COVID-19 negative Please further evaluate for acute airspace disease given o2 requirement. Thanks. Responsible provider name and phone number to notify for critical findings if other than user placing the order and pager listed below: User placing orders pager: [phone] same LAST CREATININE 0.9 (07/19/22) Report Status: Verified Date Reported: JULY 20, 2022 Date Verified: JULY 20, 2022 Land Acquisition Specialist E-Sig:/ES/JAMIE MIGUEL MD Report: EXAM: CHEST 1 VIEW HISTORY: see below. thanks. Reason for Study: see below. thanks. [place] IS NOT under investigation for COVID-19 or is COVID-19 negative Please further evaluate for acute airspace disease given o2 requirement. Thanks. Responsible provider name and phone number to notify for critical findings if other than user placing the order and pager listed below: User placing orders pager: [phone] same LAST CREATININE 0. COMPARISON: Chest CT [...] Primary Interpreting Staff: JAMIE MIGUEL MD, RADIOLOGIST (Land Acquisition Specialist) /JAMIE [facility] July 18, 2022 12:59 PM ELBOW LEFT 2 VIEWS: MARYJO WAGNER [id number] -1950 M Exm Date: JULY 18, 2022@12:59 Req Phys: LEIF BALBUENA Pat Loc: OR-PACU/07-18-2022@13:59 Img Loc: MAIN X-RAY Service: ZZSURGICAL SERVICE (Case [id number] COMPLETE) ELBOW LEFT 2 VIEWS (RAD Detailed) CPT:94509 Proc Modifiers : PORTABLE EXAM, OPERATING ROOM EXAM Reason for Study: post-op Clinical History: post-op Report Status: Verified Date Reported: JULY 18, 2022 Date Verified: JULY 18, 2022 Land Acquisition Specialist E-Sig:/ES/JAKUB LEE MD Report: EXAM: ELBOW [...] Primary Interpreting Staff: JAKUB LEE MD, RADIOLOGIST (Land Acquisition Specialist) /[facility] JAKUB LEE [facility] July 18, 2022 07:30 AM FLUORO UP TO 1 HR PHYSICIAN TIME: MARYJO WAGNER [id number] -1950 M Exm Date: JULY 18, 2022@07:30 Req Phys: LEIF BALBUENA Pat Loc: OR-PACU/07-18-2022@13:14 Img Loc: MAIN X-RAY Service: PRIMARY CARE - MED OFFICE (Case [id number] COMPLETE) FLUORO UP TO 1 HR PHYSICIAN TIME (RAD Detailed) CPT:33121 Proc Modifiers : PORTABLE EXAM, OPERATING ROOM EXAM, LEFT Reason for Study: Left distal humerous ORIF Clinical History: OR 7 Pathologic distal humeral shaft fracture Responsible provider name and phone number to notify for critical findings if other than user placing the order and pager listed below: User placing orders pager: Henry ABLBUENA [phone] LAST CREATININE 0.8 (07/17/22) Report Status: Electronically Filed Date Reported: JULY 18, 2022 Report: Impression: Please see the full report for this procedure in CPRS patient progress notes. Fluoro guidance was provided during this procedure, but the study was not reviewed or verified by a [facility] radiologist. The radiation exposure dose has been recorded in the patient's chart. If you are unable to view this data, please contact the Imaging Department. VERIFIED BY: / *ELECTRONICALLY FILED* [facility] July 17, 2022 03:28 PM ABDOMINAL AORTOGRAM (P): MARYJO WAGNER [id number] -1950 M Exm Date: JULY 17, 2022@15:28 Req Phys: MALCOM LANGLEY Loc: 07-17-2022@15:54 Img Loc: INTERVENTIONAL RADIOLOGY Service: PRIMARY CARE - MED OFFICE (Case [id number] COMPLETE) ANGIOGRAPHY EXTREMITY UNILAT S&I (ANI Detailed) CPT:75158 Reason for Study: codes (Case 528 COMPLETE) IR AORTOGRAPHY ABDOMINAL W/O RUNO(ANI Detailed) CPT:39230 (Case 529 COMPLETE) IR FOREIGN BODY REMOVAL INTRAVASC(ANI Detailed) CPT:09266 (Case 532 COMPLETE) IR NEEDLE/INTRACATH PLACEMENT EXT(ANI Detailed) CPT:79147 (Case 533 COMPLETE) IR PLACEMENT OCCLUSIVE DEVICE SAM(ANI Detailed) CPT:G0269 Clinical History: codes Report Status: Verified Date Reported: JULY 17, 2022 Date Verified: JULY 17, 2022 Land Acquisition Specialist E-Sig:/ES/MALCOM LANGLEY MD Report: RADIOLOGIST: Malcom [...] angiogram and runoff. 12. Closure of right FUR GLOSSER with Angio-Seal device. HISTORY: Metastatic renal cell [...] Sheath removed over guidewire and a 5 gabonese vascular sheath advanced over guidewire into the artery. An H1 catheter was advanced along with the guidewire into the thoracic arch and the left subclavian artery was selected. Catheter and the guidewire were advanced into the left brachial artery. The 5 Jamaican sheath was exchanged for a 6 Jamaican sheath that was advanced into the left [...] arteries. Sheath and catheters were removed and FUR GLOSSER arteriotomy was closed using Angioseal. There is patent hemostasis. No bleeding or hematoma noted. Sterile dressing applied. 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 Primary Interpreting Staff: MALCOM LANGLEY MD, INTERVENTIONAL RADIOLOGIST (Land Acquisition Specialist) /[facility]ALCOM [facility] July 17, 2022 07:30 AM RENAL ARTERY EMBOLIZATION (P): MARYJO WAGNER [id number] -1950 M Exm Date: JULY 17, 2022@07:30 Req Phys: WESTON VASQUEZ Pat Loc: 07-17-2022@15:46 Img Loc: INTERVENTIONAL RADIOLOGY Service: PRIMARY CARE - MED OFFICE (Case 130 COMPLETE) IR TRANSCATH EMBOLIZATION W/ANGIO(ANI Detailed) CPT:46798 Reason for Study: embolization of RCC mets to left humerus (Case 131 COMPLETE) IR ARTERIAL EMBOLIZATION OTHER TH(ANI Detailed) CPT:13368 (Case 132 COMPLETE) IR US GUIDANCE VASCULAR ACCESS (ANI Detailed) CPT:67046 Clinical History: IS NOT under investigation for [...] pager listed below: User placing orders pager: [phone] LAST CREATININE 1.0 (07/13/22) Report Status: Verified Date Reported: JULY 17, 2022 Date Verified: JULY 17, 2022 Land Acquisition Specialist E-Sig:/ES/MALCOM LANGLEY MD Report: RADIOLOGIST: Malcom [...] angiogram and runoff. 12. Closure of right FUR GLOSSER with Angio-Seal device. HISTORY: Metastatic renal cell [...] Sheath removed over guidewire and a 5 gabonese vascular sheath advanced over guidewire into the artery. An H1 catheter was advanced along with the guidewire into the thoracic arch and the left subclavian artery was selected. Catheter and the guidewire were advanced into the left brachial artery. The 5 Jamaican sheath was exchanged for a 6 Jamaican sheath that was advanced into the left [...] arteries. Sheath and catheters were removed and FUR GLOSSER arteriotomy was closed using Angioseal. There is patent hemostasis. No bleeding or hematoma noted. Sterile dressing applied. 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 Primary Interpreting Staff: MALCOM LANGLEY MD, INTERVENTIONAL RADIOLOGIST (Land Acquisition Specialist) /[facility] July 14, 2022 06:44 AM HUMERUS LEFT MINIMUM 2 VIEWS: BERNARDMARYJO DIRK [id number] -1950 M Ex Date: JULY 14, 2022@06:44 Req Phys: PEDROHERBERTJAIRO Chinchilla Loc: 07-14-2022@07:13 Img Loc: MAIN X-RAY Service: PRIMARY CARE - MED OFFICE (Case [id number] COMPLETE) HUMERUS LEFT MINIMUM 2 VIEWS (RAD Detailed) CPT:03640 Reason for Study: post reduction Clinical History: Report Status: Verified Date Reported: JULY 14, 2022 Date Verified: JULY 14, 2022 Land Acquisition Specialist E-Sig: Report: HUMERUS LEFT MINIMUM 2 VIEWS HISTORY: post reduction COMPARISON: 07/13/2022 TECHNIQUE: 2 view(s) of the humerus, submitted to the [place] National Teleradiology Program (NTP) for interpretation. FINDINGS: [...] less likely. READING PHYSICIAN: Xavier Merrill MD -[id number] 07/14/2022 5:11 PDT [facility] National Teleradiology Program [phone] (For Medical Practitioner Use Only) Attention Patients / Veterans: If you have questions or concerns about these test results, please contact your ordering provider or primary care team. Primary Interpreting Staff: RADIOLOGY,OUTSIDE SERVICE, Staff Physician / RADIOLOGY,OUTSIDE SERVICE [facility] July 13, 2022 10:07 AM HUMERUS LEFT MINIMUM 2 VIEWS: MARYJO WAGNER [id number] -1950 M Ex Date: JULY 13, 2022@10:07 Req Phys: WHITNEY ANDERSON Pat Loc: [facility] EMERGENCY DEPT WALK-IN (Re Img Loc: MAIN X-RAY Service: Unknown (Case [id number] COMPLETE) HUMERUS LEFT MINIMUM 2 VIEWS (RAD Detailed) CPT:69809 Proc Modifiers : LEFT Reason for Study: L arm pain Clinical History: [place] IS NOT under investigation for COVID-19 or is COVID-19 negative Atraumatic left upper extremity pain that is located midshaft humerus distally to the mid forearm. Clinical concern for dislocation versus fracture versus bone mets Responsible provider name and phone number to notify for critical findings if other than user placing the order and pager listed below: User placing orders pager: [phone] LAST CREATININE 0.8 (05/10/22) Report Status: Verified Date Reported: JULY 13, 2022 Date Verified: JULY 13, 2022 Land Acquisition Specialist E-Sig:/ES/ALBINA COWAN MD, FACR, CCD Report: [...] Staff: ALBINA COWAN MD, FACR, STAFF RADIOLOGIST (Land Acquisition Specialist) /[facility] ALBINA COWAN [facility] July 13, 2022 10:07 AM ELBOW LEFT 3 OR MORE VIEWS: MARYJO WAGNER [id number] -1950 M Exm Date: JULY 13, 2022@10:07 Req Phys: WHITNEY ANDERSON Pat Loc: [facility] EMERGENCY DEPT WALK-IN (Re Img Loc: MAIN X-RAY Service: Unknown (Case [id number] COMPLETE) ELBOW LEFT 3 OR MORE VIEWS (RAD Detailed) CPT:70076 Proc Modifiers : LEFT Reason for Study: L arm pain Clinical History: [place] IS NOT under investigation for COVID-19 or is COVID-19 negative Atraumatic left upper extremity pain that is located midshaft humerus distally to the mid forearm. Clinical concern for dislocation versus fracture versus bone mets Responsible provider name and phone number to notify for critical findings if other than user placing the order and pager listed below: User placing orders pager: [phone] LAST CREATININE 0.8 (05/10/22) Report Status: Verified Date Reported: JULY 13, 2022 Date Verified: JULY 13, 2022 Land Acquisition Specialist E-Sig:/SANGITA/ALBINA COWAN MD, FACR, CCD Report: [...] Staff: ALBINA COWAN MD, FACR, STAFF RADIOLOGIST (Land Acquisition Specialist) /ALBINA NATHAN [facility] July 13, 2022 10:07 AM FOREARM LEFT 2 VIEWS: MARYJO WAGNER [id number] -1950 M Exm Date: JULY 13, 2022@10:07 Req Phys: WHITNEY ANDERSON Pat Loc: [facility] EMERGENCY DEPT WALK-IN (Re Img Loc: MAIN X-RAY Service: Unknown (Case [id number] COMPLETE) FOREARM LEFT 2 VIEWS (RAD Detailed) CPT:57170 Proc Modifiers : LEFT Reason for Study: L arm pain Clinical History: [place] IS NOT under investigation for COVID-19 or is COVID-19 negative Atraumatic left upper extremity pain that is located midshaft humerus distally to the mid forearm. Clinical concern for dislocation versus fracture versus bone mets Responsible provider name and phone number to notify for critical findings if other than user placing the order and pager listed below: User placing orders pager: [phone] LAST CREATININE 0.8 (05/10/22) Report Status: Verified Date Reported: JULY 13, 2022 Date Verified: JULY 13, 2022 Land Acquisition Specialist E-Sig:/ES/ALBINA COWAN MD, FACR, CCD Report: [...] Staff: ALBINA COWAN MD, FACR, STAFF RADIOLOGIST (Land Acquisition Specialist) /ALBINA [facility] Pathology [...] comes from all [place] treatment facilities. Date/Time Pathology Report Provider Source July 13, 2022 04:06 PM LR SURGICAL PATHOL OGY REPORT: LOCAL TITLE: LR SURGICAL PATHOLOGY REPORT STANDARD TITLE: PATHOLOGY REPORT DATE OF NOTE: JULY 21, 2022@14:37:27 ENTRY DATE: JULY 21, 2022@14:37:27 AUTHOR: JIAN SANDOVAL EXP COSIGNER: URGENCY: STATUS: COMPLETED $APHDR Reporting Lab: [facility] [CLIA# [id number]] [place] [address] - - - - - - - [...] entirely submitted in A-D. CE. (D). [facility] FROZEN SECTION DIAGNOSES: SPEC. 1 [...] SANDOVAL STAFF PATHOLOGIST, PATHOLOGY & LABORATORY MED [facility] Signed July 21, 2022@14:37 Performing Laboratory: Surgical Pathology Report Performed By: [facility] [CLIA# [id number]] [place] [address] $FTR - - - - - - [...] - - MARYJO WAGNER STANDARD FORM 515 ID:[id number] SEX:M :1950 AGE: 72 LOC:[facility] PATHOLOGY PRO FEE ADM:June DX:PATHOLOGIC FX LF HUMERUS PCP: Leif Balbuena MD /sangita/ JIAN SANDOVAL STAFF PATHOLOGIST, PATHOLOGY & LABORATORY MED C Signed: 07/21/2022 14:[address] [facility]
--- OUTSIDE RECORDS SUMMARY | 2023-03-24 09:03 | XMS_ITS ---
NON-OR ANESTHESIA PROCEDURES 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 of Vetera [facility] Address [address] [place] [address] Support Name Relationship Address Phone DOREEN WAGNER Next of Kin [address] [place] [phone] DOREEN Emergency Contact [address] [place] [address] Insurance Providers: All historical and current [...] Name Patient's Relationship to Policy [place] [employer] [facility] (R) MEDICARE ADVANTAGE MCR ([facility]) June 26, 2016 [id number] JOAN WAGNER KARSTEN PATIENT [employer] MCR (WNR) MEDICARE ADVANTAGE MCR ([facility]) June 26, 2016 [id number] JOAN WAGNER KARSTEN PATIENT [employer] MCR (WNR) MEDICARE ADVANTAGE [facility] ([facility]) June 26, 2016 [id number] [phone] JOAN WAGNER PATIENT Selected Encounter This section includes the information on record at [place] for the Encounter. 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 This section includes future appointments and future orders which are active, pending or scheduled. Future Appointments This section includes appointments that were scheduled to occur 6 months from the date of the Encounter, up to a maximum of 20 appointments. The data comes from all [facility]. Appointment Date/Time Appointment Type Appointme nt Facility Name Jul 28, 2022 10:45 AM AMBULATORY - [facility]IC[facility] Aug 13, 2022 06:13 PM [facility] Aug 23, 2022 09:30 AM [facility] SURGERY [facility] Aug 23, 2022 09:45 AM AMBULATORY - NONE [facility] Aug 23, 2022 10:30 AM [facility] Aug 23, 2022 10:31 AM [facility] Sep 06, 2022 10:15 AM AMBULATORY - SURGERY [facility] Oct 25, 2022 07:00 AM [facility] Oct 25, 2022 07:30 AM AMBULATORY - SURGERY [facility] Oct 25, 2022 09:00 AM AMBULATORY SURGERY [facility] Active, Pending, and Scheduled Orders This section includes a listing of several types of active, pending, and scheduled orders, including clinic medications orders, diagnostic test orders, procedure orders and consult orders; where the start date of the order is 45 days before the date of the Encounter or 45 days after the date of theEncounter. The data comes from all [facility]. Test Date/Time Test Type Test Details [...] Blood Bank Order ABO/RH - LAB BLOOD [facility] July 14, 2022 02:05 PM Laboratory - Blood Bank Order TYPE & SCREEN - LAB BLOOD [facility] Aug 07, 2022 11:23 AM Laboratory - Chemistry Order DRUG SCREEN PANEL,URINE URINE [facility] Aug 23, 2022 10:47 AM Laboratory - Chemistry Order URINALYSIS URINE ER STAT [facility] Lab Results: +/- 30 days [...] 2022 05:00 PM Reporting Lab: [facility] [address] Performing Lab: [facility] [address] FINGERSTICK GLUCOSE 132 70-100 July 19, 2022 07:13 AM [facility] COMPREHENSIVE METABOLIC PANEL+MG Specimen Type: PLASMA No comment entered. Ordering Provider: MACKENZIE COTTER Report Released Date/Time: July 18, 2022 05:40 PM Reporting Lab: [facility] [address] Performing Lab: [facility] [address] CREATININE 0.9 0.7-1.2 UREA NITROGEN 24 8-26 [...] 2022 05:40 PM Reporting Lab: [facility] [address] Performing Lab: [facility] [address] IRON 28 L 65-175 TIBC,CALCULATE D 223 L 250-425 FERRITIN 73.7 21.8-274.7 IRON SATURATION 13 L 20-50 TRANSFERRIN 178 163-382 July 19, 2022 07:13 AM [facility] CBC Specimen Type: BLOOD No comment entered. Ordering Provider: MACKENZIE COTTER Report Released Date/Time: July 18, 2022 05:40 PM Reporting Lab: [facility] [address] Performing Lab: [facility] [address] WBC 7.73 4.0-11.0 RBC 2.42 L 4.6-6.2 [...] 2022 11:54 AM Reporting Lab: [facility] [address] Performing Lab: [facility] [address] FINGERSTICK GLUCOSE 137 70-100 July 18, 2022 10:51 PM [facility] FINGERSTICK GLUCOSE Specimen Type: BLOOD Comment: Save Result Nurse Notified Ordering Provider: MACKENZIE COTTER Report Released Date/Time: July 18, 2022 11:06 PM Reporting Lab: [facility] [address] Performing Lab: [facility] [address] FINGERSTICK GLUCOSE 163 70-100 July 17, 2022 06:51 AM [facility] BASIC METABOLIC PANEL+MG Specimen Type: PLASMA No comment entered. Ordering Provider: DANG VALLE R Report Released Date/Time: July 16, 2022 09:37 AM Reporting Lab: [facility] [address] Performing Lab: [facility] [address] CREATININE 0.8 0.7-1.2 UREA NITROGEN 23 8-26 [...] 2022 09:37 AM Reporting Lab: [facility] [address] Performing Lab: [facility] [address] .INR 1.0 0.8-1.1 .PT 11.5 9.4-12.5 July 17, 2022 06:51 AM [facility] CBC Specimen Type: BLOOD No comment entered. Ordering Provider: DANG VALLE R Report Released Date/Time: July 16, 2022 09:37 AM Reporting Lab: [facility] [address] Performing Lab: [facility] [address] WBC 6.05 4.0-11.0 RBC 3.77 L 4.6-6.2 [...] 2022 11:04 AM Reporting Lab: [facility] [address] Performing Lab: [facility] [address] COVID-19 (CEPHEID) Not Detected Not Detected INFLUENZA A (PCR) Not Detected Not Detected INFLUENZA B (PCR) Not Detected Not Detected RSV (PCR) Not Detected Not Detected July 13, 2022 11:00 AM [facility] C-REACTIVE PROTEIN Specimen Type: SERUM Comment: Automated Differential Performed Ordering Provider: WHITNEY ANDERSON Report Released Date/Time: July 13, 2022 11:04 AM Reporting Lab: [facility] [address] Performing Lab: [facility] [address] C-REACTIVE PROTEIN 1.17 <5.00 July 13, 2022 11:00 AM [facility] PROTHROMBIN TIME/INR Specimen Type: PLASMA No comment entered. Ordering Provider: WHITNEY ANDERSON Report Released Date/Time: July 13, 2022 11:04 AM Reporting Lab: [facility] [address] Performing Lab: [facility] [address] .INR 0.9 0.8-1.1 .PT 11.1 9.4-12.5 July 13, 2022 11:00 AM [facility] SED RATE Specimen Type: BLOOD No comment entered. Ordering Provider: WHITNEY ANDERSON Report Released Date/Time: July 13, 2022 11:04 AM Reporting Lab: [facility] [address] Performing Lab: [facility] [address] SED RATE 10 5-15 July 13, 2022 11:00 AM [facility] CBC & DIFF Specimen Type: BLOOD Comment: Automated Differential Performed Ordering Provider: WHITNEY ANDERSON Report Released Date/Time: July 13, 2022 11:04 AM Reporting Lab: [facility] [address] Performing Lab: [facility] [address] WBC 8.82 4.0-11.0 RBC 3.89 L 4.6-6.2 [...] 2022 11:04 AM Reporting Lab: [facility] [address] Performing Lab: [facility] [address] CREATININE 1.0 0.7-1.2 UREA NITROGEN 16 8-26 [...] Source July 17, 2022 11:20 PM 7 [facility] July 17, 2022 11:18 PM 7 [facility] July 17, 2022 11:11 PM 97.9 F 72 /min 122/77 mm[Hg] 18 /min 95 % 0 [facility] July 17, 2022 10:38 PM 7 [facility] July 17, 2022 08:55 PM 7 [facility] Social History: Smoking Status (Most current) and [...] Source Mar 18, 2003 ADVANCE DIRECTIVE MELGARFARHATMITCH [facility] Radiology Reports: +/- 30 days of the [...] 07:50 AM CHEST 1 VIEW: MARYJO WAGNER [id number] -1950 M Exm Date: JULY 20, 2022@07:50 Req Phys: MACKENZIE COTTER Pat Loc: 07-20-2022@08:26 Img Loc: MAIN X-RAY Service: PRIMARY CARE - MED OFFICE (Case [id number] COMPLETE) CHEST 1 VIEW (RAD Detailed) CPT:33815 Proc Modifiers : PORTABLE EXAM Reason for Study: see below. thanks. Clinical History: [place] IS NOT under investigation for COVID-19 or is COVID-19 negative Please further evaluate for acute airspace disease given o2 requirement. Thanks. Responsible provider name and phone number to notify for critical findings if other than user placing the order and pager listed below: User placing orders pager: [phone] same LAST CREATININE 0.9 (07/19/22) Report Status: Verified Date Reported: JULY 20, 2022 Date Verified: JULY 20, 2022 Anesthesia Director E-Sig:/ES/JAMIE MIGUEL MD Report: EXAM: CHEST [...] pager listed below: User placing orders pager: [phone] same LAST CREATININE 0. COMPARISON: Chest CT [...] Primary Interpreting Staff: JAMIE MIGUEL MD, RADIOLOGIST (Anesthesia Director) /JAMIE FRANCES [facility] July 18, 2022 12:59 PM ELBOW LEFT 2 VIEWS: MARYJO WAGNER [id number] -1950 M Exm Date: JULY 18, 2022@12:59 Req Phys: LEIF BALBUENA Loc: OR-PACU/07-18-2022@13:59 Img Loc: MAIN X-RAY Service: ZZSURGICAL SERVICE (Case [id number] COMPLETE) ELBOW LEFT 2 VIEWS (RAD Detailed) CPT:26276 Proc Modifiers : PORTABLE EXAM, OPERATING ROOM EXAM Reason for Study: post-op Clinical History: post-op Report Status: Verified Date Reported: JULY 18, 2022 Date Verified: JULY 18, 2022 Anesthesia Director E-Sig:/ES/JAKUB LEE MD Report: EXAM: ELBOW [...] Primary Interpreting Staff: JAKUB LEE MD, RADIOLOGIST (Anesthesia Director) /JAKUB LUCERO [facility] July 18, 2022 07:30 AM FLUORO UP TO 1 HR PHYSICIAN TIME: MARYJO WAGNER [id number] -1950 M Exm Date: JULY 18, 2022@07:30 Req Phys: LEIF BALBUENA Loc: OR-PACU/07-18-2022@13:14 Im Loc: MAIN X-RAY Service: PRIMARY CARE - MED OFFICE (Case [id number] COMPLETE) FLUORO UP TO 1 HR PHYSICIAN TIME (RAD Detailed) CPT:94411 Proc Modifiers : PORTABLE EXAM, OPERATING ROOM EXAM, LEFT Reason for Study: Left distal humerous ORIF Clinical History: OR 7 Pathologic distal humeral shaft fracture Responsible provider name and phone number to notify for critical findings if other than user placing the order and pager listed below: User placing orders pager: Henry BALBUENA [phone] LAST CREATININE 0.8 (07/17/22) Report Status: Electronically Filed Date Reported: JULY 18, 2022 Report: Impression: Please see the full report for this procedure in [facility] patient progress notes. Fluoro guidance was provided during this procedure, but the study was not reviewed or verified by a [facility] radiologist. The radiation exposure dose has been recorded in the patient's chart. If you are unable to view this data, please contact the Imaging Department. VERIFIED BY: / *ELECTRONICALLY FILED* [facility] July 17, 2022 03:28 PM ABDOMINAL AORTOGRAM (P): MARYJO WAGNER DIRK [id number] -1950 M Exm Date: JULY 17, 2022@15:28 Req Phys: MALCOM LANGLEY Loc: 07-17-2022@15:54 Img Loc: INTERVENTIONAL RADIOLOGY Service: PRIMARY CARE - MED OFFICE (Case [id number] COMPLETE) ANGIOGRAPHY EXTREMITY UNILAT S&I (ANI Detailed) CPT:75252 Reason for Study: codes (Case 528 COMPLETE) IR AORTOGRAPHY ABDOMINAL W/O RUNO(ANI Detailed) CPT:39372 (Case 529 COMPLETE) IR FOREIGN BODY REMOVAL INTRAVASC(ANI Detailed) CPT:23500 (Case 532 COMPLETE) IR NEEDLE/INTRACATH PLACEMENT EXT(ANI Detailed) CPT:04259 (Case 533 COMPLETE) IR PLACEMENT OCCLUSIVE DEVICE SAM(ANI Detailed) CPT:G0269 Clinical History: codes Report Status: Verified Date Reported: JULY 17, 2022 Date Verified: JULY 17, 2022 Anesthesia Director E-Sig:/ES/MALCOM LANGLEY MD Report: RADIOLOGIST: Malcom [...] angiogram and runoff. 12. 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 HISTORY: Metastatic renal cell [...] Sheath removed over guidewire and a 5 sri lankan vascular sheath advanced over guidewire into the artery. An H1 catheter was advanced along with the guidewire into the thoracic arch and the left subclavian artery was selected. Catheter and the guidewire were advanced into the left brachial artery. The 5 Eritrean sheath was exchanged for a 6 Eritrean sheath that was advanced into the left [...] arteries. Sheath and catheters were removed and PRINTED CIRCUIT BOARD REWORKER arteriotomy was closed using Angioseal. There is patent hemostasis. No bleeding or hematoma noted. Sterile dressing applied. 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 Primary Interpreting Staff: MALCOM LANGLEY MD, INTERVENTIONAL RADIOLOGIST (Anesthesia Director) /MALCOM HE [facility] July 17, 2022 07:30 AM RENAL ARTERY EMBOLIZATION (P): MARYJO WAGNER [id number] -1950 M Exm Date: JULY 17, 2022@07:30 Req Phys: WESTON VASQUEZ [facility] Loc: 07-17-2022@15:46 Img Loc: INTERVENTIONAL RADIOLOGY Service: PRIMARY CARE - MED OFFICE (Case 130 COMPLETE) IR TRANSCATH EMBOLIZATION W/ANGIO(ANI Detailed) CPT:28339 Reason for Study: embolization of RCC mets to left humerus (Case 131 COMPLETE) IR ARTERIAL EMBOLIZATION OTHER TH(ANI Detailed) CPT:88095 (Case 132 COMPLETE) IR US GUIDANCE VASCULAR ACCESS (ANI Detailed) CPT:96816 Clinical History: [place] IS NOT under investigation for COVID-19 or [...] pager listed below: User placing orders pager: [phone] LAST CREATININE 1.0 (07/13/22) Report Status: Verified Date Reported: JULY 17, 2022 Date Verified: JULY 17, 2022 Anesthesia Director E-Sig:/ES/MALCOM LANGLEY MD Report: RADIOLOGIST: Malcom [...] angiogram and runoff. 12. 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 HISTORY: Metastatic renal cell [...] Sheath removed over guidewire and a 5 sri lankan vascular sheath advanced over guidewire into the artery. An H1 catheter was advanced along with the guidewire into the thoracic arch and the left subclavian artery was selected. Catheter and the guidewire were advanced into the left brachial artery. The 5 Eritrean sheath was exchanged for a 6 Eritrean sheath that was advanced into the left [...] arteries. Sheath and catheters were removed and PRINTED CIRCUIT BOARD REWORKER arteriotomy was closed using Angioseal. There is patent hemostasis. No bleeding or hematoma noted. Sterile dressing applied. 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 Primary Interpreting Staff: MALCOM LANGLEY MD, INTERVENTIONAL RADIOLOGIST (Anesthesia Director) /MALCOM HE [facility] July 14, 2022 06:44 AM HUMERUS LEFT MINIMUM 2 VIEWS: MARYJO WAGNER [id number] -1950 M Exm Date: JULY 14, 2022@06:44 Req Phys: PEDROHERBERTJAIRO Pat Loc: 07-14-2022@07:13 Img Loc: MAIN X-RAY Service: PRIMARY CARE - MED OFFICE (Case [id number] COMPLETE) HUMERUS LEFT MINIMUM 2 VIEWS (RAD Detailed) CPT:07812 Reason for Study: post reduction Clinical History: Report Status: Verified Date Reported: JULY 14, 2022 Date Verified: JULY 14, 2022 Anesthesia Director E-Sig: Report: HUMERUS LEFT MINIMUM 2 VIEWS HISTORY: post reduction COMPARISON: 07/13/2022 TECHNIQUE: 2 view(s) of the humerus, submitted to the [place] National Teleradiology Program (NTP) for interpretation. FINDINGS: [...] less likely. READING PHYSICIAN: Xavier Merrill MD -[id number] 07/14/2022 5:11 [facility] National Teleradiology Program [phone] (For Medical Practitioner Use Only) Attention Patients / Veterans: If you have questions or concerns about these test results, please contact your ordering provider or primary care team. Primary Interpreting Staff: RADIOLOGY,OUTSIDE SERVICE, Staff Physician / RADIOLOGY,OUTSIDE SERVICE [facility] July 13, 2022 10:07 AM HUMERUS LEFT MINIMUM 2 VIEWS: MARYJO WAGNER [id number] -1950 M Exm Date: JULY 13, 2022@10:07 Req Phys: WHITNEY ANDERSON Loc: [facility] EMERGENCY DEPT WALK-IN (Re Img Loc: MAIN X-RAY Service: Unknown (Case [id number] COMPLETE) HUMERUS LEFT MINIMUM 2 VIEWS (RAD Detailed) CPT:86213 Proc Modifiers : LEFT Reason for Study: L arm pain Clinical History: [place] IS NOT under investigation for COVID-19 or is COVID-19 negative Atraumatic left upper extremity pain that is located midshaft humerus distally to the mid forearm. Clinical concern for dislocation versus fracture versus bone mets Responsible provider name and phone number to notify for critical findings if other than user placing the order and pager listed below: User placing orders pager: [phone] LAST CREATININE 0.8 (05/10/22) Report Status: Verified Date Reported: JULY 13, 2022 Date Verified: JULY 13, 2022 Anesthesia Director E-Sig:/ES/ALBINA COWAN MD, FACR, CCD Report: EXAMINATION: [...] Staff: ALBINA COWAN MD, FACR, STAFF RADIOLOGIST (Anesthesia Director) /BSF ALBINA COWAN [facility] July 13, 2022 10:07 AM FOREARM LEFT 2 VIEWS: MARYJO WAGNER [id number] -1950 M Exm Date: JULY 13, 2022@10:07 Req Phys: WHITNEY ANDERSON Pat Loc: [facility] EMERGENCY DEPT WALK-IN ([facility] Loc: MAIN X-RAY Service: Unknown (Case [id number] COMPLETE) FOREARM LEFT 2 VIEWS (RAD Detailed) CPT:26676 Proc Modifiers : LEFT Reason for Study: L arm pain Clinical History: [place] IS NOT under investigation for COVID-19 or is COVID-19 negative Atraumatic left upper extremity pain that is located midshaft humerus distally to the mid forearm. Clinical concern for dislocation versus fracture versus bone mets Responsible provider name and phone number to notify for critical findings if other than user placing the order and pager listed below: User placing orders pager: [phone] LAST CREATININE 0.8 (05/10/22) Report Status: Verified Date Reported: JULY 13, 2022 Date Verified: JULY 13, 2022 Anesthesia Director E-Sig:/ES/ALBINA COWAN MD, FACR, CCD Report: EXAMINATION: [...] Staff: ALBINA COWAN MD, FACR, STAFF RADIOLOGIST (Anesthesia Director) /BSF ALBINA COWAN [facility] July 13, 2022 10:07 AM ELBOW LEFT 3 OR MORE VIEWS: MARYJO WAGNER [id number] -1950 M Exm Date: JULY 13, 2022@10:07 Req Phys: WHITNEY ANDERSON Pat Loc: [facility] EMERGENCY DEPT WALK-IN (Re Img Loc: MAIN X-RAY Service: Unknown (Case [id number] COMPLETE) ELBOW LEFT 3 OR MORE VIEWS (RAD Detailed) CPT:21833 Proc Modifiers : LEFT Reason for Study: [...] pager listed below: User placing orders pager: [phone] LAST CREATININE 0.8 (05/10/22) Report Status: Verified Date Reported: JULY 13, 2022 Date Verified: JULY 13, 2022 Anesthesia Director E-Sig:/ES/ALBINA COWAN MD, FACR, CCD Report: EXAMINATION: [...] Staff: ALBINA COWAN MD, FACR, STAFF RADIOLOGIST (Anesthesia Director) /BSF ALBINA COWAN [facility] Pathology Reports: +/- 30 days [...] comes from all [place] treatment facilities. Date/Time Pathology Report Provider Source July 13, 2022 04:06 PM LR SURGICAL PATHOL OGY REPORT: LOCAL TITLE: LR SURGICAL PATHOLOGY REPORT STANDARD TITLE: PATHOLOGY REPORT DATE OF NOTE: JULY 21, 2022@14:37:27 ENTRY DATE: JULY 21, 2022@14:37:27 AUTHOR: JIAN SANDOVAL EXP COSIGNER: URGENCY: STATUS: COMPLETED $APHDR Reporting Lab: [facility] [CLIA# [id number]] [place] [address] - - - - - - - [...] Pathology Report Performed By: [facility] [CLIA# [id number]] [place] [address] $FTR - - - - - - [...] - - MARYJO WAGNER STANDARD FORM 515 ID:[id number] SEX:M :1950 AGE: 72 LOC:[facility] PATHOLOGY PRO FEE ADM:June DX:PATHOLOGIC FX LF HUMERUS PCP: Leif Balbuena MD /sangita/ JIAN SANDOVAL STAFF PATHOLOGIST, PATHOLOGY & LABORATORY [facility] Signed: 07/21/2022 14:37 JIAN SANDOVAL [facility] Encounter Notes: All associated encounter notes This section contains the clinical notes associated to the Encounter. Date/Time Encounter Note(s) Provider Source July 17, 2022 02:42 PM ANESTHESIOLOGY NOT E: LOCAL TITLE: ANESTHESIA NON OR PROCEDURE NOTE STANDARD TITLE: ANESTHESIOLOGY NOTE DATE OF NOTE: JULY 17, 2022@14:42 ENTRY DATE: JULY 17, 2022@14:42:26 AUTHOR: SAMMY SHAFFER EXP COSIGNER: URGENCY: STATUS: COMPLETED Prinicipal Procedure: LUE tumor embolization Location of Procedure: Interventional radiology Date: July 17, 2022 Anesthesia start time: 908 Procedure start time: Procedure end time: Anesthesia end time: 1342 Principal primary school teacher librarian: Ravi Blanton Anesthesiologist: Batsheva Maldonado Student: No Anesthesia technique: General Anesthesia /es/ SAMMY SHAFFER CRNA CERTIFIED REGISTERED NURSE MINE WIRER Signed: 07/17/2022 14:46 SAMMY SHAFFER [facility]
--- OUTSIDE RECORDS SUMMARY | 2023-03-24 09:04 | XMS_ITS | Encounter Summary ---
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 of Vetera [facility] Address [address] [place] [id number] Support Name Relationship Address Phone DOREEN WAGNER Next of Kin [address] [place] [phone] DOREEN Emergency Contact [address] [place] [phone] Insurance Providers: All historical and current [...] Policy [place] [employer] [facility] (R) MEDICARE ADVANTAGE [facility] ([facility]) June 26, 2016 [id number] CARSONJOAN ROWELL PATIENT HUMANA MCR (WNR) MEDICARE ADVANTAGE [facility] ([facility]) June 26, 2016 [id number] JOAN WAGNER KARSTEN PATIENT [employer] MCR (WNR) MEDICARE ADVANTAGE [facility] ([facility]) June 26, 2016 [id number] JOAN WAGNER PATIENT Selected Encounter This section includes the information on record at [place] for the Encounter. Date/Time Encounter Type Encounter Description Reason Provider Source Sep 06, 2022 10:15 AM INTRAORAL PERIAPICAL FIRST DENTAL ICD-10-CM K08.409 Partial loss of teeth, unspecified cause, unspecified class OBED SCHWARZ IHMarlee Encounter Template Text not used by [place] Assessments - Encounter Diagnoses This section includes the primary and secondary diagnoses documented for the Encounter. Date/Time Primary/Secondary Diagnosis Diagnosis Name Provider Source Sep 06, 2022 10:50 AM PRIMARY Partial loss of teeth, unspecified cause, unspecified class ABBIE SCHWARZ [facility] Plan of Treatment: Future Appointments (+ 6 months) and Future Tests (+/- 45 days) The Plan of Treatment section includes future care activities for the patient from all [place] [facility]. This section includes future appointments and future orders which are active, pending or scheduled. Future Appointments This section includes appointments that were scheduled to occur 6 months from the date of the Encounter, up to a maximum of 20 appointments. The data comes from all [facility]. Appointment Date/Time Appointment Type Appointme nt Facility Name Oct 25, 2022 07:00 [facility] Oct 25, 2022 07:30 AM [facility] Oct 25, 2022 09:00 AM AMBULATORY - [...] of theEncounter. The data comes from all [facility]. Test Date/Time Test Type Test Details Facility Name Aug 07, 2022 11:23 AM Laboratory - Chemi stry Order DRUG SCREEN PANEL,URINE URINE ONCE [facility] Aug 23, 2022 10:47 AM Laboratory [...] Comment Aug 24, 2022 12:[address] [facility] URINALYSIS Specimen Type: URINE No comment entered. Ordering Provider: LUCIO KIM Report Released Date/Time: Aug 24, 2022 09:34 AM Reporting Lab: [facility] [id number] Performing Lab: [facility] [id number] URINE COLOR YELLOW SPECIFIC GRAVITY 1.030 1.003-1.03 [...] t Aug 23, 2022 11:[address] [facility] PROTHROMBIN TIME/INR Specimen Type: PLASMA No comment entered. Ordering Provider: Serena ESQUIVEL Report Released Date/Time: Aug 23, 2022 10:47 AM Aug 23, 2022 11:[address] [facility] ACT PART THROMBO TIME Specimen Type: PLASMA No comment entered. Ordering Provider: Serena ESQUIVEL Report Released Date/Time: Aug 23, 2022 10:47 AM Reporting Lab: [facility] [address] Performing Lab: [facility] [id number] APTT 30.2 25.1-36.5 Aug 23, 2022 11:[address] [facility] LIPID PANEL,NON-FASTING Specimen Type: PLASMA No comment entered. Ordering Provider: Serena ESQUIVEL Report Released Date/Time: Aug 23, 2022 10:47 AM Reporting Lab: [facility] [id number] Performing Lab: [facility] [address] CHOLESTEROL 129 See_Comm en t .HDL 36 L See_Commen t LDL CALCULATION 68 See_ Commen t VLDL CALCULATION 25 See_Commen t NON HDL CHOLESTEROL 93 See_Commen t TRIG(NON FASTING) 123 See_Commen t Aug 23, 2022 11:[address] [facility] TSH W/REFLEX TO FREE T4 Specimen Type: PLASMA No comment entered. Ordering Provider: Serena ESQUIVEL Report Released Date/Time: Aug 23, 2022 10:47 AM Reporting Lab: [facility] [address] Performing Lab: [facility] [phone] TSH 1.54 0.35-4.94 Aug 23, 2022 11:[address] [facility] SED RATE Specimen Type: BLOOD No comment entered. Ordering Provider: Serena ESQUIVEL Report Released Date/Time: Aug 23, 2022 10:47 AM Reporting Lab: [facility] [phone] Performing Lab: [facility] [address] SED RATE 31 H 5-15 Aug 23, 2022 11:[address] [facility] CARDIAC TROPONIN I Specimen Type: PLASMA No comment entered. Ordering Provider: Serena ESQUIVEL Report Released Date/Time: Aug 23, 2022 10:47 AM Reporting Lab: [facility] [address] Performing Lab: [facility] [address] CARDIAC TROPONIN I <0.028 See_Commen t Aug 23, 2022 11:[address] [facility] C-REACTIVE PROTEIN Specimen Type: SERUM No comment entered. Ordering Provider: Serena ESQUIVEL Report Released Date/Time: Aug 23, 2022 10:47 AM Reporting Lab: [facility] [address] Performing Lab: [facility] [address] C-REACTIVE PROTEIN 3.14 See_Commen t Aug 23, 2022 11:[address] [facility] PHOSPHORUS Specimen Type: PLASMA No comment entered. Ordering Provider: Serena ESQUIVEL Report Released Date/Time: Aug 23, 2022 10:47 AM Reporting Lab: [facility] [phone] Performing Lab: [facility] [address] PHOSPHORUS 3.9 2.3-4.7 Aug 23, 2022 11:[address] [facility] COMPREHENSIVE METABOLIC PANEL+MG Specimen Type: PLASMA No comment entered. Ordering Provider: Serena ESQUIVEL Report Released Date/Time: Aug 23, 2022 10:47 AM Reporting Lab: [facility] [address] Performing Lab: [facility] [phone] CREATININE 0.8 0.7-1.2 UREA NITROGEN 15 8-26 [...] t Aug 23, 2022 11:[address] [facility] HEMOGLOBIN A1C Specimen Type: BLOOD Comment: Values obtained from A1C measurements can vary. For typical A1C assays, a reported value of 7.0 could actually be between 6.7 and 7.3 if measured by a reference method. A reported value of 9.0 could actually be between 8.7 and 9.3. Ref: http://www. sp.org/CAPdat a.asp Ordering Provider: Serena ESQUIVEL Report Released Date/Time: Aug 23, 2022 10:47 AM Reporting Lab: [facility] [phone] Performing Lab: [facility] [address] HEMOGLOBIN A1C 4.2 4.0-6.0 Aug 23, 2022 11:[address] [facility] CBC & DIFF Specimen Type: BLOOD Comment: Automated Differential Performed Ordering Provider: Serena ESQUIVEL Report Released Date/Time: Aug 23, 2022 10:47 AM Reporting Lab: [facility] [address] Performing Lab: [facility] [phone] WBC 5.11 4.0-11.0 RBC 3.87 L 4.6-6.2 [...] 0-0.1 Aug 23, 2022 11:[address] [facility] POC CREATININE Specimen Type: BLOOD No comment entered. Ordering Provider: LAVONNE PANCHAL Report Released Date/Time: Aug 23, 2022 11:16 AM Reporting Lab: [facility] [phone] Performing Lab: [facility] [address] POC CREATININE 0.8 0.6-1.3 Social History: Smoking [...] 2022 09:15 AM [facility]-TO[facility]AC[facility] FOR[facility] Tobacco Use History This section includes a history of the smoking, or tobacco-related health factors, that were collected on or before the date of the Encounter. The data comes from the [place] facility where the Encounter took place. Date/Time Smoking Status/Tobacco Use Comment F acility May 10, 2022 09:15 AM VA-TOBACCO QUIT [address] [facility] May 11, 2021 09:15 AM VA-TOBACCO FORMER USER [facility] May 11, 2021 09:15 AM VA-TOBACCO QUIT [address] [facility] Nov 22, 2018 01:36 PM VA-TOBACCO NEVER USED [facility] Nov 12, 2017 07:35 AM FORMER TOBACCO USER 7Y OR GREATE R [facility] Nov 06, 2016 09:05 AM FORMER TOBACCO USER 7Y OR GREATE R [facility] Sep 27, 2015 09:42 AM FORMER TOBACCO USER 7Y OR GREATE R [facility] Sep 25, 2014 07:55 AM FORMER TOBACCO USER 7Y OR GREATE R [facility] Sep 08, 2013 07:48 AM FORMER TOBACCO USER 7Y OR GREATE R [facility] July 09, 2012 09:20 AM FORMER TOBACCO USE >1Y <7Y [facility] Jun 06, 2011 07:53 AM FORMER TOBACCO USE >1Y <7Y [facility] Sep 09, 2009 03:03 PM FORMER TOBACCO USE >1Y <7Y [facility] Aug 11, 2008 01:06 PM FORMER TOBACCO USE <1Y [facility] Sep 19, 2007 02:52 PM CURRENT TOBACCO USER [facility] Sep 03, 2006 03:32 PM [address] TOBACCO USER [facility] Advance Directives: All historical and current [...] 2022 01:11 PM MRI-BRAIN (P): MARYJO WAGNER [id number] -1950 M Ex Date: AUG 23, 2022@13:11 Req Phys: Serena ESQUIVEL Pat Loc: [facility] EMERGENCY DEPT WALK-IN (Re Img Loc: MRI IMAGING Service: Unknown (Case [id number] COMPLETE) MRI BRAINBRAINSTEM W & W/O CONTRA(MRI Detailed) CPT:74146 Contrast Media : Gadolinium Reason for Study: APHASIA X3 DAYS Clinical History: MRI BRAIN WITH/WITHOUT CONTRAST [place] IS NOT under investigation for COVID-19 or is COVID-19 negative Did the ordering provider speak with a system sales consultant regarding this imaging exam? Yes, Name of system sales consultant (resident or staff):Neurology Aphasia x 3 days Responsible provider name and phone number to notify for critical findings if other than user placing the order and pager listed below: User placing orders pager: [phone] LAST CREATININE 0.8 (08/23/22) Allergies: HAZELNUTS (Nov 21, 2002) Report Status: Verified Date Reported: AUG 23, 2022 Date Verified: AUG 23, 2022 Fourth Hand E-Sig:/ES/TERESA SANTAMARIA MD Report: MRI BRAINBRAINSTEM [...] in the left supratentorial compartment results in sloj-up-hlqiv midline shift again measuring up to 1.4 [...] intracranial mass effect, with rightward subfalcine herniation (piqu-mn-ravqn midline shift measures up to 1.4 cm) [...] Primary Interpreting Staff: TERESA SANTAMARIA MD, RADIOLOGIST (Fourth Hand) /[facility] TERESA SANTAMARIA [facility] Aug 23, 2022 12:03 PM CTA CAROTID/COW (P ): MARYJO WAGNER [id number] -1950 M Ex Date: AUG 23, 2022@12:03 Req Phys: Serena ESQUIVEL Pat Loc: [facility] EMERGENCY DEPT WALK-IN (Re [facility] Loc: CT IMAGING Service: Unknown (Case [id number] COMPLETE) CTA HEAD W/POSTPROCESSING (CT Detailed) CPT:63872 Contrast Media : unspecified contrast media Reason for Study: APHASIAx3 days (Case 1532 COMPLETE) CTA NECK (CT Detailed) CPT:06221 Contrast Media : unspecified contrast media Non-ionic [...] pager listed below: User placing orders pager: [phone] [id number] LAST 3: Collection DT Specimen Test Name [...] PLASMA ESTIMATED GFR(eGF >60 Ref: >=60 Allergies: ([place] only) HAZELNUTS (Nov 21, 2002) To see allergies from all [facility] locations click Reports tab>Remote Data>All Available Sites>Clinical Reports>Allergies. Report Status: Verified Date Reported: AUG 23, 2022 Date Verified: AUG 23, 2022 Fourth Hand E-Sig:/ES/TERESA SANTAMARIA MD Report: CTA HEAD [...] contribute to left cerebral white matter edema. Xrci-xp-sfsjf midline shift measures up to 1.4 cm. [...] left lateral ventricle. Rightward subfalcine herniation, with wsla-gq-nizpg midline shift measuring up to 1.4 cm. [...] Primary Interpreting Staff: TERESA SANTAMARIA MD, RADIOLOGIST (Fourth Hand) /[facility] TERESA SANATMARIA [facility] Aug 23, 2022 09:29 AM ELBOW LEFT 3 OR MO RE VIEWS: MARYJO WAGNER DIRK [id number] -1950 M Ex Date: AUG 23, 2022@09:29 Req Phys: LEIF PANDA Loc: [facility] ORTHO OT KENA 2F (Req'g Img Loc: MAIN X-RAY Service: Unknown (Case [id number] COMPLETE) ELBOW LEFT 3 OR MORE VIEWS (RAD Detailed) CPT:06916 Reason for Study: postop Clinical History: [place] IS NOT under investigation for COVID-19 or is COVID-19 negative postop Responsible provider name and phone number to notify for critical findings if other than user placing the order and pager listed below: User placing orders pager: [phone] LAST CREATININE 0.9 (07/19/22) Report Status: Verified Date Reported: AUG 23, 2022 Date Verified: AUG 23, 2022 Fourth Hand E-Sig:/SANGITA/ALBINA LEE MD Report: Exam: Left elbow [...] Primary Interpreting Staff: ALBINA LEE MD, RADIOLOGIST (Fourth Hand) /ALBINA SALEH [facility] Encounter Notes: All associated encounter notes This section contains the clinical notes associated to the Encounter. Date/Time Encounter Note(s) Provider Source Sep 06, 2022 10:50 AM DENTISTRY CONSULT: LOCAL TITLE: DENTAL IMAGING CONSULT STANDARD TITLE: DENTISTRY CONSULT DATE OF NOTE: SEP 06, 2022@10:50 ENTRY DATE: SEP 06, 2022@10:50:50 AUTHOR: MAGO SCHWARZ EXP COSIGNER: URGENCY: STATUS: COMPLETED Dental images were exposed, interpreted, and results were discussed with patient. /sangita/ MAGO SCHWARZ DDS STAFF DENTIST Signed: 09/06/2022 10:[address] [facility] Sep 06, 2022 10:45 AM DENTISTRY NOTE: LOCAL TITLE: Dental Clinic Note STANDARD TITLE: DENTISTRY NOTE DATE OF NOTE: SEP 06, 2022@10:45 ENTRY DATE: SEP 06, 2022@10:50:42 AUTHOR: MAGO SCHWARZ EXP COSIGNER: URGENCY: STATUS: COMPLETED Patient Name: MARYJO WAGNER, : 1950, Age: 72 Visit: S: Sep 06, 2022@10:15 MSP DENTAL TWINS. Primary PCE Diagnosis: K08.409 (Partial loss of teeth, unspecified cause, unspecified class). Dental Category: 15-OPC, Class IV. Treatment Status: Active. Dental Examination: Missing Teeth: 1, 2, 3, 15, 16, 17, 18, 19, 32. Existing Dental Restorations: Implant Confucianist: 19. Planned Procedures: Phase 2 () POST 1 [facility] RESINBASED CMPST: 20(D). DX: (). Completed Care: (D6199) IMPLANT PROCEDURE. DX: K08.409 Partial Loss of Teeth, unspecified Cause, unspecified Class (D0220) INTRAORAL PERIAPICAL FIRST. Tooth: 19. DX: K08.409 Partial Loss of Teeth, unspecified Cause, unspecified Class - - - - - - - - - - - - - - - - - - - - - - - - - - - - - - Pt Presents to the dental clinic for Implant Impression #19 Pt identity verified with SSN and . CC: The upper right implant failed. HPI: The pt presents for #19 implant impression. #3 implant was placed but failed. 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 The pt is looking into hospice options. The pt is not pursuing #3 implant replacement but is wanting to proceed with #19 implant crown today. Dental pain scale: 0/10 Medical history: Reviewed Medical history, allergies, and medications and there were no contraindications for treatment. Pt reports no changes to medical history. Pt appears to have full decision making capabilities, no barriers to learning identified. COVID-19 screening: negative The integrity of the sterilization wrap/bag, as well as the sterility of the instruments and kits used during this procedure was verified for sterility by the dentist and guest services assistant prior to their use. O: Implant #19 Company: [employer] Size:4.8 A: #19 integrated implant P: Anesthetic: None Patient was given informed consent and treatment options regarding today's procedure. Patient's questions were addressed and the patient verbalized an understanding. A time out was taken prior to the procedure to verify correct patient, correct procedure and correct site. #19 healing abutment removed and transfer coping inserted. PA image was obtained to confirm complete seating of transfer coping. Full arch [place] impression was obtained with Heavy body Purple Examix and Blue regular Examix material. Transfer coping was removed and healing abutment reinserted and hand tightened. Mx full arch impression was obtained with alginot impression material. Blue mousse bite registration used to obtain bite record. Shade: A3 CDL Dental Lab to Fabricate Custom abutment and Zirconia crown Gave post-operative anesthesia warning. Prognosis: good Start: 1000 End: 1030 Shot Lighter: Sue RTC: insert #19 implant crown Demetra [id number] /sangita/ MAGO SCHWARZ DDS STAFF DENTIST Signed: 09/06/2022 10:[address] [facility]
--- OUTSIDE RECORDS SUMMARY | 2023-03-24 09:04 | XMS_ITS | Encounter Summary ---
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 Vetera [facility] Organization Department of Vetera ns [facility] Address [address] [place] [address] Support Name Relationship Address Phone DOREEN WAGNER Next of Kin [phone] [place] [id number] DOREEN Emergency Contact [phone] [place] [id number] Insurance Providers: All historical and current [...] [place]'s Name Patient's Relationship to Policy [place] [facility]) MEDICARE ADVANTAGE MCR ([facility]) June 26, 2016 [id number] JOAN WAGNER [facility] MEDICARE ADVANTAGE MCR ([facility]) June 26, 2016 [id number] JOAN WAGNER KASRTEN PATIENT [facility] ([facility]) MEDICARE ADVANTAGE MCR ([facility]) June 26, 2016 [id number] [phone] CARSONJOAN ROWELL PATIENT Selected Encounter This section includes the information on record at [place] for the Encounter. Date/Time Encounter Type Encounter Description Reason Provider Source July 17, 2022 04:28 PM OFFICE O/P EST HI 40-54 MIN ANES SPECIAL PROCS IN OR SUITE ICD-10-CM Z01.818 Encounter for other preprocedural examination CHARLES ABARCA Encounter Template Text not used by [place] Assessments - Encounter Diagnoses This section includes the primary and secondary diagnoses documented for the Encounter. Date/Time Primary/Secondary Diagnosis Diagnosis Name Provider Source July 17, 2022 04:29 PM PRIMARY Encounter for other preprocedural examination CHARLES ABARCA [facility] Plan of Treatment: Future Appointments (+ 6 months) and Future Tests (+/- 45 days) The Plan of Treatment section includes [facility] care [facility] This section includes future appointments and future orders which are active, pending or scheduled. Future Appointments This section includes appointments that were scheduled to occur 6 months from the date of the Encounter, up to a maximum of 20 appointments. The data comes from all [facility]. Appointment Date/Time Appointment Type Appointme nt Facility Name Jul 28, 2022 10:45 AM AMBULATORY - MEDICINE [facility] Aug 13, 2022 06:13 PM AMBULATORY - MEDICINE [facility] Aug 23, 2022 09:30 AM AMBULATORY - SURGERY [facility] Aug 23, 2022 09:45 AM AMBULATORY - NONE [facility] Aug 23, 2022 10:30 AM AMBULATORY - MEDICINE [facility] Aug 23, 2022 10:31 AM AMBULATORY - MEDICINE [facility] Sep 06, 2022 10:15 AM AMBULATORY - SURGERY [facility] Oct 25, 2022 07:00 AM AMBULATORY - NONE [facility] Oct 25, 2022 07:30 AM AMBULATORY - SURGERY [facility] Oct 25, 2022 09:00 AM AMBULATORY SURGERY [facility] Active, Pending, and Scheduled Orders This section includes a listing of several types of active, pending, and scheduled orders, including clinic medications orders, diagnostic test orders, procedure orders and consult orders; where the start date of the order is 45 days before the date of the Encounter or 45 days after the date of theEncounter. The data comes from all [facility]. Test Date/Time Test Type Test Details Facility Name Jun 12, 2022 12:00 AM Laboratory - Chemistry Order COMPREHENSIVE METABOLIC PANEL+MG PLASMA ONCO SP ONCE [facility] Jun 12, 2022 12:00 AM Laboratory - Chemistry Order TSH W/REFLEX TO FREE T4 PLASMA ONCO SP ONCE [facility] Jun 12, 2022 12:00 AM Laboratory - Chemistry Order CBC & DIFF BLOOD ONCO SP ONCE [facility] July 14, 2022 12:00 AM Laboratory - Blood Bank Order ABO/RH - LAB BLOOD [facility] July 14, 2022 02:05 PM Laboratory - Blood Bank Order TYPE & SCREEN - LAB BLOOD [facility] Aug 07, 2022 11:23 AM Laboratory - Chemistry Order DRUG SCREEN PANEL,URINE URINE [facility] Aug 23, 2022 10:47 AM Laboratory [...] 05:00 PM Reporting Lab: [facility] [id number] Performing Lab: [facility] [address] FINGERSTICK GLUCOSE 132 70-100 July 19, 2022 07:13 AM [facility] COMPREHENSIVE METABOLIC PANEL+MG Specimen Type: PLASMA No comment entered. Ordering Provider: MACKENZIE COTTER Report Released Date/Time: July 18, 2022 05:40 PM Reporting Lab: [facility] [address] Performing Lab: [facility] [address] CREATININE 0.9 0.7-1.2 UREA NITROGEN 24 8-26 [...] 05:40 PM Reporting Lab: [facility] [address] Performing Lab: [facility] [address] IRON 28 L 65-175 TIBC,CALCULATE D 223 L 250-425 FERRITIN 73.7 21.8-274.7 IRON SATURATION 13 L 20-50 TRANSFERRIN 178 163-382 July 19, 2022 07:13 AM [facility] CBC Specimen Type: BLOOD No comment entered. Ordering Provider: MACKENZIE COTTER Report Released Date/Time: July 18, 2022 05:40 PM Reporting Lab: [facility] [address] Performing Lab: [facility] [address] WBC 7.73 4.0-11.0 RBC 2.42 L 4.6-6.2 [...] 11:54 AM Reporting Lab: [facility] [address] Performing Lab: [facility] [address] FINGERSTICK GLUCOSE 137 70-100 July 18, 2022 10:51 PM [facility] FINGERSTICK GLUCOSE Specimen Type: BLOOD Comment: Save Result Nurse Notified Ordering Provider: MACKENZIE COTTER Report Released Date/Time: July 18, 2022 11:06 PM Reporting Lab: [facility] [address] Performing Lab: [facility] [address] FINGERSTICK GLUCOSE 163 70-100 July 17, 2022 06:51 AM [facility] BASIC METABOLIC PANEL+MG Specimen Type: PLASMA No comment entered. Ordering Provider: DANG VALLE R Report Released Date/Time: July 16, 2022 09:37 AM Reporting Lab: [facility] [address] Performing Lab: [facility] [address] CREATININE 0.8 0.7-1.2 UREA NITROGEN 23 8-26 [...] 09:37 AM Reporting Lab: [facility] [address] Performing Lab: [facility] [address] .INR 1.0 0.8-1.1 .PT 11.5 9.4-12.5 July 17, 2022 06:51 AM [facility] CBC Specimen Type: BLOOD No comment entered. Ordering Provider: DANG VALLE R Report Released Date/Time: July 16, 2022 09:37 AM Reporting Lab: [facility] [address] Performing Lab: [facility] [address] WBC 6.05 4.0-11.0 RBC 3.77 L 4.6-6.2 [...] 11:04 AM Reporting Lab: [facility] [address] Performing Lab: [facility] [address] COVID-19 (CEPHEID) Not Detected Not Detected INFLUENZA A (PCR) Not Detected Not Detected INFLUENZA B (PCR) Not Detected Not Detected RSV (PCR) Not Detected Not Detected July 13, 2022 11:00 AM [facility] PROTHROMBIN TIME/INR Specimen Type: PLASMA No comment entered. Ordering Provider: WHITNEY ANDERSON Report Released Date/Time: July 13, 2022 11:04 AM Reporting Lab: [facility] [address] Performing Lab: [facility] [address] .INR 0.9 0.8-1.1 .PT 11.1 9.4-12.5 July 13, 2022 11:00 AM [facility] C-REACTIVE PROTEIN Specimen Type: SERUM Comment: Automated Differential Performed Ordering Provider: WHITNEY ANDERSON Report Released Date/Time: July 13, 2022 11:04 AM Reporting Lab: [facility] [address] Performing Lab: [facility] [address] C-REACTIVE PROTEIN 1.17 <5.00 July 13, 2022 11:00 AM [facility] SED RATE Specimen Type: BLOOD No comment entered. Ordering Provider: WHITNEY ANDERSON Report Released Date/Time: July 13, 2022 11:04 AM Reporting Lab: [facility] [address] Performing Lab: [facility] [address] SED RATE 10 5-15 July 13, 2022 11:00 AM [facility] CBC & DIFF Specimen Type: BLOOD Comment: Automated Differential Performed Ordering Provider: WHITNEY ANDERSON Report Released Date/Time: July 13, 2022 11:04 AM Reporting Lab: [facility] [address] Performing Lab: [facility] [address] WBC 8.82 4.0-11.0 RBC 3.89 L 4.6-6.2 [...] 11:04 AM Reporting Lab: [facility] [address] Performing Lab: [facility] [address] CREATININE 1.0 0.7-1.2 UREA NITROGEN 16 8-26 [...] Source July 17, 2022 11:20 PM 7 [facility] July 17, 2022 11:18 PM 7 [facility] July 17, 2022 11:11 PM 97.9 F 72 /min 122/77 mm[Hg] 18 /min 95 % 0 [facility] July 17, 2022 10:38 PM 7 [facility] July 17, 2022 08:55 PM 7 [facility] Social History: Smoking Status (Most [...] this document. The data comes from all [place] facilities. Date Advance Directives Provider Source Mar 18, 2003 ADVANCE DIRECTIVE FARHAT MELGAR [facility] Radiology Reports: +/- 30 days of the [...] 07:50 AM CHEST 1 VIEW: MARYJO WAGNER [id number] -1950 M Exm Date: JULY 20, 2022@07:50 Req Phys: MACKENZIE COTTER Pat Loc: 07-20-2022@08:26 Img Loc: MAIN X-RAY Service: PRIMARY CARE - MED OFFICE (Case [id number] COMPLETE) CHEST 1 VIEW (RAD Detailed) CPT:33966 Proc Modifiers : PORTABLE EXAM Reason for Study: see below. thanks. Clinical History: IS NOT under investigation for COVID-19 or is COVID-19 negative Please further evaluate for acute airspace disease given o2 requirement. Thanks. Responsible provider name and phone number to notify for critical findings if other than user placing the order and pager listed below: User placing orders pager: [phone] same LAST CREATININE 0.9 (07/19/22) Report Status: Verified Date Reported: JULY 20, 2022 Date Verified: JULY 20, 2022 Drawbridge Operator E-Sig:/ES/JAMIE MIGUEL MD Report: EXAM: CHEST 1 VIEW HISTORY: see below. thanks. Reason for Study: see below. thanks. [place] IS NOT under investigation for COVID-19 or is COVID-19 negative Please further evaluate for acute airspace disease given o2 requirement. Thanks. Responsible provider name and phone number to notify for critical findings if other than user placing the order and pager listed below: User placing orders pager: [phone] same LAST CREATININE 0. COMPARISON: Chest CT [...] Primary Interpreting Staff: JAMIE MIGUEL MD, RADIOLOGIST (Drawbridge Operator) /JAMIE FRANCES [facility] July 18, 2022 12:59 PM ELBOW LEFT 2 VIEWS: MARYJO WAGNER [id number] -1950 M Exm Date: JULY 18, 2022@12:59 Req Phys: LEIF BALBUENA Loc: OR-PACU/07-18-2022@13:59 Img Loc: MAIN X-RAY Service: ZZSURGICAL SERVICE (Case [id number] COMPLETE) ELBOW LEFT 2 VIEWS (RAD Detailed) CPT:32439 Proc Modifiers : PORTABLE EXAM, OPERATING ROOM EXAM Reason for Study: post-op Clinical History: post-op Report Status: Verified Date Reported: JULY 18, 2022 Date Verified: JULY 18, 2022 Drawbridge Operator E-Sig:/ES/JAKUB LEE MD Report: EXAM: ELBOW [...] Primary Interpreting Staff: JAKUB LEE MD, RADIOLOGIST (Drawbridge Operator) /JAKUB LUCERO [facility] July 18, 2022 07:30 AM FLUORO UP TO 1 HR PHYSICIAN TIME: BERNARDMARYJO GLOVERTARA [id number] -1950 M Exm Date: JULY 18, 2022@07:30 Req Phys: LEIF BALBUENA Loc: OR-PACU/07-18-2022@13:14 Img Loc: MAIN X-RAY Service: PRIMARY CARE - MED OFFICE (Case [id number] COMPLETE) FLUORO UP TO 1 HR PHYSICIAN TIME (RAD Detailed) CPT:31716 Proc Modifiers : PORTABLE EXAM, OPERATING ROOM EXAM, LEFT Reason for Study: Left distal humerous ORIF Clinical History: OR 7 Pathologic distal humeral shaft fracture Responsible provider name and phone number to notify for critical findings if other than user placing the order and pager listed below: User placing orders pager: Henry BALBUENA [phone] LAST CREATININE 0.8 (07/17/22) Report Status: Electronically Filed Date Reported: JULY 18, 2022 Report: Impression: Please see the full report for this procedure in [facility] progress notes. Fluoro guidance was provided during this procedure, but the study was not reviewed or verified by a [facility] radiologist. The radiation exposure dose has been recorded in the patient's chart. If you are unable to view this data, please contact the Imaging Department. VERIFIED BY: / *ELECTRONICALLY FILED* [facility] July 17, 2022 03:28 PM ABDOMINAL AORTOGRAM (P): MARYJO WAGNER [id number] -1950 M Exm Date: JULY 17, 2022@15:28 Req Phys: MALCOM LANGLEY Loc: 07-17-2022@15:54 Img Loc: INTERVENTIONAL RADIOLOGY Service: PRIMARY CARE - MED OFFICE (Case [id number] COMPLETE) ANGIOGRAPHY EXTREMITY UNILAT S&I (ANI Detailed) CPT:19129 Reason for Study: codes (Case 528 COMPLETE) IR AORTOGRAPHY ABDOMINAL W/O RUNO(ANI Detailed) CPT:52897 (Case 529 COMPLETE) IR FOREIGN BODY REMOVAL INTRAVASC(ANI Detailed) CPT:58337 (Case 532 COMPLETE) IR NEEDLE/INTRACATH PLACEMENT EXT(ANI Detailed) CPT:22070 (Case 533 COMPLETE) IR PLACEMENT OCCLUSIVE DEVICE SAM(ANI Detailed) CPT:G0269 Clinical History: codes Report Status: Verified Date Reported: JULY 17, 2022 Date Verified: JULY 17, 2022 Drawbridge Operator E-Sig:/ES/MALCOM LANGLEY MD Report: RADIOLOGIST: Malcom [...] angiogram and runoff. 12. Closure of right AIR CONDITIONING ENGINEER with Angio-Seal device. HISTORY: Metastatic renal [...] Sheath removed over guidewire and a 5 guatemalan vascular sheath advanced over guidewire into the artery. An H1 catheter was advanced along with the guidewire into the thoracic arch and the left subclavian artery was selected. Catheter and the guidewire were advanced into the left brachial artery. The 5 [place] Citizen sheath was exchanged for a 6 [place] Citizen sheath that was advanced into the left [...] arteries. Sheath and catheters were removed and AIR CONDITIONING ENGINEER arteriotomy was closed using Angioseal. There is patent hemostasis. No bleeding or hematoma noted. Sterile dressing applied. 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 Primary Interpreting Staff: MALCOM LANGLEY MD, INTERVENTIONAL RADIOLOGIST (Drawbridge Operator) /MALCOM HE [facility] July 17, 2022 07:30 AM RENAL ARTERY EMBOLIZATION (P): MARYJO WAGNER [id number] -1950 M Exm Date: JULY 17, 2022@07:30 Req Phys: PEDROWESTON [facility] Loc: 07-17-2022@15:46 Img Loc: INTERVENTIONAL RADIOLOGY Service: PRIMARY CARE - MED OFFICE (Case 130 COMPLETE) IR TRANSCATH EMBOLIZATION W/ANGIO(ANI Detailed) CPT:42303 Reason for Study: embolization of RCC mets to left humerus (Case 131 COMPLETE) IR ARTERIAL EMBOLIZATION OTHER TH(ANI Detailed) CPT:74123 (Case 132 COMPLETE) IR US GUIDANCE VASCULAR ACCESS (ANI Detailed) CPT:50663 Clinical History: [place] IS NOT under investigation for COVID-19 or [...] pager listed below: User placing orders pager: [phone] LAST CREATININE 1.0 (07/13/22) Report Status: Verified Date Reported: JULY 17, 2022 Date Verified: JULY 17, 2022 [employer] E-Sig:/ES/MALCOM LANGLEY MD Report: RADIOLOGIST: Malcom Langley [...] angiogram and runoff. 12. Closure of right AIR CONDITIONING ENGINEER with Angio-Seal device. HISTORY: Metastatic renal [...] Sheath removed over guidewire and a 5 guatemalan vascular sheath advanced over guidewire into the artery. An H1 catheter was advanced along with the guidewire into the thoracic arch and the left subclavian artery was selected. Catheter and the guidewire were advanced into the left brachial artery. The 5 [place] Citizen sheath was exchanged for a 6 [place] Citizen sheath that was advanced into the left [...] arteries. Sheath and catheters were removed and AIR CONDITIONING ENGINEER arteriotomy was closed using Angioseal. There is patent hemostasis. No bleeding or hematoma noted. Sterile dressing applied. 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 Primary Interpreting Staff: MALCOM LANGLEY MD, INTERVENTIONAL RADIOLOGIST (Drawbridge Operator) /MALCOM HE [facility] July 14, 2022 06:44 AM HUMERUS LEFT MINIMUM 2 VIEWS: MARYJO WAGNER [id number] -1950 M Exm Date: JULY 14, 2022@06:44 Req Phys: WESTON VASQUEZ Pat Loc: 07-14-2022@07:13 Img Loc: MAIN X-RAY Service: PRIMARY CARE - MED OFFICE (Case [id number] COMPLETE) HUMERUS LEFT MINIMUM 2 VIEWS (RAD Detailed) CPT:41570 Reason for Study: post reduction Clinical History: Report Status: Verified Date Reported: JULY 14, 2022 Date Verified: JULY 14, 2022 Drawbridge Operator E-Sig: Report: HUMERUS LEFT MINIMUM 2 VIEWS HISTORY: post reduction COMPARISON: 07/13/2022 TECHNIQUE: 2 view(s) of the humerus, submitted to the [place] National Teleradiology Program (NTP) for interpretation. FINDINGS: [...] less likely. READING PHYSICIAN: Xavier Merrill MD -[id number] 07/14/2022 5:[address] [facility] National Teleradiology Program [phone] (For Medical Practitioner Use Only) Attention Patients / Veterans: If you have questions or concerns about these test results, please contact your ordering provider or primary care team. Primary Interpreting Staff: RADIOLOGY,OUTSIDE SERVICE, Staff Physician / RADIOLOGY,OUTSIDE SERVICE [facility] July 13, 2022 10:07 AM ELBOW LEFT 3 OR MORE VIEWS: MARYJO WAGNER [id number] -1950 M Exm Date: JULY 13, 2022@10:07 Req Phys: WHITNEY ANDERSON Loc: [facility] EMERGENCY DEPT WALK-IN (Re Img Loc: MAIN X-RAY Service: Unknown (Case [id number] COMPLETE) ELBOW LEFT 3 OR MORE VIEWS (RAD Detailed) CPT:90323 Proc Modifiers : LEFT Reason for Study: L arm pain Clinical History: [place] IS NOT under investigation for COVID-19 or is COVID-19 negative Atraumatic left upper extremity pain that is located midshaft humerus distally to the mid forearm. Clinical concern for dislocation versus fracture versus bone mets Responsible provider name and phone number to notify for critical findings if other than user placing the order and pager listed below: User placing orders pager: [phone] LAST CREATININE 0.8 (05/10/22) Report Status: Verified Date Reported: JULY 13, 2022 Date Verified: JULY 13, 2022 Drawbridge Operator E-Sig:/ES/ALBINA COWAN MD, FACR, CCD Report: [...] Staff: ALBINA COWAN MD, FACR, STAFF RADIOLOGIST (Drawbridge Operator) /BSF ALBINA COWAN [facility] July 13, 2022 10:07 AM HUMERUS LEFT MINIMUM 2 VIEWS: MARYJO WAGNER [id number] -1950 M Exm Date: JULY 13, 2022@10:07 Req Phys: WHITNEY ANDERSON Pat Loc: [facility] EMERGENCY DEPT WALK-IN (Re Im Loc: MAIN X-RAY Service: Unknown (Case [id number] COMPLETE) HUMERUS LEFT MINIMUM 2 VIEWS (RAD Detailed) CPT:94024 Proc Modifiers : LEFT Reason for Study: [...] pager listed below: User placing orders pager: [phone] LAST CREATININE 0.8 (05/10/22) Report Status: Verified Date Reported: JULY 13, 2022 Date Verified: JULY 13, 2022 Drawbridge Operator E-Sig:/ES/ALBINA COWAN MD, FACR, CCD Report: [...] Staff: ALBINA COWAN MD, FACR, STAFF RADIOLOGIST (Drawbridge Operator) /BSF ALBINA COWAN [facility] July 13, 2022 10:07 AM FOREARM LEFT 2 VIEWS: MAYRJO WAGNER [id number] -1950 M Exm Date: JULY 13, 2022@10:07 Req Phys: WHITNEY ANDERSNO Pat Loc: [facility] EMERGENCY DEPT WALK-IN (Re Img Loc: MAIN X-RAY Service: Unknown (Case 2151 COMPLETE) FOREARM LEFT 2 VIEWS (RAD Detailed) CPT:33326 Proc Modifiers : LEFT Reason for Study: L arm pain Clinical History: [place] IS NOT under investigation for COVID-19 or is COVID-19 negative Atraumatic left upper extremity pain that is located midshaft humerus distally to the mid forearm. Clinical concern for dislocation versus fracture versus bone mets Responsible provider name and phone number to notify for critical findings if other than user placing the order and pager listed below: User placing orders pager: [phone] LAST CREATININE 0.8 (05/10/22) Report Status: Verified Date Reported: JULY 13, 2022 Date Verified: JULY 13, 2022 Drawbridge Operator E-Sig:/ES/ALBINA COWAN MD, FACR, CCD Report: [...] Staff: ALBINA COWAN MD, FACR, STAFF RADIOLOGIST (Drawbridge Operator) /BSF ALBINA COWAN [facility] Pathology Reports: +/- 30 days [...] comes from all [place] treatment facilities. Date/Time Pathology Report Provider Source July 13, 2022 04:06 PM LR SURGICAL PATHOL OGY REPORT: LOCAL TITLE: LR SURGICAL PATHOLOGY REPORT STANDARD TITLE: PATHOLOGY REPORT DATE OF NOTE: JULY 21, 2022@14:37:27 ENTRY DATE: JULY 21, 2022@14:37:27 AUTHOR: JIAN SANDOVAL EXP COSIGNER: URGENCY: STATUS: COMPLETED $APHDR Reporting Lab: [facility] [CLIA# [id number]] [place] [address] - - - - - - - [...] SANDOVAL STAFF PATHOLOGIST, PATHOLOGY & LABORATORY [facility] Signed July 21, 2022@14:37 Performing Laboratory: Surgical Pathology Report Performed By: [facility] [CLIA# [id number]] [place] [address] $FTR - - - - - - [...] - - MARYJO WAGNER STANDARD FORM 515 ID:[id number] SEX:M :1950 AGE: 72 LOC:[facility] PATHOLOGY PRO FEE ADM:June DX:PATHOLOGIC FX LF HUMERUS PCP: Leif Balbuena MD /sangita/ JIAN SANDOVAL STAFF PATHOLOGIST, PATHOLOGY & LABORATORY [facility] Signed: 07/21/2022 14:37 JIAN SANDOVAL [facility] Encounter Notes: All associated encounter notes This section contains the clinical notes associated to the Encounter. Date/Time Encounter Note(s) Provider Source July 17, 2022 04:29 PM ANESTHESIOLOGY PRO CEDURE NOTE: LOCAL TITLE: ANESTHESIA PROCEDURE NOTE STANDARD TITLE: ANESTHESIOLOGY PROCEDURE NOTE DATE OF NOTE: JULY 17, 2022@16:29 ENTRY DATE: JULY 17, 2022@16:29:11 AUTHOR: CHARLES AABRCA COSIGNER: URGENCY: STATUS: COMPLETED ANESTHESIA REGIONAL/NEURAXIAL BLOCK [...] rescue. Allergies Time out participants: Anesthesiologist: Pawel (S1,N2)/Robbie (N1,S2) Certified Registered Nurse Environmental Professional: N/A Non-Anesthesia provider for time out: Bg Jacob RN Time block placed: 1523 Standard monitors applied (BP, ECG, SPO2), and patent IV access verified. ~~~~~~~~~~~~~~~~~~~~~~~~~~~~~~ ~~~~~~~~~~~~~~~~~~~~~~~~~~~SIT E PREPARATION~~~~ Asepsis Chlorhexidine Sterile gloves Hand washing Hat Mask Technique Single injection Needle 4 inch 21G ~~~~~~~~~~~~~~~~~~~~~~~~~~~~~~ ~~~~~~~~~~~~~~~~~~~~~~~~PLACEM ENT TECHNIQUE~~~~ [place] Ultrasound guided Local anesthetic spread visualized around nerves or fascial plane Sterile probe cover used Relevant structures identified Nerve bundles identified US images saved?: No ~~~~~~~~~~~~~~~~~~~~~~~~~~~~~~ ~~~~~~~~~~~~~~~~~~~~~~~~~~~~BL OCK PERFORMED~~~~ Laterality Left Block(s) performed: Axillary Other: only the musculocutaneous and radial nerves of the axillary brachial plexus to cover involved osteotomes appropriately ~~~~~~~~~~~~~~~~~~~~~~~~~~~~~~ ~~~~~~~~~~~~~~~~~~~ANESTHETIC AND ADDITIVES~~~~ Bupivacaine .5 % - 20 mls Additive (s) Dexamethasone 4 mg ~~~~~~~~~~~~~~~~~~~~~~~~~~~~~~ ~~~~~~~~~~~~~~~BLOCK EFFICACY AND PLACEMENT~~~~ Negative pain on injection Injection resistance minimal (<15 psi/by feel) Negative aspiration prior to injection Success Uneventful placement, vital signs monitored throughout placement Block successfully placed, full evaluation pending /sangita/ CHARLES ABARCA MD ANESTHESIOLOGIST Signed: 07/17/2022 16:42 CHARLES ABARCA [facility]
--- OUTSIDE RECORDS SUMMARY | 2023-03-24 09:04 | XMS_ITS | Encounter Summary ---
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 Organization [facility] Address [address] [place] [address] Support Name Relationship Address Phone DOREEN WAGNER Next of Kin [address] [place] [phone] DOREEN Emergency Contact [address] [place] [phone] Insurance Providers: All historical and current [...] Relationship to Policy Casey HUMANA [facility] (WNR) MEDICARE [facility] ([facility]) June 26, 2016 [id number] CARSONJOAN ROWELL PATIENT [employer]MANA MCR (WNR) MEDICARE ADVANTAGE [facility] ([facility]) June 26, 2016 [id number] JOAN WAGNER KARSTEN PATIENT [employer]NA MCR (WNR) MEDICARE ADVANTAGE [facility] (R) June 26, 2016 [id number] [phone] JOAN WAGNER KARSTEN PATIENT Selected Encounter This section includes the information on record at NE for the Encounter. Date/Time Encounter Type Encounter Description Reason Pro vider Source July 17, 2022 01:39 PM Inpatient Visit ADMIN [employer]) SYSTEM,[facility]HE Encounter Template Text not used [...] from all [facility]. Appointment Date/Time Appointment Type Appointme nt Facility Name Jul 28, 2022 10:45 AM [facility] Aug 13, 2022 06:13 PM [facility] Aug 23, 2022 09:30 AM AMBULATORY - SURGERY [facility] Aug 23, 2022 09:45 AM [facility] Aug 23, 2022 10:30 AM AMBULATORY - MEDICINE [facility] Aug 23, 2022 10:31 AM AMBULATORY - MEDICINE [facility] Sep 06, 2022 10:15 AM AMBULATORY - SURGERY [facility] Oct 25, 2022 07:00 AM [facility] Oct 25, 2022 07:30 AM AMBULATORY [...] from all [facility]. Test Date/Time Test Type Test Details Facility Name Jun 12, 2022 12:00 AM Laboratory - Chemistry Order CBC & DIFF BLOOD ONCO SP ONCE [facility] Jun 12, 2022 12:00 AM Laboratory - Chemistry Order COMPREHENSIVE METABOLIC PANEL+MG PLASMA ONCO SP ONCE [facility] Jun 12, 2022 12:00 AM Laboratory - Chemistry Order TSH W/REFLEX TO FREE T4 PLASMA ONCO SP ONCE [facility] July 14, 2022 12:00 AM Laboratory - Blood Bank Order ABO/RH - LAB BLOOD [facility] July 14, 2022 02:05 PM Laboratory - Blood Bank Order TYPE & SCREEN - LAB BLOOD [facility] Aug 07, 2022 11:23 AM Laboratory - Chemistry Order DRUG SCREEN PANEL,URINE URINE ONCE [facility] Aug 23, 2022 10:47 AM Laboratory - Chemistry Order URINALYSIS URINE ER STAT WC [facility] Lab Results: +/- 30 days [...] Range Comment July 19, 2022 04:40 PM [facility] FINGERSTICK GLUCOSE Specimen Type: BLOOD Comment: Save Result Nurse Notified Ordering Provider: MACKENZIE COTTER Report Released Date/Time: July 19, 2022 05:00 PM Reporting Lab: [facility] [address] Performing Lab: [facility] [address] FINGERSTICK GLUCOSE 132 70-100 July 19, 2022 07:13 AM [facility] COMPREHENSIVE METABOLIC PANEL+MG Specimen Type: PLASMA No comment entered. Ordering Provider: MACKENZIE COTTER Report Released Date/Time: July 18, 2022 05:40 PM Reporting Lab: [facility] [id number] Performing Lab: [facility] [address] CREATININE 0.9 0.7-1.2 UREA NITROGEN 24 8-26 [...] See_Commen t July 19, 2022 07:13 AM [facility] IRON GROUP Specimen Type: SERUM No comment entered. Ordering Provider: MACKENZIE COTTER Report Released Date/Time: July 18, 2022 05:40 PM Reporting Lab: [facility] [address] Performing Lab: [facility] [address] IRON 28 L 65-175 TIBC,CALCULATE D 223 L 250-425 FERRITIN 73.7 21.8-274.7 IRON SATURATION 13 L 20-50 TRANSFERRIN 178 163-382 July 19, 2022 07:13 AM [facility] CBC Specimen Type: BLOOD No comment entered. Ordering Provider: MACKENZIE COTTER Report Released Date/Time: July 18, 2022 05:40 PM Reporting Lab: [facility] [address] Performing Lab: [facility] [address] WBC 7.73 4.0-11.0 RBC 2.42 L 4.6-6.2 HGB 8.2 L 13.5-17.9 HCT 23.8 L 41-54 MCV 98.3 80-100 MCH 33.9 H 27-33 MCHC 34.5 32.0-37.5 PLT 155 150-400 MPV 9.6 7.4-10.4 RDW 13.5 11.5-14.5 July 19, 2022 05:44 AM [facility] FINGERSTICK GLUCOSE Specimen Type: BLOOD Comment: Save Result Nurse Notified Ordering Provider: MACKENZIE COTTER Report Released Date/Time: July 19, 2022 11:54 AM Reporting Lab: [facility] [address] Performing Lab: [facility] [address] FINGERSTICK GLUCOSE 137 70-100 July 18, 2022 10:51 PM [facility] FINGERSTICK GLUCOSE Specimen Type: BLOOD Comment: Save Result Nurse Notified Ordering Provider: MACKENZIE COTTER Report Released Date/Time: July 18, 2022 11:06 PM Reporting Lab: [facility] [address] Performing Lab: [facility] [address] FINGERSTICK GLUCOSE 163 70-100 July 17, 2022 06:51 AM [facility] BASIC METABOLIC PANEL+MG Specimen Type: PLASMA No comment entered. Ordering Provider: DANG VALLE Report Released Date/Time: July 16, 2022 09:37 AM Reporting Lab: [facility] [address] Performing Lab: [facility] [address] CREATININE 0.8 0.7-1.2 UREA NITROGEN 23 8-26 GLUCOSE 107 H 70-100 SODIUM 139 136-145 POTASSIUM 3.9 3.5-5.1 CHLORIDE 106 98-107 CO2 28 22-29 CALCIUM 9.1 8.4-10.2 MAGNESIUM 1.9 1.6-2.6 ANION GAP 5 5-15 .CREAT EGFR(CKD-EPI) >90 See_Commen t July 17, 2022 06:51 AM [facility] PROTHROMBIN TIME/INR Specimen Type: PLASMA No comment entered. Ordering Provider: DANG VALLE R Report Released Date/Time: July 16, 2022 09:37 AM Reporting Lab: [facility] [address] Performing Lab: [facility] [address] .INR 1.0 0.8-1.1 .PT 11.5 9.4-12.5 July 17, 2022 06:51 AM [facility] CBC Specimen Type: BLOOD No comment entered. Ordering Provider: DANG VALLE R Report Released Date/Time: July 16, 2022 09:37 AM Reporting Lab: [facility] [address] Performing Lab: [facility] [address] WBC 6.05 4.0-11.0 RBC 3.77 L 4.6-6.2 HGB 12.7 L 13.5-17.9 HCT 36.0 L 41-54 MCV 95.5 80-100 MCH 33.7 H 27-33 MCHC 35.3 32.0-37.5 PLT 179 150-400 MPV 9.4 7.4-10.4 RDW 13.2 11.5-14.5 July 13, 2022 11:22 AM [facility] COVID-19 AND FLU/RSV DIAG PANEL(CEPHEID) Specimen Typ e: NASOPHARYNGEAL Comment: Cepheid GeneXpert (618) Ordering Provider: WHITNEY ANDERSON Report Released Date/Time: July 13, 2022 11:04 AM Reporting Lab: [facility] [address] Performing Lab: [facility] [address] COVID-19 (CEPHEID) Not Detected Not Detected INFLUENZA A (PCR) Not Detected Not Detected INFLUENZA B (PCR) Not Detected Not Detected RSV (PCR) Not Detected Not Detected July 13, 2022 11:00 AM [facility] C-REACTIVE PROTEIN Specimen Type: SERUM Comment: Automated Differential Performed Ordering Provider: WHITNEY ANDERSON Report Released Date/Time: July 13, 2022 11:04 AM Reporting Lab: [facility] [address] Performing Lab: [facility] [address] C-REACTIVE PROTEIN 1.17 <5.00 July 13, 2022 11:00 AM [facility] PROTHROMBIN TIME/INR Specimen Type: PLASMA No comment entered. Ordering Provider: WHITNEY ANDERSON Report Released Date/Time: July 13, 2022 11:04 AM Reporting Lab: [facility] [address] Performing Lab: [facility] [address] .INR 0.9 0.8-1.1 .PT 11.1 9.4-12.5 July 13, 2022 11:00 AM [facility] SED RATE Specimen Type: BLOOD No comment entered. Ordering Provider: WHITNEY ANDERSON Report Released Date/Time: July 13, 2022 11:04 AM Reporting Lab: [facility] [address] Performing Lab: [facility] [address] SED RATE 10 5-15 July 13, 2022 11:00 AM [facility] CBC & DIFF Specimen Type: BLOOD Comment: Automated Differential Performed Ordering Provider: WHITNEY ANDERSON Report Released Date/Time: July 13, 2022 11:04 AM Reporting Lab: [facility] [address] Performing Lab: [facility] [address] WBC 8.82 4.0-11.0 RBC 3.89 L 4.6-6.2 [...] 0.03 0-0.1 July 13, 2022 11:00 AM [facility] COMPREHENSIVE METABOLIC PANEL+MG Specimen Type: PLASMA Comment: Automated Differential Performed Ordering Provider: WHITNEY ANDERSON Report Released Date/Time: July 13, 2022 11:04 AM Reporting Lab: [facility] [address] Performing Lab: [facility] [address] CREATININE 1.0 0.7-1.2 UREA NITROGEN 16 8-26 [...] Source July 17, 2022 11:20 PM 7 [facility] July 17, 2022 11:18 PM 7 [facility] July 17, 2022 11:11 PM 97.9 F 72 /min 122/77 mm[Hg] 18 /min 95 % 0 [facility] July 17, 2022 10:38 PM 7 [facility] July 17, 2022 08:55 PM 7 [facility] Social History: Smoking Status (Most current) [...] AM NE-TOBACCO QUIT 15 YRS OR MORE [facility] Tobacco Use History This section includes a history of the smoking, or tobacco-related health factors, that were collected on or before the date of the Encounter. The data comes from the [place] facility where the Encounter took place. Date/Time Smoking Status/Tobacco Use Comment F acility May 10, 2022 09:15 AM VA-TOBACCO QUIT 15 YRS OR MORE [facility] May 11, 2021 09:15 AM VA-TOBACCO FORMER USER [facility] May 11, 2021 09:15 AM NE-TOBACCO QUIT 15 YRS OR MORE [facility] Nov 22, 2018 01:36 PM VA-TOBACCO NEVER USED [facility] Nov 12, 2017 07:35 AM FORMER TOBACCO USER 7Y OR GREATE R [facility] Nov 06, 2016 09:05 AM FORMER TOBACCO USER 7Y OR GREATE R [facility] Sep 27, 2015 09:42 AM FORMER TOBACCO USER 7Y OR GREATE R [facility] Sep 25, 2014 07:55 AM FORMER TOBACCO USER 7Y OR GREATE R [facility] Sep 08, 2013 07:48 AM FORMER TOBACCO USER 7Y OR GREATE R [facility] July 09, 2012 09:20 AM FORMER TOBACCO USE >1Y <7Y [facility] Jun 06, 2011 07:53 AM FORMER TOBACCO USE >1Y <7Y [facility] Sep 09, 2009 03:03 PM FORMER TOBACCO USE >1Y <7Y [facility] Aug 11, 2008 01:06 PM FORMER TOBACCO USE <1Y [facility] Sep 19, 2007 02:52 PM CURRENT TOBACCO USER [facility] Sep 03, 2006 03:32 PM CURRENT TOBACCO USER [facility] Advance Directives: All historical and current [...] Mar 18, 2003 ADVANCE DIRECTIVE FARHAT MELGAR [facility] Radiology Reports: +/- 30 days of the [...] 07:50 AM CHEST 1 VIEW: MARYJO WAGNER [id number] -1950 M Exm Date: JULY 20, 2022@07:50 Req Phys: MACKENZIE COTTER Pat Loc: 07-20-2022@08:26 Img Loc: MAIN X-RAY Service: PRIMARY CARE - MED OFFICE (Case [id number] COMPLETE) CHEST 1 VIEW (RAD Detailed) CPT:27237 Proc Modifiers : PORTABLE EXAM Reason for Study: see below. thanks. Clinical History: [place] IS NOT under investigation for COVID-19 or is COVID-19 negative Please further evaluate for acute airspace disease given o2 requirement. Thanks. Responsible provider name and phone number to notify for critical findings if other than user placing the order and pager listed below: User placing orders pager: [phone] same LAST CREATININE 0.9 (07/19/22) Report Status: Verified Date Reported: JULY 20, 2022 Date Verified: JULY 20, 2022 Silo Painter E-Sig:/ES/JAMIE MIGUEL MD Report: EXAM: CHEST 1 [...] pager listed below: User placing orders pager: [phone] same LAST CREATININE 0. COMPARISON: Chest CT [...] Interpreting Staff: JAMIE MIGUEL MD, RADIOLOGIST (Silo Painter) /JAMIE FRANCES [facility] July 18, 2022 12:59 PM ELBOW LEFT 2 VIEWS: MARYJO WAGNER [id number] -1950 M Exm Date: JULY 18, 2022@12:59 Req Phys: LEIF BALBUENA Loc: OR-PACU/07-18-2022@13:59 Img Loc: MAIN X-RAY Service: ZZSURGICAL SERVICE (Case [id number] COMPLETE) ELBOW LEFT 2 VIEWS (RAD Detailed) CPT:96564 Proc Modifiers : PORTABLE EXAM, OPERATING ROOM EXAM Reason for Study: post-op Clinical History: post-op Report Status: Verified Date Reported: JULY 18, 2022 Date Verified: JULY 18, 2022 Silo Painter E-Sig:/ES/JAKUB LEE MD Report: EXAM: ELBOW LEFT [...] Interpreting Staff: JAKUB LEE MD, RADIOLOGIST (Silo Painter) /[facility] JAKUB LEE [facility] July 18, 2022 07:30 AM FLUORO UP TO 1 HR PHYSICIAN TIME: MARYJO WAGNER [id number] -1950 M Exm Date: JULY 18, 2022@07:30 Req Phys: LEIF BALBUENA Loc: OR-PACU/07-18-2022@13:14 Img Loc: MAIN X-RAY Service: PRIMARY CARE - MED OFFICE (Case [id number] COMPLETE) FLUORO UP TO 1 HR PHYSICIAN TIME (RAD Detailed) CPT:82988 Proc Modifiers : PORTABLE EXAM, OPERATING ROOM EXAM, LEFT Reason for Study: Left distal humerous ORIF Clinical History: OR 7 Pathologic distal humeral shaft fracture Responsible provider name and phone number to notify for critical findings if other than user placing the order and pager listed below: User placing orders pager: Henry BALBUENA [phone] LAST CREATININE 0.8 (07/17/22) Report Status: Electronically [...] Imaging Department. VERIFIED BY: / *ELECTRONICALLY FILED* [facility] July 17, 2022 03:28 PM ABDOMINAL AORTOGRAM (P): MARYJO WAGNER [id number] -1950 M Exm Date: JULY 17, 2022@15:28 Req Phys: MALCOM LANGLEY [facility] Loc: 07-17-2022@15:54 Img Loc: INTERVENTIONAL RADIOLOGY Service: PRIMARY CARE - MED OFFICE (Case [id number] COMPLETE) ANGIOGRAPHY EXTREMITY UNILAT S&I (ANI Detailed) CPT:03659 Reason for Study: codes (Case 528 COMPLETE) IR AORTOGRAPHY ABDOMINAL W/O RUNO(ANI Detailed) CPT:52185 (Case 529 COMPLETE) IR FOREIGN BODY REMOVAL INTRAVASC(ANI Detailed) CPT:52982 (Case 532 COMPLETE) IR NEEDLE/INTRACATH PLACEMENT EXT(ANI Detailed) CPT:56956 (Case 533 COMPLETE) IR PLACEMENT OCCLUSIVE DEVICE SAM(ANI Detailed) CPT:G0269 Clinical History: codes Report Status: Verified Date Reported: JULY 17, 2022 Date Verified: JULY 17, 2022 Silo Painter E-Sig:/ES/MALCOM LANGLEY MD Report: RADIOLOGIST: Malcom Langley [...] angiogram and runoff. 12. Closure of right OPENSTACK CLOUD CONSULTING ARCHITECT with Angio-Seal device. HISTORY: Metastatic renal cell [...] Sheath removed over guidewire and a 5 bermudian vascular sheath advanced over guidewire into the artery. An H1 catheter was advanced along with the guidewire into the thoracic arch and the left subclavian artery was selected. Catheter and the guidewire were advanced into the left brachial artery. The 5 Guinean sheath was exchanged for a 6 Guinean sheath that was advanced into the [...] arteries. Sheath and catheters were removed and OPENSTACK CLOUD CONSULTING ARCHITECT arteriotomy was closed using Angioseal. There is patent hemostasis. No bleeding or hematoma noted. Sterile dressing applied. 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 Primary Interpreting Staff: MALCOM LANGLEY MD, INTERVENTIONAL RADIOLOGIST (Silo Painter) /MALCOM HE [facility] July 17, 2022 07:30 AM RENAL ARTERY EMBOLIZATION (P): MARYJO WAGNER [id number] -1950 M Exm Date: JULY 17, 2022@07:30 Req Phys: WESTON VASQUEZ Pat Loc: 07-17-2022@15:46 Img Loc: INTERVENTIONAL RADIOLOGY Service: PRIMARY CARE - MED OFFICE (Case 130 COMPLETE) IR TRANSCATH EMBOLIZATION W/ANGIO(ANI Detailed) CPT:56452 Reason for Study: embolization of RCC mets to left humerus (Case 131 COMPLETE) IR ARTERIAL EMBOLIZATION OTHER TH(ANI Detailed) CPT:01237 (Case 132 COMPLETE) IR US GUIDANCE VASCULAR ACCESS (ANI Detailed) CPT:93752 Clinical History: [place] IS NOT under investigation for COVID-19 or [...] pager listed below: User placing orders pager: [phone] LAST CREATININE 1.0 (07/13/22) Report Status: Verified Date Reported: JULY 17, 2022 Date Verified: JULY 17, 2022 Silo Painter E-Sig:/ES/MALCOM LANGLEY MD Report: RADIOLOGIST: Malcom Langley [...] angiogram and runoff. 12. Closure of right OPENSTACK CLOUD CONSULTING ARCHITECT with Angio-Seal device. HISTORY: Metastatic renal cell [...] Sheath removed over guidewire and a 5 bermudian vascular sheath advanced over guidewire into the artery. An H1 catheter was advanced along with the guidewire into the thoracic arch and the left subclavian artery was selected. Catheter and the guidewire were advanced into the left brachial artery. The 5 Guinean sheath was exchanged for a 6 Guinean sheath that was advanced into the [...] arteries. Sheath and catheters were removed and OPENSTACK CLOUD CONSULTING ARCHITECT arteriotomy was closed using Angioseal. There is patent hemostasis. No bleeding or hematoma noted. Sterile dressing applied. 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 Primary Interpreting Staff: MALCOM LANGLEY MD, INTERVENTIONAL RADIOLOGIST (Silo Painter) /MALCOM HE [facility] July 14, 2022 06:44 AM HUMERUS LEFT MINIMUM 2 VIEWS: MARYJO WAGNER [id number] -1950 M Exm Date: JULY 14, 2022@06:44 Req Phys: WESTON VASQUEZ [facility] Loc: 07-14-2022@07:13 Img Loc: MAIN X-RAY Service: PRIMARY CARE - MED OFFICE (Case [id number] COMPLETE) HUMERUS LEFT MINIMUM 2 VIEWS (RAD Detailed) CPT:64963 Reason for Study: post reduction Clinical History: Report Status: Verified Date Reported: JULY 14, 2022 Date Verified: JULY 14, 2022 Silo Painter E-Sig: Report: HUMERUS LEFT MINIMUM 2 VIEWS [...] less likely. READING PHYSICIAN: Xavier Merrill MD -[phone] 07/14/2022 5:11 PDT [facility] National Teleradiology Program [phone] (For Medical Practitioner Use Only) Attention Patients / Veterans: If you have questions or concerns about these test results, please contact your ordering provider or primary care team. Primary Interpreting Staff: RADIOLOGY,OUTSIDE SERVICE, Staff Physician / RADIOLOGY,OUTSIDE SERVICE [facility] July 13, 2022 10:07 AM HUMERUS LEFT MINIMUM 2 VIEWS: MARYJO WAGNER [id number] -1950 M Ex Date: JULY 13, 2022@10:07 Req Phys: WHITNEY ANDERSON Pat Loc: [facility] EMERGENCY DEPT WALK-IN (Re Img Loc: MAIN X-RAY Service: Unknown (Case [id number] COMPLETE) HUMERUS LEFT MINIMUM 2 VIEWS (RAD Detailed) CPT:06679 Proc Modifiers : LEFT Reason for Study: L arm pain Clinical History: [place] IS NOT under investigation for COVID-19 or is COVID-19 negative Atraumatic left upper extremity pain that is located midshaft humerus distally to the mid forearm. Clinical concern for dislocation versus fracture versus bone mets Responsible provider name and phone number to notify for critical findings if other than user placing the order and pager listed below: User placing orders pager: [phone] LAST CREATININE 0.8 (05/10/22) Report Status: Verified Date Reported: JULY 13, 2022 Date Verified: JULY 13, 2022 Silo Painter E-Sig:/SANGITA/ALBINA COWAN MD, FACR, CCD Report: EXAMINATION: [...] ALBINA COWAN MD, FACR, STAFF RADIOLOGIST (Silo Painter) /[facility] ALBINA COWAN [facility] July 13, 2022 10:07 AM ELBOW LEFT 3 OR MORE VIEWS: CARSONMARYJO ROWELL [id number] -1950 M Exm Date: JULY 13, 2022@10:07 Req Phys: WHITNEY ANDERSON Pat Loc: [facility] EMERGENCY DEPT WALK-IN (Re Img Loc: MAIN X-RAY Service: Unknown (Case [id number] COMPLETE) ELBOW LEFT 3 OR MORE VIEWS (RAD Detailed) CPT:56338 Proc Modifiers : LEFT Reason for Study: [...] pager listed below: User placing orders pager: [phone] LAST CREATININE 0.8 (05/10/22) Report Status: Verified Date Reported: JULY 13, 2022 Date Verified: JULY 13, 2022 Silo Painter E-Sig:/SANGITA/ALBINA COWAN MD, FACR, CCD Report: EXAMINATION: [...] ALBINA COWAN MD, FACR, STAFF RADIOLOGIST (Silo Painter) /ALBINA NATHAN [facility] July 13, 2022 10:07 AM FOREARM LEFT 2 VIEWS: MARYJO WAGNER [id number] -1950 M Exm Date: JULY 13, 2022@10:07 Req Phys: WHITNEY ANDERSON Pat Loc: [facility] EMERGENCY DEPT WALK-IN (Re Img Loc: MAIN X-RAY Service: Unknown (Case [id number] COMPLETE) FOREARM LEFT 2 VIEWS (RAD Detailed) CPT:18278 Proc Modifiers : LEFT Reason for Study: L arm pain Clinical History: [place] IS NOT under investigation for COVID-19 or is COVID-19 negative Atraumatic left upper extremity pain that is located midshaft humerus distally to the mid forearm. Clinical concern for dislocation versus fracture versus bone mets Responsible provider name and phone number to notify for critical findings if other than user placing the order and pager listed below: User placing orders pager: [phone] LAST CREATININE 0.8 (05/10/22) Report Status: Verified Date Reported: JULY 13, 2022 Date Verified: JULY 13, 2022 Silo Painter E-Sig:/ES/ALBINA COWAN MD, FACR, CCD Report: EXAMINATION: [...] ALBINA COWAN MD, FACR, STAFF RADIOLOGIST (Silo Painter) /ALBINA NATHAN [facility] Pathology Reports: +/- 30 days of [...] COSIGNER: URGENCY: STATUS: COMPLETED $APHDR Reporting Lab: [facility] [CLIA# [id number]] [place] [address] - - - - - - - [...] SANDOVAL STAFF PATHOLOGIST, PATHOLOGY & LABORATORY MED [facility] Signed July 21, 2022@14:37 Performing Laboratory: Surgical Pathology Report Performed By: [facility] [CLIA# [id number]] [place] [address] $FTR - - - - - - - - - - - - - - - - - - - - - - - - - - - - - - - - - - - - - - - - (End of report) JIAN SANDOVAL MD [facility] Date July 21, 2022 - - - - - - - - - - - - - - - - - - - - - - - - - - - - - - - - - - - - - - - - MARYJO WAGNER STANDARD FORM 515 ID:[id number] SEX:M :1950 AGE: 72 LOC:[facility] PATHOLOGY PRO FEE ADM:June DX:PATHOLOGIC FX LF HUMERUS PCP: Leif Balbuena MD /sangita/ JIAN SANDOVAL STAFF PATHOLOGIST, PATHOLOGY & LABORATORY MED [facility] Signed: 07/21/2022 14:37 JIAN SANDOVAL [facility] Encounter Notes: All associated encounter notes This section contains the clinical notes associated to the Encounter. Date/Time Encounter Note(s) Provider Source July 17, 2022 01:39 PM CRITICAL CARE UNIT NOTE: [facility] STAND[facility] TITLE: CRITICAL CARE UNIT NOTE DATE OF NOTE: JULY 17, 2022@13:39 ENTRY DATE: JULY 17, 2022@16:40:26 AUTHOR: SYSTEM,JOHN[employer] EXP COSIGNER: URGENCY: STATUS: COMPLETED This is a place casey only. Please see [employer] to view document. /es/ [employer] SYSTEM ICU DOCUMENT IMPORT Signed: 07/17/2022 16:40 SYSTEM,CIS-YI [facility]
--- OUTSIDE RECORDS SUMMARY | 2023-03-24 09:04 | XMS_ITS | Encounter Summary ---
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 of Vetera [facility] Address [address] [place] [address] Support Name Relationship Address Phone DOREEN WAGNER Next of Kin [address] [place] [phone] DOREEN Emergency Contact [address] [place] [phone] Insurance Providers: All historical and current [...] Name Patient's Relationship to Policy [place] HUMANA [facility] (WNR) MEDICARE ADVANTAGE [facility] (R) June 26, 2016 [id number] BERNARDJOAN PATIENT [employer]NA MCR (WNR) MEDICARE ADVANTAGE [facility] (R) June 26, 2016 [id number] 15 JOAN WAGNER KARSTEN PATIENT [employer] [facility] (WNR) MEDICARE ADVANTAGE [facility] (R) June 26, 2016 [id number] 15 JOAN WAGNER PATIENT Selected Encounter This section includes the information on record at [place] for the Encounter. Date/Time Encounter Type Encounter Description Reason Pro vider Source Sep 07, 2022 11:38 AM Outpatient Encounter DENTAL IHE Encounter Template Text not used by [place] Plan of Treatment: Future Appointments (+ 6 months) and Future Tests (+/- 45 days) The Plan of Treatment section includes future care activities for the patient from all [place] treatmentfacilities. This section includes future appointments and future orders which are active, pending or scheduled. Future Appointments This section includes appointments that were scheduled to occur 6 months from the date of the Encounter, up to a maximum of 20 appointments. The data comes from all [facility]. Appointment Date/Time Appointment Type Appointme nt Facility Name Oct 25, 2022 07:00 AM AMBULATORY - NONE ANDREINA KHOURY [facility] Oct 25, 2022 07:30 AM AMBULATORY - SURGERY SAKINA TOVAR [facility] Oct 25, 2022 09:00 AM AMBULATORY - SURGERY [facility] Active, Pending, [...] The data comes from all [facility]. Test Date/Time Test Type Test Details Facility Name Aug 07, 2022 11:23 AM Laboratory - Chemi stry Order DRUG SCREEN PANEL,URINE URINE ONCE [facility] Aug 23, 2022 10:47 AM Laboratory - Chemi stry Order URINALYSIS URINE ER [facility] Lab Results: +/- 30 days of [...] Comment Aug 24, 2022 12:[address] [facility] URINALYSIS Specimen Type: URINE No comment entered. Ordering Provider: LUCIO KIM Report Released Date/Time: Aug 24, 2022 09:34 AM Reporting Lab: [facility] [id number] Performing Lab: [facility] [id number] URINE COLOR YELLOW SPECIFIC GRAVITY 1.030 1.003-1.03 [...] t Aug 23, 2022 11:[address] [facility] PROTHROMBIN TIME/INR Specimen Type: PLASMA No comment entered. Ordering Provider: Serena ESQUIVEL Report Released Date/Time: Aug 23, 2022 10:47 AM Aug 23, 2022 11:[address] [facility] ACT PART THROMBO TIME Specimen Type: PLASMA No comment entered. Ordering Provider: Serena ESQUIVEL Report Released Date/Time: Aug 23, 2022 10:47 AM Reporting Lab: [facility] [id number] Performing Lab: [facility] [address] APTT 30.2 25.1-36.5 Aug 23, 2022 11:[address] [facility] LIPID PANEL,NON-FASTING Specimen Type: PLASMA No comment entered. Ordering Provider: Serena ESQUIVEL Report Released Date/Time: Aug 23, 2022 10:47 AM Reporting Lab: [facility] [id number] Performing Lab: [facility] [address] CHOLESTEROL 129 See_Comm en t .HDL 36 L See_Commen t LDL CALCULATION 68 See_ Commen t VLDL CALCULATION 25 See_Commen t NON HDL CHOLESTEROL 93 See_Commen t TRIG(NON FASTING) 123 See_Commen t Aug 23, 2022 11:[address] [facility] TSH W/REFLEX TO FREE T4 Specimen Type: PLASMA No comment entered. Ordering Provider: Serena ESQUIVEL Report Released Date/Time: Aug 23, 2022 10:47 AM Reporting Lab: [facility] [address] Performing Lab: [facility] [address] TSH 1.54 0.35-4.94 Aug 23, 2022 11:[address] [facility] CARDIAC TROPONIN I Specimen Type: PLASMA No comment entered. Ordering Provider: Serena ESQUIVEL Report Released Date/Time: Aug 23, 2022 10:47 AM Reporting Lab: [facility] [phone] Performing Lab: [facility] [address] CARDIAC TROPONIN I <0.028 See_Commen t Aug 23, 2022 11:[address] [facility] SED RATE Specimen Type: BLOOD No comment entered. Ordering Provider: Serena ESQUIVEL Report Released Date/Time: Aug 23, 2022 10:47 AM Reporting Lab: [facility] [phone] Performing Lab: [facility] [address] SED RATE 31 H 5-15 Aug 23, 2022 11:[address] [facility] PHOSPHORUS Specimen Type: PLASMA No comment entered. Ordering Provider: Serena ESQUIVEL Report Released Date/Time: Aug 23, 2022 10:47 AM Reporting Lab: [facility] [id number] Performing Lab: [facility] [address] PHOSPHORUS 3.9 2.3-4.7 Aug 23, 2022 11:[address] [facility] HEMOGLOBIN A1C Specimen Type: BLOOD Comment: [...] Lab: [facility] [address] Performing Lab: [facility] [address] HEMOGLOBIN A1C 4.2 4.0-6.0 Aug 23, 2022 11:[address] [facility] C-REACTIVE PROTEIN Specimen Type: SERUM No comment entered. Ordering Provider: Serena ESQUIVEL Report Released Date/Time: Aug 23, 2022 10:47 AM Reporting Lab: [facility] [address] Performing Lab: [facility] [address] C-REACTIVE PROTEIN 3.14 See_Jana t Aug 23, 2022 11:[address] [facility] COMPREHENSIVE METABOLIC PANEL+MG Specimen Type: PLASMA No comment entered. Ordering Provider: Serena ESQUIVEL Report Released Date/Time: Aug 23, 2022 10:47 AM Reporting Lab: [facility] [address] Performing Lab: [facility] [address] CREATININE 0.8 0.7-1.2 UREA NITROGEN 15 8-26 [...] t Aug 23, 2022 11:[address] [facility] CBC & DIFF Specimen Type: BLOOD Comment: Automated Differential Performed Ordering Provider: Serena ESQUIVEL Report Released Date/Time: Aug 23, 2022 10:47 AM Reporting Lab: [facility] [address] Performing Lab: [facility] [address] WBC 5.11 4.0-11.0 RBC 3.87 L 4.6-6.2 [...] 0-0.1 Aug 23, 2022 11:[address] [facility] POC CREATININE Specimen Type: BLOOD No comment entered. Ordering Provider: LAVONNE PANCHAL Report Released Date/Time: Aug 23, 2022 11:16 AM Reporting Lab: [facility] [address] Performing Lab: [facility] [address] POC CREATININE 0.8 0.6-1.3 Social History: Smoking [...] 2022 09:15 AM VA-[facility]ACCO [facility] [address] [facility] May 11, 2021 09:15 AM VA-TOBACCO FORMER USER [facility] May 11, 2021 09:15 AM VA-TOBACCO [...] 2022 01:11 PM MRI-BRAIN (P): MARYJO WAGNER [id number] Ex Date: AUG 23, 2022@13:11 Req Phys: Serena ESQUIVEL Loc: [facility] EMERGENCY DEPT WALK-IN (Re Img Loc: MRI IMAGING Service: Unknown (Case [id number] COMPLETE) MRI BRAINBRAINSTEM W & W/O CONTRA(MRI Detailed) CPT:93451 Contrast Media : Gadolinium Reason for Study: APHASIA X3 DAYS Clinical History: MRI BRAIN WITH/WITHOUT CONTRAST [place] IS NOT under investigation for COVID-19 or is COVID-19 negative Did the ordering provider speak with a water resource consultant regarding this imaging exam? Yes, Name of water resource consultant (resident or staff):Neurology Aphasia x 3 days Responsible provider name and phone number to notify for critical findings if other than user placing the order and pager listed below: User placing orders pager: [phone] [id number] LAST CREATININE 0.8 (08/23/22) Allergies: HAZELNUTS (Nov 21, 2002) Report Status: Verified Date Reported: AUG 23, 2022 Date Verified: AUG 23, 2022 Long Wall Mining Machine Tender E-Sig:/ES/TERESA SANTAMARIA MD Report: MRI BRAINBRAINSTEM [...] in the left supratentorial compartment results in dthj-zk-fyryn midline shift again measuring up to 1.4 [...] intracranial mass effect, with rightward subfalcine herniation (urnj-to-cemmp midline shift measures up to 1.4 cm) [...] Primary Interpreting Staff: TERESA SANTAMARIA MD, RADIOLOGIST (Long Wall Mining Machine Tender) /[facility] [place]NOTE 2] TERESA SANTAMARIA [facility] Aug 23, 2022 12:03 PM CTA CAROTID/COW (P ): MARYJO WAGNER [id number] -1950 M Exm Date: AUG 23, 2022@12:03 Req Phys: Serena ESQUIVEL Pat Loc: [facility] EMERGENCY DEPT WALK-IN (Re Img Loc: CT IMAGING Service: Unknown (Case [id number] COMPLETE) CTA HEAD W/POSTPROCESSING (CT Detailed) CPT:79710 Contrast Media : unspecified contrast media Reason for Study: APHASIAx3 days (Case [id number] COMPLETE) CTA NECK (CT Detailed) CPT:74839 Contrast Media : unspecified contrast media Non-ionic [...] pager listed below: User placing orders pager: [phone] [id number] LAST 3: Collection DT Specimen Test Name [...] PLASMA ESTIMATED GFR(eGF >60 Ref: >=60 Allergies: ([place] only) HAZELNUTS (Nov 21, 2002) To see allergies from all [place] locations click Reports tab>Remote Data>All Available Sites>Clinical Reports>Allergies. Report Status: Verified Date Reported: AUG 23, 2022 Date Verified: AUG 23, 2022 [employer] Wall Mining Machine Tender E-Sig:/ES/TERESA SANTAMARIA MD Report: CTA HEAD [...] contribute to left cerebral white matter edema. Atzx-aa-whotf midline shift measures up to 1.4 cm. [...] left lateral ventricle. Rightward subfalcine herniation, with owuv-nh-vfzaj midline shift measuring up to 1.4 cm. [...] Primary Interpreting Staff: TERESA SANTAMARIA MD, RADIOLOGIST ([employer] Wall Mining Machine Tender) /[facility] [place]NOTE 2] TERESA SANTAMARIA [facility] Aug 23, 2022 09:29 AM ELBOW LEFT 3 OR MO RE VIEWS: MARYJO WAGNER [id number] -[id number] M Ex Date: AUG 23, 2022@09:29 Req Phys: LEIF PANDA Loc: [facility] ORTHO OT KENA 2F (Req'g Img Loc: MAIN X-RAY Service: Unknown (Case [id number] COMPLETE) ELBOW LEFT 3 OR MORE VIEWS (RAD Detailed) CPT:97982 Reason for Study: postop Clinical History: [place] IS NOT under investigation for COVID-19 or is COVID-19 negative postop Responsible provider name and phone number to notify for critical findings if other than user placing the order and pager listed below: User placing orders pager: [phone] LAST CREATININE 0.9 (07/19/22) Report Status: Verified Date Reported: AUG 23, 2022 Date Verified: AUG 23, 2022 [employer] Wall Mining Machine Tender E-Sig:/ES/ALBINA LEE MD Report: Exam: Left elbow [...] Primary Interpreting Staff: ALBINA LEE MD, RADIOLOGIST (Long Wall Mining Machine Tender) /[facility] Encounter Notes: All associated encounter notes This section contains the clinical notes associated to the Encounter. Date/Time Encounter Note(s) Provider Source Sep 07, 2022 11:38 AM REPORT OF CONTACT: LOCAL TITLE: PATIENT CONTACT NOTE STANDARD TITLE: REPORT OF CONTACT DATE OF NOTE: SEP 07, 2022@11:38 ENTRY DATE: SEP 07, 2022@11:38:07 AUTHOR: EFE GARCIA EXP COSIGNER: URGENCY: STATUS: COMPLETED Patient contact Name of [place]: BERNARDMARYJO CONDE Name/Relationship of Contact if other than [place]: Date & Time of Contact: Aug@11:38 Type of Contact: Other Reason for Contact: Received treatment letter from [facility] director behavioral health. Dr. Joby Galicia placed straumann implants in sites #3 and #19 on 06/22/2022 #3 4.8x8 healing cap 6x4 #19 4.1x10 healing cap 6x4 On 08/11/2022 uncovery of #19 and torque tested completed. Ready for rastafari. Sent to scanning. /sangita/ EFE GARCIA DENTAL COMPRESSOR STATION ENGINEER CHIEF Signed: 09/07/2022 11:[address] [facility]
--- OUTSIDE RECORDS SUMMARY | 2023-03-24 09:05 | XMS_ITS | Encounter Summary ---
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 of Vetera Affairs Address [address] [place] [address] Support Name Relationship Address Phone DOREEN WAGNER Next of Kin [address] [place] [phone] DOREEN Emergency Contact [address] [place] [address] Insurance Providers: All historical and current [...] Name Patient's Relationship to Policy [place] [employer]NA [facility] (WNR) MEDICARE ADVANTAGE [facility] (R) June 26, 2016 [id number] JOAN WAGNER KARSETN PATIENT [employer] [facility] (WNR) MEDICARE ADVANTAGE [facility] ([facility]) June 26, 2016 [id number] [phone] JOAN WAGNER KARSTEN PATIENT [employer] [facility] (WNR) MEDICARE ADVANTAGE [facility] (R) June 26, 2016 [id number] 15 JOAN WAGNER PATIENT Selected Encounter This section includes the information on record at [place] for the Encounter. Date/Time Encounter Type Encounter Description Reason Pro vider Source Jan 31, 2023 11:59 AM Outpatient Encounter DENTAL IHE Encounter Template Text not used by [place] Social History: Smoking Status (Most current) and [...] Facil ity May 10, 2022 09:15 AM [place]-TO[facility] YRS [facility] May 11, 2021 09:15 AM [place]-TOBACCO QUIT [facility] YRS OR MORE [facility] [...] Mar 18, 2003 ADVANCE DIRECTIVE FARHAT MELGAR [facility] Encounter Notes: All associated encounter notes This section contains the clinical notes associated to the Encounter. Date/Time Encounter Note(s) Provider Source Jan 31, 2023 11:59 AM REPORT OF CONTACT: LOCAL TITLE: PATIENT CONTACT NOTE STANDARD TITLE: REPORT OF CONTACT DATE OF NOTE: JAN 31, 2023@11:59 ENTRY DATE: JAN 31, 2023@11:59:36 AUTHOR: WILMAN KELLER EXP COSIGNER: URGENCY: STATUS: COMPLETED Patient contact Name of [place]: MARYJO WAGNER Name/Relationship of Contact if other than : Date & Time of Contact: Jan@11:59 Type of Contact: Telephone Reason for Contact: Writter called to schedule a cleaning, declined. Writter dispositioning [facility] DENTAL HYG RED 60 MIN orders from 12/12/21. /sangita/ WILMAN KELLER ADVANCED MSA Signed: 01/31/2023 12:00 WILMAN KELLER [facility]
--- OUTSIDE RECORDS SUMMARY | 2023-03-24 09:05 | XMS_ITS | Encounter Summary ---
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 Vetera [facility] Organization Department of Vetera ns [facility] Address [address] [place] [address] Support Name Relationship Address Phone DOREEN WAGNER Next of Kin [address] [place] [phone] DOREEN Emergency Contact [phone] [place] [phone] Insurance Providers: All historical and current [...] Patient's Relationship to Policy [place] [facility] MEDICARE [facility] ([facility]) June 26, 2016 [id number] 15 JOAN WAGNER PATIENT HUMANA [facility] (WN) MEDICARE ADVANTAGE [facility] ([facility]) June 26, 2016 [id number] [phone] [id number] JOAN WAGNER PATIENT [employer] [facility] (WNR) MEDICARE ADVANTAGE [facility] ([facility]) June 26, 2016 [id number] [phone] CARSONJOAN ROWELL PATIENT Selected Encounter This section includes the information on record at [place] for the Encounter. Date/Time Encounter Type Encounter Description Reason Provider Source Oct 25, 2022 09:00 AM OFFICE O/P EST MOD 30-39 MIN UROLOGY CLINIC ICD-10-CM C64.2 Malignant neoplasm of left kidney, except renal pelvis ALBERTO MCCLELLAND Encounter Template Text not used by [place] Assessments - Encounter Diagnoses This section includes the primary and secondary diagnoses documented for the Encounter. Date/Time Primary/Secondary Diagnosis Diagnosis Name Provider Source Oct 25, 2022 09:17 AM PRIMARY Malignant neoplasm of left kidney, except renal pelvis ALBERTO MCCLELLAND [facility] Lab Results: +/- 30 days of [...] Result - Unit Interpretation Reference Range Comment Oct 25, 2022 06:50 AM [facility] PSA Specimen Type: SERUM No comment entered. Ordering Provider: JOSY MURRY Report Released Date/Time: Apr 26, 2022 10:29 AM Reporting Lab: [facility] [id number] Performing Lab: [facility] [id number] PSA 7.53 H <4.00 Vital Signs: All taken on the encounter date This section contains inpatient and outpatient Vital Signs collected on the date of the Encounter. Date/Time Temperature Pulse Blood Pressure Respiratory Rate SP02 Pain Height Weight Body Mass Index Source Oct 25, 2022 07:40 AM 97.8 F 73 /min 126/71 mm[Hg] [facility] Social History: Smoking Status (Most [...] place. Date/Time Current Smoking Status Comment Adore can May 10, 2022 09:15 AM VA-TOBACCO QUIT 15 YRS OR MORE [facility] Tobacco Use History This section includes a history of the smoking, or tobacco-related health factors, that were collected on or before the date of the Encounter. The data comes from the [place] facility where the Encounter took place. Date/Time Smoking Status/Tobacco Use Comment F acility May 10, 2022 09:15 AM VA-TOBACCO QUIT 15 YRS OR MORE [facility] May 11, 2021 09:15 AM VA-TOBACCO FORMER USER [facility] May 11, 2021 09:15 AM VA-TOBACCO QUIT 15 YRS OR MORE [facility] Nov 22, 2018 01:36 PM VA-TOBACCO NEVER USED [facility] Nov 12, 2017 07:35 AM FORMER TOBACCO USER 7Y OR GREATE R [facility] Nov 06, 2016 09:05 AM FORMER TOBACCO USER 7Y OR GREATE R [facility] Sep 27, 2015 09:42 AM FORMER TOBACCO USER 7Y OR GREATE R [facility] Sep 25, 2014 07:55 AM FORMER TOBACCO USER 7Y OR GREATE R [facility] Sep 08, 2013 07:48 AM FORMER TOBACCO USER 7Y OR GREATE R [facility] July 09, 2012 09:20 AM FORMER TOBACCO USE >1Y <7Y [facility] Jun 06, 2011 07:53 AM FORMER TOBACCO USE >1Y <7Y [facility] Sep 09, 2009 03:03 PM FORMER TOBACCO USE >1Y <7Y [facility] Aug 11, 2008 01:06 PM FORMER TOBACCO USE <1Y [facility] Sep 19, 2007 02:52 PM CURRENT TOBACCO USER [facility] Sep 03, 2006 03:32 PM CURRENT TOBACCO USER [facility] Advance Directives: All historical and current Section Date Range: From patient's date of to the date document was created. This section includes ALL of a patient's completed or amended [place] Advance and Rescinded Directives. The entries below indicate that a directive exists for the patient, but an actual copy is not included with this document. The data comes from all [place] facilities. Date Advance Directives Provider Source Mar 18, 2003 ADVANCE DIRECTIVE FARHAT MELGAR [facility] Encounter Notes: All associated encounter notes This section contains the clinical notes associated to the Encounter. Date/Time Encounter Note(s) Provider Source Oct 25, 2022 09:04 AM UROLOGY ATTENDING NOTE: LOCAL TITLE: UROLOGY CLINIC NOTE STANDARD TITLE: UROLOGY ATTENDING NOTE DATE OF NOTE: OCT 25, 2022@09:04 ENTRY DATE: OCT 25, 2022@09:05:41 AUTHOR: ALBERTO MCCLELLAND EXP COSIGNER: URGENCY: STATUS: COMPLETED CC: Metastatic renal cell carcinoma and clinically localized intermediate risk prostate cancer HPI: This is a 72 y/o MALE with h/o of metastatic kidney cancer (dx 2018 with biopsy) on observation, prostate cancer (dx 2017)on WW, and retention on CIC BID. Since his last follow-up with neurology, he was seen oncology and medical oncology reviewed treatment options, notably immunotherapy. After extensive discussion, the patient and his have deferred any treatment for his metastatic renal cell carcinoma. Urology has therefore discontinued routine imaging studies. 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 Thankfully at this time he states he is feeling well without active cancer symptoms. PMH: Active problems - Computerized Problem List is the source for the followin. OBESITY, UNSP 2. LIVER CHEM, ABNORMAL 3. Adjustment Disorder with Mixed Anxiety and Depressed Mood 4. Other and unspecified Sleep Apnea 5. Elevated Prostate Specific Antigen (PSA) 6. Dysmetabolic Syndrome X 7. Polyp of colon (SNOMED CT 34118163) - 2012, repeat in 7-10 years, see report 8. Malignant tumor of prostate (SNOMED CT 832000370) 9. Benign hypertension 10. Retention of urine [...] (11/12/17 06:41) 14.20 H PLASMA (07/06/17 08:42) Most recent PSA 10/25/2022: 7.5 PHYSICAL EXAM General: well-nourished, no acute distress Neuro: alert and oriented HEENT: neck symmetrical, normal conjunctivae Resp: non-labored breathing, no use of accessory muscles Skin: no rash, jaundice, or cyanosis CV: well-perfused ASSESSMENT/PLAN: ---- Pt is a 72 MALE with history of metastatic renal cell carcinoma and intermediate risk prostate cancer, deferring active treatment for either malignancy. I had an extensive discussion with the patient and his regarding management options for both malignancies. Given his symptomatic metastatic disease, if he were to elect for systemic therapy I recommended prioritizing his renal cell carcinoma. We discussed immunotherapy and the differences between that and chemotherapy, most notably the side effect profiles. I again offered follow-up with our colleagues in Medical Oncology to have a more extensive discussion, but the patient reiterated that he is not interested in any ongoing treatment for either malignancy. In light of this, we are in agreement to forego ongoing follow-up with urology. They will reach out on an as-needed basis at any time in the future if they elect for systemic therapy or if they have other urologic complications. The patient and his expressed understanding and were in agreement with this plan. They understand that they can call at anytime for follow-up and to initiate treatment for his known disease if they desire. Total time of visit noted below including chart review, examination, and documentation. [] 10-19 mins [X] 20-29 mins [] 30-39 mins [] >40mins /sangita/ Alberto Mcclelland MD, PhD Staff Surgeon Signed: 10/25/2022 09:17 ALBERTO MCCLELLAND [facility]
--- OUTSIDE RECORDS SUMMARY | 2023-03-24 09:05 | XMS_ITS | Encounter Summary ---
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 of Vetera [facility] Address [address] [place] [id number] Support Name Relationship Address Phone DOREEN WAGNER Next of Kin [address] [place] [phone] DOREEN Emergency Contact [address] [place] [phone] Insurance Providers: All historical and current [...] to Policy [place] [employer] [facility] ([facility]) MEDICARE ADVANTAGE [facility] ([facility]) June 26, 2016 [id number] JOAN WAGNER KARSTEN PATIENT [employer] [facility] ([facility]) MEDICARE ADVANTAGE [facility] ([facility]) June 26, 2016 [id number] [phone] JOAN WAGNER KARSTEN PATIENT [employer] [facility] ([facility]) MEDICARE ADVANTAGE [facility] ([facility]) June 26, 2016 [id number] [phone] JOAN WAGNER PATIENT Selected Encounter This section includes the information on record at [place] for the Encounter. Date/Time Encounter Type Encounter Description Reason Provider Source Oct 25, 2022 07:30 AM TOPICAL FLUORIDE [facility] ICD-10-CM K08.409 Partial loss of teeth, unspecified cause, unspecified class ABBIE SCHWARZ [facility] Encounter Template Text not used by [place] Assessments - Encounter Diagnoses This section includes the primary and secondary diagnoses documented for the Encounter. Date/Time Primary/Secondary Diagnosis Diagnosis Name Provider Source Oct 25, 2022 08:03 AM PRIMARY Partial loss of teeth, unspecified cause, unspecified class ABBIE SCHWARZ [facility] Oct 25, 2022 08:03 AM SECONDARY Deposits [accretions] on teeth ABBIE SCHWARZ [facility] Lab Results: +/- 30 days [...] Range Comment Oct 25, 2022 06:50 AM [facility] PSA Specimen Type: SERUM No comment entered. Ordering Provider: JOSY MURRY Report Released Date/Time: Apr 26, 2022 10:29 AM Reporting Lab: [facility] [id number] Performing Lab: [facility] [id number] PSA 7.53 H <4.00 Vital Signs: All taken on the encounter date This section contains inpatient and outpatient Vital Signs collected on the date of the Encounter. Date/Time Temperature Pulse Blood Pressure Respiratory Rate SP02 Pain Height Weight Body Mass Index Source Oct 25, 2022 07:40 AM 97.8 F 73 /min 126/71 mm[Hg] [facility] Social History: Smoking Status (Most [...] 10, 2022 09:15 AM VA-TOBACCO FORMER USER [facility] Tobacco Use History This section includes a history of the smoking, or tobacco-related health factors, that were collected on or before the date of the Encounter. The data comes from the [place] facility where the Encounter took place. Date/Time Smoking Status/Tobacco Use Comment F acility May 10, 2022 09:15 AM CO-TOBACCO QUIT 15 YRS OR MORE [facility] May 11, 2021 09:15 AM VA-TOBACCO FORMER USER [facility] May 11, 2021 09:15 AM VA-TOBACCO QUIT 15 YRS OR MORE [facility] Nov 22, 2018 01:36 PM VA-TOBACCO NEVER USED [facility] Nov 12, 2017 07:35 AM FORMER TOBACCO USER 7Y OR GREATE R [facility] Nov 06, 2016 09:05 AM FORMER TOBACCO USER 7Y OR GREATE R [facility] Sep 27, 2015 09:42 AM FORMER TOBACCO USER 7Y OR GREATE R [facility] Sep 25, 2014 07:55 AM FORMER TOBACCO USER 7Y OR GREATE R [facility] Sep 08, 2013 07:48 AM FORMER TOBACCO USER 7Y OR GREATE R [facility] July 09, 2012 09:20 AM FORMER TOBACCO USE >1Y <7Y [facility] Jun 06, 2011 07:53 AM FORMER TOBACCO USE >1Y <7Y [facility] Sep 09, 2009 03:03 PM FORMER TOBACCO USE >1Y <7Y [facility] Aug 11, 2008 01:06 PM FORMER TOBACCO USE <1Y [facility] Sep 19, 2007 02:52 PM CURRENT TOBACCO USER [facility] Sep 03, 2006 03:32 PM CURRENT TOBACCO USER [facility] Advance Directives: All historical and current Section Date Range: From patient's date of to the date document was created. This section includes ALL of a patient's completed or amended [place] Advance and Rescinded Directives. The entries below indicate that a directive exists for the patient, but an actual copy is not included with this document. The data comes from all [place] facilities. Date Advance Directives Provider Source Mar 18, 2003 ADVANCE DIRECTIVE FARHAT MELGAR [facility] Encounter Notes: All associated encounter notes This section contains the clinical notes associated to the Encounter. Date/Time Encounter Note(s) Provider Source Oct 25, 2022 07:59 AM DENTISTRY NOTE: LOCAL TITLE: Dental Clinic Note STANDARD TITLE: DENTISTRY NOTE DATE OF NOTE: OCT 25, 2022@07:59 ENTRY DATE: OCT 25, 2022@08:03:10 AUTHOR: MAGO SCHWARZ EXP COSIGNER: URGENCY: STATUS: COMPLETED Patient Name: MARYJO WAGNER, : 1950, Age: 72 Visit: S: Oct 25, 2022@07:30 [facility]. Primary PCE Diagnosis: K08.409 (Partial loss of teeth, unspecified cause, unspecified class). Dental Category: 15-OPC, Class IV. Treatment Status: Active. Completed Care: (D6057) CUSTOM ABUTMENT. Tooth: 19. DX: K08.409 Partial Loss of Teeth, unspecified Cause, unspecified Class (D2740) CROWN PORCELAIN/CERAMIC SUBS. Tooth: 19. DX: K08.409 Partial Loss of Teeth, unspecified Cause, unspecified Class (D2980) CROWN REPAIR MATERIAL FAIL. Tooth: 19. DX: K08.409 Partial Loss of Teeth, unspecified Cause, unspecified Class (D1206) TOPICAL FLUORIDE [facility]ISH. DX: K03.6 Deposits [Accretions] on Teeth - - - - - - - - - - - - - - - - - - - - - - - - - - - - - - Pt Presents to the dental clinic for Delivery of Implant [place] #19 Pt identity verified with SSN and . CC: None HPI: Pt presents for delivery of #19 crown. Dental pain scale: 0/10 Medical history: Reviewed [...] verified for sterility by the dentist and assistant district attorney prior to their use. O: Implant #19 Company: [employer] Size:4.8: A: #19 integrated implant P: Anesthetic: None Patient was given informed consent and treatment options regarding today's procedure. Patient's questions were addressed and the patient verbalized an understanding. A time out was taken prior to the procedure to verify correct patient, correct procedure and correct site. #19 implant healing abutment removed. [place]/abutment were luted together chairside with 3M RelyX Luting cement. [place]/abutment was inserted. Margins, contacts, and occlusion were evaluated. No adjustments were needed. Implant was torqued to 35Ncm. Timothy tape used to cover screw access. 3M Filtek supreme ultimate flowable composite used to occlude screw access. Occlusion checked and adjusted as needed. Pt happy with esthetics and occlusion. Rx toothpaste mailed home to pt, per fluoride indicator prompt. Pt reported at last apt he is looking into hospice options due to metastatic cancer. Pt did not state today any updates. Prognosis: good Start: 729 End: 749 Bpm Developer: Sarah RTC: adj PRN Exam PRN Demetra, [id number] /sangita/ MAOG SCHWARZ DDS STAFF DENTIST Signed: 10/25/2022 08:03 MAGO SCHWARZ [facility]
--- OUTSIDE RECORDS SUMMARY | 2023-03-24 09:06 | XMS_ITS | Encounter Summary ---
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 of Vetera ns Affairs Address [address] [place] [address] Support Name Relationship Address Phone DOREEN WAGNER Next of Kin [address] [place] [phone] DOREEN Emergency Contact [address] [place] [address] Insurance Providers: All historical and current [...] Relationship to Policy [place] [employer]NA [facility] ([facility]) MEDICARE ADVANTAGE [facility] ([facility]) June 26, 2016 [id number] JOAN WAGNER KARSTEN PATIENT [employer] [facility] ([facility]) MEDICARE ADVANTAGE [facility] (WNR) June 26, 2016 [id number] 15 JOAN WAGNER KARSTEN PATIENT [employer] [facility] ([facility]) MEDICARE ADVANTAGE [facility] ([facility]) June 26, 2016 [id number] JOAN WAGNER PATIENT Selected Encounter This section includes the information on record at [place] for the Encounter. Date/Time Encounter Type Encounter Description Reason Pro vider Source Feb 03, 2023 08:55 AM Outpatient Encounter ORTHO/JOINT SURG IHE Encounter Template Text not used by [place] Social History: Smoking Status (Most current) and Tobacco Use (All prior to encounter date) This section includes the most current, and the historical, smoking and tobacco- related health factors from the [place] facility where the Encounter took place. Current Smoking Status This section includes the most current smoking, or tobacco-related health factor, from the [place] facility where the Encounter took place. Date/Time Current Smoking Status Comment Facil ity May 10, 2022 09:15 AM VA-TOBACCO FORMER USER [facility] Tobacco Use History This section includes a history of the smoking, or tobacco-related health factors, that were collected on or before the date of the Encounter. The data comes from the [place] facility where the Encounter took place. Date/Time Smoking Status/Tobacco Use Comment F acility May 10, 2022 09:15 AM VA-TOBACCO QUIT 15 YRS OR MORE [facility] May 11, 2021 09:15 AM VA-TOBACCO FORMER USER [facility] May 11, 2021 09:15 AM [facility]-TO[facility]ACCO QUIT [facility] YRS [facility] MORE [facility] [...] ALL of a patient's completed or amended [place] Advance and Rescinded Directives. The entries below indicate that a directive exists for the patient, but an actual copy is not included with this document. The data comes from all [facility]. Date Advance Directives Provider Source Mar 18, 2003 ADVANCE DIRECTIVE FARHAT MELGAR [facility] Encounter Notes: All associated encounter notes This section contains the clinical notes associated to the Encounter. Date/Time Encounter Note(s) Provider Source Feb 03, 2023 08:55 AM REPORT OF CONTACT: LOCAL TITLE: APPOINTMENT SCHEDULING NOTE STANDARD TITLE: REPORT OF CONTACT DATE OF NOTE: FEB 03, 2023@08:55 ENTRY DATE: FEB 03, 2023@08:55:29 AUTHOR: ALLYSSA RICARDO EXP COSIGNER: URGENCY: STATUS: COMPLETED Attempted to schedule Return to clinic ([facility]) Contact attempt made to [facility] 1st attempt Telephone 2nd attempt Letter - Sent letter by regular [place] mail to address on file: MARYJO WAGNER [address] [place] [phone] Disposition order request after Jan Left message on voice mail to call back to this number [phone] If [facility] calls back, schedule appt for: Patient advised to follow-up with PCP. Return to clinic in orthopedics in 6 weeks for 3 months postop check with repeat x-rays. /sangita/ ALLYSSA RICARDO LPN LICENSED PRACTICAL NURSE Signed: 02/03/2023 09:05 ALLYSSA RICARDO [facility]
== END 2023-03-17 04:08 | disposition home or self-care (01) ==
PROVIDERS: Visit Provider Internal Medicine
DX: R42 Dizziness and giddiness (principal)
CPT/HCPCS: A0998